=== PATIENT | male | born 1945 | race Caucasian/White ===

== ENCOUNTER 2019-04-27 13:27 | Inpatient (IN) | payer MEDICARE, MEDICAID, SELFPAY ==
[2019-04-27] VITALS (42 sets, daily range): BP systolic 133–163; BP diastolic 68–97; PULSE 65–97; RESP 10–22; TEMP 36.9–37; O2SAT 89–100
[2019-04-27 13:58] LABS: Abs Immature Grans 0.09 k/cumm (0.0-0.09); Absolute Basophil Count 0.04 k/cumm (0.0-0.2); Absolute Eosinophil Count 0.05 k/cumm (0.0-0.7); Absolute Lymphocyte Count 1.57 k/cumm (1.2-3.4); Absolute Monocyte Count 0.55 k/cumm (0.11-0.7); Absolute Neutrophil Count 3.61 k/cumm (1.2-6.7); Basophils % 0.7; Eosinophils % 0.8; HCT 29.6 % (40.0-50.0); HGB 9.3 g/dL (13.5-17.5); Immature Grans % 1.5; Lymphocytes % 26.6; Mean Corp. HGB Concentration 31.4 g/dL (32.0-36.0); Mean Corpuscular Hemoglobin 28.8 pg (27.0-33.0); Mean Corpuscular Volume 91.6 fL (80-95); Mean Platelet Volume 9.6 fL (8.0-11.0); Monocytes % 9.3; Neutrophils % 61.1; Platelet Count 264 x1000/uL (130-400); RBC 3.23 m/cumm (4.50-6.00); RBC Distribution Width 18.5 % (11.8-14.1); White Blood Cell Count 5.91 k/cumm (4.4-10.8)
--- NOTE | 2019-04-27 14:14 | W.ED.GENAD ---
Discharge Plan Disposition Patient Disposition: [facility] INPATIENT Condition: Stable Discharge Details Clinical Impression: Failure to thrive, Increased anion gap metabolic acidosis Primary Care Provider: None,None ED Provider: Marquez Henning Medical Decision Making <Khadar Richards MD - Last Filed: 04/27/19 15:02> 73-year-old male alcoholic presents from home after telling his brother that I cannot do it anymore. He notes that he has generalized weakness, poor self home care, ongoing daily use of alcohol and cigarettes. He states made him feel depressed and at times suicidal but he denies specific plan. He is mildly hypertensive at 163/97 with a pulse of 92. He is somewhat disheveled and poorly kept but his exam is otherwise notable for bilateral rhonchi and wheeze. Differential diagnosis includes electrolyte abnormalities, COPD exacerbation, pneumonia. Must exclude occult IA. Patient placed in a case monitor, fluids initiated, and a DuoNeb updraft and referred for laboratories and chest x-ray. Signed out to Dr. Henning pending patient's final diagnostics and reevaluation. ECG Data Attestation: I personally reviewed and interpreted this ECG (s) as follows: Interpretation: Normal sinus rhythm with a rate of 85, QRS is narrow, no ST segment changes <Marquez Henning MD - Last Filed: 04/27/19 20:58> pt remains stable, he does voice SI to me so I palced an order for cpso. HE remains hd stable. He does have significant general weakness on exam otherwise nothing focal. Labs show log mag and K. HE is having epigastric burning and states he has gastritis/gerd and has no tenderness on exam so likely this is the cause of his symptoms. Will order reflux. He would like something for sleep, will order low dose lorazepam. HE has continued anion gap acidosis. He appears dehydrated so feel it is likely from alcoholic ketosis and dehydration. Will order more fluids. Will see if we have bed availability for medical admissio shawna he can't be medically cleared due to his anion gap acidosis. spoke with Dr. Rosales who agrees with admission to [facility] for failure to thrive and anion gap acidosis HPI <Khadar Richards MD - Last Filed: 04/27/19 15:02> General Mode of arrival: ambulatory. Date/Time Provider Initiated Documentation: 04/27/19 14:01. Limitations to Documentation: no limitations. Information obtained by: patient. History of Present Illness 73 year old M presents to the emergency department with the chief complaint of Generalized weakness and alcohol abuse, described as moderate, Quality is described as dull and constant, and is localized to the abdomen. Patient reports no radiation. Patient started experiencing this hour(s) and it has been constant. No relieving factors improve symptom(s), No exacerbating factors reported . Patient notes loss of appetite and weakness. General Stated Complaint: GenMedical JENNA: 3 Review of Systems <Khadar Richards MD - Last Filed: 04/27/19 15:02> Review of Systems 6 systems reviewed and otherwise negative. Denies recent fall. He states he is depressed. Sometimes becoming suicidal PFSH <Khadar Richards MD - Last Filed: 04/27/19 15:02> Social History Alcohol Intake: current Alcohol Intake frequency: 3 or more drinks per day Substance use type: does not use Do you feel safe at home: Yes Do you feel safe in your relationship?: Yes Exam <Khadar Richards MD - Last Filed: 04/27/19 15:02> Narrative Exam Narrative: GEN: awake, alert, oriented 3. Pleasant, poorly groomed, interactive. HEAD: Normocephalic, atraumatic ENT: Mucous membranes moist, oropharynx unremarkable, External ear exam unremarkable EYES: PERRL, EOMI NECK: Full ROM, no DIANE, no menigismus CHEST/RESP: Nontender, bilateral wheeze and rhonchi CARDIOVASCULAR: RRR, no murmur, rub hadley. 2+ Rad pulse bilateral ABDOMEN: Soft, nontender, no mass. +Bowel sounds EXT: Full ROM, no edema, no rash Neuro: Grossly normal neurologic exam, conversant, interactive. Psych: Speech fluent, thoughts congruent, affect normal Course <Khadar Richards MD - Last Filed: 04/27/19 15:02> Vital Signs Respiratory Rate 04/27/19 13:27 Temperature 37.0 C 04/27/19 13:39 Temperature Source Temporal Artery Scan 04/27/19 13:39 Pulse 84 04/27/19 14:01 Pulse 82 04/27/19 14:01 Respiratory Rate 12 04/27/19 14:01 Respiratory Effort 04/27/19 13:39 Blood Pressure 158/92 H 04/27/19 14:01 Blood Pressure Mean 109 04/27/19 14:01 Pulse Oximetry 100 04/27/19 14:00 Oxygen Delivery Method Room Air 04/27/19 13:39 Oxygen Flow Rate 0 04/27/19 13:39 Sign Out <Khadar Richards MD - Last Filed: 04/27/19 15:02> Sign Out Data: Sign Out Comment: FOllowup diagnostics, repeat evaluation Last updated by Khadar Richards MD at 04/27/19 15:03
--- NOTE | 2019-04-27 14:16 | DI.RAD_ITS ---
SYMPTOM/DIAGNOSIS: COUGH, SOB, ALCOHOLISM CHEST X-RAY: Frontal views. No priors. The heart is normal in size. The lungs are clear. The mediastinal structures and pleura appear intact. CONCLUSION: Normal chest.
[2019-04-27 14:18] LABS: Anisocytosis 1+; Diff Comment RBC Morph Reviewed; Hypochromasia 2+; Polychromasia Present
[2019-04-27] MEDS: Albuterol/Ipratropium 3 ML UPD VIAL UPD (14:29)
[2019-04-27 14:36] LABS: ALT 76 U/L (12-78); AST 141 U/L (15-37); Albumin 3.7 g/dL (3.4-5.0); Alkaline Phosphatase 77 U/L (46-116); Anion Gap 19.4 mmol/L (3-11); BUN 27 mg/dL (7-18); Bilirubin, Total 0.6 mg/dL (0.2-1.0); CO2 21.6 mmol/L (21.0-32.0); CREATININE 1.64 mg/dL (0.70-1.30); Calcium 8.6 mg/dL (8.5-10.1); Chloride 99 mmol/L (98-107); Glucose 81 mg/dL (70-100); Potassium 3.4 mmol/L (3.5-5.1); Sodium 140 mmol/L (136-145)
[2019-04-27 14:41] LABS: Troponin I < 0.05 ng/mL (0.00-0.06)
[2019-04-27] MEDS: MAGNESIUM SULFATE 8.12 MEQ, MULTIVITAMIN 10 ML, THIAMINE 100 MG, FOLIC ACID 1 MG in Nor... 168.867 MG IV (15:22)
--- NOTE | 2019-04-27 16:57 | DI.VRAD_ITS ---
EXAM: XR Chest, 2 Views EXAM DATE/TIME: 04/27/2019 2:18 PM CLINICAL HISTORY: 73 years old, male; Other: Cough and shortness of breath. Alcholism TECHNIQUE: Imaging protocol: XR of the chest, 2 views. COMPARISON: No relevant prior studies available. FINDINGS: Lungs: Unremarkable. No consolidation. Pleural space: Unremarkable. No pleural effusion. No pneumothorax. Heart/Mediastinum: Unremarkable. No cardiomegaly. Vasculature: Atherosclerosis. Bones/joints: Unremarkable. IMPRESSION: No acute finding. Dictated and Authenticated by: Isaias Rivas MD. Ordering:GUSTAVO Rubalcava MD
[2019-04-27 17:01] LABS: ETHANOL BLOOD 153.6 mg/dL (<3); Magnesium 1.2 mg/dL (1.8-2.4); NT-proBNP 425 pg/mL; TSH 0.87 uIU/mL (0.36-3.74)
[2019-04-27 17:55] LABS: ALT 63 U/L (12-78); AST 110 U/L (15-37); Albumin 3.1 g/dL (3.4-5.0); Alkaline Phosphatase 61 U/L (46-116); Anion Gap 19.8 mmol/L (3-11); BUN 24 mg/dL (7-18); Bilirubin, Total 0.3 mg/dL (0.2-1.0); CO2 22.2 mmol/L (21.0-32.0); CREATININE 1.48 mg/dL (0.70-1.30); Calcium 7.6 mg/dL (8.5-10.1); Chloride 101 mmol/L (98-107); Estimated GFR 46.72 (mL/min/1.73m2); Glucose 60 mg/dL (70-100); Potassium 3.1 mmol/L (3.5-5.1); Sodium 143 mmol/L (136-145)
[2019-04-27] MEDS: Ondansetron 4 MG/2 ML VIAL (18:21)
[2019-04-27] MEDS: Normal Saline 1,000 ML 150 ML IV ×2 (18:22→18:30)
--- NOTE | 2019-04-27 19:29 | NUR.NOTE ---
Nursing Note: This scribe arrived on unit at 1820 and assumed care for this patient from previous nurse. Pt was sitting on side of stretcher with brother in trauma room. Pt was pending results for routine labs and pt stated that he would like to receive assistance as he cannot take care of himself at home. Pt is covered in dry fecal matter and his clothes heavily soiled. Pt changed into a pull up as he states sometimes he can't make it to the bathroom in time and into disposable safety clothes. Attempted to scrub patient with cleansing bath wipes. Pt states he hasn't been able to shower himself and that he is afraid to. Pt does admit that he is suicidal but states he doesn't have a plan. He states these thoughts have been ongoing and attributes to the heavy drinking he has been doing. Pt states he lives by himself and that his apartment is very unkempt. Pt denies hallucinations, headache, and no tremors felt. Pt denies having ever tried self harm, no prior attempts. Pt offered food and drink, but pt refused this. Pt moved into a safety room with permission and medical clearance of , with permission to remove from continuous monitoring. Pt is with job coach/job developer at this time. Pending U/A and NEKHS assessment. NOTE: Patient gave a large wad of kee from his rocio pocket to his brother who also took pt's wallet and pt's keys with pt's permission home. This scribe witnessed the exchange and a verbal communication that the brother will go pay the patient's rent with the kee.
[2019-04-27] MEDS: Pantoprazole 40 MG VIAL IVP (20:05)
[2019-04-27] MEDS: LORazepam 2 MG/ML VIAL 0.5 MG IVP (20:06)
[2019-04-27 20:34] LABS: Bilirubin Negative (Negative); Blood Negative (Negative); Clarity Clear (Clear); Glucose Negative (Negative); Ketones 15 mg/dL (Negative); Leukocyte Esterase Negative (Negative); Nitrite Negative (Negative); Specific Gravity 1.015 (1.005-1.025); Urobilinogen 0.2 EU/dL (Up TO 0.2); pH 5.5 (5-8)
[2019-04-27 20:45] LABS: *AMPHETAMINES SCREEN URINE Negative (Negative); *BARBITURATES SCREEN URINE Negative (Negative); *BENZODIAZEPINES SCREEN URINE Negative (Negative); Cannabinoids THC Negative (Negative); Cocaine Screen,Urine Negative (Negative); METHADONE URINE SCREEN Negative (Negative); OPIATES URINE SCREEN Negative (Negative); Tricyclic Antidepressants Negative (Negative)
--- NOTE | 2019-04-27 21:13 | CMSP_ITS ---
- If Service Date Differs Date of service: 04/27/19 Time of Service: 21:13 Care Management Safety Plan Khoi was brought to the ED because he was failing at home. He drinks and smokes daily and struggles to perform ADLs and meet his daily needs. He has indicated that he has had suicidal thoughts at times so CPSO has been ordered. CM will assess patient after patient has been medically cleared and assessed by screener. If screener deems patient meets criteria for psychiatric stabilization CM will facilitate interdepartmental huddle with [facility] screener for safety planning considerations and meet with patient to review [facility] policy and safety plan, establish individual wishes for treatment and maintain patient rights. In the interim; please note safety plan below to guide patient care while awaiting further assessment in the ED. SAFETY PLAN: 1. Will remain on suicide precautions and in paper clothes. 2. Will remain in room under direct supervision of one-on-one staff at all times provided by DALIA, [employer] human resources director; CPSO. 3. May have paper cups, plates, finger foods as well as a metal spoon with which to eat meals. [facility] staff will be responsible for accounting of utensils after meals. 4. Follow [facility] Management of the Admitted Behavioral Health Patient policy. 5. Comfort bath system only. 6. No personal belongings 7. Brother may visit. 8. Phone contact limited to brother. 9. Due to VOLUNTARY status, if patient wishes to leave [facility], the [facility] gospel worker must be contacted to re-evaluate patient prior to patient exiting the building. If deemed appropriate for inpatient psychiatric care, safety plan will be established with patient, and care team, to adhere to patient goals, identify restrictions based on behavioral status, address nutrition, and determine allowed personal belongings, tools for hygiene and personal care. As well plan will determine level of activity including ambulation, level of supervision, visitors, and determine privileges based on level of acuity, behaviors and level of engagement by patient.
[2019-04-27] MEDS: Potassium Chloride 20 MEQ TABCR 40 MEQ PO (21:37)
--- NOTE | 2019-04-27 22:06 | W.PM.HP.N ---
Date of service: 04/27/19 Time of Service: 22:06 Assessment and Plan (1) Alcohol withdrawal: Current visit: Yes Status: Acute Patient had alcohol level of 158 with no clinical intoxication on presentation. With his chronic heavy alcohol use is certainly at risk for sniffing withdrawal, though he denies any history of alcohol withdrawal seizures or delirium tremens. Is been given a banana bag and started on the CIWA protocol. He has responded well to lorazepam up to this point. Given this, we will continue the current protocol without additional scheduled benzodiazepines unless his scores increased. He is currently hypertensive, but suspect this is related to the withdrawal. (2) Alcohol use disorder: Current visit: Yes Status: Acute Patient has had a history of successful rehabilitation and supportive setting. Once he is through with the withdrawal, should be offered both medical and behavioral therapy. (3) Smoking hx: Current visit: Yes Status: Acute He has made quit attempts in the past. Currently he is interested in Nicotrol inhaler. (4) COPD (chronic obstructive pulmonary disease): Current visit: Yes Status: Chronic He previously used a combination ICS and LABA inhaler, but has not been on recent therapy. Written for as needed bronchodilators and will monitor. (5) Renal insufficiency: Current visit: Yes Status: Chronic Patient has not had recent medical care, so is unclear if his renal insufficiency is acute or chronic. His BUN is elevated and he may have been dehydrated on presentation. He has been given fluids and will continue to hydrate him. We will check his postvoid residual. Monitor renal function in the morning. (6) Anemia: Current visit: Yes Status: Chronic Patient has a significant anemia which may get worse with hydration. This may be related to direct toxic effects of alcohol. He is also at risk for iron deficiency and B12 deficiency, and these levels will be checked. Repeat the blood count the morning to assess for acute drop. (7) Increased anion gap metabolic acidosis: Current visit: Yes Status: Acute Patient does have a moderate anion gap of between 19 and 20 despite initial hydration. He is at risk for alcoholic ketoacidosis, though he does not have typical abdominal pain and vomiting. Do not have a history suggest methanol poisoning. We will continue to monitor this with hydration and nutritional therapy. (8) Failure to thrive: Current visit: Yes Status: Acute Patient has generalized weakness that is likely related to chronic alcohol use, poor nutritional intake, deconditioning related to immobility. His profound hypomagnesemia and hypokalemia may also be contributing to muscle weakness. We are repeating these electrolytes. He has a regular diet and will consider nutrition consultation. I have ordered physical therapy to help safely mobilize him. (9) Depression: Current visit: Yes Status: Chronic Patient has significant depression with suicidal ideation the setting of active chronic alcohol use. He does express some hope for the future. I agree with the mental health assessment given his suicidal ideation. (10) DVT prophylaxis: Current visit: Yes Status: Acute Low molecular weight heparin for DVT prophylaxis. We will also give him a PPI given some risk of GI bleed. (11) Discharge planning issues: Current visit: Yes Status: Acute Patient is admitted to the medical floor. Is currently full code. He will need social work consultation to assist with possible rehabilitation and supportive housing options. History of Present Illness Chief Complaint: weakness Narrative: 73 yo M with long history of active alcohol use disorder who was found immobile in his apartment by his brother today. The patient had stopped his usual regular contact with his brother for the past month. The patient states he has been getting gradually weaker and more depressed and isolated over the past several months. He reached out to his brother and his brother brought him in this morning after finding him in an unkept apartment. Patient states he consumes 400 mL of hard liquor per day. His last drink was some sips this morning at 730 to improve the shakes. He has consume this amount for the past months to years. His last. Of sobriety from alcohol use was 6-7 years ago when he was treated at the [facility] and [facility] where he had social supports. He had 967 days without alcohol at that point. Patient denies history of withdrawal seizures or delirium tremens, though he states he did have one seizure in his life that was triggered by taking bupropion for smoking cessation. He does admit significant depression. He states alcohol makes him depressed, but he also did been depressed for most of his life. He describes some recent suicidal ideation. He does also say he feels like he can get better. Review of Systems Review of Systems No fevers or chills. No headache. No vision changes. No mouth sores or trouble swallowing. He has dentures and no teeth. Appetite poor, but not clear weight change. No gland swollen. No bleeding or bruising. Had episode where he might of vomited blood 2 weeks ago, states it might have been roast beef. he does have heartburn, no current nausea or vomiting. No diarrhea or constipation, but states he has had trouble controlling his stool due to general lysed weakness. No blood in the stool or melena. He has a chronic productive cough and wheezing, not currently short of breath. No chest pain or palpitations. No focal joint pain or swelling. He has a generalized muscle weakness but no focal weakness or numbness. No dysuria or hematuria or urinary incontinence. He denies hallucinations. He feels shaky, but no recent seizures. COUNTS INCLUDE 234 BEDS AT THE [facility] Medical History (Updated 04/27/19 @ 22:34 by Prashant Rosales) Alcohol use disorder (Acute) COPD (chronic obstructive pulmonary disease) (Chronic) Smoking hx (Acute) Social History (Updated 04/27/19 @ 22:19 by Prashant Rosales) Smoking/Tobacco Use Status: Current every day Tobacco Type: cigarettes Years smoked: 50 Alcohol Intake: current Alcohol Intake frequency: 3 or more drinks per day Drug use: Never Substance use type: does not use Do you feel safe at home: Yes Do you feel safe in your relationship?: Yes Additional Social history: Lives alone in apartment in [facility] for past ~6 years, closest family brother Owen in [place], [place] 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 No acute distress. Appears recently bathed, but with thick skin buildup on extensor surfaces and dirty nails. HEENT: Normocephalic, atraumatic. Pupils equal round reactive to light with extraocular motions intact and no nystagmus. Mucous members are moist with no oropharyngeal lesions. Neck is supple with no masses or lymphadenopathy thyromegaly. Lungs: Normal effort, but diffusely diminished breath sounds with slight expiratory wheezing throughout. No rales. Cardiovascular: Regular rate and rhythm no murmurs gallops or rubs. Abdomen: Active bowel sounds. Soft, did have twinge of pain during exam, but not consistently tender in abdomen. No organomegaly to palpation or percussion. No other masses. Extremities: No cyanosis clubbing or edema. No joint redness or swelling. Skin: No rashes or open wounds or ulcerations. Thickened skin as noted above. Neurologic: Cranial nerves grossly intact. Slight tremor when holding urinal trying to urinate, none at rest. Able to move all 4 extremities with symmetric strength, but diffuse weakness noted. DTRs 2+ patellar and equal bilaterally. Psychiatric: Mood and affect normal. He does express suicidal ideation. No hallucinations and normal thought process. Results EKG: NSR with PACs, nl axis, intervals. No ST-T abnormalities. Labs : 04/27/19 13:50 04/27/19 17:30 Laboratory Results - last 24 hr 04/27/19 04/27/19 04/27/19 13:50 13:50 14:17 WBC 5.91 RBC 3.23 L Hgb 9.3 L Hct 29.6 L MCV 91.6 MCH 28.8 MCHC 31.4 L RDW 18.5 H Plt Count 264 MPV 9.6 Immature Gran % 1.5 Neutrophils % 61.1 Lymphocytes % 26.6 Monocytes % 9.3 Eosinophils % 0.8 Basophils % 0.7 Absolute Neutrophils 3.61 Absolute Lymphocytes 1.57 Absolute Monocytes 0.55 Absolute Eosinophils 0.05 Absolute Basophils 0.04 Differential Comment Rbc morph reviewed RBC Morphology See below Polychromasia Present Hypochromasia 2+ Anisocytosis 1+ Sodium 140 Cancelled Potassium 3.4 L Cancelled Chloride 99 Cancelled Carbon Dioxide 21.6 Cancelled Anion Gap 19.4 H Cancelled BUN 27 H Cancelled Creatinine 1.64 H Cancelled Estimated GFR/1.73 m2 41.50 Cancelled Glucose 81 Cancelled Calcium 8.6 Cancelled Magnesium Total Bilirubin 0.6 Cancelled AST 141 H Cancelled ALT 76 Cancelled Alkaline Phosphatase 77 Cancelled Troponin I < 0.05 NT-Pro-B Natriuret Pep Total Protein 7.0 Cancelled Albumin 3.7 Cancelled TSH Urine Color Urine Clarity Urine pH Ur Specific [place]den Urine Protein Urine Ketones Urine Blood Urine Nitrite Urine Bilirubin Urine Urobilinogen Ur Leukocyte Esterase Urine Glucose Urine Opiates Screen Urine Methadone Screen Ur Barbiturates Screen Ur Tricyclics Screen Ur Amphetamines Screen U Benzodiazepines Scrn Urine Cocaine Screen Ur THC Screen Ethyl Alcohol 04/27/19 04/27/19 04/27/19 16:25 17:30 20:10 WBC RBC Hgb Hct MCV MCH MCHC RDW Plt Count MPV Immature Gran % Neutrophils % Lymphocytes % Monocytes % Eosinophils % Basophils % Absolute Neutrophils Absolute Lymphocytes Absolute Monocytes Absolute Eosinophils Absolute Basophils Differential Comment RBC Morphology Polychromasia Hypochromasia Anisocytosis Sodium 143 Potassium 3.1 L Chloride 101 Carbon Dioxide 22.2 Anion Gap 19.8 H BUN 24 H Creatinine 1.48 H Estimated GFR/1.73 m2 46.72 Glucose 60 L Calcium 7.6 L Magnesium 1.2 L Total Bilirubin 0.3 AST 110 H ALT 63 Alkaline Phosphatase 61 Troponin I NT-Pro-B Natriuret Pep 425 H Total Protein 6.0 L Albumin 3.1 L TSH 0.87 Urine Color Yellow Urine Clarity Clear Urine pH 5.5 Ur Specific [place]den 1.015 Urine Protein Negative Urine Ketones 15 H Urine Blood Negative Urine Nitrite Negative Urine Bilirubin Negative Urine Urobilinogen 0.2 Ur Leukocyte Esterase Negative Urine Glucose Negative Urine Opiates Screen Urine Methadone Screen Ur Barbiturates Screen Ur Tricyclics Screen Ur Amphetamines Screen U Benzodiazepines Scrn Urine Cocaine Screen Ur THC Screen Ethyl Alcohol 153.6 04/27/19 20:10 WBC RBC Hgb Hct MCV MCH MCHC RDW Plt Count MPV Immature Gran % Neutrophils % Lymphocytes % Monocytes % Eosinophils % Basophils % Absolute Neutrophils Absolute Lymphocytes Absolute Monocytes Absolute Eosinophils Absolute Basophils Differential Comment RBC Morphology Polychromasia Hypochromasia Anisocytosis Sodium Potassium Chloride Carbon Dioxide Anion Gap BUN Creatinine Estimated GFR/1.73 m2 Glucose Calcium Magnesium Total Bilirubin AST ALT Alkaline Phosphatase Troponin I NT-Pro-B Natriuret Pep Total Protein Albumin TSH Urine Color Urine Clarity Urine pH Ur Specific [place]den Urine Protein Urine Ketones Urine Blood Urine Nitrite Urine Bilirubin Urine Urobilinogen Ur Leukocyte Esterase Urine Glucose Urine Opiates Screen Negative Urine Methadone Screen Negative Ur Barbiturates Screen Negative Ur Tricyclics Screen Negative Ur Amphetamines Screen Negative U Benzodiazepines Scrn Negative Urine Cocaine Screen Negative Ur THC Screen Negative Ethyl Alcohol Last Vital Signs Temp 37.0 C 04/27/19 21:35 Pulse 85 04/27/19 21:35 Resp 18 04/27/19 21:35 BP 155/86 H 04/27/19 21:35 Pulse Ox 97 04/27/19 21:35
[2019-04-27] MEDS: Enoxaparin 40 MG/0.4 ML SYR SC (22:52)
[2019-04-27] MEDS: POTASSIUM CHLORIDE/D5-0.45NACL 1,000 ML 150 MEQ IV (22:52)
[2019-04-27] MEDS: LORazepam 2 MG/ML VIAL 1 MG IVP (22:53)
[2019-04-27] MEDS: Normal Saline Flush 10 ML SYR IVP (22:53)
--- NOTE | 2019-04-27 23:16 | NUR.NOTE ---
Patient is admitted to the unit from the ER with history of failure to thrive. On assessment patient is AxOx3. State he is not able to take care of himself at home and he drinks a lot of alcohol at home. State he was vomiting, having dry heaves, passing stool on himself, state he was giving up on his life. He currently states he has thoughts of hurting himself but no actual plan as yet. He has generalize weakness. His lungs sounds are clear, and he's having intermittent moist coughing producing clear secretions. Abdomen round but non-tender presently when palpated, state he was having symptoms of gastritis earlier but he is doing better now. Bilateral pedal pulse felt when palpated.
[2019-04-28] VITALS (11 sets, daily range): BP systolic 105–158; BP diastolic 62–85; PULSE 66–99; RESP 17–20; TEMP 36.3–37.3; O2SAT 94–100
[2019-04-28] MEDS: POTASSIUM CHLORIDE/D5-0.45NACL 1,000 ML 150 MEQ IV ×3 (05:15→19:49)
[2019-04-28 07:32] LABS: HCT 23.1 % (40.0-50.0); HGB 7.3 g/dL (13.5-17.5); Mean Corp. HGB Concentration 31.6 g/dL (32.0-36.0); Mean Corpuscular Hemoglobin 29.2 pg (27.0-33.0); Mean Corpuscular Volume 92.4 fL (80-95); Mean Platelet Volume 9.8 fL (8.0-11.0); Platelet Count 179 x1000/uL (130-400); RBC Distribution Width 17.8 % (11.8-14.1)
[2019-04-28 07:59] LABS: Anion Gap 10.6 mmol/L (3-11); BUN 18 mg/dL (7-18); CO2 24.4 mmol/L (21.0-32.0); CREATININE 1.24 mg/dL (0.70-1.30); Calcium 6.7 mg/dL (8.5-10.1); Chloride 104 mmol/L (98-107); Glucose 129 mg/dL (70-100); Magnesium 1.1 mg/dL (1.8-2.4); Potassium 3.7 mmol/L (3.5-5.1); Sodium 139 mmol/L (136-145)
[2019-04-28 08:02] LABS: Iron 39 ug/dL (50-175); Total Iron Binding Capacity 268 ug/dL (250-450); Transferrin Sat 15 % (20-55)
[2019-04-28] MEDS: Pantoprazole 40 MG TABCR PO (08:18)
[2019-04-28] MEDS: Magnesium Chloride 64 MG TABCR PO (08:19)
[2019-04-28] MEDS: Folic Acid 1 MG TAB PO (08:19)
[2019-04-28] MEDS: Multivitamin TAB 1 TAB PO (08:19)
[2019-04-28] MEDS: Thiamine 100 MG TAB PO (08:19)
[2019-04-28 08:40] LABS: Vitamin B12 279 pg/mL (193-986)
[2019-04-28 08:52] LABS: PHOSPHORUS 2.4 mg/dL (2.6-4.7)
[2019-04-28] MEDS: MAGNESIUM SULFATE 4 GM/100 ML BAG IVPB (12:16)
--- NOTE | 2019-04-28 12:37 | IN_ITS ---
Date of service: 04/28/19 Time of Service: 09:57 PT Notes Inpatient Physical Therapy Evaluation Date: 04/28/2019 Referring Doctor: Prashant Rosales MD PT Orders: PT CONSULT: 73-year-old chronic alcoholic found immobile for past months with with acidosis and electrolyte abnormalities. Please assess for safety, mobility, deconditioning. Precautions: Fall. Standard. Patient Profile/Admitting Diagnosis: Patient is a 73-year-old male with a past medical history significant for alcohol abuse and COPD who presented to the ED on 04/27/2019 with chief complaints of failure to thrive, generalized weakness, poor self home care and ongoing uncontrollable daily use of alcohol and cigarettes. Patient is diagnosed with alcohol withdrawal, COPD, renal insufficiency, anemia, metabolic acidosis, failure to thrive, and depression. PMHX: Medical History (Updated 04/27/19 @ 22:34 by Prashant Rosales) 19 Alcohol use disorder (Acute) COPD (chronic obstructive pulmonary disease) (Chronic) Smoking hx (Acute) Social History/Home Situation: Patient lives alone in an aprtment with 15 steps to get in with a rail on the right going up. He was independent with all aspects of ADLs without the need for an assistive ambulatory device nor adaptive equipment although he stated that recently it has been very difficult to do so due to weakness and uncontrolled alcoholism. Current Functional Limitations: Need for assistance for all transfer front wheeled walker. Equipment Owned/DME: None but will need a FWW. Subjective: Patient needed considerable encouragement to participate in evaluation at the start but somehow began to get interested with walking towards the middle of the session. He denies dizziness, chest pain, palpitations, and shortness of breath after ambulation activity. He still complains of being weak and being tired from not being able to sleep well last night. Objective: General Observation: Patient seen resting in bed, sleepy. IV in L UE. In paper clothing. Mental Status: Alert and oriented x 4 Pain: 0/10 ROM: Right Upper Extremity: Shoulder Flexion WFL. Shoulder abduction WFL. Elbow flexion WFL. Wrist flexion WFL. Functional opening and closing of hand WFL. Left Upper Extremity: Shoulder Flexion WFL. Shoulder abduction WFL. Elbow flexion WFL. Wrist flexion WFL. Functional opening and closing of hand WFL. Right Lower Extremity: Hip flexion WFL. Hip abduction WFL. Knee flexion WFL. Ankle dorsiflexion WFL. Ankle plantarflexion WFL. Left Lower Extremity: Hip flexion WFL. Hip abduction WFL. Knee flexion WFL. Ankle dorsiflexion WFL. Ankle plantarflexion WFL. Strength: Right Upper Extremity: Shoulder flexors 5/5. Shoulder abductors 5/5. Elbow flexors 5/5. Elbow extensors 5/5. Strategic Consultant strong. Left Upper Extremity: Shoulder flexors 5/5. Shoulder abductors 5/5. Elbow flexors 5/5. Elbow extensors 5/5. Strategic Consultant strong. Right Lower Extremity: Hip flexors 5/5. Hip abductors 5/5. Knee flexors 5/5. Knee extensors 5/5. Ankle dorsiflexors 5/5. Ankle plantarflexors 5/5. Left Lower Extremity:Hip flexors 5/5. Hip abductors 5/5. Knee flexors 5/5. Knee extensors 5/5. Ankle dorsiflexors 5/5. Ankle plantarflexors 5/5. Sensation: Intact as to pain and pressure on bilateral lower extremities. Bed Mobility/Transfers: Rolling supervision Supine to sit supervision Sit to supine supervision Sit to stand SBA Stand to sit SBA Bed to chair SBA Chair to bed SBA Gait: Patient was able to tolerate level surface ambulation with front wheeled walker with FWB and CGA office PT of up to 100 feet x 2 with decreased step height and length observed as well as decreased gait velocity. BUTTON SAWYER assisted with IV pole management and wheelchair follow for overall safety. Minimal brian bal cueing needed during turning and for safe walker management. Balance: Static Sitting: Good Dynamic Sitting: Good Static Standing: Good Dynamic Standing: Fair Special Tests: Mobility Limitations Standardized Measure [facility] AM-PAC 6 clicks Basic Mobility Inpatient Short Form: Raw Score: 20 CMS Score: 36% deficit Informed Consent/Education: Patient instructed in purpose of PT consult and plan of care. Assessment: Patient presents with clinical signs and symptoms consistent with current/admitting diagnoses that have resulted to mobility limitations, gait instability, generalized weakness, and impairment of motor control as demonstrated by the following impairment level findings: 1. Decreased strength to B LE major muscle groups 2. Impaired sitting/standing balance 3. Impaired activity tolerance Impairments are contributing to the following functional limitations: 1. Dependent bed mobility skills 2. Increased dependence with transfers 3. Inability to safely ambulate without assistive device and physical assistance 4. Increase completion time for mobility ADL performance 5. Increased fall risk 6. Inability to negotiate steps alone safely Patient is assessed as a 19191 moderate complexity based on the following: History: 73-year-old male with diagnosis of alcohol withdrawal, COPD, renal insufficiency, anemia, anion gap metabolic acidosis, failure to thrive, and depression with premorbid independent level but with low motivation Examination: Demonstrable impairment in strength, balance, and range of motion with underlying impairments and functional limitations as documented above Presentation:Evolving Decision Makin moderate complexity Goals: Goals X1 week 1. Supine-Sit independent 2. Sit-Supine independent 3. Sit-Stand independent 4. Stand-Sit independent 5. Bed-Chair independent 6. Chair-Bed independent 7. Independent gait on level surface with use of least restrictive device for at least 300 feet without report of pain nor dyspnea 8. Independent stair negotiation while holding onto bilateral rails for at least 15 steps without report of pain nor dyspnea 9. Independent with home exercise program 10. Good static and dynamic standing balance/tolerance Plan of Care/Treatment Plan: 1-2x/day, 7 days/week x 1 week. Plan of care has been reviewed with the SNOW GROOMER providing the service under Physical Therapy direction. Initiate Physical Therapy intervention for strengthening, bed mobility, transfers, gait, stairs, balance training, use of assistive device. DISCHARGE RECOMMENDATIONS: Patient will need a front wheeled walker in order to maximize mobility level and reduce fall risk at discharge destination. Patient may benefit from long-term facility placement in order to progress mobility lev el, strength, and balance in preparation for a safe discharge to home. TREATMENT CODE/TIME: 59209 x 34 minutes beginning at 9:57 AM. Thank you very much for this referral. Franchesca Hawley PT, DPT, CLT [facility]
[2019-04-28 12:49] LABS: HCT 25.9 % (40.0-50.0)
--- NOTE | 2019-04-28 12:54 | PHARADMIT ---
Addendum entered by Vidal Diaz III 05/01/19 11:36: Pharmacy Note Subjective Patient condition related to chronic ETOH use poor nutrition, and deconditioning. Surgical consult recommends EGD (later today) Objective BP-142/84 HR-93 Na-136 K+4.5 Assessment No Med changes yet. Plan Possible discharge today following EGD pending results. Original Note: Admission Pharmacy Clinical Review FAILURE to THRIVE, ANION GAP ACIDOSIS Code Status Full Code Current Weight Wgt-70.8 kg Renally Cleared and Narrow Therapeutic Index Meds CrCl~ 46mL/min Meds-OK QTc Value / Action Taken QTc-433 NA BP Control, Fever BP- 130/76 Tmax- 37.3C Electrolytes reviewed Na-139 K+3.7 Mag-1.1 DVT Prophylaxis Lovenox 40mg Opiate Usage / Scheduled Bowel Regimen Ordered No No Plt/SCr for Heparin / Enoxaparin Plts-179 SCr-1.24 INR for Warfarin NA H/H stable, WBC/Bands H&H- 7.3/21.1 WBC- 3.70 Antibiotic appropriateness none Cultures and Sensitivities none Surgical ABX d/c within 24 hr na DM control / Insulin Dosing BG-129 Heart Failure (Check EF%) (SONIYA's, B-Block, Diuretics) none IV to PO Switch No Home Meds Reviewed Yes Home Meds Not Ordered No known Comments ETOH-153 (on admission) On CIWA protocol
--- NOTE | 2019-04-28 12:58 | PDOC.MHCN_ITS ---
Date of service: 04/28/19 Time of Service: 12:58 Mental Health Crisis Note Presenting Issue How did you arrive at the ED and why did you come: Patient is brought to the ED by his brother after he tells him that he can't live like this anymore. [facility] contacts [facility] emergency services to request an assessment. Precipitating Factors Patient reports depression and suicidal ideation without plan. He discusses his history of alcohol use and says it's caught up with me. He shares that he has no one and is tired of living the way he is living. He reports drinking approximately a fifth of LTD every day over the past several months. He feels hopeless and has given up. Disposition BEHAVIOR: Cooperative. EYE CONTACT: Intermittent. MOOD: Depressed. AFFECT: Congruent to mood. APPETITE: Reported as poor. SLEEP(trouble falling/staying asleep: Good. Plan Plan is to seek a voluntary hospitalization to stabilize his mood and address his substance abuse issues. [facility], we will need to wait until he is medically cleared before referrals can be sent to [facility]. Signature Clinician's Name/Title: Nia Holley BA [facility] Senior Computer Specialist
--- NOTE | 2019-04-28 13:46 | W.PM.PROGNOT ---
Date of Service Date of service: 04/28/19 Time of Service: 13:46 Assessment and Plan (1) Alcohol withdrawal: Current visit: Yes Status: Acute CIWA scores have been 0. He denies history of alcohol withdrawal seizures. I am seeing that he starting to get mildly tremulous and think that he is starting to withdraw. Continue CIWA monitoring with prn benzos, as well as banana bag, IV thiamine. (2) Alcohol use disorder: Current visit: Yes Status: Acute Ideally, the patient would participate in alcohol rehab once he is medically/psychiatrically cleared. (3) Smoking hx: Current visit: Yes Status: Acute Continue Nicotrol inhaler. (4) COPD (chronic obstructive pulmonary disease): Current visit: Yes Status: Chronic Continue as needed bronchodilators. Not presently in acute exacerbation. CXR clear. (5) Renal insufficiency: Current visit: Yes Status: Chronic Improved. Etiology is likely mixed - likely due to dehydration in addition to mild urinary retention. Continue to monitor. Undergoing voiding trial with Q6 PVRs. (6) Anemia: Current visit: Yes Status: Chronic H/H did drop from 9.3/29.6 to 7.3/23.1 on this am's labs. Repeat H/H is 8.0/25.9, however. There is no evidence of acute bleeding. He is B12 deficient. I ordered add on ferritin and folate levels, but these do not appear to have been done. Checking hemoccult. PPI empirically increased to BID. Start B12 repletion. (7) Increased anion gap metabolic acidosis: Current visit: Yes Status: Acute Patient does have a moderate anion gap of between 19 and 20 despite initial hydration - likely alcoholic ketoacidosis. His anion gap has closed today, and he is no longer acidotic. (8) Failure to thrive: Current visit: Yes Status: Acute Patient has generalized weakness that is likely related to chronic alcohol use, poor nutritional intake, deconditioning related to immobility. His profound hypomagnesemia and hypokalemia may also be contributing to muscle weakness. PT/OT consulted. Electrolytes continue to be repleted. (9) Depression: Current visit: Yes Status: Chronic Would benefit from inpatient psychiatric stabilization on voluntary basis due to expression of suicidal ideation - once medically cleared. (10) Hypomagnesemia: Current visit: Yes Status: Acute Replete and monitor. (11) Hypokalemia: Current visit: Yes Status: Resolved Continue to monitor; also, repleting magnesium. (12) DVT prophylaxis: Current visit: Yes Status: Acute I think it is ok to continue Low molecular weight heparin for DVT prophylaxis as long as hemoccult is negative. PPI increased to BID. (13) Discharge planning issues: Current visit: Yes Status: Acute Patient is admitted to the medical floor. Is currently full code. Patient is in agreement with transfer to the [place]. Subjective Interval history since last seen: Mr Calero states he is feeling sad. He was evaluated by mental health due to his suicidal ideation. While he denies having a suicidal plan, he continues to endorse suicidal thoughts and is felt to benefit from psychiatric stabilization on voluntary basis, to which he agrees. CIWA scores have been 0 since admission. He denies dizziness, chest pain, endorses his chronic shortness of breath from COPD and nonproductive cough, denies nausea/vomiting. He feels weak and tired. Exam Narrative Exam Narrative: General: very pleasant elderly male, mildly tremulous, A&OX3, appears tired/weak, sitting up at the edge of the bed HEENT: EOMI, MMM Heart: RRR, no m/r/g Lungs: quiet rhonchi B GI: abdomen is soft, nontender, nondistended Extremities: trace edema at B ankles Objective Objective Clinical Data: Abnormal lab results 04/27/19 04/27/19 04/27/19 Range/Units 13:50 13:50 16:25 WBC (4.4-10.8) k/cumm RBC 3.23 L (4.50-6.00) m/cumm Hgb 9.3 L (13.5-17.5) g/dL Hct 29.6 L (40.0-50.0) % MCHC 31.4 L (32.0-36.0) g/dL RDW 18.5 H (11.8-14.1) % Potassium 3.4 L (3.5-5.1) mmol/L Anion Gap 19.4 H (3-11) mmol/L BUN 27 H (7-18) mg/dL Creatinine 1.64 H (0.70-1.30) mg/dL Glucose (70-100) mg/dL Calcium (8.5-10.1) mg/dL Phosphorus (2.6-4.7) mg/dL Magnesium 1.2 L (1.8-2.4) mg/dL Iron (50-175) ug/dL Transferrin % Sat (20-55) % AST 141 H (15-37) U/L NT-Pro-B Natriuret Pep 425 H ( - 299) pg/mL Total Protein (6.4-8.2) g/dL Albumin (3.4-5.0) g/dL Urine Ketones (Negative) mg/dL 04/27/19 04/27/19 04/28/19 Range/Units 17:30 20:10 06:50 WBC (4.4-10.8) k/cumm RBC (4.50-6.00) m/cumm Hgb (13.5-17.5) g/dL Hct (40.0-50.0) % MCHC (32.0-36.0) g/dL RDW (11.8-14.1) % Potassium 3.1 L (3.5-5.1) mmol/L Anion Gap 19.8 H (3-11) mmol/L BUN 24 H (7-18) mg/dL Creatinine 1.48 H (0.70-1.30) mg/dL Glucose 60 L 129 H (70-100) mg/dL Calcium 7.6 L 6.7 L (8.5-10.1) mg/dL Phosphorus 2.4 L (2.6-4.7) mg/dL Magnesium 1.1 L (1.8-2.4) mg/dL Iron (50-175) ug/dL Transferrin % Sat (20-55) % AST 110 H (15-37) U/L NT-Pro-B Natriuret Pep ( - 299) pg/mL Total Protein 6.0 L (6.4-8.2) g/dL Albumin 3.1 L (3.4-5.0) g/dL Urine Ketones 15 H (Negative) mg/dL 04/28/19 04/28/19 04/28/19 Range/Units 06:50 06:50 12:20 WBC 3.70 L D (4.4-10.8) k/cumm RBC 2.50 L (4.50-6.00) m/cumm Hgb 7.3 L 8.0 L (13.5-17.5) g/dL Hct 23.1 L D 25.9 L (40.0-50.0) % MCHC 31.6 L (32.0-36.0) g/dL RDW 17.8 H (11.8-14.1) % Potassium (3.5-5.1) mmol/L Anion Gap (3-11) mmol/L BUN (7-18) mg/dL Creatinine (0.70-1.30) mg/dL Glucose (70-100) mg/dL Calcium (8.5-10.1) mg/dL Phosphorus (2.6-4.7) mg/dL Magnesium (1.8-2.4) mg/dL Iron 39 L (50-175) ug/dL Transferrin % Sat 15 L (20-55) % AST (15-37) U/L NT-Pro-B Natriuret Pep ( - 299) pg/mL Total Protein (6.4-8.2) g/dL Albumin (3.4-5.0) g/dL Urine Ketones (Negative) mg/dL Vital Signs Temperature 37.3 C 04/28/19 12:27 Temperature Source Tympanic 04/28/19 12:27 Pulse 88 04/28/19 12:27 Pulse Rhythm Regular 04/27/19 21:53 Pulse 76 04/27/19 18:10 Respiratory Rate 18 04/28/19 12:27 Respiratory Effort Non-Labored 04/27/19 21:53 Respiratory Depth Normal 04/27/19 21:53 Respiratory Pattern Normal 04/27/19 21:53 Blood Pressure 130/76 04/28/19 12:27 Blood Pressure Mean 103 04/27/19 16:01 Pulse Oximetry 98 04/28/19 12:27 Respiratory End-tidal CO2 35 04/27/19 16:20 Oxygen Delivery Method Room Air 04/28/19 12:27 Oxygen Flow Rate 0 04/28/19 12:27 Pain Level 0 04/28/19 12:27 Intake & Output 04/27/19 04/28/19 04/28/19 23:59 11:59 23:59 Intake Total 4420.7 / 4660.7 240 / 4660.7 Output Total 1150 / 1150 Balance 3270.7 / 3510.7 240 / 3510.7 Weight 70.307 kg 70.8 kg Intake: IV 3970.7 / 3970.7 Oral 450 / 690 240 / 690 Output: Urine 1150 / 1150 Other: Urine Color Yellow Urine Appearance Clear Cloudy Urine Odor Normal Comment straight cath patient to empty bladder Voiding Methods Toilet Laboratory Results WBC 3.70 k/cumm (4.4-10.8) L D 04/28/19 06:50 RBC 2.50 m/cumm (4.50-6.00) L 04/28/19 06:50 Hgb 8.0 g/dL (13.5-17.5) L 04/28/19 12:20 Hct 25.9 % (40.0-50.0) L 04/28/19 12:20 MCV 92.4 fL (80-95) 04/28/19 06:50 MCH 29.2 pg (27.0-33.0) 04/28/19 06:50 MCHC 31.6 g/dL (32.0-36.0) L 04/28/19 06:50 RDW 17.8 % (11.8-14.1) H 04/28/19 06:50 Plt Count 179 x1000/uL (130-400) 04/28/19 06:50 MPV 9.8 fL (8.0-11.0) 04/28/19 06:50 Immature Gran % 1.5 04/27/19 13:50 61.1 04/27/19 13:50 26.6 04/27/19 13:50 9.3 04/27/19 13:50 0.8 04/27/19 13:50 0.7 04/27/19 13:50 Absolute Neutrophils 3.61 k/cumm (1.2-6.7) 04/27/19 13:50 Absolute Lymphocytes 1.57 k/cumm (1.2-3.4) 04/27/19 13:50 Absolute Monocytes 0.55 k/cumm (0.11-0.7) 04/27/19 13:50 Absolute Eosinophils 0.05 k/cumm (0.0-0.7) 04/27/19 13:50 Absolute Basophils 0.04 k/cumm (0.0-0.2) 04/27/19 13:50 Rbc morph reviewed 04/27/19 13:50 RBC Morphology See below 04/27/19 13:50 Present 04/27/19 13:50 2+ 04/27/19 13:50 1+ 04/27/19 13:50 Sodium 139 mmol/L (136-145) 04/28/19 06:50 Potassium 3.7 mmol/L (3.5-5.1) 04/28/19 06:50 Chloride 104 mmol/L (98-107) 04/28/19 06:50 Carbon Dioxide 24.4 mmol/L (21.0-32.0) 04/28/19 06:50 10.6 mmol/L (3-11) 04/28/19 06:50 BUN 18 mg/dL (7-18) D 04/28/19 06:50 1.24 mg/dL (0.70-1.30) 04/28/19 06:50 57.30 (mL/min/1.73m2) 04/28/19 06:50 Glucose 129 mg/dL (70-100) H 04/28/19 06:50 Calcium 6.7 mg/dL (8.5-10.1) L 04/28/19 06:50 Phosphorus 2.4 mg/dL (2.6-4.7) L 04/28/19 06:50 Magnesium 1.1 mg/dL (1.8-2.4) L 04/28/19 06:50 Iron 39 ug/dL (50-175) L 04/28/19 06:50 TIBC 268 ug/dL (250-450) 04/28/19 06:50 Transferrin % Sat 15 % (20-55) L 04/28/19 06:50 0.3 mg/dL (0.2-1.0) 04/27/19 17:30 AST 110 U/L (15-37) H 04/27/19 17:30 ALT 63 U/L (12-78) 04/27/19 17:30 61 U/L (46-116) 04/27/19 17:30 < 0.05 ng/mL (0.00-0.06) 04/27/19 13:50 NT-Pro-B Natriuret Pep 425 pg/mL (-299) H 04/27/19 16:25 6.0 g/dL (6.4-8.2) L 04/27/19 17:30 3.1 g/dL (3.4-5.0) L 04/27/19 17:30 Vitamin B12 279 pg/mL (193-986) 04/28/19 06:50 TSH 0.87 uIU/mL (0.36-3.74) 04/27/19 16:25 Yellow (Yellow) 04/27/19 20:10 Clear (Clear) 04/27/19 20:10 5.5 (5-8) 04/27/19 20:10 Ur Specific [place] 1.015 (1.005-1.025) 04/27/19 20:10 Negative mg/dL (Negative) 04/27/19 20:10 15 mg/dL (Negative) H 04/27/19 20:10 Negative (Negative) 04/27/19 20:10 Negative (Negative) 04/27/19 20:10 Negative (Negative) 04/27/19 20:10 0.2 EU/dL (Up TO 0.2) 04/27/19 20:10 Ur Leukocyte Esterase Negative (Negative) 04/27/19 20:10 Negative mg/dL (Negative) 04/27/19 20:10 Negative (Negative) 04/27/19 20:10 Negative (Negative) 04/27/19 20:10 Ur Barbiturates Screen Negative (Negative) 04/27/19 20:10 Ur Tricyclics Screen Negative (Negative) 04/27/19 20:10 Ur Amphetamines Screen Negative (Negative) 04/27/19 20:10 U Benzodiazepines Scrn Negative (Negative) 04/27/19 20:10 Negative (Negative) 04/27/19 20:10 Ur THC Screen Negative (Negative) 04/27/19 20:10 Ethyl Alcohol 153.6 mg/dL (<3) 04/27/19 16:25
--- NOTE | 2019-04-28 14:29 | PTTR_ITS ---
Date of service: 04/28/19 Time of Service: 14:30 PT Notes Inpatient Physical Therapy Treatment Note [facility] Date: 04/28/19 PRECAUTIONS: Fall SUBJECTIVE: Khoi states I just want to get out of this bed and take a walk. OBJECTIVE: PAIN: No c/o pain BED MOBILITY/TRANSFERS Supine-sit: I Sit-supine: I Sit-stand: SBA Stand-sit: SBA GAIT Assistive Device: No AD Weight bearing: Full Assist: CGA/GREENHOUSE OR NURSERY TRANSPLANTER Distance: 200' Deviation: Stand rest x1 Static standing with B UE support x2 minutes with SBA ASSESSMENT: Patient requested to walk without assistive device, although relied heavily on GREENHOUSE OR NURSERY TRANSPLANTER support. He would benefit from use of FWW with gait for safety and improved steadiness. PLAN: Continue with PT's POC TREATMENT CODE/TIME: 15 minutes; [address]5460
--- NOTE | 2019-04-28 19:15 | INITIAL_ITS ---
- If Service Date Differs Date of service: 04/28/19 Time of Service: 19:15 Care Management Initial Assess REASON FOR HOSPITALIZATION:: Psychiatric stabilization, SI and history of ETOH PAST MEDICAL HISTORY/PAST SURGICAL HISTORY:: Depression, renal insufficiency, ETOH abuse, COPD, tobacco use. PREVIOUS FUNCTIONAL STATUS/SOCIAL/FAMILY SUPPORTS:: Khoi lives alone in an apartment in [facility] he was in both the [employer] and the [employer]. He has a brother that is supportive and lives in [place]. Khoi is indepedent with ADL's and meals. CURRENT FUNCTIONAL STATUS:: Khoi is alert he is engaged with his brother during the visit he is able to answer CM questions. He expresses thoughts of SI and states it has been more difficult for him to be home. He was visited by his brother yesterday Owen who arrived and found him at home in poor living conditions. ADVANCE DIRECTIVES:: None on file unable to complete today Has patient been provided with information about the portal?: Yes Did the patient sign up for the portal?: No CODE STATUS:: Full Code INSURANCE COVERAGE / FINANCIAL ISSUES:: Medicaid and Medicare CURRENT HOME/COMMUNITY SERVICES/EQUIPMENT:: None PRIMARY CARE PHYSICIAN:: POTENTIAL DISCHARGE NEEDS:: Transfer to psychiatric center for stablization PATIENT/FAMILY EDUCATION NEEDS:: Education provided mental health, saftey plan, expectation, and next level of care expecation. CM provided education to patient and his brother. ANTICIPATED BARRIERS TO DISCHARGE:: Accepting facility and medical clearance to be transfered TRANSPORTATION:: [facility] vs carpenter helper maintenance coordinated by pending disposition PLAN:: Khoi will be transfered to the [facility] once bed is available for medical and psychiatric treatment. CM contacted [facility] and [facility] concerning [facility] situation he is concerend that his house is not clean and filled with alcohol bottles he does not want to return to home from rehab to have them there. CM reviewed with [facility], CM and she suggest contating APS for support CM will also send a referral to [facility] connections for assistance.
[2019-04-28] MEDS: Pantoprazole 40 MG VIAL IVP (19:29)
[2019-04-28] MEDS: Normal Saline Flush 10 ML SYR IVP (19:29)
[2019-04-28] MEDS: Magnesium Chloride 64 MG TABCR 128 MG PO (19:29)
--- NOTE | 2019-04-28 19:29 | CMSP_ITS ---
- If Service Date Differs Date of service: 04/28/19 Time of Service: 19:30 Care Management Safety Plan [facility] He continues to express SI, denies a plan and is willing to go to treatment for stabilization. [place] is willing to accept him as a medical patient concerns for alcohol withdrawal and [facility] is awaiting appropriate bed availability. Khoi's brother is supportive he was able to pay his rent today and electric bill. He also brought in his wallet it and assignment manager from home for his phone. Plan will be for Khoi to be transferred to the [place] on Saturday pending bed availability. Safety plan has been put into place and reviewed with patient, mental health and primary nurse. Plan has been communicated to MD BIANCA and RN supervisor maple products VOLUNTARY FOR INPATIENT PSYCHIATRIC STABILIZATION. Patient is appropriate in all interactions since arriving at [facility]; Pt has demonstrated appropriate coping and communication skills, has articulated his needs and concerns and is fully engaged during staff interactions. Safety plan has been established with patient, and care team, to adhere to patient goals, identify restrictions based on behavioral status, address nutrition, and determine allowed personal belongings, tools for hygiene and personal care. Determine level of activity including ambulation, level of supervision, visitors, and determine privileges based on behaviors and level of engagement by pt. SAFETY PLAN: 1. Will remain on suicide precautions. In Paper Clothes 2. Will remain in room under direct supervision of one-on-one staff at all times provided by CPSO; DALIA, CROP PICKER formation testing operator. 3. May have paper cups, plates, finger foods as well as a metal spoon with which to eat meals. [facility] staff will be responsible for accounting of utensils after meals. 4. Follow [facility] Management of the Admitted Behavioral Health Patient policy. 5. Comfort bath system or shower with CPSO supervision and at the discretion of the primary team. 6. Cell phone may be in the room no cords 7. Visitors-brother Owen 8. Activities: TC, Crayons, coloring, wireless headphones, music tablet. Khoi may ambulate with CPSO and PT in the halls. 9. Bathroom privileges 10. Due to VOLUNTARY status, if patient wishes to leave [facility], the [facility] rag production worker must be contacted to re-evaluate patient prior to patient exiting the building. Patient is currently voluntarily at [facility] and seeking inpatient admission at the [place] when a bed becomes available. [facility] Frontline Manager Of Information will continue seeking placement. Please contact the Meter Shop Superintendent Dyed Yarn Operator ([phone]) and [facility] Manager Of Information ([phone]) for any needed changes in the Safety Plan. Safety plan has been provided to interdepartmental care team.
[2019-04-28] MEDS: Enoxaparin 40 MG/0.4 ML SYR SC (21:16)
[2019-04-28] MEDS: LORazepam 1 MG TAB PO (21:16)
[2019-04-29] VITALS (16 sets, daily range): BP systolic 119–161; BP diastolic 65–98; PULSE 72–94; RESP 16–20; TEMP 36.3–37.3; O2SAT 96–100
[2019-04-29] MEDS: POTASSIUM CHLORIDE/D5-0.45NACL 1,000 ML 150 MEQ IV ×3 (01:21→21:14)
[2019-04-29 07:10] LABS: Abs Immature Grans 0.04 k/cumm (0.0-0.09); Absolute Basophil Count 0.01 k/cumm (0.0-0.2); Absolute Eosinophil Count 0.06 k/cumm (0.0-0.7); Absolute Lymphocyte Count 0.95 k/cumm (1.2-3.4); Absolute Monocyte Count 0.51 k/cumm (0.11-0.7); Absolute Neutrophil Count 1.97 k/cumm (1.2-6.7); Basophils % 0.3; Eosinophils % 1.7; HCT 22.3 % (40.0-50.0); Immature Grans % 1.1; Lymphocytes % 26.8; Mean Corp. HGB Concentration 30.9 g/dL (32.0-36.0); Mean Corpuscular Hemoglobin 29.1 pg (27.0-33.0); Mean Corpuscular Volume 94.1 fL (80-95); Mean Platelet Volume 9.1 fL (8.0-11.0); Monocytes % 14.4; Neutrophils % 55.7; Platelet Count 159 x1000/uL (130-400); RBC 2.37 m/cumm (4.50-6.00); White Blood Cell Count 3.54 k/cumm (4.4-10.8)
[2019-04-29 07:22] LABS: Anion Gap 9.8 mmol/L (3-11); BUN 13 mg/dL (7-18); CO2 23.2 mmol/L (21.0-32.0); CREATININE 1.21 mg/dL (0.70-1.30); Calcium 6.9 mg/dL (8.5-10.1); Chloride 104 mmol/L (98-107); Estimated GFR 58.95 (mL/min/1.73m2); Glucose 121 mg/dL (70-100); Magnesium 1.5 mg/dL (1.8-2.4); Potassium 4.3 mmol/L (3.5-5.1); Sodium 137 mmol/L (136-145)
[2019-04-29 07:36] LABS: HGB 6.9 g/dL (13.5-17.5)
[2019-04-29] MEDS: Cyanocobalamin 500 MCG TAB 1000 MCG PO (08:16)
[2019-04-29] MEDS: Multivitamin TAB 1 TAB PO (08:16)
[2019-04-29] MEDS: Thiamine 100 MG TAB PO (08:16)
[2019-04-29] MEDS: Folic Acid 1 MG TAB PO (08:16)
[2019-04-29] MEDS: Magnesium Chloride 64 MG TABCR 128 MG PO ×2 (08:16→19:34)
[2019-04-29] MEDS: Pantoprazole 40 MG VIAL IVP ×2 (08:17→19:36)
[2019-04-29] MEDS: Normal Saline Flush 10 ML SYR IVP ×2 (08:22→13:28)
--- NOTE | 2019-04-29 11:16 | PT.INNT ---
Date of service: 04/29/19 Time of Service: 11:16 PT Notes 04/29/19 Hold morning PT session due to low H/H lab values. Will attempt to resume PT services this afternoon, if appropriate.
[2019-04-29] MEDS: Acetaminophen 325 MG TAB 650 MG PO (13:27)
[2019-04-29] MEDS: diphenhydrAMINE 25 MG CAP PO (13:28)
--- NOTE | 2019-04-29 14:05 | PT.INNT ---
Date of service: 04/29/19 Time of Service: 14:05 PT Notes 04/29/19 Continue to hold PT, as patient has not received blood transfusion at this time. Will attempt to resume PT services tomorrow morning.
--- NOTE | 2019-04-29 16:59 | PGE_ITS ---
Date of Service Date of service: 04/29/19 Time of Service: 17:00 Assessment and Plan (1) Anemia: Current visit: Yes Status: Chronic Acute on chronic; s/p transfusion of 1 unit of pRBC's. As reports hematemesis 2-3 weeks ago, will consult surgery. Hematest ordered, pending. Continue IV PPI BID. No evidence of active bleeding. Abstain from chemical DVT ppx until more information is available. Replete b12. (2) Alcohol withdrawal: Current visit: Yes Status: Acute Denies history of alcohol withdrawal seizures. Continue CIWA monitoring with prn benzos, as well as banana bag, IV thiamine. (3) Alcohol use disorder: Current visit: Yes Status: Acute Ideally, the patient would participate in alcohol rehab once he is medically/psychiatrically cleared. (4) Smoking hx: Current visit: Yes Status: Acute Continue Nicotrol inhaler. (5) COPD (chronic obstructive pulmonary disease): Current visit: Yes Status: Chronic Continue as needed bronchodilators. Not presently in acute exacerbation. CXR clear. (6) Renal insufficiency: Current visit: Yes Status: Chronic Improved. Etiology is likely mixed - likely due to dehydration in addition to mild urinary retention. Continue to monitor. Undergoing voiding trial with Q6 PVRs. (7) Increased anion gap metabolic acidosis: Current visit: Yes Status: Acute Patient does have a moderate anion gap of between 19 and 20 despite initial hydration - likely alcoholic ketoacidosis. His anion gap has closed today, and he is no longer acidotic. (8) Failure to thrive: Current visit: Yes Status: Acute Patient has generalized weakness that is likely related to chronic alcohol use, poor nutritional intake, deconditioning related to immobility. His profound hypomagnesemia and hypokalemia may also be contributing to muscle weakness. PT/OT consulted. Electrolytes continue to be repleted. (9) Depression: Current visit: Yes Status: Chronic Would benefit from inpatient psychiatric stabilization on voluntary basis due to expression of suicidal ideation - once medically cleared. (10) Hypomagnesemia: Current visit: Yes Status: Acute Replete and monitor. (11) Hypokalemia: Current visit: Yes Status: Resolved Continue to monitor; also, repleting magnesium. (12) DVT prophylaxis: Current visit: Yes Status: Acute Chemical DVT ppx d/c'ed. (13) Discharge planning issues: Current visit: Yes Status: Acute Patient is admitted to the medical floor. Is currently full code. [facility] is medically [facility] for [facility] care. Continues to require a CPSO. Subjective Interval history since last seen: Mr Calero states that he is feeling actually a little bit better today. When I asked him what he meant, he stated it had to do with his breathing (which he stated was at baseline yesterday). No BM and no active bleeding. He did require a transfusion of 1 unit of blood for H/H of 6.9/22.3. Denies dizziness, chest pain, nausea, vomiting, abdominal pain. He now states that 2-3 weeks ago he thinks he vomited blood. Exam Narrative Exam Narrative: General: very pleasant elderly male, no tremors noted, A&OX3, somewhat pale HEENT: EOMI, MMM Heart: RRR, no m/r/g Lungs: CTAB GI: abdomen is soft, nontender, nondistended Extremities: no e/c/c BLE's Objective Objective Clinical Data: Abnormal lab results 04/29/19 04/29/19 04/29/19 Range/Units 06:32 06:32 11:37 WBC 3.54 L (4.4-10.8) k/cumm RBC 2.37 L (4.50-6.00) m/cumm Hgb 6.9 L* (13.5-17.5) g/dL Hct 22.3 L (40.0-50.0) % MCHC 30.9 L (32.0-36.0) g/dL RDW 18.0 H (11.8-14.1) % Absolute Lymphocytes 0.95 L (1.2-3.4) k/cumm Glucose 121 H (70-100) mg/dL Calcium 6.9 L (8.5-10.1) mg/dL Magnesium 1.5 L (1.8-2.4) mg/dL Crossmatch See Detail Vital Signs Temperature 36.8 C 04/29/19 15:38 Temperature Source Tympanic 04/29/19 13:34 Pulse 75 04/29/19 15:38 Pulse Rhythm Regular 04/29/19 08:15 Pulse 76 04/27/19 18:10 Respiratory Rate 17 04/29/19 15:38 Respiratory Effort Non-Labored 04/29/19 08:15 Respiratory Depth Normal 04/29/19 08:15 Respiratory Pattern Normal 04/29/19 08:15 Blood Pressure 158/98 H 04/29/19 15:38 Blood Pressure Mean 103 04/27/19 16:01 Pulse Oximetry 99 04/29/19 15:38 Respiratory End-tidal CO2 35 04/27/19 16:20 Oxygen Delivery Method Room Air 04/29/19 15:38 Oxygen Flow Rate 0 04/29/19 15:38 Pain Level 0 04/29/19 13:34 Comment 04/29/19 08:55 Intake & Output 04/28/19 04/29/19 04/29/19 23:59 11:59 23:59 Intake Total 1250 / 5670.7 1829 / 2069 240 / 2070 Output Total 2004 / 2505 500 / 2505 Balance 1250 / 4520.7 -175 / -435 -260 / -435 Intake: IV 1010 / 4980.7 183 / 0 Oral 240 / 690 240 / 240 Output: Urine 1025 / 1525 500 / 1525 Post Void Residual 980 / 980 Other: Urine Color Yellow Yellow Urine Appearance Clear Clear Clear Urine Odor None Comment pt went to pass urine but unable to do so. Pt refused murry catheter stating that he dosen't want something inside him Pt consented to another straight cath. Pt voided 100 mL into the urinal. Post void bladder scan revealed 384 mL remaining. Pt was then straight cathed using sterile technique. The catheter yeilded 380 mL for a total output of 480 mL. see urinary intervention as well for these totals- output 150 ml, PVR bladder scanned for 363 max. pt requests no catheter at this time. Voiding Methods Urinal Urinal Laboratory Results WBC 3.54 k/cumm (4.4-10.8) L 04/29/19 06:32 RBC 2.37 m/cumm (4.50-6.00) L 04/29/19 06:32 Hgb 6.9 g/dL (13.5-17.5) L* 04/29/19 06:32 Hct 22.3 % (40.0-50.0) L 04/29/19 06:32 MCV 94.1 fL (80-95) 04/29/19 06:32 MCH 29.1 pg (27.0-33.0) 04/29/19 06:32 MCHC 30.9 g/dL (32.0-36.0) L 04/29/19 06:32 RDW 18.0 % (11.8-14.1) H 04/29/19 06:32 Plt Count 159 x1000/uL (130-400) 04/29/19 06:32 MPV 9.1 fL (8.0-11.0) 04/29/19 06:32 Immature Gran % 1.1 04/29/19 06:32 55.7 04/29/19 06:32 26.8 04/29/19 06:32 14.4 04/29/19 06:32 1.7 04/29/19 06:32 0.3 04/29/19 06:32 Absolute Neutrophils 1.97 k/cumm (1.2-6.7) 04/29/19 06:32 Absolute Lymphocytes 0.95 k/cumm (1.2-3.4) L 04/29/19 06:32 Absolute Monocytes 0.51 k/cumm (0.11-0.7) 04/29/19 06:32 Absolute Eosinophils 0.06 k/cumm (0.0-0.7) 04/29/19 06:32 Absolute Basophils 0.01 k/cumm (0.0-0.2) 04/29/19 06:32 Rbc morph reviewed 04/27/19 13:50 RBC Morphology See below 04/27/19 13:50 Present 04/27/19 13:50 2+ 04/27/19 13:50 1+ 04/27/19 13:50 Sodium 137 mmol/L (136-145) 04/29/19 06:32 Potassium 4.3 mmol/L (3.5-5.1) 04/29/19 06:32 Chloride 104 mmol/L (98-107) 04/29/19 06:32 Carbon Dioxide 23.2 mmol/L (21.0-32.0) 04/29/19 06:32 9.8 mmol/L (3-11) 04/29/19 06:32 BUN 13 mg/dL (7-18) 04/29/19 06:32 1.21 mg/dL (0.70-1.30) 04/29/19 06:32 58.95 (mL/min/1.73m2) 04/29/19 06:32 Glucose 121 mg/dL (70-100) H 04/29/19 06:32 Calcium 6.9 mg/dL (8.5-10.1) L 04/29/19 06:32 Phosphorus 2.4 mg/dL (2.6-4.7) L 04/28/19 06:50 Magnesium 1.5 mg/dL (1.8-2.4) L 04/29/19 06:32 Iron 39 ug/dL (50-175) L 04/28/19 06:50 TIBC 268 ug/dL (250-450) 04/28/19 06:50 Transferrin % Sat 15 % (20-55) L 04/28/19 06:50 0.3 mg/dL (0.2-1.0) 04/27/19 17:30 AST 110 U/L (15-37) H 04/27/19 17:30 ALT 63 U/L (12-78) 04/27/19 17:30 61 U/L (46-116) 04/27/19 17:30 < 0.05 ng/mL (0.00-0.06) 04/27/19 13:50 NT-Pro-B Natriuret Pep 425 pg/mL (-299) H 04/27/19 16:25 6.0 g/dL (6.4-8.2) L 04/27/19 17:30 3.1 g/dL (3.4-5.0) L 04/27/19 17:30 Vitamin B12 279 pg/mL (193-986) 04/28/19 06:50 TSH 0.87 uIU/mL (0.36-3.74) 04/27/19 16:25 Yellow (Yellow) 04/27/19 20:10 Clear (Clear) 04/27/19 20:10 5.5 (5-8) 04/27/19 20:10 Ur Specific [place] 1.015 (1.005-1.025) 04/27/19 20:10 Negative mg/dL (Negative) 04/27/19 20:10 15 mg/dL (Negative) H 04/27/19 20:10 Negative (Negative) 04/27/19 20:10 Negative (Negative) 04/27/19 20:10 Negative (Negative) 04/27/19 20:10 0.2 EU/dL (Up TO 0.2) 04/27/19 20:10 Ur Leukocyte Esterase Negative (Negative) 04/27/19 20:10 Negative mg/dL (Negative) 04/27/19 20:10 Negative (Negative) 04/27/19 20:10 Negative (Negative) 04/27/19 20:10 Ur Barbiturates Screen Negative (Negative) 04/27/19 20:10 Ur Tricyclics Screen Negative (Negative) 04/27/19 20:10 Ur Amphetamines Screen Negative (Negative) 04/27/19 20:10 U Benzodiazepines Scrn Negative (Negative) 04/27/19 20:10 Negative (Negative) 04/27/19 20:10 Ur THC Screen Negative (Negative) 04/27/19 20:10 Ethyl Alcohol 153.6 mg/dL (<3) 04/27/19 16:25 Patient ABO/Rh O Positive 04/29/19 11:37 Antibody Screen Negative 04/29/19 11:37 Crossmatch See Detail 04/29/19 11:37
[2019-04-29] MEDS: MAGNESIUM SULFATE 4 GM/100 ML BAG IVPB (17:24)
[2019-04-29 19:23] LABS: HCT 28.3 % (40.0-50.0); HGB 8.7 g/dL (13.5-17.5)
[2019-04-29] MEDS: LORazepam 1 MG TAB PO (19:33)
[2019-04-30] VITALS (9 sets, daily range): BP systolic 134–155; BP diastolic 80–91; PULSE 79–94; RESP 17–20; TEMP 36.5–37; O2SAT 97–100
--- NOTE | 2019-04-30 03:35 | NUR.NOTE ---
PT LAWRENCE leaking and was removed. pt refused to have access restarted, despite information given regarding his fluids. stated he will consent to one in the morning. Nursing Note:
[2019-04-30 06:58] LABS: Abs Immature Grans 0.05 k/cumm (0.0-0.09); Absolute Basophil Count 0.02 k/cumm (0.0-0.2); Absolute Eosinophil Count 0.06 k/cumm (0.0-0.7); Absolute Lymphocyte Count 0.95 k/cumm (1.2-3.4); Basophils % 0.5; Eosinophils % 1.4; HCT 28.5 % (40.0-50.0); HGB 8.9 g/dL (13.5-17.5); Immature Grans % 1.2; Mean Corp. HGB Concentration 31.2 g/dL (32.0-36.0); Mean Corpuscular Hemoglobin 28.8 pg (27.0-33.0); Mean Corpuscular Volume 92.2 fL (80-95); Mean Platelet Volume 9.2 fL (8.0-11.0); Monocytes % 11.6; Neutrophils % 63.3; Platelet Count 177 x1000/uL (130-400); RBC 3.09 m/cumm (4.50-6.00); RBC Distribution Width 18.2 % (11.8-14.1); White Blood Cell Count 4.32 k/cumm (4.4-10.8)
[2019-04-30 07:00] LABS: Absolute Neutrophil Count 2.73 k/cumm (1.2-6.7)
[2019-04-30 07:14] LABS: Anion Gap 7.6 mmol/L (3-11); BUN 9 mg/dL (7-18); CO2 26.4 mmol/L (21.0-32.0); CREATININE 1.15 mg/dL (0.70-1.30); Calcium 7.6 mg/dL (8.5-10.1); Chloride 103 mmol/L (98-107); Glucose 102 mg/dL (70-100); Magnesium 2.2 mg/dL (1.8-2.4); Sodium 137 mmol/L (136-145)
[2019-04-30] MEDS: Magnesium Chloride 64 MG TABCR 128 MG PO ×2 (07:43→19:53)
[2019-04-30] MEDS: Cyanocobalamin 500 MCG TAB 1000 MCG PO (07:43)
[2019-04-30] MEDS: Thiamine 100 MG TAB PO (07:44)
[2019-04-30] MEDS: Multivitamin TAB 1 TAB PO (07:45)
[2019-04-30] MEDS: Folic Acid 1 MG TAB PO (07:45)
--- NOTE | 2019-04-30 07:51 | CMPROGNOTE_ITS ---
- If Service Date Differs Date of service: 04/29/19 Time of Service: 07:52 Care Management Progress Note S/O: Khoi remains acute. Plan for him to have a PRC transfusion today, continued monitoring of his labs, and CIWA monitoring. Khoi will continue with the current safety plan in place. CON[facility] contacted Jes[place] at the [place] transfer center he will not be accepted as an acute transfer and is being considered for psychiatric transfer once he is medically cleared. CM will fax updated clinicals and contact [facility] crisis to assist with transfer. CM will need to send updated clinicals including PT assessment and updates. To qualify for the [place] psychiatric facility he will need to be able to attend to his own ADL's. A: Khoi is a 73 year old male admitted with SI, ETOH, failure to thrive and electrolyte imbalance. Found to have a low HH and in need of a transfusion. P: Khoi will be transferred to psychiatric facility once he is medically stable and cleared for transfer. [facility] to be contacted to assist with placement at facility. Khoi will be transferred via application development project manager vs ambulance coordinated by CONOR.
[2019-04-30] MEDS: Acetaminophen 325 MG TAB PO (07:53)
--- NOTE | 2019-04-30 09:57 | PT.INTREAT ---
Date of service: 04/30/19 Time of Service: 09:57 PT Notes Inpatient Physical Therapy Treatment Note [facility] Date: 04/30/19 PRECAUTIONS: Fall, Alcohol Withdrawal SUBJECTIVE: Rufino is agreeable to participating in PT. He reports during session, I would not have been able to do this a few days ago. I feel pretty weak. OBJECTIVE: PAIN: Patient c/o pain in R great toe with stair training BED MOBILITY/TRANSFERS Supine-sit: I Sit-stand: S Stand-sit: S GAIT Assistive Device: FWW Weight bearing: Full Assist: SBA Distance: 75' x2 Deviation: Seated rest x1 STAIRS: Up/down 3x4 and 2x6 using B rails and a step-to pattern with supervision TOILETING: Patient toileted with SBA ASSESSMENT: Patient tolerated session with minimal c/o great toe pain with stair training. He requires seated rest due to fatigue with activity. He would benefit from continued participation in gait and transfer training as well as global strengthening for improved mobility and activity tolerance. PLAN: Continue with PT's POC TREATMENT CODE/TIME: Session 1: 25 minutes; [id number] x2
[2019-04-30] MEDS: Bisacodyl 5 MG TABEC 10 MG PO (10:48)
[2019-04-30] MEDS: Tamsulosin 0.4 MG CAPCR PO (10:49)
--- NOTE | 2019-04-30 13:52 | PGE_ITS ---
Date of Service Date of service: 04/30/19 Time of Service: 13:53 Assessment and Plan (1) Anemia: Current visit: Yes Status: Chronic Acute on chronic; s/p transfusion of 1 unit of pRBC's on 04/30/19. No active bleeding noted on this admission, and there still has not been a BM. Due to history of hematemasis, planned to undergo EGD tomorrow. Await hematest. PPI converted to PO given lack of active bleeding. Continue B12 repletion. Abstain from chemical DVT ppx. (2) Alcohol withdrawal: Current visit: Yes Status: Acute Denies history of alcohol withdrawal seizures. CIWA score 2 at the maximum. Continue CIWA monitoring with prn benzos, as well as banana bag, thiamine. (3) Alcohol use disorder: Current visit: Yes Status: Acute Ideally, the patient would participate in alcohol rehab on discharge. (4) Smoking hx: Current visit: Yes Status: Acute Continue Nicotrol inhaler. (5) COPD (chronic obstructive pulmonary disease): Current visit: Yes Status: Chronic Continue as needed bronchodilators. Not presently in acute exacerbation. CXR clear. (6) Renal insufficiency: Current visit: Yes Status: Chronic SAUL resolved. Likely due to urinary retention. I started flomax. Will d/c murry and do another voiding trial. (7) Increased anion gap metabolic acidosis: Current visit: Yes Status: Resolved Alcoholic ketoacidosis - resolved. (8) Failure to thrive: Current visit: Yes Status: Acute Patient has generalized weakness that is likely related to chronic alcohol use, poor nutritional intake, deconditioning related to immobility, hypomagnesemia. Continue to work with PT/OT. He is expected to return home with home health RN, PT, OT, VICE PRESIDENT INDUSTRIAL RELATIONS. (9) Depression: Current visit: Yes Status: Chronic No longer suicidal - cleared by mental health (10) Hypomagnesemia: Current visit: Yes Status: Resolved Resolved. Recheck in am. Continue PO repletion. (11) Hypokalemia: Current visit: Yes Status: Resolved Continue to monitor; also, repleting magnesium. (12) DVT prophylaxis: Current visit: Yes Status: Acute Chemical DVT ppx d/c'ed due to falling hemoglobin on it. (13) Discharge planning issues: Current visit: Yes Status: Acute No longer requiring psychiatric hospitalization. The patient is expected to be discharged home tomorrow with RN, PT, OT, VICE PRESIDENT INDUSTRIAL RELATIONS. Full code Subjective Interval history since last seen: Mr Calero states he hasn't felt suicidal at all today. I haven't even thought about it! He was cleared by mental health. He was retaining urine and had a murry catheter placed this morning. Denies dizziness, chest pain, shortness of breath, nausea, vomiting. He has not yet had a BM. He is planned for EGD tomorrow. He feels that he is not quite ready to go home and would like to navigate the stairs more comfortably before he leaves. Exam Narrative Exam Narrative: General: very pleasant elderly male, mild tremors, looks better/more upbeat, A&OX3 HEENT: EOMI, MMM Heart: RRR, no m/r/g Lungs: CTAB GI: abdomen is soft, nontender, nondistended Extremities: no e/c/c BLE's Objective Objective Clinical Data: Abnormal lab results 04/29/19 04/29/19 04/30/19 Range/Units 11:37 19:12 06:45 WBC (4.4-10.8) k/cumm RBC (4.50-6.00) m/cumm Hgb 8.7 L (13.5-17.5) g/dL Hct 28.3 L D (40.0-50.0) % MCHC (32.0-36.0) g/dL RDW (11.8-14.1) % Absolute Lymphocytes (1.2-3.4) k/cumm Glucose 102 H (70-100) mg/dL Calcium 7.6 L (8.5-10.1) mg/dL Crossmatch See Detail 04/30/19 Range/Units 06:45 WBC 4.32 L (4.4-10.8) k/cumm RBC 3.09 L (4.50-6.00) m/cumm Hgb 8.9 L (13.5-17.5) g/dL Hct 28.5 L (40.0-50.0) % MCHC 31.2 L (32.0-36.0) g/dL RDW 18.2 H (11.8-14.1) % Absolute Lymphocytes 0.95 L (1.2-3.4) k/cumm Glucose (70-100) mg/dL Calcium (8.5-10.1) mg/dL Crossmatch Vital Signs Temperature 36.8 C 04/30/19 11:25 Temperature Source Temporal Artery Scan 04/30/19 11:25 Pulse 83 04/30/19 11:25 Pulse Rhythm Regular 04/30/19 07:40 Pulse 76 04/27/19 18:10 Respiratory Rate 19 04/30/19 11:25 Respiratory Effort Non-Labored 04/30/19 07:40 Respiratory Depth Normal 04/30/19 07:40 Respiratory Pattern Normal 04/30/19 07:40 Blood Pressure 134/80 04/30/19 11:25 Blood Pressure Mean 103 04/27/19 16:01 Pulse Oximetry 99 04/30/19 11:25 Respiratory End-tidal CO2 35 04/27/19 16:20 Oxygen Delivery Method Room Air 04/30/19 08:05 Oxygen Flow Rate 0 04/30/19 08:05 Pain Level 3 04/30/19 08:53 Comment 04/29/19 08:55 Intake & Output 04/29/19 04/30/19 04/30/19 23:59 11:59 23:59 Intake Total 1490 / 3320 950 / 950 Output Total 1925 / 3930 2600 / 2600 Balance -435 / -610 -1650 / -1650 Intake: IV 1000 / 2830 950 / 950 Oral 240 / 240 Blood Product 250 / 250 Rbc Leuko Reduced Unit 250 / 250 [id number] Output: Urine 1475 / 2500 2350 / 2350 Post Void Residual 450 / 1430 250 / 250 Other: Urine Color Yellow Pale Yellow Urine Appearance Clear Clear Urine Odor None None Comment pt was scanned for 376 after he voided 100 cc in urinal and catheter obtained 450cc yellow urine See Bladder scan intervention Stool Size Copious Stool Characteristics Soft Formed Brown Voiding Methods Urinal Urinal Laboratory Results WBC 4.32 k/cumm (4.4-10.8) L 04/30/19 06:45 RBC 3.09 m/cumm (4.50-6.00) L 04/30/19 06:45 Hgb 8.9 g/dL (13.5-17.5) L 04/30/19 06:45 Hct 28.5 % (40.0-50.0) L 04/30/19 06:45 MCV 92.2 fL (80-95) 04/30/19 06:45 MCH 28.8 pg (27.0-33.0) 04/30/19 06:45 MCHC 31.2 g/dL (32.0-36.0) L 04/30/19 06:45 RDW 18.2 % (11.8-14.1) H 04/30/19 06:45 Plt Count 177 x1000/uL (130-400) 04/30/19 06:45 MPV 9.2 fL (8.0-11.0) 04/30/19 06:45 Immature Gran % 1.2 04/30/19 06:45 63.3 04/30/19 06:45 22.0 04/30/19 06:45 11.6 04/30/19 06:45 1.4 04/30/19 06:45 0.5 04/30/19 06:45 Absolute Neutrophils 2.73 k/cumm (1.2-6.7) 04/30/19 06:45 Absolute Lymphocytes 0.95 k/cumm (1.2-3.4) L 04/30/19 06:45 Absolute Monocytes 0.50 k/cumm (0.11-0.7) 04/30/19 06:45 Absolute Eosinophils 0.06 k/cumm (0.0-0.7) 04/30/19 06:45 Absolute Basophils 0.02 k/cumm (0.0-0.2) 04/30/19 06:45 Rbc morph reviewed 04/27/19 13:50 RBC Morphology See below 04/27/19 13:50 Present 04/27/19 13:50 2+ 04/27/19 13:50 1+ 04/27/19 13:50 Sodium 137 mmol/L (136-145) 04/30/19 06:45 Potassium 5.0 mmol/L (3.5-5.1) 04/30/19 06:45 Chloride 103 mmol/L (98-107) 04/30/19 06:45 Carbon Dioxide 26.4 mmol/L (21.0-32.0) 04/30/19 06:45 7.6 mmol/L (3-11) 04/30/19 06:45 BUN 9 mg/dL (7-18) 04/30/19 06:45 1.15 mg/dL (0.70-1.30) 04/30/19 06:45 >= 60.00 (mL/min/1.73m2) 04/30/19 06:45 Glucose 102 mg/dL (70-100) H 04/30/19 06:45 Calcium 7.6 mg/dL (8.5-10.1) L 04/30/19 06:45 Phosphorus 2.4 mg/dL (2.6-4.7) L 04/28/19 06:50 Magnesium 2.2 mg/dL (1.8-2.4) 04/30/19 06:45 Iron 39 ug/dL (50-175) L 04/28/19 06:50 TIBC 268 ug/dL (250-450) 04/28/19 06:50 Transferrin % Sat 15 % (20-55) L 04/28/19 06:50 0.3 mg/dL (0.2-1.0) 04/27/19 17:30 AST 110 U/L (15-37) H 04/27/19 17:30 ALT 63 U/L (12-78) 04/27/19 17:30 61 U/L (46-116) 04/27/19 17:30 < 0.05 ng/mL (0.00-0.06) 04/27/19 13:50 NT-Pro-B Natriuret Pep 425 pg/mL (-299) H 04/27/19 16:25 6.0 g/dL (6.4-8.2) L 04/27/19 17:30 3.1 g/dL (3.4-5.0) L 04/27/19 17:30 Vitamin B12 279 pg/mL (193-986) 04/28/19 06:50 TSH 0.87 uIU/mL (0.36-3.74) 04/27/19 16:25 Yellow (Yellow) 04/27/19 20:10 Clear (Clear) 04/27/19 20:10 5.5 (5-8) 04/27/19 20:10 Ur Specific [place] 1.015 (1.005-1.025) 04/27/19 20:10 Negative mg/dL (Negative) 04/27/19 20:10 15 mg/dL (Negative) H 04/27/19 20:10 Negative (Negative) 04/27/19 20:10 Negative (Negative) 04/27/19 20:10 Negative (Negative) 04/27/19 20:10 0.2 EU/dL (Up TO 0.2) 04/27/19 20:10 Ur Leukocyte Esterase Negative (Negative) 04/27/19 20:10 Negative mg/dL (Negative) 04/27/19 20:10 Negative (Negative) 04/27/19 20:10 Negative (Negative) 04/27/19 20:10 Ur Barbiturates Screen Negative (Negative) 04/27/19 20:10 Ur Tricyclics Screen Negative (Negative) 04/27/19 20:10 Ur Amphetamines Screen Negative (Negative) 04/27/19 20:10 U Benzodiazepines Scrn Negative (Negative) 04/27/19 20:10 Negative (Negative) 04/27/19 20:10 Ur THC Screen Negative (Negative) 04/27/19 20:10 Ethyl Alcohol 153.6 mg/dL (<3) 04/27/19 16:25 Patient ABO/Rh O Positive 04/29/19 11:37 Antibody Screen Negative 04/29/19 11:37 Crossmatch See Detail 04/29/19 11:37
--- NOTE | 2019-04-30 14:03 | PT.INNT ---
Date of service: 04/30/19 Time of Service: 14:03 PT Notes 04/30/19 Patient refused afternoon PT session, stating he felt nauseous and was in the middle of eating his lunch. He was later unavailable, per nursing. Will attempt to resume PT services tomorrow morning.
[2019-04-30] MEDS: Pantoprazole 40 MG TABCR PO ×2 (14:13→19:54)
--- NOTE | 2019-04-30 14:13 | PDOC.MHPN2 ---
Date of service: 04/30/19 Time of Service: 14:13 Mental Health Progress Note Progress Note: Presenting Issue: Patient remains at [facility] awaiting disposition. He first came to the hospital on April 27, 2019 due to intoxication, failure to thrive at home, and suicidal ideation. Precipitating Factors: Patient reports he is lonely, is unable to care for himself at home and needs help. He states he has been feeling blue but his mood is now improved and he denies current suicidal ideation. He believes that his alcohol use is catching up to him and states that the alcohol is what made him depressed. Disposition * Behavior: Cooperative. *Eye Contact: Good. *Mood: Slightly irritable - I'm tired of being poked and of having to talk to people. *Affect: Congruent to mood. *Appetite: Reported as good since at the hospital. *Sleep(trouble falling/staying asleep): Unknown. Plan(please elaborate and include that physician is consulted with plan and/or placement): Patient will return home once he is able to ambulate on his own and appropriate in-home services are put in place. Clinician's Name , Title, and Signature: Nia Holley BA, [facility] Product Blending Supervisor Make sure that you are photocopying and submitting this to [facility] records Dept. to be scanned into chart.
--- NOTE | 2019-04-30 15:40 | W.SURGCON ---
Date of service: 04/30/19 Time of Service: 12:55 Assessment and Plan (1) Hematemesis: Current visit: Yes Status: Acute I advised EGD. The procedure and risks of perforation with need for surgery discussed. The patient agrees to proceed. Will schedule for tomorrow. History of Present Illness Narrative: Patient admitted with failure to thrive and worsening anemia. Had one episode a week or so ago when he coughed or vomited some flecks of blood. Denies abdominal pain, nausea, vomiting. No bloody or black stools. No prior EGD, colonoscopy 4 years ago at the [facility] showed polyps - due next year. Sips alcohol most of the day at home. No FH colon cancer Review of Systems Review of Systems All systems reviewed & are unremarkable except as noted in HPI and below PFSH Medical History Alcohol use disorder (Acute) COPD (chronic obstructive pulmonary disease) (Chronic) Smoking hx (Acute) Social History Smoking/Tobacco Use Status: Current every day Tobacco Type: cigarettes Years smoked: 50 Alcohol Intake: current Alcohol Intake frequency: 3 or more drinks per day Drug use: Never Substance use type: does not use Do you feel safe at home: Yes Do you feel safe in your relationship?: Yes Additional Social history: Lives alone in apartment in [facility] for past ~6 years, closest family brother Owen in [place], [place] 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[employer], 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[place] Exam Const General: not in acute distress Orientation: oriented x3 HENMT Head: normal to inspection Eyes Sclera: sclerae normal Pupils: PERRL Neck Neck: no lymphadenopathy Carotids: no bruits Resp Effort & Inspection: normal respiratory effort Auscultation: clear to auscultation bilaterally and no wheezes Cardio Rate: regular rate Rhythm: regular rhythm GI Inspection: non-distended Palpation: soft, no hepatosplenomegaly, no hernias and nontender Skin General skin exam: no rashes or lesions noted Neuro General: alert Cognition: normal cognition Extrem General: normal to inspection Psych Affect: normal affect Attitude: cooperative Results Last Vital Signs Temp 98.2 F 04/30/19 11:25 Pulse 83 04/30/19 11:25 Resp 19 04/30/19 11:25 BP 134/80 04/30/19 11:25 Pulse Ox 99 04/30/19 11:25 Labs : 04/30/19 06:45 04/30/19 06:45 Laboratory Results - last 24 hr 04/29/19 04/29/19 04/30/19 11:37 19:12 06:45 WBC RBC Hgb 8.7 L Hct 28.3 L D MCV MCH MCHC RDW Plt Count MPV Immature Gran % Neutrophils % Lymphocytes % Monocytes % Eosinophils % Basophils % Absolute Neutrophils Absolute Lymphocytes Absolute Monocytes Absolute Eosinophils Absolute Basophils Sodium 137 Potassium 5.0 Chloride 103 Carbon Dioxide 26.4 Anion Gap 7.6 BUN 9 Creatinine 1.15 Estimated GFR/1.73 m2 >= 60.00 Glucose 102 H Calcium 7.6 L Magnesium 2.2 Crossmatch See Detail 04/30/19 06:45 WBC 4.32 L RBC 3.09 L Hgb 8.9 L Hct 28.5 L MCV 92.2 MCH 28.8 MCHC 31.2 L RDW 18.2 H Plt Count 177 MPV 9.2 Immature Gran % 1.2 Neutrophils % 63.3 Lymphocytes % 22.0 Monocytes % 11.6 Eosinophils % 1.4 Basophils % 0.5 Absolute Neutrophils 2.73 Absolute Lymphocytes 0.95 L Absolute Monocytes 0.50 Absolute Eosinophils 0.06 Absolute Basophils 0.02 Sodium Potassium Chloride Carbon Dioxide Anion Gap BUN Creatinine Estimated GFR/1.73 m2 Glucose Calcium Magnesium Crossmatch
--- NOTE | 2019-04-30 17:40 | PDOC.CMPRO ---
Care Management Progress Note S/O: CONOR spoke with [place] [facility]: [email or web address]. Luciano reported that [facility] would be contacted within the next thirty minutes regarding bed availability. CONOR inquired to sending updated clinicals and was directed to wait until bed availability was determined. CONOR continues to follow. 1051 reported requests for additional clinical information from [place]. CONOR faxed updated clinicals to [place] F#[phone] [place] called to request medical information and confirm medical clearance; they shared concerns around Khoi's Hgb level, anemia and ability to void. They also questioned his Psychiatric status and requested repeat crisis screening. CONOR called [facility] and requested repeat screening. Nia arrived and cleared Khoi from a MH standpoint. reports Khoi is now a primary medical patient and will require surgical consult. Khoi shares concerns around insurance coverage and cleaning his home prior to return. A: 73 year old male admitted to [facility] 04/28/19 for Failure to Thrive, Anion Gap Acidosis P: Khoi will return home when ready per MD. Anticipate new orders for [facility] VNA: RN, PT, OT, V BELT MOLD ASSEMBLER AND CURER and VA oversight. CONOR will provide house cleaning resources as Khoi reports funds available for self paying for the the service. Khoi will transport via private vehicle with a friend or via RCT.
[2019-04-30] MEDS: LORazepam 1 MG TAB PO (19:53)
[2019-05-01] VITALS (7 sets, daily range): BP systolic 101–142; BP diastolic 60–84; PULSE 76–107; RESP 18–22; TEMP 36.5–37.2; O2SAT 96–99
[2019-05-01] MEDS: Lactated Ringers 1,000 ML 80 ML IV
[2019-05-01] MEDS: Magnesium Chloride 64 MG TABCR 128 MG PO (08:02)
[2019-05-01] MEDS: Pantoprazole 40 MG TABCR PO (08:03)
[2019-05-01] MEDS: Tamsulosin 0.4 MG CAPCR PO (08:04)
[2019-05-01] MEDS: Multivitamin TAB 1 TAB PO (08:04)
[2019-05-01 08:05] LABS: HCT 29.7 % (40.0-50.0); HGB 9.6 g/dL (13.5-17.5); Mean Corp. HGB Concentration 32.3 g/dL (32.0-36.0); Mean Corpuscular Hemoglobin 29.7 pg (27.0-33.0); Mean Platelet Volume 9.6 fL (8.0-11.0); Platelet Count 177 x1000/uL (130-400); RBC 3.23 m/cumm (4.50-6.00); RBC Distribution Width 17.7 % (11.8-14.1); White Blood Cell Count 5.59 k/cumm (4.4-10.8)
[2019-05-01] MEDS: Cyanocobalamin 500 MCG TAB 1000 MCG PO (08:05)
[2019-05-01] MEDS: Folic Acid 1 MG TAB PO (08:05)
[2019-05-01] MEDS: Thiamine 100 MG TAB PO (08:05)
[2019-05-01 08:17] LABS: Anion Gap 9.2 mmol/L (3-11); BUN 9 mg/dL (7-18); CO2 23.8 mmol/L (21.0-32.0); CREATININE 1.11 mg/dL (0.70-1.30); Calcium 7.6 mg/dL (8.5-10.1); Chloride 103 mmol/L (98-107); Glucose 102 mg/dL (70-100); Magnesium 1.7 mg/dL (1.8-2.4); Potassium 4.5 mmol/L (3.5-5.1); Sodium 136 mmol/L (136-145)
[2019-05-01 08:18] LABS: INR 0.9 (0.9-1.1); Prothrombin Time 9.1 sec (9.3-11.0)
--- NOTE | 2019-05-01 09:26 | PT.INNT ---
Date of service: 05/01/19 Time of Service: 09:26 PT Notes 05/01/19 Patient refused morning PT session stating I want to walk, but I have a test coming up this morning that I've been really worried about all night. Come check back in with me later, because I really want to walk. Will attempt to resume PT services this afternoon.
--- NOTE | 2019-05-01 12:52 | ESO_PTH ---
PATIENT: Khoi Calero LOC: U#:[id number] AGE/SX: 73/M ROOM: MS.228 RE04/28/[address]: Ca Arnold : 1945 BED: A DIS: 05/01/2019 SPEC #: [id number] RECD: 05/01/19 17:34 STATUS: [facility] REQ #: [id number] KARL: 05/01/19 12:[address]: Ca Arnold DEPT: Surgical Specimen RECD BY: Carina Dozier ENTERED: 05/01/19 17:34 SP TYPE: Eso OTHR DR: MD Connie Franco John Mitchell J. Sullivan, MD Tissues: 1 - ESOPHAGUS BIOPSY Procedures: GROSS AND MICRO LEVEL 4 Comments: [id number]
[2019-05-01] MEDS: Budesonide/Formoterol 160/4.5 6 GM 60 PUFF INH IH (13:41)
--- NOTE | 2019-05-01 14:29 | CMPROGNOTE_ITS ---
Care Management Progress Note Khoi verbalized not feeling physically ready to go home. I have fifteen stairs, I can't walk, I have to be able to walk to go home. PT and RN chart notes are consistent with Khoi meeting criteria for SWB1 though he is independent in his room he requires sit breaks due to fatigue and requires further stair training prior to returning home. Anticipate Khoi will transition to SWB1 when ready per MD. A: 73 year old male admitted to [facility] 04/28/19 for Failure to Thrive, Anion Gap Acidosis P: Khoi will return home when ready per MD. Anticipate new orders for [facility] VNA: RN, PT, OT, ROLL EDGE STITCHER HAND and VA oversight. Khoi decline MOW referral and RCT transport stating he would coordinate his own taxi ride home. will provide house cleaning resources as Khoi reports funds available for self paying for the the service. Khoi will transport via private vehicle with a friend or via RCT.
--- NOTE | 2019-05-01 14:31 | W.PM.DS.N ---
Date of service: 05/01/19 Time of Service: 14:32 DS: Diagnosis Discharge Diagnosis (1) Hematemesis: Status: Acute Discharge Plan Disposition Patient Disposition: [facility] SWING BED LEVEL 1 Condition: Stable Discharge Details Clinical Impression: Failure to thrive, Increased anion gap metabolic acidosis Reason For Visit: FAILURE TO THRIVE, ANION GAP ACIDOSIS Admit Date/Time: 04/28/19 11:05 Admit Provider: Prashant Rosales Attending Provider: Ca Arnold Primary Care Provider: Antonio Flood ED Provider: Marquez Henning Hospital Course Hospital Course: this is a 73 year old male with a history of alcohol abuse who was admitted to med/surg after presenting to the ED for alcohol intoxication, failure to thrive at home, and suicidal ideation. He did not experience acute alcohol withdrawal or DT's. He reported hematemesis and did drop H&H, thought to be dilutional as there was no active bleeding. He received 1 unit of PRBC's and his H&H has remained stable. He did undergo an upper endoscopy and no gastritis, esophageal varices, or significant findings. There was some mild duodenitis. recommendations for PPI at discharge. Mental health continued to follow him and he was accepted at the [facility] for inpatient psychiatric management but now sober and after re-screening he was deemed safe for discharge to home. He has been working with physical therapy and remains deconditioned and it is felt he can benefit from inpatient PT/OT prior to returning home. case management has been following and will make referrals to for rehabilitation. Home Meds and New Rx's Prescriptions: New multivitamin [Multiple Vitamins] Tablet 1 tab PO DAILY Qty: 30 RF: 0 Nicotrol 10 mg Cartridge 30 cartridge inhalation DIRECTED PRNQty: 10 RF: 0 tamsulosin 0.4 mg Capsule 0.4 mg PO DAILY Qty: 30 RF: 0 pantoprazole 40 mg Tablet,Delayed Release (Dr/Ec) 40 mg PO DAILY Qty: 30 RF: 0 alum-mag hydroxide-simeth [Mag-Al Plus] 200-200-20 mg/5 mL Suspension 30 ml PO Q2H PRN PRNQty: 120 RF: 0 Symbicort 160-4.5 mcg/actuation Hfa Aerosol Inhaler 2 puff inhalation BID Qty: 1 RF: 0 thiamine mononitrate (vit B1) [Vitamin B-1 (mononitrate)] 100 mg Tablet 100 mg PO DAILY Qty: 30 RF: 0 Discharge Instructions Instructions: Abuse of Alcohol (DC) Additional Instructions: swing level rehab Stand Alone Forms: Nursing Discharge Form Referrals: Alvaro Scott [ [facility] STAFF PHYSICIAN] - 05/18/19 1:20 pm Activity:: Activity as Tolerated Equipment/Supplies:: No Equipment Needed Diet:: As Tolerated Exam Const General: no acute distress, anxious and ill appearing (older than stated age) chronically [facility] Head: normal to inspection, normocephalic and atraumatic Resp Effort & Inspection: normal respiratory effort and able to speak in complete sentences Auscultation: clear to auscultation bilaterally Cardio Rate: regular rate Rhythm: regular rhythm GI Inspection: normal to inspection Palpation: soft Auscultation: normal bowel sounds Neuro General: alert, awake and oriented x3 Extrem General: normal to inspection and full ROM Psych Appearance: other (long hair and irwin) Mood: anxious mood Affect: anxious affect Attitude: cooperative DS: Data Vitals/I&O Vitals and I&O: Vital Signs Temperature 36.5 C 05/01/19 13:15 Temperature Source Tympanic 05/01/19 11:46 Pulse 103 H 05/01/19 13:15 Pulse Rhythm Regular 05/01/19 08:33 Pulse 76 04/27/19 18:10 Respiratory Rate 20 05/01/19 13:15 Respiratory Effort Non-Labored 05/01/19 08:33 Respiratory Depth Shallow 05/01/19 08:33 Respiratory Pattern Normal 05/01/19 08:33 Blood Pressure 126/66 05/01/19 13:15 Blood Pressure Mean 103 04/27/19 16:01 Pulse Oximetry 97 05/01/19 13:15 Respiratory End-tidal CO2 35 04/27/19 16:20 Oxygen Delivery Method Room Air 05/01/19 13:15 Oxygen Flow Rate 0 05/01/19 11:46 Pain Level 0 05/01/19 08:33 Comment 05/01/19 03:40 Intake & Output 04/30/19 05/01/19 05/01/19 23:59 11:59 23:59 Intake Total 250 / 1200 25 / 265 240 / 265 Output Total 375 / 2975 975 / 1375 400 / 1375 Balance -125 / -1775 -950 / -1110 -160 / -1110 Weight 70.6 kg Intake: IV Oral 240 / 240 25 / 265 240 / 265 Output: Urine 375 / 2725 975 / 1375 400 / 1375 Other: Urine Color Yellow Pale Pale Yellow Straw Urine Appearance Clear Clear Clear Urine Odor Normal Normal Comment pt voided in the tiolet state he has to get up and do so because when he goes home he has to. he also had a puddle of urine on the floor Stool Size Moderate Stool Characteristics Soft Formed Emesis Description None Voiding Methods Urinal Urinal Labs on day of discharge: Labs from last 24 hours 05/01/19 05/01/19 05/01/19 07:50 07:50 07:50 WBC 5.59 RBC 3.23 L Hgb 9.6 L Hct 29.7 L MCV 92.0 MCH 29.7 MCHC 32.3 RDW 17.7 H Plt Count 177 MPV 9.6 PT 9.1 L INR 0.9 Sodium 136 Potassium 4.5 Chloride 103 Carbon Dioxide 23.8 Anion Gap 9.2 BUN 9 Creatinine 1.11 Estimated GFR/1.73 m2 >= 60.00 Glucose 102 H Calcium 7.6 L Magnesium 1.7 L PFSH Medical History Alcohol use disorder (Acute) COPD (chronic obstructive pulmonary disease) (Chronic) Smoking hx (Acute) Social History Smoking/Tobacco Use Status: Current every day Tobacco Type: cigarettes Alcohol Intake: current Alcohol Intake frequency: 3 or more drinks per day Drug use: Never Substance use type: does not use Do you feel safe at home: Yes Do you feel safe in your relationship?: Yes Additional Social history: Lives alone in apartment in [facility] for past ~6 years, closest family brother Owen in [place], [place] 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
--- NOTE | 2019-05-01 14:49 | PT.INNT ---
Date of service: 05/01/19 Time of Service: 14:49 PT Notes 05/01/2019 Patient refused afternoon PT x2, stating I feel weak following his procedure in the OR. Come back tomorrow, and I will work with you. Will attempt to resume PT services tomorrow morning.
--- NOTE | 2019-05-01 16:19 | PT.INDS ---
Date of service: 05/01/19 Time of Service: 15:33 PT Notes Inpatient Physical Therapy Discharge Summary Dates: 05/01/2019 Dates of Service: 04/28/2019 through 05/01/2019 Referring Doctor: Prashant Rosales MD PT Orders: PT CONSULT: 73-year-old chronic alcoholic found immobile for past months with with acidosis and electrolyte abnormalities. Please assess for safety, mobility, deconditioning. Precautions: Fall. Standard. Suicide precautions. Patient Profile/Admitting Diagnosis: Patient is discharged from acute care level and is re-evaluated under swing bed level as of today for continued skilled physical therapy services for mobility progression. Patient is a 73-year-old male with a past medical history significant for alcohol abuse and COPD who presented to the ED on 04/27/2019 with chief complaints of failure to thrive, generalized weakness, poor self home care and ongoing uncontrollable daily use of alcohol and cigarettes. Patient is diagnosed with alcohol withdrawal, COPD, renal insufficiency, anemia, metabolic acidosis, failure to thrive, and depression. PMHX: Medical History (Updated 04/27/19 @ 22:34 by Prashant Rosales) Alcohol use disorder (Acute) COPD (chronic obstructive pulmonary disease) (Chronic) Smoking hx (Acute) Social History/Home Situation: Patient lives alone in an apartment with 15 steps to get in with a rail on the right going up. He was independent with all aspects of ADLs without the need for an assistive ambulatory device nor adaptive equipment although he stated that recently it has been very difficult to do so due to weakness and uncontrolled alcoholism. Current Functional Limitations: Need for assistance for all transfer front wheeled walker. Equipment Owned/DME: None but will need a FWW. Subjective: Patient needed considerable encouragement to participate in evaluation at the start but somehow began to get interested with walking towards the middle of the session. He denies dizziness, chest pain, palpitations, and shortness of breath after ambulation activity. He still complains of being weak and being tired from not being able to sleep well last night. Objective: General Observation: Patient seen resting in bed, sleepy. IV in L UE. In paper clothing. Mental Status: Alert and oriented x 4 Pain: 0/10 ROM: Right Upper Extremity: Shoulder Flexion WFL. Shoulder abduction WFL. Elbow flexion WFL. Wrist flexion WFL. Functional opening and closing of hand WFL. Left Upper Extremity: Shoulder Flexion WFL. Shoulder abduction WFL. Elbow flexion WFL. Wrist flexion WFL. Functional opening and closing of hand WFL. Right Lower Extremity: Hip flexion WFL. Hip abduction WFL. Knee flexion WFL. Ankle dorsiflexion WFL. Ankle plantarflexion WFL. Left Lower Extremity: Hip flexion WFL. Hip abduction WFL. Knee flexion WFL. Ankle dorsiflexion WFL. Ankle plantarflexion WFL. Strength: Right Upper Extremity: Shoulder flexors 5/5. Shoulder abductors 5/5. Elbow flexors 5/5. Elbow extensors 5/5. Inverter And Clipper strong. Left Upper Extremity: Shoulder flexors 5/5. Shoulder abductors 5/5. Elbow flexors 5/5. Elbow extensors 5/5. Inverter And Clipper strong. Right Lower Extremity: Hip flexors 5/5. Hip abductors 5/5. Knee flexors 5/5. Knee extensors 5/5. Ankle dorsiflexors 5/5. Ankle plantarflexors 5/5. Left Lower Extremity:Hip flexors 5/5. Hip abductors 5/5. Knee flexors 5/5. Knee extensors 5/5. Ankle dorsiflexors 5/5. Ankle plantarflexors 5/5. Sensation: Intact as to pain and pressure on bilateral lower extremities. Bed Mobility/Transfers: Rolling independent Supine to sit independent Sit to supine independent Sit to stand supervision Stand to sit supervision Bed to chair supervision Chair to bed supervision Gait: Patient was able to tolerate level surface ambulation with front wheeled walker with FWB and SBA office PT of up to 80 feet x 2 with decreased step height and length observed as well as decreased gait velocity. Minimal verbal cueing needed during turning and for safe walker management. Balance: Static Sitting: Normal Dynamic Sitting: Normal Static Standing: Good Dynamic Standing: Fair Assessment: Patient presents with clinical signs and symptoms consistent with current/admitting diagnoses that have resulted to mobility limitations, gait instability, generalized weakness, and impairment of motor control as demonstrated by the following impairment level findings: 1. Decreased strength to B LE major muscle groups 2. Impaired sitting/standing balance 3. Impaired activity tolerance Impairments are contributing to the following functional limitations: 1. Dependent bed mobility skills 2. Increased dependence with transfers 3. Inability to safely ambulate without assistive device and physical assistance 4. Increase completion time for mobility ADL performance 5. Increased fall risk 6. Inability to negotiate steps alone safely Goals: Goals X1 week 1. Supine-Sit independent MET 2. Sit-Supine independent MET 3. Sit-Stand independent MET 4. Stand-Sit independent NOT MET 5. Bed-Chair independent NOT MET 6. Chair-Bed independent NOT MET 7. Independent gait on level surface with use of least restrictive device for at least 300 feet without report of pain nor dyspnea NOT MET 8. Independent stair negotiation while holding onto bilateral rails for at least 15 steps without report of pain nor dyspnea NOT MET 9. Independent with home exercise program NOT MET 10. Good static and dynamic standing balance/tolerance NOT MET DISCHARGE RECOMMENDATIONS: Patient will need a front wheeled walker in order to maximize mobility level and reduce fall risk at discharge destination. Patient may benefit from long-term facility placement in order to progress mobility level, strength, and balance in preparation for a safe discharge to home. TREATMENT CODE/TIME: NC. Thank you very much for this referral. Franchesca Hawley PT, DPT, CLT [facility]
--- NOTE | 2019-05-01 16:27 | NUR.NOTE ---
Nursing Note: Pt changed to swingbed I status this afternoon. Med rec completed.
--- NOTE | 2019-05-04 09:50 | ROE_ITS ---
DATE OF PROCEDURE: May 01, 2019 PREOPERATIVE DIAGNOSIS: 1. Anemia. 2. Hematemesis. POSTOPERATIVE DIAGNOSIS: Cooper's esophagus. PROCEDURE: Esophagogastroduodenoscopy with distal esophageal biopsies. SURGEON: Kateryna Snyder M.D. ANESTHESIA: Monitored Anesthesia Care. INDICATIONS: This is a 73-year-old man who presented with anemia and failure to thrive. He reported either coughing or vomiting with flecks of blood present. He does have a history of chronic alcohol use. His admission hemoglobin was 6.9 and he has received a transfusion. He has otherwise had no e vidence of bleeding. PROCEDURE: He was placed in the left lateral decubitus position. Propofol was titrated to sedation. The scope was advanced into his esophagus under direct visualization and passed down into the stoma ch and duodenum. There is minimal duodenitis, which is not likely the source of his anemia. The sto mach itself was normal, including on retroflex view of the stomach and lesser curvature. There is no evidence of ulceration, significant gastritis or varices. The GE junction exhibited an area of addis negrita-type epithelium extending into the esophagus by about 2 cm. This was biopsied to confirm Cooper 's esophagus. There is no evidence of strictures, inflammation or varices. The scope was slowly wit hdrawn with no other esophageal lesions found. He tolerated the procedure well and was stable to rec overy.
== END 2019-05-01 15:55 | disposition swing bed (61) | DRG 812 ==
LOC: ER 21:06 → MS 21:42
PROVIDERS: Emergency Medicine; Surgery; Admitting Provider Family Medicine; Emergency Provider Emergency Medicine; PCP Family Medicine; Visit Provider Internal Medicine
PROC: 0DJ68ZZ Inspection of Stomach, Via Natural or Artificial Opening Endoscopic (ICD-10-PCS; CPT 43235; principal; 2019-05-01 12:45)
DX: D64.89 Other specified anemias (principal); E87.1 Hypo-osmolality and hyponatremia; R45.851 Suicidal ideations; N17.9 Acute kidney failure, unspecified; K92.0 Hematemesis; K22.70 Barrett's esophagus without dysplasia; D50.0 Iron deficiency anemia secondary to blood loss (chronic); Z73.89 Other problems related to life management difficulty; R53.1 Weakness; F32.9 Major depressive disorder, single episode, unspecified; E83.42 Hypomagnesemia; E87.6 Hypokalemia; R33.8 Other retention of urine; F10.129 Alcohol abuse with intoxication, unspecified; K29.80 Duodenitis without bleeding; R62.7 Adult failure to thrive; Y90.6 Blood alcohol level of 120-199 mg/100 ml; J44.9 Chronic obstructive pulmonary disease, unspecified; F17.210 Nicotine dependence, cigarettes, uncomplicated; Z60.2 Problems related to living alone; K20.9 Esophagitis, unspecified
CPT/HCPCS: 36415; 36430; 43239; 80048; 80053; 80307; 85027; 86850; 86900; 86901; 86920; 88305; 93005; 94640; 96361; 96374; 97162; 97530; 99222; 99232; 99239; 99253; 99285; J1650; 71046; 80320; 81003; 82607; 83540; 83550; 83735; 83880; 84100; 84443; 84484; 85014; 85018; 85025; 85610; 93010; G0378; J2060; J2250; J2310; J2405; J3010; J3475; J7620; P9016

== ENCOUNTER 2019-05-01 15:20 | Inpatient (IN) | payer MEDICARE, MEDICAID, SELFPAY ==
--- NOTE | 2019-05-01 15:25 | HPE_ITS ---
Date of service: 05/01/19 Time of Service: 15:25 Assessment and Plan (1) Alcohol use disorder: Current visit: No Status: Acute patient is stable with no issues with withdrawal. CIWA has been discontinued as he has not been scoring. will continue thiamine and MVI. (2) COPD (chronic obstructive pulmonary disease): Current visit: No Status: Chronic stable, will resume symbicort. can have albuterol and duoneb if needed. (3) Smoking hx: Current visit: No Status: Acute continue nicotrol inhaler (4) Anemia: Current visit: No Status: Chronic stable after 1 unit of PRBC. (5) Hematemesis: Current visit: No Status: Acute no further episodes. EGD today shows no significant findings. mild duodenitis. continue PPI (6) Discharge planning issues: Current visit: No Status: Acute case management following and will be making referrals for rehabilitation as he remains too deconditioned to safely return home. continue PT/OT. History of Present Illness Chief Complaint: weakness Narrative: this is a 73 year old male with a history of alcohol abuse who was admitted to med/surg after presenting to the ED for alcohol intoxication, failure to thrive at home, and suicidal ideation. He did not experience acute alcohol withdrawal or DT's. He reported hematemesis and did drop H&H, thought to be dilutional as there was no active bleeding. He received 1 unit of PRBC's and his H&H has remained stable. He did undergo an upper endoscopy and no gastritis, esophageal varices, or significant findings. There was some mild duodenitis. recommendations for PPI at discharge. Mental health continued to follow him and he was accepted at the [facility] for inpatient psychiatric management but now sober and after re-screening he was deemed safe for discharge to home. He has been working with physical therapy and remains deconditioned and it is felt he can benefit from inpatient PT/OT prior to returning home. case management has been following and will make referrals to for rehabilitation. Review of Systems Constitutional Reports as per HPI Cardiovascular Denies chest pain, Denies syncope, Denies edema and Reports dyspnea on exertion Respiratory Reports cough and Reports dyspnea on exertion Gastrointestinal Denies abdominal pain and Reports constipation Musculoskeletal Reports muscle weakness Neurologic Denies syncope [facility] Medical History Alcohol use disorder (Acute) COPD (chronic obstructive pulmonary disease) (Chronic) Smoking hx (Acute) Social History Smoking/Tobacco Use Status: Current every day Tobacco Type: cigarettes Alcohol Intake: current Alcohol Intake frequency: 3 or more drinks per day Drug use: Never Substance use type: does not use Do you feel safe at home: Yes Do you feel safe in your relationship?: Yes Additional Social history: Lives alone in apartment in [facility] for past ~6 years, closest family brother Owen in [place], [place] 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[employer], 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 Medication Instructions Recorded Confirmed Type alum-mag hydroxide-simeth [Mag-Al 30 ml PO Q2H PRN PRN #120 ml 05/01/19 Rx Plus] budesonide-formoterol [Symbicort] 2 puff INHALATION BID #1 g 05/01/19 Rx multivitamin [Multiple Vitamins] 1 tab PO DAILY #30 tab 05/01/19 Rx nicotine [Nicotrol] 30 cartridge INHALATION 05/01/19 Rx DIRECTED PRN #10 ea pantoprazole 40 mg PO DAILY #30 tab 05/01/19 Rx tamsulosin 0.4 mg PO DAILY #30 cap 05/01/19 Rx thiamine mononitrate (vit B1) 100 mg PO DAILY #30 tab 05/01/19 Rx [Vitamin B-1 (mononitrate)] Allergies Allergy/AdvReac Type Severity Reaction Status Date / Time bupropion AdvReac Severe seizures Verified 04/27/19 22:19 Exam Const General: no acute distress and ill appearing (older than stated age) chronically Nutritional Appearance: thin Orientation: alert, awake and oriented x3 [facility] Head: normocephalic and atraumatic Mouth: moist mucous membranes Resp Effort & Inspection: normal respiratory effort and able to speak in complete sentences Auscultation: clear to auscultation bilaterally Cardio Rate: regular rate Rhythm: regular rhythm GI Inspection: normal to inspection Palpation: soft Auscultation: normal bowel sounds Skin General skin exam: no rashes or lesions noted Neuro General: alert, awake and oriented x3 Extrem General: normal to inspection and full ROM
--- NOTE | 2019-05-01 16:19 | CM.SBPSYCH ---
SB Psychosocial/Act.Assessment - Hospital Admission Admission Date: 04/28/19 Admission From:: Home/ER Diagnosis:: Failure to thrive, anion gap acidosis - Swing Bed Admission Swing Bed Admit Date:: 05/01/19 Swing Bed Level of Care: Level 1/SNF - Social Supports PREVIOUS FUNCTIONAL STATUS/SOCIAL/FAMILY SUPPORTS:: Khoi lives alone in an apartment in [facility] he was in both the [employer] and the [employer]. He has a brother that is supportive and lives in [place]. Prior to admission, Khoi was previously independent with ADL's. - Prior to Admission Living Arrangements/Environment Prior to Admission:: Khoi resides alone in an apartment in [facility]. His brother Owen resides in [place] and is his primary support person. Khoi is VA connected and has a CM through [employer]; Mary Renteria. Previously Khoi reports being independent with ADLs, currently though he presents with SOB with activity and weakness. He reports not driving at this time. - : Yes - Benefits Financial: Medicare, Medicaid, VA Health Benefits - Present Functional Status Physical Abilities:: Deconditioned Cognitive:: Alert Communication:: Purposeful Sensory Systems: Intact Behavior:: Pleasant, requires support for motivation - Medical History PAST MEDICAL HISTORY/PAST SURGICAL HISTORY:: Depression, renal insufficiency, ETOH abuse, COPD, tobacco use. General Health:: Poor Past Psychiatric Treatment:: Unknown - Admission Data Reason for Swing Bed Admission:: PT services for period of strengthening prior to returning home. Discharge Plan:: SNF or Home with VNA Assessment: SWB1 for PT until SNF is secured. Dragline Engineer: Haydee Bravo Date Assessment was completed:: 05/01/19
--- NOTE | 2019-05-01 16:26 | CMSCP_ITS ---
Swingbed Plan of Care Plan of care: SWING BED PROGRAM ACTIVITIES/DISCHARGE PLAN OF CARE ACTIVITIES PLAN Date: 05/01/19 Identified Need: Physical Therapy; Strengthening. Intervention/Plan: Initiate Physical Therapy intervention for strengthening, bed mobility, transfers, gait, stairs, balance training, use of assistive device. Initials [facility] DISCHARGE PLAN Date: 05/01/19 Identified Need: Increased psycho/social supports. Plan will continue to develop during admission and will be provided to E COMMERCE MERCHANDISING COORDINATOR at SNF if bed offer is provided and Khoi discharges to SNF. Intervention/Plan: New referrals for [facility], OT, RN, E COMMERCE MERCHANDISING COORDINATOR, as well as [facility] supports. Declined MOW. Attached to Mary GOULD at [facility]. Provide resources for home cleaning supports. FWW will be provided in event Khoi is discharged to home from [facility]. Initials: JONAH
--- NOTE | 2019-05-01 16:26 | CM.SWINGPC ---
Swingbed Plan of Care Plan of care: SWING BED PROGRAM ACTIVITIES/DISCHARGE PLAN OF CARE ACTIVITIES PLAN Date: 05/01/19 Identified Need: Physical Therapy; Strengthening. Intervention/Plan: Initiate Physical Therapy intervention for strengthening, bed mobility, transfers, gait, stairs, balance training, use of assistive device. Initials [facility] DISCHARGE PLAN Date: 05/01/19 Identified Need: Increased psycho/social supports. Plan will continue to develop during admission and will be provided to CHICLE GRINDER FEEDER at SNF if bed offer is provided and Khoi discharges to SNF. Intervention/Plan: New referrals for [facility] PT, OT, RN, CHICLE GRINDER FEEDER, as well as [facility] supports. Declined MOW. Attached to Mary GOULD at [facility]. Provide resources for home cleaning supports. FWW will be provided in event Khoi is discharged to home from [facility]. Initials: JONAH
--- NOTE | 2019-05-01 16:27 | PT.INIE ---
Date of service: 05/01/19 Time of Service: 15:33 PT Notes Inpatient Physical Therapy Evaluation Date: 05/01/2019 Referring Doctor: Rose Wagoner NP PT Orders: PT CONSULT: Generalized weakness following hospitalization for acute alcohol intoxication. Precautions: Fall. Standard. Suicide precautions Patient Profile/Admitting Diagnosis: Patient is discharged from acute care level and is re-evaluated under swing bed level as of today for continued skilled physical therapy services for mobility progression. Patient is a 73-year-old male with a past medical history significant for alcohol abuse and COPD who presented to the ED on 04/27/2019 with chief complaints of failure to thrive, generalized weakness, poor self home care and ongoing uncontrollable daily use of alcohol and cigarettes. Patient is diagnosed with alcohol withdrawal, COPD, renal insufficiency, anemia, metabolic acidosis, failure to thrive, and depression. PMHX: Medical History (Updated 04/27/19 @ 22:34 by Prashant Rosales) Alcohol use disorder (Acute) COPD (chronic obstructive pulmonary disease) (Chronic) Smoking hx (Acute) Social History/Home Situation: Patient lives alone in an aprtment with 15 steps to get in with a rail on the right going up. He was independent with all aspects of ADLs without the need for an assistive ambulatory device nor adaptive equipment although he stated that recently it has been very difficult to do so due to weakness and uncontrolled alcoholism. Current Functional Limitations: Need for assistance for all transfer front wheeled walker. Equipment Owned/DME: None but will need a FWW. Subjective: Patient needed considerable encouragement to participate in evaluation at the start but somehow began to get interested with walking towards the middle of the session. He denies dizziness, chest pain, palpitations, and shortness of breath after ambulation activity. He still complains of being weak and being tired from not being able to sleep well these past nights. Objective: General Observation: Patient seen resting in bed, sleepy. IV in L UE. In paper clothing. Mental Status: Alert and oriented x 4 Pain: 0/10 ROM: Right Upper Extremity: Shoulder Flexion WFL. Shoulder abduction WFL. Elbow flexion WFL. Wrist flexion WFL. Functional opening and closing of hand WFL. Left Upper Extremity: Shoulder Flexion WFL. Shoulder abduction WFL. Elbow flexion WFL. Wrist flexion WFL. Functional opening and closing of hand WFL. Right Lower Extremity: Hip flexion WFL. Hip abduction WFL. Knee flexion WFL. Ankle dorsiflexion WFL. Ankle plantarflexion WFL. Left Lower Extremity: Hip flexion WFL. Hip abduction WFL. Knee flexion WFL. Ankle dorsiflexion WFL. Ankle plantarflexion WFL. Strength: Right Upper Extremity: Shoulder flexors 5/5. Shoulder abductors 5/5. Elbow flexors 5/5. Elbow extensors 5/5. Screw Machine Repairer strong. Left Upper Extremity: Shoulder flexors 5/5. Shoulder abductors 5/5. Elbow flexors 5/5. Elbow extensors 5/5. Screw Machine Repairer strong. Right Lower Extremity: Hip flexors 5/5. Hip abductors 5/5. Knee flexors 5/5. Knee extensors 5/5. Ankle dorsiflexors 5/5. Ankle plantarflexors 5/5. Left Lower Extremity:Hip flexors 5/5. Hip abductors 5/5. Knee flexors 5/5. Knee extensors 5/5. Ankle dorsiflexors 5/5. Ankle plantarflexors 5/5. Sensation: Intact as to pain and pressure on bilateral lower extremities. Bed Mobility/Transfers: Rolling independent Supine to sit independent Sit to supine independent Sit to stand supervision Stand to sit supervision Bed to chair supervision Chair to bed supervision Gait: Patient was able to tolerate level surface ambulation with front wheeled walker with FWB and SBA office PT of up to 80 feet x 2 with decreased step height and length observed as well as decreased gait velocity. Minimal verbal cueing needed during turning and for safe walker management. Balance: Static Sitting: Normal Dynamic Sitting: Normal Static Standing: Good Dynamic Standing: Fair Special Tests: Mobility Limitations Standardized Measure [facility] AM-PAC 6 clicks Basic Mobility Inpatient Short Form: Raw Score: 22 CMS Score: 21% deficit Informed Consent/Education: Patient instructed in purpose of PT consult and plan of care. The benefits of continued and regular participation in physical therapy has been reiterated with patient today in order to facilitate mobility progression in anticipation of going to a [facility] facility and then eventually to home alone. Assessment: Patient presents with clinical signs and symptoms consistent with current/admitting diagnoses that have resulted to mobility limitations, gait instability, generalized weakness, and impairment of motor control as demonstrated by the following impairment level findings: 1. Decreased strength to B LE major muscle groups 2. Impaired sitting/standing balance 3. Impaired activity tolerance Impairments are contributing to the following functional limitations: 1. Dependent bed mobility skills 2. Increased dependence with transfers 3. Inability to safely ambulate without assistive device and physical assistance 4. Increase completion time for mobility ADL performance 5. Increased fall risk 6. Inability to negotiate steps alone safely Patient is assessed as a 78058 moderate complexity based on the following: History: 73-year-old male with diagnosis of alcohol withdrawal, COPD, renal insufficiency, anemia, anion gap metabolic acidosis, failure to thrive, and depression with premorbid independent level but with low motivation Examination: Demonstrable impairment in strength, balance, and range of motion with underlying impairments and functional limitations as documented above Presentation:Evolving Decision Makin moderate complexity Goals: Goals X1 week 1. Supine-Sit independent 2. Sit-Supine independent 3. Sit-Stand independent 4. Stand-Sit independent 5. Bed-Chair independent 6. Chair-Bed independent 7. Independent gait on level surface with use of least restrictive device for at least 300 feet without report of pain nor dyspnea 8. Independent stair negotiation while holding onto bilateral rails for at least 15 steps without report of pain nor dyspnea 9. Independent with home exercise program 10. Good static and dynamic standing balance/tolerance Plan of Care/Treatment Plan: 1-2x/day, 7 days/week x 1 week. Plan of care has been reviewed with the SPACE SYSTEMS OPERATIONS SUPERINTENDENT providing the service under Physical Therapy direction. Initiate Physical Therapy intervention for strengthening, bed mobility, transfers, gait, stairs, balance training, use of assistive device. DISCHARGE RECOMMENDATIONS: Patient will need a front wheeled walker in order to maximize mobility level and reduce fall risk at discharge destination. Patient may benefit from long-term facility placement in order to progress mobility level, strength, and balance in preparation for a safe discharge to home. TREATMENT CODE/TIME: 61524 x 35 minutes beginning at 15:33 PM. Thank you very much for this referral. Franchesca Hawley PT, DPT, CLT [facility]
--- NOTE | 2019-05-01 16:28 | NUR.NOTE ---
Nursing Note: Pt's status changed from MS acute to swingbed status. Med rec completed.
[2019-05-01 16:50] VITALS: BP 108/66; PULSE 96; RESP 18; TEMP 37.2; O2SAT 98
[2019-05-01 19:30] VITALS: O2SAT 98
[2019-05-01] MEDS: Pantoprazole 40 MG TABCR PO (19:36)
[2019-05-01] MEDS: Magnesium Chloride 64 MG TABCR 128 MG PO (19:36)
[2019-05-01] MEDS: LORazepam 1 MG TAB PO (19:36)
[2019-05-01] MEDS: Budesonide/Formoterol 160/4.5 6 GM 60 PUFF INH IH (19:37)
[2019-05-02] MEDS: Pantoprazole 40 MG TABCR PO ×2 (07:29→19:37)
[2019-05-02] MEDS: Magnesium Chloride 64 MG TABCR 128 MG PO ×2 (07:29→19:37)
[2019-05-02] MEDS: Thiamine 100 MG TAB PO (07:33)
[2019-05-02] MEDS: Cyanocobalamin 500 MCG TAB 1000 MCG PO (07:33)
[2019-05-02] MEDS: Tamsulosin 0.4 MG CAPCR PO (07:33)
[2019-05-02] MEDS: Multivitamin TAB 1 TAB PO (07:33)
[2019-05-02] MEDS: Folic Acid 1 MG TAB PO (07:34)
[2019-05-02] MEDS: Budesonide/Formoterol 160/4.5 6 GM 60 PUFF INH IH ×2 (08:36→19:37)
[2019-05-02 09:00] VITALS: BP 128/75; PULSE 110; RESP 20; TEMP 36.7; O2SAT 98
--- NOTE | 2019-05-02 09:20 | PT.INTREAT ---
Date of service: 05/02/19 Time of Service: 09:20 PT Notes Inpatient Physical Therapy Treatment Note [facility] Date: 05/02/2019 PRECAUTIONS: Fall SUBJECTIVE: Rufino states that he is feeling better today, he is agreeable to participation in PT. He reports that he is feeling stronger than he was several days ago, although from continued rehab before returning home. Rufino also states that he does not use a FWW at home, and when he returns home he does not plan to use one at that time. OBJECTIVE: Rufino appears to be in better spirits today, is conversational and appears to be excited about his progress. PAIN: No complaints of pain BED MOBILITY/TRANSFERS Supine-sit: I Sit-supine: I Sit-stand: I Stand-sit: I GAIT Assistive Device: FWW Weight bearing: Full Assist: SBA Distance: 50' +100' Deviation: Increased/appropriate pacing, seated rest x1 STAIRS: Up/down 9?4 and 6?6 using B rails and a step-to/step-over pattern, independently ASSESSMENT: Patient tolerated session well, with minimal complaints of increased fatigue with activity. Patient was able to tolerate gait training with SBA and FWW support, requiring seated rest x1. Patient is demonstrating more appropriate and increased pacing with gait training at this time. Patient demonstrates independence with all bed mobility and transfers at this time as well. Patient would benefit from continued gait training for improved activity tolerance. PLAN: Continue with PTs POC TREATMENT CODE/TIME: 20 minutes; 55562
[2019-05-02 19:40] VITALS: O2SAT 98
[2019-05-02] MEDS: LORazepam 1 MG TAB PO (19:42)
[2019-05-03] MEDS: Folic Acid 1 MG TAB PO (07:22)
[2019-05-03] MEDS: Thiamine 100 MG TAB PO (07:22)
[2019-05-03] MEDS: Cyanocobalamin 500 MCG TAB 1000 MCG PO (07:22)
[2019-05-03] MEDS: Pantoprazole 40 MG TABCR PO ×2 (07:22→19:56)
[2019-05-03] MEDS: Tamsulosin 0.4 MG CAPCR PO (07:23)
[2019-05-03] MEDS: Multivitamin TAB 1 TAB PO (07:23)
[2019-05-03] MEDS: Magnesium Chloride 64 MG TABCR 128 MG PO ×2 (07:23→19:56)
[2019-05-03] MEDS: Budesonide/Formoterol 160/4.5 6 GM 60 PUFF INH IH ×2 (07:23→19:56)
[2019-05-03 07:33] VITALS: BP 148/92; PULSE 93; RESP 19; TEMP 36.3; O2SAT 97
[2019-05-03 09:19] VITALS: O2SAT 97
--- NOTE | 2019-05-03 09:23 | PT.INNT ---
Date of service: 05/03/19 Time of Service: 09:23 PT Notes 05/03/2019 Patient refused morning PT session, stating I had breakfast, and now I feel sick to my stomach. I just need to get some rest. Patient reports that he was up walking in the hallways with nursing yesterday, and plans to do so again this afternoon when he is feeling better. Will attempt to resume PT services tomorrow morning.
--- NOTE | 2019-05-03 12:17 | CMPROGNOTE_ITS ---
- If Service Date Differs Date of service: 05/03/19 Time of Service: 12:17 Care Management Progress Note S/O: CM contacted the local lean coach who came into meet with the patient. Rufino is concerned about returning home r/t the mess and concerns that he will be triggered. Rufino is doing well with PT he is now up independently and will need home health services, for PT, OT, nursing and BIOFUELS PLANT OPERATIONS ENGINEER he will also need VA supports and [place] on aging as well as recovery support. He would benefit from staying in the hospital for at least one more night until services can be contacted Saturday morning and he can be supported at time of discharge. motor coach operator Shahrzad will return tomorrow to see the patient and to bring with her a VA trampoline team coach as well to assist in connecting Rufino to the VA supports as well. P: Discharge home on Saturday with community supports including, lean coach, VA connection, and and [facility] services for ongoing support. motor coach operator can provide transpiration home vs RCT.
--- NOTE | 2019-05-03 12:17 | PDOC.CMPRO ---
- If Service Date Differs Date of service: 05/03/19 Time of Service: 12:17 Care Management Progress Note S/O: CM contacted the local reading recovery teacher who came into meet with the patient. Rufino is concerned about returning home r/t the mess and concerns that he will be triggered. Rufino is doing well with PT he is now up independently and will need home health services, for PT, OT, nursing and LINE SERVICER he will also need VA supports and [place] on aging as well as recovery support. He would benefit from staying in the hospital for at least one more night until services can be contacted Saturday morning and he can be supported at time of discharge. defensive line coach Shahrzad will return tomorrow to see the patient and to bring with her a VA assistant womens volleyball coach as well to assist in connecting Rufino to the VA supports as well. P: Discharge home on Saturday with community supports including, reading recovery teacher, VA connection, and and COA services for ongoing support. defensive line coach can provide transpiration home vs RCT.
[2019-05-03] MEDS: Normal Saline Flush 10 ML SYR IVP (17:41)
[2019-05-03] MEDS: LORazepam 1 MG TAB PO (19:56)
[2019-05-04] MEDS: Magnesium Chloride 64 MG TABCR 128 MG PO ×2 (08:34→20:15)
[2019-05-04] MEDS: Tamsulosin 0.4 MG CAPCR PO (08:34)
[2019-05-04] MEDS: Cyanocobalamin 500 MCG TAB 1000 MCG PO (08:34)
[2019-05-04] MEDS: Multivitamin TAB 1 TAB PO (08:35)
[2019-05-04] MEDS: Folic Acid 1 MG TAB PO (08:35)
[2019-05-04] MEDS: Thiamine 100 MG TAB PO (08:35)
[2019-05-04] MEDS: Pantoprazole 40 MG TABCR PO ×2 (08:36→20:16)
--- NOTE | 2019-05-04 09:36 | OTIE_ITS ---
Occupational Therapy Notes Inpatient Occupational Therapy Evaluation Date: 05/04/19 Referring Doctor:Rose Wagoner NP OT Orders: generalized weakness following hospitalization for acute alcohol intoxication Precautions: Standard PATIENT PROFILE/ADMITTING DIAGNOSIS: Pt is a 73 year old male who is currently admitted to [facility] on Med Surg for generalized weakness following hospitalization for acute alcohol intoxication and alcohol abuse. Past Medical History: Medical History (Updated 04/27/19 @ 22:34 by Prashant Rosales) Alcohol use disorder (Acute) COPD (chronic obstructive pulmonary disease) (Chronic) Smoking hx (Acute) Social History/Home Situation: Pt lives alone. He has a brother who texts him every saturday. He reports that he is (I) with all ADLs/IADLs but when he drinks he struggles with his performance in this. He notes that he has a tub/shower combination which he is unable to transfer in to and why OT recommends a shower bench. 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 He does not socialize on a regular basis. He says his recent routine was eat, drink and sleep. Until he ran out of alcohol and then he would go to the store and buy more. He reports that he was (I) with eating and toileting but notes that he started to be unable to control his bowels and bladder which then limited him in his functional (I). He reports that today was his first shower in almost over a month. Equipment owned/DME: None SUBJECTIVE: Pt was working with LEAD RADIATION THERAPIST in the shower room when OT arrived. He notes that he is anxious about what happens next. He is nervous about performing stairs and how his meals will work. He states that he is also anxious that he may return to his old habits when he walks in his door. 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 He served with the [employer] when he was younger to avoid being drafted. He states that he met his when serving and reports that she always had mental health issues. He remembers working multiple jobs as they had two children and his had him served with divorce papers one day when he was at work. He mentions that this is devastating to him and a major turning point in his . Through the divorce he then states that he lost custody of his daughter to her grandparents when he didn't show up for the custody hearing. He brought his [place] with him to [place]. He mentions that this plays through his mind all the time. He states he has a lot of guilt. He talks about his committing suicide noting that he himself was on suicide precautions but that he feels it was his depression and alcohol getting the best of him and that he never made a plan. He speak a lot about how hard life is and how it is never what it seems. He notes that he would like someone to be there with him through this process because he is scared. He is scared that he has so many unknowns and he is not sure where he is going next. Pt then states that he is agreeable to OT session and is open to any help that he can get. OBJECTIVE: General Observation: Pt is anxious, he has a (B) UE tremor when speaking about where he is going to next. He is able to answer questions appropriately. Mental Status: A&Ox4 Pain: no c/o pain ROM: RUE AROM WNL L UE Shoulder flexion limited to 150* with excessive shoulder substitution, pt reports this is chronic, elbow, hand and digits WNL STRENGTH: RUE Shoulder flexion 4-/5, bicep 4/5, tricep 4/5, inspector multifocal lens is strong and symmetrical. LUE Shoulder flexion 4-/5, bicep 4/5, tricep 4/5, inspector multifocal lens is strong and symmetrical. FUNCTIONAL MOBILITY/ADLS: Transfers without assistive device Sit-Stand (I) Stand-sit (I) Shower-bed (S) BATHING Pt took a shower with LEAD RADIATION THERAPIST-per LEAD RADIATION THERAPIST report Bathing UE Max (A) back, otherwise (I) UE Bathing LE Max (A) lower legs and (B) feet DRESSING Pt performed dressing routine with LEAD RADIATION THERAPIST-per LEAD RADIATION THERAPIST report Dressing UE Sitting on shower bench min (A) with donning shirt Dressing LE Sitting on shower bench min (A) with donning pants with max (A) donning (B) socks GROOMING Sitting pt is able to (I) brush hos own hair and irwin. TOILETING (I) on toilet EATING NT BALANCE: Static sitting Normal Dynamic Sitting Normal Static Standing Normal Dynamic Standing Good SPECIAL TESTS: Daily Activity Limitations [facility]? Daily Activity Inpatient Short Form: Raw score: 22 Standardized score: 47.10 CMS score: 25.80% INFORMED CONSENT/EDUCATION: Pt instructed in purpose of OT Consult and plan of care. ASSESSMENT: Patient is a 73-year-old male referred to occupational therapy services with diagnosis of generalized weakness following hospitalization for acute alcholism intoxication. Patient presents with clinical signs and symptoms consistent with dx. Pt is able to demonstrate increased (I) in his ADL/ IADL routines. He has the AROM needed to perform ADLs (I) and his overall UE strength is within normal limits. Pt is anxious this is due to change in routine from the hospital and he reports that he is going home which makes him nervous. He was receptive to education on establishing a good routine for his ADLs to keep him going throughout his morning. He reports that the next step might be going into a rehab facility. Pt functionally will require a consistent routine and even simple occupations to increase his overall (I) in his home setting. He has decline in ability to cook for himself. OT does feel that pt may benefit from meals on wheels if pt qualifies for this program. Pt is receptive to supports and plan is for pt to return home today. Based on this OT will not pick pt up for skilled OT services. OT will formally discharge pt from skilled OT services at this time. AMPAC score 22, CMS score 25.80% Patient is assessed as a Low 64283 complexity based on the following: History: See Above Examination: See Above Presentation: Evolving Decision Making: AMPAC score 22, CMS score 25.80% GOALS N/A PLAN OF CARE/TREATMENT PLAN: OT consult only. Plan is for pt to be discharged home today when medically cleared per MD. DISCHARGE RECOMMENDATIONS Home with OT assessment of home ADLs/IADLs and DME needs. Alcohol Support continued in the community OT recommends that pt have a shower bench, grab bars, and removeable shower head to increase pt's safety and (I) with his bathing routine. Removeable shower head to increase pts functional (I) and to decrease exacerbation of COPD when performing bathing routine. TREATMENT TIME/MINUTES/CODES 26743, [id number], 45 minutes (08:50) Viji Brown, OTR/L [facility]
--- NOTE | 2019-05-04 11:08 | PT.INNT ---
Date of service: 05/04/19 Time of Service: 11:08 PT Notes 05/04/19 Patient refused morning PT session stating that he is too cold and he just wants to rest for now. He requests that I come back to work with him this afternoon. Will attempt to resume PT services this afternoon.
[2019-05-04 12:34] VITALS: BP 124/81; PULSE 60; RESP 16; TEMP 36.3; O2SAT 99
--- NOTE | 2019-05-04 13:00 | W.PM.PROGNOT ---
Date of Service Date of service: 05/04/19 Time of Service: 13:00 Subjective Interval history since last seen: Discharge pending tomorrow to H/R at 11 in wheelchair van. Objective Objective Clinical Data: Vital Signs Temperature 36.3 C L 05/04/19 12:34 Temperature Source Tympanic 05/04/19 12:34 Pulse 60 05/04/19 12:34 Pulse Rhythm Regular 05/04/19 08:05 Respiratory Rate 16 05/04/19 12:34 Respiratory Effort Non-Labored 05/04/19 08:05 Respiratory Depth Shallow 05/04/19 08:05 Respiratory Pattern Normal 05/04/19 08:05 Blood Pressure 124/81 05/04/19 12:34 Pulse Oximetry 99 05/04/19 12:34 Oxygen Delivery Method Room Air 05/04/19 12:34 Oxygen Flow Rate 0 05/04/19 12:34 Pain Level 0 05/03/19 07:33 Intake & Output 05/03/19 05/04/19 05/04/19 23:59 11:59 23:59 Intake Total 1210 / 2090 240 / 240 Balance 1210 / 2090 240 / 240 Intake: IV Oral 1200 / 2080 240 / 240 Other: Urine Appearance Clear Clear Comment Urine not seen but pt reports voiding independently with no issues. Voiding Methods Toilet
--- NOTE | 2019-05-04 13:15 | PT.INTREAT ---
Date of service: 05/04/19 Time of Service: 13:15 PT Notes Inpatient Physical Therapy Treatment Note [facility] Date: 05/04/19 PRECAUTIONS: Fall SUBJECTIVE: Rufino states that he is not feeling well, he has not slept well and feels anxious about all of the decisions he has had to make recently. Following some encouragement, he is agreeable to participating in PT. OBJECTIVE: PAIN: Patient c/o upset stomach t/o session BED MOBILITY/TRANSFERS Supine-sit: I Sit-supine: I Sit-stand: I Stand-sit: I GAIT Assistive Device: SPC Weight bearing: Full Assist: SBA Distance: 250' Deviation: Minimal path deviation ASSESSMENT: Patient tolerated a progression in gait distance with SPC support and SBA. He demonstrates minimal path deviation with SPC support, with self-recovery. He would benefit from continued gait training and global strengthening. PLAN: Continue with PT's POC TREATMENT CODE/TIME: 10 minutes; [id number]
--- NOTE | 2019-05-04 18:28 | NUR.NOTE ---
Patient was up sitting at the bedside eating dinner, he answers a few questions , but larson s not think he needs a full assessment, denies pain or sob, feels he is eating what he needs to sustain himself. stated he had no needs at this time, stated he was going to eat dinner than go to sleep
[2019-05-04 19:30] VITALS: BP 126/77; PULSE 93; RESP 20; TEMP 36.7; O2SAT 98
[2019-05-04] MEDS: Budesonide/Formoterol 160/4.5 6 GM 60 PUFF INH IH (20:06)
[2019-05-04] MEDS: Melatonin 3 MG TAB PO (23:12)
[2019-05-04 23:51] VITALS: BP 147/77; PULSE 103; RESP 18; TEMP 36.6; O2SAT 99
[2019-05-05] MEDS: Budesonide/Formoterol 160/4.5 6 GM 60 PUFF INH IH (07:29)
--- NOTE | 2019-05-05 07:32 | RESPIRATORY ---
pt awake and alert. BS clear bilat HR 66 RR 20 and sats on room air 97%. tolerated tx well.
[2019-05-05 08:37] VITALS: BP 137/80; PULSE 66; RESP 21; TEMP 36.5; O2SAT 97
[2019-05-05] MEDS: Cyanocobalamin 500 MCG TAB 1000 MCG PO (09:01)
[2019-05-05] MEDS: Magnesium Chloride 64 MG TABCR 128 MG PO (09:02)
[2019-05-05] MEDS: Pantoprazole 40 MG TABCR PO (09:02)
[2019-05-05] MEDS: Tamsulosin 0.4 MG CAPCR PO (09:02)
--- NOTE | 2019-05-05 09:38 | W.PM.DS.N ---
Date of service: 05/05/19 Time of Service: 09:38 DS: Diagnosis Discharge Diagnosis (1) Alcohol use disorder: Status: Acute (2) COPD (chronic obstructive pulmonary disease): Status: Chronic (3) Smoking hx: Status: Acute (4) Anemia: Status: Chronic (5) Hematemesis: Status: Acute Discharge Plan Disposition Patient Disposition: SNF (LEVEL 1) [facility] Condition: Improving Discharge Details Reason For Visit: ALCOHOL ABUSE Admit Date/Time: 05/01/19 15:20 Admit Provider: Ca Arnold Attending Provider: Ca Arnold Primary Care Provider: Antonio Flood Hospital Course Hospital Course: Mr. Calero is a 73 year old man with a past medical history significant for alcohol abuse, COPD, and depression who presented to the ED on 04/27/19 after his brother found him in his apartment. He was weak and unkempt, his apartment was in disarry. He is a chronic consumer of alcohol and had a MUSA of 158 on admission. He was admitted to the med/surg floor and placed on the CIWA protocol. He was monitored on the CIWA protocol and did not experience acute alcohol withdrawal or DTs. He reported hematemesis and experienced a drop in his hemoglobin and hematocrit. He received one unit of PRBCs. On 05/01 he had an EGD with biopsies. He did not have gastritis, esophageal varices, or significant findings. There was some mild duodenitis. General Surgery made recommendations for PPI at discharge. He was seen by Mental Health. There was a plan to transfer him to the [place] for inpatient psychiatric management, however, he was rescreened after he no longer had alcohol in his system and was found to be safe for discharge home. He remained deconditioned and had been working with PT, who recommended ongoing PT/OT prior to returning home. He was transitioned to swing bed status on 05/01. He has been accepted at [facility] and will transfer today. He will remain on PPI therapy at discharge. He will have follow up labs to reassess his hemoglobin and hematocrit. Home Meds and New Rx's Prescriptions: New pantoprazole 40 mg Tablet,Delayed Release (Dr/Ec) 40 mg PO BID@ Qty: 0 RF: 0 cyanocobalamin (vitamin B-12) [Vitamin B-12] 500 mcg Tablet 1,000 mcg PO DAILY Qty: 0 RF: 0 melatonin 3 mg Tablet Extended Release 3 mg PO HS PRN PRN (Reason: Insomnia) Qty: 0 RF: 0 magnesium chloride [Mag 64] 64 mg Tablet,Delayed Release (Dr/Ec) 128 mg PO BID Qty: 0 RF: 0 Continued multivitamin [Multiple Vitamins] Tablet 1 tab PO DAILY Qty: 30 RF: 0 Nicotrol 10 mg Cartridge 30 cartridge inhalation DIRECTED PRNQty: 10 RF: 0 tamsulosin 0.4 mg Capsule 0.4 mg PO DAILY Qty: 30 RF: 0 alum-mag hydroxide-simeth [Mag-Al Plus] 200-200-20 mg/5 mL Suspension 30 ml PO Q2H PRN PRNQty: 120 RF: 0 Symbicort 160-4.5 mcg/actuation Hfa Aerosol Inhaler 2 puff inhalation BID Qty: 1 RF: 0 thiamine mononitrate (vit B1) [Vitamin B-1 (mononitrate)] 100 mg Tablet 100 mg PO DAILY Qty: 30 RF: 0 Discontinued pantoprazole 40 mg Tablet,Delayed Release (Dr/Ec) 40 mg PO DAILY Qty: 30 RF: 0 Discharge Instructions Instructions: Abuse of Alcohol (DC) Stand Alone Forms: Nursing Discharge Form Activity:: Activity as Tolerated Equipment/Supplies:: No Equipment Needed Diet:: As Tolerated Discharge Orders Discharge Orders: Discharge Order (Routine); Ordered 05/05/19 Ordered By: Sheridan Ndiaye Other Ambulatory Orders: Basic Metabolic Panel (Routine) Timeframe: 3 Days Location: None Selected Ordered By: Sheridan Ndiaye Complete Blood Count No Diff (Routine) Timeframe: 3 Days Location: None Selected Ordered By: Sheridan Ndiaye Magnesium (Routine) Timeframe: 3 Days Location: None Selected Ordered By: Sheridan Ndiaye Exam Narrative Exam Narrative: General: laying in bed, appears stated age, resting with eyes closed, awakens easily to voice. Answers questions appropriately. In NAD. HEENT: normocephalic, atraumatic, pupils equal and round, EOMI, mucous membranes moist, dentures. Long irwin. Cardiovascular: distant heart sounds. Nontacycardic, regular rate and rhythm. No murmur appreciated. Respiratory: respirations even and unlabored. Lung sounds with rhonchi bilateral bases, some clearing with coughing. No rales. GI: Normoactive bowel sounds x4 quadrants. Abdomen soft, nondistended, nontender on palpation. Extremities: Well-perfused, no clubbing, cyanosis or edema. Pedal pulses palpable bilaterally. DS: Data Vitals/I&O Vitals and I&O: Vital Signs Temperature 36.5 C 05/05/19 08:37 Temperature Source Tympanic 05/05/19 08:37 Pulse 66 05/05/19 08:37 Pulse Rhythm Regular 05/04/19 23:58 Respiratory Rate 21 05/05/19 08:37 Respiratory Effort 05/04/19 23:58 Respiratory Depth Normal 05/04/19 23:58 Respiratory Pattern Normal 05/04/19 23:58 Blood Pressure 137/80 05/05/19 08:37 Pulse Oximetry 97 05/05/19 08:37 Oxygen Delivery Method Room Air 05/05/19 08:37 Oxygen Flow Rate 0 05/05/19 08:37 Pain Level 0 05/05/19 08:37 Intake & Output 05/04/19 05/04/19 05/05/19 11:59 23:59 11:59 Intake Total 160 / 650 490 / 650 Balance 160 / 650 490 / 650 Intake: IV Oral 160 / 640 480 / 640 Other: Urine Appearance Clear Clear Comment Pt voiding in toilet ad jorge. Asked pt to void in hat for RN to assess. PT OOB DURING NOC AND VOIDED INDEPENDENTLY Voiding Methods Toilet [facility] Medical History Alcohol use disorder (Acute) COPD (chronic obstructive pulmonary disease) (Chronic) Smoking hx (Acute) Social History Smoking/Tobacco Use Status: Current every day Tobacco Type: cigarettes Alcohol Intake: current Alcohol Intake frequency: 3 or more drinks per day Drug use: Never Substance use type: does not use Do you feel safe at home: Yes Do you feel safe in your relationship?: Yes Additional Social history: Lives alone in apartment in [facility] for past ~6 years, closest family brother Owen in [place], [place] 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
--- NOTE | 2019-05-07 12:38 | INDS_ITS ---
Date of service: 05/07/19 Time of Service: 12:38 PT Notes Inpatient Physical Therapy Discharge Summary Dates: 05/07/2019 Dates of Service: 05/01/2019 through 05/05/2019 This is a clinical summary of care provided on the duration of dates listed above. No charge was made in the completion of this documentation. Referring Doctor: Rose Wagoner NP PT Orders: PT CONSULT: Generalized weakness following hospitalization for acute alcohol intoxication. Precautions: Fall. Standard. Suicide precautions Patient Profile/Admitting Diagnosis: Patient is discharged from acute care level and is re-evaluated under swing bed level as of today for continued skilled physical therapy services for mobility progression. Patient is a 73-year-old male with a past medical history significant for alcohol abuse and COPD who presented to the ED on 04/27/2019 with chief complaints of failure to thrive, generalized weakness, poor self home care and ongoing uncontrollable daily use of alcohol and cigarettes. Patient is diagnosed with alcohol withdrawal, COPD, renal insufficiency, anemia, metabolic acidosis, failure to thrive, and depression. PMHX: Medical History (Updated 04/27/19 @ 22:34 by Prashant Rosales) Alcohol use disorder (Acute) COPD (chronic obstructive pulmonary disease) (Chronic) Smoking hx (Acute) Social History/Home Situation: Patient lives alone in an aprtment with 15 steps to get in with a rail on the right going up. He was independent with all aspects of ADLs without the need for an assistive ambulatory device nor adaptive equipment although he stated that recently it has been very difficult to do so due to weakness and uncontrolled alcoholism. Current Functional Limitations: Need for assistance for all transfer front wheeled walker. Equipment Owned/DME: None but will need a FWW. Subjective: Patient needed considerable encouragement to participate in evaluation at the start but somehow began to get interested with walking towards the middle of the session. He denies dizziness, chest pain, palpitations, and shortness of breath after ambulation activity. He still complains of being weak and being tired from not being able to sleep well these past nights. Objective: General Observation: Patient seen resting in bed, sleepy. IV in L UE. In paper clothing. Mental Status: Alert and oriented x 4 Pain: 0/10 ROM: Right Upper Extremity: Shoulder Flexion WFL. Shoulder abduction WFL. Elbow flexion WFL. Wrist flexion WFL. Functional opening and closing of hand WFL. Left Upper Extremity: Shoulder Flexion WFL. Shoulder abduction WFL. Elbow flexion WFL. Wrist flexion WFL. Functional opening and closing of hand WFL. Right Lower Extremity: Hip flexion WFL. Hip abduction WFL. Knee flexion WFL. Ankle dorsiflexion WFL. Ankle plantarflexion WFL. Left Lower Extremity: Hip flexion WFL. Hip abduction WFL. Knee flexion WFL. Ankle dorsiflexion WFL. Ankle plantarflexion WFL. Strength: Right Upper Extremity: Shoulder flexors 5/5. Shoulder abductors 5/5. Elbow flexors 5/5. Elbow extensors 5/5. Cracking Still Operator strong. Left Upper Extremity: Shoulder flexors 5/5. Shoulder abductors 5/5. Elbow flexors 5/5. Elbow extensors 5/5. Cracking Still Operator strong. Right Lower Extremity: Hip flexors 5/5. Hip abductors 5/5. Knee flexors 5/5. Knee extensors 5/5. Ankle dorsiflexors 5/5. Ankle plantarflexors 5/5. Left Lower Extremity:Hip flexors 5/5. Hip abductors 5/5. Knee flexors 5/5. Knee extensors 5/5. Ankle dorsiflexors 5/5. Ankle plantarflexors 5/5. Sensation: Intact as to pain and pressure on bilateral lower extremities. Bed Mobility/Transfers: Rolling independent Supine to sit independent Sit to supine independent Sit to stand independent Stand to sit independent Bed to chair independent Chair to bed independent Gait: Patient was able to tolerate level surface ambulation with front SPC with FWB and SBA office PT of up to 250 feet with decreased step height and length observed as well as decreased gait velocity. Minimal verbal cueing needed during turning and for safe walker management. Balance: Static Sitting: Normal Dynamic Sitting: Normal Static Standing: Good Dynamic Standing: Fair Assessment: Patient continues to present with clinical signs and symptoms consistent with current/admitting diagnoses that have resulted to mobility limitations, gait instability, generalized weakness, and impairment of motor control as demonstrated by the following impairment level findings: 1. Decreased strength to B LE major muscle groups 2. Impaired sitting/standing balance 3. Impaired activity tolerance Impairments are contributing to the following functional limitations: 1. Dependent bed mobility skills 2. Increased dependence with transfers 3. Inability to safely ambulate without assistive device and physical assistance 4. Increase completion time for mobility ADL performance 5. Increased fall risk 6. Inability to negotiate steps alone safely Goals: Goals X1 week 1. Supine-Sit independent MET 2. Sit-Supine independent MET 3. Sit-Stand independent MET 4. Stand-Sit independent MET 5. Bed-Chair independent MET 6. Chair-Bed independent v 7. Independent gait on level surface with use of least restrictive device for at least 300 feet without report of pain nor dyspnea NOT MET 8. Independent stair negotiation while holding onto bilateral rails for at least 15 steps without report of pain nor dyspnea NOT MET 9. Independent with home exercise program NOT MET 10. Good static and dynamic standing balance/tolerance NOT MET DISCHARGE RECOMMENDATIONS: Patient will need a front wheeled walker in order to maximize mobility level and reduce fall risk at discharge destination. Patient may benefit from long-term facility placement in order to progress mobility level, strength, and balance in preparation for a safe discharge to home. TREATMENT CODE/TIME: NC. Thank you very much for this referral. Franchesca Hawley PT, DPT, CLT [facility]
== END 2019-05-05 10:54 | disposition skilled nursing facility (03) | DRG 946 ==
PROVIDERS: Admitting Provider Internal Medicine; PCP Family Medicine; Visit Provider Internal Medicine
DX: R53.1 Weakness (principal); Z73.89 Other problems related to life management difficulty; F10.10 Alcohol abuse, uncomplicated; J44.9 Chronic obstructive pulmonary disease, unspecified; D50.0 Iron deficiency anemia secondary to blood loss (chronic); F32.9 Major depressive disorder, single episode, unspecified; Z87.19 Personal history of other diseases of the digestive system; F17.210 Nicotine dependence, cigarettes, uncomplicated
CPT/HCPCS: 94640; 97162; 97165; 97530; 97535; 99239; 99306; 99316; NC

== ENCOUNTER 2019-08-12 07:55 | Inpatient (IN) | payer MEDICARE, MEDICAID, SELFPAY ==
[2019-08-12] VITALS (10 sets, daily range): BP systolic 126–154; BP diastolic 64–80; PULSE 54–126; RESP 18–20; TEMP 36.4–36.7; O2SAT 95–100
--- NOTE | 2019-08-12 08:14 | DI.RAD_ITS ---
EXAM: XR CHEST 2V PA LATERAL INDICATION: weakness, alcoholism, HIP PAIN COMPARISON: XR CHEST 2V PA LATERAL from 04/27/2019 TECHNIQUE: 2D digital imaging was performed. FINDINGS: Heart size and pulmonary vasculature are within normal limits. The lungs are clear. The lungs are hyperinflated with flattened diaphragms consistent with COPD. No pleural effusion or pneumothorax is identified. The bones are within normal limits. IMPRESSION: No acute pulmonary process.
--- NOTE | 2019-08-12 08:15 | ED.GENADUL_ITS ---
Discharge Plan Discharge Details Chief Complaint: Orthopedic Primary Care Provider: Antonio Flood ED Provider: Khadar Richards Home Meds and New Rx's Prescriptions: No Action multivitamin [Multiple Vitamins] Tablet 1 tab PO DAILY Qty: 30 RF: 0 Nicotrol 10 mg Cartridge 30 cartridge inhalation DIRECTED PRNQty: 10 RF: 0 tamsulosin 0.4 mg Capsule 0.4 mg PO DAILY Qty: 30 RF: 0 alum-mag hydroxide-simeth [Mag-Al Plus] 200-200-20 mg/5 mL Suspension 30 ml PO Q2H PRN PRNQty: 120 RF: 0 Symbicort 160-4.5 mcg/actuation Hfa Aerosol Inhaler 2 puff inhalation BID Qty: 1 RF: 0 thiamine mononitrate (vit B1) [Vitamin B-1 (mononitrate)] 100 mg Tablet 100 mg PO DAILY Qty: 30 RF: 0 pantoprazole 40 mg Tablet,Delayed Release (Dr/Ec) 40 mg PO BID@0730,1999 Qty: 0 RF: 0 cyanocobalamin (vitamin B-12) [Vitamin B-12] 500 mcg Tablet 1,000 mcg PO DAILY Qty: 0 RF: 0 melatonin 3 mg Tablet Extended Release 3 mg PO HS PRN PRN (Reason: Insomnia) Qty: 0 RF: 0 magnesium chloride [Mag 64] 64 mg Tablet,Delayed Release (Dr/Ec) 128 mg PO BID Qty: 0 RF: 0 bisacodyl [Dulcolax (bisacodyl)] 10 mg Suppository 10 mg TX RF: 0 Medical Decision Making 74-year-old male with a history of COPD, tobacco abuse, alcohol use disorder, who was discharged from [facility] and rehab in May. He states he has had a round a month of progressive decline with poor self-care, progressive right hip pain that is worse with anterior flexion and standing. He says he has had loose watery stools for days. He questions incontinence. Is not had bloody or dark stools. States he has been unable to grocery shop and primarily has been eating delivery food, I am afraid to drink water. Denies fall or traumatic injury. States he did not fill recent prescriptions. He arrives with a temp 36.6, pulse 50-60, 137/80, 9% sat on room air, speaking in full sentences, requesting admission for inability to self-care. He does have right hip tenderness that does not seem to be an acute fracture. States he has had some mild shortness of breath at home. Continues to smoke. Denies recent alcohol use. Differential diagnosis is broad. IV placed, screening EKG, laboratories, chest x-ray obtained. Patient referred for lumbar and pelvis CT to rule out mass or fracture. Banana bag initiated. Labs reveal hypomagnesemia, elevated BUN and creatinine over baseline, normal troponin, alcohol and measured at 3.6. Images do not reveal acute fracture. Patient's case reviewed by care management, he will benefit from admission for ongoing hydration, correction of electrolyte abnormalities, likely placement to the community. Lab Data Lab results reviewed: Yes I reviewed the patient's lab results. Labs: Laboratory Results - last 24 hr 08/12/19 08:29 Sodium 138 Potassium 3.2 L Chloride 98 Carbon Dioxide 27.7 Anion Gap 12.3 H BUN 25 H Creatinine 1.64 H Estimated GFR/1.73 m2 41.39 Glucose 116 H Calcium 8.0 L Magnesium 0.7 L* Total Bilirubin 0.6 AST 19 ALT 15 L Alkaline Phosphatase 77 Troponin I < 0.05 Total Protein 7.2 Albumin 3.3 L Ethyl Alcohol 3.6 ECG Data Attestation: I personally reviewed and interpreted this ECG (s) as follows: Prior ECG tracings: available for review Interpretation: EKG dated August 12 at 8:46 AM: Normal sinus rhythm, rate is 85, the QRS is narrow, ectopic beats noted, no ST segment elevation HPI General Mode of arrival: EMS . Date/Time Provider Initiated Documentation: 08/12/19 07:56 . Information obtained by: patient and EMS . History of Present Illness 74 year old M presents to the emergency department with the chief complaint of 2 complaints: Unable to self-care at home, right hip pain, described as moderate, Quality is described as constant, and is localized to the right and lower extremity. Patient reports no radiation. Patient started experiencing this day(s) and it has been constant. Rest improves symptom(s), Movement worsens symptoms . Patient notes cough and other (Poor p.o. intake, frequent diarrhea, denies alcohol use, ongoing smoking, no hematemesis and no dark or bloody stool); denies chest pain. Patient did receive the following treatments prior to arrival, other (Did not fill recent inhaler prescription) Related Data Home Medications Medication Instructions Recorded Confirmed Nicotrol 30 cartridge INHALATION 05/01/19 05/01/19 DIRECTED PRN #10 ea Symbicort 2 puff INHALATION BID #1 g 05/01/19 08/12/19 alum-mag hydroxide-simeth [Mag-Al 30 ml PO Q2H PRN PRN #120 ml 05/01/19 08/12/19 Plus] multivitamin [Multiple Vitamins] 1 tab PO DAILY #30 tab 05/01/19 08/12/19 tamsulosin 0.4 mg PO DAILY #30 cap 05/01/19 08/12/19 thiamine mononitrate (vit B1) 100 mg PO DAILY #30 tab 05/01/19 08/12/19 [Vitamin B-1 (mononitrate)] cyanocobalamin (vitamin B-12) 1,000 mcg PO DAILY #0 tab 05/05/19 08/12/19 [Vitamin B-12] magnesium chloride [Mag 64] 128 mg PO BID #0 tab 05/05/19 08/12/19 melatonin 3 mg PO HS PRN PRN #0 tab 05/05/19 08/12/19 pantoprazole 40 mg PO BID@0730,2000 #0 tab 05/05/19 08/12/19 bisacodyl [Dulcolax (bisacodyl)] 10 mg [place] 08/12/19 Previous Rx's Medication Instructions Recorded Nicotrol 30 cartridge INHALATION 05/01/19 DIRECTED PRN #10 ea Symbicort 2 puff INHALATION BID #1 g 05/01/19 alum-mag hydroxide-simeth [Mag-Al 30 ml PO Q2H PRN PRN #120 ml 05/01/19 Plus] multivitamin [Multiple Vitamins] 1 tab PO DAILY #30 tab 05/01/19 tamsulosin 0.4 mg PO DAILY #30 cap 05/01/19 thiamine mononitrate (vit B1) 100 mg PO DAILY #30 tab 05/01/19 [Vitamin B-1 (mononitrate)] cyanocobalamin (vitamin B-12) 1,000 mcg PO DAILY #0 tab 05/05/19 [Vitamin B-12] magnesium chloride [Mag 64] 128 mg PO BID #0 tab 05/05/19 melatonin 3 mg PO HS PRN PRN #0 tab 05/05/19 pantoprazole 40 mg PO BID@0730,1999 #0 tab 05/05/19 Allergies Allergy/AdvReac Type Severity Reaction Status Date / Time bupropion AdvReac Severe seizures Verified 08/12/19 08:02 General Stated Complaint: Orthopedic JENNA: 4 Review of Systems Narrative: See HPI. Poor self-care at home, chronic diarrhea, poor p.o. intake. 8 systems reviewed and otherwise negative [facility] Medical History Alcohol use disorder (Acute) COPD (chronic obstructive pulmonary disease) (Chronic) Smoking hx (Acute) Social History Smoking/Tobacco Use Status: Current every day Tobacco Type: cigarettes Years smoked: 50 Alcohol Intake: current Alcohol Intake frequency: 3 or more drinks per day Drug use: Never Substance use type: does not use Do you feel safe at home: Yes Do you feel safe in your relationship?: Yes Additional Social history: Lives alone in apartment in [facility] for past ~6 years, closest family brother Owen in [place], [place] 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 Pleasant, poorly groomed with tobacco stained fingers, stool crusted on his legs and abdomen. HEAD: Normocephalic, atraumatic ENT: Mucous membranes moist, oropharynx unremarkable, External ear exam unremarkable EYES: PERRL, EOMI NECK: Full ROM, no DIANE, no menigismus CHEST/RESP: Nontender, diminished but clear bilaterally, did not appreciate wheeze or rhonchi CARDIOVASCULAR: RRR -borderline bradycardia, no murmur, rub hadley. 2+ Rad pulse bilateral ABDOMEN: Soft, nontender, no mass. +Bowel sounds EXT: Full ROM, no edema, no rash, stool crusting on posterior legs from ankle to buttock. He is able to flex at the right hip, extend the right leg at the knee and hold the leg off the bed. He has pain with the initiation of right hip flexion. No sniffing and pain with internal or external rotation. Neuro: Grossly normal neurologic exam, conversant, interactive. Psych: Speech fluent, thoughts congruent, affect normal Course Vital Signs Vital signs: Vital Signs Temperature 36.6 C 08/12/19 07:56 Pulse 54 L 08/12/19 07:56 Respiratory Rate 20 08/12/19 07:56 Pulse Oximetry 99 08/12/19 07:56 Temperature 36.6 C 08/12/19 07:56 Temperature Source Tympanic 08/12/19 07:56 Pulse 54 L 08/12/19 07:56 Respiratory Rate 20 08/12/19 07:56 Respiratory Effort 08/12/19 08:06 Blood Pressure Position Supine 08/12/19 07:56 Pulse Oximetry 99 08/12/19 07:56 Oxygen Delivery Method Room Air 08/12/19 07:56 Oxygen Flow Rate 0 08/12/19 07:56 Pain Level 8 08/12/19 08:06
--- NOTE | 2019-08-12 08:26 | NUR.NOTE ---
Nursing Note:Patient allowed this entry writer to help wash himself, brush teeth. 1 assist.
--- NOTE | 2019-08-12 08:32 | DI.RAD_ITS ---
EXAM: XR HIP RT COMPLETE AP PELVIS INDICATION: hip pain, acute on chronic. COMPARISON: XR LUMBAR SPINE COMPLETE from 08/12/2019 TECHNIQUE: 2D digital imaging was performed. FINDINGS: No acute fracture or dislocation is present. Sacroiliac joints and symphysis pubis appear intact. V ascular calcifications are present. The soft tissues are unremarkable. Mild degenerative changes ar e seen in the hips bilaterally. IMPRESSION: No acute abnormality.
--- NOTE | 2019-08-12 08:32 | DI.RAD_ITS ---
EXAM: XR LUMBAR SPINE COMPLETE INDICATION: R hip pain, frequent stools. COMPARISON: No exams were available for comparison TECHNIQUE: 2D digital imaging was performed. FINDINGS: There are 5 lumbar type vertebral bodies. No spondylolysis or spondylolisthesis is present. There i s a right convex scoliotic curvature of the thoracolumbar spine. No acute fracture or subluxation is present. There is disc space narrowing at L3-4, L4-5 and L5-S1. There are osteophytes at the endplates throughout the lumbar spine. There is a vacuum disc at L5-S1. There is atherosclerosis present. IMPRESSION: No acute fracture or subluxation. Moderate degenerative changes in the lumbar spine.
[2019-08-12 08:49] LABS: Abs Immature Grans 0.05 k/cumm (0.0-0.09); Absolute Basophil Count 0.03 k/cumm (0.0-0.2); Absolute Eosinophil Count 0.09 k/cumm (0.0-0.7); Absolute Lymphocyte Count 1.43 k/cumm (1.2-3.4); Absolute Monocyte Count 0.66 k/cumm (0.11-0.7); Absolute Neutrophil Count 4.23 k/cumm (1.2-6.7); Basophils % 0.5; Eosinophils % 1.4; HCT 33.4 % (40.0-50.0); HGB 9.7 g/dL (13.5-17.5); Immature Grans % 0.8; Mean Corpuscular Hemoglobin 20.1 pg (27.0-33.0); Mean Corpuscular Volume 69.2 fL (80-95); Mean Platelet Volume 9.1 fL (8.0-11.0); Monocytes % 10.2; Neutrophils % 65.1; Platelet Count 328 x1000/uL (130-400); RBC 4.83 m/cumm (4.50-6.00); RBC Distribution Width 18.4 % (11.8-14.1); White Blood Cell Count 6.49 k/cumm (4.4-10.8)
[2019-08-12 09:02] LABS: ALT 15 U/L (16-63); AST 19 U/L (15-37); Albumin 3.3 g/dL (3.4-5.0); Alkaline Phosphatase 77 U/L (46-116); Anion Gap 12.3 mmol/L (3-11); BUN 25 mg/dL (7-18); Bilirubin, Total 0.6 mg/dL (0.2-1.0); CO2 27.7 mmol/L (21.0-32.0); CREATININE 1.64 mg/dL (0.70-1.30); Chloride 98 mmol/L (98-107); ETHANOL BLOOD 3.6 mg/dL (<3); Estimated GFR 41.39 (mL/min/1.73m2); Glucose 116 mg/dL (70-100); Potassium 3.2 mmol/L (3.5-5.1); Sodium 138 mmol/L (136-145); Total Protein 7.2 g/dL (6.4-8.2)
[2019-08-12 09:04] LABS: Magnesium 0.7 mg/dL (1.8-2.4); Troponin I < 0.05 ng/mL (0.00-0.06)
[2019-08-12 09:08] LABS: Diff Comment RBC Morph Reviewed
[2019-08-12 09:11] LABS: Anisocytosis 2+; Hypochromasia 1+; Ovalocytes 2+; Polychromasia Present
[2019-08-12] MEDS: MAGNESIUM SULFATE 8.12 MEQ, MULTIVITAMIN 10 ML, THIAMINE 100 MG, FOLIC ACID 1 MG in Nor... 168.867 MG IV (09:52)
[2019-08-12 11:47] LABS: Bilirubin Small (Negative); Blood Small (Negative); Clarity Clear (Clear); Glucose Negative (Negative); Ketones Negative (Negative); Leukocyte Esterase Large (Negative); Nitrite Negative (Negative); Specific Gravity 1.015 (1.005-1.025)
[2019-08-12 11:57] LABS: C & S Indicated? Yes; WBC >50 HPF (0-5)
[2019-08-12 12:54] LABS: Bilirubin Negative (Negative); Blood Trace-intact (Negative); Clarity Sl Cloudy (Clear); Glucose Negative (Negative); Ketones Negative (Negative); Leukocyte Esterase Moderate (Negative); Nitrite Negative (Negative); Specific Gravity 1.015 (1.005-1.025)
[2019-08-12 13:12] LABS: WBC 20-50 HPF (0-5)
[2019-08-12 13:13] LABS: Bacteria Few HPF (Negative); C & S Indicated? Yes; Casts Negative LPF (Negative); Crystals Negative HPF (Negative); Epithelial Cells Few HPF (Negative); Mucus Negative (Negative)
[2019-08-12 13:14] LABS: *AMPHETAMINES SCREEN URINE Negative (Negative); *BARBITURATES SCREEN URINE Negative (Negative); *BENZODIAZEPINES SCREEN URINE Negative (Negative); Cannabinoids THC Negative (Negative); Cocaine Screen,Urine Negative (Negative); METHADONE URINE SCREEN Negative (Negative); OPIATES URINE SCREEN Negative (Negative)
[2019-08-12 13:16] LABS: Tricyclic Antidepressants Negative (Negative)
[2019-08-12] MEDS: MAGNESIUM SULFATE 4 GM/100 ML BAG IVPB (14:24)
[2019-08-12] MEDS: Heparin 5,000 UNITS/ML VIAL 5000 UNITS SC (14:27)
[2019-08-12] MEDS: Potassium Chloride 20 MEQ TABCR 40 MEQ PO (14:27)
[2019-08-12 15:43] LABS: Troponin I < 0.05 ng/mL (0.00-0.06)
[2019-08-12] MEDS: levoFLOXacin 750 MG/150 ML BAG 100 MG IVPB (15:51)
--- NOTE | 2019-08-12 15:55 | HPE_ITS ---
Date of service: 08/12/19 Time of Service: 15:55 Assessment and Plan Assessment and plan (1) UTI (urinary tract infection): Status: Acute Assessment and plan: Urine culture pending. Continue IV levaquin and IV fluids. Monitor urine culture. Repeat labs tomorrow morning. (2) SAUL (acute kidney injury): Status: Acute Assessment and plan: Continue IV fluids. Repeat BMP tomorrow. (3) Hypomagnesemia: Status: Resolved Assessment and plan: Critically low magnesium. Replete and monitor. (4) Hypokalemia: Status: Resolved Assessment and plan: Replete and monitor. (5) Atrial fibrillation: Status: Chronic Assessment and plan: New atrial fibrillation noted on telemetry and confirmed with EKG with rates into the 150s with activity. Trend troponins. In for echocardiogram tomorrow. Low dose Cardizem initiated with hold parameters. Consider anticoagulation. Has chronic anemia with recent history of duodenitis with hematemesis and required blood transfusion. Continue to monitor on telemetry. (6) Failure to thrive: Status: Acute Assessment and plan: Recently discharged from [facility] and rehab. Appears to be declining in the setting of UTI. Treat UTI with Levaquin, monitor culture. Consult PT. May need to return to rehab. (7) Alcohol use disorder: Status: Acute Assessment and plan: Reports last alcoholic beverage was 25 days ago. Monitor on CIWA protocol with PRN ativan. (8) COPD (chronic obstructive pulmonary disease): Status: Chronic Assessment and plan: Does not appear to be in acute exacerbation. Continues to smoke. Offer nicotine replacement. Encourage smoking cessation. (9) DVT prophylaxis: Status: Acute Assessment and plan: Subcutaneous heparin. (10) Discharge planning issues: Status: Acute Assessment and plan: He is a FULL code. PT consulted, may need to return to rehab. This case was discussed with Dr. Leggett who is in agreement. History of Present Illness History of Present Illness Chief Complaint: RLE pain, Failure to thrive. Narrative: Khoi Calero is a 74 year old man with a past medical history significant for alcohol abuse, COPD, current smoker, and depression who was recently discharged from [facility] and rehab who presented to the ED today with reports of about a one month history of progressive decline, poor self-care, RLE pain and diarrhea. He reports having difficulty getting groceries and meals at home, he has not been taking medications since he was discharged from the rehab. He had a right hip x-ray that was negative for fracture. He also had a lumbar spine x-ray which was negative for an acute process. His labs revealed severe hypomagnesemia as low as 0.7, hypokalemia of 3.2, acute kidney injury with creatinine of 1.64 and stable chronic anemia. His urinalysis was suspicious for infection and he was started on IV levaquin. He was admitted to the med/surg floor for further observation and evaluation. Due to his electrolyte abnormalities, he was placed on telemetry. He was noted to have rates in the 150s while out of bed and appeared to be in atrial fibrillation. An EKG confirmed a-fib. He denies any history of atrial fibrillation. He denies chest pain/pressure or palpitations. He has intermittent shortness of breath, denies coughing or wheezing. His appetite has been poor and he has been nauseated, he relates this to his RLE pain. He describes pain that starts in his foot and goes up his leg and into his right hip. He denies vomiting, but has had occasional loose stools. He reports that his last alcoholic drink was 25 days ago. He is a current smoker, he smokes 15 cigarettes per day. He endorses frequent urination and incontinence, denies dysuria or hematuria. Review of Systems All systems reviewed & are unremarkable except as noted in HPI and below PFSH Medical History Alcohol use disorder (Acute) COPD (chronic obstructive pulmonary disease) (Chronic) Smoking hx (Acute) Social History Smoking/Tobacco Use Status: Current every day Tobacco Type: cigarettes Years smoked: 50 Alcohol Intake: current Alcohol Intake frequency: 3 or more drinks per day Drug use: Never Substance use type: does not use Do you feel safe at home: Yes Do you feel safe in your relationship?: Yes Additional Social history: Lives alone in apartment in [facility] for past ~6 years, closest family brother Owen in [place], [place] 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[employer], 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 Home Medications Medication Instructions Recorded Confirmed Type Nicotrol 30 cartridge INHALATION 08/02/19 08/02/19 Rx DIRECTED PRN #10 ea Symbicort 2 puff INHALATION BID #1 g 05/01/19 08/12/19 Rx alum-mag hydroxide-simeth [Mag-Al 30 ml PO Q2H PRN PRN #120 ml 05/01/19 08/12/19 Rx Plus] multivitamin [Multiple Vitamins] 1 tab PO DAILY #30 tab 05/01/19 08/12/19 Rx tamsulosin 0.4 mg PO DAILY #30 cap 05/01/19 08/12/19 Rx thiamine mononitrate (vit B1) 100 mg PO DAILY #30 tab 05/01/19 08/12/19 Rx [Vitamin B-1 (mononitrate)] cyanocobalamin (vitamin B-12) 1,000 mcg PO DAILY #0 tab 05/05/19 08/12/19 Rx [Vitamin B-12] magnesium chloride [Mag 64] 128 mg PO BID #0 tab 05/05/19 08/12/19 Rx melatonin 3 mg PO HS PRN PRN #0 tab 05/05/19 08/12/19 Rx pantoprazole 40 mg PO BID@0730,2000 #0 tab 05/05/19 08/12/19 Rx bisacodyl [Dulcolax (bisacodyl)] 10 mg ME 08/12/19 History Allergies Allergy/AdvReac Type Severity Reaction Status Date / Time bupropion AdvReac Severe seizures Verified 08/12/19 08:02 Exam Narrative Exam Narrative: General: 74 year old man, laying in bed, in NAD. Alert and oriented, pleasant and cooperative. Answers questions appropriately. HEENT: noromcephalic, atraumatic, pupils equal and round, EOMI, mucous membranes slightly dry. Neck: supple, no JVD. Cardiovascular: irregularly irregular, nontachycardic, no murmur appreciated. Respiratory: respirations even and unlabored, lung sounds clear to auscultation bilaterally. GI: normoactive bowel sounds, abdomen soft, nontender on palpation, nondistended . Extremities: no clubbing, cyanosis or edema. Results Labs Result diagrams: 08/13/19 06:25 08/13/19 06:25 Labs: Laboratory Results - last 24 hr 08/12/19 08/12/19 08/12/19 08:29 08:29 11:35 WBC 6.49 RBC 4.83 Hgb 9.7 L Hct 33.4 L MCV 69.2 L MCH 20.1 L MCHC 29.0 L RDW 18.4 H Plt Count 328 MPV 9.1 Immature Gran % 0.8 Neutrophils % 65.1 Lymphocytes % 22.0 Monocytes % 10.2 Eosinophils % 1.4 Basophils % 0.5 Absolute Neutrophils 4.23 Absolute Lymphocytes 1.43 Absolute Monocytes 0.66 Absolute Eosinophils 0.09 Absolute Basophils 0.03 Differential Comment Rbc morph reviewed RBC Morphology See below Polychromasia Present Hypochromasia 1+ Anisocytosis 2+ Ovalocytes 2+ Sodium 138 Potassium 3.2 L Chloride 98 Carbon Dioxide 27.7 Anion Gap 12.3 H BUN 25 H Creatinine 1.64 H Estimated GFR/1.73 m2 41.39 Glucose 116 H Calcium 8.0 L Magnesium 0.7 L* Total Bilirubin 0.6 AST 19 ALT 15 L Alkaline Phosphatase 77 Troponin I < 0.05 Total Protein 7.2 Albumin 3.3 L Urine Color Yellow Urine Clarity Clear Urine pH 7.0 Ur Specific [place] 1.015 Urine Protein Trace H Urine Ketones Negative Urine Blood Small H Urine Nitrite Negative Urine Bilirubin Small H Urine Urobilinogen 1.0 H Ur Leukocyte Esterase Large H Urine RBC Not Applicable Urine WBC >50 H Ur Epithelial Cells Not Applicable Urine Crystals Not Applicable Urine Bacteria Not Applicable Urine Casts Urine Mucus Not Applicable Ur Culture Indicated? Yes Urine Glucose Negative Urine Opiates Screen Urine Methadone Screen Ur Barbiturates Screen Ur Tricyclics Screen Ur Amphetamines Screen U Benzodiazepines Scrn Urine Cocaine Screen Ur THC Screen Ethyl Alcohol 3.6 08/12/19 08/12/19 08/12/19 12:45 12:45 15:15 WBC RBC Hgb Hct MCV MCH MCHC RDW Plt Count MPV Immature Gran % Neutrophils % Lymphocytes % Monocytes % Eosinophils % Basophils % Absolute Neutrophils Absolute Lymphocytes Absolute Monocytes Absolute Eosinophils Absolute Basophils Differential Comment RBC Morphology Polychromasia Hypochromasia Anisocytosis Ovalocytes Sodium Potassium Chloride Carbon Dioxide Anion Gap BUN Creatinine Estimated GFR/1.73 m2 Glucose Calcium Magnesium Total Bilirubin AST ALT Alkaline Phosphatase Troponin I < 0.05 Total Protein Albumin Urine Color Yellow Urine Clarity Sl cloudy Urine pH 7.0 Ur Specific [place] 1.015 Urine Protein Negative Urine Ketones Negative Urine Blood Trace-intact H Urine Nitrite Negative Urine Bilirubin Negative Urine Urobilinogen 1.0 H Ur Leukocyte Esterase Moderate H Urine RBC 5-10 H Urine WBC 20-50 H Ur Epithelial Cells Few Urine Crystals Negative Urine Bacteria Few Urine Casts Negative Urine Mucus Negative Ur Culture Indicated? Yes Urine Glucose Negative Urine Opiates Screen Negative Urine Methadone Screen Negative Ur Barbiturates Screen Negative Ur Tricyclics Screen Negative Ur Amphetamines Screen Negative U Benzodiazepines Scrn Negative Urine Cocaine Screen Negative Ur THC Screen Negative Ethyl Alcohol Last Vital Signs Temp 36.6 C 08/12/19 13:31 Pulse 126 H 08/12/19 14:44 Resp 20 08/12/19 13:31 BP 144/79 H 08/12/19 13:31 Pulse Ox 95 08/12/19 13:31
--- NOTE | 2019-08-12 16:03 | PT.INNT ---
Date of service: 08/12/19 Time of Service: 16:03 PT Notes Referral for skilled services was received today at 12:02 PM. Patient was seen and was informed about said referral, nurse Godfrey present in room. Patient adamantly refused evaluation stating that he has not had any rest since 7 am this morning and stated that he is in no condition to do anything saying that he is so beat. He further remarked that he will not be up to doing physcial therapy until three days from today at least. Patient did agree to being checked in on tomorrow morning to see how he feels about another PT evaluation attempt. Thank you very much for this referral. Franchesca Hawley PT, DPT, CLT [facility]
[2019-08-12] MEDS: SODIUM CHLORIDE 0.45% 1,000 ML 100 ML IV (17:40)
--- NOTE | 2019-08-12 18:25 | NUR.NOTE ---
Nursing Note: Patient ordered CIWA protocol lorazepam. Patient at time of assessment scored a 7. Order not acknowledged until 1510. Patient up to floor around 1330. CIWA done on patient around 1415. Lorazepam not given as ordered. Patient scored 2 upon reassessment.
[2019-08-12] MEDS: Budesonide/Formoterol 160/4.5 6 GM 60 PUFF INH IH (19:47)
[2019-08-12] MEDS: Magnesium Chloride 64 MG TABCR 128 MG PO (19:47)
[2019-08-12] MEDS: LORazepam 1 MG TAB PO/SL (19:47)
[2019-08-12] MEDS: Pantoprazole 40 MG TABCR PO (19:47)
[2019-08-12] MEDS: dilTIAZem 30 MG TAB PO (19:48)
[2019-08-12 20:21] LABS: Troponin I < 0.05 ng/mL (0.00-0.06)
[2019-08-13] VITALS (7 sets, daily range): BP systolic 116–142; BP diastolic 65–93; PULSE 57–108; RESP 18; TEMP 36.1–37.2; O2SAT 96–99
[2019-08-13] MEDS: SODIUM CHLORIDE 0.45% 1,000 ML 100 ML IV (02:45)
[2019-08-13] MEDS: Heparin 5,000 UNITS/ML VIAL 5000 UNITS SC ×3 (05:50→22:12)
[2019-08-13 06:55] LABS: Abs Immature Grans 0.04 k/cumm (0.0-0.09); Absolute Basophil Count 0.01 k/cumm (0.0-0.2); Absolute Eosinophil Count 0.15 k/cumm (0.0-0.7); Absolute Lymphocyte Count 0.94 k/cumm (1.2-3.4); Absolute Monocyte Count 0.46 k/cumm (0.11-0.7); Absolute Neutrophil Count 2.27 k/cumm (1.2-6.7); Basophils % 0.3; Eosinophils % 3.9; HCT 28.6 % (40.0-50.0); HGB 8.3 g/dL (13.5-17.5); Lymphocytes % 24.3; Mean Corpuscular Hemoglobin 20.1 pg (27.0-33.0); Mean Corpuscular Volume 69.2 fL (80-95); Mean Platelet Volume 9.5 fL (8.0-11.0); Monocytes % 11.9; Neutrophils % 58.6; Platelet Count 228 x1000/uL (130-400); RBC 4.13 m/cumm (4.50-6.00); White Blood Cell Count 3.87 k/cumm (4.4-10.8)
[2019-08-13 07:05] LABS: Anion Gap 10.7 mmol/L (3-11); BUN 18 mg/dL (7-18); CO2 24.3 mmol/L (21.0-32.0); CREATININE 1.35 mg/dL (0.70-1.30); Calcium 7.1 mg/dL (8.5-10.1); Chloride 104 mmol/L (98-107); Estimated GFR 51.81 (mL/min/1.73m2); Glucose 88 mg/dL (70-100); Magnesium 1.8 mg/dL (1.8-2.4); Potassium 3.7 mmol/L (3.5-5.1); Sodium 139 mmol/L (136-145)
[2019-08-13 07:33] LABS: Anisocytosis 2+; Diff Comment RBC Morph Reviewed; Hypochromasia 3+; Microcytosis 3+
[2019-08-13 07:34] LABS: Polychromasia Present
--- NOTE | 2019-08-13 07:57 | PHARADMIT ---
Addendum entered by Dulce Roger 08/18/19 16:22: Pharmacy Note Subjective per MD, Afib is rate controlled with Diltiazem Objective CIWA zero, Pain 3/10, VS ok, lytes ok, SCR 1.35 (improved) Assessment Gabapentin increased for leg/hip pain Plan Placement issue, not compliant at last facility, Hx of being a [facility] patient, but not currently connected Addendum entered by Vidal Diaz III 08/17/19 14:46: Pharmacy Note Subjective Patient has been complaining of right hip pain, Has experienced urinary retention and Flomax was started. CIWA-2 required some Lorazepam. MD thinks he may go off CIWA tomorrow. Objective BP-155/89 Pain:1010 SCr-1.56 Lytes,H&H-Plts-OK, BM-today Heme negative Assessment Levaquin dc'd, Renal function has demisnished, avaoid nephrotoxic drugs. Plan Can not return to [facility] due to his demeanor has and non-cooperative nature. Placement may be an issue. Original Note: Admission Pharmacy Clinical Review FAILURE to THRIVE, POOR SELF CARE, SAUL, UTI Code Status Full Code Current Weight Wgt-70.3 kg Renally Cleared and Narrow Therapeutic Index Meds CrCl~42 mL/min Meds-OK QTc Value / Action Taken QTc-473 (Protonix, Levaquin) BP Control, Fever BP- 144/80 Tmax- 36.6 Electrolytes reviewed Na- 139 K+3.7 Mag-1.8 DVT Prophylaxis Heparin-SC Opiate Usage / Scheduled Bowel Regimen Ordered No Yes Plt/SCr for Heparin / Enoxaparin Plts-228 SCr-1.35 INR for Warfarin NA H/H stable, WBC/Bands H&H-8.38/28.6 WBC- 3.87 Antibiotic appropriateness Levaquin 750mg IV q$*H Cultures and Sensitivities Urine-Pending Surgical ABX d/c within 24 hr NA DM control / Insulin Dosing BG- 88 Heart Failure (Check EF%) (SONIYA's, B-Block, Diuretics) Diltiazem, IV to PO Switch No Home Meds Reviewed Yes Home Meds Not Ordered ,Dulcolax Comments
[2019-08-13] MEDS: Pantoprazole 40 MG TABCR PO ×2 (07:58→19:49)
[2019-08-13] MEDS: Multivitamin TAB 1 TAB PO (07:58)
[2019-08-13] MEDS: Magnesium Chloride 64 MG TABCR 128 MG PO ×2 (07:58→19:48)
[2019-08-13] MEDS: Tamsulosin 0.4 MG CAPCR PO (07:58)
[2019-08-13] MEDS: Thiamine 100 MG TAB PO (07:58)
[2019-08-13] MEDS: Cyanocobalamin 500 MCG TAB 1000 MCG PO (07:58)
[2019-08-13] MEDS: dilTIAZem 30 MG TAB PO ×3 (07:59→19:48)
[2019-08-13] MEDS: Folic Acid 1 MG TAB PO (07:59)
[2019-08-13] MEDS: LORazepam 1 MG TAB PO/SL ×2 (08:05→12:25)
[2019-08-13] MEDS: Budesonide/Formoterol 160/4.5 6 GM 60 PUFF INH IH ×2 (08:21→19:49)
--- NOTE | 2019-08-13 09:46 | DI.US_ITS ---
APPROVED REPORT EXAM: Comprehensive 2D, Doppler, and color-flow Echocardiogram Patient Location: In-Patient Skip Hoist Operator: Rebeka Alonzo [facility] ([place]) Rhythm: Atrial Fibrillation Tachycardia Indications: new a-fib Conclusion Left Ventricle : There is normal left ventricular wall thickness. Left ventricular systolic function is globally mildly reduced. Atrial fibrillation can interfere with regional and segmental wall motion analysis but there do not appear to be any significant abnormalities. LVEF is estimated to be 50%. L V diastolic function is indeterminate. Right Ventricle : The right ventricle is normal size. The right ventricular systolic function appears normal. Atria : The left atrium size is normal. The right atrium size is normal. Aortic Valve : Aortic valve is probably trileaflet. Aortic valve is mildly thickened but appears to h ave adequate excusion. There is no aortic valvular stenosis. No aortic regurgitation is present. Mitral Valve : Mitral valve leaflets are mildly thickened. No evidence of mitral valve stenosis. Triv ial mitral regurgitation. Tricuspid Valve : The tricuspid valve appears normal in structure. Trace tricuspid regurgitation. IVC is normal in size and collapses >50% with inspiration. Estimated RVSP is 16-20 mmHg. Patient was in atrial fibrillation for the entirety of the procedure. There is no prior echocardiogram available for comparison. Wall motion Left Ventricle The left ventricle is top normal size. Left ventricular systolic function is globally mildly reduced. There is normal left ventricular wall thickness. atrial fibrillation can interfere with regional and segmental wall motion analysis but there do not appear to be any significant abnormalities. LV diast olic function is indeterminate. LVEF is estimated to be 50%. Right Ventricle The right ventricle is normal size. The right ventricular systolic function appears normal. Atria The left atrium size is normal. The right atrium size is normal. Aortic Valve Aortic valve is probably trileaflet. Aortic valve is mildly thickened but appears to have adequate ex cusion. There is no aortic valvular stenosis. No aortic regurgitation is present. Mitral Valve Mitral valve leaflets are mildly thickened. No evidence of mitral valve stenosis. Trivial mitral regu rgitation. Tricuspid Valve The tricuspid valve appears normal in structure. Trace tricuspid regurgitation. Pulmonic Valve Pulmonic valve is not well visualized. Great Vessels The aortic root is normal in size. IVC is normal in size and collapses >50% with inspiration. Estimat ed RVSP is 16-20 mmHg. Pericardium Prominent anterior epicardial fat pad is present. 2D Dimensions IVSd 0.75 cm M: 0.6-1.2 LV EDV A4C 63.10 mL PWd 0.80 cm M: 0.6 - 1.2 LA Volume Index A4C 27.22 mL/m2 LVDd 5.15 cm M: 4.2 - 5.8 LA Area A4C 15.30 cm2 LVDs 3.85 cm M: 2.5 - 4.0 EF AP4 49.92 % Aortic Root 2.65 cm M: 3.1 - 3.7 RA Area A4C 11.26 cm2 LVOT 2.05 cm (M/F) 1.5-2.5 LVEF (Teich) 49.08 % LV Volume Index 35.55 mL/m2 M: 34 - 74 FS 24.95 % LV Diastology E/A Ratio 1.0 Aortic Valve LVOT Area 3.30 cm2 Mitral Valve MV E Max Nils. 0.53 (0.4-1.3 m/s) MV A Velocity 0.55 (0.4-1.3 m/s) E/A Ratio 0.96 MV Decel. Time 220.95 (160-240 msec) MV PHT 64.09 msec MVA PHT 3.40 cm2 Tricuspid Valve TR P. Velocity 2.01 m/s TV Regurg Vmax 2.01 m/s RAP Estimate 3.00 mmHg RVSP 19.15 mmHg TR P. Gradient 16.15 mmHg
[2019-08-13] MEDS: Magnesium Oxide 400 MG TAB PO (10:31)
[2019-08-13] MEDS: POTASSIUM CHLORIDE 20 MEQ, POTASSIUM CHLORIDE 10 MEQ 30 MEQ PO (10:31)
--- NOTE | 2019-08-13 11:14 | PDOC.ERCMPRO ---
- If Service Date Differs Date of service: 08/12/19 Time of Service: 02:00 Care Management Progress Note CM consulted due to Khoi reporting he is currently struggling with his care needs at home. Khoi discharged from [facility] on 06/01/19. He resides in an apartment in [facility]. He is followed by Palliative Care and has supportive family and friends, but no one who is consistently available locally. CM faxed referral to [facility], anticipate he will be admitted to M/S due to medical status, CM will continue to coordinate increased services as needed.
--- NOTE | 2019-08-13 11:22 | PDOC.CMIN ---
Care Management Initial Assess REASON FOR HOSPITALIZATION:: Failure to Thrive, Poor Self Care, SAUL, UTI PAST MEDICAL HISTORY/PAST SURGICAL HISTORY:: Alcohol use disorder, COPD, smoking hx PREVIOUS FUNCTIONAL STATUS/SOCIAL/FAMILY SUPPORTS:: Khoi resides alone in his apartment in [facility]. He was in both the [employer] and the [employer]. He has a brother that is supportive and lives in [place], as well as two sons who live in [place] (he does not want this parts data writer to reach out to them at this time). Khoi is previously independent with ADL's and meals though has been struggling since this summer with increased weakness and failure to thrive. CURRENT FUNCTIONAL STATUS:: Khoi reviewed his discharge plan home from rehab on 06/01/19. He reports a lack of community based service coordination-undetermined if this was due to patient choice, and reports he would like to attach to supports with the [facility] through [facility] and discharge to SNF when ready. He was not feeling well and required encouragement and education around the need to fully engage with physical therapy for evaluation for SNF. ADVANCE DIRECTIVES:: COLST on file Has patient been provided with information about the portal?: No Did the patient sign up for the portal?: No CODE STATUS:: Full Code INSURANCE COVERAGE / FINANCIAL ISSUES:: Medicare. Medicaid CURRENT HOME/COMMUNITY SERVICES/EQUIPMENT:: Palliative Care. PRIMARY CARE PHYSICIAN:: Antonio Flood POTENTIAL DISCHARGE NEEDS:: Increased services at home-vs-SNF PATIENT/FAMILY EDUCATION NEEDS:: Review discharge instructions, discuss Ask Me Three. ANTICIPATED BARRIERS TO DISCHARGE:: None identified at this time. TRANSPORTATION:: TBD by disposition and mobility. PLAN:: Khoi will continue to be closely monitored at this time. CM faxed referrals [facility], [facility], [facility], [facility], [facility] (decl[facility]) and is awaiting notification from admissions of facilities. Per provider, Khoi may be ready as soon as 08/17/19 CM continues to follow.
[2019-08-13] MEDS: Acetaminophen 325 MG TAB PO (12:26)
--- NOTE | 2019-08-13 13:11 | W.PM.PROGNOT ---
Date of Service Date of service: 08/13/19 Time of Service: 13:11 Assessment and Plan Assessment and plan (1) UTI (urinary tract infection): Status: Acute Assessment and plan: Urine culture pending. Continue IV levaquin. Monitor urine culture. Repeat labs tomorrow morning. (2) SAUL (acute kidney injury): Status: Acute Assessment and plan: Renal function improving, creatinine down to 1.35 from 1.64 on admission. Discontinue IV fluids. Repeat BMP tomorrow. (3) Hypomagnesemia: Status: Resolved Assessment and plan: Magnesium increased to 1.8 from 0.7 on admission with supplementation. Continue to monitor. (4) Hypokalemia: Status: Resolved Assessment and plan: Improved. Continue to monitor. (5) Atrial fibrillation: Status: Chronic Assessment and plan: New atrial fibrillation. Troponins negative x3. Echo today showed LVEF of 50%. Continue low dose Cardizem initiated with hold parameters. Consider anticoagulation. Has chronic anemia with recent history of duodenitis with hematemesis and required blood transfusion. Continue to monitor on telemetry. (6) Failure to thrive: Status: Acute Assessment and plan: Recently discharged from [facility]. Appears to be declining in the setting of UTI. Treat UTI with Levaquin, monitor culture. Consult PT. May need to return to rehab. (7) Alcohol use disorder: Status: Acute Assessment and plan: Reports last alcoholic beverage was 25 days ago. Monitor on CIWA protocol with PRN ativan. (8) COPD (chronic obstructive pulmonary disease): Status: Chronic Assessment and plan: Does not appear to be in acute exacerbation. Continues to smoke. Offer nicotine replacement. Encourage smoking cessation. (9) Right knee pain: Status: Acute Assessment and plan: Right knee pain with weightbearing, shoots up to right hip. Right hip and lumbar spine x-rays negative for acute process. Declines imaging at this time. Consider right knee imaging if pain persists. Acetaminophen for pain. (10) DVT prophylaxis: Status: Acute Assessment and plan: Subcutaneous heparin. (11) Discharge planning issues: Status: Acute Assessment and plan: He is a FULL code. PT consulted, may need to return to rehab. This case was discussed with Dr. Leggett who is in agreement. Subjective Subjective Interval history since last seen: Mr. Calero continues to have RLE pain with weight bearing. He states the pain starts next to his right knee cap and shoots up to his right hip. He had imaging of his right hip and lumbar spine in the emergency department which revealed no acute pathology. We discussed imaging his right knee, he declined at this time. He reports feeling shaky today, he was having difficulty with frequent urination and a Cornejo catheter was placed. He is relieved to have the Cornejo catheter in place. He denies shortness of breath, coughing or wheezing. He denies chest pain/pressure, palpitations. He occasionally has nausea due to pain when he stands on his right lower extremity. He does not want pain medication as he has no pain at rest. He reports that his last bowel movement was 3 days ago. He does not want any medications for his bowels today. He denies abdominal pain or vomiting. He reports generalized weakness. Exam Narrative Exam Narrative: General: 74 year old man, laying in bed, in NAD. Alert and oriented, pleasant and cooperative. Answers questions appropriately. HEENT: noromcephalic, atraumatic, pupils equal and round, EOMI, mucous membranes moist. Neck: supple, no JVD. Cardiovascular: irregularly irregular, nontachycardic, no murmur appreciated. Respiratory: respirations even and unlabored, lung sounds with fine rales left base. No wheezing. GI: normoactive bowel sounds, abdomen soft, nontender on palpation, nondistended. Extremities: no clubbing, cyanosis or edema. Objective Objective Clinical Data: Abnormal lab results 08/12/19 08/13/19 08/13/19 Range/Units 12:45 06:25 06:25 WBC 3.87 L D (4.4-10.8) k/cumm RBC 4.13 L (4.50-6.00) m/cumm Hgb 8.3 L (13.5-17.5) g/dL Hct 28.6 L (40.0-50.0) % MCV 69.2 L (80-95) fL MCH 20.1 L (27.0-33.0) pg MCHC 29.0 L (32.0-36.0) g/dL RDW 18.0 H (11.8-14.1) % Absolute Lymphocytes 0.94 L (1.2-3.4) k/cumm Creatinine 1.35 H (0.70-1.30) mg/dL Calcium 7.1 L (8.5-10.1) mg/dL Urine RBC 5-10 H (0-2) HPF Urine WBC 20-50 H (0-5) HPF Vital Signs Temperature 37.2 C 08/13/19 07:35 Temperature Source Tympanic 08/13/19 07:35 Pulse 57 L 08/13/19 07:35 Pulse Rhythm Irregular 08/13/19 08:15 Respiratory Rate 18 08/13/19 07:35 Respiratory Effort Non-Labored 08/13/19 08:15 Respiratory Depth Normal 08/13/19 08:15 Respiratory Pattern Normal 08/13/19 08:15 Blood Pressure 142/93 H 08/13/19 07:35 Blood Pressure Position Supine 08/12/19 07:56 Pulse Oximetry 99 08/13/19 07:35 Oxygen Delivery Method Room Air 08/13/19 07:35 Oxygen Flow Rate 0 08/13/19 07:35 Pain Level 6 08/13/19 12:26 Comment 08/13/19 07:35 Intake & Output 08/12/19 08/13/19 08/13/19 23:59 11:59 23:59 Intake Total 150 / 160 1148.333 / 1148.333 Output Total 770 / 770 900 / 900 Balance -620 / -610 248.333 / 248.333 Weight 70.307 kg Intake: IV 150 / 160 908.333 / 908.333 Oral 240 / 240 Output: Urine 770 / 770 900 / 900 Other: Urine Color Yellow Pale Yellow Urine Appearance Clear Clear Urine Odor None None Comment >500 Voiding Methods Urinal Laboratory Results WBC 3.87 k/cumm (4.4-10.8) L D 08/13/19 06:25 RBC 4.13 m/cumm (4.50-6.00) L 08/13/19 06:25 Hgb 8.3 g/dL (13.5-17.5) L 08/13/19 06:25 Hct 28.6 % (40.0-50.0) L 08/13/19 06:25 MCV 69.2 fL (80-95) L 08/13/19 06:25 MCH 20.1 pg (27.0-33.0) L 08/13/19 06:25 MCHC 29.0 g/dL (32.0-36.0) L 08/13/19 06:25 RDW 18.0 % (11.8-14.1) H 08/13/19 06:25 Plt Count 228 x1000/uL (130-400) D 08/13/19 06:25 MPV 9.5 fL (8.0-11.0) 08/13/19 06:25 Immature Gran % 1.0 08/13/19 06:25 Neutrophils % 58.6 08/13/19 06:25 Lymphocytes % 24.3 08/13/19 06:25 Monocytes % 11.9 08/13/19 06:25 Eosinophils % 3.9 08/13/19 06:25 Basophils % 0.3 08/13/19 06:25 Absolute Neutrophils 2.27 k/cumm (1.2-6.7) 08/13/19 06:25 Absolute Lymphocytes 0.94 k/cumm (1.2-3.4) L 08/13/19 06:25 Absolute Monocytes 0.46 k/cumm (0.11-0.7) 08/13/19 06:25 Absolute Eosinophils 0.15 k/cumm (0.0-0.7) 08/13/19 06:25 Absolute Basophils 0.01 k/cumm (0.0-0.2) 08/13/19 06:25 Differential Comment Rbc morph reviewed 08/13/19 06:25 RBC Morphology See below 08/13/19 06:25 Polychromasia Present 08/13/19 06:25 Hypochromasia 3+ 08/13/19 06:25 Anisocytosis 2+ 08/13/19 06:25 Microcytosis 3+ 08/13/19 06:25 Ovalocytes 2+ 08/12/19 08:29 Sodium 139 mmol/L (136-145) 08/13/19 06:25 Potassium 3.7 mmol/L (3.5-5.1) 08/13/19 06:25 Chloride 104 mmol/L (98-107) 08/13/19 06:25 Carbon Dioxide 24.3 mmol/L (21.0-32.0) 08/13/19 06:25 Anion Gap 10.7 mmol/L (3-11) 08/13/19 06:25 BUN 18 mg/dL (7-18) D 08/13/19 06:25 Creatinine 1.35 mg/dL (0.70-1.30) H 08/13/19 06:25 Estimated GFR/1.73 m2 51.81 (mL/min/1.73m2) 08/13/19 06:25 Glucose 88 mg/dL (70-100) 08/13/19 06:25 Calcium 7.1 mg/dL (8.5-10.1) L 08/13/19 06:25 Magnesium 1.8 mg/dL (1.8-2.4) 08/13/19 06:25 Total Bilirubin 0.6 mg/dL (0.2-1.0) 08/12/19 08:29 AST 19 U/L (15-37) 08/12/19 08:29 ALT 15 U/L (16-63) L 08/12/19 08:29 Alkaline Phosphatase 77 U/L (46-116) 08/12/19 08:29 Troponin I < 0.05 ng/mL (0.00-0.06) 08/12/19 19:25 Total Protein 7.2 g/dL (6.4-8.2) 08/12/19 08:29 Albumin 3.3 g/dL (3.4-5.0) L 08/12/19 08:29 Urine Color Yellow (Yellow) 08/12/19 12:45 Urine Clarity Sl cloudy (Clear) 08/12/19 12:45 Urine pH 7.0 (5-8) 08/12/19 12:45 Ur Specific [place] 1.015 (1.005-1.025) 08/12/19 12:45 Urine Protein Negative mg/dL (Negative) 08/12/19 12:45 Urine Ketones Negative mg/dL (Negative) 08/12/19 12:45 Urine Blood Trace-intact (Negative) H 08/12/19 12:45 Urine Nitrite Negative (Negative) 08/12/19 12:45 Urine Bilirubin Negative (Negative) 08/12/19 12:45 Urine Urobilinogen 1.0 EU/dL (Up TO 0.2) H 08/12/19 12:45 Ur Leukocyte Esterase Moderate (Negative) H 08/12/19 12:45 Urine RBC 5-10 HPF (0-2) H 08/12/19 12:45 Urine WBC 20-50 HPF (0-5) H 08/12/19 12:45 Ur Epithelial Cells Few HPF (Negative) 08/12/19 12:45 Urine Crystals Negative HPF (Negative) 08/12/19 12:45 Urine Bacteria Few HPF (Negative) 08/12/19 12:45 Urine Casts Negative LPF (Negative) 08/12/19 12:45 Urine Mucus Negative (Negative) 08/12/19 12:45 Ur Culture Indicated? Yes 08/12/19 12:45 Urine Glucose Negative mg/dL (Negative) 08/12/19 12:45 Urine Opiates Screen Negative (Negative) 08/12/19 12:45 Urine Methadone Screen Negative (Negative) 08/12/19 12:45 Ur Barbiturates Screen Negative (Negative) 08/12/19 12:45 Ur Tricyclics Screen Negative (Negative) 08/12/19 12:45 Ur Amphetamines Screen Negative (Negative) 08/12/19 12:45 U Benzodiazepines Scrn Negative (Negative) 08/12/19 12:45 Urine Cocaine Screen Negative (Negative) 08/12/19 12:45 Ur THC Screen Negative (Negative) 08/12/19 12:45 Ethyl Alcohol 3.6 mg/dL (<3) 08/12/19 08:29
--- NOTE | 2019-08-13 16:21 | NT_ITS ---
Date of service: 08/13/19 Time of Service: 15:52 PT Notes Patient was seen for a second attempt at initiating PT evaluation. He states that he feels worse today with his penile area hurting from the newly placed murry catheter. He also tried to roll onto his back and easily reported pain increase of 8/10 on the right hip. He continues to be determined about not initiating any PT until he is ready to do so. Nurse Vandana came in and heard about patient's refusal for doing any kind of movement and about the pain he is having from the catheter. center human resources manager Haydee was updated about patient's second refusal of PT services and kindly accompanied this PT to facilitate further discussion with patient about how patient's refusals can negatively impact insurance coverage and adversely affect the process of finding fdc facility placement for him down the road. Patient remained unrelenting and stated that he will be ready for a PT evaluation tomorrow morning. Will plan a third and last attempt at conducting PT evaluation as ordered. Thank you very much for this referral. Franchesca Hawley PT, DPT, CLT [facility]
[2019-08-13] MEDS: Normal Saline 1,000 ML 50 ML IV (18:58)
[2019-08-13] MEDS: Normal Saline Flush 10 ML SYR IVP (21:20)
[2019-08-13] MEDS: Acetaminophen 325 MG TAB 650 MG PO (22:16)
[2019-08-14] VITALS (10 sets, daily range): BP systolic 115–152; BP diastolic 72–91; PULSE 63–133; RESP 16–19; TEMP 36.7–37; O2SAT 96–100
[2019-08-14] MEDS: Heparin 5,000 UNITS/ML VIAL 5000 UNITS SC ×3 (06:04→22:14)
[2019-08-14 07:15] LABS: Abs Immature Grans 0.03 k/cumm (0.0-0.09); Absolute Basophil Count 0.02 k/cumm (0.0-0.2); Absolute Eosinophil Count 0.15 k/cumm (0.0-0.7); Absolute Lymphocyte Count 1.24 k/cumm (1.2-3.4); Absolute Monocyte Count 0.55 k/cumm (0.11-0.7); Absolute Neutrophil Count 2.64 k/cumm (1.2-6.7); Basophils % 0.4; Eosinophils % 3.2; HCT 28.1 % (40.0-50.0); HGB 7.9 g/dL (13.5-17.5); Immature Grans % 0.6; Lymphocytes % 26.8; Mean Corp. HGB Concentration 28.1 g/dL (32.0-36.0); Mean Corpuscular Hemoglobin 19.9 pg (27.0-33.0); Mean Corpuscular Volume 70.8 fL (80-95); Mean Platelet Volume 9.5 fL (8.0-11.0); Monocytes % 11.9; Neutrophils % 57.1; Platelet Count 260 x1000/uL (130-400); RBC 3.97 m/cumm (4.50-6.00); RBC Distribution Width 18.2 % (11.8-14.1); White Blood Cell Count 4.63 k/cumm (4.4-10.8)
[2019-08-14 07:35] LABS: Anion Gap 9.1 mmol/L (3-11); BUN 16 mg/dL (7-18); CO2 22.9 mmol/L (21.0-32.0); Calcium 7.8 mg/dL (8.5-10.1); Chloride 107 mmol/L (98-107); Estimated GFR 49.68 (mL/min/1.73m2); Glucose 106 mg/dL (70-100); Magnesium 1.8 mg/dL (1.8-2.4); Potassium 4.7 mmol/L (3.5-5.1); Sodium 139 mmol/L (136-145)
[2019-08-14 07:56] LABS: Anisocytosis 2+; Diff Comment Diff Reviewed; Hypochromasia 3+; Macrocytosis 1+
[2019-08-14 07:57] LABS: Schistocytes 1+; Tear Drop Cells 2+
[2019-08-14] MEDS: Budesonide/Formoterol 160/4.5 6 GM 60 PUFF INH IH ×2 (07:59→19:33)
[2019-08-14] MEDS: Pantoprazole 40 MG TABCR PO ×2 (09:12→19:34)
[2019-08-14] MEDS: Tamsulosin 0.4 MG CAPCR PO (09:12)
[2019-08-14] MEDS: Folic Acid 1 MG TAB PO (09:12)
[2019-08-14] MEDS: Magnesium Chloride 64 MG TABCR 128 MG PO ×2 (09:12→19:33)
[2019-08-14] MEDS: Cyanocobalamin 500 MCG TAB 1000 MCG PO (09:12)
[2019-08-14] MEDS: dilTIAZem 30 MG TAB PO ×3 (09:13→19:34)
[2019-08-14] MEDS: Thiamine 100 MG TAB PO (09:13)
[2019-08-14] MEDS: Multivitamin TAB 1 TAB PO (09:13)
[2019-08-14 09:36] LABS: Iron 11 ug/dL (50-175); Total Iron Binding Capacity 433 ug/dL (250-450); Transferrin Sat 3 % (20-55)
[2019-08-14 10:04] LABS: Ferritin 20 ng/mL (8-388); Folate 7.7 ng/mL (8.6-20.0); TSH 2.49 uIU/mL (0.36-3.74); Vitamin B12 291 pg/mL (193-986)
--- NOTE | 2019-08-14 12:33 | PT.INIE ---
Date of service: 08/14/19 Time of Service: 08:38 PT Notes Inpatient Physical Therapy Evaluation Date: 08/14/2019 Referring Doctor: Ham Leggett MD PT Orders: PT CONSULT: Limited ability Precautions: Fall. Standard. Activity as tolerated. Patient Profile/Admitting Diagnosis: Patient is a 73-year-old male with a past medical history significant for alcohol abuse and COPD who presented to the ED on 08/12/2019 with chief complaints of loose watery stools, incontinence, and able to perform self-care, right hip pain and tenderness, and mild SOB. and ongoing uncontrollable daily use of alcohol and cigarettes. Patient is diagnosed with failure to thrive, generalized weakness, poor self home care, acute kidney injury, and urinary tract infection. PMHX: Medical History Alcohol use disorder (Acute) COPD (chronic obstructive pulmonary disease) (Chronic) Smoking hx (Acute) Social History/Home Situation: Patient lives alone in an apartment with 15 steps to get in with a rail on the right going up. He was independent with all aspects of ADLs without the need for an assistive ambulatory device nor adaptive equipment although he stated that recently it has been very difficult to do so due to weakness and uncontrolled alcoholism. Current Functional Limitations: Need for assistance for all transfer front wheeled walker. Equipment Owned/DME: None but will need a FWW. Subjective: Patient needed considerable encouragement to participate in evaluation at the start but somehow began to get interested with walking towards the middle of the session. He denies dizziness, chest pain, palpitations, and shortness of breath after ambulation activity. He still complains of being weak and being tired from not being able to sleep well these past nights. Objective: General Observation: Patient seen resting in bed. IV in R UE. Mental Status: Alert and oriented x 4 Pain: 0/10 ROM: Right Upper Extremity: Shoulder Flexion WFL. Shoulder abduction WFL. Elbow flexion WFL. Wrist flexion WFL. Functional opening and closing of hand WFL. Left Upper Extremity: Shoulder Flexion WFL. Shoulder abduction WFL. Elbow flexion WFL. Wrist flexion WFL. Functional opening and closing of hand WFL. Right Lower Extremity: Hip flexion 0-5 degrees in supine due to pain. Hip abduction WFL. Knee flexion WFL. Ankle dorsiflexion WFL. Ankle plantarflexion WFL. Left Lower Extremity: Hip flexion WFL. Hip abduction WFL. Knee flexion WFL. Ankle dorsiflexion WFL. Ankle plantarflexion WFL. Strength: Right Upper Extremity: Shoulder flexors 4/5. Shoulder abductors 4/5. Elbow flexors 4/5. Elbow extensors 4/5. [employer] strong. Left Upper Extremity: Shoulder flexors 4/5. Shoulder abductors 4/5. Elbow flexors 4/5. Elbow extensors 4/5. [employer] strong. Right Lower Extremity: Hip flexors 3-/5. Hip abductors 4-/5. Knee flexors 4-/5. Knee extensors 4-/5. Ankle dorsiflexors 4-/5. Ankle plantarflexors 4-/5. Left Lower Extremity:Hip flexors 4/5. Hip abductors 4/5. Knee flexors 4/5. Knee extensors 4/5. Ankle dorsiflexors 4/5. Ankle plantarflexors 4/5. Sensation: Intact as to pain and pressure on bilateral lower extremities. Bed Mobility/Transfers: Rolling SBA Supine to sit SBA Sit to supine SBA Sit to stand CGA Stand to sit CGA Bed to chair CGA Chair to bed CGA Gait: Patient is able to tolerate in room ambulation of 20 feet x 2 using a front wheeled walker with weight bearing on bilateral lower extremities and upper extremities requiring only CGA with antalgic gait on right observed with decreased step length as well as step height. Gait speed significantly decreased as well due to pain level. Balance: Static Sitting: Normal Dynamic Sitting: Normal Static Standing: Fair Dynamic Standing: Fair Special Tests: Mobility Limitations Standardized Measure [facility]-P[facility] 6 clicks Basic Mobility Inpatient Short Form: Raw Score: 18 CMS Score: 47% deficit Informed Consent/Education: Patient instructed in purpose of PT consult and plan of care. Assessment: Patient is a 73-year-old male with a past medical history significant for alcohol abuse and COPD who presented to the ED on 08/12/2019 with chief complaints of loose watery stools, incontinence, and able to perform self-care, right hip pain and tenderness, and mild SOB. and ongoing uncontrollable daily use of alcohol and cigarettes. Patient is diagnosed with failure to thrive, generalized weakness, poor self home care, acute kidney injury, and urinary tract infection. He finally cooperated to having a physical therapy evaluation after 2 previous failed attempts and decided to work with physical therapy in order to work on increasing his level of mobility. He works well with planning his activity with physical therapy in advance as he states he needs to mentally prepare for what he is going to need to do. Patient presents with clinical signs and symptoms consistent with current/admitting diagnoses that have resulted to mobility limitations, gait instability, generalized weakness, and impairment of motor control as demonstrated by the following impairment level findings: 1. Decreased strength to B LE major muscle groups 2. Impaired sitting/standing balance 3. Impaired activity tolerance 4. Limitation of joint range of motion in right hip Impairments are contributing to the following functional limitations: 1. Dependent bed mobility skills 2. Increased dependence with transfers 3. Inability to safely ambulate without assistive device and physical assistance 4. Increase completion time for mobility ADL performance 5. Increased fall risk 6. Inability to negotiate steps alone safely Patient is assessed as a 20290 moderate complexity based on the following: History: Patient is a 73-year-old male with a past medical history significant for alcohol abuse and COPD who presented to the ED on 08/12/2019 with chief complaints of loose watery stools, incontinence, and able to perform self-care, right hip pain and tenderness, and mild SOB. and ongoing uncontrollable daily use of alcohol and cigarettes Examination: Demonstrable impairment in strength, balance, and range of motion with underlying impairments and functional limitations as documented above Presentation:Evolving Decision Makin moderate complexity Goals: Goals X1 week 1. Supine-Sit independent 2. Sit-Supine independent 3. Sit-Stand independent 4. Stand-Sit independent 5. Bed-Chair independent 6. Chair-Bed independent 7. Independent gait on level surface with use of least restrictive device for at least 150 feet without report of pain nor dyspnea 8. Independent stair negotiation while holding onto bilateral rails for at least 10 steps without report of pain nor dyspnea 9. Independent with home exercise program 10. Good static and dynamic standing balance/tolerance Plan of Care/Treatment Plan: 1-2x/day, 7 days/week x 1 week. Plan of care has been reviewed with the VEHICLE LEASING AND RENTAL MANAGER providing the service under Physical Therapy direction. Initiate Physical Therapy intervention for strengthening, bed mobility, transfers, gait, stairs, balance training, use of assistive device. DISCHARGE RECOMMENDATIONS: Patient will benefit from shelter facility placement in order to progress mobility level, strength, and balance in preparation for a safe discharge to home. TREATMENT CODE/TIME: 9716 2 x 25 minutes, 52988 x 13 minutes beginning at 8:38 AM. Thank you very much for this referral. Franchesca Hawley PT, DPT, CLT [facility]
--- NOTE | 2019-08-14 13:49 | W.PM.PROGNOT ---
Date of Service Date of service: 08/14/19 Time of Service: 13:50 Assessment and Plan Assessment and plan (1) UTI (urinary tract infection): Status: Acute Assessment and plan: UA with moderate leukocyte esterase and 20-50 WBC. Urine culture showing mixed gram positive erica and gram negative rods. Possible prostatitis in the setting of urinary retention, continue IV levaquin. Repeat labs tomorrow morning. Voiding trial after 3-5 days on flomax. (2) Anemia: Status: Chronic Assessment and plan: Hgb down to 7.9 today with heme-positive stools and history of mild duodenitis in the setting of alcohol use. Denies dizziness or lightheaded sensation. He reportedly has not been taking his usual medications since he was discharged from the rehab. He has been back on PPI therapy since admission to the hospital. Carafate added today. Continue to follow H&H. (3) SAUL (acute kidney injury): Status: Acute Assessment and plan: Renal function remains above baseline. Continue IV fluids. Repeat BMP tomorrow. (4) Hypomagnesemia: Status: Resolved Assessment and plan: Resolved. Continue to monitor. (5) Hypokalemia: Status: Resolved Assessment and plan: Resolved. Continue to monitor. (6) Atrial fibrillation: Status: Chronic Assessment and plan: New atrial fibrillation. Troponins negative x3. Echo showed LVEF of 50%. He has been monitored on telemetry, heart rates in the 80-90s, remains in a-fib. Continue low dose Cardizem with hold parameters. Hold off on anticoagulation in the setting dropping Hgb and heme-positive stools. Continue to monitor on telemetry. (7) Failure to thrive: Status: Acute Assessment and plan: Recently discharged from [facility] and rehab. Continue PT. May need to return to rehab. (8) Alcohol use disorder: Status: Acute Assessment and plan: Reports last alcoholic beverage was 25 days ago. Monitor on CIWA protocol with PRN ativan. (9) COPD (chronic obstructive pulmonary disease): Status: Chronic Assessment and plan: Does not appear to be in acute exacerbation. Continues to smoke. Declines nicotine replacement. Encourage smoking cessation. (10) DVT prophylaxis: Status: Acute Assessment and plan: Subcutaneous heparin. (11) Discharge planning issues: Status: Acute Assessment and plan: He is a FULL code. PT consulted, may need to return to rehab. This case was discussed with Dr. Leggett who is in agreement. Subjective Subjective Interval history since last seen: Mr. Calero continues to report right hip pain. He reports that the pain begins next to his right knee when he stands and puts weight on his right leg, the pain then goes up the anterior aspect of his right thigh and into his hip. He is working with PT. He declines imaging of his right knee. He denies shortness of breath, coughing or wheezing, no chest pain/pressure, palpitations. He is eating and drinking, no nausea, vomiting or diarrhea. He has a murry catheter in place, he is looking forward to a voiding trial. Exam Narrative Exam Narrative: General: 74 year old man, laying in bed, in NAD. Alert and oriented, pleasant and cooperative. Answers questions appropriately. HEENT: noromcephalic, atraumatic, pupils equal and round, EOMI, mucous membranes moist. Neck: supple, no JVD. Cardiovascular: irregularly irregular, nontachycardic, no murmur appreciated. Respiratory: respirations even and unlabored, lung sounds with fine rales left base. No wheezing. GI: normoactive bowel sounds, abdomen soft, nontender on palpation, nondistended. : murry draining clear yellow urine. Extremities: no clubbing, cyanosis or edema. Objective Objective Clinical Data: Abnormal lab results 08/14/19 08/14/19 08/14/19 Range/Units 06:40 06:40 06:40 RBC 3.97 L (4.50-6.00) m/cumm Hgb 7.9 L (13.5-17.5) g/dL Hct 28.1 L (40.0-50.0) % MCV 70.8 L (80-95) fL MCH 19.9 L (27.0-33.0) pg MCHC 28.1 L (32.0-36.0) g/dL RDW 18.2 H (11.8-14.1) % Creatinine 1.40 H (0.70-1.30) mg/dL Glucose 106 H (70-100) mg/dL Calcium 7.8 L (8.5-10.1) mg/dL Iron 11 L (50-175) ug/dL Transferrin % Sat 3 L (20-55) % Folate 7.7 L (8.6-20.0) ng/mL Vital Signs Temperature 36.7 C 08/14/19 09:13 Temperature Source Tympanic 08/14/19 09:13 Pulse 119 H 08/14/19 09:13 Pulse Rhythm Irregular 08/14/19 11:37 Respiratory Rate 19 08/14/19 09:13 Respiratory Effort Non-Labored 08/14/19 11:37 Respiratory Depth Normal 08/14/19 11:37 Respiratory Pattern Normal 08/14/19 11:37 Blood Pressure 129/87 08/14/19 09:13 Blood Pressure Position Supine 08/12/19 07:56 Pulse Oximetry 100 08/14/19 09:13 Oxygen Delivery Method Room Air 08/14/19 09:13 Oxygen Flow Rate 0 08/14/19 09:13 Pain Level 0 08/14/19 07:55 Comment 08/13/19 07:35 Intake & Output 08/13/19 08/14/19 08/14/19 23:59 11:59 23:59 Intake Total 720 / 1868.333 Output Total 675 / 1575 900 / 900 Balance 45 / 293.333 -900 / -900 Intake: Oral 720 / 960 Output: Urine 675 / 1575 900 / 900 Other: Urine Color Straw Yellow Urine Appearance Clear Clear Laboratory Results WBC 4.63 k/cumm (4.4-10.8) 08/14/19 06:40 RBC 3.97 m/cumm (4.50-6.00) L 08/14/19 06:40 Hgb 7.9 g/dL (13.5-17.5) L 08/14/19 06:40 Hct 28.1 % (40.0-50.0) L 08/14/19 06:40 MCV 70.8 fL (80-95) L 08/14/19 06:40 MCH 19.9 pg (27.0-33.0) L 08/14/19 06:40 MCHC 28.1 g/dL (32.0-36.0) L 08/14/19 06:40 RDW 18.2 % (11.8-14.1) H 08/14/19 06:40 Plt Count 260 x1000/uL (130-400) 08/14/19 06:40 MPV 9.5 fL (8.0-11.0) 08/14/19 06:40 Immature Gran % 0.6 08/14/19 06:40 Neutrophils % 57.1 08/14/19 06:40 Lymphocytes % 26.8 08/14/19 06:40 Monocytes % 11.9 08/14/19 06:40 Eosinophils % 3.2 08/14/19 06:40 Basophils % 0.4 08/14/19 06:40 Absolute Neutrophils 2.64 k/cumm (1.2-6.7) 08/14/19 06:40 Absolute Lymphocytes 1.24 k/cumm (1.2-3.4) 08/14/19 06:40 Absolute Monocytes 0.55 k/cumm (0.11-0.7) 08/14/19 06:40 Absolute Eosinophils 0.15 k/cumm (0.0-0.7) 08/14/19 06:40 Absolute Basophils 0.02 k/cumm (0.0-0.2) 08/14/19 06:40 Differential Comment Diff reviewed 08/14/19 06:40 RBC Morphology See below 08/14/19 06:40 Polychromasia Present 08/13/19 06:25 Hypochromasia 3+ 08/14/19 06:40 Anisocytosis 2+ 08/14/19 06:40 Microcytosis 3+ 08/13/19 06:25 Macrocytosis 1+ 08/14/19 06:40 Tear Drop Cells 2+ 08/14/19 06:40 Ovalocytes 2+ 08/12/19 08:29 Schistocytes 1+ 08/14/19 06:40 Sodium 139 mmol/L (136-145) 08/14/19 06:40 Potassium 4.7 mmol/L (3.5-5.1) D 08/14/19 06:40 Chloride 107 mmol/L (98-107) 08/14/19 06:40 Carbon Dioxide 22.9 mmol/L (21.0-32.0) 08/14/19 06:40 Anion Gap 9.1 mmol/L (3-11) 08/14/19 06:40 BUN 16 mg/dL (7-18) 08/14/19 06:40 Creatinine 1.40 mg/dL (0.70-1.30) H 08/14/19 06:40 Estimated GFR/1.73 m2 49.68 (mL/min/1.73m2) 08/14/19 06:40 Glucose 106 mg/dL (70-100) H 08/14/19 06:40 Calcium 7.8 mg/dL (8.5-10.1) L 08/14/19 06:40 Magnesium 1.8 mg/dL (1.8-2.4) 08/14/19 06:40 Iron 11 ug/dL (50-175) L 08/14/19 06:40 TIBC 433 ug/dL (250-450) 08/14/19 06:40 Transferrin % Sat 3 % (20-55) L 08/14/19 06:40 Ferritin 20 ng/mL (8-388) 08/14/19 06:40 Total Bilirubin 0.6 mg/dL (0.2-1.0) 08/12/19 08:29 AST 19 U/L (15-37) 08/12/19 08:29 ALT 15 U/L (16-63) L 08/12/19 08:29 Alkaline Phosphatase 77 U/L (46-116) 08/12/19 08:29 Troponin I < 0.05 ng/mL (0.00-0.06) 08/12/19 19:25 Total Protein 7.2 g/dL (6.4-8.2) 08/12/19 08:29 Albumin 3.3 g/dL (3.4-5.0) L 08/12/19 08:29 Vitamin B12 291 pg/mL (193-986) 08/14/19 06:40 Folate 7.7 ng/mL (8.6-20.0) L 08/14/19 06:40 TSH 2.49 uIU/mL (0.36-3.74) 08/14/19 06:40 Urine Color Yellow (Yellow) 08/12/19 12:45 Urine Clarity Sl cloudy (Clear) 08/12/19 12:45 Urine pH 7.0 (5-8) 08/12/19 12:45 Ur Specific [place] 1.015 (1.005-1.025) 08/12/19 12:45 Urine Protein Negative mg/dL (Negative) 08/12/19 12:45 Urine Ketones Negative mg/dL (Negative) 08/12/19 12:45 Urine Blood Trace-intact (Negative) H 08/12/19 12:45 Urine Nitrite Negative (Negative) 08/12/19 12:45 Urine Bilirubin Negative (Negative) 08/12/19 12:45 Urine Urobilinogen 1.0 EU/dL (Up TO 0.2) H 08/12/19 12:45 Ur Leukocyte Esterase Moderate (Negative) H 08/12/19 12:45 Urine RBC 5-10 HPF (0-2) H 08/12/19 12:45 Urine WBC 20-50 HPF (0-5) H 08/12/19 12:45 Ur Epithelial Cells Few HPF (Negative) 08/12/19 12:45 Urine Crystals Negative HPF (Negative) 08/12/19 12:45 Urine Bacteria Few HPF (Negative) 08/12/19 12:45 Urine Casts Negative LPF (Negative) 08/12/19 12:45 Urine Mucus Negative (Negative) 08/12/19 12:45 Ur Culture Indicated? Yes 08/12/19 12:45 Urine Glucose Negative mg/dL (Negative) 08/12/19 12:45 Urine Opiates Screen Negative (Negative) 08/12/19 12:45 Urine Methadone Screen Negative (Negative) 08/12/19 12:45 Ur Barbiturates Screen Negative (Negative) 08/12/19 12:45 Ur Tricyclics Screen Negative (Negative) 08/12/19 12:45 Ur Amphetamines Screen Negative (Negative) 08/12/19 12:45 U Benzodiazepines Scrn Negative (Negative) 08/12/19 12:45 Urine Cocaine Screen Negative (Negative) 08/12/19 12:45 Ur THC Screen Negative (Negative) 08/12/19 12:45 Ethyl Alcohol 3.6 mg/dL (<3) 08/12/19 08:29
--- NOTE | 2019-08-14 14:29 | PT.INTREAT ---
Date of service: 08/14/19 Time of Service: 14:29 PT Notes Inpatient Physical Therapy Treatment Note [facility] Date: 08/14/19 PRECAUTIONS: Fall SUBJECTIVE: Khoi reports that he does much better in the mornings versus in the afternoons, but is willing to participate. OBJECTIVE: PAIN: Patient c/o significant R LE pain with weight bearing in standing position BED MOBILITY/TRANSFERS Sit-supine: I Sit-stand: SBA Stand-sit: SBA GAIT Assistive Device: FWW Weight bearing: Full Assist: CGA x2 Distance: 2 steps forward + 2 steps backward Deviation: Increased pain on R LE THEREX: Patient completed a LE strengthening and stabilization program, in both seated and supine positions, as per flow sheet. Patient also performed bridging exercises. ASSESSMENT: Patient tolerated session with c/o increased R LE pain with weight bearing in standing. Patient would benefit from continued gait and transfer training as well as global strengthening for improved mobility and activity tolerance. PLAN: Continue with PT's POC TREATMENT CODE/TIME: 30 minutes; [id number], [id number]
[2019-08-14] MEDS: levoFLOXacin 750 MG/150 ML BAG 100 MG IVPB (14:41)
[2019-08-14] MEDS: Normal Saline 1,000 ML 50 ML IV (14:49)
--- NOTE | 2019-08-14 15:22 | CHAPLAIN ---
Khoi was resting in bed when I visited. He said he was just getting his first sleep in two days. I apologized for interfering. Khoi said he doesn't have anyone in the area who will in to visit him today. I let him know that supervisor patching support is available 22/04. (Urology Nurse notes indicated that Khoi has a brother in [place] and sons in [place] who are in touch with him.)
[2019-08-14] MEDS: Sucralfate 1 GM TAB PO ×2 (16:59→22:15)
[2019-08-14] MEDS: Acetaminophen 325 MG TAB 650 MG PO (17:06)
--- NOTE | 2019-08-14 18:15 | CMPROGNOTE_ITS ---
- If Service Date Differs Date of service: 08/14/19 Time of Service: 18:15 Care Management Progress Note S/O: Khoi was sitting up in bed when CM met with him. He shared that he has chronic pain in his hip which inhibits his ability to get around and fully care for himself. He feels that he would benefit from assistance at home with light housekeeping, shopping and personal care. He has also indicated that he feels he would benefit from rehab. Referrals were sent to several places yesterday. [facility] has indicated that they would not be able to accept him; other facilities have not responded as yet. A: Khoi is a 74 year old m,an admitted on 08/13/19 with failure to thrive. P: Khoi will continue to be closely monitored at this time. CM faxed referrals [facility] (declined), [facility], [facility], [facility] and [facility] (declined referral) and is awaiting notification from admissions of facilities. Per provider, Khoi may be ready as soon as 08/17/19 CM continues to fol low and support patient and discharge planning needs.
[2019-08-15] VITALS (14 sets, daily range): BP systolic 99–166; BP diastolic 58–91; PULSE 67–113; RESP 16–21; TEMP 36–36.7; O2SAT 95–98
[2019-08-15] MEDS: Acetaminophen 325 MG TAB 650 MG PO ×4 (00:55→21:35)
[2019-08-15] MEDS: Melatonin 3 MG TAB PO ×2 (01:02→21:30)
[2019-08-15] MEDS: LORazepam 1 MG TAB PO/SL (01:13)
[2019-08-15] MEDS: Heparin 5,000 UNITS/ML VIAL 5000 UNITS SC (06:37)
[2019-08-15] MEDS: Normal Saline 1,000 ML 50 ML IV (06:47)
[2019-08-15 06:50] LABS: Abs Immature Grans 0.03 k/cumm (0.0-0.09); Absolute Basophil Count 0.03 k/cumm (0.0-0.2); Absolute Eosinophil Count 0.19 k/cumm (0.0-0.7); Absolute Lymphocyte Count 1.05 k/cumm (1.2-3.4); Absolute Monocyte Count 0.52 k/cumm (0.11-0.7); Absolute Neutrophil Count 2.11 k/cumm (1.2-6.7); Basophils % 0.8; Eosinophils % 4.8; HCT 25.4 % (40.0-50.0); HGB 7.2 g/dL (13.5-17.5); Immature Grans % 0.8; Lymphocytes % 26.7; Mean Corp. HGB Concentration 28.3 g/dL (32.0-36.0); Mean Corpuscular Hemoglobin 19.9 pg (27.0-33.0); Mean Corpuscular Volume 70.4 fL (80-95); Mean Platelet Volume 9.3 fL (8.0-11.0); Monocytes % 13.2; Neutrophils % 53.7; Platelet Count 230 x1000/uL (130-400); RBC 3.61 m/cumm (4.50-6.00); White Blood Cell Count 3.93 k/cumm (4.4-10.8)
[2019-08-15 07:11] LABS: Anion Gap 8.7 mmol/L (3-11); BUN 15 mg/dL (7-18); CO2 22.3 mmol/L (21.0-32.0); CREATININE 1.39 mg/dL (0.70-1.30); Chloride 108 mmol/L (98-107); Estimated GFR 50.09 (mL/min/1.73m2); Glucose 102 mg/dL (70-100); Magnesium 1.6 mg/dL (1.8-2.4); Potassium 4.6 mmol/L (3.5-5.1); Sodium 139 mmol/L (136-145)
[2019-08-15] MEDS: Sucralfate 1 GM TAB PO ×4 (07:51→21:30)
[2019-08-15] MEDS: Pantoprazole 40 MG TABCR PO ×2 (07:51→20:15)
[2019-08-15] MEDS: Budesonide/Formoterol 160/4.5 6 GM 60 PUFF INH IH ×2 (07:56→20:15)
[2019-08-15] MEDS: Magnesium Chloride 64 MG TABCR 128 MG PO ×2 (08:42→20:15)
[2019-08-15] MEDS: Folic Acid 1 MG TAB PO (08:43)
[2019-08-15] MEDS: Tamsulosin 0.4 MG CAPCR PO (08:43)
[2019-08-15] MEDS: Cyanocobalamin 500 MCG TAB 1000 MCG PO (08:43)
[2019-08-15] MEDS: Multivitamin TAB 1 TAB PO (08:43)
[2019-08-15] MEDS: Thiamine 100 MG TAB PO (08:43)
[2019-08-15] MEDS: dilTIAZem 30 MG TAB PO ×3 (08:43→20:15)
[2019-08-15] MEDS: Normal Saline Flush 10 ML SYR IVP ×2 (11:36→17:22)
[2019-08-15] MEDS: MAGNESIUM SULFATE 2 GM/50 ML BAG IVPB (11:36)
--- NOTE | 2019-08-15 11:40 | PT.INTREAT ---
Date of service: 08/15/19 PT Notes Inpatient Physical Therapy Treatment Note [facility] Date: 08/05/19 SUBJECTIVE: Khoi states that he is willing to do what he needs to do to get better. OBJECTIVE: [] PAIN: c/o right quad/ hip pain with wt bearing. BED MOBILITY/TRANSFERS Sit-stand: SBA/CGA Stand-sit: SBA GAIT Assistive Device: fww Weight bearing: full Assist: CGAx2 Distance: 30' Deviation: recliner followed close behind. THEREX: performed a general LE strengthening routine. See flowsheet for details. ASSESSMENT: tolerated session fairly well. Required constant cues for encouragement as well as proper use of walker,(ie: sequencing and off loading weight of right LE) States no pain after taking a few steps. PLAN: will continue with strength and functional mobility as per established goals set by PT. TREATMENT CODE/TIME: 30 min. [id number], [id number].
--- NOTE | 2019-08-15 11:50 | W.SURGCON ---
Date of service: 08/15/19 Time of Service: 11:50 Assessment and Plan Assessment and plan (1) Anemia: Status: Chronic Assessment and plan: A\\ Acute on chronic anemia Most likely multifactorial due to alcohol abuse and hydration for his SAUL P\\ Agree with PPI BID and Carafate Would D/C his IV fluids and IV Heparin No plan for EGD at this time unless patient develops melena or hematochezia. He may need a colonoscopy at that time as well. Recommendations discussed with Dr. Arnold. Thank you for letting me assist with this [facility] care Qualifiers: Anemia type: iron deficiency Iron deficiency anemia type: chronic blood loss Qualified Code(s): D50.0 - Iron deficiency anemia secondary to blood loss (chronic) History of Present Illness History of Present Illness Chief Complaint: Anemia Narrative: Khoi Calero is a 74 year old man with a past medical history significant for alcohol abuse, COPD, current smoker, and depression who was recently discharged from [facility] and rehab who presented to the ED on 08/12 with reports of about a one month history of progressive decline, poor self-care, RLE pain and diarrhea. He reports having difficulty getting groceries and meals at home, he has not been taking medications since he was discharged from the rehab. He had a right hip x-ray that was negative for fracture. He also had a lumbar spine x-ray which was negative for an acute process. His labs revealed severe hypomagnesemia as low as 0.7, hypokalemia of 3.2, acute kidney injury with creatinine of 1.64 and stable chronic anemia. His urinalysis was suspicious for infection and he was started on IV levaquin. He was admitted to the med/surg floor for further observation and evaluation. Due to his electrolyte abnormalities, he was placed on telemetry. He was noted to have rates in the 150s while out of bed and appeared to be in atrial fibrillation. An EKG confirmed a-fib. He denies any history of atrial fibrillation. He denies chest pain/pressure or palpitations. He has intermittent shortness of breath, denies coughing or wheezing. His appetite has been poor and he has been nauseated, he relates this to his RLE pain. He describes pain that starts in his foot and goes up his leg and into his right hip. He denies vomiting, but has had occasional loose stools. He reports that his last alcoholic drink was 25 days ago. He is a current smoker, he smokes 15 cigarettes per day. He endorses frequent urination and incontinence, denies dysuria or hematuria. I was consulted today for continue decrease in Hgb. Mr. Calero has a history of alcohol abuse. 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 NO bleeding ulcers at that time. Unfortunately Mr. Calero did not continue on his PPI after discharge from rehab and was again drinking alcohol. He denies abdominal pain. He denies melena or hematochezia. His stools is positive for occult blood. Due to his SAUL on admission he has been getting IV fluids throughout his stay as well as drinking plenty of oral fluids. Weight on admission per patient 155 Lb. No weight since admission Consults Consult date: 08/15/19 Requesting physician: Ca Arnold Review of Systems Constitutional Constitutional: Denies fever(s), Denies night sweats, Reports weakness and Denies weight loss Eyes Eyes: Denies change in vision ENT Ears, Nose, Mouth, and Throat: Denies dysphagia Cardiovascular Cardiovascular: Denies chest pain, Denies rapid heart rate, Denies irregular heart rhythm, Denies palpitations, Denies dyspnea and Denies dyspnea on exertion Respiratory Respiratory: Denies chest congestion, Denies cough, Denies dyspnea and Denies dyspnea on exertion Gastrointestinal Gastrointestinal: Denies dysphagia, Denies early satiety, Denies dyspepsia, Denies heartburn and Reports diarrhea Genitourinary Genitourinary: Denies dysuria Musculoskeletal Musculoskeletal: Reports as per HPI Integumentary/Breasts Skin/Breast: Reports system reviewed and no additional complaints, except as docu Neurologic Neurologic: Reports system reviewed and no additional complaints, except as docu and Reports weakness Psychiatric Psychiatric: Reports system reviewed and no additional complaints, except as docu Endocrine Endocrine: Denies palpitations PFSH Medical History Alcohol use disorder (Acute) COPD (chronic obstructive pulmonary disease) (Chronic) Smoking hx (Acute) Social History Smoking/Tobacco Use Status: Current every day Tobacco Type: cigarettes Years smoked: 50 Alcohol Intake: current Alcohol Intake frequency: 3 or more drinks per day Drug use: Never Substance use type: does not use Do you feel safe at home: Yes Do you feel safe in your relationship?: Yes Additional Social history: Lives alone in apartment in [facility] for past ~6 years, closest family brother Owen in [place], [place] 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[employer], 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 [place] Exam Const General: cooperative, comfortable and no acute distress Orientation: alert and oriented x3 HENMT Head: normocephalic and atraumatic Resp Effort & Inspection: normal respiratory effort Auscultation: clear to auscultation bilaterally Cardio Rate: regular rate Rhythm: abnormal rhythm irregularly irregular Heart Sounds: no gallops, no murmurs and no rubs GI Inspection: normal to inspection Palpation: soft and nontender Auscultation: normal bowel sounds Results Last Vital Signs Temp 97.5 F L 08/15/19 07:38 Pulse 89 08/15/19 08:48 Resp 17 08/15/19 07:38 BP 147/89 H 08/15/19 07:38 Pulse Ox 98 08/15/19 07:38 Labs Result diagrams: 08/15/19 06:30 08/15/19 06:30 Labs: Laboratory Results - last 24 hr 08/15/19 08/15/19 08/15/19 06:30 06:30 11:34 WBC 3.93 L RBC 3.61 L Hgb 7.2 L Hct 25.4 L MCV 70.4 L MCH 19.9 L MCHC 28.3 L RDW 18.0 H Plt Count 230 MPV 9.3 Immature Gran % 0.8 Neutrophils % 53.7 Lymphocytes % 26.7 Monocytes % 13.2 Eosinophils % 4.8 Basophils % 0.8 Absolute Neutrophils 2.11 Absolute Lymphocytes 1.05 L Absolute Monocytes 0.52 Absolute Eosinophils 0.19 Absolute Basophils 0.03 Sodium 139 Potassium 4.6 Chloride 108 H Carbon Dioxide 22.3 Anion Gap 8.7 BUN 15 Creatinine 1.39 H Estimated GFR/1.73 m2 50.09 Glucose 102 H Calcium 8.0 L Magnesium 1.6 L Crossmatch See Detail
[2019-08-15] MEDS: diphenhydrAMINE 25 MG CAP PO (13:04)
--- NOTE | 2019-08-15 17:39 | W.PM.PROGNOT ---
Date of Service Date of service: 08/15/19 Time of Service: 17:39 Assessment and Plan Assessment and plan (1) UTI (urinary tract infection): Status: Acute Assessment and plan: Present on admission, though unfortunately his urine C&S was mixed. On IV levaquin. +urinary retention - Voiding trial after 3-5 days on flomax. (2) Anemia: Status: Chronic Assessment and plan: Due to acute GI blood loss, heme +, in addition to B12 deficiency. S/p transfusion of 1 unit of pRBC's today. D/c heparin SC. Surgery consulted - recent EGD (04/2019) was negative for varices or acute source of bleeding. Continue PPI/carafate. May require colonoscopy. Qualifiers: Anemia type: iron deficiency Iron deficiency anemia type: chronic blood loss Qualified Code(s): D50.0 - Iron deficiency anemia secondary to blood loss (chronic) (3) SAUL (acute kidney injury): Status: Acute Assessment and plan: Likely near baseline. D/c IVF. (4) Hypomagnesemia: Status: Acute Assessment and plan: Replete and recheck in am (5) Hypokalemia: Status: Resolved Assessment and plan: Resolved. Continue to monitor. (6) Atrial fibrillation: Status: Chronic Assessment and plan: New atrial fibrillation. Troponins negative x3. Echo showed LVEF of 50%. Stable on tele. Continue low dose Cardizem with hold parameters. Hold off of anticoagulation due to noncompliance as well as recurrent heme + stools. (7) Failure to thrive: Status: Acute Assessment and plan: Recently discharged from [facility] and rehab. Continue PT. May need to return to rehab. (8) Alcohol use disorder: Status: Suspected Assessment and plan: Reports last alcoholic beverage was 25 days ago. Monitor on CIWA protocol with PRN ativan. (9) COPD (chronic obstructive pulmonary disease): Status: Chronic Assessment and plan: Does not appear to be in acute exacerbation. Continues to smoke. Declines nicotine replacement. Encourage smoking cessation. (10) DVT prophylaxis: Status: Acute Assessment and plan: TEDS + SCD's. Chemical DVT ppx contraindicated in GI bleeding (11) Discharge planning issues: Status: Acute Assessment and plan: Full code May require rehab Subjective Subjective Interval history since last seen: Mr Calero is very interested in dinner. He also feels a little queezy. Denies dizziness, chest pain, shortness of breath, abdominal pain. Receiving 1 unit pRBC's today for Hgb of 7.2 and Hemoccult positivity. Exam Narrative Exam Narrative: General: elderly male whom I woke up out of sleep who does not seem to be interestd in answering my questions, A&Ox3 HEENT: EOMI, MMM Heart: RRR, mildly tachycardic Lungs: CTAB GI: abdomen is soft, nontender, nondistended Extremities: no e/c/c BLE's Objective Objective Clinical Data: Abnormal lab results 08/15/19 08/15/19 08/15/19 Range/Units 06:30 06:30 11:34 WBC 3.93 L (4.4-10.8) k/cumm RBC 3.61 L (4.50-6.00) m/cumm Hgb 7.2 L (13.5-17.5) g/dL Hct 25.4 L (40.0-50.0) % MCV 70.4 L (80-95) fL MCH 19.9 L (27.0-33.0) pg MCHC 28.3 L (32.0-36.0) g/dL RDW 18.0 H (11.8-14.1) % Absolute Lymphocytes 1.05 L (1.2-3.4) k/cumm Chloride 108 H (98-107) mmol/L Creatinine 1.39 H (0.70-1.30) mg/dL Glucose 102 H (70-100) mg/dL Calcium 8.0 L (8.5-10.1) mg/dL Magnesium 1.6 L (1.8-2.4) mg/dL Crossmatch See Detail Vital Signs Temperature 36.7 C 08/15/19 17:10 Temperature Source Tympanic 08/15/19 11:38 Pulse 83 08/15/19 17:10 Pulse Rhythm Irregular 08/15/19 15:50 Respiratory Rate 18 08/15/19 17:10 Respiratory Effort Non-Labored 08/15/19 15:50 Respiratory Depth Normal 08/15/19 15:50 Respiratory Pattern Normal 08/15/19 15:50 Blood Pressure 165/81 H 08/15/19 17:10 Blood Pressure Position Supine 08/12/19 07:56 Pulse Oximetry 98 08/15/19 17:10 Oxygen Delivery Method Room Air 08/15/19 17:10 Oxygen Flow Rate 0 08/15/19 17:10 Pain Level 1 08/15/19 11:38 Comment 08/15/19 00:10 Intake & Output 08/14/19 08/15/19 08/15/19 23:59 11:59 23:59 Intake Total 1392.5 / 1392.5 1278.333 / 1669.333 391 / 1669.333 Output Total 1700 / 2600 1100 / 1750 650 / 1750 Balance -307.5 / -1207.5 178.333 / -80.667 -259 / -80.667 Weight 67.7 kg Intake: IV 1142.5 / 1142.5 798.333 / 798.333 Oral 250 / 250 480 / 480 Blood Product 316 / 316 Rbc Leuko Reduced Unit 316 / 316 [id number] Other 75 / 75 Rbc Leuko Reduced Unit 75 / 75 [id number] Output: Urine 1700 / 2600 1100 / 1750 650 / 1750 Other: Urine Color Yellow Yellow Yellow Urine Appearance Cloudy Sediment Clear Comment Emptied by Kateryna BUTTERFIELD pt refused murry care x 2 Stool Occult Blood Positive Stool Size Moderate Large Stool Characteristics Soft Soft Brown Formed Brown Laboratory Results WBC 3.93 k/cumm (4.4-10.8) L 08/15/19 06:30 RBC 3.61 m/cumm (4.50-6.00) L 08/15/19 06:30 Hgb 7.2 g/dL (13.5-17.5) L 08/15/19 06:30 Hct 25.4 % (40.0-50.0) L 08/15/19 06:30 MCV 70.4 fL (80-95) L 08/15/19 06:30 MCH 19.9 pg (27.0-33.0) L 08/15/19 06:30 MCHC 28.3 g/dL (32.0-36.0) L 08/15/19 06:30 RDW 18.0 % (11.8-14.1) H 08/15/19 06:30 Plt Count 230 x1000/uL (130-400) 08/15/19 06:30 MPV 9.3 fL (8.0-11.0) 08/15/19 06:30 Immature Gran % 0.8 08/15/19 06:30 Neutrophils % 53.7 08/15/19 06:30 Lymphocytes % 26.7 08/15/19 06:30 Monocytes % 13.2 08/15/19 06:30 Eosinophils % 4.8 08/15/19 06:30 Basophils % 0.8 08/15/19 06:30 Absolute Neutrophils 2.11 k/cumm (1.2-6.7) 08/15/19 06:30 Absolute Lymphocytes 1.05 k/cumm (1.2-3.4) L 08/15/19 06:30 Absolute Monocytes 0.52 k/cumm (0.11-0.7) 08/15/19 06:30 Absolute Eosinophils 0.19 k/cumm (0.0-0.7) 08/15/19 06:30 Absolute Basophils 0.03 k/cumm (0.0-0.2) 08/15/19 06:30 Differential Comment Diff reviewed 08/14/19 06:40 RBC Morphology See below 08/14/19 06:40 Polychromasia Present 08/13/19 06:25 Hypochromasia 3+ 08/14/19 06:40 Anisocytosis 2+ 08/14/19 06:40 Microcytosis 3+ 08/13/19 06:25 Macrocytosis 1+ 08/14/19 06:40 Tear Drop Cells 2+ 08/14/19 06:40 Ovalocytes 2+ 08/12/19 08:29 Schistocytes 1+ 08/14/19 06:40 Sodium 139 mmol/L (136-145) 08/15/19 06:30 Potassium 4.6 mmol/L (3.5-5.1) 08/15/19 06:30 Chloride 108 mmol/L (98-107) H 08/15/19 06:30 Carbon Dioxide 22.3 mmol/L (21.0-32.0) 08/15/19 06:30 Anion Gap 8.7 mmol/L (3-11) 08/15/19 06:30 BUN 15 mg/dL (7-18) 08/15/19 06:30 Creatinine 1.39 mg/dL (0.70-1.30) H 08/15/19 06:30 Estimated GFR/1.73 m2 50.09 (mL/min/1.73m2) 08/15/19 06:30 Glucose 102 mg/dL (70-100) H 08/15/19 06:30 Calcium 8.0 mg/dL (8.5-10.1) L 08/15/19 06:30 Magnesium 1.6 mg/dL (1.8-2.4) L 08/15/19 06:30 Iron 11 ug/dL (50-175) L 08/14/19 06:40 TIBC 433 ug/dL (250-450) 08/14/19 06:40 Transferrin % Sat 3 % (20-55) L 08/14/19 06:40 Ferritin 20 ng/mL (8-388) 08/14/19 06:40 Total Bilirubin 0.6 mg/dL (0.2-1.0) 08/12/19 08:29 AST 19 U/L (15-37) 08/12/19 08:29 ALT 15 U/L (16-63) L 08/12/19 08:29 Alkaline Phosphatase 77 U/L (46-116) 08/12/19 08:29 Troponin I < 0.05 ng/mL (0.00-0.06) 08/12/19 19:25 Total Protein 7.2 g/dL (6.4-8.2) 08/12/19 08:29 Albumin 3.3 g/dL (3.4-5.0) L 08/12/19 08:29 Vitamin B12 291 pg/mL (193-986) 08/14/19 06:40 Folate 7.7 ng/mL (8.6-20.0) L 08/14/19 06:40 TSH 2.49 uIU/mL (0.36-3.74) 08/14/19 06:40 Urine Color Yellow (Yellow) 08/12/19 12:45 Urine Clarity Sl cloudy (Clear) 08/12/19 12:45 Urine pH 7.0 (5-8) 08/12/19 12:45 Ur Specific [place] 1.015 (1.005-1.025) 08/12/19 12:45 Urine Protein Negative mg/dL (Negative) 08/12/19 12:45 Urine Ketones Negative mg/dL (Negative) 08/12/19 12:45 Urine Blood Trace-intact (Negative) H 08/12/19 12:45 Urine Nitrite Negative (Negative) 08/12/19 12:45 Urine Bilirubin Negative (Negative) 08/12/19 12:45 Urine Urobilinogen 1.0 EU/dL (Up TO 0.2) H 08/12/19 12:45 Ur Leukocyte Esterase Moderate (Negative) H 08/12/19 12:45 Urine RBC 5-10 HPF (0-2) H 08/12/19 12:45 Urine WBC 20-50 HPF (0-5) H 08/12/19 12:45 Ur Epithelial Cells Few HPF (Negative) 08/12/19 12:45 Urine Crystals Negative HPF (Negative) 08/12/19 12:45 Urine Bacteria Few HPF (Negative) 08/12/19 12:45 Urine Casts Negative LPF (Negative) 08/12/19 12:45 Urine Mucus Negative (Negative) 08/12/19 12:45 Ur Culture Indicated? Yes 08/12/19 12:45 Urine Glucose Negative mg/dL (Negative) 08/12/19 12:45 Urine Opiates Screen Negative (Negative) 08/12/19 12:45 Urine Methadone Screen Negative (Negative) 08/12/19 12:45 Ur Barbiturates Screen Negative (Negative) 08/12/19 12:45 Ur Tricyclics Screen Negative (Negative) 08/12/19 12:45 Ur Amphetamines Screen Negative (Negative) 08/12/19 12:45 U Benzodiazepines Scrn Negative (Negative) 08/12/19 12:45 Urine Cocaine Screen Negative (Negative) 08/12/19 12:45 Ur THC Screen Negative (Negative) 08/12/19 12:45 Ethyl Alcohol 3.6 mg/dL (<3) 08/12/19 08:29 Patient ABO/Rh O Positive 08/15/19 11:34 Antibody Screen Negative 08/15/19 11:34 Crossmatch See Detail 08/15/19 11:34
--- NOTE | 2019-08-15 17:54 | CMPROGNOTE_ITS ---
- If Service Date Differs Date of service: 08/15/19 Time of Service: 17:54 Care Management Progress Note S/O: Khoi was sitting up in bed when CM met with him. His H&H continued to drop so he received a unit of blood today. He stated that he was very tired. He had hoped to be able to nap this afternoon but was unsuccessful. He did acknowledge that he can have Melatonin at bedtime and that it helps him get a few hours of sleep. A: Khoi is a 74 year old m,an admitted on 08/13/19 with failure to thrive. P: Khoi will continue to be closely monitored at this time. CM faxed referrals [facility] (declined), [facility], [facility], [facility] and [facility] (declined referral) and is awaiting notification from admissions of facilities. Per provider, Khoi may be ready as soon as 08/17/19. CM continues to follow and support patient and discharge planning needs.
[2019-08-15 18:05] LABS: HCT 30.8 % (40.0-50.0); HGB 9.2 g/dL (13.5-17.5)
[2019-08-15] MEDS: Ascorbic Acid 500 MG TAB PO (20:15)
[2019-08-15] MEDS: Docusate Sodium 100 MG CAP PO (20:15)
[2019-08-15] MEDS: Ferrous Sulfate 325 MG TAB PO (21:30)
[2019-08-16] VITALS (7 sets, daily range): BP systolic 128–149; BP diastolic 71–82; PULSE 60–93; RESP 16–19; TEMP 36.3–37.1; O2SAT 96–97
[2019-08-16 06:46] LABS: Abs Immature Grans 0.03 k/cumm (0.0-0.09); Absolute Basophil Count 0.03 k/cumm (0.0-0.2); Absolute Eosinophil Count 0.22 k/cumm (0.0-0.7); Absolute Lymphocyte Count 1.13 k/cumm (1.2-3.4); Absolute Monocyte Count 0.63 k/cumm (0.11-0.7); Basophils % 0.6; Eosinophils % 4.6; HGB 9.4 g/dL (13.5-17.5); Immature Grans % 0.6; Lymphocytes % 23.8; Mean Corp. HGB Concentration 29.4 g/dL (32.0-36.0); Mean Corpuscular Hemoglobin 21.4 pg (27.0-33.0); Mean Corpuscular Volume 72.7 fL (80-95); Mean Platelet Volume 9.6 fL (8.0-11.0); Monocytes % 13.3; Neutrophils % 57.1; Platelet Count 279 x1000/uL (130-400); RBC Distribution Width 20.7 % (11.8-14.1); White Blood Cell Count 4.74 k/cumm (4.4-10.8)
[2019-08-16 07:03] LABS: Anion Gap 8.5 mmol/L (3-11); BUN 16 mg/dL (7-18); CO2 22.5 mmol/L (21.0-32.0); CREATININE 1.27 mg/dL (0.70-1.30); Calcium 8.2 mg/dL (8.5-10.1); Chloride 107 mmol/L (98-107); Estimated GFR 55.59 (mL/min/1.73m2); Glucose 106 mg/dL (70-100); Potassium 4.9 mmol/L (3.5-5.1); Sodium 138 mmol/L (136-145)
[2019-08-16] MEDS: Pantoprazole 40 MG TABCR PO ×2 (07:36→20:24)
[2019-08-16] MEDS: Sucralfate 1 GM TAB PO ×4 (07:36→20:25)
[2019-08-16] MEDS: Budesonide/Formoterol 160/4.5 6 GM 60 PUFF INH IH ×2 (07:42→20:27)
--- NOTE | 2019-08-16 08:07 | PDOC.CMPRO ---
- If Service Date Differs Date of service: 08/16/19 Time of Service: 08:07 Care Management Progress Note S/O: CM met with Khoi around noontime but he said he was not feeling well and asked CM to return later. CM returned around 4pm and Khoi acknowledged that he was feeling better. He discussed the fact that his hip was really painful this morning and he was nauseated so did not participate in PT. He stated he understands that it is important that he do so if he is to go to rehab. Khoi also discussed the pain in his right leg. After conversing about it he stated he believes it may be muscle spasms more than an actual hip problem. A: Khoi is a 74 year old m,an admitted on 08/13/19 with failure to thrive. P: Khoi will continue to be closely monitored at this time. CM faxed referrals [facility] (declined), [facility], [facility] and [facility] (declined referral) and is awaiting notification from admissions of facilities. Per provider, Khoi may be ready as soon as 08/17/19. CM continues to follow and support patient and discharge planning needs.
[2019-08-16] MEDS: dilTIAZem 30 MG TAB PO ×3 (08:26→20:25)
[2019-08-16] MEDS: Normal Saline Flush 10 ML SYR IVP ×2 (08:26→14:17)
[2019-08-16] MEDS: Magnesium Chloride 64 MG TABCR 128 MG PO ×2 (08:26→20:24)
[2019-08-16] MEDS: Ascorbic Acid 500 MG TAB PO ×2 (08:26→20:25)
[2019-08-16] MEDS: Docusate Sodium 100 MG CAP PO ×2 (08:27→20:23)
[2019-08-16] MEDS: Acetaminophen 325 MG TAB 650 MG PO ×2 (08:27→22:43)
[2019-08-16] MEDS: Tamsulosin 0.4 MG CAPCR PO (08:27)
[2019-08-16] MEDS: Multivitamin TAB 1 TAB PO (08:27)
[2019-08-16] MEDS: Thiamine 100 MG TAB PO (08:27)
[2019-08-16] MEDS: Cyanocobalamin 500 MCG TAB 1000 MCG PO (08:27)
[2019-08-16] MEDS: Folic Acid 1 MG TAB PO (08:27)
[2019-08-16] MEDS: Ferrous Sulfate 325 MG TAB PO ×2 (10:31→22:44)
--- NOTE | 2019-08-16 12:08 | PT.INNT ---
Date of service: 08/16/19 PT Notes pt refused PT today x 2. I'm having a bad day.
[2019-08-16] MEDS: levoFLOXacin 750 MG/150 ML BAG 100 MG IVPB (14:17)
--- NOTE | 2019-08-16 14:22 | PGE_ITS ---
Date of Service Date of service: 08/16/19 Time of Service: 14:22 Assessment and Plan Assessment and plan (1) UTI (urinary tract infection): Status: Acute Assessment and plan: Present on admission, in setting of urinary retention (now s/p murry). Unfortunately his urine C&S was mixed. On IV levaquin day 5. Per patient request, will do a voiding trial. D/c murry. (2) Anemia: Status: Chronic Assessment and plan: Due to acute GI blood loss, heme +, in addition to B12 deficiency. S/p transfusion of 1 unit of pRBC's on 08/15/19. H/H improved to 9.4/32 on this am's labs. Heme negative today. Continue to hold chemical DVT ppx. Obtain [facility] records re colonoscopy. May benefit from a repeat one on this admission vs as outpatient depending on what we see. No urgent need for either repeat EGD or colonoscopy, as did have an EGD in 04/2019. Qualifiers: Anemia type: iron deficiency Iron deficiency anemia type: chronic blood loss Qualified Code(s): D50.0 - Iron deficiency anemia secondary to blood loss (chronic) (3) SAUL (acute kidney injury): Status: Acute Assessment and plan: Likely near baseline. Did have urinary retention as well, now on flomax. Voiding trial tonight. (4) Hypomagnesemia: Status: Resolved Assessment and plan: Recheck in am (5) Hypokalemia: Status: Resolved Assessment and plan: Resolved. Continue to monitor. (6) Atrial fibrillation: Status: Chronic Assessment and plan: New atrial fibrillation, paroxysmal, has been in NSR. Troponins negative x3. Echo showed LVEF of 50%. I think it is ok to d/c tele. Continue low dose Cardizem with hold parameters. Hold off of anticoagulation due to noncompliance as well as recurrent heme + stools. (7) Failure to thrive: Status: Acute Assessment and plan: Recently discharged from [facility] and rehab. Continue PT. May need to return to rehab. (8) Alcohol use disorder: Status: Suspected Assessment and plan: Reports last alcoholic beverage was 25 days ago. Monitor on CIWA protocol with PRN ativan. CIWA score was 2 overnight. (9) COPD (chronic obstructive pulmonary disease): Status: Chronic Assessment and plan: Does not appear to be in acute exacerbation. Continues to smoke. Declines nicotine replacement. Encourage smoking cessation. (10) DVT prophylaxis: Status: Acute Assessment and plan: TEDS + SCD's. Chemical DVT ppx contraindicated in GI bleeding (11) Discharge planning issues: Status: Acute Assessment and plan: Full code May require rehab Subjective Subjective Interval history since last seen: Mr Calero states he feels depressed and generally weak. Denies dizziness, chest pain, shortness of breath. Complains of a nervous cough. Denies nausea, vomiting. Describes a nonspecific mild abdominal pain. Heme negative this morning. We spoke about his possibly getting a colonoscopy on this admission vs as outpatient. The patient informed me that 3 years ago he had one at the [facility], and that they found 2 polyps. He is not sure about getting a colonoscopy so soon again. We agreed that we will discuss this again after we obtain those medical records so that we can make that decision together. The patient is asking if it is safe to have his telemetry d/c'ed. He also reports discomfort from having a murry catheter. Exam Narrative Exam Narrative: General: elderly male, asleep, easily arousable, A&Ox3, appropriate; does appear depressed/sad. HEENT: EOMI, MMM Heart: RRR, no m/r/g Lungs: CTAB, coughed once during my visit with him. GI: abdomen is soft, nontender, nondistended Extremities: no e/c/c BLE's Objective Objective Clinical Data: Abnormal lab results 08/15/19 08/15/19 08/16/19 Range/Units 11:34 18:01 06:25 RBC (4.50-6.00) m/cumm Hgb 9.2 L (13.5-17.5) g/dL Hct 30.8 L D (40.0-50.0) % MCV (80-95) fL MCH (27.0-33.0) pg MCHC (32.0-36.0) g/dL RDW (11.8-14.1) % Absolute Lymphocytes (1.2-3.4) k/cumm Glucose 106 H (70-100) mg/dL Calcium 8.2 L (8.5-10.1) mg/dL Crossmatch See Detail 08/16/19 Range/Units 06:25 RBC 4.40 L (4.50-6.00) m/cumm Hgb 9.4 L (13.5-17.5) g/dL Hct 32.0 L (40.0-50.0) % MCV 72.7 L (80-95) fL MCH 21.4 L (27.0-33.0) pg MCHC 29.4 L (32.0-36.0) g/dL RDW 20.7 H (11.8-14.1) % Absolute Lymphocytes 1.13 L (1.2-3.4) k/cumm Glucose (70-100) mg/dL Calcium (8.5-10.1) mg/dL Crossmatch Vital Signs Temperature 36.6 C 08/16/19 11:29 Temperature Source Tympanic 08/16/19 11:29 Pulse 60 08/16/19 11:29 Pulse Rhythm Irregular 08/16/19 10:13 Respiratory Rate 19 08/16/19 11:29 Respiratory Effort Non-Labored 08/16/19 10:13 Respiratory Depth Normal 08/16/19 10:13 Respiratory Pattern Normal 08/16/19 10:13 Blood Pressure 149/77 H 08/16/19 11:29 Blood Pressure Position Supine 08/12/19 07:56 Pulse Oximetry 96 08/16/19 11:29 Oxygen Delivery Method Room Air 08/16/19 11:29 Oxygen Flow Rate 0 08/16/19 11:29 Pain Level 4 08/16/19 11:29 Comment 08/15/19 00:10 Intake & Output 08/15/19 08/16/19 08/16/19 23:59 11:59 23:59 Intake Total 791 / 2069.333 890 / 890 Output Total 1050 / 2150 1200 / 1200 Balance -259 / -80.667 -310 / -310 Weight 67.7 kg 67.4 kg Intake: IV 400 / 1198.333 10 / 10 Oral 880 / 880 Blood Product 316 / 316 Rbc Leuko Reduced Unit 316 / 316 [id number] Other 75 / 75 Rbc Leuko Reduced Unit 75 / 75 [id number] Output: Urine 1050 / 2150 1200 / 1200 Other: Urine Color Yellow Pale Urine Appearance Clear Clear Comment pt refused murry care x 2 Stool Occult Blood Negative Stool Size Large Moderate Stool Characteristics Soft Soft Formed Formed Laboratory Results WBC 4.74 k/cumm (4.4-10.8) 08/16/19 06:25 RBC 4.40 m/cumm (4.50-6.00) L 08/16/19 06:25 Hgb 9.4 g/dL (13.5-17.5) L 08/16/19 06:25 Hct 32.0 % (40.0-50.0) L 08/16/19 06:25 MCV 72.7 fL (80-95) L 08/16/19 06:25 MCH 21.4 pg (27.0-33.0) L 08/16/19 06:25 MCHC 29.4 g/dL (32.0-36.0) L 08/16/19 06:25 RDW 20.7 % (11.8-14.1) H 08/16/19 06:25 Plt Count 279 x1000/uL (130-400) 08/16/19 06:25 MPV 9.6 fL (8.0-11.0) 08/16/19 06:25 Immature Gran % 0.6 08/16/19 06:25 Neutrophils % 57.1 08/16/19 06:25 Lymphocytes % 23.8 08/16/19 06:25 Monocytes % 13.3 08/16/19 06:25 Eosinophils % 4.6 08/16/19 06:25 Basophils % 0.6 08/16/19 06:25 Absolute Neutrophils 2.70 k/cumm (1.2-6.7) 08/16/19 06:25 Absolute Lymphocytes 1.13 k/cumm (1.2-3.4) L 08/16/19 06:25 Absolute Monocytes 0.63 k/cumm (0.11-0.7) 08/16/19 06:25 Absolute Eosinophils 0.22 k/cumm (0.0-0.7) 08/16/19 06:25 Absolute Basophils 0.03 k/cumm (0.0-0.2) 08/16/19 06:25 Differential Comment Diff reviewed 08/14/19 06:40 RBC Morphology See below 08/14/19 06:40 Polychromasia Present 08/13/19 06:25 Hypochromasia 3+ 08/14/19 06:40 Anisocytosis 2+ 08/14/19 06:40 Microcytosis 3+ 08/13/19 06:25 Macrocytosis 1+ 08/14/19 06:40 Tear Drop Cells 2+ 08/14/19 06:40 Ovalocytes 2+ 08/12/19 08:29 Schistocytes 1+ 08/14/19 06:40 Sodium 138 mmol/L (136-145) 08/16/19 06:25 Potassium 4.9 mmol/L (3.5-5.1) 08/16/19 06:25 Chloride 107 mmol/L (98-107) 08/16/19 06:25 Carbon Dioxide 22.5 mmol/L (21.0-32.0) 08/16/19 06:25 Anion Gap 8.5 mmol/L (3-11) 08/16/19 06:25 BUN 16 mg/dL (7-18) 08/16/19 06:25 Creatinine 1.27 mg/dL (0.70-1.30) 08/16/19 06:25 Estimated GFR/1.73 m2 55.59 (mL/min/1.73m2) 08/16/19 06:25 Glucose 106 mg/dL (70-100) H 08/16/19 06:25 Calcium 8.2 mg/dL (8.5-10.1) L 08/16/19 06:25 Magnesium 2.0 mg/dL (1.8-2.4) 08/16/19 06:25 Iron 11 ug/dL (50-175) L 08/14/19 06:40 TIBC 433 ug/dL (250-450) 08/14/19 06:40 Transferrin % Sat 3 % (20-55) L 08/14/19 06:40 Ferritin 20 ng/mL (8-388) 08/14/19 06:40 Total Bilirubin 0.6 mg/dL (0.2-1.0) 08/12/19 08:29 AST 19 U/L (15-37) 08/12/19 08:29 ALT 15 U/L (16-63) L 08/12/19 08:29 Alkaline Phosphatase 77 U/L (46-116) 08/12/19 08:29 Troponin I < 0.05 ng/mL (0.00-0.06) 08/12/19 19:25 Total Protein 7.2 g/dL (6.4-8.2) 08/12/19 08:29 Albumin 3.3 g/dL (3.4-5.0) L 08/12/19 08:29 Vitamin B12 291 pg/mL (193-986) 08/14/19 06:40 Folate 7.7 ng/mL (8.6-20.0) L 08/14/19 06:40 TSH 2.49 uIU/mL (0.36-3.74) 08/14/19 06:40 Urine Color Yellow (Yellow) 08/12/19 12:45 Urine Clarity Sl cloudy (Clear) 08/12/19 12:45 Urine pH 7.0 (5-8) 08/12/19 12:45 Ur Specific [place] 1.015 (1.005-1.025) 08/12/19 12:45 Urine Protein Negative mg/dL (Negative) 08/12/19 12:45 Urine Ketones Negative mg/dL (Negative) 08/12/19 12:45 Urine Blood Trace-intact (Negative) H 08/12/19 12:45 Urine Nitrite Negative (Negative) 08/12/19 12:45 Urine Bilirubin Negative (Negative) 08/12/19 12:45 Urine Urobilinogen 1.0 EU/dL (Up TO 0.2) H 08/12/19 12:45 Ur Leukocyte Esterase Moderate (Negative) H 08/12/19 12:45 Urine RBC 5-10 HPF (0-2) H 08/12/19 12:45 Urine WBC 20-50 HPF (0-5) H 08/12/19 12:45 Ur Epithelial Cells Few HPF (Negative) 08/12/19 12:45 Urine Crystals Negative HPF (Negative) 08/12/19 12:45 Urine Bacteria Few HPF (Negative) 08/12/19 12:45 Urine Casts Negative LPF (Negative) 08/12/19 12:45 Urine Mucus Negative (Negative) 08/12/19 12:45 Ur Culture Indicated? Yes 08/12/19 12:45 Urine Glucose Negative mg/dL (Negative) 08/12/19 12:45 Urine Opiates Screen Negative (Negative) 08/12/19 12:45 Urine Methadone Screen Negative (Negative) 08/12/19 12:45 Ur Barbiturates Screen Negative (Negative) 08/12/19 12:45 Ur Tricyclics Screen Negative (Negative) 08/12/19 12:45 Ur Amphetamines Screen Negative (Negative) 08/12/19 12:45 U Benzodiazepines Scrn Negative (Negative) 08/12/19 12:45 Urine Cocaine Screen Negative (Negative) 08/12/19 12:45 Ur THC Screen Negative (Negative) 08/12/19 12:45 Ethyl Alcohol 3.6 mg/dL (<3) 08/12/19 08:29 Path Cons Comment 08/13/19 06:25 Patient ABO/Rh O Positive 08/15/19 11:34 Antibody Screen Negative 08/15/19 11:34 Crossmatch See Detail 08/15/19 11:34
[2019-08-16] MEDS: Melatonin 3 MG TAB PO (20:23)
[2019-08-17] MEDS: Acetaminophen 325 MG TAB 650 MG PO ×3 (04:51→23:24)
[2019-08-17 04:57] VITALS: BP 143/87; PULSE 74; RESP 18; TEMP 36.6; O2SAT 93
[2019-08-17 06:55] LABS: Abs Immature Grans 0.03 k/cumm (0.0-0.09); Absolute Basophil Count 0.03 k/cumm (0.0-0.2); Absolute Eosinophil Count 0.19 k/cumm (0.0-0.7); Absolute Lymphocyte Count 1.12 k/cumm (1.2-3.4); Absolute Monocyte Count 0.69 k/cumm (0.11-0.7); Absolute Neutrophil Count 3.19 k/cumm (1.2-6.7); Basophils % 0.6; Eosinophils % 3.6; HCT 32.9 % (40.0-50.0); HGB 9.8 g/dL (13.5-17.5); Immature Grans % 0.6; Lymphocytes % 21.3; Mean Corp. HGB Concentration 29.8 g/dL (32.0-36.0); Mean Corpuscular Hemoglobin 21.5 pg (27.0-33.0); Mean Corpuscular Volume 72.1 fL (80-95); Mean Platelet Volume 9.4 fL (8.0-11.0); Monocytes % 13.1; Neutrophils % 60.8; Platelet Count 308 x1000/uL (130-400); RBC 4.56 m/cumm (4.50-6.00); RBC Distribution Width 21.5 % (11.8-14.1); White Blood Cell Count 5.25 k/cumm (4.4-10.8)
[2019-08-17 07:02] LABS: Anion Gap 10.2 mmol/L (3-11); BUN 17 mg/dL (7-18); CO2 21.8 mmol/L (21.0-32.0); CREATININE 1.56 mg/dL (0.70-1.30); Calcium 8.6 mg/dL (8.5-10.1); Chloride 106 mmol/L (98-107); Estimated GFR 43.85 (mL/min/1.73m2); Glucose 110 mg/dL (70-100); Magnesium 1.6 mg/dL (1.8-2.4); Potassium 4.7 mmol/L (3.5-5.1); Sodium 138 mmol/L (136-145)
[2019-08-17 07:39] VITALS: BP 155/89; PULSE 94; RESP 19; TEMP 36.7; O2SAT 98
[2019-08-17] MEDS: Budesonide/Formoterol 160/4.5 6 GM 60 PUFF INH IH ×2 (08:10→21:00)
[2019-08-17 08:12] VITALS: O2SAT 99
[2019-08-17] MEDS: Magnesium Chloride 64 MG TABCR 128 MG PO ×2 (08:31→20:59)
[2019-08-17] MEDS: Sucralfate 1 GM TAB PO ×4 (08:31→23:25)
[2019-08-17] MEDS: Docusate Sodium 100 MG CAP PO ×2 (08:32→20:59)
[2019-08-17] MEDS: Thiamine 100 MG TAB PO (08:32)
[2019-08-17] MEDS: Ascorbic Acid 500 MG TAB PO ×2 (08:32→20:59)
[2019-08-17] MEDS: Cyanocobalamin 500 MCG TAB 1000 MCG PO (08:32)
[2019-08-17] MEDS: Tamsulosin 0.4 MG CAPCR PO (08:32)
[2019-08-17] MEDS: dilTIAZem 30 MG TAB PO ×3 (08:32→21:00)
[2019-08-17] MEDS: Folic Acid 1 MG TAB PO (08:33)
[2019-08-17] MEDS: Multivitamin TAB 1 TAB PO (08:33)
[2019-08-17] MEDS: Pantoprazole 40 MG TABCR PO ×2 (08:33→21:00)
--- NOTE | 2019-08-17 08:45 | PT.INNT ---
Date of service: 08/17/19 Time of Service: 08:45 PT Notes 08/17/19 Patient refused morning PT session stating I haven't slept at all because I've been in so much pain. Nsg aware. Will attempt to resume PT services this afternoon.
[2019-08-17] MEDS: Ferrous Sulfate 325 MG TAB PO ×2 (10:04→23:25)
--- NOTE | 2019-08-17 10:20 | W.PM.PROGNOT ---
Date of Service Date of service: 08/17/19 Time of Service: 10:20 Assessment and Plan Assessment and plan (1) UTI (urinary tract infection): Status: Acute Assessment and plan: Present on admission, in setting of urinary retention (now s/p murry with removal). Unfortunately his urine C&S was mixed. no elevated white count, no fevers. completed IV levaquin 5 days, will discontinue and continue to monitor. Per patient request, murry discontinued for void trial. He had voided but post void bladder scan shows 356 retained, he refused another post void bladder scan after. he is denying pain or symptoms. continue to monitor I&O, bladder scan and in and out murry as needed for retention >500 and or symptoms. continue flomax. (2) SAUL (acute kidney injury): Status: Acute Assessment and plan: creatinine up from 1.27 to 1.56, review of creatinine shows range 1.3-1.6. will continue to follow, avoid nephrotoxic drugs, renal dosing on medications. evaluate for signs of retention. (3) Atrial fibrillation: Status: Chronic Assessment and plan: New atrial fibrillation, paroxysmal, has been in NSR. Troponins negative x3. Echo showed LVEF of 50%. stable off tele. Continue low dose Cardizem with hold parameters. Hold off of anticoagulation due to noncompliance, ongoing alcohol abuse, as well as recurrent heme + stools (4) Alcohol withdrawal: Status: Acute Assessment and plan: CIWA 2 again overnight d/t agitation, ativan prn, can likely d/c ciwa tomorrow. no active signs of withdrawal on exam (5) COPD (chronic obstructive pulmonary disease): Status: Chronic Assessment and plan: stable, Declines nicotine replacement. Encourage smoking cessation. (6) Discharge planning issues: Status: Acute Assessment and plan: case management following, referrals placed for acute rehab following extended hospitalization with ambulatory dysfunction (7) GI bleed: Status: Chronic Assessment and plan: stable, Due to acute GI blood loss, heme +, in addition to B12 deficiency. S/p transfusion of 1 unit of pRBC's. follow H&H no pharmacologic DVT prophylaxis. Surgery consulted - recent EGD (04/2019) was negative for varices or acute source of bleeding. Continue PPI/carafate. 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 recommendations for repeat in 3 years. (8) Radicular pain of right lower extremity: Status: Acute Assessment and plan: reporting pain and muscle spasm in right thigh worsened with activity. xray of hip/ls spine unremarkable. will start flexeril, continue PT. can use heat or ice. consider using gabapentin (9) Insomnia: Status: Acute Assessment and plan: states he's not sleeping at night. will increase melatonin to 6 mg nightly, consider trazodone. Subjective Subjective Patient reports: still having pain, tolerating a regular diet and afebrile Interval history since last seen: patient c/o inability to sleep secondary to his ongoing pain. pain starts above knee and radiates proximally up to lateral side of leg towards hip. Exam Const General: cooperative and comfortable Nutritional Appearance: average body habitus Orientation: alert, awake and oriented x3 HENMT Head: normal to inspection, normocephalic and atraumatic Mouth: oral mucosae normal Neck Neck: normal visual inspection and full ROM Resp Effort & Inspection: normal respiratory effort Auscultation: clear to auscultation bilaterally Cardio Rate: regular rate Rhythm: regular rhythm GI Inspection: normal to inspection and distended Palpation: soft Auscultation: normal bowel sounds General: bladder abnormal distended (slightly) Skin General skin exam: no rashes or lesions noted Lesions: no lesions Rashes: no rashes Neuro General: alert and oriented x3 Cranial Nerves: CN's II-XI intact bilaterally Extrem General: no edema Right lower extremity: normal to inspection (pulse intact) and normal capillary refill; ROM limited, no cyanosis and no edema Psych Speech and Movement: agitated Objective Objective Clinical Data: Abnormal lab results 08/17/19 08/17/19 Range/Units 06:44 06:44 Hgb 9.8 L (13.5-17.5) g/dL Hct 32.9 L (40.0-50.0) % MCV 72.1 L (80-95) fL MCH 21.5 L (27.0-33.0) pg MCHC 29.8 L (32.0-36.0) g/dL RDW 21.5 H (11.8-14.1) % Absolute Lymphocytes 1.12 L (1.2-3.4) k/cumm Creatinine 1.56 H (0.70-1.30) mg/dL Glucose 110 H (70-100) mg/dL Magnesium 1.6 L (1.8-2.4) mg/dL Vital Signs Temperature 36.7 C 08/17/19 07:39 Temperature Source Tympanic 08/17/19 07:39 Pulse 94 H 08/17/19 07:39 Pulse Rhythm Irregular 08/17/19 03:23 Respiratory Rate 08/17/19 07:39 Respiratory Effort Non-Labored 08/17/19 03:23 Respiratory Depth Normal 08/17/19 03:23 Respiratory Pattern Normal 08/17/19 03:23 Blood Pressure 155/89 H 08/17/19 07:39 Blood Pressure Position Supine 08/12/19 07:56 Pulse Oximetry 99 08/17/19 08:12 Oxygen Delivery Method Room Air 08/17/19 08:12 Oxygen Flow Rate 0 08/17/19 08:12 Pain Level 10 08/17/19 07:39 Comment 08/17/19 04:57 Intake & Output 08/16/19 08/16/19 08/17/19 11:59 23:59 11:59 Intake Total 890 / 1140 250 / 1140 Output Total 1200 / 1900 700 / 1900 1870 / 1870 Balance -310 / -760 -450 / -760 -1870 / -1870 Weight 67.4 kg Intake: IV Oral 880 / 1120 240 / 1120 Output: Urine 1200 / 1900 700 / 1900 1870 Other: Urine Color Pale Yellow Pale Yellow Urine Appearance Clear Clear Clear Urine Odor Normal None Comment patient attempted to urinate and couldnt at this time. PATIENT DECLINES TO BE CATHED AT THIS TIME Stool Occult Blood Negative Negative Stool Size Moderate Large Stool Characteristics Soft Soft Formed Formed Brown Black Voiding Methods Urinal Urinal Laboratory Results WBC 5.25 k/cumm (4.4-10.8) 08/17/19 06:44 RBC 4.56 m/cumm (4.50-6.00) 08/17/19 06:44 Hgb 9.8 g/dL (13.5-17.5) L 08/17/19 06:44 Hct 32.9 % (40.0-50.0) L 08/17/19 06:44 MCV 72.1 fL (80-95) L 08/17/19 06:44 MCH 21.5 pg (27.0-33.0) L 08/17/19 06:44 MCHC 29.8 g/dL (32.0-36.0) L 08/17/19 06:44 RDW 21.5 % (11.8-14.1) H 08/17/19 06:44 Plt Count 308 x1000/uL (130-400) 08/17/19 06:44 MPV 9.4 fL (8.0-11.0) 08/17/19 06:44 Immature Gran % 0.6 08/17/19 06:44 Neutrophils % 60.8 08/17/19 06:44 Lymphocytes % 21.3 08/17/19 06:44 Monocytes % 13.1 08/17/19 06:44 Eosinophils % 3.6 08/17/19 06:44 Basophils % 0.6 08/17/19 06:44 Absolute Neutrophils 3.19 k/cumm (1.2-6.7) 08/17/19 06:44 Absolute Lymphocytes 1.12 k/cumm (1.2-3.4) L 08/17/19 06:44 Absolute Monocytes 0.69 k/cumm (0.11-0.7) 08/17/19 06:44 Absolute Eosinophils 0.19 k/cumm (0.0-0.7) 08/17/19 06:44 Absolute Basophils 0.03 k/cumm (0.0-0.2) 08/17/19 06:44 Differential Comment Diff reviewed 08/14/19 06:40 RBC Morphology See below 08/14/19 06:40 Polychromasia Present 08/13/19 06:25 Hypochromasia 3+ 08/14/19 06:40 Anisocytosis 2+ 08/14/19 06:40 Microcytosis 3+ 08/13/19 06:25 Macrocytosis 1+ 08/14/19 06:40 Tear Drop Cells 2+ 08/14/19 06:40 Ovalocytes 2+ 08/12/19 08:29 Schistocytes 1+ 08/14/19 06:40 Sodium 138 mmol/L (136-145) 08/17/19 06:44 Potassium 4.7 mmol/L (3.5-5.1) 08/17/19 06:44 Chloride 106 mmol/L (98-107) 08/17/19 06:44 Carbon Dioxide 21.8 mmol/L (21.0-32.0) 08/17/19 06:44 Anion Gap 10.2 mmol/L (3-11) 08/17/19 06:44 BUN 17 mg/dL (7-18) 08/17/19 06:44 Creatinine 1.56 mg/dL (0.70-1.30) H 08/17/19 06:44 Estimated GFR/1.73 m2 43.85 (mL/min/1.73m2) 08/17/19 06:44 Glucose 110 mg/dL (70-100) H 08/17/19 06:44 Calcium 8.6 mg/dL (8.5-10.1) 08/17/19 06:44 Magnesium 1.6 mg/dL (1.8-2.4) L 08/17/19 06:44 Iron 11 ug/dL (50-175) L 08/14/19 06:40 TIBC 433 ug/dL (250-450) 08/14/19 06:40 Transferrin % Sat 3 % (20-55) L 08/14/19 06:40 Ferritin 20 ng/mL (8-388) 08/14/19 06:40 Total Bilirubin 0.6 mg/dL (0.2-1.0) 08/12/19 08:29 AST 19 U/L (15-37) 08/12/19 08:29 ALT 15 U/L (16-63) L 08/12/19 08:29 Alkaline Phosphatase 77 U/L (46-116) 08/12/19 08:29 Troponin I < 0.05 ng/mL (0.00-0.06) 08/12/19 19:25 Total Protein 7.2 g/dL (6.4-8.2) 08/12/19 08:29 Albumin 3.3 g/dL (3.4-5.0) L 08/12/19 08:29 Vitamin B12 291 pg/mL (193-986) 08/14/19 06:40 Folate 7.7 ng/mL (8.6-20.0) L 08/14/19 06:40 TSH 2.49 uIU/mL (0.36-3.74) 08/14/19 06:40 Urine Color Yellow (Yellow) 08/12/19 12:45 Urine Clarity Sl cloudy (Clear) 08/12/19 12:45 Urine pH 7.0 (5-8) 08/12/19 12:45 Ur Specific [place] 1.015 (1.005-1.025) 08/12/19 12:45 Urine Protein Negative mg/dL (Negative) 08/12/19 12:45 Urine Ketones Negative mg/dL (Negative) 08/12/19 12:45 Urine Blood Trace-intact (Negative) H 08/12/19 12:45 Urine Nitrite Negative (Negative) 08/12/19 12:45 Urine Bilirubin Negative (Negative) 08/12/19 12:45 Urine Urobilinogen 1.0 EU/dL (Up TO 0.2) H 08/12/19 12:45 Ur Leukocyte Esterase Moderate (Negative) H 08/12/19 12:45 Urine RBC 5-10 HPF (0-2) H 08/12/19 12:45 Urine WBC 20-50 HPF (0-5) H 08/12/19 12:45 Ur Epithelial Cells Few HPF (Negative) 08/12/19 12:45 Urine Crystals Negative HPF (Negative) 08/12/19 12:45 Urine Bacteria Few HPF (Negative) 08/12/19 12:45 Urine Casts Negative LPF (Negative) 08/12/19 12:45 Urine Mucus Negative (Negative) 08/12/19 12:45 Ur Culture Indicated? Yes 08/12/19 12:45 Urine Glucose Negative mg/dL (Negative) 08/12/19 12:45 Urine Opiates Screen Negative (Negative) 08/12/19 12:45 Urine Methadone Screen Negative (Negative) 08/12/19 12:45 Ur Barbiturates Screen Negative (Negative) 08/12/19 12:45 Ur Tricyclics Screen Negative (Negative) 08/12/19 12:45 Ur Amphetamines Screen Negative (Negative) 08/12/19 12:45 U Benzodiazepines Scrn Negative (Negative) 08/12/19 12:45 Urine Cocaine Screen Negative (Negative) 08/12/19 12:45 Ur THC Screen Negative (Negative) 08/12/19 12:45 Ethyl Alcohol 3.6 mg/dL (<3) 08/12/19 08:29 Path Cons Comment 08/13/19 06:25 Patient ABO/Rh O Positive 08/15/19 11:34 Antibody Screen Negative 08/15/19 11:34 Crossmatch See Detail 08/15/19 11:34
--- NOTE | 2019-08-17 13:41 | PT.INNT ---
Date of service: 08/17/19 Time of Service: 13:42 PT Notes 08/17/19 Patient refused afternoon PT session stating I still haven't slept at all because I've been in so much pain. Nsg aware. Will attempt to resume PT services tomorrow morning.
--- NOTE | 2019-08-17 14:36 | CMPROGNOTE_ITS ---
- If Service Date Differs Date of service: 08/17/19 Time of Service: 14:36 Care Management Progress Note S/O:Khoi was lying in bed with the shades drawn when CM entered the room. He was complaining about his hip hurting and how he had not slept all night. When asked if he had tried sitting on the edge of the bed to relieve the pain he acknowledged that he had but stated he couldn't sit there all night.CM shared that she had contacted the [place] and would work on getting his status updated so that he could again receive benefits. A: Khoi is a 74 year old m,an admitted on 08/13/19 with failure to thrive. P: Khoi will continue to be closely monitored at this time. CM faxed referrals [facility] (declined), [facility], [facility] (declined), [facility] (declined referral) and is awaiting notification from admissions of facilities. Per provider, Khoi may be ready as soon as 08/17/19. CM continues to follow and support patient and discharge planning needs.
[2019-08-17] MEDS: Cyclobenzaprine 10 MG TAB PO ×2 (14:56→21:00)
--- NOTE | 2019-08-17 15:19 | CHAPLAIN ---
Khoi was in bed, watching tv in the dark when I visited. He told me that his right thigh muscle has been very painful, all night and he didn't sleep last night at all. It was the worst night of my life, he said. He was waiting for a muscle relaxant from his nurse. Watching tv has been a good distraction he said. Khoi said his brother who lives outside of [place], [place], will be visiting on Saturday.
[2019-08-17 16:20] VITALS: BP 147/69; PULSE 71; RESP 16; TEMP 37; O2SAT 98
--- NOTE | 2019-08-17 18:45 | NUR.NOTE ---
Nursing Note: While tending to the needs of another patient , I was told that this patient requested to speak to me. I went to his room when I was finished with my task. patient was found to be sleeping, i left him alone, and did not disturb him
[2019-08-17 20:31] VITALS: BP 158/53; PULSE 65; RESP 20; TEMP 36.7; O2SAT 98
[2019-08-17] MEDS: Melatonin 3 MG TAB 6 MG PO (20:59)
[2019-08-17] MEDS: Gabapentin 100 MG CAP PO (20:59)
[2019-08-18 07:14] LABS: Abs Immature Grans 0.05 k/cumm (0.0-0.09); Absolute Basophil Count 0.05 k/cumm (0.0-0.2); Absolute Eosinophil Count 0.22 k/cumm (0.0-0.7); Absolute Lymphocyte Count 1.29 k/cumm (1.2-3.4); Absolute Neutrophil Count 2.91 k/cumm (1.2-6.7); Basophils % 0.9; Eosinophils % 4.1; HCT 34.2 % (40.0-50.0); HGB 10.3 g/dL (13.5-17.5); Immature Grans % 0.9; Lymphocytes % 23.8; Mean Corp. HGB Concentration 30.1 g/dL (32.0-36.0); Mean Corpuscular Hemoglobin 21.5 pg (27.0-33.0); Mean Corpuscular Volume 71.4 fL (80-95); Mean Platelet Volume 9.3 fL (8.0-11.0); Monocytes % 16.6; Neutrophils % 53.7; Platelet Count 344 x1000/uL (130-400); RBC 4.79 m/cumm (4.50-6.00); RBC Distribution Width 22.2 % (11.8-14.1); White Blood Cell Count 5.42 k/cumm (4.4-10.8)
[2019-08-18 07:29] LABS: Anion Gap 10.2 mmol/L (3-11); BUN 21 mg/dL (7-18); CO2 23.8 mmol/L (21.0-32.0); CREATININE 1.35 mg/dL (0.70-1.30); Calcium 9.2 mg/dL (8.5-10.1); Chloride 106 mmol/L (98-107); Estimated GFR 51.81 (mL/min/1.73m2); Glucose 97 mg/dL (70-100); Potassium 4.6 mmol/L (3.5-5.1); Sodium 140 mmol/L (136-145)
[2019-08-18 07:30] VITALS: BP 144/75; PULSE 85; RESP 18; TEMP 36.7; O2SAT 95
[2019-08-18] MEDS: Budesonide/Formoterol 160/4.5 6 GM 60 PUFF INH IH ×2 (07:37→20:47)
[2019-08-18 07:40] LABS: Anisocytosis 3+; Diff Comment RBC Morph Reviewed; Hypochromasia 3+; Microcytosis 3+
[2019-08-18 07:41] LABS: Poikilocytes 2+
[2019-08-18] MEDS: Magnesium Chloride 64 MG TABCR 128 MG PO ×2 (08:52→20:48)
[2019-08-18] MEDS: dilTIAZem 30 MG TAB PO ×3 (08:52→20:48)
[2019-08-18] MEDS: Multivitamin TAB 1 TAB PO (08:52)
[2019-08-18] MEDS: Thiamine 100 MG TAB PO (08:52)
[2019-08-18] MEDS: Cyanocobalamin 500 MCG TAB 1000 MCG PO (08:52)
[2019-08-18] MEDS: Ascorbic Acid 500 MG TAB PO ×2 (08:52→20:47)
[2019-08-18] MEDS: Gabapentin 100 MG CAP PO ×3 (08:52→14:40)
[2019-08-18] MEDS: Tamsulosin 0.4 MG CAPCR PO (08:52)
[2019-08-18] MEDS: Folic Acid 1 MG TAB PO (08:53)
[2019-08-18] MEDS: Pantoprazole 40 MG TABCR PO ×2 (08:53→20:48)
[2019-08-18] MEDS: Docusate Sodium 100 MG CAP PO ×2 (08:53→20:48)
[2019-08-18] MEDS: Sucralfate 1 GM TAB PO ×4 (08:53→20:48)
[2019-08-18] MEDS: Acetaminophen 325 MG TAB 650 MG PO (09:03)
[2019-08-18] MEDS: Cyclobenzaprine 10 MG TAB PO (09:03)
--- NOTE | 2019-08-18 09:25 | PDOC.CMPRO ---
Care Management Progress Note S/O: Khoi was lying in bed with the shades drawn when CM entered the room. CM opened shades; Khoi was receptive and approachable. [facility] contacted [facility] and [facility] requested to ensure Khoi is able to reinstate [facility] service connection. CM continues to follow. A: Khoi is a 74 year old male admitted to [facility] 08/13/19 with SAUL, UTI, failure to thrive. P: Khoi will continue to be closely monitored at this time. CM faxed referrals (see below)and is awaiting notification from admissions of facilities. CM continues to follow and support patient and discharge planning needs. [facility] (declined) [facility] (declined) [facility] (declined)
[2019-08-18] MEDS: Ferrous Sulfate 325 MG TAB PO ×2 (10:28→20:48)
--- NOTE | 2019-08-18 14:40 | PGE_ITS ---
Date of Service Date of service: 08/18/19 Time of Service: 14:40 Assessment and Plan Assessment and plan (1) UTI (urinary tract infection): Status: Acute Assessment and plan: Resolved. Urine culture was mixed. This was in the setting of urinary retention. He did have a Cornejo catheter initially, the catheter has been removed. He is voiding well. He received Levaquin x5 days. No longer on antibiotics. He has been refusing bladder scans. Continue straight catheterizations as needed for urinary retention. Continue Flomax. (2) SAUL (acute kidney injury): Status: Acute Assessment and plan: Creatinine at baseline today at 1.35. Continue to avoid nephrotoxic medications, renal dosing on medications. Continue to monitor for urinary retention. (3) Insomnia: Status: Acute Assessment and plan: He reports that he slept well last night with the increase melatonin dose. Continue melatonin 6 mg at at bedtime. (4) Atrial fibrillation: Status: Chronic Assessment and plan: New atrial fibrillation, paroxysmal, has been in normal sinus rhythm. His troponins were negative x3. His echo showed LVEF of 50%. He is no longer on telemetry. Continue low-dose Cardizem with hold parameters. Hold off on anticoagulation in the setting of recurrent heme positive stools and ongoing alcohol abuse. (5) Alcohol withdrawal: Status: Acute Assessment and plan: Does not appear to be experiencing withdrawal from alcohol. Today is hospital day #6, discontinue CIWA. (6) COPD (chronic obstructive pulmonary disease): Status: Chronic Assessment and plan: Does not appear to be in acute exacerbation. Continues to decline nicotine replacement. Reports he quit smoking when he was admitted to the hospital. Continue to encourage smoking cessation. (7) GI bleed: Status: Chronic Assessment and plan: Stable. No longer having heme positive stools. He did receive 1 unit of packed red blood cells during this hospitalization, hem oglobin stable at 10.3. He had a recent EGD (04/2019) was negative for varices or acute source of bleeding. Continue PPI and Carafate. Continue to monitor hemoglobin and hematocrit. (8) Radicular pain of right lower extremity: Status: Acute Assessment and plan: Improving. He has been initiated on gabapentin and Flexeril. He continues to report pain and muscle spasm in the right lower extremity, increases with activity. Avoid NSAIDs in the setting of recurrent GI bleeding and chronic kidney disease. Increase gabapentin to 200 mg 3 times daily. Continue Flexeril. Heat or ice for comfort. Continue physical therapy. (9) DVT prophylaxis: Status: Acute Assessment and plan: Hold chemical DVT prophylaxis due to heme positive stools. Teds and SCDs for mechanical DVT prophylaxis. (10) Discharge planning issues: Status: Acute Assessment and plan: He is a full code. He would benefit from rehab at a intermediate facility prior to returning home. Continue PT. Care management is working on getting him [facility] with the [facility]. This case was discussed with Dr. Arnold who is in agreement. Subjective Subjective Interval history since last seen: Mr. Calero reports improvement in his pain since starting gabapentin and muscle relaxer, however, the pain is still significant. He has been able to ambulate in the hallway. He has increased right lower extremity pain after ambulating. He denies pain at rest. He reports sleeping well last night. He is eating and drinking and tolerating his diet. He is not having nicotine cravings. He believes he is emptying his bladder well. He denies any dysuria or hematuria. No chest pain/pressure, palpitations, shortness of breath, coughing, wheezing, nausea, vomiting or diarrhea. Exam Narrative Exam Narrative: General: Elderly man, resting with eyes closed on the left side, awakens easily, alert and oriented x3. Answers questions appropriately. In no acute distress. HEENT: Atraumatic, pupils equal and round, extraocular movements intact, mucous membranes moist. Cardiovascular: Heart has regular rate and rhythm, non-tachycardic, no murmur appreciated. Respiratory: Respirations appear even and unlabored, lungs are clear bilaterally. GI: Normoactive bowel sounds x4 quadrants, abdomen soft, nontender on palpation, nondistended. Extremities: No clubbing, cyanosis or edema. Objective Objective Clinical Data: Abnormal lab results 08/18/19 08/18/19 Range/Units 06:30 06:30 Hgb 10.3 L (13.5-17.5) g/dL Hct 34.2 L (40.0-50.0) % MCV 71.4 L (80-95) fL MCH 21.5 L (27.0-33.0) pg MCHC 30.1 L (32.0-36.0) g/dL RDW 22.2 H (11.8-14.1) % Absolute Monocytes 0.90 H (0.11-0.7) k/cumm BUN 21 H (7-18) mg/dL Creatinine 1.35 H (0.70-1.30) mg/dL Vital Signs Temperature 36.7 C 08/18/19 07:30 Temperature Source Tympanic 08/18/19 07:30 Pulse 85 08/18/19 07:30 Pulse Rhythm Irregular 08/18/19 03:39 Respiratory Rate 18 08/18/19 07:30 Respiratory Effort Non-Labored 08/18/19 03:39 Respiratory Depth Normal 08/18/19 03:39 Respiratory Pattern Normal 08/18/19 03:39 Blood Pressure 144/75 H 08/18/19 07:30 Blood Pressure Position Supine 08/12/19 07:56 Pulse Oximetry 95 08/18/19 07:30 Oxygen Delivery Method Room Air 08/18/19 07:30 Oxygen Flow Rate 0 08/18/19 07:30 Pain Level 3 08/18/19 10:03 Comment 08/17/19 09:58 Intake & Output 08/17/19 08/18/19 08/18/19 23:59 11:59 23:59 Intake Total 1260 / 1260 240 / 480 240 / 480 Output Total 945 / 2816 550 / 550 Balance 315 / -1556 -310 / -70 240 / -70 Intake: Oral 1260 / 1260 240 / 480 240 / 480 Output: Urine 945 / 2816 550 / 550 Other: Urine Color Yellow Yellow Urine Appearance Clear Clear Urine Odor Normal Normal Comment Refusing pt had voided prior to RN entering room; not clear as to when pt voided, bladder scan for residual was not done Voiding Methods Urinal Urinal Laboratory Results WBC 5.42 k/cumm (4.4-10.8) 08/18/19 06:30 RBC 4.79 m/cumm (4.50-6.00) 08/18/19 06:30 Hgb 10.3 g/dL (13.5-17.5) L 08/18/19 06:30 Hct 34.2 % (40.0-50.0) L 08/18/19 06:30 MCV 71.4 fL (80-95) L 08/18/19 06:30 MCH 21.5 pg (27.0-33.0) L 08/18/19 06:30 MCHC 30.1 g/dL (32.0-36.0) L 08/18/19 06:30 RDW 22.2 % (11.8-14.1) H 08/18/19 06:30 Plt Count 344 x1000/uL (130-400) 08/18/19 06:30 MPV 9.3 fL (8.0-11.0) 08/18/19 06:30 Immature Gran % 0.9 08/18/19 06:30 Neutrophils % 53.7 08/18/19 06:30 Lymphocytes % 23.8 08/18/19 06:30 Monocytes % 16.6 08/18/19 06:30 Eosinophils % 4.1 08/18/19 06:30 Basophils % 0.9 08/18/19 06:30 Absolute Neutrophils 2.91 k/cumm (1.2-6.7) 08/18/19 06:30 Absolute Lymphocytes 1.29 k/cumm (1.2-3.4) 08/18/19 06:30 Absolute Monocytes 0.90 k/cumm (0.11-0.7) H 08/18/19 06:30 Absolute Eosinophils 0.22 k/cumm (0.0-0.7) 08/18/19 06:30 Absolute Basophils 0.05 k/cumm (0.0-0.2) 08/18/19 06:30 Differential Comment Rbc morph reviewed 08/18/19 06:30 RBC Morphology See below 08/18/19 06:30 Polychromasia Present 08/13/19 06:25 Hypochromasia 3+ 08/18/19 06:30 Poikilocytosis 2+ 08/18/19 06:30 Anisocytosis 3+ 08/18/19 06:30 Microcytosis 3+ 08/18/19 06:30 Macrocytosis 1+ 08/14/19 06:40 Tear Drop Cells 2+ 08/14/19 06:40 Ovalocytes 2+ 08/12/19 08:29 Schistocytes 1+ 08/14/19 06:40 Sodium 140 mmol/L (136-145) 08/18/19 06:30 Potassium 4.6 mmol/L (3.5-5.1) 08/18/19 06:30 Chloride 106 mmol/L (98-107) 08/18/19 06:30 Carbon Dioxide 23.8 mmol/L (21.0-32.0) 08/18/19 06:30 Anion Gap 10.2 mmol/L (3-11) 08/18/19 06:30 BUN 21 mg/dL (7-18) H 08/18/19 06:30 Creatinine 1.35 mg/dL (0.70-1.30) H 08/18/19 06:30 Estimated GFR/1.73 m2 51.81 (mL/min/1.73m2) 08/18/19 06:30 Glucose 97 mg/dL (70-100) 08/18/19 06:30 Calcium 9.2 mg/dL (8.5-10.1) 08/18/19 06:30 Magnesium 1.6 mg/dL (1.8-2.4) L 08/17/19 06:44 Iron 11 ug/dL (50-175) L 08/14/19 06:40 TIBC 433 ug/dL (250-450) 08/14/19 06:40 Transferrin % Sat 3 % (20-55) L 08/14/19 06:40 Ferritin 20 ng/mL (8-388) 08/14/19 06:40 Total Bilirubin 0.6 mg/dL (0.2-1.0) 08/12/19 08:29 AST 19 U/L (15-37) 08/12/19 08:29 ALT 15 U/L (16-63) L 08/12/19 08:29 Alkaline Phosphatase 77 U/L (46-116) 08/12/19 08:29 Troponin I < 0.05 ng/mL (0.00-0.06) 08/12/19 19:25 Total Protein 7.2 g/dL (6.4-8.2) 08/12/19 08:29 Albumin 3.3 g/dL (3.4-5.0) L 08/12/19 08:29 Vitamin B12 291 pg/mL (193-986) 08/14/19 06:40 Folate 7.7 ng/mL (8.6-20.0) L 08/14/19 06:40 TSH 2.49 uIU/mL (0.36-3.74) 08/14/19 06:40 Urine Color Yellow (Yellow) 08/12/19 12:45 Urine Clarity Sl cloudy (Clear) 08/12/19 12:45 Urine pH 7.0 (5-8) 08/12/19 12:45 Ur Specific [place] 1.015 (1.005-1.025) 08/12/19 12:45 Urine Protein Negative mg/dL (Negative) 08/12/19 12:45 Urine Ketones Negative mg/dL (Negative) 08/12/19 12:45 Urine Blood Trace-intact (Negative) H 08/12/19 12:45 Urine Nitrite Negative (Negative) 08/12/19 12:45 Urine Bilirubin Negative (Negative) 08/12/19 12:45 Urine Urobilinogen 1.0 EU/dL (Up TO 0.2) H 08/12/19 12:45 Ur Leukocyte Esterase Moderate (Negative) H 08/12/19 12:45 Urine RBC 5-10 HPF (0-2) H 08/12/19 12:45 Urine WBC 20-50 HPF (0-5) H 08/12/19 12:45 Ur Epithelial Cells Few HPF (Negative) 08/12/19 12:45 Urine Crystals Negative HPF (Negative) 08/12/19 12:45 Urine Bacteria Few HPF (Negative) 08/12/19 12:45 Urine Casts Negative LPF (Negative) 08/12/19 12:45 Urine Mucus Negative (Negative) 08/12/19 12:45 Ur Culture Indicated? Yes 08/12/19 12:45 Urine Glucose Negative mg/dL (Negative) 08/12/19 12:45 Urine Opiates Screen Negative (Negative) 08/12/19 12:45 Urine Methadone Screen Negative (Negative) 08/12/19 12:45 Ur Barbiturates Screen Negative (Negative) 08/12/19 12:45 Ur Tricyclics Screen Negative (Negative) 08/12/19 12:45 Ur Amphetamines Screen Negative (Negative) 08/12/19 12:45 U Benzodiazepines Scrn Negative (Negative) 08/12/19 12:45 Urine Cocaine Screen Negative (Negative) 08/12/19 12:45 Ur THC Screen Negative (Negative) 08/12/19 12:45 Ethyl Alcohol 3.6 mg/dL (<3) 08/12/19 08:29 Path Cons Comment 08/13/19 06:25 Patient ABO/Rh O Positive 08/15/19 11:34 Antibody Screen Negative 08/15/19 11:34 Crossmatch See Detail 08/15/19 11:34
--- NOTE | 2019-08-18 15:10 | PT.INTREAT ---
Date of service: 08/18/19 Time of Service: 10:10 PT Notes Inpatient Physical Therapy Treatment Note [facility] Date: 08/18/2019 PRECAUTIONS: Fall. [place]. Activity as tolerated. SUBJECTIVE: Patient continues to complain about his R hip pain but reports that he now is getting a new pill to relax his muscles which he is very much looking forward to work. He mentioned something about his possble transfer to a ID-contracted facility for rehabilitation. He is agreeable to a PT session both in the morning and in the afternoon. OBJECTIVE: Patient seen resting in his chair in the morning and lying in bed in the afternoon. PAIN: 3/10 in the morning, 7-8/10 in the afternoon on the right hip BED MOBILITY/TRANSFERS Rolling L/R: Independent Supine-sit: Independen Sit-supine: Independent Sit-stand: SBA Stand-sit: SBA Bed-Chair: SBA Chair-bed: SBA GAIT Assistive Device: FWW Weight bearing: FWB Assist: SBA Distance: 120 feet +15 feet 15 feet in the a.m.;3 feet times 6 in the afternoon Deviation: Complained of right hip pain and cramping during ambulation activity resulting in gait velocity and mild antalgia but no LP noted in the afternoon patient was not able to. Perform any long distance ambulation due to pain level in the right hip. ASSESSMENT: Patient continues to be limited with varying pain levels in the right hip but with you prescription of muscle relaxant patient have better control of his pain and more consistent participation with mobility ADL performance. He will continue to benefit from intermediate facility placement in order to regain premorbid independent level using a straight cane. PLAN: Continue with PT POC as initially established. TREATMENT CODE/TIME: Session 1-9 7530 times 25 minutes beginning at 10 a.m. Session 2- 55214 x 25 minutes beginning at 15:10 PM.
[2019-08-18 16:08] VITALS: BP 135/77; PULSE 104; RESP 18; TEMP 37; O2SAT 97
--- NOTE | 2019-08-18 16:32 | CHAPLAIN ---
Khoi wasn't complaining of right thigh pain today, as he was yesterday. He said he'd been up walking some. He hasn't had a cigarette in four days, and although he said he'd love to smoke one now, he said he is not having any physical cravings, but misses smoking for relaxing. 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 He asked me to find his checkbook in his bag of clothes. His brother is coming to visit tomorrow, and Khoi said his brother will help him pay some bills and bring him some clothes from his apartment. Khoi said he hasn't yet told his children he is here.
[2019-08-18 20:48] VITALS: BP 114/54; PULSE 74; RESP 16; TEMP 36.5; O2SAT 94
[2019-08-18] MEDS: Gabapentin 100 MG CAP 200 MG PO (20:48)
[2019-08-18] MEDS: Melatonin 3 MG TAB 6 MG PO (21:03)
[2019-08-19 03:19] VITALS: BP 112/61; PULSE 72; RESP 17; TEMP 36.8; O2SAT 95
[2019-08-19 07:25] VITALS: BP 121/68; PULSE 77; RESP 18; TEMP 36.2; O2SAT 96
[2019-08-19] MEDS: Acetaminophen 325 MG TAB 650 MG PO (07:33)
[2019-08-19] MEDS: Cyclobenzaprine 10 MG TAB PO ×3 (07:33→19:32)
[2019-08-19] MEDS: Sucralfate 1 GM TAB PO ×4 (07:33→22:02)
[2019-08-19] MEDS: Pantoprazole 40 MG TABCR PO ×2 (07:33→19:31)
[2019-08-19 07:49] LABS: HCT 31.9 % (40.0-50.0); HGB 9.5 g/dL (13.5-17.5); Mean Corp. HGB Concentration 29.8 g/dL (32.0-36.0); Mean Corpuscular Hemoglobin 21.5 pg (27.0-33.0); Mean Corpuscular Volume 72.3 fL (80-95); Mean Platelet Volume 9.6 fL (8.0-11.0); Platelet Count 375 x1000/uL (130-400); RBC 4.41 m/cumm (4.50-6.00); RBC Distribution Width 22.9 % (11.8-14.1); White Blood Cell Count 4.56 k/cumm (4.4-10.8)
[2019-08-19 07:53] LABS: Anion Gap 10.5 mmol/L (3-11); BUN 34 mg/dL (7-18); CO2 22.5 mmol/L (21.0-32.0); CREATININE 1.49 mg/dL (0.70-1.30); Chloride 106 mmol/L (98-107); Estimated GFR 46.23 (mL/min/1.73m2); Glucose 111 mg/dL (74-106); Potassium 4.6 mmol/L (3.5-5.1); Sodium 139 mmol/L (136-145)
[2019-08-19] MEDS: Budesonide/Formoterol 160/4.5 6 GM 60 PUFF INH IH ×2 (08:13→19:32)
[2019-08-19] MEDS: Ferrous Sulfate 325 MG TAB PO ×2 (09:06→22:02)
[2019-08-19] MEDS: Magnesium Chloride 64 MG TABCR 128 MG PO ×2 (09:06→19:31)
[2019-08-19] MEDS: Docusate Sodium 100 MG CAP PO ×2 (09:06→19:31)
[2019-08-19] MEDS: Tamsulosin 0.4 MG CAPCR PO (09:06)
[2019-08-19] MEDS: Folic Acid 1 MG TAB PO (09:06)
[2019-08-19] MEDS: Thiamine 100 MG TAB PO (09:07)
[2019-08-19] MEDS: Gabapentin 100 MG CAP 200 MG PO ×3 (09:07→19:32)
[2019-08-19] MEDS: Cyanocobalamin 500 MCG TAB 1000 MCG PO (09:07)
[2019-08-19] MEDS: dilTIAZem 30 MG TAB PO ×3 (09:07→19:32)
[2019-08-19] MEDS: Multivitamin TAB 1 TAB PO (09:07)
[2019-08-19] MEDS: Ascorbic Acid 500 MG TAB PO ×2 (09:07→19:31)
[2019-08-19 11:33] VITALS: BP 126/69; PULSE 73; RESP 17; TEMP 36.1; O2SAT 94
[2019-08-19] MEDS: DULoxetine 30 MG CAP PO (12:17)
--- NOTE | 2019-08-19 12:17 | PTTR_ITS ---
Date of service: 08/18/19 Time of Service: 10:10
--- NOTE | 2019-08-19 12:17 | PT.INTREAT ---
Date of service: 08/18/19 Time of Service: 10:10
--- NOTE | 2019-08-19 13:18 | W.PM.PROGNOT ---
Date of Service Date of service: 08/19/19 Time of Service: 13:18 Assessment and Plan Assessment and plan (1) UTI (urinary tract infection): Status: Acute Assessment and plan: Resolved. Urine culture was mixed. This was in the setting of urinary retention. He had a Cornejo catheter initially, the catheter has been removed. He is voiding well. He received Levaquin x5 days. No longer on antibiotics. He has been refusing bladder scans. Continue straight catheterizations as needed for urinary retention. Continue Flomax. (2) SAUL (acute kidney injury): Status: Acute Assessment and plan: Creatinine at baseline today at 1.49 (baseline 1.3-1.6). Continue to avoid nephrotoxic medications, renal dosing on medications. Continue to monitor for urinary retention. (3) Insomnia: Status: Acute Assessment and plan: Sleeping well with the increase melatonin dose. Continue melatonin 6 mg at at bedtime. (4) Atrial fibrillation: Status: Chronic Assessment and plan: New atrial fibrillation, paroxysmal, rate controlled. His troponins were negative x3. His echo showed LVEF of 50%. He is no longer on telemetry. Continue low-dose Cardizem with hold parameters. Hold off on anticoagulation in the setting of recurrent heme positive stools and ongoing alcohol abuse. (5) Alcohol withdrawal: Status: Acute Assessment and plan: Does not appear to be experiencing withdrawal from alcohol. No longer on CIWA. Continue to encourage abstinence from alcohol. (6) COPD (chronic obstructive pulmonary disease): Status: Chronic Assessment and plan: Does not appear to be in acute exacerbation. Continues to decline nicotine replacement. Reports he quit smoking when he was admitted to the hospital. Continue to encourage smoking cessation. (7) GI bleed: Status: Chronic Assessment and plan: Stable. No longer having heme positive stools. He did receive 1 unit of packed red blood cells during this hospitalization, hemoglobin decreased slightly today to 9.5, remains stable. He had a recent EGD (04/2019) was negative for varices or acute source of bleeding. Continue PPI and Carafate. Continue to monitor hemoglobin and hematocrit. (8) Radicular pain of right lower extremity: Status: Acute Assessment and plan: Improving. He has been initiated on gabapentin and Flexeril. He continues to report pain and muscle spasm in the right lower extremity, increases with activity. Avoid NSAIDs in the setting of recurrent GI bleeding and chronic kidney disease. Continue gabapentin at increased dose, 200 mg 3 times daily. Schedule Flexeril and acetaminophen. Heat or ice for comfort. Continue physical therapy. (9) Depression: Status: Chronic Assessment and plan: Endorses and a depressed mood, with a history of depression. Trial Cymbalta as this may also help with his neuropathic pain. (10) DVT prophylaxis: Status: Acute Assessment and plan: Hold chemical DVT prophylaxis due to heme positive stools. Teds and SCDs for mechanical DVT prophylaxis. (11) Discharge planning issues: Status: Acute Assessment and plan: He is a full code. He would benefit from rehab at a intermediate facility prior to returning home. Continue PT. Care management is working on getting him connected with the ID. This case was discussed with Dr. Arnold who is in agreement. Subjective Subjective Interval history since last seen: Mr. Calero reports improved pain control with the increase gabapentin dose as well as with the Flexeril and Tylenol. Nursing has requested that the Flexeril and Tylenol are scheduled. He was able to ambulate with physical therapy. He reports sleeping well with the increase melatonin dose. He is eating and drinking and tolerating his diet. He denies abdominal pain, nausea, vomiting, diarrhea. He feels that he is emptying his bladder adequately, he denies dysuria or hematuria. No shortness of breath, coughing, wheezing, chest pain/pressure, palpitations. He is not having any nicotine cravings, he is declining nicotine replacement. He continues to verbalize a depressed mood. He is looking forward to his brother visiting him at the hospital today. Exam Narrative Exam Narrative: General: Elderly man, resting with eyes closed on the left side, awakens easily, alert and oriented x3. Answers questions appropriately. In no acute distress. HEENT: Atraumatic, pupils equal and round, extraocular movements intact, mucous membranes moist. Cardiovascular: Heart has irregularly irregular rhythm, non-tachycardic, no murmur appreciated. Respiratory: Respirations appear even and unlabored, lungs are clear bilaterally. GI: Normoactive bowel sounds x4 quadrants, abdomen soft, nontender on palpation, nondistended. Extremities: No clubbing, cyanosis or edema. Objective Objective Clinical Data: Abnormal lab results 08/19/19 08/19/19 Range/Units 06:42 06:42 RBC 4.41 L (4.50-6.00) m/cumm Hgb 9.5 L (13.5-17.5) g/dL Hct 31.9 L (40.0-50.0) % MCV 72.3 L (80-95) fL MCH 21.5 L (27.0-33.0) pg MCHC 29.8 L (32.0-36.0) g/dL RDW 22.9 H (11.8-14.1) % BUN 34 H D (7-18) mg/dL Creatinine 1.49 H (0.70-1.30) mg/dL Glucose 111 H (74-106) mg/dL Vital Signs Temperature 36.2 C L 08/19/19 07:25 Temperature Source Tympanic 08/19/19 07:25 Pulse 77 08/19/19 07:25 Pulse Rhythm Regular 08/19/19 02:50 Respiratory Rate 18 08/19/19 07:25 Respiratory Effort 08/19/19 02:50 Respiratory Depth Normal 08/19/19 02:50 Respiratory Pattern Normal 08/19/19 02:50 Blood Pressure 121/68 08/19/19 07:25 Blood Pressure Position Supine 08/12/19 07:56 Pulse Oximetry 96 08/19/19 07:25 Oxygen Delivery Method Room Air 08/19/19 07:25 Oxygen Flow Rate 0 08/19/19 07:25 Pain Level 0 08/19/19 07:25 Comment 08/17/19 09:58 Intake & Output 08/18/19 08/19/19 08/19/19 23:59 11:59 23:59 Intake Total 480 / 720 Output Total 100 / 650 275 / 275 Balance 380 / 70 -275 / -275 Intake: Oral 480 / 720 Output: Urine 100 / 650 275 / 275 Other: Urine Color Yellow Yellow Urine Appearance Clear Clear Comment Patient refuses to be bladder scanned at this time. Patient states he goes every now and then and that he does not feel pressure in his bladder like he had before. Stool Size Large Stool Characteristics Soft Brown Green Voiding Methods Urinal Urinal Laboratory Results WBC 4.56 k/cumm (4.4-10.8) 08/19/19 06:42 RBC 4.41 m/cumm (4.50-6.00) L 08/19/19 06:42 Hgb 9.5 g/dL (13.5-17.5) L 08/19/19 06:42 Hct 31.9 % (40.0-50.0) L 08/19/19 06:42 MCV 72.3 fL (80-95) L 08/19/19 06:42 MCH 21.5 pg (27.0-33.0) L 08/19/19 06:42 MCHC 29.8 g/dL (32.0-36.0) L 08/19/19 06:42 RDW 22.9 % (11.8-14.1) H 08/19/19 06:42 Plt Count 375 x1000/uL (130-400) 08/19/19 06:42 MPV 9.6 fL (8.0-11.0) 08/19/19 06:42 Immature Gran % 0.9 08/18/19 06:30 Neutrophils % 53.7 08/18/19 06:30 Lymphocytes % 23.8 08/18/19 06:30 Monocytes % 16.6 08/18/19 06:30 Eosinophils % 4.1 08/18/19 06:30 Basophils % 0.9 08/18/19 06:30 Absolute Neutrophils 2.91 k/cumm (1.2-6.7) 08/18/19 06:30 Absolute Lymphocytes 1.29 k/cumm (1.2-3.4) 08/18/19 06:30 Absolute Monocytes 0.90 k/cumm (0.11-0.7) H 08/18/19 06:30 Absolute Eosinophils 0.22 k/cumm (0.0-0.7) 08/18/19 06:30 Absolute Basophils 0.05 k/cumm (0.0-0.2) 08/18/19 06:30 Differential Comment Rbc morph reviewed 08/18/19 06:30 RBC Morphology See below 08/18/19 06:30 Polychromasia Present 08/13/19 06:25 Hypochromasia 3+ 08/18/19 06:30 Poikilocytosis 2+ 08/18/19 06:30 Anisocytosis 3+ 08/18/19 06:30 Microcytosis 3+ 08/18/19 06:30 Macrocytosis 1+ 08/14/19 06:40 Tear Drop Cells 2+ 08/14/19 06:40 Ovalocytes 2+ 08/12/19 08:29 Schistocytes 1+ 08/14/19 06:40 Sodium 139 mmol/L (136-145) 08/19/19 06:42 Potassium 4.6 mmol/L (3.5-5.1) 08/19/19 06:42 Chloride 106 mmol/L (98-107) 08/19/19 06:42 Carbon Dioxide 22.5 mmol/L (21.0-32.0) 08/19/19 06:42 Anion Gap 10.5 mmol/L (3-11) 08/19/19 06:42 BUN 34 mg/dL (7-18) H D 08/19/19 06:42 Creatinine 1.49 mg/dL (0.70-1.30) H 08/19/19 06:42 Estimated GFR/1.73 m2 46.23 (mL/min/1.73m2) 08/19/19 06:42 Glucose 111 mg/dL (74-106) H 08/19/19 06:42 Calcium 9.0 mg/dL (8.5-10.1) 08/19/19 06:42 Magnesium 1.6 mg/dL (1.8-2.4) L 08/17/19 06:44 Iron 11 ug/dL (50-175) L 08/14/19 06:40 TIBC 433 ug/dL (250-450) 08/14/19 06:40 Transferrin % Sat 3 % (20-55) L 08/14/19 06:40 Ferritin 20 ng/mL (8-388) 08/14/19 06:40 Total Bilirubin 0.6 mg/dL (0.2-1.0) 08/12/19 08:29 AST 19 U/L (15-37) 08/12/19 08:29 ALT 15 U/L (16-63) L 08/12/19 08:29 Alkaline Phosphatase 77 U/L (46-116) 08/12/19 08:29 Troponin I < 0.05 ng/mL (0.00-0.06) 08/12/19 19:25 Total Protein 7.2 g/dL (6.4-8.2) 08/12/19 08:29 Albumin 3.3 g/dL (3.4-5.0) L 08/12/19 08:29 Vitamin B12 291 pg/mL (193-986) 08/14/19 06:40 Folate 7.7 ng/mL (8.6-20.0) L 08/14/19 06:40 TSH 2.49 uIU/mL (0.36-3.74) 08/14/19 06:40 Urine Color Yellow (Yellow) 08/12/19 12:45 Urine Clarity Sl cloudy (Clear) 08/12/19 12:45 Urine pH 7.0 (5-8) 08/12/19 12:45 Ur Specific [place] 1.015 (1.005-1.025) 08/12/19 12:45 Urine Protein Negative mg/dL (Negative) 08/12/19 12:45 Urine Ketones Negative mg/dL (Negative) 08/12/19 12:45 Urine Blood Trace-intact (Negative) H 08/12/19 12:45 Urine Nitrite Negative (Negative) 08/12/19 12:45 Urine Bilirubin Negative (Negative) 08/12/19 12:45 Urine Urobilinogen 1.0 EU/dL (Up TO 0.2) H 08/12/19 12:45 Ur Leukocyte Esterase Moderate (Negative) H 08/12/19 12:45 Urine RBC 5-10 HPF (0-2) H 08/12/19 12:45 Urine WBC 20-50 HPF (0-5) H 08/12/19 12:45 Ur Epithelial Cells Few HPF (Negative) 08/12/19 12:45 Urine Crystals Negative HPF (Negative) 08/12/19 12:45 Urine Bacteria Few HPF (Negative) 08/12/19 12:45 Urine Casts Negative LPF (Negative) 08/12/19 12:45 Urine Mucus Negative (Negative) 08/12/19 12:45 Ur Culture Indicated? Yes 08/12/19 12:45 Urine Glucose Negative mg/dL (Negative) 08/12/19 12:45 Urine Opiates Screen Negative (Negative) 08/12/19 12:45 Urine Methadone Screen Negative (Negative) 08/12/19 12:45 Ur Barbiturates Screen Negative (Negative) 08/12/19 12:45 Ur Tricyclics Screen Negative (Negative) 08/12/19 12:45 Ur Amphetamines Screen Negative (Negative) 08/12/19 12:45 U Benzodiazepines Scrn Negative (Negative) 08/12/19 12:45 Urine Cocaine Screen Negative (Negative) 08/12/19 12:45 Ur THC Screen Negative (Negative) 08/12/19 12:45 Ethyl Alcohol 3.6 mg/dL (<3) 08/12/19 08:29 Path Cons Comment 08/13/19 06:25 Patient ABO/Rh O Positive 08/15/19 11:34 Antibody Screen Negative 08/15/19 11:34 Crossmatch See Detail 08/15/19 11:34
[2019-08-19] MEDS: Acetaminophen 500 MG TAB 1000 MG PO ×2 (13:28→22:02)
--- NOTE | 2019-08-19 15:21 | PT.INTREAT ---
Date of service: 08/19/19 Time of Service: 09:33 PT Notes Physical Therapy Inpatient Initial Evaluation Date: 08/19/2019 PRECAUTIONS: Fall. Standard. Activity as tolerated. SUBJECTIVE: Patient continues to report improving response of R hip to new muscle relaxant. Brother Owen was present throughout session. OBJECTIVE: Patient seen resting in bed in the in the morning and the afternoon. PAIN: 3/10 on the right hip in the morning and the afternoon BED MOBILITY/TRANSFERS Rolling L/R: independent Supine-sit: independen Sit-supine: independent Sit-stand: supervision Stand-sit: supervision Bed-Chair: supervision Chair-bed: supervision GAIT Assistive Device: FWW Weight bearing: FWB Assist: SBA Distance: 120 feet +15 feet 15 feet in the morning and afternoon Deviation: Increasing gait velocity with decreased pain THERA EX: Patient tolerated seated level balance exercises consisting of LAQs done slowly, heel-toe raises, and seated marches x 10 reps in the morning. he refused exercises in the afternoon stating he was tired. ASSESSMENT: Patient is beginning to demonstrate improving mobility independence and better pain control with new muscle relaxant. He responds well to planning physical therapy activities in advance and appreciates continuos feedback about how he is doing. He likes to take the lead during therapy sessions and reacts well when options are provided. He will continue to benefit from skilled physical therapy services to achieve independent mobility level with the least restrictive device. PLAN: Continue with PT POC as initially established. TREATMENT CODE/TIME: Session [id number] x 20 minutes, [id number] x 13 minutes beginning at 9:33 a.m. Session 2- [id number] x 25 minutes beginning at 15:20 PM.
[2019-08-19 15:54] VITALS: BP 120/78; PULSE 92; RESP 17; TEMP 36.6; O2SAT 97
--- NOTE | 2019-08-19 17:30 | CMPROGNOTE_ITS ---
Care Management Progress Note S/O: Khoi enjoyed visiting with his brother today. Anticipate he will enter [facility] to ensure rehab and wrap around discharge plan is in place upon discharge. [facility] increased services in [facility] setting. CM continues to follow. A: Khoi is a 74 year old male admitted to [facility] 08/13/19 with SAUL, UTI, failure to thrive. P: Khoi will continue to be closely monitored at this time. CM continues to follow and support patient and discharge planning needs. Anticipate Khoi will enter [facility] for continued rehabilitation.
[2019-08-19] MEDS: Melatonin 3 MG TAB 6 MG PO (22:02)
[2019-08-20] MEDS: Acetaminophen 500 MG TAB 1000 MG PO ×2 (06:04→14:21)
[2019-08-20 07:00] LABS: HCT 30.4 % (40.0-50.0); HGB 9.1 g/dL (13.5-17.5); Mean Corp. HGB Concentration 29.9 g/dL (32.0-36.0); Mean Corpuscular Hemoglobin 21.7 pg (27.0-33.0); Mean Corpuscular Volume 72.6 fL (80-95); Mean Platelet Volume 9.3 fL (8.0-11.0); Platelet Count 374 x1000/uL (130-400); RBC Distribution Width 23.2 % (11.8-14.1); White Blood Cell Count 4.48 k/cumm (4.4-10.8)
[2019-08-20 07:20] LABS: Anion Gap 10.3 mmol/L (3-11); BUN 40 mg/dL (7-18); CO2 21.7 mmol/L (21.0-32.0); CREATININE 1.37 mg/dL (0.70-1.30); Calcium 8.8 mg/dL (8.5-10.1); Chloride 105 mmol/L (98-107); Estimated GFR 50.93 (mL/min/1.73m2); Glucose 102 mg/dL (74-106); Magnesium 1.6 mg/dL (1.8-2.4); Potassium 4.4 mmol/L (3.5-5.1); Sodium 137 mmol/L (136-145)
[2019-08-20] MEDS: Budesonide/Formoterol 160/4.5 6 GM 60 PUFF INH IH (07:34)
[2019-08-20 07:40] VITALS: BP 147/75; PULSE 72; RESP 20; TEMP 36.7; O2SAT 96
[2019-08-20 08:19] LABS: RBC 4.19 m/cumm (4.50-6.00)
[2019-08-20] MEDS: Magnesium Chloride 64 MG TABCR 128 MG PO (08:22)
[2019-08-20] MEDS: Sucralfate 1 GM TAB PO ×2 (08:22→11:54)
[2019-08-20] MEDS: Multivitamin TAB 1 TAB PO (08:23)
[2019-08-20] MEDS: DULoxetine 30 MG CAP PO (08:23)
[2019-08-20] MEDS: dilTIAZem 30 MG TAB PO ×2 (08:23→14:21)
[2019-08-20] MEDS: Gabapentin 100 MG CAP 200 MG PO ×2 (08:23→14:20)
[2019-08-20] MEDS: Cyclobenzaprine 10 MG TAB PO ×2 (08:23→14:21)
[2019-08-20] MEDS: Cyanocobalamin 500 MCG TAB 1000 MCG PO (08:24)
[2019-08-20] MEDS: Docusate Sodium 100 MG CAP PO (08:24)
[2019-08-20] MEDS: Ascorbic Acid 500 MG TAB PO (08:24)
[2019-08-20] MEDS: Pantoprazole 40 MG TABCR PO (08:24)
[2019-08-20] MEDS: Thiamine 100 MG TAB PO (08:24)
[2019-08-20] MEDS: Tamsulosin 0.4 MG CAPCR PO (08:24)
[2019-08-20] MEDS: Ferrous Sulfate 325 MG TAB PO (09:36)
--- NOTE | 2019-08-20 11:33 | PT.INTREAT ---
Date of service: 08/20/19 Time of Service: 11:32 PT Notes Physical Therapy Inpatient Initial Evaluation Date: 08/20/2019 PRECAUTIONS: Fall. Standard. Activity as tolerated. SUBJECTIVE: Patient is happy about how he is walking much faster now with his walker compared to previous days without significant discomfort on his R hip. He is looking forward to continuing skilled PT services to achieve his mobility goal of becoming independent with a single point cane. Patient further reports that he is amenable to walking to and from gym and to trying the practice steps this afternoon. OBJECTIVE: Patient seen sitting at edge of bed for the morning session. No new signs observed. PAIN: /10 on the right hip in the morning and the afternoon BED MOBILITY/TRANSFERS Rolling L/R: independent Supine-sit: independent Sit-supine: independent Sit-stand: supervision Stand-sit: supervision Bed-Chair: supervision Chair-bed: supervision GAIT Assistive Device: FWW Weight bearing: FWB Assist: SBA Distance: 120 feet +15 feet 15 feet Deviation: Increasing gait velocity with decreased pain THERA EX: Patient refused exercises stating that he may have stood long while at therapy gym contemplating on whether he can do the practice steps. ASSESSMENT: Patient is continuing to demonstrate improving mobility independence and better pain control with new muscle relaxant. He is agreeable to converting to swing bed level 1 for continued physical therapy skilling. He responds well to planning physical therapy activities in advance and appreciates continuos feedback about how he is doing. He likes to take the lead during therapy sessions and reacts well when options are provided. He will continue to benefit from skilled physical therapy services to achieve independent mobility level with the least restrictive device. PLAN: Continue with PT POC as initially established. TREATMENT CODE/TIME: 53429 x 15 minutes beginning at 11:32 a.m.
--- NOTE | 2019-08-20 14:05 | DSE_ITS ---
Date of service: 08/20/19 Time of Service: 14:05 DS: Diagnosis Discharge Diagnosis (1) UTI (urinary tract infection): Status: Acute (2) SAUL (acute kidney injury): Status: Acute (3) Insomnia: Status: Acute (4) Atrial fibrillation: Status: Chronic (5) Alcohol withdrawal: Status: Acute (6) COPD (chronic obstructive pulmonary disease): Status: Chronic (7) GI bleed: Status: Chronic (8) Radicular pain of right lower extremity: Status: Acute (9) Depression: Status: Chronic (10) DVT prophylaxis: Status: Acute (11) Discharge planning issues: Status: Acute Discharge Plan Disposition Patient Disposition: [facility] SWING BED LEVEL 1 Condition: Stable Discharge Details Chief Complaint: Orthopedic Clinical Impression: COPD (chronic obstructive pulmonary disease), Hypomagnesemia, Acute dehydration Reason For Visit: FAILURE TO THRIVE, POOR SELF-CARE, SAUL, UTI Admit Date/Time: 08/12/19 11:59 Admit Provider: Ham Leggett Attending Provider: Ham Leggett Primary Care Provider: Antonio Flood ED Provider: Khadar Richards Hospital Course Hospital Course: Khoi Calero is a 74 year old man with a past medical history significant for alcohol abuse, COPD, current smoker, and depression who was recently discharged from [facility] and rehab who presented to the ED on 08/12/19 with reports of about a one month history of progressive decline, poor self-care, RLE pain and diarrhea. He reported having difficulty getting groceries and meals at home and had not been taking his medication since he had been [facility] (approximately 2 months prior to his presentation). At the time of his admission, he also reported right lower extremity pain from his knee to his hip, He had a right hip x-ray that was negative for fracture. He also had a lumbar spine x-ray which was negative for an acute process. His labs revealed severe hypomagnesemia as low as 0.7, hypokalemia of 3.2, acute kidney injury with creatinine of 1.64 and stable chronic anemia. His urinalysis was suspicious for infection and he was started on IV levaquin. He was admitted to the med/surg floor for further observation and evaluation. After his admission, he was noted to be tachycardic, he was on telemetry, he appeared to be in atrial fibrillation. An EKG confirmed A. fib. He denied any history of atrial fibrillation. He was initiated on low-dose Cardizem for heart rate control. His troponins were trended and found to be negative x3. His echo showed LVEF of 50%. He was not started on anticoagulation as he had a recent hospitalization for GI bleeding. His heart rate was well controlled with the Cardizem. In regard to the urinary tract infection, he remained on Levaquin for a total of 5 days. Unfortunately his urine culture was mixed gram-positive and gram- negative organisms. He was found to have urinary retention, and a Cornejo cath eter was placed. His Flomax was resumed. He eventually the Cornejo was discontinued and he was able to void on his own. He was not having any symptoms of urinary retention, although he refused bladder scans. His acute kidney injury resolved, his creatinine returned to his baseline. He was noted to have a dropping hemoglobin during this hospitalization. His hemoglobin dropped down to 7.2 with heme positive stools. He received a blood transfusion, 1 unit of packed red blood cells. He was placed back on PPI and Carafate. His subcutaneous heparin (for DVT prophylaxis) was discontinued. He was no longer having heme positive stools and his hemoglobin and hematocrit remained stable. He will remain on PPI and Carafate. For his right lower extremity pain, he was initiated on gabapentin and Flexeril as he was having ongoing muscle spasms in the right thigh. Gabapentin dose was increased to 200 mg 3 times daily, the Flexeril and acetaminophen were scheduled. He reported improvement in his pain. He was able to work with physical therapy. He was also noted to be experiencing depression. He was initiated on Cymbalta to help with both the depression and the right lower extremity pain. He was not sleeping well, he was started on melatonin 6 mg at at bedtime, scheduled and was able to get better sleep. In regard to his alcohol abuse, he was monitored on the [facility] protocol. He did not appear to have significant withdrawal. He reported that his last alcoholic beverage was approximately 25 days prior to his admission. He was not felt to be safe to return home alone, care management worked with getting him connected with the [place]. His acute issues seem to be resolved, at this time he will transition to swing bed status and continue to work with physical therapy prior to returning home. Home Meds and New Rx's Prescriptions: No Action multivitamin [Multiple Vitamins] Tablet 1 tab PO DAILY Qty: 30 RF: 0 Nicotrol 10 mg Cartridge 30 cartridge inhalation DIRECTED PRNQty: 10 RF: 0 tamsulosin 0.4 mg Capsule 0.4 mg PO DAILY Qty: 30 RF: 0 alum-mag hydroxide-simeth [Mag-Al Plus] 200-200-20 mg/5 mL Suspension 30 ml PO Q2H PRN PRNQty: 120 RF: 0 Symbicort 160-4.5 mcg/actuation Hfa Aerosol Inhaler 2 puff inhalation BID Qty: 1 RF: 0 thiamine mononitrate (vit B1) [Vitamin B-1 (mononitrate)] 100 mg Tablet 100 mg PO DAILY Qty: 30 RF: 0 pantoprazole 40 mg Tablet,Delayed Release (Dr/Ec) 40 mg PO BID@0730,2000 Qty: 0 RF: 0 cyanocobalamin (vitamin B-12) [Vitamin B-12] 500 mcg Tablet 1,000 mcg PO DAILY Qty: 0 RF: 0 melatonin 3 mg Tablet Extended Release 3 mg PO HS PRN PRN (Reason: Insomnia) Qty: 0 RF: 0 magnesium chloride [Mag 64] 64 mg Tablet,Delayed Release (Dr/Ec) 128 mg PO BID Qty: 0 RF: 0 bisacodyl [Dulcolax (bisacodyl)] 10 mg Suppository 10 mg AR RF: 0 Discharge Instructions Stand Alone Forms: Nursing Discharge Form Referrals: Antonio Flood [Primary Care Provider] - Activity:: Activity as Tolerated Equipment/Supplies:: No Equipment Needed Diet:: As Tolerated Discharge Orders Discharge Orders: Discharge Order (Routine); Ordered 08/20/19 Ordered By: Sheridan Ndiaye DS: Summary Status at Discharge Functional status at discharge: uses cane/walker Overall status at discharge: patient is not back to baseline Mental Status: mental status grossly normal Speech and Movement: speech and movement normal Mood: congruent mood Affect: other (depressed) Exam Narrative Exam Narrative: General: Elderly man, sitting up in the chair, alert and oriented x3. Answers questions appropriately. In no acute distress. HEENT: Atraumatic, pupils equal and round, extraocular movements intact, mucous membranes moist. Cardiovascular: Heart sounds regular at this time, non-tachycardic, no murmur appreciated. Respiratory: Respirations appear even and unlabored, lungs are clear bilaterally. GI: Normoactive bowel sounds x4 quadrants, abdomen soft, nontender on palpation, nondistended. Extremities: No clubbing, cyanosis or edema. Psych Mental Status: mental status grossly normal Speech and Movement: speech and movement normal Mood: congruent mood Affect: other (depressed) DS: Data Vitals/I&O Vitals and I&O: Vital Signs Temperature 36.7 C 08/20/19 07:40 Temperature Source Tympanic 08/20/19 07:40 Pulse 72 08/20/19 07:40 Pulse Rhythm Irregular 08/20/19 08:30 Respiratory Rate 20 08/20/19 07:40 Respiratory Effort Non-Labored 08/20/19 08:30 Respiratory Depth Normal 08/20/19 08:30 Respiratory Pattern Normal 08/20/19 08:30 Blood Pressure 147/75 H 08/20/19 07:40 Blood Pressure Position Supine 08/12/19 07:56 Pulse Oximetry 96 08/20/19 07:40 Oxygen Delivery Method Room Air 08/20/19 07:40 Oxygen Flow Rate 0 08/20/19 07:40 Pain Level 0 08/20/19 07:40 Comment 08/17/19 09:58 Intake & Output 08/19/19 08/20/19 08/20/19 23:59 11:59 23:59 Intake Total 780 / 1020 Output Total 700 / 975 445 / 445 Balance 80 / 45 -445 / -445 Intake: Oral 780 / 1020 Output: Urine 700 / 975 445 / 445 Other: Urine Color Pale Yellow Yellow Urine Appearance Clear Clear Urine Odor None None Comment patient refused bladder scanning, he state he is just too tired to get it done Stool Size Large Stool Characteristics Formed Brown Green Voiding Methods Urinal Urinal Data Completed and Pending Completed studies during hospitalization [Text1]: 08/12/19: EXAM: XR CHEST 2V PA LATERAL INDICATION: weakness, alcoholism, HIP PAIN COMPARISON: XR CHEST 2V PA LATERAL from 04/27/2019 TECHNIQUE: 2D digital imaging was performed. FINDINGS: Heart size and pulmonary vasculature are within normal limits. The lungs are clear. The lungs are hyperinflated with flattened diaphragms consistent with COPD. No pleural effusion or pneumothorax is identified. The bones are within normal limits. IMPRESSION: No acute pulmonary process. EXAM: XR HIP RT COMPLETE AP PELVIS INDICATION: hip pain, acute on chronic. COMPARISON: XR LUMBAR SPINE COMPLETE from 08/12/2019 TECHNIQUE: 2D digital imaging was performed. FINDINGS: No acute fracture or dislocation is present. Sacroiliac joints and symphysis pubis appear intact. Vascular calcifications are present. The soft tissues are unremarkable. Mild degenerative changes are seen in the hips bilaterally. IMPRESSION: No acute abnormality. EXAM: XR LUMBAR SPINE COMPLETE INDICATION: R hip pain, frequent stools. COMPARISON: No exams were available for comparison TECHNIQUE: 2D digital imaging was performed. FINDINGS: There are 5 lumbar type vertebral bodies. No spondylolysis or spondylolisthesis is present. There is a right convex scoliotic curvature of the thoracolumbar spine. No acute fracture or subluxation is present. There is disc space narrowing at L3-4, L4-5 and L5-S1. There are osteophytes at the endplates throughout the lumbar spine. There is a vacuum disc at L5-S1. There is atherosclerosis present. IMPRESSION: No acute fracture or subluxation. Moderate degenerative changes in the lumbar spine. 08/13/19: EXAM: Comprehensive 2D, Doppler, and color-flow Echocardiogram Patient Location: In-Patient Measurement Psychologist: RACHANA Horne (AE) Rhythm: Atrial Fibrillation Tachycardia Indications: new a-fib Conclusion Left Ventricle : There is normal left ventricular wall thickness. Left ventricular systolic function is globally mildly reduced. Atrial fibrillation can interfere with regional and segmental wall motion analysis but there do not appear to be any significant abnormalities. LVEF is estimated to be 50%. LV diastolic function is indeterminate. Right Ventricle : The right ventricle is normal size. The right ventricular systolic function appears normal. Atria : The left atrium size is normal. The right atrium size is normal. Aortic Valve : Aortic valve is probably trileaflet. Aortic valve is mildly thickened but appears to have adequate excusion. There is no aortic valvular stenosis. No aortic regurgitation is present. Mitral Valve : Mitral valve leaflets are mildly thickened. No evidence of mitral valve stenosis. Trivial mitral regurgitation. Tricuspid Valve : The tricuspid valve appears normal in structure. Trace tricuspid regurgitation. IVC is normal in size and collapses >50% with inspiration. Estimated RVSP is 16-20 mmHg. Patient was in atrial fibrillation for the entirety of the procedure. There is no prior echocardiogram available for comparison. Labs on day of discharge: Labs from last 24 hours 08/20/19 08/20/19 06:35 06:35 WBC 4.48 RBC 4.19 L Hgb 9.1 L Hct 30.4 L MCV 72.6 L MCH 21.7 L MCHC 29.9 L RDW 23.2 H Plt Count 374 MPV 9.3 Sodium 137 Potassium 4.4 Chloride 105 Carbon Dioxide 21.7 Anion Gap 10.3 BUN 40 H Creatinine 1.37 H Estimated GFR/1.73 m2 50.93 Glucose 102 Calcium 8.8 Magnesium 1.6 L PFSH Medical History Alcohol use disorder (Suspected) Cooper's esophagus (Acute) COPD (chronic obstructive pulmonary disease) (Chronic) Smoking hx (Acute) Surgical History H/O esophagogastroduodenoscopy (Chronic ~04/2019) Social History Smoking/Tobacco Use Status: Current every day Tobacco Type: cigarettes Years smoked: 50 Alcohol Intake: current Alcohol Intake frequency: 3 or more drinks per day Drug use: Never Substance use type: does not use Do you feel safe at home: Yes Do you feel safe in your relationship?: Yes Additional Social history: Lives alone in apartment in [facility] for past ~6 years, closest family brother Owen in [place], [place] 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
--- NOTE | 2019-08-20 17:35 | PT.INDS ---
Date of service: 08/20/19 Time of Service: 17:35 PT Notes Inpatient Physical Therapy Discharge Summary Dates: 08/20/2019 Dates of Service: 08/14/2019 through 08/20/2019 This is a clinical summary of care provided on the duration of dates listed above. No charge was made in the completion of this documentation. Referring Doctor: Ham Leggett MD PT Orders: PT CONSULT: Limited ability Precautions: Fall. Standard. Activity as tolerated. Patient Profile/Admitting Diagnosis: Patient is converting to a swing bed level 1 as of today, 08/20/2019. He will be reevaluated at for continued physical therapy services on 08/21/2019. Patient is a 73-year-old male with a past medical history significant for alcohol abuse and COPD who presented to the ED on 08/12/2019 with chief complaints of loose watery stools, incontinence, and able to perform self-care, right hip pain and tenderness, and mild SOB. and ongoing uncontrollable daily use of alcohol and cigarettes. Patient is diagnosed with failure to thrive, generalized weakness, poor self home care, acute kidney injury, and urinary tract infection. PMHX: Medical History Alcohol use disorder (Acute) COPD (chronic obstructive pulmonary disease) (Chronic) Smoking hx (Acute) Social History/Home Situation: Patient lives alone in an apartment with 15 steps to get in with a rail on the right going up. He was independent with all aspects of ADLs without the need for an assistive ambulatory device nor adaptive equipment although he stated that recently it has been very difficult to do so due to weakness and uncontrolled alcoholism. Current Functional Limitations: Need for assistance for all transfer front wheeled walker. Equipment Owned/DME: None but will need a FWW. Subjective: NT Objective: General Observation: NT Mental Status: NT Pain: NT ROM: Right Upper Extremity: Shoulder Flexion WFL. Shoulder abduction WFL. Elbow flexion WFL. Wrist flexion WFL. Functional opening and closing of hand WFL. Left Upper Extremity: Shoulder Flexion WFL. Shoulder abduction WFL. Elbow flexion WFL. Wrist flexion WFL. Functional opening and closing of hand WFL. Right Lower Extremity: Hip flexion 0-5 degrees in supine due to pain. Hip abduction WFL. Knee flexion WFL. Ankle dorsiflexion WFL. Ankle plantarflexion WFL. Left Lower Extremity: Hip flexion WFL. Hip abduction WFL. Knee flexion WFL. Ankle dorsiflexion WFL. Ankle plantarflexion WFL. Strength: Right Upper Extremity: Shoulder flexors 4/5. Shoulder abductors 4/5. Elbow flexors 4/5. Elbow extensors 4/5. Ring Making Machine Operator strong. Left Upper Extremity: Shoulder flexors 4/5. Shoulder abductors 4/5. Elbow flexors 4/5. Elbow extensors 4/5. Ring Making Machine Operator strong. Right Lower Extremity: Hip flexors 3-/5. Hip abductors 4-/5. Knee flexors 4-/5. Knee extensors 4-/5. Ankle dorsiflexors 4-/5. Ankle plantarflexors 4-/5. Left Lower Extremity:Hip flexors 4/5. Hip abductors 4/5. Knee flexors 4/5. Knee extensors 4/5. Ankle dorsiflexors 4/5. Ankle plantarflexors 4/5. Sensation: Intact as to pain and pressure on bilateral lower extremities. Bed Mobility/Transfers: Rolling independent Supine to sit independent Sit to supine independent Sit to stand SBA Stand to sit SBA Bed to chair SBA Chair to bed SBA Gait: Patient is able to tolerate in room ambulation of 120 feet +15 feet +15 feet using a front wheeled walker with weight bearing on bilateral lower extremities and upper extremities requiring only CGA now with minimal antalgic gait on right observed. Gait speed significantly improved as well due to decreasing pain level. Balance: Static Sitting: Normal Dynamic Sitting: Normal Static Standing: Fair Dynamic Standing: Fair Assessment: Patient is a 73-year-old male with a past medical history significant for alcohol abuse and COPD who presented to the ED on 08/12/2019 with chief complaints of loose watery stools, incontinence, and able to perform self-care, right hip pain and tenderness, and mild SOB. and ongoing uncontrollable daily use of alcohol and cigarettes. Patient is diagnosed with failure to thrive, generalized weakness, poor self home care, acute kidney injury, and urinary tract infection. He finally cooperated to having a physical therapy evaluation after 2 previous failed attempts and decided to work with physical therapy in order to work on increasing his level of mobility. He works well with planning his activity with physical therapy in advance as he states he needs to mentally prepare for what he is going to need to do. Patient continues to present with clinical signs and symptoms consistent with current/admitting diagnoses that have resulted to mobility limitations, gait instability, generalized weakness, and impairment of motor control as demonstrated by the following impairment level findings: 1. Decreased strength to B LE major muscle groups 2. Impaired sitting/standing balance 3. Impaired activity tolerance 4. Limitation of joint range of motion in right hip Impairments continue to contribute to the following functional limitations: 1. Dependent bed mobility skills 2. Increased dependence with transfers 3. Inability to safely ambulate without assistive device and physical assistance 4. Increase completion time for mobility ADL performance 5. Increased fall risk 6. Inability to negotiate steps alone safely Goals: Goals X1 week 1. Supine-Sit independent MET 2. Sit-Supine independent MET 3. Sit-Stand independent NOT MET 4. Stand-Sit independent NOT MET 5. Bed-Chair independent NOT MET 6. Chair-Bed independent NOT MET 7. Independent gait on level surface with use of least restrictive device for at least 150 feet without report of pain nor dyspnea NOT MET 8. Independent stair negotiation while holding onto bilateral rails for at least 10 steps without report of pain nor dyspnea NOT MET 9. Independent with home exercise program NOT MET 10. Good static and dynamic standing balance/tolerance NOT MET DISCHARGE RECOMMENDATIONS: Patient will benefit from intermediate facility placement in order to progress mobility level, strength, and balance in preparation for a safe discharge to home. TREATMENT CODE/TIME: CHAVA Thank you very much for this referral. Franchesca Hawley PT, DPT, CLT [facility]
== END 2019-08-20 14:43 | disposition swing bed (61) | DRG 641 ==
LOC: ER 13:00 → MS 13:26
PROVIDERS: Nurse Practitioner; Nurse Practitioner Acute Care; Admitting Provider Internal Medicine; Emergency Provider Emergency Medicine; PCP Family Medicine; Visit Provider Internal Medicine
DX: R62.7 Adult failure to thrive (principal); N39.0 Urinary tract infection, site not specified; N17.9 Acute kidney failure, unspecified; K92.1 Melena; D62 Acute posthemorrhagic anemia; Z74.2 Need for assistance at home and no other household member able to render care; E83.42 Hypomagnesemia; I48.0 Paroxysmal atrial fibrillation; E87.6 Hypokalemia; M79.651 Pain in right thigh; M62.838 Other muscle spasm; M54.10 Radiculopathy, site unspecified; G47.00 Insomnia, unspecified; D51.9 Vitamin B12 deficiency anemia, unspecified; F10.10 Alcohol abuse, uncomplicated; F17.210 Nicotine dependence, cigarettes, uncomplicated; J44.9 Chronic obstructive pulmonary disease, unspecified; F32.9 Major depressive disorder, single episode, unspecified; R33.9 Retention of urine, unspecified; Z96.0 Presence of urogenital implants; Z91.14 Patient's other noncompliance with medication regimen
CPT/HCPCS: 36415; 80048; 80053; 80307; 85027; 86850; 86900; 86901; 86920; 93005; 94640; 97110; 97162; 97530; 99222; 99232; 99233; 99239; 99253; 99285; 71046; 72110; 73502; 80320; 81003; 81015; 82607; 82728; 82746; 83540; 83550; 83735; 84443; 84484; 85014; 85018; 85025; 87086; 93010; 93306; 99284; G0378; J1644; J1956; J3475; P9016

== ENCOUNTER 2019-08-20 14:41 | Inpatient (IN) | payer MEDICARE, MEDICAID, SELFPAY ==
--- NOTE | 2019-08-20 15:13 | W.PM.HP.N ---
Date of service: 08/20/19 Time of Service: 15:14 Assessment and Plan Assessment and plan (1) Atrial fibrillation: Status: Chronic Assessment and plan: Rate controlled on cardizem. LVEF 59%. No anticoagulation in the setting of recurrent GI bleeding and alcohol abuse. Continue low-dose Cardizem with hold parameters. (2) Alcohol use disorder: Status: Suspected Assessment and plan: Continue to encourage abstinence from alcohol. (3) COPD (chronic obstructive pulmonary disease): Status: Chronic Assessment and plan: Does not appear to be in acute exacerbation. Continues to decline nicotine replacement. Reports he quit smoking when he was admitted to the hospital. Continue to encourage smoking cessation. (4) Depression: Status: Chronic Assessment and plan: Endorses and a depressed mood, with a history of depression. Trial Cymbalta as this may also help with his neuropathic pain. (5) Failure to thrive: Status: Acute Assessment and plan: Continue PT/OT. (6) GI bleed: Status: Chronic Assessment and plan: Received one unit of blood during acute hospitalization. Hgb stable. No longer hemepositive stools. Monitor H&H intermittently. (7) Radicular pain of right lower extremity: Status: Acute Assessment and plan: Doing well with gabapentin, flexaril and acetaminophen. Continue PT. (8) Insomnia: Status: Acute Assessment and plan: Sleeping better with scheduled melatonin. Continue melatonin at current dose. (9) Renal insufficiency: Status: Chronic Assessment and plan: Renal function at baseline at the time of transition to swing bed status. Monitor intermittently. (10) DVT prophylaxis: Status: Acute Assessment and plan: Continue TEDs and SCDs. No chemical DVT prophylaxis in the setting of recurrent GI bleeding. (11) Discharge planning issues: Status: Acute Assessment and plan: He is a FULL code. He is transitioned to swing bed status, he will continue PT. Disposition to be determined. This case was discussed with Dr. Arnold who is in agreement. History of Present Illness History of Present Illness Chief Complaint: Failure to thrive Narrative: Mr. Calero is a 74 year old man with a past medical history significant for alcohol abuse, COPD, current smoker, depression and RLE radicular pain who was admitted to acute status on 08/12/19 with failure to thrive, poor self care and RLE pain who went on to be newly diagnosed with atrial fibrillation. He was treated for UTI with a 5 day course of levaquin and also experienced a GI bleed and was given one unit of packed red blood cells. He was started on gabapentin and flexaril with acetaminophen for RLE pain with improvement. He was also found to be depressed and started on cymbalta. He worked with PT. He was deemed unsafe for discharge home to his usual living arrangement and was not accepted to a rehab facility at the time of the resolution of his acute problems. He is now discharged from acute care and transitioned to swing bed status for ongoing physical therapy. Review of Systems Narrative: He continues to have pain in his RLE, however, the pain has improved with the medication adjustments. He is sleeping better with scheduled melatonin. He denies dizziness, shortness of breath, coughing, wheezing, chest pain/pressure, palpitations. He is eating and drinking and tolerating his diet without abdominal pain, nausea or vomiting. He continues to feel depressed. 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 Allergies Home Medications Medication Instructions Recorded Confirmed Type Nicotrol 30 cartridge INHALATION 05/01/19 05/01/19 Rx DIRECTED PRN #10 ea Symbicort 2 puff INHALATION BID #1 g 05/01/19 08/20/19 Rx alum-mag hydroxide-simeth [Mag-Al 30 ml PO Q2H PRN PRN #120 ml 05/01/19 08/20/19 Rx Plus] multivitamin [Multiple Vitamins] 1 tab PO DAILY #30 tab 05/01/19 08/20/19 Rx tamsulosin 0.4 mg PO DAILY #30 cap 05/01/19 08/20/19 Rx thiamine mononitrate (vit B1) 100 mg PO DAILY #30 tab 05/01/19 08/20/19 Rx [Vitamin B-1 (mononitrate)] cyanocobalamin (vitamin B-12) 1,000 mcg PO DAILY #0 tab 05/05/19 08/20/19 Rx [Vitamin B-12] magnesium chloride [Mag 64] 128 mg PO BID #0 tab 05/05/19 08/20/19 Rx melatonin 3 mg PO HS PRN PRN #0 tab 05/05/19 08/20/19 Rx pantoprazole 40 mg PO BID@0730,2000 #0 tab 05/05/19 08/20/19 Rx bisacodyl [Dulcolax (bisacodyl)] 10 mg KS 08/12/19 History Allergies Allergy/AdvReac Type Severity Reaction Status Date / Time bupropion AdvReac Severe seizures Verified 08/12/19 08:02 Exam Narrative Exam Narrative: General: Elderly man, sitting up in the chair, alert and oriented x3. Answers questions appropriately. In no acute distress. HEENT: Atraumatic, pupils equal and round, extraocular movements intact, mucous membranes moist. Cardiovascular: Heart sounds regular at this time, non-tachycardic, no murmur appreciated. Respiratory: Respirations appear even and unlabored, lungs are clear bilaterally. GI: Normoactive bowel sounds x4 quadrants, abdomen soft, nontender on palpation, nondistended. Extremities: No clubbing, cyanosis or edema.
[2019-08-20 15:24] VITALS: BP 143/61; PULSE 78; RESP 18; TEMP 36.6; O2SAT 98
--- NOTE | 2019-08-20 15:46 | PHARADMIT ---
Addendum entered by Babs Camarillo 08/31/19 11:09: VS okay, no labs [facility] then home no med changes Addendum entered by Dulce Roger 08/29/19 13:46: VS good, labs good D/C Saturday09/01/19 to [facility] appointment then home Addendum entered by Babs Camarillo 08/28/19 15:50: VS okay, no labs working with PT no med changes Addendum entered by Babs Camarillo 08/27/19 09:44: VS okay, no labs working with PT no med changes plan is for discharge on Saturday Addendum entered by Babs Camarillo 08/24/19 11:44: BP-138/55 other VS okay SCr-1.34 H/H-9.3/30.3 nothing new per morning report no med changes Addendum entered by Vidal Diaz III 08/21/19 16:51: Pharmacy Note VS-OK No Labs MD mentioned to watch H&H and heme test stools (positive today) CM note that patient will be a difficult placement as he has bad relationship with [facility] Original Note: overall improved per morning report BP-147/75 other VS okay mag-1.6 SCr-1.37 pt changed to swingbed status to work with PT while waiting for [facility] to [facility]? Swingbed pt. for physical therapy the following information is from the pt's account prior to swinging: Pharmacy Note Subjective per MD, Afib is rate controlled with Diltiazem Objective CIWA zero, Pain 3/10, VS ok, lytes ok, SCR 1.35 (improved) Assessment Gabapentin increased for leg/hip pain Plan Placement issue, not compliant at last facility, Hx of being a [facility] patient, but not currently connected Addendum entered by Vidal Johnson Lumeta 08/17/19 14:46: Pharmacy Note Subjective Patient has been complaining of right hip pain, Has experienced urinary retention and Flomax was started. CIWA-2 required some Lorazepam. thinks he may go off CIWA tomorrow. Objective BP-155/89 Pain:10/10 SCr-1.56 Lytes,H&H-Plts-OK, BM-today Heme negative Assessment Levaquin dc'd, Renal function has demisnished, avaoid nephrotoxic drugs. Plan Can not return to [facility] due to his demeanor has and non-cooperative nature. Placement may be an issue. Original Note: Admission Pharmacy Clinical Review FAILURE to THRIVE, POOR SELF CARE, SAUL, UTI Code Status Full Code Current Weight Wgt-70.3 kg Renally Cleared and Narrow Therapeutic Index Meds CrCl~42 mL/min Meds-OK QTc Value / Action Taken QTc-473 (Protonix, Levaquin) BP Control, Fever BP- 144/80 Tmax- 36.6 Electrolytes reviewed Na- 139 K+3.7 Mag-1.8 DVT Prophylaxis Heparin-SC Opiate Usage / Scheduled Bowel Regimen Ordered No Yes Plt/SCr for Heparin / Enoxaparin Plts-228 SCr-1.35 INR for Warfarin NA H/H stable, WBC/Bands H&H-8.38/28.6 WBC- 3.87 Antibiotic appropriateness Levaquin 750mg IV q$*H Cultures and Sensitivities Urine-Pending Surgical ABX d/c within 24 hr NA DM control / Insulin Dosing BG- 88 Heart Failure (Check EF%) (SONIYA's, B-Block, Diuretics) Diltiazem, IV to PO Switch No Home Meds Reviewed Yes Home Meds Not Ordered ,Dulcolax Comments
[2019-08-20] MEDS: Sucralfate 1 GM TAB PO ×2 (16:42→21:31)
--- NOTE | 2019-08-20 17:37 | CMSCP_ITS ---
Swingbed Plan of Care Plan of care: SWING BED PROGRAM ACTIVITIES/DISCHARGE PLAN OF CARE ACTIVITIES PLAN Date: 08/20/19 Identified Need: Service connection, enrichment activities Intervention/Plan: Social outings with brother, PCP attachment at [place] for continued supports, CART items. Initials: [facility] DISCHARGE PLAN Date: 08/20/91 Identified Need: Service connection, continued rehabilitation Intervention/Plan: Increased home services; RN/PT/OT/MAGAZINE JOURNALIST, homemaker supports through [place], new [place] MD following orders, alcohol sobriety supports through [place], [facility] Case Management with Felisa Terrell; [place] and local COA or VNA. MOW coordination. Initials: [facility]
--- NOTE | 2019-08-20 17:37 | CM.SWINGPC ---
Swingbed Plan of Care Plan of care: SWING BED PROGRAM ACTIVITIES/DISCHARGE PLAN OF CARE ACTIVITIES PLAN Date: 08/20/19 Identified Need: Service connection, enrichment activities Intervention/Plan: Social outings with brother, PCP attachment at [place] for continued supports, CART items. Initials: [facility] DISCHARGE PLAN Date: 08/20/91 Identified Need: Service connection, continued rehabilitation Intervention/Plan: Increased home services; RN/PT/OT/NEWS SPECIALIST, homemaker supports through [place], new [place] MD following orders, alcohol sobriety supports through [place], [facility], [facility] Case Management with Felisa Terrell; [place] and local COA or [facility]NA. MOW coordination. Initials: [facility]ON[facility]
--- NOTE | 2019-08-20 17:40 | CMSA_ITS ---
SB Psychosocial/Act.Assessment - Hospital Admission Admission Date: 08/12/19 Admission From:: Home Diagnosis:: Failure to Thrive, Poor self care, SAUL, UTI - Swing Bed Admission Swing Bed Admit Date:: 08/20/19 Swing Bed Level of Care: Level 1/SNF - Social Supports PREVIOUS FUNCTIONAL STATUS/SOCIAL/FAMILY SUPPORTS:: Khoi resides alone in his apartment in [facility]. He was in both the [employer] and the [employer]. 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 Khoi is previously independent with ADL's and meals though has been struggling since this summer with increased weakness and failure to thrive. - Prior to Admission Living Arrangements/Environment Prior to Admission:: Khoi resides alone in an apartment in [facility]. His brother Owen resides in [place] and is his primary support person. Khoi is a [employer]. Previously Khoi reports being independent with ADLs, currently though he presents with failure to thrive after returning home from [facility]. - : Yes - Benefits Financial: Medicare, Medicaid - Present Functional Status Physical Abilities:: Deconditioned Cognitive:: Alert and Oriented Communication:: Appropriate Behavior:: Pleasant, with intermittent need for encouragement. - Medical History PAST MEDICAL HISTORY/PAST SURGICAL HISTORY:: Alcohol use disorder, COPD, smoking hx - Admission Data Reason for Swing Bed Admission:: Continued rehab and service coordination. Discharge Plan:: Khoi will return home with increased services. [facility]. Sewing Department Supervisor: Haydee Bravo Date Assessment was completed:: 08/20/19
[2019-08-20] MEDS: Budesonide/Formoterol 160/4.5 6 GM 60 PUFF INH IH (19:48)
[2019-08-20] MEDS: Cyclobenzaprine 10 MG TAB PO (19:49)
[2019-08-20] MEDS: Gabapentin 100 MG CAP 200 MG PO (19:49)
[2019-08-20] MEDS: Ferrous Sulfate 325 MG TAB PO (19:50)
[2019-08-20] MEDS: Ascorbic Acid 500 MG TAB PO (19:50)
[2019-08-20] MEDS: dilTIAZem 30 MG TAB PO (19:50)
[2019-08-20] MEDS: Pantoprazole 40 MG TABCR PO (19:50)
[2019-08-20] MEDS: Docusate Sodium 100 MG CAP PO (19:51)
[2019-08-20] MEDS: Acetaminophen 500 MG TAB 1000 MG PO (21:30)
[2019-08-20] MEDS: Melatonin 3 MG TAB 6 MG PO (21:31)
[2019-08-20] MEDS: Magnesium Oxide 400 MG TAB PO (21:31)
[2019-08-21 01:24] VITALS: BP 155/74; PULSE 66; RESP 18; TEMP 35.6; O2SAT 95
[2019-08-21 07:40] VITALS: BP 133/74; PULSE 69; RESP 18; TEMP 36.8; O2SAT 95
[2019-08-21] MEDS: Budesonide/Formoterol 160/4.5 6 GM 60 PUFF INH IH (07:40)
[2019-08-21] MEDS: DULoxetine 30 MG CAP PO (07:56)
[2019-08-21] MEDS: Thiamine 100 MG TAB PO (07:56)
[2019-08-21] MEDS: Gabapentin 100 MG CAP 200 MG PO ×3 (07:56→20:24)
[2019-08-21] MEDS: Sucralfate 1 GM TAB PO ×4 (07:57→22:07)
[2019-08-21] MEDS: Acetaminophen 500 MG TAB 1000 MG PO ×3 (07:57→22:07)
[2019-08-21] MEDS: Multivitamin TAB 1 TAB PO (07:57)
[2019-08-21] MEDS: Cyclobenzaprine 10 MG TAB PO ×3 (07:57→20:24)
[2019-08-21] MEDS: Pantoprazole 40 MG TABCR PO (07:58)
[2019-08-21] MEDS: Ascorbic Acid 500 MG TAB PO ×2 (07:58→20:23)
[2019-08-21] MEDS: Cyanocobalamin 500 MCG TAB 1000 MCG PO (07:58)
[2019-08-21] MEDS: Tamsulosin 0.4 MG CAPCR PO (07:58)
[2019-08-21] MEDS: Ferrous Sulfate 325 MG TAB PO ×2 (07:58→20:24)
[2019-08-21] MEDS: Docusate Sodium 100 MG CAP PO (07:58)
[2019-08-21] MEDS: dilTIAZem 30 MG TAB PO ×3 (07:59→20:23)
[2019-08-21] MEDS: Normal Saline Flush 10 ML SYR IVP (08:00)
[2019-08-21] MEDS: Magnesium Oxide 400 MG TAB PO ×2 (09:50→22:07)
--- NOTE | 2019-08-21 10:27 | PT.INIE ---
Date of service: 08/21/19 Time of Service: 09:57 PT Notes Physical Therapy Inpatient Initial Evaluation Date: 08/21/2019 Referring Doctor: Sheridan Ndiaye NP PT Orders: PT CONSULT: Continue PT on swing bed status Precautions: Fall. Standard. Activity as tolerated. Patient Profile/Admitting Diagnosis: Patient converted to swing bed level 1 as of 08/20/2019 and is being evaluated today for continued skilled physical therapy services. Patient is a 73-year-old male with a past medical history significant for alcohol abuse and COPD who presented to the ED on 08/12/2019 with chief complaints of loose watery stools, incontinence, and able to perform self-care, right hip pain and tenderness, and mild SOB. and ongoing uncontrollable daily use of alcohol and cigarettes. Patient is diagnosed with failure to thrive, generalized weakness, poor self home care, acute kidney injury, and urinary tract infection. PMHX: Medical History Alcohol use disorder (Acute) COPD (chronic obstructive pulmonary disease) (Chronic) Smoking hx (Acute) Social History/Home Situation: Patient lives alone in an apartment with 15 steps to get in with a rail on the right going up. He was independent with all aspects of ADLs without the need for an assistive ambulatory device nor adaptive equipment although he stated that recently it has been very difficult to do so due to weakness and uncontrolled alcoholism. Current Functional Limitations: Need for assistance for all transfer front wheeled walker. Equipment Owned/DME: None but will need a FWW. Subjective: Patient reports that he has been sleeping well with the new medication that has been given him, he states that he will not be able to do what he is able to do now if he is not getting good sleep. He states that SNF placement is being worked on while he is on swing bed level at this hospital. He still hopes he can go home at cane level. Objective: General Observation: Patient seen resting in bed. Bilateral TEDS on Mental Status: Alert and oriented x 4 Pain: 0/10 ROM: Right Upper Extremity: Shoulder Flexion WFL. Shoulder abduction WFL. Elbow flexion WFL. Wrist flexion WFL. Functional opening and closing of hand WFL. Left Upper Extremity: Shoulder Flexion WFL. Shoulder abduction WFL. Elbow flexion WFL. Wrist flexion WFL. Functional opening and closing of hand WFL. Right Lower Extremity: Hip flexion WFL. Hip abduction WFL. Knee flexion WFL. Ankle dorsiflexion WFL. Ankle plantarflexion WFL. Left Lower Extremity: Hip flexion WFL. Hip abduction WFL. Knee flexion WFL. Ankle dorsiflexion WFL. Ankle plantarflexion WFL. Strength: Right Upper Extremity: Shoulder flexors 4/5. Shoulder abductors 4/5. Elbow flexors 4/5. Elbow extensors 4/5. Director Of Accreditation strong. Left Upper Extremity: Shoulder flexors 4/5. Shoulder abductors 4/5. Elbow flexors 4/5. Elbow extensors 4/5. Director Of Accreditation strong. Right Lower Extremity: Hip flexors 3+/5. Hip abductors 4-/5. Knee flexors 4-/5. Knee extensors 4-/5. Ankle dorsiflexors 4-/5. Ankle plantarflexors 4-/5. Left Lower Extremity:Hip flexors 4/5. Hip abductors 4/5. Knee flexors 4/5. Knee extensors 4/5. Ankle dorsiflexors 4/5. Ankle plantarflexors 4/5. Sensation: Intact as to pain and pressure on bilateral lower extremities. Bed Mobility/Transfers: Rolling independent Supine to sit independent Sit to supine independent Sit to stand supervision Stand to sit supervision Bed to chair supervision Chair to bed supervision Gait: Patient is able to tolerate in room ambulation of 120 feet +30 feet +30 feet using a front wheeled walker with full weight bearing on bilateral lower extremities and upper extremities requiring only SBA with antalgic gait on right observed with increasing step length as well as step height. Gait speed now considerably increased as well due to improved pain tolerance. Patient is also able to tolerate three 4 inch steps and two 6 inch steps while holding onto bilateral rails with a step to gait pattern requiring SBA. Patient reported discomfort on the right thigh during his descent. Pain subsided with rest. Balance: Static Sitting: Normal Dynamic Sitting: Normal Static Standing: Fair Dynamic Standing: Fair Special Tests: Mobility Limitations Standardized Measure [facility] 6 clicks Basic Mobility Inpatient Short Form: Raw Score: 18 CMS Score: 47% deficit Informed Consent/Education: Patient instructed in purpose of PT consult and plan of care. Assessment: Patient converted to swing bed level 1 as of 08/20/2019 and is being evaluated today for continued skilled physical therapy services. Patient is a 73-year-old male with a past medical history significant for alcohol abuse and COPD who presented to the ED on 08/12/2019 with chief complaints of loose watery stools, incontinence, and able to perform self-care, right hip pain and tenderness, and mild SOB, and ongoing uncontrollable daily use of alcohol and cigarettes. Patient is diagnosed with failure to thrive, generalized weakness, poor self home care, acute kidney injury, and urinary tract infection. Patient is agreeable to continuing skilled physical therapy services to achieve goals of becoming independent with all transfer and ambulation task performance using the single-point cane in anticipation of discharge to home after a possible placement in a SNF. Patient continues to report discomfort on the right hip with weight bearing albeit rather of lesser intensity. Patient continues to present with clinical signs and symptoms consistent with current/admitting diagnoses that have resulted to mobility limitations, gait instability, generalized weakness, and impairment of motor control as demonstrated by the following impairment level findings: 1. Decreased strength to B LE major muscle groups 2. Impaired sitting/standing balance 3. Impaired activity tolerance Impairments are contributing to the following functional limitations: 1. Inability to safely ambulate without assistive device and physical assistance 2. Increase completion time for mobility ADL performance 3. Increased fall risk 4. Inability to negotiate steps alone safely Patient is assessed [place] a 47947 moderate complexity based on the following: History: Patient is a 73-year-old male with a past medical history significant for alcohol abuse and COPD who presented to the ED on 08/12/2019 with chief complaints of loose watery stools, incontinence, and able to perform self-care, right hip pain and tenderness, and mild SOB. and ongoing uncontrollable daily use of alcohol and cigarettes Examination: Demonstrable impairment in strength, balance, and range of motion with underlying impairments and functional limitations as documented above Presentation:Evolving Decision Makin moderate complexity Goals: Goals X1 week 1. Independent gait on level surface with use of single-point cane for at least 150 feet without report of pain nor dyspnea 2. Independent stair negotiation while holding onto bilateral rails for at least 15 steps without report of pain nor dyspnea 3. Independent with home exercise program 4. Good static and dynamic standing balance/tolerance Plan of Care/Treatment Plan: 1-2x/day, 7 days/week x 1 week. Plan of care has been reviewed with the CHEMICAL LAB TECHNICIAN providing the service under Physical Therapy direction. Initiate Physical Therapy intervention for strengthening, bed mobility, transfers, gait, stairs, balance training, use of assistive device. DISCHARGE RECOMMENDATIONS: Patient will benefit from assisted facility placement in order to progress mobility level, strength, and balance in preparation for a safe discharge to home. TREATMENT CODE/TIME: 02532 x 23 minutes beginning at 9:57 AM. Thank you very much for this referral. Franchesca Hawley PT, DPT, CLT [facility]
[2019-08-21 16:07] VITALS: BP 130/73; PULSE 75; RESP 18; TEMP 36.6; O2SAT 94
--- NOTE | 2019-08-21 16:44 | PT.INTREAT ---
Date of service: 08/21/19 Time of Service: 14:59 PT Notes Physical Therapy Inpatient Treatment Note Date: 08/21/2019 PRECAUTIONS: Fall. Standard. Activity as tolerated. SUBJECTIVE: Patient is happy about how he did not have pain upon standing up from edge of bed. He did report about how slow he is walking this afternoon compared to this morning. He is looking forward to continuing skilled PT services to achieve his mobility goal of becoming independent with a single point cane. He did say that he may not be able to manage alone at home and that he may need additional services like meals on wheels and assistance with doing house chores. OBJECTIVE: Patient seen sitting at edge of bed for the morning session. No new signs observed. PAIN: No compliant of pain upon standing up from bed but reported 1/10 pain on the R hip BED MOBILITY/TRANSFERS Rolling L/R: independent Supine-sit: independent Sit-supine: independent Sit-stand: supervision Stand-sit: supervision Bed-Chair: supervision Chair-bed: supervision GAIT Assistive Device: FWW Weight bearing: FWB Assist: SBA Distance: 120 feet Deviation: Increasing gait velocity with decreased pain ASSESSMENT: Patient is continuing to demonstrate improving mobility independence and better pain control with new muscle relaxant. He responds well to planning physical therapy activities in advance and appreciates continuos feedback about how he is doing. He likes to take the lead during therapy sessions and reacts well when options are provided. He will continue to benefit from skilled physical therapy services to achieve independent mobility level with the least restrictive device. Concerns about additional services for home will be brought up with care management. PLAN: Continue with PT POC as initially established. TREATMENT CODE/TIME: 77502 x 36 minutes beginning at 14:59 p.m..
[2019-08-21 20:20] VITALS: BP 123/61; PULSE 90; RESP 18; TEMP 36.7; O2SAT 94
[2019-08-21] MEDS: Melatonin 3 MG TAB 6 MG PO (22:07)
[2019-08-22] MEDS: Acetaminophen 500 MG TAB 1000 MG PO ×3 (06:37→21:31)
[2019-08-22 06:41] LABS: HCT 30.8 % (40.0-50.0); HGB 9.2 g/dL (13.5-17.5)
--- NOTE | 2019-08-22 08:44 | PT.INTREAT ---
Date of service: 08/22/19 Time of Service: 08:45 PT Notes 08/22/19 SUBJECTIVE: Khoi stating he does not really want to participate in PT. With encouragement he finally does agree. He notes some cramping the right lateral hip upon standing. He notes tomorrow he will do the stairs but does not feel up to it today. OBJECTIVE: TRANSFERS Sit to stand: S Stand to sit: S GAIT Device: FWW Weight bearing : Full Assist: SBA Distance: 120' ASSESSMENT: Pt not very motivated to participate in PT today although does agree to walk short distance. Will progress his program tomorrow as he is willing. Encouraged pt to walk with nursing later this afternoon. PLAN: Continue current POC. Treatment time: 10 minutes [id number] Yee Cordon PTA Clinic location: [facility] [place], [place]
[2019-08-22] MEDS: Docusate Sodium 100 MG CAP PO (08:59)
[2019-08-22] MEDS: DULoxetine 30 MG CAP PO (08:59)
[2019-08-22] MEDS: dilTIAZem 30 MG TAB PO ×3 (08:59→20:12)
[2019-08-22] MEDS: Tamsulosin 0.4 MG CAPCR PO (08:59)
[2019-08-22] MEDS: Cyanocobalamin 500 MCG TAB 1000 MCG PO (09:00)
[2019-08-22] MEDS: Gabapentin 100 MG CAP 200 MG PO ×3 (09:00→20:12)
[2019-08-22] MEDS: Pantoprazole 40 MG TABCR PO (09:00)
[2019-08-22] MEDS: Ferrous Sulfate 325 MG TAB PO ×2 (09:00→20:12)
[2019-08-22] MEDS: Ascorbic Acid 500 MG TAB PO ×2 (09:01→20:12)
[2019-08-22] MEDS: Multivitamin TAB 1 TAB PO (09:01)
[2019-08-22] MEDS: Sucralfate 1 GM TAB PO ×3 (09:01→21:32)
[2019-08-22] MEDS: Thiamine 100 MG TAB PO (09:01)
[2019-08-22] MEDS: Cyclobenzaprine 10 MG TAB PO ×3 (09:01→20:12)
[2019-08-22] MEDS: Budesonide/Formoterol 160/4.5 6 GM 60 PUFF INH IH ×2 (09:05→20:13)
[2019-08-22 10:22] VITALS: BP 113/73; PULSE 81; RESP 17; TEMP 36.6; O2SAT 95
[2019-08-22] MEDS: Magnesium Oxide 400 MG TAB PO ×2 (10:38→21:31)
[2019-08-22 17:10] VITALS: BP 129/75; PULSE 78; RESP 16; TEMP 36.6; O2SAT 100
[2019-08-22 20:00] VITALS: BP 135/79; PULSE 84; RESP 17; TEMP 36.5; O2SAT 97
[2019-08-22] MEDS: Melatonin 3 MG TAB 6 MG PO (21:31)
[2019-08-23 07:20] VITALS: BP 119/66; PULSE 82; RESP 18; TEMP 36.6; O2SAT 96
[2019-08-23] MEDS: Thiamine 100 MG TAB PO (07:36)
[2019-08-23] MEDS: Pantoprazole 40 MG TABCR PO ×2 (07:38→19:42)
[2019-08-23] MEDS: Ferrous Sulfate 325 MG TAB PO ×2 (07:38→19:42)
[2019-08-23] MEDS: Tamsulosin 0.4 MG CAPCR PO (07:38)
[2019-08-23] MEDS: Gabapentin 100 MG CAP 200 MG PO ×3 (07:38→19:42)
[2019-08-23] MEDS: DULoxetine 30 MG CAP PO (07:38)
[2019-08-23] MEDS: dilTIAZem 30 MG TAB PO ×3 (07:39→19:42)
[2019-08-23] MEDS: Cyanocobalamin 500 MCG TAB 1000 MCG PO (07:39)
[2019-08-23] MEDS: Sucralfate 1 GM TAB PO ×4 (07:39→21:06)
[2019-08-23] MEDS: Docusate Sodium 100 MG CAP PO ×2 (07:39→19:42)
[2019-08-23] MEDS: Ascorbic Acid 500 MG TAB PO ×2 (07:39→19:41)
[2019-08-23] MEDS: Multivitamin TAB 1 TAB PO (07:40)
[2019-08-23] MEDS: Cyclobenzaprine 10 MG TAB PO ×3 (07:40→19:42)
[2019-08-23] MEDS: Budesonide/Formoterol 160/4.5 6 GM 60 PUFF INH IH ×2 (07:40→19:42)
[2019-08-23] MEDS: Acetaminophen 500 MG TAB 1000 MG PO ×3 (07:41→21:06)
--- NOTE | 2019-08-23 09:11 | PT.INTREAT ---
Date of service: 08/23/19 Time of Service: 09:11 PT Notes 08/23/19 SUBJECTIVE: Pt stating the muscle relaxer he is taking seems to be helping the cramp in this right leg. OBJECTIVE: Agreeable to PT. TRANSFERS Supine to sit: I Sit to supine: I Sit to stand: S Stand to sit: S GAIT Device: FWW Weight bearing: Full Assist: SBA Distance: 200' ASSESSMENT: Pt tolerating increase in gait distance today with complains of slight SOB at end of gait distance. He was fatigued and was not willing to do the stairs for me today. PLAN: Continue current POC. Treatment time: 12 minutes [id number] Yee Cordon PTA Clinic location: [facility] [place], [place]
[2019-08-23] MEDS: Magnesium Oxide 400 MG TAB PO ×2 (10:02→21:07)
[2019-08-23 16:42] VITALS: BP 150/73; PULSE 84; RESP 18; TEMP 36.5; O2SAT 98
[2019-08-23 19:30] VITALS: BP 133/83; PULSE 85; RESP 19; TEMP 36.4; O2SAT 97
[2019-08-23] MEDS: Normal Saline Flush 10 ML SYR IVP (19:42)
[2019-08-23] MEDS: Melatonin 3 MG TAB 6 MG PO (21:06)
[2019-08-24 01:04] VITALS: BP 127/79; PULSE 85; RESP 16; TEMP 36.6; O2SAT 98
[2019-08-24] MEDS: Acetaminophen 500 MG TAB 1000 MG PO ×3 (06:28→22:12)
[2019-08-24 06:50] LABS: HCT 30.3 % (40.0-50.0); HGB 9.3 g/dL (13.5-17.5); Mean Corp. HGB Concentration 30.7 g/dL (32.0-36.0); Mean Corpuscular Hemoglobin 22.7 pg (27.0-33.0); Mean Corpuscular Volume 73.9 fL (80-95); Mean Platelet Volume 8.9 fL (8.0-11.0); Platelet Count 397 x1000/uL (130-400); RBC Distribution Width 24.6 % (11.8-14.1); White Blood Cell Count 5.37 k/cumm (4.4-10.8)
[2019-08-24 07:01] LABS: Anion Gap 9.8 mmol/L (3-11); BUN 42 mg/dL (7-18); CO2 26.2 mmol/L (21.0-32.0); CREATININE 1.34 mg/dL (0.70-1.30); Calcium 8.9 mg/dL (8.5-10.1); Chloride 105 mmol/L (98-107); Estimated GFR 52.25 (mL/min/1.73m2); Glucose 91 mg/dL (74-106); Magnesium 1.9 mg/dL (1.8-2.4); Potassium 4.3 mmol/L (3.5-5.1); Sodium 141 mmol/L (136-145)
[2019-08-24 07:30] VITALS: BP 138/55; PULSE 92; RESP 17; TEMP 36.2; O2SAT 97
[2019-08-24] MEDS: dilTIAZem 30 MG TAB PO ×3 (08:55→22:12)
[2019-08-24] MEDS: Docusate Sodium 100 MG CAP PO ×2 (08:55→22:11)
[2019-08-24] MEDS: DULoxetine 30 MG CAP PO (08:55)
[2019-08-24] MEDS: Cyanocobalamin 500 MCG TAB 1000 MCG PO (08:55)
[2019-08-24] MEDS: Ferrous Sulfate 325 MG TAB PO ×2 (08:56→22:11)
[2019-08-24] MEDS: Sucralfate 1 GM TAB PO ×4 (08:56→22:11)
[2019-08-24] MEDS: Tamsulosin 0.4 MG CAPCR PO (08:56)
[2019-08-24] MEDS: Pantoprazole 40 MG TABCR PO ×2 (08:56→22:11)
[2019-08-24] MEDS: Thiamine 100 MG TAB PO (08:56)
[2019-08-24] MEDS: Gabapentin 100 MG CAP 200 MG PO ×3 (08:56→22:11)
[2019-08-24] MEDS: Cyclobenzaprine 10 MG TAB PO ×3 (08:56→22:12)
[2019-08-24] MEDS: Ascorbic Acid 500 MG TAB PO ×2 (08:56→22:12)
[2019-08-24] MEDS: Multivitamin TAB 1 TAB PO (08:56)
[2019-08-24] MEDS: Budesonide/Formoterol 160/4.5 6 GM 60 PUFF INH IH ×2 (09:02→22:12)
[2019-08-24 09:05] VITALS: PULSE 88; RESP 18; O2SAT 98
[2019-08-24] MEDS: Magnesium Oxide 400 MG TAB PO ×2 (10:02→22:11)
--- NOTE | 2019-08-24 10:54 | PT.INTREAT ---
Date of service: 08/24/19 Time of Service: 10:53 PT Notes Physical Therapy Inpatient Treatment Note Date: 08/24/2019 PRECAUTIONS: Fall. Standard. Activity as tolerated. SUBJECTIVE: Patient is agreeable to the plan of upgrading his mobility level to being independent inside his room and with level surface ambulation of 120 feet using his front wheeled walker. He is agreeable to a PT session. OBJECTIVE: No new signs observed. Patient seen resting in bed. PAIN: No complaint of pain upon standing up from bed but reported 1/10 pain on the R hip at the end of 270 feet walk. BED MOBILITY/TRANSFERS Rolling L/R: independent Supine-sit: independent Sit-supine: independent Sit-stand: Independent Stand-sit: Independent Bed-Chair: Independent Chair-bed: Independent GAIT Assistive Device: FWW Weight bearing: FWB Assist: Supervision Distance: 270 feet Deviation: Increasing gait velocity with decreased pain THERA EX: Patient tolerated seated exercises of unilateral hip flexion, bilateral knee extension, bilateral heel toe raises x10 reps without undue difficulty. ASSESSMENT: Patient is made independent inside room and with level surface ambulation of 120 feet with front wheeled walker. Patient is continuing to demonstrate improving mobility independence and better pain control with new muscle relaxant.He will continue to benefit from skilled physical therapy services to achieve independent mobility level with the least restrictive device. Concerns about additional services for home will be brought up with care management. PLAN: We will talk with patient about negotiating real flight of steps preparation for discharged home when safe. TREATMENT CODE/TIME: 40386 x 18 minutes beginning at 10:53 PM.
--- NOTE | 2019-08-24 13:33 | CMPROGNOTE_ITS ---
Care Management Progress Note CM rescheduled appointment with the [facility] through Felisa Terrell CM. P#[phone] for 08/28/19@1030. CONOR arranged transport through [facility] with the W/C van to the [facility], and faxed updated clinicals to Felisa, Swathi#[phone]. Aimee at [facility] reported transport was scheduled and picker / packer time would be automatica lly configured when transport was processed through dispatch. CM will call [facility] later this week to confirm picker / packer time.
--- NOTE | 2019-08-24 13:33 | PDOC.CMPRO ---
Care Management Progress Note CM rescheduled appointment with the [facility] through Felisa Terrell CM. P#[phone] for 08/28/19@1030. CM arranged transport through [facility] with the W/C van to the [facility], and faxed updated clinicals to Swathi Roberto#[phone]. Aimee at [facility] reported transport was scheduled and strip picker time would be automatically configured when transport was processed through dispatch. CM will call [facility] later this week to confirm strip picker time.
--- NOTE | 2019-08-24 14:27 | PT.INTREAT ---
Date of service: 08/24/19 PT Notes Inpatient Physical Therapy Treatment Note [facility] Date: 08/24/2019 PRECAUTIONS: Fall. Standard. Activity as tolerated. Right you LE weakness. SUBJECTIVE: In the morning patient want this PT about getting ready to support the right knee as it has been so unstable. He states that his right arm it is right leg seems to be . Happy to do OBJECTIVE: [] PAIN: [] BED MOBILITY/TRANSFERS Rolling L/R: [] Supine-sit: [] Sit-supine: [] Sit-stand: [] Stand-sit: [] Bed-Chair: [] Chair-bed: [] GAIT Assistive Device: [] Weight bearing: [] Assist: [] Distance: [] Deviation: [] VITALS: [] THEREX: [] STAIRS:[] ASSESSMENT: [] PLAN: [] TREATMENT CODE/TIME: []
[2019-08-24 15:35] VITALS: BP 122/79; PULSE 83; RESP 16; TEMP 36.6; O2SAT 96
--- NOTE | 2019-08-24 17:48 | PDOC.CMPRO ---
- If Service Date Differs Date of service: 08/24/19 Time of Service: 17:49 Care Management Progress Note Khoi was supposed to have an appointment with a physician at the [facility] in [place], [place]. Unfortunately transportation was not available. The appointment has beeen rescheduled for Saturday09/01/19 at 10:30 am. will coordinate transportation.
[2019-08-24] MEDS: Melatonin 3 MG TAB 6 MG PO (22:11)
[2019-08-24 22:25] VITALS: BP 127/74; PULSE 83; RESP 16; TEMP 36.7; O2SAT 96
[2019-08-25] MEDS: Acetaminophen 500 MG TAB 1000 MG PO ×3 (04:58→20:15)
[2019-08-25 07:40] VITALS: BP 131/86; PULSE 80; RESP 17; TEMP 37; O2SAT 98
[2019-08-25] MEDS: Budesonide/Formoterol 160/4.5 6 GM 60 PUFF INH IH ×2 (08:31→20:16)
[2019-08-25] MEDS: Magnesium Oxide 400 MG TAB PO ×2 (09:30→20:15)
[2019-08-25] MEDS: Cyanocobalamin 500 MCG TAB 1000 MCG PO (09:30)
[2019-08-25] MEDS: Cyclobenzaprine 10 MG TAB PO ×3 (09:30→20:16)
[2019-08-25] MEDS: Sucralfate 1 GM TAB PO ×4 (09:30→20:16)
[2019-08-25] MEDS: DULoxetine 30 MG CAP PO (09:30)
[2019-08-25] MEDS: dilTIAZem 30 MG TAB PO ×3 (09:31→20:15)
[2019-08-25] MEDS: Docusate Sodium 100 MG CAP PO ×2 (09:31→20:16)
[2019-08-25] MEDS: Ferrous Sulfate 325 MG TAB PO ×2 (09:31→20:16)
[2019-08-25] MEDS: Ascorbic Acid 500 MG TAB PO ×2 (09:31→20:16)
[2019-08-25] MEDS: Tamsulosin 0.4 MG CAPCR PO (09:31)
[2019-08-25] MEDS: Multivitamin TAB 1 TAB PO (09:31)
[2019-08-25] MEDS: Thiamine 100 MG TAB PO (09:31)
[2019-08-25] MEDS: Pantoprazole 40 MG TABCR PO ×2 (09:31→20:16)
[2019-08-25] MEDS: Gabapentin 100 MG CAP 200 MG PO ×3 (09:31→20:16)
[2019-08-25 11:11] VITALS: BP 134/53; PULSE 68; RESP 17; TEMP 37; O2SAT 96
--- NOTE | 2019-08-25 14:06 | PT.INTREAT ---
Date of service: 08/25/19 Time of Service: 10:52 PT Notes Physical Therapy Inpatient Treatment Note Date: 08/25/2019 PRECAUTIONS: Fall. Standard. Activity as tolerated. SUBJECTIVE: Patient states that he has been doing good with the upgrade to independent level with all transfers and ambulation task performance inside his room and throat with a small nursing loop for about 120 feet using his front wheeled walker. Patient reported mild discomofrt on R hip with descent on stairs. OBJECTIVE: No new signs observed. Patient seen resting in bed. PAIN: No complaint of pain upon standing up from bed but reported 1/10 pain on the R hip after performing stair negotiation activity. BED MOBILITY/TRANSFERS Rolling L/R: independent Supine-sit: independent Sit-supine: independent Sit-stand: Independent Stand-sit: Independent Bed-Chair: Independent Chair-bed: Independent GAIT Assistive Device: FWW Weight bearing: FWB Assist: Supervision Distance: 80' x 2 Deviation: Increasing gait velocity with decreased pain STAIRS: Patient is able to negotiate 14 steps while holding onto right rail using step-to gait pattern requiring only SBA and moderate verbal cues for safe gait pattern. ASSESSMENT: Patient is made independent inside room and with level surface ambulation of 120 feet with front wheeled walker. Patient is continuing to demonstrate improving mobility independence and better pain control with new muscle relaxant. He will continue to benefit from skilled physical therapy services to achieve independent mobility level with the least restrictive device. Care management was made aware this morning about needs for meal preparation/cooking, laundry, and grocery shopping. referral to PT/OT/SW is suggested to facilitate success with return to home. PLAN: Will do another trial of stair negotiation in order to increase independence. TREATMENT CODE/TIME: 54685 x 43 minutes beginning at 10:52 AM.
[2019-08-25] MEDS: Melatonin 3 MG TAB 6 MG PO (20:16)
[2019-08-25 20:54] VITALS: BP 105/69; PULSE 94; RESP 17; TEMP 36.6; O2SAT 98
[2019-08-26] MEDS: Acetaminophen 500 MG TAB 1000 MG PO ×3 (06:25→21:04)
[2019-08-26 07:10] VITALS: BP 127/72; PULSE 83; RESP 18; TEMP 36.6; O2SAT 97
[2019-08-26] MEDS: Pantoprazole 40 MG TABCR PO ×2 (07:40→21:05)
[2019-08-26] MEDS: Sucralfate 1 GM TAB PO ×4 (07:40→21:05)
[2019-08-26] MEDS: Cyanocobalamin 500 MCG TAB 1000 MCG PO (08:49)
[2019-08-26] MEDS: Ascorbic Acid 500 MG TAB PO ×2 (08:49→21:05)
[2019-08-26] MEDS: Thiamine 100 MG TAB PO (08:50)
[2019-08-26] MEDS: Multivitamin TAB 1 TAB PO (08:50)
[2019-08-26] MEDS: Tamsulosin 0.4 MG CAPCR PO (08:50)
[2019-08-26] MEDS: Ferrous Sulfate 325 MG TAB PO ×2 (08:51→21:05)
[2019-08-26] MEDS: Docusate Sodium 100 MG CAP PO ×2 (08:51→21:04)
[2019-08-26] MEDS: Gabapentin 100 MG CAP 200 MG PO ×3 (08:51→21:04)
[2019-08-26] MEDS: DULoxetine 30 MG CAP PO (08:51)
[2019-08-26] MEDS: Cyclobenzaprine 10 MG TAB PO ×3 (08:51→21:04)
[2019-08-26] MEDS: dilTIAZem 30 MG TAB PO ×3 (08:51→21:05)
[2019-08-26] MEDS: Budesonide/Formoterol 160/4.5 6 GM 60 PUFF INH IH ×2 (09:22→21:03)
[2019-08-26] MEDS: Magnesium Oxide 400 MG TAB PO ×2 (10:03→21:04)
--- NOTE | 2019-08-26 12:27 | PT.INTREAT ---
Date of service: 08/26/19 Time of Service: 11:23 PT Notes Visit Reasons: Failure to thrive Physical Therapy Inpatient Treatment Note Date: 08/26/2019 PRECAUTIONS: Fall. Standard. Activity as tolerated. SUBJECTIVE: Patient does not feel good today and requested to be seen later in the afternoon as he does not know how much he will be able to do this morning. After rationalizing with client about how moving session in the afternoon may not be a good idea as he has not done well later in the day these past days, patient agreed to being checked back in again on around 11 AM. OBJECTIVE: No new signs observed. Patient seen resting in bed. PAIN: No complaint of pain upon standing up from bed nor on initial R LE advancement. He did not report any pain at end of session. BED MOBILITY/TRANSFERS Rolling L/R: independent Supine-sit: independent Sit-supine: independent Sit-stand: Independent Stand-sit: Independent Bed-Chair: Independent Chair-bed: Independent GAIT Assistive Device: FWW Weight bearing: FWB Assist: Supervision Distance: 120' Deviation: Increasing gait velocity with decreased pain STAIRS: Patient is able to negotiate 12 steps (steps outside med surg area) while holding onto right rail and using SPC on L with step-to gait pattern requiring only SBA and minimal verbal cues for safe gait pattern. ASSESSMENT: Patient is continuing to demonstrate improving mobility independence and better pain control. He will continue to benefit from skilled physical therapy services to achieve independent stair negotiation skills. referral to PT/OT/SW is suggested to facilitate success with return to home. NEW GOAL: Patient to demonstrate modified independence with negotiation technique of 12 steps in order to reduce fall risk at home with report of R hip pain of 0/10. PLAN: D/C on 08/31/2019 from skilled PT services. TREATMENT CODE/TIME: 22339 x 22 minutes beginning at 11:23 AM.
[2019-08-26 13:23] VITALS: PULSE 81
--- NOTE | 2019-08-26 17:35 | PDOC.CMACT ---
- If Service Date Differs Date of service: 08/26/19 Time of Service: 17:35 Care Management Activity Note Khoi continues to work with PT, gaining increasing independence. He has become more talkative and cheerful and stated today that he feels like he can be successful at home. Khoi continues to enjoy watching tv and visiting with friends, family and staff. He also enjoys music and pet therapy when available. P: Khoi's new discharge plan is for him to return home to his apartment on Saturday09/01/19. He will transport to the [facility] in [place] via [facility], coordinated by [facility]. He will meet with his new PCP, return to [facility] and discharge later in the date.He will follow his discahrge plan and transport via [facility].
[2019-08-26] MEDS: Melatonin 3 MG TAB 6 MG PO (21:04)
[2019-08-27 00:03] VITALS: BP 132/63; PULSE 87; RESP 18; TEMP 36.6; O2SAT 95
[2019-08-27] MEDS: Acetaminophen 500 MG TAB 1000 MG PO ×3 (07:06→20:48)
[2019-08-27 07:40] VITALS: BP 132/73; PULSE 86; RESP 17; TEMP 36.8; O2SAT 94
[2019-08-27] MEDS: Docusate Sodium 100 MG CAP PO ×2 (08:09→20:48)
[2019-08-27] MEDS: Cyanocobalamin 500 MCG TAB 1000 MCG PO (08:09)
[2019-08-27] MEDS: Pantoprazole 40 MG TABCR PO ×2 (08:10→20:48)
[2019-08-27] MEDS: dilTIAZem 30 MG TAB PO ×3 (08:10→20:47)
[2019-08-27] MEDS: Gabapentin 100 MG CAP 200 MG PO ×3 (08:10→20:47)
[2019-08-27] MEDS: Cyclobenzaprine 10 MG TAB PO ×3 (08:10→20:48)
[2019-08-27] MEDS: Sucralfate 1 GM TAB PO ×4 (08:10→20:48)
[2019-08-27] MEDS: Ascorbic Acid 500 MG TAB PO ×2 (08:10→20:49)
[2019-08-27] MEDS: DULoxetine 30 MG CAP PO (08:10)
[2019-08-27] MEDS: Multivitamin TAB 1 TAB PO (08:10)
[2019-08-27] MEDS: Ferrous Sulfate 325 MG TAB PO ×2 (08:10→20:47)
[2019-08-27] MEDS: Thiamine 100 MG TAB PO (08:10)
[2019-08-27] MEDS: Tamsulosin 0.4 MG CAPCR PO (08:10)
[2019-08-27] MEDS: Budesonide/Formoterol 160/4.5 6 GM 60 PUFF INH IH ×2 (09:04→20:47)
[2019-08-27] MEDS: Magnesium Oxide 400 MG TAB PO ×2 (11:08→20:47)
[2019-08-27 15:45] VITALS: BP 140/78; PULSE 90; RESP 16; TEMP 36.8; O2SAT 100
[2019-08-27] MEDS: Melatonin 3 MG TAB 6 MG PO (20:48)
[2019-08-27 23:32] VITALS: BP 135/72; PULSE 85; RESP 17; TEMP 36.9; O2SAT 98
[2019-08-28] MEDS: Acetaminophen 500 MG TAB 1000 MG PO ×3 (06:54→20:14)
[2019-08-28 07:17] VITALS: BP 126/62; PULSE 80; RESP 16; TEMP 36.7; O2SAT 95
[2019-08-28] MEDS: dilTIAZem 30 MG TAB PO ×3 (07:56→20:13)
[2019-08-28] MEDS: Gabapentin 100 MG CAP 200 MG PO ×3 (07:56→20:14)
[2019-08-28] MEDS: Cyclobenzaprine 10 MG TAB PO ×3 (07:56→20:14)
[2019-08-28] MEDS: Cyanocobalamin 500 MCG TAB 1000 MCG PO (07:56)
[2019-08-28] MEDS: Thiamine 100 MG TAB PO (07:56)
[2019-08-28] MEDS: Tamsulosin 0.4 MG CAPCR PO (07:57)
[2019-08-28] MEDS: Ascorbic Acid 500 MG TAB PO ×2 (07:57→20:14)
[2019-08-28] MEDS: Multivitamin TAB 1 TAB PO (07:57)
[2019-08-28] MEDS: Docusate Sodium 100 MG CAP PO ×2 (07:57→20:14)
[2019-08-28] MEDS: Pantoprazole 40 MG TABCR PO ×2 (07:57→20:14)
[2019-08-28] MEDS: Sucralfate 1 GM TAB PO ×4 (07:57→20:14)
[2019-08-28] MEDS: Ferrous Sulfate 325 MG TAB PO ×2 (07:57→20:13)
[2019-08-28] MEDS: DULoxetine 30 MG CAP PO (07:57)
[2019-08-28] MEDS: Budesonide/Formoterol 160/4.5 6 GM 60 PUFF INH IH ×2 (08:53→20:14)
[2019-08-28] MEDS: Milk of Magnesia 30 ML CUP PO (11:05)
[2019-08-28] MEDS: Magnesium Oxide 400 MG TAB PO ×2 (11:05→20:14)
--- NOTE | 2019-08-28 11:06 | PT.INNT ---
Date of service: 08/28/19 Time of Service: 11:08 PT Notes Visit Reasons: Failure to thrive 08/28/19 Patient refused PT session x2 this morning, stating first it's not a good day for me, I didn't sleep the last few hours, I can't, and second I have to poop, it's just not a good day for me, I can't. Will attempt to resume PT services this afternoon.
--- NOTE | 2019-08-28 12:07 | PT.INTREAT ---
Date of service: 08/28/19 Time of Service: 12:07 PT Notes Visit Reasons: Failure to thrive Inpatient Physical Therapy Treatment Note [facility] Date: 08/28/2019 PRECAUTIONS: Fall SUBJECTIVE: Rufino states it is not a good day, but I am going to try, I have to try. OBJECTIVE: PAIN: Patient complained of R thigh pain with sit to stand transfer and stair training BED MOBILITY/TRANSFERS Sit-stand: I Stand-sit: I GAIT Assistive Device: No AD Weight bearing: Full Assist: I Distance: 120' STAIRS: Up/down 12?6 using R rail/SPC L and a step to pattern with modified independence ASSESSMENT: Patient tolerated session with complaints of R thigh pain with sit to stand transfer and gait training. Patient was able to demonstrate independence with gait training without use of assistive device, at this time. Patient continues to demonstrate independence with transfers and short distance ambulation within his room. PLAN: As per primary PT TREATMENT CODE/TIME: 20 minutes; 86616
[2019-08-28 15:59] VITALS: BP 136/74; PULSE 81; RESP 18; TEMP 36.7; O2SAT 97
--- NOTE | 2019-08-28 17:00 | W.PM.PROGNOT ---
Date of Service Date of service: 08/28/19 Time of Service: 17:01 Assessment and Plan Assessment and plan (1) Atrial fibrillation: Status: Chronic Assessment and plan: Rate controlled on cardizem. No anticoagulation in the setting of recurrent GI bleeding and alcohol abuse. Continue low-dose Cardizem with hold parameters. (2) Alcohol use disorder: Status: Suspected Assessment and plan: Continue to encourage abstinence from alcohol. (3) COPD (chronic obstructive pulmonary disease): Status: Chronic Assessment and plan: Respiratory status is stable. Oxygen saturation 95% on room air. Reports he quit smoking when he was admitted to the hospital. Continue to encourage smoking cessation. (4) Depression: Status: Chronic Assessment and plan: Stable on Cymbalta. (5) Failure to thrive: Status: Acute Assessment and plan: Continue PT/OT. (6) GI bleed: Status: Chronic Assessment and plan: Received one unit of blood during acute hospitalization. Hgb stable. No longer hemepositive stools. Monitor H&H intermittently. (7) Radicular pain of right lower extremity: Status: Acute Assessment and plan: Doing well with gabapentin, flexaril and acetaminophen. Continue PT. Ambulation appears to be improving. (8) Insomnia: Status: Acute Assessment and plan: Sleeping better with scheduled melatonin. Continue melatonin at current dose. (9) Renal insufficiency: Status: Chronic Assessment and plan: Renal function at baseline at the time of transition to swing bed status. Monitor intermittently. (10) DVT prophylaxis: Status: Acute Assessment and plan: Continue TEDs and SCDs. No chemical DVT prophylaxis in the setting of recurrent GI bleeding. (11) Discharge planning issues: Status: Acute Assessment and plan: He is a FULL code. Continue PT. Disposition to be determined. Subjective Subjective Interval history since last seen: Patient states she is feeling better. Today he was able to walk without use of the cane. He feels like his right leg is improving. The meds you gave me seem to be working. Exam Narrative Exam Narrative: On exam he is talkative and animated. He demonstrated for me that he can stand up on the side of the bed. He described a cramping sensation that was fleeting and then no pain. He seemed to be able to balance reasonably well and take a couple of steps on that right leg. No significant tremor. No respiratory difficulty. Objective Objective Clinical Data: Vital Signs Temperature 36.7 C 08/28/19 15:59 Temperature Source Tympanic 08/28/19 15:59 Pulse 81 08/28/19 15:59 Pulse Rhythm Irregular 08/28/19 08:07 Respiratory Rate 18 08/28/19 15:59 Respiratory Effort 08/28/19 08:07 Respiratory Depth Normal 08/28/19 08:07 Respiratory Pattern Normal 08/28/19 08:07 Blood Pressure 136/74 08/28/19 15:59 Pulse Oximetry 97 08/28/19 15:59 Oxygen Delivery Method Room Air 08/28/19 15:59 Oxygen Flow Rate 0 08/28/19 15:59 Pain Level 0 08/28/19 15:59 Comment 08/25/19 11:11 Intake & Output 08/27/19 08/28/19 08/28/19 23:59 11:59 23:59 Intake Total 720 / 720 360 / 600 240 / 600 Output Total 500 / 700 200 / 700 Balance 720 / -105 -140 / -100 40 / -100 Intake: Oral 720 / 720 360 / 600 240 / 600 Output: Urine 500 / 700 200 / 700 Other: Urine Color Yellow Yellow Urine Appearance Clear Clear Clear Urine Odor Normal Stool Size Moderate Stool Characteristics Formed Brown Voiding Methods Urinal Urinal Laboratory Results WBC 5.37 k/cumm (4.4-10.8) 08/24/19 06:30 RBC 4.10 m/cumm (4.50-6.00) L 08/24/19 06:30 Hgb 9.3 g/dL (13.5-17.5) L 08/24/19 06:30 Hct 30.3 % (40.0-50.0) L 08/24/19 06:30 MCV 73.9 fL (80-95) L 08/24/19 06:30 MCH 22.7 pg (27.0-33.0) L 08/24/19 06:30 MCHC 30.7 g/dL (32.0-36.0) L 08/24/19 06:30 RDW 24.6 % (11.8-14.1) H 08/24/19 06:30 Plt Count 397 x1000/uL (130-400) 08/24/19 06:30 MPV 8.9 fL (8.0-11.0) 08/24/19 06:30 Sodium 141 mmol/L (136-145) 08/24/19 06:30 Potassium 4.3 mmol/L (3.5-5.1) 08/24/19 06:30 Chloride 105 mmol/L (98-107) 08/24/19 06:30 Carbon Dioxide 26.2 mmol/L (21.0-32.0) 08/24/19 06:30 Anion Gap 9.8 mmol/L (3-11) 08/24/19 06:30 BUN 42 mg/dL (7-18) H 08/24/19 06:30 Creatinine 1.34 mg/dL (0.70-1.30) H 08/24/19 06:30 Estimated GFR/1.73 m2 52.25 (mL/min/1.73m2) 08/24/19 06:30 Glucose 91 mg/dL (74-106) 08/24/19 06:30 Calcium 8.9 mg/dL (8.5-10.1) 08/24/19 06:30 Magnesium 1.9 mg/dL (1.8-2.4) 08/24/19 06:30
[2019-08-28] MEDS: Melatonin 3 MG TAB 6 MG PO (20:13)
[2019-08-28 20:35] VITALS: BP 136/78; PULSE 86; RESP 18; TEMP 35.9; O2SAT 98
[2019-08-29] MEDS: Acetaminophen 500 MG TAB 1000 MG PO ×3 (06:17→20:13)
[2019-08-29 07:01] LABS: Anion Gap 9.9 mmol/L (3-11); BUN 39 mg/dL (7-18); CO2 25.1 mmol/L (21.0-32.0); CREATININE 1.34 mg/dL (0.70-1.30); Calcium 9.1 mg/dL (8.5-10.1); Chloride 108 mmol/L (98-107); Estimated GFR 52.25 (mL/min/1.73m2); Glucose 102 mg/dL (74-106); HCT 33.2 % (40.0-50.0); Mean Corp. HGB Concentration 30.1 g/dL (32.0-36.0); Mean Corpuscular Volume 76.3 fL (80-95); Mean Platelet Volume 9.4 fL (8.0-11.0); Platelet Count 411 x1000/uL (130-400); Potassium 4.3 mmol/L (3.5-5.1); RBC 4.35 m/cumm (4.50-6.00); RBC Distribution Width 26.2 % (11.8-14.1); Sodium 143 mmol/L (136-145); White Blood Cell Count 5.78 k/cumm (4.4-10.8)
[2019-08-29 07:50] VITALS: BP 139/89; PULSE 80; RESP 17; TEMP 36.8; O2SAT 96
[2019-08-29] MEDS: Thiamine 100 MG TAB PO (08:42)
[2019-08-29] MEDS: Sucralfate 1 GM TAB PO ×4 (08:42→20:13)
[2019-08-29] MEDS: dilTIAZem 30 MG TAB PO ×3 (08:42→20:13)
[2019-08-29] MEDS: Docusate Sodium 100 MG CAP PO ×2 (08:43→20:13)
[2019-08-29] MEDS: Ferrous Sulfate 325 MG TAB PO ×2 (08:43→20:13)
[2019-08-29] MEDS: Cyanocobalamin 500 MCG TAB 1000 MCG PO (08:43)
[2019-08-29] MEDS: Tamsulosin 0.4 MG CAPCR PO (08:43)
[2019-08-29] MEDS: Pantoprazole 40 MG TABCR PO ×2 (08:43→20:12)
[2019-08-29] MEDS: DULoxetine 30 MG CAP PO (08:43)
[2019-08-29] MEDS: Gabapentin 100 MG CAP 200 MG PO ×3 (08:43→20:13)
[2019-08-29] MEDS: Multivitamin TAB 1 TAB PO (08:43)
[2019-08-29] MEDS: Ascorbic Acid 500 MG TAB PO ×2 (08:44→20:13)
[2019-08-29] MEDS: Cyclobenzaprine 10 MG TAB PO ×3 (08:44→20:13)
[2019-08-29] MEDS: Budesonide/Formoterol 160/4.5 6 GM 60 PUFF INH IH ×2 (09:03→20:13)
[2019-08-29] MEDS: Magnesium Oxide 400 MG TAB PO ×2 (10:24→20:13)
--- NOTE | 2019-08-29 11:10 | PT.INPN ---
Date of service: 08/29/19 Time of Service: 10:29 PT Notes Visit Reasons: Failure to thrive Inpatient Physical Therapy Progress Note Date: 08/29/2019 Dates of Service: 08/21/2019 through 08/29/2019 Referring Doctor: Sheridan Ndiaye NP PT Orders: PT CONSULT: Continue PT on swing bed status Precautions: Fall. Standard. Activity as tolerated. Patient Profile/Admitting Diagnosis: Patient converted to swing bed level 1 as of 08/20/2019 and is receiving continued skilled physical therapy services. Patient is a 73-year-old male with a past medical history significant for alcohol abuse and COPD who presented to the ED on 08/12/2019 with chief complaints of loose watery stools, incontinence, and able to perform self-care, right hip pain and tenderness, and mild SOB. and ongoing uncontrollable daily use of alcohol and cigarettes. Patient is diagnosed with failure to thrive, generalized weakness, poor self home care, acute kidney injury, and urinary tract infection. PMHX: Medical History Alcohol use disorder (Acute) COPD (chronic obstructive pulmonary disease) (Chronic) Smoking hx (Acute) Social History/Home Situation: Patient lives alone in an apartment with 15 steps to get in with a rail on the right going up. He was independent with all aspects of ADLs without the need for an assistive ambulatory device nor adaptive equipment although he stated that recently it has been very difficult to do so due to weakness and uncontrolled alcoholism. Current Functional Limitations: Need for assistance for all transfer front wheeled walker. Equipment Owned/DME: None but will need a FWW. Subjective: Patient is agreeable to doing one more session at the stairs tomorrow and a discharge on Saturday as agreed upon on Saturday. He reports muscle ache on R quadriceps that limited his ability to perform sit<>stand testing today. He remains worried about support services he may can have at home and understands the [facility] of the [facility] he is scheduled to have on Sunday, September 01, 2019. Objective: General Observation: Patient seen resting in bed. Bilateral TEDS on Mental Status: Alert and oriented x 4 Pain: 2-3/10 ROM: Right Upper Extremity: Shoulder Flexion WFL. Shoulder abduction WFL. Elbow flexion WFL. Wrist flexion WFL. Functional opening and closing of hand WFL. Left Upper Extremity: Shoulder Flexion WFL. Shoulder abduction WFL. Elbow flexion WFL. Wrist flexion WFL. Functional opening and closing of hand WFL. Right Lower Extremity: Hip flexion WFL. Hip abduction WFL. Knee flexion WFL. Ankle dorsiflexion WFL. Ankle plantarflexion WFL. Left Lower Extremity: Hip flexion WFL. Hip abduction WFL. Knee flexion WFL. Ankle dorsiflexion WFL. Ankle plantarflexion WFL. Strength: Right Upper Extremity: Shoulder flexors 4/5. Shoulder abductors 4/5. Elbow flexors 5/5. Elbow extensors 5/5. Commission Clerk strong. Left Upper Extremity: Shoulder flexors 4/5. Shoulder abductors 4/5. Elbow flexors 5/5. Elbow extensors 5/5. Commission Clerk strong. Right Lower Extremity: Hip flexors 4/5. Hip abductors 4/5. Knee flexors 4/5. Knee extensors 4/5. Ankle dorsiflexors 4/5. Ankle plantarflexors 4/5. Left Lower Extremity:Hip flexors 5/5. Hip abductors 5/5. Knee flexors 455. Knee extensors 5/5. Ankle dorsiflexors 5/5. Ankle plantarflexors 5/5. Sensation: Intact as to pain and pressure on bilateral lower extremities. Bed Mobility/Transfers: Rolling independent Supine to sit independent Sit to supine independent Sit to stand independent Stand to sit independent Bed to chair independent Chair to bed independent Gait: Patient is able to tolerate in room ambulation of 120 feet without an assistive device with full weight bearing on bilateral lower extremities and upper extremities independently with minimal antalgic gait on right observed towards the end of his walk. On 08/28/2019 per ROTARY DUMP OPERATOR report, patient was able to negotiate twelve 6 inch steps with right hand holding onto right rail using no assistive device. Balance: Static Sitting: Normal Dynamic Sitting: Normal Static Standing: Good Dynamic Standing: Good Special Tests: Mobility Limitations Standardized Measure [facility] AM-PAC 6 clicks Basic Mobility Inpatient Short Form: Raw Score: 23 CMS Score: 11 % deficit Informed Consent/Education: Patient instructed in purpose of PT consult and plan of care. 30-second chair rise score: 4 due to complaint of R anterior thigh muscle ache. Assessment: Patient now demonstrates baseline functional mobility level being independent with all bed mobility, transfers, and all level surface ambulation of at most 120 feet without an assistive ambulatory device. Patient however continues to report muscle ache on the right quadriceps after mobility performance which he reports responds well to resting and muscle relaxant. Patient will be going home alone and would like to perform safe and independent stair negotiation skills more consistently as he states that the stairs he has at home are more steep than the flight of steps that he has been practicing on. He is agreeable to continued skilled services tomorrow with a plan to discharge on 08/31/2019. 30-second chair rise score of 4 resulted from continued pain report on R quadriceps during testing. Patient is a 73-year-old male with a past medical history significant for alcohol abuse and COPD who presented to the ED on 08/12/2019 with chief complaints of loose watery stools, incontinence, and able to perform self-care, right hip pain and tenderness, and mild SOB, and ongoing uncontrollable daily use of alcohol and cigarettes. Patient is diagnosed with failure to thrive, generalized weakness, poor self home care, acute kidney injury, and urinary tract infection. Patient continues to present with clinical signs and symptoms consistent with current/admitting diagnoses that have resulted to mobility limitations, gait instability, generalized weakness, and impairment of motor control as demonstrated by the following impairment level findings: 1. Decreased strength to B LE major muscle groups 2. Impaired standing tolerance due to persistent muscle ache 3. 30-second chair rise score of 4 Impairments are contributing to the following functional limitations: 1. Increased fall risk Patient is assessed as a 59674 moderate complexity based on the following: History: Patient is a 73-year-old male with a past medical history significant for alcohol abuse and COPD who presented to the ED on 08/12/2019 with chief complaints of loose watery stools, incontinence, and able to perform self-care, right hip pain and tenderness, and mild SOB. Examination: Demonstrable impairment in strength, balance, and range of motion with underlying impairments and functional limitations as documented above Presentation:Evolving Decision Makin moderate complexity Goals: Goals X1 week 1. Independent gait on level surface with use of single-point cane for at least 150 feet without report of pain nor dyspnea MET. GOAL UPGRADE: Independent gait on level surface with use of single-point cane for at least 500feet without report of pain nor dyspnea to allow for independent grocery shopping and short distance community ambulation 2. Independent stair negotiation while holding onto R rail rails for at least 12 steps without report of pain nor dyspnea MET. GOAL UPGRADE: Independent stair negotiation without holding onto rail rails for at least 12 steps without report of pain nor dyspnea 3. Independent with home exercise program NOT MET 4. Good static and dynamic standing balance/tolerance MET Plan of Care/Treatment Plan: 1-2x/day, 7 days/week x 1 week. Plan of care has been reviewed with the ROTARY DUMP OPERATOR providing the service under Physical Therapy direction. Initiate Physical Therapy intervention for strengthening, bed mobility, transfers, gait, stairs, balance training, use of assistive device. DISCHARGE RECOMMENDATIONS: Patient will benefit from home health PT services in order to progress mobility level using least restrictive assistive ambulatory device, assess home safety, identify additional equipment needs, and establish a functional maintenance program that will increase ability of patient to remain at home. TREATMENT CODE/TIME: 17352 x 39 minutes beginning at 10:29 AM. Thank you very much for this referral. Franchesca Hawley PT, DPT, CLT [facility]
[2019-08-29 18:40] VITALS: BP 138/79; PULSE 70; RESP 19; TEMP 37; O2SAT 99
[2019-08-29] MEDS: Melatonin 3 MG TAB 6 MG PO (20:13)
[2019-08-29 21:42] VITALS: BP 141/97; PULSE 86; RESP 18; TEMP 36.7; O2SAT 97
[2019-08-30] MEDS: Acetaminophen 500 MG TAB 1000 MG PO ×3 (06:37→19:42)
[2019-08-30 07:40] VITALS: BP 148/87; PULSE 82; RESP 18; TEMP 36.6; O2SAT 95
[2019-08-30] MEDS: DULoxetine 30 MG CAP PO (08:19)
[2019-08-30] MEDS: Thiamine 100 MG TAB PO (08:20)
[2019-08-30] MEDS: Pantoprazole 40 MG TABCR PO ×2 (08:20→19:41)
[2019-08-30] MEDS: Cyanocobalamin 500 MCG TAB 1000 MCG PO (08:20)
[2019-08-30] MEDS: Docusate Sodium 100 MG CAP PO ×2 (08:20→19:43)
[2019-08-30] MEDS: Ferrous Sulfate 325 MG TAB PO ×2 (08:20→19:44)
[2019-08-30] MEDS: Ascorbic Acid 500 MG TAB PO ×2 (08:20→19:43)
[2019-08-30] MEDS: Multivitamin TAB 1 TAB PO (08:20)
[2019-08-30] MEDS: Tamsulosin 0.4 MG CAPCR PO (08:21)
[2019-08-30] MEDS: dilTIAZem 30 MG TAB PO ×3 (08:21→19:44)
[2019-08-30] MEDS: Cyclobenzaprine 10 MG TAB PO ×3 (08:21→19:43)
[2019-08-30] MEDS: Gabapentin 100 MG CAP 200 MG PO ×3 (08:21→19:41)
[2019-08-30] MEDS: Sucralfate 1 GM TAB PO ×4 (08:21→19:44)
[2019-08-30] MEDS: Budesonide/Formoterol 160/4.5 6 GM 60 PUFF INH IH ×2 (08:29→19:45)
--- NOTE | 2019-08-30 09:55 | CMPROGNOTE_ITS ---
- If Service Date Differs Date of service: 08/30/19 Time of Service: 09:55 Care Management Progress Note S/O: CM met with Khoi at the bedside he is engaged with CM during assessment. He has questions related to discharge plan and [facility] CM provided appointment date and time and put it on his white board. He will go down by [facility] CM will need to confirm ride through [facility]. Khoi's appointment is 09/01/19 at 1030 at the [facility]. CM updated pharmacy information in patients chart and contacted [facility] in [facility] to request blister packed medications. CM educated the patient on what to expect from Blister packed medications and Khoi agrees with the plan. Provider will send all the prescriptions today and CM faxed insurance and demographics to pharmacy. Khoi states he feels positive about returning home, he states he is feeling better and that he was able to do stairs with PT. Khoi will benefit from ongoing engagement with reading coach, meals on wheels and [facility] supports. He will have new home health nursing, PT, OT and TRUCK DRIVER SUPERVISOR to follow up and will need a face to face. A: Khoi is a 74 year old male admitted with Failure to Thrive with an extensive history of alcohol dependency. P: Khoi will be discharged on Saturday, [facility] his scheduled appointment 09/01/19 at 1030. Medications will be blistered packed and he will have new services through home health including nursing, PT, OT and TRUCK DRIVER SUPERVISOR. [facility] and then home.
[2019-08-30] MEDS: Magnesium Oxide 400 MG TAB PO (10:04)
--- NOTE | 2019-08-30 10:04 | PT.INTREAT ---
Date of service: 08/30/19 PT Notes Visit Reasons: Failure to thrive Inpatient Physical Therapy Treatment Note [facility] Date: 08/30/19 SUBJECTIVE: Rufino states that he is doing ok. He was agreeable to going for a walk and stair negotiation. OBJECTIVE: [] BED MOBILITY/TRANSFERS Supine-sit: I Sit-supine: I Sit-stand: I Stand-sit: I GAIT Assistive Device: no AD Weight bearing: full Assist: S Distance: approx. 120' x2 Deviation: LOB x1 but was able to use wall to correct himself. STAIRS: negotiated a full flight of steps (12, 6 steps) using handrail in right hand and std cane in left hand. verbal cues occasionally given for proper gait sequencing. ASSESSMENT: tolerated session well despite c/o right LE pain. He was safe and independent with his functional mvmt today. PLAN: continue towards established goals TREATMENT CODE/TIME: 20 min. [id number]
[2019-08-30 15:30] VITALS: BP 146/87; PULSE 85; RESP 17; TEMP 36.4; O2SAT 95
[2019-08-30 18:34] VITALS: BP 123/82; PULSE 84; RESP 18; TEMP 36.5; O2SAT 96
[2019-08-30] MEDS: Melatonin 3 MG TAB 6 MG PO (19:43)
[2019-08-31] MEDS: Acetaminophen 500 MG TAB 1000 MG PO ×3 (06:44→19:46)
[2019-08-31] MEDS: Sucralfate 1 GM TAB PO ×4 (06:45→19:48)
[2019-08-31] MEDS: Pantoprazole 40 MG TABCR PO ×2 (06:45→19:47)
[2019-08-31 07:23] VITALS: BP 130/71; PULSE 85; RESP 17; TEMP 37.1; O2SAT 95
[2019-08-31] MEDS: Budesonide/Formoterol 160/4.5 6 GM 60 PUFF INH IH ×2 (08:10→19:48)
[2019-08-31] MEDS: dilTIAZem 30 MG TAB PO ×3 (08:25→19:46)
[2019-08-31] MEDS: Tamsulosin 0.4 MG CAPCR PO (08:26)
[2019-08-31] MEDS: Gabapentin 100 MG CAP 200 MG PO ×3 (08:26→19:47)
[2019-08-31] MEDS: Ferrous Sulfate 325 MG TAB PO ×2 (08:26→19:47)
[2019-08-31] MEDS: Multivitamin TAB 1 TAB PO (08:26)
[2019-08-31] MEDS: Cyanocobalamin 500 MCG TAB 1000 MCG PO (08:26)
[2019-08-31] MEDS: Cyclobenzaprine 10 MG TAB PO ×3 (08:26→19:48)
[2019-08-31] MEDS: DULoxetine 30 MG CAP PO (08:26)
[2019-08-31] MEDS: Ascorbic Acid 500 MG TAB PO ×2 (08:26→19:48)
[2019-08-31] MEDS: Docusate Sodium 100 MG CAP PO ×2 (08:26→19:47)
[2019-08-31] MEDS: Thiamine 100 MG TAB PO (08:26)
[2019-08-31] MEDS: Magnesium Oxide 400 MG TAB PO (10:06)
--- NOTE | 2019-08-31 12:47 | INDS_ITS ---
Date of service: 08/31/19 Time of Service: 09:43 PT Notes Visit Reasons: Failure to thrive Physical Therapy Inpatient Initial Evaluation Date: 08/31/2019 Referring Doctor: Sheridan Ndiaye NP PT Orders: PT CONSULT: Continue PT on swing bed status Precautions: Fall. Standard. Activity as tolerated. Patient Profile/Admitting Diagnosis: Patient is a 73-year-old male with a past medical history significant for alcohol abuse and COPD who presented to the ED on 08/12/2019 with chief complaints of loose watery stools, incontinence, and able to perform self-care, right hip pain and tenderness, and mild SOB. and ongoing uncontrollable daily use of alcohol and cigarettes. Patient is diagnosed with failure to thrive, generalized weakness, poor self home care, acute kidney injury, and urinary tract infection. PMHX: Medical History Alcohol use disorder (Acute) COPD (chronic obstructive pulmonary disease) (Chronic) Smoking hx (Acute) Social History/Home Situation: Patient lives alone in an apartment with 15 steps to get in with a rail on the right going up. He was independent with all aspects of ADLs without the need for an assistive ambulatory device nor adaptive equipment although he stated that recently it has been very difficult to do so due to weakness and uncontrolled alcoholism. Current Functional Limitations: Need for assistance for all transfer front wheeled walker. Equipment Owned/DME: None but will need a FWW. Subjective: No new complaints. He hopes to go home tomorrow after his appointment at the [facility]. He continues to be agreeable to having HH PT/OT/SW come in once he is discharged.l Objective: General Observation: Patient seen resting in bed. Bilateral TEDS on. Mental Status: Alert and oriented x 4 Pain: 1/10 ROM: Right Upper Extremity: Shoulder Flexion WFL. Shoulder abduction WFL. Elbow flexion WFL. Wrist flexion WFL. Functional opening and closing of hand WFL. Left Upper Extremity: Shoulder Flexion WFL. Shoulder abduction WFL. Elbow flexion WFL. Wrist flexion WFL. Functional opening and closing of hand WFL. Right Lower Extremity: Hip flexion WFL. Hip abduction WFL. Knee flexion WFL. Ankle dorsiflexion WFL. Ankle plantarflexion WFL. Left Lower Extremity: Hip flexion WFL. Hip abduction WFL. Knee flexion WFL. Ankle dorsiflexion WFL. Ankle plantarflexion WFL. Strength: Right Upper Extremity: Shoulder flexors 4/5. Shoulder abductors 4/5. Elbow flexors 4/5. Elbow extensors 4/5. Tin Worker strong. Left Upper Extremity: Shoulder flexors 4/5. Shoulder abductors 4/5. Elbow flexors 4/5. Elbow extensors 4/5. Tin Worker strong. Right Lower Extremity: Hip flexors 4/5. Hip abductors 4/5. Knee flexors 4/5. Kne e extensors 4/5. Ankle dorsiflexors 4/5. Ankle plantarflexors 4/5. Left Lower Extremity:Hip flexors 5/5. Hip abductors 5/5. Knee flexors 5/5. Knee extensors 5/5. Ankle dorsiflexors 5/5. Ankle plantarflexors 5/5. Sensation: Intact as to pain and pressure on bilateral lower extremities. Bed Mobility/Transfers: Rolling independent Supine to sit independent Sit to supine independent Sit to stand independent Stand to sit independent Bed to chair independent Chair to bed independent Gait: Patient is able to tolerate in room ambulation of 120 feet +30 feet +30 feet using a front wheeled walker with full weight bearing on bilateral lower extremities and upper extremities independently. Gait speed now at baseline. Patient is also able to tolerate twelve 6-inch steps while holding onto one rail (rail on R going up) and whi;le using a cane on the other hand with a step to gait pattern independently. Balance: Static Sitting: Normal Dynamic Sitting: Normal Static Standing: Good Dynamic Standing: Good Special Tests: Mobility Limitations Standardized Measure [facility] AM-PAC 6 clicks Basic Mobility Inpatient Short Form: Raw Score: 24 CMS Score: 0% deficit Assessment: Patient is a 73-year-old male with a past medical history significant for alcohol abuse and COPD who presented to the ED on 08/12/2019 with chief complaints of loose watery stools, incontinence, and able to perform self-care, right hip pain and tenderness, and mild SOB, and ongoing uncontrollable daily use of alcohol and cigarettes. Patient is diagnosed with failure to thrive, generalized weakness, poor self home care, acute kidney injury, and urinary tract infection. Patient achieved significant improvements in terms of strength, pain tolerance, and mobility level during this episode of care. He is advised to continue with PT services in order to maximize safety and independence with 15 steep steps at home. HEP provided for patient as well. Goals: Goals X1 week 1. Independent gait on level surface with use of single-point cane for at least 150 feet without report of pain nor dyspnea MET 2. Independent stair negotiation while holding onto bilateral rails for at least 15 steps without report of pain nor dyspnea MET 3. Independent with home exercise program MET 4. Good static and dynamic standing balance/tolerance MET DISCHARGE RECOMMENDATIONS: Patient will benefit from chcf facility placement in order to progress mobility level, strength, and balance in preparation for a safe discharge to home. TREATMENT CODE/TIME: 89694 x 18 minutes beginning at 9:43 AM. Thank you very much for this referral. Franchesca Hawley PT, DPT, CLT [facility]
--- NOTE | 2019-08-31 14:36 | W.PM.DS.N ---
Date of service: 08/31/19 Time of Service: 14:36 DS: Diagnosis Discharge Diagnosis (1) Atrial fibrillation: Start date: 08/31/19 Start time: 14:37 Status: Chronic Asessment and Plan: Controlled with Cardizem. Not anticoagulated due to recurrent GI bleed and alcohol abuse. (2) Alcohol use disorder: Start date: 08/31/19 Start time: 14:38 Status: Suspected Asessment and Plan: Continue encouraged abstenince (3) COPD (chronic obstructive pulmonary disease): Start date: 08/31/19 Start time: 14:38 Status: Chronic Asessment and Plan: Stable (4) Depression: Start date: 08/31/19 Start time: 14:38 Status: Chronic Asessment and Plan: Cymbalta (5) Failure to thrive: Start date: 08/31/19 Start time: 14:39 Status: Acute Asessment and Plan: PT/OT (6) GI bleed: Start date: 08/31/19 Start time: 14:39 Status: Chronic Asessment and Plan: When in acute status received one unit blood. No hemepositive stools/ (7) Radicular pain of right lower extremity: Status: Acute (8) Insomnia: Status: Acute (9) Renal insufficiency: Status: Chronic (10) DVT prophylaxis: Status: Acute (11) Discharge planning issues: Status: Acute Discharge Plan Disposition Patient Disposition: HOME Condition: Good Discharge Details Reason For Visit: FTT Admit Date/Time: 08/20/19 14:41 Admit Provider: Ca Arnold Attending Provider: Ca Arnold Primary Care Provider: Antonio Flood Hospital Course Hospital Course: 74 year old man with a past medical history significant for alcohol abuse, COPD, current smoker, depression and RLE radicular pain who was admitted to acute status on 08/12/19 with failure to thrive, poor self care and RLE pain who went on to be newly diagnosed with atrial fibrillation. During hospitalization he was treated for a UTI and concurrent GI bleed receiving one unit PRBC. When medical stable he was placed in swing bed status after being deemed unsafe for home discharge, as he was not accepted to rehab. He continued PT while in swing bed status, regaining strength and independence. He is being discharged to return home to his apartment. He denies CP, SOB, N/V/D. Home Meds and New Rx's Prescriptions: New ipratropium-albuterol 0.5 mg-3 mg(2.5 mg base)/3 mL Solution For Nebulization 3 ml UPD Q6H PRN PRN (Reason: shortness of breath or wheezing) Qty: 180 RF: 0 acetaminophen [Mapap Extra Strength] 500 mg Tablet 1,000 mg PO Q8H Qty: 90 RF: 0 ascorbic acid (vitamin C) [Vitamin C] 500 mg Tablet 500 mg PO BID Qty: 60 RF: 0 cyclobenzaprine 10 mg Tablet 10 mg PO TID Qty: 90 RF: 0 sucralfate 1 gram Tablet 1 g PO AC & HS Qty: 120 RF: 0 magnesium oxide 400 mg (241.3 mg magnesium) Tablet 400 mg PO BID@1000,2200 Qty: 60 RF: 0 ferrous sulfate 325 mg (65 mg iron) Tablet 325 mg PO BID Qty: 60 RF: 0 docusate sodium [Colace] 100 mg Capsule 100 mg PO BID Qty: 60 RF: 0 gabapentin 100 mg Capsule 200 mg PO TID Qty: 180 RF: 0 diltiazem HCl [Cardizem] 30 mg Tablet 30 mg PO TID Qty: 90 RF: 0 duloxetine [Cymbalta] 30 mg Capsule,Delayed Release(Dr/Ec) 30 mg PO DAILY Qty: 30 RF: 0 Continued multivitamin [Multiple Vitamins] Tablet 1 tab PO DAILY Qty: 30 RF: 0 Nicotrol 10 mg Cartridge 30 cartridge inhalation DIRECTED PRNQty: 10 RF: 0 cyanocobalamin (vitamin B-12) [Vitamin B-12] 500 mcg Tablet 1,000 mcg PO DAILY Qty: 60 RF: 0 tamsulosin 0.4 mg Capsule 0.4 mg PO DAILY Qty: 30 RF: 0 pantoprazole 40 mg Tablet,Delayed Release (Dr/Ec) 40 mg PO BID@729,1999 Qty: 60 RF: 0 Symbicort 160-4.5 mcg/actuation Hfa Aerosol Inhaler 2 puff inhalation BID Qty: 10.2 RF: 0 thiamine mononitrate (vit B1) [Vitamin B-1 (mononitrate)] 100 mg Tablet 100 mg PO DAILY Qty: 30 RF: 0 Changed melatonin 3 mg Tablet Extended Release 3 - 6 mg PO HS PRN PRN (Reason: Insomnia) Qty: 60 RF: 0 Discontinued alum-mag hydroxide-simeth [Mag-Al Plus] 200-200-20 mg/5 mL Suspension 30 ml PO Q2H PRN PRNQty: 120 RF: 0 magnesium chloride [Mag 64] 64 mg Tablet,Delayed Release (Dr/Ec) 128 mg PO BID Qty: 0 RF: 0 bisacodyl [Dulcolax (bisacodyl)] 10 mg Suppository 10 mg [place] RF: 0 Discharge Instructions Instructions: Atrial Fibrillation (GEN), Urinary Tract Infection in Women (GEN), COPD (Chronic Obstructive Pulmonary Disease) (GEN), How Your Lungs Work (GEN) Stand Alone Forms: Nursing Discharge Form Referrals: Desirae Kulkarni NP [NURSE PRACTITIONER] - Raeann Parham MD [ [facility] STAFF PHYSICIAN] - (Please call Dr. Parham's office on Friday 08/31 to arrange outpatient colonoscopy. [phone].) Antonio Flood [Primary Care Provider] - ([facility] will call you with a follow up appointment. ) Activity:: Activity as Tolerated Equipment/Supplies:: No Equipment Needed Diet:: Normal Diet Discharge Orders Discharge Orders: Discharge Order (Routine); Ordered 09/01/19 Ordered By: Desirae Kulkarni DS: Summary Status at Discharge Functional status at discharge: independent ambulation Overall status at discharge: patient is back to baseline Mental Status: mental status grossly normal Speech and Movement: speech and movement normal Mood: congruent mood Affect: normal affect Exam Narrative Exam Narrative: Const: Pleasant elderly male, tentative and talking, sitting up on side of bed, excited about having no pain and being able to ambulate. HENMT: no lymphedema, normal cephalic Eyes: PERRLA, EOMI NECK: No JVD, or goiter Chest: Equal symmetric Resp: Even, unlabored, CTAB Cardio: RRR, no murmur Skin: intact Neuro: AA0x3 Psych Mental Status: mental status grossly normal Speech and Movement: speech and movement normal Mood: congruent mood Affect: normal affect DS: Data Vitals/I&O Vitals and I&O: Vital Signs Temperature 37.1 C 08/31/19 07:23 Temperature Source Tympanic 08/31/19 07:23 Pulse 85 08/31/19 07:23 Pulse Rhythm Irregular 08/31/19 08:30 Respiratory Rate 17 08/31/19 07:23 Respiratory Effort Non-Labored 08/31/19 08:30 Respiratory Depth Normal 08/31/19 08:30 Respiratory Pattern Normal 08/31/19 08:30 Blood Pressure 130/71 08/31/19 07:23 Pulse Oximetry 95 08/31/19 07:23 Oxygen Delivery Method Room Air 08/31/19 07:23 Oxygen Flow Rate 0 08/31/19 07:23 Pain Level 0 08/31/19 07:23 Comment 08/25/19 11:11 Intake & Output 08/30/19 08/31/19 08/31/19 23:59 11:59 23:59 Intake Total 480 / 720 240 / 480 240 / 480 Balance 480 / 290 240 / 480 240 / 480 Intake: Oral 480 / 720 240 / 480 240 / 480 Other: Urine Color Yellow Urine Appearance Clear Clear Comment voids in toilet independently. reports voiding earlier this am. Reports no concers at this time. Voiding Methods Toilet Toilet PFSH Medical History Alcohol use disorder (Suspected) Cooper's esophagus (Acute) COPD (chronic obstructive pulmonary disease) (Chronic) Smoking hx (Acute) Surgical History H/O esophagogastroduodenoscopy (Chronic ~04/2019) Social History Smoking/Tobacco Use Status: Current every day Tobacco Type: cigarettes Years smoked: 50 Alcohol Intake: current Alcohol Intake frequency: 3 or more drinks per day Drug use: Never Substance use type: does not use Do you feel safe at home: Yes Do you feel safe in your relationship?: Yes Additional Social history: Lives alone in apartment in [place] for past ~6 years, closest family brother Owen in [place], [place] 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
[2019-08-31 14:56] VITALS: BP 107/56; PULSE 74; RESP 18; TEMP 36.9; O2SAT 96
--- NOTE | 2019-08-31 17:31 | CMPROGNOTE_ITS ---
Care Management Progress Note New orders for [facility] RN/PT/OT/DIRECTOR MEDICAL will need to be faxed upon discharge to [facility]. Discharge forms for Swing Bed will need to be signed prior to Khoi leaving in the morning. Confirm time of transport with RCT. Confirm with [facility] that medicines have been blister packed. Khoi Calero Discharge Plan: 09/01/19 [facility] Cosmetology Instructor: Felisa Terrell [phone]: helps to coordinate in home services Including homemaker supports and sobriety. [address] [place] [address] Discharge summary faxed to [facility]: F# [phone] [place] [facility]: Options Counselor: Mary Dodge Meals On Wheels CM spoke with Mary, and faxed referral to [facility] for OC and MOW. RCT Transportation [phone], call with monthly medical appointments. CM confirmed transport via W/C Van to [facility] for an hour long appointment and then transport home. CM will confirm RCT arrival time for 1030 appt at [place] 09/01/19. [facility] In home skilled services and home specialist supports [phone] [facility] Dining Chair Seat Cushion Trimmer: connecting to sobriety supports [phone] [facility] www.[email or web address] [address] [place] [address] Medications will be blister packed: CM spoke with [facility] Pharmacist to confirm and faxed discharge summary to determine timing of medications. Khoi will discuss further medications being filled through the [facility] with Felisa Terrell at his appointment tomorrow. Khoi will be discharged in the morning to attend his PCP appointment at the [facility] in [place]. RCT will transport him to the appointment as well as home afterward, CM will request RCT stop at [facility]'s in [facility] on the way home. [facility] will blister pack medications. CM provided discharge folder to Khoi with additional resources, and all contact information listed above with services and contacts for completed referrals listed. CM reviewed discharge plan and encouraged Khoi to call CM department with any further issues, or to provide updates on how he is doing. Khoi will return home with multiple referrals as listed above, including new VNA orders through [facility] for RN/PT/OT/DIRECTOR MEDICAL. He will transport via [facility] and [facility] at [facility].
--- NOTE | 2019-08-31 17:31 | PDOC.CMPRO ---
Care Management Progress Note New orders for [facility] RN/PT/OT/RETAIL SALESPERSON will need to be faxed upon discharge to [facility]. Discharge forms for Swing Bed will need to be signed prior to Khoi leaving in the morning. Confirm time of transport with RCT. Confirm with [facility] that medicines have been blister packed. Khoi Calero Discharge Plan: 09/01/19 [facility] Human Resources Vice President: Felisa Terrell [phone]: helps to coordinate in home services Including homemaker supports and sobriety. [address] [place] [address] Discharge summary faxed to [place]: F# [phone] [place] On [facility]: Options Counselor: Mary Dodge Meals On Wheels CM spoke with Mary, and faxed referral to [facility] for OC and MOW. [facility] Transportation [phone], call with monthly medical appointments. CM confirmed transport via W/C Van to [facility] for an hour long appointment and then transport home. CM will confirm RCT arrival time for 1030 appt at [place] 09/01/19. [facility] In home skilled services and home care rn supports [phone] [facility] Mold Stamper: connecting to sobriety supports [phone] [facility] www[email or web address] [address] [place] [address] Medications will be blister packed: CM spoke with [facility] Pharmacist to confirm and faxed discharge summary to determine timing of medications. Khoi will discuss further medications being filled through the [facility] with Felisa Terrell at his appointment tomorrow. Khoi will be discharged in the morning to attend his PCP appointment at the [facility] in [place]. RCT will transport him to the appointment as well as home afterward, CM will request RCT stop at [facility] in [facility] on the way home. [facility] will blister pack medications. CM provided discharge folder to Khoi with additional resources, and all contact information listed above with services and contacts for completed referrals listed. CM reviewed discharge plan and encouraged Khoi to call CM department with any further issues, or to provide updates on how he is doing. Khoi will return home with multiple referrals as listed above, including new VNA orders through [facility] for RN/PT/OT/RETAIL SALESPERSON. He will transport via [facility], [facility] and collect his prescriptions at [facility].
--- NOTE | 2019-08-31 17:57 | PDOC.HHF2F ---
Home Health Certification Home Health Certification: 1. Encounter Date and Reason I certify that NILSA BAUGH was seen by Desirae Kulkarni on 08/31/19 and that I had a [id number] encounter with this patient that meets the physician face to face encounter requirements. 2. Clinical Findings Supporting Skilled Need and Homebound Status I certify that home health services are medically necessary, include either intermittent shelter and/or physical/speech therapy, and that this patient is homebound in that absences from the home require considerable and taxing effort and are infrequent or of short duration, or are attributable to the need to receive medical care. [X] (a) Attached documentation from encounter provides clinical findings supporting skilled need and homebound status (including what assistance patient requires to leave the home). The encounter with the patient was in whole, or in part, for the following medical condition, which is the primary reason for home health care: FTT Residential: Patient would benefit from Nursing services, MANAGER HOSPITALITY for continued care with meds and services. Physical Therapy: Patient would benefit from PT and OT for increased strength and balance Speech Therapy: Homebound: 3. Certification and Authentication I certify that I composed the above information based on my clinical judgement relating to this patient's medical condition and, if applicable, clinical findings communicated to me by the NPP or inpatient physician who performed the Home Health Referral. All further orders will be obtained through (Community Based Physician - PCP)
[2019-08-31] MEDS: Melatonin 3 MG TAB 6 MG PO (19:45)
[2019-08-31 20:13] VITALS: BP 112/73; PULSE 76; RESP 17; TEMP 36.8; O2SAT 95
[2019-09-01] MEDS: Pantoprazole 40 MG TABCR PO (07:47)
[2019-09-01] MEDS: Sucralfate 1 GM TAB PO (07:47)
[2019-09-01 07:50] VITALS: BP 116/83; PULSE 48; RESP 18; TEMP 36.3; O2SAT 96
[2019-09-01] MEDS: Budesonide/Formoterol 160/4.5 6 GM 60 PUFF INH IH (07:56)
[2019-09-01] MEDS: Ascorbic Acid 500 MG TAB PO (08:20)
[2019-09-01] MEDS: Docusate Sodium 100 MG CAP PO (08:20)
[2019-09-01] MEDS: DULoxetine 30 MG CAP PO (08:20)
[2019-09-01] MEDS: Gabapentin 100 MG CAP 200 MG PO (08:20)
[2019-09-01] MEDS: Cyanocobalamin 500 MCG TAB 1000 MCG PO (08:20)
[2019-09-01] MEDS: Thiamine 100 MG TAB PO (08:20)
[2019-09-01] MEDS: Cyclobenzaprine 10 MG TAB PO (08:20)
[2019-09-01] MEDS: Multivitamin TAB 1 TAB PO (08:20)
[2019-09-01] MEDS: dilTIAZem 30 MG TAB PO (08:20)
[2019-09-01] MEDS: Ferrous Sulfate 325 MG TAB PO (08:20)
[2019-09-01] MEDS: Tamsulosin 0.4 MG CAPCR PO (08:20)
--- NOTE | 2019-09-01 15:31 | CMDISCH_ITS ---
- If Service Date Differs Date of service: 09/01/19 Time of Service: 15:31 LACE Index Scoring Tool - Questions: Length of Stay (in days): 14 or more Acuity (Admit via E.D.?): Yes Comorbidities: Chronic Pulmonary Disease, Liver or Renal Disease E.D. Visits: 2 - Answers: Total Score: 17 Risk of Readmission: High Risk Care Management Discharge Reason for Hospitalization: Atrial fibrillation Discharge Plan: Khoi Abdias. Discharge Plan: 09/01/19. [facility]. . Custom Marine Canvas Fabricator: Felisa Terrell [phone]: helps to coordinate in home services. Including homemaker supports and sobriety. [address] [place] [address]. Discharge summary faxed to MD: Swathi# [phone]. . [place] On Aging: Options Counselor: Mary Dodge. . Meals On Wheels. CM spoke with Mary, and faxed referral to [facility] for OC and MOW. [facility] Transportation. [phone], call with monthly medical appointments. CM confirmed transport via W/C Van to [facility] for an hour long appointment and then transport home. CM confirmed RCT arrival time at 9:45 for 1030 appt at [place] 09/01/19.RCT to bring Khoi to [facility] to cotton picking machine operator meds on way back to his apartment. [facility]. In home skilled services and tourist home keeper supports. [phone]. CM confirmed start date of 09/02/19. [facility] [place]. Copy Worker: connecting to sobriety supports. [phone]. [employer]. [email or web address]. [address] [place] [address]. . Medications will be blister packed: CM spoke with [employer] Pharmacist to confirm and faxed discharge summary to determine timing of medications. Khoi will discuss further medications being filled through the [facility] with Felisa Terrell. Khoi will be discharged today to attend his PCP appointment at the [facility] in [place]. RCT will transport him to the appointment as well as home afterward. CM requested RCT stop at [facility] in [facility] on the way home. [facility]'s will blister pack medications. [facility] provided discharge folder to Khoi with additional resources, and all contact information listed above with services and contacts for completed referrals listed. CM reviewed discharge plan and encouraged Khoi to call CM department with any further issues, or to provide updates on how he is doing. Khoi will return home with multiple referrals as listed above, including new VNA orders through [facility] for RN/PT/OT/DIRECTOR IMMUNOLOGY. He will transport via [facility], [facility] and [facility] at [facility]. Patient/Family Education Needs: Discharge plan, limitations, follow up plan and Ask Me Three.
--- NOTE | 2019-09-01 15:31 | PDOC.CMDIS ---
- If Service Date Differs Date of service: 09/01/19 Time of Service: 15:31 LACE Index Scoring Tool - Questions: Length of Stay (in days): 14 or more Acuity (Admit via E.D.?): Yes Comorbidities: Chronic Pulmonary Disease, Liver or Renal Disease E.D. Visits: 2 - Answers: Total Score: 17 Risk of Readmission: High Risk Care Management Discharge Reason for Hospitalization: Atrial fibrillation Discharge Plan: Khoi Abdias. Discharge Plan: 09/01/19. [facility]. . Synchronizer: Felisa Terrell [phone]: helps to coordinate in home services. Including homemaker supports and sobriety. [address] [place] [address]. Discharge summary faxed to [place]: Swathi# [phone]. . [facility]: Options Counselor: Mary Dodge. . [facility] Wheels. CM spoke with Mary, and faxed referral to [facility] for OC and MOW. [facility]. [phone], call with monthly medical appointments. CM confirmed transport via W/C Van to [facility] for an hour long appointment and then transport home. CM confirmed RCT arrival time at 9:45 for 1030 appt at [place] 09/01/19.RCT to bring Khoi to [facility] to picker packer meds on way back to his apartment. [facility]. In home skilled services and home insurance agent supports. [phone]. CM confirmed start date of 09/02/19. [facility] [place]. Manager Of Purchasing: connecting to sobriety supports. [phone]. [employer]. [email or web address]. [address] [place] [id number]. . Medications will be blister packed: CM spoke with [employer] Pharmacist to confirm and faxed discharge summary to determine timing of medications. Khoi will discuss further medications being filled through the [place] with Felisa Terrell. Khoi will be discharged today to attend his PCP appointment at the [place] in [place]. [facility] will transport him to the appointment as well as home afterward. CM requested RCT stop at [facility] in [facility] on the way home. [facility] will blister pack medications. [facility] provided discharge folder to Khoi with additional resources, and all contact information listed above with services and contacts for completed referrals listed. CM reviewed discharge plan and encouraged Khoi to call CM department with any further issues, or to provide updates on how he is doing. Khoi will return home with multiple referrals as listed above, including new VNA orders through [facility] for RN/PT/OT/MEDICAL OFFICE COORDINATOR. [facility] will transport via [facility]. Patient/Family Education Needs: Discharge plan, limitations, follow up plan and Ask Me Three.
== END 2019-09-01 09:26 | disposition home or self-care (01) | DRG 641 ==
PROVIDERS: Family Medicine; Nurse Practitioner; Admitting Provider Internal Medicine; PCP Family Medicine; Visit Provider Internal Medicine
DX: R62.7 Adult failure to thrive (principal); K92.2 Gastrointestinal hemorrhage, unspecified; I48.91 Unspecified atrial fibrillation; J44.9 Chronic obstructive pulmonary disease, unspecified; F17.210 Nicotine dependence, cigarettes, uncomplicated; F10.10 Alcohol abuse, uncomplicated; F32.9 Major depressive disorder, single episode, unspecified; M54.10 Radiculopathy, site unspecified; G47.00 Insomnia, unspecified; N18.9 Chronic kidney disease, unspecified
CPT/HCPCS: 36415; 80048; 85027; 94640; 97110; 97162; 97530; 99239; 99305; 99308; 99316; 83735; 85014; 85018

== ENCOUNTER 2020-07-30 10:34 | Inpatient (IN) | payer OTHER, SELFPAY ==
[2020-07-30] VITALS (44 sets, daily range): BP systolic 94–133; BP diastolic 56–78; PULSE 60–112; RESP 1–23; TEMP 35.5–36.9; O2SAT 92–100
--- NOTE | 2020-07-30 11:00 | DI.RAD_ITS ---
EXAM: XR PORTABLE CHEST AP CLINICAL HISTORY: COPD, shortness of breath TECHNIQUE: 2D digital imaging was performed. COMPARISON: CR XR CHEST 2V PA LATERAL from 08/12/2019 FINDINGS: MEDIASTINUM: Normal. HEART: Normal. PULMONARY VASCULATURE: Normal. LUNGS: Clear. PLEURAL SPACE: No pleural effusion or pneumothorax. BONE:Within normal limits for the patient's age. OTHER FINDINGS:Normal. IMPRESSION: No acute pulmonary findings. DATA REPOSITORY: RADIATION DOSE DELIVERED:
--- NOTE | 2020-07-30 11:13 | ED.GENADUL_ITS ---
Discharge Plan Discharge Details Chief Complaint: SOB Primary Care Provider: Antonio Flood ED Provider: Khadar Richards Home Meds and New Rx's Prescriptions: No Action ipratropium-albuterol 0.5 mg-3 mg(2.5 mg base)/3 mL Solution For Nebulization 3 ml UPD Q6H PRN PRN (Reason: shortness of breath or wheezing) Qty: 180 RF: 0 acetaminophen [Mapap Extra Strength] 500 mg Tablet 1,000 mg PO Q8H Qty: 90 RF: 0 ascorbic acid (vitamin C) [Vitamin C] 500 mg Tablet 500 mg PO BID Qty: 60 RF: 0 cyclobenzaprine 10 mg Tablet 10 mg PO TID Qty: 90 RF: 0 sucralfate 1 gram Tablet 1 g PO AC & HS Qty: 120 RF: 0 magnesium oxide 400 mg (241.3 mg magnesium) Tablet 400 mg PO BID@1000,2200 Qty: 60 RF: 0 ferrous sulfate 325 mg (65 mg iron) Tablet 325 mg PO BID Qty: 60 RF: 0 docusate sodium [Colace] 100 mg Capsule 100 mg PO BID Qty: 60 RF: 0 gabapentin 100 mg Capsule 200 mg PO TID Qty: 180 RF: 0 diltiazem HCl [Cardizem] 30 mg Tablet 30 mg PO TID Qty: 90 RF: 0 duloxetine [Cymbalta] 30 mg Capsule,Delayed Release(Dr/Ec) 30 mg PO DAILY Qty: 30 RF: 0 multivitamin [Multiple Vitamins] Tablet 1 tab PO DAILY Qty: 30 RF: 0 Nicotrol 10 mg Cartridge 30 cartridge inhalation DIRECTED PRNQty: 10 RF: 0 cyanocobalamin (vitamin B-12) [Vitamin B-12] 500 mcg Tablet 1,000 mcg PO DAILY Qty: 60 RF: 0 tamsulosin 0.4 mg Capsule 0.4 mg PO DAILY Qty: 30 RF: 0 pantoprazole 40 mg Tablet,Delayed Release (Dr/Ec) 40 mg PO BID@0730,1999 Qty: 60 RF: 0 melatonin 3 mg Tablet Extended Release 3 - 6 mg PO HS PRN PRN (Reason: Insomnia) Qty: 60 RF: 0 Symbicort 160-4.5 mcg/actuation Hfa Aerosol Inhaler 2 puff inhalation BID Qty: 10.2 RF: 0 thiamine mononitrate (vit B1) [Vitamin B-1 (mononitrate)] 100 mg Tablet 100 mg PO DAILY Qty: 30 RF: 0 Medical Decision Making 75-year-old male with a history of tobacco and alcohol use, atrial fibrillation, who presents from home complaining of going to the bank and feeling abruptly anxious and short of breath, for which EMS was called. His symptoms did seem to improve. He states has been weak, deconditioned, not taking his medications properly, not able to care for himself. On exam, he has some mild irregular tachycardia and diminished breath sounds. He is oxygenating well on room air. His rectal exam reveals guaiac positive brown stool. IV access established, patient given a beta agonist inhaled treatment, referred for chest x-ray, laboratory testing. Laboratory: CBC with white count 6, hematocrit 25, MCV 79, platelets 199. Patient's troponin is negative. He shows worsening renal function with a BUN of 45, creatinine 2.0. Sodium 133, magnesium 1.2, potassium 4.3, anion gap of 16.9. LFTs increased AST 194, ALT 75, total bili 1.3. BNP is 1129. Chest x- ray without focal consolidation or effusion. With the patient's mildly elevated heart rate, history of atrial fibrillation as well as medical noncompliance, he may have been uncontrolled atrial fibrillation for some time with resultant right sided congestion. His poor medical compliance and ongoing use of alcohol which is at risk for GI bleed. Will order PPI and discuss administration of 1 unit packed red blood cells with hospitalist team, for which I have consented the patient. HPI General Mode of arrival: EMS . Date/Time Provider Initiated Documentation: 07/30/20 10:35 . Limitations to Documentation: no limitations . Information obtained by: patient and EMS . History of Present Illness 75 year old M presents to the emergency department with the chief complaint of I cannot care for myself, shortness of breath, described as moderate, and is localized to the chest. Patient reports no radiation. Patient started experiencing this minute(s) and it has been now resolved. No relieving factors improve symptom(s), No exacerbating factors reported . Patient notes loss of appetite; denies chest pain and fever/chills. Patient did receive the following treatments prior to arrival, none Related Data Home Medications Medication Instructions Recorded Confirmed Nicotrol 30 cartridge INHALATION 08/30/19 DIRECTED PRN #10 ea Symbicort 2 puff INHALATION BID #10.2 gm 08/30/19 acetaminophen [Mapap Extra 1,000 mg PO Q8H #90 tab 08/30/19 Strength] ascorbic acid (vitamin C) [Vitamin 500 mg PO BID #60 tab 08/30/19 C] cyanocobalamin (vitamin B-12) 1,000 mcg PO DAILY #60 tab 08/30/19 [Vitamin B-12] cyclobenzaprine 10 mg PO TID #90 tab 08/30/19 diltiazem HCl [Cardizem] 30 mg PO TID #90 tab 08/30/19 docusate sodium [Colace] 100 mg PO BID #60 cap 08/30/19 duloxetine [Cymbalta] 30 mg PO DAILY #30 cap 08/30/19 ferrous sulfate 325 mg PO BID #60 tab 08/30/19 gabapentin 200 mg PO TID #180 cap 08/30/19 ipratropium-albuterol 3 ml UPD Q6H PRN PRN #180 ml 08/30/19 magnesium oxide 400 mg PO BID@1000,2200 #60 tab 08/30/19 melatonin 3 - 6 mg PO HS PRN PRN #60 tab 08/30/19 multivitamin [Multiple Vitamins] 1 tab PO DAILY #30 tab 08/30/19 pantoprazole 40 mg PO BID@0730,2000 #60 tab 08/30/19 sucralfate 1 g PO AC & HS #120 tab 08/30/19 tamsulosin 0.4 mg PO DAILY #30 cap 08/30/19 thiamine mononitrate (vit B1) 100 mg PO DAILY #30 tab 08/30/19 [Vitamin B-1 (mononitrate)] Previous Rx's Medication Instructions Recorded Nicotrol 30 cartridge INHALATION 08/30/19 DIRECTED PRN #10 ea Symbicort 2 puff INHALATION BID #10.2 gm 08/30/19 acetaminophen [Mapap Extra 1,000 mg PO Q8H #90 tab 08/30/19 Strength] ascorbic acid (vitamin C) [Vitamin 500 mg PO BID #60 tab 08/30/19 C] cyanocobalamin (vitamin B-12) 1,000 mcg PO DAILY #60 tab 08/30/19 [Vitamin B-12] cyclobenzaprine 10 mg PO TID #90 tab 08/30/19 diltiazem HCl [Cardizem] 30 mg PO TID #90 tab 08/30/19 docusate sodium [Colace] 100 mg PO BID #60 cap 08/30/19 duloxetine [Cymbalta] 30 mg PO DAILY #30 cap 08/30/19 ferrous sulfate 325 mg PO BID #60 tab 08/30/19 gabapentin 200 mg PO TID #180 cap 08/30/19 ipratropium-albuterol 3 ml UPD Q6H PRN PRN #180 ml 08/30/19 magnesium oxide 400 mg PO BID@1000,2200 #60 tab 08/30/19 melatonin 3 - 6 mg PO HS PRN PRN #60 tab 08/30/19 multivitamin [Multiple Vitamins] 1 tab PO DAILY #30 tab 08/30/19 pantoprazole 40 mg PO BID@0730,2000 #60 tab 08/30/19 sucralfate 1 g PO AC & HS #120 tab 08/30/19 tamsulosin 0.4 mg PO DAILY #30 cap 08/30/19 thiamine mononitrate (vit B1) 100 mg PO DAILY #30 tab 08/30/19 [Vitamin B-1 (mononitrate)] Allergies Allergy/AdvReac Type Severity Reaction Status Date / Time bupropion AdvReac Severe seizures Verified 08/12/19 08:02 General Stated Complaint: SOB JENNA: 3 Review of Systems Narrative: No fever or cough. Intermittent shortness of breath, ran out of medications including Symbicort. States he is no longer taking diltiazem. 6 systems reviewed and otherwise negative [facility] Medical History Alcohol use disorder Atrial fibrillation Cooper's esophagus COPD (chronic obstructive pulmonary disease) Depression Failure to thrive Hematemesis Insomnia Radicular pain of right lower extremity Renal insufficiency Right knee pain Smoking hx UTI (urinary tract infection) Surgical History H/O esophagogastroduodenoscopy (~04/2019) Social History Smoking/Tobacco Use Status: Current every day Tobacco Type: cigarettes Years smoked: 50 Smoking risk assessment performed?: Yes Alcohol Intake: current Alcohol Intake frequency: 3 or more drinks per day Drug use: Never Substance use type: does not use Do you feel safe at home: Yes Do you feel safe in your relationship?: Yes Additional Social history: Lives alone in apartment in [facility] for past ~6 years, closest family brother Owen in [place], [place] 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 Pleasant, poorly groomed, interactive. HEAD: Normocephalic, atraumatic ENT: Mucous membranes moist, oropharynx unremarkable, External ear exam unremarkable EYES: PERRL, EOMI NECK: Full ROM, no DIANE, no menigismus CHEST/RESP: Nontender, diminished bilateral, do not appreciate significant wheeze/rhonchi/rales CARDIOVASCULAR: Distant, tachycardic, no murmur, rub hadley. 2+ Rad pulse bilateral ABDOMEN: Soft, nontender, no mass. +Bowel sounds. Normal rectal tone, no mass, guaiac positive brown stool EXT: Full ROM, no edema, no rash, crusted stool present Neuro: Grossly normal neurologic exam, conversant, interactive. Psych: Speech fluent, thoughts congruent, affect normal Course Vital Signs Vital signs: Vital Signs Temperature 36.4 C L 07/30/20 10:35 Pulse 90 07/30/20 10:35 Respiratory Rate 17 07/30/20 10:35 Blood Pressure 131/72 07/30/20 10:35 Pulse Oximetry 100 07/30/20 10:35 Temperature 36.4 C L 07/30/20 10:35 Temperature Source Temporal Artery Scan 07/30/20 10:35 Pulse 90 07/30/20 10:35 Respiratory Rate 17 07/30/20 10:45 Respiratory Effort 07/30/20 10:45 Respiratory Depth Normal 07/30/20 10:45 Respiratory Pattern Normal 07/30/20 10:45 Blood Pressure 131/72 07/30/20 10:35 Pulse Oximetry 100 07/30/20 10:35 Oxygen Delivery Method Room Air 07/30/20 10:35 Oxygen Flow Rate 0 07/30/20 10:35 Pain Level 0 07/30/20 10:35
--- NOTE | 2020-07-30 11:15 | RT.EKG_ITS ---
APPROVED REPORT Exam: Resting ECG Patient Location: E HR:83 bpm ECG Measurements Heart Rate 83 AXIS TN 130 P -60 QRSd 85 QRS 50 QT 391 T 64 QTc 451 Conclusion Sinus rhythm. Low voltage, extremity leads...all extremity leads <0.5mV
[2020-07-30 11:51] LABS: Abs Immature Grans 0.15 10^3/uL (0.0-0.06); Absolute Basophil Count 0.03 10^3/uL (0.0-0.2); Absolute Eosinophil Count 0.02 10^3/uL (0.0-0.7); Absolute Neutrophil Count 4.59 10^3/uL (1.2-6.7); Basophils % 0.5; Eosinophils % 0.3; HCT 25.5 % (40.0-50.0); HGB 7.8 g/dL (13.5-17.5); Immature Grans % 2.5; Lymphocytes % 13.1; MCH 24.2 pg (27.0-33.0); MCHC 30.6 % (32.0-36.0); MCV 79.2 fL (80-95); MPV 9.8 fL (8.0-11.0); Monocytes % 8.2; Neutrophils % 75.4; Nucleated RBC 0 %; Platelet Count 199 10^3/uL (130-400); RBC 3.22 10^6/uL (4.36-5.78); RDW 21.5 % (11.8-14.1); RDW-SD 60.5 fL; WBC 6.09 10^3/uL (4.4-10.8)
[2020-07-30 12:11] LABS: Anisocytosis 2+; Diff Comment RBC Morph Reviewed; Hypochromasia 2+; Macrocytosis 1+; Microcytosis 1+
[2020-07-30 12:12] LABS: Poikilocytes 1+; Polychromasia Present
[2020-07-30 12:13] LABS: ALT 75 U/L (16-63); AST 194 U/L (15-37); Albumin 4.1 g/dL (3.4-5.0); Alkaline Phosphatase 65 U/L (46-116); Anion Gap 16.9 mmol/L (3-11); BUN 45 mg/dL (7-18); Bilirubin, Total 1.3 mg/dL (0.2-1.0); CO2 24.1 mmol/L (21.0-32.0); CREATININE 2.06 mg/dL (0.70-1.30); Calcium 8.9 mg/dL (8.5-10.1); Chloride 92 mmol/L (98-107); Estimated GFR 31.72 (mL/min/1.73m2); Glucose 104 mg/dL (74-106); Magnesium 1.2 mg/dL (1.8-2.4); NT-proBNP 1129 pg/mL (<300); Potassium 4.3 mmol/L (3.5-5.1); Sodium 133 mmol/L (136-145); Total Protein 7.4 g/dL (6.4-8.2); Troponin I < 0.05 ng/mL (<0.06)
--- NOTE | 2020-07-30 12:23 | DI.VRAD_ITS ---
PROCEDURE INFORMATION: Exam: XR Chest, 1 View Exam date and time: 07/30/2020 11:09 AM Age: 75 years old Clinical indication: Other: Copd, SOB TECHNIQUE: Imaging protocol: XR of the chest Views: 1 view. COMPARISON: CR XR CHEST 2V PA LATERAL 08/12/2019 9:30 AM FINDINGS: Lungs: Lungs are hyperinflated with flattening of hemidiaphragms, unchanged. There is no focal consolidation or pleural effusion. Pleural space: Unremarkable. No pleural effusion. No pneumothorax. Heart/Mediastinum: Unremarkable. No cardiomegaly. Bones/joints: Unremarkable. IMPRESSION: No acute pulmonary process. Dictated and Authenticated by: Perico Vital MD. Ordering:GUSTAVO Rubalcava MD
[2020-07-30 13:18] LABS: ETHANOL BLOOD < 3.0 mg/dL (<3)
[2020-07-30] MEDS: Normal Saline 1,000 ML 100 ML IV ×2 (13:30→23:13)
[2020-07-30] MEDS: MAGNESIUM SULFATE 2 GM/50 ML BAG IVPB ×2 (13:30→21:03)
--- NOTE | 2020-07-30 13:31 | W.PM.HP.N ---
Date of service: 07/30/20 Time of Service: 13:32 Assessment and Plan Assessment and plan (1) GI bleed: Status: Chronic Assessment and plan: likely chronic d/t etoh, gastritis, consented to blood transfusion, to receive 1unit PRBC, trend H&H pantoprazole BID, continue carafate surgical consult (2) SAUL (acute kidney injury): Status: Acute Assessment and plan: will give gentle hydration, follow kidney funtion, avoid nephrotoxic drugs. renal dosing as needed (3) COPD (chronic obstructive pulmonary disease): Status: Acute Assessment and plan: out of his symbicort, will resume home meds and continue to assess. no IV steroids for now (4) Alcohol use disorder: Status: Acute Assessment and plan: ciwa protocol, watch liver function has had no history of DT or withdrawal in the past continue thiamine (5) Hypomagnesemia: Status: Acute Assessment and plan: replete and follow (6) Failure to thrive: Status: Acute Assessment and plan: case management referral (7) Tobacco abuse disorder: Status: Acute Assessment and plan: nicotrol inhaler as needed while hospitalized (8) DVT prophylaxis: Status: Acute Assessment and plan: no pharmacological in setting of GI bleed teds scds (9) Discharge planning issues: Status: Acute Assessment and plan: may need placement History of Present Illness History of Present Illness Chief Complaint: shortness of breath Narrative: This is a 75-year-old male with a history of tobacco and alcohol use, atrial fibrillation, who presents from home complaining of going to the bank and feeling abruptly anxious and short of breath, for which EMS was called. His symptoms did seem to improve. He states has been weak, deconditioned, not taking his medications properly, not able to care for himself. On exam, he has some mild irregular tachycardia and diminished breath sounds. He is oxygenating well on room air. His rectal exam reveals guaiac positive brown stool. labs show anemia with normal white count, elevated creatinine. He was given PPI and 1 unit of PRBC. He will be admitted to med/surg under hospitalist services. Review of Systems Constitutional Constitutional: Denies fever(s) Cardiovascular Cardiovascular: Reports dyspnea Respiratory Respiratory: Denies cough, Denies pain on inspiration and Reports dyspnea Gastrointestinal Gastrointestinal: Reports fecal incontinence Musculoskeletal Musculoskeletal: Reports other (generalized weakness) [facility] Medical History (Updated 07/30/20 @ 14:15 by Rose Wagoner NP) Alcohol use disorder Atrial fibrillation Cooper's esophagus COPD (chronic obstructive pulmonary disease) Depression Failure to thrive Hematemesis Insomnia Radicular pain of right lower extremity Renal insufficiency Right knee pain Smoking hx UTI (urinary tract infection) Surgical History H/O esophagogastroduodenoscopy (~04/2019) Social History Smoking/Tobacco Use Status: Current every day Tobacco Type: cigarettes Years smoked: 50 Smoking risk assessment performed?: Yes Alcohol Intake: current Alcohol Intake frequency: 3 or more drinks per day Drug use: Never Substance use type: does not use Do you feel safe at home: Yes Do you feel safe in your relationship?: Yes Additional Social history: Lives alone in apartment in [facility] for past ~6 years, closest family brother Owen in [place], [place] 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[employer], 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 and Allergies 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 Medications Medication Instructions Recorded Confirmed Type Nicotrol 30 cartridge INHALATION 08/30/19 07/30/20 Rx DIRECTED PRN #10 ea acetaminophen [Mapap Extra 1,000 mg PO Q8H #90 tab 08/30/19 07/30/20 Rx Strength] ascorbic acid (vitamin C) [Vitamin 500 mg PO BID #60 tab 08/30/19 07/30/20 Rx C] budesonide-formoterol [Symbicort] 2 puff INHALATION BID #10.2 gm 08/30/19 07/30/20 Rx cyanocobalamin (vitamin B-12) 1,000 mcg PO DAILY #60 tab 08/30/19 07/30/20 Rx [Vitamin B-12] cyclobenzaprine 10 mg PO TID #90 tab 08/30/19 07/30/20 Rx diltiazem HCl [Cardizem] 30 mg PO TID #90 tab 08/30/19 07/30/20 Rx docusate sodium [Colace] 100 mg PO BID #60 cap 08/30/19 07/30/20 Rx duloxetine [Cymbalta] 30 mg PO DAILY #30 cap 08/30/19 07/30/20 Rx ferrous sulfate 325 mg PO BID #60 tab 08/30/19 07/30/20 Rx gabapentin 200 mg PO TID #180 cap 08/30/19 07/30/20 Rx ipratropium-albuterol 3 ml UPD Q6H PRN PRN #180 ml 08/30/19 07/30/20 Rx magnesium oxide 400 mg PO BID@1000,2200 #60 tab 08/30/19 07/30/20 Rx melatonin 3 - 6 mg PO HS PRN PRN #60 tab 08/30/19 07/30/20 Rx multivitamin [Multiple Vitamins] 1 tab PO DAILY #30 tab 08/30/19 07/30/20 Rx pantoprazole 40 mg PO BID@0730,2000 #60 tab 08/30/19 07/30/20 Rx sucralfate 1 g PO AC & HS #120 tab 08/30/19 07/30/20 Rx tamsulosin 0.4 mg PO DAILY #30 cap 08/30/19 07/30/20 Rx thiamine mononitrate (vit B1) 100 mg PO DAILY #30 tab 08/30/19 07/30/20 Rx [Vitamin B-1 (mononitrate)] Allergies Allergy/AdvReac Type Severity Reaction Status Date / Time bupropion AdvReac Severe seizures Verified 07/30/20 14:35 Exam Const General: no acute distress, disheveled, frail appearing and ill appearing chronically Nutritional Appearance: average body habitus Orientation: alert, awake and oriented x3 HENMT Head: normal to inspection, normocephalic and atraumatic Mouth: moist mucous membranes abnormal (dry with exudate) Resp Effort & Inspection: normal respiratory effort, no audible wheezes and no respiratory distress Auscultation: diminished lung sounds and wheezes Cardio Rate: regular rate Rhythm: abnormal rhythm GI Inspection: normal to inspection Palpation: soft Auscultation: normal bowel sounds Skin General skin exam: other (filthy, nails long with dirt. scattered small scabs on lower extremities) Neuro General: patient alert, patient awake, patient oriented x3 and moves all extremities Extrem General: normal to inspection Results Labs Result diagrams: 07/31/20 07:20 07/31/20 07:20 Labs: Laboratory Results - last 24 hr 07/30/20 07/30/20 07/30/20 11:45 11:45 11:45 WBC 6.09 RBC 3.22 L Hgb 7.8 L Hct 25.5 L MCV 79.2 L MCH 24.2 L MCHC 30.6 L RDW 21.5 H Plt Count 199 MPV 9.8 Immature Gran % 2.5 Neutrophils % 75.4 Lymphocytes % 13.1 Monocytes % 8.2 Eosinophils % 0.3 Basophils % 0.5 Nucleated RBC % 0 Absolute Neutrophils 4.59 Absolute Lymphocytes 0.80 L Absolute Monocytes 0.50 Absolute Eosinophils 0.02 Absolute Basophils 0.03 RBC Morphology See below Polychromasia Present Hypochromasia 2+ Poikilocytosis 1+ Anisocytosis 2+ Microcytosis 1+ Macrocytosis 1+ Sodium 133 L Potassium 4.3 Chloride 92 L Carbon Dioxide 24.1 Anion Gap 16.9 H BUN 45 H Creatinine 2.06 H Estimated GFR/1.73 m2 31.72 Glucose 104 Calcium 8.9 Magnesium 1.2 L Total Bilirubin 1.3 H AST 194 H ALT 75 H Alkaline Phosphatase 65 Troponin I < 0.05 NT-Pro-B Natriuret Pep 1129 H Total Protein 7.4 Albumin 4.1 Ethyl Alcohol < 3.0 Crossmatch 07/30/20 13:18 WBC RBC Hgb Hct MCV MCH MCHC RDW Plt Count MPV Immature Gran % Neutrophils % Lymphocytes % Monocytes % Eosinophils % Basophils % Nucleated RBC % Absolute Neutrophils Absolute Lymphocytes Absolute Monocytes Absolute Eosinophils Absolute Basophils RBC Morphology Polychromasia Hypochromasia Poikilocytosis Anisocytosis Microcytosis Macrocytosis Sodium Potassium Chloride Carbon Dioxide Anion Gap BUN Creatinine Estimated GFR/1.73 m2 Glucose Calcium Magnesium Total Bilirubin AST ALT Alkaline Phosphatase Troponin I NT-Pro-B Natriuret Pep Total Protein Albumin Ethyl Alcohol Crossmatch See Detail Last Vital Signs Temp 36.4 C L 07/30/20 10:35 Pulse 90 07/30/20 10:35 Resp 17 07/30/20 10:45 BP 131/72 07/30/20 10:35 Pulse Ox 100 07/30/20 10:35 COVID-19 Screening Have you,or household,traveled outside [place] in last 14 days?: No Had IN PERSON contact w/suspected or confirmed C-19 person: No
[2020-07-30] MEDS: Pantoprazole 40 MG VIAL IVP ×2 (14:01→19:50)
[2020-07-30 15:15] LABS: Troponin I < 0.05 ng/mL (<0.06)
[2020-07-30] MEDS: Acetaminophen 500 MG TAB 1000 MG PO ×2 (17:13→21:02)
[2020-07-30] MEDS: Sucralfate 1 GM TAB PO ×2 (17:14→21:02)
[2020-07-30] MEDS: Gabapentin 100 MG CAP 200 MG PO ×2 (17:14→19:51)
[2020-07-30] MEDS: dilTIAZem 30 MG TAB PO ×2 (17:14→19:51)
[2020-07-30] MEDS: Albuterol/Ipratropium 3 ML UPD VIAL UPD (17:23)
[2020-07-30] MEDS: LORazepam 1 MG TAB PO/SL (19:08)
[2020-07-30] MEDS: Normal Saline Flush 10 ML SYR IVP ×2 (19:09→19:50)
[2020-07-30] MEDS: Ascorbic Acid 500 MG TAB PO (19:51)
[2020-07-30] MEDS: Ferrous Sulfate 325 MG TAB PO (19:51)
[2020-07-30] MEDS: Docusate Sodium 100 MG CAP PO (19:51)
[2020-07-30 22:22] LABS: HGB 7.5 g/dL (13.5-17.5)
[2020-07-30] MEDS: Furosemide 20 MG/2 ML VIAL IVP (23:11)
[2020-07-30] MEDS: Magnesium Oxide 400 MG TAB PO (23:12)
[2020-07-31] MEDS: Sucralfate 1 GM TAB PO ×4 (06:09→21:55)
[2020-07-31] MEDS: Acetaminophen 500 MG TAB 1000 MG PO ×3 (06:09→21:55)
[2020-07-31 07:58] VITALS: PULSE 78; RESP 16; RESP 4; O2SAT 96
[2020-07-31] MEDS: Albuterol/Ipratropium 3 ML UPD VIAL UPD (07:58)
[2020-07-31 08:12] LABS: Abs Immature Grans 0.07 10^3/uL (0.0-0.06); Absolute Basophil Count 0.02 10^3/uL (0.0-0.2); Absolute Eosinophil Count 0.03 10^3/uL (0.0-0.7); Absolute Monocyte Count 0.44 10^3/uL (0.1-0.8); Absolute Neutrophil Count 2.39 10^3/uL (1.2-6.7); Basophils % 0.5; Eosinophils % 0.8; HCT 25.1 % (40.0-50.0); HGB 7.9 g/dL (13.5-17.5); Immature Grans % 1.9; Lymphocytes % 21.3; MCH 24.9 pg (27.0-33.0); MCHC 31.5 % (32.0-36.0); MCV 79.2 fL (80-95); MPV 10.4 fL (8.0-11.0); Monocytes % 11.7; Neutrophils % 63.8; Nucleated RBC 0 %; Platelet Count 159 10^3/uL (130-400); RBC 3.17 10^6/uL (4.36-5.78); RDW 19.9 % (11.8-14.1); RDW-SD 58.3 fL; WBC 3.75 10^3/uL (4.4-10.8)
[2020-07-31 08:25] LABS: ALT 49 U/L (16-63); AST 77 U/L (15-37); Albumin 3.2 g/dL (3.4-5.0); Alkaline Phosphatase 51 U/L (46-116); Anion Gap 10.8 mmol/L (3-11); BUN 44 mg/dL (7-18); CO2 25.2 mmol/L (21.0-32.0); CREATININE 1.76 mg/dL (0.70-1.30); Calcium 7.7 mg/dL (8.5-10.1); Chloride 97 mmol/L (98-107); Estimated GFR 38.04 (mL/min/1.73m2); Glucose 110 mg/dL (74-106); Magnesium 2.3 mg/dL (1.8-2.4); Potassium 3.5 mmol/L (3.5-5.1); Sodium 133 mmol/L (136-145)
[2020-07-31] MEDS: Normal Saline 1,000 ML 100 ML IV (08:52)
[2020-07-31] MEDS: Pantoprazole 40 MG VIAL IVP ×2 (08:54→20:17)
[2020-07-31] MEDS: Normal Saline 50 ML 200 ML (08:54)
[2020-07-31] MEDS: Thiamine 100 MG TAB PO (08:55)
[2020-07-31] MEDS: Gabapentin 100 MG CAP 200 MG PO ×3 (08:55→20:22)
[2020-07-31] MEDS: Tamsulosin 0.4 MG CAPCR PO (08:55)
[2020-07-31] MEDS: Ascorbic Acid 500 MG TAB PO ×2 (08:55→20:23)
[2020-07-31] MEDS: DULoxetine 30 MG CAP PO (08:55)
[2020-07-31] MEDS: Ferrous Sulfate 325 MG TAB PO ×2 (08:55→20:23)
[2020-07-31] MEDS: Docusate Sodium 100 MG CAP PO ×2 (08:55→20:18)
[2020-07-31] MEDS: Multivitamin TAB 1 TAB PO (08:55)
[2020-07-31] MEDS: dilTIAZem 30 MG TAB PO ×3 (08:55→20:20)
[2020-07-31] MEDS: Normal Saline Flush 10 ML SYR IVP (08:56)
[2020-07-31 09:09] VITALS: BP 100/61; PULSE 93; RESP 18; TEMP 36.3; O2SAT 93
--- NOTE | 2020-07-31 09:56 | PT.INTREAT ---
Date of service: 07/31/20 Time of Service: 09:56 PT Notes Visit Reasons: GI BLEED, DYDRATION, COPD EXAC Physical therapy non- treatment note Referral for skilled services was received today at 7:30 AM. Patient is awaiting results for [place] 19 screen. He is displaying symptoms. Elected to hold on PT Consult until Covid results are received. Will re-check status tomorrow 08/01/2020. Thank you very much for this referral. Marquez Duran PT, DPT [facility]
--- NOTE | 2020-07-31 10:59 | W.PM.PROGNOT ---
Date of Service Date of service: 07/31/20 Time of Service: 11:00 Assessment and Plan Assessment and plan (1) GI bleed: Status: Chronic Assessment and plan: likely chronic d/t etoh, gastritis, consented to blood transfusion, to receive 1unit PRBC, H&H stable pantoprazole BID, continue carafate consider surgical consult (2) SAUL (acute kidney injury): Status: Acute Assessment and plan: will give gentle hydration, follow kidney funtion, avoid nephrotoxic drugs. renal dosing as needed (3) COPD (chronic obstructive pulmonary disease): Status: Acute Assessment and plan: out of his symbicort, will resume home meds and continue to assess. no IV steroids for now (4) Alcohol use disorder: Status: Acute Assessment and plan: ciwa protocol, watch liver function has had no history of DT or withdrawal in the past continue thiamine (5) Hypomagnesemia: Status: Acute Assessment and plan: replete and follow (6) Failure to thrive: Status: Acute Assessment and plan: case management referral (7) Tobacco abuse disorder: Status: Acute Assessment and plan: nicotrol inhaler as needed while hospitalized (8) DVT prophylaxis: Status: Acute Assessment and plan: no pharmacological in setting of GI bleed teds scds (9) Discharge planning issues: Status: Acute Assessment and plan: may need placement Subjective Subjective Patient reports: no new complaints, tolerating liquids well, tolerating a regular diet and afebrile Interval history since last seen: difficulty behaviors overnight, demanding, impatient, refusing updrafts. Exam Const General: no acute distress, disheveled, frail appearing and ill appearing chronically Nutritional Appearance: average body habitus Orientation: alert, awake and oriented x3 HENMS Head: normal to inspection, normocephalic and atraumatic Mouth: moist mucous membranes abnormal (dry with exudate) Resp Effort & Inspection: normal respiratory effort, no audible wheezes and no respiratory distress Auscultation: diminished lung sounds and wheezes Cardio Rate: regular rate Rhythm: abnormal rhythm GI Inspection: normal to inspection Palpation: soft Auscultation: normal bowel sounds Skin General skin exam: other (filthy, nails long with dirt. scattered small scabs on lower extremities) Neuro General: patient alert, patient awake, patient oriented x3 and moves all extremities Extrem General: normal to inspection Objective Last Vital Signs Temp 36.3 C L 07/31/20 09:09 Pulse 93 H 07/31/20 09:09 Resp 18 07/31/20 09:09 BP 100/61 07/31/20 09:09 Pulse Ox 93 07/31/20 09:09 Laboratory Results - last 24 hr 07/30/20 07/30/20 07/30/20 11:45 11:45 11:45 WBC 6.09 RBC 3.22 L Hgb 7.8 L Hct 25.5 L MCV 79.2 L MCH 24.2 L MCHC 30.6 L RDW 21.5 H Plt Count 199 MPV 9.8 Immature Gran % 2.5 Neutrophils % 75.4 Lymphocytes % 13.1 Monocytes % 8.2 Eosinophils % 0.3 Basophils % 0.5 Nucleated RBC % 0 Absolute Neutrophils 4.59 Absolute Lymphocytes 0.80 L Absolute Monocytes 0.50 Absolute Eosinophils 0.02 Absolute Basophils 0.03 RBC Morphology See below Polychromasia Present Hypochromasia 2+ Poikilocytosis 1+ Anisocytosis 2+ Microcytosis 1+ Macrocytosis 1+ Sodium 133 L Potassium 4.3 Chloride 92 L Carbon Dioxide 24.1 Anion Gap 16.9 H BUN 45 H Creatinine 2.06 H Estimated GFR/1.73 m2 31.72 Glucose 104 Calcium 8.9 Magnesium 1.2 L Total Bilirubin 1.3 H AST 194 H ALT 75 H Alkaline Phosphatase 65 Troponin I < 0.05 NT-Pro-B Natriuret Pep 1129 H Total Protein 7.4 Albumin 4.1 Ethyl Alcohol < 3.0 COVID-19 PCR Nasopharyn COVID-19 PCR Ref Test Perform Site Patient ABO/Rh Antibody Screen Crossmatch 07/30/20 07/30/20 07/30/20 12:09 13:18 14:45 WBC RBC Hgb Hct MCV MCH MCHC RDW Plt Count MPV Immature Gran % Neutrophils % Lymphocytes % Monocytes % Eosinophils % Basophils % Nucleated RBC % Absolute Neutrophils Absolute Lymphocytes Absolute Monocytes Absolute Eosinophils Absolute Basophils RBC Morphology Polychromasia Hypochromasia Poikilocytosis Anisocytosis Microcytosis Macrocytosis Sodium Potassium Chloride Carbon Dioxide Anion Gap BUN Creatinine Estimated GFR/1.73 m2 Glucose Calcium Magnesium Total Bilirubin AST ALT Alkaline Phosphatase Troponin I < 0.05 NT-Pro-B Natriuret Pep Total Protein Albumin Ethyl Alcohol COVID-19 PCR Cancelled Nasopharyn COVID-19 PCR Cancelled Ref Test Perform Site Cancelled Patient ABO/Rh O Positive Antibody Screen Negative Crossmatch See Detail 07/30/20 07/31/20 07/31/20 22:05 07:20 07:20 WBC 3.75 L D RBC 3.17 L Hgb 7.5 L 7.9 L Hct 24.0 L 25.1 L MCV 79.2 L MCH 24.9 L MCHC 31.5 L RDW 19.9 H Plt Count 159 MPV 10.4 Immature Gran % 1.9 Neutrophils % 63.8 Lymphocytes % 21.3 Monocytes % 11.7 Eosinophils % 0.8 Basophils % 0.5 Nucleated RBC % 0 Absolute Neutrophils 2.39 Absolute Lymphocytes 0.80 L Absolute Monocytes 0.44 Absolute Eosinophils 0.03 Absolute Basophils 0.02 RBC Morphology Polychromasia Hypochromasia Poikilocytosis Anisocytosis Microcytosis Macrocytosis Sodium 133 L Potassium 3.5 Chloride 97 L Carbon Dioxide 25.2 Anion Gap 10.8 BUN 44 H Creatinine 1.76 H Estimated GFR/1.73 m2 38.04 Glucose 110 H Calcium 7.7 L Magnesium 2.3 Total Bilirubin 1.0 AST 77 H ALT 49 Alkaline Phosphatase 51 Troponin I NT-Pro-B Natriuret Pep Total Protein 6.0 L Albumin 3.2 L Ethyl Alcohol COVID-19 PCR Nasopharyn COVID-19 PCR Ref Test Perform Site Patient ABO/Rh Antibody Screen Crossmatch
[2020-07-31] MEDS: Magnesium Oxide 400 MG TAB PO ×2 (12:00→21:54)
[2020-07-31] MEDS: Potassium Chloride 20 MEQ TABCR PO ×3 (12:00→20:21)
[2020-07-31] MEDS: Ipratropium/Albuterol 4 GM 120 PUFF INH IH ×3 (13:05→20:27)
--- NOTE | 2020-07-31 17:33 | PDOC.CMIN ---
- If Service Date Differs Date of service: 07/31/20 Time of Service: 17:33 Care Management Initial Assess REASON FOR HOSPITALIZATION:: GI bleed, dehydration, COPD exacerbation. PAST MEDICAL HISTORY/PAST SURGICAL HISTORY:: Medical History: Alcohol use disorder, Atrial fibrillation, Cooper's esophagus, COPD (chronic obstructive pulmonary disease), Depression,. Failure to thrive, Hematemesis, Insomnia, Radicular pain of right lower extremity, Renal insufficiency, Right knee pain, Smoking hx, and UTI (urinary tract infection). Surgical History: H/O esophagogastroduodenoscopy (~04/2019) PREVIOUS FUNCTIONAL STATUS/SOCIAL/FAMILY SUPPORTS:: CM is unable to meet with Khoi as he is currently under Covid-19 precautions. Per chart review, Khoi lives alone in an apartment in [facility]. He is a of both [employer]. He has a brother in [place] who is supportive of him. He also has two sons who reside in [place], but has not wanted CM to contact them during past hospitalizations. Khoi has been struggling at home for the past year with increased weakness and failure to thrive. CURRENT FUNCTIONAL STATUS:: CM is unable to meet with Khoi due to Covid-19 restrictions. CM will continue to follow. ADVANCE DIRECTIVES:: [facility] on file. Has patient been provided with info about the portal/API?: No Did the patient sign up for the portal?: No CODE STATUS:: Full Code INSURANCE COVERAGE / FINANCIAL ISSUES:: Medicaid and [facility] (also [employer]). CURRENT HOME/COMMUNITY SERVICES/EQUIPMENT:: Unknown at this time, as CM is unable to meet with Khoi. PRIMARY CARE PHYSICIAN:: Antonio Flood MD POTENTIAL DISCHARGE NEEDS:: Follow up appointment with PCP, discharge plan of care, and potential placement, if Khoi is agreeable. PATIENT/FAMILY EDUCATION NEEDS:: Discharge instructions, limitations, follow up plan of care, including Ask Me Three and self management. ANTICIPATED BARRIERS TO DISCHARGE:: Potential placement issue. TRANSPORTATION:: To be determined based on disposition. PLAN:: Undetermined at this time. Khoi will likely need a SNF placement. CM will continue to follow.
[2020-07-31] MEDS: Normal Saline 1,000 ML 80 ML IV (20:16)
[2020-07-31] MEDS: Budesonide/Formoterol 160/4.5 6 GM 60 PUFF INH IH (20:37)
[2020-07-31] MEDS: Melatonin 3 MG TAB 9 MG PO (21:55)
[2020-07-31 22:48] VITALS: BP 107/63; PULSE 83; RESP 18; TEMP 36.5; O2SAT 94
[2020-08-01] VITALS (7 sets, daily range): BP systolic 112–171; BP diastolic 63–80; PULSE 71–83; RESP 16–20; TEMP 36.7–37.2; O2SAT 92–97
--- NOTE | 2020-08-01 | DI.US_ITS ---
EXAM: US RENAL CLINICAL HISTORY: renal failure. TECHNIQUE: Jeffery scale, color and spectral Doppler were used. COMPARISON: No exams were available for comparison FINDINGS: Renal size in cm: Right: 9.6. Left: 10.4. Echogenicity: Normal. Hydronephrosis: No. Cyst or mass: No. Nephrolithiasis: No. Other findings: None. Bladder:Normal. Debris is noted within the urinary bladder. Ureteral jets: Right: Visualized and unremarkable. Left: Visualized and unremarkable. Prevoid vol:484 cc Postvoid vol:445 cc Prostate: 15.4 cc Renal color flow: Symmetric and within normal limits. IMPRESSION: Debris noted within the urinary bladder. Infection or hemorrhage cannot be excluded. Please correla te clinically. DATA REPOSITORY:
[2020-08-01] MEDS: Acetaminophen 500 MG TAB 1000 MG PO ×2 (05:38→14:40)
--- NOTE | 2020-08-01 07:17 | POCOE_ITS ---
Date of service: 08/01/20 Time of Service: 07:18 History of Present Illness History of Present Illness Chief Complaint: Painful overgrown toenails that he is unable to manage Narrative: Khoi is a 75-year-old male who is seen at bedside who acknowledges that he is having trouble taking care of himself and performing daily activities. He states he has been unable to reach his feet and manage his toenails and that they have been very uncomfortable. He states that he gets holes in all of his socks and has difficulty wearing shoes because of the length of the toenails. [facility] Medical History Alcohol use disorder Atrial fibrillation Cooper's esophagus COPD (chronic obstructive pulmonary disease) Depression Failure to thrive Hematemesis Insomnia Radicular pain of right lower extremity Renal insufficiency Right knee pain Smoking hx UTI (urinary tract infection) Surgical History H/O esophagogastroduodenoscopy (~04/2019) Social History Smoking/Tobacco Use Status: Current every day Tobacco Type: cigarettes Years smoked: 50 Smoking risk assessment performed?: Yes Alcohol Intake: current Alcohol Intake frequency: 3 or more drinks per day Drug use: Never Substance use type: does not use Do you feel safe at home: Yes Do you feel safe in your relationship?: Yes Additional Social history: Lives alone in apartment in [facility] for past ~6 years, closest family brother Owen in [place], [place] 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 He states he is still very unsteady on his feet. He is wearing compression stockings but his pulses are palpable at the ankles and his feet are warm to the touch, no peripheral edema or is noted. His skin is grossly intact although scale is appreciated consistent with poor hygiene. Her toenails are rather elongated being thickened, yellowed, dystrophic, hypertrophic, with a high degree of cryptosis. There is periungual tenderness but no drainage is appreciated. All toenails are affected. There is subungual debris with periungual tenderness. No active signs of tinea pedis observed at this time. Webspaces are clear. Muscle groups of 5 out of 5 bilaterally although deconditioned Skeletal exam was grossly benign. No joint deformities heat or swelling noted. Impressions: Onychogryphosis with onychocryptosis Plan: Mechanically and electrically debrided all toenails atraumatically to patient tolerance. Significant relief of symptomatology noted upon debridement. I did discuss the need for proper of foot care and hygiene and will be happy to see him on a PRN basis as needed upon discharge. Results Last Vital Signs Temp 36.5 C 07/31/20 22:48 Pulse 83 07/31/20 22:48 Resp 18 07/31/20 22:48 BP 107/63 07/31/20 22:48 Pulse Ox 94 07/31/20 22:48 Labs Result diagrams: 07/31/20 07:20 07/31/20 07:20 Labs: Laboratory Results - last 24 hr 07/31/20 07/31/20 07:20 07:20 WBC 3.75 L D RBC 3.17 L Hgb 7.9 L Hct 25.1 L MCV 79.2 L MCH 24.9 L MCHC 31.5 L RDW 19.9 H Plt Count 159 MPV 10.4 Immature Gran % 1.9 Neutrophils % 63.8 Lymphocytes % 21.3 Monocytes % 11.7 Eosinophils % 0.8 Basophils % 0.5 Nucleated RBC % 0 Absolute Neutrophils 2.39 Absolute Lymphocytes 0.80 L Absolute Monocytes 0.44 Absolute Eosinophils 0.03 Absolute Basophils 0.02 Sodium 133 L Potassium 3.5 Chloride 97 L Carbon Dioxide 25.2 Anion Gap 10.8 BUN 44 H Creatinine 1.76 H Estimated GFR/1.73 m2 38.04 Glucose 110 H Calcium 7.7 L Magnesium 2.3 Total Bilirubin 1.0 AST 77 H ALT 49 Alkaline Phosphatase 51 Total Protein 6.0 L Albumin 3.2 L
[2020-08-01 07:24] LABS: Abs Immature Grans 0.07 10^3/uL (0.0-0.06); Absolute Basophil Count 0.03 10^3/uL (0.0-0.2); Absolute Eosinophil Count 0.07 10^3/uL (0.0-0.7); Absolute Lymphocyte Count 0.97 10^3/uL (1.2-3.4); Absolute Monocyte Count 0.61 10^3/uL (0.1-0.8); Basophils % 0.7; Eosinophils % 1.7; HCT 22.1 % (40.0-50.0); Immature Grans % 1.7; Lymphocytes % 24.2; MCH 25.2 pg (27.0-33.0); MCHC 30.8 % (32.0-36.0); MCV 81.9 fL (80-95); MPV 10.6 fL (8.0-11.0); Monocytes % 15.2; Neutrophils % 56.5; Nucleated RBC 1 %; Platelet Count 151 10^3/uL (130-400); RDW 20.9 % (11.8-14.1); RDW-SD 60.7 fL; WBC 4.01 10^3/uL (4.4-10.8)
[2020-08-01 07:37] LABS: Absolute Neutrophil Count 2.27 10^3/uL (1.2-6.7); BUN 44 mg/dL (7-18); CREATININE 1.77 mg/dL (0.70-1.30); Calcium 7.5 mg/dL (8.5-10.1); Chloride 104 mmol/L (98-107); Estimated GFR 37.79 (mL/min/1.73m2); Glucose 107 mg/dL (74-106); Magnesium 1.9 mg/dL (1.8-2.4); Potassium 4.7 mmol/L (3.5-5.1); Sodium 136 mmol/L (136-145)
[2020-08-01 07:45] LABS: Anisocytosis 3+; Diff Comment RBC Morph Reviewed; HGB 6.8 g/dL (13.5-17.5); Hypochromasia 3+; Macrocytosis 2+; Microcytosis 2+; Poikilocytes 1+; Polychromasia Present
[2020-08-01] MEDS: Ipratropium/Albuterol 4 GM 120 PUFF INH IH ×4 (07:58→20:47)
[2020-08-01] MEDS: Budesonide/Formoterol 160/4.5 6 GM 60 PUFF INH IH ×2 (07:58→20:46)
[2020-08-01] MEDS: Docusate Sodium 100 MG CAP PO ×2 (08:12→20:45)
[2020-08-01] MEDS: Sucralfate 1 GM TAB PO ×4 (08:13→21:04)
[2020-08-01] MEDS: Ferrous Sulfate 325 MG TAB PO ×2 (08:13→20:45)
[2020-08-01] MEDS: Multivitamin TAB 1 TAB PO (08:13)
[2020-08-01] MEDS: dilTIAZem 30 MG TAB PO ×3 (08:13→20:44)
[2020-08-01] MEDS: DULoxetine 30 MG CAP PO (08:13)
[2020-08-01] MEDS: Ascorbic Acid 500 MG TAB PO ×2 (08:13→20:45)
[2020-08-01] MEDS: Thiamine 100 MG TAB PO (08:13)
[2020-08-01] MEDS: Pantoprazole 40 MG VIAL IVP ×2 (08:14→20:45)
[2020-08-01] MEDS: Gabapentin 100 MG CAP 200 MG PO ×3 (08:14→20:45)
[2020-08-01] MEDS: Tamsulosin 0.4 MG CAPCR PO (08:14)
[2020-08-01] MEDS: Normal Saline Flush 10 ML SYR IVP ×4 (08:15→20:48)
--- NOTE | 2020-08-01 08:51 | OT.INIE ---
Occupational Therapy Notes Inpatient Occupational Therapy Evaluation Date:08/01/20 Referring Doctor: Rose Wagoner NP OT Orders: Non-Urgent Precautions: Standard, Full PATIENT PROFILE/ADMITTING DIAGNOSIS: Pt is a 75 year old male who is currently admitted to [facility] on Med Surg tobacco disorder, failure to thrive, hypomagnesemia, COPD, SAUL, alcohol use diorser, GI bless, Anemia. Past Medical History: Medical History (Updated 07/30/20 @ 14:15 by Rose Wagoner NP) Alcohol use disorder Atrial fibrillation Cooper's esophagus COPD (chronic obstructive pulmonary disease) Depression Failure to thrive Hematemesis Insomnia Radicular pain of right lower extremity Renal insufficiency Right knee pain Smoking hx UTI (urinary tract infection) Surgical History H/O esophagogastroduodenoscopy (~04/2019) Social History/Home Situation: Pt lives alone.He reports that he is (I) with all ADLs/IADLs but when he drinks he struggles with his performance in this. He notes that he has a tub/shower combination which he is unable to transfer in to and states that he has not performed his bathing in weeks- months. 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 He does not socialize on a regular basis and reports depressions. He states that eats [employer] every night and this is becoming an increased expense to him. Equipment owned/DME: shower seat, grab bars SUBJECTIVE: Pt was lying in bed when OT arrived. He was agreeable to OT session but notes that he is not motivated to do anything today and is not happy with where he is at. OBJECTIVE: General Observation: Pt is anxious, able to answer questions but is short with answer. Mental Status: A&Ox3 Pain: no c/o pain ROM: RUE AROM WNL L UE Shoulder flexion limited to 150* with excessive shoulder substitution, pt reports this is chronic, elbow, hand and digits WNL STRENGTH: RUE Shoulder flexion 4-/5, bicep 4/5, tricep 4/5, director business is strong and symmetrical. LUE Shoulder flexion 4-/5, bicep 4/5, tricep 4/5, director business is strong and symmetrical. FUNCTIONAL MOBILITY/ADLS: Transfers without assistive device Sit-Stand SBA Stand-sit SBA BATHING- NT as pt denies. He reports that he is depressed and does not need to perform this as he hasn't is weeks. DRESSING Dressing UE Sitting on side of the bed min (A) with [facility] gown Dressing LE Sitting on side of bed pt is able to reach his (B) socks but refuses. GROOMING Sitting pt is able to (I) brush hos own hair and irwin. TOILETING pt denies and reports that he is not sure that he can do this. EATING NT BALANCE: Static sitting Normal Dynamic Sitting Normal Static Standing Normal Dynamic Standing Good SPECIAL TESTS: Daily Activity Limitations Standardized Measure [facility] AM PAC ?6 clicks? Daily Activity Inpatient Short Form: Raw score: 16 Standardized score: 35.96 CMS score: 53.32% INFORMED CONSENT/EDUCATION: Pt instructed in purpose of OT Consult and plan of care. ASSESSMENT: Patient is a 75-year-old male referred to occupational therapy services with diagnosis of tobacco disorder, failure to thrive, hypomagnesemia, COPD, SAUL, alcohol use diorser, GI bless, Anemia. Patient presents with clinical signs and symptoms consistent with dx. He has c/o depression, he has not performed his bathing routine for weeks + at this time, he is presenting with decreased functional activity tolerance, decreased performance of standing ADLs, decreased performance of healthy nutrition as pt eats [employer] every night. Pt would benefit from skilled OT services to improve his quality of life and return to his premorbid level of functions. AMPAC score 16. CMS score 53.32% Patient is assessed as a Moderate 79173 complexity based on the following: History: See Above Examination: See Above Presentation: Evolving Decision Making: AMPAC score 16, CMS score 53.32% GOALS Goals x1 week 1. Eating- sitting in chair (I) 2. Dressing- sitting on side of the bed (I) with don and doffing (B) socks and pants 3. Bathing- standing at sink, pt will be able to wash his (B) LE/LE 4. Toileting- (I) on toilet 5. Grooming- Standing at sink pt will be (I) with brushing his teeth PLAN OF CARE/TREATMENT PLAN: 1x/day, 5 days/ week x 1week Initiate Occupational Therapy Services for bathing, dressing, grooming, toileting, eating, transfer training. DISCHARGE RECOMMENDATIONS- Based on initial evaluation and assessment of pts functional abilities, OT feels that pt may benefit from SNF vs. home with services. TREATMENT TIME/MINUTES/CODES 70544, 20 minutes (07:45) Viji Brown OTR/[facility]
[2020-08-01 09:01] LABS: SARS-CoV-2 RNA Not Detected (NotDetected); SARS-CoV-2 RNA Source Nasopharynx
--- NOTE | 2020-08-01 09:01 | IN_ITS ---
Date of service: 08/01/20 Time of Service: 09:01 PT Notes Visit Reasons: GI BLEED, DYDRATION, COPD EXAC Physical Therapy Inpatient Initial Evaluation Date: 08/01/2020 Referring Doctor: Rose Wagoner NP PT Orders: PT CONSULT: Eval/treat Precautions: Fall. Standard. Activity as tolerated. Patient Profile/Admitting Diagnosis: Khoi is a 75-year-old male with a past medical history significant for alcohol abuse and COPD who presented to the ED on 07/30/2019 with chief complaints of shortness of breath and generalized weakness. He is diagnosed with GI bleed, acute kidney injury, chronic obstructive pulmonary disease, EtOH use disorder, hypomagnesemia, failure to thrive, and tobacco abuse. PMHX: Medical History (Updated 07/30/20 @ 14:15 by Rose Wagoner NP) Alcohol use disorder Atrial fibrillation Cooper's esophagus COPD (chronic obstructive pulmonary disease) Depression Failure to thrive Hematemesis Insomnia Radicular pain of right lower extremity Renal insufficiency Right knee pain Smoking hx UTI (urinary tract infection) Surgical History H/O esophagogastroduodenoscopy (~04/2019) Social History/Home Situation: Patient lives alone in an apartment with 15 steps to get in with a rail on the right going up. He was independent with all aspects of ADLs without the need for an assistive ambulatory device nor adaptive equipment although he stated that recently it has been very difficult to do so due to weakness and uncontrolled alcoholism. Equipment Owned/DME: None but will need a FWW. Subjective: Rufino states that he has not had a good night's sleep and has been awake since 3 AM today. Complains that he still feels weak and refused to do walking this early. He did agree to strength testing in bed and to transfer assessment. Objective: General Observation: Patient seen resting in bed. Bilateral TEDS on. Telemetry monitoring in place. Mental Status: Alert and oriented x 4 Pain: None reported ROM: Right Upper Extremity: Shoulder Flexion WFL. Shoulder abduction WFL. Elbow flexion WFL. Wrist flexion WFL. Functional opening and closing of hand WFL. Left Upper Extremity: Shoulder Flexion WFL. Shoulder abduction WFL. Elbow flexion WFL. Wrist flexion WFL. Functional opening and closing of hand WFL. Right Lower Extremity: Hip flexion WFL. Hip abduction WFL. Knee flexion WFL. Ankle dorsiflexion WFL. Ankle plantarflexion WFL. Left Lower Extremity: Hip flexion WFL. Hip abduction WFL. Knee flexion WFL. Ankle dorsiflexion WFL. Ankle plantarflexion WFL. Strength: Right Upper Extremity: Shoulder flexors 3+/5. Shoulder abductors 3+/5. Elbow flexors 3+/5. Elbow extensors 3+/5. Machine Guide Base Winder strong. Left Upper Extremity: Shoulder flexors 3+/5. Shoulder abductors 3+/5. Elbow flexors 3+/5. Elbow extensors 3+/5. Machine Guide Base Winder strong. Right Lower Extremity: Hip flexors 3-/5. Hip abductors 3-/5. Knee flexors 3-/5. Knee extensors 3-/5. Ankle dorsiflexors 3-/5. Ankle plantarflexors 3-/5. Left Lower Extremity: Hip flexors 3-/5. Hip abductors 3-/5. Knee flexors 3-/5. Knee extensors 3-/5. Ankle dorsiflexors 3-/5. Ankle plantarflexors 3-/5. Sensation: Intact as to pain and pressure on bilateral lower extremities. Bed Mobility/Transfers: Supine to sit minimal assist of 2 Sit to supine minimal assist of 2 Sit to stand minimal assist of 2 Stand to sit minimal assist of 2 Bed to chair minimal assist of 2 Chair to bed minimal assist of 2 Gait: Only agreeable to doing transfer task performance for this evaluation as he states that he is still very tired. Balance: Static Sitting: Normal Dynamic Sitting: Good Static Standing: Fair Dynamic Standing: Fair Special Tests: Mobility Limitations Standardized Measure [facility] 6 clicks Basic Mobility Inpatient Short Form: Raw Score: 12 CMS Score: 69% deficit Informed Consent/Education: Patient instructed in purpose of PT consult and plan of care. Assessment: Khoi demonstrates a mobility decline requiring the use of a front wheeled walker and extensive assist for all mobility ADL performance using front wheeled walker, decreased activity tolerance, and increased risk for falls due to admitting diagnosis. He is a 75-year-old male with a past medical history significant for alcohol abuse and COPD who presented to the ED on 07/30/2019 with chief complaints of shortness of breath and generalized weakness. He is diagnosed with GI bleed, acute kidney injury, chronic obstructive pulmonary disease, EtOH use disorder, hypomagnesemia, failure to thrive, and tobacco abuse. Patient presents with clinical signs and symptoms consistent with current/admitting diagnoses that have resulted to mobility limitations, gait instability, generalized weakness, and impairment of motor control as demonstrated by the following impairment level findings: 1. Decreased strength to B UE/LE major muscle groups 2. Impaired sitting/standing balance 3. Impaired activity tolerance Impairments are contributing to the following functional limitations: 1. Inability to safely ambulate without assistive device and physical assistance 2. Increase completion time for mobility ADL performance 3. Increased fall risk 4. Inability to negotiate steps alone safely Patient is assessed as a 61505 moderate complexity based on the following: History: Patient is a 75-year-old male with a past medical history, impairment level findings, and functional limitations as listed above Examination: Demonstrable impairment in strength, balance, and range of motion as tested above Presentation: Evolving Decision Makin moderate complexity Goals: Goals X1 week 1. Supine-Sit independent 2. Sit-Supine independent 3. Sit-Stand independent 4. Stand-Sit independent 5. Bed-Chair independent 6. Chair-Bed independent 7. Independent gait on level surface with use of least restrictive device for at least 300 feet without report of pain nor dyspnea 8. Independent stair negotiation while holding onto bilateral rails for at least 10 steps without report of pain nor dyspnea 9. Independent with home exercise program 10. Good static and dynamic standing balance/tolerance Plan of Care/Treatment Plan: 1-2x/day, 7 days/week x 1 week. Plan of care has been reviewed with the CLINICAL NURSE REVIEWER providing the service under Physical Therapy direction. Initiate Physical Therapy intervention for strengthening, bed mobility, transfers, gait, stairs, balance training, use of assistive device. DISCHARGE RECOMMENDATIONS: Patient will benefit from residential facility placement in order to progress mobility level, strength, and balance in preparation for a safe discharge to home. TREATMENT CODE/TIME: 27321 x 24 minutes beginning at 9:01 AM. Thank you for the opportunity to participate in the care of this patient. Franchesca Hawley PT, DPT, CLT [facility] [place], [place]
[2020-08-01] MEDS: Magnesium Oxide 400 MG TAB PO ×2 (10:02→21:00)
[2020-08-01] MEDS: Normal Saline 1,000 ML 80 ML IV (10:02)
--- NOTE | 2020-08-01 10:21 | PGE_ITS ---
Date of Service Date of service: 08/01/20 Time of Service: 10:21 Assessment and Plan Assessment and plan (1) Urinary retention: Status: Acute Assessment and plan: bladder scan with cath for residual greater than 300 cc. increase tamsulosin, consult urology (2) GI bleed: Status: Chronic Assessment and plan: likely chronic d/t etoh, gastritis, but also acute on CKD, and iron deficiency consented to blood transfusion, will receive another 1unit PRBC today for H&H dr op to 6.8/22.1, likely some dilution d/t IV fluids continue pantoprazole BID, continue carafate surgical consult placed and plan for upper and lower endoscopy (3) SAUL (acute kidney injury): Status: Acute Assessment and plan: not returned to baseline, will get renal ultrasound, repeat post void residual bladder scan, straight cath as needed, UA ordered. continue gentle hydration, follow kidney funtion, avoid nephrotoxic drugs. renal dosing as needed (4) COPD (chronic obstructive pulmonary disease): Status: Acute Assessment and plan: stable, resume home meds and continue to assess. no IV steroids for now (5) Alcohol use disorder: Status: Acute Assessment and plan: ciwa protocol, watch liver function has had no history of DT or withdrawal in the past continue thiamine (6) Hypomagnesemia: Status: Acute Assessment and plan: replete and follow (7) Failure to thrive: Status: Acute Assessment and plan: case management referral (8) Tobacco abuse disorder: Status: Acute Assessment and plan: nicotrol inhaler as needed while hospitalized (9) DVT prophylaxis: Status: Acute Assessment and plan: no pharmacological in setting of GI bleed teds scds (10) Discharge planning issues: Status: Acute Assessment and plan: may need placement discussed with DR Arnold who is in agreement Subjective Subjective Patient reports: no new complaints Interval history since last seen: states he feels lousy, when queried states that is because he is hospitalized, not sleeping, no other specific c/o. denies chest pain shortness of breath abdominal pain or nausea. no fevers overnight, is oxygenating well on room air. Exam Const General: no acute distress, disheveled, frail appearing and ill appearing chronically Nutritional Appearance: average body habitus Orientation: alert, awake and oriented x3 HENMT Head: normal to inspection, normocephalic and atraumatic Mouth: moist mucous membranes abnormal (dry with exudate) Resp Effort & Inspection: normal respiratory effort, no audible wheezes and no respiratory distress Auscultation: diminished lung sounds and wheezes Cardio Rate: regular rate Rhythm: abnormal rhythm GI Inspection: normal to inspection Palpation: soft Auscultation: normal bowel sounds Skin General skin exam: other (filthy, nails long with dirt. scattered small scabs on lower extremities) Neuro General: patient alert, patient awake, patient oriented x3 and moves all extremities Extrem General: normal to inspection Objective Last Vital Signs Temp 36.7 C 08/01/20 07:56 Pulse 77 08/01/20 07:56 Resp 18 08/01/20 07:56 BP 137/71 08/01/20 07:56 Pulse Ox 95 08/01/20 07:56 Laboratory Results - last 24 hr 07/30/20 07/30/20 08/01/20 13:18 21:45 07:00 WBC RBC Hgb Hct MCV MCH MCHC RDW Plt Count MPV Immature Gran % Neutrophils % Lymphocytes % Monocytes % Eosinophils % Basophils % Nucleated RBC % Absolute Neutrophils Absolute Lymphocytes Absolute Monocytes Absolute Eosinophils Absolute Basophils RBC Morphology Polychromasia Hypochromasia Poikilocytosis Anisocytosis Microcytosis Macrocytosis Sodium 136 Potassium 4.7 D Chloride 104 Carbon Dioxide 27.0 Anion Gap 5.0 BUN 44 H Creatinine 1.77 H Estimated GFR/1.73 m2 37.79 Glucose 107 H Calcium 7.5 L Magnesium 1.9 SARS-CoV-2 Source Nasopharynx SARS-CoV-2 (PCR) Not detected Crossmatch See Detail 08/01/20 07:00 WBC 4.01 L RBC 2.70 L Hgb 6.8 L* Hct 22.1 L MCV 81.9 MCH 25.2 L MCHC 30.8 L RDW 20.9 H Plt Count 151 MPV 10.6 Immature Gran % 1.7 Neutrophils % 56.5 Lymphocytes % 24.2 Monocytes % 15.2 Eosinophils % 1.7 Basophils % 0.7 Nucleated RBC % 1 Absolute Neutrophils 2.27 Absolute Lymphocytes 0.97 L Absolute Monocytes 0.61 Absolute Eosinophils 0.07 Absolute Basophils 0.03 RBC Morphology See below Polychromasia Present Hypochromasia 3+ Poikilocytosis 1+ Anisocytosis 3+ Microcytosis 2+ Macrocytosis 2+ Sodium Potassium Chloride Carbon Dioxide Anion Gap BUN Creatinine Estimated GFR/1.73 m2 Glucose Calcium Magnesium SARS-CoV-2 Source SARS-CoV-2 (PCR) Crossmatch
--- NOTE | 2020-08-01 10:21 | CMPROGNOTE_ITS ---
Care Management Progress Note S/O: Khoi was lying in bed. He recognized this va underwriter from prior admissions. He shared feelings around exhaustion; CM agreed to come back in the morning. CM continues to follow. A: 75 year old male admitted to [facility] 07/30/20 for GI bleed, dehydration, COPD exacerbation. P: Anticipate Khoi will transfer to SNF once ready per MD, he remains acutely ill at this time. Referral faxed to [facility] for review. Transport to be determined by mobility. CM continues to follow.
--- NOTE | 2020-08-01 10:58 | W.SURGCON ---
Date of service: 08/01/20 Time of Service: 12:15 Assessment and Plan Assessment and plan (1) Anemia: Status: Chronic Assessment and plan: I advised EGD and colonoscopy. He does not feel well enough to do the prep at this point, will plan for the EGD only tomorrow. If normal, will revisit proceeding with the colonoscopy later in the week. COVID negative. Qualifiers: Anemia type: iron deficiency Iron deficiency anemia type: chronic blood loss Qualified Code(s): D50.0 - Iron deficiency anemia secondary to blood loss (chronic) History of Present Illness Narrative: This patient presented to the ER with shortness of breath and failure to thrive. He was noted to be anemic (which is chronic but worse than prior) with heme positive stools. His HgB has drifted down and he has required transfusion. He denies abdominal pain or bloody/black stools. He had a similar issue last year. EGD at the time showed duodenitis and Barretts esophagus. His last colonoscopy in 2014 showed polyps. [facility] Medical History Alcohol use disorder Atrial fibrillation Cooper's esophagus COPD (chronic obstructive pulmonary disease) Depression Failure to thrive Hematemesis Insomnia Radicular pain of right lower extremity Renal insufficiency Right knee pain Smoking hx UTI (urinary tract infection) Surgical History H/O esophagogastroduodenoscopy (~04/2019) Social History Smoking/Tobacco Use Status: Current every day Tobacco Type: cigarettes Years smoked: 50 Smoking risk assessment performed?: Yes Alcohol Intake: current Alcohol Intake frequency: 3 or more drinks per day Drug use: Never Substance use type: does not use Do you feel safe at home: Yes Do you feel safe in your relationship?: Yes Additional Social history: Lives alone in apartment in [facility] for past ~6 years, closest family brother Owen in [place], [place] 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 Results Last Vital Signs Temp 98.1 F 08/01/20 07:56 Pulse 77 08/01/20 07:56 Resp 18 08/01/20 07:56 BP 137/71 08/01/20 07:56 Pulse Ox 95 08/01/20 07:56 Labs Result diagrams: 08/01/20 07:00 08/01/20 07:00 Labs: Laboratory Results - last 24 hr 07/30/20 07/30/20 08/01/20 13:18 21:45 07:00 WBC RBC Hgb Hct MCV MCH MCHC RDW Plt Count MPV Immature Gran % Neutrophils % Lymphocytes % Monocytes % Eosinophils % Basophils % Nucleated RBC % Absolute Neutrophils Absolute Lymphocytes Absolute Monocytes Absolute Eosinophils Absolute Basophils RBC Morphology Polychromasia Hypochromasia Poikilocytosis Anisocytosis Microcytosis Macrocytosis Sodium 136 Potassium 4.7 D Chloride 104 Carbon Dioxide 27.0 Anion Gap 5.0 BUN 44 H Creatinine 1.77 H Estimated GFR/1.73 m2 37.79 Glucose 107 H Calcium 7.5 L Magnesium 1.9 SARS-CoV-2 Source Nasopharynx SARS-CoV-2 (PCR) Not detected Patient ABO/Rh O Positive Antibody Screen Negative Crossmatch See Detail 08/01/20 07:00 WBC 4.01 L RBC 2.70 L Hgb 6.8 L* Hct 22.1 L MCV 81.9 MCH 25.2 L MCHC 30.8 L RDW 20.9 H Plt Count 151 MPV 10.6 Immature Gran % 1.7 Neutrophils % 56.5 Lymphocytes % 24.2 Monocytes % 15.2 Eosinophils % 1.7 Basophils % 0.7 Nucleated RBC % 1 Absolute Neutrophils 2.27 Absolute Lymphocytes 0.97 L Absolute Monocytes 0.61 Absolute Eosinophils 0.07 Absolute Basophils 0.03 RBC Morphology See below Polychromasia Present Hypochromasia 3+ Poikilocytosis 1+ Anisocytosis 3+ Microcytosis 2+ Macrocytosis 2+ Sodium Potassium Chloride Carbon Dioxide Anion Gap BUN Creatinine Estimated GFR/1.73 m2 Glucose Calcium Magnesium SARS-CoV-2 Source SARS-CoV-2 (PCR) Patient ABO/Rh Antibody Screen Crossmatch
--- NOTE | 2020-08-01 16:10 | PT.INNT ---
Date of service: 08/01/20 Time of Service: 16:10 PT Notes Visit Reasons: GI BLEED, DYDRATION, COPD EXAC Rufino refused a second session in the afternoon stating that he is all worn out and would like to rest. States that he will try and work with this provider tommorrow morning after he takes a good rest today. Will plan on contiuing to work with patient tomorrow morning.
[2020-08-01] MEDS: Furosemide 20 MG/2 ML VIAL IVP (17:08)
[2020-08-01 17:21] LABS: Bilirubin Negative (Negative); Blood Negative (Negative); Clarity Clear (Clear); Glucose Negative (Negative); Ketones Negative (Negative); Leukocyte Esterase Small (Negative); Nitrite Negative (Negative); Specific Gravity 1.015 (1.005-1.025); Urobilinogen 0.2 EU/dL (Up TO 0.2); pH 5.5 (5-8)
[2020-08-01 17:29] LABS: Bacteria Moderate HPF (Negative); C & S Indicated? Yes; Casts Negative LPF (Negative); Crystals Negative HPF (Negative); Epithelial Cells Rare HPF (Negative); Mucus Negative (Negative); RBC 0-2 HPF (0-2); WBC 20-50 HPF (0-5)
--- NOTE | 2020-08-01 20:21 | PCNE_ITS ---
Date of service: 08/01/20 Time of Service: 17:21 History of Present Illness Narrative: Patient is a 75-year-old male whom I have met in the past. He has a history of alcohol abuse, COPD, atrial fibrillation and most recently GI bleed. I am meeting with him to discuss goals of care and CODE STATUS. We have discussed this in the past. He thought he would like CPR, but admits he is uncertain. He could tell me the circumstances surrounding his recent admission. He admits he returned to drinking after he was back in his apartment. Consults Consult date: 08/01/20 Requesting physician: Ca Arnold Assessment and Plan Assessment and plan (1) Failure to thrive: Status: Acute (2) COPD (chronic obstructive pulmonary disease): Status: Acute (3) Alcohol use disorder: Status: Acute (4) GI bleed: Status: Chronic (5) Palliative care patient: Status: Acute Assessment and plan: Khoi is a 75 year old male with long history of alcoholism and recent GI Bleed. He realizes he may not be able to live by himself, but really likes his apartment. He feels strongly that his apartment needs to be cleaned before he could return to it. He continues to want CPR and is a FULL CODE. Khoi stated that he was very tired from the day's activities. He invited me to come and visit him again, but didn't want to continue the discussion tonight. Thank you very much for this consult. I will give Khoi some time to rest, but will return at a later time to discuss his goals of care. I have spent more than 50% of time in counseling with this patient. Review of Systems Constitutional Constitutional: Reports weakness Eyes Eyes: Reports as per HPI and Reports change in vision ENT Ears, Nose, Mouth, and Throat: Reports dry mouth and Denies odynophagia Cardiovascular Cardiovascular: Denies chest pain Respiratory Respiratory: Reports cough Gastrointestinal Gastrointestinal: Reports change in bowel habits and Denies odynophagia Musculoskeletal Musculoskeletal: Reports abnormal gait and Reports muscle weakness Neurologic Neurologic: Reports abnormal gait and Reports weakness [facility] Medical History Alcohol use disorder Atrial fibrillation Cooper's esophagus COPD (chronic obstructive pulmonary disease) Depression Failure to thrive Hematemesis Insomnia Radicular pain of right lower extremity Renal insufficiency Right knee pain Smoking hx UTI (urinary tract infection) Surgical History H/O esophagogastroduodenoscopy (~04/2019) Social History Smoking/Tobacco Use Status: Current every day Tobacco Type: cigarettes Years smoked: 50 Smoking risk assessment performed?: Yes Alcohol Intake: current Alcohol Intake frequency: 3 or more drinks per day Drug use: Never Substance use type: does not use Do you feel safe at home: Yes Do you feel safe in your relationship?: Yes Additional Social history: Lives alone in apartment in [facility] for past ~6 years, closest family brother Owen in [place], [place] 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[employer], 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[place] Results Last Vital Signs Temp 98.8 F 08/01/20 15:40 Pulse 73 08/01/20 15:40 Resp 19 08/01/20 15:40 BP 128/72 08/01/20 15:40 Pulse Ox 97 08/01/20 15:40 Labs Result diagrams: 08/01/20 07:00 08/01/20 07:00 Labs: Laboratory Results - last 24 hr 07/30/20 07/30/20 08/01/20 13:18 21:45 07:00 WBC RBC Hgb Hct MCV MCH MCHC RDW Plt Count MPV Immature Gran % Neutrophils % Lymphocytes % Monocytes % Eosinophils % Basophils % Nucleated RBC % Absolute Neutrophils Absolute Lymphocytes Absolute Monocytes Absolute Eosinophils Absolute Basophils RBC Morphology Polychromasia Hypochromasia Poikilocytosis Anisocytosis Microcytosis Macrocytosis Sodium 136 Potassium 4.7 D Chloride 104 Carbon Dioxide 27.0 Anion Gap 5.0 BUN 44 H Creatinine 1.77 H Estimated GFR/1.73 m2 37.79 Glucose 107 H Calcium 7.5 L Magnesium 1.9 Urine Color Urine Clarity Urine pH Ur Specific [place] Urine Protein Urine Ketones Urine Blood Urine Nitrite Urine Bilirubin Urine Urobilinogen Ur Leukocyte Esterase Urine RBC Urine WBC Ur Epithelial Cells Urine Crystals Urine Bacteria Urine Casts Urine Mucus Ur Culture Indicated? Urine Glucose SARS-CoV-2 Source Nasopharynx SARS-CoV-2 (PCR) Not detected Patient ABO/Rh O Positive Antibody Screen Negative Crossmatch See Detail 08/01/20 08/01/20 07:00 16:50 WBC 4.01 L RBC 2.70 L Hgb 6.8 L* Hct 22.1 L MCV 81.9 MCH 25.2 L MCHC 30.8 L RDW 20.9 H Plt Count 151 MPV 10.6 Immature Gran % 1.7 Neutrophils % 56.5 Lymphocytes % 24.2 Monocytes % 15.2 Eosinophils % 1.7 Basophils % 0.7 Nucleated RBC % 1 Absolute Neutrophils 2.27 Absolute Lymphocytes 0.97 L Absolute Monocytes 0.61 Absolute Eosinophils 0.07 Absolute Basophils 0.03 RBC Morphology See below Polychromasia Present Hypochromasia 3+ Poikilocytosis 1+ Anisocytosis 3+ Microcytosis 2+ Macrocytosis 2+ Sodium Potassium Chloride Carbon Dioxide Anion Gap BUN Creatinine Estimated GFR/1.73 m2 Glucose Calcium Magnesium Urine Color Yellow Urine Clarity Clear Urine pH 5.5 Ur Specific [place] 1.015 Urine Protein Negative Urine Ketones Negative Urine Blood Negative Urine Nitrite Negative Urine Bilirubin Negative Urine Urobilinogen 0.2 Ur Leukocyte Esterase Small H Urine RBC 0-2 Urine WBC 20-50 H Ur Epithelial Cells Rare Urine Crystals Negative Urine Bacteria Moderate Urine Casts Negative Urine Mucus Negative Ur Culture Indicated? Yes Urine Glucose Negative SARS-CoV-2 Source SARS-CoV-2 (PCR) Patient ABO/Rh Antibody Screen Crossmatch
[2020-08-01] MEDS: Melatonin 3 MG TAB 9 MG PO (21:00)
[2020-08-02] MEDS: Normal Saline 1,000 ML 80 ML IV ×3 (00:12→19:56)
[2020-08-02 03:23] VITALS: BP 149/82; PULSE 81; RESP 18; TEMP 37.8; O2SAT 96
[2020-08-02 07:16] VITALS: BP 157/81; PULSE 100; RESP 18; TEMP 37.2; O2SAT 96
--- NOTE | 2020-08-02 07:27 | OT.INNT ---
Date of service: 08/02/20 Time of Service: 07:25 Occupational Therapy Notes 08/02/20 OT attempted to see pt, he was lying in bed when OT arrived. He refused OT services today, reporting that his depression is getting the best of him and he can't eat as he has testing today so he is going to rest till he can eat. He refused bathing, dressing, oral hygiene and any type of ADLs at this time. OT does educate pt that he may feel better performing his ADLs but he refuses and denies turning on his lights as he states there is no reason to have them on. OT and pt discuss the importance of performing his ADLs and he agrees to perform at tomorrows session. OT will re-assess pt at this time. [facility]
[2020-08-02] MEDS: Ipratropium/Albuterol 4 GM 120 PUFF INH IH ×2 (07:59→19:52)
[2020-08-02] MEDS: Budesonide/Formoterol 160/4.5 6 GM 60 PUFF INH IH ×2 (08:00→19:52)
[2020-08-02] MEDS: dilTIAZem 30 MG TAB PO ×3 (08:53→19:53)
[2020-08-02] MEDS: Pantoprazole 40 MG VIAL IVP ×2 (08:54→19:53)
[2020-08-02] MEDS: Normal Saline Flush 10 ML SYR IVP (08:55)
[2020-08-02 09:11] LABS: Abs Immature Grans 0.08 10^3/uL (0.0-0.06); Absolute Basophil Count 0.01 10^3/uL (0.0-0.2); Absolute Eosinophil Count 0.07 10^3/uL (0.0-0.7); Absolute Lymphocyte Count 0.75 10^3/uL (1.2-3.4); Absolute Monocyte Count 0.75 10^3/uL (0.1-0.8); Absolute Neutrophil Count 3.92 10^3/uL (1.2-6.7); Basophils % 0.2; Eosinophils % 1.3; HCT 28.4 % (40.0-50.0); HGB 9.2 g/dL (13.5-17.5); Immature Grans % 1.4; Lymphocytes % 13.4; MCHC 32.4 % (32.0-36.0); MCV 83.3 fL (80-95); MPV 9.8 fL (8.0-11.0); Monocytes % 13.4; Neutrophils % 70.3; Nucleated RBC 0 %; Platelet Count 165 10^3/uL (130-400); RBC 3.41 10^6/uL (4.36-5.78); RDW 20.3 % (11.8-14.1); RDW-SD 59.4 fL; WBC 5.58 10^3/uL (4.4-10.8)
--- NOTE | 2020-08-02 09:15 | PGE_ITS ---
Documented by User: MARISELA Cm 08/02/20 09:17 Date of Service Date of service: 08/02/20 Time of Service: 09:15 Assessment and Plan Assessment and plan (1) Anemia: Status: Chronic Assessment and plan: Continue NPO status Activity as tolerated. EGD later today with Dr. Snyder Qualifiers: Anemia type: iron deficiency Iron deficiency anemia type: chronic blood loss Qualified Code(s): D50.0 - Iron deficiency anemia secondary to blood loss (chronic) Subjective Subjective Interval history since last seen: Today is going to be a long day. Patient denies having any pain at this time. He reports that he is very tired today. Exam Const General: cooperative and no acute distress Orientation: alert and awake Resp Effort & Inspection: normal respiratory effort, no audible wheezes and no cough Objective Last Vital Signs Temp 37.2 C 08/02/20 07:16 Pulse 100 H 08/02/20 07:16 Resp 18 08/02/20 07:16 BP 157/81 H 08/02/20 07:16 Pulse Ox 96 08/02/20 07:16 Laboratory Results - last 24 hr 07/30/20 08/01/20 08/02/20 13:18 16:50 09:05 WBC 5.58 D RBC 3.41 L Hgb 9.2 L D Hct 28.4 L D MCV 83.3 MCH 27.0 MCHC 32.4 RDW 20.3 H Plt Count 165 MPV 9.8 Immature Gran % 1.4 Neutrophils % 70.3 Lymphocytes % 13.4 Monocytes % 13.4 Eosinophils % 1.3 Basophils % 0.2 Nucleated RBC % 0 Absolute Neutrophils 3.92 Absolute Lymphocytes 0.75 L Absolute Monocytes 0.75 Absolute Eosinophils 0.07 Absolute Basophils 0.01 Urine Color Yellow Urine Clarity Clear Urine pH 5.5 Ur Specific [place] 1.015 Urine Protein Negative Urine Ketones Negative Urine Blood Negative Urine Nitrite Negative Urine Bilirubin Negative Urine Urobilinogen 0.2 Ur Leukocyte Esterase Small H Urine RBC 0-2 Urine WBC 20-50 H Ur Epithelial Cells Rare Urine Crystals Negative Urine Bacteria Moderate Urine Casts Negative Urine Mucus Negative Ur Culture Indicated? Yes Urine Glucose Negative Patient ABO/Rh O Positive Antibody Screen Negative Crossmatch See Detail Documented by User: Kateryna Snyder MD 08/02/20 12:38
[2020-08-02 09:21] LABS: Anion Gap 8.2 mmol/L (3-11); BUN 28 mg/dL (7-18); CO2 24.8 mmol/L (21.0-32.0); CREATININE 1.42 mg/dL (0.70-1.30); Calcium 7.8 mg/dL (8.5-10.1); Chloride 102 mmol/L (98-107); Estimated GFR 48.73 (mL/min/1.73m2); Glucose 105 mg/dL (74-106); Potassium 3.9 mmol/L (3.5-5.1); Sodium 135 mmol/L (136-145)
[2020-08-02] MEDS: LORazepam 1 MG TAB PO/SL (10:52)
[2020-08-02] MEDS: cefTRIAXone 1 GM/50 ML BAG IVPB (10:53)
--- NOTE | 2020-08-02 11:19 | PHA.REVIEW ---
Pharmacy Admission Review - Admission Clinical Review (Last Reviewed 08/01/20 @ 14:08 by Kateryna Snyder MD) Palliative care patient (Acute) Urinary retention (Acute) Tobacco abuse disorder (Acute) DVT prophylaxis (Acute) Discharge planning issues (Acute) Failure to thrive (Acute) Hypomagnesemia (Acute) COPD (chronic obstructive pulmonary disease) (Acute) SAUL (acute kidney injury) (Acute) Alcohol use disorder (Acute) bupropion Adverse Reaction (Severe, Verified 07/30/20 14:35) seizures Height 5 ft 5 in Weight 69 kg - Renal Dosing Renal Dosing: BUN 28 mg/dL (7-18) H D 08/02/20 09:05 Creatinine 1.42 mg/dL (0.70-1.30) H 08/02/20 09:05 Medications needing adjustments: Reviewed (CRCL ~39ML/MIN) - Anticoagulation Anticoagulation: Hgb 9.2 g/dL (13.5-17.5) L D 08/02/20 09:05 Hct 28.4 % (40.0-50.0) L D 08/02/20 09:05 Plt Count 165 10^3/uL (130-400) 08/02/20 09:05 Creatinine 1.42 mg/dL (0.70-1.30) H 08/02/20 09:05 DVT Prohphylaxis: N/A (anemia) Therapeutic Anticoagulation: N/A - Relevant Labs Sodium 135 mmol/L (136-145) L 08/02/20 09:05 Potassium 3.9 mmol/L (3.5-5.1) 08/02/20 09:05 Chloride 102 mmol/L (98-107) 08/02/20 09:05 Magnesium 1.9 mg/dL (1.8-2.4) 08/01/20 07:00 - DM Control DM Control: Glucose 105 mg/dL (74-106) 08/02/20 09:05 - Heart Failure/DE Heart Failure/DE: Troponin I < 0.05 ng/mL (<0.06) 07/30/20 14:45 NT-Pro-B Natriuret Pep 1129 pg/mL (<300) H 07/30/20 11:45 - BP Control BP Control: Blood Pressure 157/81 Blood Pressure 149/82 If elevated: Reviewed - Qtc Review If Elevated: N/A (451) - IV to PO Switch IV Medications: Reviewed (IV ABX, IV PPI) - Home Meds Home Med List reviewed: Reviewed (nothing listed as filled at outpt pharmacy since 09/17) - Comments Comments/Follow Ups: upper endoscopy scheduled for today. may need to be placed in SNF on discharge. palliative consult done
[2020-08-02 11:23] VITALS: BP 98/66; PULSE 92; RESP 16; TEMP 36.6; O2SAT 97
--- NOTE | 2020-08-02 11:44 | PDOC.CMPRO ---
Care Management Progress Note S/O: Khoi was lying in bed. He recognized this television writer from prior admissions. He shared feelings around exhaustion; CM agreed to come back in the morning. CM continues to follow. A: 75 year old male admitted to [facility] 07/30/20 for GI bleed, dehydration, COPD exacerbation. P: Anticipate Khoi will transfer to SNF once ready per MD, he remains acutely ill at this time. Referral faxed to [facility] for review. Transport to be determined by mobility. CM continues to follow.
--- NOTE | 2020-08-02 11:58 | CMPROGNOTE_ITS ---
Care Management Progress Note S/O: Khoi was lying in bed, preparing to work with PT. He reported feeling weak and tired, but agreeable to standing a pivoting to the chair. Khoi was made NPO after midnight for EGD procedure with duodenal, gastric, esophageal biopsies, scheduled for this afternoon. He met with Dr. Molina for a brief Palliative consult last night, and requested she return as he was tired and wanted to rest. She did note that he verbalized concerns that he may not be able to live on his own, but likes his apartment and would like it cleaned before he returns. He continues to struggle with alcohol dependence, and reports he returned to drinking when he returned home from previous hospitalizations and rehab stays. 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 His brother, Owen is his closest relative and resides in [place], [place]. It appears Khoi is not currently in contact with either of his sons. CM spoke with Felisa Terrell [facility] who reported that Khoi was opened for services and saw a PCP in August 2019, but declined ongoing services three months later. Felisa reported it would be helpful if CM faxed DC summary, and to notify if Khoi is interested in re-connecting to service supports at the [facility]. A: 75 year old male admitted to [facility] 07/30/20 for GI bleed, dehydration, COPD exacerbation. P: Anticipate Khoi will transfer to SNF once ready per MD, he remains acutely ill at this time. Khoi is verbalizing that he would like to return home when able. Referral faxed to [facility] for review, undetermined if Kohi will be agreeable to SNF transfer when medically ready. CM to discuss re-connection to [facility] services prior to discharge, and fax DC summary to MASON Chavis at the [facility] when available. CM continues to follow. PT is currently recommending SNF for continued strengthening. Khoi resides alone in an apartment with 15 steps to get in with a rail on the right going up. PT reports he was independent with all aspects of ADLs without the need for an assistive ambulatory device nor adaptive equipment although he stated that recently it has been very difficult to do so due to weakness and uncontrolled alcoholism. PT is also recommending a FWW for Khoi.
--- NOTE | 2020-08-02 12:20 | STOM_PTH ---
PATIENT: Khoi Calero LOC: U#:[id number] AGE/SX: 75/M ROOM: [id number] RE07/30/[address]: Ca Arnold : 1945 BED: A DIS: 08/06/2020 SPEC #: [id number] RECD: 08/02/20 13:11 STATUS: SOUBlanco REQ #: [id number] KARL: 08/02/20 12:[address]: Ca Arnold DEPT: Surgical Specimen RECD BY: Carina Dozier ENTERED: 08/02/20 13:13 SP TYPE: STOMACH OTHR DR: Viji Brown MD Mitchell J. Sullivan, MD [facility] Tissues: 1 - BIOPSY BOWEL 2 - STOMACH BIOPSY 3 - ESOPHAGUS BIOPSY Procedures: GROSS AND MICRO LEVEL 4 Comments: [id number] ([id number] [facility]#)
--- NOTE | 2020-08-02 12:30 | W.NUTRFU ---
Date of service: 08/02/20 Time of Service: 12:30 Nutritional Follow up NOTE: 75 year old male admitted with SAUL, GI bleed with long standing hx of ETOH abuse, failure to thrive. BMI wnl for age and stable > 12 months. Meds include MVI, folate, thiamine for repletion. Currently NPO for EGD today. Pallative care following. Will continue to follow and support. Time Spent in Nutritional Counseling and Treatment: 0
--- NOTE | 2020-08-02 12:36 | PGE_ITS ---
Date of Service Date of service: 08/02/20 Time of Service: 12:37 Assessment and Plan Assessment and plan (1) Urinary retention: Status: Acute Assessment and plan: bladder scan with cath for residual greater than 300 cc. increase tamsulosin, consult urology ceftriaxone while awaiting culture report (2) GI bleed: Status: Chronic Assessment and plan: received 2 unit PRBC with H&H9.11/27.4 continue pantoprazole BID, continue carafate upper endoscopy shows 2 ulcers, no active bleeding recommendations for colonoscopy which patient declined, will re-visit for possible on (3) SAUL (acute kidney injury): Status: Acute Assessment and plan: improved to baseline follow kidney funtion, avoid nephrotoxic drugs. renal dosing as needed. (4) COPD (chronic obstructive pulmonary disease): Status: Acute Assessment and plan: stable, resume home meds and continue to assess. no IV steroids for now (5) Alcohol use disorder: Status: Acute Assessment and plan: ciwa protocol, no withdrawal. watch liver function has had no history of DT or withdrawal in the past continue thiamine (6) Hypomagnesemia: Status: Acute Assessment and plan: replete and follow (7) Failure to thrive: Status: Acute Assessment and plan: case management referral (8) Tobacco abuse disorder: Status: Acute Assessment and plan: nicotrol inhaler as needed while hospitalized (9) DVT prophylaxis: Status: Acute Assessment and plan: no pharmacological in setting of GI bleed teds scds (10) Discharge planning issues: Status: Acute Assessment and plan: may need placement discussed with DR Arnold who is in agreement Subjective Subjective Patient reports: no new complaints, tolerating liquids well, tolerating a regular diet, voiding w/o difficulty and afebrile Exam Const General: no acute distress, disheveled, frail appearing and ill appearing chronically Nutritional Appearance: average body habitus Orientation: alert, awake and oriented x3 HENMT Head: normal to inspection, normocephalic and atraumatic Mouth: moist mucous membranes abnormal (dry with exudate) Resp Effort & Inspection: normal respiratory effort, no audible wheezes and no respiratory distress Auscultation: diminished lung sounds and wheezes Cardio Rate: regular rate Rhythm: abnormal rhythm GI Inspection: normal to inspection Palpation: soft Auscultation: normal bowel sounds Skin General skin exam: other (filthy, nails long with dirt. scattered small scabs on lower extremities) Neuro General: patient alert, patient awake, patient oriented x3 and moves all extremities Extrem General: normal to inspection Objective Last Vital Signs Temp 36.6 C 08/02/20 11:23 Pulse 92 H 08/02/20 11:23 Resp 16 08/02/20 11:23 BP 98/66 L 08/02/20 11:23 Pulse Ox 97 08/02/20 11:23 Laboratory Results - last 24 hr 07/30/20 08/01/20 08/02/20 13:18 16:50 09:05 WBC RBC Hgb Hct MCV MCH MCHC RDW Plt Count MPV Immature Gran % Neutrophils % Lymphocytes % Monocytes % Eosinophils % Basophils % Nucleated RBC % Absolute Neutrophils Absolute Lymphocytes Absolute Monocytes Absolute Eosinophils Absolute Basophils Sodium 135 L Potassium 3.9 Chloride 102 Carbon Dioxide 24.8 Anion Gap 8.2 BUN 28 H D Creatinine 1.42 H Estimated GFR/1.73 m2 48.73 Glucose 105 Calcium 7.8 L Urine Color Yellow Urine Clarity Clear Urine pH 5.5 Ur Specific [place] 1.015 Urine Protein Negative Urine Ketones Negative Urine Blood Negative Urine Nitrite Negative Urine Bilirubin Negative Urine Urobilinogen 0.2 Ur Leukocyte Esterase Small H Urine RBC 0-2 Urine WBC 20-50 H Ur Epithelial Cells Rare Urine Crystals Negative Urine Bacteria Moderate Urine Casts Negative Urine Mucus Negative Ur Culture Indicated? Yes Urine Glucose Negative Crossmatch See Detail 08/02/20 09:05 WBC 5.58 D RBC 3.41 L Hgb 9.2 L D Hct 28.4 L D MCV 83.3 MCH 27.0 MCHC 32.4 RDW 20.3 H Plt Count 165 MPV 9.8 Immature Gran % 1.4 Neutrophils % 70.3 Lymphocytes % 13.4 Monocytes % 13.4 Eosinophils % 1.3 Basophils % 0.2 Nucleated RBC % 0 Absolute Neutrophils 3.92 Absolute Lymphocytes 0.75 L Absolute Monocytes 0.75 Absolute Eosinophils 0.07 Absolute Basophils 0.01 Sodium Potassium Chloride Carbon Dioxide Anion Gap BUN Creatinine Estimated GFR/1.73 m2 Glucose Calcium Urine Color Urine Clarity Urine pH Ur Specific [place] Urine Protein Urine Ketones Urine Blood Urine Nitrite Urine Bilirubin Urine Urobilinogen Ur Leukocyte Esterase Urine RBC Urine WBC Ur Epithelial Cells Urine Crystals Urine Bacteria Urine Casts Urine Mucus Ur Culture Indicated? Urine Glucose Crossmatch
--- NOTE | 2020-08-02 12:38 | W.PM.ENDDOP ---
Date of service: 08/02/20 Time of Service: 12:38 Endoscopy Report DATE OF PROCEDURE: 08/02/20 PRE-OP DIAGNOSIS: Anemia, heme positive stool POST-OP DIAGNOSIS: other (Shallow gastric ulcers, Barretts esophagus) PROCEDURE: EGD with duodenal, gastric, esophageal biopsies SURGEON: Kateryna Snyder ANESTHESIA: MAC INDICATIONS: This 75 year old man presented with failure to thrive and was noted to have microcytic anemia with a HgB of 6.8 and heme positive stools. He had no evidence of bleeding or other symptoms. EGD last year showed Barretts and duodenitis. PROCEDURE DESCRIPTION: The patient was placed in the left lateral position and propofol titrated to sedation. The endoscope was advanced into the esophagus under direct visualization. The scope was passed through the stomach and into the duodenum. There was mild duodenitis but no ulceration noted. Biopsies were taken from the second portion of the duodenum to evaluate for celiac disease. The stomach itself showed a few shallow and chronic appearing ulcers near the pylorus. There was no stigmata of recent bleeding. Biopsies were taken from the periphery of the ulcers. Retroflexed view of the fundus and lesser curvature was normal. The GE junction was inspected and showed no significant stricture, inflammation, masses. There was a short segment of Barretts that was biopsies. The scope was slowly withdrawn with no other esophageal lesions found. The patient tolerated the procedure well and was stable to recovery.
[2020-08-02 13:05] VITALS: BP 126/80; PULSE 84; RESP 18; TEMP 36.2; O2SAT 95
[2020-08-02 13:29] VITALS: BP 133/75; PULSE 80; RESP 18; TEMP 36.3; O2SAT 93
--- NOTE | 2020-08-02 14:15 | PT.INTREAT ---
Date of service: 08/02/20 Time of Service: 10:18 PT Notes Visit Reasons: GI BLEED, DYDRATION, COPD EXAC Inpatient Physical Therapy Treatment Note [facility] Date: 08/02/2020 PRECAUTIONS: Fall. Standard. Activity as tolerated. SUBJECTIVE: Agreeable to a short PT session today after much encouragement from this PT about achieving his goals. States that he has a procedure that needs to be done later this afternoon. Refused two attempts at 2nd PT session in the afternoon. OBJECTIVE: Supine in bed. PAIN: None reported BED MOBILITY/TRANSFERS Supine-sit: Standby assist with HOB at 45 degrees Sit-stand: Contact-guard assist Stand-sit: Contact-guard assist Bed-Chair: Contact-guard assist GAIT Assistive Device: Front wheeled walker Weight bearing: Full weight bearing Assist: Contact-guard assist Distance: 8 steps Deviation: Continues to be shaky and hesitant with each limb advancement. Step height decreased. THEREX: Refused. ASSESSMENT: Rufino continues to require extensive encouragement to participate in therapy. Requires frequent reminder of his goals each session to increase motivation level. Will assess for the benefit of doing OD sessions as opposed to BID session as he tends to be fatigued later in the day. PLAN: Continue with PT POC as initially established. May need to go to a SNF for short-term rehab prior to discharge to home. TREATMENT CODE/TIME: 32405 x 32 minutes beginning at 10:18 AM. Refused afternoon session attempts x2.
[2020-08-02] MEDS: Acetaminophen 500 MG TAB 1000 MG PO ×2 (14:27→22:04)
[2020-08-02] MEDS: DULoxetine 30 MG CAP PO (14:29)
[2020-08-02] MEDS: Gabapentin 100 MG CAP 200 MG PO ×2 (14:30→19:53)
[2020-08-02] MEDS: Multivitamin TAB 1 TAB PO (14:31)
[2020-08-02] MEDS: Thiamine 100 MG TAB PO (14:33)
[2020-08-02] MEDS: Tamsulosin 0.4 MG CAPCR 0.8 MG PO (14:33)
[2020-08-02] MEDS: Magnesium Oxide 400 MG TAB PO ×2 (14:34→22:04)
[2020-08-02] MEDS: Docusate Sodium 100 MG CAP PO ×2 (14:36→19:54)
[2020-08-02] MEDS: Ascorbic Acid 500 MG TAB PO ×2 (14:36→19:53)
[2020-08-02] MEDS: Sucralfate 1 GM TAB PO ×2 (14:38→22:05)
[2020-08-02] MEDS: Ferrous Sulfate 325 MG TAB PO ×2 (14:39→19:53)
[2020-08-02 15:46] VITALS: BP 130/72; PULSE 80; RESP 18; TEMP 36.6; O2SAT 93
[2020-08-02] MEDS: Melatonin 3 MG TAB 9 MG PO (22:04)
[2020-08-03 03:25] VITALS: BP 149/81; PULSE 85; RESP 18; TEMP 37.4; O2SAT 94
[2020-08-03 07:14] LABS: Abs Immature Grans 0.06 10^3/uL (0.0-0.06); Absolute Basophil Count 0.01 10^3/uL (0.0-0.2); Absolute Eosinophil Count 0.06 10^3/uL (0.0-0.7); Absolute Lymphocyte Count 0.45 10^3/uL (1.2-3.4); Absolute Monocyte Count 0.56 10^3/uL (0.1-0.8); Absolute Neutrophil Count 3.21 10^3/uL (1.2-6.7); Basophils % 0.2; Eosinophils % 1.4; HCT 27.6 % (40.0-50.0); HGB 8.7 g/dL (13.5-17.5); Immature Grans % 1.4; Lymphocytes % 10.3; MCH 26.8 pg (27.0-33.0); MCHC 31.5 % (32.0-36.0); MCV 84.9 fL (80-95); MPV 9.9 fL (8.0-11.0); Monocytes % 12.9; Neutrophils % 73.8; Nucleated RBC 0 %; Platelet Count 170 10^3/uL (130-400); RBC 3.25 10^6/uL (4.36-5.78); RDW 21.1 % (11.8-14.1); RDW-SD 62.8 fL; WBC 4.35 10^3/uL (4.4-10.8)
[2020-08-03 07:37] LABS: BUN 23 mg/dL (7-18); CO2 23.2 mmol/L (21.0-32.0); Calcium 7.5 mg/dL (8.5-10.1); Estimated GFR 45.75 (mL/min/1.73m2); Glucose 140 mg/dL (74-106)
[2020-08-03 07:53] VITALS: BP 130/84; PULSE 82; RESP 20; TEMP 37.2; O2SAT 97
[2020-08-03] MEDS: Budesonide/Formoterol 160/4.5 6 GM 60 PUFF INH IH ×2 (08:16→21:35)
[2020-08-03] MEDS: Ipratropium/Albuterol 4 GM 120 PUFF INH IH ×4 (08:16→21:35)
--- NOTE | 2020-08-03 08:54 | OTTR_ITS ---
Date of service: 08/03/20 Time of Service: 08:40 Occupational Therapy Notes Occupational Therapy Inpatient Treatment Note Date: 08/03/20 PRECAUTIONS: Fall, standard, Full SUBJECTIVE: Pt was lying in bed when OT arrived. He was agreeable to OT session only after he ate his breakfast. OBJECTIVE: PAIN:no c/o pain FUNCTIONAL MOBILITY Rolling L/R: (I) Supine-sit: (I) Sit-supine: (I) with increased performance time. BATHING: sitting on side of the bed with max (A) set up/clean up Upper Body: (I) with vc throughout, denies hair Lower Body: (I) (B) LE with vc for hand placement for stability DRESSING: Upper Extremity: Min (A) [facility] gown Lower Extremity: NT ASSESSMENT/PLAN: Pt was agreeable to perform sitting ADLs although required encouragement during ADLs for performance. He has ideal ROM, decreased sitting tolerance and improvements in his functional activity tolerance which he was able to tolerate 15 minutes today compared to 5 minutes at initial evaluation. TREATMENT CODES/TIME: 26608, 15 minutes (08;40) Viij Brown OTR/L [facility]
[2020-08-03] MEDS: Pantoprazole 40 MG VIAL IVP ×2 (09:01→21:36)
[2020-08-03] MEDS: Sucralfate 1 GM TAB PO ×4 (09:01→21:27)
[2020-08-03] MEDS: Normal Saline Flush 10 ML SYR IVP ×2 (09:01→21:36)
[2020-08-03] MEDS: dilTIAZem 30 MG TAB PO ×3 (09:02→21:27)
[2020-08-03] MEDS: Ascorbic Acid 500 MG TAB PO ×2 (09:02→21:27)
[2020-08-03] MEDS: Ferrous Sulfate 325 MG TAB PO ×2 (09:02→21:28)
[2020-08-03] MEDS: Thiamine 100 MG TAB PO (09:02)
[2020-08-03] MEDS: Docusate Sodium 100 MG CAP PO ×2 (09:02→21:27)
[2020-08-03] MEDS: Multivitamin TAB 1 TAB PO (09:02)
[2020-08-03] MEDS: Tamsulosin 0.4 MG CAPCR 0.8 MG PO (09:03)
[2020-08-03] MEDS: DULoxetine 30 MG CAP PO (09:03)
[2020-08-03] MEDS: Gabapentin 100 MG CAP 200 MG PO ×3 (09:03→21:29)
[2020-08-03 09:13] LABS: Potassium 3.8 mmol/L (3.5-5.1); Sodium 136 mmol/L (136-145)
[2020-08-03 09:15] LABS: Chloride 103 mmol/L (98-107)
[2020-08-03 09:16] LABS: Anion Gap 9.8 mmol/L (3-11)
[2020-08-03] MEDS: Normal Saline 1,000 ML 80 ML IV ×2 (09:20→22:42)
--- NOTE | 2020-08-03 09:29 | PT.INTREAT ---
Date of service: 08/03/20 Time of Service: 09:00 PT Notes Visit Reasons: GI BLEED, DYDRATION, COPD EXAC Inpatient Physical Therapy Treatment Note [facility] Date: 08/03/2020 PRECAUTIONS: Fall, Activity as Tolerated SUBJECTIVE: Khoi states that he is not feeling well this morning. He states I just wish I could have a different attitude and I want to walk, I want to go back home. OBJECTIVE: Patient laying in bed, incontinent of urine and stool, nursing also in room and aware. PAIN: No c/o pain BED MOBILITY/TRANSFERS Supine-sit: SBA with HOB at 40 degrees Sit-stand: CGA Stand-sit: CGA Bed-Chair: CGA Chair-bed: CGA GAIT Assistive Device: FWW Weight bearing: Full Assist: CGA Distance: 20' x2 Deviation: Standing rest x1, c/o increased fatigue THEREX: Patient was instructed in LE strengthening exercises, completing low reps due to fatigue. See flow sheet for specifics. ASSESSMENT: Patient tolerated session with complaints of increased fatigue with gait training, although was able to tolerate a significant progression in gait distance with FWW support. He would benefit from continued gait and transfer training, as well as global strengthening for improved mobility and progression toward baseline level of function. PLAN: Continue with global strengthening and gait and transfer training for progression toward baseline level of function. TREATMENT CODE/TIME: 20 minutes; 11620
--- NOTE | 2020-08-03 09:58 | PDOC.CMPRO ---
- If Service Date Differs Date of service: 08/03/20 Time of Service: 09:58 Care Management Progress Note S/O: Khoi was sitting up in bed when CM met with him. He stated that he is not doing very well today but was very vague about any specific issues or concerns. Khoi stated that he is not sure that he wants to have a colonoscopy tomorrow. He feels he is tired and would like to work with PT for a few days first. CM explained that if he was not agreeable to the procedure at this time, that it could be done as an outpatient. CM also discussed the possibility of going to a SNF for short term rehab but Khoi was not sure he found that a good option either. He did agree to have CM send a referral but would not commit to accepting a bed if offered. The one request that Khoi had was that CM assist with getting his apartment cleaned. As Khoi does not have CFC, it is unlikely that there are any community resources to support his request. A: 75 year old male admitted to [facility] 07/30/20 for GI bleed, dehydration, COPD exacerbation. P: Anticipate Khoi will transfer to a SNF once ready per MD, as recommended by PT. Khoi is verbalizing that he would like to return home when able. Referral faxed to [facility] for review, undetermined if Khoi will be agreeable to SNF transfer when medically ready. CM to discuss re-connection to [facility] services prior to discharge, and fax DC summary to [facility] Ch[facility] at the [facility] when available. CM continues to follow.
[2020-08-03] MEDS: cefTRIAXone 1 GM/50 ML BAG IVPB (10:20)
[2020-08-03] MEDS: Magnesium Oxide 400 MG TAB PO ×2 (10:21→21:27)
[2020-08-03] MEDS: Finasteride 5 MG TAB PO (10:21)
[2020-08-03 11:11] VITALS: BP 145/82; PULSE 85; RESP 18; TEMP 36.7; O2SAT 97
--- NOTE | 2020-08-03 14:05 | W.PM.PROGNOT ---
Date of Service Date of service: 08/03/20 Time of Service: 14:05 Assessment and Plan Assessment and plan (1) Urinary retention: Status: Acute Assessment and plan: bladder scan with cath for residual greater than 300 cc. continue tamsulosin 0.8 mg daily (increased from home dose of 0.4 mg) add finasteride, consult urologys ceftriaxone while awaiting culture report (2) GI bleed: Status: Chronic Assessment and plan: received 2 unit PRBC with stable H&H continue pantoprazole BID, continue carafate upper endoscopy shows 2 ulcers, no active bleeding recommendations for colonoscopy which patient declines at this time (3) SAUL (acute kidney injury): Status: Acute Assessment and plan: improved to baseline follow kidney funtion, avoid nephrotoxic drugs. renal dosing as needed. (4) COPD (chronic obstructive pulmonary disease): Status: Acute Assessment and plan: stable, resume home meds and continue to assess. no IV steroids for now (5) Alcohol use disorder: Status: Acute Assessment and plan: ciwa protocol, no withdrawal. watch liver function has had no history of DT or withdrawal in the past continue thiamine (6) Hypomagnesemia: Status: Acute Assessment and plan: replete and follow (7) Failure to thrive: Status: Acute Assessment and plan: case management referral (8) Tobacco abuse disorder: Status: Acute Assessment and plan: nicotrol inhaler as needed while hospitalized (9) DVT prophylaxis: Status: Acute Assessment and plan: no pharmacological in setting of GI bleed teds scds (10) Discharge planning issues: Status: Acute Assessment and plan: case management following. SNF referrals placed covid 19 reordered per discharge policy to [facility] level facility discussed with DR Arnold who is in agreement Subjective Subjective Patient reports: no new complaints Interval history since last seen: still requiring straight cath for urinary retention, states he feels lousy but no specific c/o. hemodynamically stable. Exam Const General: no acute distress, disheveled, frail appearing and ill appearing chronically Nutritional Appearance: average body habitus Orientation: alert, awake and oriented x3 HENMT Head: normal to inspection, normocephalic and atraumatic Mouth: moist mucous membranes abnormal (dry with exudate) Resp Effort & Inspection: normal respiratory effort, no audible wheezes and no respiratory distress Auscultation: diminished lung sounds and wheezes Cardio Rate: regular rate Rhythm: abnormal rhythm GI Inspection: normal to inspection Palpation: soft Auscultation: normal bowel sounds Skin General skin exam: other (filthy, nails long with dirt. scattered small scabs on lower extremities) Neuro General: patient alert, patient awake, patient oriented x3 and moves all extremities Extrem General: normal to inspection Objective Last Vital Signs Temp 36.7 C 08/03/20 11:11 Pulse 85 08/03/20 11:11 Resp 18 08/03/20 11:11 BP 145/82 H 08/03/20 11:11 Pulse Ox 97 08/03/20 11:11 Laboratory Results - last 24 hr 08/03/20 08/03/20 06:44 06:44 WBC 4.35 L RBC 3.25 L Hgb 8.7 L Hct 27.6 L MCV 84.9 MCH 26.8 L MCHC 31.5 L RDW 21.1 H Plt Count 170 MPV 9.9 Immature Gran % 1.4 Neutrophils % 73.8 Lymphocytes % 10.3 Monocytes % 12.9 Eosinophils % 1.4 Basophils % 0.2 Nucleated RBC % 0 Absolute Neutrophils 3.21 Absolute Lymphocytes 0.45 L Absolute Monocytes 0.56 Absolute Eosinophils 0.06 Absolute Basophils 0.01 Sodium 136 Potassium 3.8 Chloride 103 Carbon Dioxide 23.2 Anion Gap 9.8 BUN 23 H Creatinine 1.50 H Estimated GFR/1.73 m2 45.75 Glucose 140 H Calcium 7.5 L
[2020-08-03] MEDS: Acetaminophen 500 MG TAB 1000 MG PO ×2 (14:30→21:28)
--- NOTE | 2020-08-03 15:35 | PT.INNT ---
Date of service: 08/03/20 Time of Service: 13:00 PT Notes Visit Reasons: GI BLEED, DYDRATION, COPD EXAC 08/03/2020 Patient refused afternoon PT session, stating it's the end of the day and I'm tired, I just really need to get some rest. Can you please just come back tomorrow morning. Will attempt to resume PT services tomorrow morning.
[2020-08-03 16:15] VITALS: BP 159/78; PULSE 85; RESP 17; TEMP 36.5; O2SAT 96
[2020-08-03] MEDS: Ampicillin 500 MG CAP PO ×2 (18:13→21:27)
[2020-08-03 19:47] VITALS: BP 144/82; PULSE 83; RESP 16; TEMP 36.6; O2SAT 97
[2020-08-03] MEDS: Melatonin 3 MG TAB 9 MG PO (21:28)
[2020-08-03 23:40] VITALS: BP 129/55; PULSE 60; RESP 17; TEMP 36.3; O2SAT 95
[2020-08-04 04:00] VITALS: BP 160/90; PULSE 96; RESP 18; TEMP 37; O2SAT 98
[2020-08-04] MEDS: Acetaminophen 500 MG TAB 1000 MG PO ×3 (05:25→22:08)
[2020-08-04 06:46] LABS: Abs Immature Grans 0.05 10^3/uL (0.0-0.06); Absolute Basophil Count 0.01 10^3/uL (0.0-0.2); Absolute Eosinophil Count 0.06 10^3/uL (0.0-0.7); Absolute Lymphocyte Count 0.52 10^3/uL (1.2-3.4); Absolute Monocyte Count 0.75 10^3/uL (0.1-0.8); Absolute Neutrophil Count 3.42 10^3/uL (1.2-6.7); Basophils % 0.2; Eosinophils % 1.2; HCT 28.3 % (40.0-50.0); HGB 8.8 g/dL (13.5-17.5); Lymphocytes % 10.8; MCH 26.4 pg (27.0-33.0); MCHC 31.1 % (32.0-36.0); MPV 9.7 fL (8.0-11.0); Monocytes % 15.6; Neutrophils % 71.2; Nucleated RBC 0 %; Platelet Count 207 10^3/uL (130-400); RBC 3.33 10^6/uL (4.36-5.78); RDW 21.6 % (11.8-14.1); RDW-SD 66.8 fL; WBC 4.81 10^3/uL (4.4-10.8)
[2020-08-04 07:10] LABS: Anion Gap 8.9 mmol/L (3-11); BUN 16 mg/dL (7-18); CO2 24.1 mmol/L (21.0-32.0); CREATININE 1.09 mg/dL (0.70-1.30); Calcium 7.5 mg/dL (8.5-10.1); Chloride 104 mmol/L (98-107); Glucose 105 mg/dL (74-106); Sodium 137 mmol/L (136-145)
[2020-08-04 07:30] VITALS: BP 173/80; PULSE 75; RESP 17; TEMP 36.6; O2SAT 98
[2020-08-04] MEDS: Ipratropium/Albuterol 4 GM 120 PUFF INH IH ×4 (08:24→20:21)
[2020-08-04] MEDS: Budesonide/Formoterol 160/4.5 6 GM 60 PUFF INH IH ×2 (08:24→20:22)
[2020-08-04] MEDS: Finasteride 5 MG TAB PO (09:11)
[2020-08-04] MEDS: Gabapentin 100 MG CAP 200 MG PO ×3 (09:12→20:20)
[2020-08-04] MEDS: DULoxetine 30 MG CAP PO (09:12)
[2020-08-04] MEDS: Thiamine 100 MG TAB PO (09:12)
[2020-08-04] MEDS: Tamsulosin 0.4 MG CAPCR 0.8 MG PO (09:12)
[2020-08-04] MEDS: dilTIAZem 30 MG TAB PO ×3 (09:12→20:20)
[2020-08-04] MEDS: Sucralfate 1 GM TAB PO ×4 (09:12→22:08)
[2020-08-04] MEDS: Multivitamin TAB 1 TAB PO (09:13)
[2020-08-04] MEDS: Ascorbic Acid 500 MG TAB PO ×2 (09:13→20:21)
[2020-08-04] MEDS: Ampicillin 500 MG CAP PO ×4 (09:13→20:20)
[2020-08-04] MEDS: Docusate Sodium 100 MG CAP PO ×2 (09:13→20:21)
[2020-08-04] MEDS: Ferrous Sulfate 325 MG TAB PO ×2 (09:13→20:21)
[2020-08-04] MEDS: Normal Saline Flush 10 ML SYR IVP ×2 (09:14→20:21)
[2020-08-04] MEDS: Pantoprazole 40 MG VIAL IVP ×2 (09:14→20:20)
--- NOTE | 2020-08-04 09:26 | PT.INTREAT ---
Date of service: 08/04/20 Time of Service: 08:35 PT Notes Visit Reasons: GI BLEED, DYDRATION, COPD EXAC Inpatient Physical Therapy Treatment Note [facility] Date: 08/04/2020 PRECAUTIONS: Fall SUBJECTIVE: Rufino is agreeable to participating in PT. He reports that he is feeling a little better, that he is eating and moving better. He reports that he has not been sleeping well, and is still very fatigued. OBJECTIVE: PAIN: Patient c/o back pain with gait training BED MOBILITY/TRANSFERS Supine-sit: S with HOB at 20 degrees Sit-stand: SBA Stand-sit: SBA Bed-Chair: SBA Chair-bed: SBA GAIT Assistive Device: FWW Weight bearing: Full Assist: SBA Distance: 70' Deviation: Increased SOB, increased fatigue. THEREX: Patient was instructed in several LE strengthening exercises, in a seated position, as per flow sheet. Patient was instructed to perform exercises to fatigue, reps are noted on flow sheet. ASSESSMENT: Patient tolerated session with complaint of increased fatigue and SOB with activity. He also c/o back pain with gait training. He is demonstrating good progress with transfers and gait distance with FWW support, as well as improved activity tolerance. PLAN: Continue with global strengthening as well as gait and transfer training for continued progression toward baseline level of function. TREATMENT CODE/TIME: 35 minutes; 72360, 32229
--- NOTE | 2020-08-04 10:56 | W.NUTRFU ---
Date of service: 08/04/20 Time of Service: 10:56 Nutritional Follow up NOTE: Khoi has been advanced to low sodium diet with intake > 50% of meals. Will continue to provide support for optimal intake and weight maintenance. Time Spent in Nutritional Counseling and Treatment: 0
[2020-08-04] MEDS: Magnesium Oxide 400 MG TAB PO ×2 (10:58→22:08)
[2020-08-04] MEDS: Normal Saline 1,000 ML 80 ML IV ×2 (10:58→20:20)
[2020-08-04 11:36] VITALS: BP 139/87; PULSE 84; RESP 19; TEMP 36.8; O2SAT 93
--- NOTE | 2020-08-04 13:38 | NUR.NOTE ---
Nursing Note: Note from 08/03, I have reviewed the charting of Blanca Enrique RN and find it complete and accurate
--- NOTE | 2020-08-04 13:44 | W.PM.PROGNOT ---
Date of Service Date of service: 08/04/20 Time of Service: 13:44 Assessment and Plan Assessment and plan (1) UTI (urinary tract infection): Status: Acute Assessment and plan: urine growing Enterococcus faecalis sensitive to ampicillin which he was down-stepped to last night. (2) Urinary retention: Status: Acute Assessment and plan: bladder scan with cath for residual greater than 300 cc. continue tamsulosin 0.8 mg daily (increased from home dose of 0.4 mg) add finasteride, consult urology treat UTI (3) GI bleed: Status: Chronic Assessment and plan: received 2 unit PRBC with stable H&H continue pantoprazole BID, continue carafate upper endoscopy shows 2 ulcers, no active bleeding recommendations for colonoscopy which patient declines at this time (4) SAUL (acute kidney injury): Status: Resolved Assessment and plan: improved to baseline follow kidney function, avoid nephrotoxic drugs. renal dosing as needed. (5) COPD (chronic obstructive pulmonary disease): Status: Chronic Assessment and plan: stable, resume home meds and continue to assess. no IV steroids for now (6) Alcohol use disorder: Status: Chronic Assessment and plan: ciwa protocol, no withdrawal. watch liver function has had no history of DT or withdrawal in the past continue thiamine. has no desire to stop drinking and states he will resume at discharge. (7) Hypomagnesemia: Status: Resolved Assessment and plan: replete and follow (8) Failure to thrive: Status: Acute Assessment and plan: case management referral (9) Tobacco abuse disorder: Status: Chronic Assessment and plan: nicotrol inhaler as needed while hospitalized smoking cessation discussed, patient has no desire to stop and states he will continue on discharge (10) DVT prophylaxis: Status: Acute Assessment and plan: no pharmacological in setting of GI bleed teds scds (11) Discharge planning issues: Status: Acute Assessment and plan: case management following. SNF referrals placed covid 19 reordered per [facility] policy [facility] discussed with DR Arnold who is in agreement Subjective Subjective Patient reports: no new complaints and afebrile Interval history since last seen: patient unmotivated, feeling weak and deconditioned, states he doesn't want to be discharge home because he feels too weak but yesterday refusing discharge to [facility], today states he is interested. Exam Const General: no acute distress, disheveled, frail appearing and ill appearing chronically Nutritional Appearance: average body habitus Orientation: alert, awake and oriented x3 HENMT Head: normal to inspection, normocephalic and atraumatic Mouth: moist mucous membranes abnormal (dry with exudate) Resp Effort & Inspection: normal respiratory effort, no audible wheezes and no respiratory distress Auscultation: diminished lung sounds and wheezes Cardio Rate: regular rate Rhythm: abnormal rhythm GI Inspection: normal to inspection Palpation: soft Auscultation: normal bowel sounds Skin General skin exam: other (filthy, nails long with dirt. scattered small scabs on lower extremities) Neuro General: patient alert, patient awake, patient oriented x3 and moves all extremities Extrem General: normal to inspection Objective Last Vital Signs Temp 36.8 C 08/04/20 11:36 Pulse 84 08/04/20 11:36 Resp 19 08/04/20 11:36 BP 139/87 08/04/20 11:36 Pulse Ox 93 08/04/20 11:36 Laboratory Results - last 24 hr 08/04/20 08/04/20 06:15 06:15 WBC 4.81 RBC 3.33 L Hgb 8.8 L Hct 28.3 L MCV 85.0 MCH 26.4 L MCHC 31.1 L RDW 21.6 H Plt Count 207 MPV 9.7 Immature Gran % 1.0 Neutrophils % 71.2 Lymphocytes % 10.8 Monocytes % 15.6 Eosinophils % 1.2 Basophils % 0.2 Nucleated RBC % 0 Absolute Neutrophils 3.42 Absolute Lymphocytes 0.52 L Absolute Monocytes 0.75 Absolute Eosinophils 0.06 Absolute Basophils 0.01 Sodium 137 Potassium 4.0 Chloride 104 Carbon Dioxide 24.1 Anion Gap 8.9 BUN 16 D Creatinine 1.09 Estimated GFR/1.73 m2 >= 60.00 Glucose 105 Calcium 7.5 L
--- NOTE | 2020-08-04 15:03 | NUR.NOTE ---
Nursing Note: I have reviewed the charting of Blanca Enrique RN and find it accurate and complete
[2020-08-04 16:22] VITALS: BP 156/76; PULSE 84; RESP 18; TEMP 36.9; O2SAT 97
--- NOTE | 2020-08-04 17:35 | CMPROGNOTE_ITS ---
- If Service Date Differs Date of service: 08/04/20 Time of Service: 17:35 Care Management Progress Note S/O: Khoi was sitting up in bed when CM met with him. He continues to share that he is not feeling well and that he does not feel he can take care of himself anymore. When his provider met with him, he agreed to go to a SNF for rehab prior to returning home. CM determined that he has a bed offer at [facility] and if his repeat Covid test is negative, he will be able to transfer tomorrow. Zack verbalized agreement with that plan. A: 75 year old male admitted to [facility] 07/30/20 for GI bleed, dehydration, COPD exacerbation. P: Anticipate Khoi will transfer to [facility] as soon as his repeat Covid test results come back negative. He will transport via facility wheelchair van and follow up with the facility providers. CM will continue to support patient and discharge needs.CM to discuss re-connection to [facility] services prior to discharge, and fax DC summary to [facility] at the [facility] when available. CM continues to follow.
[2020-08-04 18:55] VITALS: BP 123/71; PULSE 89; RESP 18; TEMP 36.8; O2SAT 97
[2020-08-04] MEDS: Melatonin 3 MG TAB 9 MG PO (22:08)
[2020-08-04 23:44] VITALS: BP 140/62; PULSE 88; RESP 20; TEMP 37; O2SAT 97
[2020-08-05] MEDS: Sucralfate 1 GM TAB PO ×4 (06:39→21:34)
[2020-08-05] MEDS: Acetaminophen 500 MG TAB 1000 MG PO ×3 (06:39→21:34)
--- NOTE | 2020-08-05 07:32 | W.UROLOGYCON ---
Date of service: 08/05/20 Time of Service: 06:49 Assessment and Plan Assessment and plan (1) Urinary retention: Status: Acute Assessment and plan: In a review his old inpatient records here at [facility], this appears to be a fairly chronic issue for him. He has required intermittent catheterization during his hospitalizations dating back to 2018. I do not think that we should expect that he will ever be able to empty his bladder completely. The patient does admit that when he runs out of tamsulosin, his voiding symptoms are a bit worse. It seems reasonable to me to increase his dose of Flomax to 0.8 mg daily as has already been done by the hospitalist team. We tend to see improvement in voiding symptoms after 3 to 5 days, so I think removing his catheter early next week is also reasonable. I do not imagine that this patient could be expected to perform intermittent catheterization once he is discharged (even though this might be his recommended treatment). I do not see many outpatient clinic visits in this gentleman's chart, so I certainly would not plan on discharging him back into the community with an indwelling catheter. History of Present Illness History of Present Illness Chief Complaint: Urinary retention Narrative: This is a 75-year-old gentleman who has a history of alcohol abuse, COPD, atrial fibrillation and GI bleed. He has had multiple hospitalizations here at [facility]. He is currently hospitalized with a GI bleed. At the time of admission, his renal function was compromised. He was found to not empty his bladder completely, so intermittent catheterization was begun. Ultimately, a Cornejo catheter was placed. The patient tells me that frequent urination has been a problem for him chronically. He tells me he does not need to get up at night to void, however. He has been on tamsulosin 0.4 mg daily for at least a year now. He tells me he was started on the medication by the providers at the [place] [facility]. I do not have access to those records. I do have access to his previous hospitalizations here at [facility]. Dating back to 2018, he was not emptying his bladder and required intermittent catheterization with each admission for PVRs up to 500 cc. Based on the records found under the flowsheet section of his chart, it looks like he has not been very compliant (or happy) with the intermittent catheterization schedule in the hospital. He is not aware of any prior urinary tract infections. He denies any blood in his urine. He does not recall any type of urologic surgery. Review of Systems Narrative: No fevers or chills. c/o weakness and tells me he does not want to be discharged but wants to rehab here in the hospital No vision change or dysphasia No diabetes or thyroid Chronic SOB No chest pain No seizures, strokes No bleeding disorders No gout PFSH Medical History Alcohol use disorder Atrial fibrillation Cooper's esophagus COPD (chronic obstructive pulmonary disease) Depression Failure to thrive Hematemesis Insomnia Radicular pain of right lower extremity Renal insufficiency Right knee pain Smoking hx UTI (urinary tract infection) Surgical History H/O esophagogastroduodenoscopy (~04/2019) Social History Smoking/Tobacco Use Status: Current every day Tobacco Type: cigarettes Years smoked: 50 Smoking risk assessment performed?: Yes Alcohol Intake: current Alcohol Intake frequency: 3 or more drinks per day Drug use: Never Substance use type: does not use Do you feel safe at home: Yes Do you feel safe in your relationship?: Yes Additional Social history: Lives alone in apartment in [facility] for past ~6 years, closest family brother Owen in [place], [place] 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 He does not appear septic or toxic His vital signs are documented elsewhere His abdomen is soft with no mass Cornejo catheter is in place and is draining clear urine He is awake and alert His serum creatinine is down to 1.09 (from 2.06 on admission I reviewed his renal ultrasound on the PACS system. Even though his bladder does not empty well, there is no sign of hydronephrosis. Results Last Vital Signs Temp 37 C 08/04/20 23:44 Pulse 88 08/04/20 23:44 Resp 20 08/04/20 23:44 BP 140/62 08/04/20 23:44 Pulse Ox 97 08/04/20 23:44 Labs Result diagrams: 08/04/20 06:15 08/04/20 06:15
[2020-08-05 07:33] VITALS: BP 160/85; PULSE 55; RESP 17; TEMP 36.3; O2SAT 97
[2020-08-05] MEDS: Ipratropium/Albuterol 4 GM 120 PUFF INH IH ×4 (07:36→22:25)
[2020-08-05] MEDS: Budesonide/Formoterol 160/4.5 6 GM 60 PUFF INH IH ×2 (07:36→22:28)
--- NOTE | 2020-08-05 08:40 | OT.INTREAT ---
Date of service: 08/05/20 Time of Service: 07:35 Occupational Therapy Notes Occupational Therapy Inpatient Treatment Note Date: 08/05/20 PRECAUTIONS: Fall, standard, Full SUBJECTIVE: Pt was lying in bed when OT arrived. He was agreeable to OT session and states that he felt a little better after performing his ADLs this morning. OBJECTIVE: PAIN:no c/o pain FUNCTIONAL MOBILITY Rolling L/R: (I) Supine-sit: (I) Sit-supine: (I) BATHING: sitting on side of the bed with max (A) set up/clean up Upper Body: (I) with vc throughout, (I) hair Lower Body: (I) (B) LE with vc for hand placement for stability pt was able to tolerate this well. DRESSING: Upper Extremity: Min (A) [facility] gown with min vc Lower Extremity: NT ASSESSMENT/PLAN: Pt was agreeable to perform sitting ADLs although required encouragement during ADLs for performance. He has ideal ROM, decreased sitting tolerance and improvements in his functional activity tolerance however he states that he does not want to do too much. TREATMENT CODES/TIME: 01302, 10 minutes (07:35) Viji Brown OTR/[facility]
[2020-08-05] MEDS: Tamsulosin 0.4 MG CAPCR 0.8 MG PO (08:48)
[2020-08-05] MEDS: Pantoprazole 40 MG VIAL IVP ×2 (08:48→21:36)
[2020-08-05] MEDS: Normal Saline Flush 10 ML SYR IVP ×2 (08:48→21:35)
[2020-08-05] MEDS: DULoxetine 30 MG CAP PO (08:48)
[2020-08-05] MEDS: Multivitamin TAB 1 TAB PO (08:49)
[2020-08-05] MEDS: Docusate Sodium 100 MG CAP PO ×2 (08:49→21:35)
[2020-08-05] MEDS: Ampicillin 500 MG CAP PO ×4 (08:49→22:24)
[2020-08-05] MEDS: dilTIAZem 30 MG TAB PO ×3 (08:49→21:33)
[2020-08-05] MEDS: Ascorbic Acid 500 MG TAB PO ×2 (08:49→21:34)
[2020-08-05 08:50] VITALS: O2SAT 97
[2020-08-05] MEDS: Thiamine 100 MG TAB PO (08:50)
[2020-08-05] MEDS: Gabapentin 100 MG CAP 200 MG PO ×3 (08:50→21:33)
[2020-08-05] MEDS: Normal Saline 1,000 ML 80 ML IV (08:50)
[2020-08-05] MEDS: Ferrous Sulfate 325 MG TAB PO ×2 (08:50→21:35)
[2020-08-05] MEDS: Finasteride 5 MG TAB PO (08:50)
[2020-08-05 11:46] VITALS: BP 158/84; PULSE 75; RESP 16; TEMP 36.6; O2SAT 95
[2020-08-05] MEDS: Magnesium Oxide 400 MG TAB PO ×2 (12:05→21:34)
--- NOTE | 2020-08-05 13:00 | PT.INTREAT ---
Date of service: 08/05/20 Time of Service: 09:30 PT Notes Visit Reasons: GI BLEED, DYDRATION, COPD EXAC Inpatient Physical Therapy Treatment Note [facility] Date: 08/05/2020 PRECAUTIONS: Fall SUBJECTIVE: Rufino is agreeable to participating in PT. He reports that he really doesn't want to go to rehab, that he'd rather stay at the hospital until he is ready to return to home. OBJECTIVE: PAIN: No c/o pain BED MOBILITY/TRANSFERS Supine-sit: I with HOB at 10 degrees Sit-stand: S Stand-sit: S Bed-Chair: SBA Chair-bed: SBA GAIT Assistive Device: FWW Weight bearing: Full Assist: SBA Distance: 80' x2 STAIRS: Up/down 6x4 and 4x6 using B rails and a step-to/step-over pattern with supervision. ASSESSMENT: Patient tolerated session with minimal complaint of increased fatigue with activity. He tolerated the addition of stair training/negotiation, well. He is demonstrating good progress with transfers and gait distance with FWW support, as well as improved activity tolerance. PLAN: Continue with global strengthening as well as gait and transfer training for continued progression toward baseline level of function. TREATMENT CODE/TIME: 25 minutes; [id number] x2
--- NOTE | 2020-08-05 13:21 | CMPROGNOTE_ITS ---
Care Management Progress Note S/O: Khoi was sitting up in his chair, eating lunch when CM met with him. He remains agreeable to SNF though reports he would prefer to remain at the hospital. CM reviewed eligibility for SWB1 as well as current bed shortage; Khoi acknowledged barriers to swing bed. Awaiting CV-19 results, CM continues to follow. A: 75 year old male admitted to [facility] 07/30/20 for GI bleed, dehydration, COPD exacerbation. P: Anticipate Khoi will transfer to [facility] as soon as his repeat Covid test results come back negative. He will transport via [facility]; coordinated by this assembly instructions writer. CM will continue to support patient and discharge needs. CM to discuss re-connection to [place] services prior to discharge, and fax DC summary to [facility] Chavis at the [place] when available. CM continues to follow.
--- NOTE | 2020-08-05 13:21 | PDOC.CMPRO ---
Care Management Progress Note S/O: Khoi was sitting up in his chair, eating lunch when CM met with him. He remains agreeable to SNF though reports he would prefer to remain at the hospital. CM reviewed eligibility for SWB1 as well as current bed shortage; Khoi acknowledged barriers to swing bed. Awaiting CV-19 results, CM continues to follow. A: 75 year old male admitted to [facility] 07/30/20 for GI bleed, dehydration, COPD exacerbation. P: Anticipate Khoi will transfer to [facility] as soon as his repeat Covid test results come back negative. He will transport via [facility]; coordinated by this credit underwriter. CM will continue to support patient and discharge needs. CM to discuss re-connection to [place] services prior to discharge, and fax DC summary to [facility] at the [place] when available. CM continues to follow.
--- NOTE | 2020-08-05 13:33 | W.PM.PROGNOT ---
Date of Service Date of service: 08/05/20 Time of Service: 13:33 Assessment and Plan Assessment and plan (1) UTI (urinary tract infection): Start date: 08/05/20 Start time: 13:36 Status: Acute Assessment and plan: urine growing Enterococcus faecalis sensitive to ampicillin which he was down-stepped to last night. Tolerating No fevers Seen by Dr. Ramos, will keep murry in place for 3 days then try voiding. Can be followed up as an outpatient (2) Urinary retention: Start date: 08/05/20 Start time: 13:37 Status: Acute Assessment and plan: Catheter in place seen by Dr. Ramos who will follow up as an outpatient (3) GI bleed: Start date: 08/05/20 Start time: 13:38 Status: Chronic Assessment and plan: received 2 unit PRBC with stable H&H continue pantoprazole BID, continue carafate upper endoscopy shows 2 ulcers, no active bleeding recommendations for colonoscopy which patient declines at this time Qualifiers: GI bleed type/associated pathology: gastritis Gastritis type: alcoholic Qualified Code(s): K29.21 - Alcoholic gastritis with bleeding (4) SAUL (acute kidney injury): Start date: 08/05/20 Start time: 13:38 Status: Resolved Assessment and plan: improved to baseline follow kidney function, avoid nephrotoxic drugs. renal dosing as needed. (5) COPD (chronic obstructive pulmonary disease): Start date: 08/05/20 Start time: 13:39 Status: Chronic Assessment and plan: stable, resume home meds and continue to assess. no IV steroids for now Qualifiers: COPD type: unspecified COPD Qualified Code(s): J44.9 - Chronic obstructive pulmonary disease, unspecified (6) Alcohol use disorder: Start date: 08/05/20 Start time: 13:40 Status: Chronic Assessment and plan: ciwa protocol, no withdrawal. watch liver function has had no history of DT or withdrawal in the past continue thiamine. has no desire to stop drinking and states he will resume at discharge. (7) Hypomagnesemia: Start date: 08/05/20 Start time: 13:40 Status: Resolved Assessment and plan: replete and follow (8) Failure to thrive: Start date: 08/05/20 Start time: 13:40 Status: Acute Assessment and plan: case management referral Referral to H/R Qualifiers: Failure to thrive age range: in adult Qualified Code(s): R62.7 - Adult failure to thrive (9) Tobacco abuse disorder: Start date: 08/05/20 Start time: 13:40 Status: Chronic Assessment and plan: nicotrol inhaler as needed while hospitalized smoking cessation discussed, patient has no desire to stop and states he will continue on discharge (10) DVT prophylaxis: Start date: 08/05/20 Start time: 13:40 Status: Acute Assessment and plan: no pharmacological in setting of GI bleed teds scds (11) Discharge planning issues: Start date: 08/05/20 Start time: 13:40 Status: Acute Assessment and plan: case management following. covid 19 reordered per discharge policy to [facility] facility discussed with DR Arnold who is in agreement Subjective Subjective Patient reports: no new complaints Interval history since last seen: Patient is sitting up in chair. Awaiting negative COVID for discharge to H/R. He denies CP, SOB, N/V/D Exam Const General: no acute distress, disheveled, frail appearing and ill appearing chronically Nutritional Appearance: average body habitus Orientation: alert, awake and oriented x3 HENMT Head: normal to inspection, normocephalic and atraumatic Mouth: moist mucous membranes abnormal (dry with exudate) Resp Effort & Inspection: normal respiratory effort, no audible wheezes and no respiratory distress Auscultation: diminished lung sounds and wheezes Cardio Rate: regular rate Rhythm: abnormal rhythm GI Inspection: normal to inspection Palpation: soft Auscultation: normal bowel sounds Skin General skin exam: other (filthy, nails long with dirt. scattered small scabs on lower extremities) Neuro General: patient alert, patient awake, patient oriented x3 and moves all extremities Extrem General: normal to inspection Objective Last Vital Signs Temp 36.6 C 08/05/20 11:46 Pulse 75 08/05/20 11:46 Resp 16 08/05/20 11:46 BP 158/84 H 08/05/20 11:46 Pulse Ox 95 08/05/20 11:46
--- NOTE | 2020-08-05 14:17 | CHAPLAIN ---
Khoi was sitting up in bed when I visited. He said he's not feeling well, but wasn't specific. He also said that he is not in touch with an family or friends. He thanked me for stopping in but did not seem to want further conversation.
[2020-08-05 16:09] VITALS: BP 172/93; PULSE 79; RESP 18; TEMP 36.5; O2SAT 96
[2020-08-05 19:45] VITALS: BP 150/70; PULSE 78; RESP 18; TEMP 36.7; O2SAT 96
[2020-08-05] MEDS: Melatonin 3 MG TAB 9 MG PO (21:33)
[2020-08-06 00:18] VITALS: BP 178/87; PULSE 89; RESP 18; TEMP 37.2; O2SAT 96
[2020-08-06 03:45] VITALS: BP 135/81; PULSE 81; RESP 17; TEMP 36.5; O2SAT 96
[2020-08-06] MEDS: Acetaminophen 500 MG TAB 1000 MG PO (06:29)
[2020-08-06] MEDS: Budesonide/Formoterol 160/4.5 6 GM 60 PUFF INH IH (08:21)
[2020-08-06] MEDS: Ipratropium/Albuterol 4 GM 120 PUFF INH IH (08:39)
[2020-08-06] MEDS: DULoxetine 30 MG CAP PO (09:12)
[2020-08-06] MEDS: Sucralfate 1 GM TAB PO ×2 (09:13→12:30)
[2020-08-06] MEDS: Docusate Sodium 100 MG CAP PO (09:13)
[2020-08-06] MEDS: Tamsulosin 0.4 MG CAPCR 0.8 MG PO (09:13)
[2020-08-06] MEDS: Ascorbic Acid 500 MG TAB PO (09:13)
[2020-08-06] MEDS: Gabapentin 100 MG CAP 200 MG PO (09:13)
[2020-08-06] MEDS: dilTIAZem 30 MG TAB PO (09:13)
[2020-08-06] MEDS: Thiamine 100 MG TAB PO (09:14)
[2020-08-06] MEDS: Ampicillin 500 MG CAP PO ×2 (09:14→12:30)
[2020-08-06] MEDS: Multivitamin TAB 1 TAB PO (09:14)
[2020-08-06] MEDS: Finasteride 5 MG TAB PO (09:14)
[2020-08-06] MEDS: Ferrous Sulfate 325 MG TAB PO (09:14)
[2020-08-06] MEDS: Magnesium Oxide 400 MG TAB PO (09:14)
[2020-08-06 09:20] VITALS: O2SAT 96
[2020-08-06] MEDS: Pantoprazole 40 MG TABCR PO (09:50)
--- NOTE | 2020-08-06 10:33 | W.PM.DS.N ---
Date of service: 08/06/20 Time of Service: 10:34 DS: Diagnosis Discharge Diagnosis (1) UTI (urinary tract infection): Start date: 08/06/20 Start time: 10:34 Status: Resolved Asessment and Plan: Urine growing Enter faecalis sensitive to ampicillin he was transitioned to PO, tolerating, no fevers. Seen by Dr. Ramos, will keep murry in place and do a voiding trial on Saturday. Will be followed as an outpatient. Follow up with Dr. Ramos in 2 weeks (2) Urinary retention: Start date: 08/06/20 Start time: 10:35 Status: Chronic Asessment and Plan: as above (3) GI bleed: Start date: 08/06/20 Start time: 10:36 Status: Chronic Asessment and Plan: Received 2 units PRBC, H/H stable continue PPI BID, continue carafate Upper endoscopy revealed 2 ulcers no active bleeding recommended colonoscopy patient declined at this time. can be done as outpatient when ready (4) SAUL (acute kidney injury): Start date: 08/06/20 Start time: 10:37 Status: Resolved Asessment and Plan: improved to baseline renal function (5) COPD (chronic obstructive pulmonary disease): Start date: 08/06/20 Start time: 10:37 Status: Chronic Asessment and Plan: Not exacerbated at this time. (6) Alcohol use disorder: Start date: 08/06/20 Start time: 10:40 Status: Chronic Asessment and Plan: No withdrawal while in the hospital no desire to stop drinking states he will resume at discharge continue thiamine (7) Hypomagnesemia: Start date: 08/06/20 Start time: 10:40 Status: Resolved Asessment and Plan: Repleted and monitored (8) Failure to thrive: Start date: 08/06/20 Start time: 10:40 Status: Acute Asessment and Plan: Due to chronic alcoholism Continue PT/OT Discharge to [facility] (9) Tobacco abuse disorder: Start date: 08/06/20 Start time: 10:41 Status: Chronic Asessment and Plan: no desire to quit, states he will continue on discharge above case discussed with Dr. Hayden who is in agreement. Discharge Plan Disposition Patient Disposition: [facility] (LEVEL 2) [facility] Condition: Improving Discharge Details Reason For Visit: GI BLEED, DYDRATION, COPD EXAC Admit Date/Time: 07/30/20 13:28 Admit Provider: Ca Arnold Attending Provider: Ca Arnold Primary Care Provider: Antonio Flood Hospital Course Hospital Course: 75 y.o male with PMH tobacco and ETOH use, afib, presented to [facility] with anxiety and SOB. Labs revealed anemia with normal WBC, elevated creatinine. He was given PPI and 1 unit PRBC. He did have positive stool guaiac and was admitted to [facility] for further management. Over course of hospitalization he received 2 units PRBC. He had upper endoscopy and was placed on PPI BID with Carafate. H/H stabilized. He was found to have urinary retention with UTI. Dr. Ramos consulted. Catheter placed, he recommends leaving catheter in place until Saturday then doing a voiding trial. He can be followed as an outpatient. He will finish course of ampicillin. He is being discharged to health and rehab. COVID negative. Home Meds and New Rx's Prescriptions: New ampicillin 500 mg Capsule 500 mg PO QID Qty: 8 RF: 0 tamsulosin 0.4 mg Capsule 0.8 mg PO DAILY Qty: 15 RF: 0 pantoprazole 40 mg Tablet,Delayed Release (Dr/Ec) 40 mg PO BID@729,1999 Qty: 20 RF: 0 finasteride 5 mg Tablet 5 mg PO DAILY Qty: 15 RF: 0 Continued ipratropium-albuterol 0.5 mg-3 mg(2.5 mg base)/3 mL Solution For Nebulization 3 ml UPD Q6H PRN PRN (Reason: shortness of breath or wheezing) Qty: 180 RF: 0 acetaminophen [Mapap Extra Strength] 500 mg Tablet 1,000 mg PO Q8H Qty: 90 RF: 0 ascorbic acid (vitamin C) [Vitamin C] 500 mg Tablet 500 mg PO BID Qty: 60 RF: 0 cyclobenzaprine 10 mg Tablet 10 mg PO TID Qty: 90 RF: 0 sucralfate 1 gram Tablet 1 g PO AC & HS Qty: 120 RF: 0 magnesium oxide 400 mg (241.3 mg magnesium) Tablet 400 mg PO BID@1000,2200 Qty: 60 RF: 0 ferrous sulfate 325 mg (65 mg iron) Tablet 325 mg PO BID Qty: 60 RF: 0 docusate sodium [Colace] 100 mg Capsule 100 mg PO BID Qty: 60 RF: 0 gabapentin 100 mg Capsule 200 mg PO TID Qty: 180 RF: 0 diltiazem HCl [Cardizem] 30 mg Tablet 30 mg PO TID Qty: 90 RF: 0 duloxetine [Cymbalta] 30 mg Capsule,Delayed Release(Dr/Ec) 30 mg PO DAILY Qty: 30 RF: 0 multivitamin [Multiple Vitamins] Tablet 1 tab PO DAILY Qty: 30 RF: 0 Nicotrol 10 mg Cartridge 30 cartridge inhalation DIRECTED PRNQty: 10 RF: 0 cyanocobalamin (vitamin B-12) [Vitamin B-12] 500 mcg Tablet 1,000 mcg PO DAILY Qty: 60 RF: 0 melatonin 3 mg Tablet Extended Release 3 - 6 mg PO HS PRN PRN (Reason: Insomnia) Qty: 60 RF: 0 budesonide-formoterol [Symbicort] 160-4.5 mcg/actuation Hfa Aerosol Inhaler 2 puff inhalation BID Qty: 10.2 RF: 0 thiamine mononitrate (vit B1) [Vitamin B-1 (mononitrate)] 100 mg Tablet 100 mg PO DAILY Qty: 30 RF: 0 Discontinued tamsulosin 0.4 mg Capsule 0.4 mg PO DAILY Qty: 30 RF: 0 pantoprazole 40 mg Tablet,Delayed Release (Dr/Ec) 40 mg PO BID@0730,1999 Qty: 60 RF: 0 Discharge Instructions Instructions: Gastrointestinal Bleeding (IP), Urinary Retention in Men (GEN), Abuse of Alcohol (DC), Anxiety (DC), Alcohol Dependence (DC) Additional Instructions: Discharge to health and rehab Follow up with PCP in 1-2 weeks D/c lovely on Saturday, voiding trial, follow up with Dr. Ramos in 1 week Continue to abstain from drinking and smoking Take protonix twice a day Activity:: Activity as Tolerated Equipment/Supplies:: No Equipment Needed Diet:: Low Sodium DS: Summary Status at Discharge Functional status at discharge: uses cane/walker Overall status at discharge: patient is back to baseline Mental Status: mental status grossly normal Speech and Movement: speech and movement normal Mood: congruent mood Affect: normal affect Exam Const General: no acute distress, disheveled, frail appearing and ill appearing chronically Nutritional Appearance: average body habitus Orientation: alert, awake and oriented x3 HENMT Head: normal to inspection, normocephalic and atraumatic Mouth: moist mucous membranes abnormal (dry with exudate) Resp Effort & Inspection: normal respiratory effort, no audible wheezes and no respiratory distress Auscultation: diminished lung sounds and wheezes Cardio Rate: regular rate Rhythm: abnormal rhythm GI Inspection: normal to inspection Palpation: soft Auscultation: normal bowel sounds Skin Other: nails cleaned, small scabs improving in appearance. Neuro General: patient alert, patient awake, patient oriented x3 and moves all extremities Extrem General: normal to inspection Psych Mental Status: mental status grossly normal Speech and Movement: speech and movement normal Mood: congruent mood Affect: normal affect DS: Data Vitals/I&O Vitals and I&O: Vital Signs Temperature 36.5 C 08/06/20 03:45 Temperature Source Skin 08/06/20 03:45 Pulse 81 08/06/20 03:45 Pulse Rhythm Regular 08/04/20 16:00 Pulse 85 07/30/20 14:31 Respiratory Rate 17 08/06/20 03:45 Respiratory Effort 08/06/20 00:18 Respiratory Depth Normal 08/06/20 00:18 Respiratory Pattern Normal 08/06/20 00:18 Blood Pressure 135/81 08/06/20 03:45 Blood Pressure Mean 73 07/30/20 14:30 Pulse Oximetry 96 08/06/20 03:45 Oxygen Delivery Method Room Air 08/06/20 03:45 Oxygen Flow Rate 0 08/06/20 03:45 Pain Level 0 08/06/20 03:45 Comment 08/05/20 16:09 Intake & Output 08/05/20 08/05/20 08/06/20 11:59 23:59 11:59 Intake Total 1660 / 2564.667 904.667 / 2564.667 Output Total 1200 / 1999 800 / 2000 1450 / 1450 Balance 460 / 564.667 104.667 / 564.667 -1450 / -1450 Weight 70 kg 71 kg Intake: IV 1000 / 1664.667 664.667 / 1664.667 Oral 660 / 900 240 / 900 Output: Urine 1200 / 1999 800 / 2000 1450 / 1450 Other: Urine Color Pale Yellow Yellow Yellow Straw Urine Appearance Clear Clear Clear Stool Size Moderate Moderate Stool Characteristics Soft Soft Brown Formed Black Brown Data Completed and Pending Completed studies during hospitalization [Text1]: Exam(s) a RAD:XR portable chest AP EXAM: XR PORTABLE CHEST AP CLINICAL HISTORY: COPD, shortness of breath TECHNIQUE: 2D digital imaging was performed. COMPARISON: CR XR CHEST 2V PA LATERAL from 08/12/2019 FINDINGS: MEDIASTINUM: Normal. HEART: Normal. PULMONARY VASCULATURE: Normal. LUNGS: Clear. PLEURAL SPACE: No pleural effusion or pneumothorax. BONE:Within normal limits for the patient's age. OTHER FINDINGS:Normal. IMPRESSION: No acute pulmonary findings. Exam(s) PROCEDURE INFORMATION: Exam: XR Chest, 1 View Exam date and time: 07/30/2020 11:09 AM Age: 75 years old Clinical indication: Other: Copd, SOB TECHNIQUE: Imaging protocol: XR of the chest Views: 1 view. COMPARISON: CR XR CHEST 2V PA LATERAL 08/12/2019 9:30 AM FINDINGS: Lungs: Lungs are hyperinflated with flattening of hemidiaphragms, unchanged. There is no focal consolidation or pleural effusion. Pleural space: Unremarkable. No pleural effusion. No pneumothorax. Heart/Mediastinum: Unremarkable. No cardiomegaly. Bones/joints: Unremarkable. IMPRESSION: No acute pulmonary process. Exam(s) a US:US renal EXAM: US RENAL CLINICAL HISTORY: renal failure. TECHNIQUE: Jeffery scale, color and spectral Doppler were used. COMPARISON: No exams were available for comparison FINDINGS: Renal size in cm: Right: 9.6. Left: 10.4. Echogenicity: Normal. Hydronephrosis: No. Cyst or mass: No. Nephrolithiasis: No. Other findings: None. Bladder:Normal. Debris is noted within the urinary bladder. Ureteral jets: Right: Visualized and unremarkable. Left: Visualized and unremarkable. Prevoid vol:484 cc Postvoid vol:445 cc Prostate: 15.4 cc Renal color flow: Symmetric and within normal limits. IMPRESSION: Debris noted within the urinary bladder. Infection or hemorrhage cannot be excluded. Please correlate clinically. [facility] Medical History Alcohol use disorder Atrial fibrillation Cooper's esophagus COPD (chronic obstructive pulmonary disease) Depression Failure to thrive Hematemesis Insomnia Radicular pain of right lower extremity Renal insufficiency Right knee pain Smoking hx UTI (urinary tract infection) Surgical History H/O esophagogastroduodenoscopy (~04/2019) Social History Smoking/Tobacco Use Status: Current every day Tobacco Type: cigarettes Years smoked: 50 Smoking risk assessment performed?: Yes Alcohol Intake: current Alcohol Intake frequency: 3 or more drinks per day Drug use: Never Substance use type: does not use Do you feel safe at home: Yes Do you feel safe in your relationship?: Yes Additional Social history: Lives alone in apartment in [facility] for past ~6 years, closest family brother Owen in [place], [place] 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
--- NOTE | 2020-08-06 11:05 | PTTR_ITS ---
Date of service: 08/06/20 Time of Service: 11:05 PT Notes Visit Reasons: GI BLEED, DYDRATION, COPD EXAC Inpatient Physical Therapy Treatment Note [facility] Date: 08/06/2020 PRECAUTIONS: Fall SUBJECTIVE: Rufino is agreeable to participating in PT. He continues to report that he really doesn't want to go to rehab, that he'd rather stay at the hospital until he is ready to return to home. He also feels he is making good progress and feels motivated to participate in PT. He would like to try walking without an assistive device today. OBJECTIVE: PAIN: No c/o pain BED MOBILITY/TRANSFERS Supine-sit: I Sit-supine: I Sit-stand: S Stand-sit: S Bed-Chair: CGA without assistive device Chair-bed: CGA without assistive device GAIT Assistive Device: No AD Weight bearing: Full Assist: CGA Distance: 200' + 100' Deviation: Slight path deviation, mild unsteadiness without LOB, standing rest x3 minutes due to B LE feels weak ASSESSMENT: Patient tolerated session with complaint of increased fatigue with activity. He tolerated gait training without assistive device, although did requires 3 minute standing rest due to feeling weak in B LEs. He is demonstrating good progress with transfers and gait distance, as well as improve d activity tolerance. Held further activities following gait training per patient request. PLAN: Continue with global strengthening as well as gait and transfer training for continued progression toward baseline level of function. TREATMENT CODE/TIME: 10 minutes; 54541
[2020-08-06 13:13] LABS: SARS-CoV-2 RNA Not Detected (NotDetected); SARS-CoV-2 RNA Source Nasal/Nares
--- NOTE | 2020-08-06 15:18 | PDOC.CMPRO ---
Care Management Progress Note CV-19 negative, upon coordination of discharge, [facility] reported they would be unable to offer admission. Khoi will enter SWB1 for lack of disposition due to facility waiting to deny admission and retracting bed offer until day of discharge; on the weekend. CM will re-start discharge planning process from SWB1 status.
--- NOTE | 2020-08-08 07:03 | OT.INDS ---
Date of service: 08/08/20 Time of Service: 07:03 Occupational Therapy Notes Occupational Therapy Inpatient Discharge Summary Date: 08/08/20 Dates of Service: 08/01/20-08/08/20 Referring Doctor: Rose Wagoner NP OT Orders: Non-Urgent Precautions: Standard, Full PATIENT PROFILE/ADMITTING DIAGNOSIS: Pt is a 75 year old male who is currently admitted to [facility] on Med Surg tobacco disorder, failure to thrive, hypomagnesemia, COPD, SAUL, alcohol use diorser, GI bless, Anemia. Past Medical History: Medical History (Updated 07/30/20 @ 14:15 by Rose Wagoner NP) Alcohol use disorder Atrial fibrillation Cooper's esophagus COPD (chronic obstructive pulmonary disease) Depression Failure to thrive Hematemesis Insomnia Radicular pain of right lower extremity Renal insufficiency Right knee pain Smoking hx UTI (urinary tract infection) Surgical History H/O esophagogastroduodenoscopy (~04/2019) Social History/Home Situation: Pt lives alone.He reports that he is (I) with all ADLs/IADLs but when he drinks he struggles with his performance in this. He notes that he has a tub/shower combination which he is unable to transfer in to and states that he has not performed his bathing in weeks- months. 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 He does not socialize on a regular basis and reports depressions. He states that eats [employer] every night and this is becoming an increased expense to him. Equipment owned/DME: shower seat, grab bars SUBJECTIVE: NT OBJECTIVE: ROM: RUE AROM WNL L UE Shoulder flexion limited to 150* with excessive shoulder substitution, pt reports this is chronic, elbow, hand and digits WNL STRENGTH: RUE Shoulder flexion 4-/5, bicep 4/5, tricep 4/5, timber surveyor is strong and symmetrical. LUE Shoulder flexion 4-/5, bicep 4/5, tricep 4/5, timber surveyor is strong and symmetrical. FUNCTIONAL MOBILITY/ADLS: Transfers without assistive device Sit-Stand SBA Stand-sit SBA Rolling L/R: (I) Supine-sit: (I) Sit-supine: (I) BATHING: sitting on side of the bed with max (A) set up/clean up Upper Body: (I) with vc throughout, (I) hair Lower Body: (I) (B) LE with vc for hand placement for stability pt was able to tolerate this well. DRESSING: Upper Extremity: Min (A) don and doffing hospital gown with min vc Lower Extremity: NT BALANCE: Static sitting Normal Dynamic Sitting Normal Static Standing Normal Dynamic Standing Good ASSESSMENT: Patient is a 75-year-old male referred to occupational therapy services with diagnosis of tobacco disorder, failure to thrive, hypomagnesemia, COPD, SAUL, alcohol use diorser, GI bless, Anemia. Pt was seen for 4 skilled OT sessions on acute level status, he has recently been transitioned to [facility] 1 level for care. OT will discharge pt from acute level care at this time and reassess under [facility] level of care. GOALS 1. Eating- sitting in chair (I)- met 2. Dressing- sitting on side of the bed (I) with don and doffing (B) socks and pants- progressing towards 3. Bathing- standing at sink, pt will be able to wash his (B) LE/LE- not met 4. Toileting- (I) on toilet- not met 5. Grooming- Standing at sink pt will be (I) with brushing his teeth- not met PLAN OF CARE/TREATMENT PLAN: Discharge from acute level of care and reassess under [facility] 1. DISCHARGE RECOMMENDATIONS- Based on initial evaluation and assessment of pts functional abilities, OT feels that pt may benefit from SNF vs. home with services. TREATMENT TIME/MINUTES/CODES N/A Viji Brown, OTR/L [facility]
== END 2020-08-06 12:43 | disposition swing bed (61) | DRG 378 ==
LOC: ER 13:49 → MS 14:58
PROVIDERS: Nurse Practitioner Acute Care; Surgery; Admitting Provider Internal Medicine; Emergency Provider Emergency Medicine; PCP Family Medicine; Visit Provider Internal Medicine
PROC: 0DJ68ZZ Inspection of Stomach, Via Natural or Artificial Opening Endoscopic (ICD-10-PCS; CPT 43235; principal; 2020-08-02 12:00)
DX: K29.21 Alcoholic gastritis with bleeding (principal); N17.9 Acute kidney failure, unspecified; N39.0 Urinary tract infection, site not specified; K25.4 Chronic or unspecified gastric ulcer with hemorrhage; E83.42 Hypomagnesemia; R62.7 Adult failure to thrive; F10.10 Alcohol abuse, uncomplicated; F17.210 Nicotine dependence, cigarettes, uncomplicated; I48.91 Unspecified atrial fibrillation; R53.1 Weakness; Z91.14 Patient's other noncompliance with medication regimen; K22.70 Barrett's esophagus without dysplasia; F32.9 Major depressive disorder, single episode, unspecified; G47.00 Insomnia, unspecified; R33.9 Retention of urine, unspecified; N18.9 Chronic kidney disease, unspecified; D50.0 Iron deficiency anemia secondary to blood loss (chronic); B95.2 Enterococcus as the cause of diseases classified elsewhere; J44.9 Chronic obstructive pulmonary disease, unspecified
CPT/HCPCS: 43239; 36415; 76770; 80048; 80053; 86850; 86900; 86901; 86920; 87077; 88305; 93005; 94640; 96365; 96375; 97110; 97162; 97166; 97530; 97535; 99221; 99222; 99223; 99232; 99233; 99239; 99252; 99253; 99254; 99285; U0003; 71045; 80320; 81003; 81015; 83735; 83880; 84484; 85014; 85018; 85025; 87086; 87186; 93010; J0696; J1941; J2001; J2704; J3490; J7620; P9016

== ENCOUNTER 2020-08-06 11:57 | Inpatient (IN) | payer OTHER, SELFPAY ==
[2020-08-06 08:10] VITALS: BP 161/89; PULSE 91; RESP 22; TEMP 36.4; O2SAT 96
[2020-08-06 11:50] VITALS: BP 164/73; PULSE 82; RESP 20; TEMP 37; O2SAT 96
--- NOTE | 2020-08-06 13:26 | HPE_ITS ---
Date of service: 08/06/20 Time of Service: 13:26 Assessment and Plan Assessment and plan (1) Weakness: Start date: 08/06/20 Start time: 13:34 Status: Acute Assessment and plan: He is being placed on SB status to improve strength and gait (2) GI bleed: Start date: 08/06/20 Start time: 16:25 Status: Chronic Assessment and plan: Likely secondary to alcohol. Increase PPI to BID, H/H stable, no bleeding Carafate Encourage abstaining from alcohol Qualifiers: GI bleed type/associated pathology: gastritis Gastritis type: alcoholic Qualified Code(s): K29.21 - Alcoholic gastritis with bleeding (3) UTI (urinary tract infection): Start date: 08/06/20 Start time: 16:21 Status: Resolved Assessment and plan: Continue ampicillin for total [address] Ramos is following patient will d/c catheter on Saturday and trial voiding Qualifiers: Urinary tract infection type: site unspecified Hematuria presence: with hematuria Qualified Code(s): N39.0 - Urinary tract infection, site not specified; R31.9 - Hematuria, unspecified (4) Urinary retention: Start date: 08/06/20 Start time: 16:22 Status: Chronic Assessment and plan: Increased flomax, d/c catheter on Saturday and PVR with bowel regimen (5) Tobacco abuse disorder: Start date: 08/06/20 Start time: 16:23 Status: Chronic Assessment and plan: No interest in quitting (6) COPD (chronic obstructive pulmonary disease): Start date: 08/06/20 Start time: 16:23 Status: Chronic Assessment and plan: Not exacerbated at this time Qualifiers: COPD type: unspecified COPD Qualified Code(s): J44.9 - Chronic o bstructive pulmonary disease, unspecified (7) Atrial fibrillation: Start date: 08/06/20 Start time: 16:23 Status: Acute Assessment and plan: Stopped anticoagulants in setting of GI bleed. Will monitor (8) Alcohol use disorder: Start date: 08/06/20 Start time: 16:24 Status: Chronic Assessment and plan: Has no interest in quitting drinking. States he will drink as soon as he is discharged. (9) Anemia: Start date: 08/06/20 Start time: 16:24 Status: Chronic Assessment and plan: He received 2 UPRBC while inpatient. Secondary to chronic drinking. Will give thiamine Qualifiers: Anemia type: iron deficiency Iron deficiency anemia type: chronic blood loss Qualified Code(s): D50.0 - Iron deficiency anemia secondary to blood loss (chronic) History of Present Illness History of Present Illness Chief Complaint: Weakness, GI bleed, alcoholism Narrative: 75 y.o male with PMH tobacco and ETOH use, afib, presented to [facility] with anxiety and SOB. Labs revealed anemia with normal WBC, elevated creatinine. He was given PPI and 1 unit PRBC. He did have positive stool guaiac and was admitted to [facility] for further management. Over course of hospitalization he received 2 units PRBC. He had upper endoscopy and was placed on PPI BID with Carafate. H/H stabilized. He was found to have urinary retention with UTI. Dr. Ramos consulted. Catheter placed, he recommends leaving catheter in place until Saturday then doing a voiding trial. He can be followed as an outpatient. He will finish course of ampicillin. He is being transitioned to SB status to finish his strengthening and conditioning with PT/OT. COVID negative. Review of Systems All systems reviewed & are unremarkable except as noted in HPI and below [facility] Medical History Alcohol use disorder Atrial fibrillation Cooper's esophagus COPD (chronic obstructive pulmonary disease) Depression Failure to thrive Hematemesis Insomnia Radicular pain of right lower extremity Renal insufficiency Right knee pain Smoking hx UTI (urinary tract infection) Surgical History H/O esophagogastroduodenoscopy (~04/2019) Social History Smoking/Tobacco Use Status: Current every day Tobacco Type: cigarettes Years smoked: 50 Smoking risk assessment performed?: Yes Alcohol Intake: current Alcohol Intake frequency: 3 or more drinks per day Drug use: Never Substance use type: does not use Do you feel safe at home: Yes Do you feel safe in your relationship?: Yes Additional Social history: Lives alone in apartment in [facility] for past ~6 years, closest family brother Owen in [place], [place] 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 Medications and Allergies Home Medications Medication Instructions Recorded Confirmed Type Nicotrol 30 cartridge INHALATION 08/30/19 08/06/20 Rx DIRECTED PRN #10 ea acetaminophen [Mapap Extra 1,000 mg PO Q8H #90 tab 08/30/19 08/06/20 Rx Strength] ascorbic acid (vitamin C) [Vitamin 500 mg PO BID #60 tab 08/30/19 08/06/20 Rx C] budesonide-formoterol [Symbicort] 2 puff INHALATION BID #10.2 gm 08/30/19 08/06/20 Rx cyanocobalamin (vitamin B-12) 1,000 mcg PO DAILY #60 tab 08/30/19 08/06/20 Rx [Vitamin B-12] cyclobenzaprine 10 mg PO TID #90 tab 08/30/19 08/06/20 Rx diltiazem HCl [Cardizem] 30 mg PO TID #90 tab 08/30/19 08/06/20 Rx docusate sodium [Colace] 100 mg PO BID #60 cap 08/30/19 08/06/20 Rx duloxetine [Cymbalta] 30 mg PO DAILY #30 cap 08/30/19 08/06/20 Rx ferrous sulfate 325 mg PO BID #60 tab 08/30/19 08/06/20 Rx gabapentin 200 mg PO TID #180 cap 08/30/19 08/06/20 Rx ipratropium-albuterol 3 ml UPD Q6H PRN PRN #180 ml 08/30/19 08/06/20 Rx magnesium oxide 400 mg PO BID@1000,2200 #60 tab 08/30/19 08/06/20 Rx melatonin 3 - 6 mg PO HS PRN PRN #60 tab 08/30/19 08/06/20 Rx multivitamin [Multiple Vitamins] 1 tab PO DAILY #30 tab 08/30/19 08/06/20 Rx sucralfate 1 g PO AC & HS #120 tab 08/30/19 08/06/20 Rx thiamine mononitrate (vit B1) 100 mg PO DAILY #30 tab 08/30/19 08/06/20 Rx [Vitamin B-1 (mononitrate)] ampicillin 500 mg PO QID #8 cap 08/06/20 08/06/20 Rx finasteride 5 mg PO DAILY #15 tab 08/06/20 08/06/20 Rx pantoprazole 40 mg PO BID@0730,1999 #20 tab 08/06/20 08/06/20 Rx tamsulosin 0.8 mg PO DAILY #15 cap 08/06/20 08/06/20 Rx Allergies Allergy/AdvReac Type Severity Reaction Status Date / Time bupropion AdvReac Severe seizures Verified 07/30/20 14:35 Exam Const General: cooperative, no acute distress, frail appearing and ill appearing chronically Nutritional Appearance: obese Orientation: alert, awake and oriented x3 Eyes Conjunctivae: conjunctivae normal Pupils: PERRL EOM: EOM intact bilaterally Neck Neck: normal visual inspection and full ROM Thyroid: thyroid normal Lymphatic: no lymphadenopathy noted and no lymphedema noted Resp Effort & Inspection: normal respiratory effort Auscultation: clear to auscultation bilaterally Cardio Jugular venous pressure: no JVD Rate: regular rate Rhythm: regular rhythm Heart Sounds: S1 normal and S2 normal GI Inspection: normal to inspection Auscultation: normal bowel sounds Back/Spine/Pelvis Back: no CVA tenderness Thoracic/Lumbar Spine: thoracic and lumbar spine normal to inspection Skin General skin exam: other (abrasions to lower extremity improving in appearance) Neuro General: patient alert, patient awake and patient oriented x3 Cognition: normal cognition Speech: speech normal Extrem General: normal to inspection and no clubbing, cyanosis or edema COVID-19 Screening Have you,or household,traveled outside [place] in last 14 days?: No
[2020-08-06] MEDS: Gabapentin 100 MG CAP 200 MG PO ×2 (14:40→19:30)
[2020-08-06] MEDS: dilTIAZem 30 MG TAB PO ×2 (14:40→19:31)
[2020-08-06] MEDS: Acetaminophen 500 MG TAB 1000 MG PO ×2 (14:40→22:02)
--- NOTE | 2020-08-06 15:21 | CMSA_ITS ---
- If Service Date Differs Date of service: 08/06/20 Time of Service: 19:23 SB Psychosocial/Act.Assessment - Hospital Admission Admission Date: 07/30/20 Admission From:: Home Diagnosis:: GI Bleed, dehydration, COPD Exacerbation - Swing Bed Admission Swing Bed Level of Care: Level 1/SNF - Social Supports PREVIOUS FUNCTIONAL STATUS/SOCIAL/FAMILY SUPPORTS:: Khoi resides alone in an apartment in [facility]. He is a of both the [employer] and [employer]. He has a brother in [place] who is supportive of him. He also has two sons who reside in [place], but has little contact with them at this time. Khoi has been struggling at home for the past year with increased weakness and failure to thrive. He has a history of denying coordinated services once home, and has struggled with alcohol use disorder for most of his life. He entered [facility] from 08/20/19-09/01/19 last year. This CM coordinated wrap around service supports i ncluding the [place]-(, coordination of at home services including homemaker supports and sobriety resources), blister packed meds through [employer] transportation, [facility], [facility] [place], [facility], [facility]: [facility]. WILLOW Roberto RNCM reports Khoi cancelled services shortly after discharge) - Prior to Admission Living Arrangements/Environment Prior to Admission:: Alone, apartment. As above. - [place]: Yes - Benefits Financial: Medicare, Medicaid, VA Health Benefits (Not active due to lack of follow through) - [facility] Active Druze Member:: No Will Druze Members or Bottling Equipment Sales Representative Visit:: No - Advance Directives for Healthcare Advance Directives for Healthcare: Advance Directives (COLST) - Present Functional Status Physical Abilities:: Deconditioned Cognitive:: Alert and oriented Behavior:: Pleasant, with intermittent need for encouragement. - Medical History PAST MEDICAL HISTORY/PAST SURGICAL HISTORY:: Medical History: Alcohol use disorder, Atrial fibrillation, Cooper's esophagus, COPD (chronic obstructive pulmonary disease), Depression,. Failure to thrive, Hematemesis, Insomnia, Radicular pain of right lower extremity, Renal insufficiency, Right knee pain, Smoking hx, and UTI (urinary tract infection). Surgical History: H/O esophagogastroduodenoscopy (~04/2019) - Admission Data Reason for Swing Bed Admission:: Patient will benefit from care home facil ity placement in order to progress mobility level, strength, and balance in preparation for a safe discharge to home. Due to decline from identified SNF day of discharge, Khoi entered SWB1. Discharge Plan:: SWB1 to home with increased [id number]. Assessment: Inability to safely ambulate without physical assistance, Increase completion time for mobility ADL performance, Increased fall risk, Inability to negotiate steps alone safely-15 steps into home. Administrative Officer: Haydee Bravo Date Assessment was completed:: 08/06/20
[2020-08-06 15:29] VITALS: BP 133/80; PULSE 86; RESP 19; TEMP 36.6; O2SAT 96
--- NOTE | 2020-08-06 16:27 | CM.SWINGPC ---
- If Service Date Differs Date of service: 08/06/20 Time of Service: 19:27 Swingbed Plan of Care Plan of care: SWING BED PROGRAM ACTIVITIES/DISCHARGE PLAN OF CARE ACTIVITIES PLAN Date: 08/06/20 Identified Need: Life enrichment during extended hospitalization. Intervention/Plan: CART items, CM visits and activities will continue to be offered as well as remote family contact. Initials: [facility] DISCHARGE PLAN Date: 08/06/20 Identified Need: Progession of mobility level, stair training, increased strength and balance. Increased service supports in home setting. Intervention/Plan: PT/OT, SNF coordination, support with identifying and connecting to community based services. Initials: JONAH
[2020-08-06] MEDS: Sucralfate 1 GM TAB PO ×2 (18:13→22:03)
[2020-08-06] MEDS: Ampicillin 500 MG CAP PO ×2 (18:13→19:32)
[2020-08-06] MEDS: Docusate Sodium 100 MG CAP PO (19:31)
[2020-08-06] MEDS: Pantoprazole 40 MG TABCR PO (19:31)
[2020-08-06] MEDS: Ascorbic Acid 500 MG TAB PO (19:31)
[2020-08-06] MEDS: Ferrous Sulfate 325 MG TAB PO (19:32)
[2020-08-06] MEDS: Budesonide/Formoterol 160/4.5 6 GM 60 PUFF INH IH (19:33)
[2020-08-06] MEDS: Ipratropium/Albuterol 4 GM 120 PUFF INH IH (19:34)
[2020-08-06] MEDS: Melatonin 3 MG TAB 9 MG PO (22:03)
[2020-08-06] MEDS: Magnesium Oxide 400 MG TAB PO (22:04)
[2020-08-07] VITALS: BP 138/75; PULSE 82; RESP 16; TEMP 36.8; O2SAT 97
[2020-08-07 07:35] VITALS: BP 170/89; PULSE 73; RESP 19; TEMP 37.4; O2SAT 98
[2020-08-07] MEDS: Ipratropium/Albuterol 4 GM 120 PUFF INH IH ×2 (07:52→19:35)
[2020-08-07] MEDS: Budesonide/Formoterol 160/4.5 6 GM 60 PUFF INH IH ×2 (07:53→22:46)
--- NOTE | 2020-08-07 08:46 | PT.INIE ---
Date of service: 08/07/20 Time of Service: 09:00 PT Notes Visit Reasons: Weakness Inpatient Physical Therapy Swingbed Evaluation Date: 08/07/20 Referring Doctor: Desirae Kulkarni PT Orders: Eval/treat Precautions: Fall. Standard. WBAT. Patient Profile/Admitting Diagnosis: Khoi is a 75-year-old male with a past medical history significant for alcohol abuse and COPD who presented to the ED on 07/30/2019 with chief complaints of shortness of breath and generalized weakness. He is diagnosed with GI bleed, acute kidney injury, chronic obstructive pulmonary disease, EtOH use disorder, hypomagnesemia, failure to thrive, and tobacco abuse. He transitioned to swing bed on 08/06/20. PMHX: Medical History Alcohol use disorder Atrial fibrillation Cooper's esophagus COPD (chronic obstructive pulmonary disease) Depression Failure to thrive Hematemesis Insomnia Radicular pain of right lower extremity Renal insufficiency Right knee pain Smoking hx UTI (urinary tract infection) Surgical History H/O esophagogastroduodenoscopy (~04/2019) Social History/Home Situation: Patient lives alone in an apartment with 15 steps to get in with a rail on the right going up. He was independent with all aspects of ADLs without the need for an assistive ambulatory device nor adaptive equipment although he stated that recently it has been very difficult to do so due to weakness and uncontrolled alcoholism. Equipment Owned/DME: None but will need a FWW. SUBJECTIVE: Patient reports legs are feeling weak. Agreeable to PT. Declines stairs. Reports needing to work on leg strength and walking activity. OBJECTIVE: General Observation: Resting in bed, murry catheter Mental Status: A&O x4 Pain: Reports none ROM: Right Upper Extremity: Shoulder Flexion WFL. Shoulder abduction WFL. Elbow flexion WFL. Wrist flexion WFL. Functional opening and closing of hand WFL. Left Upper Extremity: Shoulder Flexion WFL. Shoulder abduction WFL. Elbow flexion WFL. Wrist flexion WFL. Functional opening and closing of hand WFL. Right Lower Extremity: Hip flexion WFL. Hip abduction WFL. Knee flexion WFL. Ankle dorsiflexion WFL. Ankle plantarflexion WFL. Left Lower Extremity: Hip flexion WFL. Hip abduction WFL. Knee flexion WFL. Ankle dorsiflexion WFL. Ankle plantarflexion WFL. Strength: Right Upper Extremity: Shoulder flexors 4/5. Shoulder abductors 4/5. Elbow flexors 4/5. Elbow extensors 4/5. Cyber Crime Investigator strong. Left Upper Extremity: Shoulder flexors 4/5. Shoulder abductors 4/5. Elbow flexors 4/5. Elbow extensors 4/5. Cyber Crime Investigator strong. Right Lower Extremity: Hip flexors 4/5. Hip abductors 3-/5. Knee flexors 4+/5. Knee extensors 4/5. Ankle dorsiflexors 4+/5. Ankle plantarflexors 3-/5. Left Lower Extremity: Hip flexors 3+/5. Hip abductors 3-/5. Knee flexors 4+/5. Knee extensors 4/5. Ankle dorsiflexors 4+/5. Ankle plantarflexors 3-/5. SENSATION: Intact as to pain and pressure on bilateral lower extremities BED MOBILITY/TRANSFERS: Supine to sit Independent Sit to supine Independent Sit to stand Supervision Stand to sit Supervision GAIT: 220' without AD, SBA - reports of weakness in legs and onset of leg pain 12/07 BALANCE: Static sitting Normal Dynamic Sitting Good Static Standing Fair Dynamic Standing Fair Mobility Limitations Standardized Measure [facility] AM -PAC ?6 clicks? Basic Mobility Inpatient Short Form: Raw score: 22 CMS score: 21% INFORMED CONSENT/EDUCATION: Patient instructed in purpose of PT Consult and plan of care. ASSESSMENT: Patient is a 75 year old male referred to physical therapy services with a past medical history significant for alcohol abuse and COPD who presented to the ED on 07/30/2019 with chief complaints of shortness of breath and generalized weakness. He is diagnosed with GI bleed, acute kidney injury, chronic obstructive pulmonary disease, EtOH use disorder, hypomagnesemia, failure to thrive, and tobacco abuse. He transitioned to swing bed on 08/06/20. He is demonstrating improvements in functional mobility and strength, but has ongoing limitations from being independent at home. Motivation level is limited. He has been able to walk without an assistive device with SBA, but reports fatigue and pain in legs. Patient presents with clinical signs and symptoms consistent with current/admitting diagnoses that have resulted to mobility limitations, gait instability, generalized weakness, and impairment of motor control as demonstrated by the following impairment level findings: 1. Decreased strength to B UE/LE major muscle groups 2. Impaired sitting/standing balance 3. Impaired activity tolerance Impairments are contributing to the following functional limitations: 1. Inability to safely ambulate without physical assistance 2. Increase completion time for mobility ADL performance 3. Increased fall risk 4. Inability to negotiate steps alone safely Patient is assessed as a 83900 moderate complexity based on the following: History: Patient is a 75-year-old male with a past medical history, impairment level findings, and functional limitations as listed above Examination: Demonstrable impairment in strength, balance, and range of motion as tested above Presentation: Evolving Decision Makin moderate complexity Goals: Goals X1 week 1. Supine-Sit independent 2. Sit-Supine independent 3. Sit-Stand independent 4. Stand-Sit independent 5. Bed-Chair independent 6. Chair-Bed independent 7. Independent gait on level surface with use of least restrictive device for at least 300 feet without report of pain nor dyspnea 8. Independent stair negotiation while holding onto bilateral rails for at least 10 steps without report of pain nor dyspnea 9. Independent with home exercise program 10. Good static and dynamic standing balance/tolerance PLAN OF CARE/TREATMENT PLAN: 1-2x/day, 7 days/ week x 1 week Plan of care has been reviewed with the STONECUTTER APPRENTICE HAND providing the service under Physical therapy direction. Initiate physical therapy intervention for strengthening, bed mobility, transfers, gait, stairs, balance training, use of assistive device. DISCHARGE RECOMMENDATIONS: Patient will benefit from fpc facility placement in order to progress mobility level, strength, and balance in preparation for a safe discharge to home. TREATMENT CODE/TIME: 16587 x 24 minutes beginning at 9:00.
[2020-08-07] MEDS: Gabapentin 100 MG CAP 200 MG PO ×3 (09:02→19:34)
[2020-08-07] MEDS: Tamsulosin 0.4 MG CAPCR 0.8 MG PO (09:02)
[2020-08-07] MEDS: Docusate Sodium 100 MG CAP PO ×2 (09:02→20:00)
[2020-08-07] MEDS: Ascorbic Acid 500 MG TAB PO ×2 (09:02→19:34)
[2020-08-07] MEDS: Sucralfate 1 GM TAB PO ×4 (09:03→22:47)
[2020-08-07] MEDS: DULoxetine 30 MG CAP PO (09:03)
[2020-08-07] MEDS: dilTIAZem 30 MG TAB PO ×3 (09:03→19:34)
[2020-08-07] MEDS: Finasteride 5 MG TAB PO (09:03)
[2020-08-07] MEDS: Thiamine 100 MG TAB PO (09:03)
[2020-08-07] MEDS: Multivitamin TAB 1 TAB PO (09:03)
[2020-08-07] MEDS: Pantoprazole 40 MG TABCR PO ×2 (09:04→19:35)
[2020-08-07] MEDS: Ferrous Sulfate 325 MG TAB PO ×2 (09:04→19:35)
[2020-08-07] MEDS: Ampicillin 500 MG CAP PO ×4 (09:04→19:33)
[2020-08-07] MEDS: Magnesium Oxide 400 MG TAB PO ×2 (09:45→22:47)
[2020-08-07] MEDS: Acetaminophen 500 MG TAB 1000 MG PO ×2 (14:50→22:47)
[2020-08-07 15:41] VITALS: BP 166/83; PULSE 84; RESP 19; TEMP 37; O2SAT 94
[2020-08-07] MEDS: Melatonin 3 MG TAB 9 MG PO (22:47)
[2020-08-07 23:45] VITALS: BP 171/79; PULSE 67; RESP 18; TEMP 36.4; O2SAT 96
[2020-08-08] MEDS: Acetaminophen 500 MG TAB 1000 MG PO ×3 (06:58→21:25)
[2020-08-08] MEDS: Sucralfate 1 GM TAB PO ×4 (06:58→21:26)
[2020-08-08] MEDS: Pantoprazole 40 MG TABCR PO ×2 (06:58→19:18)
[2020-08-08 07:37] VITALS: BP 178/81; PULSE 75; RESP 18; TEMP 36.9; O2SAT 94
[2020-08-08] MEDS: Budesonide/Formoterol 160/4.5 6 GM 60 PUFF INH IH ×2 (07:49→19:19)
[2020-08-08] MEDS: Ipratropium/Albuterol 4 GM 120 PUFF INH IH ×3 (07:50→16:17)
[2020-08-08] MEDS: Finasteride 5 MG TAB PO (07:55)
[2020-08-08] MEDS: Multivitamin TAB 1 TAB PO (07:55)
[2020-08-08] MEDS: Docusate Sodium 100 MG CAP PO ×2 (07:55→19:16)
[2020-08-08] MEDS: Gabapentin 100 MG CAP 200 MG PO ×3 (07:55→19:18)
[2020-08-08] MEDS: Ascorbic Acid 500 MG TAB PO ×2 (07:55→19:17)
[2020-08-08] MEDS: Tamsulosin 0.4 MG CAPCR 0.8 MG PO (07:55)
[2020-08-08] MEDS: Thiamine 100 MG TAB PO (07:56)
[2020-08-08] MEDS: Ferrous Sulfate 325 MG TAB PO ×2 (07:56→19:18)
[2020-08-08] MEDS: Ampicillin 500 MG CAP PO ×4 (07:56→19:17)
[2020-08-08] MEDS: DULoxetine 30 MG CAP PO (07:56)
[2020-08-08] MEDS: dilTIAZem 30 MG TAB PO ×3 (07:57→19:18)
--- NOTE | 2020-08-08 09:02 | OTIE_ITS ---
Occupational Therapy Notes Inpatient Occupational Therapy [facility] Evaluation Date:08/08/20 Referring Doctor: Desirae Kulkarni NP OT Orders: Non-Urgent Precautions: Standard, Full PATIENT PROFILE/ADMITTING DIAGNOSIS: Pt is a 75 year old male who is currently admitted to [facility] on Med Surg tobacco disorder, failure to thrive, hypomagnesemia, COPD, SAUL, alcohol use diorser, GI bless, Anemia. He was recently transitioned to [facility] rehabilitation status and is seen for evaluation today. Past Medical History: Medical History (Updated 07/30/20 @ 14:15 by Rose Wagoner NP) Alcohol use disorder Atrial fibrillation Cooper's esophagus COPD (chronic obstructive pulmonary disease) Depression Failure to thrive Hematemesis Insomnia Radicular pain of right lower extremity Renal insufficiency Right knee pain Smoking hx UTI (urinary tract infection) Surgical History H/O esophagogastroduodenoscopy (~04/2019) Social History/Home Situation: Pt lives alone.He reports that he is (I) with all ADLs/IADLs but when he drinks he struggles with his performance in this. He notes that he has a tub/shower combination which he is unable to transfer in to and states that he has not performed his bathing in weeks- months. 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 He does not socialize on a regular basis and reports depressions. He states that eats [employer] every night and this is becoming an increased expense to him. Equipment owned/DME: shower seat, grab bars SUBJECTIVE: Pt was lying in bed when OT arrived. He was agreeable to OT session and notes that he is struggling with depression but hopes that this will get better. OBJECTIVE: General Observation: pleasant and agreeable, IV (R) UE not connected. 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 LUE Shoulder flexion 4-/5, bicep 4/5, tricep 4/5, take out waiter is strong and symmetrical. FUNCTIONAL MOBILITY/ADLS: Transfers without assistive device Sit-Stand (S) Stand-sit (S) BATHING- sitting on side of the bed with max (A) set up/clean up (I) face, (B) UE and abdomen, he denies jaquan area and is able to wash his (B) LE DRESSING Dressing UE Sitting on side of the bed (I) min vc with [facility] gown Dressing LE Sitting on side of bed pt is able to (I) don and doff his (B) socks GROOMING Sitting pt is able to (I) brush his own hair TOILETING pt denies need to perform this EATING NT at todays session BALANCE: Static sitting Normal Dynamic Sitting Normal Static Standing Normal Dynamic Standing Good SPECIAL TESTS: Daily Activity Limitations Standardized Measure [facility] AM -PAC ?6 clicks? Daily Activity Inpatient Short Form: Raw score: 19 Standardized score: 40.22 CMS score: 42.80% INFORMED CONSENT/EDUCATION: Pt instructed in purpose of OT Consult and plan of care. ASSESSMENT: Patient is a 75-year-old male referred to occupational therapy services with diagnosis of tobacco disorder, failure to thrive, hypomagnesemia, COPD, SAUL, alcohol use diorser, GI bless, Anemia. Patient presents with clinical signs and symptoms consistent with dx. He has c/o depression, he has not performed his bathing routine for weeks + at this time, he is presenting with decreased functional activity tolerance, decreased performance of standing ADLs, decreased performance of healthy nutrition as pt eats [employer] every night. Pt would benefit from skilled OT services to improve his quality of life and return to his premorbid level of functions. He will be seen at this time under [facility] rehabilitation care. AMPAC score 19. CMS score 42.80% Patient is assessed as a Low 97212 complexity based on the following: History: See Above Examination: See Above Presentation: Evolving Decision Making: AMPAC score 19, CMS score 42.80% GOALS Goals x1 week 1. Dressing- sitting on side of the bed (I) with don and doffing (B) socks and pants 2. Bathing- standing at sink, pt will be able to wash his (B) LE/LE 3. Toileting- (I) on toilet 4. Grooming- Standing at sink pt will be (I) with brushing his teeth PLAN OF CARE/TREATMENT PLAN: 1x/day, 5 days/ week x 1week Initiate Occupational Therapy Services for bathing, dressing, grooming, toileting, eating, transfer training. DISCHARGE RECOMMENDATIONS- Based on initial evaluation and assessment of pts functional abilities, OT feels that pt may benefit from SNF vs. home with HH services. TREATMENT TIME/MINUTES/CODES 59247, 1 5minutes (07:55) Viji Brown OTR/[facility]
[2020-08-08] MEDS: Magnesium Oxide 400 MG TAB PO ×2 (10:29→21:25)
--- NOTE | 2020-08-08 15:55 | PHA.REVIEW ---
Pharmacy Admission Review - Admission Clinical Review (Last Reviewed 08/06/20 @ 13:27 by Desirae Kulkarni NP) Weakness (Acute) Atrial fibrillation (Acute) bupropion Adverse Reaction (Severe, Verified 07/30/20 14:35) seizures Height 5 ft 5 in Weight 71 kg - Renal Dosing Medications needing adjustments: Reviewed (Crcl ~51 mL/min current meds okay) - Anticoagulation DVT Prohphylaxis: N/A Therapeutic Anticoagulation: N/A - Opiate Usage Evaluate Pain Scale/Pains Meds: N/A - Relevant Labs Electrolytes, C-Reactive P, ESR: N/A - DM Control Insulin Dosing: N/A - Heart Failure/FL EF%, SONIYA's, B-Blockers, Diuretics: N/A - BP Control BP Control: Blood Pressure 178/81 If elevated: Reviewed (BP elevated before AM meds given) - Qtc Review If Elevated: N/A - IV to PO Switch IV Medications: Reviewed - Home Meds Home Med List reviewed: Reviewed (Multiple anticholinergic meds- recommended to avoid concocurrent use; monitor for toxicity if using in combination. Multivitamins may increase the absorption of aluminum from sucralfate; avoid chronic excessive use of this combination. Separate admin of mag oxide and gabaptenin.) Relevent Home Meds Not ordered & why?: cyanocobalamin - Current meds Current Medication Order Review: Intervened (asked provider if pt still needed scheduled ipratropium/albuterol in addition to budesnoide/formoterol (ipratropium/albuterol listed as PRN on home med list).) - Comments Comments/Follow Ups: Watch BP, labs and for med changes. Antibiotic Activity - Pharmacy Antibiotic Review Pharmacy Antibiotic Activity: Reviewed, no change (stop date entered on the ampicillin)
[2020-08-08 16:24] VITALS: BP 162/96; PULSE 98; RESP 19; TEMP 36.6; O2SAT 94
[2020-08-08] MEDS: Melatonin 3 MG TAB 9 MG PO (21:23)
[2020-08-09 00:20] VITALS: BP 162/74; PULSE 90; RESP 16; TEMP 36.9; O2SAT 96
[2020-08-09 07:54] VITALS: BP 189/106; PULSE 79; RESP 17; TEMP 37.1; O2SAT 96
[2020-08-09 07:55] VITALS: BP 145/78
[2020-08-09] MEDS: Budesonide/Formoterol 160/4.5 6 GM 60 PUFF INH IH ×2 (07:57→21:50)
--- NOTE | 2020-08-09 08:46 | OT.INNT ---
Date of service: 08/09/20 Time of Service: 08:35 Occupational Therapy Notes 08/09/20 Pt reports that he would like to hold on OT services. He is not interested in getting washed or performing any of his ADLs at this time and notes that he is willing to participate tomorrow. Viji Brown, OTR/L [facility]
[2020-08-09] MEDS: Ampicillin 500 MG CAP PO ×4 (09:13→21:38)
[2020-08-09] MEDS: Thiamine 100 MG TAB PO (09:13)
[2020-08-09] MEDS: DULoxetine 30 MG CAP PO (09:13)
[2020-08-09] MEDS: Tamsulosin 0.4 MG CAPCR 0.8 MG PO (09:13)
[2020-08-09] MEDS: Magnesium Oxide 400 MG TAB PO ×2 (09:13→21:38)
[2020-08-09] MEDS: Sucralfate 1 GM TAB PO ×4 (09:13→21:37)
[2020-08-09] MEDS: Finasteride 5 MG TAB PO (09:13)
[2020-08-09] MEDS: Pantoprazole 40 MG TABCR PO ×2 (09:13→21:38)
[2020-08-09] MEDS: Multivitamin TAB 1 TAB PO (09:13)
[2020-08-09] MEDS: Gabapentin 100 MG CAP 200 MG PO ×3 (09:13→21:37)
[2020-08-09] MEDS: dilTIAZem 30 MG TAB PO ×3 (09:13→21:37)
[2020-08-09] MEDS: Ferrous Sulfate 325 MG TAB PO ×2 (09:14→21:38)
[2020-08-09] MEDS: Ascorbic Acid 500 MG TAB PO ×2 (09:14→21:37)
[2020-08-09] MEDS: Docusate Sodium 100 MG CAP PO ×2 (09:14→21:38)
[2020-08-09 12:29] VITALS: BP 159/94; PULSE 71; RESP 16; TEMP 36.4; O2SAT 96
[2020-08-09 15:46] VITALS: BP 134/68; PULSE 81; RESP 18; TEMP 36.6; O2SAT 96
--- NOTE | 2020-08-09 16:13 | PT.INTREAT ---
Date of service: 08/09/20 Time of Service: 14:00 PT Notes Visit Reasons: Weakness Inpatient Physical Therapy Treatment Note [facility] Date: 08/08/2020 PRECAUTIONS: Fall SUBJECTIVE: Rufino is in good spirits today, he reports that he is feeling good. He is found to be sitting up in the chair, stating I just do not want to lay around in bed anymore today. OBJECTIVE: PAIN:No c/o pain BED MOBILITY/TRANSFERS Sit-stand: S Stand-sit: S GAIT Assistive Device: FWW Weight bearing: Full Assist: S Distance: 120' x2 Deviation: Seated rest, mild SOB STAIRS: Up/down 12x6 using unilateral rail and a step to pattern with CGA. Patient required seated rest following stair negotiation. ASSESSMENT: Patient tolerated session with minimal complaint of increased fatigue and SOB with activity, requiring seated rest following gait training and stair negotiation. He demonstrates improved safety awareness with ambulation and stair negotiation. He is demonstrating good progress with transfers and gait training with FWW support, requiring only supervision, and he demonstrates improved activity tolerance. PLAN: Continue with global strengthening as well as gait and stair training for continued progression toward baseline level of function. TREATMENT CODE/TIME: 25 minutes; [id number] x2
--- NOTE | 2020-08-09 16:17 | PT.INTREAT ---
Date of service: 08/09/20 Time of Service: 14:00 PT Notes Visit Reasons: Weakness Inpatient Physical Therapy Treatment Note [facility] Date: 08/09/2020 PRECAUTIONS: Fall SUBJECTIVE: Rufino reports I just don't feel good today. He states that he has not been out of bed much today, and he felt lightheaded when walking to the toilet earlier today. OBJECTIVE: PAIN: Patient complaining of bilateral lower extremity pain with gait training BED MOBILITY/TRANSFERS Supine?sit: I Sit?supine: I Sit-stand: S Stand-sit: S GAIT Assistive Device: FWW Weight bearing: Full Assist: S Distance: 120' Deviation: Complaint of increased fatigue, complaint of B LE pain ASSESSMENT: Patient tolerated session with complaint of increased fatigue and B LE pain with gait training. He appears limited due to not feeling well today, tolerating only minimal activity. PLAN: Continue with global strengthening as well as gait and stair training for continued progression toward baseline level of function. TREATMENT CODE/TIME: 10 minutes; [id number]
[2020-08-09] MEDS: Melatonin 3 MG TAB 9 MG PO (21:37)
[2020-08-09] MEDS: Acetaminophen 500 MG TAB 1000 MG PO (21:38)
[2020-08-09 23:15] VITALS: BP 130/80; PULSE 65; RESP 17; TEMP 36.4; O2SAT 95
[2020-08-10 08:04] VITALS: BP 143/85; PULSE 85; RESP 17; TEMP 37.1; O2SAT 97
[2020-08-10] MEDS: Budesonide/Formoterol 160/4.5 6 GM 60 PUFF INH IH ×2 (08:13→20:03)
[2020-08-10] MEDS: Ampicillin 500 MG CAP PO ×2 (08:18→11:27)
[2020-08-10] MEDS: Thiamine 100 MG TAB PO (08:19)
[2020-08-10] MEDS: Ferrous Sulfate 325 MG TAB PO ×2 (08:19→20:04)
[2020-08-10] MEDS: Docusate Sodium 100 MG CAP PO ×2 (08:19→20:04)
[2020-08-10] MEDS: Multivitamin TAB 1 TAB PO (08:19)
[2020-08-10] MEDS: Finasteride 5 MG TAB PO (08:19)
[2020-08-10] MEDS: DULoxetine 30 MG CAP PO (08:19)
[2020-08-10] MEDS: Ascorbic Acid 500 MG TAB PO ×2 (08:19→20:04)
[2020-08-10] MEDS: Pantoprazole 40 MG TABCR PO ×2 (08:19→20:04)
[2020-08-10] MEDS: Sucralfate 1 GM TAB PO ×4 (08:19→21:44)
[2020-08-10] MEDS: Tamsulosin 0.4 MG CAPCR 0.8 MG PO (08:19)
[2020-08-10] MEDS: dilTIAZem 30 MG TAB PO ×3 (08:19→20:04)
[2020-08-10] MEDS: Gabapentin 100 MG CAP 200 MG PO ×3 (08:19→20:04)
[2020-08-10] MEDS: Normal Saline Flush 10 ML SYR IVP (08:20)
--- NOTE | 2020-08-10 09:28 | NT_ITS ---
Date of service: 08/10/20 Time of Service: 09:15 Occupational Therapy Notes 08/10/20 OT attempted to see pt who resumed OT services again today. OT did discuss with pt that if he continues to refuse care that we can discharge OT services. He notes that he would like to continue and OT will attempt one more time tomorrow. Viji Brown, OTR/L [facility]
[2020-08-10] MEDS: Magnesium Oxide 400 MG TAB PO ×2 (10:21→21:44)
[2020-08-10] MEDS: Acetaminophen 500 MG TAB 1000 MG PO ×2 (13:31→21:44)
--- NOTE | 2020-08-10 14:43 | PT.INTREAT ---
Date of service: 08/10/20 Time of Service: 14:43 PT Notes Visit Reasons: Weakness 08/10/2020 SUBJECTIVE: Khoi agreeable to walk with me today. He notes that his breathing is improved. OBJECTIVE: [id number] TRANSFERS Supine to sit: I Sit to supine: I Sit to stand: I Stand to sit: I GAIT Device: FWW Weight bearing: Full Assist: S Distance: 100'x2 with sit rest break THEREX: Pt declined. ASSESSMENT: Tolerates PT well. His LE's fatigue quickly with ambulation today although he notes his breathing is easier. PLAN: Continue current POC progressing toward's established goals. Treatment time: 10 minutes Yee Cordon PTA Clinic location: [facility] [place], [place]
[2020-08-10 15:19] VITALS: BP 158/81; PULSE 75; RESP 18; TEMP 37.2; O2SAT 96
[2020-08-10] MEDS: Melatonin 3 MG TAB 9 MG PO (21:44)
[2020-08-10 23:15] VITALS: BP 152/68; PULSE 70; RESP 17; TEMP 36.6; O2SAT 96
[2020-08-11 07:42] VITALS: BP 142/83; PULSE 66; RESP 20; TEMP 36.9; O2SAT 96
[2020-08-11] MEDS: Budesonide/Formoterol 160/4.5 6 GM 60 PUFF INH IH ×2 (07:46→19:45)
[2020-08-11] MEDS: DULoxetine 30 MG CAP PO (08:06)
[2020-08-11] MEDS: Gabapentin 100 MG CAP 200 MG PO ×3 (08:06→19:44)
[2020-08-11] MEDS: Pantoprazole 40 MG TABCR PO ×2 (08:06→19:45)
[2020-08-11] MEDS: Ascorbic Acid 500 MG TAB PO ×2 (08:07→19:45)
[2020-08-11] MEDS: dilTIAZem 30 MG TAB PO ×3 (08:07→19:45)
[2020-08-11] MEDS: Multivitamin TAB 1 TAB PO (08:08)
[2020-08-11] MEDS: Finasteride 5 MG TAB PO (08:08)
[2020-08-11] MEDS: Ferrous Sulfate 325 MG TAB PO ×2 (08:08→19:45)
[2020-08-11] MEDS: Sucralfate 1 GM TAB PO ×4 (08:08→21:28)
[2020-08-11] MEDS: Tamsulosin 0.4 MG CAPCR 0.8 MG PO (08:08)
[2020-08-11] MEDS: Docusate Sodium 100 MG CAP PO ×2 (08:08→19:45)
[2020-08-11] MEDS: Thiamine 100 MG TAB PO (08:10)
[2020-08-11] MEDS: Magnesium Oxide 400 MG TAB PO ×2 (10:58→21:28)
--- NOTE | 2020-08-11 11:09 | PT.INTREAT ---
Date of service: 08/11/20 Time of Service: 11:09 PT Notes Visit Reasons: Weakness 08/11/2020 SUBJECTIVE: Khoi stating he is hoping to go home tomorrow. He will need a mask to go home because he can't find his. He wants to walk without his walker because he does not want to bring one home with him. OBJECTIVE: [id number] TRANSFERS Sit to stand: I Stand to sit: I GAIT Device: No device Weight bearing: Full Assist: SBA Distance: 120'x2 Deviation: 1 sit rest break ASSESSMENT: Tolerates gait well without assistive device. No LOB noted although he is very cautious. He legs fatigue before his breath becomes short. Does not complain about his breathing today. PLAN: Continue to progress gait without use of walker. Direct time: 12 minutes Yee Cordon PTA Clinic location: [facility] [place], [place]
--- NOTE | 2020-08-11 11:29 | W.NUTRFU ---
Date of service: 08/11/20 Time of Service: 11:29 Nutritional Follow up NOTE: Khoi continues on heart healthy diet with excellent intake (typically 100% of meals), weight has been stable since admit. Not at nutritional risk at this time. Time Spent in Nutritional Counseling and Treatment: 0
[2020-08-11] MEDS: Acetaminophen 500 MG TAB 1000 MG PO ×2 (13:41→21:28)
--- NOTE | 2020-08-11 14:25 | OTTR_ITS ---
Date of service: 08/11/20 Time of Service: 07:50 Occupational Therapy Notes Occupational Therapy Inpatient Treatment Note Date: 08/11/20 PRECAUTIONS: Fall, Standard, Full SUBJECTIVE: Pt was lying in bed when OT arrived. He is agreeable to OT session and notes that he is tired. OBJECTIVE: PAIN:no c.o pain FUNCTIONAL MOBILITY Rolling L/R: (I) Supine-sit: (I) Sit-supine: (I) Sit-stand: (S) Stand-sit: (S) Bed-sink: (S) Sink-bed: (S) BATHING: standing at sink Upper Body: min vc (I) face, (B) UE and abdoment Lower Body: min vc (I) jaquan area in the front, (B) LE to knees DRESSING: Upper Extremity: standing at sink min (A) with don and doffing hospital gown Lower Extremity: sitting (I) don and doffing (B) socks. ASSESSMENT/PLAN: Pt was an active participant, he was able to demonstrate increased functional activity tolerance with standing for 10 minutes and was able to perform good dynamic stanidng positions. TREATMENT CODES/TIME: 91054, 10 minutes (07:50) Viji Brown OTR/L [facility]
[2020-08-11 15:15] VITALS: BP 123/78; PULSE 70; RESP 17; TEMP 36.9; O2SAT 96
--- NOTE | 2020-08-11 16:39 | PDOC.CMPRO ---
- If Service Date Differs Date of service: 08/11/20 Time of Service: 16:39 Care Management Progress Note S/O Khoi continues to work with PT for strengthening. Today he was able to ambulate to the end of the peter without his walker. The plan is for Rufino to go home tomorrow. He admits to being nervous about it and has asked on more than one occasion for an extension. One of his biggest concerns is that his apartment is a mess. It is dirty and covered with trash, cigarette butts and empty bottles of alcohol according to his landlord and even Rufino himself. He has been asking for someone to clean it. Today CM was able to speak to Mikierebeca RamiresMeka from [facility] who is his landlord. With Rufino's permission, Mikie hired a haz-mat cleaning crew to come in and clean and disinfect Rufino's apartment. He will be billed for it, which Rufino agreed to. Mikie is also working on getting Rufino rent forgiveness for June through August to help offset the cost. Rufino expressed gratitude for the considerations that Mikie is affording him. Rufino has been battling substance abuse with alcohol for many years. He has been noncompliant with plans and recommendations and rarely follows up with scheduled appointments. He will have home health nursing, PT,OT and SWIMMING INSTRUCTOR ordered at discharge. A referral for case management and support services has been sent to [place] [facility] and a follow up visit with Desirae Panda NP at [facility] has been scheduled. Rufino has promised that Zthis time it will be different and has verbalized a desire to sustain his current improved health. P: Rufino will be discharged home with new HH services for RN,OT,PT and SWIMMING INSTRUCTOR. He will follow up with his new provider and discharge plan of care. Rufino will transport via private taxi.
[2020-08-11] MEDS: Melatonin 3 MG TAB 9 MG PO (21:28)
[2020-08-11 22:56] VITALS: BP 110/60; PULSE 73; RESP 17; TEMP 36.7; O2SAT 96
[2020-08-12] MEDS: Gabapentin 100 MG CAP 200 MG PO ×2 (07:39→13:41)
[2020-08-12] MEDS: Pantoprazole 40 MG TABCR PO (07:39)
[2020-08-12] MEDS: Thiamine 100 MG TAB PO (07:40)
[2020-08-12] MEDS: dilTIAZem 30 MG TAB PO ×2 (07:40→13:41)
[2020-08-12] MEDS: Ascorbic Acid 500 MG TAB PO (07:40)
[2020-08-12] MEDS: Finasteride 5 MG TAB PO (07:40)
[2020-08-12] MEDS: Multivitamin TAB 1 TAB PO (07:40)
[2020-08-12] MEDS: Docusate Sodium 100 MG CAP PO (07:40)
[2020-08-12] MEDS: DULoxetine 30 MG CAP PO (07:40)
[2020-08-12] MEDS: Ferrous Sulfate 325 MG TAB PO (07:41)
[2020-08-12] MEDS: Tamsulosin 0.4 MG CAPCR 0.8 MG PO (07:41)
[2020-08-12] MEDS: Sucralfate 1 GM TAB PO ×2 (07:41→10:52)
[2020-08-12 07:45] VITALS: BP 148/83; PULSE 75; RESP 16; TEMP 36.6; O2SAT 96
[2020-08-12] MEDS: Budesonide/Formoterol 160/4.5 6 GM 60 PUFF INH IH (07:59)
--- NOTE | 2020-08-12 09:41 | OT.INTREAT ---
Date of service: 08/12/20 Time of Service: 09:25 Occupational Therapy Notes Occupational Therapy Inpatient Treatment Note Date: 08/12/20 PRECAUTIONS: Fall, Standard, Full SUBJECTIVE: Pt was lying in bed when OT arrived. He notes that he is leaving today and that makes him sad. OBJECTIVE: PAIN:no c/o pain Self Care training [id number]: OT educated and trained pt in energy conservation techniques, performance of ADLs with a routine and performance of community related activities. OT and pt discussed his functional activity tolerance and his ability to perform them in the home setting. ASSESSMENT/PLAN: Pt is an active participant and receptive to education provided to him. He states that he is leaving. TREATMENT CODES/TIME: 96907, 10 minutes (09:25) CESIA Becker/[facility]
[2020-08-12] MEDS: Magnesium Oxide 400 MG TAB PO (10:52)
[2020-08-12 11:10] VITALS: BP 140/90; PULSE 73; RESP 16; TEMP 36.8; O2SAT 96
--- NOTE | 2020-08-12 12:39 | CMDISCH_ITS ---
- If Service Date Differs Date of service: 08/12/20 Time of Service: 12:39 LACE Index Scoring Tool - Questions: Length of Stay (in days): 7 - 13 Acuity (Admit via E.D.?): Yes Comorbidities: Chronic Pulmonary Disease E.D. Visits: 2 - Answers: Total Score: 12 Risk of Readmission: High Risk Care Management Discharge Reason for Hospitalization: GI Bleed Discharge Plan: Rufino will be discharged home with new services for RN,OT,PT and TUBE MOUNTER. He will follow up with his new provider and discharge plan of care. Rufino will transport via private taxi. Patient/Family Education Needs: Discharge plan, limitations, follow up plan, As k Me Three Services Needed at Discharge: Home Health Care Services
[2020-08-12] MEDS: Acetaminophen 500 MG TAB 1000 MG PO (13:41)
--- NOTE | 2020-08-12 14:05 | DSE_ITS ---
Date of service: 08/12/20 Time of Service: 14:05 DS: Diagnosis Discharge Diagnosis (1) Weakness: Start date: 08/12/20 Start time: 14:06 Status: Acute Asessment and Plan: Discharge home with PT/OT RN [employer] to continue at home. He is stronger and able to move around without difficulty (2) GI bleed: Start date: 08/12/20 Start time: 14:06 Status: Chronic Asessment and Plan: Chronic from alcohol use. Discussed abstaining from drinking Continue PPI BID, continue carafate (3) UTI (urinary tract infection): Start date: 08/12/20 Start time: 14:07 Status: Resolved Asessment and Plan: Received treatment (4) Urinary retention: Start date: 08/12/20 Start time: 14:07 Status: Chronic Asessment and Plan: Improved with flomax, continue to follow up with Dr. Ramos as needed (5) Tobacco abuse disorder: Start date: 08/12/20 Start time: 14:08 Status: Chronic Asessment and Plan: States I am going home to smoke, he is not ready to consider quitting at this time. (6) COPD (chronic obstructive pulmonary disease): Start date: 08/12/20 Start time: 14:08 Status: Chronic Asessment and Plan: Not exacerbated (7) Atrial fibrillation: Start date: 08/12/20 Start time: 14:08 Status: Acute Asessment and Plan: SR at this time, stopped anticoagulation due to GI bleed, continue to monitor. (8) Alcohol use disorder: Start date: 08/12/20 Start time: 14:09 Status: Chronic Asessment and Plan: States he will not drink when he gets home (9) Anemia: Start date: 08/12/20 Start time: 14:09 Status: Chronic Asessment and Plan: In setting of chronic alcohol use. Continue medications above case discussed with Dr. Hinton who is in agreement. Discharge Plan Disposition Patient Disposition: HOME W/HOME HEALTH SERVICE Condition: Good Discharge Details Reason For Visit: WEAKNESS Admit Date/Time: 08/06/20 11:57 Admit Provider: Oswald Hayden Attending Provider: Oswald Hayden Primary Care Provider: Antonio Flood Hospital Course Hospital Course: 75 y.o male with PMH tobacco and ETOH use, afib, presented to [facility] with anxiety and SOB. Labs revealed anemia with normal WBC, elevated creatinine. He was given PPI and 1 unit PRBC. He did have positive stool guaiac and was admitted to [facility] for further management. Over course of hospitalization he received 2 units PRBC. He had upper endoscopy and was placed on PPI BID with Carafate. H/H stabilized. He was found to have urinary retention with UTI. Dr. Ramos consulted. He was able to void on his own after removal of catheter. He can be followed as an outpatient. He is being discharged home with PT/OT, [employer]CHOR and nursing services. He denies CP, SOB. N/V/D. Home Meds and New Rx's Prescriptions: New tamsulosin 0.4 mg Capsule 0.8 mg PO DAILY Qty: 30 RF: 0 pantoprazole 40 mg Tablet,Delayed Release (Dr/Ec) 40 mg PO BID@0730,2000 Qty: 60 RF: 0 finasteride 5 mg Tablet 5 mg PO DAILY Qty: 30 RF: 0 Continued ipratropium-albuterol 0.5 mg-3 mg(2.5 mg base)/3 mL Solution For Nebulization 3 ml UPD Q6H PRN PRN (Reason: shortness of breath or wheezing) Qty: 180 RF: 0 acetaminophen [Mapap Extra Strength] 500 mg Tablet 1,000 mg PO Q8H Qty: 90 RF: 0 ascorbic acid (vitamin C) [Vitamin C] 500 mg Tablet 500 mg PO BID Qty: 60 RF: 0 cyclobenzaprine 10 mg Tablet 10 mg PO TID Qty: 90 RF: 0 sucralfate 1 gram Tablet 1 g PO AC & HS Qty: 120 RF: 0 magnesium oxide 400 mg (241.3 mg magnesium) Tablet 400 mg PO BID@1000,2200 Qty: 60 RF: 0 ferrous sulfate 325 mg (65 mg iron) Tablet 325 mg PO BID Qty: 60 RF: 0 docusate sodium [Colace] 100 mg Capsule 100 mg PO BID Qty: 60 RF: 0 gabapentin 100 mg Capsule 200 mg PO TID Qty: 180 RF: 0 diltiazem HCl [Cardizem] 30 mg Tablet 30 mg PO TID Qty: 90 RF: 0 duloxetine [Cymbalta] 30 mg Capsule,Delayed Release(Dr/Ec) 30 mg PO DAILY Qty: 30 RF: 0 multivitamin [Multiple Vitamins] Tablet 1 tab PO DAILY Qty: 30 RF: 0 Nicotrol 10 mg Cartridge 30 cartridge inhalation DIRECTED PRNQty: 10 RF: 0 cyanocobalamin (vitamin B-12) [Vitamin B-12] 500 mcg Tablet 1,000 mcg PO DAILY Qty: 60 RF: 0 melatonin 3 mg Tablet Extended Release 3 - 6 mg PO HS PRN PRN (Reason: Insomnia) Qty: 60 RF: 0 budesonide-formoterol [Symbicort] 160-4.5 mcg/actuation Hfa Aerosol Inhaler 2 puff inhalation BID Qty: 10.2 RF: 0 thiamine mononitrate (vit B1) [Vitamin B-1 (mononitrate)] 100 mg Tablet 100 mg PO DAILY Qty: 30 RF: 0 tamsulosin 0.4 mg Capsule 0.8 mg PO DAILY Qty: 15 RF: 0 pantoprazole 40 mg Tablet,Delayed Release (Dr/Ec) 40 mg PO BID@729,1999 Qty: 20 RF: 0 finasteride 5 mg Tablet 5 mg PO DAILY Qty: 15 RF: 0 Discontinued ampicillin 500 mg Capsule 500 mg PO QID Qty: 8 RF: 0 Discharge Instructions Instructions: Urinary Retention in Men (GEN), Abuse of Alcohol (DC), Weakness (DC) Additional Instructions: Follow up with Dr. Ramos as an outpatient. Follow up with PCP on 08/17/2020 at 1030 am Referrals: Desirae Panda EQUIPMENT OPERATOR/LABORER [NURSE PRACTITIONER] - 08/17/20 10:30 am Activity:: Activity as Tolerated Equipment/Supplies:: No Equipment Needed Diet:: Low Sodium Discharge Orders Discharge Orders: Discharge Order (Routine); Ordered 08/12/20 Ordered By: Desirae Kulkarni DS: Summary Status at Discharge Functional status at discharge: uses cane/walker Overall status at discharge: patient is progressing back to baseline Mental Status: mental status grossly normal Speech and Movement: speech and movement normal Mood: congruent mood Affect: normal affect Exam Const General: cooperative, no acute distress, frail appearing and ill appearing chronically Nutritional Appearance: obese Orientation: alert, awake and oriented x3 Eyes Conjunctivae: conjunctivae normal Pupils: PERRL EOM: EOM intact bilaterally Neck Neck: normal visual inspection and full ROM Thyroid: thyroid normal Lymphatic: no lymphadenopathy noted and no lymphedema noted Resp Effort & Inspection: normal respiratory effort Auscultation: clear to auscultation bilaterally Cardio Jugular venous pressure: no JVD Rate: regular rate Rhythm: regular rhythm Heart Sounds: S1 normal and S2 normal GI Inspection: normal to inspection Auscultation: normal bowel sounds Back/Spine/Pelvis Back: no CVA tenderness Thoracic/Lumbar Spine: thoracic and lumbar spine normal to inspection Skin General skin exam: other (abrasions to lower extremity improving in appearance) Neuro General: patient alert, patient awake and patient oriented x3 Cognition: normal cognition Speech: speech normal Extrem General: normal to inspection and no clubbing, cyanosis or edema Psych Mental Status: mental status grossly normal Speech and Movement: speech and movement normal Mood: congruent mood Affect: normal affect DS: Data Vitals/I&O Vitals and I&O: Vital Signs Temperature 36.8 C 08/12/20 11:10 Temperature Source Tympanic 08/12/20 11:10 Pulse 73 08/12/20 11:10 Pulse Rhythm Regular 08/12/20 04:02 Respiratory Rate 16 08/12/20 11:10 Respiratory Effort Non-Labored 08/12/20 04:02 Respiratory Depth Normal 08/12/20 04:02 Respiratory Pattern Normal 08/12/20 04:02 Blood Pressure 140/90 08/12/20 11:10 Pulse Oximetry 96 08/12/20 11:10 Oxygen Delivery Method Room Air 08/12/20 07:45 Oxygen Flow Rate 0 08/12/20 07:45 Pain Level 0 08/12/20 11:10 Comment 08/12/20 11:07 Intake & Output 08/11/20 08/12/20 08/12/20 23:59 11:59 23:59 Intake Total 480 / 660 240 / 480 240 / 480 Balance 480 / 660 240 / 480 240 / 480 Intake: Oral 480 / 660 240 / 480 240 / 480 Other: Urine Color Yellow Urine Appearance Clear Clear Urine Odor None Comment Patient reports normal voiding in toilet independently in room. Voiding Methods Toilet [facility] Medical History Alcohol use disorder Atrial fibrillation Cooper's esophagus COPD (chronic obstructive pulmonary disease) Depression Failure to thrive Hematemesis Insomnia Radicular pain of right lower extremity Renal insufficiency Right knee pain Smoking hx UTI (urinary tract infection) Surgical History H/O esophagogastroduodenoscopy (~04/2019) Social History Smoking/Tobacco Use Status: Current every day Tobacco Type: cigarettes Years smoked: 50 Smoking risk assessment performed?: Yes Alcohol Intake: current Alcohol Intake frequency: 3 or more drinks per day Drug use: Never Substance use type: does not use Do you feel safe at home: Yes Do you feel safe in your relationship?: Yes Additional Social history: Lives alone in apartment in [facility] for past ~6 years, closest family brother Owen in [place], [place] 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
--- NOTE | 2020-08-12 14:17 | PDOC.HHF2F_ITS ---
Home Health Certification Home Health Certification: 1. Encounter Date and Reason I certify that NILSA BAUGH was seen by Desirae Kulkarni on 08/12/20 and that I had a [id number] encounter with this patient that meets the physician face to face encounter requirements. 2. Clinical Findings Supporting Skilled Need and Homebound Status I certify that home health services are medically necessary, include either intermittent correction and/or physical/speech therapy, and that this pa tient is homebound in that absences from the home require considerable and taxing effort and are infrequent or of short duration, or are attributable to the need to receive medical care. [X] (a) Attached documentation from encounter provides clinical findings supporting skilled need and homebound status (including what assistance patient requires to leave the home). The encounter with the patient was in whole, or in part, for the following medical condition, which is the primary reason for home health care: WEAKNESS [facility]: Patient would benefit from nursing services to help with medication administration, abrasions, etc. Physical Therapy: Patient would benefit from PT/OT for further stability and gait imbalances Patient would benefit from APARTMENT MAINTENANCE for resources in the community Homebound: Unable to leave home without assistance 3. Certification and Authentication I certify that I composed the above information based on my clinical judgement relating to this patient's medical condition and, if applicable, clinical findings communicated to me by the NPP or inpatient physician who performed the Home Health Referral. All further orders will be obtained through Desirae Everett___(Community Based Physician - PCP)
--- NOTE | 2020-08-15 07:00 | OTDS_ITS ---
Date of service: 08/15/20 Time of Service: 07:00 Occupational Therapy Notes Occupational Therapy Inpatient Discharge Summary Date: 08/15/20 Dates of Service: 08/08/20-08/12/20 Referring Doctor: Desirae Kulkarni NP OT Orders: Non-Urgent Precautions: Standard, Full *This document serves as a summary of care, no skilled OT services provided for this documentation* PATIENT PROFILE/ADMITTING DIAGNOSIS: Pt is a 75 year old male who is currently admitted to [facility] on Med Surg tobacco disorder, failure to thrive, hypomagnesemia, COPD, SAUL, alcohol use diorser, GI bless, Anemia. He was recently transitioned to [facility] rehabilitation status and is seen for evaluation today. Past Medical History: Medical History (Updated 07/30/20 @ 14:15 by Rose Wagoner NP) Alcohol use disorder Atrial fibrillation Cooper's esophagus COPD (chronic obstructive pulmonary disease) Depression Failure to thrive Hematemesis Insomnia Radicular pain of right lower extremity Renal insufficiency Right knee pain Smoking hx UTI (urinary tract infection) Surgical History H/O esophagogastroduodenoscopy (~04/2019) Social History/Home Situation: Pt lives alone.He reports that he is (I) with all ADLs/IADLs but when he drinks he struggles with his performance in this. He notes that he has a tub/shower combination which he is unable to transfer in to and states that he has not performed his bathing in weeks- months. 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 He does not socialize on a regular basis and reports depressions. He states that eats [employer] every night and this is becoming an increased expense to him. 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 FUNCTIONAL MOBILITY/ADLS: Transfers without assistive device Sit-Stand (S) Stand-sit (S) BATHING- standing at sink with min vc pt was (I) with UE/LE DRESSING Dressing UE Sitting on side of the bed (I) min vc with donning hospital gown Dressing LE Sitting on side of bed pt is able to (I) don and doff his (B) socks GROOMING Sitting pt is able to (I) brush his own hair, standing at sink pt was (I) with brushing his teeth TOILETING on toilet (I) EATING sitting on side of the bed(I) BALANCE: Static sitting Normal Dynamic Sitting Normal Static Standing Normal Dynamic Standing Good ASSESSMENT: Patient is a 75-year-old male referred to occupational therapy services with diagnosis of tobacco disorder, failure to thrive, hypomagnesemia, COPD, SAUL, alcohol use diorser, GI bless, Anemia. Pt was seen for skilled OT sessions under [facility] rehabilitation status. He refused services multiple times throughout these sessions, however when agreeable he was able to demonstrate with increased (I). Pt was discharged home on 08/12/20 and will be discharged from skilled OT services at this time. GOALS- Met 1. Dressing- sitting on side of the bed (I) with don and doffing (B) socks and pants 2. Bathing- standing at sink, pt will be able to wash his (B) LE/LE 3. Toileting- (I) on toilet 4. Grooming- Standing at sink pt will be (I) with brushing his teeth PLAN OF CARE/TREATMENT PLAN: Discharge from skilled OT services. Pt was discharged home on 08/12/20. DISCHARGE RECOMMENDATIONS- Based on initial evaluation and assessment of pts functional abilities, OT feels that pt may benefit from SNF vs. home with services. TREATMENT TIME/MINUTES/CODES N/A Viji Brown OTR/L [facility]
--- NOTE | 2020-08-16 08:58 | INDS_ITS ---
Date of service: 08/16/20 Time of Service: 08:58 PT Notes Visit Reasons: Weakness Physical Therapy Inpatient Discharge Summary Date: 08/16/20 Date of service: 08/07/2020 through 08/12/2020 This is a clinical summary of care provided on the duration of dates listed above. No charge was made in the completion of this documentation. Referring Doctor: Desirae Kulkarni PT Orders: Eval/treat Precautions: Fall. Standard. WBAT. Patient Profile/Admitting Diagnosis: Khoi is a 75-year-old male with a past medical history significant for alcohol abuse and COPD who presented to the ED on 07/30/2019 with chief complaints of shortness of breath and generalized weakness. He is diagnosed with GI bleed, acute kidney injury, chronic obstructive pulmonary disease, EtOH use disorder, hypomagnesemia, failure to thrive, and tobacco abuse. He transitioned to swing bed on 08/06/20. PMHX: Medical History Alcohol use disorder Atrial fibrillation Cooper's esophagus COPD (chronic obstructive pulmonary disease) Depression Failure to thrive Hematemesis Insomnia Radicular pain of right lower extremity Renal insufficiency Right knee pain Smoking hx UTI (urinary tract infection) Surgical History H/O esophagogastroduodenoscopy (~04/2019) Social History/Home Situation: Patient lives alone in an apartment with 15 steps to get in with a rail on the right going up. He was independent with all aspects of ADLs without the need for an assistive ambulatory device nor adaptive equipment although he stated that recently it has been very difficult to do so due to weakness and uncontrolled alcoholism. Equipment Owned/DME: None but will need a FWW. SUBJECTIVE: NT. See most recent [facility] notes. OBJECTIVE: General Observation: NT. See most recent [facility] notes. Mental Status: NT. See most recent [facility] notes. Pain: NT. See most recent [facility] notes. ROM: Right Upper Extremity: Shoulder Flexion WFL. Shoulder abduction WFL. Elbow flexion WFL. Wrist flexion WFL. Functional opening and closing of hand WFL. Left Upper Extremity: Shoulder Flexion WFL. Shoulder abduction WFL. Elbow flexion WFL. Wrist flexion WFL. Functional opening and closing of hand WFL. Right Lower Extremity: Hip flexion WFL. Hip abduction WFL. Knee flexion WFL. Ankle dorsiflexion WFL. Ankle plantarflexion WFL. Left Lower Extremity: Hip flexion WFL. Hip abduction WFL. Knee flexion WFL. Ankle dorsiflexion WFL. Ankle plantarflexion WFL. Strength: Right Upper Extremity: Shoulder flexors 4/5. Shoulder abductors 4/5. Elbow flexors 4/5. Elbow extensors 4/5. Data Conversion Analyst strong. Left Upper Extremity: Shoulder flexors 4/5. Shoulder abductors 4/5. Elbow flexors 4/5. Elbow extensors 4/5. Data Conversion Analyst strong. Right Lower Extremity: Hip flexors 4+/5. Hip abductors 4+/5. Knee flexors 4+/5. Knee extensors 4+/5. Ankle dorsiflexors 4+/5. Ankle plantarflexors 4/5. Left Lower Extremity: Hip flexors 4+/5. Hip abductors 4+/5. Knee flexors 4+/5. Knee extensors 4+/5. Ankle dorsiflexors 4+/5. Ankle plantarflexors 4/5. SENSATION: Intact as to pain and pressure on bilateral lower extremities BED MOBILITY/TRANSFERS: Supine to sit Independent Sit to supine Independent Sit to stand independent Stand to sit independent GAIT: 120 to 220' without AD. BALANCE: Static sitting Normal Dynamic Sitting Normal Static Standing Fair Dynamic Standing Fair ASSESSMENT: Khoi demonstrates significant functional mobility improvement and is has reached his baseline mobility level during this episode of care as evidenced by goal status below. All all I need to get patient is a 75 year old male referred to physical therapy services with a past medical history significant for alcohol abuse and COPD who presented to the ED on 07/30/2019 with chief complaints of shortness of breath and generalized weakness. He is diagnosed with GI bleed, acute kidney injury, chronic obstructive pulmonary disease, EtOH use disorder, hypomagnesemia, failure to thrive, and tobacco abuse. He transitioned to swing bed on 08/06/20. Goals: Goals X1 week 1. Supine-Sit independent MET 2. Sit-Supine independent MET 3. Sit-Stand independent MET 4. Stand-Sit independent MET 5. Bed-Chair independent MET 6. Chair-Bed independent MET 7. Independent gait on level surface with use of least restrictive device for at least 300 feet without report of pain nor dyspnea MET 8. Independent stair negotiation while holding onto bilateral rails for at least 10 steps without report of pain nor dyspnea MET 9. Independent with home exercise program MET 10. Good static and dynamic standing balance/tolerance MET DISCHARGE RECOMMENDATIONS: Patient will benefit from jail facility placement in order to progress mobility level, strength, and balance in preparation for a safe discharge to home. TREATMENT CODE/TIME: NC. Thank you for the opportunity to participate in the care of this patient. Franchesca Hawley PT, DPT, CLT [facility] [place], [place]
== END 2020-08-12 15:56 | disposition home health service (06) | DRG 378 ==
PROVIDERS: Admitting Provider Internal Medicine; PCP Family Medicine; Visit Provider Internal Medicine
DX: K29.21 Alcoholic gastritis with bleeding (principal); N39.0 Urinary tract infection, site not specified; R53.1 Weakness; K92.2 Gastrointestinal hemorrhage, unspecified; R33.9 Retention of urine, unspecified; F17.210 Nicotine dependence, cigarettes, uncomplicated; J44.9 Chronic obstructive pulmonary disease, unspecified; I48.91 Unspecified atrial fibrillation; F10.10 Alcohol abuse, uncomplicated; R31.9 Hematuria, unspecified; D50.0 Iron deficiency anemia secondary to blood loss (chronic); K22.70 Barrett's esophagus without dysplasia; F32.9 Major depressive disorder, single episode, unspecified; G47.00 Insomnia, unspecified; M54.10 Radiculopathy, site unspecified
CPT/HCPCS: 94640; 97110; 97162; 97165; 97530; 97535; 99220; 99306; 99316

== ENCOUNTER 2020-10-25 09:40 | Emergency (ER) | payer MEDICARE, MEDICAID, SELFPAY ==
[2020-10-25] VITALS (58 sets, daily range): BP systolic 123–161; BP diastolic 59–113; PULSE 57–140; RESP 9–25; TEMP 36.4; O2SAT 96–100
--- NOTE | 2020-10-25 09:30 | RT.EKG_ITS ---
APPROVED REPORT Exam: Resting ECG Patient Location: E HR:125 bpm ECG Measurements Heart Rate 125 AXIS LA 150 P -58 QRSd 81 QRS 55 QT 340 T 74 QTc 491 Conclusion Sinus tachycardia with irregular rate...V-rate 81-161, variation>10% Sinus tachy with PACs No acute ST changes
--- NOTE | 2020-10-25 09:57 | ED.GENADUL_ITS ---
Discharge Plan Disposition Patient Disposition: [facility] Condition: Serious Discharge Details Clinical Impression: Non-ST elevation (NSTEMI) myocardial infarction, GI bleed Primary Care Provider: Desirae Panda ED Provider: Barbara Gastelum Home Meds and New Rx's Prescriptions: No Action budesonide-formoterol [Symbicort] 160-4.5 mcg/actuation HFA aerosol inhaler 2 puff inhalation BID Qty: 10.2 RF: 11 pantoprazole 40 mg tablet,delayed release (DR/EC) 40 mg PO BID Qty: 60 RF: 0 melatonin 3 mg tablet extended release 3 mg PO HS PRN (Reason: Insomnia) Qty: 90 RF: 3 tamsulosin 0.4 mg capsule 0.8 mg PO DAILY Qty: 60 RF: 12 finasteride 5 mg tablet 5 mg PO DAILY Qty: 30 RF: 12 diltiazem HCl [Cardizem] 30 mg Tablet 30 mg PO TID Qty: 90 RF: 0 cyanocobalamin (vitamin B-12) [Vitamin B-12] 500 mcg Tablet 1,000 mcg PO DAILY Qty: 60 RF: 0 thiamine mononitrate (vit B1) [Vitamin B-1 (mononitrate)] 100 mg Tablet 100 mg PO DAILY Qty: 30 RF: 0 Medical Decision Making 75 year old male presents via EMS after vomiting bright red blood since , last episode on Saturday. Has kept fluids down for last 2 days. However he feels weak, dizzy, decreased appetitie, and has not had any alcohol x 7 days. Was drinking 1/3 of whiskey daily for last month. Patient denies any abdominal pain or chest pain. He does state that when he swallows water he does have some epigastric tenderness which is slowly getting better. He denies having any diarrhea last bowel movement was yesterday which s dark or tarry. He reports was small, he did not look at it so unknown if it is black or tarry. Upon initial exam he is very disheveled, still has EKG leads from visit in July. He does live alone. He is alert and oriented x4. He does have a past medical history of atrial fibrillation, Cooper's esophagus, alcohol use disorder, COPD, anemia, and depression. Work-up ordered including CBC, CMP, troponin x2, magnesium, EKG, alcohol level, type and screen, PT and INR. EKG was reviewed by Dr. Jose Eduardo Lundberg MD ER attending, please see his official reading and review. CBC shows mild hypochromic normocytic anemia hemoglobin 10.0, hematocrit 33.2, platelets are 270, sodium is 133, chloride 94 anion gap is 15.2, BUN 46, creatinine 1.68 GFR is 40.14. Patient does have a history of renal insufficiency. Glucose is 123 alcohol is less than 3.0. Previous BUN and creatinine was 24 and 1.38 with a GFR of 62 results from September 14. 1048: Critical troponin level received at 1.11, Call made to our in-house Sales Merchand[employer] Specialist Dr. Josue. 1053: Patient is not currently having any chest pain, Heart score 6. 1104:JANEE performed, Guaic positive stool. Protonix 80 mg IVP ordered, CXR ordered. EXAM: XR CHEST 2V PA LATERAL CLINICAL HISTORY: Weakness TECHNIQUE: 2D digital imaging was performed. COMPARISON: No exams were available for comparison FINDINGS: The heart size is normal. Leads overlie the chest. PA view is rotated. The lungs appear clear. IMPRESSION: No acute pulmonary findings. 1203: Spoke with Dr. Josue with cardiology who recommends discussion for transfer with [facility], he does not recommend any further coagulation at this time, will page [facility] cardiology. 1205: [facility] transfer center contacted regarding pt. 1225: Spoke with Isamar Rothman with [facility] cardiology, she will call back after speaking with her team. 1321: Repeat Trop 1.03, decreased slightly from previous result, repeat EKG done, no significant change. 1332: Patient sleeping breathing eupneic. 1344: Spoke again with Isamar Rothman [employer] with [facility] who recommends ECHO and nuclear stress test after continued serial troponins, she does not recommend heparin at this time. I will speak with hospitalist. 1356: Spoke with Dr. Arnold, who will consult with Dr. Josue and call me back. 1409: Spoke again with [facility] who recommends patient be a tertiary facility, patient not a candidtate for EGD or colonoscopy at this time at this facility due to cardiac situation. Will re-discuss with [facility] . 1430: Spoke again with Isamar Rothman [employer], she agrees to accept patient for transfer, Accepting physician Swetha, patient accepted at [facility]. Patient informed on plan of care and verbalizes consent for transfer. 1500: Patient given food tray. 1525: EMS here for transport. HPI General Mode of arrival: EMS . Date/Time Provider Initiated Documentation: 10/25/20 09:53 . Limitations to Documentation: no limitations . Information obtained by: patient, RN/MD and EMS . HPI Narrative: 75 year old male presents via EMS after vomiting bright red blood since , last episode on Saturday. Has kept fluids down for last 2 days. However he feels weak, dizzy, decreased appetitie, and has not had any alcohol x 7 days. Was drinking 1/3 of whiskey daily for last month. Patient denies any abdominal pain or chest pain. He does state that when he swallows water he does have some epigastric tenderness which is slowly getting better. He denies having any diarrhea last bowel movement was yesterday which s dark or tarry. He reports was small, he did not look at it so unknown if it is black or tarry. Upon initial exam he is very disheveled, still has EKG leads from visit in July. He does live alone. He is alert and oriented x4. He does have a past medical history of atrial fibrillation, Cooper's esophagus, alcohol use disorder, COPD, anemia, and depression. Related Data Home Medications Medication Instructions Recorded Confirmed cyanocobalamin (vitamin B-12) 1,000 mcg PO DAILY #60 tab 08/30/19 10/25/20 [Vitamin B-12] diltiazem HCl [Cardizem] 30 mg PO TID #90 tab 08/30/19 10/25/20 thiamine mononitrate (vit B1) 100 mg PO DAILY #30 tab 08/30/19 10/25/20 [Vitamin B-1 (mononitrate)] finasteride 5 mg tablet 5 mg PO DAILY #30 tab 08/23/20 10/25/20 tamsulosin 0.4 mg capsule 0.8 mg PO DAILY #60 cap 08/23/20 10/25/20 budesonide-formoterol HFA 160 2 puff INHALATION BID #10.2 gm 09/02/20 10/25/20 mcg-4.5 mcg/actuation aerosol inhaler melatonin 3 mg tablet,extended 3 mg PO HS PRN #90 tab 09/02/20 10/25/20 release pantoprazole 40 mg tablet,delayed 40 mg PO BID #60 tab 09/02/20 10/25/20 release Previous Rx's Medication Instructions Recorded cyanocobalamin (vitamin B-12) 1,000 mcg PO DAILY #60 tab 08/30/19 [Vitamin B-12] diltiazem HCl [Cardizem] 30 mg PO TID #90 tab 08/30/19 thiamine mononitrate (vit B1) 100 mg PO DAILY #30 tab 08/30/19 [Vitamin B-1 (mononitrate)] finasteride 5 mg tablet 5 mg PO DAILY #30 tab 08/23/20 tamsulosin 0.4 mg capsule 0.8 mg PO DAILY #60 cap 08/23/20 budesonide-formoterol HFA 160 2 puff INHALATION BID #10.2 gm 09/02/20 mcg-4.5 mcg/actuation aerosol inhaler melatonin 3 mg tablet,extended 3 mg PO HS PRN #90 tab 09/02/20 release pantoprazole 40 mg tablet,delayed 40 mg PO BID #60 tab 09/02/20 release Allergies Allergy/AdvReac Type Severity Reaction Status Date / Time bupropion AdvReac Severe seizures Verified 10/25/20 09:53 General Stated Complaint: GenMedical JENNA: 3 Review of Systems Narrative: Constitutional: alert and oriented, disheveled, dirty, deconditioned body habitus. HEENT: Denies trauma, headaches, blurry vision, nasal discharge, sore throat, has epigastric pain with swallowing Chest: Denies chest pain, palpitations, irregular rhythm, hypertension. Respiratory: Denies Shortness of breath, cough, hemoptysis. GI: Denies abdominal pain, diarrhea, positive nausea vomiting and epigastric pain. : Denies dysuria, hematuria, flank pain, rectal bleeding. Neuro: Denies blurry vision, syncope, headache or facial numbness. Positive weakness generalized. No focal neuro deficits. Hematologic: Denies , intolerance to heat or cold, hair loss. [facility] Medical History Alcohol use disorder Atrial fibrillation Paroxysmal per hospital records; not anticoagulated secondary to recurrent GI bleeds from chronic EtOH use Cooper's esophagus COPD (chronic obstructive pulmonary disease) Depression Hematemesis Insomnia Radicular pain of right lower extremity Renal insufficiency Right knee pain Smoking hx UTI (urinary tract infection) Surgical History H/O esophagogastroduodenoscopy (~04/2019) Social History Smoking/Tobacco Use Status: Current every day Tobacco Type: cigarettes Years smoked: 50 Smoking risk assessment performed?: Yes Alcohol Intake: current Alcohol Intake frequency: 3 or more drinks per day Drug use: Never Substance use type: does not use Do you need help understanding health information?: Rarely 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 Appears stated age. Deconditioned body habitus. Disheveled, dirty. Head: Normocephalic, no trauma. Eyes: Pupils PERRLA, Red reflex noted, EOM's intact. Eyelids symmetrical without lesions, discharge, or swelling. ENT: Bilateral TM's WNL, External ear normal to inspection, no mastoid TTP, swelling, or erythema, Nasal turbinates WNL, no nasal discharge. Normal dentition, Posterior pharynx WNL, no exudate. Dry mucous membranes. Chest: Irregular, tachycardic at 129, Normal S1, S2, distal pulses intact. Resp: Lungs clear to auscultation bilaterally, no wheezes, rales, or rhonchi. Abdomen: Soft, nontender to palpation all 4 quadrants. Musculoskeletal: Appears deconditioned Skin: Appears mildly jaundice to the upper chest and face, capillary refill less than 2 sec. Neurologic: Cranial nerves II-XII intact. Alert and oriented x 3. DTR's intact. No focal neuro deficits noted. Hematologic/Lymphatic: No ecchymosis, no lymphadenopathy. Course Vital Signs Vital signs: Vital Signs Temperature 36.4 C L 10/25/20 09:43 Pulse 140 H 10/25/20 09:43 Respiratory Rate 22 10/25/20 09:43 Blood Pressure 131/97 H 10/25/20 09:43 Pulse Oximetry 100 10/25/20 09:43 Temperature 36.4 C L 10/25/20 09:43 Temperature Source Skin 10/25/20 09:43 Pulse 140 H 10/25/20 09:43 Respiratory Rate 22 10/25/20 09:43 Respiratory Effort Non-Labored 10/25/20 09:53 Blood Pressure 131/97 H 10/25/20 09:43 Blood Pressure Position Sitting 10/25/20 09:43 Pulse Oximetry 100 10/25/20 09:43 Oxygen Delivery Method Room Air 10/25/20 09:43 Oxygen Flow Rate 0 10/25/20 09:43 Pain Level 0 10/25/20 09:43 Procedures Stool Hemoccult Procedural Steps Taken: stool placed in appropriate test area, developer placed on stool and control areas and controls appropriately positive and negative Hemoccult result: positive
[2020-10-25] MEDS: Normal Saline 1,000 ML 1000 ML IV (10:04)
[2020-10-25 10:23] LABS: Abs Immature Grans 0.16 10^3/uL (0.0-0.06); Absolute Basophil Count 0.09 10^3/uL (0.0-0.2); Absolute Eosinophil Count 0.07 10^3/uL (0.0-0.7); Absolute Lymphocyte Count 1.79 10^3/uL (1.2-3.4); Absolute Monocyte Count 1.04 10^3/uL (0.1-0.8); Eosinophils % 0.8; HCT 33.2 % (40.0-50.0); Immature Grans % 1.8; Lymphocytes % 19.8; MCH 24.2 pg (27.0-33.0); MCHC 30.1 % (32.0-36.0); MCV 80.2 fL (80-95); MPV 9.6 fL (8.0-11.0); Monocytes % 11.5; Neutrophils % 65.1; Nucleated RBC 0 %; Platelet Count 270 10^3/uL (130-400); RBC 4.14 10^6/uL (4.36-5.78); RDW 18.6 % (11.8-14.1); RDW-SD 53.3 fL; WBC 9.05 10^3/uL (4.4-10.8)
[2020-10-25 10:34] LABS: Prothrombin Time 9.6 sec (9.3-11.0)
[2020-10-25 10:41] LABS: ALT 31 U/L (16-63); AST 44 U/L (15-37); Alkaline Phosphatase 67 U/L (46-116); Anion Gap 15.2 mmol/L (3-11); BUN 46 mg/dL (7-18); Bilirubin, Total 0.9 mg/dL (0.2-1.0); CO2 23.8 mmol/L (21.0-32.0); CREATININE 1.68 mg/dL (0.70-1.30); Calcium 9.2 mg/dL (8.5-10.1); Chloride 94 mmol/L (98-107); Estimated GFR 40.14 (mL/min/1.73m2); Glucose 123 mg/dL (74-106); Magnesium 1.9 mg/dL (1.8-2.4); Potassium 3.7 mmol/L (3.5-5.1); Sodium 133 mmol/L (136-145); Total Protein 7.5 g/dL (6.4-8.2)
[2020-10-25 10:45] LABS: ETHANOL BLOOD < 3.0 mg/dL (<3); Troponin I 1.11 ng/mL (<0.06)
[2020-10-25] MEDS: Pantoprazole 40 MG VIAL 80 MG IVP (11:09)
--- NOTE | 2020-10-25 11:17 | NUR.NOTE ---
Nursing Note: Pt is a patient of [facility]-per pt his med list has not changed since his last PCP visit, but he has not taken any of his medications for over a month. Needs refills on inhalers, currently out.
--- NOTE | 2020-10-25 11:24 | DI.RAD_ITS ---
EXAM: XR CHEST 2V PA LATERAL CLINICAL HISTORY: Weakness TECHNIQUE: 2D digital imaging was performed. COMPARISON: No exams were available for comparison FINDINGS: The heart size is normal. Leads overlie the chest. PA view is rotated. The lungs appear clear. IMPRESSION: No acute pulmonary findings. DATA REPOSITORY: RADIATION DOSE DELIVERED:
[2020-10-25] MEDS: Aspirin 81 MG CHEW 324 MG CH (11:45)
[2020-10-25 12:10] LABS: Bilirubin Small (Negative); Blood Negative (Negative); Clarity Clear (Clear); Glucose Negative (Negative); Ketones 15 mg/dL (Negative); Leukocyte Esterase Negative (Negative); Nitrite Negative (Negative); Specific Gravity 1.025 (1.005-1.025)
--- NOTE | 2020-10-25 12:45 | RT.EKG_ITS ---
APPROVED REPORT Exam: Resting ECG Patient Location: E HR:85 bpm ECG Measurements Heart Rate 85 AXIS WA 178 P 46 QRSd 85 QRS 57 QT 383 T 71 QTc 449 Conclusion Sinus rhythm...normal P axis, V-rate 60- 99 Atrial premature complex...SV complex w/ short R-R interval There are no significant changes compared to prior EKG performed on 10/25/2020 at 09:48.
[2020-10-25 13:20] LABS: Troponin I 1.03 ng/mL (<0.06)
[2020-10-25 14:42] LABS: Source Nasopharynx
[2020-10-25 15:26] LABS: COVID-19 PCR Negative (Negative); Influenza A PCR Negative (Negative); Influenza B PCR Negative (Negative); RSV PCR Negative (Negative)
== END 2020-10-25 15:41 | disposition short-term general hospital (02) ==
PROVIDERS: Emergency Provider Registered Nurse Emergency; PCP Nurse Practitioner Adult Health
DX: I21.4 Non-ST elevation (NSTEMI) myocardial infarction (principal); K92.2 Gastrointestinal hemorrhage, unspecified; F10.10 Alcohol abuse, uncomplicated; D50.9 Iron deficiency anemia, unspecified; Z03.818 Encounter for observation for suspected exposure to other biological agents ruled out; J44.9 Chronic obstructive pulmonary disease, unspecified; F17.210 Nicotine dependence, cigarettes, uncomplicated
CPT/HCPCS: 36415; 80053; 86850; 86900; 86901; 93005; 96361; 96374; 99285; 71046; 80320; 81003; 83735; 84484; 85025; 85610; 93010

== ENCOUNTER 2021-01-23 19:21 | Observation (INO) | payer OTHER, MEDICAID, SELFPAY ==
[2021-01-23] VITALS (50 sets, daily range): BP systolic 125–195; BP diastolic 58–100; PULSE 61–129; RESP 4–24; TEMP 36.4; O2SAT 92–100
--- NOTE | 2021-01-23 19:15 | DI.RAD_ITS ---
EXAM: XR PORTABLE CHEST AP CLINICAL HISTORY: SOB TECHNIQUE: 2D digital imaging was performed. COMPARISON: CR,XR XR PORTABLE CHEST AP from 07/30/2020 FINDINGS: MEDIASTINUM: Normal. HEART: Normal. PULMONARY VASCULATURE: Normal. LUNGS: Clear. PLEURAL SPACE: No pleural effusion or pneumothorax. BONE:Within normal limits for the patient's age. OTHER FINDINGS:Normal. IMPRESSION: No acute pulmonary findings. DATA REPOSITORY: RADIATION DOSE DELIVERED:
--- NOTE | 2021-01-23 19:15 | RT.EKG_ITS ---
APPROVED REPORT Exam: Resting ECG Patient Location: E HR:85 bpm ECG Measurements Heart Rate 85 AXIS IA 178 P -25 QRSd 80 QRS 48 QT 403 T 69 QTc 480 Conclusion Unknown rhythm, irregular rate...V-rate 65-122, variation>10% Physician: afib vs atypical block. no stemi
--- NOTE | 2021-01-23 19:20 | ED.GENADUL_ITS ---
Discharge Plan Discharge Details Chief Complaint: SOB Admit Date/Time: 01/23/21 23:54 Admit Provider: Crescencio Maradiaga Attending Provider: Crescencio Maradiaga Primary Care Provider: Desirae Panda ED Provider: Ekaterina Amato Discharge Data Discharge Date/Time-TO BE ENTERED AT DEPARTURE: 01/24/21 00:42 Medical Decision Making Patient is a pleasant 75-year-old male presenting today, brought in via EMS, with chief complaint shortness of breath. He reports that shortness of breath began this morning and has persisted throughout the course of the day. Per EMS, patient was diffusely urinary for 6 months. He received 1.5 DuoNeb as well as 125 mg of Solu-Medrol prior to arrival. Patient EMS reported that the appearing much improved. EMS reports with the significant wheezing they were initially hearing has diminished. Has no complaints. Reporting for alcohol use disorder, atrial fibrillation, both esophagus and COPD, depression, renal insufficiency. Patient has never smoked reports, he reports that he smokes approximately half a pack a day. Patient reports he has had COPD exacerbations hysterectomy but this feels worse with physical. He denies any chest pain. Denies any fevers or chills. He was admitted at [facility] in September for NSTEMI which is thought to be secondary to demand associated GI bleed. Patient underwent EGD which revealed erosive gastritis and was treated with high-dose PPI. Patient is otherwise medically managed. On exam, patient appears anxious. He exhibited full sentences but is breathing hard. Wheezes are appreciated in the right lower lobe. otherwise, no diminished. No lower extremity edema. Calves are soft and nontender. EKG was obtained and reviewed by Dr. Dangelo. Patient in atrial fibrillation with a rate of 85. Otherwise, no acute ischemic changes Primary concern at this time is for COPD. Also concern for possible underlying infectious etiology. Patient has not left his house and denies any known sick contacts. Low suspicion for COVID-19 although it is on the differential. Also considered bacterial pneumonia or other viral source. History is not consistent with dissection. Patient's recent history does have concern for ACS although, without any chest pain and wheezes noted on exam, I find this less likely. Will obtain chest x-ray, baseline labs. Will give another DuoNeb. Patient is already received 125 mg of Solu-Medrol. Patient is known by our respiratory therapist who will evaluate him. FINDINGS: Lungs: Lungs are clear without consolidation. Pulmonary abbie: Unremarkable contours. Pleural spaces: No pleural effusion. No pneumothorax. Heart/Mediastinum: Unremarkable contours. No cardiomegaly. Bones/joints: Unremarkable. Intraperitoneal space: Visualized upper abdomen is unremarkable. IMPRESSION: Stable chest. No acute findings. Contacted by the lab. Patient troponin is elevated at 0.12. He was here last his troponin was 1.11. At that time, was associated bleeding. Initially, plan to begin treatment for NSTEMI. However, patient reports that he is currently asymptomatic after his breathing treatments, feeling much improved. He is now reporting also that he did have loose stool today that may have been black. Concern for recurrent GI bleed and will hold off on any anticoagulation at this time. Concern for worsening bleeding. CBC and CMP still pending. CMP reviewed. Creatinine elevated at 1.4 which appears to be baseline for the patient. Magnesium 1.3, will replenish this here. CBC significant for hemoglobin of 8.8. Patient had inpatient echo while at [facility] on 10/26/2020. This showed mild concentric left ventricular hypertrophy. Normal global left ventricular systolic function, EF of 56%. No left ventricular segmental wall motion abnormalities. Right ventricular chamber size, wall thickness and systolic function within normal limits. No valvular abnormalities. While inpatient, they did try to begin Plavix on him but patient dropped his hematocrit subsequently and this was discontinued. Patient did require transfusion and was discharged with hemoglobin of 9.7. Repeat troponin remains stable at 0.14. His ECG is unchanged. Reevaluated the patient, he continues to be asymptomatic after initial respiratory interventions. Discussed findings withthe patient. I advised admission for elevated troponin and continued monitoring. He agrees to this plan. Consulted with Dr. Maradiaga who agrees to admission for continued monitoring. RT, Aminata Salamanca, advised that patient may benefit from nebulizer at home. Alternatively, she thought he may benefit from Combivent if neb is not able to be set up. HPI General Mode of arrival: EMS . Date/Time Provider Initiated Documentation: 01/23/21 20:02 . Limitations to Documentation: no limitations . Information obtained by: patient and RN notes reviewed . History of Present Illness 75 year old M presents to the emergency department with the chief complaint of shortness of breath, described as moderate, with intensity rated at 5. Quality is described as other (reports his breathing feels tight), and is localized to the chest. Patient reports no radiation. Patient started experiencing this hour(s) (noted upon awakening) and it has been constant. No relieving factors improve symptom(s), No exacerbating factors reported . Patient notes cough (reports chronic, associates with smoking), shortness of breath and weakness (generally fatigued); denies chest pain, diaphoresis, fever/chills, loss of appetite, nausea/vomiting and rash. Patient did receive the following treatments prior to arrival, other (given duoneb and 125mg solu-medrol by EMS) Related Data Home Medications Medication Instructions Recorded Confirmed thiamine mononitrate (vit B1) 100 mg PO DAILY #30 tab 08/30/19 01/23/21 [Vitamin B-1 (mononitrate)] finasteride 5 mg tablet 5 mg PO DAILY #30 tab 08/23/20 01/23/21 tamsulosin 0.4 mg capsule 0.8 mg PO DAILY #60 cap 08/23/20 01/23/21 budesonide-formoterol HFA 160 2 puff INHALATION BID #10.2 gm 09/02/20 01/23/21 mcg-4.5 mcg/actuation aerosol inhaler melatonin 3 mg tablet,extended 3 mg PO HS PRN #90 tab 09/02/20 01/23/21 release pantoprazole 40 mg tablet,delayed 40 mg PO BID #60 tab 09/02/20 01/23/21 release artificial 1 drp OPHTHALMIC (EYE) 4-8XD PRN 11/24/20 01/23/21 tears(skqzkkr-gfsavauk-obippqw) 0.1 %-0.3 %-0.2 % eye drops nitroglycerin 0.4 mg sublingual 0.4 mg SUBLINGUAL Q5M PRN 11/24/20 01/23/21 tablet colchicine 0.6 mg capsule 0.6 mg PO DAILY #90 cap 12/15/20 01/23/21 atorvastatin 40 mg tablet 40 mg PO QHS #90 tab 01/20/21 01/23/21 metoprolol succinate 100 mg 100 mg PO DAILY #90 tab 01/20/21 01/23/21 tablet,extended release 24 hr Previous Rx's Medication Instructions Recorded thiamine mononitrate (vit B1) 100 mg PO DAILY #30 tab 08/30/19 [Vitamin B-1 (mononitrate)] finasteride 5 mg tablet 5 mg PO DAILY #30 tab 08/23/20 tamsulosin 0.4 mg capsule 0.8 mg PO DAILY #60 cap 08/23/20 budesonide-formoterol HFA 160 2 puff INHALATION BID #10.2 gm 09/02/20 mcg-4.5 mcg/actuation aerosol inhaler melatonin 3 mg tablet,extended 3 mg PO HS PRN #90 tab 09/02/20 release pantoprazole 40 mg tablet,delayed 40 mg PO BID #60 tab 09/02/20 release colchicine 0.6 mg capsule 0.6 mg PO DAILY #90 cap 12/15/20 atorvastatin 40 mg tablet 40 mg PO QHS #90 tab 01/20/21 metoprolol succinate 100 mg 100 mg PO DAILY #90 tab 01/20/21 tablet,extended release 24 hr Allergies Allergy/AdvReac Type Severity Reaction Status Date / Time bupropion AdvReac Severe seizures Verified 01/23/21 19:42 General JENNA: 3 Review of Systems Constitutional Constitutional: Reports as per HPI, Denies chills, Reports fatigue, Denies fever(s), Denies headache(s) and Reports lethargy Eyes Eyes: Denies change in vision ENT Ears, Nose, Mouth, and Throat: Denies dizziness and Denies headache(s) Cardiovascular Cardiovascular: Reports as per HPI, Denies chest pain, Denies chest pain at rest, Denies chest pain with activity, Denies leg edema, Denies lightheadedness, Denies radiating jaw, neck or arm pain, Reports dyspnea and Reports dyspnea on exertion Respiratory Respiratory: Reports as per HPI, Denies chest congestion, Reports cough (reports chronic, associates with smoking), Denies pain on inspiration, Denies pain with cough, Reports dyspnea, Reports dyspnea on exertion and Denies wheezing Gastrointestinal Gastrointestinal: Reports as per HPI, Denies abdominal pain, Denies diarrhea, Denies nausea and Denies vomiting Genitourinary Genitourinary: Denies system reviewed and no additional complaints, except as documented (denies change in urinary habits) Musculoskeletal Musculoskeletal: Reports as per HPI and Denies back pain Integumentary/Breasts Skin/Breast: Reports as per HPI and Denies rash Neurologic Neurologic: Reports as per HPI, Denies dizziness and Denies headache(s) Endocrine Endocrine: Reports fatigue Allergic/Immunologic Allergic/Immunologic: Denies wheezing [facility] Medical History Alcohol use disorder Atrial fibrillation Paroxysmal per hospital records; not anticoagulated secondary to recurrent GI bleeds from chronic EtOH use Cooper's esophagus COPD (chronic obstructive pulmonary disease) Depression Gout Colchicine prevention Hematemesis Insomnia Radicular pain of right lower extremity Renal insufficiency Right knee pain Smoking hx UTI (urinary tract infection) Surgical History H/O esophagogastroduodenoscopy (~04/2019) Repeat on 10/26/20 [facility] severe reflux esophagitis w/ non-bleeding esophageal ulcer. 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[employer]) What type of physical activity do you participate in: none Do you feel safe at home: Yes Do you feel safe in your relationship?: Yes Additional Social history: Lives alone in apartment in [facility] for past ~6 years, closest family brother Owen in [place], [place] 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[employer], 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 [place] Exam Const General: cooperative, comfortable, no acute distress, well developed, anxious and ill appearing chronically Nutritional Appearance: average body habitus and well nourished Orientation: alert, awake and oriented x3 HENMT Head: normal to inspection Ears: hearing grossly normal bilaterally Mouth: mucous membranes dry Chest Chest: normal inspection of the chest, normal palpation of entire chest wall and no crepitus Resp Effort & Inspection: normal respiratory effort, able to speak in complete sentences, no audible wheezes, no cough, pursed lip breathing and no respiratory distress Auscultation: no crackles, no rales, no rhonchi and wheezes expiratory wheezes and right lower Cardio Rate: regular rate Rhythm: regular rhythm Heart Sounds: S1 normal and S2 normal GI Inspection: normal to inspection, no edema and non-distended Palpation: soft, no hepatosplenomegaly, not firm, no guarding, not rigid and nontender Auscultation: normal bowel sounds Skin General skin exam: no rashes or lesions noted Trauma: no lacerations or abrasions Neuro General: patient alert, patient awake and patient oriented x3 Cognition: normal cognition Speech: speech normal Gait: normal gait Extrem General: normal to inspection, capillary refill normal, no pedal edema, no calf tenderness and normal gait Psych Appearance: grossly normal and well kempt Mental Status: mental status grossly normal Speech and Movement: speech and movement normal
[2021-01-23] MEDS: Albuterol/Ipratropium 3 ML UPD VIAL UPD ×2 (19:47→20:01)
--- NOTE | 2021-01-23 20:00 | DI.VRAD_ITS ---
PROCEDURE INFORMATION: Exam: XR Chest Exam date and time: 01/23/2021 7:42 PM Age: 75 years old Clinical indication: Shortness of breath; Patient HX: SOB TECHNIQUE: Imaging protocol: XR of the chest. Views: 1 view. Total images: 1 COMPARISON: CR XR CHEST 2V PA LATERAL 10/25/2020 11:18 AM FINDINGS: Lungs: Lungs are clear without consolidation. Pulmonary abbie: Unremarkable contours. Pleural spaces: No pleural effusion. No pneumothorax. Heart/Mediastinum: Unremarkable contours. No cardiomegaly. Bones/joints: Unremarkable. Intraperitoneal space: Visualized upper abdomen is unremarkable. IMPRESSION: Stable chest. No acute findings. Dictated and Authenticated by: Khadar Garg MD. Ordering:CARMEN Tobar MD
[2021-01-23 20:26] LABS: ALT 18 U/L (16-63); AST 16 U/L (15-37); Alkaline Phosphatase 63 U/L (46-116); Anion Gap 9.3 mmol/L (3-11); BUN 17 mg/dL (7-18); Bilirubin, Total 1.1 mg/dL (0.2-1.0); CO2 27.7 mmol/L (21.0-32.0); CREATININE 1.4 mg/dL (0.70-1.30); Calcium 9.4 mg/dL (8.5-10.1); Chloride 104 mmol/L (98-107); Estimated GFR 49.54 (mL/min/1.73m2); Glucose 114 mg/dL (74-106); Magnesium 1.3 mg/dL (1.8-2.4); Potassium 4.2 mmol/L (3.5-5.1); Sodium 141 mmol/L (136-145); Total Protein 7.3 g/dL (6.4-8.2)
[2021-01-23 20:27] LABS: PTT Activated 23.9 sec (21.0-27.5); Prothrombin Time 10.1 sec (9.3-11.0)
[2021-01-23 20:29] LABS: Troponin I 0.12 ng/mL (<0.06)
[2021-01-23 20:32] LABS: Abs Immature Grans 0.04 10^3/uL (0.0-0.06); Absolute Basophil Count 0.08 10^3/uL (0.0-0.2); Absolute Eosinophil Count 0.04 10^3/uL (0.0-0.7); Absolute Lymphocyte Count 1.67 10^3/uL (1.2-3.4); Absolute Neutrophil Count 5.16 10^3/uL (1.2-6.7); Eosinophils % 0.5; HCT 30.5 % (40.0-50.0); HGB 8.8 g/dL (13.5-17.5); Immature Grans % 0.5; Lymphocytes % 21.7; MCH 21.4 pg (27.0-33.0); MCHC 28.9 % (32.0-36.0); MPV 10.3 fL (8.0-11.0); Monocytes % 9.1; Neutrophils % 67.2; Nucleated RBC 0 %; Platelet Count 362 10^3/uL (130-400); RBC 4.12 10^6/uL (4.36-5.78); RDW 21.2 % (11.8-14.1); RDW-SD 54.1 fL; WBC 7.69 10^3/uL (4.4-10.8)
[2021-01-23 20:40] LABS: Anisocytosis 2+; Diff Comment Agrees w/ Instrument; Microcytosis 2+
[2021-01-23] MEDS: Aspirin 81 MG CHEW 324 MG CH (21:27)
[2021-01-23] MEDS: Clopidogrel 300 MG TAB PO (21:28)
[2021-01-23] MEDS: MAGNESIUM SULFATE 1 GM/100 ML BAG IVPB (21:28)
[2021-01-23 21:58] LABS: Source Nasal/Nares
[2021-01-23 22:47] LABS: COVID-19 PCR Negative (Negative)
--- NOTE | 2021-01-23 23:00 | RT.EKG_ITS ---
APPROVED REPORT Exam: Resting ECG Patient Location: E HR:89 bpm ECG Measurements Heart Rate 89 AXIS WY [id number] P [id number] QRSd 82 QRS 38 QT 411 T 73 QTc 501 Conclusion Atrial fibrillation...V-rate 61-132, irreg A-activity Prolonged QT interval...QTc >500mS
[2021-01-23 23:05] LABS: Troponin I 0.14 ng/mL (<0.06)
--- NOTE | 2021-01-23 23:36 | HPE_ITS ---
Date of service: 01/23/21 Time of Service: 23:36 Assessment and Plan Assessment and plan (1) COPD (chronic obstructive pulmonary disease): Status: Chronic Assessment and plan: COPD exacerbation, perhaps precipitated by what sounds like URI. Will continue updrafts and steroids; don't see need for antib iotics at present. As to troponins, probably an element of demand ischemia from stress of SOB, (possible hypoxia) and hypertension. Suffice to say story does not suggest ACS and I do not see indication for treatment of same. Will simply trend out the troponins. Reviewed ADs, requests Full Code. History of Present Illness History of Present Illness Chief Complaint: SOB Narrative: 75 male with COPD, continues to smoke. Reports one week of runny nose and occaional cough with clear sputum, and then one day of SOB. EMS summoned, noted diffuse wheeze and hypertension. Given Duoneb and solumedrol enroute. Here in ER SOB has resolved, and findings of note for no leukocytosis, and negative CXR. However, troponin of 0.12, then 0.14 noted. EKG shows baseline AF w/o ischemic changes, and patient has had no CP throughout. Review of Systems All systems reviewed & are unremarkable except as noted in HPI and below PFSH Medical History Alcohol use disorder Atrial fibrillation Paroxysmal per hospital records; not anticoagulated secondary to recurrent GI bleeds from chronic EtOH use Cooper's esophagus COPD (chronic obstructive pulmonary disease) Depression Gout Colchicine prevention Hematemesis Insomnia Radicular pain of right lower extremity Renal insufficiency Right knee pain Smoking hx UTI (urinary tract infection) Surgical History H/O esophagogastroduodenoscopy (~04/2019) Repeat on 10/26/20 [facility] severe reflux esophagitis w/ non-bleeding esophageal ulcer. 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[place] Meds Allergies and Home Medications Allergies Allergy/AdvReac Type Severity Reaction Status Date / Time bupropion AdvReac Severe seizures Verified 01/23/21 19:42 Home Medications Medication Instructions Recorded Confirmed Type thiamine mononitrate (vit B1) 100 mg PO DAILY #30 tab 08/30/19 01/23/21 Rx [Vitamin B-1 (mononitrate)] finasteride 5 mg tablet 5 mg PO DAILY #30 tab 08/23/20 01/23/21 Rx tamsulosin 0.4 mg capsule 0.8 mg PO DAILY #60 cap 08/23/20 01/23/21 Rx budesonide-formoterol HFA 160 2 puff INHALATION BID #10.2 gm 09/02/20 01/23/21 Rx mcg-4.5 mcg/actuation aerosol inhaler melatonin 3 mg tablet,extended 3 mg PO HS PRN #90 tab 09/02/20 01/23/21 Rx release pantoprazole 40 mg tablet,delayed 40 mg PO BID #60 tab 09/02/20 01/23/21 Rx release artificial 1 drp OPHTHALMIC (EYE) 4-8XD PRN 11/24/20 01/23/21 History tears(qegrfhh-rctmghij-rmslvfm) 0.1 %-0.3 %-0.2 % eye drops nitroglycerin 0.4 mg sublingual 0.4 mg SUBLINGUAL Q5M PRN 11/24/20 01/23/21 History tablet colchicine 0.6 mg capsule 0.6 mg PO DAILY #90 cap 12/15/20 01/23/21 Rx atorvastatin 40 mg tablet 40 mg PO QHS #90 tab 01/20/21 01/23/21 Rx metoprolol succinate 100 mg 100 mg PO DAILY #90 tab 01/20/21 01/23/21 Rx tablet,extended release 24 hr Exam Narrative Exam Narrative: 150/79, 83, 36.4, 17, 96% RA. HEENT atraumatic; neck supple; lungs few wheezes on left; heart distant, irr/irr; abdomen soft and NT; extremit ies w/o edema; neuro OLx3, nonfocal Results Labs Result diagrams: 01/23/21 19:55 01/23/21 19:55 Labs: Laboratory Results - last 24 hr 01/23/21 01/23/21 01/23/21 19:55 19:55 19:55 WBC 7.69 RBC 4.12 L Hgb 8.8 L Hct 30.5 L MCV 74.0 L MCH 21.4 L MCHC 28.9 L RDW 21.2 H Plt Count 362 MPV 10.3 Immature Gran % 0.5 Neutrophils % 67.2 Lymphocytes % 21.7 Monocytes % 9.1 Eosinophils % 0.5 Basophils % 1.0 Nucleated RBC % 0 Absolute Neutrophils 5.16 Absolute Lymphocytes 1.67 Absolute Monocytes 0.70 Absolute Eosinophils 0.04 Absolute Basophils 0.08 RBC Morphology See below Anisocytosis 2+ Microcytosis 2+ PT 10.1 INR 1.0 APTT 23.9 D-Dimer Sodium 141 Potassium 4.2 Chloride 104 Carbon Dioxide 27.7 Anion Gap 9.3 BUN 17 Creatinine 1.4 H Estimated GFR/1.73 m2 49.54 Glucose 114 H Calcium 9.4 Magnesium 1.3 L Total Bilirubin 1.1 H AST 16 ALT 18 Alkaline Phosphatase 63 Troponin I 0.12 H* Total Protein 7.3 Albumin 4.0 COVID-19 Source SARS-CoV-2 (PCR) 01/23/21 01/23/21 01/23/21 20:25 21:53 22:35 WBC RBC Hgb Hct MCV MCH MCHC RDW Plt Count MPV Immature Gran % Neutrophils % Lymphocytes % Monocytes % Eosinophils % Basophils % Nucleated RBC % Absolute Neutrophils Absolute Lymphocytes Absolute Monocytes Absolute Eosinophils Absolute Basophils RBC Morphology Anisocytosis Microcytosis PT INR APTT D-Dimer Cancelled Sodium Potassium Chloride Carbon Dioxide Anion Gap BUN Creatinine Estimated GFR/1.73 m2 Glucose Calcium Magnesium Total Bilirubin AST ALT Alkaline Phosphatase Troponin I 0.14 H* Total Protein Albumin COVID-19 Source Nasal/nares SARS-CoV-2 (PCR) Negative Last Vital Signs Temp 36.4 C L 01/23/21 19:25 Pulse 75 01/23/21 22:46 Resp 17 01/23/21 22:50 BP 150/79 H 01/23/21 22:46 Pulse Ox 96 01/23/21 22:50 COVID-19 Screening Have you, or household traveled for leisure in last 14 days?: No Had IN PERSON contact w/suspected or confirmed C-19 person: No
[2021-01-24] VITALS (16 sets, daily range): BP systolic 128–162; BP diastolic 65–84; PULSE 67–121; RESP 1–20; TEMP 35.6–37; O2SAT 95–98
[2021-01-24] MEDS: methylPREDNISolone SUCC 40 MG VIAL IVP ×2 (01:31→09:23)
[2021-01-24] MEDS: Albuterol/Ipratropium 3 ML UPD VIAL UPD ×4 (01:32→18:16)
[2021-01-24] MEDS: Normal Saline Flush 10 ML SYR IVP ×2 (01:32→09:23)
[2021-01-24 07:15] LABS: Troponin I 0.13 ng/mL (<0.06)
[2021-01-24] MEDS: Colchicine 0.6 MG TAB PO (08:26)
[2021-01-24] MEDS: Thiamine 100 MG TAB PO (08:26)
[2021-01-24] MEDS: Tamsulosin 0.4 MG CAPCR 0.8 MG PO (08:26)
[2021-01-24] MEDS: Pantoprazole 40 MG TABCR PO ×2 (08:26→19:36)
[2021-01-24] MEDS: Metoprolol CR 100 MG TABCR PO (08:26)
[2021-01-24] MEDS: Finasteride 5 MG TAB PO (08:29)
[2021-01-24] MEDS: Budesonide/Formoterol 160/4.5 6 GM 60 PUFF INH IH ×2 (09:06→18:15)
--- NOTE | 2021-01-24 11:51 | PDOC.CMIN ---
- If Service Date Differs Date of service: 01/24/21 Time of Service: 11:51 Care Management Initial Assess REASON FOR HOSPITALIZATION:: COPD PAST MEDICAL HISTORY/PAST SURGICAL HISTORY:: Medical History (Updated 07/30/20 @ 14:15 by Rose Wagoner NP). Alcohol use disorder. Atrial fibrillation. Cooper's esophagus. COPD (chronic obstructive pulmonary disease). Depression. Failure to thrive. Hematemesis. Insomnia. Radicular pain of right lower extremity. Renal insufficiency. Right knee pain. Smoking hx. UTI (urinary tract infection). Surgical History . H/O esophagogastroduodenoscopy (~04/2019) PREVIOUS FUNCTIONAL STATUS/SOCIAL/FAMILY SUPPORTS:: Khoi lives alone in an apartment in [facility]. He is a of both the [employer] and [employer]. He has a brother in [place], [facility], who is supportive of him. He also has two sons who reside in [place], but Angelika has limited contact with them. CURRENT FUNCTIONAL STATUS:: Angelika was sitting up in bed when CM met with him. He was pleasant although he indicated that he is not feeling well. Angelika stated that things have been going really well since he was laast discharged from the hospital. He has been able to maintain periods of sobriety and has been managing to care for himself. angelika shared that he has even learned how to cook with a bit of help from his home health nurse. ADVANCE DIRECTIVES:: COLST on file Has patient been provided with info about the portal/API?: Yes Did the patient sign up for the portal?: No CODE STATUS:: Full Code INSURANCE COVERAGE / FINANCIAL ISSUES:: JVA. Medicaid. Medicare CURRENT HOME/COMMUNITY SERVICES/EQUIPMENT:: home health nursing once a week PRIMARY CARE PHYSICIAN:: Desirae Panda POTENTIAL DISCHARGE NEEDS:: Follow up with PCP and plan of care PATIENT/FAMILY EDUCATION NEEDS:: Review of discharge instructions, medications, limitations, follow up plan, Ask Me Three TRANSPORTATION:: via private vehicle with a friend. PLAN:: Angelika will alexa be discharged home with a resumption of services. He will follow up with his PCP and plan of care and transport with a friend. CM will continue to support Angelika and his discharge planning needs.
--- NOTE | 2021-01-24 15:13 | CHAPLAIN ---
Khoi was just finishing up a breathing treatment when I visited. He told me about growing up Mandaeism, very strict [employer]aeism. 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 Khoi said he became disillusioned with the [employer]ism Anabaptism when a tank setter refused to baptize Khoi's seven year old son. He believes that the methodist gave him a solid foundation, but he no longer attends methodist. Khoi also talked about his brother who studied to become a tank setter, but didn't, and they are still in touch, although his brother lives in [place].
--- NOTE | 2021-01-24 15:20 | PGE_ITS ---
Date of Service Date of service: 01/24/21 Time of Service: 15:20 Assessment and Plan Assessment and plan (1) COPD (chronic obstructive pulmonary disease): Status: Chronic Assessment and plan: COPD exacerbation, perhaps precipitated by what sounds like URI. Will continue updrafts and steroids; antibiotics not indicated as he is improving markedly. oxygen weaned off. change to albuterol MDI, we can dispense rest for home use on discharge (2) Atrial fibrillation: Status: Acute Assessment and plan: rate controlled, continue metoprolol not anticoagulated d/t bleeding history (3) Sleeping difficulty: Status: Acute Assessment and plan: chronic, schedule melatonin (4) Troponin level elevated: Status: Acute Assessment and plan: has remained flat. unknown significance. possibly demand ischemia from hypoxia no chest pain (5) Discharge planning issues: Status: Acute Assessment and plan: anticipate discharge tomorrow if remains medically stable. discussed with Dr Hayden Subjective Subjective Patient reports: tolerating liquids well, tolerating a regular diet and afebrile; denies shortness of breath Interval history since last seen: patient has been weaned off oxygen, he states he does not feel well enough to go home today. did not sleep with general malaise. 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 there are no wheezes and no respiratory distress Exam Const General: cooperative, comfortable, no acute distress, well developed, anxious and ill appearing chronically Nutritional Appearance: average body habitus and well nourished Orientation: alert, awake and oriented x3 HENMT Head: normal to inspection Ears: hearing grossly normal bilaterally Mouth: mucous membranes dry Chest Chest: normal inspection of the chest, normal palpation of entire chest wall and no crepitus Resp Effort & Inspection: normal respiratory effort, able to speak in complete sentences, no audible wheezes, no cough, pursed lip breathing and no respiratory distress Auscultation: no crackles, no rales and no rhonchi Cardio Rate: regular rate Rhythm: regular rhythm Heart Sounds: S1 normal and S2 normal GI Inspection: normal to inspection, no edema and non-distended Palpation: soft, no hepatosplenomegaly, not firm, no guarding, not rigid and nontender Auscultation: normal bowel sounds Back/Spine/Pelvis Back: no CVA tenderness Thoracic/Lumbar Spine: thoracic and lumbar spine normal to inspection Skin General skin exam: no rashes or lesions noted Trauma: no lacerations or abrasions Neuro General: patient alert, patient awake and patient oriented x3 Cognition: normal cognition Speech: speech normal Gait: normal gait Extrem General: normal to inspection, capillary refill normal, no pedal edema, no calf tenderness and normal gait Psych Appearance: grossly normal Mental Status: mental status grossly normal Speech and Movement: speech and movement normal Objective Last Vital Signs Temp 36.7 C 01/24/21 14:55 Pulse 82 01/24/21 14:55 Resp 18 01/24/21 14:55 BP 150/73 H 01/24/21 14:55 Pulse Ox 97 01/24/21 14:55 Laboratory Results - last 24 hr 01/23/21 01/23/21 01/23/21 19:55 19:55 19:55 WBC 7.69 RBC 4.12 L Hgb 8.8 L Hct 30.5 L MCV 74.0 L MCH 21.4 L MCHC 28.9 L RDW 21.2 H Plt Count 362 MPV 10.3 Immature Gran % 0.5 Neutrophils % 67.2 Lymphocytes % 21.7 Monocytes % 9.1 Eosinophils % 0.5 Basophils % 1.0 Nucleated RBC % 0 Absolute Neutrophils 5.16 Absolute Lymphocytes 1.67 Absolute Monocytes 0.70 Absolute Eosinophils 0.04 Absolute Basophils 0.08 RBC Morphology See below Anisocytosis 2+ Microcytosis 2+ PT 10.1 INR 1.0 APTT 23.9 D-Dimer Sodium 141 Potassium 4.2 Chloride 104 Carbon Dioxide 27.7 Anion Gap 9.3 BUN 17 Creatinine 1.4 H Estimated GFR/1.73 m2 49.54 Glucose 114 H Calcium 9.4 Magnesium 1.3 L Total Bilirubin 1.1 H AST 16 ALT 18 Alkaline Phosphatase 63 Troponin I 0.12 H* Total Protein 7.3 Albumin 4.0 COVID-19 Source SARS-CoV-2 (PCR) 01/23/21 01/23/21 01/23/21 20:25 21:53 22:35 WBC RBC Hgb Hct MCV MCH MCHC RDW Plt Count MPV Immature Gran % Neutrophils % Lymphocytes % Monocytes % Eosinophils % Basophils % Nucleated RBC % Absolute Neutrophils Absolute Lymphocytes Absolute Monocytes Absolute Eosinophils Absolute Basophils RBC Morphology Anisocytosis Microcytosis PT INR APTT D-Dimer Cancelled Sodium Potassium Chloride Carbon Dioxide Anion Gap BUN Creatinine Estimated GFR/1.73 m2 Glucose Calcium Magnesium Total Bilirubin AST ALT Alkaline Phosphatase Troponin I 0.14 H* Total Protein Albumin COVID-19 Source Nasal/nares SARS-CoV-2 (PCR) Negative 01/24/21 01/24/21 06:10 12:05 WBC RBC Hgb Hct MCV MCH MCHC RDW Plt Count MPV Immature Gran % Neutrophils % Lymphocytes % Monocytes % Eosinophils % Basophils % Nucleated RBC % Absolute Neutrophils Absolute Lymphocytes Absolute Monocytes Absolute Eosinophils Absolute Basophils RBC Morphology Anisocytosis Microcytosis PT INR APTT D-Dimer Sodium Potassium Chloride Carbon Dioxide Anion Gap BUN Creatinine Estimated GFR/1.73 m2 Glucose Calcium Magnesium Total Bilirubin AST ALT Alkaline Phosphatase Troponin I 0.13 H* 0.10 H* Total Protein Albumin COVID-19 Source SARS-CoV-2 (PCR)
[2021-01-24] MEDS: Atorvastatin 40 MG TAB PO (21:11)
[2021-01-25 00:09] VITALS: BP 139/69; PULSE 84; RESP 18; TEMP 36.5; O2SAT 97
[2021-01-25] MEDS: Albuterol/Ipratropium 3 ML UPD VIAL UPD ×2 (05:53→11:59)
[2021-01-25 06:52] VITALS: PULSE 75
[2021-01-25 07:33] VITALS: BP 142/84; PULSE 82; RESP 19; TEMP 36.7; O2SAT 97
[2021-01-25] MEDS: Colchicine 0.6 MG TAB PO (07:35)
[2021-01-25] MEDS: Finasteride 5 MG TAB PO (07:35)
[2021-01-25] MEDS: Metoprolol CR 100 MG TABCR PO (07:35)
[2021-01-25] MEDS: predniSONE 20 MG TAB 40 MG PO (07:35)
[2021-01-25] MEDS: Thiamine 100 MG TAB PO (07:35)
[2021-01-25] MEDS: Pantoprazole 40 MG TABCR PO (07:35)
[2021-01-25] MEDS: Tamsulosin 0.4 MG CAPCR 0.8 MG PO (07:35)
[2021-01-25] MEDS: Budesonide/Formoterol 160/4.5 6 GM 60 PUFF INH IH (08:25)
--- NOTE | 2021-01-25 10:21 | DSE_ITS ---
Date of service: 01/25/21 Time of Service: 10: DS: Diagnosis Discharge Diagnosis (1) COPD (chronic obstructive pulmonary disease): Start date: 01/25/21 Start time: 10:27 Status: Chronic Asessment and Plan: LS improved. Not requiring oxygen. 97% on RA. He states coughing up a large amount of sputum that is not yellow or green or discolored. No signs of infection He feels tired and wants to stay here to sleep. I explained that he was not able to stay at the hospital to just sleep. He would get better sleep in his home. He will be discharged with steroid burst Nebulizer will be ordered for home. Will also order PFT and fill out paper work for pulmonary rehab. Resume HH with addition of PT as he stated that he is only able to walk 25 feet, however per nursing he was able to ambulate around room without any difficulty this admission. (2) Atrial fibrillation: Start date: 01/25/21 Start time: 10:32 Status: Chronic Asessment and Plan: Rate controlled continue home metropolol (3) Sleeping difficulty: Start date: 01/25/21 Start time: 10:32 Status: Chronic Asessment and Plan: He could try melatonin at home, or other destressing techniques (4) Troponin level elevated: Start date: 01/25/21 Start time: 10:33 Status: Acute Asessment and Plan: has remained flat. unknown significance. possibly demand ischemia from hypoxia no chest pain above case discussed with Dr. Hayden Discharge Plan Disposition Patient Disposition: HOME W/HOME HEALTH SERVICE Condition: Improving Discharge Details Reason For Visit: COPD Admit Date/Time: 01/23/21 23:54 Admit Provider: Crescencio Maradiaga Attending Provider: Crescencio Maradiaga Primary Care Provider: Desirae Panda Hospital Course Hospital Course: 75 y.o male with PMH of COPD, Afib (not on chronic coagulation due to hx of bleeding), ETOH abuse, GI bleed, Anemia, Gout, depression, admitted to [facility] obs after presenting to the ED for SOB. He received duonebs and steroids in the ED. Labs in the ED revealing anemia, which is baseline for patient. Elevated troponin though this does not appear to be new since and it is the lowest it has been at 0.10. He was on telemetry revealing Afib, controlled rate. Since admission he has not required oxygen. His lungs have been clear with scattered wheezes that clear with inhaled albuterol. He would benefit from nebulizer treatments at home. He has not had PFTs in the last 2 years; will set up for outpatient PFT's and Pulmonary rehabilitation. Discharging home on steroid burst. Follow up with PCP in 2 weeks. He denies SOB, CP, N/V/D. Home Meds and New Rx's Prescriptions: New prednisone 20 mg Tablet 40 mg PO DAILY Qty: 8 RF: 0 Continued budesonide-formoterol [Symbicort] 160-4.5 mcg/actuation HFA aerosol inhaler 2 puff inhalation BID Qty: 10.2 RF: 11 pantoprazole 40 mg tablet,delayed release (DR/EC) 40 mg PO BID Qty: 60 RF: 0 melatonin 3 mg tablet extended release 3 mg PO HS PRN (Reason: Insomnia) Qty: 90 RF: 3 tamsulosin 0.4 mg capsule 0.8 mg PO DAILY Qty: 60 RF: 12 finasteride 5 mg tablet 5 mg PO DAILY Qty: 30 RF: 12 artificial tear(tjhvb-opn-pga) 0.1-0.3-0.2 % drops 1 drp ophthalmic (eye) 4-8XD PRNRF: 0 nitroglycerin 0.4 mg tablet, sublingual 0.4 mg sublingual Q5M PRNRF: 0 colchicine [Mitigare] 0.6 mg capsule 0.6 mg PO DAILY Qty: 90 RF: 3 atorvastatin 40 mg tablet 40 mg PO QHS Qty: 90 RF: 0 metoprolol succinate 100 mg tablet extended release 24 hr 100 mg PO DAILY Qty: 90 RF: 0 thiamine mononitrate (vit B1) [Vitamin B-1 (mononitrate)] 100 mg Tablet 100 mg PO DAILY Qty: 30 RF: 0 Discharge Instructions Instructions: A-fib (Atrial Fibrillation) (DC), COPD (Chronic Obstructive Pulmonary Disease) (DC) Stand Alone Forms: Nursing Discharge Form Referrals: Desirae Panda NP [Primary Care Provider] - 02/06/21 9:15 am Activity:: Activity as Tolerated Equipment/Supplies:: nebulizer Diet:: Low Sodium Discharge Orders Discharge Orders: Discharge Order (Routine); Ordered 01/25/21 Ordered By: Desirae Kulkarni Other Ambulatory Orders: PFT ([place]/[facility]) (Outpt) (ONCE) Location: None Selected Ordered By: Desirae Kulkarni DS: Summary Time Spent with Patient providing and/or coordinating discharge services: Greater than 30 minutes (total time discharging 60 mins) Status at Discharge Functional status at discharge: independent ambulation Overall status at discharge: patient is progressing back to baseline Mental Status: mental status grossly normal Speech and Movement: speech and movement normal Mood: congruent mood Affect: normal affect Exam Narrative Exam Narrative: Const: Elderly male older than stated age, sleeping in bed, Awakes easily. AAOx3 HENMT: Atraumatic, Normocephalic, Eyes: PERRLA, EOMI Neck: no lymphedema, or JVD Resp: able to speak complete sentences, nonlabored breathing, Few rhonchi in bases, cough nonproductive. not requiring oxgyen Cardio: rate controlled. irregularrly irregular GI: BS x4, soft nontender, nondistended Skin:intact Extrem: No clubbing cyanosis, or edema. Psych Mental Status: mental status grossly normal Speech and Movement: speech and movement normal Mood: congruent mood Affect: normal affect DS: Data Vitals/I&O Vitals and I&O: Vital Signs Temperature 36.7 C 01/25/21 07:33 Temperature Source Tympanic 01/25/21 07:33 Pulse 82 01/25/21 07:33 Pulse Rhythm Irregular 01/25/21 08:24 Pulse Strength Normal 01/23/21 22:00 Pulse 82 01/24/21 00:01 Respiratory Rate 19 01/25/21 07:33 Respiratory Effort 01/25/21 08:24 Respiratory Depth Normal 01/25/21 08:24 Respiratory Pattern Normal 01/25/21 08:24 Blood Pressure 142/84 H 01/25/21 07:33 Blood Pressure Mean 104 01/24/21 00:01 Pulse Oximetry 97 01/25/21 07:33 Oxygen Delivery Method Room Air 01/25/21 07:33 Oxygen Flow Rate 0 01/25/21 07:33 Pain Level 0 01/25/21 00:09 Intake & Output 01/24/21 01/24/21 01/25/21 11:59 23:59 11:59 Intake Total 264 / 744 480 / 744 Balance 264 / 744 480 / 744 Weight 74.191 kg Intake: IV Oral 250 / 730 480 / 730 Other: Urine Color Yellow Yellow Comment Other RN assisted patient to bathroom around this time. Urine uncollected at this time. Voiding Methods Toilet Toilet Data Completed and Pending Completed studies during hospitalization [Text1]: Exam(s) a RAD:XR portable chest AP EXAM: XR PORTABLE CHEST AP CLINICAL HISTORY: SOB TECHNIQUE: 2D digital imaging was performed. COMPARISON: CR,XR XR PORTABLE CHEST AP from 07/30/2020 FINDINGS: MEDIASTINUM: Normal. HEART: Normal. PULMONARY VASCULATURE: Normal. LUNGS: Clear. PLEURAL SPACE: No pleural effusion or pneumothorax. BONE:Within normal limits for the patient's age. OTHER FINDINGS:Normal. IMPRESSION: No acute pulmonary findings. Exam(s) PROCEDURE INFORMATION: Exam: XR Chest Exam date and time: 01/23/2021 7:42 PM Age: 75 years old Clinical indication: Shortness of breath; Patient HX: SOB TECHNIQUE: Imaging protocol: XR of the chest. Views: 1 view. Total images: 1 COMPARISON: CR XR CHEST 2V PA LATERAL 10/25/2020 11:18 AM FINDINGS: Lungs: Lungs are clear without consolidation. Pulmonary abbie: Unremarkable contours. Pleural spaces: No pleural effusion. No pneumothorax. Heart/Mediastinum: Unremarkable contours. No cardiomegaly. Bones/joints: Unremarkable. Intraperitoneal space: Visualized upper abdomen is unremarkable. IMPRESSION: Stable chest. No acute findings. Labs on day of discharge: Labs from last 24 hours 01/24/21 12:05 Troponin I 0.10 H* PFSH Medical History Alcohol use disorder Atrial fibrillation Paroxysmal per hospital records; not anticoagulated secondary to recurrent GI bleeds from chronic EtOH use Cooper's esophagus COPD (chronic obstructive pulmonary disease) Depression Gout Colchicine prevention Hematemesis Insomnia Radicular pain of right lower extremity Renal insufficiency Right knee pain Smoking hx UTI (urinary tract infection) Surgical History H/O esophagogastroduodenoscopy (~04/2019) Repeat on 10/26/20 [facility] severe reflux esophagitis w/ non-bleeding esophageal ulcer. 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
--- NOTE | 2021-01-25 11:15 | RESPIRATORY ---
Pt has an order for a nebulizer being faxed to [facility] and a take home inhaler (albuterol).
[2021-01-25 11:45] VITALS: PULSE 78; PULSE 82; PULSE 83; RESP 16; O2SAT 96; O2SAT 97
--- NOTE | 2021-01-25 11:52 | PDOC.CMDIS ---
- If Service Date Differs Date of service: 01/25/21 Time of Service: 11:53 LACE Index Scoring Tool - Questions: Length of Stay (in days): 2 Acuity (Admit via E.D.?): Yes Comorbidities: Chronic Pulmonary Disease E.D. Visits: 3 - Answers: Total Score: 10 Risk of Readmission: High Risk Care Management Discharge Reason for Hospitalization: COPD Discharge Plan: Rufino will be discharged home with a resumption of services for nursing with the addition of PT. He will follow up with his PCP and plan of care and transport with RCT coordinated by CM. Patient/Family Education Needs: Review of discharge instructions, medications, limitations, follow up plan, Ask Me Three
[2021-01-25 11:59] VITALS: RESP 1; RESP 8
[2021-01-25 12:27] VITALS: BP 138/81; PULSE 81; RESP 18; TEMP 36.9; O2SAT 97
== END 2021-01-25 12:57 | disposition home health service (06) ==
LOC: ER 01-24 00:14 → MS 01-24 00:41
PROVIDERS: Nurse Practitioner Acute Care; Admitting Provider General Practice; Emergency Provider Physician Assistant; PCP Nurse Practitioner Adult Health; Visit Provider General Practice
DX: J44.1 Chronic obstructive pulmonary disease with (acute) exacerbation (principal); I10 Essential (primary) hypertension; F17.210 Nicotine dependence, cigarettes, uncomplicated; I48.0 Paroxysmal atrial fibrillation; K22.70 Barrett's esophagus without dysplasia; F32.9 Major depressive disorder, single episode, unspecified; M10.9 Gout, unspecified; G47.00 Insomnia, unspecified; R09.02 Hypoxemia; F10.10 Alcohol abuse, uncomplicated; D64.9 Anemia, unspecified
CPT/HCPCS: 36415; 80053; 87635; 93005; 94618; 94640; 96365; 96376; 99285; 71045; 83735; 84484; 85025; 85379; 85610; 85730; 93010; 99217; 99219; 99226; G0378; J3475; J7512; J7620

== ENCOUNTER 2022-03-26 10:18 | Inpatient (IN) | payer OTHER, SELFPAY ==
[2022-03-26] VITALS (190 sets, daily range): BP systolic 110–149; BP diastolic 42–93; PULSE 82–147; RESP 11–31; TEMP 36.2–36.8; O2SAT 95–100
--- NOTE | 2022-03-26 10:30 | RT.EKG_ITS ---
APPROVED REPORT Exam: Resting ECG Reason for Exam: weakness Patient Location: E HR:95 bpm ECG Measurements Heart Rate 95 AXIS NC [id number] P [id number] QRSd 88 QRS 74 QT 367 T 45 QTc 467 Conclusion Atrial fibrillation...? atrial activity Low voltage, extremity leads...all extremity leads <0.5mV trial fibrillation at 95, normal axis, nonspecific ST changes, no STEMI, nondiagnostic EKG
--- NOTE | 2022-03-26 11:15 | DI.US_ITS ---
Exam(s) US EXTREMITY VENOUS BI EXAM: US EXTREMITY VENOUS BI CLINICAL HISTORY: swelling, pain TECHNIQUE: Grayscale, color, and doppler imaging of the deep venous system of both lower extremities was performed. COMPARISON: US US RENAL from 08/01/2020 FINDINGS: There is no evidence of intraluminal thrombus and there is normal compression and augmentation demons trated within the common femoral veins, femoral veins, and popliteal veins of both lower extremities. In the calves the interrogated veins also exhibit normal compression/ augmentation properties. The greater saphenous veins also appear patent as do the saphenofemoral junctions bilaterally.. IMPRESSION: 1. No ultrasound evidence of DVT in either lower extremity. DATA REPOSITORY:
[2022-03-26] MEDS: Albuterol/Ipratropium 3 ML UPD VIAL UPD ×3 (11:22→15:11)
--- NOTE | 2022-03-26 11:29 | DI.RAD_ITS ---
Exam(s) XR CHEST 1V IN DI DEPT EXAM: XR CHEST 1V IN DI DEPT CLINICAL HISTORY: SOB. TECHNIQUE: 2D digital imaging was performed. COMPARISON: CR,XR XR PORTABLE CHEST AP from 01/23/2021 FINDINGS: Single AP portable view. Heart size is upper normal. The mediastinum is not widened. Lungs are clear. No infiltrates nor obvious pleural effusions. IMPRESSION: No acute pulmonary findings on this single AP portable view of the chest.No significant change compar ed to 01/23/2021 DATA REPOSITORY: RADIATION DOSE DELIVERED: All CT scans at this facility use at least one of these dose optimization techniques: automated exposure control; mA and/or kV adjustment per patient size (includes targeted e xams where dose is matched to clinical indication); or iterative reconstruction.
--- NOTE | 2022-03-26 11:42 | ED.GENADUL_ITS ---
Discharge Plan Disposition Patient Disposition: [facility] INPATIENT Discharge Details Chief Complaint: GenMedical Clinical Impression: Anemia, COPD (chronic obstructive pulmonary disease), CHF (congestive heart failure), Acute upper gastrointestinal bleeding Admit Date/Time: 03/26/22 15:33 Admit Provider: Ca Arnold Attending Provider: Ca Arnold Primary Care Provider: Desirae Panda ED Provider: Marni Cassidy Discharge Data Discharge Date/Time-TO BE ENTERED AT DEPARTURE: 03/26/22 19:42 Medical Decision Making Khoi Calero is a 36-year-old man with a history of COPD, Tineo's esophagus, A. fib, alcohol use disorder presenting to the emergency department complaining of swelling. Patient reports that over the past month he has had swelling in both of his lower legs, from his feet to his knees. Patient reports swelling is no worse than 1 leg or the other. He states that the swelling has been gradually worsening and causing him increasing pain. He reports pain in his feet and ankles worse than his lower legs. He denies any swelling above the knee, denies any pain other than in his bilateral lower legs. He also reports that he has had chronic shortness of breath that seems worse in the past few weeks. He states that shortness of breath in addition to pain in his feet/legs has prevented him from being up and about much in his home over the past 2 weeks. Patient reports that he is a current heavy drinker, but he does not experience withdrawal symptoms, and that he is a current smoker. He denies any other pain, any other swelling, cough, fever, vomiting, diarrhea, numbness, focal weakness, rash. Patient states he has been taking none of his medication. He is not prescribed any blood thinners. On exam Pt is chronically ill appearing, acutely non-toxic. No respiratory distress. Wheeze b/l on auscultation. HR 96, irregularly irregular. Pitting edema and tenderness b/l LEs. Concern for CHF, COPD, metabolic/lyte derangement, other. Doubt ACS, b/l DVT, PE. Exam/hx at this time not c/w sepsis, acute aortic pathology. Plan for EKG, IV placement, telemetry, screening labs, US b/l LEs, CXR duoneb. Will monitor and reassess. EKG okay. Labs reviewed, Hgb results at 5.1, trop elevated. Plan for 2 un PRBCs, Pt consented. Pt refuses rectal exam, denies melena, hematochezia, any known bleeding. Pt with chronic anemia, though now worse. Pt reports SOB resolved completely with duoneb. Concern for high outpt CHF, doubt troponin elevation 2/2 coronary artery disease given severe anemia. I discussed Pt presentation and results with Dr. Hodge of cardiology, who agrees with no asa/plavix/heparin at this time. Pt anxious talking on the phone with friend, noted to be in afib with RVR 120- 130s on monitor. EKG obtained, rate improved by the time EKG performed to 103, now with new TWI. Pt denies chest pain or other new symptoms. I discussed Pt presentation and results with [facility] cardiology at 1401, who viewed EKGs which were faxed. Cardiology agrees with no further cardiac intervention at this time, no heparin, recommends trend troponin. Third EKG obtained, TWI resolved. Pt admitted for severe anemia. After admission discussion Pt vomited small amount of brown emesis. Gastroccult positive. Pt states that he has had no vomiting until now for the past month. Plan for protonix, carafate, octreotide. Pt discussed with Dr. 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 Pt admitted to ICU. Medical Records Medical records reviewed: Yes I reviewed the patient's medical records. Imaging Data Radiologic Study: Attestation: I personally reviewed and interpreted this imaging study as follows: Radiologist's impression: EXAM:? XR CHEST 1V IN DI DEPT CLINICAL HISTORY: ? SOB. ? TECHNIQUE:? 2D digital imaging was performed. COMPARISON:? CR,XR XR PORTABLE CHEST AP from 01/23/2021 FINDINGS: Single AP portable view. Heart size is upper normal.? The mediastinum is not widened. Lungs are clear.? No infiltrates nor obvious pleural effusions. IMPRESSION: No acute pulmonary findings on this single AP portable view of the chest.No significant change compared to 01/23/2021 EXAM:? US EXTREMITY VENOUS BI CLINICAL HISTORY:? swelling, pain TECHNIQUE:? Grayscale, color, and doppler imaging of the deep venous system of both lower extremities was performed. COMPARISON:? US US RENAL from 08/01/2020 FINDINGS: There is no evidence of intraluminal thrombus and there is normal compression and augmentation demonstrated within the common femoral veins, femoral veins, and popliteal veins of both lower extremities. In the calves the interrogated veins also exhibit normal compression/ augmentation properties. The greater saphenous veins also appear patent as do the saphenofemoral junctions bilaterally.. IMPRESSION: 1.? No ultrasound evidence of DVT in either lower extremity. Lab Data Lab results reviewed: Yes I reviewed the patient's lab results. Labs: Laboratory Tests Range/Units 03/26/22 03/26/22 03/26/22 11:35 11:35 11:35 WBC (4.4-10.8) 10^3/uL 4.39 L RBC (4.36-5.78) 10^6/uL 2.69 L Hgb (13.5-17.5) g/dL 5.1 L* Hct (40.0-50.0) % 19.8 L* MCV (80-95) fL 74 L MCH (27.0-33.0) pg 19.0 L MCHC (32.0-36.0) % 25.8 L RDW (11.8-14.1) % 22.6 H Plt Count (130-400) 10^3/uL 154 MPV (8.0-11.0) fL 8.7 Immature Gran % 1.6 Neutrophils % 65.5 Lymphocytes % 17.1 Monocytes % 13.7 Eosinophils % 1.4 Basophils % 0.7 Nucleated RBC % (0.0-0.3) % 0.0 Absolute Neutrophils (1.2-6.7) 10^3/uL 2.88 Absolute Lymphocytes (1.2-3.4) 10^3/uL 0.75 L Absolute Monocytes (0.1-0.8) 10^3/uL 0.60 Absolute Eosinophils (0.0-0.7) 10^3/uL 0.06 Absolute Basophils (0.0-0.2) 10^3/uL 0.03 RBC Morphology See Below Hypochromasia 2+ Anisocytosis 2+ Microcytosis 2+ Sodium (136-145) mmol/L 140 Potassium (3.5-5.1) mmol/L 4.6 Chloride (98-107) mmol/L 98 Carbon Dioxide (21.0-32.0) mmol/L 14.6 L Anion Gap (3-11) mmol/L 27.4 H BUN (7-18) mg/dL 38 H Creatinine (0.70-1.30) mg/dL 1.8 H Estimated GFR/1.73 m2 (mL/min/1.73m2) 36.97 Glucose (74-106) mg/dL 84 Calcium (8.5-10.1) mg/dL 7.8 L Total Bilirubin (0.2-1.0) mg/dL 0.8 AST (15-37) U/L 88 H ALT (16-63) U/L 49 Alkaline Phosphatase (46-116) U/L 94 Troponin I (<or=60) ng/L 657 H* NT-Pro-B Natriuret Pep (<300) pg/mL 3146 H Total Protein (6.4-8.2) g/dL 6.4 Albumin (3.4-5.0) g/dL 3.5 TSH (0.36-3.74) uIU/mL 2.10 COVID-19 Source SARS-CoV-2 (PCR) (Negative) Influenza Type A (PCR) (Negative) Influenza Type B (PCR) (Negative) RSV (PCR) (Negative) Patient ABO/Rh Antibody Screen Crossmatch Range/Units 03/26/22 03/26/22 03/26/22 11:40 13:00 14:15 WBC (4.4-10.8) 10^3/uL RBC (4.36-5.78) 10^6/uL Hgb (13.5-17.5) g/dL Hct (40.0-50.0) % MCV (80-95) fL MCH (27.0-33.0) pg MCHC (32.0-36.0) % RDW (11.8-14.1) % Plt Count (130-400) 10^3/uL MPV (8.0-11.0) fL Immature Gran % Neutrophils % Lymphocytes % Monocytes % Eosinophils % Basophils % Nucleated RBC % (0.0-0.3) % Absolute Neutrophils (1.2-6.7) 10^3/uL Absolute Lymphocytes (1.2-3.4) 10^3/uL Absolute Monocytes (0.1-0.8) 10^3/uL Absolute Eosinophils (0.0-0.7) 10^3/uL Absolute Basophils (0.0-0.2) 10^3/uL RBC Morphology Hypochromasia Anisocytosis Microcytosis Sodium (136-145) mmol/L Potassium (3.5-5.1) mmol/L Chloride (98-107) mmol/L Carbon Dioxide (21.0-32.0) mmol/L Anion Gap (3-11) mmol/L BUN (7-18) mg/dL Creatinine (0.70-1.30) mg/dL Estimated GFR/1.73 m2 (mL/min/1.73m2) Glucose (74-106) mg/dL Calcium (8.5-10.1) mg/dL Total Bilirubin (0.2-1.0) mg/dL AST (15-37) U/L ALT (16-63) U/L Alkaline Phosphatase (46-116) U/L Troponin I (<or=60) ng/L 536 H* NT-Pro-B Natriuret Pep (<300) pg/mL Total Protein (6.4-8.2) g/dL Albumin (3.4-5.0) g/dL TSH (0.36-3.74) uIU/mL COVID-19 Source Nasopharynx SARS-CoV-2 (PCR) (Negative) Negative Influenza Type A (PCR) (Negative) Negative Influenza Type B (PCR) (Negative) Negative RSV (PCR) (Negative) Negative Patient ABO/Rh O Positive Antibody Screen NEGATIVE Crossmatch See Detail ECG Data Attestation: I personally reviewed and interpreted this ECG (s) as follows: Interpretation: EKG 10:40 atrial fibrillation at 95, normal axis, nonspecific ST changes, no STEMI, nondiagnostic EKG EKG 13: 27 atrial fibrillation at 103, diffuse T wave inversions, significant change from prior, no STEMI, nondiagnostic EKG EKG 14: 00 shows sinus rhythm at 100 with PACs, normal axis, ischemic changes resolved, no STEMI HPI General Mode of arrival: EMS . Date/Time Provider Initiated Documentation: 03/26/22 10:30 . Limitations to Documentation: no limitations . Information obtained by: patient, RN notes reviewed and old records reviewed . HPI Narrative: Khoi Calero is a 36-year-old man with a history of COPD, Tineo's esophagus, A. fib, alcohol use disorder presenting to the emergency department complaining of swelling. Patient reports that over the past month he has had swelling in both of his lower legs, from his feet to his knees. Patient reports swelling is no worse than 1 leg or the other. He states that the swelling has been gradually worsening and causing him increasing pain. He reports pain in his feet and ankles worse than his lower legs. He denies any swelling above the knee, denies any pain other than in his bilateral lower legs. He also reports that he has had chronic shortness of breath that seems worse in the past few weeks. He states that shortness of breath in addition to pain in his feet/legs has prevented him from being up and about much in his home over the past 2 weeks. Patient reports that he is a current heavy drinker, but he does not experience withdrawal symptoms, and that he is a current smoker. He denies any other pain, any other swelling, cough, fever, vomiting, diarrhea, numbness, focal weakness, rash. Patient states he has been taking none of his medication. He is not prescribed any blood thinners. Related Data Home Medications Medication Instructions Recorded Confirmed thiamine mononitrate (vit B1) 100 100 mg PO DAILY #30 tabs 08/30/19 03/26/22 mg tablet (Vitamin B-1 (mononitrate)) finasteride 5 mg tablet 5 mg PO DAILY #30 tabs 08/23/20 03/26/22 tamsulosin 0.4 mg capsule 0.8 mg PO DAILY #60 caps 08/23/20 03/26/22 budesonide-formoterol HFA 160 2 puff inhalation BID #10.2 grams 09/02/20 03/26/22 mcg-4.5 mcg/actuation aerosol inhaler (Symbicort) melatonin 3 mg tablet,extended 3 mg PO HS PRN Insomnia #90 tabs 09/02/20 03/26/22 release pantoprazole 40 mg tablet,delayed 40 mg PO BID #60 tabs 09/02/20 03/26/22 release artificial 1 drp ophthalmic (eye) 4-8XD PRN 11/24/20 03/26/22 tears(icqjgdx-[id number]) 0.1 %-0.3 %-0.2 % eye drops nitroglycerin 0.4 mg sublingual 0.4 mg sublingual Q5M PRN 11/24/20 03/26/22 tablet colchicine 0.6 mg capsule 0.6 mg PO DAILY gout prevention 12/15/20 03/26/22 (Mitigare) #90 caps atorvastatin 40 mg tablet 40 mg PO QHS #30 tabs 04/26/21 03/26/22 metoprolol succinate 100 mg 100 mg PO DAILY #30 tabs 04/26/21 03/26/22 tablet,extended release 24 hr Previous Rx's Medication Instructions Recorded thiamine mononitrate (vit B1) 100 100 mg PO DAILY #30 tabs 08/30/19 mg tablet (Vitamin B-1 (mononitrate)) finasteride 5 mg tablet 5 mg PO DAILY #30 tabs 08/23/20 tamsulosin 0.4 mg capsule 0.8 mg PO DAILY #60 caps 08/23/20 budesonide-formoterol HFA 160 2 puff inhalation BID #10.2 grams 09/02/20 mcg-4.5 mcg/actuation aerosol inhaler (Symbicort) melatonin 3 mg tablet,extended 3 mg PO HS PRN Insomnia #90 tabs 09/02/20 release pantoprazole 40 mg tablet,delayed 40 mg PO BID #60 tabs 09/02/20 release colchicine 0.6 mg capsule 0.6 mg PO DAILY gout prevention 12/15/20 (Mitigare) #90 caps atorvastatin 40 mg tablet 40 mg PO QHS #30 tabs 04/26/21 metoprolol succinate 100 mg 100 mg PO DAILY #30 tabs 04/26/21 tablet,extended release 24 hr Allergies Allergy/AdvReac Type Severity Reaction Status Date / Time bupropion AdvReac Severe seizures Verified 03/26/22 10:21 General Stated Complaint: GenMedical JENNA: 3 Review of Systems Narrative: Constitutional: denies fevers Eyes: denies eye pain ENT: denies ear pain, dental pain, sore throat Cardiovascular: denies chest pain, reports edema Respiratory: denies cough, reports chronic shortness of breath GI: denies abdominal pain, vomiting, diarrhea : denies flank pain MSK: denies back pain, neck pain, reports diffuse lower leg pain b/l Skin: denies rash Neuro: denies headaches, numbness, weakness PFSH All Active Problems (Updated 03/28/22 @ 23:31 by Marni Cassidy MD) Anemia (Chronic) CHF (congestive heart failure) (Chronic) Acute upper gastrointestinal bleeding (Acute) Alcohol abuse (Chronic) DVT prophylaxis (Acute) Acute kidney injury superimposed on chronic kidney disease (Acute) Hematemesis (Acute) Symptomatic anemia (Acute) NSTEMI (non-ST elevated myocardial infarction) (Acute) Acute on chronic diastolic heart failure (Acute) Discharge planning issues (Acute) Troponin level elevated (Acute) COPD (chronic obstructive pulmonary disease) (Chronic) Gout (Chronic) Colchicine prevention Sleeping difficulty (Chronic) Melatonin RX Depression (Chronic) Plans on getting connected to social work Tineo's esophagus (Chronic ~04/2019) ETOH; Upper endoscopy 03/2019 (see path report--no tineo's?, but 08/15/2019 surg note says +tineo's) Weakness (Acute) LE weakness; Home PT Urinary retention (Chronic) Dr. Ramos Tobacco abuse disorder (Chronic) Cut down 1/2PPD COPD (chronic obstructive pulmonary disease) (Chronic) Atrial fibrillation (Chronic) Paroxysmal per hospital records; not anticoagulated secondary to recurrent GI bleeds from chronic EtOH use Alcohol use disorder (Chronic) GI bleed (Chronic) Anemia (Chronic) Medical History Tineo's esophagus Depression Gastric ulcer Hematemesis Insomnia Palliative care patient [place] Radicular pain of right lower extremity Renal insufficiency Right knee pain Smoking hx UTI (urinary tract infection) Surgical History H/O esophagogastroduodenoscopy (~04/2019) Repeat on 10/26/20 [facility] [place] severe reflux esophagitis w/ non-bleeding esophageal ulcer. 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) What type of physical activity do you participate in: none Do you feel safe at home: Yes Do you feel safe in your relationship?: Yes Additional Social history: Lives alone in apartment in [facility] for past ~6 years, closest family brother Owen in [place], [place] 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[employer], 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 [place] Exam Narrative Exam Narrative: Constitutional: chronically ill bit acutely [id number]-[id number], disheveled, pleasant, conversing normally HENT: head atraumatic/normocephalic/normal inspection, mucous membranes moist Eyes: conjunctiva normal, sclera normal, pupils 3mm b/l Neck: no stridor, normal ROM, trachea midline Chest: normal inspection Resp: normal work of breathing, mild diffuse wheeze b/l on auscultation, no rales, no rhonchi Cardio: normal rate, irregularly irregular rhythm, no murmur appreciated GI: abdomen soft, non-tender, non-distended Back: normal inspection, no rash Skin: warm, dry, normal color, no rash Neuro: alert, not altered, grossly non-focal, normal tone Ext: 2+ pitting edema b/l LEs, lower legs diffusely TTP, no erythema, no crepitus Psych: normal mood, normal affect, normal behavior Course Vital Signs Vital signs: Vital Signs Temperature 36.7 C 03/26/22 10:18 Pulse 103 H 03/26/22 10:18 Respiratory Rate 18 03/26/22 10:18 Blood Pressure 110/75 03/26/22 10:18 Pulse Oximetry 96 03/26/22 10:18 Temperature 36.7 C 03/26/22 10:18 Temperature Source Temporal Artery Scan 03/26/22 10:18 Pulse 103 H 03/26/22 10:18 Respiratory Rate 18 03/26/22 10:18 Respiratory Effort 03/26/22 10:58 Respiratory Depth Normal 03/26/22 10:58 Blood Pressure 110/75 03/26/22 10:18 Blood Pressure Position Sitting 03/26/22 10:18 Pulse Oximetry 96 03/26/22 10:18 Oxygen Delivery Method Room Air 03/26/22 10:18 Oxygen Flow Rate 0 03/26/22 10:18 Pain Level 5 03/26/22 10:18 Critical Care Time Critical Care Time Critical Care Time: Yes Total Critical Care Time: 35 Attestation: I have spent greater than 35 minutes of critical care time with this critically ill patient PAWSS Have you Been Recently Intoxicated or Drunk Within the Last 30 days?: Yes Have you Ever Experienced Previous Episodes of Alcohol Withdrawal?: Unable to Obtain Have you ever Experienced Withdrawal Seizures?: No Have you ever Experienced Delirium Tremens(DT)s?: No Have you ever undergone Alcohol Rehabilitation Treatment (i.e, inpt ot outpatient treatment programs)?: Yes Have you ever Experienced Blackouts?: No Have you ever Combined Alcohol with other Downers within the last 90 days?: No Have you ever Combined Alcohol with any other Substance of Abuse during the last 90 days?: No Positive Blood Alcohol level on Presentation? [PCS.BAL]: Unable to Obtain Evidence of Increased Autonomic Activity (i.e. HR>120, tremor, sweating, agitation, nausea)?: No Result: 2
[2022-03-26 12:01] LABS: Abs Immature Grans 0.07 10^3/uL (0.0-0.06); Absolute Basophil Count 0.03 10^3/uL (0.0-0.2); Absolute Eosinophil Count 0.06 10^3/uL (0.0-0.7); Absolute Lymphocyte Count 0.75 10^3/uL (1.2-3.4); Absolute Neutrophil Count 2.88 10^3/uL (1.2-6.7); Basophils % 0.7; Eosinophils % 1.4; Immature Grans % 1.6; Lymphocytes % 17.1; MCHC 25.8 % (32.0-36.0); MCV 74 fL (80-95); MPV 8.7 fL (8.0-11.0); Monocytes % 13.7; Neutrophils % 65.5; Platelet Count 154 10^3/uL (130-400); RBC 2.69 10^6/uL (4.36-5.78); RDW 22.6 % (11.8-14.1); RDW-SD 59.2 fL; WBC 4.39 10^3/uL (4.4-10.8)
[2022-03-26 12:10] LABS: HCT 19.8 % (40.0-50.0); HGB 5.1 g/dL (13.5-17.5)
[2022-03-26 12:13] LABS: Anisocytosis 2+; Diff Comment RBC Morph Reviewed; Hypochromasia 2+; Microcytosis 2+
[2022-03-26 12:26] LABS: NT-proBNP 3146 pg/mL (<300)
[2022-03-26 12:28] LABS: Troponin I 657 ng/L (<or=60)
[2022-03-26 12:41] LABS: COVID-19 PCR Negative (Negative); Influenza A PCR Negative (Negative); Influenza B PCR Negative (Negative); RSV PCR Negative (Negative)
[2022-03-26 13:02] LABS: Source Nasopharynx
--- NOTE | 2022-03-26 13:15 | RT.EKG_ITS ---
APPROVED REPORT Exam: Resting ECG Reason for Exam: tachycardia Patient Location: E HR:100 bpm ECG Measurements Heart Rate 100 AXIS IA 110 P 0 QRSd 93 QRS 64 QT 386 T 75 QTc 483 Conclusion Sinus rhythm...normal P axis, V-rate 60- 99 Atrial premature complexes in couplets...pair SV complexes w/ short R-R Low voltage, extremity leads...all extremity leads <0.5mV Consider anteroseptal infarct...Q >30mS, dimin R, V1-V2 sinus rhythm at 100 with PACs, normal axis, ischemic changes resolved, no STEMI
--- NOTE | 2022-03-26 13:15 | RT.EKG_ITS ---
APPROVED REPORT Exam: Resting ECG Reason for Exam: Tachycardia Patient Location: E HR:103 bpm ECG Measurements Heart Rate 103 AXIS VT 172 P 145 QRSd 82 QRS 61 QT 304 T 259 QTc 399 Conclusion Sinus tachycardia with irregular rate...V-rate 84-123, variation>10% Low voltage, extremity leads...all extremity leads <0.5mV Repol abnrm suggests ischemia, diffuse leads...ST-T neg, ant/lat/inf atrial fibrillation at 103, diffuse T wave inversions, significant change from prior, no STEMI, nondi agnostic EKG
--- NOTE | 2022-03-26 13:44 | NUR.NOTE ---
Nursing Note: Patient states he does not take any home meds, offered to call caregiver to confirm, patient refused to give us number.
[2022-03-26 13:46] LABS: ALT 49 U/L (16-63); AST 88 U/L (15-37); Albumin 3.5 g/dL (3.4-5.0); Alkaline Phosphatase 94 U/L (46-116); Anion Gap 27.4 mmol/L (3-11); BUN 38 mg/dL (7-18); Bilirubin, Total 0.8 mg/dL (0.2-1.0); CO2 14.6 mmol/L (21.0-32.0); CREATININE 1.8 mg/dL (0.70-1.30); Calcium 7.8 mg/dL (8.5-10.1); Chloride 98 mmol/L (98-107); Estimated GFR 36.97 (mL/min/1.73m2); Glucose 84 mg/dL (74-106); Potassium 4.6 mmol/L (3.5-5.1); Sodium 140 mmol/L (136-145); Total Protein 6.4 g/dL (6.4-8.2)
[2022-03-26] MEDS: Ondansetron 4 MG/2 ML VIAL IVP (14:59)
[2022-03-26] MEDS: Octreotide 100 MCG/ML VIAL 50 MCG IVP (15:09)
[2022-03-26] MEDS: Pantoprazole 40 MG VIAL 80 MG IVP (15:10)
[2022-03-26] MEDS: Sucralfate 1 GM TAB PO ×2 (15:26→22:31)
[2022-03-26 15:35] LABS: Troponin I 536 ng/L (<or=60)
--- NOTE | 2022-03-26 15:37 | HPE_ITS ---
Date of service: 03/26/22 Time of Service: 15:20 Assessment and Plan Assessment and plan (1) Acute on chronic diastolic heart failure: Status: Acute Assessment and plan: In setting of medication noncompliance, episodes of rapid Afib, anemia. Will diurese, monitoring I/Os and daily weights. check echo. (2) Hematemesis: Status: Acute Assessment and plan: No h/o varices per two EGDs in the last 2 years. Will treat with IV protonix and carafate. I did not continue octreotide since I have no evidence the patient has varices. Will trend serial H/Hs. NPO. Surgical consult. (3) Symptomatic anemia: Status: Acute Assessment and plan: s/p transfusion of 2 units of pRBCS. Monitor H/H. Check Hematest (expect to be positive). (4) NSTEMI (non-ST elevated myocardial infarction): Status: Acute Assessment and plan: In setting of acute anemia, EKG changes are essentially meaningless. Will need to be reassessed once H/H has stabilized. (5) COPD (chronic obstructive pulmonary disease): Status: Chronic Assessment and plan: Not in acute exacerbation on my exam. Will ensure prn nebs are available. Patient is not taking any medications. (6) Acute kidney injury superimposed on chronic kidney disease: Status: Acute Assessment and plan: h/o urinary retention. I have ordered a murry catheter - but if the patient refuses, would need to have bladder scans. Benefits of diuresis outweigh risks. (7) Alcohol abuse: Status: Chronic Assessment and plan: Not currently withdrawing. Will monitor for signs/symptoms of withdrawal. Will provide thiamine, MVI. Check B12/folate. (8) Discharge planning issues: Status: Acute Assessment and plan: Full code per my conversation with the patient This is confirmed with a COLST form on file. Palliative care patient - will consult. Consult PT. (9) DVT prophylaxis: Status: Acute Assessment and plan: TEDs. Chemical DVT ppx is contraindicated in acute GI bleeding, and the patient's legs would probably not tolerate SCDs due to pain. History of Present Illness History of Present Illness Chief Complaint: I couldn't walk down the stairs Narrative: Mr Calero is a 76 year old male with PMHx of Afib (not on anticoagulation due to h/o GI bleeding in the past), as well as h/o non-oxygen dependent COPD, chronic anemia, CKD III, as well as alcohol abuse, who does not take any medications, who for the last 1-2 months had been getting progressively weaker, had noted worsening swelling in his BLEs and has felt short of breath. He also notes nausea every morning. He last drank today. He denies hx of EtOH w/d. In the ED, he had a small amount of hematemesis (brown). He was found to have a Hgb of 5.1 with an elevated troponin (657 down to 536). He also was found to be in rapid Afib briefly, during which time he had new T wave inversions noted on EKG. This was reviewed with cardiology here and at [facility] - no action was recommended other than transfusing blood. Mr Calero was written for 2 units of pRBCS. He refused a rectal exam in the ED. He was started on protonix, carafate, and received a bolus of octreotide. He had an EGD in 07/2020 which showed shallow gastric ulcers and Tineo's esophagus. EGD in [facility] in 2020 showed esophagitis with a nonbleeding esophageal ulcer. There was no evidence of varices on that EGD. The patient states his stools have been brown. The patient came to the hospital today primarily because he was too weak to go down the stairs to his PCP appointment. Review of Systems All systems reviewed & are unremarkable except as noted in HPI and below PFSH All Active Problems (Updated 03/26/22 @ 20:33 by Ca Arnold MD) Alcohol abuse (Chronic) DVT prophylaxis (Acute) Acute kidney injury superimposed on chronic kidney disease (Acute) Hematemesis (Acute) Symptomatic anemia (Acute) NSTEMI (non-ST elevated myocardial infarction) (Acute) Acute on chronic diastolic heart failure (Acute) Discharge planning issues (Acute) Troponin level elevated (Acute) COPD (chronic obstructive pulmonary disease) (Chronic) Gout (Chronic) Colchicine prevention Sleeping difficulty (Chronic) Melatonin RX Depression (Chronic) Plans on getting connected to social work Tineo's esophagus (Chronic ~04/2019) ETOH; Upper endoscopy 03/2019 (see path report--no tineo's?, but 08/15/2019 surg note says +tineo's) Weakness (Acute) LE weakness; Home PT Urinary retention (Chronic) Dr. Ramos Tobacco abuse disorder (Chronic) Cut down 1/2PPD COPD (chronic obstructive pulmonary disease) (Chronic) Atrial fibrillation (Chronic) Paroxysmal per hospital records; not anticoagulated secondary to recurrent GI bleeds from chronic EtOH use Alcohol use disorder (Chronic) GI bleed (Chronic) Anemia (Chronic) Medical History (Updated 03/26/22 @ 20:33 by Ca Arnold MD) Tineo's esophagus Depression Gastric ulcer Hematemesis Insomnia Palliative care patient Dobbertin Radicular pain of right lower extremity Renal insufficiency Right knee pain Smoking hx UTI (urinary tract infection) Surgical History H/O esophagogastroduodenoscopy (~04/2019) Repeat on 10/26/20 [facility] severe reflux esophagitis w/ non-bleeding esophageal ulcer. 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) What type of physical activity do you participate in: none Do you feel safe at home: Yes Do you feel safe in your relationship?: Yes Additional Social history: Lives alone in apartment in [facility] for past ~6 years, closest family brother Owen in [place], [place] 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[place], 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 [place] Meds Allergies and Home Medications Allergies Allergy/AdvReac Type Severity Reaction Status Date / Time bupropion AdvReac Severe seizures Verified 03/26/22 10:21 Home Medications Medication Instructions Recorded Confirmed Type thiamine mononitrate (vit B1) 100 100 mg PO DAILY #30 tabs 08/30/19 03/26/22 Rx mg tablet (Vitamin B-1 (mononitrate)) finasteride 5 mg tablet 5 mg PO DAILY #30 tabs 08/23/20 03/26/22 Rx tamsulosin 0.4 mg capsule 0.8 mg PO DAILY #60 caps 08/23/20 03/26/22 Rx budesonide-formoterol HFA 160 2 puff inhalation BID #10.2 grams 09/02/20 03/26/22 Rx mcg-4.5 mcg/actuation aerosol inhaler (Symbicort) melatonin 3 mg tablet,extended 3 mg PO HS PRN Insomnia #90 tabs 09/02/20 03/26/22 Rx release pantoprazole 40 mg tablet,delayed 40 mg PO BID #60 tabs 09/02/20 03/26/22 Rx release artificial 1 drp ophthalmic (eye) 4-8XD PRN 11/24/20 03/26/22 History tears(vhmrzit-qlfmbpyz-ydyhekp) 0.1 %-0.3 %-0.2 % eye drops nitroglycerin 0.4 mg sublingual 0.4 mg sublingual Q5M PRN 11/24/20 03/26/22 History tablet colchicine 0.6 mg capsule 0.6 mg PO DAILY gout prevention 12/15/20 03/26/22 Rx (Mitigare) #90 caps atorvastatin 40 mg tablet 40 mg PO QHS #30 tabs 04/26/21 03/26/22 Rx metoprolol succinate 100 mg 100 mg PO DAILY #30 tabs 04/26/21 03/26/22 Rx tablet,extended release 24 hr Allergy/Medication Comments:: The patient states he is not actually taking any home medications at this time. Exam Narrative Exam Narrative: General: Pleasant somewhat disheleved appearing elderly male who looks pale, A&Ox3, laying comfortably in bed Neurological: A&Ox3, no focal deficits Psychiatric: Appropriate speech pattern/content Skin: Pale skin HEENT: Atraumatic, normocephalic, EOMI, MMM, clear oropharynx, no submandibular or cervical lymphadenopathy, no goiter or JVD Cardiovascular: RRR, no m/r/g Lungs: Coarse breath sounds B Gastrointestinal: soft, nontender, nondistended Genitourinary: deferred (and the patient refused rectal exam) Extremities: 2+ BLE edema with TTP, no c/c; no lesions on B feet Results Imaging Additional studies: EKG#3: ST, HR 100, no acute ischemia EKG #2: Afib vs sinus arrhythmia, HR 103, inferolateral ST depressions EKG #1; Aflutter, Hr 95, no acute ischemia, nonspecific ST-T changes. CXR: No acute pulmonary findings on this single AP portable view of the chest.No significant change compared to 01/23/2021 US venous BLE's: 1.? No ultrasound evidence of DVT in either lower extremity. Labs Result diagrams: 03/26/22 11:35 03/26/22 11:35 Labs: Laboratory Results - last 24 hr 03/26/22 03/26/22 03/26/22 11:35 11:35 11:35 WBC 4.39 L RBC 2.69 L Hgb 5.1 L* Hct 19.8 L* MCV 74 L MCH 19.0 L MCHC 25.8 L RDW 22.6 H Plt Count 154 MPV 8.7 Immature Gran % 1.6 Neutrophils % 65.5 Lymphocytes % 17.1 Monocytes % 13.7 Eosinophils % 1.4 Basophils % 0.7 Nucleated RBC % 0.0 Absolute Neutrophils 2.88 Absolute Lymphocytes 0.75 L Absolute Monocytes 0.60 Absolute Eosinophils 0.06 Absolute Basophils 0.03 RBC Morphology See Below Hypochromasia 2+ Anisocytosis 2+ Microcytosis 2+ Sodium 140 Potassium 4.6 Chloride 98 Carbon Dioxide 14.6 L Anion Gap 27.4 H BUN 38 H Creatinine 1.8 H Estimated GFR/1.73 m2 36.97 Glucose 84 Calcium 7.8 L Total Bilirubin 0.8 AST 88 H ALT 49 Alkaline Phosphatase 94 Troponin I 657 H* NT-Pro-B Natriuret Pep 3146 H Total Protein 6.4 Albumin 3.5 TSH 2.10 COVID-19 Source SARS-CoV-2 (PCR) Influenza Type A (PCR) Influenza Type B (PCR) RSV (PCR) Patient ABO/Rh Antibody Screen Crossmatch 03/26/22 03/26/22 03/26/22 11:40 13:00 14:15 WBC RBC Hgb Hct MCV MCH MCHC RDW Plt Count MPV Immature Gran % Neutrophils % Lymphocytes % Monocytes % Eosinophils % Basophils % Nucleated RBC % Absolute Neutrophils Absolute Lymphocytes Absolute Monocytes Absolute Eosinophils Absolute Basophils RBC Morphology Hypochromasia Anisocytosis Microcytosis Sodium Potassium Chloride Carbon Dioxide Anion Gap BUN Creatinine Estimated GFR/1.73 m2 Glucose Calcium Total Bilirubin AST ALT Alkaline Phosphatase Troponin I 536 H* NT-Pro-B Natriuret Pep Total Protein Albumin TSH COVID-19 Source Nasopharynx SARS-CoV-2 (PCR) Negative Influenza Type A (PCR) Negative Influenza Type B (PCR) Negative RSV (PCR) Negative Patient ABO/Rh O Positive Antibody Screen NEGATIVE Crossmatch See Detail Last Vital Signs Temp 36.3 C L 03/26/22 14:19 Pulse 82 03/26/22 15:23 Resp 19 03/26/22 15:23 BP 147/75 H 03/26/22 15:23 Pulse Ox 100 03/26/22 15:23 PAWSS Have you Been Recently Intoxicated or Drunk Within the Last 30 days?: Yes Have you Ever Experienced Previous Episodes of Alcohol Withdrawal?: Unable to Obtain Have you ever Experienced Withdrawal Seizures?: No Have you ever Experienced Delirium Tremens(DT)s?: No Have you ever undergone Alcohol Rehabilitation Treatment (i.e, inpt ot outpatient treatment programs)?: Yes Have you ever Experienced Blackouts?: No Have you ever Combined Alcohol with other Downers within the last 90 days?: No Have you ever Combined Alcohol with any other Substance of Abuse during the last 90 days?: No Positive Blood Alcohol level on Presentation? [PCS.BAL]: Unable to Obtain Evidence of Increased Autonomic Activity (i.e. HR>120, tremor, sweating, agitation, nausea)?: No Result: 2
[2022-03-26 16:42] LABS: Prothrombin Time 10.2 sec (9.3-11.0)
[2022-03-26] MEDS: Furosemide 20 MG/2 ML VIAL IVP (18:46)
[2022-03-26 19:49] LABS: Bilirubin Negative (Negative); Blood Trace-lysed (Negative); Clarity Clear (Clear); Glucose Negative (Negative); Ketones 40 mg/dL (Negative); Leukocyte Esterase Small (Negative); Nitrite Negative (Negative); Urobilinogen 0.2 EU/dL (Up TO 0.2); pH 5.5 (5-8)
[2022-03-26 20:00] LABS: Epithelial Cells Rare HPF (Negative); RBC 0-2 HPF (0-2); WBC 0-2 HPF (0-5)
[2022-03-26 20:01] LABS: Bacteria Rare HPF (Negative); C & S Indicated? Yes; Casts 5-10 Hyaline LPF (Negative); Crystals Negative HPF (Negative); Mucus Trace (Negative)
[2022-03-26 21:28] LABS: HCT 29.6 % (40.0-50.0); HGB 8.7 g/dL (13.5-17.5); Lactate 1.5 mmol/L (0.6-1.4)
[2022-03-26 22:02] LABS: Troponin I 443 ng/L (<or=60)
[2022-03-27] VITALS (88 sets, daily range): BP systolic 103–151; BP diastolic 56–97; PULSE 60–126; RESP 12–24; TEMP 36.4–36.9; O2SAT 81–100
--- NOTE | 2022-03-27 | DI.US_ITS ---
APPROVED REPORT EXAM: Comprehensive 2D, Doppler, and color-flow Echocardiogram Patient Location: In-Patient Room/Bed: GYB996 Financial Aid Director: Joyce Polanco RDCS (AE) Indications: NSTEMI, COPD Other Information Study Quality: Fair. Technically limited study due to body habitus, inability to position patient exa m done supine bedside icu. Conclusion Technically limited study Patient was in atrial fibrillation throughout, rate controlled Left ventricle is grossly normal in size and mildly reduced and systolic function. Estimated ejectio n fraction is 45-50%. There is global hypokinesis. No segmental wall motion abnormalities were appr eciated The atria were not well visualized Aortic valve is sclerotic without stenosis or regurgitation Within the limits of the study there was no additional structural or hemodynamically significant valv ular disease Estimated right ventricular systolic pressure was 29 mmHg Wall motion Left Ventricle The left ventricle is normal size. Left ventricular systolic function is mildly decreased. There is n ormal left ventricular wall thickness. There is global hypokinesis of the left ventricle. There is no ventricular septal defect visualized. LVEF is 45-50%. Right Ventricle Right ventricle is grossly normal in size. Right ventricular systolic function is grossly normal. The RVSP is 29.2 mmHg. Atria Left atrium is not well visualized. Right atrium is not well visualized. The interatrial septum is in tact with no evidence for an atrial septal defect. Aortic Valve The Aortic valve is sclerotic. There is no aortic valvular stenosis. No aortic regurgitation is prese nt. Mitral Valve The mitral valve is normal in structure. No evidence of mitral valve stenosis. Trace to mild mitral r egurgitation. Tricuspid Valve The tricuspid valve is normal in structure. There is no tricuspid valve stenosis. Trace tricuspid reg urgitation. Pulmonic Valve Pulmonic valve is not well visualized. There is no pulmonic valvular stenosis. There is no pulmonic v alvular regurgitation. Great Vessels The aortic root is normal in size. Ascending aorta is not well visualized. Ascending aorta is not wel l visualized. IVC is normal in size and collapses >50% with inspiration. Pericardium There is no pericardial effusion. 2D Dimensions IVSD d PLAX 0.94 cm M: 0.6-1.2 LVPW d PLAX 0.93 cm M: 0.6 - 1.2 LVID d PLAX 4.87 cm M: 4.2 - 5.8 LVDs 3.75 cm M: 2.5 - 4.0 Ao Root d 2.56 cm M: 3.1 - 3.7 LV EF Carlosichkarla 45.5 % FS 22.65 % LV Diastology MV E' medial 0.103 (>0.07 m/s) E/A Ratio 1.0 LV E/e MED 4.55 (<14) MV E Vmax 0.47 (0.4-1.3 m/s) MV E' lateral 0.091 (>0.1 m/s) MV A Vmax 0.45 (0.4-1.3 m/s) LV E/e LAT 5.10 (<14) MV E/A Ratio 0.98 MV E/E' medial 4.57 MV E/E' lateral 5.14 Aortic Valve LVOT Area 3.08 cm2 AoV Area Vmax 1.87 cm2 LVOT Vmax 0.87 m/s AoV Area/ BSA (Vmax) 1.03 cm2/m2 LVOT Mean Nils. 0.62 m/s MILDRED Mean Nils. 1.92 cm2 LVOT Peak Grad 3.0 mmHg MILDRED Mean Nils. Index 1.06 cm2/m2 LVOT Mean Grad 1.7 mmHg LVOT VTI 0.168 m LVOT Diam s 1.95 cm AoV Vmax 1.43 m/s Velocity Ratio 0.60 AoV Mean Nils. 1.00 m/s AoV Peak Grad 8.2 mmHg LVOT SV 51.75 mL AoV Mean Grad 4.5 mmHg AoV VTI 0.303 m AoV Area VTI 1.71 cm2 AoV Area/ BSA (VTI) 0.94 cm/m2 Mitral Valve MV DT 284 (160-240 msec) MV PHT 82 msec MV Area PHT 2.67 cm2 MV VTI 0.197 m MV Area VTI 2.63 (4.0-6.0 cm2) Pulmonary Valve PV Vmax 0.93 (0.5-1.5 m/s) RVOT Peak Gr. 0.16 mmHg PV Peak Grad 3.5 mmHg RVOT Mean Gr. 0.10 mmHg PV Mean Grad 2.0 mmHg RVOT VTI 0.031 m PV VTI 0.194 m RVOT Vmax 0.20 m/s Tricuspid Valve TR Peak Grad 26.1 mmHg TR Vmax 2.56 m/s RA Pressure 3.00 mmHg RVSP (TR) 29.2 mmHg
[2022-03-27] MEDS: Sucralfate 1 GM TAB PO ×4 (04:47→21:03)
[2022-03-27] MEDS: Pantoprazole 40 MG VIAL 80 MG IVP ×2 (04:47→16:03)
[2022-03-27 06:34] LABS: Abs Immature Grans 0.06 10^3/uL (0.0-0.06); Absolute Basophil Count 0.03 10^3/uL (0.0-0.2); Absolute Eosinophil Count 0.07 10^3/uL (0.0-0.7); Absolute Lymphocyte Count 0.64 10^3/uL (1.2-3.4); Absolute Monocyte Count 0.56 10^3/uL (0.1-0.8); Absolute Neutrophil Count 2.85 10^3/uL (1.2-6.7); Basophils % 0.7; Eosinophils % 1.7; HCT 27.6 % (40.0-50.0); HGB 8.2 g/dL (13.5-17.5); Immature Grans % 1.4; Lymphocytes % 15.2; MCH 23.1 pg (27.0-33.0); MCHC 29.7 % (32.0-36.0); MCV 78 fL (80-95); MPV 8.9 fL (8.0-11.0); Monocytes % 13.3; Neutrophils % 67.7; Platelet Count 140 10^3/uL (130-400); RBC 3.55 10^6/uL (4.36-5.78); RDW 22.7 % (11.8-14.1); RDW-SD 64.6 fL; WBC 4.21 10^3/uL (4.4-10.8)
[2022-03-27 06:49] LABS: Anisocytosis 2+; Diff Comment RBC Morph Reviewed
[2022-03-27 06:53] LABS: BUN 32 mg/dL (7-18); CREATININE 1.5 mg/dL (0.70-1.30); Calcium 7.5 mg/dL (8.5-10.1); Chloride 99 mmol/L (98-107); Estimated GFR 45.62 (mL/min/1.73m2); Glucose 121 mg/dL (74-106); Magnesium 1.2 mg/dL (1.8-2.4); PHOSPHORUS 2.2 mg/dL (2.6-4.7); Potassium 4.4 mmol/L (3.5-5.1); Sodium 138 mmol/L (136-145)
[2022-03-27 08:17] LABS: Lab Add On Test DONE
[2022-03-27] MEDS: Furosemide 20 MG/2 ML VIAL IVP ×2 (08:18→16:08)
[2022-03-27] MEDS: Thiamine 100 MG TAB PO (08:19)
[2022-03-27] MEDS: Multivitamin TAB 1 TAB PO (08:19)
[2022-03-27] MEDS: Normal Saline Flush 10 ML SYR IVP (08:19)
[2022-03-27 08:59] LABS: Folate 3.5 ng/mL (8.6-20.0); Vitamin B12 284 pg/mL (193-986)
[2022-03-27] MEDS: MAGNESIUM SULFATE 4 GM/100 ML BAG IVPB (09:19)
[2022-03-27] MEDS: Cyanocobalamin 1000 MCG/ML VIAL IM/SC (09:19)
--- NOTE | 2022-03-27 10:21 | IN_ITS ---
PT Notes Visit Reasons: Upper GI Bleeding,Symptomatic Anemia,CHF, Inpatient Physical Therapy Evaluation Date: 03/27/2022 Referring Doctor: Ca Arnold MD PT Orders: PT CONSULT: Limited ability Precautions: Fall precaution Patient Profile/Admitting Diagnosis: 76-year-old male admitted yesterday with acute on chronic diastolic heart failure, hematemesis, and anemia PMHX: All Active Problems?(Updated 03/26/22 @ 20:33 by Ca Arnold MD) Alcohol abuse (Chronic) DVT prophylaxis (Acute) Acute kidney injury superimposed on chronic kidney disease (Acute) Hematemesis (Acute) Symptomatic anemia (Acute) NSTEMI (non-ST elevated myocardial infarction) (Acute) Acute on chronic diastolic heart failure (Acute) Discharge planning issues (Acute) Troponin level elevated (Acute) COPD (chronic obstructive pulmonary disease) (Chronic) Gout (Chronic) Colchicine preventionSleeping difficulty (Chronic) Melatonin RXDepression (Chronic) Plans on getting connected to social workBarrett's esophagus (Chronic ~04/2019) ETOH; Upper endoscopy 03/2019 (see path report--no tineo's?, but 08/15/2019 surg note says +tineo's)Weakness (Acute) LE weakness; Home PTUrinary retention (Chronic) Dr. Zapata abuse disorder (Chronic) Cut down 1/2PPDCOPD (chronic obstructive pulmonary disease) (Chronic) Atrial fibrillation (Chronic) Paroxysmal per hospital records; not anticoagulated secondary to recurrent GI bleeds from chronic EtOH useAlcohol use disorder (Chronic) GI bleed (Chronic) Anemia (Chronic) Medical History?(Updated 03/26/22 @ 20:33 by Ca Arnold MD) Tineo's esophagus Depression Gastric ulcer Hematemesis Insomnia Palliative care patient DobbertinRadicular pain of right lower extremity Renal insufficiency Right knee pain Smoking hx UTI (urinary tract infection) Surgical History? H/O esophagogastroduodenoscopy (~04/2019) [place] [facility] w/ non-bleeding esophageal ulcer. 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 He has railings on the stairway. He states he has not been out of his apartment for over a month due to his inability to climb the stairs. He has a factory focus technician twice per week who purchases groceries etc. He has not bathed or changes close in the past month. He states he is able to walk short distances from his bed to the chair and kitchen stabilize himself on furniture. He makes meals for himself Current Functional Limitations: Difficult to access due to his refusal Equipment Owned/DME: No adaptive equipment Subjective: Complains of generalized weakness and continuous discomfort throughout his lower legs Objective: General Observation: Lying in bed comfortably, initially conversive and then refusing request for mobilization Mental Status: Alert and oriented x3 Pain: Continue discomfort throughout the lower legs in a stocking glove distribution which increases with movement. He rates his discomfort as a 5/10 on a VAS Vital Signs: His resting pulse is 85 bpm and blood pressure is 123/62 ROM: He has pain-free functional range of motion of his articular structures other than his left shoulder which is limited to approximately 100 degrees of flexion and 45 degrees of external rotation. Strength: Has full volitional movement throughout and strength is generally rated +3/5 in the lower extremities, and 4/5 in the upper extremities. I did not isolate the rotator cuff of his left shoulder though Neuro: Reflexes were not tested, has full motor control, and sensations intact to light touch and proprioception Bed Mobility/Transfers: Refused to roll in bed or sit up Gait: Refused Balance: Unable to assess due to patient's refusal to sit or stand Special Tests: Mobility Limitations Standardized Measure [facility]-PAC 6 clicks Basic Mobility Inpatient Short Form: Raw Score: 6 standardized Score: 4.57 CMS Score: 100% Informed Consent/Education: Patient instructed in purpose of PT consult and plan of care. Assessment: Patient is a 76year old male referred to physical therapy services with the diagnosis of with diastolic heart failure, hematemesis and anemia. Patient presents with clinical signs and symptoms consistent with this diagnosis, and was difficult to assess his physical capabilities due to his refusal. We will attempt to get a better idea on his functional status later today. Patient is assessed as a High 46759 complexity based on the following: History: See comorbidities and social history Examination: See above for functional imitations impairments Presentation: Unstable Decision Making: High complexity based on his clinical findings and refusal to comply Goals: Goals X1 week 1. Supine-Sit independent 2. Sit-Supine independent 3. Sit-Stand independent 4. Stand-Sit independent 5. Bed-Chair independent 6. Chair-Bed independent 7. Gait ambulate 20 feet with FWW and contact guarding 8. Stairs independent with stair climbing with a railing Plan of Care/Treatment Plan: 1-2x/day, 7 days/week x 1 week. Plan of care has been reviewed with the VOIP NETWORK ENGINEER providing the service under Physical Therapy direction. Initiate Physical Therapy intervention for strengthening, bed mobility, transfers, gait, stairs, balance training, use of assistive device. DISCHARGE RECOMMENDATIONS: Difficult to determine at the current time to the patient's uncooperative request for functional assessment. Based on his description of his activity level of the past month, he may need SNF for continued rehabilitation. Hopefully, we will have a better idea over the next couple days TREATMENT CODE/TIME: 9716 3/45 minutes Disclaimer: This note was created using [facility] voice recognition software. It was reviewed for major content. However, there may be multiple small discrepancies and errors due to the voice recognition aspects of the software.
--- NOTE | 2022-03-27 13:00 | RT.EKG_ITS ---
APPROVED REPORT Exam: Resting ECG Reason for Exam: rhythm change Patient Location: I HR:90 bpm ECG Measurements Heart Rate 90 AXIS OH [id number] P [id number] QRSd 62 QRS -14 QT 329 T -89 QTc 403 Conclusion Atrial fibrillation...V-rate 71-101, irreg A-activity Low voltage, extremity leads...all extremity leads <0.5mV Nondiagnostic ST-T abnormalities
--- NOTE | 2022-03-27 13:04 | W.SURGCON ---
Documented by User: MARISELA Cm 03/27/22 13:16 Date of service: 03/27/22 Time of Service: 13:04 Assessment and Plan Assessment and plan (1) Alcohol abuse: Status: Chronic (2) Hematemesis: Status: Acute Assessment and plan: Single episode in the ER. Has not recurred. Recommended serial H/H to monitor. H/H Stable since receiving units of pRBCs. Denies any abdominal pain, nausea or vomiting since admission. Patient has had 2 EGDs in the past 2 years (here at [facility] and [facility] Treat with IV protonix and caratate. Start clear liquid diet, advance as tolerated per hospitalist. Do not recommend repeat EGD at this time. If patient has a drop in H/H or hematemesis returns please re-consult to discuss proceeding with EGD. (3) Tineo's esophagus: (4) Gastric ulcer: (5) Smoking hx: History of Present Illness Narrative: 76-year-old male with past medical history of A. fib COPD, chronic anemia, CKD III and EtOH abuse presented to the ER with complaints of progressive weakness, shortness of breath and nausea. Patient did have a single episode of hematemesis in the ER. Patient denies any abdominal pain, nausea or vomiting afternoon. Patient states that he simply needs to drink water. Patient has not vomited since the ER yesterday evening. Patient reports drinking half to a full fifth per day of alcohol. PFSH All Active Problems (Updated 03/26/22 @ 20:33 by Ca Arnold MD) Alcohol abuse (Chronic) DVT prophylaxis (Acute) Acute kidney injury superimposed on chronic kidney disease (Acute) Hematemesis (Acute) Symptomatic anemia (Acute) NSTEMI (non-ST elevated myocardial infarction) (Acute) Acute on chronic diastolic heart failure (Acute) Discharge planning issues (Acute) Troponin level elevated (Acute) COPD (chronic obstructive pulmonary disease) (Chronic) Gout (Chronic) Colchicine prevention Sleeping difficulty (Chronic) Melatonin RX Depression (Chronic) Plans on getting connected to social work Tineo's esophagus (Chronic ~04/2019) ETOH; Upper endoscopy 03/2019 (see path report--no tineo's?, but 08/15/2019 surg note says +tineo's) Weakness (Acute) LE weakness; Home PT Urinary retention (Chronic) Dr. Ramos Tobacco abuse disorder (Chronic) Cut down 1/2PPD COPD (chronic obstructive pulmonary disease) (Chronic) Atrial fibrillation (Chronic) Paroxysmal per hospital records; not anticoagulated secondary to recurrent GI bleeds from chronic EtOH use Alcohol use disorder (Chronic) GI bleed (Chronic) Anemia (Chronic) Medical History (Updated 03/26/22 @ 20:33 by Ca Arnold MD) Tineo's esophagus Depression Gastric ulcer Hematemesis Insomnia Palliative care patient Dobbertin Radicular pain of right lower extremity Renal insufficiency Right knee pain Smoking hx UTI (urinary tract infection) Surgical History H/O esophagogastroduodenoscopy (~04/2019) Repeat on 10/26/20 [facility] [place] severe reflux esophagitis w/ non-bleeding esophageal ulcer. 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) What type of physical activity do you participate in: none Do you feel safe at home: Yes Do you feel safe in your relationship?: Yes Additional Social history: Lives alone in apartment in [facility] for past ~6 years, closest family brother Owen in [place], [place] 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[employer], 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[place] Exam Const General: cooperative and comfortable Orientation: alert and oriented x3 Resp Effort & Inspection: normal respiratory effort, no audible wheezes and no cough GI Inspection: normal to inspection Palpation: soft, no guarding and tender in the epigastrum Results Last Vital Signs Temp 36.8 C 03/27/22 07:51 Pulse 80 03/27/22 12:01 Resp 20 03/27/22 12:01 BP 119/65 03/27/22 12:01 Pulse Ox 97 03/27/22 12:01 Labs Result diagrams: 03/27/22 05:41 03/27/22 05:41 Labs: Laboratory Results - last 24 hr 03/26/22 03/26/22 03/26/22 11:35 13:00 14:15 WBC RBC Hgb Hct MCV MCH MCHC RDW Plt Count MPV Immature Gran % Neutrophils % Lymphocytes % Monocytes % Eosinophils % Basophils % Nucleated RBC % Absolute Neutrophils Absolute Lymphocytes Absolute Monocytes Absolute Eosinophils Absolute Basophils RBC Morphology Anisocytosis PT INR VBG Lactate Sodium 140 Potassium 4.6 Chloride 98 Carbon Dioxide 14.6 L Anion Gap 27.4 H BUN 38 H Creatinine 1.8 H Estimated GFR/1.73 m2 36.97 Glucose 84 Calcium 7.8 L Phosphorus Magnesium Total Bilirubin 0.8 AST 88 H ALT 49 Alkaline Phosphatase 94 Troponin I 536 H* Total Protein 6.4 Albumin 3.5 Vitamin B12 Folate Urine Color Urine Clarity Urine pH Ur Specific [place] Urine Protein Urine Ketones Urine Blood Urine Nitrite Urine Bilirubin Urine Urobilinogen Ur Leukocyte Esterase Urine RBC Urine WBC Ur Epithelial Cells Urine Crystals Urine Bacteria Urine Casts Urine Mucus Ur Culture Indicated? Urine Glucose Add-On Test Request Patient ABO/Rh O Positive Antibody Screen NEGATIVE Crossmatch See Detail 03/26/22 03/26/22 03/26/22 15:35 19:36 21:14 WBC RBC Hgb Hct MCV MCH MCHC RDW Plt Count MPV Immature Gran % Neutrophils % Lymphocytes % Monocytes % Eosinophils % Basophils % Nucleated RBC % Absolute Neutrophils Absolute Lymphocytes Absolute Monocytes Absolute Eosinophils Absolute Basophils RBC Morphology Anisocytosis PT 10.2 INR 1.0 VBG Lactate 1.5 H Sodium Potassium Chloride Carbon Dioxide Anion Gap BUN Creatinine Estimated GFR/1.73 m2 Glucose Calcium Phosphorus Magnesium Total Bilirubin AST ALT Alkaline Phosphatase Troponin I Total Protein Albumin Vitamin B12 Folate Urine Color Yellow Urine Clarity Clear Urine pH 5.5 Ur Specific [place] 1.020 Urine Protein Negative Urine Ketones 40 H Urine Blood Trace-lysed H Urine Nitrite Negative Urine Bilirubin Negative Urine Urobilinogen 0.2 Ur Leukocyte Esterase Small H Urine RBC 0-2 Urine WBC 0-2 Ur Epithelial Cells Rare Urine Crystals Negative Urine Bacteria Rare Urine Casts 5-10 Hyaline Urine Mucus Trace Ur Culture Indicated? Yes Urine Glucose Negative Add-On Test Request Patient ABO/Rh Antibody Screen Crossmatch 03/26/22 03/26/22 03/27/22 21:14 21:14 05:41 WBC RBC Hgb 8.7 L D Hct 29.6 L MCV MCH MCHC RDW Plt Count MPV Immature Gran % Neutrophils % Lymphocytes % Monocytes % Eosinophils % Basophils % Nucleated RBC % Absolute Neutrophils Absolute Lymphocytes Absolute Monocytes Absolute Eosinophils Absolute Basophils RBC Morphology Anisocytosis PT INR VBG Lactate Sodium 138 Potassium 4.4 Chloride 99 Carbon Dioxide 19.0 L Anion Gap 20.0 H BUN 32 H Creatinine 1.5 H Estimated GFR/1.73 m2 45.62 Glucose 121 H Calcium 7.5 L Phosphorus 2.2 L Magnesium 1.2 L Total Bilirubin AST ALT Alkaline Phosphatase Troponin I 443 H* Total Protein Albumin Vitamin B12 Folate Urine Color Urine Clarity Urine pH Ur Specific [place] Urine Protein Urine Ketones Urine Blood Urine Nitrite Urine Bilirubin Urine Urobilinogen Ur Leukocyte Esterase Urine RBC Urine WBC Ur Epithelial Cells Urine Crystals Urine Bacteria Urine Casts Urine Mucus Ur Culture Indicated? Urine Glucose Add-On Test Request Patient ABO/Rh Antibody Screen Crossmatch 03/27/22 03/27/22 03/27/22 05:41 05:41 08:16 WBC 4.21 L RBC 3.55 L Hgb 8.2 L Hct 27.6 L MCV 78 L D MCH 23.1 L MCHC 29.7 L D RDW 22.7 H Plt Count 140 MPV 8.9 Immature Gran % 1.4 Neutrophils % 67.7 Lymphocytes % 15.2 Monocytes % 13.3 Eosinophils % 1.7 Basophils % 0.7 Nucleated RBC % 0.0 Absolute Neutrophils 2.85 Absolute Lymphocytes 0.64 L Absolute Monocytes 0.56 Absolute Eosinophils 0.07 Absolute Basophils 0.03 RBC Morphology See Below Anisocytosis 2+ PT INR VBG Lactate Sodium Potassium Chloride Carbon Dioxide Anion Gap BUN Creatinine Estimated GFR/1.73 m2 Glucose Calcium Phosphorus Magnesium Total Bilirubin AST ALT Alkaline Phosphatase Troponin I Total Protein Albumin Vitamin B12 284 Folate 3.5 L Urine Color Urine Clarity Urine pH Ur Specific [place] Urine Protein Urine Ketones Urine Blood Urine Nitrite Urine Bilirubin Urine Urobilinogen Ur Leukocyte Esterase Urine RBC Urine WBC Ur Epithelial Cells Urine Crystals Urine Bacteria Urine Casts Urine Mucus Ur Culture Indicated? Urine Glucose Add-On Test Request DONE Patient ABO/Rh Antibody Screen Crossmatch Documented by User: Madeline Mejia, 03/27/22 20:45 Assessment and Plan Assessment and plan (1) Alcohol abuse: Status: Chronic (2) Hematemesis: Status: Acute Assessment and plan: Single episode in the ER. Has not recurred. Recommended serial H/H to monitor. H/H Stable since receiving units of pRBCs. Denies any abdominal pain, nausea or vomiting since admission. Patient has had 2 EGDs in the past 2 years (here at [facility] and [facility]) Treat with IV protonix and caratate. Start clear liquid diet, advance as tolerated per hospitalist. -Hx of Barett's Repeat on 10/26/20 [facility] [place] severe reflux esophagitis w/ non-bleeding esophageal ulcer. Multiplle inflammatory appearing nodules at GE Do not recommend repeat EGD at this time. If patient has a drop in H/H or hematemesis returns please re-consult to discuss proceeding with EGD. pt tolerating po's no abdominal pain no n/v no stools BP's stable cont supportive care (3) Tineo's esophagus: (4) Gastric ulcer: (5) Smoking hx: PFSH All Active Problems (Updated 03/26/22 @ 20:33 by Ca Arnold MD) Alcohol abuse (Chronic) DVT prophylaxis (Acute) Acute kidney injury superimposed on chronic kidney disease (Acute) Hematemesis (Acute) Symptomatic anemia (Acute) NSTEMI (non-ST elevated myocardial infarction) (Acute) Acute on chronic diastolic heart failure (Acute) Discharge planning issues (Acute) Troponin level elevated (Acute) COPD (chronic obstructive pulmonary disease) (Chronic) Gout (Chronic) Colchicine prevention Sleeping difficulty (Chronic) Melatonin RX Depression (Chronic) Plans on getting connected to social work Tineo's esophagus (Chronic ~04/2019) ETOH; Upper endoscopy 03/2019 (see path report--no tineo's?, but 08/15/2019 surg note says +tineo's) Weakness (Acute) LE weakness; Home PT Urinary retention (Chronic) Dr. Ramos Tobacco abuse disorder (Chronic) Cut down 1/2PPD COPD (chronic obstructive pulmonary disease) (Chronic) Atrial fibrillation (Chronic) Paroxysmal per hospital records; not anticoagulated secondary to recurrent GI bleeds from chronic EtOH use Alcohol use disorder (Chronic) GI bleed (Chronic) Anemia (Chronic) Medical History (Updated 06/27/22 @ 20:33 by Ca Arnold MD) Itneo's esophagus Depression Gastric ulcer Hematemesis Insomnia Palliative care patient Dobbertin Radicular pain of right lower extremity Renal insufficiency Right knee pain Smoking hx UTI (urinary tract infection) Surgical History H/O esophagogastroduodenoscopy (~04/2019) Repeat on 10/26/20 [facility] [place] severe reflux esophagitis w/ non-bleeding esophageal ulcer. 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
--- NOTE | 2022-03-27 13:53 | PT.INNT ---
Date of service: 03/27/22 Time of Service: 13:53 PT Notes Visit Reasons: Upper GI Bleeding,Symptomatic Anemia,CHF, 03/27/2022 Rufino adamantly, although pleasantly, refuses to participate in PT this afternoon. He reports extreme fatigue because he has not slept since 7 a.m. the previous day. He states that he has a lot going on and that he is far too weak to participate in PT today. He requests that I come back and check on him tomorrow.
--- NOTE | 2022-03-27 15:55 | PGE_ITS ---
Date of Service Date of service: 03/27/22 Time of Service: 15:55 Assessment and Plan Assessment and plan (1) Acute on chronic diastolic heart failure: Status: Acute Assessment and plan: In setting of medication noncompliance, episodes of rapid Afib, anemia. HR now controlled. Diuresing well with lasix 20mg IV BID. Wt has decreased. Echocardiogram with mildly reduced EF of 45-50% (in Afib during the study). Est RVSP of 29mmHg (2) Hematemesis: Status: Acute Assessment and plan: No h/o varices per two EGDs in the last 2 years. No active bleeding since admission. No hematemesis. Tolerating clear liquids. Will treat with IV protonix and carafate. Will trend serial H/Hs. NPO. Surgical consult appreciated. (3) Symptomatic anemia: Status: Acute Assessment and plan: s/p transfusion of 2 units of pRBCS. Monitor H/H: 5.1 > 8.7 > 8.2. Check Hematest (expect to be positive). (4) NSTEMI (non-ST elevated myocardial infarction): Status: Acute Assessment and plan: In setting of acute anemia, EKG changes are essentially meaningless. Will need to be reassessed once H/H has stabilized. (5) COPD (chronic obstructive pulmonary disease): Status: Chronic Assessment and plan: Not in acute exacerbation. Will ensure prn nebs are available. Patient is not taking any medications. (6) Acute kidney injury superimposed on chronic kidney disease: Status: Acute Assessment and plan: h/o urinary retention. Ordered a murry catheter - but if the patient refuses, would need to have bladder scans. Benefits of diuresis outweigh risks. Creatinine improved; 1.8 > 1.5. (7) Alcohol abuse: Status: Chronic Assessment and plan: Not currently withdrawing. Will monitor for signs/symptoms of withdrawal. PRN ativan Will provide thiamine, MVI. B12 low at 284: Will give IM dose. Folate low: 3.4. Oral supplementation. (8) Discharge planning issues: Status: Acute Assessment and plan: Full code This is confirmed with a COLST form on file. Palliative care patient - consulted Consult PT. (9) DVT prophylaxis: Status: Acute Assessment and plan: TEDs. Chemical DVT ppx is contraindicated in acute GI bleeding, and the patient's legs would probably not tolerate SCDs due to pain. Subjective Subjective Patient reports: tolerating liquids well (has no appetite for advancing diet) and afebrile; denies nausea, vomiting or shortness of breath Exam Narrative Exam Narrative: General: Lying in bed with eyes closed. Opens to verbal stimuli. Neurological: A&Ox3, no focal deficits Psychiatric: Appropriate speech pattern/content. Affect appropriate. Skin: Pale skin HEENT: sclera clear. MMM. Cardiovascular: RRR, no murmur Lungs: Coarse breath sounds B Gastrointestinal: soft, nontender, nondistended Extremities:trace - 1+ BLE edema. No calf tenderness. Objective Last Vital Signs Temp 36.9 C 03/27/22 12:20 Pulse 74 03/27/22 14:01 Resp 16 03/27/22 14:01 BP 109/67 03/27/22 14:01 Pulse Ox 97 03/27/22 14:01 Laboratory Results - last 24 hr 03/26/22 03/26/22 03/26/22 13:00 15:35 19:36 WBC RBC Hgb Hct MCV MCH MCHC RDW Plt Count MPV Immature Gran % Neutrophils % Lymphocytes % Monocytes % Eosinophils % Basophils % Nucleated RBC % Absolute Neutrophils Absolute Lymphocytes Absolute Monocytes Absolute Eosinophils Absolute Basophils RBC Morphology Anisocytosis PT 10.2 INR 1.0 VBG Lactate Sodium Potassium Chloride Carbon Dioxide Anion Gap BUN Creatinine Estimated GFR/1.73 m2 Glucose Calcium Phosphorus Magnesium Troponin I Vitamin B12 Folate Urine Color Yellow Urine Clarity Clear Urine pH 5.5 Ur Specific [place] 1.020 Urine Protein Negative Urine Ketones 40 H Urine Blood Trace-lysed H Urine Nitrite Negative Urine Bilirubin Negative Urine Urobilinogen 0.2 Ur Leukocyte Esterase Small H Urine RBC 0-2 Urine WBC 0-2 Ur Epithelial Cells Rare Urine Crystals Negative Urine Bacteria Rare Urine Casts 5-10 Hyaline Urine Mucus Trace Ur Culture Indicated? Yes Urine Glucose Negative Add-On Test Request Patient ABO/Rh O Positive Antibody Screen NEGATIVE Crossmatch See Detail 03/26/22 03/26/22 03/26/22 21:14 21:14 21:14 WBC RBC Hgb 8.7 L D Hct 29.6 L MCV MCH MCHC RDW Plt Count MPV Immature Gran % Neutrophils % Lymphocytes % Monocytes % Eosinophils % Basophils % Nucleated RBC % Absolute Neutrophils Absolute Lymphocytes Absolute Monocytes Absolute Eosinophils Absolute Basophils RBC Morphology Anisocytosis PT INR VBG Lactate 1.5 H Sodium Potassium Chloride Carbon Dioxide Anion Gap BUN Creatinine Estimated GFR/1.73 m2 Glucose Calcium Phosphorus Magnesium Troponin I 443 H* Vitamin B12 Folate Urine Color Urine Clarity Urine pH Ur Specific [place] Urine Protein Urine Ketones Urine Blood Urine Nitrite Urine Bilirubin Urine Urobilinogen Ur Leukocyte Esterase Urine RBC Urine WBC Ur Epithelial Cells Urine Crystals Urine Bacteria Urine Casts Urine Mucus Ur Culture Indicated? Urine Glucose Add-On Test Request Patient ABO/Rh Antibody Screen Crossmatch 03/27/22 03/27/22 03/27/22 05:41 05:41 05:41 WBC 4.21 L RBC 3.55 L Hgb 8.2 L Hct 27.6 L MCV 78 L D MCH 23.1 L MCHC 29.7 L D RDW 22.7 H Plt Count 140 MPV 8.9 Immature Gran % 1.4 Neutrophils % 67.7 Lymphocytes % 15.2 Monocytes % 13.3 Eosinophils % 1.7 Basophils % 0.7 Nucleated RBC % 0.0 Absolute Neutrophils 2.85 Absolute Lymphocytes 0.64 L Absolute Monocytes 0.56 Absolute Eosinophils 0.07 Absolute Basophils 0.03 RBC Morphology See Below Anisocytosis 2+ PT INR VBG Lactate Sodium 138 Potassium 4.4 Chloride 99 Carbon Dioxide 19.0 L Anion Gap 20.0 H BUN 32 H Creatinine 1.5 H Estimated GFR/1.73 m2 45.62 Glucose 121 H Calcium 7.5 L Phosphorus 2.2 L Magnesium 1.2 L Troponin I Vitamin B12 284 Folate 3.5 L Urine Color Urine Clarity Urine pH Ur Specific [place] Urine Protein Urine Ketones Urine Blood Urine Nitrite Urine Bilirubin Urine Urobilinogen Ur Leukocyte Esterase Urine RBC Urine WBC Ur Epithelial Cells Urine Crystals Urine Bacteria Urine Casts Urine Mucus Ur Culture Indicated? Urine Glucose Add-On Test Request Patient ABO/Rh Antibody Screen Crossmatch 03/27/22 08:16 WBC RBC Hgb Hct MCV MCH MCHC RDW Plt Count MPV Immature Gran % Neutrophils % Lymphocytes % Monocytes % Eosinophils % Basophils % Nucleated RBC % Absolute Neutrophils Absolute Lymphocytes Absolute Monocytes Absolute Eosinophils Absolute Basophils RBC Morphology Anisocytosis PT INR VBG Lactate Sodium Potassium Chloride Carbon Dioxide Anion Gap BUN Creatinine Estimated GFR/1.73 m2 Glucose Calcium Phosphorus Magnesium Troponin I Vitamin B12 Folate Urine Color Urine Clarity Urine pH Ur Specific [place] Urine Protein Urine Ketones Urine Blood Urine Nitrite Urine Bilirubin Urine Urobilinogen Ur Leukocyte Esterase Urine RBC Urine WBC Ur Epithelial Cells Urine Crystals Urine Bacteria Urine Casts Urine Mucus Ur Culture Indicated? Urine Glucose Add-On Test Request DONE Patient ABO/Rh Antibody Screen Crossmatch PAWSS Have you Been Recently Intoxicated or Drunk Within the Last 30 days?: Yes Have you Ever Experienced Previous Episodes of Alcohol Withdrawal?: Unable to Obtain Have you ever Experienced Withdrawal Seizures?: No Have you ever Experienced Delirium Tremens(DT)s?: No Have you ever undergone Alcohol Rehabilitation Treatment (i.e, inpt ot outpatient treatment programs)?: Yes Have you ever Experienced Blackouts?: No Have you ever Combined Alcohol with other Downers within the last 90 days?: No Have you ever Combined Alcohol with any other Substance of Abuse during the last 90 days?: No Positive Blood Alcohol level on Presentation? [PCS.BAL]: Unable to Obtain Evidence of Increased Autonomic Activity (i.e. HR>120, tremor, sweating, agitation, nausea)?: No Result: 2
--- NOTE | 2022-03-27 16:24 | PDOC.CMIN ---
- If Service Date Differs Date of service: 03/27/22 Time of Service: 16:25 Care Management Initial Assess REASON FOR HOSPITALIZATION:: Upper GI bleeding, Symptomatic anemia, CHF PAST MEDICAL HISTORY/PAST SURGICAL HISTORY:: Medical History (Updated 03/26/22 @ 20:33 by Ca Arnold MD). Cooper's esophagus. Depression. Gastric ulcer. Hematemesis. Insomnia. Palliative care patient. Dobbertin. Radicular pain of right lower extremity. Renal insufficiency. Right knee pain. Smoking hx. UTI (urinary tract infection). Surgical History . H/O esophagogastroduodenoscopy (~04/2019). [place] [facility] [place] esophagitis w/ non-bleeding esophageal ulcer. Multiplle inflammatory appearing nodules at [facility] PREVIOUS FUNCTIONAL STATUS/SOCIAL/FAMILY SUPPORTS:: Khoi lives alone in an apartment in [facility]. He is a of both the [employer] and [employer]. He has a brother in [facility], who is supportive of him. He also has two sons who reside in [place], but Rufino has limited contact with them. ADVANCE DIRECTIVES:: COLST on file Has patient been provided with info about the portal/API?: Yes Did the patient sign up for the portal?: No CODE STATUS:: Full Code INSURANCE COVERAGE / FINANCIAL ISSUES:: [facility]. Medicaid. Medicare PRIMARY CARE PHYSICIAN:: Desirae Panda POTENTIAL DISCHARGE NEEDS:: Follow up with PCP and plan of care, coordination of increased services if appropriate. PATIENT/FAMILY EDUCATION NEEDS:: Review of discharge instructions, medications, limitations, follow up plan, Ask Me Three ANTICIPATED BARRIERS TO DISCHARGE:: None identified at this time. TRANSPORTATION:: Via private vehicle with a friend or RCT. PLAN:: Rufino continues to be closely monitored. He will be evaluated for need of increased services prior to discharge. He will transport via private vehicle with a friend or RCT. CM continues to follow.
[2022-03-27] MEDS: Folic Acid 1 MG TAB PO (17:10)
[2022-03-27] MEDS: Lidocaine 2% Jelly 11 ML SYR UR (17:10)
--- NOTE | 2022-03-27 18:47 | NUR.NOTE ---
Nursing Note: At 1831, the patient was brought out of ICU and is now med surg status. patient is in room 212. Patient oriented to the room and has call button in reach.
[2022-03-27] MEDS: Refresh PLUS Eye Drops 0.4ml 1 EACH OU (18:49)
[2022-03-27] MEDS: Melatonin 3 MG TAB PO (21:03)
[2022-03-28] VITALS (9 sets, daily range): BP systolic 96–145; BP diastolic 53–82; PULSE 62–91; RESP 16–21; TEMP 36.4–36.9; O2SAT 92–97
[2022-03-28] MEDS: Sucralfate 1 GM TAB PO ×4 (03:52→21:42)
[2022-03-28] MEDS: Pantoprazole 40 MG VIAL 80 MG IVP ×2 (03:53→15:08)
[2022-03-28] MEDS: Normal Saline Flush 10 ML SYR IVP ×3 (03:53→15:16)
[2022-03-28 07:37] LABS: HGB 8.3 g/dL (13.5-17.5); MCH 23.3 pg (27.0-33.0); MCHC 30.7 % (32.0-36.0); MCV 76 fL (80-95); MPV 9.4 fL (8.0-11.0); Platelet Count 151 10^3/uL (130-400); RBC 3.56 10^6/uL (4.36-5.78); WBC 3.98 10^3/uL (4.4-10.8)
[2022-03-28 07:55] LABS: ALT 32 U/L (16-63); AST 47 U/L (15-37); Alkaline Phosphatase 75 U/L (46-116); Anion Gap 7.8 mmol/L (3-11); BUN 25 mg/dL (7-18); Bilirubin, Total 1.2 mg/dL (0.2-1.0); CO2 30.2 mmol/L (21.0-32.0); CREATININE 1.4 mg/dL (0.70-1.30); Calcium 7.5 mg/dL (8.5-10.1); Chloride 95 mmol/L (98-107); Estimated GFR 49.41 (mL/min/1.73m2); Glucose 109 mg/dL (74-106); Magnesium 1.8 mg/dL (1.8-2.4); Potassium 3.4 mmol/L (3.5-5.1); Sodium 133 mmol/L (136-145); Total Protein 5.7 g/dL (6.4-8.2)
[2022-03-28 08:01] LABS: RDW 23.5 % (11.8-14.1); RDW-SD 64.1 fL
[2022-03-28] MEDS: Magnesium Oxide 400 MG TAB PO (08:14)
[2022-03-28] MEDS: Multivitamin TAB 1 TAB PO (08:14)
[2022-03-28] MEDS: Finasteride 5 MG TAB PO (08:14)
[2022-03-28] MEDS: Metoprolol CR 100 MG TABCR PO (08:14)
[2022-03-28] MEDS: Tamsulosin 0.4 MG CAPCR PO (08:14)
[2022-03-28] MEDS: Furosemide 20 MG/2 ML VIAL IVP (08:14)
[2022-03-28] MEDS: Thiamine 100 MG TAB PO (08:14)
[2022-03-28] MEDS: Folic Acid 1 MG TAB PO (08:14)
[2022-03-28] MEDS: Refresh PLUS Eye Drops 0.4ml 1 EACH OU (08:24)
--- NOTE | 2022-03-28 09:13 | CMPROGNOTE_ITS ---
- If Service Date Differs Date of service: 03/28/22 Time of Service: 09:13 Care Management Progress Note S/O:Rufino was lying in bed when CM met with him. He stated that he is very weak and cannnot possibly go home and care for himself. Rufino does not currently receive any home health services as he indicated that he feels they are not helpful. He did share with CM that he has hired a woman to help him twice a week and that has made a big difference in his ability to manage at home. Rufino st ated that he has begun to cook for himself again and does dishes and is keeping his home clean.That has been a challenge for him in the past. Clinically, Rufino is improving. His H&H have improved and he is working well with PT. A: Rufino is a 76 year old man admitted on 03/26/22 with UGI Bleed P:Rufino continues to be closely monitored. He will be evaluated for need of increased services prior to discharge. He will transport via private vehicle with a friend or RCT. CM continues to follow.
--- NOTE | 2022-03-28 11:56 | PT.INTREAT ---
Date of service: 03/28/22 Time of Service: 08:36 PT Notes Visit Reasons: Upper GI Bleeding,Symptomatic Anemia,CHF, Inpatient Physical Therapy Treatment Note [facility] Date: 03/28/2022 PRECAUTIONS: Activity as tolerated, Fall SUBJECTIVE: Khoi is hesitant, but eventually agreeable to participating in PT. He reports that he has very little energy, although feels better now that he has had some breakfast. OBJECTIVE: PAIN: No c/o pain TRANSFERS/BED MOBILITY: Supine-sit: I Sit-supine: S Sit-stand: SBA Stand-sit: SBA Bed-chair: SBA Chair-bed: SBA GAIT: Assistive device: FWW Weight bearing: Full Assist: SBA Distance: 15' + 5' in a.m.; 30' in p.m. Deviation: Slow pace, short step height and length, extended seated rest due to fatigue THEREX: Refused ASSESSMENT: Patient tolerated session with complaint of increased fatigue. He demonstrates steady gait and pacing, although short step height and length. PLAN: Continue with global strengthening and gait training for improved mobility and activity tolerance. TREATMENT CODE/TIME: Session 1: 28 minutes; 76996 x2 (08:36) Session 2: 18 minutes; [id number] (14:15)
--- NOTE | 2022-03-28 14:53 | PGE_ITS ---
Date of Service Date of service: 03/28/22 Time of Service: 14:53 Assessment and Plan Assessment and plan (1) Acute on chronic diastolic heart failure: Status: Acute Assessment and plan: In setting of medication noncompliance, episodes of rapid Afib, anemia. HR now controlled. Diuresed well with lasix 20mg IV BID. Wt has decreased. Echocardiogram with mildly reduced EF of 45-50% (in Afib during the study). Est RVSP of 29mmHg Stop IV lasix and begin daily 20mg po. (2) Hematemesis: Status: Acute Assessment and plan: No h/o varices per two EGDs in the last 2 years. No active bleeding since admission. No hematemesis. Tolerating clear liquids. Will treat with IV protonix and carafate. Will trend serial H/H: now stabilized. NPO. Surgical consult appreciated. (3) Symptomatic anemia: Status: Acute Assessment and plan: s/p transfusion of 2 units of pRBCS. Monitor H/H: 5.1 > 8.7 > 8.2 > 8.3 Check Hematest (expect to be positive). (4) NSTEMI (non-ST elevated myocardial infarction): Status: Acute Assessment and plan: In setting of acute anemia, EKG changes are essentially meaningless. Will need to be reassessed once H/H has stabilized. (5) COPD (chronic obstructive pulmonary disease): Status: Chronic Assessment and plan: Not in acute exacerbation. Will ensure prn nebs are available. Patient is not taking any medications at home for COPD. (6) Acute kidney injury superimposed on chronic kidney disease: Status: Acute Assessment and plan: h/o urinary retention. Voiding OK. Cont tamsulosin. Creatinine improved; 1.8 > 1.5>1.4. (7) Alcohol abuse: Status: Chronic Assessment and plan: Not currently withdrawing. Will monitor for signs/symptoms of withdrawal. PRN ativan Will provide thiamine, MVI. B12 low at 284: Will give IM dose. Folate low: 3.4. Oral supplementation. (8) Discharge planning issues: Status: Acute Assessment and plan: Full code This is confirmed with a COLST form on file. Palliative care patient - consulted Consult PT and OT. May need SNF placement. (9) DVT prophylaxis: Status: Acute Assessment and plan: TEDs. Chemical DVT ppx is contraindicated in acute GI bleeding, and the patient's legs would probably not tolerate SCDs due to pain. Subjective Subjective Patient reports: no new complaints, feels better, tolerating liquids well (States he would like to try regular diet) and afebrile; denies nausea, vomiting or shortness of breath Exam Narrative Exam Narrative: General: Awake, lying in bed. NAD Neurological: A&Ox3, no focal deficits Psychiatric: Appropriate speech pattern/content. Affect appropriate. Skin: No rashes. HEENT: sclera clear. MMM. Cardiovascular: RRR, no murmur Lungs: Coarse breath sounds B Gastrointestinal: soft, nontender, nondistended Extremities: No pedal edema noted today. No calf tenderness. Objective Last Vital Signs Temp 36.8 C 03/28/22 11:09 Pulse 62 03/28/22 11:09 Resp 17 03/28/22 11:09 BP 96/53 L 03/28/22 11:09 Pulse Ox 92 03/28/22 11:09 Laboratory Results - last 24 hr 03/28/22 03/28/22 06:45 06:45 WBC 3.98 L RBC 3.56 L Hgb 8.3 L Hct 27.0 L MCV 76 L MCH 23.3 L MCHC 30.7 L D RDW 23.5 H Plt Count 151 MPV 9.4 Sodium 133 L Potassium 3.4 L D Chloride 95 L Carbon Dioxide 30.2 Anion Gap 7.8 BUN 25 H Creatinine 1.4 H Estimated GFR/1.73 m2 49.41 Glucose 109 H Calcium 7.5 L Magnesium 1.8 Total Bilirubin 1.2 H AST 47 H ALT 32 Alkaline Phosphatase 75 Total Protein 5.7 L Albumin 3.0 L PAWSS Have you Been Recently Intoxicated or Drunk Within the Last 30 days?: Yes Have you Ever Experienced Previous Episodes of Alcohol Withdrawal?: Unable to Obtain Have you ever Experienced Withdrawal Seizures?: No Have you ever Experienced Delirium Tremens(DT)s?: No Have you ever undergone Alcohol Rehabilitation Treatment (i.e, inpt ot outpa tient treatment programs)?: Yes Have you ever Experienced Blackouts?: No Have you ever Combined Alcohol with other Downers within the last 90 days?: No Have you ever Combined Alcohol with any other Substance of Abuse during the last 90 days?: No Positive Blood Alcohol level on Presentation? [PCS.BAL]: Unable to Obtain Evidence of Increased Autonomic Activity (i.e. HR>120, tremor, sweating, agitation, nausea)?: No Result: 2
[2022-03-28] MEDS: Budesonide/Formoterol 160/4.5 6 GM 60 PUFF INH IH (20:03)
[2022-03-28] MEDS: Atorvastatin 40 MG TAB PO (21:42)
[2022-03-28] MEDS: Melatonin 3 MG TAB PO (21:42)
[2022-03-29] VITALS (10 sets, daily range): BP systolic 102–120; BP diastolic 61–78; PULSE 63–79; RESP 16–18; TEMP 36.6–38.2; O2SAT 94–97
[2022-03-29] MEDS: Sucralfate 1 GM TAB PO ×5 (04:25→21:40)
[2022-03-29] MEDS: Pantoprazole 40 MG VIAL 80 MG IVP (04:26)
[2022-03-29] MEDS: Budesonide/Formoterol 160/4.5 6 GM 60 PUFF INH IH ×2 (07:27→19:58)
[2022-03-29] MEDS: Colchicine 0.6 MG TAB PO (07:45)
[2022-03-29] MEDS: Normal Saline Flush 10 ML SYR IVP (07:45)
[2022-03-29] MEDS: Multivitamin TAB 1 TAB PO (07:45)
[2022-03-29] MEDS: Folic Acid 1 MG TAB PO (07:45)
[2022-03-29] MEDS: Finasteride 5 MG TAB PO (07:45)
[2022-03-29] MEDS: Furosemide 20 MG TAB PO (07:45)
[2022-03-29] MEDS: Metoprolol CR 100 MG TABCR PO (07:45)
[2022-03-29] MEDS: Tamsulosin 0.4 MG CAPCR PO (07:45)
[2022-03-29] MEDS: Magnesium Oxide 400 MG TAB PO (07:45)
[2022-03-29] MEDS: Thiamine 100 MG TAB PO (07:45)
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
--- NOTE | 2022-03-29 09:35 | OT.INIE ---
Occupational Therapy Notes Inpatient Occupational Therapy Evaluation Date: 03/29/22 Referring Doctor:Dr. Hinton OT Orders: Fall, standard, full Precautions: Non Urgent PATIENT PROFILE/ADMITTING DIAGNOSIS: Pt is a 76 year old male who was admitted to Med Surg with the following dx of anemia, CHF, acute upper gastrointestinal bleeding, alcohol abuse, SAUL, hematemesis, NSTEMI, CHF, COPD, gout, Depression, urinary retrention, hypomagnesemia, A-Fob, GI bleed. Past Medical History: All Active Problems?(Updated 03/26/22 @ 20:33 by Ca Arnold MD) Alcohol abuse (Chronic) DVT prophylaxis (Acute) Acute kidney injury superimposed on chronic kidney disease (Acute) Hematemesis (Acute) Symptomatic anemia (Acute) NSTEMI (non-ST elevated myocardial infarction) (Acute) Acute on chronic diastolic heart failure (Acute) Discharge planning issues (Acute) Troponin level elevated (Acute) COPD (chronic obstructive pulmonary disease) (Chronic) Gout (Chronic) Colchicine preventionSleeping difficulty (Chronic) Melatonin RXDepression (Chronic) Plans on getting connected to social workBarrett's esophagus (Chronic ~04/2019) ETOH; Upper endoscopy 03/2019 (see path report--no tineo's?, but 08/15/2019 surg note says +tineo's)Weakness (Acute) LE weakness; Home PTUrinary retention (Chronic) Dr. Zapata abuse disorder (Chronic) Cut down 1/2PPDCOPD (chronic obstructive pulmonary disease) (Chronic) Atrial fibrillation (Chronic) Paroxysmal per hospital records; not anticoagulated secondary to recurrent GI bleeds from chronic EtOH useAlcohol use disorder (Chronic) GI bleed (Chronic) Anemia (Chronic) Medical History?(Updated 03/26/22 @ 20:33 by Ca Arnold MD) Tineo's esophagus Depression Gastric ulcer Hematemesis Insomnia Palliative care patient DobbertinRadicular pain of right lower extremity Renal insufficiency Right knee pain Smoking hx UTI (urinary tract infection) Surgical History? H/O esophagogastroduodenoscopy (~04/2019) Repeat on 10/26/20 [facility] [place] severe reflux esophagitis w/ non-bleeding esophageal ulcer. Multiplle inflammatory appearing nodules at [facility] Social History/Home Situation: Khoi lives alone in an apartment in [facility] where he reports that he (I) at baseline with his ADL routines. He is a of both [employer]. He has a brother in [place]. He also reports that he has two sons who reside in [place], but Rufino has limited contact with them. He states that he has difficulty with some parts of his ADLs but notes that otherwise he is trying to be (I). SUBJECTIVE: Pt states that he doesn't want to do anything but he will if he has too because he just wants to be in bed. OBJECTIVE: General Observation: Telemetry, IV in (R) UE, pt requires a lot of vc for task initiation Mental Status: A&Ox3 Pain: c/o pain in back and throughout his legs ROM: RUE AROM WFL L UE AROM WFL STRENGTH: RUE 3-/5 LUE 4/5 FUNCTIONAL MOBILITY/ADLS: Transfers with FWW Supine-sit (S) Sit-supine (S) Sit-Stand (S) Stand-sit (S) BATHING sitting on shower seat Bathing UE (I) face, Mod (A) (B) UE Bathing LE max (A) (B) LE and max (A) jaquan area DRESSING sitting in shower with mod vc throughout Dressing UE Mod (A) Dressing LE Max (A) BALANCE: Static sitting Normal Dynamic Sitting Normal Static Standing Good Dynamic Standing Good SPECIAL TESTS: Daily Activity Limitations Standardized Measure [facility] AM -PAC ?6 clicks? Daily Activity Inpatient Short Form: Raw score: 12 Standardized score: 30.60 CMS score: 66.57% INFORMED CONSENT/EDUCATION: Pt instructed in purpose of OT Consult and plan of care. ASSESSMENT: Patient is a 76-year-old male referred to occupational therapy services with diagnosis of anemia, CHF, acute upper gastrointestinal bleeding, alcohol abuse, SAUL, hematemesis, NSTEMI, CHF, COPD, gout, Depression, urinary retrention, hypomagnesemia, A-Fob, GI bleed. . Patient presents with clinical signs and symptoms consistent with dx, as demonstrated by the following impairment level findings/ functional limitations: Decreased functional activity tolerance, decreased strength, impairments in ADL/IADL routines, decreased performance of ADLs in the standing position, pt states that he cannot perform anyting LE. [facility] score 12 Patient is assessed as a Moderate 48064 complexity based on the following: History: se above Examination: see functional limitations as noted above Presentation: evolving Decision Making: AMPAC score 12 GOALS Goals x1 week 1. [place]- standing at sink (I) with brushing teeth 2. Dressing (I) 3. Bathing (I) 4. Toileting (I) on toilet 5. Eating (I) PLAN OF CARE/TREATMENT PLAN: 1x/day, 5 days/ week x 1week Initiate Occupational Therapy Services for bathing, dressing, grooming, toileting, eating, transfer training. DISCHARGE RECOMMENDATIONS OT recommends SNF when medically cleared per MD. TREATMENT TIME/MINUTES/CODES 07412, [id number], 45 minutes Viji Brown OTR/L [facility] [place]
[2022-03-29 11:12] LABS: Abs Immature Grans 0.04 10^3/uL (0.0-0.06); Absolute Basophil Count 0.03 10^3/uL (0.0-0.2); Absolute Eosinophil Count 0.07 10^3/uL (0.0-0.7); Absolute Monocyte Count 0.61 10^3/uL (0.1-0.8); Basophils % 0.7; Eosinophils % 1.6; HCT 27.5 % (40.0-50.0); HGB 8.2 g/dL (13.5-17.5); Immature Grans % 0.9; Lymphocytes % 15.7; MCH 23.2 pg (27.0-33.0); MCHC 29.8 % (32.0-36.0); MCV 78 fL (80-95); MPV 9.2 fL (8.0-11.0); Monocytes % 13.7; Neutrophils % 67.4; Platelet Count 136 10^3/uL (130-400); RBC 3.53 10^6/uL (4.36-5.78); RDW 24.3 % (11.8-14.1); WBC 4.45 10^3/uL (4.4-10.8)
[2022-03-29 11:23] LABS: Diff Comment RBC Morph Reviewed; Hypochromasia 1+
[2022-03-29 12:54] LABS: Anisocytosis 2+
--- NOTE | 2022-03-29 14:49 | PDOC.CMPRO ---
- If Service Date Differs Date of service: 03/29/22 Time of Service: 14:49 Care Management Progress Note S/O: Rufino was more agreeable and engaged with therapy today, advised he would like to discharge to SNF; referrals faxed. CM requested updated insurance information from [facility] as referrals list [facility] coverage only. A: Rufino is a 76 year old man admitted on 03/26/22 with UGI Bleed P: Rufino continues to be closely monitored. He will discharge home-vs-SNF. Transport dependent on disposition. CM continues to follow.
--- NOTE | 2022-03-29 14:59 | PT.INTREAT ---
Date of service: 03/29/22 Time of Service: 08:40 PT Notes Visit Reasons: Upper GI Bleeding,Symptomatic Anemia,CHF, Inpatient Physical Therapy Treatment Note [facility] Date: 03/29/2022 PRECAUTIONS: Activity as tolerated, Fall SUBJECTIVE: Khoi is agreeable to participating in PT. He states that he doesn't have much energy, but would like to try and to do the best he can because he wants to get better and to feel better. OBJECTIVE: PAIN: Patient c/o back pain after sitting up in recliner chair for breakfast TRANSFERS/BED MOBILITY: Supine-sit: I Sit-stand: SBA Stand-sit: SBA Bed-chair: SBA Chair-bed: SBA GAIT: Assistive device: FWW Weight bearing: Full Assist: SBA Distance: 60' Deviation: Slow pace, short step height and length, extended seated rest due to fatigue ASSESSMENT: Patient ambulated to shower room to bathe, c/o mildly increased fatigue. He continues to demonstrate steady gait and pacing, although short step height and length. He also demonstrates improved activity tolerance and a willingness to participate in order to return to baseline level of function with a goal of returning to home where he lives independently. PLAN: Continue with global strengthening and gait training for improved mobility and activity tolerance. TREATMENT CODE/TIME: 15 minutes; [id number] (08:40)
[2022-03-29] MEDS: Pantoprazole 40 MG TABCR PO (19:58)
[2022-03-29] MEDS: Atorvastatin 40 MG TAB PO (21:40)
[2022-03-29] MEDS: Zolpidem 6.25 MG TABCR PO (21:40)
[2022-03-29] MEDS: Melatonin 3 MG TAB PO (21:40)
[2022-03-30] VITALS (7 sets, daily range): BP systolic 109–146; BP diastolic 59–77; PULSE 59–78; RESP 14–16; TEMP 36.3–37.2; O2SAT 95–98
--- NOTE | 2022-03-30 06:35 | W.PM.PROGNOT ---
Date of Service Date of service: 03/30/22 Time of Service: 06:35 Assessment and Plan Assessment and plan (1) Acute on chronic diastolic heart failure: Status: Acute Assessment and plan: In setting of medication noncompliance, episodes of rapid Afib, anemia. HR now controlled. Diuresed well with lasix 20mg IV BID. Wt has decreased. Echocardiogram with mildly reduced EF of 45-50% (in Afib during the study). Est RVSP of 29mmHg Cont lasix 20mg po daily. . (2) Hematemesis: Status: Acute Assessment and plan: No h/o varices per two EGDs in the last 2 years. No active bleeding since admission. No hematemesis. Tolerating clear liquids. Will treat with IV protonix and carafate. Will trend serial H/H: now stabilized. Advanced diet to heart healthy / regular consistency. (3) Symptomatic anemia: Status: Acute Assessment and plan: s/p transfusion of 2 units of pRBCS. Monitor H/H: 5.1 > 8.7 > 8.2 > 8.3 >8.2 (4) NSTEMI (non-ST elevated myocardial infarction): Status: Acute Assessment and plan: In setting of acute anemia, EKG changes are essentially meaningless. H/H now stable and will check troponin in AM. (5) COPD (chronic obstructive pulmonary disease): Status: Chronic Assessment and plan: Not in acute exacerbation. Will ensure prn nebs are available. Patient is not taking any medications at home for COPD. (6) Acute kidney injury superimposed on chronic kidney disease: Status: Acute Assessment and plan: h/o urinary retention. Voiding but incompletely emptying. Cont tamsulosin. Creatinine improved; 1.8 > 1.5>1.4. (7) Alcohol abuse: Status: Chronic Assessment and plan: Not currently withdrawing. Will monitor for signs/symptoms of withdrawal. PRN ativan Will provide thiamine, MVI. B12 low at 284: Will give IM dose. Folate low: 3.4. Oral supplementation. (8) Discharge planning issues: Status: Acute Assessment and plan: Full code This is confirmed with a COLST form on file. Palliative care patient - consulted Consult PT and OT. He stated he is agreeable to SNF for rehab. (9) DVT prophylaxis: Status: Acute Assessment and plan: TEDs. Chemical DVT ppx is contraindicated in acute GI bleeding, and the patient's legs would probably not tolerate SCDs due to pain. Subjective Subjective Patient reports: feels better, tolerating a regular diet and afebrile; denies nausea, vomiting or shortness of breath Interval history since last seen: Working with PT: ambulated with walker in room and then a short distance into the hallway. Exam Narrative Exam Narrative: General: Sitting in chair. Cooperative. Neurological: A&Ox3, no focal deficits Psychiatric: Appropriate speech pattern/content. Affect appropriate. Skin: No rashes. HEENT: sclera clear. MMM. Cardiovascular: RRR, no murmur Lungs: Coarse breath sounds B but improved. Gastrointestinal: soft, nontender, nondistended Extremities: No pedal edema noted today. No calf tenderness. Objective Last Vital Signs Temp 36.6 C 03/29/22 22:46 Pulse 74 03/29/22 23:00 Resp 18 03/29/22 22:46 BP 115/66 03/29/22 22:46 Pulse Ox 95 03/29/22 22:46 Laboratory Results - last 24 hr 03/29/22 10:35 WBC 4.45 RBC 3.53 L Hgb 8.2 L Hct 27.5 L MCV 78 L MCH 23.2 L MCHC 29.8 L D RDW 24.3 H Plt Count 136 MPV 9.2 Immature Gran % 0.9 Neutrophils % 67.4 Lymphocytes % 15.7 Monocytes % 13.7 Eosinophils % 1.6 Basophils % 0.7 Nucleated RBC % 0.0 Absolute Neutrophils 3.00 Absolute Lymphocytes 0.70 L Absolute Monocytes 0.61 Absolute Eosinophils 0.07 Absolute Basophils 0.03 RBC Morphology See Below Hypochromasia 1+ Anisocytosis 2+ Acanthocytes (Spur) GOVERNMENT 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 PAWSS Have you Been Recently Intoxicated or Drunk Within the Last 30 days?: Yes Have you Ever Experienced Previous Episodes of Alcohol Withdrawal?: Unable to Obtain Have you ever Experienced Withdrawal Seizures?: No Have you ever Experienced Delirium Tremens(DT)s?: No Have you ever undergone Alcohol Rehabilitation Treatment (i.e, inpt ot outpatient treatment programs)?: Yes Have you ever Experienced Blackouts?: No Have you ever Combined Alcohol with other Downers within the last 90 days?: No Have you ever Combined Alcohol with any other Substance of Abuse during the last 90 days?: No Positive Blood Alcohol level on Presentation? [PCS.BAL]: Unable to Obtain Evidence of Increased Autonomic Activity (i.e. HR>120, tremor, sweating, agitation, nausea)?: No Result: 2
[2022-03-30 07:39] LABS: HCT 26.7 % (40.0-50.0); HGB 8.3 g/dL (13.5-17.5)
[2022-03-30 07:55] LABS: Anion Gap 4.5 mmol/L (3-11); BUN 38 mg/dL (7-18); CO2 32.5 mmol/L (21.0-32.0); CREATININE 1.6 mg/dL (0.70-1.30); Calcium 7.3 mg/dL (8.5-10.1); Chloride 98 mmol/L (98-107); Estimated GFR 42.35 (mL/min/1.73m2); Glucose 121 mg/dL (74-106); Potassium 3.9 mmol/L (3.5-5.1); Sodium 135 mmol/L (136-145)
[2022-03-30 07:58] LABS: Troponin I 73 ng/L (<or=60)
[2022-03-30] MEDS: Pantoprazole 40 MG TABCR PO ×2 (07:58→19:53)
[2022-03-30] MEDS: Magnesium Oxide 400 MG TAB PO (07:58)
[2022-03-30] MEDS: Normal Saline Flush 10 ML SYR IVP (07:58)
[2022-03-30] MEDS: Tamsulosin 0.4 MG CAPCR PO (07:59)
[2022-03-30] MEDS: Multivitamin TAB 1 TAB PO (07:59)
[2022-03-30] MEDS: Folic Acid 1 MG TAB PO (07:59)
[2022-03-30] MEDS: Finasteride 5 MG TAB PO (07:59)
[2022-03-30] MEDS: Thiamine 100 MG TAB PO (07:59)
[2022-03-30] MEDS: Metoprolol CR 100 MG TABCR PO (07:59)
[2022-03-30] MEDS: Colchicine 0.6 MG TAB PO (07:59)
[2022-03-30] MEDS: Furosemide 20 MG TAB PO (07:59)
[2022-03-30] MEDS: Sucralfate 1 GM TAB PO ×4 (07:59→22:13)
[2022-03-30] MEDS: Budesonide/Formoterol 160/4.5 6 GM 60 PUFF INH IH ×2 (08:03→19:56)
--- NOTE | 2022-03-30 09:30 | OTTR_ITS ---
Occupational Therapy Notes Occupational Therapy Inpatient Treatment Note Date: 03/30/22 PRECAUTIONS: Fall, standard, Full SUBJECTIVE: Pt states that he is in pain and not doing well. But is agreeable to performance of ADLs. OBJECTIVE: PAIN:c/o pain throughout whole body FUNCTIONAL MOBILITY Rolling L/R: (I) Supine-sit: (I) Sit-supine: (I) Sit-stand: (I) Stand-sit: (I) Bed-Chair: (S) Chair-bed: (S) BATHING: standing at sink with min vc Upper Body: (I) face and (B) UE including underarms Lower Body: Pt refuses PLAN: OT and pt discuss that his goal is to perform his bathing standing at the sink. Pt is in agreement with this and OT explains to pt that this is necessary to continue to improve his functional (I). He has no LOB or issues while he was there today. TREATMENT CODES/TIME: 00285, 20 minutes Viji Brown, OTR/L [facility]
--- NOTE | 2022-03-30 09:39 | NUR.NOTE ---
Nursing Note: Patient had complained about the term refusing He stated he insists that he is not refusing treatment , but that he wants to do things his way. Attempt was made to educate the patient that he came to the facility seeking assistance in the care of his condition. It was explained to the patient that the providers here prescribe treatment based on best practices. I also tried to explain to the patient that nursing works on evidence based practice. I did explain to him that he can accept or deny any treatment offered to him however if he chooses not to accept a provider ordered treatment or alter the treatment to a manner that he prefers, such as using a spacer with an inhaler as an example, medically we need to state he refused the treatment, as he is not doing the treatment in the manner the provider ordered
--- NOTE | 2022-03-30 12:02 | PT.INNT ---
Date of service: 03/30/22 Time of Service: 12:02 PT Notes Visit Reasons: Upper GI Bleeding,Symptomatic Anemia,CHF, 03/30/2022 Patient declined to participate in PT x2 this morning stating that he has been very busy and hopes to participate after he has some lunch and is able to rest for a little bit. Will attempt to resume PT services later today.
--- NOTE | 2022-03-30 12:34 | PDOC.CMPRO ---
- If Service Date Differs Date of service: 03/30/22 Time of Service: 12:35 Care Management Progress Note S/O: Rufino was lying in bed with the lights off and the door closed each time CM came to see him. He did respond when spoken to in the afternoon however. When asked how he is doing today, Rufino reeplied not good. He explained that he had been catheterized and that it really hurt. He offered that he thinks he may have a UTI. Rufino refused to work with PT today, which is often the case. Referrals have been sent for short term rehab at area SNFs but no bed offers have been received. A: Rufino is a 76 year old man admitted on 03/26/22 with UGI Bleed P: Rufino has requested that referrals be sent to area SNFs for short term rehab. He indicated that he does not feel he can care for himself at home. If no bed offers are received he will likely return home as he has exhibited that he can ambulate safely with PT. Transport dependent on disposition. CM will continue to follow and assess for ongoing discharge concerns.
[2022-03-30 12:40] LABS: Lab Add On Test DONE
[2022-03-30 13:10] LABS: Iron 16 ug/dL (65-175)
--- NOTE | 2022-03-30 13:51 | PT.INNT ---
Date of service: 03/30/22 Time of Service: 13:52 PT Notes Visit Reasons: Upper GI Bleeding,Symptomatic Anemia,CHF, 03/30/2022 Patient declined to participate in PT this afternoon stating that he has been very busy today and he is worn out and doesn't feel well today. Will attempt to resume PT services tomorrow morning.
--- NOTE | 2022-03-30 18:25 | W.PM.PROGNOT ---
Date of Service Date of service: 03/30/22 Time of Service: 18:25 Assessment and Plan Assessment and plan (1) Acute on chronic diastolic heart failure: Status: Acute Assessment and plan: In setting of medication noncompliance, episodes of rapid Afib, anemia. HR now controlled. Diuresed well with lasix 20mg IV BID. Wt has decreased. Echocardiogram with mildly reduced EF of 45-50% (in Afib during the study). Est RVSP of 29mmHg Cont lasix 20mg po daily. . (2) Hematemesis: Status: Acute Assessment and plan: No h/o varices per two EGDs in the last 2 years. No active bleeding since admission. No hematemesis. Tolerating clear liquids. Will treat with IV protonix and carafate. Will trend serial H/H: now stabilized in low 8 range. Advanced diet to heart healthy / regular consistency. (3) Symptomatic anemia: Status: Acute Assessment and plan: s/p transfusion of 2 units of pRBCS. Monitor H/H: 5.1 > 8.7 > 8.2 > 8.3 >8.2>8.0 (4) NSTEMI (non-ST elevated myocardial infarction): Status: Acute Assessment and plan: In setting of acute anemia, EKG changes are essentially meaningless. H/H now stable Trop was 657 > 536 > 443 > and now 73. (5) COPD (chronic obstructive pulmonary disease): Status: Chronic Assessment and plan: Not in acute exacerbation. Will ensure prn nebs are available. Patient is not taking any medications at home for COPD. (6) Acute kidney injury superimposed on chronic kidney disease: Status: Acute Assessment and plan: h/o urinary retention. Voiding but incompletely emptying. Cont tamsulosin. Creatinine improved; 1.8 > 1.5>1.4.>1,6 (7) Alcohol abuse: Status: Chronic Assessment and plan: Not currently withdrawing and doubt he will. Will monitor for signs/symptoms of withdrawal. PRN ativan Will provide thiamine, MVI. B12 low at 284: Will give IM dose. Folate low: 3.4. Oral supplementation. (8) Discharge planning issues: Status: Acute Assessment and plan: Full code This is confirmed with a COLST form on file. Palliative care patient - consulted Consult PT and OT. He stated he is agreeable to SNF for rehab. Encouraged to work with therapies. (9) DVT prophylaxis: Status: Acute Assessment and plan: TEDs. Chemical DVT ppx is contraindicated in acute GI bleeding, and the patient's legs would probably not tolerate SCDs due to pain. Subjective Subjective Patient reports: tolerating a regular diet and afebrile; denies diarrhea, nausea, vomiting or shortness of breath Interval history since last seen: Feels fatigued. No CP. No Abd pain. Exam Narrative Exam Narrative: General: Lying supine in bed. NAD Neurological: A&Ox3, no focal deficits Psychiatric: Appropriate speech pattern/content. Affect appropriate. Skin: No rashes. HEENT: sclera clear. MMM. Cardiovascular: RRR, no murmur Lungs: Coarse breath sounds B but improved. Gastrointestinal: soft, nontender, nondistended Extremities: No pedal edema noted today. No calf tenderness. Objective Last Vital Signs Temp 36.9 C 03/30/22 16:12 Pulse 66 03/30/22 16:12 Resp 16 03/30/22 16:12 BP 119/67 03/30/22 16:12 Pulse Ox 95 03/30/22 16:12 Laboratory Results - last 24 hr 03/30/22 03/30/22 03/30/22 07:33 07:33 07:33 Hgb 8.3 L Hct 26.7 L Sodium 135 L Potassium 3.9 Chloride 98 Carbon Dioxide 32.5 H Anion Gap 4.5 BUN 38 H Creatinine 1.6 H Estimated GFR/1.73 m2 42.35 Glucose 121 H Calcium 7.3 L Iron Troponin I 73 H* Add-On Test Request 03/30/22 03/30/22 03/30/22 07:35 10:54 Unknown Hgb 8.0 L Hct 27.0 L Sodium Potassium Chloride Carbon Dioxide Anion Gap BUN Creatinine Estimated GFR/1.73 m2 Glucose Calcium Iron 16 L Troponin I Add-On Test Request DONE PAWSS Have you Been Recently Intoxicated or Drunk Within the Last 30 days?: Yes Have you Ever Experienced Previous Episodes of Alcohol Withdrawal?: Unable to Obtain Have you ever Experienced Withdrawal Seizures?: No Have you ever Experienced Delirium Tremens(DT)s?: No Have you ever undergone Alcohol Rehabilitation Treatment (i.e, inpt ot outpatient treatment programs)?: Yes Have you ever Experienced Blackouts?: No Have you ever Combined Alcohol with other Downers within the last 90 days?: No Have you ever Combined Alcohol with any other Substance of Abuse during the last 90 days?: No Positive Blood Alcohol level on Presentation? [PCS.BAL]: Unable to Obtain Evidence of Increased Autonomic Activity (i.e. HR>120, tremor, sweating, agitation, nausea)?: No Result: 2
[2022-03-30] MEDS: Atorvastatin 40 MG TAB PO (22:13)
[2022-03-30] MEDS: Melatonin 3 MG TAB PO (22:13)
[2022-03-30] MEDS: Zolpidem 6.25 MG TABCR PO (22:13)
[2022-03-31 03:15] VITALS: BP 111/67; PULSE 62; RESP 16; TEMP 36.7; O2SAT 96
[2022-03-31 06:25] LABS: HCT 28.6 % (40.0-50.0); HGB 8.7 g/dL (13.5-17.5)
[2022-03-31 08:05] VITALS: BP 129/77; PULSE 70; RESP 18; TEMP 36.9; O2SAT 98
[2022-03-31] MEDS: Multivitamin TAB 1 TAB PO (08:27)
[2022-03-31] MEDS: Pantoprazole 40 MG TABCR PO (08:27)
[2022-03-31] MEDS: Metoprolol CR 100 MG TABCR PO (08:27)
[2022-03-31] MEDS: Sucralfate 1 GM TAB PO ×2 (08:27→11:46)
[2022-03-31] MEDS: Magnesium Oxide 400 MG TAB PO (08:27)
[2022-03-31] MEDS: Furosemide 20 MG TAB PO (08:27)
[2022-03-31] MEDS: Folic Acid 1 MG TAB PO (08:27)
[2022-03-31] MEDS: Thiamine 100 MG TAB PO (08:27)
[2022-03-31] MEDS: Finasteride 5 MG TAB PO (08:27)
[2022-03-31] MEDS: Tamsulosin 0.4 MG CAPCR PO (08:28)
[2022-03-31] MEDS: Budesonide/Formoterol 160/4.5 6 GM 60 PUFF INH IH (09:45)
--- NOTE | 2022-03-31 09:53 | PT.INNT ---
Date of service: 03/31/22 Time of Service: 09:53 PT Notes Visit Reasons: Upper GI Bleeding,Symptomatic Anemia,CHF, 03/31/2022 Patient declined to participate in PT x2 this morning stating that he doesn't feel well today and is too tired to participate. Patient was informed that if he refuses to participate in PT tomorrow as well, he will be discharged from PT services due to refusal x3 consecutive days. Will attempt to resume PT services tomorrow morning.
[2022-03-31 12:00] VITALS: BP 149/81; PULSE 69; RESP 19; TEMP 37.3; O2SAT 98
[2022-03-31] MEDS: Acetaminophen 325 MG TAB PO (14:28)
--- NOTE | 2022-03-31 15:12 | DSE_ITS ---
Date of service: 03/31/22 Time of Service: 15:12 DS: Diagnosis Discharge Diagnosis (1) Acute on chronic diastolic heart failure: Status: Acute (2) Hematemesis: Status: Acute (3) Symptomatic anemia: Status: Acute (4) NSTEMI (non-ST elevated myocardial infarction): Status: Acute (5) COPD (chronic obstructive pulmonary disease): Status: Chronic (6) Acute kidney injury superimposed on chronic kidney disease: Status: Acute (7) Alcohol abuse: Status: Chronic (8) Discharge planning issues: Status: Acute (9) DVT prophylaxis: Status: Acute Discharge Plan Disposition Patient Disposition: HOME Condition: Improving Discharge Details Reason For Visit: Upper GI Bleeding,Symptomatic Anemia,CHF, Admit Date/Time: 03/26/22 15:33 Admit Provider: Ca Arnold Attending Provider: Ca Arnold Primary Care Provider: Desirae Panda Hospital Course Hospital Course: Mr Calero is a 76 year old male with PMHx of Afib (not on anticoagulation due to h/o GI bleeding in the past), as well as h/o non-oxygen dependent COPD, chronic anemia, CKD III, as well as alcohol abuse, who does not take any medications, who for the last 1-2 months had been getting progressively weaker, had noted worsening swelling in his BLEs and has felt short of breath. He also notes nausea every morning. He last drank today. He denies hx of EtOH w/d. In the ED, he had a small amount of hematemesis (brown). He was found to have a Hgb of 5.1 with an elevated troponin (657 down to 536). He also was found to be in rapid Afib briefly, during which time he had new T wave inversions noted on EKG. This was reviewed with cardiology here and at [facility] - no action was recommended other than transfusing blood. Mr Calero was written for 2 units of pRBCS. He refused a rectal exam in the ED. He was started on protonix, carafate, and received a bolus of octreotide. He had an EGD in 07/2020 which showed shallow gastric ulcers and Tineo's esophagus. EGD in [facility] in 2020 showed esophagitis with a nonbleeding esophageal ulcer. There was no evidence of varices on that EGD. The patient states his stools have been brown. The patient came to the hospital today primarily because he was too weak to go down the stairs to his PCP appointment. His hemoglobin stabilized in the upper 8 range. He diuresed well with IV lasix; wt down 4 kg. He was subsequently changed to po lasix. PT prescribed but for the day discharge and the two days prior to that he refused working with PT. He was able to ambulate with the assistance of a roller walker to and from his bed and bathroom and into the hallway. He will d/c to home on his usual PPI and 1 more week of sucralfate. PCP f/u in 1-2 weeks. With repeat hemoglobin at that time. Encouraged to continue with current alcohol avoidance. Home Meds and New Rx's Prescriptions: New sucralfate 1 gram Tablet 1 g PO AC & HS Qty: 28 0RF tamsulosin 0.4 mg Capsule 0.4 mg PO DAILY Qty: 30 0RF Continued budesonide-formoterol [Symbicort] 160-4.5 mcg/actuation HFA aerosol inhaler 2 puff inhalation BID Qty: 10.2 11RF pantoprazole 40 mg tablet,delayed release (DR/EC) 40 mg PO BID Qty: 60 0RF Rx Instructions: GI bleed melatonin 3 mg tablet extended release 3 mg PO HS PRN (Reason: Insomnia) Qty: 90 3RF Rx Instructions: Sleep difficulty tamsulosin 0.4 mg capsule 0.8 mg PO DAILY Qty: 60 12RF finasteride 5 mg tablet 5 mg PO DAILY Qty: 30 12RF artificial tear(hkchg-btt-utz) 0.1-0.3-0.2 % drops 1 drp ophthalmic (eye) 4-8XD PRN nitroglycerin 0.4 mg tablet, sublingual 0.4 mg sublingual Q5M PRN Rx Instructions: do not exceed 3 doses per episode colchicine [Mitigare] 0.6 mg capsule 0.6 mg PO DAILY Qty: 90 3RF Rx Instructions: Gout prevention metoprolol succinate 100 mg tablet extended release 24 hr 100 mg PO DAILY Qty: 30 0RF atorvastatin 40 mg tablet 40 mg PO QHS Qty: 30 0RF No Action thiamine mononitrate (vit B1) [Vitamin B-1 (mononitrate)] 100 mg Tablet 100 mg PO DAILY Qty: 30 0RF Discharge Instructions Instructions: Abuse of Alcohol (DC) Activity:: Roller walker Equipment/Supplies:: Walker Diet:: resume usual home diet. Low sodium. Discharge Orders Discharge Orders: Discharge Order (Routine); Ordered 03/31/22 Ordered By: Moise Hinton DS: Summary Time Spent with Patient providing and/or coordinating discharge services: Greater than 30 minutes Status at Discharge Functional status at discharge: uses cane/walker Overall status at discharge: patient is progressing back to baseline Mental Status: mental status grossly normal Speech and Movement: speech clear Mood: anxious mood Affect: anxious affect Exam Narrative Exam Narrative: General: Lying supine in bed. NAD Neurological: A&Ox3, no focal deficits Psychiatric: Appropriate speech pattern/content. Affect appropriate. Skin: No rashes. HEENT: sclera clear. MMM. Cardiovascular: RRR, no murmur Lungs: Coarse breath sounds B but improved. Gastrointestinal: soft, nontender, nondistended Extremities: No pedal edema noted today. No calf tenderness. Psych Mental Status: mental status grossly normal Speech and Movement: speech clear Mood: anxious mood Affect: anxious affect DS: Data Vitals/I&O Vitals and I&O: Vital Signs Temperature 37.3 C 03/31/22 12:00 Temperature Source Tympanic 03/31/22 12:00 Pulse 69 03/31/22 12:00 Pulse Rhythm Regular 03/31/22 09:28 Pulse 72 03/27/22 17:01 Respiratory Rate 19 03/31/22 12:00 Respiratory Effort Non-Labored 03/31/22 09:28 Respiratory Depth Normal 03/31/22 09:28 Respiratory Pattern Normal 03/31/22 09:28 Blood Pressure 149/81 H 03/31/22 12:00 Blood Pressure Mean 70 03/27/22 17:01 Blood Pressure Position Supine 03/27/22 12:20 Pulse Oximetry 98 03/31/22 12:00 Oxygen Delivery Method Room Air 03/31/22 12:00 Oxygen Flow Rate 0 03/31/22 12:00 Pain Level 6 03/31/22 14:28 Comment 03/30/22 03:18 Intake & Output 03/30/22 03/31/22 03/31/22 23:59 11:59 23:59 Intake Total 250 / 250 500 / 500 Output Total 1386 / 2111 625 / 775 150 / 775 Balance -1136 / -1861 -625 / -275 350 / -275 Weight 70.449 kg Intake: IV 10 / 10 Oral 240 / 240 500 / 500 Output: Urine 1341 / 2066 625 / 775 150 / 775 Post Void Residual 45 / 45 Other: Urine Color Yellow Yellow Yellow Urine Appearance Clear Clear Clear Urine Odor None Foul Comment pt refusing to straight cath. pt refused to be straight cath. Stool Size Moderate Stool Characteristics Formed Voiding Methods Urinal Urinal Data Completed and Pending Labs on day of discharge: Labs from last 24 hours 03/31/22 06:05 Hgb 8.7 L Hct 28.6 L PFSH All Active Problems Anemia (Chronic) CHF (congestive heart failure) (Chronic) Acute upper gastrointestinal bleeding (Acute) Alcohol abuse (Chronic) DVT prophylaxis (Acute) Acute kidney injury superimposed on chronic kidney disease (Acute) Hematemesis (Acute) Symptomatic anemia (Acute) NSTEMI (non-ST elevated myocardial infarction) (Acute) Acute on chronic diastolic heart failure (Acute) Discharge planning issues (Acute) Troponin level elevated (Acute) COPD (chronic obstructive pulmonary disease) (Chronic) Gout (Chronic) Colchicine prevention Sleeping difficulty (Chronic) Melatonin RX Depression (Chronic) Plans on getting connected to social work Tineo's esophagus (Chronic ~04/2019) ETOH; Upper endoscopy 03/2019 (see path report--no tineo's?, but 08/15/2019 surg note says +tineo's) Weakness (Acute) LE weakness; Home PT Urinary retention (Chronic) Dr. Ramos Tobacco abuse disorder (Chronic) Cut down 1/2PPD COPD (chronic obstructive pulmonary disease) (Chronic) Atrial fibrillation (Chronic) Paroxysmal per hospital records; not anticoagulated secondary to recurrent GI bleeds from chronic EtOH use Alcohol use disorder (Chronic) GI bleed (Chronic) Anemia (Chronic) Medical History Tineo's esophagus Depression Gastric ulcer Hematemesis Insomnia Palliative care patient Dobbertin Radicular pain of right lower extremity Renal insufficiency Right knee pain Smoking hx UTI (urinary tract infection) Surgical History H/O esophagogastroduodenoscopy (~04/2019) Repeat on 10/26/20 [facility] [place] severe reflux esophagitis w/ non-bleeding esophageal ulcer. 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
--- NOTE | 2022-03-31 16:10 | PDOC.CMDIS ---
- If Service Date Differs Date of service: 03/31/22 Time of Service: 16:10 LACE Index Scoring Tool - Questions: Length of Stay (in days): 4 - 6 Acuity (Admit via E.D.?): Yes Comorbidities: Previous M.I., Congestive Heart Failure, Chronic Pulmonary Disease, Liver or Renal Disease E.D. Visits: 1 - Answers: Total Score: 13 Risk of Readmission: High Risk Care Management Discharge Reason for Hospitalization: Upper GI bleeding, Symptomatic anemia, CHF Discharge Plan: Rufino will be discharged home with a resumption of his private caregivers. He will follow up with his PCP and plan of care and transport via [facility] . Gamal will meet him at home for a lift assist coordinated by CM. Patient/Family Education Needs: Review of discharge instructions, medications, limitations, follow up plan, Ask Me Three Services Needed at Discharge: Transportation
--- NOTE | 2022-04-03 10:03 | PT.INDS ---
PT Notes Visit Reasons: Upper GI Bleeding,Symptomatic Anemia,CHF, Inpatient Physical Therapy Discharge Summary Dates: 04/03/2022 Dates of Service: 03/27 to 03/29/2022 SUBJECTIVE: Patient refused physical therapy treatment after 3 separate visits therefore was discharged from our service OBJECTIVE: ROM: Had functional range of motion throughout STRENGTH: Strength generally rated 4/5 BED MOBILITY/TRANSFERS: Supine-sit independent Sit-supine independent Sit-stand standby supervision Stand-sit standby supervision Bed-Chair standby supervision Chair-bed standby supervision GAIT: Ambulated approximately 60 feet with FWW and minimal contact guarding BALANCE: Static sitting Dynamic sitting Static standing Dynamic standing stand by assistance ASSESSMENT: Patient was independent with bed mobility and ambulating approximately 60 feet with a FWW and supervision. 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 voice recognition software. It was reviewed for major content. However, there may be multiple small discrepancies and errors due to the voice recognition aspects of the software.
--- NOTE | 2022-04-04 15:57 | W.PM.PROGNOT ---
Date of Service Date of service: 03/29/22 Time of Service: 15:58 Assessment and Plan Assessment and plan (1) Acute on chronic diastolic heart failure: Status: Resolved (2) Hematemesis: Status: Resolved Assessment and plan: No h/o varices per two EGDs in the last 2 years. No active bleeding since admission. No hematemesis. Tolerating clear liquids. Will treat with IV protonix and carafate. Will trend serial H/H: now stabilized. NPO. Surgical consult appreciated. (3) Symptomatic anemia: Status: Resolved Assessment and plan: s/p transfusion of 2 units of pRBCS. Monitor H/H: 5.1 > 8.7 > 8.2 > Check Hematest (expect to be positive). (4) NSTEMI (non-ST elevated myocardial infarction): Status: Resolved Assessment and plan: In setting of acute anemia, EKG changes are essentially meaningless. Will need to be reassessed once H/H has stabilized. (5) COPD (chronic obstructive pulmonary disease): Status: Chronic Assessment and plan: Not in acute exacerbation. Will ensure prn nebs are available. Patient is not taking any medications at home for COPD. (6) Acute kidney injury superimposed on chronic kidney disease: Status: Resolved Assessment and plan: h/o urinary retention. Voiding OK. Cont tamsulosin. Creatinine improved; 1.8 > 1.5>1.4. (7) Alcohol abuse: Status: Chronic Assessment and plan: Not currently withdrawing. Will monitor for signs/symptoms of withdrawal. PRN ativan Will provide thiamine, MVI. B12 low at 284: Will give IM dose. Folate low: 3.4. Oral supplementation. (8) Discharge planning issues: Status: Deleted Assessment and plan: Full code This is confirmed with a COLST form on file. Palliative care patient - consulted Consult PT and OT. Will benefit from further rehab and he states he would like rehab at d/c but he needs to work more with PT rather than stating he is too tired. (9) DVT prophylaxis: Status: Deleted Assessment and plan: TEDs. Chemical DVT ppx is contraindicated in acute GI bleeding, and the patient's legs would probably not tolerate SCDs due to pain. Exam Narrative Exam Narrative: General: Awake, lying in bed supine. NAD Neurological: A&Ox3, no focal deficits Psychiatric: Appropriate speech pattern/content. Affect appropriate. Skin: No rashes. HEENT: sclera clear. MMM. Cardiovascular: RRR, no murmur Lungs: Coarse breath sounds B Gastrointestinal: soft, nontender, nondistended Extremities: No pedal edema noted today. No calf tenderness. Objective Last Vital Signs Temp 37.3 C 03/31/22 12:00 Pulse 69 03/31/22 12:00 Resp 19 03/31/22 12:00 BP 149/81 H 03/31/22 12:00 Pulse Ox 98 03/31/22 12:00 PAWSS Have you Been Recently Intoxicated or Drunk Within the Last 30 days?: Yes Have you Ever Experienced Previous Episodes of Alcohol Withdrawal?: Unable to Obtain Have you ever Experienced Withdrawal Seizures?: No Have you ever Experienced Delirium Tremens(DT)s?: No Have you ever undergone Alcohol Rehabilitation Treatment (i.e, inpt ot outpatient treatment programs)?: Yes Have you ever Experienced Blackouts?: No Have you ever Combined Alcohol with other Downers within the last 90 days?: No Have you ever Combined Alcohol with any other Substance of Abuse during the last 90 days?: No Positive Blood Alcohol level on Presentation? [PCS.BAL]: Unable to Obtain Evidence of Increased Autonomic Activity (i.e. HR>120, tremor, sweating, agitation, nausea)?: No Result: 2
== END 2022-03-31 15:43 | disposition home or self-care (01) | DRG 281 ==
LOC: ER 10:51 → ICU 03-27 10:00 → MS 03-27 18:29
PROVIDERS: Family Medicine; Admitting Provider Internal Medicine; Emergency Provider Student in an Organized Health Care Education/Training Program; PCP Nurse Practitioner Adult Health; Visit Provider Internal Medicine
DX: I50.33 Acute on chronic diastolic (congestive) heart failure (principal); I21.4 Non-ST elevation (NSTEMI) myocardial infarction; N17.9 Acute kidney failure, unspecified; K92.0 Hematemesis; J44.9 Chronic obstructive pulmonary disease, unspecified; D64.9 Anemia, unspecified; N18.30 Chronic kidney disease, stage 3 unspecified; F10.10 Alcohol abuse, uncomplicated; R74.8 Abnormal levels of other serum enzymes; M10.9 Gout, unspecified; F32.A Depression, unspecified; K22.70 Barrett's esophagus without dysplasia; R53.1 Weakness; R33.9 Retention of urine, unspecified; F17.210 Nicotine dependence, cigarettes, uncomplicated; I48.0 Paroxysmal atrial fibrillation; Z87.11 Personal history of peptic ulcer disease; Z91.14 Patient's other noncompliance with medication regimen
CPT/HCPCS: 36415; 80048; 80053; 85027; 86850; 86900; 86901; 86920; 87637; 93005; 93306; 94640; 96374; 96375; 97163; 97166; 97530; 97535; 99291; 71045; 81003; 81015; 82607; 82746; 83540; 83605; 83735; 83880; 84100; 84443; 84484; 85014; 85018; 85025; 85610; 87086; 93010; 93970; 94664; 99223; 99232; 99233; 99239; J1941; J2354; J2405; J3420; J3475; J7620; P9016

== ENCOUNTER 2022-07-19 15:15 | Inpatient (IN) | payer OTHER, SELFPAY ==
[2022-07-19] VITALS (40 sets, daily range): BP systolic 104–146; BP diastolic 58–84; PULSE 90–145; RESP 18–37; TEMP 36.4–37.1; O2SAT 93–100
--- NOTE | 2022-07-19 15:15 | DI.RAD_ITS ---
Exam(s) XR PORTABLE CHEST AP EXAM: XR PORTABLE CHEST AP CLINICAL HISTORY: SOB. TECHNIQUE: 2D digital imaging was performed. COMPARISON: CR XR CHEST 1V IN DI DEPT from 03/26/2022 FINDINGS: Single AP portable view. Heart size is upper normal. The mediastinum is not widened. Lungs are clear. No infiltrates nor obvious pleural effusions. IMPRESSION: No acute pulmonary findings on this single AP portable view of the chest. DATA REPOSITORY: RADIATION DOSE DELIVERED:
--- NOTE | 2022-07-19 15:15 | RT.EKG_ITS ---
APPROVED REPORT Exam: Resting ECG Reason for Exam: SOB Patient Location: E HR:118 bpm ECG Measurements Heart Rate 118 [place]IS [place] [id number] P [id number] QRSd 85 QRS 55 QT 320 T 40 QTc 449 Conclusion Atrial fibrillation. Ventricular premature complex. Low voltage, extremity and precordial leads
--- NOTE | 2022-07-19 15:29 | ED.GENADUL_ITS ---
Discharge Plan Disposition Patient Disposition: [facility] INPATIENT Condition: Stable Discharge Details Chief Complaint: RespSymp Clinical Impression: GI bleed, Atrial fibrillation, Weakness, Tobacco abuse disorder, Alcohol abuse Primary Care Provider: Desirae Panda ED Provider: Khadar Richards Home Meds and New Rx's Prescriptions: No Action budesonide-formoterol [Symbicort] 160-4.5 mcg/actuation HFA aerosol inhaler 2 puff inhalation BID Qty: 10.2 11RF pantoprazole 40 mg tablet,delayed release (DR/EC) 40 mg PO BID Qty: 60 0RF Rx Instructions: GI bleed melatonin 3 mg tablet extended release 3 mg PO HS PRN (Reason: Insomnia) Qty: 90 3RF Rx Instructions: Sleep difficulty tamsulosin 0.4 mg capsule 0.8 mg PO DAILY Qty: 60 12RF finasteride 5 mg tablet 5 mg PO DAILY Qty: 30 12RF artificial tear(bfsar-tqm-hxl) 0.1-0.3-0.2 % drops 1 drp ophthalmic (eye) 4-8XD PRN nitroglycerin 0.4 mg tablet, sublingual 0.4 mg sublingual Q5M PRN Rx Instructions: do not exceed 3 doses per episode colchicine [Mitigare] 0.6 mg capsule 0.6 mg PO DAILY Qty: 90 3RF Rx Instructions: Gout prevention metoprolol succinate 100 mg tablet extended release 24 hr 100 mg PO DAILY Qty: 30 0RF atorvastatin 40 mg tablet 40 mg PO QHS Qty: 30 0RF thiamine mononitrate (vit B1) [Vitamin B-1 (mononitrate)] 100 mg Tablet 100 mg PO DAILY Qty: 30 0RF sucralfate 1 gram Tablet 1 g PO AC & HS Qty: 28 0RF tamsulosin 0.4 mg Capsule 0.4 mg PO DAILY Qty: 30 0RF Medical Decision Making This is a 77-year-old male with a history of alcohol abuse, medical noncompliance, CHF, COPD. He presents via EMS with complaint of not being able to breathe over 2 days time. States his last drink of alcohol was 2 days ago. He also states that he is run out of some of his medications and has not been taking them regularly. He states that he has been weak and unable to stand at home and feels weakness and edematous changes in his legs which has occurred before. He also notes some brown-colored emesis with coughing and had dark emesis once in the ER Patient arrives to the ER alert and interactive. He is poorly kempt. He is afebrile. He has diffuse wheezing present but is oxygenating within normal limits. Differential diagnosis is broad including electrolyte abnormalities, fluid balance changes, COPD exacerbation, generalized decline. Patient had IV access established, screening labs obtained. He is given DuoNeb updraft and small aliquot of anxiolytic. Laboratories noted a sodium of 145, potassium 5.2, chloride 100, bicarb 10, anion gap 34, BUN is 30 with a creatinine of 1.8. Calcium 8.3, total bili 1.5, AST 189, ALT 68. BNP is 1054, troponin negative. Patient has recurrent anemia with a hemoglobin of 6.8 today and history of GI bleed in the past. Likely this is upper GI in origin. Patient is noted to have elevated heart rate and atrial fibrillation ranging approxione 100-1 30. He states he has not been taking his medications consistently and therefore the in part due to the lack of beta-blockade. Additionally, labs will note creatinine slightly elevated over baseline at 1.8. Patient given IV metoprolol. Judicious administration of fluids initiated at 100 cc/h. Patient given Protonix, consented for transfusion of 1 unit of blood. He will require admission. HPI General Mode of arrival: EMS . Date/Time Provider Initiated Documentation: 07/19/22 15:45 . Limitations to Documentation: no limitations . Information obtained by: patient and EMS . History of Present Illness 77 year old M presents to the emergency department with the chief complaint of Shortness of breath, not taking medications, weakness at home, described as moderate, and is localized to the chest. Patient reports no radiation. Patient started experiencing this day(s) and it has been constant. No relieving factors improve symptom(s), No exacerbating factors reported . Patient notes cough, shortness of breath and weakness; denies syncope. Patient did receive the following treatments prior to arrival, none Related Data Home Medications Medication Instructions Recorded Confirmed thiamine mononitrate (vit B1) 100 100 mg PO DAILY #30 tabs 08/30/19 07/19/22 mg tablet (Vitamin B-1 (mononitrate)) finasteride 5 mg tablet 5 mg PO DAILY #30 tabs 08/23/20 07/19/22 tamsulosin 0.4 mg capsule 0.8 mg PO DAILY #60 caps 08/23/20 07/19/22 budesonide-formoterol HFA 160 2 puff inhalation BID #10.2 grams 09/02/20 07/19/22 mcg-4.5 mcg/actuation aerosol inhaler (Symbicort) melatonin 3 mg tablet,extended 3 mg PO HS PRN Insomnia #90 tabs 09/02/20 07/19/22 release pantoprazole 40 mg tablet,delayed 40 mg PO BID #60 tabs 09/02/20 07/19/22 release artificial 1 drp ophthalmic (eye) 4-8XD PRN 11/24/20 07/19/22 tears(vcmmfht-asbvzyzg-tmzmsmj) 0.1 %-0.3 %-0.2 % eye drops nitroglycerin 0.4 mg sublingual 0.4 mg sublingual Q5M PRN 11/24/20 07/19/22 tablet colchicine 0.6 mg capsule 0.6 mg PO DAILY gout prevention 12/15/20 07/19/22 (Mitigare) #90 caps atorvastatin 40 mg tablet 40 mg PO QHS #30 tabs 04/26/21 07/19/22 metoprolol succinate 100 mg 100 mg PO DAILY #30 tabs 04/26/21 07/19/22 tablet,extended release 24 hr sucralfate 1 gram tablet 1 g PO AC & HS #28 tabs 03/31/22 07/19/22 tamsulosin 0.4 mg capsule 0.4 mg PO DAILY #30 caps 03/31/22 07/19/22 Previous Rx's Medication Instructions Recorded thiamine mononitrate (vit B1) 100 100 mg PO DAILY #30 tabs 08/30/19 mg tablet (Vitamin B-1 (mononitrate)) finasteride 5 mg tablet 5 mg PO DAILY #30 tabs 08/23/20 tamsulosin 0.4 mg capsule 0.8 mg PO DAILY #60 caps 08/23/20 budesonide-formoterol HFA 160 2 puff inhalation BID #10.2 grams 09/02/20 mcg-4.5 mcg/actuation aerosol inhaler (Symbicort) melatonin 3 mg tablet,extended 3 mg PO HS PRN Insomnia #90 tabs 09/02/20 release pantoprazole 40 mg tablet,delayed 40 mg PO BID #60 tabs 09/02/20 release colchicine 0.6 mg capsule 0.6 mg PO DAILY gout prevention 12/15/20 (Mitigare) #90 caps atorvastatin 40 mg tablet 40 mg PO QHS #30 tabs 04/26/21 metoprolol succinate 100 mg 100 mg PO DAILY #30 tabs 04/26/21 tablet,extended release 24 hr sucralfate 1 gram tablet 1 g PO AC & HS #28 tabs 03/31/22 tamsulosin 0.4 mg capsule 0.4 mg PO DAILY #30 caps 03/31/22 Allergies Allergy/AdvReac Type Severity Reaction Status Date / Time bupropion AdvReac Severe seizures Verified 03/26/22 10:21 General Stated Complaint: RespSymp JENNA: 3 Review of Systems Narrative: Chronic cough, last drink of alcohol 2 days ago, not taking his medications as he states they ran out. Lower extremity swelling and some incontinence at home. 8 systems were reviewed and otherwise negative PFSH All Active Problems (Updated 07/19/22 @ 18:08 by Khadar Richards MD) Anemia (Chronic) CHF (congestive heart failure) (Chronic) Acute upper gastrointestinal bleeding (Acute) Alcohol abuse (Chronic) Troponin level elevated (Acute) COPD (chronic obstructive pulmonary disease) (Chronic) Gout (Chronic) Colchicine prevention Sleeping difficulty (Chronic) Melatonin RX Depression (Chronic) Plans on getting connected to social work Tineo's esophagus (Chronic ~04/2019) ETOH; Upper endoscopy 03/2019 (see path report--no tineo's?, but 08/15/2019 surg note says +tineo's) Weakness (Acute) LE weakness; Home PT Urinary retention (Chronic) Dr. Ramos Tobacco abuse disorder (Chronic) Cut down 1/2PPD COPD (chronic obstructive pulmonary disease) (Chronic) Atrial fibrillation (Chronic) Paroxysmal per hospital records; not anticoagulated secondary to recurrent GI bleeds from chronic EtOH use Alcohol use disorder (Chronic) GI bleed (Chronic) Anemia (Chronic) Medical History Tineo's esophagus Depression Gastric ulcer Hematemesis Insomnia Palliative care patient Dobbertin Radicular pain of right lower extremity Renal insufficiency Right knee pain Smoking hx UTI (urinary tract infection) Surgical History H/O esophagogastroduodenoscopy (~04/2019) [place] 10/26/[place] [facility] [place]ophagitis w/ non-bleeding esophageal ulcer. 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 poorly groomed, interactive. HEAD: Normocephalic, atraumatic ENT: Mucous membranes moist, oropharynx unremarkable, External ear exam unremarkable EYES: PERRL, EOMI NECK: Full ROM, no DIANE, no menigismus CHEST/RESP: Nontender, bilateral end expiratory wheezing CARDIOVASCULAR: Irregularly irregular,distant. 2+ Rad pulse bilateral ABDOMEN: Soft, nontender, no mass. +Bowel sounds EXT: Full ROM, 2+ pretibial edema bilateral Neuro: Grossly normal neurologic exam, conversant, interactive. Psych: Speech fluent, thoughts congruent, affect normal Course Vital Signs Vital signs: Vital Signs Temperature 36.9 C 07/19/22 15:15 Pulse 90 07/19/22 15:15 Respiratory Rate 18 07/19/22 15:15 Blood Pressure 125/58 L 07/19/22 15:15 Pulse Oximetry 100 07/19/22 15:15 Temperature 36.9 C 07/19/22 15:15 Temperature Source Oral 07/19/22 15:15 Pulse 90 07/19/22 15:15 Respiratory Rate 18 07/19/22 15:15 Respiratory Effort 07/19/22 15:25 Blood Pressure 125/58 L 07/19/22 15:15 Blood Pressure Position Sitting 07/19/22 15:15 Pulse Oximetry 100 07/19/22 15:15 Oxygen Delivery Method Room Air 07/19/22 15:15 Oxygen Flow Rate 0 07/19/22 15:15 Pain Level 8 07/19/22 15:15 PAWSS Have you Been Recently Intoxicated or Drunk Within the Last 30 days?: Yes Have you Ever Experienced Previous Episodes of Alcohol Withdrawal?: No Have you ever Experienced Withdrawal Seizures?: No Have you ever Experienced Delirium Tremens(DT)s?: No Have you ever undergone Alcohol Rehabilitation Treatment (i.e, inpt ot outpatient treatment programs)?: No Have you ever Experienced Blackouts?: No Have you ever Combined Alcohol with other Downers within the last 90 days?: No Have you ever Combined Alcohol with any other Substance of Abuse during the last 90 days?: No Positive Blood Alcohol level on Presentation? [PCS.BAL]: No Evidence of Increased Autonomic Activity (i.e. HR>120, tremor, sweating, agitation, nausea)?: No Result: 1
[2022-07-19 16:15] LABS: ALT 68 U/L (16-63); AST 189 U/L (15-37); Albumin 3.4 g/dL (3.4-5.0); Alkaline Phosphatase 155 U/L (46-116); Anion Gap 34.6 mmol/L (3-11); BUN 30 mg/dL (7-18); Bilirubin, Total 1.5 mg/dL (0.2-1.0); CO2 10.4 mmol/L (21.0-32.0); CREATININE 1.8 mg/dL (0.70-1.30); Calcium 8.3 mg/dL (8.5-10.1); Chloride 100 mmol/L (98-107); ETHANOL BLOOD 14.2 mg/dL (<10); Estimated GFR 38.53 (mL/min/1.73m2); Glucose 61 mg/dL (74-106); NT-proBNP 1054 pg/mL (<300); Potassium 5.2 mmol/L (3.5-5.1); Sodium 145 mmol/L (136-145); Total Protein 7.3 g/dL (6.4-8.2); Troponin I < 50 ng/L (<or=60)
[2022-07-19] MEDS: Normal Saline Flush 10 ML SYR IVP (16:40)
[2022-07-19] MEDS: Ondansetron 4 MG/2 ML VIAL IVP (16:40)
[2022-07-19] MEDS: Albuterol/Ipratropium 3 ML UPD VIAL UPD (16:45)
[2022-07-19] MEDS: Normal Saline 1,000 ML 100 ML IV (16:45)
[2022-07-19] MEDS: LORazepam 2 MG/ML VIAL 1 MG IVP (16:55)
[2022-07-19 17:41] LABS: Abs Immature Grans 0.27 10^3/uL (0.0-0.06); Absolute Basophil Count 0.05 10^3/uL (0.0-0.2); Absolute Monocyte Count 1.04 10^3/uL (0.1-0.8); Absolute Neutrophil Count 11.07 10^3/uL (1.2-6.7); Basophils % 0.4; HCT 24.4 % (40.0-50.0); Immature Grans % 2.1; Lymphocytes % 3.1; MCH 25.3 pg (27.0-33.0); MCHC 27.9 % (32.0-36.0); MCV 91 fL (80-95); MPV 9.8 fL (8.0-11.0); Monocytes % 8.1; Neutrophils % 86.3; Nucleated RBC 0.3 % (0.0-0.3); Platelet Count 144 10^3/uL (130-400); RBC 2.69 10^6/uL (4.36-5.78); RDW 18.6 % (11.8-14.1); RDW-SD 58.3 fL; WBC 12.83 10^3/uL (4.4-10.8)
[2022-07-19] MEDS: Metoprolol 5 MG/5 ML VIAL IVP (17:49)
[2022-07-19 17:51] LABS: HGB 6.8 g/dL (13.5-17.5)
[2022-07-19 17:56] LABS: Hypochromasia 2+; Polychromasia Present
--- NOTE | 2022-07-19 18:09 | DI.VRAD_ITS ---
PROCEDURE INFORMATION: Exam: XR Chest Exam date and time: 07/19/2022 5:27 PM Age: 77 years old Clinical indication: Other: SOB TECHNIQUE: Imaging protocol: Radiologic exam of the chest. Views: 1 view. COMPARISON: CR XR CHEST 1V IN DI DEPT 03/26/2022 12:33 PM FINDINGS: Lungs: No consolidation. Pleural spaces: No pleural effusion. No pneumothorax. Heart/Mediastinum: No cardiomegaly. Bones/joints: Unremarkable. IMPRESSION: No acute findings. Dictated and Authenticated by: Shruthi Wren MD. Ordering:GUSTAVO Rubalcava MD
[2022-07-19] MEDS: Pantoprazole 40 MG VIAL IVP (18:21)
[2022-07-19 18:49] LABS: Source Nasal/Nares
[2022-07-19 18:52] LABS: Troponin I < 50 ng/L (<or=60)
[2022-07-19 19:40] LABS: COVID-19 PCR Negative (Negative)
--- NOTE | 2022-07-19 23:33 | W.PM.HP.N ---
Date of service: 07/19/22 Time of Service: 22:33 Assessment and Plan Assessment and plan (1) Anemia: Status: Chronic Assessment and plan: He is getting on unit of PRBC, will follow h/h and use HBG 7 as threshold unless he starts to actively bleed again. Looks like he lives low. Labs c/w chronic iron deficit in the past, likely not microcytic becase of alcohol effects. Repeat levels of iron/b12. he may benefit from IV iron. (2) Acute upper gastrointestinal bleeding: Status: Acute Assessment and plan: C/w UGI bleeding. Not a large volume per report. On previous admission had endoscopies with no sitngs (3) Alcohol abuse: Status: Chronic Assessment and plan: Khoi states he is motivated to try to quit drinking. He is interested in medication like natrexone or acamprosate once he is prepping to go home. (4) CHF (congestive heart failure): Status: Chronic Assessment and plan: He has a history of CHF with mildly reduced LVEF. He has a lot of LE edema now but this may be liver related. His current SOB is realte to sever anemia. Continue to monitor clinically (5) COPD (chronic obstructive pulmonary disease): Status: Chronic Assessment and plan: Not active clinically, continue controller inhaler. (6) Urinary retention: Status: Chronic Assessment and plan: Bladder scan around 400ml per RN, getting some overflow incontinence. He prefers to avoid murry for now, will retart tamsulosin. (7) Tobacco abuse disorder: Status: Chronic Assessment and plan: NRT while inpatient. (8) Atrial fibrillation: Status: Chronic Assessment and plan: He is on metoprolol but hasn't been taking this for rate control, resume this. He is not anticoagulated because of alcoholism and lack of oo (9) DVT prophylaxis: Status: Acute Assessment and plan: active bleed. Just TEDS/SCDs (10) Smoker: Status: Acute Assessment and plan: Discussed otions. He wants nicotrol (11) Alcoholic liver disease: Status: Acute Assessment and plan: I am concerned with developing cirrhosis given low platelets recently and low normal ablumin along with the other LFTs. Will get liver imaging starting with ultrasound. (12) Discharge planning issues: Status: Acute Assessment and plan: Khoi is not strong enough to take care of himself at home. He will need PT once anema is stable, may need more support to keep him [facility]. History of Present Illness History of Present Illness Chief Complaint: spitting up dark blood Narrative: 77 yo with active alcohol use disorder and history of admssions for upper GI bleeding presented today to the emergency room with about a week of increased epigastric pain and heart burn. Today, he coughed and then vomited up a small amount of dark material that looked like it was digested blood. He had one more episode of vomiting since arriving here. Currently not anxious, still some epigastric discomfort. He has been extremely weak for days, and had stooled and urinated on himself because he was afraid he wouldn't be able to get up from toilet. He does confirm that he doesn't take his mediation when he is drinking. He does admit to daily drinking alcohol. He has multiple quit attempts, including 3 years sober after rehab stint in [place], [place] through the [place]. He has never tried medication to help combat cravings. He states he has never had significant withdrawal or DTs. Review of Systems Constitutional Constitutional: Denies anorexia, Denies chills, Denies fever(s), Denies headache(s), Reports lethargy and Reports weakness Eyes Eyes: Denies change in vision and Denies irritation ENT Ears, Nose, Mouth, and Throat: Denies dizziness, Denies headache(s), Denies nasal congestion, Denies nasal discharge and Denies sore throat Cardiovascular Cardiovascular: Denies chest pain, Reports pedal edema (bilateral over the past 2 days. This has happened before when he was sick), Denies palpitations and Denies orthopnea Respiratory Respiratory: Denies cough, Denies excessive phlegm production and Denies wheezing Gastrointestinal Gastrointestinal: Reports as per HPI, Denies melena, Denies hematochezia, Reports heartburn and Reports nausea Genitourinary Genitourinary: Denies hematuria, Denies dysuria, Reports urinary incontinence and Reports urinary urgency Integumentary/Breasts Skin/Breast: Denies rash and Denies skin ulcer Neurologic Neurologic: Denies dizziness, Denies headache(s), Denies sensory deficit and Reports weakness Psychiatric Psychiatric: Denies mood swings and Denies panic attacks Endocrine Endocrine: Denies palpitations Hematologic/Lymphatic Hematologic/Lymphatic: Denies easy bleeding Allergic/Immunologic Allergic/Immunologic: Denies wheezing PFSH All Active Problems (Updated 07/19/22 @ 23:57 by Prashant Rosales) Alcoholic liver disease (Acute) Discharge planning issues (Acute) Smoker (Acute) DVT prophylaxis (Acute) Anemia (Chronic) CHF (congestive heart failure) (Chronic) Acute upper gastrointestinal bleeding (Acute) Alcohol abuse (Chronic) Troponin level elevated (Acute) COPD (chronic obstructive pulmonary disease) (Chronic) Gout (Chronic) Colchicine prevention Sleeping difficulty (Chronic) Melatonin RX Depression (Chronic) Plans on getting connected to social work Tineo's esophagus (Chronic ~04/2019) ETOH; Upper endoscopy 03/2019 (see path report--no tineo's?, but 08/15/2019 surg note says +tineo's) Weakness (Acute) LE weakness; Home PT Urinary retention (Chronic) Dr. Ramos Tobacco abuse disorder (Chronic) Cut down 1/2PPD COPD (chronic obstructive pulmonary disease) (Chronic) Atrial fibrillation (Chronic) Paroxysmal per hospital records; not anticoagulated secondary to recurrent GI bleeds from chronic EtOH use Alcohol use disorder (Chronic) GI bleed (Chronic) Anemia (Chronic) Medical History Tineo's esophagus Depression Gastric ulcer Hematemesis Insomnia Palliative care patient Dobbertin Radicular pain of right lower extremity Renal insufficiency Right knee pain Smoking hx UTI (urinary tract infection) Surgical History H/O esophagogastroduodenoscopy (~04/2019) Repeat on 10/26/20 [facility] [place] severe reflux esophagitis w/ non-bleeding esophageal ulcer. 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) What type of physical activity do you participate in: none Do you feel safe at home: Yes Do you feel safe in your relationship?: Yes Additional Social history: Lives alone in apartment in [facility] for past ~6 years, closest family brother Owen in [place], [place] 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[place], 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 Med Allergies and Home Medications Allergies Allergy/AdvReac Type Severity Reaction Status Date / Time bupropion AdvReac Severe seizures Verified 07/19/22 18:43 Home Medications Medication Instructions Recorded Confirmed Type thiamine mononitrate (vit B1) 100 100 mg PO DAILY #30 tabs 08/30/19 07/19/22 Rx mg tablet (Vitamin B-1 (mononitrate)) finasteride 5 mg tablet 5 mg PO DAILY #30 tabs 08/23/20 07/19/22 Rx tamsulosin 0.4 mg capsule 0.8 mg PO DAILY #60 caps 08/23/20 07/19/22 Rx budesonide-formoterol HFA 160 2 puff inhalation BID #10.2 grams 09/02/20 07/19/22 Rx mcg-4.5 mcg/actuation aerosol inhaler (Symbicort) melatonin 3 mg tablet,extended 3 mg PO HS PRN Insomnia #90 tabs 09/02/20 07/19/22 Rx release pantoprazole 40 mg tablet,delayed 40 mg PO BID #60 tabs 09/02/20 07/19/22 Rx release artificial 1 drp ophthalmic (eye) 4-8XD PRN 11/24/20 07/19/22 History tears(cgirwyp-ildoihxz-kdvbyst) 0.1 %-0.3 %-0.2 % eye drops nitroglycerin 0.4 mg sublingual 0.4 mg sublingual Q5M PRN 11/24/20 07/19/22 History tablet colchicine 0.6 mg capsule 0.6 mg PO DAILY gout prevention 12/15/20 07/19/22 Rx (Mitigare) #90 caps atorvastatin 40 mg tablet 40 mg PO QHS #30 tabs 04/26/21 07/19/22 Rx metoprolol succinate 100 mg 100 mg PO DAILY #30 tabs 04/26/21 07/19/22 Rx tablet,extended release 24 hr sucralfate 1 gram tablet 1 g PO AC & HS #28 tabs 03/31/22 07/19/22 Rx tamsulosin 0.4 mg capsule 0.4 mg PO DAILY #30 caps 03/31/22 07/19/22 Rx Exam Narrative Exam Narrative: GEN: Alert and oriented, initially gruff but becomes pleasant and cooperative, gives linear history. He speaks in partial sentances, visuallly dyspneic while sitting up in bed. HEENT: Head atraumatic. Conjunctiva clear, no icterus. PEERL, EOMI. no rhinorrhea. MMM, OP benign. Neck is supple with no masses or lymphadenopathy, trachea midline LUNGS: CTAB x slight diffuse expiratory wheeze. normal effort CV: irregularly irregualar with no murmurs, gallops, or rubs. ABD: +BS, soft, ND, no fluid wave. No masses/HSM. Mild epigastric tendeness, no guarding EXT: no cyanosis, clubbing. 2+ homero edema MSK: No joint redness or swelling NEURO: CN 2-12 grossly intact. Normal movement of 4 extremities. Normal speech and coordination SKIN: No rashs or open wounds. PSYCH: normal mood and affect Results Imaging Chest x-ray: report reviewed (No acute findings) EKG: report reviewed and image reviewed Labs Result diagrams: 07/19/22 17:30 07/19/22 15:40 Labs: Laboratory Results - last 24 hr 07/19/22 07/19/22 07/19/22 15:40 17:30 18:05 WBC 12.83 H RBC 2.69 L Hgb 6.8 L* Hct 24.4 L MCV 91 MCH 25.3 L MCHC 27.9 L RDW 18.6 H Plt Count 144 MPV 9.8 Immature Gran % 2.1 Neutrophils % 86.3 Lymphocytes % 3.1 Monocytes % 8.1 Eosinophils % 0.0 Basophils % 0.4 Nucleated RBC % 0.3 Absolute Neutrophils 11.07 H Absolute Lymphocytes 0.40 L Absolute Monocytes 1.04 H Absolute Eosinophils 0.00 Absolute Basophils 0.05 Polychromasia Present Hypochromasia 2+ Sodium 145 Potassium 5.2 H Chloride 100 Carbon Dioxide 10.4 L Anion Gap 34.6 H BUN 30 H Creatinine 1.8 H Est GFR (CKD-EPI 2020) 38.53 Glucose 61 L Calcium 8.3 L Total Bilirubin 1.5 H AST 189 H ALT 68 H Alkaline Phosphatase 155 H Troponin I < 50 NT-Pro-B Natriuret Pep 1054 H Total Protein 7.3 Albumin 3.4 Ethyl Alcohol 14.2 H COVID-19 Source SARS-CoV-2 (PCR) Patient ABO/Rh O Positive Antibody Screen NEGATIVE Crossmatch See Detail 07/19/22 07/19/22 18:30 18:45 WBC RBC Hgb Hct MCV MCH MCHC RDW Plt Count MPV Immature Gran % Neutrophils % Lymphocytes % Monocytes % Eosinophils % Basophils % Nucleated RBC % Absolute Neutrophils Absolute Lymphocytes Absolute Monocytes Absolute Eosinophils Absolute Basophils Polychromasia Hypochromasia Sodium Potassium Chloride Carbon Dioxide Anion Gap BUN Creatinine Est GFR (CKD-EPI 2020) Glucose Calcium Total Bilirubin AST ALT Alkaline Phosphatase Troponin I < 50 NT-Pro-B Natriuret Pep Total Protein Albumin Ethyl Alcohol COVID-19 Source Nasal/Nares SARS-CoV-2 (PCR) Negative Patient ABO/Rh Antibody Screen Crossmatch Last Vital Signs Temp 37.1 C 07/19/22 23:24 Pulse 114 H 07/19/22 23:24 Resp 18 07/19/22 23:24 BP 122/78 07/19/22 23:24 Pulse Ox 98 07/19/22 23:24 PAWSS Have you Been Recently Intoxicated or Drunk Within the Last 30 days?: No Have you Ever Experienced Previous Episodes of Alcohol Withdrawal?: No Have you ever Experienced Withdrawal Seizures?: No Have you ever Experienced Delirium Tremens(DT)s?: No Have you ever undergone Alcohol Rehabilitation Treatment (i.e, inpt ot outpatient treatment programs)?: Yes Have you ever Experienced Blackouts?: No Have you ever Combined Alcohol with other Downers within the last 90 days?: No Have you ever Combined Alcohol with any other Substance of Abuse during the last 90 days?: No Positive Blood Alcohol level on Presentation? [PCS.BAL]: No Evidence of Increased Autonomic Activity (i.e. HR>120, tremor, sweating, agitation, nausea)?: Yes Result: 2
[2022-07-20] VITALS (11 sets, daily range): BP systolic 93–126; BP diastolic 54–78; PULSE 81–121; RESP 16–22; TEMP 36.6–37.7; O2SAT 89–98
[2022-07-20] MEDS: Normal Saline 1,000 ML 100 ML IV (01:47)
--- NOTE | 2022-07-20 07:00 | DI.US_ITS ---
Exam(s) US ABDOMEN EXAM: US ABDOMEN CLINICAL HISTORY: UGI bleeds, alcohol, signs cirrhosis/portal HTN? TECHNIQUE: Ultrasound of complete upper abdomen performed using standard protocol. COMPARISON: US US ECHOCARDIOGRAM from 03/27/2022 FINDINGS: There is no ascites evident. LIVER: Liver is hyperechoic indicating steatosis. There are no discrete focal hepatic lesions identi fied. GALLBLADDER/BILIARY: There are no gallstones. No gallbladder wall edema nor pericholecystic fluid. The common hepatic duct isupper normal, measuring 6mm at the level of venancio hepatis. PANCREAS: There is no evidence of pancreatic mass nor dilatation of the pancreatic duct. SPLEEN: The spleen is not enlarged and there are no intrasplenic lesions evident. KIDNEYS:Kidneys exhibit normal size with no evidence of solid mass, calculus, nor hydronephrosis. No cortical cysts evident. ABDOMINAL AORTA: There is no evidence of abdominal aortic aneurysm. IVC: Normal diameter where visualized. OTHER: Urinary bladder is incidentally noted to be distended, containing approximately 1035 mL. IMPRESSION: 1. No evidence of cholelithiasis nor dilatation of the biliary tree. 2. Hepatic steatosis. No focal hepatic lesion identified. 3. No other significant findings in the upper abdomen and no ascites. 4. Distended urinary bladder incidentally noted, with approximately 1035 mL. Nurse informed. DATA REPOSITORY:
[2022-07-20 07:20] LABS: Abs Immature Grans 0.06 10^3/uL (0.0-0.06); Absolute Basophil Count 0.03 10^3/uL (0.0-0.2); Absolute Lymphocyte Count 0.63 10^3/uL (1.2-3.4); Absolute Monocyte Count 0.71 10^3/uL (0.1-0.8); Absolute Neutrophil Count 6.95 10^3/uL (1.2-6.7); Basophils % 0.4; HCT 22.3 % (40.0-50.0); Immature Grans % 0.7; Lymphocytes % 7.5; MCHC 30.9 % (32.0-36.0); MCV 84 fL (80-95); MPV 9.7 fL (8.0-11.0); Monocytes % 8.5; Neutrophils % 82.9; Nucleated RBC 0.5 % (0.0-0.3); Platelet Count 111 10^3/uL (130-400); RBC 2.65 10^6/uL (4.36-5.78); RDW 17.9 % (11.8-14.1); RDW-SD 51.8 fL; WBC 8.38 10^3/uL (4.4-10.8)
[2022-07-20 07:25] LABS: HGB 6.9 g/dL (13.5-17.5)
[2022-07-20 07:40] LABS: INR 1.2 (0.9-1.1); Prothrombin Time 11.9 sec (9.3-11.0)
[2022-07-20 07:43] LABS: ALT 50 U/L (16-63); AST 120 U/L (15-37); Albumin 2.6 g/dL (3.4-5.0); Alkaline Phosphatase 98 U/L (46-116); Anion Gap 15.1 mmol/L (3-11); BUN 37 mg/dL (7-18); CO2 22.9 mmol/L (21.0-32.0); CREATININE 1.8 mg/dL (0.70-1.30); Calcium 7.2 mg/dL (8.5-10.1); Chloride 103 mmol/L (98-107); Estimated GFR 38.53 (mL/min/1.73m2); Glucose 123 mg/dL (74-106); Potassium 4.3 mmol/L (3.5-5.1); Sodium 141 mmol/L (136-145); Total Protein 5.3 g/dL (6.4-8.2)
[2022-07-20 07:44] LABS: PHOSPHORUS 3.3 mg/dL (2.6-4.7)
[2022-07-20] MEDS: Budesonide/Formoterol 160/4.5 6 GM 60 PUFF INH IH ×2 (07:49→19:47)
[2022-07-20 08:02] LABS: Iron 242 ug/dL (65-175); Total Iron Binding Capacity 354 ug/dL (250-450); Transferrin Sat 68 % (20-55)
[2022-07-20 08:06] LABS: Vitamin B12 503 pg/mL (193-986)
[2022-07-20] MEDS: Tamsulosin 0.4 MG CAPCR PO (08:06)
[2022-07-20] MEDS: Metoprolol CR 100 MG TABCR PO (08:06)
[2022-07-20] MEDS: Pantoprazole 40 MG VIAL IVP ×2 (08:07→19:36)
[2022-07-20] MEDS: Normal Saline Flush 10 ML SYR IVP ×2 (08:08→19:37)
--- NOTE | 2022-07-20 08:23 | W.SURGCON ---
Date of service: 07/20/22 Time of Service: 08:23 Assessment and Plan Assessment and plan (1) Acute upper gastrointestinal bleeding: Status: Acute Assessment and plan: - Patient came to the ER complaining of weakness and shortness of breath. He has a history of anemia and GI bleeds. His last EGD was in 2019 and did show ulcers and gastritis and changes consistent with Tineo's. He has been in the hospital multiple times with GI bleeds/alcohol induced medical problems. He currently is on Protonix 40 mg twice daily and Carafate. He received 1 unit of packed RBCs in the ER. His hemoglobin in the ER was 6.8. His hemoglobin today is 6.9. He is getting another unit of packed RBCs transfused. He is currently refusing upper scope. I did discuss with him the importance and her rationale for wanting to do this procedure, but he is currently refusing. Continue with medical therapy. Surgery will follow. (2) Radicular pain of right lower extremity: (3) Alcoholic liver disease: Status: Acute Assessment and plan: - (4) Smoker: Status: Acute (5) Anemia: Status: Chronic (6) Alcohol abuse: Status: Chronic (7) COPD (chronic obstructive pulmonary disease): Status: Chronic (8) Gout: Status: Chronic (9) Tineo's esophagus: Status: Chronic (10) Weakness: Status: Acute (11) Tobacco abuse disorder: Status: Chronic (12) COPD (chronic obstructive pulmonary disease): Status: Chronic Qualifiers: COPD type: unspecified COPD Qualified Code(s): J44.9 - Chronic obstructive pulmonary disease, unspecified (13) Personal history of noncompliance with medical treatment and regimen: Status: Acute History of Present Illness Narrative: Endoscopy Report DATE OF PROCEDURE: 08/02/20 PRE-OP DIAGNOSIS: Anemia, heme positive stool POST-OP DIAGNOSIS: other (Shallow gastric ulcers, Barretts esophagus) PROCEDURE: EGD with duodenal, gastric, esophageal biopsies SURGEON: Kateryna Snyder ANESTHESIA: MAC INDICATIONS: This 75 year old man presented with failure to thrive and was noted to have microcytic anemia with a HgB of 6.8 and heme positive stools.? He had no evidence of bleeding or other symptoms.? EGD last year showed Barretts and duodenitis. PROCEDURE DESCRIPTION: The patient was placed in the left lateral position and propofol titrated to sedation.? The endoscope was advanced into the esophagus under direct visualization.? The scope was passed through the stomach and into the duodenum.? There was mild duodenitis but no ulceration noted.? Biopsies were taken from the second portion of the duodenum to evaluate for celiac disease. The stomach itself showed a few shallow and chronic appearing ulcers near the pylorus.? There was no stigmata of recent bleeding.? Biopsies were taken from the periphery of the ulcers.? Retroflexed view of the fundus and lesser curvature was normal.? The GE junction was inspected and showed no significant stricture, inflammation, masses.? There was a short segment of? Barretts that was biopsies.? The scope was slowly withdrawn with no other esophageal lesions found. from ED 07/19: He presents via EMS with complaint of not being able to breathe over 2 days time.? States his last drink of alcohol was 2 days ago.? He also states that he is run out of some of his medications and has not been taking them regularly.? He states that he has been weak and unable to stand at home and feels weakness and edematous changes in his legs which has occurred before.? He also notes some brown-colored emesis with coughing and had dark emesis once in the ER. Today he says his stomach concerning. But he cannot exactly say where. Nursing states he had a small smear of stool but it was brown. Patient stated he has been throwing up black diarrheal in the room. He said he did not get any sleep last night and is very tired. He states he is hungry and he wants something to . He has to make shave primary like he was taking. The patient said no. He also is complaining of pain in his feet. I will talk to the patient about doing an EGD today and the results of We want to do this to identify a source of bleeding and possibly any interventions. He did receive a unit of blood last night and is hemoglobin did not go up. Patient states he is too tired to have a scope today and he just wants something for pain and wants to sleep. Review of Systems Unobtainable due to (Patient refusing to answer questions) PFSH All Active Problems (Updated 07/20/22 @ 13:06 by Madeline Mejia DO) Personal history of noncompliance with medical treatment and regimen (Acute) Alcoholic liver disease (Acute) Discharge planning issues (Acute) Smoker (Acute) DVT prophylaxis (Acute) Anemia (Chronic) CHF (congestive heart failure) (Chronic) Acute upper gastrointestinal bleeding (Acute) Alcohol abuse (Chronic) Troponin level elevated (Acute) COPD (chronic obstructive pulmonary disease) (Chronic) Gout (Chronic) Colchicine prevention Sleeping difficulty (Chronic) Melatonin RX Depression (Chronic) Plans on getting connected to social work Tineo's esophagus (Chronic ~04/2019) ETOH; Upper endoscopy 03/2019 (see path report--no tineo's?, but 08/15/2019 surg note says +tineo's) Weakness (Acute) LE weakness; Home PT Urinary retention (Chronic) Dr. Ramos Tobacco abuse disorder (Chronic) Cut down 1/2PPD COPD (chronic obstructive pulmonary disease) (Chronic) Atrial fibrillation (Chronic) Paroxysmal per hospital records; not anticoagulated secondary to recurrent GI bleeds from chronic EtOH use Alcohol use disorder (Chronic) GI bleed (Chronic) Anemia (Chronic) Medical History Tineo's esophagus Depression Gastric ulcer Hematemesis Insomnia Palliative care patient Dobbertin Radicular pain of right lower extremity Renal insufficiency Right knee pain Smoking hx UTI (urinary tract infection) Surgical History H/O esophagogastroduodenoscopy (~04/2019) Repeat on 10/26/20 [facility] [place] esophagitis w/ non-bleeding esophageal ulcer. 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 Poor dentition GI Other: Obese patient was not really willing to cooperate with physical exam. So I was unable to tell if he has an enlarged liver or any ascites. Minimal tenderness. Extrem Other: Patient complains of pain in his lower extremities. They are pink. There is some mild nonpitting edema. He he is in need of nail care. Results Last Vital Signs Temp 37.6 C H 07/20/22 07:41 Pulse 108 H 07/20/22 07:41 Resp 20 07/20/22 07:41 BP 103/65 07/20/22 07:41 Pulse Ox 93 07/20/22 07:41 Labs Result diagrams: 07/20/22 06:15 07/20/22 06:15 Labs: Laboratory Results - last 24 hr 07/19/22 07/19/22 07/19/22 15:40 17:30 18:05 WBC 12.83 H RBC 2.69 L Hgb 6.8 L* Hct 24.4 L MCV 91 MCH 25.3 L MCHC 27.9 L RDW 18.6 H Plt Count 144 MPV 9.8 Immature Gran % 2.1 Neutrophils % 86.3 Lymphocytes % 3.1 Monocytes % 8.1 Eosinophils % 0.0 Basophils % 0.4 Nucleated RBC % 0.3 Absolute Neutrophils 11.07 H Absolute Lymphocytes 0.40 L Absolute Monocytes 1.04 H Absolute Eosinophils 0.00 Absolute Basophils 0.05 Polychromasia Present Hypochromasia 2+ PT INR Sodium 145 Potassium 5.2 H Chloride 100 Carbon Dioxide 10.4 L Anion Gap 34.6 H BUN 30 H Creatinine 1.8 H Est GFR (CKD-EPI 2020) 38.53 Glucose 61 L Calcium 8.3 L Phosphorus Magnesium Iron TIBC Transferrin % Sat Total Bilirubin 1.5 H AST 189 H ALT 68 H Alkaline Phosphatase 155 H Troponin I < 50 NT-Pro-B Natriuret Pep 1054 H Total Protein 7.3 Albumin 3.4 Vitamin B12 Ethyl Alcohol 14.2 H COVID-19 Source SARS-CoV-2 (PCR) Patient ABO/Rh O Positive Antibody Screen NEGATIVE Crossmatch See Detail 07/19/22 07/19/22 07/19/22 18:30 18:45 Unknown WBC RBC Hgb Cancelled Hct Cancelled MCV MCH MCHC RDW Plt Count MPV Immature Gran % Neutrophils % Lymphocytes % Monocytes % Eosinophils % Basophils % Nucleated RBC % Absolute Neutrophils Absolute Lymphocytes Absolute Monocytes Absolute Eosinophils Absolute Basophils Polychromasia Hypochromasia PT INR Sodium Potassium Chloride Carbon Dioxide Anion Gap BUN Creatinine Est GFR (CKD-EPI 2020) Glucose Calcium Phosphorus Magnesium Iron TIBC Transferrin % Sat Total Bilirubin AST ALT Alkaline Phosphatase Troponin I < 50 NT-Pro-B Natriuret Pep Total Protein Albumin Vitamin B12 Ethyl Alcohol COVID-19 Source Nasal/Nares SARS-CoV-2 (PCR) Negative Patient ABO/Rh Antibody Screen Crossmatch 07/20/22 07/20/22 07/20/22 06:15 06:15 06:15 WBC RBC Hgb Hct MCV MCH MCHC RDW Plt Count MPV Immature Gran % Neutrophils % Lymphocytes % Monocytes % Eosinophils % Basophils % Nucleated RBC % Absolute Neutrophils Absolute Lymphocytes Absolute Monocytes Absolute Eosinophils Absolute Basophils Polychromasia Hypochromasia PT 11.9 H INR 1.2 H Sodium Potassium Chloride Carbon Dioxide Anion Gap BUN Creatinine Est GFR (CKD-EPI 2020) Glucose Calcium Phosphorus 3.3 Magnesium 1.0 L Iron TIBC Transferrin % Sat Total Bilirubin AST ALT Alkaline Phosphatase Troponin I NT-Pro-B Natriuret Pep Total Protein Albumin Vitamin B12 Ethyl Alcohol COVID-19 Source SARS-CoV-2 (PCR) Patient ABO/Rh Antibody Screen Crossmatch 07/20/22 07/20/22 07/20/22 06:15 06:15 06:15 WBC 8.38 RBC 2.65 L Hgb 6.9 L* Hct 22.3 L MCV 84 D MCH 26.0 L MCHC 30.9 L D RDW 17.9 H Plt Count 111 L MPV 9.7 Immature Gran % 0.7 Neutrophils % 82.9 Lymphocytes % 7.5 Monocytes % 8.5 Eosinophils % 0.0 Basophils % 0.4 Nucleated RBC % 0.5 H Absolute Neutrophils 6.95 H Absolute Lymphocytes 0.63 L Absolute Monocytes 0.71 Absolute Eosinophils 0.00 Absolute Basophils 0.03 Polychromasia Hypochromasia PT INR Sodium 141 Potassium 4.3 Chloride 103 Carbon Dioxide 22.9 Anion Gap 15.1 H BUN 37 H Creatinine 1.8 H Est GFR (CKD-EPI 2020) 38.53 Glucose 123 H Calcium 7.2 L Phosphorus Magnesium Iron 242 H TIBC 354 Transferrin % Sat 68 H Total Bilirubin 2.0 H AST 120 H ALT 50 Alkaline Phosphatase 98 Troponin I NT-Pro-B Natriuret Pep Total Protein 5.3 L Albumin 2.6 L Vitamin B12 Ethyl Alcohol COVID-19 Source SARS-CoV-2 (PCR) Patient ABO/Rh Antibody Screen Crossmatch 07/20/22 06:15 WBC RBC Hgb Hct MCV MCH MCHC RDW Plt Count MPV Immature Gran % Neutrophils % Lymphocytes % Monocytes % Eosinophils % Basophils % Nucleated RBC % Absolute Neutrophils Absolute Lymphocytes Absolute Monocytes Absolute Eosinophils Absolute Basophils Polychromasia Hypochromasia PT INR Sodium Potassium Chloride Carbon Dioxide Anion Gap BUN Creatinine Est GFR (CKD-EPI 2020) Glucose Calcium Phosphorus Magnesium Iron TIBC Transferrin % Sat Total Bilirubin AST ALT Alkaline Phosphatase Troponin I NT-Pro-B Natriuret Pep Total Protein Albumin Vitamin B12 503 Ethyl Alcohol COVID-19 Source SARS-CoV-2 (PCR) Patient ABO/Rh Antibody Screen Crossmatch
[2022-07-20] MEDS: LORazepam 1 MG TAB PO/SL (08:32)
[2022-07-20] MEDS: Sucralfate 1 GM TAB PO ×3 (08:40→19:36)
[2022-07-20] MEDS: diphenhydrAMINE 25 MG CAP PO (08:40)
[2022-07-20] MEDS: Acetaminophen 325 MG TAB 650 MG PO (08:41)
--- NOTE | 2022-07-20 11:26 | PDOC.CMIN ---
- If Service Date Differs Date of service: 07/20/22 Time of Service: 11:26 Care Management Initial Assess REASON FOR HOSPITALIZATION:: GI Bleed PAST MEDICAL HISTORY/PAST SURGICAL HISTORY:: Medical History . Cooper's esophagus. Depression. Gastric ulcer. Hematemesis. Insomnia. Palliative care patient. Dobbertin. Radicular pain of right lower extremity. Renal insufficiency. Right knee pain. Smoking hx. UTI (urinary tract infection). Surgical History . H/O esophagogastroduodenoscopy (~04/2019). Repeat on 10/26/20 [facility] [place]. severe reflux esophagitis w/ non-bleeding esophageal ulcer. Multiplle inflammatory appearing nodules at GEJ PREVIOUS FUNCTIONAL STATUS/SOCIAL/FAMILY SUPPORTS:: Khoi lives alone in an apartment in [facility]. He is a of both the [employer] and the [employer]. He has a brother in [facility], who is supportive of him. He also has two sons who reside in [place], but Rufino has limited contact with them. CURRENT FUNCTIONAL STATUS:: Khoi was sleeping soundly, with the television on when CM attempted to meet with him. He is well known to this designer/writer from previous admissions. CM will continue to follow. ADVANCE DIRECTIVES:: COLST on file Has patient been provided with info about the portal/API?: Yes Did the patient sign up for the portal?: No CODE STATUS:: Full Code INSURANCE COVERAGE / FINANCIAL ISSUES:: [facility]. Medicaid. Medicare CURRENT HOME/COMMUNITY SERVICES/EQUIPMENT:: Tub seat, Walker, private nursing program manager 2x/week PRIMARY CARE PHYSICIAN:: Desirae Panda POTENTIAL DISCHARGE NEEDS:: Follow up with PCP and plan of care, coordination of increased services if appropriate. PATIENT/FAMILY EDUCATION NEEDS:: Review of discharge instructions, medications, limitations, follow up plan, Ask Me Three ANTICIPATED BARRIERS TO DISCHARGE:: None identified at this time. TRANSPORTATION:: Via private vehicle with a friend or RCT. PLAN:: Rufino continues to be closely monitored. He will be evaluated for need of increased services prior to discharge. He will transport via private vehicle with a friend or RCT. CM continues to follow.
[2022-07-20] MEDS: MULTIVITAMIN 10 ML, THIAMINE 100 MG, FOLIC ACID 1 MG in DEXTROSE 5%-0.45% SALINE 1,000 ML 42 ML IV (12:27)
--- NOTE | 2022-07-20 16:14 | PGE_ITS ---
Date of Service Date of service: 07/20/22 Time of Service: 16:14 Assessment and Plan Assessment and plan (1) Anemia: Status: Chronic Assessment and plan: Hgb 7.9 Hct 24.7 -check H&H tomorrow; Labs c/w chronic iron deficit in the past, Repeat levels of iron - 242 /B12 503 (2) Acute upper gastrointestinal bleeding: Status: Acute Assessment and plan: UGI bleeding - no emesis; protonix and carafate - declines scope; see surgery note (3) Alcohol abuse: Status: Chronic Assessment and plan: Khoi states he is motivated to try to quit drinking. He is interested in medication like natrexone or acamprosate once he is prepping to go home. (4) CHF (congestive heart failure): Status: Chronic Assessment and plan: He has a history of CHF with mildly reduced LVEF. BLE edema, lungs are clear. SPO2 94% - Continue to monitor clinically (5) COPD (chronic obstructive pulmonary disease): Status: Chronic Assessment and plan: Not active clinically, continue controller inhaler. (6) Urinary retention: Status: Chronic Assessment and plan: Tamulosin was started; had > 1000 ml in bladder @ US - indwelling urinary catheter placed. (7) Tobacco abuse disorder: Status: Chronic Assessment and plan: NRT while inpatient. (8) Atrial fibrillation: Status: Chronic Assessment and plan: He is on metoprolol but hasn't been taking this for rate control - resumed He is not anticoagulated because of alcoholism (9) DVT prophylaxis: Status: Acute Assessment and plan: active bleed. Just TEDS/SCDs (10) Smoker: Status: Acute Assessment and plan: Nicotrol (11) Alcoholic liver disease: Status: Acute Assessment and plan: I am concerned with developing cirrhosis given low platelets recently and low normal ablumin along with the other LFTs. ABD US: 1.? No evidence of cholelithiasis nor dilatation of the biliary tree.? 2.? Hepatic steatosis.? No focal hepatic lesion identified. 3.? No other significant findings in the upper abdomen and no ascites. 4.? Distended urinary bladder incidentally noted, with approximately 1035 mL.? (12) Discharge planning issues: Status: Acute Assessment and plan: Khoi is not strong enough to take care of himself at home. He will need PT once anema is stable, may need more support to keep him out of longterm. Exam Narrative Exam Narrative: GEN: Alert and oriented, somewhat cooperative. HEENT: Head atraumatic. Conjunctiva clear, no icterus. PEERL, EOMI. no rhinorrhea. MMM, OP benign. Neck is supple with no masses or lymphadenopathy, trachea midline LUNGS: CTAB normal effort CV: irregularly irregualar with no murmurs, gallops, or rubs. ABD: +BS, soft, ND, no fluid wave. No masses. No guarding EXT: no cyanosis, clubbing. 2+ homero edema MSK: No joint redness or swelling NEURO: CN 2-12 grossly intact. Normal movement of 4 extremities. Normal speech and coordination SKIN: No rashs or open wounds. PSYCH: normal mood and affect Objective Last Vital Signs Temp 37.0 C 07/20/22 15:29 Pulse 81 07/20/22 15:29 Resp 20 07/20/22 15:29 BP 102/62 07/20/22 15:29 Pulse Ox 92 07/20/22 15:29 Laboratory Results - last 24 hr 07/19/22 07/19/22 07/19/22 15:40 17:30 18:05 WBC 12.83 H RBC 2.69 L Hgb 6.8 L* Hct 24.4 L MCV 91 MCH 25.3 L MCHC 27.9 L RDW 18.6 H Plt Count 144 MPV 9.8 Immature Gran % 2.1 Neutrophils % 86.3 Lymphocytes % 3.1 Monocytes % 8.1 Eosinophils % 0.0 Basophils % 0.4 Nucleated RBC % 0.3 Absolute Neutrophils 11.07 H Absolute Lymphocytes 0.40 L Absolute Monocytes 1.04 H Absolute Eosinophils 0.00 Absolute Basophils 0.05 Polychromasia Present Hypochromasia 2+ PT INR Sodium 145 Potassium 5.2 H Chloride 100 Carbon Dioxide 10.4 L Anion Gap 34.6 H BUN 30 H Creatinine 1.8 H Est GFR (CKD-EPI 2020) 38.53 Glucose 61 L Calcium 8.3 L Phosphorus Magnesium Iron TIBC Transferrin % Sat Total Bilirubin 1.5 H AST 189 H ALT 68 H Alkaline Phosphatase 155 H Troponin I < 50 NT-Pro-B Natriuret Pep 1054 H Total Protein 7.3 Albumin 3.4 Vitamin B12 Ethyl Alcohol 14.2 H COVID-19 Source SARS-CoV-2 (PCR) Patient ABO/Rh O Positive Antibody Screen NEGATIVE Crossmatch See Detail 07/19/22 07/19/22 07/19/22 18:30 18:45 Unknown WBC RBC Hgb Cancelled Hct Cancelled MCV MCH MCHC RDW Plt Count MPV Immature Gran % Neutrophils % Lymphocytes % Monocytes % Eosinophils % Basophils % Nucleated RBC % Absolute Neutrophils Absolute Lymphocytes Absolute Monocytes Absolute Eosinophils Absolute Basophils Polychromasia Hypochromasia PT INR Sodium Potassium Chloride Carbon Dioxide Anion Gap BUN Creatinine Est GFR (CKD-EPI 2020) Glucose Calcium Phosphorus Magnesium Iron TIBC Transferrin % Sat Total Bilirubin AST ALT Alkaline Phosphatase Troponin I < 50 NT-Pro-B Natriuret Pep Total Protein Albumin Vitamin B12 Ethyl Alcohol COVID-19 Source Nasal/Nares SARS-CoV-2 (PCR) Negative Patient ABO/Rh Antibody Screen Crossmatch 07/20/22 07/20/22 07/20/22 06:15 06:15 06:15 WBC RBC Hgb Hct MCV MCH MCHC RDW Plt Count MPV Immature Gran % Neutrophils % Lymphocytes % Monocytes % Eosinophils % Basophils % Nucleated RBC % Absolute Neutrophils Absolute Lymphocytes Absolute Monocytes Absolute Eosinophils Absolute Basophils Polychromasia Hypochromasia PT 11.9 H INR 1.2 H Sodium Potassium Chloride Carbon Dioxide Anion Gap BUN Creatinine Est GFR (CKD-EPI 2020) Glucose Calcium Phosphorus 3.3 Magnesium 1.0 L Iron TIBC Transferrin % Sat Total Bilirubin AST ALT Alkaline Phosphatase Troponin I NT-Pro-B Natriuret Pep Total Protein Albumin Vitamin B12 Ethyl Alcohol COVID-19 Source SARS-CoV-2 (PCR) Patient ABO/Rh Antibody Screen Crossmatch 07/20/22 07/20/22 07/20/22 06:15 06:15 06:15 WBC 8.38 RBC 2.65 L Hgb 6.9 L* Hct 22.3 L MCV 84 D MCH 26.0 L MCHC 30.9 L D RDW 17.9 H Plt Count 111 L MPV 9.7 Immature Gran % 0.7 Neutrophils % 82.9 Lymphocytes % 7.5 Monocytes % 8.5 Eosinophils % 0.0 Basophils % 0.4 Nucleated RBC % 0.5 H Absolute Neutrophils 6.95 H Absolute Lymphocytes 0.63 L Absolute Monocytes 0.71 Absolute Eosinophils 0.00 Absolute Basophils 0.03 Polychromasia Hypochromasia PT INR Sodium 141 Potassium 4.3 Chloride 103 Carbon Dioxide 22.9 Anion Gap 15.1 H BUN 37 H Creatinine 1.8 H Est GFR (CKD-EPI 2020) 38.53 Glucose 123 H Calcium 7.2 L Phosphorus Magnesium Iron 242 H TIBC 354 Transferrin % Sat 68 H Total Bilirubin 2.0 H AST 120 H ALT 50 Alkaline Phosphatase 98 Troponin I NT-Pro-B Natriuret Pep Total Protein 5.3 L Albumin 2.6 L Vitamin B12 Ethyl Alcohol COVID-19 Source SARS-CoV-2 (PCR) Patient ABO/Rh Antibody Screen Crossmatch 07/20/22 06:15 WBC RBC Hgb Hct MCV MCH MCHC RDW Plt Count MPV Immature Gran % Neutrophils % Lymphocytes % Monocytes % Eosinophils % Basophils % Nucleated RBC % Absolute Neutrophils Absolute Lymphocytes Absolute Monocytes Absolute Eosinophils Absolute Basophils Polychromasia Hypochromasia PT INR Sodium Potassium Chloride Carbon Dioxide Anion Gap BUN Creatinine Est GFR (CKD-EPI 2020) Glucose Calcium Phosphorus Magnesium Iron TIBC Transferrin % Sat Total Bilirubin AST ALT Alkaline Phosphatase Troponin I NT-Pro-B Natriuret Pep Total Protein Albumin Vitamin B12 503 Ethyl Alcohol COVID-19 Source SARS-CoV-2 (PCR) Patient ABO/Rh Antibody Screen Crossmatch Reviewed Pertinent PMH: Yes PAWSS Have you Been Recently Intoxicated or Drunk Within the Last 30 days?: No Have you Ever Experienced Previous Episodes of Alcohol Withdrawal?: No Have you ever Experienced Withdrawal Seizures?: No Have you ever Experienced Delirium Tremens(DT)s?: No Have you ever undergone Alcohol Rehabilitation Treatment (i.e, inpt ot outpatient treatment programs)?: Yes Have you ever Experienced Blackouts?: No Have you ever Combined Alcohol with other Downers within the last 90 days?: No Have you ever Combined Alcohol with any other Substance of Abuse during the last 90 days?: No Positive Blood Alcohol level on Presentation? [PCS.BAL]: No Evidence of Increased Autonomic Activity (i.e. HR>120, tremor, sweating, agitation, nausea)?: Yes Result: 2
[2022-07-20 16:32] LABS: HCT 24.7 % (40.0-50.0); HGB 7.9 g/dL (13.5-17.5)
[2022-07-20] MEDS: MAGNESIUM SULFATE 4 GM/100 ML BAG IVPB (18:02)
[2022-07-21] VITALS (9 sets, daily range): BP systolic 115–127; BP diastolic 68–81; PULSE 66–78; RESP 2–20; TEMP 36.2–37.4; O2SAT 94–98
--- NOTE | 2022-07-21 00:04 | NUR.NOTE ---
Nursing Note: PT c/o right gluteal fold hurting. I went to check on the status and reposition pt and found him incontinent of stool with shards of toilet paper stuffed into his anal region. PT stated he does that to decrease leakage.
[2022-07-21] MEDS: HYDROcodone 5/Acetaminophen 325 TAB PO (03:25)
[2022-07-21] MEDS: Melatonin 3 MG TAB PO ×2 (03:25→20:52)
[2022-07-21] MEDS: Levalbuterol 0.63 MG/3 ML UPD VIAL UPD ×2 (03:26→19:44)
[2022-07-21] MEDS: Sucralfate 1 GM TAB PO ×4 (03:26→19:30)
[2022-07-21 07:52] LABS: HGB 7.7 g/dL (13.5-17.5)
[2022-07-21] MEDS: Pantoprazole 40 MG VIAL IVP ×2 (07:59→19:30)
[2022-07-21] MEDS: Normal Saline Flush 10 ML SYR IVP ×2 (08:00→19:30)
[2022-07-21] MEDS: Tamsulosin 0.4 MG CAPCR PO (08:25)
[2022-07-21] MEDS: Metoprolol CR 100 MG TABCR PO (08:26)
[2022-07-21] MEDS: Budesonide/Formoterol 160/4.5 6 GM 60 PUFF INH IH ×2 (08:51→19:31)
--- NOTE | 2022-07-21 09:33 | W.PM.PROGNOT ---
Date of Service Date of service: 07/21/22 Time of Service: 09:33 Assessment and Plan Assessment and plan (1) Personal history of noncompliance with medical treatment and regimen: Status: Acute (2) Alcoholic liver disease: Status: Acute (3) Smoker: Status: Acute (4) Anemia: Status: Chronic (5) Acute upper gastrointestinal bleeding: Status: Acute (6) Troponin level elevated: Status: Acute (7) COPD (chronic obstructive pulmonary disease): Status: Chronic (8) Cooper's esophagus: Status: Chronic (9) Atrial fibrillation: Status: Chronic (10) Alcohol use disorder: Status: Chronic Subjective Subjective Interval history since last seen: Patient is tolerating clear p.o.'s. He had a small bowel movement. His hemoglobin is slightly improved today. His LFTs are improved today?see labs. He is tolerating p.o. Protonix and Carafate. He is currently refusing EGD. Patient needs to stop drinking. He refuses to go to rehab. Continue medical management. We will reevaluate as necessary. Objective Last Vital Signs Temp 36.2 C L 07/21/22 07:25 Pulse 78 07/21/22 07:25 Resp 18 07/21/22 07:25 BP 116/76 07/21/22 07:25 Pulse Ox 94 07/21/22 07:25 Laboratory Results - last 24 hr 07/19/22 07/20/22 07/21/22 18:05 16:27 07:45 Hgb 7.9 L 7.7 L Hct 24.7 L 25.0 L Patient ABO/Rh O Positive Antibody Screen NEGATIVE Crossmatch See Detail PAWSS Have you Been Recently Intoxicated or Drunk Within the Last 30 days?: No Have you Ever Experienced Previous Episodes of Alcohol Withdrawal?: No Have you ever Experienced Withdrawal Seizures?: No Have you ever Experienced Delirium Tremens(DT)s?: No Have you ever undergone Alcohol Rehabilitation Treatment (i.e, inpt ot outpatient treatment programs)?: Yes Have you ever Experienced Blackouts?: No Have you ever Combined Alcohol with other Downers within the last 90 days?: No Have you ever Combined Alcohol with any other Substance of Abuse during the last 90 days?: No Positive Blood Alcohol level on Presentation? [PCS.BAL]: No Evidence of Increased Autonomic Activity (i.e. HR>120, tremor, sweating, agitation, nausea)?: Yes Result: 2
--- NOTE | 2022-07-21 10:36 | W.PM.PROGNOT ---
Date of Service Date of service: 07/21/22 Time of Service: 10:36 Assessment and Plan Assessment and plan (1) Anemia: Status: Chronic Assessment and plan: Hgb 7.7 Hct 25 - check H&H tomorrow (2) Acute upper gastrointestinal bleeding: Status: Acute Assessment and plan: UGI bleeding - no emesis; protonix and carafate - continues to decline scope; see surgery note - advanced diet as tolerated. Unable to tolerate lunch and is keeping to clears - added antiemetic ondansetron (3) Alcohol abuse: Status: Chronic Assessment and plan: Khoi states he is motivated to try to quit drinking. He is interested in medication like natrexone or acamprosate once he is prepping to go home. (4) CHF (congestive heart failure): Status: Chronic Assessment and plan: He has a history of CHF with mildly reduced LVEF. BLE edema, lungs are clear. SPO2 94% - Continue to monitor clinically (5) COPD (chronic obstructive pulmonary disease): Status: Chronic Assessment and plan: Not active clinically, continue controller inhaler. (6) Urinary retention: Status: Chronic Assessment and plan: Tamulosin was started; indwelling urinary catheter, will remove tomorrow 07/22/22 and do a voiding trial. (7) Tobacco abuse disorder: Status: Chronic Assessment and plan: NRT while inpatient. (8) Atrial fibrillation: Status: Chronic Assessment and plan: He is on metoprolol but hasn't been taking this for rate control - resumed He is not anticoagulated because of alcoholism (9) DVT prophylaxis: Status: Acute Assessment and plan: active bleed. Just TEDS/SCDs (10) Smoker: Status: Acute Assessment and plan: Nicotrol (11) Alcoholic liver disease: Status: Acute Assessment and plan: no lesions on US (12) Discharge planning issues: Status: Acute Assessment and plan: Khoi is not strong enough to take care of himself at home. He will need PT once anema is stable, may need more support to keep him out of detention. Objective Last Vital Signs Temp 36.2 C L 07/21/22 07:25 Pulse 78 07/21/22 07:25 Resp 18 07/21/22 07:25 BP 116/76 07/21/22 07:25 Pulse Ox 94 10/22/22 07:25 Laboratory Results - last 24 hr 07/19/22 07/20/22 07/21/22 18:05 16:27 07:45 Hgb 7.9 L 7.7 L Hct 24.7 L 25.0 L Crossmatch See Detail PAWSS Have you Been Recently Intoxicated or Drunk Within the Last 30 days?: No Have you Ever Experienced Previous Episodes of Alcohol Withdrawal?: No Have you ever Experienced Withdrawal Seizures?: No Have you ever Experienced Delirium Tremens(DT)s?: No Have you ever undergone Alcohol Rehabilitation Treatment (i.e, inpt ot outpatient treatment programs)?: Yes Have you ever Experienced Blackouts?: No Have you ever Combined Alcohol with other Downers within the last 90 days?: No Have you ever Combined Alcohol with any other Substance of Abuse during the last 90 days?: No Positive Blood Alcohol level on Presentation? [PCS.BAL]: No Evidence of Increased Autonomic Activity (i.e. HR>120, tremor, sweating, agitation, nausea)?: Yes Result: 2
[2022-07-21 12:25] LABS: Anion Gap 9.9 mmol/L (3-11); BUN 35 mg/dL (7-18); CO2 25.1 mmol/L (21.0-32.0); CREATININE 1.5 mg/dL (0.70-1.30); Calcium 7.3 mg/dL (8.5-10.1); Chloride 104 mmol/L (98-107); Estimated GFR 47.95 (mL/min/1.73m2); Glucose 120 mg/dL (74-106); Potassium 3.8 mmol/L (3.5-5.1); Sodium 139 mmol/L (136-145)
[2022-07-21 12:52] LABS: Lab Add On Test DONE
[2022-07-21 12:59] LABS: Magnesium 1.8 mg/dL (1.8-2.4)
[2022-07-21] MEDS: MULTIVITAMIN 10 ML, THIAMINE 100 MG, FOLIC ACID 1 MG in DEXTROSE 5%-0.45% SALINE 1,000 ML 42 ML IV (14:26)
[2022-07-22] MEDS: Sucralfate 1 GM TAB PO ×4 (01:49→20:14)
[2022-07-22 03:27] VITALS: O2SAT 99
[2022-07-22 06:52] LABS: Abs Immature Grans 0.06 10^3/uL (0.0-0.06); Absolute Basophil Count 0.02 10^3/uL (0.0-0.2); Absolute Eosinophil Count 0.09 10^3/uL (0.0-0.7); Absolute Lymphocyte Count 0.75 10^3/uL (1.2-3.4); Absolute Monocyte Count 0.55 10^3/uL (0.1-0.8); Absolute Neutrophil Count 3.48 10^3/uL (1.2-6.7); Basophils % 0.4; Eosinophils % 1.8; HCT 25.1 % (40.0-50.0); HGB 7.9 g/dL (13.5-17.5); Immature Grans % 1.2; Lymphocytes % 15.2; MCHC 31.5 % (32.0-36.0); MCV 86 fL (80-95); MPV 10.2 fL (8.0-11.0); Monocytes % 11.1; Neutrophils % 70.3; Nucleated RBC 0.4 % (0.0-0.3); Platelet Count 102 10^3/uL (130-400); RBC 2.93 10^6/uL (4.36-5.78); RDW 17.9 % (11.8-14.1); RDW-SD 54.4 fL; WBC 4.95 10^3/uL (4.4-10.8)
[2022-07-22 06:57] LABS: Anion Gap 9.7 mmol/L (3-11); BUN 28 mg/dL (7-18); CO2 26.3 mmol/L (21.0-32.0); CREATININE 1.2 mg/dL (0.70-1.30); Calcium 7.4 mg/dL (8.5-10.1); Chloride 103 mmol/L (98-107); Estimated GFR 62.67 (mL/min/1.73m2); Glucose 127 mg/dL (74-106); Magnesium 1.6 mg/dL (1.8-2.4); Potassium 3.6 mmol/L (3.5-5.1); Sodium 139 mmol/L (136-145)
[2022-07-22 07:13] VITALS: BP 128/75; PULSE 74; RESP 18; TEMP 36.4; O2SAT 99
[2022-07-22] MEDS: Budesonide/Formoterol 160/4.5 6 GM 60 PUFF INH IH ×2 (07:58→20:14)
[2022-07-22] MEDS: Normal Saline Flush 10 ML SYR IVP ×2 (08:15→20:14)
[2022-07-22] MEDS: Tamsulosin 0.4 MG CAPCR PO (08:15)
[2022-07-22] MEDS: Metoprolol CR 100 MG TABCR PO (08:15)
[2022-07-22] MEDS: Pantoprazole 40 MG VIAL IVP ×2 (08:15→20:14)
--- NOTE | 2022-07-22 09:59 | W.PM.PROGNOT ---
Date of Service Date of service: 07/22/22 Time of Service: 09:59 Assessment and Plan Assessment and plan (1) Anemia: Status: Chronic Assessment and plan: Hgb 7.9 Hct 25.1; back to his baseline; no current bleeding, will hematest stool - check H&H tomorrow (2) Acute upper gastrointestinal bleeding: Status: Acute Assessment and plan: UGI bleeding - no emesis; continue protonix and carafate - continues to decline scope; see surgery note - advanced diet as tolerated. He is refusing to eat solid food, continues to have Popsicles and clears. He has not complained to nursing or I about nausea. He has not requested any PRN antiemetics. Check H&H tomorrow (3) Alcohol abuse: Status: Chronic Assessment and plan: Khoi states he is motivated to try to quit drinking. He is interested in medication like natrexone or acamprosate once he is prepping to go home. He continues to say he wants to stop drinking but does not have a plan. (4) CHF (congestive heart failure): Status: Chronic Assessment and plan: He has a history of CHF with mildly reduced LVEF. BLE edema is unchanged, 2+, palp pulses, lungs are clear. SPO2 94% - Continue to monitor clinically (5) COPD (chronic obstructive pulmonary disease): Status: Chronic Assessment and plan: Not active clinically, continue controller inhaler. (6) Urinary retention: Status: Chronic Assessment and plan: Tamulosin was started; indwelling urinary catheter, removed - at this writing has not voided. (7) Tobacco abuse disorder: Status: Chronic Assessment and plan: NRT while inpatient. (8) Atrial fibrillation: Status: Chronic Assessment and plan: He is on metoprolol but hasn't been taking this for rate control - resumed He is not anticoagulated because of alcoholism (9) DVT prophylaxis: Status: Acute Assessment and plan: active bleed. Just TEDS/SCDs (10) Smoker: Status: Acute Assessment and plan: Nicotrol (11) Alcoholic liver disease: Status: Acute Assessment and plan: no lesions on US, monitor LFTs (12) Discharge planning issues: Status: Acute Assessment and plan: Khoi does not want to go home. He states he is too weak to go home; he lives by himself. Discussed rehab; he is in agreement that is a good option to help him with strengthening and indurance. Subjective Subjective Patient reports: no new complaints, tolerating liquids well and afebrile; denies diarrhea, nausea or vomiting Interval history since last seen: Cornejo catheter removed, DTV but has not been 6 hours. He does not want to get out of bed and states he is too weak to do anything. We discussed he going to rehab to gain strength. He agrees to going to rehab. He states he lives by himself and won't be able to manage. He is physically able to get out of bed, he is however refusing. Exam Narrative Exam Narrative: GEN: Alert and oriented, somewhat cooperative. HEENT: Head atraumatic. Conjunctiva clear, no icterus. PEERL, EOMI. no rhinorrhea. MMM, OP benign. Neck is supple with no masses or lymphadenopathy, trachea midline LUNGS: CTAB normal effort CV: irregularly irregualar with no murmurs, gallops, or rubs. ABD: +BS, soft, ND, no fluid wave. No masses. No guarding EXT: no cyanosis, clubbing. 2+ homero edema MSK: No joint redness or swelling NEURO: CN 2-12 grossly intact. Normal movement of 4 extremities. Normal speech and coordination SKIN: No rashs or open wounds. PSYCH: blunted mood and affect Const General: cooperative, comfortable and no acute distress Nutritional Appearance: obese Orientation: alert, awake and oriented x3 Objective Last Vital Signs Temp 36.4 C L 07/22/22 07:13 Pulse 74 07/22/22 07:13 Resp 18 07/22/22 07:13 BP 128/75 07/22/22 07:13 Pulse Ox 99 07/22/22 07:13 Laboratory Results - last 24 hr 07/21/22 07/21/22 07/21/22 11:45 11:45 11:45 WBC RBC Hgb Hct MCV MCH MCHC RDW Plt Count MPV Immature Gran % Neutrophils % Lymphocytes % Monocytes % Eosinophils % Basophils % Nucleated RBC % Absolute Neutrophils Absolute Lymphocytes Absolute Monocytes Absolute Eosinophils Absolute Basophils Sodium 139 Potassium 3.8 Chloride 104 Carbon Dioxide 25.1 Anion Gap 9.9 BUN 35 H Creatinine 1.5 H Est GFR (CKD-EPI 2020) 47.95 Glucose 120 H Calcium 7.3 L Magnesium 1.8 Add-On Test Request DONE 07/22/22 07/22/22 06:33 06:33 WBC 4.95 RBC 2.93 L Hgb 7.9 L Hct 25.1 L MCV 86 MCH 27.0 MCHC 31.5 L RDW 17.9 H Plt Count 102 L MPV 10.2 Immature Gran % 1.2 Neutrophils % 70.3 Lymphocytes % 15.2 Monocytes % 11.1 Eosinophils % 1.8 Basophils % 0.4 Nucleated RBC % 0.4 H Absolute Neutrophils 3.48 Absolute Lymphocytes 0.75 L Absolute Monocytes 0.55 Absolute Eosinophils 0.09 Absolute Basophils 0.02 Sodium 139 Potassium 3.6 Chloride 103 Carbon Dioxide 26.3 Anion Gap 9.7 BUN 28 H Creatinine 1.2 Est GFR (CKD-EPI 2020) 62.67 Glucose 127 H Calcium 7.4 L Magnesium 1.6 L Add-On Test Request Reviewed Pertinent PMH: Yes PAWSS Have you Been Recently Intoxicated or Drunk Within the Last 30 days?: No Have you Ever Experienced Previous Episodes of Alcohol Withdrawal?: No Have you ever Experienced Withdrawal Seizures?: No Have you ever Experienced Delirium Tremens(DT)s?: No Have you ever undergone Alcohol Rehabilitation Treatment (i.e, inpt ot outpatient treatment programs)?: Yes Have you ever Experienced Blackouts?: No Have you ever Combined Alcohol with other Downers within the last 90 days?: No Have you ever Combined Alcohol with any other Substance of Abuse during the last 90 days?: No Positive Blood Alcohol level on Presentation? [PCS.BAL]: No Evidence of Increased Autonomic Activity (i.e. HR>120, tremor, sweating, agitation, nausea)?: Yes Result: 2
[2022-07-22] MEDS: MULTIVITAMIN 10 ML, THIAMINE 100 MG, FOLIC ACID 1 MG in DEXTROSE 5%-0.45% SALINE 1,000 ML 42 ML IV (13:44)
[2022-07-22 15:14] VITALS: BP 104/64; PULSE 68; RESP 16; TEMP 36.3; O2SAT 94
--- NOTE | 2022-07-22 16:17 | IN_ITS ---
Date of service: 07/22/22 Time of Service: 17:45 PT Notes Visit Reasons: GI Bleed Inpatient Physical Therapy Initial Evaluation Date: 07/22/2022 Referring Doctor: Sol Hancock NP PT Orders: Safety consult for D/C. Home v rehab Precautions: Fall. Standard. Activity as tolerated. Patient Profile/Admitting Diagnosis: Khoi is a 77-year-old male smoker with a past medical history significant for alcohol abuse, COPD who presented to the ED on 07/19/2022 with chief complaints of shortness of breath and generalized weakness. He is diagnosed with anemia, GI bleed, ETOH abuse, CHF, urinary retention, AF, acute kidney injury, chronic obstructive pulmonary disease, liver disease. PMHX: All Active Problems?(Updated 07/19/22 @ 23:57 by Prashant Rosales MD) Alcoholic liver disease (Acute) Discharge planning issues (Acute) Smoker (Acute) DVT prophylaxis (Acute) Anemia (Chronic) CHF (congestive heart failure) (Chronic) Acute upper gastrointestinal bleeding (Acute) Alcohol abuse (Chronic) Troponin level elevated (Acute) COPD (chronic obstructive pulmonary disease) (Chronic) Gout (Chronic) Colchicine prevention Sleeping difficulty (Chronic) Melatonin RX Depression (Chronic) Plans on getting connected to social workBarrett's esophagus (Chronic ~04/2019) ETOH; Upper endoscopy 03/2019 (see path report--no tineo's?, but 08/15/2019 surg note says +tineo's) Weakness (Acute) LE weakness; Home PT Urinary retention (Chronic) Dr. Ramos Tobacco abuse disorder (Chronic) Cut down 1/2PPD COPD (chronic obstructive pulmonary disease) (Chronic) Atrial fibrillation (Chronic) Paroxysmal per hospital records; not anticoagulated secondary to recurrent GI bleeds from chronic EtOH use Alcohol use disorder (Chronic) GI bleed (Chronic) Anemia (Chronic) Medical History?(Updated 07/19/22 @ 23:57 by Prashant Rosales MD) Tineo's esophagus Depression Gastric ulcer Hematemesis Insomnia Palliative care patient DobbertinRadicular pain of right lower extremity Renal insufficiency Right knee pain Smoking hx UTI (urinary tract infection) Surgical History?(Updated 07/19/22 @ 23:57 by Prashant Rosales MD) H/O esophagogastroduodenoscopy (~04/2019) Repeat on 10/26/20 [facility] severe reflux esophagitis w/ non-bleeding esophageal ulcer. Multiplle inflammatory appearing nodules at GEJ Social History/Home Situation: Patient lives alone in an apartment with 15 steps to get in with a rail on the right going up.?Indepdent with FWW for all mobility ADL performance. Has a caregiver who comes in for 1-3 hours twice a week to do chores and laundry. He is otherwise able to prepare his own meals on other days. No oxygen supplementation prior to most recent hopsital admission. Equipment Owned/DME: FWW, SPC SUBJECTIVE: Does not feels safe going home alone. Feels that having a short-term rehab will help him get the strength level and the mobility level he needs prior to going home. Unsure of how much he can do today but is willing to get out of bed for today's evaluation. OBJECTIVE: General Observation: Resting in bed. IV access in R UE. On oxgen supplementation on 2L/minute via NC. Mental Status: A&O x4 Pain: Denies ROM: Right Upper Extremity: ? Shoulder Flexion WFL. Shoulder abduction WFL. Elbow flexion WFL. Wrist flexion WFL. Functional opening and closing of hand WFL. Left Upper Extremity:? Shoulder Flexion WFL. Shoulder abduction WFL. Elbow flexion WFL. Wrist flexion WFL. Functional opening and closing of hand WFL. Right Lower Extremity: Hip flexion WFL. Hip abduction WFL. Knee flexion WFL. Ankle dorsiflexion to neutral only. Ankle plantarflexion WFL. Left Lower Extremity: Hip flexion WFL. Hip abduction WFL. Knee flexion WFL. Ankle dorsiflexion to neutral only. Ankle plantarflexion WFL. Strength: Right Upper Extremity: Shoulder flexors 4-/5. Shoulder abductors 4-/5. Elbow flexors 4-/5. Elbow extensors 4-/5. Retail Management Keyholder strong. Left Upper Extremity: Shoulder flexors 4-/5. Shoulder abductors 4-/5. Elbow flexors 4-/5. Elbow extensors 4-/5. Retail Management Keyholder strong. Right Lower Extremity: Hip flexors 4-/5. Hip abductors 4-/5. Knee flexors 4-/5. Knee extensors 4-/5. Ankle dorsiflexors 3-/5. Ankle plantarflexors 4-/5. Left Lower Extremity: Hip flexors 4-/5. Hip abductors 4-/5. Knee flexors 4-/5. K nee extensors 4-/5. Ankle dorsiflexors 3-/5. Ankle plantarflexors 4-/5. SENSATION: Intact as to pain and pressure on bilateral lower extremities BED MOBILITY/TRANSFERS: Supine to sit minimal assist with HOB at 45 degrees Sit to stand minimal assist with FWW. Patient with significant black-colored stool smear on white stefano when he stood up. Nurse Flavio was right away updated. Stand to sit minimal assist with FWW Bed to bedside commode minimal assist with FWW Bedside commode to bed minimal assist with FWW GAIT: 5 steps + 5 steps + 3 sidesteps using FWW with minimal assist with patient r eporting fatigue and shortness of breath that slowly subsided with rest. BALANCE: Static sitting Normal Dynamic Sitting Good Static Standing Fair Dynamic Standing Fair Mobility Limitations Standardized Measure [facility] ? AM -PAC ? ?6 clicks? Basic Mobility Inpatient Short Form: Raw score: 18 ? CMS score: 47%? ? Informed Consent/Education: Patient was instructed in purpose of PT consult and plan of care. Agreeable to proceed with established PT POC to achieve personal goals. ASSESSMENT: ? Khoi is a 77-year-old male smoker with a past medical history significant for alcohol abuse, COPD who presented to the ED on 07/19/2022 with chief complaints of shortness of breath and generalized weakness. He is diagnosed with anemia, GI bleed, ETOH abuse, CHF, urinary retention, AF, acute kidney injury, chronic obstructive pulmonary disease, liver disease. Patient presents with clinical signs and symptoms consistent with current/admitting diagnoses that have resulted to mobility limitations, gait instability, generalized weakness, and impairment of motor control as demonstrated by the following impairment level findings: 1.? Decreased strength to B UE/LE major muscle groups 2.? Impaired sitting/standing balance 3.? Impaired activity tolerance Impairments are contributing to the following functional limitations: 1.? Inability to safely ambulate without physical assistance 2.? Increase completion time for mobility ADL performance 3.? Increased fall risk 4.? Inability to negotiate steps alone safely Patient is assessed as a 34914 moderate complexity based on the following: History: Patient is a 75-year-old male with a past medical history, impairment level findings, and functional limitations as listed above Examination: Demonstrable impairment in strength, balance, and range of motion as tested above Presentation: Evolving Decision Makin moderate complexity Goals: Goals X1 week 1. Supine-Sit independent 2. Sit-Supine independent 3. Sit-Stand independent with FWW 4. Stand-Sit independent with FWW 5. Bed-Chair independent with FWW 6. Chair-Bed independent with FWW 7. Independent gait on level surface with use of FWW for at least 300 feet without report of pain nor dyspnea 8. Independent stair negotiation while holding onto bilateral rails for at least 10 steps without report of pain nor dyspnea 9. Independent with home exercise program 10. Good static and dynamic standing balance/tolerance Plan of Care/Treatment Plan: 1-2x/day, 7 days/week x 1 week. Plan of care has been reviewed with the CORN HUSKER providing the service under Physical Therapy direction. Initiate Physical Therapy intervention for pain management as needed, strengthening, bed mobility, transfers, gait, stairs, balance training, and use of assistive device. DISCHARGE RECOMMENDATIONS: Patient will benefit from [facility] placement in order to progress mobility level, strength, and balance in preparation for a safe discharge to home. TREATMENT CODE/TIME: 39779 x 20 minutes, [id number] x 18 minutes beginning at 16:17 PM. Thank you for the opportunity to participate in the care of this patient. Franchesca Hawley PT, DPT, CLT [facility] [place], [place] ?
[2022-07-22] MEDS: Lactated Ringers 1,000 ML 80 ML IV (19:07)
[2022-07-22] MEDS: Melatonin 3 MG TAB PO (21:25)
[2022-07-23] VITALS (8 sets, daily range): BP systolic 126–138; BP diastolic 72–80; PULSE 64–74; RESP 2–18; TEMP 36.3–36.7; O2SAT 95–97
[2022-07-23] MEDS: Sucralfate 1 GM TAB PO ×5 (02:13→22:50)
[2022-07-23 06:42] LABS: Abs Immature Grans 0.08 10^3/uL (0.0-0.06); Absolute Basophil Count 0.03 10^3/uL (0.0-0.2); Absolute Eosinophil Count 0.09 10^3/uL (0.0-0.7); Absolute Lymphocyte Count 0.92 10^3/uL (1.2-3.4); Absolute Monocyte Count 0.82 10^3/uL (0.1-0.8); Absolute Neutrophil Count 3.87 10^3/uL (1.2-6.7); Basophils % 0.5; Eosinophils % 1.5; HCT 26.4 % (40.0-50.0); HGB 8.1 g/dL (13.5-17.5); Immature Grans % 1.4; Lymphocytes % 15.8; MCH 26.7 pg (27.0-33.0); MCHC 30.7 % (32.0-36.0); MCV 87 fL (80-95); MPV 10.7 fL (8.0-11.0); Monocytes % 14.1; Neutrophils % 66.7; Nucleated RBC 0.3 % (0.0-0.3); Platelet Count 118 10^3/uL (130-400); RBC 3.03 10^6/uL (4.36-5.78); RDW 18.2 % (11.8-14.1); RDW-SD 56.2 fL; WBC 5.81 10^3/uL (4.4-10.8)
[2022-07-23 07:02] LABS: ALT 48 U/L (16-63); AST 56 U/L (15-37); Albumin 2.6 g/dL (3.4-5.0); Alkaline Phosphatase 107 U/L (46-116); Anion Gap 9.1 mmol/L (3-11); BUN 22 mg/dL (7-18); Bilirubin, Total 1.2 mg/dL (0.2-1.0); CO2 25.9 mmol/L (21.0-32.0); CREATININE 1.2 mg/dL (0.70-1.30); Calcium 7.5 mg/dL (8.5-10.1); Chloride 103 mmol/L (98-107); Estimated GFR 62.67 (mL/min/1.73m2); Glucose 115 mg/dL (74-106); Magnesium 1.3 mg/dL (1.8-2.4); Potassium 3.5 mmol/L (3.5-5.1); Sodium 138 mmol/L (136-145); Total Protein 5.6 g/dL (6.4-8.2)
[2022-07-23] MEDS: Tamsulosin 0.4 MG CAPCR PO (08:29)
[2022-07-23] MEDS: Metoprolol CR 100 MG TABCR PO (08:29)
[2022-07-23] MEDS: Normal Saline Flush 10 ML SYR IVP ×2 (08:29→16:42)
[2022-07-23] MEDS: Pantoprazole 40 MG VIAL IVP (08:30)
[2022-07-23] MEDS: Lactated Ringers 1,000 ML 80 ML IV (08:30)
[2022-07-23] MEDS: Budesonide/Formoterol 160/4.5 6 GM 60 PUFF INH IH ×2 (08:50→19:21)
[2022-07-23] MEDS: Potassium Chloride 20 MEQ TABCR 40 MEQ PO (10:10)
[2022-07-23] MEDS: MAGNESIUM SULFATE 4 GM/100 ML BAG IVPB (10:10)
--- NOTE | 2022-07-23 13:57 | PGE_ITS ---
Date of Service Date of service: 07/23/22 Time of Service: 13:57 Assessment and Plan Assessment and plan (1) Acute upper gastrointestinal bleeding: Status: Acute Assessment and plan: UGI bleeding - no emesis; continue protonix and carafate - continues to decline scope; see surgery note - continue to encourage advancing diet, continues to refusing to eat solid food, continues to have Popsicles and clears. H&H has been stable Check H&H tomorrow (2) Alcohol abuse: Status: Chronic Assessment and plan: consult refinery operator vapor recovery unit. He is interested in medication like natrexone or acamprosate once he is prepping to go home. (3) CHF (congestive heart failure): Status: Chronic Assessment and plan: He has a history of CHF with mildly reduced LVEF. BLE edema is unchanged, 2+, palp pulses, lungs are clear. SPO2 94% - Continue to monitor clinically February 2022 Conclusion Technically limited study Patient was in atrial fibrillation throughout, rate controlled Left ventricle is grossly normal in size and mildly reduced and systolic function.? Estimated ejection fraction is 45-50%.? There is global hypokinesis.? No segmental wall motion abnormalities were appreciated The atria were not well visualized Aortic valve is sclerotic without stenosis or regurgitation Within the limits of the study there was no additional structural or hemodyna mically significant valvular disease Estimated right ventricular systolic pressure was 29 mmHg (4) COPD (chronic obstructive pulmonary disease): Status: Chronic Assessment and plan: Not active clinically, continue controller inhaler. (5) Urinary retention: Status: Chronic Assessment and plan: Tamulosin was started; will increase dose as he still is having some retention today continue to monitor, bladder scan and straight cath as needed if retaining greater than 500 cc and unable to void and or having pain. (6) Tobacco abuse disorder: Status: Chronic Assessment and plan: continue replacement while inpatient. (7) Atrial fibrillation: Status: Chronic Assessment and plan: He is on metoprolol but hasn't been taking this for rate control - resumed He is not anticoagulated because of alcoholism (8) DVT prophylaxis: Status: Acute Assessment and plan: active bleed. Just TEDS/SCDs (9) Alcoholic liver disease: Status: Acute Assessment and plan: no lesions on US, monitor LFTs avoid hepatotoxic drugs (10) Discharge planning issues: Status: Acute Assessment and plan: PT recommends inpatient rehabilitation. discussed with DR Hayden. Subjective Subjective Patient reports: no new complaints, tolerating liquids well, tolerating a regular diet and afebrile; denies shortness of breath Interval history since last seen: states he didn't sleep well last night, no specific c/o. noted to have 300 cc retained urine but no pain or urge to void. declined straight cath has had no signs of alcohol withdrawal. Exam Const General: cooperative Nutritional Appearance: overweight Orientation: alert, awake and oriented x3 HENMT Head: normal to inspection, normocephalic and atraumatic Resp Effort & Inspection: normal respiratory effort Cardio Rate: regular rate GI Inspection: normal to inspection Palpation: soft Auscultation: normal bowel sounds Skin General skin exam: no rashes or lesions noted Extrem General: normal to inspection, full ROM and edema Objective Last Vital Signs Temp 36.7 C 07/23/22 07:23 Pulse 64 07/23/22 07:23 Resp 16 07/23/22 07:23 BP 126/77 07/23/22 07:23 Pulse Ox 95 07/23/22 07:23 Laboratory Results - last 24 hr 07/19/22 07/23/22 07/23/22 18:05 06:20 06:20 WBC 5.81 RBC 3.03 L Hgb 8.1 L Hct 26.4 L MCV 87 MCH 26.7 L MCHC 30.7 L RDW 18.2 H Plt Count 118 L MPV 10.7 Immature Gran % 1.4 Neutrophils % 66.7 Lymphocytes % 15.8 Monocytes % 14.1 Eosinophils % 1.5 Basophils % 0.5 Nucleated RBC % 0.3 Absolute Neutrophils 3.87 Absolute Lymphocytes 0.92 L Absolute Monocytes 0.82 H Absolute Eosinophils 0.09 Absolute Basophils 0.03 Sodium 138 Potassium 3.5 Chloride 103 Carbon Dioxide 25.9 Anion Gap 9.1 BUN 22 H Creatinine 1.2 Est GFR (CKD-EPI 2020) 62.67 Glucose 115 H Calcium 7.5 L Magnesium 1.3 L Total Bilirubin 1.2 H AST 56 H ALT 48 Alkaline Phosphatase 107 Total Protein 5.6 L Albumin 2.6 L Crossmatch See Detail PAWSS Have you Been Recently Intoxicated or Drunk Within the Last 30 days?: No Have you Ever Experienced Previous Episodes of Alcohol Withdrawal?: No Have you ever Experienced Withdrawal Seizures?: No Have you ever Experienced Delirium Tremens(DT)s?: No Have you ever undergone Alcohol Rehabilitation Treatment (i.e, inpt ot outpatient treatment programs)?: Yes Have you ever Experienced Blackouts?: No Have you ever Combined Alcohol with other Downers within the last 90 days?: No Have you ever Combined Alcohol with any other Substance of Abuse during the last 90 days?: No Positive Blood Alcohol level on Presentation? [PCS.BAL]: No Evidence of Increased Autonomic Activity (i.e. HR>120, tremor, sweating, agitation, nausea)?: Yes Result: 2
--- NOTE | 2022-07-23 16:17 | PT.INTREAT ---
Date of service: 07/23/22 Time of Service: 10:15 PT Notes Visit Reasons: GI Bleed Inpatient Physical Therapy Treatment Note Date: 07/23/2022 Precautions: Fall. Standard. Activity as tolerated. Equipment Owned/DME: FWW, SPC SUBJECTIVE: Continues to verbalize anxiety over not being able to manage home alone. OBJECTIVE: General Observation: Seated on chair.? IV access in R UE.? On oxgen supplementation on 2L/minute via NC. Mental Status: A&O x4 Pain: Denies SENSATION: Intact as to pain and pressure on bilateral lower extremities BED MOBILITY/TRANSFERS: Sit to stand minimal assist Stand to sit minimal assist Bedside recliner to bed minimal assist with FWW GAIT: 20 feet using FWW with contact guard assist with patient reporting fatigue and shortness of breath that slowly subsided with rest. BALANCE: Static sitting Normal Dynamic Sitting Good Static Standing Fair Dynamic Standing Fair ASSESSMENT: ? Continues to require extended rest time due to delayed recovery time with the smallest of activity due to shortness of breath however a little more improved than yesterday. Now only requires contact guard assist compared to minimal assist yesterday while ambulating. Still demonstrates decreased sit<>stand requiring minimal assist and verbal cueing for safe technique. Remains unsafe about going home alone, continues to feel the need for short-term rehab prior to D/C home. DISCHARGE RECOMMENDATIONS: Patient will benefit from half-way facility placement in order to progress mobility level, strength, and balance in preparation for a safe discharge to home. TREATMENT CODE/TIME: 89231 x 20 minutes,? 84156 x 18 minutes beginning at 16:17 PM.
--- NOTE | 2022-07-23 16:47 | PDOC.CMPRO ---
- If Service Date Differs Date of service: 07/23/22 Time of Service: 16:47 Care Management Progress Note S/O: Khoi remains inpatient, baseline behavior noted. Awaiting admission review for SNF determination; CM continues to follow. A: 77 year old male admitted to [facility] 07/19/22 for GI Bleed P: Rufino continues to be closely monitored. SNF recommended, referrals pending; transport dependent on disposition. CM continues to follow.
[2022-07-23] MEDS: Levalbuterol 0.63 MG/3 ML UPD VIAL UPD ×2 (16:56→19:21)
[2022-07-23] MEDS: Pantoprazole 40 MG TABCR PO (19:21)
[2022-07-23] MEDS: Melatonin 3 MG TAB PO (22:50)
[2022-07-24] MEDS: HYDROcodone 5/Acetaminophen 325 TAB PO (01:19)
[2022-07-24 06:38] LABS: Abs Immature Grans 0.08 10^3/uL (0.0-0.06); Absolute Basophil Count 0.04 10^3/uL (0.0-0.2); Absolute Eosinophil Count 0.07 10^3/uL (0.0-0.7); Absolute Lymphocyte Count 0.71 10^3/uL (1.2-3.4); Absolute Monocyte Count 0.95 10^3/uL (0.1-0.8); Absolute Neutrophil Count 4.28 10^3/uL (1.2-6.7); Basophils % 0.7; Eosinophils % 1.1; HCT 26.3 % (40.0-50.0); Immature Grans % 1.3; Lymphocytes % 11.6; MCH 26.8 pg (27.0-33.0); MCHC 30.4 % (32.0-36.0); MCV 88 fL (80-95); MPV 10.9 fL (8.0-11.0); Monocytes % 15.5; Neutrophils % 69.8; Nucleated RBC 0.3 % (0.0-0.3); Platelet Count 124 10^3/uL (130-400); RBC 2.99 10^6/uL (4.36-5.78); RDW 18.2 % (11.8-14.1); RDW-SD 56.9 fL; WBC 6.13 10^3/uL (4.4-10.8)
[2022-07-24 06:49] LABS: Anion Gap 9.6 mmol/L (3-11); BUN 18 mg/dL (7-18); CO2 25.4 mmol/L (21.0-32.0); Calcium 7.7 mg/dL (8.5-10.1); Chloride 103 mmol/L (98-107); Glucose 97 mg/dL (74-106); Magnesium 2.1 mg/dL (1.8-2.4); Potassium 3.4 mmol/L (3.5-5.1); Sodium 138 mmol/L (136-145)
[2022-07-24 07:19] VITALS: BP 137/68; PULSE 67; RESP 18; TEMP 37.6; O2SAT 91
[2022-07-24] MEDS: Sucralfate 1 GM TAB PO (07:35)
[2022-07-24] MEDS: Tamsulosin 0.4 MG CAPCR 0.8 MG PO (07:35)
[2022-07-24] MEDS: Metoprolol CR 100 MG TABCR PO (07:36)
[2022-07-24] MEDS: Pantoprazole 40 MG TABCR PO (07:36)
[2022-07-24] MEDS: Budesonide/Formoterol 160/4.5 6 GM 60 PUFF INH IH (07:39)
[2022-07-24] MEDS: Potassium Chloride 20 MEQ TABCR 40 MEQ PO (09:28)
--- NOTE | 2022-07-24 10:40 | DSE_ITS ---
Date of service: 07/24/22 Time of Service: 10:40 DS: Diagnosis Discharge Diagnosis (1) Acute upper gastrointestinal bleeding: Status: Acute (2) Alcohol abuse: Status: Chronic (3) CHF (congestive heart failure): Status: Chronic (4) COPD (chronic obstructive pulmonary disease): Status: Chronic (5) Urinary retention: Status: Chronic (6) Tobacco abuse disorder: Status: Chronic (7) Atrial fibrillation: Status: Chronic (8) Alcoholic liver disease: Status: Acute Discharge Plan Disposition Patient Disposition: SNF (LEVEL 1) [facility] Condition: Stable Discharge Details Reason For Visit: GI Bleed Admit Date/Time: 07/19/22 18:27 Admit Provider: Prashant Rosales Attending Provider: Prashant Rosales Primary Care Provider: Desirae Panda Hospital Course Hospital Course: This is a 77 year old male with active alcohol use disorder and history of admissions for upper GI bleeding who presented today to the emergency room with about a week of increased epigastric pain and heart burn.? He reported that he coughed and then vomited up a small amount of dark material that looked like it was digested blood.? He had one more episode of vomiting since arriving here.? He had a surgical consult for possible upper endoscopy but declined any work up for his symptoms. he was transfused with 2 units of packed red blood cells and has maintained a stable hemoglobin of 8 which is his baseline. He continues to receive carafate ac/hs and protonix 40 mg po bid. He does admit to daily drinking alcohol.? He has multiple quit attempts, including 3 years sober after rehabilitation in [place], [place] through the [place].? He has never tried medication to help combat cravings but would be open to it. will defer to pcp for follow up on that. He did not experience any withdrawal symptoms while hospitalized. He was reambulated with PT but remains too deconditioned to safely be discharged to home. He is agreeable to rehabilitation stay at the [facility] and is accepted to admission. He will be transported by wheelchair van. discussed with Dr Hayden Home Meds and New Rx's Prescriptions: Continued budesonide-formoterol [Symbicort] 160-4.5 mcg/actuation HFA aerosol inhaler 2 puff inhalation BID Qty: 10.2 11RF pantoprazole 40 mg tablet,delayed release (DR/EC) 40 mg PO BID Qty: 60 0RF Rx Instructions: GI bleed melatonin 3 mg tablet extended release 3 mg PO HS PRN (Reason: Insomnia) Qty: 90 3RF Rx Instructions: Sleep difficulty tamsulosin 0.4 mg capsule 0.8 mg PO DAILY Qty: 60 12RF finasteride 5 mg tablet 5 mg PO DAILY Qty: 30 12RF artificial tear(jefka-spq-cdd) 0.1-0.3-0.2 % drops 1 drp ophthalmic (eye) 4-8XD PRN nitroglycerin 0.4 mg tablet, sublingual 0.4 mg sublingual Q5M PRN Rx Instructions: do not exceed 3 doses per episode colchicine [Mitigare] 0.6 mg capsule 0.6 mg PO DAILY Qty: 90 3RF Rx Instructions: Gout prevention metoprolol succinate 100 mg tablet extended release 24 hr 100 mg PO DAILY Qty: 30 0RF atorvastatin 40 mg tablet 40 mg PO QHS Qty: 30 0RF thiamine mononitrate (vit B1) [Vitamin B-1 (mononitrate)] 100 mg Tablet 100 mg PO DAILY Qty: 30 0RF sucralfate 1 gram Tablet 1 g PO AC & HS Qty: 28 0RF No Action tamsulosin 0.4 mg Capsule 0.4 mg PO DAILY Qty: 30 0RF Discharge Instructions Instructions: Gastrointestinal Bleeding (DC) Additional Instructions: advance diet as tolerated. Stand Alone Forms: Nursing Discharge Form Referrals: Desirae Panda [employer] [Primary Care Provider] - (upon discharge from rehabilitation) Activity:: Activity as Tolerated Equipment/Supplies:: No Equipment Needed Diet:: As Tolerated Discharge Orders Discharge Orders: Discharge Order (Routine); Ordered 07/24/22 Ordered By: Rose Wagoner Discharge Data Discharge Date/Time-TO BE ENTERED AT DEPARTURE: 07/24/22 13:57 DS: Summary Time Spent with Patient providing and/or coordinating discharge services: Greater than 30 minutes Status at Discharge Functional status at discharge: uses cane/walker Overall status at discharge: patient is progressing back to baseline Mental Status: mental status grossly normal Speech and Movement: speech and movement normal Mood: congruent mood Affect: normal affect Exam Const General: cooperative Nutritional Appearance: overweight Orientation: alert, awake and oriented x3 HENMT Head: normal to inspection, normocephalic and atraumatic Resp Effort & Inspection: normal respiratory effort Cardio Rate: regular rate GI Inspection: normal to inspection Palpation: soft Auscultation: normal bowel sounds Skin General skin exam: no rashes or lesions noted Extrem General: normal to inspection, full ROM and edema Psych Mental Status: mental status grossly normal Speech and Movement: speech and movement normal Mood: congruent mood Affect: normal affect DS: Data Vitals/I&O Vitals and I&O: Vital Signs Temperature 37.6 C H 07/24/22 07:19 Temperature Source Tympanic 07/24/22 07:19 Pulse 67 07/24/22 07:19 Pulse Rhythm Irregular 07/24/22 07:30 Pulse 105 H 07/19/22 19:16 Respiratory Rate 18 07/24/22 07:19 Respiratory Effort Non-Labored 07/24/22 07:30 Respiratory Depth Normal 07/24/22 07:30 Respiratory Pattern Normal 07/24/22 07:30 Blood Pressure 137/68 07/24/22 07:19 Blood Pressure Mean 72 07/19/22 19:16 Blood Pressure Position Sitting 07/19/22 15:15 Pulse Oximetry 91 L 07/24/22 07:19 Oxygen Delivery Method Room Air 07/24/22 07:19 Oxygen Flow Rate 0 07/24/22 07:19 Pain Level 0 07/24/22 07:19 Comment 07/23/22 00:25 Intake & Output 07/23/22 07/23/22 07/24/22 11:59 23:59 11:59 Intake Total 1378 / 1488 110 / 1488 Output Total 284 / 734 450 / 734 450 / 450 Balance 1094 / 754 -340 / 754 -450 / -450 Weight 79.1 kg 78.5 kg Intake: IV 1228 / 1338 110 / 1338 Oral 150 / 150 Output: Urine 150 / 600 450 / 600 450 / 450 Post Void Residual 134 / 134 Other: Urine Color Yellow Dark Hannah Straw Light Hannah Urine Appearance Clear Clear Cloudy Urine Odor Normal Normal None Comment pt states feeling comfortable and does not want to be straight cathed at this time. voided 150 patient was incont and voided 175ml in urinal. patient is refusing to wear breif to contain incont. Stool Occult Blood Negative Stool Size Smear Smear Stool Characteristics Black Voiding Methods Urinal Urinal Urinal Data Completed and Pending Labs on day of discharge: Labs from last 24 hours 07/24/22 07/24/22 06:18 06:18 WBC 6.13 RBC 2.99 L Hgb 8.0 L Hct 26.3 L MCV 88 MCH 26.8 L MCHC 30.4 L RDW 18.2 H Plt Count 124 L MPV 10.9 Immature Gran % 1.3 Neutrophils % 69.8 Lymphocytes % 11.6 Monocytes % 15.5 Eosinophils % 1.1 Basophils % 0.7 Nucleated RBC % 0.3 Absolute Neutrophils 4.28 Absolute Lymphocytes 0.71 L Absolute Monocytes 0.95 H Absolute Eosinophils 0.07 Absolute Basophils 0.04 Sodium 138 Potassium 3.4 L Chloride 103 Carbon Dioxide 25.4 Anion Gap 9.6 BUN 18 Creatinine 1.0 Est GFR (CKD-EPI 2020) 78.00 Glucose 97 Calcium 7.7 L Magnesium 2.1 PFSH All Active Problems (Updated 07/21/22 @ 13:49 by Madeline Mejia DO) Personal history of noncompliance with medical treatment and regimen (Acute) Alcoholic liver disease (Acute) Discharge planning issues (Acute) Smoker (Acute) DVT prophylaxis (Acute) Anemia (Chronic) CHF (congestive heart failure) (Chronic) Acute upper gastrointestinal bleeding (Acute) Alcohol abuse (Chronic) Troponin level elevated (Acute) COPD (chronic obstructive pulmonary disease) (Chronic) Gout (Chronic) Colchicine prevention Sleeping difficulty (Chronic) Melatonin RX Depression (Chronic) Plans on getting connected to social work Tineo's esophagus (Chronic ~04/2019) ETOH; Upper endoscopy 03/2019 (see path report--no tineo's?, but 08/15/2019 surg note says +tineo's) Weakness (Acute) LE weakness; Home PT Urinary retention (Chronic) Dr. Ramos Tobacco abuse disorder (Chronic) Cut down 1/2PPD COPD (chronic obstructive pulmonary disease) (Chronic) Atrial fibrillation (Chronic) Paroxysmal per hospital records; not anticoagulated secondary to recurrent GI bleeds from chronic EtOH use Alcohol use disorder (Chronic) Medical History (Updated 07/21/22 @ 13:49 by Madeline Mejia DO) Tineo's esophagus Depression Gastric ulcer GI bleed Hematemesis Insomnia Palliative care patient Dobbertin Radicular pain of right lower extremity Renal insufficiency Right knee pain Smoking hx UTI (urinary tract infection) Surgical History H/O esophagogastroduodenoscopy (~04/2019) Repeat on 10/26/20 [facility] [place] severe reflux esophagitis w/ non-bleeding esophageal ulcer. 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
[2022-07-24 11:11] LABS: Source Nasal/Nares
[2022-07-24 11:48] VITALS: RESP 2; RESP 4; RESP 7
[2022-07-24] MEDS: Levalbuterol 0.63 MG/3 ML UPD VIAL UPD (11:48)
[2022-07-24 12:01] LABS: COVID-19 PCR Negative (Negative)
--- NOTE | 2022-07-24 14:05 | NUR.NOTE ---
Nursing Note: At this time this RN called [facility] to give report. Report given to Marni. All questions answered.
--- NOTE | 2022-07-24 16:44 | PDOC.CMDIS ---
- If Service Date Differs Date of service: 07/24/22 Time of Service: 16:44 LACE Index Scoring Tool - Questions: Length of Stay (in days): 4 - 6 Acuity (Admit via E.D.?): Yes Comorbidities: Chronic Pulmonary Disease E.D. Visits: 2 - Answers: Total Score: 11 Risk of Readmission: High Risk Care Management Discharge Reason for Hospitalization: GI Bleed Discharge Plan: Khoi fernandez discharge to [facility] for short/term rehab via [facility] W/C Van coordinated by [facility]. Patient/Family Education Needs: Review discharge instructions, discuss Ask Me Three. Services Needed at Discharge: [facility] ([facility] ), Transportation (W/C Van: [facility])
--- NOTE | 2022-07-25 09:50 | INDS_ITS ---
Date of service: 07/25/22 Time of Service: 09:51 PT Notes Visit Reasons: GI Bleed Physical Therapy Inpatient Discharge Summary Date: 07/25/2022 Dates of service: 07/22/2022 through 07/24/2022 This is a clinical summary of care provided for the duration of dates listed above. No charge was made in the completion of this documentation. Referring Doctor: Sol Hancock NP PT Orders: Safety consult for D/C.? Home v rehab Precautions: Fall. Standard. Activity as tolerated. Patient Profile/Admitting Diagnosis: Khoi is a 77-year-old male smoker with a past medical history significant for alcohol abuse, COPD who presented to the ED on 07/19/2022 with chief complaints of shortness of breath and generalized weakness. He is diagnosed with anemia, GI bleed, ETOH abuse,? CHF, urinary retention, AF, acute kidney injury, chronic obstructive pulmonary disease, liver disease. PMHX: All Active Problems?(Updated 07/19/22 @ 23:57 by Prashant Rosales MD) Alcoholic liver disease (Acute) Discharge planning issues (Acute) Smoker (Acute) DVT prophylaxis (Acute) Anemia (Chronic) CHF (congestive heart failure) (Chronic) Acute upper gastrointestinal bleeding (Acute) Alcohol abuse (Chronic) Troponin level elevated (Acute) COPD (chronic obstructive pulmonary disease) (Chronic) Gout (Chronic) Colchicine prevention Sleeping difficulty (Chronic) Melatonin RX Depression (Chronic) Plans on getting connected to social workBarrett's esophagus (Chronic ~04/2019) ETOH; Upper endoscopy 03/2019 (see path report--no tineo's?, but 08/15/2019 surg note says +tineo's) Weakness (Acute) LE weakness; Home PT Urinary retention (Chronic) Dr. Ramos Tobacco abuse disorder (Chronic) Cut down 1/2PPD COPD (chronic obstructive pulmonary disease) (Chronic) Atrial fibrillation (Chronic) Paroxysmal per hospital records; not anticoagulated secondary to recurrent GI bleeds from chronic EtOH use Alcohol use disorder (Chronic) GI bleed (Chronic) Anemia (Chronic) Medical History?(Updated 07/19/22 @ 23:57 by Prashant Rosales MD) Tineo's esophagus Depression Gastric ulcer Hematemesis Insomnia Palliative care patient DobbertinRadicular pain of right lower extremity Renal insufficiency Right knee pain Smoking hx UTI (urinary tract infection) Surgical History?(Updated 07/19/22 @ 23:57 by Prashant Rosales MD) H/O esophagogastroduodenoscopy (~04/2019) [place] [facility] [place] esophagitis w/ non-bleeding esophageal ulcer. Multiplle inflammatory appearing nodules at GE[facility] Social History/Home Situation: Patient lives alone in an apartment with 15 steps to get in with a rail on the right going up.?Indepdent with FWW for all mobility ADL performance.? Has a caregiver who comes in for 1-3 hours twice a week to do chores and laundry. He is otherwise able to prepare his own meals on other days.? No oxygen supplementation prior to most recent hopsital admission. Equipment Owned/DME: FWW, SPC SUBJECTIVE: NT. See most recent KEYBOARD INSTRUMENT REPAIRER notes. OBJECTIVE: General Observation: NT. See most recent KEYBOARD INSTRUMENT REPAIRER notes. Mental Status: NT. See most recent KEYBOARD INSTRUMENT REPAIRER notes. Pain: NT. See most recent KEYBOARD INSTRUMENT REPAIRER notes. ROM: Right Upper Extremity: ? Shoulder Flexion WFL. Shoulder abduction WFL. Elbow flexion WFL. Wrist flexion WFL. Functional opening and closing of hand WFL. Left Upper Extremity:? Shoulder Flexion WFL. Shoulder abduction WFL. Elbow flexion WFL. Wrist flexion WFL. Functional opening and closing of hand WFL. Right Lower Extremity: Hip flexion WFL. Hip abduction WFL. Knee flexion WFL. Ankle dorsiflexion to neutral only. Ankle plantarflexion WFL. Left Lower Extremity: Hip flexion WFL. Hip abduction WFL. Knee flexion WFL. Ankle dorsiflexion to neutral only. Ankle plantarflexion WFL. Strength: Right Upper Extremity: Shoulder flexors 4-/5. Shoulder abductors 4-/5. Elbow flexors 4-/5. Elbow extensors 4-/5. 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 Left Upper Extremity: Shoulder flexors 4-/5. Shoulder abductors 4-/5. Elbow flexors 4-/5. Elbow extensors 4-/5. 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 Right Lower Extremity: Hip flexors 4-/5. Hip abductors 4-/5. Knee flexors 4-/5. Knee extensors 4-/5. Ankle dorsiflexors 3-/5. Ankle plantarflexors 4-/5. Left Lower Extremity: Hip flexors 4-/5. Hip abductors 4-/5. Knee flexors 4-/5. Knee extensors 4-/5. Ankle dorsiflexors 3-/5. Ankle plantarflexors 4-/5. SENSATION: Intact as to pain and pressure on bilateral lower extremities BED MOBILITY/TRANSFERS: Sit to stand minimal assist Stand to sit minimal assist Bedside recliner to bed minimal assist with FWW GAIT: 20 feet using FWW with contact guard assist with patient reporting fatigue and shortness of breath that slowly subsided with rest. BALANCE: Static sitting Normal Dynamic Sitting Good Static Standing Fair Dynamic Standing Fair ASSESSMENT: ? Khoi is a 77-year-old male smoker with a past medical history significant for alcohol abuse, COPD who presented to the ED on 07/19/2022 with chief complaints of shortness of breath and generalized weakness. He is diagnosed with anemia, GI bleed, ETOH abuse,? CHF, urinary retention, AF, acute kidney injury, chronic obstructive pulmonary disease, liver disease. Patient presents with clinical signs and symptoms consistent with current/admitting diagnoses that have resulted to mobility limitations, gait instability, generalized weakness, and impairment of motor control as demons trated by the following impairment level findings: 1.? Decreased strength to B UE/LE major muscle groups 2.? Impaired sitting/standing balance 3.? Impaired activity tolerance Impairments are contributing to the following functional limitations: 1.? Inability to safely ambulate without physical assistance 2.? Increase completion time for mobility ADL performance 3.? Increased fall risk 4.? Inability to negotiate steps alone safely Goals: Goals X1 week 1. Supine-Sit independent NOT MET 2. Sit-Supine independent NOT MET NOT MET 3. Sit-Stand independent with FWW NOT MET 4. Stand-Sit independent with FWW NOT MET 5. Bed-Chair independent with FWW NOT MET 6. Chair-Bed independent with FWW NOT MET 7. Independent gait on level surface with use of FWW for at least 300 feet without report of pain nor dyspnea NOT MET 8. Independent stair negotiation while holding onto bilateral rails for at least 10 steps without report of pain nor dyspnea NOT MET 9. Independent with home exercise program NOT MET 10. Good static and dynamic standing balance/tolerance NOT MET DISCHARGE RECOMMENDATIONS: Patient will benefit from fdc facility placement in order to progress mobility level, strength, and balance in preparation for a safe discharge to home. TREATMENT CODE/TIME: CA Thank you for the opportunity to participate in the care of this patient. Franchesca Hawley PT, DPT, CLT [facility] [place], [place]
== END 2022-07-24 13:57 | disposition skilled nursing facility (03) | DRG 378 ==
LOC: ER 19:11 → MS 19:41
PROVIDERS: Family Medicine; Nurse Practitioner Acute Care; Nurse Practitioner Family; Admitting Provider Family Medicine; Emergency Provider Emergency Medicine; PCP Nurse Practitioner Adult Health; Visit Provider Family Medicine
DX: K92.0 Hematemesis (principal); I50.20 Unspecified systolic (congestive) heart failure; F10.10 Alcohol abuse, uncomplicated; J44.9 Chronic obstructive pulmonary disease, unspecified; R33.9 Retention of urine, unspecified; R53.1 Weakness; F17.210 Nicotine dependence, cigarettes, uncomplicated; Z91.14 Patient's other noncompliance with medication regimen; R74.8 Abnormal levels of other serum enzymes; M10.9 Gout, unspecified; F32.A Depression, unspecified; K22.70 Barrett's esophagus without dysplasia; I48.0 Paroxysmal atrial fibrillation; K70.9 Alcoholic liver disease, unspecified; D50.9 Iron deficiency anemia, unspecified; M54.10 Radiculopathy, site unspecified
CPT/HCPCS: 36415; 80048; 80053; 86850; 86900; 86901; 86920; 87635; 93005; 94640; 97162; 97530; 99284; 99285; 71045; 76700; 80320; 82607; 83540; 83550; 83735; 83880; 84100; 84484; 85014; 85018; 85025; 85610; 93010; 99232; 99233; 99239; J2060; J2405; J3475; J7614; J7620; P9016

== ENCOUNTER 2022-07-26 17:19 | Outpatient (REF) | payer MEDICARE, MEDICAID, SELFPAY ==
[2022-07-26 18:11] LABS: Abs Immature Grans 0.08 10^3/uL (0.0-0.06); Absolute Basophil Count 0.03 10^3/uL (0.0-0.2); Absolute Eosinophil Count 0.08 10^3/uL (0.0-0.7); Absolute Lymphocyte Count 0.73 10^3/uL (1.2-3.4); Absolute Monocyte Count 0.98 10^3/uL (0.1-0.8); Absolute Neutrophil Count 3.63 10^3/uL (1.2-6.7); Basophils % 0.5; Eosinophils % 1.4; HCT 26.7 % (40.0-50.0); HGB 8.1 g/dL (13.5-17.5); Immature Grans % 1.4; Lymphocytes % 13.2; MCH 26.4 pg (27.0-33.0); MCHC 30.3 % (32.0-36.0); MCV 87 fL (80-95); MPV 10.9 fL (8.0-11.0); Monocytes % 17.7; Neutrophils % 65.8; Platelet Count 207 10^3/uL (130-400); RBC 3.07 10^6/uL (4.36-5.78); RDW 18.2 % (11.8-14.1); RDW-SD 56.5 fL; WBC 5.53 10^3/uL (4.4-10.8)
[2022-07-26 18:22] LABS: Iron 14 ug/dL (65-175); Total Iron Binding Capacity 338 ug/dL (250-450); Transferrin Sat 4 % (20-55)
[2022-07-26 18:39] LABS: ALT 31 U/L (16-63); AST 33 U/L (15-37); Albumin 2.5 g/dL (3.4-5.0); Alkaline Phosphatase 103 U/L (46-116); Anion Gap 7.4 mmol/L (3-11); BUN 15 mg/dL (7-18); CO2 28.6 mmol/L (21.0-32.0); CREATININE 1.3 mg/dL (0.70-1.30); Calcium 7.8 mg/dL (8.5-10.1); Chloride 106 mmol/L (98-107); Estimated GFR 56.93 (mL/min/1.73m2); GGT 194 U/L (15-85); Glucose 133 mg/dL (74-106); Magnesium 1.5 mg/dL (1.8-2.4); NT-proBNP 10980 pg/mL (<300); Potassium 3.3 mmol/L (3.5-5.1); Sodium 142 mmol/L (136-145); TSH (W/Ref FT4) 2.01 uIU/mL (0.36-3.74); Uric Acid 8.7 mg/dL (3.5-7.2)
[2022-07-26 18:46] LABS: Vitamin D 25 Total 7.1 ng/mL (30-100)
[2022-07-26 18:52] LABS: Hemoglobin A1C 5.7 % (<5.7)
[2022-07-26 19:17] LABS: Ferritin 39 ng/mL (26-388); Folate 13.7 ng/mL (8.6-20.0); Vitamin B12 749 pg/mL (193-986)
== END 2022-07-26 17:20 | disposition home or self-care (01) ==
LOC: LBN 17:19
PROVIDERS: PCP Nurse Practitioner Adult Health; Visit Provider Nurse Practitioner Gerontology
DX: D51.0 Vitamin B12 deficiency anemia due to intrinsic factor deficiency (principal); E78.49 Other hyperlipidemia; I50.9 Heart failure, unspecified; J44.9 Chronic obstructive pulmonary disease, unspecified; R68.89 Other general symptoms and signs; M10.9 Gout, unspecified
CPT/HCPCS: 80053; 82306; 82607; 82728; 82746; 82977; 83036; 83540; 83550; 83735; 83880; 84443; 84550; 85025

== ENCOUNTER 2022-07-26 19:42 | Emergency (ER) | payer MEDICARE, MEDICAID, SELFPAY ==
[2022-07-26] VITALS (8 sets, daily range): BP systolic 140–155; BP diastolic 83–116; PULSE 83–89; RESP 18–24; TEMP 36.6; O2SAT 92–96
--- NOTE | 2022-07-26 20:30 | RT.EKG_ITS ---
APPROVED REPORT Exam: Resting ECG Reason for Exam: chf Patient Location: E HR:92 bpm ECG Measurements Heart Rate 92 AXIS OH [id number] P [id number] QRSd 81 QRS 60 QT 379 T 33 QTc 470 Conclusion Atrial fibrillation...? atrial activity Low voltage, extremity and precordial leads...extremity<0.5mV, precordial<1.0mV
--- NOTE | 2022-07-26 20:30 | DI.RAD_ITS ---
Exam(s) XR PORTABLE CHEST AP EXAM: XR PORTABLE CHEST AP CLINICAL HISTORY: ?chf TECHNIQUE: 2D digital imaging was performed of the chest. Two images were obtained. AP views were obtained. COMPARISON: CR,XR XR PORTABLE CHEST AP from 07/19/2022 FINDINGS: MEDIASTINUM: Normal. HEART: Normal. PULMONARY VASCULATURE: Normal. LUNGS: There is now subsegmental atelectasis in the left upper lobe. This was not present on the exa mination from 7 days prior. PLEURAL SPACE: No pleural effusion or pneumothorax. BONE:Within normal limits for the patient's age. OTHER FINDINGS:Normal. IMPRESSION: Interval development of left upper lobe atelectasis. DATA REPOSITORY: RADIATION DOSE DELIVERED:
--- NOTE | 2022-07-26 20:41 | ED.GENADUL_ITS ---
Discharge Plan Disposition Patient Disposition: HOME Condition: Stable Discharge Details Clinical Impression: CHF (congestive heart failure) Primary Care Provider: Desirae Panda ED Provider: Marquez Henning Home Meds and New Rx's Prescriptions: New furosemide [Lasix] 20 mg tablet 20 mg PO DAILY Qty: 10 0RF furosemide [Lasix] 40 mg tablet 40 mg PO QAM Qty: 10 0RF Continued budesonide-formoterol [Symbicort] 160-4.5 mcg/actuation HFA aerosol inhaler 2 puff inhalation BID Qty: 10.2 11RF pantoprazole 40 mg tablet,delayed release (DR/EC) 40 mg PO BID Qty: 60 0RF Rx Instructions: GI bleed melatonin 3 mg tablet extended release 3 mg PO HS PRN (Reason: Insomnia) Qty: 90 3RF Rx Instructions: Sleep difficulty tamsulosin 0.4 mg capsule 0.8 mg PO DAILY Qty: 60 12RF finasteride 5 mg tablet 5 mg PO DAILY Qty: 30 12RF artificial tear(whkdj-fza-nhp) 0.1-0.3-0.2 % drops 1 drp ophthalmic (eye) 4-8XD PRN nitroglycerin 0.4 mg tablet, sublingual 0.4 mg sublingual Q5M PRN Rx Instructions: do not exceed 3 doses per episode colchicine [Mitigare] 0.6 mg capsule 0.6 mg PO DAILY Qty: 90 3RF Rx Instructions: Gout prevention metoprolol succinate 100 mg tablet extended release 24 hr 100 mg PO DAILY Qty: 30 0RF atorvastatin 40 mg tablet 40 mg PO QHS Qty: 30 0RF thiamine mononitrate (vit B1) [Vitamin B-1 (mononitrate)] 100 mg Tablet 100 mg PO DAILY Qty: 30 0RF sucralfate 1 gram Tablet 1 g PO AC & HS Qty: 28 0RF tamsulosin 0.4 mg Capsule 0.4 mg PO DAILY Qty: 30 0RF Discharge Instructions Additional Instructions: you should increase your furosemide 40mg once daily in the morning, follow up with your medical provider within 10 days to assess if this should be continued if you feel more ill, have severe pain or difficulty breathing return to the emergency department Medical Decision Making 77 yo male chronic alcohol abuse, copd, gi bleeds and was recently admitted for gi bleed and d/c'd to the [facility] on 07/24 comes in with ems from the [facility] with elevated probnp. He has chronic baseline dyspnea at rest that he states is unchanged, denies any chest pain or fevers. He arrives speaking clearly in no distress. He has wheezing at the bases bialterally, no jvd or calf tenderness, mild pitting edema of the lower extremities to the [place]. [place] [id number], hemoglobin is 8.1 which is stable from 8.0. Given the elevated probnp will obtain troponin to evaluate for acs though he has no chest pain so doubt this. No hypoxia or tachycardia or calf tenderness so doubt PE, will also obtain cxr. His mag was 1.5 so will order repletion of this. pt stable, did urinate over 500cc per nursing. troponin negative and still no chest pain and he continues to feel well, do not feel he requires hospitalization. Will have him increase his lasix to 40mg advised to f/u with provider at the [facility], return precautions given Differential Diagnosis Differential Diagnosis: chf, copd, anemia Imaging Data Radiologic Study: Attestation: I personally reviewed and interpreted this imaging study as follows: Imaging: X-Ray Radiologist's impression: PROCEDURE INFORMATION: Exam: XR Chest Exam date and time: 07/26/2022 9:05 PM Age: 77 years old Clinical indication: Other: ? Chf TECHNIQUE: Imaging protocol: Radiologic exam of the chest. Views: 1 view. COMPARISON: XR PORTABLE CHEST AP 07/19/2022 5:27 PM FINDINGS: Lungs: Left upper lobe subsegmental atelectasis new since the prior study. Question mild left lower lobe volume loss Pleural spaces: No pleural effusion. No pneumothorax. Heart/Mediastinum: Grossly stable. Bones/joints: Unremarkable. IMPRESSION: Interval development of left-sided upper and lower lobe subsegmental atelectasis as described. ECG Data Attestation: I personally reviewed and interpreted this ECG (s) as follows: Prior ECG tracings: available for review Interpretation: afib, rate of 92, no acute st t wave ischemic findings HPI General Mode of arrival: EMS . Date/Time Provider Initiated Documentation: 07/26/22 19:52 . Limitations to Documentation: no limitations . Information obtained by: patient . History of Present Illness 77 year old M presents to the emergency department with the chief complaint of elevated bnp, described as moderate, Patient reports no radiation. Patient started experiencing this day(s) (1) and it has been constant. No relieving factors improve symptom(s), No exacerbating factors reported . Patient notes no other symptoms.. Patient did receive the following treatments prior to arrival, none Related Data Home Medications Medication Instructions Recorded Confirmed thiamine mononitrate (vit B1) 100 100 mg PO DAILY #30 tabs 08/30/19 07/26/22 mg tablet (Vitamin B-1 (mononitrate)) finasteride 5 mg tablet 5 mg PO DAILY #30 tabs 08/23/20 07/26/22 tamsulosin 0.4 mg capsule 0.8 mg PO DAILY #60 caps 08/23/20 07/26/22 budesonide-formoterol HFA 160 2 puff inhalation BID #10.2 grams 09/02/20 07/26/22 mcg-4.5 mcg/actuation aerosol inhaler (Symbicort) melatonin 3 mg tablet,extended 3 mg PO HS PRN Insomnia #90 tabs 09/02/20 07/26/22 release pantoprazole 40 mg tablet,delayed 40 mg PO BID #60 tabs 09/02/20 07/26/22 release artificial 1 drp ophthalmic (eye) 4-8XD PRN 11/24/20 07/26/22 tears(cslnpor-dnaiemez-nxzrgtv) 0.1 %-0.3 %-0.2 % eye drops nitroglycerin 0.4 mg sublingual 0.4 mg sublingual Q5M PRN 11/24/20 07/26/22 tablet colchicine 0.6 mg capsule 0.6 mg PO DAILY gout prevention 12/15/20 07/26/22 (Mitigare) #90 caps atorvastatin 40 mg tablet 40 mg PO QHS #30 tabs 04/26/21 07/26/22 metoprolol succinate 100 mg 100 mg PO DAILY #30 tabs 04/26/21 07/26/22 tablet,extended release 24 hr sucralfate 1 gram tablet 1 g PO AC & HS #28 tabs 03/31/22 07/26/22 tamsulosin 0.4 mg capsule 0.4 mg PO DAILY #30 caps 03/31/22 07/26/22 furosemide 20 mg tablet (Lasix) 20 mg PO DAILY #10 tabs 07/26/22 furosemide 40 mg tablet (Lasix) 40 mg PO QAM #10 tabs 07/26/22 Previous Rx's Medication Instructions Recorded thiamine mononitrate (vit B1) 100 100 mg PO DAILY #30 tabs 08/30/19 mg tablet (Vitamin B-1 (mononitrate)) finasteride 5 mg tablet 5 mg PO DAILY #30 tabs 08/23/20 tamsulosin 0.4 mg capsule 0.8 mg PO DAILY #60 caps 08/23/20 budesonide-formoterol HFA 160 2 puff inhalation BID #10.2 grams 09/02/20 mcg-4.5 mcg/actuation aerosol inhaler (Symbicort) melatonin 3 mg tablet,extended 3 mg PO HS PRN Insomnia #90 tabs 09/02/20 release pantoprazole 40 mg tablet,delayed 40 mg PO BID #60 tabs 09/02/20 release colchicine 0.6 mg capsule 0.6 mg PO DAILY gout prevention 12/15/20 (Mitigare) #90 caps atorvastatin 40 mg tablet 40 mg PO QHS #30 tabs 04/26/21 metoprolol succinate 100 mg 100 mg PO DAILY #30 tabs 04/26/21 tablet,extended release 24 hr sucralfate 1 gram tablet 1 g PO AC & HS #28 tabs 03/31/22 tamsulosin 0.4 mg capsule 0.4 mg PO DAILY #30 caps 03/31/22 furosemide 20 mg tablet (Lasix) 20 mg PO DAILY #10 tabs 07/26/22 furosemide 40 mg tablet (Lasix) 40 mg PO QAM #10 tabs 07/26/22 Allergies Allergy/AdvReac Type Severity Reaction Status Date / Time bupropion AdvReac Severe seizures Verified 07/19/22 18:43 General Stated Complaint: GenMedical JENNA: 3 Review of Systems All systems reviewed & are unremarkable except as noted in HPI and below Constitutional Constitutional: Denies chills, Denies fever(s) and Denies weakness Cardiovascular Cardiovascular: Denies chest pain and Denies dyspnea Respiratory Respiratory: Denies cough and Denies dyspnea Gastrointestinal Gastrointestinal: Denies abdominal pain, Denies nausea and Denies vomiting Musculoskeletal Musculoskeletal: Denies joint swelling Neurologic Neurologic: Denies weakness PFSH All Active Problems (Updated 07/26/22 @ 22:18 by Marquez Henning MD) Personal history of noncompliance with medical treatment and regimen (Acute) Alcoholic liver disease (Acute) Smoker (Acute) Anemia (Chronic) CHF (congestive heart failure) (Chronic) Acute upper gastrointestinal bleeding (Acute) Alcohol abuse (Chronic) Troponin level elevated (Acute) COPD (chronic obstructive pulmonary disease) (Chronic) Gout (Chronic) Colchicine prevention Sleeping difficulty (Chronic) Melatonin RX Depression (Chronic) Plans on getting connected to social work Tineo's esophagus (Chronic ~04/2019) ETOH; Upper endoscopy 03/2019 (see path report--no tineo's?, but 08/15/2019 surg note says +tineo's) Weakness (Acute) LE weakness; Home PT Urinary retention (Chronic) Dr. Ramos Tobacco abuse disorder (Chronic) Cut down 1/2PPD COPD (chronic obstructive pulmonary disease) (Chronic) Atrial fibrillation (Chronic) Paroxysmal per hospital records; not anticoagulated secondary to recurrent GI bleeds from chronic EtOH use Alcohol use disorder (Chronic) Medical History (Updated 07/26/22 @ 22:18 by Marquez Henning MD) Tineo's esophagus Depression Gastric ulcer GI bleed Hematemesis Insomnia Palliative care patient Dobbertin Radicular pain of right lower extremity Renal insufficiency Right knee pain Smoking hx UTI (urinary tract infection) Surgical History H/O esophagogastroduodenoscopy (~04/2019) [place] [facility] [place] w/ non-bleeding esophageal ulcer. 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) What type of physical activity do you participate in: none Do you feel safe at home: Yes Do you feel safe in your relationship?: Yes Additional Social history: Lives alone in apartment in [facility] for past ~6 years, closest family brother Owen in [place], [place] 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[employer], 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[place] Exam Const General: no acute distress Orientation: alert HENMT Head: normal to inspection Ears: external ears normal General nose exam: external nose normal Mouth: moist mucous membranes Eyes General: appearance normal, both eyes and all related structures Neck Neck: normal visual inspection Resp Effort & Inspection: normal respiratory effort and able to speak in complete sentences Cardio Rate: regular rate Skin General skin exam: no rashes or lesions noted Neuro General: patient alert and patient oriented x3 Extrem General: normal to inspection Psych Mental Status: mental status grossly normal Course Vital Signs Vital signs: Vital Signs Temperature 36.6 C 07/26/22 20:26 Pulse 83 07/26/22 20:26 Respiratory Rate 18 07/26/22 20:26 Blood Pressure 155/85 H 07/26/22 20:26 Pulse Oximetry 96 07/26/22 20:26 Temperature 36.6 C 07/26/22 20:26 Temperature Source Tympanic 07/26/22 20:26 Pulse 83 07/26/22 20:26 Respiratory Rate 18 07/26/22 20:26 Blood Pressure 155/85 H 07/26/22 20:26 Blood Pressure Position Sitting 07/26/22 20:26 Pulse Oximetry 96 07/26/22 20:26 Oxygen Delivery Method Nasal Cannula 07/26/22 20:26 Pain Level 4 07/26/22 20:26
[2022-07-26] MEDS: MAGNESIUM SULFATE 1 GM/100 ML BAG IVPB (21:31)
[2022-07-26] MEDS: Furosemide 20 MG/2 ML VIAL IVP (21:31)
--- NOTE | 2022-07-26 21:36 | DI.VRAD_ITS ---
PROCEDURE INFORMATION: Exam: XR Chest Exam date and time: 07/26/2022 9:05 PM Age: 77 years old Clinical indication: Other: ? Chf TECHNIQUE: Imaging protocol: Radiologic exam of the chest. Views: 1 view. COMPARISON: XR PORTABLE CHEST AP 07/19/2022 5:27 PM FINDINGS: Lungs: Left upper lobe subsegmental atelectasis new since the prior study. Question mild left lower lobe volume loss Pleural spaces: No pleural effusion. No pneumothorax. Heart/Mediastinum: Grossly stable. Bones/joints: Unremarkable. IMPRESSION: Interval development of left-sided upper and lower lobe subsegmental atelectasis as described. Dictated and Authenticated by: Stephen Pretty MD. Ordering:VALDO Zayas MD
[2022-07-26 21:58] LABS: Anion Gap 6.4 mmol/L (3-11); BUN 15 mg/dL (7-18); CO2 29.6 mmol/L (21.0-32.0); CREATININE 1.2 mg/dL (0.70-1.30); Calcium 8.1 mg/dL (8.5-10.1); Chloride 105 mmol/L (98-107); Estimated GFR 62.67 (mL/min/1.73m2); Glucose 114 mg/dL (74-106); Potassium 3.2 mmol/L (3.5-5.1); Sodium 141 mmol/L (136-145); Troponin I < 50 ng/L (<or=60)
--- NOTE | 2022-07-26 22:18 | NUR.NOTE ---
UO 500 ml Nursing Note:
== END 2022-07-26 22:57 | disposition home or self-care (01) ==
PROVIDERS: Emergency Provider Emergency Medicine; PCP Nurse Practitioner Adult Health
DX: I50.9 Heart failure, unspecified (principal); R79.89 Other specified abnormal findings of blood chemistry
CPT/HCPCS: 80048; 93005; 96365; 96375; 99284; 71045; 84484; 93010; J1941; J3475

== ENCOUNTER 2022-08-07 14:59 | Emergency (ER) | payer MEDICARE, MEDICAID, SELFPAY ==
[2022-08-07 14:59] VITALS: BP 104/82; PULSE 79; RESP 15; TEMP 36.7; O2SAT 95
[2022-08-07 15:09] VITALS: BP 104/82; PULSE 75; PULSE 81; RESP 20
[2022-08-07 15:10] VITALS: PULSE 82; RESP 19; RESP 22
--- NOTE | 2022-08-07 17:21 | ED.GENADUL_ITS ---
Discharge Plan Disposition Patient Disposition: HOME Condition: Stable Discharge Details Clinical Impression: Acute constipation Primary Care Provider: Desirae Panda ED Provider: Tim Cassidy Home Meds and New Rx's Prescriptions: New bisacodyl [Dulcolax (bisacodyl)] 10 mg suppository 10 mg [place] DAILY PRNQty: 12 0RF Continued budesonide-formoterol [Symbicort] 160-4.5 mcg/actuation HFA aerosol inhaler 2 puff inhalation BID Qty: 10.2 11RF pantoprazole 40 mg tablet,delayed release (DR/EC) 40 mg PO BID Qty: 60 0RF Rx Instructions: GI bleed melatonin 3 mg tablet extended release 3 mg PO HS PRN (Reason: Insomnia) Qty: 90 3RF Rx Instructions: Sleep difficulty finasteride 5 mg tablet 5 mg PO DAILY Qty: 30 12RF artificial tear(agbtz-rby-udo) 0.1-0.3-0.2 % drops 1 drp ophthalmic (eye) 4-8XD PRN nitroglycerin 0.4 mg tablet, sublingual 0.4 mg sublingual Q5M PRN Rx Instructions: do not exceed 3 doses per episode colchicine [Mitigare] 0.6 mg capsule 0.6 mg PO DAILY Qty: 90 3RF Rx Instructions: Gout prevention metoprolol succinate 100 mg tablet extended release 24 hr 100 mg PO DAILY Qty: 30 0RF atorvastatin 40 mg tablet 40 mg PO QHS Qty: 30 0RF thiamine mononitrate (vit B1) [Vitamin B-1 (mononitrate)] 100 mg Tablet 100 mg PO DAILY Qty: 30 0RF sucralfate 1 gram Tablet 1 g PO AC & HS Qty: 28 0RF tamsulosin 0.4 mg Capsule 0.4 mg PO DAILY Qty: 30 0RF torsemide 20 mg Tablet 20 mg PO DAILY gabapentin 300 mg Capsule 300 mg PO DAILY budesonide-formoterol [Symbicort] 160-4.5 mcg/actuation Hfa Aerosol Inhaler 1 puff INHALATION BID magnesium oxide 400 mg magnesium Tablet 400 mg PO DAILY Discharge Instructions Instructions: Constipation (ED) Additional Instructions: Please use stool softener and continue to use enemas for the next few days. Please contact your primary care physician to arrange follow-up. If symptoms persist, please follow-up with general surgery. Return to the ER immediately for any worsening or new concerning symptoms. Referrals: Desirae Panda DIRECTOR OF SALES SUPPORT [Primary Care Provider] - Medical Decision Making 77-year-old male here with constipation for the past 2 days refractory to enema and stool softeners. Discussed treatment options with the patient and he elected for repeat enema here. Soapsuds enema was performed and he did have small bowel movement. Patient notes he is feeling much better. I offered additional intervention including digital disimpaction and patient provided informed refusal. Patient declines additional diagnostic work-up and request discharge. Plan for discharge back to nursing rehabilitation facility. Plan for continued stool softener and enema over the next couple days. HPI General Mode of arrival: ambulatory . Date/Time Provider Initiated Documentation: 08/07/22 15:39 . Limitations to Documentation: no limitations . Information obtained by: patient . HPI Narrative: 77-year-old male with multiple medical problems presents with chief complaint constipation. Patient has had no bowel movement for the past 2 days he is having rectal discomfort. He did try laxatives and enemas today which were not therapeutic. He notes he did have a small amount of blood in his bowel movement after straining. Patient denies abdominal pain. Constipation is severe and constant. Related Data Home Medications Medication Instructions Recorded Confirmed thiamine mononitrate (vit B1) 100 100 mg PO DAILY #30 tabs 08/30/19 08/07/22 mg tablet (Vitamin B-1 (mononitrate)) finasteride 5 mg tablet 5 mg PO DAILY #30 tabs 08/23/20 08/07/22 budesonide-formoterol HFA 160 2 puff inhalation BID #10.2 grams 09/02/20 08/07/22 mcg-4.5 mcg/actuation aerosol inhaler (Symbicort) melatonin 3 mg tablet,extended 3 mg PO HS PRN Insomnia #90 tabs 09/02/20 08/07/22 release pantoprazole 40 mg tablet,delayed 40 mg PO BID #60 tabs 09/02/20 08/07/22 release artificial 1 drp ophthalmic (eye) 4-8XD PRN 11/24/20 07/26/22 tears(zdmkhyd-qkhgskoz-ykonlqu) 0.1 %-0.3 %-0.2 % eye drops nitroglycerin 0.4 mg sublingual 0.4 mg sublingual Q5M PRN 11/24/20 08/07/22 tablet colchicine 0.6 mg capsule 0.6 mg PO DAILY gout prevention 12/15/20 08/07/22 (Mitigare) #90 caps atorvastatin 40 mg tablet 40 mg PO QHS #30 tabs 04/26/21 08/07/22 metoprolol succinate 100 mg 100 mg PO DAILY #30 tabs 04/26/21 08/07/22 tablet,extended release 24 hr sucralfate 1 gram tablet 1 g PO AC & HS #28 tabs 03/31/22 08/07/22 tamsulosin 0.4 mg capsule 0.4 mg PO DAILY #30 caps 03/31/22 08/07/22 bisacodyl 10 mg rectal suppository 10 mg IL DAILY PRN #12 ea 08/07/22 (Dulcolax (bisacodyl)) budesonide-formoterol HFA 160 1 puff inhalation BID 08/07/22 08/07/22 mcg-4.5 mcg/actuation aerosol inhaler (Symbicort) gabapentin 300 mg capsule 300 mg PO DAILY 08/07/22 08/07/22 magnesium oxide 400 mg PO DAILY 08/07/22 08/07/22 torsemide 20 mg tablet 20 mg PO DAILY 08/07/22 08/07/22 Previous Rx's Medication Instructions Recorded thiamine mononitrate (vit B1) 100 100 mg PO DAILY #30 tabs 08/30/19 mg tablet (Vitamin B-1 (mononitrate)) finasteride 5 mg tablet 5 mg PO DAILY #30 tabs 08/23/20 budesonide-formoterol HFA 160 2 puff inhalation BID #10.2 grams 09/02/20 mcg-4.5 mcg/actuation aerosol inhaler (Symbicort) melatonin 3 mg tablet,extended 3 mg PO HS PRN Insomnia #90 tabs 09/02/20 release pantoprazole 40 mg tablet,delayed 40 mg PO BID #60 tabs 09/02/20 release colchicine 0.6 mg capsule 0.6 mg PO DAILY gout prevention 12/15/20 (Mitigare) #90 caps atorvastatin 40 mg tablet 40 mg PO QHS #30 tabs 04/26/21 metoprolol succinate 100 mg 100 mg PO DAILY #30 tabs 04/26/21 tablet,extended release 24 hr sucralfate 1 gram tablet 1 g PO AC & HS #28 tabs 03/31/22 tamsulosin 0.4 mg capsule 0.4 mg PO DAILY #30 caps 03/31/22 bisacodyl 10 mg rectal suppository 10 mg IL DAILY PRN #12 ea 08/07/22 (Dulcolax (bisacodyl)) Allergies Allergy/AdvReac Type Severity Reaction Status Date / Time bupropion AdvReac Severe seizures Verified 08/07/22 15:06 General Stated Complaint: GenMedical JENNA: 3 Review of Systems All systems reviewed & are unremarkable except as noted in HPI and below Constitutional Constitutional: Denies fever(s) Gastrointestinal Gastrointestinal: Reports abdominal pain PFSH All Active Problems Acute constipation (Acute) Personal history of noncompliance with medical treatment and regimen (Acute) Alcoholic liver disease (Acute) Smoker (Acute) Anemia (Chronic) CHF (congestive heart failure) (Chronic) Acute upper gastrointestinal bleeding (Acute) Alcohol abuse (Chronic) Troponin level elevated (Acute) COPD (chronic obstructive pulmonary disease) (Chronic) Gout (Chronic) Colchicine prevention Sleeping difficulty (Chronic) Melatonin RX Depression (Chronic) Plans on getting connected to social work Tineo's esophagus (Chronic ~04/2019) ETOH; Upper endoscopy 03/2019 (see path report--no tineo's?, but 08/15/2019 surg note says +tineo's) Weakness (Acute) LE weakness; Home PT Urinary retention (Chronic) Dr. Ramos Tobacco abuse disorder (Chronic) Cut down 1/2PPD COPD (chronic obstructive pulmonary disease) (Chronic) Atrial fibrillation (Chronic) Paroxysmal per hospital records; not anticoagulated secondary to recurrent GI bleeds from chronic EtOH use Alcohol use disorder (Chronic) Medical History Tineo's esophagus Depression Gastric ulcer GI bleed Hematemesis Insomnia Palliative care patient Dobbertin Radicular pain of right lower extremity Renal insufficiency Right knee pain Smoking hx UTI (urinary tract infection) Surgical History H/O esophagogast[place]oscopy (~04/2019) [place] [facility] [place] w/ non-bleeding esophageal ulcer. Multiplle inflammatory appearing nodules at [facility] Social History Smoking/Tobacco Use Status: Current every day Tobacco Type: cigarettes Years smoked: 50 Smoking risk assessment performed?: Yes Alcohol Intake: current Alcohol Intake frequency: other Alcohol type: hard liquor Drug use: Never Substance use type: does not use Details: Pt has not had alcohol since being at the [facility]. 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 Right now living at the [facility]. Exam Const General: cooperative and no acute distress HENMT Mouth: moist mucous membranes Eyes Conjunctivae: normal conjunctivae Sclera: normal sclerae Neck Neck: trachea midline and supple Resp Auscultation: clear to auscultation bilaterally, no rales, no rhonchi and no wheezes Cardio Rate: regular rate and not tachycardic Rhythm: regular rhythm GI Palpation: soft, not firm, no guarding, no masses, not rigid and nontender Auscultation: normal bowel sounds Rectal Exam: visual inspection normal and No hemorrhoids Other: No bleeding Neuro General: patient alert, patient awake and tone normal Extrem General: no edema Psych Appearance: grossly normal Mental Status: mental status grossly normal Course Vital Signs Vital signs: Vital Signs Temperature 36.7 C 08/07/22 14:59 Pulse 79 08/07/22 14:59 Respiratory Rate 15 08/07/22 14:59 Blood Pressure 104/82 08/07/22 14:59 Pulse Oximetry 95 08/07/22 14:59 Temperature 36.7 C 08/07/22 14:59 Temperature Source Skin 08/07/22 14:59 Pulse 75 08/07/22 15:09 Pulse 82 08/07/22 15:10 Respiratory Rate 22 08/07/22 15:10 Respiratory Effort Non-Labored 08/07/22 15:10 Respiratory Depth Normal 08/07/22 15:10 Respiratory Pattern Normal 08/07/22 15:10 Blood Pressure 104/82 08/07/22 15:09 Blood Pressure Mean 86 08/07/22 15:09 Blood Pressure Position Supine 08/07/22 14:59 Pulse Oximetry 95 08/07/22 14:59 Oxygen Delivery Method Room Air 08/07/22 14:59 Oxygen Flow Rate 0 08/07/22 14:59 Pain Level 3 08/07/22 14:59 Comment 08/07/22 14:59 PAWSS Have you Been Recently Intoxicated or Drunk Within the Last 30 days?: No Have you Ever Experienced Previous Episodes of Alcohol Withdrawal?: No Have you ever Experienced Withdrawal Seizures?: No Have you ever Experienced Delirium Tremens(DT)s?: No Have you ever undergone Alcohol Rehabilitation Treatment (i.e, inpt ot outpatient treatment programs)?: Yes Have you ever Experienced Blackouts?: No Have you ever Combined Alcohol with other Downers within the last 90 days?: No Have you ever Combined Alcohol with any other Substance of Abuse during the last 90 days?: No Positive Blood Alcohol level on Presentation? [PCS.BAL]: No Evidence of Increased Autonomic Activity (i.e. HR>120, tremor, sweating, agitation, nausea)?: No Result: 1
== END 2022-08-07 18:25 | disposition home or self-care (01) ==
LOC: ER 17:30
PROVIDERS: Emergency Provider Student in an Organized Health Care Education/Training Program; PCP Nurse Practitioner Adult Health
DX: K59.00 Constipation, unspecified (principal)
CPT/HCPCS: 99283

== ENCOUNTER 2022-08-07 17:54 | Outpatient (REF) | payer SELFPAY ==
[2022-08-07 17:57] LABS: Abs Immature Grans 0.05 10^3/uL (0.0-0.06); Absolute Basophil Count 0.04 10^3/uL (0.0-0.2); Absolute Eosinophil Count 0.04 10^3/uL (0.0-0.7); Absolute Lymphocyte Count 0.81 10^3/uL (1.2-3.4); Absolute Monocyte Count 0.51 10^3/uL (0.1-0.8); Absolute Neutrophil Count 6.31 10^3/uL (1.2-6.7); Basophils % 0.5; Eosinophils % 0.5; HCT 30.1 % (40.0-50.0); Immature Grans % 0.6; Lymphocytes % 10.4; MCH 25.1 pg (27.0-33.0); MCHC 29.9 % (32.0-36.0); MCV 84 fL (80-95); MPV 11.7 fL (8.0-11.0); Monocytes % 6.6; Neutrophils % 81.4; Platelet Count 302 10^3/uL (130-400); RBC 3.59 10^6/uL (4.36-5.78); RDW 17.4 % (11.8-14.1); RDW-SD 53.3 fL; WBC 7.76 10^3/uL (4.4-10.8)
[2022-08-07 18:21] LABS: Anion Gap 9.4 mmol/L (3-11); BUN 39 mg/dL (7-18); CO2 31.6 mmol/L (21.0-32.0); CREATININE 2.2 mg/dL (0.70-1.30); Calcium 7.6 mg/dL (8.5-10.1); Chloride 104 mmol/L (98-107); Estimated GFR 30.28 (mL/min/1.73m2); Glucose 113 mg/dL (74-106); NT-proBNP 4263 pg/mL (<300); Potassium 4.4 mmol/L (3.5-5.1); Sodium 145 mmol/L (136-145)
== END 2022-08-07 17:55 | disposition home or self-care (01) ==
LOC: LBN 17:54
PROVIDERS: PCP Nurse Practitioner Adult Health; Visit Provider Nurse Practitioner Gerontology
DX: I50.9 Heart failure, unspecified (principal); E61.2 Magnesium deficiency; D51.0 Vitamin B12 deficiency anemia due to intrinsic factor deficiency; J44.9 Chronic obstructive pulmonary disease, unspecified
CPT/HCPCS: 80048; 83880; 85025

== ENCOUNTER 2022-08-10 08:44 | Emergency (ER) | payer MEDICARE, MEDICAID, SELFPAY ==
--- NOTE | 2022-08-10 08:30 | RT.EKG_ITS ---
APPROVED REPORT Exam: Resting ECG Reason for Exam: Syncope Patient Location: E HR:72 bpm ECG Measurements Heart Rate 72 AXIS HI 167 P -42 QRSd 84 QRS 46 QT 460 T 52 QTc 503 Conclusion Sinus rhythm...normal P axis, V-rate 60- 99 Supraventricular bigeminy...bigeminy string>4 w/ SV complexes Low voltage, extremity leads...all extremity leads <0.5mV Consider anteroseptal infarct...Q >30mS, dimin R, V1-V2 Prolonged QT interval...QTc >500mS. Sinus. Normal axis. No STEMI. I have reviewed and interpreted ECG and agree with software generated interpretation.
[2022-08-10 08:52] VITALS: BP 92/52; PULSE 63; TEMP 36.3; O2SAT 91
[2022-08-10 08:57] VITALS: BP 92/52; PULSE 63; RESP 18; TEMP 36.3; O2SAT 91
[2022-08-10 09:02] VITALS: RESP 16
--- NOTE | 2022-08-10 09:04 | ED.GENADUL_ITS ---
Discharge Plan Disposition Patient Disposition: HOME Condition: Stable Discharge Details Clinical Impression: UTI (urinary tract infection), Dizziness Primary Care Provider: Desirae Panda ED Provider: Nataliia Rolon Home Meds and New Rx's Prescriptions: New levofloxacin 750 mg tablet 750 mg PO DAILY 4 Days Qty: 4 0RF Continued pantoprazole 40 mg tablet,delayed release (DR/EC) 40 mg PO BID Qty: 60 0RF Rx Instructions: GI bleed melatonin 3 mg tablet extended release 3 mg PO HS PRN (Reason: Insomnia) Qty: 90 3RF Rx Instructions: Sleep difficulty finasteride 5 mg tablet 5 mg PO DAILY Qty: 30 12RF artificial tear(xymya-vml-sep) 0.1-0.3-0.2 % drops 1 drp ophthalmic (eye) 4-8XD PRN nitroglycerin 0.4 mg tablet, sublingual 0.4 mg sublingual Q5M PRN Rx Instructions: do not exceed 3 doses per episode colchicine [Mitigare] 0.6 mg capsule 0.6 mg PO DAILY Qty: 90 3RF Rx Instructions: Gout prevention metoprolol succinate 100 mg tablet extended release 24 hr 100 mg PO DAILY Qty: 30 0RF atorvastatin 40 mg tablet 40 mg PO QHS Qty: 30 0RF thiamine mononitrate (vit B1) [Vitamin B-1 (mononitrate)] 100 mg Tablet 100 mg PO DAILY Qty: 30 0RF sucralfate 1 gram Tablet 1 g PO AC & HS Qty: 28 0RF torsemide 20 mg Tablet 20 mg PO DAILY gabapentin 300 mg Capsule 300 mg PO DAILY budesonide-formoterol [Symbicort] 160-4.5 mcg/actuation Hfa Aerosol Inhaler 1 puff INHALATION BID magnesium oxide 400 mg magnesium Tablet 400 mg PO DAILY bisacodyl [Dulcolax (bisacodyl)] 10 mg suppository 10 mg GA DAILY PRNQty: 12 0RF potassium chloride 10 mEq Capsule, Extended Release 10 meq PO DAILY acetaminophen 325 mg Tablet 650 mg PO Q4-5H docusate sodium [Colace] 100 mg Capsule 100 mg PO HS polyethylene glycol 3350 [Miralax] 17 gram/dose Powder 17 g PO DAILY levalbuterol tartrate 45 mcg/actuation Hfa Aerosol Inhaler 1 puff INHALATION Q4H Trelegy Ellipta 100-62.5-25 mcg Blister With Device 1 inh INHALATION Q24H vitamin D3-folic acid 250 mcg (10,000 unit)-1 mg Tablet 5 tab PO QWEEK tamsulosin 0.4 mg capsule 0.8 mg PO DAILY Discharge Instructions Instructions: Urinary Tract Infection in Men (ED), Dizziness (ED) Additional Instructions: Your lab tests today revealed that you have a urinary tract infection. Take the Levaquin as directed until finished. Your hemoglobin is also slightly lower than your last result. Your magnesium was low today and you were given magnesium supplementation in the emergency department. Your EKG and the remainder of your blood tests today are reassuring and show no evidence of acute concerning findings. Follow-up with your primary care doctor in 1 week. Return to the emergency department with any worsening or new concerning symptoms. Discharge Data Discharge Physician: Nataliia Rolon Medical Decision Making 77-year-old male with a history of alcohol abuse, GI bleed with previous history of admissions for upper GI bleeding who was admitted here last month in the setting of active alcohol use and GI bleeding who declined endoscopy or further work-up and transfused with 2 units of PRBCs and discharged to the [facility] for rehabilitation presents from the [facility] for fall this morning with intermittent dizziness and continued constipation. Patient denies any injury from the fall. His blood pressure was initially soft on arrival at 92/52. He is afebrile and appears nontoxic. He is moving all extremities without focal deficits. Lungs clear bilaterally. Abdomen soft nontender. He has had pain with constipation but rectum appears normal to inspection. There is no evidence of cellulitis, hemorrhoid or mass. No meninge al signs. History and presentation does not appear consistent with CVA or meningitis. Will place an IV, bolus of fluids, screening labs, urinalysis,, ekg, IV tylenol for rectal pain and reassess. EKG notes a rate of 72, sinus, normal axis, no STEMI nondiagnostic. Labs and imaging reviewed. Hemoglobin 8.4 which is close to his baseline. Creatinine 1.9 which is improved compared to his recent baseline. Troponin negative. Urinalysis appears consistent with UTI. Patient states he feels much better and would like to go back to the [facility]. A dose of Levaquin ordered. We will send with a prescription for Levaquin back to the [facility]. Advised to follow up with the primary care doctor for re-evaluation. Usual and customary return precautions given prior to discharge. Medical Records Medical records reviewed: Yes I reviewed the patient's medical records. Lab Data Lab results reviewed: Yes I reviewed the patient's lab results. Labs: 08/10/22 09:26 Urine - Reflex from Ua Urine Culture - Pending Laboratory Tests Range/Units 08/10/22 08/10/22 08/10/22 09:26 09:48 09:48 WBC (4.4-10.8) 10^3/uL 5.77 RBC (4.36-5.78) 10^6/uL 3.35 L Hgb (13.5-17.5) g/dL 8.4 L Hct (40.0-50.0) % 28.0 L MCV (80-95) fL 84 MCH (27.0-33.0) pg 25.1 L MCHC (32.0-36.0) % 30.0 L RDW (11.8-14.1) % 17.2 H Plt Count (130-400) 10^3/uL 287 MPV (8.0-11.0) fL 10.7 Immature Gran % 1.0 Neutrophils % 72.0 Lymphocytes % 15.4 Monocytes % 8.8 Eosinophils % 1.9 Basophils % 0.9 Nucleated RBC % (0.0-0.3) % 0.0 Absolute Neutrophils (1.2-6.7) 10^3/uL 4.15 Absolute Lymphocytes (1.2-3.4) 10^3/uL 0.89 L Absolute Monocytes (0.1-0.8) 10^3/uL 0.51 Absolute Eosinophils (0.0-0.7) 10^3/uL 0.11 Absolute Basophils (0.0-0.2) 10^3/uL 0.05 Sodium (136-145) mmol/L 142 Potassium (3.5-5.1) mmol/L 4.0 Chloride (98-107) mmol/L 105 Carbon Dioxide (21.0-32.0) mmol/L 28.5 Anion Gap (3-11) mmol/L 8.5 BUN (7-18) mg/dL 32 H Creatinine (0.70-1.30) mg/dL 1.9 H Est GFR (CKD-EPI 2020) (mL/min/1.73m2) 36.11 Glucose (74-106) mg/dL 109 H Calcium (8.5-10.1) mg/dL 7.6 L Magnesium (1.8-2.4) mg/dL 1.4 L Total Bilirubin (0.2-1.0) mg/dL 0.5 AST (15-37) U/L 26 ALT (16-63) U/L 23 Alkaline Phosphatase (46-116) U/L 64 Troponin I (<or=60) ng/L < 50 Total Protein (6.4-8.2) g/dL 6.2 L Albumin (3.4-5.0) g/dL 2.7 L Urine Color (Yellow) Yellow Urine Clarity (Clear) Sl Cloudy Urine pH (5-8) 7.0 Ur Specific [place] (1.005-1.025) 1.020 Urine Protein (Negative) mg/dL Negative Urine Ketones (Negative) mg/dL Negative Urine Blood (Negative) Trace-intact H Urine Nitrite (Negative) Positive H Urine Bilirubin (Negative) Negative Urine Urobilinogen (Up TO 0.2) EU/dL 0.2 Ur Leukocyte Esterase (Negative) Large H Urine RBC (0-2) HPF 0-2 Urine WBC (0-5) HPF >50 H Ur Epithelial Cells (Negative) HPF Rare Urine Crystals (Negative) HPF Negative Urine Bacteria (Negative) HPF Moderate Urine Casts (Negative) LPF Negative Urine Mucus (Negative) Negative Ur Culture Indicated? Yes Urine Glucose (Negative) mg/dL Negative ECG Data Attestation: I personally reviewed and interpreted this ECG (s) as follows: Interpretation: Rate of 72, sinus, normal axis, no STEMI. HPI General Mode of arrival: EMS . Date/Time Provider Initiated Documentation: 08/10/22 09:02 . Limitations to Documentation: no limitations . Information obtained by: patient . HPI Narrative: Patient is a 77-year-old male with a history of former alcohol abuse, atrial fibrillation, COPD, CHF who has been seen here 3 times in the past few weeks and admitted late last month for GI bleed in the setting of alcohol use who was discharged to the [facility] for rehabilitation presents from the [facility] for dizziness and constipation. Patient states he got up to use the bathroom today and uses a walker as needed for ambulation. Patient states he was walking back from the bathroom and felt lightheaded and fell. He denies any injury from the fall. He states he has been eating and drinking. He denies any fever, sore throat, cough, shortness of breath, abdominal pain, urinary symptoms, vomiting or diarrhea. Patient states he normally has a bowel movement every other day. He states that since he was admitted here he has been having difficulty with bowel movements. He states he did have a small bowel movement this morning. Related Data Home Medications Medication Instructions Recorded Confirmed thiamine mononitrate (vit B1) 100 100 mg PO DAILY #30 tabs 08/30/19 08/10/22 mg tablet (Vitamin B-1 (mononitrate)) finasteride 5 mg tablet 5 mg PO DAILY #30 tabs 08/23/20 08/10/22 melatonin 3 mg tablet,extended 3 mg PO HS PRN Insomnia #90 tabs 09/02/20 08/10/22 release pantoprazole 40 mg tablet,delayed 40 mg PO BID #60 tabs 09/02/20 08/10/22 release artificial 1 drp ophthalmic (eye) 4-8XD PRN 11/24/20 08/10/22 tears(ivgeotz-wcizrttg-gggpnrw) 0.1 %-0.3 %-0.2 % eye drops nitroglycerin 0.4 mg sublingual 0.4 mg sublingual Q5M PRN 11/24/20 08/10/22 tablet colchicine 0.6 mg capsule 0.6 mg PO DAILY gout prevention 12/15/20 08/10/22 (Mitigare) #90 caps atorvastatin 40 mg tablet 40 mg PO QHS #30 tabs 04/26/21 08/10/22 metoprolol succinate 100 mg 100 mg PO DAILY #30 tabs 04/26/21 08/10/22 tablet,extended release 24 hr sucralfate 1 gram tablet 1 g PO AC & HS #28 tabs 03/31/22 08/10/22 bisacodyl 10 mg rectal suppository 10 mg GA DAILY PRN #12 ea 08/07/22 08/10/22 (Dulcolax (bisacodyl)) budesonide-formoterol HFA 160 1 puff inhalation BID 08/07/22 08/10/22 mcg-4.5 mcg/actuation aerosol inhaler (Symbicort) gabapentin 300 mg capsule 300 mg PO DAILY 08/07/22 08/10/22 magnesium oxide 400 mg PO DAILY 08/07/22 08/10/22 torsemide 20 mg tablet 20 mg PO DAILY 08/07/22 08/10/22 acetaminophen 325 mg tablet 650 mg PO Q4-5H 08/10/22 08/10/22 docusate sodium 100 mg capsule 100 mg PO HS 08/10/22 08/10/22 (Colace) fluticasone fur. 100 mcg-umeclid 1 inh inhalation Q24H 08/10/22 08/10/22 62.5 mcg-vilant 25 mcg inhalat.powder (Trelegy Ellipta) levalbuterol tartrate 45 1 puff inhalation Q4H 08/10/22 08/10/22 mcg/actuation aerosol inhaler levofloxacin 750 mg tablet 750 mg PO DAILY 4 days #4 tabs 08/10/22 polyethylene glycol 3350 17 17 g PO DAILY 08/10/22 08/10/22 gram/dose oral powder (Miralax) potassium chloride 10 mEq 10 meq PO DAILY 08/10/22 08/10/22 capsule,extended release tamsulosin 0.4 mg capsule 0.8 mg PO DAILY 08/10/22 08/10/22 vitamin D3 250 mcg (10,000 5 tab PO QWEEK 08/10/22 08/10/22 unit)-folic acid 1 mg tablet Previous Rx's Medication Instructions Recorded thiamine mononitrate (vit B1) 100 100 mg PO DAILY #30 tabs 08/30/19 mg tablet (Vitamin B-1 (mononitrate)) finasteride 5 mg tablet 5 mg PO DAILY #30 tabs 08/23/20 melatonin 3 mg tablet,extended 3 mg PO HS PRN Insomnia #90 tabs 09/02/20 release pantoprazole 40 mg tablet,delayed 40 mg PO BID #60 tabs 09/02/20 release colchicine 0.6 mg capsule 0.6 mg PO DAILY gout prevention 12/15/20 (Mitigare) #90 caps atorvastatin 40 mg tablet 40 mg PO QHS #30 tabs 04/26/21 metoprolol succinate 100 mg 100 mg PO DAILY #30 tabs 04/26/21 tablet,extended release 24 hr sucralfate 1 gram tablet 1 g PO AC & HS #28 tabs 03/31/22 bisacodyl 10 mg rectal suppository 10 mg GA DAILY PRN #12 ea 08/07/22 (Dulcolax (bisacodyl)) levofloxacin 750 mg tablet 750 mg PO DAILY 4 days #4 tabs 08/10/22 Allergies Allergy/AdvReac Type Severity Reaction Status Date / Time bupropion AdvReac Severe seizures Verified 08/10/22 09:00 General Stated Complaint: Dizzy/Sync JENNA: 3 Review of Systems All systems reviewed & are unremarkable except as noted in HPI and below Constitutional Constitutional: Reports as per HPI, Denies chills and Denies fever(s) Eyes Eyes: Denies blurry vision ENT Ears, Nose, Mouth, and Throat: Reports dizziness, Denies sore throat and Denies throat swelling Cardiovascular Cardiovascular: Denies chest pain and Denies dyspnea Respiratory Respiratory: Denies cough and Denies dyspnea Gastrointestinal Gastrointestinal: Denies abdominal pain, Denies diarrhea and Denies vomiting Genitourinary Genitourinary: Denies hematuria and Denies dysuria Musculoskeletal Musculoskeletal: Denies back pain and Denies numbness Integumentary/Breasts Skin/Breast: Denies lesions and Denies rash Neurologic Neurologic: Reports dizziness, Denies localized weakness and Denies numbness Allergic/Immunologic Allergic/Immunologic: Denies throat swelling PFSH All Active Problems (Updated 08/10/22 @ 13:04 by Nataliia Rolon DO) Acute constipation (Acute) UTI (urinary tract infection) (Acute) Dizziness (Acute) Personal history of noncompliance with medical treatment and regimen (Acute) Alcoholic liver disease (Acute) Smoker (Acute) Anemia (Chronic) CHF (congestive heart failure) (Chronic) Acute upper gastrointestinal bleeding (Acute) Alcohol abuse (Chronic) Troponin level elevated (Acute) COPD (chronic obstructive pulmonary disease) (Chronic) Gout (Chronic) Colchicine prevention Sleeping difficulty (Chronic) Melatonin RX Depression (Chronic) Plans on getting connected to social work Tineo's esophagus (Chronic ~04/2019) ETOH; Upper endoscopy 03/2019 (see path report--no tineo's?, but 08/15/2019 surg note says +tineo's) Weakness (Acute) LE weakness; Home PT Urinary retention (Chronic) Dr. Ramos Tobacco abuse disorder (Chronic) Cut down 1/2PPD COPD (chronic obstructive pulmonary disease) (Chronic) Atrial fibrillation (Chronic) Paroxysmal per hospital records; not anticoagulated secondary to recurrent GI bleeds from chronic EtOH use Alcohol use disorder (Chronic) Medical History Tineo's esophagus Depression Gastric ulcer GI bleed Hematemesis Insomnia Palliative care patient [place] Radicular pain of right lower extremity Renal insufficiency Right knee pain Smoking hx UTI (urinary tract infection) Surgical History H/O esophagogastroduodenoscopy (~04/2019) Repeat on 10/26/20 [facility] severe reflux esophagitis w/ non-bleeding esophageal ulcer. Multiplle inflammatory appearing nodules at [facility] Social History Smoking/Tobacco Use Status: Current every day Tobacco Type: cigarettes Years smoked: 50 Smoking risk assessment performed?: Yes Alcohol Intake: current Alcohol Intake frequency: other Alcohol type: hard liquor Drug use: Never Substance use type: does not use Details: Pt has not had alcohol since being at the [facility]. 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 Right now living at [facility]. Exam Const General: cooperative and no acute distress Orientation: alert, awake and oriented x3 HENMT Head: normal to inspection Face and sinus: normal facial exam Eyes General: appearance normal, both eyes and all related structures Pupils: PERRL EOM: EOM intact bilaterally Neck Neck: normal visual inspection and No submandibular swelling Lymphatic: no lymphadenopathy noted Chest Chest: normal inspection of the chest and no tenderness Resp Effort & Inspection: normal respiratory effort and able to speak in complete sentences Auscultation: clear to auscultation bilaterally Cardio Rate: regular rate Rhythm: regular rhythm GI Inspection: normal to inspection Palpation: soft, not firm, not rigid and nontender Auscultation: hypoactive bowel sounds Rectal Exam: visual inspection normal Male General Exam: Yes normal external exam Back/Spine/Pelvis Thoracic/Lumbar Spine: thoracic and lumbar spine normal to inspection Skin General skin exam: no rashes or lesions noted Neuro General: patient alert, patient awake, patient oriented x3, moves all extremities and no meningeal signs Cognition: normal cognition Speech: speech normal Motor: muscle tone normal throughout Sensory Exam: no sensory deficits noted Extrem General: normal to inspection, full ROM, capillary refill normal, no calf tenderness bilaterally and no edema Psych Appearance: grossly normal Mental Status: mental status grossly normal Speech and Movement: speech and movement normal Affect: normal affect Course Vital Signs Vital signs: Vital Signs Temperature 97.4 F L 08/10/22 08:52 Pulse 63 08/10/22 08:52 Blood Pressure 92/52 L 08/10/22 08:52 Pulse Oximetry 91 L 08/10/22 08:52 Temperature 97.4 F L 08/10/22 08:57 Temperature Source Oral 08/10/22 08:57 Pulse 63 08/10/22 08:57 Respiratory Rate 18 08/10/22 08:57 Respiratory Effort Non-Labored 08/10/22 09:01 Blood Pressure 92/52 L 08/10/22 08:57 Blood Pressure Position Supine 08/10/22 08:57 Pulse Oximetry 91 L 08/10/22 08:57 Oxygen Delivery Method Room Air 08/10/22 08:57 Oxygen Flow Rate 0 08/10/22 08:57 Pain Level 2 08/10/22 08:57
[2022-08-10 09:43] LABS: Bilirubin Negative (Negative); Blood Trace-intact (Negative); Clarity Sl Cloudy (Clear); Glucose Negative (Negative); Ketones Negative (Negative); Leukocyte Esterase Large (Negative); Nitrite Positive (Negative); Urobilinogen 0.2 EU/dL (Up TO 0.2)
[2022-08-10 09:49] LABS: Bacteria Moderate HPF (Negative); C & S Indicated? Yes; Casts Negative LPF (Negative); Crystals Negative HPF (Negative); Epithelial Cells Rare HPF (Negative); Mucus Negative (Negative); RBC 0-2 HPF (0-2); WBC >50 HPF (0-5)
[2022-08-10 09:55] LABS: Abs Immature Grans 0.06 10^3/uL (0.0-0.06); Absolute Basophil Count 0.05 10^3/uL (0.0-0.2); Absolute Eosinophil Count 0.11 10^3/uL (0.0-0.7); Absolute Lymphocyte Count 0.89 10^3/uL (1.2-3.4); Absolute Monocyte Count 0.51 10^3/uL (0.1-0.8); Absolute Neutrophil Count 4.15 10^3/uL (1.2-6.7); Basophils % 0.9; Eosinophils % 1.9; HGB 8.4 g/dL (13.5-17.5); Lymphocytes % 15.4; MCH 25.1 pg (27.0-33.0); MCV 84 fL (80-95); MPV 10.7 fL (8.0-11.0); Monocytes % 8.8; Platelet Count 287 10^3/uL (130-400); RBC 3.35 10^6/uL (4.36-5.78); RDW 17.2 % (11.8-14.1); RDW-SD 52.9 fL; WBC 5.77 10^3/uL (4.4-10.8)
[2022-08-10 10:13] LABS: ALT 23 U/L (16-63); AST 26 U/L (15-37); Albumin 2.7 g/dL (3.4-5.0); Alkaline Phosphatase 64 U/L (46-116); Anion Gap 8.5 mmol/L (3-11); BUN 32 mg/dL (7-18); Bilirubin, Total 0.5 mg/dL (0.2-1.0); CO2 28.5 mmol/L (21.0-32.0); CREATININE 1.9 mg/dL (0.70-1.30); Calcium 7.6 mg/dL (8.5-10.1); Chloride 105 mmol/L (98-107); Estimated GFR 36.11 (mL/min/1.73m2); Glucose 109 mg/dL (74-106); Magnesium 1.4 mg/dL (1.8-2.4); Sodium 142 mmol/L (136-145); Total Protein 6.2 g/dL (6.4-8.2); Troponin I < 50 ng/L (<or=60)
[2022-08-10] MEDS: ACETAMINOPHEN 1,000 MG/100 ML BTL 400 MG IVPB (11:00)
[2022-08-10] MEDS: Normal Saline 250 ML 500 ML IV (11:01)
[2022-08-10] MEDS: levoFLOXacin 500 MG, levoFLOXacin 250 MG 750 MG PO (11:01)
[2022-08-10] MEDS: MAGNESIUM SULFATE 2 GM/50 ML BAG IVPB (11:13)
[2022-08-10 12:56] VITALS: BP 104/61; PULSE 94; TEMP 36.6; O2SAT 94
[2022-08-10 13:23] VITALS: BP 104/61; PULSE 94; RESP 18; TEMP 36.6; O2SAT 94
--- NOTE | 2022-08-12 09:52 | NUR.NOTE ---
Nursing Note: Accessed chart to look up whether or not on antibiotic.
== END 2022-08-10 15:07 | disposition home or self-care (01) ==
PROVIDERS: Emergency Provider Physician Assistant; PCP Nurse Practitioner Adult Health
DX: N39.0 Urinary tract infection, site not specified (principal); R42 Dizziness and giddiness; J44.9 Chronic obstructive pulmonary disease, unspecified; I48.91 Unspecified atrial fibrillation; I50.9 Heart failure, unspecified; Z79.51 Long term (current) use of inhaled steroids
CPT/HCPCS: 36415; 80053; 87077; 93005; 96365; 96366; 96375; 99284; 81003; 81015; 83735; 84484; 85025; 87086; 87186; 93010; J0131

== ENCOUNTER 2022-08-14 17:49 | Outpatient (REF) | payer MEDICARE, MEDICAID, SELFPAY ==
[2022-08-14 18:06] LABS: Abs Immature Grans 0.07 10^3/uL (0.0-0.06); Absolute Basophil Count 0.07 10^3/uL (0.0-0.2); Absolute Eosinophil Count 0.13 10^3/uL (0.0-0.7); Absolute Lymphocyte Count 1.52 10^3/uL (1.2-3.4); Absolute Monocyte Count 0.68 10^3/uL (0.1-0.8); Absolute Neutrophil Count 4.38 10^3/uL (1.2-6.7); Eosinophils % 1.9; HCT 29.1 % (40.0-50.0); HGB 8.6 g/dL (13.5-17.5); Lymphocytes % 22.2; MCH 24.6 pg (27.0-33.0); MCHC 29.6 % (32.0-36.0); MCV 83 fL (80-95); MPV 11.3 fL (8.0-11.0); Monocytes % 9.9; Platelet Count 355 10^3/uL (130-400); RBC 3.49 10^6/uL (4.36-5.78); RDW 17.2 % (11.8-14.1); RDW-SD 52.4 fL; WBC 6.85 10^3/uL (4.4-10.8)
[2022-08-14 18:24] LABS: NT-proBNP 2698 pg/mL (<300)
== END 2022-08-14 17:50 | disposition home or self-care (01) ==
LOC: LBN 17:49
PROVIDERS: PCP Nurse Practitioner Adult Health; Visit Provider Nurse Practitioner Gerontology
DX: I50.9 Heart failure, unspecified (principal); J44.9 Chronic obstructive pulmonary disease, unspecified; R53.1 Weakness
CPT/HCPCS: 83880; 85025

== ENCOUNTER 2022-08-22 15:44 | Outpatient (REF) | payer MEDICARE, MEDICAID, SELFPAY ==
[2022-08-22 16:36] LABS: Abs Immature Grans 0.03 10^3/uL (0.0-0.06); Absolute Basophil Count 0.04 10^3/uL (0.0-0.2); Absolute Eosinophil Count 0.08 10^3/uL (0.0-0.7); Absolute Lymphocyte Count 0.82 10^3/uL (1.2-3.4); Absolute Monocyte Count 0.71 10^3/uL (0.1-0.8); Absolute Neutrophil Count 3.23 10^3/uL (1.2-6.7); Basophils % 0.8; Eosinophils % 1.6; HGB 8.1 g/dL (13.5-17.5); Immature Grans % 0.6; Lymphocytes % 16.7; MCV 80 fL (80-95); MPV 10.8 fL (8.0-11.0); Monocytes % 14.5; Neutrophils % 65.8; Platelet Count 237 10^3/uL (130-400); RBC 3.38 10^6/uL (4.36-5.78); RDW 17.7 % (11.8-14.1); RDW-SD 51.5 fL; WBC 4.91 10^3/uL (4.4-10.8)
[2022-08-22 16:53] LABS: ALT 55 U/L (16-63); AST 58 U/L (15-37); Albumin 3.2 g/dL (3.4-5.0); Alkaline Phosphatase 72 U/L (46-116); Anion Gap 7.9 mmol/L (3-11); BUN 65 mg/dL (7-18); Bilirubin, Total 0.3 mg/dL (0.2-1.0); CO2 26.1 mmol/L (21.0-32.0); CREATININE 2.3 mg/dL (0.70-1.30); Calcium 8.9 mg/dL (8.5-10.1); Chloride 102 mmol/L (98-107); Estimated GFR 28.71 (mL/min/1.73m2); Glucose 100 mg/dL (74-106); NT-proBNP 972 pg/mL (<300); Potassium 4.8 mmol/L (3.5-5.1); Sodium 136 mmol/L (136-145); Total Protein 6.1 g/dL (6.4-8.2)
== END 2022-08-22 15:45 | disposition home or self-care (01) ==
LOC: LBN 15:44
PROVIDERS: PCP Nurse Practitioner Adult Health; Visit Provider Nurse Practitioner Gerontology
DX: I50.9 Heart failure, unspecified (principal); K92.2 Gastrointestinal hemorrhage, unspecified; F10.10 Alcohol abuse, uncomplicated; D51.0 Vitamin B12 deficiency anemia due to intrinsic factor deficiency
CPT/HCPCS: 80053; 83880; 85025

== ENCOUNTER 2022-08-27 18:21 | Outpatient (REF) | payer MEDICARE, MEDICAID, SELFPAY ==
[2022-08-27 19:56] LABS: ALT 29 U/L (16-63); AST 25 U/L (15-37); Albumin 3.7 g/dL (3.4-5.0); Alkaline Phosphatase 76 U/L (46-116); Anion Gap 11.7 mmol/L (3-11); Bilirubin, Total 0.5 mg/dL (0.2-1.0); CO2 26.3 mmol/L (21.0-32.0); CREATININE 3.2 mg/dL (0.70-1.30); Calcium 8.8 mg/dL (8.5-10.1); Chloride 101 mmol/L (98-107); Estimated GFR 19.32 (mL/min/1.73m2); Glucose 106 mg/dL (74-106); NT-proBNP 983 pg/mL (<300); Potassium 4.2 mmol/L (3.5-5.1); Sodium 139 mmol/L (136-145); Total Protein 6.9 g/dL (6.4-8.2)
[2022-08-27 20:12] LABS: BUN 93 mg/dL (7-18)
== END 2022-08-27 18:22 | disposition home or self-care (01) ==
LOC: LBN 18:21
PROVIDERS: PCP Nurse Practitioner Adult Health; Visit Provider Nurse Practitioner Gerontology
DX: I50.9 Heart failure, unspecified (principal); J44.9 Chronic obstructive pulmonary disease, unspecified; R68.89 Other general symptoms and signs
CPT/HCPCS: 80053; 83880

== ENCOUNTER 2022-09-03 21:49 | Outpatient (REF) | payer SELFPAY ==
[2022-09-03 20:28] LABS: ALT 72 U/L (16-63); AST 80 U/L (15-37); Alkaline Phosphatase 72 U/L (46-116); Anion Gap 11.3 mmol/L (3-11); BUN 64 mg/dL (7-18); Bilirubin, Total 0.3 mg/dL (0.2-1.0); CO2 26.7 mmol/L (21.0-32.0); CREATININE 2.5 mg/dL (0.70-1.30); Calcium 9.8 mg/dL (8.5-10.1); Chloride 104 mmol/L (98-107); Estimated GFR 25.98 (mL/min/1.73m2); Glucose 103 mg/dL (74-106); Potassium 4.8 mmol/L (3.5-5.1); Sodium 142 mmol/L (136-145)
[2022-09-04 13:57] LABS: NT-proBNP 1074 pg/mL (<300)
== END 2022-09-03 21:50 | disposition home or self-care (01) ==
LOC: LBN 21:49
PROVIDERS: PCP Nurse Practitioner Adult Health; Visit Provider Nurse Practitioner Gerontology
DX: R68.89 Other general symptoms and signs (principal); F10.10 Alcohol abuse, uncomplicated; M10.9 Gout, unspecified; K70.9 Alcoholic liver disease, unspecified
CPT/HCPCS: 80053; 83880

== ENCOUNTER 2022-09-19 18:20 | Outpatient (REF) | payer MEDICARE, MEDICAID, SELFPAY ==
[2022-09-19 19:05] LABS: Abs Immature Grans 0.04 10^3/uL (0.0-0.06); Absolute Basophil Count 0.03 10^3/uL (0.0-0.2); Absolute Eosinophil Count 0.11 10^3/uL (0.0-0.7); Absolute Lymphocyte Count 1.23 10^3/uL (1.2-3.4); Absolute Monocyte Count 0.46 10^3/uL (0.1-0.8); Absolute Neutrophil Count 2.96 10^3/uL (1.2-6.7); Basophils % 0.6; Eosinophils % 2.3; HCT 31.5 % (40.0-50.0); HGB 9.4 g/dL (13.5-17.5); Immature Grans % 0.8; Lymphocytes % 25.5; MCH 25.7 pg (27.0-33.0); MCHC 29.8 % (32.0-36.0); MCV 86 fL (80-95); MPV 11.7 fL (8.0-11.0); Monocytes % 9.5; Neutrophils % 61.3; Platelet Count 228 10^3/uL (130-400); RBC 3.66 10^6/uL (4.36-5.78); RDW 22.3 % (11.8-14.1); RDW-SD 69.3 fL; WBC 4.83 10^3/uL (4.4-10.8)
[2022-09-19 19:31] LABS: ALT 43 U/L (16-63); AST 42 U/L (15-37); Albumin 3.7 g/dL (3.4-5.0); Alkaline Phosphatase 71 U/L (46-116); Anion Gap 9.8 mmol/L (3-11); BUN 74 mg/dL (7-18); Bilirubin, Total 0.3 mg/dL (0.2-1.0); CO2 27.2 mmol/L (21.0-32.0); CREATININE 2.2 mg/dL (0.70-1.30); Chloride 104 mmol/L (98-107); Estimated GFR 30.28 (mL/min/1.73m2); Glucose 111 mg/dL (74-106); NT-proBNP 759 pg/mL (<300); Potassium 4.6 mmol/L (3.5-5.1); Sodium 141 mmol/L (136-145); Total Protein 6.5 g/dL (6.4-8.2); Uric Acid 10.1 mg/dL (3.5-7.2)
[2022-09-19 19:37] LABS: Anisocytosis 2+; Diff Comment RBC Morph Reviewed; Polychromasia Present
[2022-09-19 19:43] LABS: Vitamin D 25 Total 30.2 ng/mL (30-100)
== END 2022-09-19 18:21 | disposition home or self-care (01) ==
LOC: LBN 18:20
PROVIDERS: PCP Nurse Practitioner Adult Health; Visit Provider Nurse Practitioner Gerontology
DX: I50.9 Heart failure, unspecified (principal); R68.89 Other general symptoms and signs; M10.9 Gout, unspecified; N18.30 Chronic kidney disease, stage 3 unspecified; D51.0 Vitamin B12 deficiency anemia due to intrinsic factor deficiency
CPT/HCPCS: 80053; 82306; 83880; 84550; 85025

== ENCOUNTER 2023-03-05 10:39 | Inpatient (IN) | payer MEDICARE, MEDICAID, SELFPAY ==
[2023-03-05] VITALS (21 sets, daily range): BP systolic 127–160; BP diastolic 81–109; PULSE 66–112; RESP 8–23; TEMP 36.1–36.8; O2SAT 94–99
--- NOTE | 2023-03-05 10:45 | DI.RAD_ITS ---
Exam(s) XR PORTABLE CHEST AP EXAM: XR PORTABLE CHEST AP CLINICAL HISTORY: shortness of breath TECHNIQUE: 2D digital imaging was performed of the chest. One image was obtained. An AP view was ob tained. COMPARISON: CR,XR XR PORTABLE CHEST AP from 07/26/2022 FINDINGS: MEDIASTINUM: Normal. HEART: Normal. PULMONARY VASCULATURE: Normal. LUNGS: Clear. PLEURAL SPACE: No pleural effusion or pneumothorax. BONE:Within normal limits for the patient's age. OTHER FINDINGS:Normal. IMPRESSION: No acute pulmonary findings. DATA REPOSITORY: RADIATION DOSE DELIVERED:
--- NOTE | 2023-03-05 10:45 | RT.EKG_ITS ---
APPROVED REPORT Exam: Resting ECG Reason for Exam: shortness of breath Patient Location: E HR:100 bpm ECG Measurements Heart Rate 100 AXIS NC [id number] P [id number] QRSd 80 QRS 62 QT 366 T 58 QTc 473 Conclusion Atrial fibrillation...V-rate 81-115, irreg A-activity
--- NOTE | 2023-03-05 10:55 | W.ED.GENAD ---
Discharge Plan Disposition Patient Disposition: Admit to [facility] Discharge Details Chief Complaint: GenMedical Clinical Impression: Nausea and vomiting, Acute dehydration, COPD exacerbation Primary Care Provider: Desirae Panda ED Provider: Geoff Henning Home Meds and New Rx's Prescriptions: No Action torsemide 10 mg tablet 10 mg PO DAILY Qty: 90 3RF magnesium chloride 64 mg magnesium tablet 64 mg PO BID Qty: 90 3RF Rx Instructions: Delayed release cholecalciferol (vitamin D3) 1,250 mcg (50,000 unit) capsule 1,250 mcg PO QWEEK Qty: 56 0RF docusate sodium [Colace] 100 mg capsule 100 mg PO BID PRN (Reason: constipation) Qty: 180 3RF Rx Instructions: Liquid filled capsules potassium chloride 10 mEq capsule, extended release 10 meq PO DAILY Qty: 90 3RF pantoprazole 40 mg tablet,delayed release (DR/EC) 40 mg PO BID Qty: 180 3RF Rx Instructions: GI bleed metoprolol succinate 100 mg tablet extended release 24 hr 100 mg PO DAILY Qty: 90 3RF melatonin 3 mg tablet extended release 3 mg PO HS PRN (Reason: Insomnia) Qty: 90 3RF Rx Instructions: Sleep difficulty tamsulosin 0.4 mg capsule 0.8 mg PO DAILY Qty: 180 3RF finasteride 5 mg tablet 5 mg PO DAILY Qty: 30 12RF atorvastatin 40 mg tablet 40 mg PO QHS Qty: 90 3RF levalbuterol tartrate 45 mcg/actuation HFA aerosol inhaler 1 puff INHALATION Q4H Qty: 15 3RF nitroglycerin 0.4 mg tablet, sublingual 0.4 mg sublingual Q5M PRN Rx Instructions: do not exceed 3 doses per episode colchicine [Mitigare] 0.6 mg capsule 0.6 mg PO DAILY Qty: 90 3RF Rx Instructions: Gout prevention acetaminophen 325 mg Tablet 650 mg PO Q4-5H Trelegy Ellipta 100-62.5-25 mcg Blister With Device 1 inh INHALATION Q24H Medical Decision Making 77-year-old male with above history is now presenting with shortness of breath and weakness. Mild and expiratory wheezing and could represent COPD and will give steroids and nebulizer treatments to see if this helps with his symptoms. Doubt CHF but will check proBNP and chest x-ray. Chest x-ray will also evaluate for pneumonia or pneumothorax. Doubt ACS given no chest pain but will check EKG and cardiac enzymes. He has generalized weakness with history of GI bleeds but no black or bloody stools presently. We will check CBC to look for anemia. We will get broad labs look for electrolyte or metabolic cause of the patient's symptoms. Sounds like he has had some poor p.o. intake so we will give some IV fluids. No focal signs of infection on examination or in history. Will await initial testing and response to therapy and reevaluate. 1400 Labs unremarkable other than mild anion gap metabolic acidosis. Unclear etiology. No lactic acidosis. Chest x-ray is unremarkable. Still says he could not take p.o. Given additional nausea medication and IV fluids without improvement. Reach out to the hospitalist for poor p.o. intake and dehydration. They are agreeable to admission. Patient is agreeable to stay. Likely anion gap metabolic acidosis from dehydration and starvation ketosis. Admitted to the hospitalist service for further treatment and monitoring. Medical Records Medical records reviewed: Yes I reviewed the patient's medical records. Imaging Data Radiologic Study: Attestation: I personally reviewed and interpreted this imaging study as follows: Imaging: CT Scan (head) My impression: unremarkable Radiologic Study #2: Attestation: I personally reviewed and interpreted this imaging study as follows: Imaging: CT Scan (abd and pelvis) My impression: unremarkable Radiologic Study #3: Attestation: I personally reviewed and interpreted this imaging study as follows: Imaging: X-Ray Radiologist's impression: chest xray unremarkable Lab Data Lab results reviewed: Yes I reviewed the patient's lab results. Labs: Anion gap metabolic acidosis. Other labs grossly unremarkable ECG Data Attestation: I personally reviewed and interpreted this ECG (s) as follows: Prior ECG tracings: available for review Interpretation: Atrial fibrillation with normal rate. Normal intervals. No ST or T wave changes. Otherwise unremarkable EKG. HPI General Mode of arrival: EMS. Date/Time Provider Initiated Documentation: 03/05/23 10:41. Limitations to Documentation: no limitations. Information obtained by: patient and EMS. HPI Narrative: 77-year-old gentleman with history of GI bleeds, previous alcohol use disorder now in remission, COPD, CHF, A-fib not on anticoagulation, BPH, who is now presenting with shortness of breath and weakness. Worse over the last 4 to 5 days. Apparently has not been taking his medications for about the last month since his caregiver left his home. He lives on the second floor of an apartment and says he had not left it in over a year until 5 days ago when he had to go grocery shopping for the first time. He says after that he has been having dyspnea on exertion and weakness. No chest pain. Says he does have a little bit of sore throat. No nausea vomiting or abdominal pain. No fevers or chills. No leg pain, swelling, redness. No recent weight gain. Denies any other complaints. Related Data Home Medications Medication Instructions Recorded Confirmed nitroglycerin 0.4 mg sublingual 0.4 mg sublingual Q5M PRN 11/24/20 03/05/23 tablet colchicine 0.6 mg capsule 0.6 mg PO DAILY gout prevention 12/15/20 03/05/23 (Mitigare) #90 caps acetaminophen 325 mg tablet 650 mg PO Q4-5H 08/10/22 03/05/23 fluticasone fur. 100 mcg-umeclid 1 inh inhalation Q24H 08/10/22 03/05/23 62.5 mcg-vilant 25 mcg inhalat.powder (Trelegy Ellipta) atorvastatin 40 mg tablet 40 mg PO QHS #90 tabs 09/27/22 03/05/23 cholecalciferol (vitamin D3) 1,250 1,250 mcg PO QWEEK #56 caps 09/27/22 03/05/23 mcg (50,000 unit) capsule docusate sodium 100 mg capsule 100 mg PO BID PRN constipation 09/27/22 03/05/23 (Colace) #180 caps finasteride 5 mg tablet 5 mg PO DAILY #30 tabs 09/27/22 03/05/23 levalbuterol tartrate 45 1 puff inhalation Q4H #15 grams 09/27/22 03/05/23 mcg/actuation aerosol inhaler magnesium chloride 64 mg 64 mg PO BID #90 tabs 09/27/22 03/05/23 (magnesium chloride) tablet melatonin 3 mg tablet,extended 3 mg PO HS PRN Insomnia #90 tabs 09/27/22 03/05/23 release metoprolol succinate 100 mg 100 mg PO DAILY #90 tabs 09/27/22 03/05/23 tablet,extended release 24 hr pantoprazole 40 mg tablet,delayed 40 mg PO BID #180 tabs 09/27/22 03/05/23 release potassium chloride 10 mEq 10 meq PO DAILY #90 caps 09/27/22 03/05/23 capsule,extended release tamsulosin 0.4 mg capsule 0.8 mg PO DAILY #180 caps 09/27/22 03/05/23 torsemide 10 mg tablet 10 mg PO DAILY #90 tabs 09/27/22 03/05/23 Previous Rx's Medication Instructions Recorded colchicine 0.6 mg capsule 0.6 mg PO DAILY gout prevention 12/15/20 (Mitigare) #90 caps atorvastatin 40 mg tablet 40 mg PO QHS #90 tabs 09/27/22 cholecalciferol (vitamin D3) 1,250 1,250 mcg PO QWEEK #56 caps 09/27/22 mcg (50,000 unit) capsule docusate sodium 100 mg capsule 100 mg PO BID PRN constipation 09/27/22 (Colace) #180 caps finasteride 5 mg tablet 5 mg PO DAILY #30 tabs 09/27/22 levalbuterol tartrate 45 1 puff inhalation Q4H #15 grams 09/27/22 mcg/actuation aerosol inhaler magnesium chloride 64 mg 64 mg PO BID #90 tabs 09/27/22 (magnesium chloride) tablet melatonin 3 mg tablet,extended 3 mg PO HS PRN Insomnia #90 tabs 09/27/22 release metoprolol succinate 100 mg 100 mg PO DAILY #90 tabs 09/27/22 tablet,extended release 24 hr pantoprazole 40 mg tablet,delayed 40 mg PO BID #180 tabs 09/27/22 release potassium chloride 10 mEq 10 meq PO DAILY #90 caps 09/27/22 capsule,extended release tamsulosin 0.4 mg capsule 0.8 mg PO DAILY #180 caps 09/27/22 torsemide 10 mg tablet 10 mg PO DAILY #90 tabs 09/27/22 Allergies Allergy/AdvReac Type Severity Reaction Status Date / Time bupropion AdvReac Severe seizures Verified 09/27/22 09:56 General Stated Complaint: GenMedical JENNA: 3 Review of Systems Constitutional Constitutional: Denies chills, Denies fever(s), Denies headache(s) and Reports weakness Eyes Eyes: Denies change in vision ENT Ears, Nose, Mouth, and Throat: Denies headache(s), Denies odynophagia and Reports other (sore throat) Cardiovascular Cardiovascular: Denies chest pain and Reports dyspnea Respiratory Respiratory: Reports dyspnea Gastrointestinal Gastrointestinal: Denies abdominal pain, Denies diarrhea, Denies nausea, Denies odynophagia and Denies vomiting Genitourinary Genitourinary: Denies dysuria Musculoskeletal Musculoskeletal: Denies myalgias Integumentary/Breasts Skin/Breast: Denies changing lesions Neurologic Neurologic: Denies behavioral changes, Denies headache(s) and Reports weakness Psychiatric Psychiatric: Denies behavioral changes Endocrine Endocrine: Denies heat intolerance Hematologic/Lymphatic Hematologic/Lymphatic: Denies lymphadenopathy PFSH All Active Problems (Updated 03/05/23 @ 14:26 by Rose Wagoner NP) Discharge planning issues (Acute) Dehydration (Acute) DVT prophylaxis (Acute) Personal history of noncompliance with medical treatment and regimen (Acute) Alcoholic liver disease (Acute) Smoker (Acute) Anemia (Chronic) CHF (congestive heart failure) (Chronic) Acute upper gastrointestinal bleeding (Acute) Alcohol abuse (Chronic) Troponin level elevated (Acute) Gout (Chronic) Colchicine prevention Sleeping difficulty (Chronic) Melatonin RX Depression (Chronic) Plans on getting connected to social work Tineo's esophagus (Chronic ~04/2019) ETOH; Upper endoscopy 03/2019 (see path report--no tineo's?, but 08/15/2019 surg note says +tineo's) Weakness (Acute) LE weakness; Home PT Urinary retention (Chronic) Dr. Ramos Tobacco abuse disorder (Chronic) Cut down 1/2PPD COPD (chronic obstructive pulmonary disease) (Chronic) Atrial fibrillation (Chronic) Paroxysmal per hospital records; not anticoagulated secondary to recurrent GI bleeds from chronic EtOH use Alcohol use disorder (Chronic) Medical History Tineo's esophagus Depression Gastric ulcer GI bleed Hematemesis Insomnia Palliative care patient [place] Radicular pain of right lower extremity Renal insufficiency Right knee pain Smoking hx UTI (urinary tract infection) Surgical History H/O esophagogastroduodenoscopy (~04/2019) Repeat on 10/26/20 [facility] severe reflux esophagitis w/ non-bleeding esophageal ulcer. Multiplle inflammatory appearing nodules at [facility] Social History Smoking/Tobacco Use Status: Current every day Tobacco Type: cigarettes Years smoked: 50 Smoking risk assessment performed?: Yes Alcohol Intake: current Alcohol Intake frequency: other Alcohol type: hard liquor Drug use: Never Substance use type: does not use Details: Pt has not had alcohol since being at the [facility]. 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 Otherwise unremarkable pulmonary exam. No increased work of breathing. Cardio Rate: regular rate Rhythm: regular rhythm GI Inspection: normal to inspection Palpation: soft, no guarding, not rigid and nontender Back/Spine/Pelvis Back: No no CVA tenderness Thoracic/Lumbar Spine: thoracic and lumbar spine normal to inspection Skin General skin exam: no rashes or lesions noted Neuro General: patient alert, patient awake and patient oriented x3 Cranial Nerves: CN's II-XI intact bilaterally, PERRL and no nystagmus Cognition: normal cognition Motor: muscle tone normal throughout and strength 5/5 throughout Sensory Exam: no sensory deficits noted Extrem General: normal to inspection Course Vital Signs Vital signs: Vital Signs Temperature 36.7 C 03/05/23 10:40 Pulse 105 H 03/05/23 10:40 Respiratory Rate 22 03/05/23 10:40 Blood Pressure 160/109 H 03/05/23 10:40 Pulse Oximetry 98 03/05/23 10:40 Temperature 36.7 C 03/05/23 10:40 Temperature Source Oral 03/05/23 10:40 Pulse 105 H 03/05/23 10:40 Respiratory Rate 22 03/05/23 10:50 Respiratory Effort Normal, Non-Labored 03/05/23 10:50 Respiratory Depth Normal 03/05/23 10:50 Respiratory Pattern Normal 03/05/23 10:50 Blood Pressure 160/109 H 03/05/23 10:40 Blood Pressure Position Supine 03/05/23 10:40 Pulse Oximetry 98 03/05/23 10:40 Oxygen Delivery Method Room Air 03/05/23 10:40 Oxygen Flow Rate 0 03/05/23 10:40
[2023-03-05] MEDS: Normal Saline 1,000 ML 1000 ML IV (11:25)
[2023-03-05] MEDS: methylPREDNISolone SUCC 125 MG VIAL IVP (11:25)
[2023-03-05] MEDS: Albuterol/Ipratropium 3 ML UPD VIAL UPD (11:25)
[2023-03-05 11:28] LABS: Abs Immature Grans 0.07 10^3/uL (0.0-0.06); Absolute Basophil Count 0.05 10^3/uL (0.0-0.2); Absolute Eosinophil Count 0.12 10^3/uL (0.0-0.7); Absolute Lymphocyte Count 1.03 10^3/uL (1.2-3.4); Absolute Monocyte Count 0.56 10^3/uL (0.1-0.8); Absolute Neutrophil Count 5.46 10^3/uL (1.2-6.7); Basophils % 0.7; Eosinophils % 1.6; HCT 35.9 % (40.0-50.0); HGB 10.6 g/dL (13.5-17.5); Lymphocytes % 14.1; MCH 24.5 pg (27.0-33.0); MCHC 29.5 % (32.0-36.0); MCV 83 fL (80-95); MPV 9.5 fL (8.0-11.0); Monocytes % 7.7; Neutrophils % 74.9; Platelet Count 247 10^3/uL (130-400); RBC 4.32 10^6/uL (4.36-5.78); RDW 17.7 % (11.8-14.1); WBC 7.29 10^3/uL (4.4-10.8)
--- NOTE | 2023-03-05 11:38 | NUR.NOTE ---
Nursing Note: Pt states he has not taken his regular meds for several days d/t inability to obtain prescriptions from pharmacy.
[2023-03-05 11:51] LABS: ALT 22 U/L (16-63); AST 23 U/L (15-37); Albumin 3.8 g/dL (3.4-5.0); Alkaline Phosphatase 59 U/L (46-116); Anion Gap 21.5 mmol/L (3-11); BUN 43 mg/dL (7-18); Bilirubin, Total 1.2 mg/dL (0.2-1.0); CO2 18.5 mmol/L (21.0-32.0); CREATININE 2.3 mg/dL (0.70-1.30); Chloride 95 mmol/L (98-107); Estimated GFR 28.71 (mL/min/1.73m2); Glucose 81 mg/dL (74-106); Lipase 28 U/L (16-77); Magnesium 1.1 mg/dL (1.8-2.4); NT-proBNP 3444 pg/mL (<300); Sodium 135 mmol/L (136-145); Total Protein 7.6 g/dL (6.4-8.2); Troponin I < 50 ng/L (<or=60)
[2023-03-05 11:52] LABS: ETHANOL BLOOD < 3.0 mg/dL (<10)
[2023-03-05 12:50] LABS: BE (Venous) -12 mmol/L (-2-3); HCO3 (Venous) 14 mmol/L (23-28); O2 Sat (Venous) 83 %; TCO2 (Venous) 13 mmol/L (24-29); pCO2 (Venous) 26 mmHg (41-51); pH (Venous) 7.34 (7.31-7.41); pO2 (Venous) 51 mmHg
[2023-03-05 12:53] LABS: Lactate 1.5 mmol/L (0.6-1.4)
[2023-03-05] MEDS: Ondansetron 4 MG/2 ML VIAL IVP (12:55)
--- NOTE | 2023-03-05 13:08 | DI.CT_ITS ---
Exam(s) CT HEAD WO EXAM: CT HEAD WO CLINICAL HISTORY: altered mental status. TECHNIQUE: Imaging Protocol: Axial computed tomography images with coronal and sagittal reformatted images were created and reviewed COMPARISON: No exams were available for comparison FINDINGS: Ventricles and Extra axial spaces: Normal in size and morphology for the patient's age. Hemorrhage: None. Cerebral parenchyma: No acute territorial infarct. There are old lacunar infarcts present. There ar e areas of decreased attenuation in the white matter most consistent with small vessel ischemic disea se. Midline shift: None. Brainstem/Cerebellum: Normal. Calvarium: Normal. Visualized Paranasal sinuses/Mastoids: There is a mucous retention cyst or polyp in the right maxilla ry sinus. The remaining visualized paranasal sinuses and mastoid air cells are clear. Soft Tissues: Unremarkable. IMPRESSION: 1. No acute intracranial process. 2. Findings were discussed with the emergency department on 03/05/2023. RADIATION DOSE DELIVERED: 900.26mGy.cm Total DLP DATA REPOSITORY: All CT scans at this facility are submitted to the National Radiology Data Registry (NRDR) Dose Index Registry (DIR) with the [employer] (A[employer]). RADIATION OPTIMIZATION: All CT scans at this facility use at least one of these dose optimization te chniques: automated exposure control; mA and/or kV adjustment per patient size (includes targeted exa ms where dose is matched to clinical indication); or iterative reconstruction.
--- NOTE | 2023-03-05 13:08 | DI.CT_ITS ---
Exam(s) CT ABDOMEN PELVIS WO EXAM: CT ABDOMEN PELVIS WO CLINICAL HISTORY: Abdominal pain. ? small bowel obstruciton. TECHNIQUE: Imaging Protocol: Axial computed tomography images with coronal and sagittal reformatted images were created and reviewed. COMPARISON: No exams were available for comparison FINDINGS: ABDOMEN: Lung Bases: Coronary artery calcification is present. There is scarring in the lingula. Liver: Normal density. There is a 5 mm hypodense lesion in the liver. It is too small for further c haracterization on this noncontrast examination. Gallbladder and biliary tract: No radiodense calculus or biliary ductal dilation. Pancreas: Normal density, no abnormal calcifications or inflammatory process. Spleen: Normal. Kidneys: Normal size, contour and axis.No radiodense stones or obstructive uropathy. No masses seen. Adrenal glands: No mass is seen. Lymph nodes: Within normal limits. Abdominal Aorta: Abdominal portion non-dilated. Atherosclerosis. PELVIS: Bladder:Symmetric distention, no gross wall thickening. Bowel: There is diverticulosis of the colon, but no evidence of acute diverticulitis. No evidence of bowel obstruction or bowel wall thickening. There is no evidence of appendicitis. Peritoneal cavity: No ascites, collection or mesenteric inflammatory response. No free air. Reproductive organs: Unremarkable as visualized. Bones: Within normal limits. Soft Tissues: There is a small fat containing right inguinal hernia. IMPRESSION: 1. No evidence of bowel obstruction. 2. 5 mm hypodense lesion in the liver. This is nonspecific. It is indeterminate on this noncontrast examination but likely reflects a small cyst. Nonemergent CT or MRI of the liver should be consider ed for further evaluation. 3. Findings were discussed with Dr. Maite Henning at 1:32 p.m. on 03/05/2023. RADIATION DOSE DELIVERED: 748.21mGy.cm Total DLP DATA REPOSITORY: All CT scans at this facility are submitted to the National Radiology Data Registry (NRDR) Dose Index Registry (DIR) with the [employer] (ACR). RADIATION OPTIMIZATION: All CT scans at this facility use at least one of these dose optimization te chniques: automated exposure control; mA and/or kV adjustment per patient size (includes targeted exa ms where dose is matched to clinical indication); or iterative reconstruction.
[2023-03-05] MEDS: MAGNESIUM SULFATE 2 GM/50 ML BAG IVPB (13:20)
--- NOTE | 2023-03-05 14:11 | HPE_ITS ---
Date of service: 03/05/23 Time of Service: 14:12 Assessment and Plan Assessment and plan (1) Dehydration: Status: Resolved Assessment and plan: gentle IV hydration monitor I/O and monitor hydration status closely in setting of history of heart failure will place torsemide and potassium on hold for now, resume when appropriate antiemetics for symptoms (2) COPD (chronic obstructive pulmonary disease): Status: Suspected Assessment and plan: given updraft and steroids in ED, will continue updrafts and steroid burst continue trelegy. (3) Alcohol abuse: Status: Chronic Assessment and plan: history of alcohol use disorder, with previous consult with gymnastics coach. currently denies use to ED provider, blood alcohol level < 3.0 thiamine and monitor (4) GI bleed: Assessment and plan: history of is stable continue pantoprazole no chemical dvt prophylaxis Qualifiers: GI bleed type/associated pathology: gastritis Gastritis type: alcoholic Qualified Code(s): K29.21 - Alcoholic gastritis with bleeding (5) CHF (congestive heart failure): Status: Chronic Assessment and plan: He has a history of CHF with mildly reduced LVEF. BLE edema is unchanged, 2+, palp pulses, lungs are clear. SPO2 94% - Continue to monitor clinically February 2022 Conclusion Technically limited study Patient was in atrial fibrillation throughout, rate controlled Left ventricle is grossly normal in size and mildly reduced and systolic function.? Estimated ejection fraction is 45-50%.? There is global hypokinesis.? No segmental wall motion abnormalities were appreciated The atria were not well visualized Aortic valve is sclerotic without stenosis or regurgitation Within the limits of the study there was no additional structural or hemodynamically significant valvular disease Estimated right ventricular systolic pressure was 29 mmHg (6) Urinary retention: Status: Chronic Assessment and plan: continue Tamulosin and monitor for retention (7) Tobacco abuse disorder: Assessment and plan: replacement while inpatient. (8) Atrial fibrillation: Status: Chronic Assessment and plan: continue metoprolol but monitor blood pressure closely in setting of dehydration He is not anticoagulated because of alcoholism (9) DVT prophylaxis: Status: Deleted Assessment and plan: history of GI bleed, Just TEDS/SCDs (10) Alcoholic liver disease: Status: Acute Assessment and plan: no lesions on previous US, monitor LFTs avoid hepatotoxic drugs (11) Discharge planning issues: Status: Deleted Assessment and plan: PT consultation discussed with DR Arnold History of Present Illness History of Present Illness Chief Complaint: weakness Narrative: this is a 77 year old, well known to [facility], who presented to the ED for evaluation of shortness of breath and generalized weakness, work up in the ED most concerning for dehydration. he was given steroids and nebulizer also for concern of copd exacerbation. Hospitalist admission is requested Review of Systems All systems reviewed & are unremarkable except as noted in HPI and below PFSH All Active Problems (Updated 03/09/23 @ 00:02 by LAURA AYALA) Personal history of noncompliance with medical treatment and regimen (Acute) Alcoholic liver disease (Acute) Smoker (Acute) Anemia (Chronic) CHF (congestive heart failure) (Chronic) Acute upper gastrointestinal bleeding (Acute) Alcohol abuse (Chronic) Troponin level elevated (Acute) Gout (Chronic) Colchicine prevention Sleeping difficulty (Chronic) Melatonin RX Depression (Chronic) Plans on getting connected to social work Tineo's esophagus (Chronic ~04/2019) ETOH; Upper endoscopy 03/2019 (see path report--no tineo's?, but 08/15/2019 surg note says +tineo's) Weakness (Acute) LE weakness; Home PT Urinary retention (Chronic) Dr. Ramos COPD (chronic obstructive pulmonary disease) (Chronic) Atrial fibrillation (Chronic) Paroxysmal per hospital records; not anticoagulated secondary to recurrent GI bleeds from chronic EtOH use Alcohol use disorder (Chronic) Medical History Tineo's esophagus Depression Gastric ulcer GI bleed Hematemesis Insomnia Palliative care patient [place] Radicular pain of right lower extremity Renal insufficiency Right knee pain Smoking hx UTI (urinary tract infection) Surgical History H/O esophagogastroduodenoscopy (~04/2019) Repeat on 10/26/20 [facility] [place] severe reflux esophagitis w/ non-bleeding esophageal ulcer. Multiplle inflammatory appearing nodules at [facility] Social History Smoking/Tobacco Use Status: Current every day Tobacco Type: cigarettes Years smoked: 50 Smoking risk assessment performed?: Yes Alcohol Intake: current Alcohol Intake frequency: other Alcohol type: hard liquor Drug use: Never Substance use type: does not use Details: Pt has not had alcohol since being at the [facility]. Do you need help understanding health information?: Rarely current occupation: [employer] '64-68 (served as [employer]) What type of physical activity do you participate in: none Do you feel safe at home: Yes Do you feel safe in your relationship?: Yes Meds Allergies and Home Medications Allergies Allergy/AdvReac Type Severity Reaction Status Date / Time bupropion AdvReac Severe seizures Verified 09/27/22 09:56 Home Medications Medication Instructions Recorded Confirmed Type nitroglycerin 0.4 mg sublingual 0.4 mg sublingual Q5M PRN 11/24/20 03/05/23 History tablet colchicine 0.6 mg capsule 0.6 mg PO DAILY gout prevention 12/15/20 03/05/23 Rx (Mitigare) #90 caps acetaminophen 325 mg tablet 650 mg PO Q4-5H 08/10/22 03/05/23 History fluticasone fur. 100 mcg-umeclid 1 inh inhalation Q24H 08/10/22 03/05/23 History 62.5 mcg-vilant 25 mcg inhalat.powder (Trelegy Ellipta) atorvastatin 40 mg tablet 40 mg PO QHS #90 tabs 09/27/22 03/05/23 Rx cholecalciferol (vitamin D3) 1,250 1,250 mcg PO QWEEK #56 caps 09/27/22 03/05/23 Rx mcg (50,000 unit) capsule docusate sodium 100 mg capsule 100 mg PO BID PRN constipation 09/27/22 03/05/23 Rx (Colace) #180 caps finasteride 5 mg tablet 5 mg PO DAILY #30 tabs 09/27/22 03/05/23 Rx levalbuterol tartrate 45 1 puff inhalation Q4H #15 grams 09/27/22 03/05/23 Rx mcg/actuation aerosol inhaler magnesium chloride 64 mg 64 mg PO BID #90 tabs 09/27/22 03/05/23 Rx (magnesium chloride) tablet melatonin 3 mg tablet,extended 3 mg PO HS PRN Insomnia #90 tabs 09/27/22 03/05/23 Rx release metoprolol succinate 100 mg 100 mg PO DAILY #90 tabs 09/27/22 03/05/23 Rx tablet,extended release 24 hr pantoprazole 40 mg tablet,delayed 40 mg PO BID #180 tabs 09/27/22 03/05/23 Rx release potassium chloride 10 mEq 10 meq PO DAILY #90 caps 09/27/22 03/05/23 Rx capsule,extended release tamsulosin 0.4 mg capsule 0.8 mg PO DAILY #180 caps 09/27/22 03/05/23 Rx torsemide 10 mg tablet 10 mg PO DAILY #90 tabs 09/27/22 03/05/23 Rx gabapentin 300 mg capsule 300 mg PO BID 03/07/23 03/07/23 History prednisone 20 mg tablet 40 mg PO DAILY #3 tabs 03/08/23 Rx Exam Const General: cooperative Nutritional Appearance: average body habitus Orientation: alert, awake and oriented x3 HENMT Head: normal to inspection Ears: external ears normal Mouth: moist mucous membranes Eyes Pupils: PERRL EOM: EOM intact bilaterally and No nystagmus Neck Neck: full ROM and no tracheal deviation Chest Chest: normal inspection of the chest Resp Effort & Inspection: normal respiratory effort and able to speak in complete sentences Auscultation: clear to auscultation bilaterally Cardio Rate: regular rate Rhythm: regular rhythm GI Inspection: normal to inspection Palpation: soft, no guarding, not rigid and nontender Back/Spine/Pelvis Back: No no CVA tenderness Thoracic/Lumbar Spine: thoracic and lumbar spine normal to inspection Skin General skin exam: no rashes or lesions noted Neuro General: patient alert, patient awake and patient oriented x3 Cranial Nerves: CN's II-XI intact bilaterally, PERRL and no nystagmus Cognition: normal cognition Motor: muscle tone normal throughout and strength 5/5 throughout Sensory Exam: no sensory deficits noted Extrem General: normal to inspection Psych Mental Status: mental status grossly normal Speech and Movement: speech and movement normal Mood: congruent mood Affect: normal affect Results Labs 03/08/23 06:20 03/08/23 06:20 Labs: Laboratory Results - last 24 hr 03/05/23 03/05/23 03/05/23 11:17 11:17 11:17 WBC 7.29 RBC 4.32 L Hgb 10.6 L Hct 35.9 L MCV 83 MCH 24.5 L MCHC 29.5 L RDW 17.7 H Plt Count 247 MPV 9.5 Immature Gran % 1.0 Neutrophils % 74.9 Lymphocytes % 14.1 Monocytes % 7.7 Eosinophils % 1.6 Basophils % 0.7 Nucleated RBC % 0.0 Absolute Neutrophils 5.46 Absolute Lymphocytes 1.03 L Absolute Monocytes 0.56 Absolute Eosinophils 0.12 Absolute Basophils 0.05 VBG pH VBG pCO2 VBG pO2 VBG HCO3 VBG Total CO2 VBG O2 Saturation VBG Base Excess VBG Lactate Sodium 135 L Potassium 4.0 Chloride 95 L Carbon Dioxide 18.5 L Anion Gap 21.5 H BUN 43 H Creatinine 2.3 H Est GFR (CKD-EPI 2020) 28.71 Glucose 81 Calcium 9.0 Magnesium 1.1 L Total Bilirubin 1.2 H AST 23 ALT 22 Alkaline Phosphatase 59 Troponin I Cancelled < 50 NT-Pro-B Natriuret Pep Cancelled 3444 H Total Protein 7.6 Albumin 3.8 Lipase Cancelled 28 Ethyl Alcohol < 3.0 03/05/23 03/05/23 03/05/23 11:17 12:46 12:46 WBC RBC Hgb Hct MCV MCH MCHC RDW Plt Count MPV Immature Gran % Neutrophils % Lymphocytes % Monocytes % Eosinophils % Basophils % Nucleated RBC % Absolute Neutrophils Absolute Lymphocytes Absolute Monocytes Absolute Eosinophils Absolute Basophils VBG pH 7.34 VBG pCO2 26 L VBG pO2 51 VBG HCO3 14 L VBG Total CO2 13 L VBG O2 Saturation 83 VBG Base Excess -12 L VBG Lactate 1.5 H Sodium Potassium Chloride Carbon Dioxide Anion Gap BUN Creatinine Est GFR (CKD-EPI 2020) Glucose Calcium Magnesium Total Bilirubin AST ALT Alkaline Phosphatase Troponin I NT-Pro-B Natriuret Pep Total Protein Albumin Lipase Ethyl Alcohol Cancelled Last Vital Signs Temp 36.7 C 03/05/23 10:40 Pulse 105 H 03/05/23 10:40 Resp 22 03/05/23 10:50 BP 160/109 H 03/05/23 10:40 Pulse Ox 98 03/05/23 10:40 Time Spent Time spent with Patient: 40-54 minutes Time was spent: preparing to see the patient(eg.review tests), obtaining and/or reviewing separately otained hiistory, ordering medications,tests, procedures, referring, communicating with other health wound care physician, indepentently interpreting results and counseling the patient
[2023-03-05 14:49] LABS: Troponin I < 50 ng/L (<or=60)
[2023-03-05 15:09] LABS: Bilirubin Moderate (Negative); Blood Negative (Negative); Clarity Clear (Clear); Glucose Negative (Negative); Ketones 80 mg/dL (Negative); Leukocyte Esterase Trace (Negative); Nitrite Negative (Negative); Specific Gravity 1.025 (1.005-1.025); Urobilinogen 0.2 mg/dL (Up to 0.2)
[2023-03-05 15:37] LABS: Bacteria Rare HPF (Negative); Crystals Negative HPF (Negative); Epithelial Cells Negative HPF (Negative); Mucus Negative (Negative); Other Cells Few Renal (Negative); RBC Negative HPF (0-2)
[2023-03-05 15:38] LABS: C & S Indicated? C&S Done As Ordered
[2023-03-05] MEDS: Normal Saline 1,000 ML 75 ML IV (16:36)
--- NOTE | 2023-03-05 16:59 | PT.INNT ---
Date of service: 03/05/23 Time of Service: 16:59 PT Notes Visit Reasons: Dehydration Patient is adamant at needing sleep and does not want to eat nor do anything else. States that he has not slept for the past 35 hours. Not sure how he will do tomorrow but is agreeable for PT to check in with him.
[2023-03-05] MEDS: Acetaminophen 325 MG TAB 650 MG PO (19:30)
[2023-03-05] MEDS: Metoprolol 25 MG TAB PO (19:32)
[2023-03-05] MEDS: Magnesium Chloride 64 MG TABCR PO (19:32)
[2023-03-05] MEDS: Budesonide/Formoterol 80/4.5 6.9 GM 60 PUFF INH IH (19:32)
[2023-03-05] MEDS: Pantoprazole 40 MG TABCR PO (19:32)
[2023-03-05] MEDS: Ipratropium 0.5 MG/2.5 ML UPD VIAL 3 MG UPD (19:33)
[2023-03-05] MEDS: Levalbuterol 0.63 MG/3 ML UPD VIAL UPD (19:33)
[2023-03-06] VITALS (10 sets, daily range): BP systolic 101–122; BP diastolic 53–81; PULSE 66–96; RESP 16–20; TEMP 36–36.8; O2SAT 96–100
[2023-03-06] MEDS: Acetaminophen 325 MG TAB 650 MG PO ×3 (01:16→20:17)
[2023-03-06 07:04] LABS: Abs Immature Grans 0.02 10^3/uL (0.0-0.06); Absolute Lymphocyte Count 0.28 10^3/uL (1.2-3.4); Absolute Monocyte Count 0.09 10^3/uL (0.1-0.8); Absolute Neutrophil Count 2.94 10^3/uL (1.2-6.7); HCT 27.6 % (40.0-50.0); HGB 8.5 g/dL (13.5-17.5); Immature Grans % 0.6; Lymphocytes % 8.4; MCH 24.9 pg (27.0-33.0); MCHC 30.8 % (32.0-36.0); MCV 81 fL (80-95); MPV 9.9 fL (8.0-11.0); Monocytes % 2.7; Neutrophils % 88.3; Platelet Count 181 10^3/uL (130-400); RBC 3.42 10^6/uL (4.36-5.78); RDW 17.3 % (11.8-14.1); RDW-SD 50.5 fL; WBC 3.33 10^3/uL (4.4-10.8)
[2023-03-06 07:22] LABS: ALT 17 U/L (16-63); AST 15 U/L (15-37); Albumin 3.2 g/dL (3.4-5.0); Alkaline Phosphatase 47 U/L (46-116); Anion Gap 11.5 mmol/L (3-11); BUN 41 mg/dL (7-18); Bilirubin, Total 0.6 mg/dL (0.2-1.0); CO2 21.5 mmol/L (21.0-32.0); CREATININE 1.8 mg/dL (0.70-1.30); Calcium 7.8 mg/dL (8.5-10.1); Chloride 100 mmol/L (98-107); Estimated GFR 38.53 (mL/min/1.73m2); Glucose 218 mg/dL (74-106); Magnesium 1.1 mg/dL (1.8-2.4); Potassium 4.3 mmol/L (3.5-5.1); Sodium 133 mmol/L (136-145); Total Protein 6.3 g/dL (6.4-8.2)
[2023-03-06] MEDS: Finasteride 5 MG TAB PO (07:29)
[2023-03-06] MEDS: Pantoprazole 40 MG TABCR PO ×2 (07:29→20:09)
[2023-03-06] MEDS: Magnesium Chloride 64 MG TABCR PO (07:30)
[2023-03-06] MEDS: Metoprolol 25 MG TAB PO ×3 (07:30→20:09)
[2023-03-06] MEDS: Levalbuterol 0.63 MG/3 ML UPD VIAL UPD (07:31)
[2023-03-06] MEDS: predniSONE 20 MG TAB 40 MG PO (07:35)
[2023-03-06] MEDS: Tamsulosin 0.4 MG CAPCR PO (07:36)
[2023-03-06] MEDS: Thiamine 100 MG TAB PO (07:36)
[2023-03-06] MEDS: Magnesium Chloride 64 MG TABCR 128 MG PO ×2 (07:43→20:09)
[2023-03-06 07:45] LABS: Lab Add On Test DONE
[2023-03-06] MEDS: MAGNESIUM SULFATE 4 GM/100 ML BAG IVPB (07:54)
[2023-03-06 07:58] LABS: Iron 17 ug/dL (65-175); Total Iron Binding Capacity 391 ug/dL (250-450); Transferrin Sat 4 % (20-55)
[2023-03-06] MEDS: Tiotropium Bromide-Respimat 10 PUFF INH IH (08:04)
[2023-03-06] MEDS: Budesonide/Formoterol 80/4.5 6.9 GM 60 PUFF INH IH ×2 (08:08→19:07)
[2023-03-06 08:12] LABS: Hemoglobin A1C 4.8 % (<5.7)
[2023-03-06 08:32] LABS: Folate 5.2 ng/mL (8.6-20.0); Vitamin B12 465 pg/mL (193-986)
--- NOTE | 2023-03-06 09:49 | PT.INNT ---
PT Notes Visit Reasons: Dehydration Patient remains adamant about wanting to get sleep. States that he did notget the sleep he very much wanted last night and is still not up to doing anything. PT offered some strength testing in bed but patient wanted to hold off on that as well. He verbalized that he wants to see the hospitalist first before he does anything else. Will attempt a third PT evaluation this afternoon and let Cm know if there are any persistent compliance issues.
[2023-03-06 10:13] LABS: Source Nasal/Nares
[2023-03-06 10:55] LABS: COVID-19 PCR Negative (Negative)
--- NOTE | 2023-03-06 11:09 | W.PM.PROGNOT ---
Date of Service Date of service: 03/06/23 Time of Service: 10:00 Assessment and Plan Assessment and plan (1) Dehydration: Status: Acute Assessment and plan: gentle IV hydration monitor I/O and monitor hydration status closely in setting of history of heart failure Torsemide restarted Potassium on hold resume when appropriate antiemetics for symptoms (2) COPD (chronic obstructive pulmonary disease): Status: Suspected Assessment and plan: given updraft and steroids in ED, will continue updrafts - patient has refused scheduled nebs, changed to PRN continue steroid burst continue trelegy. 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 BLE edema is unchanged, 2+, palp pulses, lungs are clear. SPO2 94% - Continue to monitor clinically February 2022 Echo Conclusion Technically limited study Patient was in atrial fibrillation throughout, rate controlled Left ventricle is grossly normal in size and mildly reduced and systolic function.? Estimated ejection fraction is 45-50%.? There is global hypokinesis.? No segmental wall motion abnormalities were appreciated The atria were not well visualized Aortic valve is sclerotic without stenosis or regurgitation Within the limits of the study there was no additional structural or hemodynamically significant valvular disease Estimated right ventricular systolic pressure was 29 mmHg (6) Urinary retention: Status: Chronic Assessment and plan: continue Tamulosin and monitor for retention (7) Tobacco abuse disorder: Status: Chronic Assessment and plan: replacement while inpatient. (8) Atrial fibrillation: Status: Chronic Assessment and plan: continue metoprolol but monitor blood pressure closely in setting of dehydration He is not anticoagulated because of alcoholism (9) DVT prophylaxis: Status: Acute Assessment and plan: history of GI bleed, Just TEDS/SCDs (10) Alcoholic liver disease: Status: Acute Assessment and plan: no lesions on previous US, monitor LFTs avoid hepatotoxic drugs (11) Discharge planning issues: Status: Acute Assessment and plan: PT consultation - has declined PT secondary to feeling too tired. Will encourage PT, formerly [facility] sleep med discussed with Dr Arnold Subjective Subjective Patient reports: no new complaints, pain is less, bowel movement and afebrile; denies diarrhea, nausea or vomiting Interval history since last seen: Sitting in bed, semifowlers, conversant, pleasant Exam Const General: cooperative Nutritional Appearance: average body habitus Orientation: alert, awake and oriented x3 HENMT Head: normal to inspection Ears: external ears normal Mouth: moist mucous membranes Eyes Pupils: PERRL EOM: EOM intact bilaterally and No nystagmus Neck Neck: full ROM and no tracheal deviation Chest Chest: normal inspection of the chest Resp Effort & Inspection: normal respiratory effort and able to speak in complete sentences Auscultation: clear to auscultation bilaterally Cardio Rate: regular rate Rhythm: regular rhythm GI Inspection: normal to inspection Palpation: soft, no guarding, not rigid and nontender Back/Spine/Pelvis Back: No no CVA tenderness Thoracic/Lumbar Spine: thoracic and lumbar spine normal to inspection Skin General skin exam: no rashes or lesions noted Neuro General: patient alert, patient awake and patient oriented x3 Cranial Nerves: CN's II-XI intact bilaterally, PERRL and no nystagmus Cognition: normal cognition Motor: muscle tone normal throughout and strength 5/5 throughout Sensory Exam: no sensory deficits noted Extrem General: normal to inspection Objective Last Vital Signs Temp 36.5 C 03/06/23 08:08 Pulse 96 H 03/06/23 08:08 Resp 20 03/06/23 08:08 BP 119/81 03/06/23 08:08 Pulse Ox 100 03/06/23 08:08 Laboratory Results - last 24 hr 03/05/23 03/05/23 03/05/23 11:17 11:17 11:17 WBC 7.29 RBC 4.32 L Hgb 10.6 L Hct 35.9 L MCV 83 MCH 24.5 L MCHC 29.5 L RDW 17.7 H Plt Count 247 MPV 9.5 Immature Gran % 1.0 Neutrophils % 74.9 Band Neutrophils % Lymphocytes % 14.1 Atypical Lymphs % Monocytes % 7.7 Eosinophils % 1.6 Basophils % 0.7 Metamyelocytes % Myelocytes % Promyelocytes % Other Cells % Nucleated RBC % 0.0 Absolute Neutrophils 5.46 Absolute Lymphocytes 1.03 L Absolute Monocytes 0.56 Absolute Eosinophils 0.12 Absolute Basophils 0.05 RBC Morphology Polychromasia Hypochromasia Poikilocytosis Basophilic Stippling Anisocytosis Microcytosis Macrocytosis Spherocytes Tear Drop Cells Ovalocytes Stomatocytes [place] Bodies [place] Cells/Echinocytes Acanthocytes (Spur) Schistocytes VBG pH VBG pCO2 VBG pO2 VBG HCO3 VBG Total CO2 VBG O2 Saturation VBG Base Excess VBG Lactate Sodium 135 L Potassium 4.0 Chloride 95 L Carbon Dioxide 18.5 L Anion Gap 21.5 H BUN 43 H Creatinine 2.3 H Est GFR (CKD-EPI 2020) 28.71 Glucose 81 Hemoglobin A1c Calcium 9.0 Magnesium 1.1 L Iron TIBC Transferrin % Sat Total Bilirubin 1.2 H AST 23 ALT 22 Alkaline Phosphatase 59 Troponin I Cancelled < 50 NT-Pro-B Natriuret Pep Cancelled 3444 H Total Protein 7.6 Albumin 3.8 Lipase Cancelled 28 Vitamin B12 Folate Urine Color Urine Clarity Urine pH Ur Specific [place] Urine Protein Urine Ketones Urine Blood Urine Nitrite Urine Bilirubin Urine Urobilinogen Ur Leukocyte Esterase Urine RBC Urine WBC Ur Epithelial Cells Urine Crystals Urine Bacteria Urine Casts Urine Mucus Urine Other Ur Culture Indicated? Urine Glucose Ethyl Alcohol < 3.0 COVID-19 Source SARS-CoV-2 (PCR) Add-On Test Request 03/05/23 03/05/23 03/05/23 11:17 12:46 12:46 WBC RBC Hgb Hct MCV MCH MCHC RDW Plt Count MPV Immature Gran % Neutrophils % Band Neutrophils % Lymphocytes % Atypical Lymphs % Monocytes % Eosinophils % Basophils % Metamyelocytes % Myelocytes % Promyelocytes % Other Cells % Nucleated RBC % Absolute Neutrophils Absolute Lymphocytes Absolute Monocytes Absolute Eosinophils Absolute Basophils RBC Morphology Polychromasia Hypochromasia Poikilocytosis Basophilic Stippling Anisocytosis Microcytosis Macrocytosis Spherocytes Tear Drop Cells Ovalocytes Stomatocytes [place] Bodies Omid Cells/Echinocytes Acanthocytes (Spur) Schistocytes VBG pH 7.34 VBG pCO2 26 L VBG pO2 51 VBG HCO3 14 L VBG Total CO2 13 L VBG O2 Saturation 83 VBG Base Excess -12 L VBG Lactate 1.5 H Sodium Potassium Chloride Carbon Dioxide Anion Gap BUN Creatinine Est GFR (CKD-EPI 2020) Glucose Hemoglobin A1c Calcium Magnesium Iron TIBC Transferrin % Sat Total Bilirubin AST ALT Alkaline Phosphatase Troponin I NT-Pro-B Natriuret Pep Total Protein Albumin Lipase Vitamin B12 Folate Urine Color Urine Clarity Urine pH Ur Specific [place] Urine Protein Urine Ketones Urine Blood Urine Nitrite Urine Bilirubin Urine Urobilinogen Ur Leukocyte Esterase Urine RBC Urine WBC Ur Epithelial Cells Urine Crystals Urine Bacteria Urine Casts Urine Mucus Urine Other Ur Culture Indicated? Urine Glucose Ethyl Alcohol Cancelled COVID-19 Source SARS-CoV-2 (PCR) Add-On Test Request 03/05/23 03/05/23 03/06/23 14:18 14:56 06:35 WBC RBC Hgb Hct MCV MCH MCHC RDW Plt Count MPV Immature Gran % Neutrophils % Band Neutrophils % Lymphocytes % Atypical Lymphs % Monocytes % Eosinophils % Basophils % Metamyelocytes % Myelocytes % Promyelocytes % Other Cells % Nucleated RBC % Absolute Neutrophils Absolute Lymphocytes Absolute Monocytes Absolute Eosinophils Absolute Basophils RBC Morphology Polychromasia Hypochromasia Poikilocytosis Basophilic Stippling Anisocytosis Microcytosis Macrocytosis Spherocytes Tear Drop Cells Ovalocytes Stomatocytes [place] Bodies [place] Cells/Echinocytes Acanthocytes (Spur) Schistocytes VBG pH VBG pCO2 VBG pO2 VBG HCO3 VBG Total CO2 VBG O2 Saturation VBG Base Excess VBG Lactate Sodium 133 L Potassium 4.3 Chloride 100 Carbon Dioxide 21.5 Anion Gap 11.5 H BUN 41 H Creatinine 1.8 H Est GFR (CKD-EPI 2020) 38.53 Glucose 218 H Hemoglobin A1c Calcium 7.8 L Magnesium 1.1 L Iron TIBC Transferrin % Sat Total Bilirubin 0.6 AST 15 ALT 17 Alkaline Phosphatase 47 Troponin I < 50 NT-Pro-B Natriuret Pep Total Protein 6.3 L Albumin 3.2 L Lipase Vitamin B12 Folate Urine Color Yellow Urine Clarity Clear Urine pH 5.0 Ur Specific [place] 1.025 Urine Protein Negative Urine Ketones 80 H Urine Blood Negative Urine Nitrite Negative Urine Bilirubin Moderate H Urine Urobilinogen 0.2 Ur Leukocyte Esterase Trace H Urine RBC Negative Urine WBC 5-10 Ur Epithelial Cells Negative Urine Crystals Negative Urine Bacteria Rare Urine Casts Comment Urine Mucus Negative Urine Other Few Renal Ur Culture Indicated? C&S Done As Ordered Urine Glucose Negative Ethyl Alcohol COVID-19 Source SARS-CoV-2 (PCR) Add-On Test Request 0603/06/23 03/06/23 06:35 06:35 06:35 WBC 3.33 L RBC 3.42 L Hgb 8.5 L D Hct 27.6 L MCV 81 MCH 24.9 L MCHC 30.8 L RDW 17.3 H Plt Count 181 MPV 9.9 Immature Gran % 0.6 Neutrophils % 88.3 Band Neutrophils % Lymphocytes % 8.4 Atypical Lymphs % Monocytes % 2.7 Eosinophils % 0.0 Basophils % 0.0 Metamyelocytes % Myelocytes % Promyelocytes % Other Cells % Nucleated RBC % 0.0 Absolute Neutrophils 2.94 Absolute Lymphocytes 0.28 L Absolute Monocytes 0.09 L Absolute Eosinophils 0.00 Absolute Basophils 0.00 RBC Morphology Polychromasia Hypochromasia Poikilocytosis Basophilic Stippling Anisocytosis Microcytosis Macrocytosis Spherocytes Tear Drop Cells Ovalocytes Stomatocytes [place] Bodies [place] Cells/Echinocytes Acanthocytes (Spur) Schistocytes VBG pH VBG pCO2 VBG pO2 VBG HCO3 VBG Total CO2 VBG O2 Saturation VBG Base Excess VBG Lactate Sodium Potassium Chloride Carbon Dioxide Anion Gap BUN Creatinine Est GFR (CKD-EPI 2020) Glucose Hemoglobin A1c 4.8 Calcium Magnesium Iron TIBC Transferrin % Sat Total Bilirubin AST ALT Alkaline Phosphatase Troponin I NT-Pro-B Natriuret Pep Total Protein Albumin Lipase Vitamin B12 Folate Urine Color Urine Clarity Urine pH Ur Specific [place] Urine Protein Urine Ketones Urine Blood Urine Nitrite Urine Bilirubin Urine Urobilinogen Ur Leukocyte Esterase Urine RBC Urine WBC Ur Epithelial Cells Urine Crystals Urine Bacteria Urine Casts Urine Mucus Urine Other Ur Culture Indicated? Urine Glucose Ethyl Alcohol COVID-19 Source SARS-CoV-2 (PCR) Add-On Test Request DONE 03/06/23 03/06/23 03/06/23 06:35 06:35 07:35 WBC Cancelled RBC Cancelled Hgb Cancelled Hct Cancelled MCV Cancelled MCH Cancelled MCHC Cancelled RDW Cancelled Plt Count Cancelled MPV Cancelled Immature Gran % Cancelled Neutrophils % Cancelled Band Neutrophils % Cancelled Lymphocytes % Cancelled Atypical Lymphs % Cancelled Monocytes % Cancelled Eosinophils % Cancelled Basophils % Cancelled Metamyelocytes % Cancelled Myelocytes % Cancelled Promyelocytes % Cancelled Other Cells % Cancelled Nucleated RBC % Cancelled Absolute Neutrophils Cancelled Absolute Lymphocytes Cancelled Absolute Monocytes Cancelled Absolute Eosinophils Cancelled Absolute Basophils Cancelled RBC Morphology Cancelled Polychromasia Cancelled Hypochromasia Cancelled Poikilocytosis Cancelled Basophilic Stippling Cancelled Anisocytosis Cancelled Microcytosis Cancelled Macrocytosis Cancelled Spherocytes Cancelled Tear Drop Cells Cancelled Ovalocytes Cancelled Stomatocytes Cancelled [place] Bodies Cancelled Omid Cells/Echinocytes Cancelled Acanthocytes (Spur) Cancelled Schistocytes Cancelled VBG pH VBG pCO2 VBG pO2 VBG HCO3 VBG Total CO2 VBG O2 Saturation VBG Base Excess VBG Lactate Sodium Potassium Chloride Carbon Dioxide Anion Gap BUN Creatinine Est GFR (CKD-EPI 2020) Glucose Hemoglobin A1c Calcium Magnesium Iron 17 L TIBC 391 Transferrin % Sat 4 L Total Bilirubin AST ALT Alkaline Phosphatase Troponin I NT-Pro-B Natriuret Pep Total Protein Albumin Lipase Vitamin B12 465 Folate 5.2 L Urine Color Urine Clarity Urine pH Ur Specific [place] Urine Protein Urine Ketones Urine Blood Urine Nitrite Urine Bilirubin Urine Urobilinogen Ur Leukocyte Esterase Urine RBC Urine WBC Ur Epithelial Cells Urine Crystals Urine Bacteria Urine Casts Urine Mucus Urine Other Ur Culture Indicated? Urine Glucose Ethyl Alcohol COVID-19 Source SARS-CoV-2 (PCR) Add-On Test Request 03/06/23 10:10 WBC RBC Hgb Hct MCV MCH MCHC RDW Plt Count MPV Immature Gran % Neutrophils % Band Neutrophils % Lymphocytes % Atypical Lymphs % Monocytes % Eosinophils % Basophils % Metamyelocytes % Myelocytes % Promyelocytes % Other Cells % Nucleated RBC % Absolute Neutrophils Absolute Lymphocytes Absolute Monocytes Absolute Eosinophils Absolute Basophils RBC Morphology Polychromasia Hypochromasia Poikilocytosis Basophilic Stippling Anisocytosis Microcytosis Macrocytosis Spherocytes Tear Drop Cells Ovalocytes Stomatocytes [place] Bodies [place]mid Cells/Echinocytes Acanthocytes (Spur) Schistocytes VBG pH VBG pCO2 VBG pO2 VBG HCO3 VBG Total CO2 VBG O2 Saturation VBG Base Excess VBG Lactate Sodium Potassium Chloride Carbon Dioxide Anion Gap BUN Creatinine Est GFR (CKD-EPI 2020) Glucose Hemoglobin A1c Calcium Magnesium Iron TIBC Transferrin % Sat Total Bilirubin AST ALT Alkaline Phosphatase Troponin I NT-Pro-B Natriuret Pep Total Protein Albumin Lipase Vitamin B12 Folate Urine Color Urine Clarity Urine pH Ur Specific [place] Urine Protein Urine Ketones Urine Blood Urine Nitrite Urine Bilirubin Urine Urobilinogen Ur Leukocyte Esterase Urine RBC Urine WBC Ur Epithelial Cells Urine Crystals Urine Bacteria Urine Casts Urine Mucus Urine Other Ur Culture Indicated? Urine Glucose Ethyl Alcohol COVID-19 Source Nasal/Nares SARS-CoV-2 (PCR) Negative Add-On Test Request Time Spent with Patient Time Spent with Patient: 35-49 minutes Time was spent: preparing to see the patient(eg.review tests), ordering medications,tests, procedures, referring, communicating with other health doggy daycare activities director, indepentently interpreting results, counseling the patient and care coordination
[2023-03-06] MEDS: LORazepam 1 MG TAB PO (11:17)
--- NOTE | 2023-03-06 13:49 | PT.INNT ---
Date of service: 03/06/23 Time of Service: 13:49 PT Notes Visit Reasons: Dehydration Patient continues to decline PT evaluation as he states that he is not ready. Continues to report fatigue and terrible need for sleep. CONOR Hubbard and MAX Horton apprised.
--- NOTE | 2023-03-06 14:10 | INITIAL_ITS ---
Date of service: 03/06/23 Time of Service: 14:11 Care Management Initial Assmt Initial Assessment REASON FOR HOSPITALIZATION:: Dehydration PREVIOUS FUNCTIONAL STATUS/SOCIAL/FAMILY SUPPORTS:: Khoi resides in [facility], he shares that he has not been in contact with his sons and they can know he is here but he does not want visitors while at [facility]. CURRENT FUNCTIONAL STATUS:: Rufino is tired, and doesn't not feel like engaging with this greeting card writer, or PT. ADVANCE DIRECTIVES:: [facility] on file. Has patient been provided with info about the portal/API?: Yes Did the patient sign up for the portal?: No CODE STATUS:: Full Code INSURANCE COVERAGE / FINANCIAL ISSUES:: Medicare Medicaid CURRENT HOME/COMMUNITY SERVICES/EQUIPMENT:: [facility] PRIMARY CARE PHYSICIAN:: Desirae Panda POTENTIAL DISCHARGE NEEDS:: Evaluations by PT to inform discharge recommendations. PATIENT/FAMILY EDUCATION NEEDS:: Review discharge instructions, discuss Ask Me Three. ANTICIPATED BARRIERS TO DISCHARGE:: None identified. TRANSPORTATION:: Dependent on disposition. PLAN:: Rufino continues to be closely monitored and treated, anticipate PT consult when he is feeling better. CM continues to follow. PFSH All Active Problems (Updated 03/05/23 @ 14:26 by Rose Wagoner NP) Discharge planning issues (Acute) Dehydration (Acute) DVT prophylaxis (Acute) Personal history of noncompliance with medical treatment and regimen (Acute) Alcoholic liver disease (Acute) Smoker (Acute) Anemia (Chronic) CHF (congestive heart failure) (Chronic) Acute upper gastrointestinal bleeding (Acute) Alcohol abuse (Chronic) Troponin level elevated (Acute) Gout (Chronic) Colchicine prevention Sleeping difficulty (Chronic) Melatonin RX Depression (Chronic) Plans on getting connected to social work Tineo's esophagus (Chronic ~04/2019) ETOH; Upper endoscopy 03/2019 (see path report--no tineo's?, but 08/15/2019 surg note says +tineo's) Weakness (Acute) LE weakness; Home PT Urinary retention (Chronic) Dr. Ramos Tobacco abuse disorder (Chronic) Cut down 1/2PPD COPD (chronic obstructive pulmonary disease) (Chronic) Atrial fibrillation (Chronic) Paroxysmal per hospital records; not anticoagulated secondary to recurrent GI bleeds from chronic EtOH use Alcohol use disorder (Chronic) Medical History Tineo's esophagus Depression Gastric ulcer GI bleed Hematemesis Insomnia Palliative care patient Dobbertin Radicular pain of right lower extremity Renal insufficiency Right knee pain Smoking hx UTI (urinary tract infection) Surgical History H/O esophagogastroduodenoscopy (~04/2019) Repeat on 10/26/20 [facility] severe reflux esophagitis w/ non-bleeding esophageal ulcer. Multiplle inflammatory appearing nodules at [facility] Social History Smoking/Tobacco Use Status: Current every day Tobacco Type: cigarettes Years smoked: 50 Smoking risk assessment performed?: Yes Alcohol Intake: current Alcohol Intake frequency: other Alcohol type: hard liquor Drug use: Never Substance use type: does not use Details: Pt has not had alcohol since being at the [facility]. 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
--- NOTE | 2023-03-06 15:58 | SP_ITS ---
Date of service: 03/06/23 Time of Service: 15:59 Subjective Clinical (Bedside) Swallow Evaluation Speech Language Pathology Patient referred for Clinical Swallow Evaluation from Dr Arnold given edentulousness and Tineo's esophagus. Precautions: Fall, Standard, Full Code SUBJECTIVE: Patient received appearing somnolant, reluctant to participate in evaluation but willing to speak with clinician and take liquid trials. Able to communicate wants/needs effectively; able to demonstrate comprehension of recommendations for safe p.o. intake upon discharge once deemed medically stable.? Rufino denies any difficulties chewing or swallowing solid foods or difficulties with his dentures but later when offered a soft/bite sized diet he endorses that he would prefer this and it would be easier for him to eat those foods. He denies coughing with liquids, pharyngeal stasis, but endorses frequent regurgitation of food and drink during/after meals. He also endorses gas pain which can become quite debilitating after meals, but improves if he is able to belch. Today he had his first meal in the hospital which he states he had no problems swallowing. Currently on Regular solids and thin liquids. ? HPI: Pt is a 76 year old M who presented with weakness and SOB, admitted with GI bleed. Predisposing dysphagia risk factors: Tineo's esophagus Clinical signs of possible chronic dysphagia: n/a Precipitating dysphagia risk factors / triggering event: n/a ? IMPRESSIONS & PLAN: Examination was very limited this date due to patient's fatigue and reluctance. Suspect patient with esophageal dysphagia in setting of esophagitis and Tineo's esophagus given his reported symptoms and observed belching after thin liquids. While he denies difficulties with chewing, he does endorse a preference for soft/bite size diet thus I will recommend this. Unable to observe solid PO trials or perform oral-motor assessment this date due to patient refusal. MATCHING MACHINE OPERATOR provided reflux education and precautions as well as general safe swallow recommendations. Further MATCHING MACHINE OPERATOR services: MATCHING MACHINE OPERATOR to continue to follow for further assessment as needed/tolerated. Diet Texture Modification(s): IDDSI Level(s) SOLIDS 6-Soft & Bite-Sized Solids LIQUIDS 0-Thin Liquids Medication Intake: As tolerated. RISK MANAGEMENT: HOB upright as tolerated; fully upright for all PO intake. Sleep with HOB inclined Encourage physical mobility as tolerated. Oral hygiene BID/2x per day using friction with toothbrush on all oral structures as tolerated Level of Assistance/Supervision: Independent PO intake only when awake/alert? Strategies/Adaptations/Assistive Equipment: Reduce auditory and/or visual distractions when eating Small sips and bites when eating Slow rate of intake Small+frequent meals throughout day, Other Posture/Positioning Needs: Maintain upright position at least 60 minutes after meals Avoid meals/snacks 2-3 hours prior to reclining/sleeping Sleep with head of bed elevated to reduce likelihood of nocturnal reflux PFSH All Active Problems?(Updated 03/05/23 @ 14:26 by Rose Wagoner NP) Discharge planning issues (Acute) Dehydration (Acute) DVT prophylaxis (Acute) Personal history of noncompliance with medical treatment and regimen (Acute) Alcoholic liver disease (Acute) Smoker (Acute) Anemia (Chronic) CHF (congestive heart failure) (Chronic) Acute upper gastrointestinal bleeding (Acute) Alcohol abuse (Chronic) Troponin level elevated (Acute) Gout (Chronic) Colchicine preventionSleeping difficulty (Chronic) Melatonin RXDepression (Chronic) Plans on getting connected to social workBarrett's esophagus (Chronic ~04/2019) ETOH; Upper endoscopy 03/2019 (see path report--no tineo's?, but 08/15/2019 surg note says +tineo's)Weakness (Acute) LE weakness; Home PTUrinary retention (Chronic) Dr. Zapata abuse disorder (Chronic) Cut down 1/2PPDCOPD (chronic obstructive pulmonary disease) (Chronic) Atrial fibrillation (Chronic) Paroxysmal per hospital records; not anticoagulated secondary to recurrent GI bleeds from chronic EtOH useAlcohol use disorder (Chronic) Medical History? Tineo's esophagus Depression Gastric ulcer GI bleed Hematemesis Insomnia Palliative care patient DobbertinRadicular pain of right lower extremity Renal insufficiency Right knee pain Smoking hx UTI (urinary tract infection) Surgical History? H/O esophagogastroduodenoscopy (~04/2019) Repeat on 10/26/20 [facility] [place] severe reflux esophagitis w/ non-bleeding esophageal ulcer. Multiplle inflammatory appearing nodules at [facility] ? OBJECTIVE: Respiratory: room air, tolerates well Language: Grossly WFL Hearing: WFL for purposes of close conversation Mental Status: Alert and Oriented person, place, time, event Recall of current events intact Speech: WFL Oral Motor Exam: Patient refused to participate. No gross deficits evident in conversation. ? [place] Swallow Protocol Results ? PASS: Complete/uninterrupted without s/sx aspiration ? Food items tested: ?? IDDSI 0: Oral phase: WFL Pharyngeal phase: WFL Other: Belching, patient indicates lower chest discomfort Provided education to: Patient, Nursing Topics Addressed: anatomy/physiology of swallowing mechanism, overt s/sx to monitor for re: potential aspiration of food / liquids, recommendations for improved oral care, relationship between respiratory function changes and deglutition, Rationale for recommendations as outlined below Outcome: Verbalized/demonstrated understanding Goals: Patient will participate in additional swallow evaluation PRN. MATCHING MACHINE OPERATOR CPT Code: 18544 Clinical Swallowing Evaluation 20 minutes Coding Diagnoses CPT Codes EVALUATE SWALLOWING FUNCTION - [id number] ([id number])
[2023-03-06] MEDS: Zolpidem 5 MG TAB PO (21:06)
[2023-03-07] VITALS (7 sets, daily range): BP systolic 103–124; BP diastolic 59–82; PULSE 62–90; RESP 16–18; TEMP 36.3–36.6; O2SAT 97–98
[2023-03-07 06:43] LABS: Abs Immature Grans 0.08 10^3/uL (0.0-0.06); Absolute Lymphocyte Count 0.52 10^3/uL (1.2-3.4); Absolute Monocyte Count 0.49 10^3/uL (0.1-0.8); Absolute Neutrophil Count 5.63 10^3/uL (1.2-6.7); HCT 28.1 % (40.0-50.0); HGB 8.6 g/dL (13.5-17.5); Immature Grans % 1.2; Lymphocytes % 7.7; MCH 24.7 pg (27.0-33.0); MCHC 30.6 % (32.0-36.0); MCV 81 fL (80-95); MPV 9.9 fL (8.0-11.0); Monocytes % 7.3; Neutrophils % 83.8; Platelet Count 217 10^3/uL (130-400); RBC 3.48 10^6/uL (4.36-5.78); RDW 17.4 % (11.8-14.1); RDW-SD 51.4 fL; WBC 6.72 10^3/uL (4.4-10.8)
[2023-03-07 07:09] LABS: Anion Gap 10.1 mmol/L (3-11); BUN 43 mg/dL (7-18); CO2 23.9 mmol/L (21.0-32.0); CREATININE 1.7 mg/dL (0.70-1.30); Chloride 100 mmol/L (98-107); Estimated GFR 41.26 (mL/min/1.73m2); Glucose 157 mg/dL (74-106); Magnesium 2.2 mg/dL (1.8-2.4); Potassium 3.8 mmol/L (3.5-5.1); Sodium 134 mmol/L (136-145)
[2023-03-07] MEDS: predniSONE 20 MG TAB 40 MG PO (07:29)
[2023-03-07] MEDS: Tamsulosin 0.4 MG CAPCR PO (07:29)
[2023-03-07] MEDS: Thiamine 100 MG TAB PO (07:29)
[2023-03-07] MEDS: Metoprolol 25 MG TAB PO ×3 (07:29→21:01)
[2023-03-07] MEDS: Magnesium Chloride 64 MG TABCR 128 MG PO ×2 (07:29→21:01)
[2023-03-07] MEDS: Finasteride 5 MG TAB PO (07:29)
[2023-03-07] MEDS: Pantoprazole 40 MG TABCR PO ×2 (07:29→21:01)
[2023-03-07] MEDS: Torsemide 20 MG TAB 10 MG PO (07:35)
[2023-03-07] MEDS: Acetaminophen 325 MG TAB 650 MG PO ×2 (07:35→14:07)
[2023-03-07] MEDS: Budesonide/Formoterol 80/4.5 6.9 GM 60 PUFF INH IH ×2 (07:42→19:13)
[2023-03-07] MEDS: Tiotropium Bromide-Respimat 10 PUFF INH IH (07:42)
--- NOTE | 2023-03-07 13:24 | PHA.REVIEW2 ---
Pharmacy Admission Review - Admission Clinical Review (Last Reviewed 03/05/23 @ 11:10 by Geoff Henning MD) Discharge planning issues (Acute) Dehydration (Acute) DVT prophylaxis (Acute) Alcoholic liver disease (Acute) bupropion Adverse Reaction (Severe, Verified 09/27/22 09:56) seizures Resuscitation Status Full Code Height 5 ft 5 in Weight 78.653 kg - Renal Dosing Renal Dosing: BUN 43 mg/dL (7-18) H 03/07/23 06:05 Creatinine 1.7 mg/dL (0.70-1.30) H 03/07/23 06:05 Medications needing adjustments: Reviewed List of meds needing interventions: eCrCl 36 ml/min, current orderd ok - Anticoagulation Anticoagulation: Hgb 8.6 g/dL (13.5-17.5) L 03/07/23 06:05 Hct 28.1 % (40.0-50.0) L 03/07/23 06:05 Plt Count 217 10^3/uL (130-400) 03/07/23 06:05 Creatinine 1.7 mg/dL (0.70-1.30) H 03/07/23 06:05 DVT Prophylaxis: N/A (hx of GI bleeding d/t alcoholic gastritis, SCDs only) - Opiate Usage Evaluate Pain Scale/Pains Meds: N/A - Relevant Labs Sodium 134 mmol/L (136-145) L 03/07/23 06:05 Potassium 3.8 mmol/L (3.5-5.1) 03/07/23 06:05 Chloride 100 mmol/L (98-107) 03/07/23 06:05 Magnesium 2.2 mg/dL (1.8-2.4) 03/07/23 06:05 Electrolytes, C-Reactive P, ESR: Reviewed (PO magnesium ordered, repleted via IV previous 2 days) - DM Control DM Control: Glucose 157 mg/dL (74-106) H 03/07/23 06:05 Hemoglobin A1c 4.8 % (<5.7) 03/06/23 06:35 DM Control: N/A - Cardiac Review Cardiac Review: Troponin I < 50 ng/L (<or=60) 03/05/23 14:18 NT-Pro-B Natriuret Pep 3444 pg/mL (<300) H 03/05/23 11:17 NT-Pro-B Natriuret Pep Cancelled 03/05/23 11:17 BP, HR, EF%: Reviewed List meds needing interventions: eEF 45-50%, metoprolol tartrate TID (home dose = 100mg XL daily), torsemide 10mg daily (home dose) - Qtc Review QTc: Reviewed If Elevated, List meds needing intervention: QTc 472 on admission - IV to PO Switch IV Medications: Reviewed - Home Meds Home Med List reviewed: Reviewed Relevent Home Meds Not ordered & why?: not ordered: colchicine, gabapentin (may not be taking this, no recent fill hx) Medication adherence barriers identified?: no longer has a caregiver to provide medications, could benefit from mail order or delivery - Current meds Current Medication Order Review: Reviewed (metoprolol started at a lower dose as patient states he has not been able to take his medications for several days)
--- NOTE | 2023-03-07 15:53 | W.PM.PROGNOT ---
Date of Service Date of service: 03/07/23 Time of Service: 15:53 Objective Last Vital Signs Temp 36.3 C L 03/07/23 14:13 Pulse 82 03/07/23 15:38 Resp 18 03/07/23 14:13 BP 103/59 L 03/07/23 14:13 Pulse Ox 98 03/07/23 14:13 Laboratory Results - last 24 hr 03/07/23 03/07/23 06:05 06:05 WBC 6.72 RBC 3.48 L Hgb 8.6 L Hct 28.1 L MCV 81 MCH 24.7 L MCHC 30.6 L RDW 17.4 H Plt Count 217 MPV 9.9 Immature Gran % 1.2 Neutrophils % 83.8 Lymphocytes % 7.7 Monocytes % 7.3 Eosinophils % 0.0 Basophils % 0.0 Nucleated RBC % 0.0 Absolute Neutrophils 5.63 Absolute Lymphocytes 0.52 L Absolute Monocytes 0.49 Absolute Eosinophils 0.00 Absolute Basophils 0.00 Sodium 134 L Potassium 3.8 Chloride 100 Carbon Dioxide 23.9 Anion Gap 10.1 BUN 43 H Creatinine 1.7 H Est GFR (CKD-EPI 2020) 41.26 Glucose 157 H Calcium 8.0 L Magnesium 2.2
--- NOTE | 2023-03-07 16:20 | PTTR_ITS ---
PT Notes Visit Reasons: Dehydration PRECAUTIONS: Activity as tolerated, Fall SUBJECTIVE: Pt initially reluctant to participate with therapy, pt eventually agreed after a few minutes conversing with this PROCESS CONTROLLER. OBJECTIVE: ? PAIN: Patient c/o back pain after sitting up in recliner chair for breakfast TRANSFERS/BED MOBILITY: Supine-sit: I Sit-stand: SBA Stand-sit: SBA Bed-chair: SBA Chair-bed: SBA GAIT: Assistive device: FWW Weight bearing: Full Assist: SBA Distance: 120' Deviation: low step height and step length. ASSESSMENT: Pt initially concerned to show capability to ambulate due to concern of getting sent home. pt verbalized that he doesnt want to go home yet since he wouldn't have anybody in his home to help him with ADL's. PLAN: Continue with global strengthening and gait training for improved mobility and activity tolerance. TREATMENT CODE/TIME: 45 minutes; 58064 (02:55-3:27pm)
--- NOTE | 2023-03-07 16:30 | IN_ITS ---
Date of service: 03/07/23 Time of Service: 08:54 PT Notes Visit Reasons: Dehydration Inpatient Physical Therapy Initial Evaluation Date: 03/07/2023 Referring Doctor: Rose Wagoner NP PT Orders: Eval/Treat Precautions: Fall. Standard. Activity as tolerated. Patient Profile/Admitting Diagnosis: Khoi is a 77-year-old male smoker with past medical history significant for alcohol abuse, COPD who presented to the ED on 03/05/2023 with chief complaints of shortness of breath and generalized weakness. He is admitted for management of dehydration, COPD exacerbation, EtOH abuse, GI bleed, CHF, urinary retention, tobacco abuse, atrial fibrillation, and EtOH liver disease. PMHX: All Active Problems?(Updated 03/05/23 @ 14:26 by Rose Wagoner NP) Discharge planning issues (Acute) Dehydration (Acute) DVT prophylaxis (Acute) Personal history of noncompliance with medical treatment and regimen (Acute) Alcoholic liver disease (Acute) Smoker (Acute) Anemia (Chronic) CHF (congestive heart failure) (Chronic) Acute upper gastrointestinal bleeding (Acute) Alcohol abuse (Chronic) Troponin level elevated (Acute) Gout (Chronic) Colchicine preventionSleeping difficulty (Chronic) Melatonin RX Depression (Chronic) Plans on getting connected to social work Tineo's esophagus (Chronic ~04/2019) ETOH; Upper endoscopy 03/2019 (see path report--no tineo's?, but 08/15/2019 surg note says +tineo's)Weakness (Acute) LE weakness; Home PTUrinary retention (Chronic) Dr. Zapata abuse disorder (Chronic) Cut down 1/2PPD COPD (chronic obstructive pulmonary disease) (Chronic) Atrial fibrillation (Chronic) Paroxysmal per hospital records; not anticoagulated secondary to recurrent GI bleeds from chronic EtOH use Alcohol use disorder (Chronic) Medical History? Tineo's esophagus Depression Gastric ulcer GI bleed Hematemesis Insomnia Palliative care patient [place] Radicular pain of right lower extremity Renal insufficiency Right knee pain Smoking hx UTI (urinary tract infection) Surgical History? H/O esophagogastroduodenoscopy (~04/2019) [place] [facility] [place] w/ non-bleeding esophageal ulcer. Multiplle inflammatory appearing nodules at [facility] Social History/Home Situation: Patient lives alone in an apartment with 15 steps to get in with a rail on the right going up.?Independent with FWW for all mobility ADL performance.? Has a caregiver who comes in for 1-3 hours twice a week to do chores and laundry, however has stopped coming for some time now. He is otherwise able to prepare his own meals on other days.? Equipment Owned/DME: FWW, SPC SUBJECTIVE: Finally agreed to get out of bed today. Patient has been reluctant at moving and getting mobilized as he states that he has not had any sleep 35 hours prior to this most recent admission. Reports pain in his R leg and his back which have both been chronic symptoms. Wnats to know whether he can go out of the hospital to smoke. OBJECTIVE: General Observation: Resting in bed.? IV access in R UE.? Mental Status: A&O x4 Pain: Reports minimal pain in the R leg and back that somewhat limited ability to move today, Nurse Santos aware and managing ROM: Right Upper Extremity: ? Shoulder Flexion WFL. Shoulder abduction WFL. Elbow flexion WFL. Wrist flexion WFL. Functional opening and closing of hand WFL. Left Upper Extremity:? Shoulder Flexion WFL. Shoulder abduction WFL. Elbow flexion WFL. Wrist flexion WFL. Functional opening and closing of hand WFL. Right Lower Extremity: Hip flexion WFL. Hip abduction WFL. Knee flexion WFL. Ankle dorsiflexion to neutral only. Ankle plantarflexion WFL. Left Lower Extremity: Hip flexion WFL. Hip abduction WFL. Knee flexion WFL. Ankle dorsiflexion to neutral only. Ankle plantarflexion WFL. Strength: Right Upper Extremity: Shoulder flexors 4-/5. Shoulder abductors 4-/5. Elbow flexors 4-/5. Elbow extensors 4-/5. High School Foreign Language Tutor strong. Left Upper Extremity: Shoulder flexors 4-/5. Shoulder abductors 4-/5. Elbow flexors 4-/5. Elbow extensors 4-/5. [employer] Foreign Language Tutor strong. Right Lower Extremity: Hip flexors 4-/5. Hip abductors 4-/5. Knee flexors 4-/5. Knee extensors 4-/5. Ankle dorsiflexors 3-/5. Ankle plantarflexors 4-/5. Left Lower Extremity: Hip flexors 4-/5. Hip abductors 4-/5. Knee flexors 4-/5. Knee extensors 4-/5. Ankle dorsiflexors 3-/5. Ankle plantarflexors 4-/5. SENSATION: Intact as to pain and pressure in bilateral lower extremities BED MOBILITY/TRANSFERS: Supine to sit stand by assist with HOB at 30 degrees Sit to stand stand by assist with HOB at 30 degrees Stand to sit stand by assist with HOB at 30 degrees GAIT: 20 steps using FWW with contact guard assist with patient reporting fatigue and shortness of breath that slowly subsided with rest. BALANCE: Static sitting Normal Dynamic Sitting Good Static Standing Fair Dynamic Standing Fair Mobility Limitations Standardized Measure [facility] ? AM -PAC ? ?6 clicks? Basic Mobility Inpatient Short Form: Raw score: 20 ? CMS score: 36%? ? Informed Consent/Education:? Patient was instructed in purpose of PT consult and plan of care. Agreeable to proceed with established PT POC to achieve personal goals. ASSESSMENT: ? Khoi is a 77-year-old male smoker with past medical history significant for alcohol abuse, COPD who presented to the ED on 03/05/2023 with chief complaints of shortness of breath and generalized weakness. He is admitted for management of dehydration, COPD exacerbation, EtOH abuse, GI bleed, CHF, urinary retention, tobacco abuse, atrial fibrillation, and EtOH liver disease. Patient was advised that the hospitalist will be notified about his concern about being able to smoke as the hospital is a no smoking campus. Patient presents with clinical signs and symptoms consistent with current/admitting diagnoses that have resulted to mobility limitations, gait instability, generalized weakness, and impairment of motor control as demonstrated by the following impairment level findings: 1.? Decreased strength to B UE/LE major muscle groups 2.? Impaired sitting/standing balance 3.? Impaired activity tolerance 4. Pain in R LE and low back Impairments are contributing to the following functional limitations: 1.? Inability to safely ambulate without physical assistance 2.? Increase completion time for mobility ADL performance 3.? Increased fall risk 4.? Inability to negotiate steps alone safely Patient is assessed as a 11011 moderate complexity based on the following: History: Patient is a 75-year-old male with a past medical history, impairment level findings, and functional limitations as listed above Examination: Demonstrable impairment in strength, balance, and range of motion as tested above Presentation: Evolving Decision Makin moderate complexity Goals: Goals X1 week 1. Supine-Sit independent 2. Sit-Supine independent 3. Sit-Stand independent with FWW 4. Stand-Sit independent with FWW 5. Bed-Chair independent with FWW 6. Chair-Bed independent with FWW 7. Independent gait on level surface with use of FWW for at least 300 feet without report of pain nor dyspnea 8. Independent stair negotiation while holding onto bilateral rails for at least 10 steps without report of pain nor dyspnea 9. Independent with home exercise program 10. Good static and dynamic standing balance/tolerance Plan of Care/Treatment Plan: 1-2x/day, 7 days/week x 1 week. Plan of care has been reviewed with the [employer] SAW TENDER providing the service under Physical Therapy direction. Premdicate for pain due to chronic R leg and back pain. Initiate Physical Therapy intervention for pain management as needed, strengthening, bed mobility, transfers, gait, stairs, balance training, and use of assistive device. DISCHARGE RECOMMENDATIONS: PT vs SNF based on progress towards goals. TREATMENT CODE/TIME: 59747 x 20 minutes,? 29612 x 11 minutes beginning at 8:54 AM. Thank you for the opportunity to participate in the care of this patient. Franchesca Hawley PT, DPT, CLT [facility] [place], [place]
--- NOTE | 2023-03-07 17:22 | CMPROGNOTE_ITS ---
Date of service: 03/07/23 Time of Service: 17:22 Care Management Progress Note Progress Note Text Progress Note Text: S/O: Rufino was lying in bed and working with PT when CM met with him. He talked about his caregiver leaving and feeling sad that she was gone and confusion and regret at lack of closure with her departure. Rufino advocated for staying at [facility] through the weekend so he can strengthen before returning home and be able to walk into his apartment up the stairs. CM provided contact information for his heel caser, Zoya ([phone]). A: 77 year old male admitted to [facility] 03/05/23 for Dehydration P: Anticipate Rufino will return home when able to ascend fifteen stairs; as that is required to enter his apartment. He will follow up with his PCP and plan of care as prescribed. He will transport via private vehicle with [facility].
[2023-03-07] MEDS: Zolpidem 5 MG TAB PO (21:02)
[2023-03-08 03:40] VITALS: BP 104/68; PULSE 85; RESP 18; TEMP 36; O2SAT 97
[2023-03-08 06:42] LABS: Abs Immature Grans 0.12 10^3/uL (0.0-0.06); Absolute Basophil Count 0.01 10^3/uL (0.0-0.2); Absolute Eosinophil Count 0.01 10^3/uL (0.0-0.7); Absolute Lymphocyte Count 1.26 10^3/uL (1.2-3.4); Absolute Monocyte Count 0.64 10^3/uL (0.1-0.8); Absolute Neutrophil Count 4.36 10^3/uL (1.2-6.7); Basophils % 0.2; Eosinophils % 0.2; HCT 30.5 % (40.0-50.0); HGB 9.2 g/dL (13.5-17.5); Immature Grans % 1.9; Lymphocytes % 19.7; MCH 24.5 pg (27.0-33.0); MCHC 30.2 % (32.0-36.0); MCV 81 fL (80-95); MPV 10.7 fL (8.0-11.0); Nucleated RBC 0.3 % (0.0-0.3); Platelet Count 244 10^3/uL (130-400); RBC 3.76 10^6/uL (4.36-5.78); RDW 17.5 % (11.8-14.1); RDW-SD 51.8 fL
[2023-03-08 06:53] LABS: Anion Gap 12.2 mmol/L (3-11); BUN 64 mg/dL (7-18); CO2 23.8 mmol/L (21.0-32.0); CREATININE 2.1 mg/dL (0.70-1.30); Calcium 7.9 mg/dL (8.5-10.1); Chloride 100 mmol/L (98-107); Estimated GFR 32.02 (mL/min/1.73m2); Glucose 118 mg/dL (74-106); Magnesium 1.8 mg/dL (1.8-2.4); Potassium 3.8 mmol/L (3.5-5.1); Sodium 136 mmol/L (136-145)
[2023-03-08 07:05] VITALS: PULSE 82
[2023-03-08] MEDS: predniSONE 20 MG TAB 40 MG PO (07:50)
[2023-03-08] MEDS: Metoprolol 25 MG TAB PO ×2 (07:51→13:29)
[2023-03-08] MEDS: Finasteride 5 MG TAB PO (07:51)
[2023-03-08] MEDS: Torsemide 20 MG TAB 10 MG PO (07:51)
[2023-03-08] MEDS: Pantoprazole 40 MG TABCR PO (07:51)
[2023-03-08] MEDS: Thiamine 100 MG TAB PO (07:51)
[2023-03-08] MEDS: Tamsulosin 0.4 MG CAPCR PO (07:51)
[2023-03-08] MEDS: Magnesium Chloride 64 MG TABCR 128 MG PO (07:51)
[2023-03-08 08:00] VITALS: BP 104/68; BP 138/74; PULSE 82; RESP 18; TEMP 36.9; O2SAT 96; O2SAT 97
[2023-03-08] MEDS: Tiotropium Bromide-Respimat 10 PUFF INH IH (08:29)
[2023-03-08] MEDS: Budesonide/Formoterol 80/4.5 6.9 GM 60 PUFF INH IH (08:29)
--- NOTE | 2023-03-08 13:00 | PDOC.CMPRO ---
Date of service: 03/08/23 Time of Service: 13:00 Care Management Progress Note Progress Note Text Progress Note Text: S/O: Rufino was lying in bed when CM met with him. A: 77 year old male admitted to [facility] 03/05/23 for Dehydration P: Anticipate Rufino will return home when able to ascend fifteen stairs; as that is required to enter his apartment. He will follow up with his PCP and plan of care as prescribed. He will transport via private vehicle with [facility].
--- NOTE | 2023-03-08 14:58 | W.PM.DS.N ---
Date of service: 03/08/23 Time of Service: 14:58 DS: Diagnosis Discharge Diagnosis (1) Dehydration: Status: Acute (2) COPD (chronic obstructive pulmonary disease): Status: Suspected (3) Alcohol abuse: Status: Chronic (4) GI bleed: (5) CHF (congestive heart failure): Status: Chronic (6) Urinary retention: Status: Chronic (7) Tobacco abuse disorder: Status: Chronic (8) Atrial fibrillation: Status: Chronic (9) DVT prophylaxis: Status: Acute (10) Alcoholic liver disease: Status: Acute (11) Discharge planning issues: Status: Acute Discharge Plan Disposition Patient Disposition: Home W/Home Health Services Condition: Fair Discharge Details Reason For Visit: Dehydration Admit Date/Time: 03/05/23 14:09 Admit Provider: Ca Arnold Attending Provider: Ca Arnold Primary Care Provider: Desirae Panda Hospital Course Hospital Course: This is a 77 year old male patient, well known to [facility], with past medical history significant for smoking, alcohol abuse and COPD who presented to the ED for evaluation of shortness of breath and generalized weakness, work up in the ED most concerning for dehydration.? He was given steroids and nebulizer also for concern of COPD exacerbation, He was admitted to the medical floor for hydration and treatment of COPD.? He refused PT. He refused scheduled nebs.? He finally did participate with PT and progressed with ambulation.? Their recommendation is for him to go home with HH or SNF.? He refused SNF.? He is stable.? He will continue his home medications and continue the rest of Prednisone burst.? .? He is discharged stable to home with home health orders for Nursing, PT, OT, and OFFICE MANAGER. ?He should have a CMP, Mag and CBC done on Saturday03/12/2023 by nursing with results to PCP. ?He no longer has a roommate and had increased need of community resources. Discussed with Dr Hinton Home Meds and New Rx's Prescriptions: New prednisone 20 mg Tablet 40 mg PO DAILY Qty: 3 0RF Continued torsemide 10 mg tablet 10 mg PO DAILY Qty: 90 3RF magnesium chloride 64 mg magnesium tablet 64 mg PO BID Qty: 90 3RF Rx Instructions: Delayed release cholecalciferol (vitamin D3) 1,250 mcg (50,000 unit) capsule 1,250 mcg PO QWEEK Qty: 56 0RF docusate sodium [Colace] 100 mg capsule 100 mg PO BID PRN (Reason: constipation) Qty: 180 3RF Rx Instructions: Liquid filled capsules potassium chloride 10 mEq capsule, extended release 10 meq PO DAILY Qty: 90 3RF pantoprazole 40 mg tablet,delayed release (DR/EC) 40 mg PO BID Qty: 180 3RF Rx Instructions: GI bleed metoprolol succinate 100 mg tablet extended release 24 hr 100 mg PO DAILY Qty: 90 3RF melatonin 3 mg tablet extended release 3 mg PO HS PRN (Reason: Insomnia) Qty: 90 3RF Rx Instructions: Sleep difficulty tamsulosin 0.4 mg capsule 0.8 mg PO DAILY Qty: 180 3RF finasteride 5 mg tablet 5 mg PO DAILY Qty: 30 12RF atorvastatin 40 mg tablet 40 mg PO QHS Qty: 90 3RF levalbuterol tartrate 45 mcg/actuation HFA aerosol inhaler 1 puff INHALATION Q4H Qty: 15 3RF nitroglycerin 0.4 mg tablet, sublingual 0.4 mg sublingual Q5M PRN Rx Instructions: do not exceed 3 doses per episode colchicine [Mitigare] 0.6 mg capsule 0.6 mg PO DAILY Qty: 90 3RF Rx Instructions: Gout prevention gabapentin 300 mg capsule 300 mg PO BID Patient Comments: TAKE 1 CAPSULE BY MOUTH TWICE DAILY acetaminophen 325 mg Tablet 650 mg PO Q4-5H Trelegy Ellipta 100-62.5-25 mcg Blister With Device 1 inh INHALATION Q24H Discharge Instructions Instructions: Heart Failure (DC), Dehydration (DC), Nutrition Guidelines for People with COPD (DC) Additional Instructions: Home Health will call you to arrange a time to come to your home. Stand Alone Forms: Nursing Discharge Form Referrals: Desirae Panda NP [Primary Care Provider] - 03/15/23 2:30 pm (You appointment will be with Aleja Robins. ) Activity:: Activity as Tolerated Equipment/Supplies:: Walker Diet:: As Tolerated Discharge Orders Discharge Orders: Discharge Order (Routine); Ordered 03/08/23 Ordered By: Sol Hancock Other Ambulatory Orders: Complete Blood Count w/Diff (Routine) Timeframe: 20230312 Location: None Selected Ordered By: Sol Hnacock Comprehensive Metabolic Panel (Routine) Timeframe: 20230312 Location: None Selected Ordered By: Sol Hancock Magnesium (Routine) Timeframe: 20230312 Location: None Selected Ordered By: Sol Hancock Discharge Data Discharge Date/Time-TO BE ENTERED AT DEPARTURE: 03/08/23 15:57 DS: Summary Time Spent with Patient providing and/or coordinating discharge services: Greater than 30 minutes Status at Discharge Functional status at discharge: uses cane/walker Overall status at discharge: patient is progressing back to baseline Mental Status: mental status grossly normal Speech and Movement: speech and movement normal Mood: congruent mood Affect: normal affect Exam Const General: cooperative Nutritional Appearance: average body habitus Orientation: alert, awake and oriented x3 HENMT Head: normal to inspection Ears: external ears normal Mouth: moist mucous membranes Eyes Pupils: PERRL EOM: EOM intact bilaterally and No nystagmus Neck Neck: full ROM and no tracheal deviation Chest Chest: normal inspection of the chest Resp Effort & Inspection: normal respiratory effort and able to speak in complete sentences Auscultation: clear to auscultation bilaterally Cardio Rate: regular rate Rhythm: regular rhythm GI Inspection: normal to inspection Palpation: soft, no guarding, not rigid and nontender Back/Spine/Pelvis Back: No no CVA tenderness Thoracic/Lumbar Spine: thoracic and lumbar spine normal to inspection Skin General skin exam: no rashes or lesions noted Neuro General: patient alert, patient awake and patient oriented x3 Cranial Nerves: CN's II-XI intact bilaterally, PERRL and no nystagmus Cognition: normal cognition Motor: muscle tone normal throughout and strength 5/5 throughout Sensory Exam: no sensory deficits noted Extrem General: normal to inspection Psych Mental Status: mental status grossly normal Speech and Movement: speech and movement normal Mood: congruent mood Affect: normal affect DS: Data Vitals/I&O Vitals and I&O: Vital Signs Temperature 36.9 C 03/08/23 08:00 Temperature Source Tympanic 03/08/23 08:00 Pulse 82 03/08/23 08:00 Pulse Rhythm Regular 03/08/23 08:00 Pulse 102 H 03/05/23 12:40 Respiratory Rate 18 03/08/23 08:00 Respiratory Effort Normal, Non-Labored 03/08/23 08:00 Respiratory Depth Normal 03/08/23 08:00 Respiratory Pattern Normal 03/08/23 08:00 Blood Pressure 138/74 03/08/23 08:00 Blood Pressure Mean 94 03/05/23 11:00 Blood Pressure Position Supine 03/05/23 10:40 Pulse Oximetry 96 03/08/23 08:00 Oxygen Delivery Method Room Air 03/08/23 08:00 Oxygen Flow Rate 0 03/08/23 08:00 Pain Level 8 03/08/23 08:00 Comment pt refused vitals at this time 03/07/23 02:53 Intake & Output 03/07/23 03/08/23 03/08/23 23:59 11:59 23:59 Intake Total Output Total 325 / 325 1350 / 1800 450 / 1800 Balance -325 / 35 -1340 / -1790 -450 / -1790 Weight 77 kg Intake: IV Output: Urine 325 / 325 1350 / 1800 450 / 1800 Other: Urine Color Straw Pale Yellow Urine Appearance Clear Clear Clear Sediment Sediment Urine Odor Normal Normal Voiding Methods Urinal Urinal Urinal Data Completed and Pending Labs on day of discharge: Labs from last 24 hours 03/08/23 03/08/23 06:20 06:20 WBC 6.40 RBC 3.76 L Hgb 9.2 L Hct 30.5 L MCV 81 MCH 24.5 L MCHC 30.2 L RDW 17.5 H Plt Count 244 MPV 10.7 Immature Gran % 1.9 Neutrophils % 68.0 Lymphocytes % 19.7 Monocytes % 10.0 Eosinophils % 0.2 Basophils % 0.2 Nucleated RBC % 0.3 Absolute Neutrophils 4.36 Absolute Lymphocytes 1.26 Absolute Monocytes 0.64 Absolute Eosinophils 0.01 Absolute Basophils 0.01 Sodium 136 Potassium 3.8 Chloride 100 Carbon Dioxide 23.8 Anion Gap 12.2 H BUN 64 H Creatinine 2.1 H Est GFR (CKD-EPI 2020) 32.02 Glucose 118 H Calcium 7.9 L Magnesium 1.8 PFSH All Active Problems (Updated 03/05/23 @ 14:26 by Rose Wagoner NP) Discharge planning issues (Acute) Dehydration (Acute) DVT prophylaxis (Acute) Personal history of noncompliance with medical treatment and regimen (Acute) Alcoholic liver disease (Acute) Smoker (Acute) Anemia (Chronic) CHF (congestive heart failure) (Chronic) Acute upper gastrointestinal bleeding (Acute) Alcohol abuse (Chronic) Troponin level elevated (Acute) Gout (Chronic) Colchicine prevention Sleeping difficulty (Chronic) Melatonin RX Depression (Chronic) Plans on getting connected to social work Tineo's esophagus (Chronic ~04/2019) ETOH; Upper endoscopy 03/2019 (see path report--no tineo's?, but 08/15/2019 surg note says +tineo's) Weakness (Acute) LE weakness; Home PT Urinary retention (Chronic) Dr. Ramos Tobacco abuse disorder (Chronic) Cut down 1/2PPD COPD (chronic obstructive pulmonary disease) (Chronic) Atrial fibrillation (Chronic) Paroxysmal per hospital records; not anticoagulated secondary to recurrent GI bleeds from chronic EtOH use Alcohol use disorder (Chronic) Medical History Tineo's esophagus Depression Gastric ulcer GI bleed Hematemesis Insomnia Palliative care patient [place] Radicular pain of right lower extremity Renal insufficiency Right knee pain Smoking hx UTI (urinary tract infection) Surgical History H/O esophagogastroduodenoscopy (~04/2019) Repeat on 10/26/20 [facility] [place] severe reflux esophagitis w/ non-bleeding esophageal ulcer. Multiplle inflammatory appearing nodules at [facility] Social History Smoking/Tobacco Use Status: Current every day Tobacco Type: cigarettes Years smoked: 50 Smoking risk assessment performed?: Yes Alcohol Intake: current Alcohol Intake frequency: other Alcohol type: hard liquor Drug use: Never Substance use type: does not use Details: Pt has not had alcohol since being at the [facility]. 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
[2023-03-08 15:00] VITALS: PULSE 109
--- NOTE | 2023-03-08 15:50 | CMDISCH_ITS ---
Date of service: 03/08/23 Time of Service: 15:50 LACE Index Scoring Tool Questions: Length of Stay (in days): 3 Was the patient admitted via the E.D.?: Yes Comorbidities: Congestive Heart Failure and Chronic Pulmonary Disease E.D. Visits: 1 Answers: Total Score: 12 Risk of Readmission: High Risk Care Management Discharge Plan Reason for Hospitalization: Dehydration Discharge Plan: Khoi will be discharged home with new home health services for RN,PT,OT and TRUCK DRIVER RUBBISH COLLECTOR. He will follow up with his PCP and plan of care. Transport will be with [facility] with a lift assist coordinated by CM. Patient/Family Education Needs: Review discharge instructions, activity, limitations, follow up plan, discuss Ask Me Three.
--- NOTE | 2023-03-08 16:07 | PDOC.CMDIS ---
Date of service: 03/08/23 Time of Service: 16:08 Care Management Discharge Plan Reason for Hospitalization: Dehydration Discharge Plan: angelika will be discharged home with new home
--- NOTE | 2023-03-08 16:27 | PT.INTREAT ---
Date of service: 03/08/23 Time of Service: 10:10 PT Notes Visit Reasons: Dehydration Inpatient Physical Therapy Treatment Note [facility] Date: 03/08/23 PRECAUTIONS: Fall, standard, activity as tolerated SUBJECTIVE: Morning: patient supine in bed, agreeable to therapy. Afternoon: patient supine in bed, perseverating about discharge, not agreeable to walking but agreeable to seated exercises. OBJECTIVE: PAIN: none reported BED MOBILITY/TRANSFERS Rolling L/R: independent Supine-sit: independent Sit-supine: independent Sit-stand: independent Stand-sit: independent Bed-Chair: independent Chair-bed: independent GAIT Assistive Device: front wheeled walker Weight bearing: full Assist: standby Distance: 75 feet times 2 Deviation: reduced step height, reduced step length, stooped posture THEREX: seated LAQ's, marching, heel raises, toe raises, sit to stands. ASSESSMENT: Patient tolerates therapy well PLAN: Patient to discharge home with home health services. TREATMENT CODE/TIME: morning 67074 gait 27 minutes beginning at 10:10. afternoon 10010 Ther Ex 14 minutes beginning at 14:58
--- NOTE | 2023-03-08 18:07 | PDOC.HHF2F_ITS ---
Home Health Referral Home Health Orders Clinical synopsis of why skilled professionals are needed: COPD exacerbation, weakness Medical diagnosis necessitation home health referral: This is a 77 year old male patient, well known to [facility], with past medical history significant for smoking, alcohol abuse and COPD who presented to the ED for evaluation of shortness of breath and generalized weakness, work up in the ED most concerning for dehydration.? He was given steroids and nebulizer also for concern of COPD exacerbation, He was admitted to the medical floor for hydration and treatment of COPD.? He refused PT. He refused scheduled nebs.? He finally did participate with PT and progressed with ambulation.? Their recommendation is for him to go home with HH or SNF.? He refused SNF.? He is stable.? He will continue his home medications and continue the rest of Prednisone burst.? He is discharged stable to home with home health orders for Nursing, PT, OT, and FIELD AIDE.? He should have a CMP and CBC done on Saturday03/12/2023 by nursing with results to PCP. He no? longer has a roommate and had increased need of community resources. He is a full code. Registered Nurse: Check all that apply Instruct on new or changed medication(s)/assess compliance: Ordered Assess for exacerbation of medical condition, instruct patient/caregivers on signs and symptoms to report for early detection: Ordered Other: CBC w diff, CMP and Mag Saturday03/12/2023 - results to PCP Dehydration E86.0 Anemia D64.9 COPD J44.9 Weakness R53.1 Physical Therapist: Check all that apply Increase strength & endurance for safe mobility at home: Ordered To design/establish home maintenance program: Ordered Fall reduction therapy program for patient with history of frequent falls: Ordered Home safety evaluation and teaching/gait training including stair management (if applicable): Ordered Occupational Therapist: Evaluate and treat for patient unable to perform ADL/IADL/self-care: Ordered Upper extremity strengthening, range and motion: Ordered Caster Helper: Assist with community resources: Ordered Assist with long term care administrator care planning: Ordered Home Bound Status Requires the aid of supportive device (check all that apply): Walker Assistance of another person (Describe assistance and medical necessity): Requires assistance of another person outside of the home on uneven terrain Describe why leaving home would require a considerable and taxing effort: Requires frequent rest periods Encounter Date and Reason: I certify that a FTF encounter for this patient was performed on March 08, 2023 and that such encounter was related to the primary reason the patient requires home health services. The encounter was conducted in the following manner: * By me as the certifying physician, DATA INTEGRITY SPECIALIST, PA or * By an inpatient physician, DATA INTEGRITY SPECIALIST or PA during an inpatient stay who communicated findings to me, Certification And Authentication I certify that I composed the above information based on my clinical judgment relating to this patient's medical condition and, if applicable, clinical findings communicated to me by the NPP or inpatient physician who performed the FTF encounter. Name of Provider that will be monitoring home health services: Desirae Panda
--- NOTE | 2023-03-10 10:51 | W.PM.PROGNOT ---
Date of Service Date of service: 03/07/23 Time of Service: 12:00 Assessment and Plan Assessment and plan (1) Dehydration: Status: Resolved Assessment and plan: monitor I/O and monitor hydration status closely in setting of history of heart failure Torsemide restarted Potassium on hold resume when appropriate antiemetics for symptoms (2) COPD (chronic obstructive pulmonary disease): Status: Suspected Assessment and plan: continue updrafts - patient has refused scheduled nebs, changed to PRN continue steroid burst continue trelegy. (3) Alcohol abuse: Status: Chronic Assessment and plan: history of alcohol use disorder, with previous consult with recovery advocate. 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 BLE edema is unchanged, 2+, palp pulses, lungs are clear. SPO2 94% - Continue to monitor clinically February 2022 Echo Conclusion Technically limited study Patient was in atrial fibrillation throughout, rate controlled Left ventricle is grossly normal in size and mildly reduced and systolic function.? Estimated ejection fraction is 45-50%.? There is global hypokinesis.? No segmental wall motion abnormalities were appreciated The atria were not well visualized Aortic valve is sclerotic without stenosis or regurgitation Within the limits of the study there was no additional structural or hemodynamically significant valvular disease Estimated right ventricular systolic pressure was 29 mmHg (6) Urinary retention: Status: Chronic Assessment and plan: continue Tamulosin and monitor for retention (7) Tobacco abuse disorder: Assessment and plan: replacement while inpatient. Encouaged to quit tobacco - provide resources at discharge (8) Atrial fibrillation: Status: Chronic Assessment and plan: continue metoprolol but monitor blood pressure closely in setting of dehydration He is not anticoagulated because of alcoholism (9) DVT prophylaxis: Status: Deleted Assessment and plan: history of GI bleed, Just TEDS/SCDs (10) Alcoholic liver disease: Status: Acute Assessment and plan: no lesions on previous US, monitor LFTs avoid hepatotoxic drugs (11) Discharge planning issues: Status: Deleted Assessment and plan: PT consultation - has declined PT secondary to feeling too tired. Will encourage PT, formerly [facility], later [facility] sleep med discussed with Dr Hinton Subjective Subjective Patient reports: no new complaints, pain is less, tolerating liquids well, tolerating a regular diet, voiding w/o difficulty, bowel movement and afebrile; denies diarrhea, nausea, vomiting or shortness of breath Interval history since last seen: Improving, eating well, continues to refuse SNF, care mgrs discussing home resources; he wants to go home. Exam Const General: cooperative Nutritional Appearance: average body habitus Orientation: alert, awake and oriented x3 HENMT Head: normal to inspection Ears: external ears normal Mouth: moist mucous membranes Eyes Pupils: PERRL EOM: EOM intact bilaterally and No nystagmus Neck Neck: full ROM and no tracheal deviation Chest Chest: normal inspection of the chest Resp Effort & Inspection: normal respiratory effort and able to speak in complete sentences Auscultation: clear to auscultation bilaterally Cardio Rate: regular rate Rhythm: regular rhythm GI Inspection: normal to inspection Palpation: soft, no guarding, not rigid and nontender Back/Spine/Pelvis Back: No no CVA tenderness Thoracic/Lumbar Spine: thoracic and lumbar spine normal to inspection Skin General skin exam: no rashes or lesions noted Neuro General: patient alert, patient awake and patient oriented x3 Cranial Nerves: CN's II-XI intact bilaterally, PERRL and no nystagmus Cognition: normal cognition Motor: muscle tone normal throughout and strength 5/5 throughout Sensory Exam: no sensory deficits noted Extrem General: normal to inspection Psych Mental Status: mental status grossly normal Speech and Movement: speech and movement normal Mood: congruent mood Affect: normal affect Objective Last Vital Signs Temp 36.9 C 03/08/23 08:00 Pulse 109 H 03/08/23 15:00 Resp 18 03/08/23 08:00 BP 138/74 03/08/23 08:00 Pulse Ox 96 03/08/23 08:00 Time Spent with Patient Time Spent with Patient: 35-49 minutes Time was spent: preparing to see the patient(eg.review tests), ordering medications,tests, procedures, referring, communicating with other health transitional care manager, indepentently interpreting results and counseling the patient
--- NOTE | 2023-03-14 16:57 | PT.INDS ---
Date of service: 03/08/23 PT Notes Visit Reasons: Dehydration Physical Therapy Inpatient Discharge Summary Date: 03/08/2023 Dates of Service: 03/07/2023 through 03/08/2023 This is a clinical summary of care provided for the duration of dates listed above. No charge was made in the completion of this documentation. Referring Doctor: Rose Wagoner NP PT Orders: Eval/Treat Precautions: Fall.? Standard.? Activity as tolerated. Patient Profile/Admitting Diagnosis: Khoi is a 77-year-old male smoker with? past medical history significant for alcohol abuse, COPD who presented to the ED on 03/05/2023 with chief complaints of shortness of breath and generalized weakness.? He is admitted for management of dehydration, COPD exacerbation, EtOH abuse, GI bleed, CHF, urinary retention, tobacco abuse, atrial fibrillation, and EtOH liver disease. PMHX: All Active Problems?(Updated 03/05/23 @ 14:26 by Rose Wagoner NP) Discharge planning issues (Acute) Dehydration (Acute) DVT prophylaxis (Acute) Personal history of noncompliance with medical treatment and regimen (Acute) Alcoholic liver disease (Acute) Smoker (Acute) Anemia (Chronic) CHF (congestive heart failure) (Chronic) Acute upper gastrointestinal bleeding (Acute) Alcohol abuse (Chronic) Troponin level elevated (Acute) Gout (Chronic) Colchicine preventionSleeping difficulty (Chronic) Melatonin RX Depression (Chronic) Plans on getting connected to social work Tineo's esophagus (Chronic ~04/2019) ETOH; Upper endoscopy 03/2019 (see path report--no tineo's?, but 08/15/2019 surg note says +tineo's)Weakness (Acute) LE weakness; Home PTUrinary retention (Chronic) Dr. Zapaat abuse disorder (Chronic) Cut down 1/2PPD COPD (chronic obstructive pulmonary disease) (Chronic) Atrial fibrillation (Chronic) Paroxysmal per hospital records; not anticoagulated secondary to recurrent GI bleeds from chronic EtOH use Alcohol use disorder (Chronic) Medical History? Tineo's esophagus Depression Gastric ulcer GI bleed Hematemesis Insomnia Palliative care patient [place] Radicular pain of right lower extremity Renal insufficiency Right knee pain Smoking hx UTI (urinary tract infection) Surgical History? H/O esophagogastroduodenoscopy (~04/2019) Repeat on 10/26/20 [facility] severe reflux esophagitis w/ non-bleeding esophageal ulcer. Multiplle inflammatory appearing nodules at GEJ Social History/Home Situation: Patient lives alone in an apartment with 15 steps to get in with a rail on the right going up.?Independent with FWW for all mobility ADL performance.? Has a caregiver who comes in for 1-3 hours twice a week to do chores and laundry, however has stopped coming for some time now.? He is otherwise able to prepare his own meals on other days.? Equipment Owned/DME: FWW,? SPC SUBJECTIVE: NT. See most recent ALTERNATIVE ENERGY ENGINEER notes. OBJECTIVE: General Observation: NT. See most recent ALTERNATIVE ENERGY ENGINEER notes. Mental Status: NT. See most recent ALTERNATIVE ENERGY ENGINEER notes. Pain: NT. See most recent ALTERNATIVE ENERGY ENGINEER notes. ROM: Right Upper Extremity: ? Shoulder Flexion WFL. Shoulder abduction WFL. Elbow flexion WFL. Wrist flexion WFL. Functional opening and closing of hand WFL. Left Upper Extremity:? Shoulder Flexion WFL. Shoulder abduction WFL. Elbow flexion WFL. Wrist flexion WFL. Functional opening and closing of hand WFL. Right Lower Extremity: Hip flexion WFL. Hip abduction WFL. Knee flexion WFL. Ankle dorsiflexion to neutral only. Ankle plantarflexion WFL. Left Lower Extremity: Hip flexion WFL. Hip abduction WFL. Knee flexion WFL. Ankle dorsiflexion to neutral only. Ankle plantarflexion WFL. Strength: Right Upper Extremity: Shoulder flexors 4-/5. Shoulder abductors 4-/5. Elbow flexors 4-/5. Elbow extensors 4-/5. Decoration Checker strong. Left Upper Extremity: Shoulder flexors 4-/5. Shoulder abductors 4-/5. Elbow flexors 4-/5. Elbow extensors 4-/5. Decoration Checker strong. Right Lower Extremity: Hip flexors 4-/5. Hip abductors 4-/5. Knee flexors 4-/5. Knee extensors 4-/5. Ankle dorsiflexors 3-/5. Ankle plantarflexors 4-/5. Left Lower Extremity: Hip flexors 4-/5. Hip abductors 4-/5. Knee flexors 4-/5. Knee extensors 4-/5. Ankle dorsiflexors 3-/5. Ankle plantarflexors 4-/5. SENSATION: Intact as to pain and pressure in bilateral lower extremities OBJECTIVE: ? PAIN: none reported? BED MOBILITY/TRANSFERS? Rolling L/R: independent Supine-sit: independent ? Sit-supine: independent? Sit-stand: independent ? Stand-sit: independent? Bed-Chair: independent ? Chair-bed: independent ? GAIT? Assistive Device: front wheeled walker ? Weight bearing: full Assist: standby? Distance:? 75 feet times 2 ? Deviation: reduced step height, reduced step length, stooped posture ? BALANCE: Static sitting Normal Dynamic Sitting Good Static Standing Fair Dynamic Standing Fair ASSESSMENT: ? Khoi is a 77-year-old male smoker with? past medical history significant for alcohol abuse, COPD who presented to the ED on 03/05/2023 with chief complaints of shortness of breath and generalized weakness.? He is admitted for management of dehydration, COPD exacerbation, EtOH abuse, GI bleed, CHF, urinary retention, tobacco abuse, atrial fibrillation, and EtOH liver disease.? Patient was advised that the hospitalist will be notified about his concern about being able to smoke as the hospital is a no smoking campus. Patient presents with clinical signs and symptoms consistent with current/admitting diagnoses that have resulted to mobility limitations, gait instability, generalized weakness, and impairment of motor control as demonstrated by the following impairment level findings: 1.? Decreased strength to B UE/LE major muscle groups 2.? Impaired sitting/standing balance 3.? Impaired activity tolerance 4.? Pain in R LE and low back Impairments are contributing to the following functional limitations: 1.? Inability to safely ambulate without physical assistance 2.? Increase completion time for mobility ADL performance 3.? Increased fall risk 4.? Inability to negotiate steps alone safely Goals: Goals X1 week 1. Supine-Sit independent MET 2. Sit-Supine independent MET 3. Sit-Stand independent with FWW MET 4. Stand-Sit independent with FWW MET 5. Bed-Chair independent with FWW MET 6. Chair-Bed independent with FWW MET 7. Independent gait on level surface with use of FWW for at least 300 feet without report of pain nor dyspnea NOT MET 8. Independent stair negotiation while holding onto bilateral rails for at least 10 steps without report of pain nor dyspnea NOT MET 9. Independent with home exercise program NOT MET 10. Good static and dynamic standing balance/tolerance NOT MET DISCHARGE RECOMMENDATIONS: HH PT vs SNF based on progress towards goals. TREATMENT CODE/TIME: NC Thank you for the opportunity to participate in the care of this patient. Franchesca Hawley PT, DPT, CLT [facility] [place], [place]
== END 2023-03-08 15:57 | disposition home health service (06) | DRG 641 ==
LOC: ER 14:28 → MS 16:00
PROVIDERS: Nurse Practitioner Acute Care; Nurse Practitioner Family; Admitting Provider Internal Medicine; Emergency Provider Student in an Organized Health Care Education/Training Program; PCP Nurse Practitioner Adult Health; Visit Provider Internal Medicine
DX: E86.0 Dehydration (principal); J44.1 Chronic obstructive pulmonary disease with (acute) exacerbation; F10.10 Alcohol abuse, uncomplicated; F32.A Depression, unspecified; I50.9 Heart failure, unspecified; I48.0 Paroxysmal atrial fibrillation; R33.9 Retention of urine, unspecified; F17.210 Nicotine dependence, cigarettes, uncomplicated; R53.1 Weakness; Z91.148 Patient's other noncompliance with medication regimen for other reason; K70.9 Alcoholic liver disease, unspecified; R74.8 Abnormal levels of other serum enzymes; M10.9 Gout, unspecified; K22.70 Barrett's esophagus without dysplasia; Z87.11 Personal history of peptic ulcer disease; I35.8 Other nonrheumatic aortic valve disorders
CPT/HCPCS: 36415; 80048; 80053; 82805; 83690; 87635; 92610; 93005; 94640; 97110; 97116; 97162; 97530; 70450; 71045; 74176; 80320; 81003; 81015; 82607; 82746; 83036; 83540; 83550; 83605; 83735; 83880; 84484; 85025; 87086; 93010; 94664; 94667; 94668; 99232; 99239; J2405; J2930; J3475; J7512; J7614; J7620; J7644

== ENCOUNTER 2023-03-12 12:40 | Outpatient (REF) | payer MEDICARE, MEDICAID, SELFPAY ==
[2023-03-12 12:36] LABS: Abs Immature Grans 0.16 10^3/uL (0.0-0.06); Absolute Basophil Count 0.05 10^3/uL (0.0-0.2); Absolute Eosinophil Count 0.19 10^3/uL (0.0-0.7); Absolute Lymphocyte Count 1.49 10^3/uL (1.2-3.4); Absolute Monocyte Count 1.04 10^3/uL (0.1-0.8); Basophils % 0.7; Eosinophils % 2.8; HCT 30.4 % (40.0-50.0); HGB 9.4 g/dL (13.5-17.5); Immature Grans % 2.3; Lymphocytes % 21.8; MCH 24.7 pg (27.0-33.0); MCHC 30.9 % (32.0-36.0); MCV 80 fL (80-95); MPV 10.3 fL (8.0-11.0); Monocytes % 15.2; Neutrophils % 57.2; Platelet Count 351 10^3/uL (130-400); RBC 3.81 10^6/uL (4.36-5.78); RDW 18.4 % (11.8-14.1); RDW-SD 53.3 fL; WBC 6.83 10^3/uL (4.4-10.8)
[2023-03-12 12:55] LABS: ALT 101 U/L (16-63); AST 55 U/L (15-37); Albumin 3.8 g/dL (3.4-5.0); Alkaline Phosphatase 62 U/L (46-116); Anion Gap 12.1 mmol/L (3-11); BUN 37 mg/dL (7-18); Bilirubin, Total 0.9 mg/dL (0.2-1.0); CO2 24.9 mmol/L (21.0-32.0); CREATININE 1.6 mg/dL (0.70-1.30); Calcium 7.8 mg/dL (8.5-10.1); Chloride 101 mmol/L (98-107); Estimated GFR 44.38 (mL/min/1.73m2); Glucose 112 mg/dL (74-106); Magnesium 1.4 mg/dL (1.8-2.4); Potassium 4.1 mmol/L (3.5-5.1); Sodium 138 mmol/L (136-145); Total Protein 6.8 g/dL (6.4-8.2)
== END 2023-03-12 12:41 | disposition home or self-care (01) ==
LOC: LBN 12:40
PROVIDERS: PCP Nurse Practitioner Adult Health; Visit Provider Nurse Practitioner Adult Health
DX: I50.32 Chronic diastolic (congestive) heart failure (principal); K92.2 Gastrointestinal hemorrhage, unspecified; F10.10 Alcohol abuse, uncomplicated; E86.0 Dehydration; J44.0 Chronic obstructive pulmonary disease with (acute) lower respiratory infection
CPT/HCPCS: 80053; 83735; 85025

== ENCOUNTER 2023-04-23 01:45 | Emergency (ER) | payer MEDICARE, MEDICAID, SELFPAY ==
[2023-04-23 01:44] VITALS: BP 215/115; PULSE 120; RESP 16; O2SAT 100
[2023-04-23] MEDS: diphenhydrAMINE 25 MG CAP PO (02:36)
[2023-04-23] MEDS: Dexamethasone 4 MG TAB 12 MG PO (02:36)
[2023-04-23] MEDS: Fluorescein STRIPS 100/BOX 1 MG OP (02:36)
[2023-04-23] MEDS: Tetracaine 0.5% 4 ML BTL OP (02:37)
[2023-04-23] MEDS: Loratidine 10 MG TAB PO (02:37)
[2023-04-23 03:23] VITALS: BP 175/105; PULSE 110; RESP 16; O2SAT 99
--- NOTE | 2023-04-23 04:35 | ED.GENADUL_ITS ---
Discharge Plan Disposition Patient Disposition: Home Condition: Good Discharge Details Clinical Impression: Contact dermatitis of face, Acute allergic conjunctivitis Primary Care Provider: Desirae Panda ED Provider: Santi Dangelo Home Meds and New Rx's Prescriptions: Continued atorvastatin 40 mg tablet 40 mg PO QHS Qty: 90 3RF Trelegy Ellipta 100-62.5-25 mcg blister with device 1 inh INHALATION Q24H Qty: 60 6RF Rx Instructions: 04/18/23: PLEASE MAIL DELIVER (PT UNABLE TO ASSET AVAILABILITY LEADER) levalbuterol tartrate 45 mcg/actuation HFA aerosol inhaler 1 - 2 puff INHALATION Q4H Qty: 15 3RF Rx Instructions: RESCUE INHALER 03/2023: PLEASE DELIVER (PT CANNOT ASSET AVAILABILITY LEADER) magnesium chloride 64 mg magnesium tablet 64 mg PO DAILY AM Qty: 90 3RF Rx Instructions: LOW MAGNESIUM pantoprazole 40 mg tablet,delayed release (DR/EC) 40 mg PO DAILY AM Qty: 90 3RF Rx Instructions: GI bleed tamsulosin 0.4 mg capsule 0.8 mg PO DAILY Qty: 180 3RF Rx Instructions: BPH/help urinate prednisone 20 mg tablet 40 mg PO DAILY AM Qty: 12 0RF Rx Instructions: Take 2 tabs daily in morning to help you breathe (COPD exacerbation) (03/2023: PLEASE DELIVER MEDICATION) nitroglycerin 0.4 mg tablet, sublingual 0.4 mg sublingual Q5M PRN Rx Instructions: do not exceed 3 doses per episode loratadine 10 mg tablet 10 mg PO DAILY Qty: 90 3RF Rx Instructions: COPD, allergies, itchy nose & eyes, nasal drip Discharge Instructions Instructions: Dermatitis (ED), Conjunctivitis (ED) Additional Instructions: At this time you have an irritation on the skin of your face. This is secondary to continued application rubbing with the cool compresses. Please avoid touching your face for the next 2 to 3 days to allow the skin to heal. You are given a steroid which should help settle this down. Please continue to take Benadryl 25 mg every 6 hours and loratadine 10 mg every 24 hours. Please continue to use the antiallergy eyedrops that you have. Apply 2 to 3 drops per eye every 6-8 hours. If you notice any worsening of your symptoms, or any new symptoms such as vomiting, diarrhea, fever, chills, shortness of breath, chest pain, numbness, weakness, or fainting , please return immediately to the emergency department for reevaluation. Please follow up with your primary care provider as soon as possible for reassessment and reevaluation. As always, it was a pleasure participating in your medical care today. Referrals: Desirae Panda [employer]FFIC LIEUTENANT [Primary Care Provider] - Medical Decision Making 77-year-old male with a past medical history of alcoholic liver disease, congestive heart failure, Tineo's esophagus, COPD, atrial fibrillation, presents today for facial and eye pain. Patient states that for the last 4 days his eyes have been itchy. He has been using antiallergy drops on his eyes. This has been slightly helping his eyes, however in addition to this he has been applying cold compresses to his face. He has been doing this multiple times throughout the day with an abrasive washcloth. This is caused irritation of the skin and now has burning sensation on his facial skin around his eyes. Pain is made worse with touching it. Eyes feel mildly itchy. He denies any significant eyeball pain though. He admits to slight blurry vision, but this improves with his glasses. He presents via EMS. No other complaints at this time. Physical exam demonstrates normal intraocular pressures bilaterally. Reactive pupils. Minimal corneal cobblestoning likely secondary to allergic conjunctivitis. No corneal abrasions. Mild redness over the skin of the eyelids, forehead, and inferior orbital area, but no edema whatsoever. Symptoms appear inconsistent with cellulitis, pre or postseptal cellulitis, no current clinical evidence of staph scalded skin syndrome, erythema multiforme, erythema migrans, toxic epidermal necrolysis, Jara-Martin syndrome, Kawasaki-like rash, meningococcemia, pemphigus vulgaris, or necrotizing fasciitis. Rather, symptoms appear consistent with a contact dermatitis secondary to repeat abrasive forces to the face secondary to multiple cold compresses with rubbing with an abrasive washcloth. Recommend avoidance of this. We will give Decadron to help with the inflammatory component, we will give loratadine and Benadryl for continued home use. Recommend avoidance of abrasive substances. Recommend continued use of antiallergy eyedrops. Discussed red flags for which to return. I have extensively reviewed the treatment plan and discharge instructions with the patient. I have addressed all patient concerns at this time. The patient was made aware of what symptoms to monitor for that would warrant a return to the emergency department. Discussed the plan with the patient, they demonstrate verbal understanding and agreement with our assessment and plan at this time. The documentation in this chart was dictated using [employer] dictation software. Please excuse any dictation errors. HPI General Date/Time Provider Initiated Documentation: 04/23/23 01:59 . HPI Narrative: 77-year-old male with a past medical history of alcoholic liver disease, congestive heart failure, Tineo's esophagus, COPD, atrial fibrillation, presents today for facial and eye pain. Patient states that for the last 4 days his eyes have been itchy. He has been using antiallergy drops on his eyes. This has been slightly helping his eyes, however in addition to this he has been applying cold compresses to his face. He has been doing this multiple times throughout the day with an abrasive washcloth. This is caused irritation of the skin and now has burning sensation on his facial skin around his eyes. Pain is made worse with touching it. Eyes feel mildly itchy. He denies any significant eyeball pain though. He admits to slight blurry vision, but this improves with his glasses. He presents via EMS. No other complaints at this time. Related Data Home Medications Medication Instructions Recorded Confirmed nitroglycerin 0.4 mg sublingual 0.4 mg sublingual Q5M PRN 11/24/20 04/18/23 tablet atorvastatin 40 mg tablet 40 mg PO QHS #90 tabs 09/27/22 04/18/23 fluticasone fur. 100 mcg-umeclid 1 inh inhalation Q24H #60 ea 04/18/23 04/18/23 62.5 mcg-vilant 25 mcg inhalat.powder (Trelegy Ellipta) levalbuterol tartrate 45 1 - 2 puff inhalation Q4H #15 grams 04/18/23 04/18/23 mcg/actuation aerosol inhaler magnesium chloride 64 mg 64 mg PO DAILY AM #90 tabs 04/18/23 04/18/23 (magnesium chloride) tablet pantoprazole 40 mg tablet,delayed 40 mg PO DAILY AM #90 tabs 04/18/23 04/18/23 release prednisone 20 mg tablet 40 mg PO DAILY AM #12 tabs 04/18/23 04/18/23 tamsulosin 0.4 mg capsule 0.8 mg PO DAILY #180 caps 04/18/23 04/18/23 loratadine 10 mg tablet 10 mg PO DAILY #90 tabs 04/22/23 Previous Rx's Medication Instructions Recorded atorvastatin 40 mg tablet 40 mg PO QHS #90 tabs 09/27/22 fluticasone fur. 100 mcg-umeclid 1 inh inhalation Q24H #60 ea 04/18/23 62.5 mcg-vilant 25 mcg inhalat.powder (Trelegy Ellipta) levalbuterol tartrate 45 1 - 2 puff inhalation Q4H #15 grams 04/18/23 mcg/actuation aerosol inhaler magnesium chloride 64 mg 64 mg PO DAILY AM #90 tabs 04/18/23 (magnesium chloride) tablet pantoprazole 40 mg tablet,delayed 40 mg PO DAILY AM #90 tabs 04/18/23 release prednisone 20 mg tablet 40 mg PO DAILY AM #12 tabs 04/18/23 tamsulosin 0.4 mg capsule 0.8 mg PO DAILY #180 caps 04/18/23 loratadine 10 mg tablet 10 mg PO DAILY #90 tabs 04/22/23 Allergies Allergy/AdvReac Type Severity Reaction Status Date / Time bupropion AdvReac Severe seizures Verified 09/27/22 09:56 General Stated Complaint: EyeProblem JENNA: 3 Review of Systems All systems reviewed & are unremarkable except as noted in HPI and below PFSH All Active Problems Contact dermatitis of face (Acute) Acute allergic conjunctivitis (Acute) Impaired gait and mobility (Acute ~03/2023) Hyperlipidemia (Chronic) Tobacco abuse disorder (Acute) Cut down 1/2PPD Personal history of noncompliance with medical treatment and regimen (Chronic) Alcoholic liver disease (Chronic) Anemia (Chronic ~02/2022) S/P GI bleed CHF (congestive heart failure) (Chronic ~02/2023) ECHO 02/2022 LVEF 45-50% Depression (Chronic) Plans on getting connected to social work Tineo's esophagus (Chronic ~04/2019) ETOH; Upper endoscopy 03/2019 (see path report--no tineo's?, but 08/15/2019 surg note says +tineo's) Weakness (Acute) LE weakness; Home PT Urinary retention (Chronic) Dr. Ramos COPD (chronic obstructive pulmonary disease) (Chronic) Atrial fibrillation (Chronic) Paroxysmal per hospital records; not anticoagulated secondary to recurrent GI bleeds from chronic EtOH use Alcohol use disorder (Chronic) Medical History Acute upper gastrointestinal bleeding (~02/2022) Tineo's esophagus Depression Gastric ulcer GI bleed Gout Colchicine prevention Hematemesis Insomnia Palliative care patient Dobbertin Radicular pain of right lower extremity Renal insufficiency Right knee pain Sleeping difficulty Melatonin RX Smoking hx Troponin level elevated UTI (urinary tract infection) Surgical History H/O esophagogastroduodenoscopy (~04/2019) [place] [facility] [place] w/ non-bleeding esophageal ulcer. Multiplle inflammatory appearing nodules at [facility] Social History Smoking/Tobacco Use Status: Current every day Tobacco Type: cigarettes Years smoked: 50 Smoking risk assessment performed?: Yes Alcohol Intake: current Alcohol Intake frequency: other Alcohol type: hard liquor Drug use: Never Substance use type: does not use Details: Pt has not had alcohol since being at the [facility]. 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 Intraocular pressures are measured at 14 and 15 bilaterally in the eyes. Mild conjunctival cobblestoning noted on slit-lamp exam. Corneal staining shows no evidence of corneal abrasion or laceration. Negative Amrik sign. Pupils are reactive bilaterally. 3.ENT: Atraumatic external nose and ears. Moist MM. Neck: Symmetric, trachea midline, No thyromegaly. 4.CVS: +S1/S2, No murmurs or gallops. Peripheral pulses 2+ and equal in all extremities. Brisk capillary refill in all extremities. 5.RESP: Unlabored respiratory effort. Clear to auscultation bilaterally. No wheezes rales or rhonchi 6.GI: Soft, Nontender/Nondistended, No hepatosplenomegaly. No guarding or rebound. 7.MSK: Normocephalic/Atraumatic, Extremities w/o deformity or ttp No cyanosis or clubbing, Normal movement of all extremities 8.Skin: Warm, Dry. Skin around the patient's eyes, forehead, and inferior orbital area is red, but nonedematous. Tender almost with hyperesthesias. Notable contact dermatitis-like appearance. Negative Nikolsky sign. No large vesicles or bulla. No palpable purpura. No oral lesions. No mucosal lesions. No evidence of severe cellulitis. No evidence of vaccine preventable rash. 9.Neuro: wood hacker II-XII grossly intact. Sensation grossly intact, no focal neurologic deficits. 10.Psych: (AAO) x3. Appropriate mood and affect Course Vital Signs Vital signs: Vital Signs Pulse 120 H 04/23/23 01:44 Respiratory Rate 16 04/23/23 01:44 Blood Pressure 215/115 H 04/23/23 01:44 Pulse Oximetry 100 04/23/23 01:44 Pulse 110 H 04/23/23 03:23 Respiratory Rate 16 04/23/23 03:23 Respiratory Effort Normal, Non-Labored 04/23/23 01:51 Blood Pressure 175/105 H 04/23/23 03:23 Blood Pressure Position Sitting 04/23/23 01:44 Pulse Oximetry 99 04/23/23 03:23 Oxygen Delivery Method Room Air 04/23/23 03:23 Oxygen Flow Rate 0 04/23/23 03:23 Pain Level 10 04/23/23 01:44
[2023-04-23] MEDS: Ketorolac 15 MG/ML VIAL IVP (05:00)
[2023-04-23 05:47] VITALS: BP 168/90; PULSE 90; RESP 14; O2SAT 98
== END 2023-04-23 06:27 | disposition home or self-care (01) ==
PROVIDERS: Emergency Provider Student in an Organized Health Care Education/Training Program; PCP Nurse Practitioner Adult Health
DX: L23.9 Allergic contact dermatitis, unspecified cause (principal); H10.13 Acute atopic conjunctivitis, bilateral; K70.9 Alcoholic liver disease, unspecified; I11.0 Hypertensive heart disease with heart failure; I50.32 Chronic diastolic (congestive) heart failure; I48.0 Paroxysmal atrial fibrillation; J44.9 Chronic obstructive pulmonary disease, unspecified; F17.210 Nicotine dependence, cigarettes, uncomplicated
CPT/HCPCS: 99283; J1885; J8540

== ENCOUNTER 2023-04-23 15:28 | Outpatient (REF) | payer MEDICARE, MEDICAID, SELFPAY ==
[2023-04-23 13:01] LABS: HCT 29.3 % (40.0-50.0); HGB 8.9 g/dL (13.5-17.5); Lymphocytes % 8.8; MCH 22.7 pg (27.0-33.0); MCHC 30.4 % (32.0-36.0); MCV 75 fL (80-95); MPV 10.7 fL (8.0-11.0); Neutrophils % 89.6; Platelet Count 270 10^3/uL (130-400); RBC 3.92 10^6/uL (4.36-5.78); RDW 18.1 % (11.8-14.1); WBC 4.42 10^3/uL (4.4-10.8)
[2023-04-23 13:02] LABS: Abs Immature Grans 0.03 10^3/uL (0.0-0.06); Absolute Lymphocyte Count 0.39 10^3/uL (1.2-3.4); Absolute Monocyte Count 0.04 10^3/uL (0.1-0.8); Absolute Neutrophil Count 3.96 10^3/uL (1.2-6.7); Immature Grans % 0.7; Monocytes % 0.9
[2023-04-23 13:21] LABS: Diff Comment RBC Morph Reviewed; Hypochromasia 1+; Microcytosis 2+
[2023-04-23 13:22] LABS: ALT 9 U/L (16-63); AST < 5 U/L (15-37); Albumin 3.8 g/dL (3.4-5.0); Alkaline Phosphatase 58 U/L (46-116); Anion Gap 14.9 mmol/L (3-11); BUN 34 mg/dL (7-18); Bilirubin, Total 0.5 mg/dL (0.2-1.0); CO2 20.1 mmol/L (21.0-32.0); CREATININE 2.1 mg/dL (0.70-1.30); Calcium 8.8 mg/dL (8.5-10.1); Calculated LDL 87 mg/dL (<100); Chloride 103 mmol/L (98-107); Cholesterol 162 mg/dL (<200); Estimated GFR 32.02 (mL/min/1.73m2); Glucose 156 mg/dL (74-106); HDL Cholesterol 46 mg/dL (40-60); Magnesium 1.5 mg/dL (1.8-2.4); Potassium 4.8 mmol/L (3.5-5.1); Sodium 138 mmol/L (136-145); Total Protein 6.7 g/dL (6.4-8.2); Triglyceride 146 mg/dL (<150)
== END 2023-04-23 15:29 | disposition home or self-care (01) ==
LOC: LBN 15:28
PROVIDERS: PCP Nurse Practitioner Adult Health; Visit Provider Nurse Practitioner Adult Health
DX: E78.5 Hyperlipidemia, unspecified (principal); E83.42 Hypomagnesemia; K70.9 Alcoholic liver disease, unspecified; J44.9 Chronic obstructive pulmonary disease, unspecified
CPT/HCPCS: 80053; 80061; 83735; 85025

== ENCOUNTER 2023-08-02 06:38 | Emergency (ER) | payer OTHER, SELFPAY ==
[2023-08-02] VITALS (21 sets, daily range): BP systolic 131–156; BP diastolic 66–91; PULSE 80–97; RESP 18–20; TEMP 36.6–36.8; O2SAT 95–97
--- NOTE | 2023-08-02 06:30 | DI.RAD_ITS ---
Exam(s) XR CHEST 2V PA LATERAL EXAM: XR CHEST 2V PA LATERAL CLINICAL HISTORY: found, down, intox TECHNIQUE: 2D digital imaging was performed. COMPARISON: CR XR PORTABLE CHEST AP from 03/05/2023 FINDINGS: Exam is limited by under penetration at the bases. HEART: Normal size. Aorta: Not dilated. PULMONARY VASCULATURE: Normal. LUNGS: Clear. PLEURAL SPACE: No pleural effusion or pneumothorax. BONE:Scoliosis at the thoracolumbar junction. IMPRESSION: No acute abnormality. DATA REPOSITORY: RADIATION DOSE DELIVERED:
--- NOTE | 2023-08-02 06:30 | DI.RAD_ITS ---
Exam(s) XR PELVIS AP EXAM: XR PELVIS AP CLINICAL HISTORY: found down, intox. TECHNIQUE: 2D digital imaging was performed. COMPARISON: CR XR HIP RT COMPLETE AP PELVIS from 08/12/2019 FINDINGS: BONES: No acute fracture is present. No bony destructive lesion is seen. JOINTS: No dislocation present. Moderate narrowing of the right hip joint space. Severe degenerative changes at L5-S1 scoliosis. Degenerative changes at the SI joints. SOFT TISSUE: Normal. IMPRESSION: No fracture is visible. Degenerative changes. DATA REPOSITORY: RADIATION DOSE DELIVERED:
--- NOTE | 2023-08-02 06:35 | ED.GENADUL_ITS ---
Discharge Plan Discharge Details Chief Complaint: PsychEval Primary Care Provider: Desirae Panda ED Provider: Moise Borges Home Meds and New Rx's Prescriptions: No Action atorvastatin 40 mg tablet 40 mg PO QHS Qty: 90 3RF Trelegy Ellipta 100-62.5-25 mcg blister with device 1 inh INHALATION Q24H Qty: 60 6RF Rx Instructions: 04/18/23: PLEASE MAIL DELIVER (PT UNABLE TO ELECTRICAL DISCHARGE MACHINE OPERATOR) levalbuterol tartrate 45 mcg/actuation HFA aerosol inhaler 1 - 2 puff INHALATION Q4H Qty: 15 3RF Rx Instructions: RESCUE INHALER 03/2023: PLEASE DELIVER (PT CANNOT ELECTRICAL DISCHARGE MACHINE OPERATOR) magnesium chloride 64 mg magnesium tablet 64 mg PO DAILY AM Qty: 90 3RF Rx Instructions: LOW MAGNESIUM pantoprazole 40 mg tablet,delayed release (DR/EC) 40 mg PO DAILY AM Qty: 90 3RF Rx Instructions: GI bleed tamsulosin 0.4 mg capsule 0.8 mg PO DAILY Qty: 180 3RF Rx Instructions: BPH/help urinate nitroglycerin 0.4 mg tablet, sublingual 0.4 mg sublingual Q5M PRN Rx Instructions: do not exceed 3 doses per episode loratadine 10 mg tablet 10 mg PO DAILY Qty: 90 3RF Rx Instructions: COPD, allergies, itchy nose & eyes, nasal drip ibuprofen 600 mg tablet 600 mg PO BID PRN (Reason: pain) Qty: 12 0RF Rx Instructions: Foot/toe pain. Take with food. 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 Endorsing SI without a plan. Given age and past medical history will evaluate medically and from a trauma standpoint given patient was found down in the setting of intoxication, no chest pain or shortness of breath hemodynamically stable; low suspicion for intracranial hemorrhage stroke or infectious process, likely intoxication in the setting of worsening depression. Will obtain CT head screening chest x-ray screening x-ray pelvis, basic labs EtOH level will reassess psychiatric symptoms when patient is sober. 8: 06 patient resting comfortably, neurologically intact CT head unremarkable. Awaiting chest x-ray and pelvis x-ray to clear from a trauma standpoint. Will reassess after sober to assess psychiatric needs HPI General Date/Time Provider Initiated Documentation: 08/02/23 06:56 . HPI Narrative: 78-year-old male brought in by EMS for evaluation of suicidal ideation, patient endorses psychosocial stressors related to issues with his family. Patient endorses suicidal ideation without a plan. 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 Related Data Home Medications Medication Instructions Recorded Confirmed nitroglycerin 0.4 mg sublingual 0.4 mg sublingual Q5M PRN 11/24/20 04/18/23 tablet atorvastatin 40 mg tablet 40 mg PO QHS #90 tabs 09/27/22 04/18/23 fluticasone fur. 100 mcg-umeclid 1 inh inhalation Q24H #60 ea 04/18/23 04/18/23 62.5 mcg-vilant 25 mcg inhalat.powder (Trelegy Ellipta) levalbuterol tartrate 45 1 - 2 puff inhalation Q4H #15 grams 04/18/23 04/18/23 mcg/actuation aerosol inhaler magnesium chloride 64 mg 64 mg PO DAILY AM #90 tabs 04/18/23 04/18/23 (magnesium chloride) tablet pantoprazole 40 mg tablet,delayed 40 mg PO DAILY AM #90 tabs 04/18/23 04/18/23 release tamsulosin 0.4 mg capsule 0.8 mg (2 x 0.4 mg) PO DAILY #180 04/18/23 04/18/23 caps loratadine 10 mg tablet 10 mg PO DAILY #90 tabs 04/22/23 ibuprofen 600 mg tablet 600 mg PO BID PRN pain #12 tabs 06/19/23 Previous Rx's Medication Instructions Recorded atorvastatin 40 mg tablet 40 mg PO QHS #90 tabs 09/27/22 fluticasone fur. 100 mcg-umeclid 1 inh inhalation Q24H #60 ea 04/18/23 62.5 mcg-vilant 25 mcg inhalat.powder (Trelegy Ellipta) levalbuterol tartrate 45 1 - 2 puff inhalation Q4H #15 grams 04/18/23 mcg/actuation aerosol inhaler magnesium chloride 64 mg 64 mg PO DAILY AM #90 tabs 04/18/23 (magnesium chloride) tablet pantoprazole 40 mg tablet,delayed 40 mg PO DAILY AM #90 tabs 04/18/23 release tamsulosin 0.4 mg capsule 0.8 mg (2 x 0.4 mg) PO DAILY #180 04/18/23 caps loratadine 10 mg tablet 10 mg PO DAILY #90 tabs 04/22/23 ibuprofen 600 mg tablet 600 mg PO BID PRN pain #12 tabs 06/19/23 Allergies Allergy/AdvReac Type Severity Reaction Status Date / Time bupropion AdvReac Severe seizures Verified 09/27/22 09:56 General Stated Complaint: PsychEval JENNA: 2 Review of Systems Narrative: Review of Systems Constitutional: Intoxication Eyes: negative ENT: negative Cardiovascular: negative Respiratory: negative Gastrointestinal: negative : negative Musculoskeletal: negative Skin: negative Neurologic: negative Psych: Depression, SI PFSH All Active Problems (Updated 05/24/23 @ 00:04 by LAURA AYALA) Impaired gait and mobility (Acute ~03/2023) Hyperlipidemia (Chronic) Tobacco abuse disorder (Acute) Cut down 1/2PPD Personal history of noncompliance with medical treatment and regimen (Chronic) Alcoholic liver disease (Chronic) Anemia (Chronic ~02/2022) S/P GI bleed CHF (congestive heart failure) (Chronic ~02/2023) ECHO 02/2022 LVEF 45-50% Depression (Chronic) Plans on getting connected to social work Tineo's esophagus (Chronic ~04/2019) ETOH; Upper endoscopy 03/2019 (see path report--no tineo's?, but 08/15/2019 surg note says +tineo's) Weakness (Acute) LE weakness; Home PT Urinary retention (Chronic) Dr. Ramos COPD (chronic obstructive pulmonary disease) (Chronic) Atrial fibrillation (Chronic) Paroxysmal per hospital records; not anticoagulated secondary to recurrent GI bleeds from chronic EtOH use Alcohol use disorder (Chronic) Medical History Acute upper gastrointestinal bleeding (~02/2022) Tineo's esophagus Depression Gastric ulcer GI bleed Gout Colchicine prevention Hematemesis Insomnia Palliative care patient Dobbertin Radicular pain of right lower extremity Renal insufficiency Right knee pain Sleeping difficulty Melatonin RX Smoking hx Troponin level elevated UTI (urinary tract infection) Surgical History H/O esophagogastroduodenoscopy (~04/2019) Repeat on 10/26/20 [facility] [place] severe reflux esophagitis w/ non-bleeding esophageal ulcer. Multiplle inflammatory appearing nodules at [facility] Social History Smoking/Tobacco Use Status: Current every day Tobacco Type: cigarettes Years smoked: 50 Smoking risk assessment performed?: Yes Alcohol Intake: current Alcohol Intake frequency: other Alcohol type: hard liquor Drug use: Never Substance use type: does not use Details: Pt has not had alcohol since being at the [facility]. 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) What type of physical activity do you participate in: none Do you feel safe at home: Yes Do you feel safe in your relationship?: Yes Exam Narrative Exam Narrative: Physical Examination General: alert, awake, cooperative, appears intoxicated HEENT: normocephalic, atraumatic; PERRL, EOM intact, conjunctiva normal; no nasal discharge; moist mucous membranes, oral and pharyngeal mucosa normal, tolerating secretions Neck: supple, trachea midline; full ROM Chest: normal to inspection Respiratory: normal respiratory effort, speaking in full sentences, clear to auscultation, no wheezing, rales or rhonchi Cardiac: regular rate, regular rhythm, S1S2 intact, no murmurs rubs or gallops GI: abdomen soft, non-tender, non-distended; no palpable mass or hepatosplenomegaly Skin: no lesions, rashes or trauma appreciated Neuro: AAOx3, normal speech, moving all extremities Extremities: No signs of trauma Psych: Depression, SI Course Vital Signs Vital signs: Vital Signs Temperature 36.6 C 08/02/23 06:29 Pulse 82 08/02/23 06:29 Respiratory Rate 18 08/02/23 06:29 Blood Pressure 146/66 H 08/02/23 06:29 Pulse Oximetry 97 08/02/23 06:29 Temperature 36.6 C 08/02/23 06:29 Pulse 82 08/02/23 06:29 Respiratory Rate 18 08/02/23 06:29 Blood Pressure 146/66 H 08/02/23 06:29 Blood Pressure Position Supine 08/02/23 06:29 Pulse Oximetry 97 08/02/23 06:29 Oxygen Delivery Method Room Air 08/02/23 06:29 Oxygen Flow Rate 0 08/02/23 06:29 Pain Level 8 08/02/23 06:29
[2023-08-02 06:49] LABS: Abs Immature Grans 0.03 10^3/uL (0.0-0.06); Absolute Basophil Count 0.09 10^3/uL (0.0-0.2); Absolute Eosinophil Count 0.12 10^3/uL (0.0-0.7); Absolute Lymphocyte Count 1.91 10^3/uL (1.2-3.4); Absolute Monocyte Count 0.41 10^3/uL (0.1-0.8); Absolute Neutrophil Count 2.23 10^3/uL (1.2-6.7); Basophils % 1.9; Eosinophils % 2.5; HCT 27.2 % (40.0-50.0); HGB 7.6 g/dL (13.5-17.5); Immature Grans % 0.6; Lymphocytes % 39.9; MCH 18.5 pg (27.0-33.0); MCHC 27.9 % (32.0-36.0); MCV 66 fL (80-95); MPV 7.9 fL (8.0-11.0); Monocytes % 8.6; Neutrophils % 46.5; Nucleated RBC 0.6 % (0.0-0.3); Platelet Count 299 10^3/uL (130-400); RBC 4.11 10^6/uL (4.36-5.78); RDW 19.2 % (11.8-14.1); RDW-SD 45.1 fL; WBC 4.79 10^3/uL (4.4-10.8)
[2023-08-02 07:09] LABS: ALT 12 U/L (16-63); AST 16 U/L (15-37); Albumin 3.2 g/dL (3.4-5.0); Alkaline Phosphatase 71 U/L (46-116); Anion Gap 10.8 mmol/L (3-11); BUN 19 mg/dL (7-18); Bilirubin, Total 0.2 mg/dL (0.2-1.0); CO2 26.2 mmol/L (21.0-32.0); CREATININE 1.2 mg/dL (0.70-1.30); Calcium 8.8 mg/dL (8.5-10.1); Chloride 107 mmol/L (98-107); ETHANOL BLOOD 321.6 mg/dL (<10); Estimated GFR 62.29 (mL/min/1.73m2); Glucose 101 mg/dL (74-106); Potassium 3.7 mmol/L (3.5-5.1); Sodium 144 mmol/L (136-145); Total Protein 6.7 g/dL (6.4-8.2)
[2023-08-02 07:12] LABS: Diff Comment RBC Morph Reviewed; Hypochromasia 2+; Microcytosis 2+; Poikilocytes 1+
--- NOTE | 2023-08-02 07:44 | DI.VRAD_ITS ---
PROCEDURE INFORMATION: Exam: CT Head Without Contrast Exam date and time: 08/02/2023 7:33 AM Age: 78 years old Clinical indication: Injury or trauma; Injury date: 08/02/23; Injury details: Fall, found intoxicated. TECHNIQUE: Imaging protocol: Computed tomography of the head without contrast. Radiation optimization: All CT scans at this facility use at least one of these dose optimization techniques: automated exposure control; mA and/or kV adjustment per patient size (includes targeted exams where dose is matched to clinical indication); or iterative reconstruction. COMPARISON: CT HEAD WO 03/05/2023 1:00 PM FINDINGS: Brain: There is no evidence of acute brain infarct, mass, shift of midline or parenchymal hemorrhage. Patchy periventricular white matter low attenuation present, a nonspecific finding but likely related to chronic small vessel ischemic change. No acute extra-axial fluid collection Cerebral ventricles: Moderate dilatation of the ventricular system and sulci diffusely, compatible with volume loss. Paranasal sinuses: Mild paranasal sinus disease Mastoid air cells: Visualized mastoid air cells are well aerated. Bones/joints: Unremarkable. No acute fracture. Soft tissues: Left parietal scalp hematoma IMPRESSION: No acute intracranial hemorrhage Dictated and Authenticated by: Karina Johnson MD. Ordering:EDUARDO Phipps MD
--- NOTE | 2023-08-02 07:45 | DI.CT_ITS ---
Exam(s) CT HEAD WO EXAM: CT HEAD WO CLINICAL HISTORY: found down, intox. TECHNIQUE: Imaging Protocol: Axial computed tomography images with coronal and sagittal reformatted images were created and reviewed COMPARISON: CT CT HEAD WO from 03/05/2023 FINDINGS: Ventricles and Extra axial spaces: Normal in size and morphology for the patient's age. Hemorrhage: None. Cerebral parenchyma: No evidence of acute infarct or mass. Atrophy. Mildly decreased attenuation in the white matter consistent with small vessel disease. Basal ganglia lacunar infarcts. Midline shift: None. Brainstem/Cerebellum: Normal. Calvarium: Normal. Visualized Paranasal sinuses/Mastoids: Mucous retention at the floors of the maxillary sinuses. Soft Tissues: Unremarkable. IMPRESSION: No acute intracranial process. RADIATION DOSE DELIVERED: Total DLP DATA REPOSITORY: All CT scans at this facility are submitted to the National Radiology Data Registry (NRDR) Dose Index Registry (DIR) with the [employer] (A[employer]). RADIATION OPTIMIZATION: All CT scans at this facility use at least one of these dose optimization te chniques: automated exposure control; mA and/or kV adjustment per patient size (includes targeted exa ms where dose is matched to clinical indication); or iterative reconstruction.
--- NOTE | 2023-08-02 09:16 | W.EDPROG ---
Date of service: 08/02/23 Time of Service: 09:23 Medical Decision Making sign out received. Patient with chronic alcohol abuse and suicidal ideation. patient has had increasing falls and debility. fell last night and was found down, unable to get himself up. Plan for reassessment after sobriety. Patient was evaluated by mental health. He is now sober and is not endorsing any suicidal ideations. She is recommending referral to [facility]. She is also placed a referral to case management manager. I reviewed the patient's chart and noted his acute on chronic anemia. Likely secondary to alcohol abuse. Given this anemia and the patient's generalized weakness and difficulty with ambulation and mobility and I discussed with the hospitalist for admission. The hospitalist declines admission at this time. Is requesting that we do blood transfusion in ED, have physical therapy and case management evaluate the patient in the emergency department and reassess hospitalization needs at that time. personalized living manager evaluated patient, currently there is no HH, PT or OT services in place for the patient. He lives on an upper level of an apartment building. Patient evaluated by PT but she reports to me that patient was too weak to participate. She does not feel that he would be safe to go home. Given this severe weakness and debility, I still feel the patient requires admission. Discussed with hospitalist who states patient cannot be admitted because he refused PT. I have discussed with patient and he states that he did not refuse PT and that he tried to do get up but he's just too weak. Blood transfusion complete. Will send CBC to evaluate response to blood transfusion. Offered food, He says that he feels too bad too eat. Patient does not have a safe discharge plan at this time, and after my clinical evaluation and observation of this patient during the last 10 hours I do not feel he is safe to discharge. At the time of sign out, final disposition remains pending. May have to hold patient in the ED overnight to have a re-evaluation by PT in the morning. Medical Records Medical records reviewed: Yes I reviewed the patient's medical records. Lab Data Lab results reviewed: Yes I reviewed the patient's lab results. Sign Out Sign Out Data: Sign Out Comment: etoh intox, SI, pending imaging for med clearance, reassess psych symptoms when sober Last updated by Moise Borges MD at 08/02/23 08:07 Discharge Plan Discharge Details Chief Complaint: PsychEval Primary Care Provider: Desirae Panda ED Provider: Jerry Kwon Home Meds and New Rx's Prescriptions: No Action atorvastatin 40 mg tablet 40 mg PO QHS Qty: 90 3RF Trelegy Ellipta 100-62.5-25 mcg blister with device 1 inh INHALATION Q24H Qty: 60 6RF Rx Instructions: 04/18/23: PLEASE MAIL DELIVER (PT UNABLE TO INSTRUCTIONAL SPECIALIST) levalbuterol tartrate 45 mcg/actuation HFA aerosol inhaler 1 - 2 puff INHALATION Q4H Qty: 15 3RF Rx Instructions: RESCUE INHALER 03/2023: PLEASE DELIVER (PT CANNOT INSTRUCTIONAL SPECIALIST) magnesium chloride 64 mg magnesium tablet 64 mg PO DAILY AM Qty: 90 3RF Rx Instructions: LOW MAGNESIUM pantoprazole 40 mg tablet,delayed release (DR/EC) 40 mg PO DAILY AM Qty: 90 3RF Rx Instructions: GI bleed tamsulosin 0.4 mg capsule 0.8 mg PO DAILY Qty: 180 3RF Rx Instructions: BPH/help urinate nitroglycerin 0.4 mg tablet, sublingual 0.4 mg sublingual Q5M PRN Rx Instructions: do not exceed 3 doses per episode loratadine 10 mg tablet 10 mg PO DAILY Qty: 90 3RF Rx Instructions: COPD, allergies, itchy nose & eyes, nasal drip ibuprofen 600 mg tablet 600 mg PO BID PRN (Reason: pain) Qty: 12 0RF Rx Instructions: Foot/toe pain. Take with food.
[2023-08-02 11:13] LABS: *AMPHETAMINES SCREEN URINE Negative (Negative); *BARBITURATES SCREEN URINE Negative (Negative); *BENZODIAZEPINES SCREEN URINE Negative (Negative); Cannabinoids THC Negative (Negative); Cocaine Screen,Urine Negative (Negative); METHADONE URINE SCREEN Negative (Negative); OPIATES URINE SCREEN Negative (Negative)
[2023-08-02 11:14] LABS: Tricyclic Antidepressants Negative (Negative)
[2023-08-02 12:25] LABS: Source Nasal/Nares
[2023-08-02 13:08] LABS: COVID-19 PCR Negative (Negative)
--- NOTE | 2023-08-02 15:09 | IN_ITS ---
PT Notes Visit Reasons: [facility] Emergency Department Physical Therapy Initial Evaluation Date: 08/02/2023 Referring Doctor: Jerry Kwon MD PT Orders:Safety Consult for D/C Precautions: Fall. Standard. Activity as tolerated. Patient Profile/Admitting Diagnosis: Khoi is a 77-year-old male smoker with past medical history significant for alcohol abuse, COPD who presented to the ED today after being found on the ground at his home by fire department personnel intoxicated. PT was consulted to determine safety level for discharge to home. PMHX: All Active Problems (Updated 05/24/23 @ 00:04 by LAURA AYALA) Impaired gait and mobility (Acute ~03/2023) Hyperlipidemia (Chronic) Tobacco abuse disorder (Acute) Cut down 1/2 PPD Personal history of noncompliance with medical treatment and regimen (Chronic) Alcoholic liver disease (Chronic) Anemia (Chronic ~02/2022) S/P GI bleed CHF (congestive heart failure) (Chronic ~02/2023) ECHO 02/2022 LVEF 45-50%Depression (Chronic) Plans on getting connected to social work Tineo's esophagus (Chronic ~04/2019) ETOH; Upper endoscopy 03/2019 (see path report--no tineo's?, but 08/15/2019 surg note says +tineo's) Weakness (Acute) LE weakness; Home PT Urinary retention (Chronic) Dr. Ramos COPD (chronic obstructive pulmonary disease) (Chronic) Atrial fibrillation (Chronic) Paroxysmal per hospital records; not anticoagulated secondary to recurrent GI bleeds from chronic EtOH use Alcohol use disorder (Chronic) Medical History Acute upper gastrointestinal bleeding (~02/2022) Tineo's esophagus Depression Gastric ulcer GI bleed Gout Colchicine prevention Hematemesis Insomnia Palliative care patient DobbertinRadicular pain of right lower extremity Renal insufficiency Right knee pain Sleeping difficulty Melatonin RXSmoking hx Troponin level elevated UTI (urinary tract infection) Surgical History H/O esophagogastroduodenoscopy (~04/2019) [place] [facility] [place] esophagitis w/ non-bleeding esophageal ulcer. Multiplle inflammatory appearing nodules at GEJ Social History/Home Situation: Patient lives alone in an apartment with 15 steps to enter with a rail on the right going up.? Independent with FWW for all mobility ADL performance.? Had a caregiver who comes in for 1-3 hours twice a week to do chores and laundry but has stopped coming for some time now. had been doing everything on his own with difficulty. Equipment Owned/DME: FWW, SPC SUBJECTIVE: Patient complained of being weak, hurting all over, and did not initially want to get up stating that he was told that he will be admitted. With encouragement, he did agree to try sit up but pain report worsened and verbalized not being able to complete further testing due to severe weakness and lack of sleep. He refused further mobility assessment after attempting edge of bed sitting twice. Patient advised PT to come back tomorrow so he could be ready to complete assessment. OBJECTIVE: General Observation: Resting in bed.? IV access in L UE.? Blood transfusion ongoing. Drowsy but is rousable. Mental Status: Drowsy but rousable, required extensive encouragement to initiate today's assessment Pain: Hypersensitve to touch; moaned in pain all over specially when touched ROM: Right Upper Extremity: ? Grossly WFL but hurting all over throughout range Left Upper Extremity:? Grossly WFL but hurting all over throughout range Right Lower Extremity: Grossly WFL but hurting all over throughout range Left Lower Extremity: Grossly WFL but hurting all over throughout range Strength: Right Upper Extremity: Unable to assess due to patient refusal Left Upper Extremity: Unable to assess due to patient refusal Right Lower Extremity: Unable to assess due to patient refusal Left Lower Extremity: Unable to assess due to patient refusal SENSATION: Intact as to pain and pressure in bilateral lower extremities BED MOBILITY/TRANSFERS: Supine to sit patient refusing assessment Sit to stand patient refusing assessment Stand to sit patient refusing assessment GAIT: Patient refusing gait assessment BALANCE: Static sitting Poor Dynamic Sitting Unable Static Standing Unable Dynamic Standing Unable Mobility Limitations Standardized Measure [facility] ? AM -PAC ? ?6 clicks? Basic Mobility Inpatient Short Form: Raw score: Unable to test? CMS score: Unable to score Informed Consent/Education:? Patient was instructed in purpose of PT consult but was only willing to sit up at edge of bed, refused all other aspects of evaluation ASSESSMENT: ? Adverse late effect of inebriation, chronic lack of motivation, and ongoing pain complaint limited completion of this assessment. Unable to definitively assess current mobility status due to patient's refusal to perform assessment for transfers and ambulation. With extensive encouragement, patient only agreed to sitting up twice but refused further testing due to complaint of generalized pain and debility despite offer of help by a second person. Referring MD was apprised of patient's refusal and unwillingness to participate in therapy. Patient is assessed as a 54435 moderate complexity based on the following: History: Patient is a 78-year-old male with a past medical history, impairment level findings, and functional limitations as listed above Examination: Unable to fully assess Presentation: Unstable Decision Makin moderate complexity Goals: N/A. PT evaluation only. Plan of Care/Treatment Plan: N/A. PT evaluation only. DISCHARGE RECOMMENDATIONS: Unable to provide recommendations at this time due to incomplete mobility evaluation. Can attempt another evaluation once patient is cognitively clearer and is pre-medicated for pain. TREATMENT CODE/TIME: 76220 x 33 minutes beginning at 14:02 PM. Thank you for the opportunity to participate in the care of this patient. Franchesca Hawley PT, DPT, CLT [facility] [place], [place]
--- NOTE | 2023-08-02 16:15 | CMPROGNOTE_ITS ---
Date of service: 08/02/23 Time of Service: 16:16 Care Management Progress Note Progress Note Text Progress Note Text: CM asked to see patient by ED provider. Rufino presented last night intoxicated and verbalizing SI. When Rufino was no longer intoxicated he was evaluated by [facility] crisis. They recommended a germ drier and cleared him for discharge. Rufino apparently fell at home and was down for about 2 hours prior to calling EMS. Rufino is well known to [facility] as he has had many admissions. Today he is complaining of weakness and a PT evaluation was ordered. Rufino refused to complete the evaluation, stating that it hurt to move. He was found to be anemi c (H&H 7.6./27.2) and was transfused a unit of blood. Medically, there were no additional issues identified. He is hemodynamically stable and imaging of his chest, pelvis and a Head Ct were all negative for any acute process. Rufino did not meet admission criteria for anemia (inpatient or OBS) and no additional diagnoses have been made to evaluate for admission criteria.
[2023-08-02 17:12] LABS: Abs Immature Grans 0.05 10^3/uL (0.0-0.06); Absolute Basophil Count 0.12 10^3/uL (0.0-0.2); Absolute Eosinophil Count 0.14 10^3/uL (0.0-0.7); Absolute Monocyte Count 0.38 10^3/uL (0.1-0.8); Absolute Neutrophil Count 3.14 10^3/uL (1.2-6.7); Basophils % 2.3; Eosinophils % 2.7; HCT 28.1 % (40.0-50.0); HGB 8.1 g/dL (13.5-17.5); Lymphocytes % 26.8; MCH 19.3 pg (27.0-33.0); MCHC 28.8 % (32.0-36.0); MCV 67 fL (80-95); MPV 8.5 fL (8.0-11.0); Monocytes % 7.3; Neutrophils % 59.9; Platelet Count 303 10^3/uL (130-400); RBC 4.19 10^6/uL (4.36-5.78); RDW 20.7 % (11.8-14.1); RDW-SD 49.3 fL; WBC 5.23 10^3/uL (4.4-10.8)
[2023-08-02 17:22] LABS: Anisocytosis 2+; Diff Comment RBC Morph Reviewed; Hypochromasia 1+; Macrocytosis 1+; Microcytosis 2+
[2023-08-02 17:23] LABS: Poikilocytes 1+
[2023-08-02 22:53] LABS: Magnesium 1.3 mg/dL (1.8-2.4)
--- NOTE | 2023-08-03 00:22 | W.EDPROG ---
Date of service: 08/02/23 Time of Service: 23:00 Medical Decision Making I have received signout and seen and examined the patient. Currently he is complaining of bilateral toe pain which she tells me he has had in the past. I have examined his toes and both toes are slightly tender on the lateral aspect of the great toe at the MTP joints but there is no erythema no swelling no warmth no evidence of gout or cellulitis. He is not a diabetic. He says in the past he has toe pain every 6 months and he usually takes 600 mg of ibuprofen with relief. He has onychomycosis of the nailbeds but no evidence of ingrown toenails. I will write for 600 mg of ibuprofen and 1000 mg of acetaminophen. He was also requesting water and melatonin. Narrative According to the nursing note the patient was not suicidal at 7 PM last night. I will write the order to discontinue the hourly psych assessments. Sign Out Sign Out Data: Sign Out Comment: etoh intox, SI, pending imaging for med clearance, reassess psych symptoms when sober Last updated by Moise Borges MD at 08/02/23 08:07 Sign Out Comment: patient with chronic etoh abuse, found down after fall imaging negative initial SI while intoxicated, now resolved. Eval'd by . Labs concerning for anemia s/p 1 U RBC. pending repeat CBC. Unable to walk, unable to participate with PT. hospitalist declining admission, patient not safe for DC home. Will keep in ED overnight for PT re-eval in the morning. CIWA q 2, home meds ordered Last updated by Jerry Kwon MD at 08/02/23 17:06 Sign Out Comment: Patient transition to room 7. No additional changes during signout. Patient remained stable, pending PT assessment in the morning. Last updated by Santi Dangelo DO at 08/02/23 20:39 Sign Out Comment: This is a 78-year-old male who was brought in intoxicated and was initially suicidal but has not been suicidal since 7 PM last night. He had generalized weakness and the hospitalist was consulted for admission but declined, awaiting physical therapy this morning to evaluate his weakness. If he is able to ambulate and continues to deny suicidal or homicidality he will be discharged home, but if he cannot ambulate he will need to be admitted. Last updated by Hailey Treviño MD at 08/03/23 08:04 Discharge Plan Discharge Details Chief Complaint: GenMedical Primary Care Provider: Desirae Panda ED Provider: Luci Ignacio Home Meds and New Rx's Prescriptions: No Action atorvastatin 40 mg tablet 40 mg PO QHS Qty: 90 3RF Trelegy Ellipta 100-62.5-25 mcg blister with device 1 inh INHALATION Q24H Qty: 60 6RF Rx Instructions: 04/18/23: PLEASE MAIL DELIVER (PT UNABLE TO SIDE SEAM TENDER) levalbuterol tartrate 45 mcg/actuation HFA aerosol inhaler 1 - 2 puff INHALATION Q4H Qty: 15 3RF Rx Instructions: RESCUE INHALER 03/2023: PLEASE DELIVER (PT CANNOT SIDE SEAM TENDER) magnesium chloride 64 mg magnesium tablet 64 mg PO DAILY AM Qty: 90 3RF Rx Instructions: LOW MAGNESIUM pantoprazole 40 mg tablet,delayed release (DR/EC) 40 mg PO DAILY AM Qty: 90 3RF Rx Instructions: GI bleed tamsulosin 0.4 mg capsule 0.8 mg PO DAILY Qty: 180 3RF Rx Instructions: BPH/help urinate nitroglycerin 0.4 mg tablet, sublingual 0.4 mg sublingual Q5M PRN Rx Instructions: do not exceed 3 doses per episode loratadine 10 mg tablet 10 mg PO DAILY Qty: 90 3RF Rx Instructions: COPD, allergies, itchy nose & eyes, nasal drip ibuprofen 600 mg tablet 600 mg PO BID PRN (Reason: pain) Qty: 12 0RF Rx Instructions: Foot/toe pain. Take with food.
[2023-08-03] MEDS: Acetaminophen 500 MG TAB 1000 MG PO (00:39)
[2023-08-03] MEDS: Atorvastatin 40 MG TAB PO (00:39)
[2023-08-03] MEDS: Melatonin 3 MG TAB PO (00:40)
[2023-08-03] MEDS: Ibuprofen 600 MG TAB PO (00:40)
[2023-08-03] MEDS: Magnesium Gluconate 500 MG TAB 1000 MG PO (08:12)
[2023-08-03] MEDS: Budesonide/Formoterol 80/4.5 6.9 GM 60 PUFF INH IH (08:13)
[2023-08-03] MEDS: Pantoprazole 40 MG TABCR PO (08:13)
[2023-08-03] MEDS: Multivitamin TAB 1 TAB PO (08:13)
[2023-08-03] MEDS: Tamsulosin 0.4 MG CAPCR 0.8 MG PO (08:13)
--- NOTE | 2023-08-03 08:13 | ED.PROG_ITS ---
Date of service: 08/03/23 Time of Service: 09:10 Medical Decision Making This patient was signed out to me. Please see previous notes for H&P and initial eval. In brief, 78yo M presenting with alcohol intoxication, passive SI, has since become clinically sober and no longer suicidal. Trauma workup (was found down) was reassuring. However, diffusely weak and reportedly unable to ambulate. S/p transfusion for acute on chronic anemia likely 2/t ETOH abuse, repeat HG >8. Signed out pending PT reval, if able to ambulate safely would discharge home. PT evaluated patient (see their note for details); patient able ambulate independently with walker. He does have a walker at home. Denies SI currently, feels safe to go home. Advised to followup with PCP for anemia; instructed to call on Saturday. Discharged home; discharge instructions including return precautions were reviewed with patient who verbalized understanding. All questions were answered and they are in full agreement with the plan. Sign Out Sign Out Data: Sign Out Comment: etoh intox, SI, pending imaging for med clearance, reassess psych symptoms when sober Last updated by Moise Borges MD at 08/02/23 08:07 Sign Out Comment: patient with chronic etoh abuse, found down after fall imaging negative initial SI while intoxicated, now resolved. Eval'd by . Labs concerning for anemia s/p 1 U RBC. pending repeat CBC. Unable to walk, unable to participate with PT. hospitalist declining admission, patient not safe for DC home. Will keep in ED overnight for PT re-eval in the morning. CIWA q 2, home meds ordered Last updated by Jerry Kwon MD at 08/02/23 17:06 Sign Out Comment: Patient transition to room 7. No additional changes during signout. Patient remained stable, pending PT assessment in the morning. Last updated by Santi Dangelo DO at 08/02/23 20:39 Sign Out Comment: This is a 78-year-old male who was brought in intoxicated and was initially suicidal but has not been suicidal since 7 PM last night. He had generalized weakness and the hospitalist was consulted for admission but declined, awaiting physical therapy this morning to evaluate his weakness. If he is able to ambulate and continues to deny suicidal or homicidality he will be discharged home, but if he cannot ambulate he will need to be admitted. Last updated by Hailey Treviño MD at 08/03/23 08:04 Discharge Plan Disposition Patient Disposition: Home Condition: Good Discharge Details Clinical Impression: Acute alcohol intoxication Primary Care Provider: Desirae Panda ED Provider: Luci Ignacio Home Meds and New Rx's Prescriptions: No Action atorvastatin 40 mg tablet 40 mg PO QHS Qty: 90 3RF Trelegy Ellipta 100-62.5-25 mcg blister with device 1 inh INHALATION Q24H Qty: 60 6RF Rx Instructions: 04/18/23: PLEASE MAIL DELIVER (PT UNABLE TO MINE EXPERT) levalbuterol tartrate 45 mcg/actuation HFA aerosol inhaler 1 - 2 puff INHALATION Q4H Qty: 15 3RF Rx Instructions: RESCUE INHALER 03/2023: PLEASE DELIVER (PT CANNOT MINE EXPERT) magnesium chloride 64 mg magnesium tablet 64 mg PO DAILY AM Qty: 90 3RF Rx Instructions: LOW MAGNESIUM pantoprazole 40 mg tablet,delayed release (DR/EC) 40 mg PO DAILY AM Qty: 90 3RF Rx Instructions: GI bleed tamsulosin 0.4 mg capsule 0.8 mg PO DAILY Qty: 180 3RF Rx Instructions: BPH/help urinate nitroglycerin 0.4 mg tablet, sublingual 0.4 mg sublingual Q5M PRN Rx Instructions: do not exceed 3 doses per episode loratadine 10 mg tablet 10 mg PO DAILY Qty: 90 3RF Rx Instructions: COPD, allergies, itchy nose & eyes, nasal drip ibuprofen 600 mg tablet 600 mg PO BID PRN (Reason: pain) Qty: 12 0RF Rx Instructions: Foot/toe pain. Take with food. Discharge Instructions Instructions: Alcohol Intoxication (ED), Suicide Prevention (ED) Additional Instructions: Call your primary care doctor on Saturday to schedule an appointment within one week to follow up on your visit here. Use your walker at home. Return to the emergency department for new or worsening symptoms, including if you have thoughts of self harm or feel unsafe. Referrals: Desirae Panda, PC ANALYST [Primary Care Provider] -
[2023-08-03] MEDS: Tiotropium Bromide-Respimat 10 PUFF INH 2 PUFF IH (08:14)
[2023-08-03 09:32] VITALS: BP 146/66; PULSE 82; RESP 18; TEMP 36.6; O2SAT 97
--- NOTE | 2023-08-04 11:14 | PDOC.MHCN_ITS ---
Date of service: 08/02/23 Time of Service: 11:14 PHQ-9 Over the last 2 weeks, how often have you been bothered by any of the following problems? 1. Little interest or pleasure in doing things: more than half the days 2. Feeling down, depressed, or hopeless: more than half the days 3. Trouble falling or staying asleep, or sleeping too much: several days 4. Feeling tired or having little energy: more than half the days 5. Poor appetite or overeating: not at all 6. Feeling bad about yourself - or that you are a failure or have let yourself and your family down: several days 7. Trouble concentrating on things, such as reading the newspaper or watching television: not at all 8. Moving or speaking so slowly that other people could have noticed? - Or the opposite - being so fidgety or restless that you have been moving around a lot more than usual: not at all 9. Thoughts that you would be better off or of hurting yourself in some way: not at all Total score: 8 If you checked off any problems, how difficult have these problems made it for you to do your work, take care of things at home, or get along with other people?: very difficult PHQ-9 Results: Positive Source: Developed by Drs. Sam Li, Britney Lim, Alexander Hale and colleagues, with an educational bambi from [employer]. Suicide Severity Rate CSSRS2 Have you been thinking about how you might do this?: No Have you had these thoughts and had some intention of acting on them?: No CSSRS4 Was this within the past three months?: No Screening Score Total Score: 0 Screening: Negative Mental Health Emergency Note Release [facility] release signed:: Yes Reason for Visit The client arrived via ambulance after being found lying on his face in his apartment. He was intoxicated at the time and had made some suicidal statements. Once he was sober [facility] requested an assessment of the client. In the last 2 weeks has the pt presented for ES prior to today?: Unknown Client Information Client is: New Well Housed: Yes Non Suicidal Self Injury Current: No History: No Safety Risk/Harm to Self or Others Current Ideation to Harm Self or Others: No Risk: Does risk to harm exist?: No Risk: Low Risk Duty to warn indicated: No Asssessment/Mental Status Appearance: Poor hygiene Attitude: Cooperative Behavior: Agitated Speech: Loud Affect: Cogruent with mood Mood: Stressed, Depressed and Anxious Thought process: Unremarkable Hallucinations: No Delusions: No Attention: Unremarkable Perception: Not impaired Orientation: Fully orientated Memory: Intact Insight: Good Judgement: Fair Neurovegetative Symptoms Sleep: Increase (If I drink I sleep okay. ) Appetitie: Disordered (Some days good some day's not so good. ) Interests: Decrease Energy: Decrease Libido: Not applicable Substance Use: ETOH dependence Do you use nicotine?: Yes Have you used substances in the last 7 days?: yes, daily 3 glasses of liqueur. Additional Issues: Assaultive/Threatening Behavior: No Medical Concerns: No Client engaged in active self harm w/weapon: No Threatening to run away: No Child reported abuse/neglect: No Voluntarily presenting for services: Yes Domestic violence is a concern: No Extreme Psychosis or extreme behavior is present: No Impression The client is a 78 year old, , , who lives independently in an apartment in [facility]. He reported that he cannot go home right now. I need a couple of days to get back on my feet. He reported that he has a hard time walking and struggles to go up and down the flight of stairs to his second floor apartment. He said I'm sick of being sick. He reported he recently fell and landed on his hip. I feel so weak. The client has a assoc iates degree in Applied Science and has 14 years of service to the [employer] and [employer]. The client's presentation is most congruent with a MDD moderate. He is not on any medications at this time. He is followed by [facility]. He is agreeable to a referral for case management to try and assist with housing needs. He has had 827 days of sobriety when he was living in a [facility]. Resources Reosurces reviewed and given:: 988 and [facility] Plan/Disposition Recommended Disposition: [facility] Services [facility] Services: Other (case management ). Plan: The client is cleared by [facility] as not being a risk to self or others at this t michaela. He will followed by the ED team for disposition. A recommendation for a consult with [facility] was suggested to the ED staff. Person reported agreement to plan: Yes Reports/communication Outcome discussed with: ED/Personnel
== END 2023-08-03 09:45 | disposition home or self-care (01) ==
PROVIDERS: Emergency Medicine; Student in an Organized Health Care Education/Training Program; Emergency Provider Student in an Organized Health Care Education/Training Program; PCP Nurse Practitioner Adult Health
DX: F10.220 Alcohol dependence with intoxication, uncomplicated (principal); I11.0 Hypertensive heart disease with heart failure; I50.32 Chronic diastolic (congestive) heart failure; J44.9 Chronic obstructive pulmonary disease, unspecified; I48.0 Paroxysmal atrial fibrillation; F17.210 Nicotine dependence, cigarettes, uncomplicated; F32.A Depression, unspecified; R45.851 Suicidal ideations
CPT/HCPCS: 123; 36415; 80053; 80307; 86850; 86900; 86901; 86920; 87635; 96127; 97162; 97530; 99284; 00123; 70450; 71046; 72170; 80320; 83735; 85025; P9016

== ENCOUNTER 2023-08-29 09:46 | Emergency (ER) | payer OTHER, SELFPAY ==
[2023-08-29] VITALS (53 sets, daily range): BP systolic 123–172; BP diastolic 71–103; PULSE 0–123; RESP 11–26; TEMP 36.7; O2SAT 89–100
--- NOTE | 2023-08-29 09:45 | RT.EKG_ITS ---
APPROVED REPORT Exam: Resting ECG Reason for Exam: weakness Patient Location: E HR:89 bpm ECG Measurements Heart Rate 89 AXIS [place] [id number] P [id number] QRSd 82 QRS 80 QT 374 T 48 QTc 457 Conclusion Atrial fibrillation
--- NOTE | 2023-08-29 10:12 | W.ED.GENAD ---
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) magnesium chloride 64 mg magnesium tablet 64 mg PO DAILY AM Qty: 90 3RF Rx Instructions: LOW MAGNESIUM pantoprazole 40 mg tablet,delayed release (DR/EC) 40 mg PO DAILY AM Qty: 90 3RF Rx Instructions: GI bleed tamsulosin 0.4 mg capsule 0.8 mg PO DAILY Qty: 180 3RF Rx Instructions: BPH/help urinate nitroglycerin 0.4 mg tablet, sublingual 0.4 mg sublingual Q5M PRN Rx Instructions: do not exceed 3 doses per episode loratadine 10 mg tablet 10 mg PO DAILY Qty: 90 3RF Rx Instructions: COPD, allergies, itchy nose & eyes, nasal drip ibuprofen 600 mg tablet 600 mg PO BID PRN (Reason: pain) Qty: 12 0RF Rx Instructions: Foot/toe pain. Take with food. Medical Decision Making This dictation utilizes [id number] dictation software and may contain unedited grammatical errors. 78 y/o M presents to ED today with a chief complaint of generalized malaise, feeling very sick, question GI vs respiratory source with significant abdominal pain/nausea/vomiting, and coughing with labored respirations without hypoxia. Onset and characteristics include 3 days of acute worsening each day with profound lethargy reported at home unable to climb up just a couple stairs, notes that he cannot stop retching and having severe nausea with abdominal pain but also has had coughing that is difficult to distinguish from his chronic cough, endorses chills and sweats but has not taken his temperature. Patients' medical history: History of upper GI bleeding, gastric ulcer, elevated troponin levels, history of UTIs, renal insufficiency, patient is a palliative care patient. Family and social history: former smoker. Pertinent exam findings / vital signs include exquisite abdominal tenderness with rebound tenderness but no Arenas sign, labored respirations without hypoxia, appears frail and very weak toxic appearing, lungs CTA. Differential / pathologies of concern include sepsis, PNA, biliary colic, SBO, diverticulitis, infected renal stone, ACS, Viral Syndrome, Covid-19, COPD/CHF mixed etiology exacebration. Diagnostic studies of: -EKG, COVID-19 PCR, CRP, troponin I, CMP, lactate, lipase, magnesium, BNP, procalcitonin, CBC, ESR, x-ray chest, CT abdomen pelvis with contrast, US abdomen limited right upper quadrant, Blood Cx's. 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 -repeat lactate will be delayed due to delay in IV fluid administration -trop I negative -CRP negative -ESR WNL -Lipase neg -Procalcitonin <0.1 -Magnesium 1.2, repleting IV -SCr 1.4 -CBC shows leukopenia of 3.86, ANC WNL -Covid-19 negative -CXR shows no major infiltrate or pneumonia, question of fluid in the major fissure -CT ABD/Pelvis w Contrast shows extensive diverticulosis to the entire left side of the colon with some mild streaking and left paracolic gutter which cannot rule out diverticulitis, there is no abscess or free air, no evidence of appendicitis or SBO, there was a question of possible gallstone in the gallbladder neck and ultrasound of the right upper quadrant was recommended for possible choledocholithiasis -US ABD RUQ pending at time of sign-out Interventions of: -20mg IV Lasix, IV Ceftriaxone & Metronidazole to cover empiric respiratory source & GI source of likely sepsis. -Famotidine & zofran IV, Tylenol and Toradol. ED Course/Assessment/Plan: Patient presents with likely sepsis with an initial lactate of 4.1 with a question of GI source versus respiratory source, there is possibility of a diverticulitis on his CT abdomen as well as a possible embedded gallbladder stone in the gallbladder neck being evaluated by ultrasound. The patient has not shown signs of overt hypoxemic respiratory failure but not has not been ambulated at this time. He had significant delay in administration of IV fluids despite ordered IV fluids. This will delay his repeat lactate for definitive sepsis ruling while he obtains necessary imaging studies. Signed out to oncoming provider pending admission for likely sepsis of GI origin. Disposition of Sepsis. Patient verbalized understanding of the plan and return to ED criteria and engaged in shared decision making. Medical Records Medical records reviewed: Yes I reviewed the patient's medical records. Imaging Data Radiologic Study: Imaging: X-Ray Radiologist's impression: EXAM: XR CHEST 2V PA LATERAL CLINICAL HISTORY: SOB. TECHNIQUE: 2D digital imaging was performed. COMPARISON: CT CT ABDOMEN PELVIS WO from 03/05/2023 CR XR CHEST 2V PA LATERAL from 08/02/2023 FINDINGS: 2 views: Heart size is normal. The mediastinum is not widened. No infiltrates nor pleural effusions. No pulmonary edema. On the lateral view there appears to be slight thickening of the major fissure. This may indicate some fluid therein. IMPRESSION: No acute pulmonary findings.Possible fluid in the major fissure seen on the lateral view. No associated obvious pleural effusions. Radiologic Study #2: Imaging: CT Scan Radiologist's impression: EXAM: CT ABDOMEN PELVIS W CLINICAL HISTORY: ABD pain, vomiting, RLQ tenderness. TECHNIQUE: Imaging Protocol: Axial computed tomography images with coronal and sagittal reformatted images were created and reviewed CONTRAST MATERIAL: Intravenous: Omnipaque-350 100cc Oral: None COMPARISON: CT CT ABDOMEN PELVIS WO from 03/05/2023 FINDINGS: VISUALIZED LUNG BASES: No nodules nor pleural effusions evident. ABDOMEN: There is no ascites. LIVER: 2 small sub cm benign-appearing hypodensities left hepatic lobe are noted and another slightly larger probable cyst is noted in the medial aspect of the right hepatic lobe, this measuring 1 cm, unchanged. No new focal hepatic lesions. No dilated intrahepatic ducts. GALLBLADDER/BILIARY: There is a subtle suggestion of a possible 9 millimeter gallstone in the gallbladder neck, noncalcified. Gallbladder is mildly distended but not grossly edematous. There is no pericholecystic fluid. CBD is not dilated. PANCREAS: No evidence of pancreatic mass nor dilatation of the pancreatic duct. SPLEEN: Spleen is not enlarged. No obvious intrasplenic lesions. Splenic and portal veins are patent. ADRENALS: There are no significant adrenal masses. KIDNEYS:No new focal 5 the kidneys. No calculi. No hydronephrosis nor hydroureter. No solid renal masses. No calculi nor hydronephrosis.. ABDOMINAL AORTA: Calcified but not enlarged. Common iliac arteries also calcified but not enlarged. LYMPH NODES:There is no retroperitoneal nor paraaortic adenopathy. ABDOMINAL WALL: No evidence of significant anterior abdominal wall nor inguinal hernia. GI: There is no evidence of bowel obstruction, free air, nor abscess. There is extensive diverticulosis in left side of the colon. Mild streaking adjacent a few diverticuli in the upper left iliac fossa may indicate subtle diverticulitis. There is no abscess. PELVIS: GI: No evidence of appendicitis. LYMPH NODES: There is no intrapelvic nor inguinal adenopathy. REPRODUCTIVE: Prostate gland mildly enlarged. Partially calcified. Seminal vesicles unremarkable. URINARY BLADDER: Urinary bladder is distended, measuring 15 cm cephalocaudal by 9 cm wide by 6 cm AP. No obvious mass nor radiopaque calculi seen in the bladder. No diverticuli. OSSEOUS: No fractures and no significant osseous lesions. Multilevel degenerative disc disease. IMPRESSION: 1. There is extensive diverticulosis of the entire left side of the colon very mild mesenteric streaking is noted in the left paracolic gutter which may indicate very subtle diverticulitis. No free air nor abscess. There is no evidence of appendicitis. 2. Urinary bladder is significantly distended. No obvious bladder mass nor diverticuli. The prostate is slightly enlarged. 3. On 1 axial image there is a subtle suggestion for possible noncalcified gallstone. Gallbladder slightly distended. If clinically indicated ultrasound the gallbladder can be performed. 4. Distended urinary bladder. Report called by myself to ER physician. Lab Data Lab results reviewed: Yes I reviewed the patient's lab results. HPI General Date/Time Provider Initiated Documentation: 08/29/23 09:51. HPI Narrative: 78 year-old male presents to ED today by EMS with a chief complaint of feeling really sick for the past 3 days, nausea with retching, coughing, shortness of breath, inability to climb just a few stairs, body aches all over. Quality described as generalized malaise, denies productive cough, endorses shortness of breath with even mild exertion, denies active chest pain, endorses severe nausea without intractable projectile vomiting, poor p.o. intake endorsed, denies significant bowel or urinary changes, no radiation to syncope, hemoptysis, high fever, black stools. Severity is described as 9/10. Palliating factors include nothing specific attempted- tried waiting it out at home, but felt he was getting more sick so he called 911. Provoking factors include nothing specific, no sick contacts. Patient not anticoagulated. Related Data Home Medications Medication Instructions Recorded Confirmed nitroglycerin 0.4 mg sublingual 0.4 mg sublingual Q5M PRN 11/24/20 08/29/23 tablet atorvastatin 40 mg tablet 40 mg PO QHS #90 tabs 09/27/22 08/29/23 fluticasone fur. 100 mcg-umeclid 1 inh inhalation Q24H #60 ea 04/18/23 08/29/23 62.5 mcg-vilant 25 mcg inhalat.powder (Trelegy Ellipta) levalbuterol tartrate 45 1 - 2 puff inhalation Q4H #15 grams 04/18/23 08/29/23 mcg/actuation aerosol inhaler magnesium chloride 64 mg 64 mg PO DAILY AM #90 tabs 04/18/23 08/29/23 (magnesium chloride) tablet pantoprazole 40 mg tablet,delayed 40 mg PO DAILY AM #90 tabs 04/18/23 08/29/23 release tamsulosin 0.4 mg capsule 0.8 mg (2 x 0.4 mg) PO DAILY #180 04/18/23 08/29/23 caps loratadine 10 mg tablet 10 mg PO DAILY #90 tabs 04/22/23 08/29/23 ibuprofen 600 mg tablet 600 mg PO BID PRN pain #12 tabs 06/19/23 08/29/23 Previous Rx's Medication Instructions Recorded atorvastatin 40 mg tablet 40 mg PO QHS #90 tabs 09/27/22 fluticasone fur. 100 mcg-umeclid 1 inh inhalation Q24H #60 ea 04/18/23 62.5 mcg-vilant 25 mcg inhalat.powder (Trelegy Ellipta) levalbuterol tartrate 45 1 - 2 puff inhalation Q4H #15 grams 04/18/23 mcg/actuation aerosol inhaler magnesium chloride 64 mg 64 mg PO DAILY AM #90 tabs 04/18/23 (magnesium chloride) tablet pantoprazole 40 mg tablet,delayed 40 mg PO DAILY AM #90 tabs 04/18/23 release tamsulosin 0.4 mg capsule 0.8 mg (2 x 0.4 mg) PO DAILY #180 04/18/23 caps loratadine 10 mg tablet 10 mg PO DAILY #90 tabs 04/22/23 ibuprofen 600 mg tablet 600 mg PO BID PRN pain #12 tabs 06/19/23 Allergies Allergy/AdvReac Type Severity Reaction Status Date / Time bupropion AdvReac Severe seizures Verified 08/29/23 09:54 General Stated Complaint: GenMedical JENNA: 3 Review of Systems All systems reviewed & are unremarkable except as noted in HPI and below PFSH All Active Problems (Updated 08/03/23 @ 09:06 by Luci Ignacio MD) Acute alcohol intoxication (Acute) Impaired gait and mobility (Acute ~03/2023) Hyperlipidemia (Chronic) Tobacco abuse disorder (Acute) Cut down 1/2PPD Personal history of noncompliance with medical treatment and regimen (Chronic) Alcoholic liver disease (Chronic) Anemia (Chronic ~02/2022) S/P GI bleed CHF (congestive heart failure) (Chronic ~02/2023) ECHO 02/2022 LVEF 45-50% Depression (Chronic) Plans on getting connected to social work Tineo's esophagus (Chronic ~04/2019) ETOH; Upper endoscopy 03/2019 (see path report--no tineo's?, but 08/15/2019 surg note says +tieno's) Weakness (Acute) LE weakness; Home PT Urinary retention (Chronic) Dr. Ramos COPD (chronic obstructive pulmonary disease) (Chronic) Atrial fibrillation (Chronic) Paroxysmal per hospital records; not anticoagulated secondary to recurrent GI bleeds from chronic EtOH use Alcohol use disorder (Chronic) Medical History Acute upper gastrointestinal bleeding (~02/2022) Tineo's esophagus Depression Gastric ulcer GI bleed Gout Colchicine prevention Hematemesis Insomnia Palliative care patient [place] Radicular pain of right lower extremity Renal insufficiency Right knee pain Sleeping difficulty Melatonin RX Smoking hx Troponin level elevated UTI (urinary tract infection) Surgical History H/O esophagogastroduodenoscopy (~04/2019) [place] [facility] [place] w/ non-bleeding esophageal ulcer. Multiplle inflammatory appearing nodules at [facility] Social History Smoking/Tobacco Use Status: Current every day Tobacco Type: cigarettes Years smoked: 50 Smoking risk assessment performed?: Yes Alcohol Intake: current Alcohol Intake frequency: other Alcohol type: hard liquor Drug use: Never Substance use type: does not use Details: Pt has not had alcohol since being at the [facility]. 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 SKIN: Warm, pink, dry, intact, without rashes/lesions/ulcerations. HEAD: Normocephalic, atraumatic, normal hair distribution for gender/age. EYES: Pupils PERRLA, EOMs intact without nystagmus, normal conjunctiva, no exudates on lids/lashes. ENT: Nares patent, no circumoral cyanosis, no facial swelling NECK: Supple, trachea midline, painless cervical ROM. LUNGS/CHEST: Lungs -no overt rhonchi/rales/wheezes diffusely, labored respirations, normal A/P diameter, symmetrical expansion, no chest wall deformity HEART (CV/PV): Regular rate and rhythm without murmur, no peripheral edema, no JVD. ABDOMEN: Soft, non-distended, no guarding, exquisite abdominal tenderness, question focality in the lower abdomen, does endorse right upper quadrant tenderness, states he has exquisite tenderness to any palpation. MSK: Normal ROM, no swelling/deformity to bilateral UEs or LEs, moving all extremities without weakness, no cyanosis, spine midline without tenderness, normal curvature. NEURO: Mental Status AAOx4 - alert to person, place, time, events No facial droop, no forehead involvement. Motor: No focal weakness - strength 5/5 in bilateral UEs and LEs, proximal and distal, symmetric. Sensory: sensation intact to light touch globally. Gait normal: patient ambulated without ataxia into ED room. PSYCH: euthymic, cooperative, pleasant, appropriate speech Course 08/29/23 09:50 ED EKG Stat EKG Nursing/RT Intervention .STAT 08/29/23 09:58 Acetaminophen [Tylenol] 1,000 mg PO NOW ONE Ibuprofen [Motrin] 400 mg PO NOW ONE 08/29/23 10:00 Albuterol/Ipratropium [Duoneb Updraft] 3 ml UPD NOW ONE 08/29/23 10:09 Famotidine [Pepcid Injection] 20 mg IVP NOW ONE Ondansetron [Zofran Injection] 4 mg IVP NOW ONE 08/29/23 10:15 Normal Saline [Saline 1000ml Bag] 1,000 ml IV INFUSION 08/29/23 10:47 COVID-19 PCR ([facility]) [SERO] Stat 08/29/23 10:50 C-Reactive Protein Stat Cardiac Troponin I Stat Comprehensive Metabolic Panel Stat Lactate Stat Lipase Stat Magnesium Stat NT-proBNP Stat Procalcitonin Stat Complete Blood Count w/Diff [HEMO] Stat ESR [HEMO] Stat 08/29/23 11:09 Vital Signs .Q4H 08/29/23 11:10 Sepsis Order Stat 08/29/23 11:15 cefTRIAXone [Rocephin] 2 gm in 50 ml IVPB Q24H metroNIDAZOLE [Flagyl] 500 mg in 100 ml IVPB Q8H 08/29/23 11:42 XR chest 2V PA & lateral [RAD] Stat 08/29/23 11:54 Furosemide [Lasix] 20 mg IVP NOW ONE Magnesium Sulfate 2 gm in 50 ml IVPB NOW 08/29/23 12:30 Normal Saline [Saline 1000ml Bag] 1,000 ml IV INFUSION 08/29/23 13:06 Blood Culture ( Age => 10 Yrs) Stat 08/29/23 13:30 Iohexol [Omnipaque 350-Imaging package] 100 ml IJ DIRECTED Normal Saline - Diluent [Saline 50 ml diluent vial] 50 ml IJ .FOR DI USE 08/29/23 13:35 CT ABD & Pelvis With Contrast [CT abdomen & pelvis w] [CT] Stat 08/29/23 13:54 US abdomen limited [US] Stat Vital Signs Vital signs: Vital Signs Pulse 87 08/29/23 09:51 Blood Pressure 151/87 H 08/29/23 09:51 Pulse Oximetry 97 08/29/23 09:51 Pulse 87 08/29/23 09:51 Blood Pressure 151/87 H 08/29/23 09:51 Blood Pressure Position Sitting 08/29/23 09:51 Pulse Oximetry 97 08/29/23 09:51 Oxygen Delivery Method Room Air 08/29/23 09:51 Oxygen Flow Rate 0 08/29/23 09:51 Lab/Test Results Lab/Test Results: 08/29/23 10:10 Blood Blood Culture - Pending 08/29/23 10:10 Blood Blood Culture - Pending Sign Out Sign Out Data: Sign Out Comment: Initial lactate 4.1, delay in IV fluids, repeat lactate delayed. Likely sepsis. Question divertic without abscess/perf on CT, question fluid in lung fissue in setting of CHF. Question gallstone in gallbladder neck. US pending. Likely admit for sepsis Last updated by Santi Santizo PA at 08/29/23 15:49
[2023-08-29 11:01] LABS: Source Nasal/Nares
[2023-08-29] MEDS: Ondansetron 4 MG/2 ML VIAL IVP (11:06)
[2023-08-29] MEDS: Famotidine 20 MG/2 ML VIAL IVP (11:07)
[2023-08-29 11:08] LABS: Abs Immature Grans 0.03 10^3/uL (0.0-0.06); Absolute Basophil Count 0.08 10^3/uL (0.0-0.2); Absolute Monocyte Count 0.26 10^3/uL (0.1-0.8); Absolute Neutrophil Count 2.19 10^3/uL (1.2-6.7); Basophils % 2.1; Eosinophils % 2.6; HCT 36.2 % (40.0-50.0); HGB 10.5 g/dL (13.5-17.5); Immature Grans % 0.8; Lactate 4.1 mmol/L (0.6-1.4); Lymphocytes % 31.1; MCH 19.8 pg (27.0-33.0); MCV 68 fL (80-95); Monocytes % 6.7; Neutrophils % 56.7; Platelet Count 239 10^3/uL (130-400); RDW 24.2 % (11.8-14.1); WBC 3.86 10^3/uL (4.4-10.8)
[2023-08-29 11:09] LABS: ESR 13 mm/hr (0-20)
[2023-08-29] MEDS: Acetaminophen 500 MG TAB 1000 MG PO (11:12)
[2023-08-29] MEDS: Ibuprofen 400 MG TAB PO (11:12)
[2023-08-29 11:34] LABS: ALT 22 U/L (16-63); AST 40 U/L (15-37); Albumin 4.4 g/dL (3.4-5.0); Alkaline Phosphatase 76 U/L (46-116); Anion Gap 15.1 mmol/L (3-11); BUN 20 mg/dL (7-18); Bilirubin, Total 0.8 mg/dL (0.2-1.0); C-Reactive Protein 0.22 mg/dL (0.0-0.3); CO2 25.9 mmol/L (21.0-32.0); CREATININE 1.4 mg/dL (0.70-1.30); Calcium 9.1 mg/dL (8.5-10.1); Chloride 101 mmol/L (98-107); Estimated GFR 51.77 (mL/min/1.73m2); Glucose 76 mg/dL (74-106); Lipase 27 U/L (16-77); Magnesium 1.2 mg/dL (1.8-2.4); NT-proBNP 2445 pg/mL (<300); Potassium 4.8 mmol/L (3.5-5.1); Sodium 142 mmol/L (136-145); Total Protein 8.6 g/dL (6.4-8.2); Troponin I < 50 ng/L (<or=60)
--- NOTE | 2023-08-29 11:42 | DI.RAD_ITS ---
Exam(s) XR CHEST 2V PA LATERAL EXAM: XR CHEST 2V PA LATERAL CLINICAL HISTORY: SOB. TECHNIQUE: 2D digital imaging was performed. COMPARISON: CT CT ABDOMEN PELVIS WO from 03/05/2023 CR XR CHEST 2V PA LATERAL from 08/02/2023 FINDINGS: 2 views: Heart size is normal. The mediastinum is not widened. No infiltrates nor pleural effusions. No pulmonary edema. On the lateral view there appears to be s light thickening of the major fissure. This may indicate some fluid therein. IMPRESSION: No acute pulmonary findings.Possible fluid in the major fissure seen on the lateral view. No associa luis obvious pleural effusions. DATA REPOSITORY: RADIATION DOSE DELIVERED:
[2023-08-29 11:45] LABS: COVID-19 PCR Negative (Negative)
[2023-08-29] MEDS: cefTRIAXone 2 GM/50 ML BAG IVPB (11:46)
[2023-08-29] MEDS: Normal Saline 1,000 ML 150 ML IV (12:00)
[2023-08-29 12:22] LABS: Procalcitonin < 0.1 ng/mL
[2023-08-29] MEDS: Normal Saline - Diluent 50 ML VIAL IJ (13:27)
[2023-08-29] MEDS: Omnipaque 350 MG/ML 500 ML BTL-Imaging package 100 ML IJ (13:28)
--- NOTE | 2023-08-29 13:35 | DI.CT_ITS ---
Exam(s) CT ABDOMEN PELVIS W EXAM: CT ABDOMEN PELVIS W CLINICAL HISTORY: ABD pain, vomiting, RLQ tenderness. TECHNIQUE: Imaging Protocol: Axial computed tomography images with coronal and sagittal reformatted images were created and reviewed CONTRAST MATERIAL: Intravenous: Omnipaque-350 100cc Oral: None COMPARISON: CT CT ABDOMEN PELVIS WO from 03/05/2023 FINDINGS: VISUALIZED LUNG BASES: No nodules nor pleural effusions evident. ABDOMEN: There is no ascites. LIVER: 2 small sub cm benign-appearing hypodensities left hepatic lobe are noted and another slightly larger probable cyst is noted in the medial aspect of the right hepatic lobe, this measuring 1 cm, u nchanged. No new focal hepatic lesions. No dilated intrahepatic ducts. GALLBLADDER/BILIARY: There is a subtle suggestion of a possible 9 millimeter gallstone in the gallbla dder neck, noncalcified. Gallbladder is mildly distended but not grossly edematous. There is no per icholecystic fluid. CBD is not dilated. PANCREAS: No evidence of pancreatic mass nor dilatation of the pancreatic duct. SPLEEN: Spleen is not enlarged. No obvious intrasplenic lesions. Splenic and portal veins are paten t. ADRENALS: There are no significant adrenal masses. KIDNEYS:No new focal 5 the kidneys. No calculi. No hydronephrosis nor hydroureter. No solid renal masses. No calculi nor hydronephrosis.. ABDOMINAL AORTA: Calcified but not enlarged. Common iliac arteries also calcified but not enlarged. LYMPH NODES:There is no retroperitoneal nor paraaortic adenopathy. ABDOMINAL WALL: No evidence of significant anterior abdominal wall nor inguinal hernia. GI: There is no evidence of bowel obstruction, free air, nor abscess. There is extensive diverticulosis in left side of the colon. Mild streaking adjacent a few diverticu li in the upper left iliac fossa may indicate subtle diverticulitis. There is no abscess. PELVIS: GI: No evidence of appendicitis. LYMPH NODES: There is no intrapelvic nor inguinal adenopathy. REPRODUCTIVE: Prostate gland mildly enlarged. Partially calcified. Seminal vesicles unremarkable. URINARY BLADDER: Urinary bladder is distended, measuring 15 cm cephalocaudal by 9 cm wide by 6 cm AP. No obvious mass nor radiopaque calculi seen in the bladder. No diverticuli. OSSEOUS: No fractures and no significant osseous lesions. Multilevel degenerative disc disease. IMPRESSION: 1. There is extensive diverticulosis of the entire left side of the colon very mild mesenteric streak ing is noted in the left paracolic gutter which may indicate very subtle diverticulitis. No free air nor abscess. There is no evidence of appendicitis. 2. Urinary bladder is significantly distended. No obvious bladder mass nor diverticuli. The prostate is slightly enlarged. 3. On 1 axial image there is a subtle suggestion for possible noncalcified gallstone. Gallbladder sl ightly distended. If clinically indicated ultrasound the gallbladder can be performed. 4. Distended urinary bladder. Report called by myself to ER physician. RADIATION DOSE DELIVERED: Total DLP DATA REPOSITORY: All CT scans at this facility are submitted to the National Radiology Data Registry (NRDR) Dose Index Registry (DIR) with the [employer] (ACR). RADIATION OPTIMIZATION: All CT scans at this facility use at least one of these dose optimization te chniques: automated exposure control; mA and/or kV adjustment per patient size (includes targeted exa ms where dose is matched to clinical indication); or iterative reconstruction.
--- NOTE | 2023-08-29 13:45 | DI.US_ITS ---
Exam(s) US ABDOMEN LIMITED EXAM: US ABDOMEN LIMITED CLINICAL HISTORY: RUQ study- possible stone in gall bladder neck TECHNIQUE: Ultrasound abdomen performed using standard protocol. COMPARISON: US US ABDOMEN from 07/20/2022 FINDINGS: There is no ascites evident. LIVER: Small benign cysts are noted, as evident on the recent CT scan. GALLBLADDER/BILIARY: There are no gallstones. No gallbladder wall edema nor pericholecystic fluid. The common hepatic duct isnot dilated, measuring 4-5mm at the level of venancio hepatis. PANCREAS: There is no evidence of pancreatic mass nor dilatation of the pancreatic duct. RIGHT KIDNEY:No evidence of solid mass, calculus, nor hydronephrosis. No cortical cysts evident. IMPRESSION: 1. No evidence of cholelithiasis nor dilatation of the biliary tree. 2. No other significant ultrasound findings in the right upper quadrant. 3. There is no ascites. DATA REPOSITORY:
[2023-08-29] MEDS: Furosemide 20 MG/2 ML VIAL IVP (13:48)
[2023-08-29] MEDS: metroNIDAZOLE 500 MG/100 ML BAG 100 MG IVPB (14:01)
[2023-08-29] MEDS: MAGNESIUM SULFATE 2 GM/50 ML BAG IVPB (15:51)
[2023-08-29] MEDS: Magnesium Oxide 400 MG TAB 800 MG PO (16:11)
[2023-08-29 16:38] LABS: Bilirubin Negative (Negative); Blood Negative (Negative); Clarity Clear (Clear); Glucose Negative (Negative); Ketones Negative (Negative); Leukocyte Esterase Negative (Negative); Nitrite Negative (Negative); Urobilinogen 0.2 mg/dL (Up to 0.2); pH 5.5 (5-8)
[2023-08-29 18:15] LABS: Lactate 4.4 mmol/L (0.6-1.4)
[2023-08-29 18:29] LABS: Lactate 4.2 mmol/L (0.6-1.4)
[2023-08-29] MEDS: Doxycycline Hyclate 100 MG CAP PO (19:10)
== END 2023-08-29 19:23 | disposition home or self-care (01) ==
PROVIDERS: Physician Assistant; Emergency Provider Physician Assistant; PCP Nurse Practitioner Adult Health
DX: R53.1 Weakness (principal); R69 Illness, unspecified; E86.0 Dehydration; E87.20 Acidosis, unspecified; F10.20 Alcohol dependence, uncomplicated; R10.9 Unspecified abdominal pain; R11.2 Nausea with vomiting, unspecified; R93.3 Abnormal findings on diagnostic imaging of other parts of digestive tract; Z79.899 Other long term (current) drug therapy; E78.5 Hyperlipidemia, unspecified; J44.9 Chronic obstructive pulmonary disease, unspecified; I50.9 Heart failure, unspecified
CPT/HCPCS: 80053; 83690; 84145; 85652; 87040; 87635; 93005; 94640; 96365; 96366; 96367; 96375; 99285; 71046; 74177; 76705; 81003; 83605; 83735; 83880; 84484; 85025; 86140; 93010; 99284; J1941; J2405

== ENCOUNTER 2024-01-27 11:41 | Emergency (ER) | payer OTHER, SELFPAY ==
[2024-01-27] VITALS (56 sets, daily range): BP systolic 108–195; BP diastolic 41–99; PULSE 67–104; RESP 10–24; TEMP 36.7; O2SAT 98–99
--- NOTE | 2024-01-27 11:30 | RT.EKG_ITS ---
APPROVED REPORT Exam: Resting ECG Reason for Exam: Chest Pain Patient Location: E HR:83 bpm ECG Measurements Heart Rate 83 AXIS OK [id number] P [id number] QRSd 89 QRS 73 QT 392 T 68 QTc 462 Conclusion Atrial fibrillation...V-rate 61- 95, irreg A-activity Ventricular premature complex...V complex w/ short R-R interval Low voltage, extremity leads...all extremity leads <0.5mV
[2024-01-27 12:17] LABS: Abs Immature Grans 0.02 10^3/uL (0.0-0.06); Absolute Basophil Count 0.07 10^3/uL (0.0-0.2); Absolute Eosinophil Count 0.14 10^3/uL (0.0-0.7); Absolute Monocyte Count 0.34 10^3/uL (0.1-0.8); Absolute Neutrophil Count 1.81 10^3/uL (1.2-6.7); Basophils % 1.8; Eosinophils % 3.6; HCT 34.1 % (40.0-50.0); HGB 9.6 g/dL (13.5-17.5); Immature Grans % 0.5; Lymphocytes % 38.7; MCH 20.1 pg (27.0-33.0); MCHC 28.2 % (32.0-36.0); MPV 9.3 fL (8.0-11.0); Monocytes % 8.8; Neutrophils % 46.6; Platelet Count 270 10^3/uL (130-400); RBC 4.78 10^6/uL (4.36-5.78); RDW 19.4 % (11.8-14.1); RDW-SD 49.2 fL; WBC 3.88 10^3/uL (4.4-10.8)
[2024-01-27 12:29] LABS: MCV 71 fL (80-95)
[2024-01-27 13:02] LABS: ALT 16 U/L (16-63); AST 19 U/L (15-37); Albumin 3.8 g/dL (3.4-5.0); Alkaline Phosphatase 55 U/L (46-116); Anion Gap 14.5 mmol/L (3-11); BUN 30 mg/dL (7-18); Bilirubin, Total 0.4 mg/dL (0.2-1.0); CO2 24.5 mmol/L (21.0-32.0); CREATININE 1.4 mg/dL (0.70-1.30); Calcium 8.7 mg/dL (8.5-10.1); Chloride 107 mmol/L (98-107); Estimated GFR 51.77 (mL/min/1.73m2); Glucose 74 mg/dL (74-106); Magnesium 1.3 mg/dL (1.8-2.4); NT-proBNP 1953 pg/mL (<300); Potassium 4.1 mmol/L (3.5-5.1); Sodium 146 mmol/L (136-145); Total Protein 7.4 g/dL (6.4-8.2); Troponin I < 50 ng/L (< or =60)
--- NOTE | 2024-01-27 14:00 | DI.RAD_ITS ---
Exam(s) XR PORTABLE CHEST AP EXAM: XR PORTABLE CHEST AP CLINICAL HISTORY: shortness of breath. TECHNIQUE: 2D digital imaging was performed. COMPARISON: CR XR CHEST 2V PA LATERAL from 08/29/2023 FINDINGS: Single AP portable view. Heart size is upper normal. The mediastinum is not widened. Lungs clear. There is very subtle increased density behind the left side of the heart but without ob vious air bronchograms. No other pulmonary findings. No pleural effusions. No pneumothorax. No fr actures. IMPRESSION: Mild increased density in left lower lobe retrocardiac region probably normal. Recommend nonportable PA and lateral views when clinically possible. DATA REPOSITORY: RADIATION DOSE DELIVERED:
[2024-01-27] MEDS: THIAMINE 100 MG in Normal Saline 100 ML 200 MG IVPB (14:41)
[2024-01-27] MEDS: MAGNESIUM SULFATE 2 GM/50 ML BAG IVINF (15:25)
--- NOTE | 2024-01-27 15:43 | ED.GENADUL_ITS ---
Discharge Plan Disposition Patient Disposition: Home Condition: Stable Discharge Details Clinical Impression: Hypomagnesemia, Dyspnea on exertion, Generalized weakness, Incidental pulmonary nodule Primary Care Provider: Desirae Panda ED Provider: Tim Cassidy Home Meds and New Rx's Prescriptions: Continued atorvastatin 40 mg tablet 40 mg PO QHS Qty: 90 3RF levalbuterol tartrate 45 mcg/actuation HFA aerosol inhaler 1 - 2 puff INHALATION Q4H Qty: 15 3RF Rx Instructions: RESCUE INHALER 03/2023: PLEASE DELIVER (PT CANNOT [employer]) magnesium chloride 64 mg magnesium tablet 64 mg PO DAILY AM Qty: 90 3RF Rx Instructions: LOW MAGNESIUM pantoprazole 40 mg tablet,delayed release (DR/EC) 40 mg PO DAILY AM Qty: 90 3RF Rx Instructions: GI bleed tamsulosin 0.4 mg capsule 0.8 mg PO DAILY Qty: 180 3RF Rx Instructions: BPH/help urinate nitroglycerin 0.4 mg tablet, sublingual 0.4 mg sublingual Q5M PRN Rx Instructions: do not exceed 3 doses per episode loratadine 10 mg tablet 10 mg PO DAILY Qty: 90 3RF Rx Instructions: COPD, allergies, itchy nose & eyes, nasal drip ibuprofen 600 mg tablet 600 mg PO BID PRN (Reason: pain) Qty: 12 0RF Rx Instructions: Foot/toe pain. Take with food. doxycycline hyclate 100 mg capsule 100 mg PO BID Qty: 14 0RF metoclopramide HCl [Reglan] 10 mg tablet 10 mg PO Q6H PRNQty: 20 0RF Discharge Instructions Instructions: Weakness (ED), Dyspnea (ED), Hypomagnesemia (ED) Additional Instructions: Please take medication as prescribed. Please contact your primary care physician to arrange follow-up. Patient will discuss pulmonary nodule seen on x-ray. Return to the ER immediately for any worsening or new concerning symptoms. Referrals: Desirae Panda, FUNDRAISING DIRECTOR [Primary Care Provider] - [facility] General Mode of arrival: EMS . Date/Time Provider Initiated Documentation: 01/27/24 11:52 . Limitations to Documentation: no limitations . Information obtained by: patient . HPI Narrative: 78-year-old male with history of impaired gait and mobility, hyperlipidemia, tobacco use disorder, alcoholic liver disease, CHF, hypomagnesemia, COPD, atrial fibrillation, alcohol use disorder, history of noncompliance with medication, he re today with generalized weakness. Patient notes increased generalized weakness over the past 1 month. He has associated chest discomfort and shortness of breath over the past 1 month. Patient does note he has not been taking his medication as prescribed. Related Data Home Medications Medication Instructions Recorded Confirmed nitroglycerin 0.4 mg sublingual 0.4 mg sublingual Q5M PRN 11/24/20 01/27/24 tablet atorvastatin 40 mg tablet 40 mg PO QHS #90 tabs 09/27/22 01/27/24 levalbuterol tartrate 45 1 - 2 puff inhalation Q4H #15 grams 04/18/23 01/27/24 mcg/actuation aerosol inhaler magnesium chloride 64 mg 64 mg PO DAILY AM #90 tabs 04/18/23 01/27/24 (magnesium chloride) tablet pantoprazole 40 mg tablet,delayed 40 mg PO DAILY AM #90 tabs 04/18/23 01/27/24 release tamsulosin 0.4 mg capsule 0.8 mg (2 x 0.4 mg) PO DAILY #180 04/18/23 01/27/24 caps loratadine 10 mg tablet 10 mg PO DAILY #90 tabs 04/22/23 01/27/24 ibuprofen 600 mg tablet 600 mg PO BID PRN pain #12 tabs 06/19/23 01/27/24 doxycycline hyclate 100 mg capsule 100 mg PO BID #14 caps 08/29/23 01/27/24 metoclopramide HCl 10 mg tablet 10 mg PO Q6H PRN #20 tabs 08/29/23 01/27/24 (Reglan) Previous Rx's Medication Instructions Recorded atorvastatin 40 mg tablet 40 mg PO QHS #90 tabs 09/27/22 levalbuterol tartrate 45 1 - 2 puff inhalation Q4H #15 grams 04/18/23 mcg/actuation aerosol inhaler magnesium chloride 64 mg 64 mg PO DAILY AM #90 tabs 04/18/23 (magnesium chloride) tablet pantoprazole 40 mg tablet,delayed 40 mg PO DAILY AM #90 tabs 04/18/23 release tamsulosin 0.4 mg capsule 0.8 mg (2 x 0.4 mg) PO DAILY #180 04/18/23 caps loratadine 10 mg tablet 10 mg PO DAILY #90 tabs 04/22/23 ibuprofen 600 mg tablet 600 mg PO BID PRN pain #12 tabs 06/19/23 doxycycline hyclate 100 mg capsule 100 mg PO BID #14 caps 08/29/23 metoclopramide HCl 10 mg tablet 10 mg PO Q6H PRN #20 tabs 08/29/23 (Reglan) Allergies Allergy/AdvReac Type Severity Reaction Status Date / Time bupropion AdvReac Severe seizures Verified 01/27/24 13:02 General Stated Complaint: Chest Pain JENNA: 2 Exam Const General: cooperative and no acute distress HENMT Mouth: moist mucous membranes Eyes Conjunctivae: normal conjunctivae Sclera: normal sclerae Resp Auscultation: clear to auscultation bilaterally, no rales, no rhonchi and no wheezes Cardio Rate: regular rate and not tachycardic Rhythm: regular rhythm GI Palpation: soft, not firm, no guarding, no masses, not rigid and nontender Skin General skin exam: no rashes or lesions noted Neuro General: patient alert, patient awake, patient oriented x3 and tone normal Cognition: normal cognition Speech: speech normal Extrem General: no edema Psych Appearance: grossly normal Affect: anxious affect Course Vital Signs Vital signs: Vital Signs Temperature 36.7 C 01/27/24 11:33 Pulse 84 01/27/24 11:33 Respiratory Rate 22 01/27/24 11:33 Blood Pressure 156/91 H 01/27/24 11:33 Pulse Oximetry 98 01/27/24 11:33 Temperature 36.7 C 01/27/24 11:33 Temperature Source Skin 01/27/24 11:33 Pulse 84 01/27/24 13:01 Pulse 75 01/27/24 13:01 Respiratory Rate 22 01/27/24 13:01 Respiratory Effort Normal 01/27/24 11:40 Respiratory Depth Normal 01/27/24 11:40 Respiratory Pattern Normal 01/27/24 11:40 Blood Pressure 134/82 01/27/24 13:01 Blood Pressure Mean 100 01/27/24 13:01 Blood Pressure Position Sitting 01/27/24 11:33 Pulse Oximetry 98 01/27/24 11:33 Oxygen Delivery Method Room Air 01/27/24 11:33 Oxygen Flow Rate 0 01/27/24 11:33 Pain Level 0 01/27/24 11:33 Lab/Test Results Lab/Test Results: Laboratory Tests Range/Units 01/27/24 12:00 WBC (4.4-10.8) 10^3/uL 3.88 L RBC (4.36-5.78) 10^6/uL 4.78 Hgb (13.5-17.5) g/dL 9.6 L Hct (40.0-50.0) % 34.1 L MCV (80-95) fL 71 L MCH (27.0-33.0) pg 20.1 L MCHC (32.0-36.0) % 28.2 L RDW (11.8-14.1) % 19.4 H Plt Count (130-400) 10^3/uL 270 MPV (8.0-11.0) fL 9.3 Immature Gran % 0.5 Neutrophils % 46.6 Lymphocytes % 38.7 Monocytes % 8.8 Eosinophils % 3.6 Basophils % 1.8 Nucleated RBC % (0.0-0.3) % 0.0 Absolute Neutrophils (1.2-6.7) 10^3/uL 1.81 Absolute Lymphocytes (1.2-3.4) 10^3/uL 1.50 Absolute Monocytes (0.1-0.8) 10^3/uL 0.34 Absolute Eosinophils (0.0-0.7) 10^3/uL 0.14 Absolute Basophils (0.0-0.2) 10^3/uL 0.07 Sodium (136-145) mmol/L 146 H Potassium (3.5-5.1) mmol/L 4.1 Chloride (98-107) mmol/L 107 Carbon Dioxide (21.0-32.0) mmol/L 24.5 Anion Gap (3-11) mmol/L 14.5 H BUN (7-18) mg/dL 30 H Creatinine (0.70-1.30) mg/dL 1.4 H Est GFR (CKD-EPI 2020) (mL/min/1.73m2) 51.77 Glucose (74-106) mg/dL 74 Calcium (8.5-10.1) mg/dL 8.7 Magnesium (1.8-2.4) mg/dL 1.3 L Total Bilirubin (0.2-1.0) mg/dL 0.4 AST (15-37) U/L 19 ALT (16-63) U/L 16 Alkaline Phosphatase (46-116) U/L 55 Troponin I (< or =60) ng/L < 50 NT-Pro-B Natriuret Pep (<300) pg/mL 1953 H Total Protein (6.4-8.2) g/dL 7.4 Albumin (3.4-5.0) g/dL 3.8 Medical Decision Making 1554 --78-year-old male with multiple medical problems, here with generalized weakness, dyspnea on exertion and chest discomfort with exertion over the past 1 month. Patient is hemodynamically stable. He is neurologically intact. Patient is anxious. EKG was reviewed and interpreted by me: Please report, sinus rhythm 82 bpm, left axis deviation, nondiagnostic. Screening labs reviewed and hypomagnesemia noted. I reviewed this with the patient he notes he has not been taking his supplemental magnesium as prescribed. I suspect this is the etiology for his symptoms today. I will give magnesium 2 g IV. He does have mild elevation of BNP which has been elevated in the past. Anemia noted -this is chronic. I considered CHF, he has no signs of volume overload on exam, chest x-ray was reviewed and interpreted by radiology: Mild increased density in left lower lobe retrocardiac region probably normal. Recommend nonportable PA and lateral views when clinically possible. Will obtain additional x-ray imaging recommended by radiology. Plan to reassess after magnesium IV. Will also provide thiamine supplementation IV. 1740 --PA and lateral chest x-ray interpreted by radiology: No retrocardiac opacity seen on lateral. Incidental pulmonary nodule versus soft tissue finding noted. Delta troponin negative. Patient was given magnesium 2 g IV. Plan for discharge with close outpatient follow-up. Disposition decision was made weighing the risks and benefits of hospitalization versus outpatient treatment, the risk for further decompensation, and the patient's wishes. The patient was stable and requested discharge. Prior to discharge, my usual and customary return precautions were reviewed with the patient - this included follow-up instructions and reason to return to the emergency department if condition worsens, does not improve as expected, or other new concerns arise. Lab Data Lab results reviewed: Yes I reviewed the patient's lab results. Labs: Laboratory Tests Range/Units 01/27/24 01/27/24 12:00 15:17 WBC (4.4-10.8) 10^3/uL 3.88 L RBC (4.36-5.78) 10^6/uL 4.78 Hgb (13.5-17.5) g/dL 9.6 L Hct (40.0-50.0) % 34.1 L MCV (80-95) fL 71 L MCH (27.0-33.0) pg 20.1 L MCHC (32.0-36.0) % 28.2 L RDW (11.8-14.1) % 19.4 H Plt Count (130-400) 10^3/uL 270 MPV (8.0-11.0) fL 9.3 Immature Gran % 0.5 Neutrophils % 46.6 Lymphocytes % 38.7 Monocytes % 8.8 Eosinophils % 3.6 Basophils % 1.8 Nucleated RBC % (0.0-0.3) % 0.0 Absolute Neutrophils (1.2-6.7) 10^3/uL 1.81 Absolute Lymphocytes (1.2-3.4) 10^3/uL 1.50 Absolute Monocytes (0.1-0.8) 10^3/uL 0.34 Absolute Eosinophils (0.0-0.7) 10^3/uL 0.14 Absolute Basophils (0.0-0.2) 10^3/uL 0.07 Sodium (136-145) mmol/L 146 H Potassium (3.5-5.1) mmol/L 4.1 Chloride (98-107) mmol/L 107 Carbon Dioxide (21.0-32.0) mmol/L 24.5 Anion Gap (3-11) mmol/L 14.5 H BUN (7-18) mg/dL 30 H Creatinine (0.70-1.30) mg/dL 1.4 H Est GFR (CKD-EPI 2020) (mL/min/1.73m2) 51.77 Glucose (74-106) mg/dL 74 Calcium (8.5-10.1) mg/dL 8.7 Magnesium (1.8-2.4) mg/dL 1.3 L Total Bilirubin (0.2-1.0) mg/dL 0.4 AST (15-37) U/L 19 ALT (16-63) U/L 16 Alkaline Phosphatase (46-116) U/L 55 Troponin I (< or =60) ng/L < 50 < 50 NT-Pro-B Natriuret Pep (<300) pg/mL 3 H Total Protein (6.4-8.2) g/dL 7.4 Albumin (3.4-5.0) g/dL 3.8 Anemia noted Quality:[facility] Health Related Social Needs: No Data to Display PFSH All Active Problems (Updated 01/27/24 @ 17:45 by Tim Cassidy MD) Hypomagnesemia (Acute) Incidental pulmonary nodule (Acute) Generalized weakness (Acute) Dyspnea on exertion (Acute) Impaired gait and mobility (Acute ~03/2023) Hyperlipidemia (Chronic) Tobacco abuse disorder (Acute) Cut down 12PPD Personal history of noncompliance with medical treatment and regimen (Chronic) Alcoholic liver disease (Chronic) Anemia (Chronic ~02/2022) S/P GI bleed CHF (congestive heart failure) (Chronic ~02/2023) ECHO 02/2022 LVEF 45-50% Depression (Chronic) Plans on getting connected to social work Tineo's esophagus (Chronic ~04/2019) ETOH; Upper endoscopy 03/2019 (see path report--no tineo's?, but 08/15/2019 surg note says +tineo's) Weakness (Acute) LE weakness; Home PT Urinary retention (Chronic) Dr. Ramos COPD (chronic obstructive pulmonary disease) (Chronic) Atrial fibrillation (Chronic) Paroxysmal per hospital records; not anticoagulated secondary to recurrent GI bleeds from chronic EtOH use Alcohol use disorder (Chronic) Medical History Acute upper gastrointestinal bleeding (~02/2022) Gastric ulcer Troponin level elevated Gout Colchicine prevention Sleeping difficulty Melatonin RX Palliative care patient [place] Insomnia Radicular pain of right lower extremity GI bleed Tineo's esophagus Right knee pain UTI (urinary tract infection) Hematemesis Depression Renal insufficiency Smoking hx Surgical History H/O esophagogastroduodenoscopy (~04/2019) Repeat on 10/26/20 [facility] severe reflux esophagitis w/ non-bleeding esophageal ulcer. Multiplle inflammatory appearing nodules at [facility] Social History Smoking/Tobacco Use Status: Current every day Tobacco Type: cigarettes Years smoked: 50 Smoking risk assessment performed?: Yes Alcohol Intake: current Alcohol Intake frequency: other Alcohol type: hard liquor Drug use: Never Substance use type: does not use Details: Pt has not had alcohol since being at the [facility]. Housing: apartment Do you need help understanding health information?: Rarely current occupation: [employer] - (served as [employer]) What type of physical activity do you participate in: none Do you feel safe at home: Yes Do you feel safe in your relationship?: Yes PAWSS Have you Been Recently Intoxicated or Drunk Within the Last 30 days?: Yes Have you Ever Experienced Previous Episodes of Alcohol Withdrawal?: Yes Have you ever Experienced Withdrawal Seizures?: No Have you ever Experienced Delirium Tremens(DT)s?: No Have you ever undergone Alcohol Rehabilitation Treatment (i.e, inpt ot outpatient treatment programs)?: Yes Have you ever Experienced Blackouts?: No Have you ever Combined Alcohol with other Downers within the last 90 days?: No Have you ever Combined Alcohol with any other Substance of Abuse during the last 90 days?: No Positive Blood Alcohol level on Presentation? [PCS.BAL]: Yes Evidence of Increased Autonomic Activity (i.e. HR>120, tremor, sweating, agitation, nausea)?: No Result: 4
[2024-01-27 15:45] LABS: Troponin I < 50 ng/L (< or =60)
--- NOTE | 2024-01-27 17:38 | DI.RAD_ITS ---
Exam(s) XR CHEST 2V PA LATERAL EXAM: XR CHEST 2V PA LATERAL CLINICAL HISTORY: see portable xray, sob TECHNIQUE: 2D digital imaging was performed of the chest. Two images were obtained. PA and lateral views were obtained. COMPARISON: CR XR CHEST 2V PA LATERAL from 08/29/2023 CR XR PORTABLE CHEST AP from 01/27/2024 FINDINGS: MEDIASTINUM: Normal. HEART: Normal. PULMONARY VASCULATURE: Normal. LUNGS: No evidence of a retrocardiac infiltrate is seen. The lungs are clear. Nipple shadows are se en. PLEURAL SPACE: No pleural effusion or pneumothorax. BONE:Within normal limits for the patient's age. OTHER FINDINGS:Normal. IMPRESSION: No acute pulmonary findings. DATA REPOSITORY: RADIATION DOSE DELIVERED:
== END 2024-01-27 17:55 | disposition home or self-care (01) ==
PROVIDERS: Emergency Provider Student in an Organized Health Care Education/Training Program; PCP Nurse Practitioner Adult Health
DX: E83.42 Hypomagnesemia (principal); R06.09 Other forms of dyspnea; R53.1 Weakness; R91.1 Solitary pulmonary nodule; E78.5 Hyperlipidemia, unspecified; I50.9 Heart failure, unspecified; J44.9 Chronic obstructive pulmonary disease, unspecified; I48.0 Paroxysmal atrial fibrillation; K70.9 Alcoholic liver disease, unspecified; F17.210 Nicotine dependence, cigarettes, uncomplicated; Z91.128 Patient's intentional underdosing of medication regimen for other reason
CPT/HCPCS: 36415; 80053; 93005; 96365; 96366; 96367; 99284; 71045; 71046; 83735; 83880; 84484; 85025; 93010; J3411; J3475

== ENCOUNTER 2024-03-17 10:52 | Emergency (ER) | payer OTHER, SELFPAY ==
[2024-03-17] VITALS (15 sets, daily range): BP systolic 94–144; BP diastolic 54–78; PULSE 77–103; RESP 14–21; TEMP 37.2; O2SAT 95–99
--- NOTE | 2024-03-17 10:45 | RT.EKG_ITS ---
APPROVED REPORT Exam: Resting ECG Reason for Exam: weakness Patient Location: E HR:106 bpm ECG Measurements Heart Rate 106 AXIS MS [id number] P [id number] QRSd 77 QRS 90 QT 424 T 75 QTc 565 Conclusion Atrial fibrillation...V-rate 97-113, irreg A-activity Anteroseptal infarct, age indeterminate...Q >35mS, T neg, V1-V2 Prolonged QT interval...QTc >500mS
--- NOTE | 2024-03-17 11:00 | DI.CT_ITS ---
Exam(s) CT HEAD CERVICAL SPINE WO EXAM: CT HEAD CERVICAL SPINE WO CLINICAL HISTORY: fall, pain, weakness. TECHNIQUE: Imaging Protocol: Axial computed tomography images with coronal and sagittal reformatted images were created and reviewed COMPARISON: CT CT HEAD WO from 08/02/2023 FINDINGS: BRAIN: There are no skull fractures nor fluid in the visualized paranasal sinuses. Post inflammatory retent ion cysts again noted in the right maxillary sinus. There is no evidence of intracranial hemorrhage, mass effect, or shift of midline structures. There are no extra-axial fluid collections. The ventricles are not enlarged or shifted and there is no blo od within the ventricular system nor within the basal cisterns. Again noted is relatively symmetrical atrophy and some chronic small-vessel white matter ischemic per iventricular changes. CERVICAL SPINE: There is no evidence of fracture nor listhesis. No significant prevertebral soft tissue swelling. There is a E scoliosis convex left in the cervical spine. 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 There are multilevel degenerative changes in the facet joints but there does not appear to be facet malalignment. No significant osseous lesions evident. IMPRESSION: No acute intracranial findings on this noninfused CT scan of the brain.Chronic atrophy and chronic wh ite matter ischemic changes. No evidence of cervical spine fracture, malalignment, nor acute compromise of the cervical spinal can al. 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 Called by myself to ER physician RADIATION DOSE DELIVERED: 1,134.75mGy.cm Total DLP DATA REPOSITORY: All CT scans at this facility are submitted to the National Radiology Data Registry (NRDR) Dose Index Registry (DIR) with the [employer] (ACR). RADIATION OPTIMIZATION: All CT scans at this facility use at least one of these dose optimization te chniques: automated exposure control; mA and/or kV adjustment per patient size (includes targeted exa ms where dose is matched to clinical indication); or iterative reconstruction.
--- NOTE | 2024-03-17 11:17 | W.ED.GENAD ---
Discharge Plan Disposition Patient Disposition: Home Condition: Stable Discharge Details Clinical Impression: Anemia, Alcohol use disorder, Fall, Blunt trauma of multiple sites of trunk, Blunt head trauma Primary Care Provider: Desirae Panda ED Provider: Marquez Henning Home Meds and New Rx's Prescriptions: Continued atorvastatin 40 mg tablet 40 mg PO QHS Qty: 90 3RF levalbuterol tartrate 45 mcg/actuation HFA aerosol inhaler 1 - 2 puff INHALATION Q4H Qty: 15 3RF Rx Instructions: RESCUE INHALER 03/2023: PLEASE DELIVER (PT CANNOT APPLIED PSYCHOLOGY PROFESSOR) magnesium chloride 64 mg magnesium tablet 64 mg PO DAILY AM Qty: 90 3RF Rx Instructions: LOW MAGNESIUM pantoprazole 40 mg tablet,delayed release (DR/EC) 40 mg PO DAILY AM Qty: 90 3RF Rx Instructions: GI bleed tamsulosin 0.4 mg capsule 0.8 mg PO DAILY Qty: 180 3RF Patient Comments: takes sometimes Rx Instructions: BPH/help urinate loratadine 10 mg tablet 10 mg PO DAILY Qty: 90 3RF Rx Instructions: COPD, allergies, itchy nose & eyes, nasal drip ibuprofen 600 mg tablet 600 mg PO BID PRN (Reason: pain) Qty: 12 0RF Rx Instructions: Foot/toe pain. Take with food. metoclopramide HCl [Reglan] 10 mg tablet 10 mg PO Q6H PRNQty: 20 0RF Discharge Instructions Additional Instructions: Try to refrain from using alcohol Follow-up with your primary care provider within 1 to 2 weeks If you have new symptoms such as high fevers or persistent vomiting return to the emergency department or if you feel you are suffering from an emergent medical process HPI General Mode of arrival: EMS. Date/Time Provider Initiated Documentation: 03/17/24 11:05. Limitations to Documentation: no limitations. Information obtained by: patient. History of Present Illness 78 year old M presents to the emergency department with the chief complaint of fall, described as moderate, Quality is described as aching, Patient started experiencing this hour(s) (8) and it has been constant. No relieving factors improve symptom(s), No exacerbating factors reported . Patient notes weakness. Patient did receive the following treatments prior to arrival, none Related Data Home Medications Medication Instructions Recorded Confirmed atorvastatin 40 mg tablet 40 mg PO QHS #90 tabs 09/27/22 03/17/24 levalbuterol tartrate 45 1 - 2 puff inhalation Q4H #15 grams 04/18/23 03/17/24 mcg/actuation aerosol inhaler magnesium chloride 64 mg 64 mg PO DAILY AM #90 tabs 04/18/23 03/17/24 (magnesium chloride) tablet pantoprazole 40 mg tablet,delayed 40 mg PO DAILY AM #90 tabs 04/18/23 03/17/24 release tamsulosin 0.4 mg capsule 0.8 mg (2 x 0.4 mg) PO DAILY #180 04/18/23 03/17/24 caps loratadine 10 mg tablet 10 mg PO DAILY #90 tabs 04/22/23 03/17/24 ibuprofen 600 mg tablet 600 mg PO BID PRN pain #12 tabs 06/19/23 03/17/24 metoclopramide HCl 10 mg tablet 10 mg PO Q6H PRN #20 tabs 08/29/23 03/17/24 (Reglan) Previous Rx's Medication Instructions Recorded atorvastatin 40 mg tablet 40 mg PO QHS #90 tabs 09/27/22 levalbuterol tartrate 45 1 - 2 puff inhalation Q4H #15 grams 04/18/23 mcg/actuation aerosol inhaler magnesium chloride 64 mg 64 mg PO DAILY AM #90 tabs 04/18/23 (magnesium chloride) tablet pantoprazole 40 mg tablet,delayed 40 mg PO DAILY AM #90 tabs 04/18/23 release tamsulosin 0.4 mg capsule 0.8 mg (2 x 0.4 mg) PO DAILY #180 04/18/23 caps loratadine 10 mg tablet 10 mg PO DAILY #90 tabs 04/22/23 ibuprofen 600 mg tablet 600 mg PO BID PRN pain #12 tabs 06/19/23 metoclopramide HCl 10 mg tablet 10 mg PO Q6H PRN #20 tabs 08/29/23 (Reglan) Allergies Allergy/AdvReac Type Severity Reaction Status Date / Time bupropion AdvReac Severe seizures Verified 01/27/24 13:02 General Stated Complaint: GenMedical JENNA: 2 Review of Systems All systems reviewed & are unremarkable except as noted in HPI and below Constitutional Constitutional: Denies chills, Denies fever(s) and Reports weakness Cardiovascular Cardiovascular: Denies dyspnea Respiratory Respiratory: Reports cough and Denies dyspnea Gastrointestinal Gastrointestinal: Denies vomiting Genitourinary Genitourinary: Denies dysuria Integumentary/Breasts Skin/Breast: Denies rash Neurologic Neurologic: Reports weakness Exam Const Orientation: alert [facility] Head: normal to inspection Ears: external ears normal General nose exam: external nose normal Mouth: moist mucous membranes Eyes General: appearance normal, both eyes and all related structures Neck Neck: normal visual inspection Chest Chest: no crepitus Cardio Rate: regular rate GI Palpation: soft and tender Skin General skin exam: no rashes or lesions noted Neuro General: patient alert and patient oriented x3 Course Vital Signs Vital signs: Vital Signs Temperature 37.2 C 03/17/24 11:03 Pulse 103 H 03/17/24 11:03 Respiratory Rate 21 03/17/24 11:03 Blood Pressure 94/54 L 03/17/24 11:03 Pulse Oximetry 95 03/17/24 11:03 Temperature 37.2 C 03/17/24 11:03 Temperature Source Oral 03/17/24 11:03 Pulse 103 H 03/17/24 11:03 Respiratory Rate 21 03/17/24 11:03 Respiratory Effort Non-Labored 03/17/24 11:04 Blood Pressure 94/54 L 03/17/24 11:03 Pulse Oximetry 95 03/17/24 11:03 Oxygen Delivery Method Room Air 03/17/24 11:03 Oxygen Flow Rate 0 03/17/24 11:03 Medical Decision Making 78-year-old male with a history of COPD and continued smoker, A-fib not on anticoagulation, alcohol abuse, who comes in with EMS after he fell. He says that he been feeling weak for a few days and then today was smoking a cigarette after having some alcohol got lightheaded and fell over landing on his right side. He does not believe he lost consciousness. He is alert and oriented x 4 on arrival. He is complaining of a right-sided headache status post the fall, also has some right oblique and right chest pain since the fall. He has no focal neurological deficits. No midline C-spine tenderness. Abdomen is soft with some tenderness in the oblique area, has tenderness in the right mid axillary line over the fourth through sixth ribs. I suspect that his fall was from chronic deconditioning and alcohol abuse. Given his fall and pain in his head chest and abdomen after the fall we will proceed with CT head and C-spine, CT chest abdomen pelvis to evaluate for traumatic injuries and also obtain a CBC, CMP, EtOH level, troponin. Patient's labs show mild SAUL, anemia which is chronic, surprisingly clinically sober with a EtOH of 150. mag 1.1 and is chronically low, iv repletion given Imaging shows no acute findings. He is stable, is eating and drinking without issues, was able to use his walker at baseline. He does state that he has trouble getting out of his house and will likely need a lift assist. I said I do not have a acute reason to admit him to the hospital. I did offer to have him speak with care management about chcf options which he declined. I did stress that he try to refrain from drinking alcohol as this is likely contributing to most of his symptoms. He will follow-up with his PCP and return precautions given Differential Diagnosis Differential Diagnosis: Anemia, electrolyte abnormality, alcohol abuse, fracture Medical Records Medical records reviewed: Yes I reviewed the patient's medical records. Imaging Data Radiologic Study: Attestation: I personally reviewed and interpreted this imaging study as follows: Imaging: CT Scan Radiologist's impression: IMPRESSION: 1. No obvious acute significant trauma sequelae in the chest, abdomen, and pelvis. 2. Other findings as above. IMPRESSION: No acute intracranial findings on this noninfused CT scan of the brain.Chronic atrophy and chronic white matter ischemic changes. No evidence of cervical spine fracture, malalignment, nor acute compromise of the cervical spinal canal. 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 Lab Data Lab results reviewed: Yes I reviewed the patient's lab results. ECG Data Attestation: I personally reviewed and interpreted this ECG (s) as follows: Prior ECG tracings: available for review Interpretation: A-fib, rate of 106, no STEMI Quality:SDOH Health Related Social Needs: No Data to Display PFSH All Active Problems (Updated 03/17/24 @ 14:07 by Marquez Henning MD) Blunt head trauma (Acute) Blunt trauma of multiple sites of trunk (Acute) Fall (Acute) Impaired gait and mobility (Acute ~03/2023) Hyperlipidemia (Chronic) Tobacco abuse disorder (Acute) Cut down 1/2PPD Personal history of noncompliance with medical treatment and regimen (Chronic) Alcoholic liver disease (Chronic) Anemia (Chronic ~02/2022) S/P GI bleed CHF (congestive heart failure) (Chronic ~02/2023) ECHO 02/2022 LVEF 45-50% Depression (Chronic) Plans on getting connected to social work Tineo's esophagus (Chronic ~04/2019) ETOH; Upper endoscopy 03/2019 (see path report--no tineo's?, but 08/15/2019 surg note says +tineo's) Weakness (Acute) LE weakness; Home PT Urinary retention (Chronic) Dr. Ramos COPD (chronic obstructive pulmonary disease) (Chronic) Atrial fibrillation (Chronic) Paroxysmal per hospital records; not anticoagulated secondary to recurrent GI bleeds from chronic EtOH use Alcohol use disorder (Chronic) Medical History Acute upper gastrointestinal bleeding (~02/2022) Gastric ulcer Troponin level elevated Gout Colchicine prevention Sleeping difficulty Melatonin RX Palliative care patient [place] Insomnia Radicular pain of right lower extremity GI bleed Tineo's esophagus Right knee pain UTI (urinary tract infection) Hematemesis Depression Renal insufficiency Smoking hx Surgical History H/O esophagogastroduodenoscopy (~04/2019) Repeat on 10/26/20 [facility] [place] reflux esophagitis w/ non-bleeding esophageal ulcer. Multiplle inflammatory appearing nodules at [facility] Social History Smoking/Tobacco Use Status: Current every day Tobacco Type: cigarettes Years smoked: 50 Smoking risk assessment performed?: Yes Alcohol Intake: current Alcohol Intake frequency: other Alcohol type: hard liquor Drug use: Never Substance use type: does not use Details: Pt has not had alcohol since being at the [facility]. 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) What type of physical activity do you participate in: none Do you feel safe at home: Yes Do you feel safe in your relationship?: Yes PAWSS Have you Been Recently Intoxicated or Drunk Within the Last 30 days?: Yes Have you Ever Experienced Previous Episodes of Alcohol Withdrawal?: No Have you ever Experienced Withdrawal Seizures?: No Have you ever Experienced Delirium Tremens(DT)s?: No Have you ever undergone Alcohol Rehabilitation Treatment (i.e, inpt ot outpatient treatment programs)?: Yes Have you ever Experienced Blackouts?: No Have you ever Combined Alcohol with other Downers within the last 90 days?: No Have you ever Combined Alcohol with any other Substance of Abuse during the last 90 days?: No Positive Blood Alcohol level on Presentation? [PCS.BAL]: No Evidence of Increased Autonomic Activity (i.e. HR>120, tremor, sweating, agitation, nausea)?: No Result: 2
[2024-03-17] MEDS: Normal Saline 1,000 ML 1000 ML IV (11:29)
[2024-03-17 11:35] LABS: BE (Venous) -2 mmol/L (-2-3); HCO3 (Venous) 23 mmol/L (23-28); O2 Sat (Venous) 84 %; TCO2 (Venous) 22 mmol/L (24-29); pCO2 (Venous) 38 mmHg (41-51); pH (Venous) 7.38 (7.31-7.41); pO2 (Venous) 55 mmHg
[2024-03-17 11:38] LABS: Abs Immature Grans 0.05 10^3/uL (0.0-0.06); Absolute Basophil Count 0.08 10^3/uL (0.0-0.2); Absolute Eosinophil Count 0.13 10^3/uL (0.0-0.7); Absolute Lymphocyte Count 0.94 10^3/uL (1.2-3.4); Absolute Monocyte Count 0.46 10^3/uL (0.1-0.8); Absolute Neutrophil Count 2.44 10^3/uL (1.2-6.7); Eosinophils % 3.2 %; HCT 24.7 % (40.0-50.0); HGB 7.1 g/dL (13.5-17.5); Immature Grans % 1.2 %; Lymphocytes % 22.9 %; MCH 20.8 pg (27.0-33.0); MCHC 28.7 % (32.0-36.0); MCV 72 fL (80-95); MPV 9.3 fL (8.0-11.0); Monocytes % 11.2 %; Neutrophils % 59.5 %; Platelet Count 264 10^3/uL (130-400); RBC 3.41 10^6/uL (4.36-5.78); RDW 20.1 % (11.8-14.1); RDW-SD 52.2 fL
[2024-03-17 11:49] LABS: PTT Activated 26.3 sec (23.6-32.8); Prothrombin Time 10.3 sec (9.1-11.1)
[2024-03-17 11:56] LABS: ALT 16 U/L (16-63); AST 19 U/L (15-37); Alkaline Phosphatase 61 U/L (46-116); Anion Gap 16.3 mmol/L (3-11); BUN 35 mg/dL (7-18); Bilirubin, Total 0.4 mg/dL (0.2-1.0); CO2 23.7 mmol/L (21.0-32.0); CREATININE 2.9 mg/dL (0.70-1.30); Calcium 7.8 mg/dL (8.5-10.1); Chloride 103 mmol/L (98-107); Creatine Kinase 167 U/L (39-308); ETHANOL BLOOD 158.1 mg/dL (<10); Glucose 85 mg/dL (74-106); Lipase 43 U/L (16-77); Magnesium 1.1 mg/dL (1.8-2.4); Sodium 143 mmol/L (136-145); Total Protein 6.2 g/dL (6.4-8.2); Troponin I < 50 ng/L (< or =60)
--- NOTE | 2024-03-17 12:00 | DI.CT_ITS ---
Exam(s) CT CHEST/ABD/PEL WO EXAM: CT CHEST/ABD/PEL WO CLINICAL HISTORY: right sided pain s/p fall. TECHNIQUE: Imaging Protocol: Axial computed tomography images with coronal and sagittal reformatted images were created and reviewed CONTRAST MATERIAL: Intravenous: none Oral: None COMPARISON: CT CT ABDOMEN PELVIS W from 08/29/2023 FINDINGS: CHEST: LUNGS: There are multiple tiny nodules in the right lung.. No confluent infiltrates nor pleural effu sions on either side. No pneumothorax.. MEDIASTINUM: No evidence of sternal fracture or mediastinal hematoma. Visualized thyroid unremarkabl e. CARDIAC: Heart size is normal. There is no pericardial effusion.Caliber of the thoracic aorta is wit hin normal limits. OSSEOUS: No fractures. No significant osseous lesions.. ABDOMEN: There is no ascites. LIVER: There are no obvious focal hepatic findings evident of this noninfused study. No obvious lace ration of the liver. GALLBLADDER/BILIARY: Gallbladder is contracted. CBD is not dilated. PANCREAS: No evidence of obvious pancreatic mass nor dilatation of the pancreatic duct. SPLEEN: Spleen is not enlarged. No obvious intrasplenic laceration or lesions. ADRENALS: There are no significant adrenal masses. KIDNEYS: No calculi nor hydronephrosis. No obvious solid renal masses. No lacerations. No subcapsula r hematomas. ABDOMINAL AORTA: Abdominal aorta is not enlarged. LYMPH NODES: There is no retroperitoneal nor para-aortic adenopathy. ABDOMINAL WALL/GI: No evidence of significant anterior abdominal wall nor inguinal hernia. No evidence of bowel obstruction. No evidence of mesenteric nor bowel wall hematoma. Sigmoid diverticuli without diverticulitis. PELVIS: LYMPH NODES: There is no intrapelvic nor inguinal adenopathy. GI: No evidence of appendicitis.Sigmoid diverticuli. No evidence of sigmoid diverticulitis. URINARY BLADDER: No calculi nor obvious masses evident small right-sided bladder diverticulum. REPRODUCTIVE: Prostate not enlarged. Seminal vesicles unremarkable. OSSEOUS: No significant osseous lesions. No fractures IMPRESSION: 1. No obvious acute significant trauma sequelae in the chest, abdomen, and pelvis. 2. Other findings as above. RADIATION DOSE DELIVERED: 1,218.25mGy.cm Total DLP DATA REPOSITORY: All CT scans at this facility are submitted to the National Radiology Data Registry (NRDR) Dose Index Registry (DIR) with the [employer] (ACR). RADIATION OPTIMIZATION: All CT scans at this facility use at least one of these dose optimization te chniques: automated exposure control; mA and/or kV adjustment per patient size (includes targeted exa ms where dose is matched to clinical indication); or iterative reconstruction.
[2024-03-17 12:08] LABS: Anisocytosis 2+; Diff Comment RBC Morph Reviewed
[2024-03-17 12:09] LABS: Hypochromasia 1+; Microcytosis 1+
[2024-03-17 12:17] LABS: Procalcitonin < 0.1 ng/mL
[2024-03-17] MEDS: MAGNESIUM SULFATE 2 GM/50 ML BAG IVINF (12:39)
== END 2024-03-17 14:28 | disposition home or self-care (01) ==
PROVIDERS: Emergency Provider Emergency Medicine; PCP Nurse Practitioner Adult Health
DX: D64.9 Anemia, unspecified (principal); F10.10 Alcohol abuse, uncomplicated; R51.9 Headache, unspecified; R07.89 Other chest pain; J44.9 Chronic obstructive pulmonary disease, unspecified; I48.0 Paroxysmal atrial fibrillation; F17.210 Nicotine dependence, cigarettes, uncomplicated; Y90.6 Blood alcohol level of 120-199 mg/100 ml; Z91.148 Patient's other noncompliance with medication regimen for other reason
CPT/HCPCS: 71250; 80053; 82550; 82805; 83690; 84145; 87637; 93005; 96361; 96374; 96375; 99285; 70450; 72125; 74176; 80320; 83735; 84484; 85025; 85610; 85730; 93010; 99284; J0131; J3475

== ENCOUNTER 2024-04-10 21:16 | Inpatient (IN) | payer OTHER, SELFPAY ==
[2024-04-10] VITALS (27 sets, daily range): BP systolic 109–141; BP diastolic 39–72; PULSE 77–120; RESP 4–29; TEMP 36; O2SAT 90–99
--- NOTE | 2024-04-10 21:15 | RT.EKG_ITS ---
APPROVED REPORT Exam: Resting ECG Reason for Exam: weakness/dizzy Patient Location: E HR:88 bpm ECG Measurements Heart Rate 88 AXIS GA [id number] P [id number] QRSd 78 QRS 71 QT 375 T 59 QTc 455 Conclusion Atrial fibrillation...V-rate 65-109, irreg A-activity Low voltage, extremity leads...all extremity leads <0.5mV Consider anteroseptal infarct...Q >30mS, dimin R, V1-V2
--- NOTE | 2024-04-10 21:15 | DI.CT_ITS ---
Exam(s) CT HEAD CERVICAL SPINE WO EXAM: CT HEAD CERVICAL SPINE WO CLINICAL HISTORY: AMS, vomiting, ETOH use. TECHNIQUE: Imaging Protocol: Axial computed tomography images with coronal and sagittal reformatted images were created and reviewed COMPARISON: CT CT HEAD CERVICAL SPINE WO from 03/17/2024 FINDINGS: The examination is limited due to patient motion artifact. CT Head: Ventricles and Extra axial spaces: Normal in size and morphology for the patient's age. Hemorrhage: None. Cerebral parenchyma: There are areas of decreased attenuation in the white matter consistent with chr onic microvascular ischemic disease. There are lacunar infarcts seen bilaterally in the thalami and the basal ganglia. No acute mass effect is present. Midline shift: None. Brainstem/Cerebellum: Normal. Calvarium: Normal. Visualized Paranasal sinuses/Mastoids: There is a mucous retention cyst or polyp in the right maxilla ry sinus. No fluid levels are seen. The mastoid air cells are clear. Soft Tissues: Unremarkable. CT Cervical Spine: Bones: No acute fracture or subluxation. Age-appropriate degenerative changes are present. There is congenital nonunion of the posterior arch of C1. There is again seen a C3 hemivertebra present. 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 Soft Tissues: Atherosclerotic calcification is present. Lung Apices: Clear. IMPRESSION: 1. No acute intracranial process. 2. No acute fracture or subluxation in the cervical spine. RADIATION DOSE DELIVERED: 1,245.22mGy.cm Total DLP DATA REPOSITORY: All CT scans at this facility are submitted to the National Radiology Data Registry (NRDR) Dose Index Registry (DIR) with the [employer] (ACR). RADIATION OPTIMIZATION: All CT scans at this facility use at least one of these dose optimization te chniques: automated exposure control; mA and/or kV adjustment per patient size (includes targeted exa ms where dose is matched to clinical indication); or iterative reconstruction.
--- NOTE | 2024-04-10 21:30 | DI.CT_ITS ---
Exam(s) CT CHEST/ABD/PEL W EXAM: CT CHEST/ABD/PEL W CLINICAL HISTORY: cough, vomiting/diarrhea. TECHNIQUE: Imaging Protocol: Axial computed tomography images with coronal and sagittal reformatted images were created and reviewed CONTRAST MATERIAL: Intravenous: Omnipaque 350 Contrast volume:100 ml Oral: no COMPARISON: CR XR CHEST 2V PA LATERAL from 01/27/[address] CHEST/ABD/PEL WO from 03/17/2024 FINDINGS: CHEST: Evaluation of the lungs limited due to motion. Tracheobronchial tree: Mild bronchial wall thickening. Could indicate chronic bronchitis. Pulmonary parenchyma: No consolidation or dominant measurable mass. Mild emphysematous and fibrotic changes in upper lobes. Scarring versus atelectasis in the lingula. Pleura: No effusion or pneumothorax. Mediastinum: Within normal limits. Aorta: Thoracic portion non-dilated. moderate atherosclerotic changes. Pulmonary arteries: No visible emboli. Heart: Mildly enlarged.. Coronary artery calcifications. Trace pericardial effusion. Bones: Unremarkable for age. No lytic or blastic lesions.No compression fractures. Soft tissues: Bilateral gynecomastia. ABDOMEN and PELVIS: Mildly limited by motion. Liver: Normal density. No measurable mass. Gallbladder and biliary tract: No evidence of stones or wall thickening. No biliary dilatation. Pancreas: Normal density, no abnormal calcifications or inflammatory process. Spleen: Normal. Kidneys: Normal size, contour and axis. No radiodense stones. No obstructive uropathy. No suspicious masses seen. Adrenal glands: No masses seen. Aorta: Abdominal portion non-dilated. severe atherosclerotic changes. Moderate multifocal stenosis in both common iliac arteries and left external iliac artery as well as bilateral femoral arteries.. Severe narrowing proximal right superficial femoral artery. Lymph nodes: Within normal limits. Soft tissues: Unremarkable. Bladder: Decompressed by Cornejo catheter. Bowel: Sigmoid diverticulosis. No evidence of diverticulitis. Appendix normal. Peritoneal cavity: No ascites. No focal collection. No mesenteric inflammatory response. No free ai r. Bones: Degenerative changes and mild scoliosis. Reproductive organs: Within normal limits. IMPRESSION: No acute abnormality in the chest, abdomen or pelvis. Severe atherosclerotic changes of abdominal aorta and branch vessels. RADIATION DOSE DELIVERED: Total DLP DATA REPOSITORY: All CT scans at this facility are submitted to the National Radiology Data Registry (NRDR) Dose Index Registry (DIR) with the [employer] (ACR). RADIATION OPTIMIZATION: All CT scans at this facility use at least one of these dose optimization te chniques: automated exposure control; mA and/or kV adjustment per patient size (includes targeted exa ms where dose is matched to clinical indication); or iterative reconstruction.
--- NOTE | 2024-04-10 21:35 | W.ED.GENAD ---
Discharge Plan Discharge Details Chief Complaint: GenMedical Primary Care Provider: Desirae Panda ED Provider: Luci Ignacio Home Meds and New Rx's Prescriptions: No Action atorvastatin 40 mg tablet 40 mg PO QHS Qty: 90 3RF levalbuterol tartrate 45 mcg/actuation HFA aerosol inhaler 1 - 2 puff INHALATION Q4H Qty: 15 3RF Rx Instructions: RESCUE INHALER 03/2023: PLEASE DELIVER (PT CANNOT VARNISH REMOVER) magnesium chloride 64 mg magnesium tablet 64 mg PO DAILY AM Qty: 90 3RF Rx Instructions: LOW MAGNESIUM pantoprazole 40 mg tablet,delayed release (DR/EC) 40 mg PO DAILY AM Qty: 90 3RF Rx Instructions: GI bleed tamsulosin 0.4 mg capsule 0.8 mg PO DAILY Qty: 180 3RF Patient Comments: takes sometimes Rx Instructions: BPH/help urinate loratadine 10 mg tablet 10 mg PO DAILY Qty: 90 3RF Rx Instructions: COPD, allergies, itchy nose & eyes, nasal drip ibuprofen 600 mg tablet 600 mg PO BID PRN (Reason: pain) Qty: 12 0RF Rx Instructions: Foot/toe pain. Take with food. metoclopramide HCl [Reglan] 10 mg tablet 10 mg PO Q6H PRNQty: 20 0RF HPI General Date/Time Provider Initiated Documentation: 04/10/24 21:17. HPI Narrative: Khoi is a 78 year old male with history of ETOH use disorder and alcoholic liver disease, anemia, CHF, COPD with continued tobacco use, urinary retention, afib not on anticoagulation who presents to the emergency department today for altered mental status. According to EMS he lives in a home that was 95 degrees, pt and surroundings covered in vomit and feces. Patient has not been able to ambulate due to weakness. Patient called EMS, however is unclear what prompted to call. He does report chest pain and cough with wheezing, otherwise it is difficult to obtain a history and review of systems from patient due to altered mental status. He denies fever. He was given 1 DuoNeb en route. Physical exam remarkable for dishelved and cachectic patient who appears confused and slow to answer questions. Slightly tacky mucous membranes. Audible wheezes with coarse rhonchi in all lung collins. Occasional congested cough. Irregularly irregular heart rate. Abdomen is soft, diffusely tender to palpation. D/dx includes but is not limited to: COPD, CHF, ACS, pneumonia, viral illness, severe anemia, dehydration, pancreatitis, electrolyte imbalance, ETOH intoxication, encephalitis I independently interpreted the following tests: CBC notable for microcytic anemia anemia, H&H 8.0 and 27.5. Lactate elevated at 2.8. BUN and creatinine 30 and 2, relatively unchanged from previous. Anion gap elevated at 13.4. VBG, UA, UDS, and COVID/flu/RSV all negative. EtOH greater than 300. Initial troponin negative. While in the emergency department Khoi received DuoNeb with full resolution of wheezing/rhonchi. Liter normal saline given for rehydration. Handoff report given to Dr Ignacio, overnight attending. Related Data Home Medications ?Medication ?Instructions ?Recorded ?Confirmed atorvastatin 40 mg tablet 40 mg PO QHS #90 tabs 09/27/22 04/10/24 levalbuterol tartrate 45 1 - 2 puff inhalation Q4H #15 grams 04/18/23 04/10/24 mcg/actuation aerosol inhaler magnesium chloride 64 mg 64 mg PO DAILY AM #90 tabs 04/18/23 04/10/24 (magnesium chloride) tablet pantoprazole 40 mg tablet,delayed 40 mg PO DAILY AM #90 tabs 04/18/23 04/10/24 release tamsulosin 0.4 mg capsule 0.8 mg (2 x 0.4 mg) PO DAILY #180 04/18/23 04/10/24 caps loratadine 10 mg tablet 10 mg PO DAILY #90 tabs 04/22/23 04/10/24 ibuprofen 600 mg tablet 600 mg PO BID PRN pain #12 tabs 06/19/23 04/10/24 metoclopramide HCl 10 mg tablet 10 mg PO Q6H PRN #20 tabs 08/29/23 04/10/24 (Reglan) Previous Rx's ?Medication ?Instructions ?Recorded atorvastatin 40 mg tablet 40 mg PO QHS #90 tabs 09/27/22 levalbuterol tartrate 45 1 - 2 puff inhalation Q4H #15 grams 04/18/23 mcg/actuation aerosol inhaler magnesium chloride 64 mg 64 mg PO DAILY AM #90 tabs 04/18/23 (magnesium chloride) tablet pantoprazole 40 mg tablet,delayed 40 mg PO DAILY AM #90 tabs 04/18/23 release tamsulosin 0.4 mg capsule 0.8 mg (2 x 0.4 mg) PO DAILY #180 04/18/23 caps loratadine 10 mg tablet 10 mg PO DAILY #90 tabs 04/22/23 ibuprofen 600 mg tablet 600 mg PO BID PRN pain #12 tabs 06/19/23 metoclopramide HCl 10 mg tablet 10 mg PO Q6H PRN #20 tabs 08/29/23 (Reglan) Allergies Allergy/AdvReac Type Severity Reaction Status Date / Time bupropion AdvReac Severe seizures Verified 04/10/24 21:23 General Stated Complaint: GenMedical JENNA: 3 Review of Systems Narrative: see HPI Exam Const General: cooperative, disheveled, frail appearing, intoxicated appearing and lethargic Nutritional Appearance: cachectic Limitations: altered mental status HENMT Ears: hearing grossly normal bilaterally General nose exam: external nose normal Face and sinus: dry mucous membranes Resp Effort & Inspection: audible wheezes and cough Auscultation: rhonchi and wheezes Cardio Rhythm: abnormal rhythm irregularly irregular GI Inspection: non-distended Palpation: no guarding, not rigid and tender (diffuse, mild) Neuro General: patient oriented x3 and other (unable to fully assess due to intoxication) Extrem General: no pedal edema Course Vital Signs Vital signs: Vital Signs Pulse 120 H 04/10/24 21:15 Respiratory Rate 18 04/10/24 21:15 Blood Pressure 115/58 L 04/10/24 21:15 Pulse Oximetry 96 04/10/24 21:15 Temperature 36 C L 04/10/24 21:24 Temperature Source Temporal Artery Scan 04/10/24 21:24 Pulse 95 H 04/10/24 21:24 Respiratory Rate 16 04/10/24 21:24 Respiratory Effort Non-Labored 04/10/24 21:22 Blood Pressure 115/58 L 04/10/24 21:24 Blood Pressure Position Supine 04/10/24 21:24 Pulse Oximetry 95 04/10/24 21:24 Oxygen Delivery Method Room Air 04/10/24 21:24 Oxygen Flow Rate 0 04/10/24 21:15 Pain Level 0 04/10/24 21:15 Medical Decision Making Quality:SDOH Health Related Social Needs: No Data to Display PFSH All Active Problems (Updated 03/17/24 @ 14:07 by Marquez Henning MD) Blunt head trauma (Acute) Blunt trauma of multiple sites of trunk (Acute) Fall (Acute) Impaired gait and mobility (Acute ~03/2023) Hyperlipidemia (Chronic) Tobacco abuse disorder (Acute) Cut down 1/2PPD Personal history of noncompliance with medical treatment and regimen (Chronic) Alcoholic liver disease (Chronic) Anemia (Chronic ~02/2022) S/P GI bleed CHF (congestive heart failure) (Chronic ~02/2023) ECHO 02/2022 LVEF 45-50% Depression (Chronic) Plans on getting connected to social work Tineo's esophagus (Chronic ~04/2019) ETOH; Upper endoscopy 03/2019 (see path report--no tineo's?, but 08/15/2019 surg note says +tineo's) Weakness (Acute) LE weakness; Home PT Urinary retention (Chronic) Dr. Ramos COPD (chronic obstructive pulmonary disease) (Chronic) Atrial fibrillation (Chronic) Paroxysmal per hospital records; not anticoagulated secondary to recurrent GI bleeds from chronic EtOH use Alcohol use disorder (Chronic) Medical History Acute upper gastrointestinal bleeding (~02/2022) Gastric ulcer Troponin level elevated Gout Colchicine prevention Sleeping difficulty Melatonin RX Palliative care patient [place] Insomnia Radicular pain of right lower extremity GI bleed Tineo's esophagus Right knee pain UTI (urinary tract infection) Hematemesis Depression Renal insufficiency Smoking hx Surgical History H/O esophagogastroduodenoscopy (~04/2019) [place] [facility] [place] w/ non-bleeding esophageal ulcer. Multiplle inflammatory appearing nodules at [facility] Social History Smoking/Tobacco Use Status: Current every day Tobacco Type: cigarettes Years smoked: 50 Smoking risk assessment performed?: Yes Alcohol Intake: current Alcohol Intake frequency: other Alcohol type: hard liquor Drug use: Never Substance use type: does not use Details: Pt has not had alcohol since being at the [facility]. 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 Awaiting CT scans. Receiving IV fluids. Last updated by Kassi Parr at 04/10/24 23:34
[2024-04-10 21:38] LABS: BE (Venous) -4 mmol/L (-2-3); HCO3 (Venous) 22 mmol/L (23-28); O2 Sat (Venous) 75 %; TCO2 (Venous) 21 mmol/L (24-29); pCO2 (Venous) 42 mmHg (41-51); pH (Venous) 7.33 (7.31-7.41); pO2 (Venous) 49 mmHg
[2024-04-10 21:39] LABS: Abs Immature Grans 0.01 10^3/uL (0.0-0.06); Absolute Basophil Count 0.08 10^3/uL (0.0-0.2); Absolute Eosinophil Count 0.06 10^3/uL (0.0-0.7); Absolute Lymphocyte Count 1.51 10^3/uL (1.2-3.4); Absolute Neutrophil Count 1.49 10^3/uL (1.2-6.7); Basophils % 2.3 %; Eosinophils % 1.7 %; HCT 27.5 % (40.0-50.0); Immature Grans % 0.3 %; Lymphocytes % 42.5 %; MCH 20.8 pg (27.0-33.0); MCHC 29.1 % (32.0-36.0); MCV 71 fL (80-95); MPV 8.7 fL (8.0-11.0); Monocytes % 11.3 %; Neutrophils % 41.9 %; Platelet Count 284 10^3/uL (130-400); RBC 3.85 10^6/uL (4.36-5.78); RDW-SD 48.1 fL; WBC 3.55 10^3/uL (4.4-10.8)
[2024-04-10 21:42] LABS: Lactate 3.8 mmol/L (0.6-1.4)
[2024-04-10] MEDS: Lactated Ringers 1,000 ML 1000 ML IV (21:44)
[2024-04-10] MEDS: THIAMINE 100 MG in Normal Saline 100 ML 200 MG IVPB (21:44)
[2024-04-10] MEDS: Albuterol/Ipratropium 3 ML UPD VIAL UPD (21:45)
[2024-04-10 21:55] LABS: Bilirubin Negative (Negative); Blood Negative (Negative); Clarity Clear (Clear); Glucose Negative (Negative); Ketones Negative (Negative); Leukocyte Esterase Negative (Negative); Nitrite Negative (Negative); Urobilinogen 0.2 mg/dL (Up to 0.2)
[2024-04-10 22:09] LABS: ALT 20 U/L (16-63); AST 24 U/L (15-37); Albumin 3.4 g/dL (3.4-5.0); Alkaline Phosphatase 48 U/L (46-116); Anion Gap 13.4 mmol/L (3-11); BUN 30 mg/dL (7-18); Bilirubin, Total 0.39 mg/dL (0.2-1.0); CO2 24.6 mmol/L (21.0-32.0); Calcium 8.4 mg/dL (8.5-10.1); Chloride 106 mmol/L (98-107); Estimated GFR 33.74 (mL/min/1.73m2); Glucose 78 mg/dL (74-106); Lipase 24 U/L (16-77); Potassium 4.3 mmol/L (3.5-5.1); Sodium 144 mmol/L (136-145); Total Protein 6.5 g/dL (6.4-8.2); Troponin I < 50 ng/L (< or =60)
[2024-04-10 22:12] LABS: *AMPHETAMINES SCREEN URINE Negative (Negative); *BARBITURATES SCREEN URINE Negative (Negative); *BENZODIAZEPINES SCREEN URINE Negative (Negative); Cannabinoids THC Negative (Negative); Cocaine Screen,Urine Negative (Negative); METHADONE URINE SCREEN Negative (Negative); OPIATES URINE SCREEN Negative (Negative)
[2024-04-10 22:14] LABS: Tricyclic Antidepressants Negative (Negative)
[2024-04-10 22:17] LABS: Anisocytosis 1+; Diff Comment RBC Morph Reviewed; Hypochromasia 2+; Microcytosis 2+
[2024-04-10 22:18] LABS: Poikilocytes 1+
[2024-04-10 22:27] LABS: COVID-19 PCR Negative (Negative); Influenza A PCR Negative (Negative); Influenza B PCR Negative (Negative); RSV PCR Negative (Negative); Source Nasopharynx
[2024-04-10 22:34] LABS: ETHANOL BLOOD 303.1 mg/dL (<10)
[2024-04-10] MEDS: Omnipaque 350 MG/ML 100 ML BTL IJ (23:06)
[2024-04-10] MEDS: Normal Saline - Diluent 50 ML VIAL IJ (23:06)
--- NOTE | 2024-04-10 23:19 | W.EDPROG ---
Date of service: 04/10/24 Time of Service: 23:19 Medical Decision Making This patient was signed out to me. Please see previous notes for H&P and initial eval. In brief, 78yo M presenting with generalized weakness. He called EMS from home, has been unable to walk, per EMS feces 'all over house', pt found with feces and vomit on him. Dehydrated on exam with tacky MM. Blood work significant for Hg of 8.0 (baseline),Cr 2.0 (baseline), and elevated lactate at 2.8 as well as EOTH ~300. Initially some wheezing which improved after duoneb. Signed out pending 1L IVFB, CT imaging. CTs independently reviewed; no focal pneumonia, bowel obstruction, or free fluid fluid on my view; agree with radiology reads below. On reassessment patient remains unable to ambulate. States he is willing stay, have PT, consider rehab placement. I can't go home like this, I need help. Repeat lactate sent and rising to >5. Will broaden workup to include tox. He denies any infectious symptoms, no fevers, no indication of infection on CT, UA not infected, possible S1 pressure sore to coccyx but no overt cellulitis. Blood cultures were sent on arrival. Discussed with hospitalist Dr. Rivas; accepted to medicine service. Awaiting admission orders and transfer to the floor. Imaging Data Radiologic Study: Radiologist's impression: Chest: IMPRESSION: 1. Mild cardiomegaly, similar to prior. 2. Probable mild chronic bronchitis. 3. Incidental findings as described. Abd/pelvis: IMPRESSION: 1. No acute findings. 2. Cornejo catheter in a decompressed urinary bladder. 3. Incidental findings as described. Lab Data Lab results reviewed: Yes I reviewed the patient's lab results. Labs: 04/10/24 21:28 Blood Blood Culture - Pending 04/10/24 21:25 Blood Blood Culture - Pending Laboratory Tests Range/Units 04/10/24 04/10/24 04/10/24 21:25 21:32 21:35 WBC (4.4-10.8) 10^3/uL 3.55 L RBC (4.36-5.78) 10^6/uL 3.85 L Hgb (13.5-17.5) g/dL 8.0 L Hct (40.0-50.0) % 27.5 L MCV (80-95) fL 71 L MCH (27.0-33.0) pg 20.8 L MCHC (32.0-36.0) % 29.1 L RDW (11.8-14.1) % 19.0 H Plt Count (130-400) 10^3/uL 284 MPV (8.0-11.0) fL 8.7 Immature Gran % % 0.3 Neutrophils % % 41.9 Lymphocytes % % 42.5 Monocytes % % 11.3 Eosinophils % % 1.7 Basophils % % 2.3 Nucleated RBC % (0.0-0.3) % 0.0 Absolute Neutrophils (1.2-6.7) 10^3/uL 1.49 Absolute Lymphocytes (1.2-3.4) 10^3/uL 1.51 Absolute Monocytes (0.1-0.8) 10^3/uL 0.40 Absolute Eosinophils (0.0-0.7) 10^3/uL 0.06 Absolute Basophils (0.0-0.2) 10^3/uL 0.08 RBC Morphology See Below Hypochromasia 2+ Poikilocytosis 1+ Anisocytosis 1+ Microcytosis 2+ VBG pH (7.31-7.41) 7.33 VBG pCO2 (41-51) mmHg 42 VBG pO2 mmHg 49 VBG HCO3 (23-28) mmol/L 22 L VBG Total CO2 (24-29) mmol/L 21 L VBG O2 Saturation % 75 VBG Base Excess (-2-3) mmol/L -4 L VBG Lactate (0.6-1.4) mmol/L 3.8 H* Sodium (136-145) mmol/L 144 Cancelled Potassium (3.5-5.1) mmol/L 4.3 Cancelled Chloride (98-107) mmol/L 106 Cancelled Carbon Dioxide (21.0-32.0) mmol/L 24.6 Cancelled Anion Gap (3-11) mmol/L 13.4 H Cancelled BUN (7-18) mg/dL 30 H Cancelled Creatinine (0.70-1.30) mg/dL 2.0 H Cancelled Est GFR (CKD-EPI 2020) (mL/min/1.73m2) 33.74 Cancelled Glucose (74-106) mg/dL 78 Cancelled Calcium (8.5-10.1) mg/dL 8.4 L Cancelled Total Bilirubin (0.2-1.0) mg/dL 0.39 Cancelled AST (15-37) U/L 24 Cancelled ALT (16-63) U/L 20 Cancelled Alkaline Phosphatase (46-116) U/L 48 Cancelled Troponin I (< or =60) ng/L < 50 Total Protein (6.4-8.2) g/dL 6.5 Cancelled Albumin (3.4-5.0) g/dL 3.4 Cancelled Lipase (16-77) U/L 24 Urine Color (Yellow) Yellow Urine Clarity (Clear) Clear Urine pH (5-8) 5.0 Ur Specific [place] (1.005-1.025) 1.020 Urine Protein (Neg-Trace) mg/dL Negative Urine Ketones (Negative) mg/dL Negative Urine Blood (Negative) Negative Urine Nitrite (Negative) Negative Urine Bilirubin (Negative) Negative Urine Urobilinogen (Up to 0.2) mg/dL 0.2 Ur Leukocyte Esterase (Negative) Negative Urine Glucose (Negative) mg/dL Negative Urine Opiates Screen (Negative) Negative Urine Methadone Screen (Negative) Negative Ur Barbiturates Screen (Negative) Negative Ur Tricyclics Screen (Negative) Negative Ur Amphetamines Screen (Negative) Negative U Benzodiazepines Scrn (Negative) Negative Urine Cocaine Screen (Negative) Negative Ur THC Screen (Negative) Negative Ethyl Alcohol (<10) mg/dL 303.1 H COVID-19 Source SARS-CoV-2 (PCR) (Negative) Influenza Type A (PCR) (Negative) Influenza Type B (PCR) (Negative) RSV (PCR) (Negative) Range/Units 04/10/24 21:43 WBC (4.4-10.8) 10^3/uL RBC (4.36-5.78) 10^6/uL Hgb (13.5-17.5) g/dL Hct (40.0-50.0) % MCV (80-95) fL MCH (27.0-33.0) pg MCHC (32.0-36.0) % RDW (11.8-14.1) % Plt Count (130-400) 10^3/uL MPV (8.0-11.0) fL Immature Gran % % Neutrophils % % Lymphocytes % % Monocytes % % Eosinophils % % Basophils % % Nucleated RBC % (0.0-0.3) % Absolute Neutrophils (1.2-6.7) 10^3/uL Absolute Lymphocytes (1.2-3.4) 10^3/uL Absolute Monocytes (0.1-0.8) 10^3/uL Absolute Eosinophils (0.0-0.7) 10^3/uL Absolute Basophils (0.0-0.2) 10^3/uL RBC Morphology Hypochromasia Poikilocytosis Anisocytosis Microcytosis VBG pH (7.31-7.41) VBG pCO2 (41-51) mmHg VBG pO2 mmHg VBG HCO3 (23-28) mmol/L VBG Total CO2 (24-29) mmol/L VBG O2 Saturation % VBG Base Excess (-2-3) mmol/L VBG Lactate (0.6-1.4) mmol/L Sodium (136-145) mmol/L Potassium (3.5-5.1) mmol/L Chloride (98-107) mmol/L Carbon Dioxide (21.0-32.0) mmol/L Anion Gap (3-11) mmol/L BUN (7-18) mg/dL Creatinine (0.70-1.30) mg/dL Est GFR (CKD-EPI 2020) (mL/min/1.73m2) Glucose (74-106) mg/dL Calcium (8.5-10.1) mg/dL Total Bilirubin (0.2-1.0) mg/dL AST (15-37) U/L ALT (16-63) U/L Alkaline Phosphatase (46-116) U/L Troponin I (< or =60) ng/L Total Protein (6.4-8.2) g/dL Albumin (3.4-5.0) g/dL Lipase (16-77) U/L Urine Color (Yellow) Urine Clarity (Clear) Urine pH (5-8) Ur Specific [place] (1.005-1.025) Urine Protein (Neg-Trace) mg/dL Urine Ketones (Negative) mg/dL Urine Blood (Negative) Urine Nitrite (Negative) Urine Bilirubin (Negative) Urine Urobilinogen (Up to 0.2) mg/dL Ur Leukocyte Esterase (Negative) Urine Glucose (Negative) mg/dL Urine Opiates Screen (Negative) Urine Methadone Screen (Negative) Ur Barbiturates Screen (Negative) Ur Tricyclics Screen (Negative) Ur Amphetamines Screen (Negative) U Benzodiazepines Scrn (Negative) Urine Cocaine Screen (Negative) Ur THC Screen (Negative) Ethyl Alcohol (<10) mg/dL COVID-19 Source Nasopharynx SARS-CoV-2 (PCR) (Negative) Negative Influenza Type A (PCR) (Negative) Negative Influenza Type B (PCR) (Negative) Negative RSV (PCR) (Negative) Negative Quality:SDOH Health Related Social Needs: No Data to Display Sign Out Sign Out Data: Sign Out Comment: 78 y/o male presented for AMS/weakness/wheezing, covered in vomit/feces. Awaiting CT scans. Receiving IV fluids. Last updated by Kassi Parr at 04/10/24 23:34 Discharge Plan Disposition Patient Disposition: Admit to [facility] Condition: Serious Discharge Details Chief Complaint: GenMedical Clinical Impression: Acidosis, lactic, Dehydration Primary Care Provider: Desirae Panda ED Provider: Luci Ignacio Home Meds and New Rx's Prescriptions: No Action atorvastatin 40 mg tablet 40 mg PO QHS Qty: 90 3RF levalbuterol tartrate 45 mcg/actuation HFA aerosol inhaler 1 - 2 puff INHALATION Q4H Qty: 15 3RF Rx Instructions: RESCUE INHALER 03/2023: PLEASE DELIVER (PT CANNOT TRANSPORT ASSISTANT) magnesium chloride 64 mg magnesium tablet 64 mg PO DAILY AM Qty: 90 3RF Rx Instructions: LOW MAGNESIUM pantoprazole 40 mg tablet,delayed release (DR/EC) 40 mg PO DAILY AM Qty: 90 3RF Rx Instructions: GI bleed tamsulosin 0.4 mg capsule 0.8 mg PO DAILY Qty: 180 3RF Patient Comments: takes sometimes Rx Instructions: BPH/help urinate loratadine 10 mg tablet 10 mg PO DAILY Qty: 90 3RF Rx Instructions: COPD, allergies, itchy nose & eyes, nasal drip ibuprofen 600 mg tablet 600 mg PO BID PRN (Reason: pain) Qty: 12 0RF Rx Instructions: Foot/toe pain. Take with food. metoclopramide HCl [Reglan] 10 mg tablet 10 mg PO Q6H PRNQty: 20 0RF
[2024-04-10] MEDS: Lactated Ringers 500 ML 1000 ML IV (23:44)
--- NOTE | 2024-04-10 23:53 | DI.VRAD_ITS ---
PROCEDURE INFORMATION: Exam: CT Chest With Contrast; Diagnostic Exam date and time: 04/10/2024 22:50 Age: 78 years old Clinical indication: Vomiting; Cough; Additional info: Cough, vomiting/diarrhea TECHNIQUE: Imaging protocol: Diagnostic computed tomography of the chest with contrast. 3D rendering (Not supervised by radiologist): MIP and/or 3D reconstructed images were created by the technologist. Contrast material: OMNI 350; Contrast volume: 100 ml; Contrast route: INTRAVENOUS (IV); COMPARISON: CT CHEST/ABD/PEL WO 03/17/2024 12:25 FINDINGS: Lungs: Motion artifact in the lungs. The lungs appear hyperinflated. Minor subsegmental atelectasis left upper lobe, similar to prior. No airspace consolidation. Suspected mild bronchial wall thickening would be similar. Pleural spaces: No pneumothorax. No pleural effusion. Heart: Mild cardiomegaly, similar to prior. Trace pericardial fluid appears likely physiologic. Lymph nodes: No enlarged lymph nodes. Vasculature: No aortic aneurysm. Bones/joints: No acute fracture or subluxation. Soft tissues: Gynecomastia. IMPRESSION: 1. Mild cardiomegaly, similar to prior. 2. Probable mild chronic bronchitis. 3. Incidental findings as described. PROCEDURE INFORMATION: Exam: CT Abdomen And Pelvis With Contrast Exam date and time: 04/10/2024 22:50 Age: 78 years old Clinical indication: Vomiting; Cough; Additional info: Cough, vomiting/diarrhea TECHNIQUE: Imaging protocol: Computed tomography of the abdomen and pelvis with contrast. 3D rendering (Not supervised by radiologist): MIP and/or 3D reconstructed images were created by the technologist. Contrast material: OMNI 350; Contrast volume: 100 ml; Contrast route: INTRAVENOUS (IV); COMPARISON: CT CHEST/ABD/PEL WO 03/17/2024 12:25 FINDINGS: Liver: Tiny benign hepatic cysts and probable cysts, similar to prior. No hepatic masses. Gallbladder and biliary ducts: No calcified stones. No gross ductal dilation. Pancreas: No ductal dilation. No mass . Spleen: No splenomegaly or suspicious lesions. Adrenal glands: No suspicious mass. Kidneys and ureters: No hydronephrosis. No masses. Stomach and bowel: No definite gastric wall thickening, motion artifact and decompression. Colonic diverticulosis without diverticulitis. No colitis or enteritis. No obstruction. Appendix: No evidence of appendicitis. Intraperitoneal space: No free air. No significant fluid collection. Vasculature: Minor chronic likely penetrating ulcer of the aorta at the aortic hiatus. Multifocal atherosclerosis and chronic stenosis of the right common iliac artery. Lymph nodes: No significantly enlarged lymph nodes. Urinary bladder: Cornejo catheter in a decompressed urinary bladder. Mild probable chronic outlet obstructive changes of the urinary bladder. Reproductive: Unremarkable as visualized. Bones/joints: Chronic bony changes with no acute fracture. No acute fracture or subluxation. Soft tissues: No suspicious lesions. Other findings: Motion artifact in the abdomen. IMPRESSION: 1. No acute findings. 2. Cornejo catheter in a decompressed urinary bladder. 3. Incidental findings as described. Dictated and Authenticated by: Ayse Graham MD. Ordering:NANCY Solitario MD
[2024-04-11] VITALS (44 sets, daily range): BP systolic 103–183; BP diastolic 62–84; PULSE 78–119; RESP 2–33; TEMP 36–37.4; O2SAT 91–98
--- NOTE | 2024-04-11 | DI.RAD_ITS ---
Exam(s) XR PORTABLE CHEST AP EXAM: XR PORTABLE CHEST AP CLINICAL HISTORY: ? asp pneumonia TECHNIQUE: 2D digital imaging was performed. COMPARISON: CR XR PORTABLE CHEST AP from 01/27/[address] CHEST/ABD/PEL W from 04/10/2024 FINDINGS: Exam is limited by rotation and poor pulmonary inflation. Leads overlie the chest. LUNGS: Grossly clear. No pleural abnormality seen. HEART: Normal size for projection and degree of pulmonary inflation. AORTA: Normal diameter. BONES: Unremarkable for age. Soft tissues: Unremarkable. IMPRESSION: No acute findings. DATA REPOSITORY: RADIATION DOSE DELIVERED:
[2024-04-11] MEDS: Lactated Ringers 500 ML IV (00:17)
[2024-04-11 01:04] LABS: Lactate 5.5 mmol/L (0.6-1.4)
[2024-04-11] MEDS: ACETAMINOPHEN 1,000 MG/100 ML BTL 400 MG IVPB (01:05)
[2024-04-11 01:22] LABS: Troponin I < 50 ng/L (< or =60)
[2024-04-11] MEDS: THIAMINE 500 MG in Normal Saline 100 ML 200 MG IVPB (01:27)
[2024-04-11 01:52] LABS: Acetaminophen < 2 ug/mL (10-30); Salicylate 4.8 mg/dL (<2.8)
[2024-04-11 01:54] LABS: NT-proBNP 2372 pg/mL (<300)
--- NOTE | 2024-04-11 01:55 | W.PM.HP.N ---
Date of service: 04/11/24 Time of Service: 01:55 Assessment and Plan Assessment and plan (1) Falls frequently: Start date: 04/11/24 Status: Acute Assessment and plan: This is a 78-year-old gentleman who lives alone and takes a taxi to get his groceries and alcohol/tobacco. He intermittently stops drinking and does not have withdrawals but does not eat well having Meals on Wheels. He has had previous GI bleed with iron deficiency anemia but also has CKD with chronic anemia. He is not diabetic. He was having some chest discomfort with cough and wheeze receiving a nebulizer by EMS but was not wheezing at the time of my exam and appears comfortable after IV hydration. He has lactic acidosis which is worsening after 3 L of LR and he will be gently hydrated with normal saline. Magnesium is pending but if this is low it will be repleted with IV magnesium, he is chronically on oral magnesium. This is most likely is secondary to chronic alcohol use and poor nutrition. He will be admitted for rehabilitation, IV hydration watching for exacerbation of CHF with his BNP elevated and updated echocardiogram with possible placement for rehabilitation and better plan of care for home. We will heme test stools for blood loss and consider iron supplement. Patient is noncompliant with medical therapy at home. He does state that he takes a diuretic at home but has not been on this recently. With his multiple medical problems and decompensation with depression, he needs increased supports and long-term he may do better a assisted living facility. He is a full code. (2) Dehydration, mild: Start date: 04/11/24 Status: Acute Assessment and plan: Gently IV hydrate watching for CHF. Patient's urine was not severely concentrated and his creatinine is at baseline for CKD. He did receive 3 L of lactated Ringer's in the ED and is not manifesting evidence of CHF with no hypoxemia or lung findings. Imaging did not reveal exacerbation of CHF but his BNP was elevated. (3) Lactic acidosis: Start date: 04/11/24 Status: Acute Assessment and plan: Continue IV hydration with normal saline after 3 L of lactated Ringer's. There is no source of infection other than possible bronchitis and he is not septic. His most likely is secondary to recent volume loss with vomiting and poor intake with continued alcohol use. (4) COPD (chronic obstructive pulmonary disease): Status: Chronic Assessment and plan: Nebulizer treatments with doxycycline for possible bronchitis with his presentation of increased cough and wheezing. He will not receive steroids at this time. Qualifiers: COPD type: COPD with acute exacerbation Qualified Code(s): J44.1 - Chronic obstructive pulmonary disease with (acute) exacerbation (5) CHF (congestive heart failure): Status: Chronic Assessment and plan: BNP is elevated but not as high as it has been in the past. He has been off his diuretics though he states he does have a prescription at home. He has not followed up with medical care. Update echocardiogram and watch closely for fluid overload as we gently rehydrate and treat lactic acidosis. Qualifiers: Heart failure type: systolic Heart failure chronicity: acute Qualified Code(s): I50.21 - Acute systolic (congestive) heart failure (6) Iron deficiency anemia due to chronic blood loss: Status: Chronic Assessment and plan: Heme test stools, follow-up CBC and consider iron supplement if patient's nausea and vomiting and GI system allows. (7) Atrial fibrillation: Status: Chronic Assessment and plan: Patient has history of atrial fibrillation which is paroxysmal. He also has a loud systolic murmur. He is not on anticoagulation and is at risk for bleeding with his GI blood loss and frequent falls being an alcoholic. Continue no anticoagulation long-term but Lovenox for DVT prophylaxis while hospitalized. His platelet count is normal. Qualifiers: Atrial fibrillation type: paroxysmal Qualified Code(s): I48.0 - Paroxysmal atrial fibrillation (8) Alcohol use disorder: Status: Chronic Assessment and plan: Patient is drinking presently but does go 10 days without drinking without withdrawal. CIWA protocol while inpatient with Ativan p.o. as needed. He does have a history of alcoholic cirrhosis but liver function tests are normal and PT/INR will be checked. Trend labs daily. (9) Hypomagnesemia: Status: Chronic Assessment and plan: Presently low at 1.2 and will receive 4 g of magnesium sulfate IV with continued oral magnesium supplement. Patient does have a recurrent problem with this having chronic alcohol use and poor nutrition. (10) Tobacco abuse disorder: Status: Chronic Assessment and plan: Patient smokes less but continues to smoke. NicoDerm patch while hospitalized. (11) Hyperlipidemia: Status: Chronic Assessment and plan: Continue atorvastatin while hospitalized. Qualifiers: Hyperlipidemia type: mixed hyperlipidemia Qualified Code(s): E78.2 - Mixed hyperlipidemia (12) CKD (chronic kidney disease) stage 3, GFR 30-59 ml/min: Status: Chronic Assessment and plan: At baseline though mildly dehydrated. Trend labs daily. Qualifiers: Chronic kidney disease stage 3 subtype: stage 3b (GFR 30-44) Qualified Code(s): N18.32 - Chronic kidney disease, stage 3b History of Present Illness History of Present Illness Chief Complaint: Weakness with inability to walk Narrative: This is a 78-year-old male patient called EMS because he was unable to walk at home and was extremely weak. EMS did find patient at his home with feces and vomit all over the house and patient. He was brought to the ED and was found to be dehydrated with tachycardia and elevated lactate as well as elevated ethanol level being with known daily alcohol use Eliquis for 10 days at a time each month without withdrawal. He has had previous hospitalizations with similar presentation and has refused placement for rehabilitation. He lives alone and takes a taxi to get groceries and his alcohol and tobacco. He does not eat well and has been extremely depressed recently stated that he wants help at this time. He denies any blood in his urine or stool or problems urinating. He has been falling but has not had any specific injuries denying any bruising. Denies any loss of consciousness but has had some chest discomfort with cough recently though imaging was unrevealing for pneumonia. He does have known COPD and takes Xopenex. He is noncompliant with his medical follow-up and medical regimen. He does have a history of paroxysmal atrial fibrillation with CHF but has had no weight gain or peripheral edema. He also has chronic kidney disease which appears stable with chronic iron deficiency anemia not on iron supplementation and not eating well. He does get Meals on Wheels. He has no family who lives close and feels alone. He has a full code. Review of Systems Narrative: 13 point review of system as per HPI, otherwise unrevealing or stable PFSH All Active Problems Dehydration (Acute) Acidosis, lactic (Acute) Dehydration, mild (Acute) CKD (chronic kidney disease) stage 3, GFR 30-59 ml/min (Chronic) Lactic acidosis (Acute) Iron deficiency anemia due to chronic blood loss (Chronic) Falls frequently (Acute) Blunt head trauma (Acute) Blunt trauma of multiple sites of trunk (Acute) Fall (Acute) Impaired gait and mobility (Acute ~03/2023) Hyperlipidemia (Chronic) Tobacco abuse disorder (Chronic) Cut down 1/2PPD Personal history of noncompliance with medical treatment and regimen (Chronic) Alcoholic liver disease (Chronic) Anemia (Chronic ~02/2022) S/P GI bleed CHF (congestive heart failure) (Chronic ~02/2023) ECHO 02/2022 LVEF 45-50% Depression (Chronic) Plans on getting connected to social work Tineo's esophagus (Chronic ~04/2019) ETOH; Upper endoscopy 03/2019 (see path report--no tineo's?, but 08/15/2019 surg note says +tineo's) Weakness (Acute) LE weakness; Home PT Urinary retention (Chronic) Dr. Ramos Hypomagnesemia (Chronic) COPD (chronic obstructive pulmonary disease) (Chronic) Atrial fibrillation (Chronic) Paroxysmal per hospital records; not anticoagulated secondary to recurrent GI bleeds from chronic EtOH use Alcohol use disorder (Chronic) Medical History Acute upper gastrointestinal bleeding (~02/2022) Gastric ulcer Troponin level elevated Gout Colchicine prevention Sleeping difficulty Melatonin RX Palliative care patient [place] Insomnia Radicular pain of right lower extremity GI bleed Tineo's esophagus Right knee pain UTI (urinary tract infection) Hematemesis Depression Renal insufficiency Smoking hx Surgical History H/O esophagogastroduodenoscopy (~04/2019) [place] 10[place]26[place] [facility] [place]itis w/ non-bleeding esophageal ulcer. Multiplle inflammatory appearing nodules at [facility] Social History Smoking/Tobacco Use Status: Current every day Tobacco Type: cigarettes Years smoked: 50 Smoking risk assessment performed?: Yes Alcohol Intake: current Alcohol Intake frequency: other Alcohol type: hard liquor Drug use: Never Substance use type: does not use Details: Pt has not had alcohol since being at the [facility]. 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) What type of physical activity do you participate in: none Do you feel safe at home: Yes Do you feel safe in your relationship?: Yes Meds Allergies and Home Medications Allergies Allergy/AdvReac Type Severity Reaction Status Date / Time bupropion AdvReac Severe seizures Verified 04/10/24 21:23 Home Medications ?Medication ?Instructions ?Recorded ?Confirmed ?Type atorvastatin 40 mg tablet 40 mg PO QHS #90 tabs 09/27/22 04/10/24 Rx levalbuterol tartrate 45 1 - 2 puff inhalation Q4H #15 grams 04/18/23 04/10/24 Rx mcg/actuation aerosol inhaler magnesium chloride 64 mg 64 mg PO DAILY AM #90 tabs 04/18/23 04/10/24 Rx (magnesium chloride) tablet pantoprazole 40 mg tablet,delayed 40 mg PO DAILY AM #90 tabs 04/18/23 04/10/24 Rx release tamsulosin 0.4 mg capsule 0.8 mg (2 x 0.4 mg) PO DAILY #180 04/18/23 04/10/24 Rx caps loratadine 10 mg tablet 10 mg PO DAILY #90 tabs 04/22/23 04/10/24 Rx ibuprofen 600 mg tablet 600 mg PO BID PRN pain #12 tabs 06/19/23 04/10/24 Rx metoclopramide HCl 10 mg tablet 10 mg PO Q6H PRN #20 tabs 08/29/23 04/10/24 Rx (Reglan) Exam Narrative Exam Narrative: General: Patient appears older than stated age, thin but not cachectic with muscle wasting diffusely. He is in moderate distress with his discomfort of nausea and weakness. He is alert and oriented to person, place and time. Patient present does have the smell of alcohol. HEENT: Normocephalic, unkempt along hair and irwin with coarsened facial features. Eyes with pupils equal and reactive to light symmetrically, extraocular movement intact and sclera anicteric. Oropharynx with dry mucosa and poor dentition. Neck: Supple without JVD. Lungs: Fair to poor aeration with no increased expiratory phase or expiratory wheeze at the time of my exam. Bronchovesicular sounds diffusely with no focalizing rales or rhonchi. Heart: Irregular rhythm with normal rate, 3/6 to 4/6 systolic murmur left sternal border. No gallop or rubs. Abdomen: Scaphoid contour, soft and nontender to palpation with no focalizing guarding or rebound. No palpable hepatosplenomegaly. Bowel sounds positive all quadrants. Genitalia/rectal: Exam deferred. Patient has Cornejo catheter in place draining clear urine. Extremities: Nonpitting edema lower extremities with slight clubbing, no cyanosis. Fair capillary refill. Diffuse muscle atrophy. Skin: Pale, warm and dry. Bruising over right buttock which appears new. No skin breakdown noted. Neuro: Cranial nerves II through XII gross intact, no focalizing motor deficits. No tremor. Psych: Flattened affect with depressed mood. No abnormal thought processes. Remote and recent memory appear to be grossly intact. Patient has minimal conversation with slow monotonous tone to voice and ruminates over his depression and being alone. Results Imaging Imaging Studies: EXAM: CT HEAD CERVICAL SPINE WO CLINICAL HISTORY: AMS, vomiting, ETOH use. COMPARISON: CT CT HEAD CERVICAL SPINE WO from 03/17/2024 FINDINGS: The examination is limited due to patient motion artifact. CT Head: Ventricles and Extra axial spaces: Normal in size and morphology for the patient's age. Hemorrhage: None. Cerebral parenchyma: There are areas of decreased attenuation in the white matter consistent with chronic microvascular ischemic disease. There are lacunar infarcts seen bilaterally in the thalami and the basal ganglia. No acute mass effect is present. Midline shift: None. Brainstem/Cerebellum: Normal. Calvarium: Normal. Visualized Paranasal sinuses/Mastoids: There is a mucous retention cyst or polyp in the right maxillary sinus. No fluid levels are seen. The mastoid air cells are clear. Soft Tissues: Unremarkable. CT Cervical Spine: Bones: No acute fracture or subluxation. Age-appropriate degenerative changes are present. There is congenital nonunion of the posterior arch of C1. There is again seen a C3 hemivertebra present. 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 Soft Tissues: Atherosclerotic calcification is present. Lung Apices: Clear. IMPRESSION: 1. No acute intracranial process. 2. No acute fracture or subluxation in the cervical spine. Exam: CT Chest With Contrast; Diagnostic Exam date and time: 04/10/2024 22:50 Age: 78 years old Clinical indication: Vomiting; Cough; Additional info: Cough, vomiting/diarrhea TECHNIQUE: Imaging protocol: Diagnostic computed tomography of the chest with contrast. 3D rendering (Not supervised by radiologist): MIP and/or 3D reconstructed images were created by the technologist. Contrast material: OMNI 350; Contrast volume: 100 ml; Contrast route: INTRAVENOUS (IV); COMPARISON: CT CHEST/ABD/PEL WO 03/17/2024 12:25 FINDINGS: Lungs: Motion artifact in the lungs. The lungs appear hyperinflated. Minor subsegmental atelectasis left upper lobe, similar to prior. No airspace consolidation. Suspected mild bronchial wall thickening would be similar. Pleural spaces: No pneumothorax. No pleural effusion. Heart: Mild cardiomegaly, similar to prior. Trace pericardial fluid appears likely physiologic. Lymph nodes: No enlarged lymph nodes. Vasculature: No aortic aneurysm. Bones/joints: No acute fracture or subluxation. Soft tissues: Gynecomastia. IMPRESSION: 1. Mild cardiomegaly, similar to prior. 2. Probable mild chronic bronchitis. 3. Incidental findings as described. PROCEDURE INFORMATION: Exam: CT Abdomen And Pelvis With Contrast Exam date and time: 04/10/2024 22:50 Age: 78 years old Clinical indication: Vomiting; Cough; Additional info: Cough, vomiting/diarrhea COMPARISON: CT CHEST/ABD/PEL WO 03/17/2024 12:25 FINDINGS: Liver: Tiny benign hepatic cysts and probable cysts, similar to prior. No hepatic masses. Gallbladder and biliary ducts: No calcified stones. No gross ductal dilation. Pancreas: No ductal dilation. No mass . Spleen: No splenomegaly or suspicious lesions. Adrenal glands: No suspicious mass. Kidneys and ureters: No hydronephrosis. No masses. Stomach and bowel: No definite gastric wall thickening, motion artifact and decompression. Colonic diverticulosis without diverticulitis. No colitis or enteritis. No obstruction. Appendix: No evidence of appendicitis. Intraperitoneal space: No free air. No significant fluid collection. Vasculature: Minor chronic likely penetrating ulcer of the aorta at the aortic hiatus. Multifocal atherosclerosis and chronic stenosis of the right common iliac artery. Lymph nodes: No significantly enlarged lymph nodes. Urinary bladder: Cornejo catheter in a decompressed urinary bladder. Mild probable chronic outlet obstructive changes of the urinary bladder. Reproductive: Unremarkable as visualized. Bones/joints: Chronic bony changes with no acute fracture. No acute fracture or subluxation. Soft tissues: No suspicious lesions. Other findings: Motion artifact in the abdomen. IMPRESSION: 1. No acute findings. 2. Cornejo catheter in a decompressed urinary bladder. 3. Incidental findings as described. EXAM: Comprehensive 2D, Doppler, and color-flow Echocardiogram Date of Exam: 03/27/22 Indications: NSTEMI, COPD Other Information Study Quality: Fair. Technically limited study due to body habitus, inability to position patient exam done supine bedside icu. Conclusion Technically limited study Patient was in atrial fibrillation throughout, rate controlled Left ventricle is grossly normal in size and mildly reduced and systolic function. Estimated ejection fraction is 45-50%. There is global hypokinesis. No segmental wall motion abnormalities were appreciated The atria were not well visualized Aortic valve is sclerotic without stenosis or regurgitation Within the limits of the study there was no additional structural or hemodynamically significant valvular disease Estimated right ventricular systolic pressure was 29 mmHg Labs 04/10/24 21:25 04/10/24 21:25 Labs: Laboratory Results - last 24 hr 04/10/24 04/10/24 04/10/24 21:25 21:32 21:35 WBC 3.55 L RBC 3.85 L Hgb 8.0 L Hct 27.5 L MCV 71 L MCH 20.8 L MCHC 29.1 L RDW 19.0 H Plt Count 284 MPV 8.7 Immature Gran % 0.3 Neutrophils % 41.9 Lymphocytes % 42.5 Monocytes % 11.3 Eosinophils % 1.7 Basophils % 2.3 Nucleated RBC % 0.0 Absolute Neutrophils 1.49 Absolute Lymphocytes 1.51 Absolute Monocytes 0.40 Absolute Eosinophils 0.06 Absolute Basophils 0.08 RBC Morphology See Below Hypochromasia 2+ Poikilocytosis 1+ Anisocytosis 1+ Microcytosis 2+ VBG pH 7.33 VBG pCO2 42 VBG pO2 49 VBG HCO3 22 L VBG Total CO2 21 L VBG O2 Saturation 75 VBG Base Excess -4 L VBG Lactate 3.8 H* Sodium 144 Cancelled Potassium 4.3 Cancelled Chloride 106 Cancelled Carbon Dioxide 24.6 Cancelled Anion Gap 13.4 H Cancelled BUN 30 H Cancelled Creatinine 2.0 H Cancelled Est GFR (CKD-EPI 2020) 33.74 Cancelled Glucose 78 Cancelled Calcium 8.4 L Cancelled Total Bilirubin 0.39 Cancelled AST 24 Cancelled ALT 20 Cancelled Alkaline Phosphatase 48 Cancelled Troponin I < 50 Total Protein 6.5 Cancelled Albumin 3.4 Cancelled Lipase 24 Urine Color Yellow Urine Clarity Clear Urine pH 5.0 Ur Specific [place] 1.020 Urine Protein Negative Urine Ketones Negative Urine Blood Negative Urine Nitrite Negative Urine Bilirubin Negative Urine Urobilinogen 0.2 Ur Leukocyte Esterase Negative Urine Glucose Negative Salicylates 4.8 Urine Opiates Screen Negative Urine Methadone Screen Negative Acetaminophen < 2 Ur Barbiturates Screen Negative Ur Tricyclics Screen Negative Ur Amphetamines Screen Negative U Benzodiazepines Scrn Negative Urine Cocaine Screen Negative Ur THC Screen Negative Ethyl Alcohol 303.1 H COVID-19 Source SARS-CoV-2 (PCR) Influenza Type A (PCR) Influenza Type B (PCR) RSV (PCR) 04/10/24 04/11/24 21:43 00:57 WBC RBC Hgb Hct MCV MCH MCHC RDW Plt Count MPV Immature Gran % Neutrophils % Lymphocytes % Monocytes % Eosinophils % Basophils % Nucleated RBC % Absolute Neutrophils Absolute Lymphocytes Absolute Monocytes Absolute Eosinophils Absolute Basophils RBC Morphology Hypochromasia Poikilocytosis Anisocytosis Microcytosis VBG pH VBG pCO2 VBG pO2 VBG HCO3 VBG Total CO2 VBG O2 Saturation VBG Base Excess VBG Lactate 5.5 H* Sodium Potassium Chloride Carbon Dioxide Anion Gap BUN Creatinine Est GFR (CKD-EPI 2020) Glucose Calcium Total Bilirubin AST ALT Alkaline Phosphatase Troponin I < 50 Total Protein Albumin Lipase Urine Color Urine Clarity Urine pH Ur Specific [place] Urine Protein Urine Ketones Urine Blood Urine Nitrite Urine Bilirubin Urine Urobilinogen Ur Leukocyte Esterase Urine Glucose Salicylates Urine Opiates Screen Urine Methadone Screen Acetaminophen Ur Barbiturates Screen Ur Tricyclics Screen Ur Amphetamines Screen U Benzodiazepines Scrn Urine Cocaine Screen Ur THC Screen Ethyl Alcohol COVID-19 Source Nasopharynx SARS-CoV-2 (PCR) Negative Influenza Type A (PCR) Negative Influenza Type B (PCR) Negative RSV (PCR) Negative Last Vital Signs Temp 36 C L 04/10/24 21:24 Pulse 96 H 04/11/24 01:35 Resp 17 04/11/24 01:40 BP 134/82 04/11/24 01:35 Pulse Ox 96 04/11/24 01:40 Time Spent Time spent with Patient: >75 minutes Time was spent: preparing to see the patient(eg.review tests), obtaining and/or reviewing separately otained hiistory, ordering medications,tests, procedures, indepentently interpreting results, counseling the patient and care coordination
[2024-04-11 02:46] LABS: Creatine Kinase 57 U/L (39-308)
[2024-04-11 02:55] LABS: Magnesium 1.2 mg/dL (1.8-2.4)
--- NOTE | 2024-04-11 02:55 | W.PCEDHO ---
Registration Status: Primary Language: Preferred Language: ED Information & Data Chief Complaint GenMedical 04/10/24 21:37 Triage Note BIBA for general unwell. Pt 04/10/24 21:15 did not want to be brought in. Per EMS rhales and wheezing, n/v/d, increased weakness, states i feel like I'm dying. 1 duoneb enroute. Pt states can't walk. A&O to self, wont answer questions. EMS reports feces all over house as well as 95 degrees inside. Medical / Surgical History Acute upper gastrointestinal bleeding (~02/2022) Gastric ulcer Troponin level elevated Gout Sleeping difficulty Palliative care patient Insomnia Radicular pain of right lower extremity GI bleed Cooper's esophagus Right knee pain UTI (urinary tract infection) Hematemesis Depression Renal insufficiency Smoking hx (Last Reviewed 04/11/24 @ 01:57 by Crescencio Rivas) H/O esophagogastroduodenoscopy (~04/2019) Most Recent Vital Signs Temperature 36 C L 04/10/24 21:24 Temperature Source Temporal Artery Scan 04/10/24 21:24 Pulse 90 04/11/24 02:16 Pulse 92 H 04/11/24 02:20 Respiratory Rate 17 04/11/24 02:20 Respiratory Effort Non-Labored 04/10/24 21:49 Respiratory Depth Normal 04/10/24 22:20 Respiratory Pattern Normal 04/10/24 22:20 Blood Pressure 144/71 H 04/11/24 02:16 Blood Pressure Mean 99 04/11/24 02:16 Blood Pressure Position Supine 04/10/24 21:24 Pulse Oximetry 96 04/11/24 02:20 Oxygen Delivery Method Room Air 04/10/24 22:20 Oxygen Flow Rate 0 04/10/24 22:20 Pain Level 0 04/10/24 21:15 Allergies bupropion Adverse Reaction (Severe, Verified 04/10/24 21:23) seizures 09/02/20- pt reports he fell, Nobody ever told me I had seizures Precautions Isolation Standard precaution 04/10/24 21:22 Active Medications Generic Name Dose Route Start Last Admin Trade Name Freq PRN Reason Stop Dose Admin Iohexol 100 ml 04/10/24 23:15 04/10/24 23:06 Omnipaque 350 Mg/Ml 100 Ml Btl IJ 08/11/24 23:59 100 ml DIRECTED SHANICE Administration Sodium Chloride 50 ml 04/10/24 23:15 04/10/24 23:06 Normal Saline - Diluent 50 Ml Vial IJ 50 ml .FOR DI USE SHANICE Administration IV IV Catheter Type [Left Wrist] Peripheral IV IV Catheter Type [Right Peripheral IV Antecubital] IV Catheter Gauge [Left Wrist] 18 IV Catheter Gauge [Right 18 Antecubital] Diet Orders Category Date Time Status Heart Healthy Eating [DIET] Nutrition 04/11/24 Breakfast Active Diagnostics 04/11/24 04/11/24 04/11/24 Range/Units 05:35 02:16 00:57 WBC Pending (4.4-10.8) 10^3/uL RBC Pending (4.36-5.78) 10^6/uL Hgb Pending (13.5-17.5) g/dL Hct Pending (40.0-50.0) % MCV Pending (80-95) fL MCH Pending (27.0-33.0) pg MCHC Pending (32.0-36.0) % RDW Pending (11.8-14.1) % Plt Count Pending (130-400) 10^3/uL MPV Pending (8.0-11.0) fL Immature Gran % % Neutrophils % % Lymphocytes % % Monocytes % % Eosinophils % % Basophils % % Nucleated RBC % (0.0-0.3) % Absolute Neutrophils (1.2-6.7) 10^3/uL Absolute Lymphocytes (1.2-3.4) 10^3/uL Absolute Monocytes (0.1-0.8) 10^3/uL Absolute Eosinophils (0.0-0.7) 10^3/uL Absolute Basophils (0.0-0.2) 10^3/uL RBC Morphology Hypochromasia Poikilocytosis Anisocytosis Microcytosis PT Pending INR Pending VBG pH (7.31-7.41) VBG pCO2 (41-51) mmHg VBG pO2 mmHg VBG HCO3 (23-28) mmol/L VBG Total CO2 (24-29) mmol/L VBG O2 Saturation % VBG Base Excess (-2-3) mmol/L VBG Lactate Pending 5.5 H* (0.6-1.4) mmol/L Sodium Pending (136-145) mmol/L Potassium Pending (3.5-5.1) mmol/L Chloride Pending (98-107) mmol/L Carbon Dioxide Pending (21.0-32.0) mmol/L Anion Gap Pending (3-11) mmol/L BUN Pending (7-18) mg/dL Creatinine Pending (0.70-1.30) mg/dL Est GFR (CKD-EPI 2020) Pending (mL/min/1.73m2) Glucose Pending (74-106) mg/dL Calcium Pending (8.5-10.1) mg/dL Phosphorus Pending Magnesium Pending Total Bilirubin Pending (0.2-1.0) mg/dL Conjugated Bilirubin Pending AST Pending (15-37) U/L ALT Pending (16-63) U/L Alkaline Phosphatase Pending (46-116) U/L Creatine Kinase Troponin I < 50 (< or =60) ng/L NT-Pro-B Natriuret Pep (<300) pg/mL Total Protein Pending (6.4-8.2) g/dL Albumin Pending (3.4-5.0) g/dL Lipase (16-77) U/L TSH Urine Color (Yellow) Urine Clarity (Clear) Urine pH (5-8) Ur Specific [place] (1.005-1.025) Urine Protein (Neg-Trace) mg/dL Urine Ketones (Negative) mg/dL Urine Blood (Negative) Urine Nitrite (Negative) Urine Bilirubin (Negative) Urine Urobilinogen (Up to 0.2) mg/dL Ur Leukocyte Esterase (Negative) Urine Glucose (Negative) mg/dL Salicylates (<2.8) mg/dL Urine Opiates Screen (Negative) Urine Methadone Screen (Negative) Acetaminophen (10-30) ug/mL Ur Barbiturates Screen (Negative) Ur Tricyclics Screen (Negative) Ur Amphetamines Screen (Negative) U Benzodiazepines Scrn (Negative) Urine Cocaine Screen (Negative) Ur THC Screen (Negative) Ethyl Alcohol (<10) mg/dL COVID-19 Source SARS-CoV-2 (PCR) (Negative) Influenza Type A (PCR) (Negative) Influenza Type B (PCR) (Negative) RSV (PCR) (Negative) 07/13/24 07/12/24 07/12/24 Range/Units 00:51 21:43 21:35 WBC (4.4-10.8) 10^3/uL RBC (4.36-5.78) 10^6/uL Hgb (13.5-17.5) g/dL Hct (40.0-50.0) % MCV (80-95) fL MCH (27.0-33.0) pg MCHC (32.0-36.0) % RDW (11.8-14.1) % Plt Count (130-400) 10^3/uL MPV (8.0-11.0) fL Immature Gran % % Neutrophils % % Lymphocytes % % Monocytes % % Eosinophils % % Basophils % % Nucleated RBC % (0.0-0.3) % Absolute Neutrophils (1.2-6.7) 10^3/uL Absolute Lymphocytes (1.2-3.4) 10^3/uL Absolute Monocytes (0.1-0.8) 10^3/uL Absolute Eosinophils (0.0-0.7) 10^3/uL Absolute Basophils (0.0-0.2) 10^3/uL RBC Morphology Hypochromasia Poikilocytosis Anisocytosis Microcytosis PT INR VBG pH (7.31-7.41) VBG pCO2 (41-51) mmHg VBG pO2 mmHg VBG HCO3 (23-28) mmol/L VBG Total CO2 (24-29) mmol/L VBG O2 Saturation % VBG Base Excess (-2-3) mmol/L VBG Lactate (0.6-1.4) mmol/L Sodium (136-145) mmol/L Potassium (3.5-5.1) mmol/L Chloride (98-107) mmol/L Carbon Dioxide (21.0-32.0) mmol/L Anion Gap (3-11) mmol/L BUN (7-18) mg/dL Creatinine (0.70-1.30) mg/dL Est GFR (CKD-EPI 2020) (mL/min/1.73m2) Glucose (74-106) mg/dL Calcium (8.5-10.1) mg/dL Phosphorus Magnesium Pending Total Bilirubin (0.2-1.0) mg/dL Conjugated Bilirubin AST (15-37) U/L ALT (16-63) U/L Alkaline Phosphatase (46-116) U/L Creatine Kinase Pending Troponin I (< or =60) ng/L NT-Pro-B Natriuret Pep (<300) pg/mL Total Protein (6.4-8.2) g/dL Albumin (3.4-5.0) g/dL Lipase (16-77) U/L TSH Pending Urine Color Yellow (Yellow) Urine Clarity Clear (Clear) Urine pH 5.0 (5-8) Ur Specific [place] 1.020 (1.005-1.025) Urine Protein Negative (Neg-Trace) mg/dL Urine Ketones Negative (Negative) mg/dL Urine Blood Negative (Negative) Urine Nitrite Negative (Negative) Urine Bilirubin Negative (Negative) Urine Urobilinogen 0.2 (Up to 0.2) mg/dL Ur Leukocyte Esterase Negative (Negative) Urine Glucose Negative (Negative) mg/dL Salicylates (<2.8) mg/dL Urine Opiates Screen Negative (Negative) Urine Methadone Screen Negative (Negative) Acetaminophen (10-30) ug/mL Ur Barbiturates Screen Negative (Negative) Ur Tricyclics Screen Negative (Negative) Ur Amphetamines Screen Negative (Negative) U Benzodiazepines Scrn Negative (Negative) Urine Cocaine Screen Negative (Negative) Ur THC Screen Negative (Negative) Ethyl Alcohol (<10) mg/dL COVID-19 Source Nasopharynx SARS-CoV-2 (PCR) Negative (Negative) Influenza Type A (PCR) Negative (Negative) Influenza Type B (PCR) Negative (Negative) RSV (PCR) Negative (Negative) 04/10/24 04/10/24 Range/Units 21:32 21:25 WBC 3.55 L (4.4-10.8) 10^3/uL RBC 3.85 L (4.36-5.78) 10^6/uL Hgb 8.0 L (13.5-17.5) g/dL Hct 27.5 L (40.0-50.0) % MCV 71 L (80-95) fL MCH 20.8 L (27.0-33.0) pg MCHC 29.1 L (32.0-36.0) % RDW 19.0 H (11.8-14.1) % Plt Count 284 (130-400) 10^3/uL MPV 8.7 (8.0-11.0) fL Immature Gran % 0.3 % Neutrophils % 41.9 % Lymphocytes % 42.5 % Monocytes % 11.3 % Eosinophils % 1.7 % Basophils % 2.3 % Nucleated RBC % 0.0 (0.0-0.3) % Absolute Neutrophils 1.49 (1.2-6.7) 10^3/uL Absolute Lymphocytes 1.51 (1.2-3.4) 10^3/uL Absolute Monocytes 0.40 (0.1-0.8) 10^3/uL Absolute Eosinophils 0.06 (0.0-0.7) 10^3/uL Absolute Basophils 0.08 (0.0-0.2) 10^3/uL RBC Morphology See Below Hypochromasia 2+ Poikilocytosis 1+ Anisocytosis 1+ Microcytosis 2+ PT INR VBG pH 7.33 (7.31-7.41) VBG pCO2 42 (41-51) mmHg VBG pO2 49 mmHg VBG HCO3 22 L (23-28) mmol/L VBG Total CO2 21 L (24-29) mmol/L VBG O2 Saturation 75 % VBG Base Excess -4 L (-2-3) mmol/L VBG Lactate 3.8 H* (0.6-1.4) mmol/L Sodium Cancelled 144 (136-145) mmol/L Potassium Cancelled 4.3 (3.5-5.1) mmol/L Chloride Cancelled 106 (98-107) mmol/L Carbon Dioxide Cancelled 24.6 (21.0-32.0) mmol/L Anion Gap Cancelled 13.4 H (3-11) mmol/L BUN Cancelled 30 H (7-18) mg/dL Creatinine Cancelled 2.0 H (0.70-1.30) mg/dL Est GFR (CKD-EPI 2020) Cancelled 33.74 (mL/min/1.73m2) Glucose Cancelled 78 (74-106) mg/dL Calcium Cancelled 8.4 L (8.5-10.1) mg/dL Phosphorus Magnesium Total Bilirubin Cancelled 0.39 (0.2-1.0) mg/dL Conjugated Bilirubin AST Cancelled 24 (15-37) U/L ALT Cancelled 20 (16-63) U/L Alkaline Phosphatase Cancelled 48 (46-116) U/L Creatine Kinase Troponin I < 50 (< or =60) ng/L NT-Pro-B Natriuret Pep 2372 H (<300) pg/mL Total Protein Cancelled 6.5 (6.4-8.2) g/dL Albumin Cancelled 3.4 (3.4-5.0) g/dL Lipase 24 (16-77) U/L TSH Urine Color (Yellow) Urine Clarity (Clear) Urine pH (5-8) Ur Specific [place] (1.005-1.025) Urine Protein (Neg-Trace) mg/dL Urine Ketones (Negative) mg/dL Urine Blood (Negative) Urine Nitrite (Negative) Urine Bilirubin (Negative) Urine Urobilinogen (Up to 0.2) mg/dL Ur Leukocyte Esterase (Negative) Urine Glucose (Negative) mg/dL Salicylates 4.8 (<2.8) mg/dL Urine Opiates Screen (Negative) Urine Methadone Screen (Negative) Acetaminophen < 2 (10-30) ug/mL Ur Barbiturates Screen (Negative) Ur Tricyclics Screen (Negative) Ur Amphetamines Screen (Negative) U Benzodiazepines Scrn (Negative) Urine Cocaine Screen (Negative) Ur THC Screen (Negative) Ethyl Alcohol 303.1 H (<10) mg/dL COVID-19 Source SARS-CoV-2 (PCR) (Negative) Influenza Type A (PCR) (Negative) Influenza Type B (PCR) (Negative) RSV (PCR) (Negative) 04/10/24 21:28 Blood Culture - Pending Blood 04/10/24 21:25 Blood Culture - Pending Blood [id number] Documentation Fingerstick Glucose Start: 04/10/24 21:36 Freq: .Stat Status: Active Protocol: Activity Type Activity Date Activity User E-sign Co-sign Detail Recorded Client Recorded Date Recorded By Document 04/10/24 21:48 BKG DAEMON(7) [id number] 04/10/24 21:49 BKG DAEMON(8) Intake and Output - 24 Hour Total 04/10/24 21:13 thru 04/11/24 01:58 Intake Total 2316 Output Total 700 Balance 1616 Weight 63.775 kg Intake: IV 2316 Output: Urine 700 Other: Urine Color Yellow Urine Appearance Clear Urinary Catheter Urinary Catheter Date of 04/10/24 Insertion [Uretheral (Cornejo)] Time of insertion [Uretheral ( 21:35 Cornejo)] Falls Risk Assessment History of Falls Previous History 04/10/24 21:49 Contributing Factors Confusion,Impairments, 04/10/24 21:49 Incontinence Ambulatory Aids Independent 04/10/24 21:49 Tubes/Lines With any additional score 04/10/24 21:49 Gait Evaluation W/any additional score 04/10/24 21:49 Cognition Cognitive impairment 04/10/24 21:49 Fall Total Score 79 04/10/24 21:49 Level of Risk Maximum Risk 04/10/24 21:49 Problems (Last Reviewed 04/11/24 @ 01:57 by Crescencio Rivas) Dehydration, mild (Acute) CKD (chronic kidney disease) stage 3, GFR 30-59 ml/min (Chronic) Lactic acidosis (Acute) Iron deficiency anemia due to chronic blood loss (Chronic) Falls frequently (Acute) Hyperlipidemia (Chronic) Tobacco abuse disorder (Chronic) CHF (congestive heart failure) (Chronic ~02/2023) Hypomagnesemia (Chronic) COPD (chronic obstructive pulmonary disease) (Chronic) Atrial fibrillation (Chronic) Alcohol use disorder (Chronic) v v v v v v v v v Sending and/or Receiving Nurses: Please use comment section below to note any information pertinent to the patient hand-off not included above. Information / Comments: [facility] brought patient in. Pt had dropped glasses and couldn't walk. Audible rales and wheezing upon EMS arrival, 1 duoneb given enroute. Failure to thrive, pt caked in feces and vomit. Pt has 2 18 guage IV access, 1 Left wrist, 1 right AC. Lactate climbing with 2 liters of fluid. Pt claims everything hurts without specific location. Pt LOC improving from arrival with only knowing name Patient bedbound on arrival and is improving, able to sit up in bed. Daily drinker (currently 0 CIWA) Smoker Oxygen has improved from 91% to 96-97% currently. Pressure sore on coccyx blanchable, red on observation. Cornejo inserted in ED. Thiamine, 1/2 mg Haladol, 1 gram Tylenol given. Report received from:Edgar Elizalde RN
[2024-04-11] MEDS: Albuterol/Ipratropium 3 ML UPD VIAL UPD ×4 (03:59→21:38)
[2024-04-11] MEDS: Doxycycline Hyclate 100 MG CAP PO ×3 (04:06→20:29)
[2024-04-11] MEDS: MAGNESIUM SULFATE 4 GM/100 ML BAG IVINF (04:06)
[2024-04-11] MEDS: Normal Saline Flush 10 ML SYR IVP ×4 (04:07→20:31)
[2024-04-11] MEDS: Normal Saline 1,000 ML 100 ML IV (04:53)
[2024-04-11] MEDS: Acetaminophen 325 MG TAB PO (05:12)
--- NOTE | 2024-04-11 08:19 | INITIAL_ITS ---
Date of service: 04/11/24 Time of Service: 08:20 Care Management Initial Assmt Initial Assessment Reason for Hospitalization: Frequent Falls, Dehydration Functional Status/Living Situation Patient Presentation: Khoi was sitting up in bed when CM met with him. He is appropriate in interaction, pleasant and easily engages in conversation. Khoi has services through the [facility] and receives [facility]. He says he only leaves his apartment to get groceries. Khoi does not have any local family or friends and other than [facility] staff. Town of Residence: [facility] Resides with: Alone Natural Supports: none Employment Status: Retired and Disabled Instrumental Activities of Daily Living (ADLs): Requires support Medications Medication Management: Issues/Barriers with Other (Khoi says he got depressed and ran out of all of his meds.) Physical Functioning/Mobility Assistive Device: [facility], [facility], [facility] Housing Uses a Walker, RCT and requires a lift assist to get in an out of his apartment. Advance Directives Advance Directives: Do you have an Advance Directive: N 03/19/22 14:58 AD On File at [facility]: N 03/19/22 14:58 Date Asked 04/11/24 04/11/24 07:12 AD Date Reviewed COLST On File at [facility] Yes 03/19/22 14:57 COLST Date Scanned 03/14/23 03/14/23 00:20 Code Status Resuscitation Status Full Code Portal Pt does not currently have a portal and education provided: Yes Insurance Coverage/Financial Issues Financial Issues: Pt has an apartment in [facility] through [facility] and needs help mailing them a money order for his rent (MO was obtained prior to hospitalization.) CM mailed check to [address] at pts request. Copy of check was placed in patients paper chart. Care Team Visit Care Team Role Provider Type Desirae Panda NP Primary Care Provider NURSE PRACTITIONER Viji Brown Other Providers REG OCCUPATIONAL THERAPIST InPatient Gordon King Other Providers OTHER Luci Ignacio MD Emergency Provider [facility] STAFF PHYSICIAN Crescencio Rivas Admit Provider NON-[facility] STAFF PHYSICIAN Attending Provider Discharge Potential Discharge Needs: PT Evaluation and PCP F/U Appt Anticipated Barriers to Discharge: None Identified Patient/Family Education Needs: Review discharge instructions, discuss Ask Me Three Transportation: Other (Dependent on disposition and mobility level at the time of discharge. ) Plan: PT recommends SNF for STR vs. Home with services once medically ready to discharge. Khoi is agreeable to SNF for STR, CM sent referral to the [facility] [address] , at pts request. Transportation will be dependent on his disposition and mobility needs at the time of discharge. CM will follow. PFSH All Active Problems Dehydration (Acute) Acidosis, lactic (Acute) Dehydration, mild (Acute) CKD (chronic kidney disease) stage 3, GFR 30-59 ml/min (Chronic) Lactic acidosis (Acute) Iron deficiency anemia due to chronic blood loss (Chronic) Falls frequently (Acute) Blunt head trauma (Acute) Blunt trauma of multiple sites of trunk (Acute) Fall (Acute) Impaired gait and mobility (Acute ~03/2023) Hyperlipidemia (Chronic) Tobacco abuse disorder (Chronic) Cut down 1/2PPD Personal history of noncompliance with medical treatment and regimen (Chronic) Alcoholic liver disease (Chronic) Anemia (Chronic ~02/2022) S/P GI bleed CHF (congestive heart failure) (Chronic ~02/2023) ECHO 02/2022 LVEF 45-50% Depression (Chronic) Plans on getting connected to social work Tineo's esophagus (Chronic ~04/2019) ETOH; Upper endoscopy 03/2019 (see path report--no tineo's?, but 08/15/2019 surg note says +tineo's) Weakness (Acute) LE weakness; Home PT Urinary retention (Chronic) Dr. Ramos Hypomagnesemia (Chronic) COPD (chronic obstructive pulmonary disease) (Chronic) Atrial fibrillation (Chronic) Paroxysmal per hospital records; not anticoagulated secondary to recurrent GI bleeds from chronic EtOH use Alcohol use disorder (Chronic) Medical History Acute upper gastrointestinal bleeding (~02/2022) Gastric ulcer Troponin level elevated Gout Colchicine prevention Sleeping difficulty Melatonin RX Palliative care patient [place] Insomnia Radicular pain of right lower extremity GI bleed Tineo's esophagus Right knee pain UTI (urinary tract infection) Hematemesis Depression Renal insufficiency Smoking hx Surgical History H/O esophagogastrodu[place]oscopy (~04/2019) [place] [facility] [place] w/ non-bleeding esophageal ulcer. Multiplle inflammatory appearing nodules at [facility] Social History Smoking/Tobacco Use Status: Current every day Tobacco Type: cigarettes Years smoked: 50 Smoking risk assessment performed?: Yes Alcohol Intake: current Alcohol Intake frequency: other Alcohol type: hard liquor Drug use: Never Substance use type: does not use Details: Pt has not had alcohol since being at the [facility]. 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
[2024-04-11] MEDS: Tamsulosin 0.4 MG CAPCR 0.8 MG PO (08:49)
[2024-04-11] MEDS: Folic Acid 1 MG TAB PO (08:49)
[2024-04-11] MEDS: Thiamine 100 MG TAB PO (08:49)
[2024-04-11] MEDS: Multivitamin TAB 1 TAB PO (08:49)
--- NOTE | 2024-04-11 09:27 | PT.INIE ---
Date of service: 04/11/24 Time of Service: 09:10 PT Notes Visit Reasons: Frequent Falls with Mild Dehydration,Lacticacidosi Inpatient Physical Therapy Evaluation Date: April 11, 2024 Referring Doctor: Crescencio Rivas PT Orders: PT CONSULT: Limited Ability Precautions: Standard, Falls Patient Profile/Admitting Diagnosis: Khoi is a 78yo M presenting with generalized weakness due to dehydration and lacticacidosis. He called EMS from home, has been unable to walk due to severe weakness and not feeling well. PMHX: Dehydration (Acute) Acidosis, lactic (Acute) Dehydration, mild (Acute) CKD (chronic kidney disease) stage 3, GFR 30-59 ml/min (Chronic) Lactic acidosis (Acute) Iron deficiency anemia due to chronic blood loss (Chronic) Falls frequently (Acute) Blunt head trauma (Acute) Blunt trauma of multiple sites of trunk (Acute) Fall (Acute) Impaired gait and mobility (Acute ~03/2023) Hyperlipidemia (Chronic) Tobacco abuse disorder (Chronic) Cut down 1/2PPDPersonal history of noncompliance with medical treatment and regimen (Chronic) Alcoholic liver disease (Chronic) Anemia (Chronic ~02/2022) S/P GI bleedCHF (congestive heart failure) (Chronic ~02/2023) ECHO 02/2022 LVEF 45-50%Depression (Chronic) Plans on getting connected to social workBarrett's esophagus (Chronic ~04/2019) ETOH; Upper endoscopy 03/2019 (see path report--no tineo's?, but 08/15/2019 surg note says +tineo's)Weakness (Acute) LE weakness; Home PTUrinary retention (Chronic) Dr. Shannonpomagnesemia (Chronic) COPD (chronic obstructive pulmonary disease) (Chronic) Atrial fibrillation (Chronic) Paroxysmal per hospital records; not anticoagulated secondary to recurrent GI bleeds from chronic EtOH useAlcohol use disorder (Chronic) Medical History Acute upper gastrointestinal bleeding (~02/2022) Gastric ulcer Troponin level elevated Gout Colchicine preventionSleeping difficulty Melatonin RXPalliative care patient DobbertinInsomnia Radicular pain of right lower extremity GI bleed Tineo's esophagus Right knee pain UTI (urinary tract infection) Hematemesis Depression Renal insufficiency Smoking hx Surgical History H/O esophagogastroduodenoscopy (~04/2019) Repeat on 10/26/20 [facility] [place] severe reflux esophagitis w/ non-bleeding esophageal ulcer. Multiple inflammatory appearing nodules at GEJ Social History/Home Situation: Khoi lives alone in a private apartment. Has 15 steps to enter. This is very difficult for him to perform. Utilizes a taxi for transportation to get his groceries. Also has meals on wheels. Notes that he does not bath due to fear of falling getting into and out of the shower. Does have a shower chair however no grab bars to assist him in. Notes that he does have a walker and cane at home. Does utilize them on occasion due to weakness. Notes that he has fallen 3 times over the last year. Primarily his falls occur if he turns to quickly. Has 3 children 2 sons and 1 daughter. Notes his 2 sons live in [facility] however does not see them much. Current Functional Limitations: decreased activity tolerance, global weakness, limited ability to walk, limited ability with all transfers, fear of falling Equipment Owned/DME: walker, cane, shower chair Subjective: Khoi notes that he is really tired however will do what he can agreeable to PT evaluation this morning. Does not feel he is ready to get out of bed due to fatigue and weakness. Objective: General Observation: IV L UE, telemetry, catheter Mental Status: Alert to person, place however not time Pain: Reports his whole body hurts, hypersensitive to touch. Vital Signs: Monitored via Nursing ROM: Right Upper Extremity: ? Grossly WFL but hurting all over throughout range Left Upper Extremity:? Grossly WFL but hurting all over throughout range Right Lower Extremity: Grossly WFL but hurting all over throughout range Left Lower Extremity: Grossly WFL but hurting all over throughout range Strength: Right Upper Extremity: Unable to assess due to patient refusal Left Upper Extremity: Unable to assess due to patient refusal Right Lower Extremity: hip flexion 3+/5, knee extension 4-/5, knee flexion 3/5 with pain, DF 4-/5 Left Lower Extremity: hip flexion 3+/5, knee extension 4-/5, knee flexion 4-/5, DF 4-/5 SENSATION: Intact as to pain and pressure in bilateral lower extremities BED MOBILITY/TRANSFERS: Supine to sit independent Sit to supine independent Sit to stand patient refusing assessment Stand to sit patient refusing assessment GAIT: Patient refusing gait assessment BALANCE: Static sitting Good Dynamic Sitting Good Static Standing Unable Dynamic Standing Unable Mobility Limitations Standardized Measure [facility] ? AM -PAC ? ?6 clicks? Basic Mobility Inpatient Short Form: Raw score: Unable to test? CMS score: Unable to score Informed Consent/Education:? Patient was instructed in purpose of PT consult but was only willing to sit up at edge of bed, refused all other aspects of evaluation ASSESSMENT: chronic lack of motivation, and ongoing pain complaint limited completion of this assessment. Unable to definitively assess current mobility status due to patient's refusal to perform assessment for transfers and ambulation. With extensive encouragement, patient only agreed to sitting up but refused further testing due to complaint of generalized pain and debility despite offer of help by a second person. Patient is assessed as a 11569 moderate complexity based on the following: History: Patient is a 78-year-old male with a past medical history, impairment level findings, and functional limitations as listed above Examination: Unable to fully assess Presentation: Unstable Decision Makin moderate complexity Goals: Goals X1 week 1. Supine-Sit independent 2. Sit-Supine independent 3. Sit-Stand supervision with FWW 4. Stand-Sit supervision 5. Bed-Chair CGA with FWW 6. Chair-Bed CGA with FWW 7. Gait CGA with FWW 200ft or greater 8. Stairs able to ascend/descend flight of stairs with railing CGA 9. Good static balance with FWW Plan of Care/Treatment Plan: 1-2x/day, 7 days/week x 1 week. Plan of care has been reviewed with the MANAGER OF LOSS PREVENTION OPERATIONS providing the service under Physical Therapy direction. Initiate Physical Therapy intervention for strengthening, bed mobility, transfers, gait, stairs, balance training, use of assistive device. DISCHARGE RECOMMENDATIONS: Home with services vs SNF versus LTC based on ability to participate and progress TREATMENT CODE/TIME: 06113, 20 minutes, IE, 9:10 am [facility] Please sign an return this page within 30 days if you agree with the above POC. Thank you! Physician Signature Date [facility] Disclaimer: This note was created using Osm[employer]ure voice recognition software. It was reviewed for major content. However, there may be multiple small discrepancies and errors due to the voice recognition aspects of the software.
[2024-04-11 10:22] LABS: HCT 23.7 % (40.0-50.0); MCH 20.6 pg (27.0-33.0); MCHC 28.7 % (32.0-36.0); MPV 8.8 fL (8.0-11.0); Platelet Count 225 10^3/uL (130-400); RDW-SD 48.7 fL; WBC 3.61 10^3/uL (4.4-10.8)
[2024-04-11 10:26] LABS: Lactate 5.2 mmol/L (0.6-1.4)
[2024-04-11 10:27] LABS: HGB 6.8 g/dL (13.5-17.5)
[2024-04-11 10:34] LABS: Prothrombin Time 9.9 sec (9.1-11.1)
[2024-04-11 10:40] LABS: Anion Gap 17.8 mmol/L (3-11); BUN 25 mg/dL (7-18); CO2 19.2 mmol/L (21.0-32.0); CREATININE 1.6 mg/dL (0.70-1.30); Calcium 8.1 mg/dL (8.5-10.1); Chloride 104 mmol/L (98-107); Glucose 61 mg/dL (74-106); Magnesium 2.8 mg/dL (1.8-2.4); Potassium 4.1 mmol/L (3.5-5.1); Sodium 141 mmol/L (136-145)
[2024-04-11 10:41] LABS: MCV 72 fL (80-95)
[2024-04-11 10:46] LABS: ALT 15 U/L (16-63); AST 20 U/L (15-37); Alkaline Phosphatase 41 U/L (46-116); Bilirubin, Direct 0.2 mg/dL (0.0-0.2); Bilirubin, Total 0.44 mg/dL (0.2-1.0); PHOSPHORUS 3.7 mg/dL (2.6-4.7); Total Protein 5.7 g/dL (6.4-8.2)
--- NOTE | 2024-04-11 10:49 | NUR.NOTE ---
Nursing Note: Patient states he is not a diabetic, education provided on results of lab draw glucose level. patient drank OJ from breakfast tray but declined to eat any breakfast I don't feel well. Nurse provided education and emotional support. Charge nurse updated
[2024-04-11] MEDS: LORazepam 1 MG TAB PO/SL ×3 (12:35→22:14)
[2024-04-11 17:30] LABS: HCT 24.5 % (40.0-50.0)
[2024-04-11] MEDS: Metoprolol 5 MG/5 ML VIAL IVP (17:36)
[2024-04-11 17:52] LABS: Troponin I < 50 ng/L (< or =60)
--- NOTE | 2024-04-11 18:27 | W.POCUS ---
Pocus Exam Limited Thoracic Lung Exam DATE OF EXAM: 04/11/24 TIME OF EXAM: 17:25 IS THIS A REPEAT EXAM DURING THIS ENCOUNTER: No REASON FOR EXAM: Shortness ofBreath VISUALIZED STRUCTURES: right anterior, left anterior, right lateral, left lateral, right posterior, left posterior, right subcostal and left subcostal PERTINENT FINDINGS/IMPRESSION: B-lines/left side thoracis location: lateral (posterolateral superior) and posterior (superior ), B-lines/right side thoracis location: lateral and posterior and Pneumonia (right posterior inferior and posterolateral inferior; no air bronchograms); no pleural effusion on the left and no pleural effusion on the right Exam complete
--- NOTE | 2024-04-11 18:57 | DI.VRAD_ITS ---
PROCEDURE INFORMATION: Exam: XR Chest Exam date and time: 04/11/2024 18:19 Age: 78 years old Clinical indication: Other: ? Asp pneumonia TECHNIQUE: Imaging protocol: Radiologic exam of the chest. Views: 1 view. COMPARISON: CT CHEST/ABD/PEL W 04/10/2024 22:50 FINDINGS: Lungs: The lungs appear hyperinflated. No maikol airspace consolidation on portable imaging. Pleural spaces: No pleural effusion. No pneumothorax. Heart/Mediastinum: Mild cardiomegaly without definite vascular congestion for technique. Prominent main pulmonary artery segment suggesting pulmonary artery hypertension. Bones/joints: No acute fracture. IMPRESSION: Mild cardiomegaly without definite vascular congestion for technique. Dictated and Authenticated by: Ayse Graham MD. Ordering:DEVAUGHN Rose MD
--- NOTE | 2024-04-11 19:00 | W.POCUS ---
Pocus Exam Limited Cardiac Exam DATE OF EXAM: 04/11/24 TIME OF EXAM: 17:37 PROVIDER THAT PERFORMED THE STUDY: Oswald Hayden IS THIS A REPEAT EXAM DURING THIS ENCOUNTER: no REASON FOR EXAM: Dyspnea VISUALIZED STRUCTURES: four chambers, mitral valve, Interventricular septum and IVC VIEW OBTAINED: Apical 4-Chamber, Parasternal long-axis, Parasternal short-axis (not well visualized d/t inability to position patient, done w/ patient sitting up; also lung interference) and Subxiphoid PERTINENT FINDINGS/IMPRESSION: IVC inspiratory collapsability and Plethoric IVC; No LV dysfunction, No pericardial effusion, No RV dilation and No RV dysfunction INCIDENTAL FINDINGS: Plethoric IVC w/ >50% inspiratory collapsability (65%) estimated RAP 8 mm, trace to small TR w/ tricuspid gradient of 23 mm and estimate RVSP of 31 mm, RV wall borderline thickened but no RV systolic dysfunction and no RV dilatation. Overall normal LV systolic function, mitral inflow velocities and mitral annular velocities were not captured. VEXUS grade I (plethoric IVC w/ normal hepatic venous, portal venous and renal venous doppler pattern). Exam complete
[2024-04-11] MEDS: Atorvastatin 40 MG TAB PO (20:29)
[2024-04-12] VITALS (24 sets, daily range): BP systolic 114–152; BP diastolic 61–91; PULSE 72–120; RESP 2–20; TEMP 36.2–37.2; O2SAT 94–100
[2024-04-12] MEDS: Acetaminophen 325 MG TAB PO (02:25)
[2024-04-12] MEDS: Albuterol/Ipratropium 3 ML UPD VIAL UPD ×4 (04:00→22:10)
[2024-04-12 04:01] LABS: Abs Immature Grans 0.01 10^3/uL (0.0-0.06); Absolute Basophil Count 0.05 10^3/uL (0.0-0.2); Absolute Eosinophil Count 0.13 10^3/uL (0.0-0.7); Absolute Lymphocyte Count 0.95 10^3/uL (1.2-3.4); Absolute Monocyte Count 0.58 10^3/uL (0.1-0.8); Absolute Neutrophil Count 2.55 10^3/uL (1.2-6.7); Basophils % 1.2 %; HCT 23.1 % (40.0-50.0); Immature Grans % 0.2 %; Lymphocytes % 22.2 %; MCH 20.4 pg (27.0-33.0); MCHC 28.6 % (32.0-36.0); MCV 72 fL (80-95); MPV 9.2 fL (8.0-11.0); Monocytes % 13.6 %; Neutrophils % 59.8 %; Nucleated RBC 0.5 % (0.0-0.3); Platelet Count 234 10^3/uL (130-400); RBC 3.23 10^6/uL (4.36-5.78); RDW 19.1 % (11.8-14.1); RDW-SD 48.9 fL; WBC 4.27 10^3/uL (4.4-10.8)
[2024-04-12 04:08] LABS: HGB 6.6 g/dL (13.5-17.5)
[2024-04-12 04:23] LABS: ALT 14 U/L (16-63); AST 19 U/L (15-37); Alkaline Phosphatase 44 U/L (46-116); Anion Gap 8.7 mmol/L (3-11); Anisocytosis 1+; BUN 24 mg/dL (7-18); Bilirubin, Total 0.85 mg/dL (0.2-1.0); CO2 27.3 mmol/L (21.0-32.0); CREATININE 1.7 mg/dL (0.70-1.30); Calcium 8.3 mg/dL (8.5-10.1); Chloride 104 mmol/L (98-107); Diff Comment RBC Morph Reviewed; Estimated GFR 41.01 (mL/min/1.73m2); Glucose 141 mg/dL (74-106); Hypochromasia 2+; Microcytosis 2+; Polychromasia Present; Sodium 140 mmol/L (136-145); Total Protein 5.6 g/dL (6.4-8.2)
[2024-04-12] MEDS: VANCOMYCIN/WATER (PEG) 1.5 GM/300 ML BAG IVPB (04:45)
[2024-04-12 05:15] LABS: C-Reactive Protein 0.73 mg/dL (<or=0.5)
[2024-04-12 05:36] LABS: Procalcitonin < 0.1 ng/mL
[2024-04-12] MEDS: Albuterol 2.5 MG/3 ML INH SOLN VIAL UPD (06:29)
[2024-04-12] MEDS: Thiamine 100 MG TAB PO (08:44)
[2024-04-12] MEDS: Folic Acid 1 MG TAB PO (08:44)
[2024-04-12] MEDS: Multivitamin TAB 1 TAB PO (08:45)
[2024-04-12] MEDS: Tamsulosin 0.4 MG CAPCR 0.8 MG PO (08:45)
[2024-04-12] MEDS: Doxycycline Hyclate 100 MG CAP PO ×2 (08:45→19:37)
[2024-04-12] MEDS: Normal Saline Flush 10 ML SYR IVP ×2 (08:46→19:39)
[2024-04-12] MEDS: Enoxaparin 30 MG/0.3 ML SYR SC (08:48)
--- NOTE | 2024-04-12 09:52 | PHACLINREV_ITS ---
Pharmacy Admission Review Admission Clinical Review Admission Pharmacy Review: (Updated 04/11/24 @ 02:56 by LAURA AYALA) Dehydration, mild (Acute) Lactic acidosis (Acute) Falls frequently (Acute) bupropion Adverse Reaction (Severe, Verified 04/10/24 21:23) seizures Resuscitation Status Full Code Height 5 ft 5 in Weight 63.775 kg Comments Comments/Follow Ups: N/V/D on admission Hx alcohol use, elevated alcohol level on admission, [facility] protocol, currently 5, has Lorazepam ordered, heme testing stool for low H/H-negative Chest Xray negative, Head CT negative, COVID/Flu negative Lung ultrasound shows Pneumonia (Doxy/Vanc) Pharmacy Admission Review Renal Dosing Renal Dosing: CrCl~32.8ml/min BUN 24 mg/dL (7-18) H 04/12/24 03:50 Creatinine 1.7 mg/dL (0.70-1.30) H 04/12/24 03:50 Medications needing adjustments: N/A Anticoagulation Anticoagulation: Hgb 6.6 g/dL (13.5-17.5) L* 04/12/24 03:50 Hct 23.1 % (40.0-50.0) L 04/12/24 03:50 Plt Count 234 10^3/uL (130-400) 04/12/24 03:50 INR 1.0 (0.9-1.1) 04/11/24 10:10 Creatinine 1.7 mg/dL (0.70-1.30) H 04/12/24 03:50 DVT Prophylaxis: Intervened (Will increase Lovenox to 40mg, PLT 234) Medications: Enoxaparin (Low H/H....will ask MD if wants to continue) Opiate Usage Evaluate Pain Scale/Pains Meds: N/A Relevant Labs Relevant Labs: Sodium 140 mmol/L (136-145) 04/12/24 03:50 Potassium 4.0 mmol/L (3.5-5.1) 04/12/24 03:50 Chloride 104 mmol/L (98-107) 04/12/24 03:50 Phosphorus 3.7 mg/dL (2.6-4.7) 04/11/24 10:10 Magnesium 2.8 mg/dL (1.8-2.4) H 04/11/24 10:10 C-Reactive Protein 0.73 mg/dL (<or=0.5) H 04/12/24 03:50 H/H 6.6 (previously 7.0, 6.8, 8.0) getting 1 unit blood today Elevated Lactate, C-reactive DM Control DM Control: N/A Cardiac Review Cardiac Review: Troponin I Cancelled 04/11/24 18:01 NT-Pro-B Natriuret Pep 2372 pg/mL (<300) H 04/10/24 21:25 Patient has A-fib withouth anticoagulation, Hx of GI bleed, does drink alcohol, Chronic anemia CHF with elevated BNP-no scheduled diuretics BP, HR, EF%: Reviewed (BP 127/78, HR >100) QTc Review QTc: Reviewed (QTC 455) Home Meds Home Med List reviewed: Reviewed (It appears patient does not take his medications, notes state not taking-on hold, never started, has COPD) Medication adherence barriers identified?: Patient does not drive, so may have access problems although uses taxi to get to grocery store per H&P Does not see PCP regularly, last home visit recorded was 04/18/23 and then 3 years prior Frequent visits to the ED Lives alone, no family to help, does not ambulate well, uses walker, 2nd floor apartment Pharmacy Antibiotic Review Relevant Labs: Relevant Labs 04/12/24 03:50 C-Reactive Protein 0.73 H Procalcitonin < 0.1 Blood cultures from 04/10: gram positive cocci (only one tube) repeat Blood cultures from 04/12: pending Pharmacy Antibiotic Activity: C/S review (Doxy/Vancomycin for Pneumonia) Comments Comments/Follow Ups: N/V/D on admission Hx alcohol use, elevated alcohol level on admission, [facility] protocol, currently 5, has Lorazepam ordered, heme testing stool for low H/H-negative Chest Xray negative, Head CT negative, COVID/Flu negative Lung ultrasound shows Pneumonia (Doxy/Vanc)
--- NOTE | 2024-04-12 09:52 | PT.INNT ---
PT Notes Visit Reasons: Frequent Falls with Mild Dehydration,Lacticacidosi On hold per Nurse Luci/ pt having low HGB.
[2024-04-12] MEDS: LORazepam 1 MG TAB PO/SL (10:52)
--- NOTE | 2024-04-12 11:04 | NUR.NOTE ---
Nursing Note: patient noted to have increased restlessness, scoring 13 on alcohol assessment, given prn ativan, shortly after reported shortness of breath and moved to sitting tripod position. Patient confused at this time trying to smoke his pulse oximeter. Charge nurse and provider updated, blood stopped, nurse to give IV lasix now
[2024-04-12] MEDS: Furosemide 40 MG/4 ML VIAL IVP (11:07)
[2024-04-12] MEDS: Metoprolol 12.5 MG TAB PO (11:16)
[2024-04-12] MEDS: Metoprolol 5 MG/5 ML VIAL IVP (12:08)
[2024-04-12] MEDS: Pantoprazole 40 MG TABCR PO ×2 (12:09→19:38)
--- NOTE | 2024-04-12 12:54 | PGE_ITS ---
Date of Service Date of service: 04/12/24 Time of Service: 12:54 Assessment and Plan Assessment and plan (1) Delirium due to multiple etiologies: Status: Acute Assessment and plan: history of alcohol use disorder, insomnia, polypharmacy, acute illness/hospitalization fall precautions, re-orientation as needed. head CT with no acute intracranial process. no evidence of untreated acute infection. dc benzos, no evidence of alcohol withdrawal seroquel at bedtime, melatonin. avoid nighttime sleep interruptions. high dose thiamine (2) Dehydration: Status: Acute Assessment and plan: rehydrated with IV fluids tolerating PO monitor I&O (3) Alcohol use disorder: Status: Chronic Assessment and plan: no history of alcohol withdrawal. high dose thiamine cessation discussed (4) Atrial fibrillation: Status: Chronic Assessment and plan: not on rate control medication but having RVR up to the 120's despite rehydration with IV fluids, rate responded to IV lopressor, started on oral metoprolol 25 mg po bid continue to monitor on telemetry and adjust as needed. not anticoagulated d/t history of falls, alcohol use disorder and history of GI bleeding Qualifiers: Atrial fibrillation type: paroxysmal Qualified Code(s): I48.0 - Paroxysmal atrial fibrillation (5) Acidosis, lactic: Status: Acute Assessment and plan: no source of infection, rehydrated no further surveillance at this time (6) CKD (chronic kidney disease) stage 3, GFR 30-59 ml/min: Status: Chronic Assessment and plan: at baseline avoid nephrotoxic drugs, renal dose as needed. Qualifiers: Chronic kidney disease stage 3 subtype: stage 3b (GFR 30-44) Qualified Code(s): N18.32 - Chronic kidney disease, stage 3b (7) Anemia, chronic disease: Status: Acute Assessment and plan: hemoglobin dropped to 6.6 after IV hydration with 4 liters of fluid. consented to receive blood, given 2 units PRBC stool negative for OB history of iron deficiency, chronic kidney disease and alcoholic gastritis (8) Bacteremia: Status: Suspected Assessment and plan: one bottle positive for gram positive cocci received one dose of vancomycin today no fever, elevated white count or elevated procal. repeat blood cultures pending suspect a contaminant, continue to monitor for infection. (9) COPD (chronic obstructive pulmonary disease): Status: Chronic Assessment and plan: on scheduled duonebs and doxycycline day 2/ started on admission for ? suspected exacerbation. consider discontinuing if cultures negative no oxygen requirements, no tachypnea or resp distress, chest Xray with no acute cardiopulmonary findings with negative procal intermittent c/o chronic SOB, he states unchanged from baseline continue to monitor respiratory status. discussed with Dr Jhaveri Qualifiers: COPD type: COPD with acute exacerbation Qualified Code(s): J44.1 - Chronic obstructive pulmonary disease with (acute) exacerbation Subjective Subjective Patient reports: tolerating liquids well, bowel movement (negative for occult blood), shortness of breath (intermittent, with no oxygen requirements or increased WOB) and afebrile Interval history since last seen: intermittent confusion, re-directable. no evidence of alcohol withdrawal Exam Const General: cooperative Nutritional Appearance: average body habitus Orientation: alert and awake HENMT Head: normal to inspection Ears: external ears normal Mouth: moist mucous membranes Eyes Pupils: PERRL EOM: EOM intact bilaterally Neck Neck: full ROM and no tracheal deviation Chest Chest: normal inspection of the chest Resp Effort & Inspection: normal respiratory effort and able to speak in complete sentences Cardio Rate: regular rate Rhythm: regular rhythm GI Inspection: normal to inspection Palpation: soft, no guarding, not rigid and nontender Back/Spine/Pelvis Back: No no CVA tenderness Thoracic/Lumbar Spine: thoracic and lumbar spine normal to inspection Skin General skin exam: no rashes or lesions noted Neuro General: patient alert and patient awake Motor: muscle tone normal throughout Extrem General: normal to inspection Psych Mental Status: mental status grossly normal Speech and Movement: speech and movement normal Mood: congruent mood Affect: normal affect Objective Last Vital Signs Temp 36.5 C 04/12/24 11:56 Pulse 120 H 04/12/24 12:08 Resp 16 04/12/24 11:56 BP 123/74 04/12/24 11:56 Pulse Ox 98 04/12/24 11:56 Laboratory Results - last 24 hr 04/11/24 04/11/24 04/12/24 17:20 18:01 03:50 WBC 4.27 L RBC 3.23 L Hgb 7.0 L* 6.6 L* Hct 24.5 L 23.1 L MCV 72 L MCH 20.4 L MCHC 28.6 L RDW 19.1 H Plt Count 234 MPV 9.2 Immature Gran % 0.2 Neutrophils % 59.8 Lymphocytes % 22.2 Monocytes % 13.6 Eosinophils % 3.0 Basophils % 1.2 Nucleated RBC % 0.5 H Absolute Neutrophils 2.55 Absolute Lymphocytes 0.95 L Absolute Monocytes 0.58 Absolute Eosinophils 0.13 Absolute Basophils 0.05 RBC Morphology See Below Polychromasia Present Hypochromasia 2+ Anisocytosis 1+ Microcytosis 2+ Sodium 140 Potassium 4.0 Chloride 104 Carbon Dioxide 27.3 Anion Gap 8.7 BUN 24 H Creatinine 1.7 H Est GFR (CKD-EPI 2020) 41.01 Glucose 141 H Calcium 8.3 L Total Bilirubin 0.85 AST 19 ALT 14 L Alkaline Phosphatase 44 L Troponin I < 50 Cancelled C-Reactive Protein 0.73 H Total Protein 5.6 L Albumin 3.0 L Procalcitonin < 0.1 ABO/Rh Antibody Screen Crossmatch 04/12/24 07:25 WBC RBC Hgb Hct MCV MCH MCHC RDW Plt Count MPV Immature Gran % Neutrophils % Lymphocytes % Monocytes % Eosinophils % Basophils % Nucleated RBC % Absolute Neutrophils Absolute Lymphocytes Absolute Monocytes Absolute Eosinophils Absolute Basophils RBC Morphology Polychromasia Hypochromasia Anisocytosis Microcytosis Sodium Potassium Chloride Carbon Dioxide Anion Gap BUN Creatinine Est GFR (CKD-EPI 2020) Glucose Calcium Total Bilirubin AST ALT Alkaline Phosphatase Troponin I C-Reactive Protein Total Protein Albumin Procalcitonin ABO/Rh O Positive Antibody Screen NEGATIVE Crossmatch See Detail PAWSS Have you Been Recently Intoxicated or Drunk Within the Last 30 days?: No Have you Ever Experienced Previous Episodes of Alcohol Withdrawal?: No Have you ever Experienced Withdrawal Seizures?: No Have you ever Experienced Delirium Tremens(DT)s?: No Have you ever undergone Alcohol Rehabilitation Treatment (i.e, inpt ot outp atient treatment programs)?: Yes Have you ever Experienced Blackouts?: Unable to Obtain Have you ever Combined Alcohol with other Downers within the last 90 days?: No Have you ever Combined Alcohol with any other Substance of Abuse during the last 90 days?: No Positive Blood Alcohol level on Presentation? [PCS.BAL]: Yes Evidence of Increased Autonomic Activity (i.e. HR>120, tremor, sweating, agitation, nausea)?: Yes Result: 3 Time Spent with Patient Time Spent with Patient: 35-49 minutes Time was spent: preparing to see the patient(eg.review tests), obtaining and/or [facility], ordering medications,tests, procedures, indepentently interpreting results and counseling the patient
[2024-04-12 16:37] LABS: Lab Add On Test DONE
[2024-04-12 16:49] LABS: Iron 17 ug/dL (65-175); Total Iron Binding Capacity 381 ug/dL (250-450); Transferrin Sat 4 % (20-55)
[2024-04-12 17:03] LABS: Ferritin 16 ng/mL (26-388)
[2024-04-12] MEDS: Ferrous Sulfate 325 MG TAB PO (18:16)
[2024-04-12] MEDS: Lidocaine 5% Patch 2 PATCH TP ×2 (19:36→22:17)
[2024-04-12] MEDS: QUEtiapine 25 MG TAB 12.5 MG PO (19:37)
[2024-04-12] MEDS: Melatonin 3 MG TAB PO (19:37)
[2024-04-12] MEDS: Atorvastatin 40 MG TAB PO (19:37)
[2024-04-12] MEDS: Metoprolol 25 MG TAB PO (19:38)
--- NOTE | 2024-04-12 21:33 | NUR.NOTE ---
Nursing Note: 04/12/242129 Patient awoke and was agitated trying to sit up on the side of the bed and insisting that he needed to stand to urinate. 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 He sat up on the side of the bed and insisted that his wallet be returned to him and that he was ready to go home. I assured him that his wallet was in the safe and was safe there. He asked again and I told him I would bring it to him as soon as I went to see my other patient. I then returned his wallet to him, he presently has it in bed with him. His wallet is known to contain $774.00 in kee and he is understandably possessive of it.
--- NOTE | 2024-04-12 22:09 | NUR.NOTE ---
Nursing Note: 04/12/24 2200 patient asked to count his money in his wallet that was strewn about his bed. I counted the contents of the wallet and found there to be $794.00 in the wallet. The amount is corrected on the envelope and the patient agreed to return the wallet to the safe on the med/surg floor.
[2024-04-13] VITALS (9 sets, daily range): BP systolic 116–141; BP diastolic 74–96; PULSE 73–96; RESP 6–18; TEMP 36.1–36.6; O2SAT 94–100
[2024-04-13] MEDS: Ferrous Sulfate 325 MG TAB PO ×2 (05:52→17:23)
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
[2024-04-13 07:11] LABS: Abs Immature Grans 0.04 10^3/uL (0.0-0.06); Absolute Basophil Count 0.05 10^3/uL (0.0-0.2); Absolute Eosinophil Count 0.17 10^3/uL (0.0-0.7); Absolute Lymphocyte Count 0.99 10^3/uL (1.2-3.4); Absolute Monocyte Count 0.51 10^3/uL (0.1-0.8); Absolute Neutrophil Count 2.83 10^3/uL (1.2-6.7); Basophils % 1.1 %; Eosinophils % 3.7 %; HCT 31.3 % (40.0-50.0); HGB 9.7 g/dL (13.5-17.5); Immature Grans % 0.9 %; Lymphocytes % 21.6 %; MCH 23.2 pg (27.0-33.0); MCV 75 fL (80-95); MPV 9.7 fL (8.0-11.0); Monocytes % 11.1 %; Neutrophils % 61.6 %; Platelet Count 217 10^3/uL (130-400); RBC 4.18 10^6/uL (4.36-5.78); RDW 20.1 % (11.8-14.1); RDW-SD 53.9 fL; WBC 4.59 10^3/uL (4.4-10.8)
[2024-04-13 07:23] LABS: Anion Gap 9.7 mmol/L (3-11); BUN 21 mg/dL (7-18); CO2 27.3 mmol/L (21.0-32.0); CREATININE 1.7 mg/dL (0.70-1.30); Calcium 8.6 mg/dL (8.5-10.1); Chloride 104 mmol/L (98-107); Estimated GFR 41.01 (mL/min/1.73m2); Glucose 105 mg/dL (74-106); Potassium 3.5 mmol/L (3.5-5.1); Sodium 141 mmol/L (136-145)
[2024-04-13 07:24] LABS: Magnesium 1.1 mg/dL (1.8-2.4)
[2024-04-13 07:30] LABS: Anisocytosis 1+; Diff Comment RBC Morph Reviewed; Polychromasia Present
[2024-04-13 07:31] LABS: Poikilocytes 1+
[2024-04-13] MEDS: Pantoprazole 40 MG TABCR PO ×2 (07:33→19:52)
[2024-04-13] MEDS: Multivitamin TAB 1 TAB PO (07:34)
[2024-04-13] MEDS: Doxycycline Hyclate 100 MG CAP PO (07:34)
[2024-04-13] MEDS: Tamsulosin 0.4 MG CAPCR 0.8 MG PO (07:34)
[2024-04-13] MEDS: Metoprolol 25 MG TAB PO ×2 (07:34→19:52)
[2024-04-13] MEDS: Folic Acid 1 MG TAB PO (07:34)
[2024-04-13] MEDS: Normal Saline Flush 10 ML SYR IVP ×3 (07:34→19:59)
[2024-04-13] MEDS: Patch Removal 2 EACH TP (07:37)
[2024-04-13] MEDS: THIAMINE 500 MG in Normal Saline 100 ML 200 MG IVPB ×2 (08:09→15:55)
--- NOTE | 2024-04-13 08:30 | DI.US_ITS ---
APPROVED REPORT EXAM: Comprehensive 2D, Doppler, and color-flow Echocardiogram Patient Location: In-Patient Comfort Filler: Frank Brand RDCS (AE) Indications: CHF Other Information Study Quality: Technically Limited. Technically limited study due to uncooperative patient, inability to position patient, body habitus. Conclusion Technically difficult study Left ventricular wall thickness, chamber size, and systolic function appear grossly normal Right ventricular size is normal Both atria appear normal in size Study is not adequate to assess for significant valvular disease Wall motion Left Ventricle The left ventricle is grossly normal size. Technically limited scan due to patient being uncooperativ e and due to patient's body habitus. There is no ventricular septal defect visualized. Atria The interatrial septum is intact with no evidence for an atrial septal defect. Aortic Valve The aortic valve is not well visualized. Mitral Valve Mitral valve is not well visualized. Tricuspid Valve Tricuspid valve is not well visualized. Trace tricuspid regurgitation. Unable to assess PA pressure. Pulmonic Valve Pulmonic valve is not well visualized. Great Vessels The aortic root is normal in size. The ascending aorta is normal in size. Aortic arch is not well vis ualized. IVC is normal in size and collapses >50% with inspiration. 2D Dimensions Ao Root d 2.57 cm M: 3.1 - 3.7 Ao Asc Diam d 2.43 cm M: 2.6 - 3.4 Aortic Valve LVOT Diam s 2.00 cm
--- NOTE | 2024-04-13 09:33 | W.PM.PROGNOT ---
Date of Service Date of service: 04/13/24 Time of Service: 12:30 Assessment and Plan Assessment and plan (1) Delirium due to multiple etiologies: Status: Acute Assessment and plan: history of alcohol use disorder, insomnia, polypharmacy, acute illness/hospitalization fall precautions, re-orientation as needed. head CT with no acute intracranial process. no evidence of untreated acute infection. dc benzos, no evidence of alcohol withdrawal seroquel at bedtime, melatonin. avoid nighttime sleep interruptions. high dose thiamine (2) Dehydration: Status: Acute Assessment and plan: rehydrated with IV fluids tolerating PO monitor I&O Labs in AM (3) Alcohol use disorder: Status: Chronic Assessment and plan: CIWA score Q4 and inform provider if Rx is needed score was 13 on admission and had received lorazepam initially but now stopped Reported no history of alcohol withdrawal. Continue high dose thiamine Cessation discussed and want to stop drinking (4) Atrial fibrillation: Status: Chronic Assessment and plan: Now on metoprolol for rate control d/t episode of RVR up to the 120's despite rehydration with IV fluids, Initially responded to IV lopressor,will continue oral metoprolol 25 mg po bid will transition to 25 mg of succinate in AM continue telemetry;HR 99 Will not initiate anticoagulation d/t history of falls, alcohol use disorder and history of GI bleeding Qualifiers: Atrial fibrillation type: paroxysmal Qualified Code(s): I48.0 - Paroxysmal atrial fibrillation (5) Acidosis, lactic: Status: Acute Assessment and plan: No source of infection depsite one blood culture w [facility] on 04/10 ( contaminant?), repeated ones are negative Rehydration completed No hypotension , no fever no further surveillance at this time (6) CKD (chronic kidney disease) stage 3, GFR 30-59 ml/min: Status: Chronic Assessment and plan: at baseline avoid nephrotoxic drugs, renal dose as needed. Qualifiers: Chronic kidney disease stage 3 subtype: stage 3b (GFR 30-44) Qualified Code(s): N18.32 - Chronic kidney disease, stage 3b (7) Anemia, chronic disease: Status: Acute Assessment and plan: 2 units PRBC given for hemoglobin dropped to 6.6 after IV hydration with 4 liters of fluid. Stool negative for OB history of iron deficiency, chronic kidney disease and alcoholic gastritis on PPI inpatient Oral iron supplementation folate and B12 study (8) Bacteremia: Status: Suspected Assessment and plan: One bottle positive for gram positive cocci received one dose of vancomycin only Afebrile, no leukocytosis Repeat blood cultures negative at 24 hours Contaminant-probable / negative procal Continue to monitor for infection. (9) COPD (chronic obstructive pulmonary disease): Status: Chronic Assessment and plan: Continue scheduled duonebs and doxycycline day 3/5 started on admission for suspected exacerbation. Discontinuing as cultures are negative at 24 hours No oxygen supplementation requirements, no tachypnea or resp distress, Chest Xray with no acute cardiopulmonary findings with negative procal Reports ongoing history of intermittent c/o chronic SOB Continue to monitor respiratory status. Qualifiers: COPD type: COPD with acute exacerbation Qualified Code(s): J44.1 - Chronic obstructive pulmonary disease with (acute) exacerbation (10) Hypomagnesemia: Status: Chronic Assessment and plan: Mg 1.1; replete Mg level in AM (11) Discharge planning issues: Status: Acute Assessment and plan: Would like STR CM aware - Referral confirmation pending Discussed with Dr Jhaveri Subjective Subjective Patient reports: no new complaints, feels better, tolerating liquids well, tolerating a regular diet, voiding w/o difficulty, shortness of breath, afebrile and other (Reports light sensitivity, tingling to both feet but no further pruritus); denies diarrhea, nausea or vomiting Exam Narrative Exam Narrative: Constitutional The patient is sitting at the edge of the bed then back to lying in bed, appears restless but without acute distress HENMT: Head is atraumatic, normocephalic, no lymphadenopathy. Facial structures with normal appearance Eyes: Well aligned, intact ROM Neck: Normal ROM, no meningeal signs Neuro:alert and oriented to self, person. Non-focal Resp: Clear lung bilaterally, but non-compliant when ask to take deep breaths Cardio: regular rhythm, S1, S2, no murmur, positive radial and pedal pulses GI: Abdomen is not distended, soft and non tender, bowel sounds are present : Negative Costovertebral angle tenderness, no bladder distension-murry in place Integumentary: scratch gaby to LE's d/t previous pruritus-healing now Extremities: generalized weakness-shaky Psych: RASS 0, congruent mood and normal affect. Objective Last Vital Signs Temp 36.1 C L 04/13/24 08:07 Pulse 96 H 04/13/24 08:07 Resp 18 07/15/24 08:07 BP 141/96 H 04/13/24 08:07 Pulse Ox 96 04/13/24 08:07 Laboratory Results - last 24 hr 04/12/24 04/12/24 04/12/24 03:50 07:25 11:10 WBC RBC Hgb Hct MCV MCH MCHC RDW Plt Count MPV Immature Gran % Neutrophils % Lymphocytes % Monocytes % Eosinophils % Basophils % Nucleated RBC % Absolute Neutrophils Absolute Lymphocytes Absolute Monocytes Absolute Eosinophils Absolute Basophils RBC Morphology Polychromasia Poikilocytosis Anisocytosis Sodium Potassium Chloride Carbon Dioxide Anion Gap BUN Creatinine Est GFR (CKD-EPI 2020) Glucose Calcium Magnesium Iron 17 L TIBC 381 Transferrin % Sat 4 L Ferritin 16 L Add-On Test Request DONE ABO/Rh O Positive Antibody Screen NEGATIVE JULIEN, Polyspecific Cancelled Crossmatch See Detail Reaction Clerical Check Cancelled Clerical Work Check Cancelled Pre-Trans Blood Type Cancelled Pre-Trans Bld Appearanc Cancelled Pre-Trans JULIEN Cancelled Post-Trans Blood Type Cancelled Post-Trans Spec Appear Cancelled Post-Trans JULIEN Cancelled Reaction Pathol Review Cancelled 04/13/24 06:45 WBC 4.59 RBC 4.18 L Hgb 9.7 L D Hct 31.3 L MCV 75 L MCH 23.2 L MCHC 31.0 L D RDW 20.1 H Plt Count 217 MPV 9.7 Immature Gran % 0.9 Neutrophils % 61.6 Lymphocytes % 21.6 Monocytes % 11.1 Eosinophils % 3.7 Basophils % 1.1 Nucleated RBC % 0.0 Absolute Neutrophils 2.83 Absolute Lymphocytes 0.99 L Absolute Monocytes 0.51 Absolute Eosinophils 0.17 Absolute Basophils 0.05 RBC Morphology See Below Polychromasia Present Poikilocytosis 1+ Anisocytosis 1+ Sodium 141 Potassium 3.5 Chloride 104 Carbon Dioxide 27.3 Anion Gap 9.7 BUN 21 H Creatinine 1.7 H Est GFR (CKD-EPI 2020) 41.01 Glucose 105 Calcium 8.6 Magnesium 1.1 L Iron TIBC Transferrin % Sat Ferritin Add-On Test Request ABO/Rh Antibody Screen JULIEN, Polyspecific Crossmatch Reaction Clerical Check Clerical Work Check Pre-Trans Blood Type Pre-Trans Bld Appearanc Pre-Trans JULIEN Post-Trans Blood Type Post-Trans Spec Appear Post-Trans JULIEN Reaction Pathol Review PAWSS Have you Been Recently Intoxicated or Drunk Within the Last 30 days?: No Have you Ever Experienced Previous Episodes of Alcohol Withdrawal?: No Have you ever Experienced Withdrawal Seizures?: No Have you ever Experienced Delirium Tremens(DT)s?: No Have you ever undergone Alcohol Rehabilitation Treatment (i.e, inpt ot outpatient treatment programs)?: Yes Have you ever Experienced Blackouts?: Unable to Obtain Have you ever Combined Alcohol with other Downers within the last 90 days?: No Have you ever Combined Alcohol with any other Substance of Abuse during the last 90 days?: No Positive Blood Alcohol level on Presentation? [PCS.BAL]: Yes Evidence of Increased Autonomic Activity (i.e. HR>120, tremor, sweating, agitation, nausea)?: Yes Result: 3 Time Spent with Patient Time Spent with Patient: >50 minutes Time was spent: preparing to see the patient(eg.review tests), obtaining and/or reviewing separately otained hiistory, ordering medications,tests, procedures, referring, communicating with other health healthcare consulting manager, indepentently interpreting results, counseling the patient and care coordination
--- NOTE | 2024-04-13 09:52 | CMPROGNOTE_ITS ---
Date of service: 04/13/24 Time of Service: 09:52 Care Management Progress Note Progress Note Text Progress Note Text: Niraj was lying in bed when CM met with him. CM discussed his discharge plan; PT recommends that he go to SNF for short term rehab. Referrals were [facility] to [facility] [place] and the [facility], and he received a bed offer at both. After discussion, Niraj decided that he would prefer going to the [facility], as he had a good experience there last time he went to rehab. Niraj asked CM to talk to his son, Aime, who had visited earlier in the day. CM called Aime and updated him about Niraj's plan, stating that he will likely transition to the [facility] tomorrow. Aime stated that he and his siblings are trying to work together to support their dad, after years of being estranged. He asked about DPOA/AD paperwork; CM stated that if he is up to it, [place] AD paperwork can be worked on with him while he is here, but that this can also happen while he is at the [facility]. CM will discuss this with Nirja. [facility], providing [facility]. [facility] stated that [facility] is not service connected, and at this time, he does not have a PCP or major case detective/clinical social worker [facility]. CM will continue to follow. Discharge Potential Discharge Needs: PT Evaluation Anticipated Barriers to Discharge: None Identified Patient/Family Education Needs: Review discharge instructions, discuss Ask Me Three Transportation: RCT RCT Transportation: Wheel chair van Plan: PT recommends SNF for STR vs. Home with services once medically ready to discharge. Khoi is agreeable to SNF for STR, CM sent referral to the [facility] and [facility], at pts request. Transportation will be dependent on his disposition and mobility needs at the time of discharge. CM will follow. SDOH(Care Management) Screening Will the Patient Participate in the Screening?: Unable to obtain
--- NOTE | 2024-04-13 09:56 | PT.INTREAT ---
Date of service: 04/13/24 Time of Service: 09:45 PT Notes Visit Reasons: Frequent Falls with Mild Dehydration,Lacticacidosi SUBJECTIVE: I'm going home...I want to see my money...I have the right to see my money. OBJECTIVE:? Sitting on EOB with [facility] staff upon arrival. Spoke with JUICE Moncada prior to seeing patient and okay for oob, amb and ther ex as patient is agreeable. Treatment: sit to stand cg/min assist with cuing for hand placement. Amb 6 feet to chair with cg/min assist and assist to maneuver walker with cuing to turn closer to chair. Elbow flexion x 2, shoulder flexion x 2, hip flexion x 2. refused additional ROM/ther ex Assessment: Patient unsteady with mobility Plan: Continue PT per plan of care as able per patient participation Billing Charges: Treatment Units Time Duration Manual Therapy (73886) Hands-on techniques to modulate pain increase joint range of motion reduce or eliminate soft tissue swelling, inflammation, or restriction facilitate relaxation and improve contractile and non-contractile tissue extensibility Therapeutic Procedures (95789) Instruction in therapeutic exercises to develop strength and endurance, range of motion and flexibility. HEP instruction and review: Provided skilled instruction in proper exercise performance: Provided skilled manual cues to facilitate proper muscle recruitment and/or movement?pattern: 0 3 Neurological Re-Education (62904) to improve balance, coordination, kinesthetic and proprioceptive sensations. Ultrasound (42670) to promote healing Gait Training (33403) Therapeutic Activity (92481) instruction in dynamic activities with one on one patient contact by the provider to improve functional performance as follows: 1 6 Self Care Training (67013) Time Coded Treatment Minutes: 9 Total Treatment Time: 9
[2024-04-13] MEDS: Albuterol/Ipratropium 3 ML UPD VIAL UPD ×2 (11:10→21:50)
[2024-04-13] MEDS: MAGNESIUM SULFATE 4 GM/100 ML BAG IVINF (11:51)
[2024-04-13 12:57] LABS: Folate 14.2 ng/mL (8.6-20.0); Vitamin B12 237 pg/mL (193-986)
--- NOTE | 2024-04-13 13:56 | OT.INIE ---
Occupational Therapy Notes Inpatient Occupational Therapy Evaluation Date: 04/13/24 Referring Doctor:Dr. Rivas OT Orders: Fall, standard, full Precautions: Non Urgent PATIENT PROFILE/ADMITTING DIAGNOSIS: Pt is a 78 year old male who was admitted to Med Surg with the following dx of generalized weakness due to dehydration and lacticacidosis. Past Medical History: All Active Problems (Updated 07/19/22 @ 23:57 by Prashant Rosales) Alcoholic liver disease (Acute) Discharge planning issues (Acute) Smoker (Acute) DVT prophylaxis (Acute) Anemia (Chronic) CHF (congestive heart failure) (Chronic) Acute upper gastrointestinal bleeding (Acute) Alcohol abuse (Chronic) Troponin level elevated (Acute) COPD (chronic obstructive pulmonary disease) (Chronic) Gout (Chronic) Colchicine preventionSleeping difficulty (Chronic) Melatonin RXDepression (Chronic) Plans on getting connected to social workBarrett's esophagus (Chronic ~04/2019) ETOH; Upper endoscopy 03/2019 (see path report--no tineo's?, but 08/15/2019 surg note says +tineo's)Weakness (Acute) LE weakness; Home PTUrinary retention (Chronic) Dr. Zapata abuse disorder (Chronic) Cut down 1/2PPDCOPD (chronic obstructive pulmonary disease) (Chronic) Atrial fibrillation (Chronic) Paroxysmal per hospital records; not anticoagulated secondary to recurrent GI bleeds from chronic EtOH useAlcohol use disorder (Chronic) GI bleed (Chronic) Anemia (Chronic) Medical History Tineo's esophagus Depression Gastric ulcer Hematemesis Insomnia Palliative care patient DobbertinRadicular pain of right lower extremity Renal insufficiency Right knee pain Smoking hx UTI (urinary tract infection) Surgical History H/O esophagogastroduodenoscopy (~04/2019) Repeat on 10/26/20 [facility] [place] severe reflux esophagitis w/ non-bleeding esophageal ulcer. Multiplle inflammatory appearing nodules at [facility] Social History/Home Situation: Khoi lives alone in an apartment in [place] where he reports that he (I) at baseline with his ADL routines. He is a of both the [employer] and [employer]. He has a brother in [place]. He also reports that he has two sons who reside in [place], but Rufino has limited contact with them. He states that he has difficulty with some parts of his ADLs but notes that otherwise he is trying to be (I). SUBJECTIVE: Pt reports that he is not happy with people waking him up and making him do things. He notes that he would like to sleep and for people to leave him alone. He is receptive to OT consult. OBJECTIVE: General Observation: Telemetry, IV in (R) UE, pt requires a lot of vc for task initiation Mental Status: A&Ox3 Pain: c/o pain in back and throughout his legs ROM: RUE AROM WFL L UE AROM WFL STRENGTH: RUE 3-/5 LUE 4/5 FUNCTIONAL MOBILITY/ADLS: BATHING NT today as pt refuses, based on last OT pt confirms that he is the following Bathing UE (I) face, Mod (A) (B) UE Bathing LE max (A) (B) LE and max (A) jaquan area DRESSING sitting with mod vc throughout Dressing UE Mod (A) Dressing LE Max (A) BALANCE: Static sitting Normal Dynamic sitting Normal SPECIAL TESTS: Daily Activity Limitations Standardized Measure [facility] AM -PAC ?6 clicks? Daily Activity Inpatient Short Form: Raw score: 12 Standardized score: 30.60 CMS score: 66.57% INFORMED CONSENT/EDUCATION: Pt instructed in purpose of OT Consult and plan of care. ASSESSMENT: Patient is a 78-year-old male referred to occupational therapy services with dx of generalized weakness due to dehydration and lacticacidosis. He called EMS from home, has been unable to walk due to severe weakness and not feeling well. Patient presents with clinical signs and symptoms consistent with dx, as demonstrated by the following impairment level findings/ functional limitations: Impairments in ADL/IADL and leisure activities, decreased functional activity tolerance, weakness, no motivation for performance of ADLs, increased fatigue, decreased functional mobility requires for ADL performance. Patient is assessed as a Moderate 99135 complexity based on the following: History: see above Examination: see functional limitations as noted above Presentation: evolving Decision Making: moderate complexity GOALS Goals x1 week 1. Transfers (S) 2. Dressing seated mod (I) 3. Bathing max (A) set up/clean up then (I) with bathing routines 4. Toileting (I) 5. Eating (I) PLAN OF CARE/TREATMENT PLAN: 1x/day, 3-5 days/ week x 1week Initiate Occupational Therapy Services for bathing, dressing, grooming, toileting, eating, transfer training. DISCHARGE RECOMMENDATIONS SNF when medically cleared per MD. TREATMENT TIME/MINUTES/CODES 86405 Viji Brown OTR/[facility] [place], [place]
--- NOTE | 2024-04-13 16:06 | PT.INTREAT ---
PT Notes Visit Reasons: Frequent Falls with Mild Dehydration,Lacticacidosi Inpatient Physical Therapy Treatment Note [facility] Date: 04/13/2024 PRECAUTIONS: Activity as tolerated. Fall risk. SUBJECTIVE: Patient expressed that he has not slept well last night and badly needs his rest. Did not want to participate in any out-of bed activities. Did agree to be repositioned in bed. Nurse Moncada suggested letting patient rest and helped position the patient comfortably. Nurse Coral said that patient was just positioned in bed and when she came back to take vital signs, patient assumed this position. OBJECTIVE: Patient lying perpendicular to the head of bed, head resting on right knee rail of bed. Nurse Coral taking vital signs. Patient's eyes closed. IV through R UE. ? PAIN: None verbalized throughout session VITALS: Within normal limits when checked by Nurse Moncada Therapeutic Activities (22815f[]): Direct one-on-one instruction in dynamic activities to improve functional performance. ? BED MOBILITY/TRANSFERS? Rolling L/R: Minimal assist using bed rails Supine-sit: Minimal assist using bed rails, HOB at 30 degrees? Sit-supine: Minimal assist using bed rails? Sit-stand: Refused ? Stand-sit: Refused ? Bed-Chair: Refused ? Chair-bed: Refused GAIT? Refused by patient. STAIRS: Unable to complete? ASSESSMENT:? Patient very drowsy and opted to sleep but was abena agreeable for bed positioning for comfort. PLAN: Re-approach tomorrow morning to participate in physical therapy for functional mobility training, sterngthneing, and balance retraining per PT POC. TREATMENT CODE/TIME: 91455 x 15 minutes for 1 unit (15:39-15:55). DISCHARGE RECOMMENDATION: Short-term rehab vs. HH PT based on progress towards goals.
[2024-04-13] MEDS: QUEtiapine 25 MG TAB 12.5 MG PO (19:52)
[2024-04-13] MEDS: Melatonin 3 MG TAB PO (19:52)
[2024-04-13] MEDS: Atorvastatin 40 MG TAB PO (19:52)
[2024-04-13] MEDS: Lidocaine 5% Patch 2 PATCH TP (19:58)
[2024-04-14] MEDS: Ferrous Sulfate 325 MG TAB PO (06:06)
[2024-04-14] MEDS: Patch Removal 2 EACH TP (06:07)
[2024-04-14 06:53] LABS: Abs Immature Grans 0.07 10^3/uL (0.0-0.06); Absolute Basophil Count 0.06 10^3/uL (0.0-0.2); Absolute Eosinophil Count 0.22 10^3/uL (0.0-0.7); Absolute Lymphocyte Count 1.01 10^3/uL (1.2-3.4); Absolute Monocyte Count 0.45 10^3/uL (0.1-0.8); Absolute Neutrophil Count 2.86 10^3/uL (1.2-6.7); Basophils % 1.3 %; Eosinophils % 4.7 %; HCT 30.8 % (40.0-50.0); HGB 9.4 g/dL (13.5-17.5); Immature Grans % 1.5 %; Lymphocytes % 21.6 %; MCH 22.8 pg (27.0-33.0); MCHC 30.5 % (32.0-36.0); MCV 75 fL (80-95); Monocytes % 9.6 %; Neutrophils % 61.3 %; Platelet Count 213 10^3/uL (130-400); RBC 4.12 10^6/uL (4.36-5.78); RDW 20.8 % (11.8-14.1); RDW-SD 55.6 fL; WBC 4.67 10^3/uL (4.4-10.8)
[2024-04-14 07:03] LABS: BUN 22 mg/dL (7-18); CREATININE 1.9 mg/dL (0.70-1.30); Calcium 8.6 mg/dL (8.5-10.1); Chloride 105 mmol/L (98-107); Estimated GFR 35.88 (mL/min/1.73m2); Glucose 125 mg/dL (74-106); Magnesium 1.8 mg/dL (1.8-2.4); Potassium 3.6 mmol/L (3.5-5.1); Sodium 139 mmol/L (136-145)
[2024-04-14] MEDS: Pantoprazole 40 MG TABCR PO (07:21)
[2024-04-14 07:23] LABS: Anisocytosis 1+; Microcytosis 1+
[2024-04-14] MEDS: THIAMINE 500 MG in Normal Saline 100 ML 200 MG IVPB ×2 (07:48)
[2024-04-14] MEDS: Tamsulosin 0.4 MG CAPCR 0.8 MG PO (07:49)
[2024-04-14] MEDS: Metoprolol CR 50 MG TABCR PO (07:49)
[2024-04-14] MEDS: Normal Saline Flush 10 ML SYR IVP (07:49)
[2024-04-14] MEDS: Multivitamin TAB 1 TAB PO (07:49)
[2024-04-14] MEDS: Folic Acid 1 MG TAB PO (07:49)
[2024-04-14 08:01] VITALS: BP 125/82; PULSE 83; RESP 17; TEMP 36.9; O2SAT 94
--- NOTE | 2024-04-14 09:34 | CMDISCH_ITS ---
Date of service: 04/14/24 Time of Service: 09:34 LACE Index Scoring Tool Questions: Length of Stay (in days): 3 Was the patient admitted via the E.D.?: Yes Comorbidities: Congestive Heart Failure, Chronic Pulmonary Disease and Liver or Renal Disease E.D. Visits: 2 Answers: Total Score: 13 Risk of Readmission: High Risk Care Management Discharge Plan Reason for Hospitalization: Frequent falls with mild dehydration Discharge Plan: Khoi will go to the [facility] today for short term rehab prior to returning home. He will be transported via [employer] w/c van. He will follow up with his PCP and discharge plan of care. Khoi was reluctant to make this plan today, but after discussing his concerns with his family, who are very supportive, he made the decision to go to the [facility]. Patient/Family Education Needs: Review discharge instructions and limitations, discussion of self care needs including ask me three. Services Needed at Discharge: [facility] ([facility]) and Transportation ([facility] w/c van) SDOH Health Related Social Needs: No Data to Display
--- NOTE | 2024-04-14 10:28 | PTTR_ITS ---
PT Notes Visit Reasons: Frequent Falls with Mild Dehydration,Lacticacidosi Inpatient Physical Therapy Treatment Note [facility] Date: 04/14/2024 PRECAUTIONS: Activity as tolerated. Fall risk. SUBJECTIVE: [facility] [place] [facility] he gets his bills paid. Concern was presented to Nurse Moncada who said that his sons took care of paying the bills when they came here yesterday. Agreeable to getting out of bed and to walking to the door and back. Slept better yesterday. OBJECTIVE: Resting in bed. IV through R UE. ? PAIN: None verbalized throughout session VITALS: Within normal limits when checked by Nurse Moncada Therapeutic Activities (60535): Direct one-on-one instruction in dynamic activities to improve functional performance. ?? BED MOBILITY/TRANSFERS? Rolling L/R: stand by assist Supine-sit: stand by assist HOB flat? Sit-stand: contact guard assist with FWW? Stand-sit: contact guard assist with FWW? Bed-Chair: contact guard assist with FWW? Chair-bed: contact guard assist with FWW? GAIT? 50 feet using FWW with step-to gait pattern,, step height nad length decreased but no report of pain throughout. Denied headache and lightheadedness. Mnimal shortness of breath was relieved by rest. Complained of pain in toes on B sides while weight bearing. STAIRS: Not performed during this session.? ASSESSMENT:? Patient more awake and better able to follow instrcutions than yesterday. Needed motivation to participate in session. Nurse Moncada said that patient is scheduled to have podiatry consult for his hurting toes today. refused any further activiies due to fatigue and need to figure out how to reach his sons to talk with them. Nurse Moncada aware and assisting. Will benefit from short-term rehab stay to regain PLOF. PLAN: Progress functional mobility training, sterngthneing, and balance retraining per PT POC. TREATMENT CODE/TIME: 19846 x 19 minutes for 1 unit (10:28-10:47). DISCHARGE RECOMMENDATION: Short-term rehab vs. PT based on progress towards goals.
[2024-04-14 10:43] VITALS: PULSE 78; RESP 18; RESP 5; O2SAT 97
[2024-04-14] MEDS: Albuterol/Ipratropium 3 ML UPD VIAL UPD (10:43)
[2024-04-14 11:23] VITALS: BP 108/73; PULSE 80; RESP 18; TEMP 36.7; O2SAT 93
--- NOTE | 2024-04-14 12:13 | W.PM.DS.N ---
Date of service: 04/14/24 Time of Service: 12:14 DS: Diagnosis Discharge Diagnosis (1) Delirium due to multiple etiologies: Status: Acute (2) Dehydration: Status: Acute (3) Alcohol use disorder: Status: Chronic (4) Atrial fibrillation: Status: Chronic (5) Acidosis, lactic: Status: Acute (6) CKD (chronic kidney disease) stage 3, GFR 30-59 ml/min: Status: Chronic (7) Anemia, chronic disease: Status: Acute (8) Bacteremia: Status: Suspected (9) COPD (chronic obstructive pulmonary disease): Status: Chronic (10) Hypomagnesemia: Status: Chronic Discharge Plan Disposition Patient Disposition: Custodial Facility(SNF) Condition: Improving Discharge Details Reason For Visit: Frequent Falls with Mild Dehydration,Lacticacidosi Admit Date/Time: 04/11/24 02:19 Admit Provider: Crescencio Rivas Attending Provider: Crescencio Rivas Primary Care Provider: Desirae Panda Hospital Course Hospital Course: This 78 years old male patient living alone with a past medical history of alcohol use disorder, alcoholic liver disease, anemia, congestive heart failure, chronic obstructive pulmonary disease with ongoing tobacco use, urinary retention, atrial fibrillation not anticoagulated due to frequent fall presented to the ED at [facility] on 04/10/2024 for evaluation of altered mental status. As per EMS report the patient's home temperature was around 95 degrees, patient was found covered in emesis and feces, unable to ambulate due to weakness. Call to EMS and to have been initiated by patient. The patient reported chest pain, cough with wheezing further history was difficult to obtain. The patient denied fever and received a DuoNeb en route to the hospital. Workup in the ED showed an H&H of 8.0 and 27.5, lactate at 2.8, BUN and creatinine at 38 and 2 similar to previous, anion gap at 13.4. VBG, UA, UDS, COVID flu RSV were all negative. ETOH level was over 300. CT of the chest abdomen pelvis did not show any acute abnormality except for severe atherosclerotic changes of the abdominal aorta and branch vessels. In the ED the patient received additional DuoNeb with resolution of wheezing and rhonchi as well as 1 L of normal saline for rehydration. The patient had mentioned in the ED as per ED provider's note that he could not go home like that that he would need to go to a place where he could get help. The hospitalist was consulted and the patient was admitted to the medical surgical floor for evaluation and management of altered mental status, anemia, dehydration, CHF exacerbation observation with an up-to-date echocardiogram. During the stay, was scoring on the CIWA scale with a maximum of 1 the 3 and received a total of 8 mg of lorazepam during of the stay with resolution of alcohol withdrawal. The patient received high-dose thiamine. The patient received 2 units of PRBC for hemoglobin down to 6.6; hemoglobin stayed stable at 9.4-9.7. The patient will need follow-up CBC within a week of discharge with report forwarded to the [facility] were patient will be discharged to. Blood culture was positive for staph epidermis but only 1 bottle which was attributed to contamination. Repeated blood cultures were negative. The patient will have a follow-up with outpatient podiatry for follow-up for overgrown versus ingrown toenails. An echocardiogram was completed with the following impressions: Conclusion Technically difficult study Left ventricular wall thickness, chamber size, and systolic function appear grossly normal Right ventricular size is normal Both atria appear normal in size Study is not adequate to assess for significant valvular disease Discussed with Dr. Jhaveri [place] Meds and New Rx's Prescriptions: New acetaminophen 325 mg capsule 650 mg PO Q6H PRN PRNQty: 90 0RF atorvastatin 40 mg Tablet 40 mg PO HS Qty: 30 0RF docusate sodium [Colace] 100 mg Capsule 100 mg PO TID PRN PRNQty: 30 0RF ferrous sulfate 325 mg (65 mg iron) Tablet 325 mg PO 0600,1800 Qty: 60 0RF lidocaine 5 % Adhesive Patch,Medicated 2 patch topical Q24H Qty: 60 0RF melatonin 3 mg Tablet 3 mg PO HS Qty: 30 0RF metoprolol succinate 50 mg Tablet Extended Release 24 Hr 50 mg PO DAILY Qty: 60 0RF multivitamin [Multiple Vitamins] Tablet 1 tab PO QAM Qty: 30 0RF nicotine 21 mg/24 hr Patch 24 Hour 21 mg transdermal DAILY PRN PRNQty: 30 0RF polyethylene glycol 3350 17 gram Powder In Packet 17 g PO DAILY PRN PRN (Reason: Constipation) Qty: 30 0RF quetiapine 25 mg Tablet 12.5 mg PO HS Qty: 15 0RF tamsulosin 0.4 mg Capsule 0.8 mg PO DAILY Qty: 60 0RF ondansetron 4 mg tablet,disintegrating 4 mg PO Q8H PRNQty: 30 0RF Continued levalbuterol tartrate 45 mcg/actuation HFA aerosol inhaler 1 - 2 puff INHALATION Q4H Qty: 15 3RF Rx Instructions: RESCUE INHALER 03/2023: PLEASE DELIVER (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 Take with food. No Action atorvastatin 40 mg tablet 40 mg PO QHS Qty: 90 3RF tamsulosin 0.4 mg capsule 0.8 mg PO DAILY Qty: 180 3RF Patient Comments: takes sometimes Rx Instructions: BPH/help urinate metoclopramide HCl [Reglan] 10 mg tablet 10 mg PO Q6H PRNQty: 20 0RF Discharge Instructions Referrals: Antonette Riley DPM [[facility] STAFF PHYSICIAN] - (overgrown toe nails-? ingrown, please call to set up an appointment) Activity:: Activity as Tolerated Equipment/Supplies:: Walker Diet:: heart healthy Discharge Orders Discharge Orders: Discharge Order (Routine); Ordered 04/14/24 Ordered By: Tracie Gusman Other Ambulatory Orders: Complete Blood Count w/Diff (Routine) Timeframe: 20240421 Facility: [facility] - Location: Laboratory Outpatient - [facility] Ordered By: Tracie Gusman DS: Summary Time Spent with Patient providing and/or coordinating discharge services: Greater than 30 minutes Status at Discharge Functional status at discharge: uses cane/walker Overall status at discharge: patient is progressing back to baseline Mental Status: mental status grossly normal Speech and Movement: speech and movement normal Mood: congruent mood Affect: normal affect Quality:SDOH Health Related Social Needs: No Data to Display Exam Narrative Exam Narrative: Constitutional The patient is in bed then back calmer than previous, without acute distress HENMT: Facial structures with normal appearance Eyes: Well aligned Neuro:alert and oriented to self, person. Non-focal Resp: scattered ronchi clearing with cough, clear lung bilaterally otherwise with decreased bases Cardio:Tele in atrial -fibrillation w HR 72, irregular rhythm, S1, S2 distant, positive radial and pedal pulses GI: Abdomen is not distended, soft and non tender, bowel sounds are present : No bladder distension-murry in place Integumentary: scratch gaby to LE's d/t previous pruritus-healing now, overgrown toe nails -OPT podiatry referral Psych: RASS 0, congruent mood and normal to anxious affect. Psych Mental Status: mental status grossly normal Speech and Movement: speech and movement normal Mood: congruent mood Affect: normal affect DS: Data Vitals/I&O Vitals and I&O: Vital Signs Temperature 36.7 C 04/14/24 11:23 Temperature Source Skin 04/14/24 11:23 Pulse 80 04/14/24 11:23 Pulse Rhythm Irregular 04/14/24 09:08 Pulse 85 04/11/24 02:46 Respiratory Rate 18 04/14/24 11:23 Respiratory Effort Normal, Non-Labored 04/14/24 09:08 Respiratory Depth Shallow 04/14/24 09:08 Respiratory Pattern Irregular 04/14/24 09:08 Blood Pressure 108/73 04/14/24 11:23 Blood Pressure Mean 94 04/11/24 02:46 Blood Pressure Position Supine 04/10/24 21:24 Pulse Oximetry 93 04/14/24 11:23 Oxygen Delivery Method Room Air 04/14/24 11:23 Oxygen Flow Rate 0 04/14/24 11:23 Pain Level 5 04/14/24 11:23 Comment RN Notified 04/12/24 22:24 Intake & Output 04/13/24 04/14/24 04/14/24 23:59 11:59 23:59 Intake Total 220 / 255 210 / 210 Output Total 300 / 1450 Balance -80 / -1195 210 / 210 Intake: IV 220 / 230 210 / 210 Output: Urine 300 / 1450 Other: Urine Color Yellow Urine Appearance Sediment Sediment Stool Size Moderate Large Stool Characteristics Formed Soft Brown Data Completed and Pending Labs on day of discharge: Labs from last 24 hours 04/14/24 04/13/24 06:10 06:45 WBC 4.67 RBC 4.12 L Hgb 9.4 L Hct 30.8 L MCV 75 L MCH 22.8 L MCHC 30.5 L RDW 20.8 H Plt Count 213 MPV 10.0 Immature Gran % 1.5 Neutrophils % 61.3 Lymphocytes % 21.6 Monocytes % 9.6 Eosinophils % 4.7 Basophils % 1.3 Nucleated RBC % 0.0 Absolute Neutrophils 2.86 Absolute Lymphocytes 1.01 L Absolute Monocytes 0.45 Absolute Eosinophils 0.22 Absolute Basophils 0.06 RBC Morphology See Below Anisocytosis 1+ Microcytosis 1+ Sodium 139 Potassium 3.6 Chloride 105 Carbon Dioxide 27.0 Anion Gap 7.0 BUN 22 H Creatinine 1.9 H Est GFR (CKD-EPI 2020) 35.88 Glucose 125 H Calcium 8.6 Magnesium 1.8 Vitamin B12 237 Folate 14.2 Preliminary micro results at discharge 04/10/24 21:28 Blood Culture - Preliminary Blood Staphylococcus Epidermidis 04/12/24 03:55 Blood Culture - Preliminary Blood NO GROWTH 48 HOURS 04/12/24 03:50 Blood Culture - Preliminary Blood NO GROWTH 48 HOURS 04/10/24 21:25 Blood Culture - Preliminary Blood NO GROWTH 72 HOURS PFSH All Active Problems (Updated 04/14/24 @ 12:27 by Tracie Gusman APRN) Discharge planning issues (Acute) Delirium due to multiple etiologies (Acute) Anemia, chronic disease (Acute) Dehydration (Acute) Acidosis, lactic (Acute) Dehydration, mild (Acute) CKD (chronic kidney disease) stage 3, GFR 30-59 ml/min (Chronic) Lactic acidosis (Acute) Iron deficiency anemia due to chronic blood loss (Chronic) Falls frequently (Acute) Blunt head trauma (Acute) Blunt trauma of multiple sites of trunk (Acute) Fall (Acute) Impaired gait and mobility (Acute ~03/2023) Hyperlipidemia (Chronic) Tobacco abuse disorder (Chronic) Cut down 1/2PPD Personal history of noncompliance with medical treatment and regimen (Chronic) Alcoholic liver disease (Chronic) Anemia (Chronic ~02/2022) S/P GI bleed CHF (congestive heart failure) (Chronic ~02/2023) ECHO 02/2022 LVEF 45-50% Depression (Chronic) Plans on getting connected to social work Tineo's esophagus (Chronic ~04/2019) ETOH; Upper endoscopy 03/2019 (see path report--no tineo's?, but 08/15/2019 surg note says +tineo's) Weakness (Acute) LE weakness; Home PT Urinary retention (Chronic) Dr. Ramos Hypomagnesemia (Chronic) COPD (chronic obstructive pulmonary disease) (Chronic) Atrial fibrillation (Chronic) Paroxysmal per hospital records; not anticoagulated secondary to recurrent GI bleeds from chronic EtOH use Alcohol use disorder (Chronic) Medical History Acute upper gastrointestinal bleeding (~02/2022) Gastric ulcer Troponin level elevated Gout Colchicine prevention Sleeping difficulty Melatonin RX Palliative care patient [place] Insomnia Radicular pain of right lower extremity GI bleed Tineo's esophagus Right knee pain UTI (urinary tract infection) Hematemesis Depression Renal insufficiency Smoking hx Surgical History H/O esophagogastroduodenoscopy (~04/2019) Repeat on 10/26/20 [facility] severe reflux esophagitis w/ non-bleeding esophageal ulcer. Multiplle inflammatory appearing nodules at [facility] Social History Smoking/Tobacco Use Status: Current every day Tobacco Type: cigarettes Years smoked: 50 Smoking risk assessment performed?: Yes Alcohol Intake: current Alcohol Intake frequency: other Alcohol type: hard liquor Drug use: Never Substance use type: does not use Details: Pt has not had alcohol since being at the [facility]. Housing: apartment Do you need help understanding health information?: Rarely current occupation: [employer] '64-68 (served as [employer]) What type of physical activity do you participate in: none Do you feel safe at home: Yes Do you feel safe in your relationship?: Yes Time Spent with Patient Time Spent with Patient: 70-84 minutes4 Time was spent: preparing to see the patient(eg.review tests), obtaining and/or reviewing separately otained hiistory, ordering medications,tests, procedures, referring, communicating with other health palliative care nurse, indepentently interpreting results, counseling the patient and care coordination
== END 2024-04-14 13:08 | disposition skilled nursing facility (03) | DRG 191 ==
LOC: ER 04-11 02:34 → MS 04-11 02:56
PROVIDERS: Internal Medicine; Nurse Practitioner Acute Care; Nurse Practitioner Family; Admitting Provider Family Medicine; Emergency Provider Student in an Organized Health Care Education/Training Program; PCP Nurse Practitioner Adult Health; Visit Provider Family Medicine
DX: J44.1 Chronic obstructive pulmonary disease with (acute) exacerbation (principal); E87.20 Acidosis, unspecified; F05 Delirium due to known physiological condition; I13.0 Hypertensive heart and chronic kidney disease with heart failure and stage 1 through stage 4 chronic kidney disease, or unspecified chronic kidney disease; I50.22 Chronic systolic (congestive) heart failure; E86.0 Dehydration; R29.6 Repeated falls; I48.0 Paroxysmal atrial fibrillation; D50.0 Iron deficiency anemia secondary to blood loss (chronic); E83.42 Hypomagnesemia; F17.210 Nicotine dependence, cigarettes, uncomplicated; N18.32 Chronic kidney disease, stage 3b; Z91.148 Patient's other noncompliance with medication regimen for other reason; K70.9 Alcoholic liver disease, unspecified; R53.1 Weakness; F32.9 Major depressive disorder, single episode, unspecified; K22.70 Barrett's esophagus without dysplasia; R33.9 Retention of urine, unspecified; G47.00 Insomnia, unspecified; Z79.899 Other long term (current) drug therapy
CPT/HCPCS: 00123; 36415; 36416; 36430; 51702; 74177; 76604; 80048; 80053; 80076; 80307; 82550; 82805; 82962; 83690; 84145; 85027; 86850; 86900; 86901; 86920; 87040; 87077; 87637; 93005; 93306; 93308; 96361; 96365; 96366; 96367; 97162; 97166; 97530; 99285; 70450; 71045; 71260; 72125; 80320; 80329; 81003; 82272; 82607; 82728; 82746; 83540; 83550; 83605; 83735; 83880; 84100; 84443; 84484; 85014; 85018; 85025; 85610; 86140; 86880; 87186; 93010; 94640; 94667; 94668; 94760; 99223; 99232; 99233; 99239; J0131; J1650; J1940; J3372; J3411; J3475; J3490; J7613; J7620; P9016

== ENCOUNTER 2024-04-21 18:33 | Outpatient (REF) | payer SELFPAY ==
[2024-04-21 17:42] LABS: Abs Immature Grans 0.06 10^3/uL (0.0-0.06); Absolute Basophil Count 0.05 10^3/uL (0.0-0.2); Absolute Eosinophil Count 0.14 10^3/uL (0.0-0.7); Absolute Lymphocyte Count 0.99 10^3/uL (1.2-3.4); Absolute Monocyte Count 0.65 10^3/uL (0.1-0.8); Absolute Neutrophil Count 3.31 10^3/uL (1.2-6.7); Eosinophils % 2.7 %; HCT 38.2 % (40.0-50.0); HGB 11.6 g/dL (13.5-17.5); Immature Grans % 1.2 %; MCH 24.1 pg (27.0-33.0); MCHC 30.4 % (32.0-36.0); MCV 79 fL (80-95); MPV 10.6 fL (8.0-11.0); Monocytes % 12.5 %; Neutrophils % 63.6 %; Platelet Count 251 10^3/uL (130-400); RBC 4.81 10^6/uL (4.36-5.78); RDW 24.2 % (11.8-14.1); RDW-SD 68.2 fL
[2024-04-21 17:54] LABS: Iron 301 ug/dL (65-175); Total Iron Binding Capacity 454 ug/dL (250-450); Transferrin Sat 66 % (20-55)
[2024-04-21 18:22] LABS: Hemoglobin A1C 5.5 % (<5.7)
[2024-04-21 18:24] LABS: ALT 29 U/L (16-63); AST 23 U/L (15-37); Albumin 3.5 g/dL (3.4-5.0); Alkaline Phosphatase 68 U/L (46-116); Anion Gap 9.6 mmol/L (3-11); BUN 31 mg/dL (7-18); Bilirubin, Total 0.29 mg/dL (0.2-1.0); CO2 27.4 mmol/L (21.0-32.0); CREATININE 1.9 mg/dL (0.70-1.30); Calcium 8.7 mg/dL (8.5-10.1); Chloride 107 mmol/L (98-107); Estimated GFR 35.88 (mL/min/1.73m2); Ferritin 30 ng/mL (26-388); Folate 11.2 ng/mL (8.6-20.0); Glucose 114 mg/dL (74-106); Magnesium 1.5 mg/dL (1.8-2.4); Potassium 4.9 mmol/L (3.5-5.1); Sodium 144 mmol/L (136-145); TSH (W/Ref FT4) 4.47 uIU/mL (0.36-3.74); Total Protein 6.3 g/dL (6.4-8.2); Vitamin B12 303 pg/mL (193-986); Vitamin D 25 Total 64.7 ng/mL (30-100)
[2024-04-21 18:27] LABS: Anisocytosis 2+; Diff Comment RBC Morph Reviewed
[2024-04-21 18:42] LABS: FREE T4 0.95 ng/dL (0.76-1.46); NT-proBNP 1221 pg/mL (<300)
[2024-04-27 09:21] LABS: Thiamine (Vitamin B1), WB 259 nmol/L (70-180)
== END 2024-04-21 18:34 | disposition home or self-care (01) ==
LOC: LBN 18:33
PROVIDERS: PCP Nurse Practitioner Adult Health; Visit Provider Nurse Practitioner Gerontology
DX: I50.9 Heart failure, unspecified (principal); I11.0 Hypertensive heart disease with heart failure; E83.42 Hypomagnesemia; I11.9 Hypertensive heart disease without heart failure; R53.82 Chronic fatigue, unspecified; R73.09 Other abnormal glucose; G89.4 Chronic pain syndrome; D52.9 Folate deficiency anemia, unspecified; D51.9 Vitamin B12 deficiency anemia, unspecified
CPT/HCPCS: 80053; 82306; 82607; 82728; 82746; 83036; 83540; 83550; 83735; 83880; 84425; 84439; 84443; 85025

== ENCOUNTER 2024-06-17 00:18 | Inpatient (IN) | payer OTHER, SELFPAY ==
[2024-06-17] VITALS (127 sets, daily range): BP systolic 105–166; BP diastolic 47–107; PULSE 59–133; RESP 10–23; TEMP 35.5–36.7; O2SAT 91–100; BMI 25.7
--- NOTE | 2024-06-17 00:15 | RT.EKG_ITS ---
APPROVED REPORT Exam: Resting ECG Reason for Exam: chest pain Patient Location: E HR:135 bpm ECG Measurements Heart Rate 135 AXIS VT [id number] P [id number] QRSd 79 QRS 81 QT 312 T 72 QTc 469 Conclusion Atrial fibrillation...V-rate 108-147, irreg A-activity Ventricular premature complex...V complex w/ short R-R interval Low voltage, extremity and precordial leads...extremity<0.5mV, precordial<1.0mV I have reviewed and interpreted ECG and agree with software generated interpretation.
[2024-06-17 00:44] LABS: Abs Immature Grans 0.05 10^3/uL (0.0-0.06); Absolute Basophil Count 0.11 10^3/uL (0.0-0.2); Absolute Eosinophil Count 0.02 10^3/uL (0.0-0.7); Absolute Lymphocyte Count 1.14 10^3/uL (1.2-3.4); Absolute Monocyte Count 0.55 10^3/uL (0.1-0.8); Absolute Neutrophil Count 7.65 10^3/uL (1.2-6.7); Basophils % 1.2 %; Eosinophils % 0.2 %; HCT 37.1 % (40.0-50.0); HGB 11.5 g/dL (13.5-17.5); Immature Grans % 0.5 %; MCH 26.8 pg (27.0-33.0); MCV 87 fL (80-95); MPV 8.9 fL (8.0-11.0); Monocytes % 5.8 %; Neutrophils % 80.3 %; Platelet Count 273 10^3/uL (130-400); RBC 4.29 10^6/uL (4.36-5.78); RDW 21.2 % (11.8-14.1); RDW-SD 68.2 fL; WBC 9.52 10^3/uL (4.4-10.8)
--- NOTE | 2024-06-17 01:00 | DI.CT_ITS ---
Exam(s) CT CHEST/ABD/PEL WO EXAM: CT CHEST/ABD/PEL WO CLINICAL HISTORY: upper gi bleed, renal failure. TECHNIQUE: Imaging Protocol: Axial computed tomography images with coronal and sagittal reformatted images were created and reviewed CONTRAST MATERIAL: Noncontrast Oral: no COMPARISON: CT CT CHEST/ABD/PEL W from 04/10/2024 FINDINGS: CHEST: Mildly limited by respiratory motion. Tracheobronchial tree: Patent. Pulmonary parenchyma: No consolidation or dominant measurable mass. Mild emphysematous changes. Pleu ra: No effusion or pneumothorax. Mediastinum: Mild distal esophageal wall thickening. No pneumomediastinum. Aorta: Thoracic portion non-dilated. Atherosclerotic calcifications. Pulmonary arteries: No visible emboli. Heart: No pericardial effusion. Severe coronary artery calcifications. Bones: Scoliosis and degenerative changes. No lytic or blastic lesions.No compression fractures. Soft tissues: Mild bilateral gynecomastia. ABDOMEN and PELVIS: Liver: Mild hepatic steatosis.. No measurable mass. Gallbladder and biliary tract: No evidence of stones or wall thickening. No biliary dilatation. Pancreas: Normal density, no abnormal calcifications or inflammatory process. Spleen: Normal. Kidneys: Normal size, contour and axis. No radiodense stones. No obstructive uropathy. No suspicious masses seen. Adrenal glands: No masses seen. Aorta: Abdominal portion non-dilated. Severe atherosclerotic calcifications. Lymph nodes: Within normal limits. Soft tissues: Unremarkable. Bladder: Unremarkable. Bowel: No abnormal gastric distension. No visible ulcer. No obstruction or bowel wall thickening. D iverticulosis descending and sigmoid colon. No evidence of diverticulitis. Appendix normal. Peritoneal cavity: No ascites. No focal collection. No mesenteric inflammatory response. No free ai r. Bones: Mild scoliosis and degenerative changes. Reproductive organs: Prostate not enlarged. IMPRESSION: Mild wall thickening of the distal esophagus without evidence of perforation. Stomach and small bowel are unremarkable. There is diverticulosis of the descending and sigmoid colo n without evidence of diverticulitis. RADIATION DOSE DELIVERED: Total DLP DATA REPOSITORY: All CT scans at this facility are submitted to the National Radiology Data Registry (NRDR) Dose Index Registry (DIR) with the [employer] (ACR). RADIATION OPTIMIZATION: All CT scans at this facility use at least one of these dose optimization te chniques: automated exposure control; mA and/or kV adjustment per patient size (includes targeted exa ms where dose is matched to clinical indication); or iterative reconstruction.
[2024-06-17 01:01] LABS: ALT 23 U/L (16-63); AST 32 U/L (15-37); Albumin 3.8 g/dL (3.4-5.0); Alkaline Phosphatase 65 U/L (46-116); Anion Gap 23.9 mmol/L (3-11); BUN 66 mg/dL (7-18); Bilirubin, Total 1.14 mg/dL (0.2-1.0); CO2 18.1 mmol/L (21.0-32.0); CREATININE 2.7 mg/dL (0.70-1.30); Calcium 8.9 mg/dL (8.5-10.1); Chloride 98 mmol/L (98-107); Estimated GFR 23.39 (mL/min/1.73m2); Glucose 136 mg/dL (74-106); Potassium 5.6 mmol/L (3.5-5.1); Sodium 140 mmol/L (136-145); Total Protein 7.2 g/dL (6.4-8.2)
[2024-06-17 01:03] LABS: Troponin I 28 ng/L (<or=76)
[2024-06-17 01:12] LABS: ETHANOL BLOOD < 3.0 mg/dL (<10)
[2024-06-17 01:17] LABS: Magnesium 1.4 mg/dL (1.8-2.4)
[2024-06-17] MEDS: FAMOTIDINE 20 MG in Normal Saline 100 ML 400 MG IVPB (01:19)
[2024-06-17] MEDS: Lactated Ringers 1,000 ML 1000 ML IV (01:20)
[2024-06-17] MEDS: Pantoprazole 40 MG VIAL IVP (01:20)
--- NOTE | 2024-06-17 01:26 | ED.GENADUL_ITS ---
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 Take with food. docusate sodium [Colace] 100 mg capsule 100 mg PO BID Qty: 30 0RF magnesium oxide 500 mg magnesium tablet 500 mg PO BID B-complex with vitamin C Tablet 1 tab PO DAILY multivitamin with iron Tablet 1 tab PO DAILY mirtazapine 7.5 mg tablet 7.5 mg PO QHS thiamine mononitrate (vit B1) 100 mg tablet 100 mg PO DAILY cetirizine 5 mg tablet 5 mg PO DAILY PRN amlodipine 5 mg tablet 5 mg PO DAILY acetaminophen 325 mg capsule 650 mg PO Q6H PRN PRNQty: 90 0RF atorvastatin 40 mg Tablet 40 mg PO HS Qty: 30 0RF ferrous sulfate 325 mg (65 mg iron) Tablet 325 mg PO 0600,1800 Qty: 60 0RF melatonin 3 mg Tablet 3 mg PO HS Qty: 30 0RF metoprolol succinate 50 mg Tablet Extended Release 24 Hr 50 mg PO DAILY Qty: 60 0RF nicotine 21 mg/24 hr Patch 24 Hour 21 mg transdermal DAILY PRN PRNQty: 30 0RF polyethylene glycol 3350 17 gram Powder In Packet 17 g PO DAILY PRN PRN (Reason: Constipation) Qty: 30 0RF tamsulosin 0.4 mg Capsule 0.8 mg PO DAILY Qty: 60 0RF HPI General Date/Time Provider Initiated Documentation: 06/17/24 00:20 . HPI Narrative: 79-year-old male with a past medical history of chronic kidney disease, chronic alcoholism drinking a cup of whiskey a day, previous upper GI bleed, congestive heart failure, Tineo's esophagus, COPD, atrial fibrillation not on any anticoagulants, presents today for vomiting blood. Patient states that this has been going on all day. He has had multiple episodes of vomiting up dark tarry coffee grounds and blood. He denies any significant bright red blood. He did not drink any whiskey tonight. He admits to mild epigastric discomfort. He denies any tearing or ripping sensation in his chest. He states that his coughing will sometimes make it worse. He denies any other complaints at this time. No other modifying factors. Related Data Home Medications ?Medication ?Instructions ?Recorded ?Confirmed levalbuterol tartrate 45 1 - 2 puff inhalation Q4H #15 grams 04/18/23 04/10/24 mcg/actuation aerosol inhaler magnesium chloride 64 mg 64 mg PO DAILY AM #90 tabs 04/18/23 04/10/24 (magnesium chloride) tablet pantoprazole 40 mg tablet,delayed 40 mg PO DAILY AM #90 tabs 04/18/23 04/10/24 release ibuprofen 600 mg tablet 600 mg PO BID PRN pain #12 tabs 06/19/23 04/10/24 acetaminophen 325 mg capsule 650 mg (2 x 325 mg) PO Q6H PRN PRN 04/14/24 #90 caps atorvastatin 40 mg tablet 40 mg PO HS #30 tabs 04/14/24 ferrous sulfate 325 mg (65 mg 325 mg PO 0600,1800 #60 tabs 04/14/24 iron) tablet melatonin 3 mg tablet 3 mg PO HS #30 tabs 04/14/24 metoprolol succinate 50 mg 50 mg PO DAILY #60 tabs 04/14/24 tablet,extended release 24 hr nicotine 21 mg/24 hr daily 21 mg transdermal DAILY PRN PRN 04/14/24 transdermal patch #30 ea polyethylene glycol 3350 17 gram 17 g PO DAILY PRN PRN Constipation 04/14/24 oral powder packet #30 ea tamsulosin 0.4 mg capsule 0.8 mg (2 x 0.4 mg) PO DAILY #60 04/14/24 caps B-complex with vitamin C 1 tab PO DAILY 05/14/24 cetirizine 5 mg tablet 5 mg PO DAILY PRN 05/14/24 docusate sodium 100 mg capsule 100 mg PO BID #30 caps 05/14/24 (Colace) magnesium oxide 500 mg PO BID 05/14/24 mirtazapine 7.5 mg tablet 7.5 mg PO QHS 05/14/24 multivitamin with iron 1 tab PO DAILY 05/14/24 thiamine mononitrate (vit B1) 100 100 mg PO DAILY 05/14/24 mg tablet amlodipine 5 mg tablet 5 mg PO DAILY 05/27/24 Previous Rx's ?Medication ?Instructions ?Recorded levalbuterol tartrate 45 1 - 2 puff inhalation Q4H #15 grams 04/18/23 mcg/actuation aerosol inhaler magnesium chloride 64 mg 64 mg PO DAILY AM #90 tabs 04/18/23 (magnesium chloride) tablet pantoprazole 40 mg tablet,delayed 40 mg PO DAILY AM #90 tabs 04/18/23 release ibuprofen 600 mg tablet 600 mg PO BID PRN pain #12 tabs 06/19/23 acetaminophen 325 mg capsule 650 mg (2 x 325 mg) PO Q6H PRN PRN 04/14/24 #90 caps atorvastatin 40 mg tablet 40 mg PO HS #30 tabs 04/14/24 ferrous sulfate 325 mg (65 mg 325 mg PO 0600,1800 #60 tabs 04/14/24 iron) tablet melatonin 3 mg tablet 3 mg PO HS #30 tabs 04/14/24 metoprolol succinate 50 mg 50 mg PO DAILY #60 tabs 04/14/24 tablet,extended release 24 hr nicotine 21 mg/24 hr daily 21 mg transdermal DAILY PRN PRN 04/14/24 transdermal patch #30 ea polyethylene glycol 3350 17 gram 17 g PO DAILY PRN PRN Constipation 04/14/24 oral powder packet #30 ea tamsulosin 0.4 mg capsule 0.8 mg (2 x 0.4 mg) PO DAILY #60 04/14/24 caps docusate sodium 100 mg capsule 100 mg PO BID #30 caps 05/14/24 (Colace) Allergies Allergy/AdvReac Type Severity Reaction Status Date / Time bupropion AdvReac Severe seizures Verified 06/17/24 00:23 General Stated Complaint: GI Bleed JENNA: 3 Review of Systems All systems reviewed & are unremarkable except as noted in HPI and below Exam Narrative Exam Narrative: 1.Const: Well-nourished, Well-developed, appearing stated age 2.Eyes: PERRL, no conjunctival injection, and symmetrical lids. 3.ENT: Atraumatic external nose and ears. Moist MM. Neck: Symmetric, trachea mid line, No thyromegaly. Dark tarry blood is noted all over the patient's irwin and chest 4.CVS: +S1/S2, No murmurs or gallops. Peripheral pulses 2+ and equal in all extremities. Brisk capillary refill in all extremities. 5.RESP: Unlabored respiratory effort. Clear to auscultation bilaterally. No wheezes rales or rhonchi 6.GI: Soft, Nondistended, No hepatosplenomegaly. No guarding or rebound. Minimal achiness and tenderness in the epigastric region 7.MSK: Normocephalic/Atraumatic, Extremities w/o deformity or ttp No cyanosis or clubbing, Normal movement of all extremities 8.Skin: Warm, Dry. No rashes or lesions. 9.Neuro: measuring machine tender II-XII grossly intact. Sensation grossly intact, no focal neurologic deficits. 10.Psych: (AAO) x3. Appropriate mood and affect Course Vital Signs Vital signs: Vital Signs Temperature 36.7 C 06/17/24 00:08 Pulse 125 H 06/17/24 00:08 Respiratory Rate 18 06/17/24 00:08 Blood Pressure 150/80 H 06/17/24 00:08 Pulse Oximetry 98 06/17/24 00:08 Temperature 36.7 C 06/17/24 00:08 Temperature Source Temporal Artery Scan 06/17/24 00:08 Pulse 125 H 06/17/24 00:08 Respiratory Rate 18 06/17/24 00:08 Respiratory Effort Normal, Non-Labored 06/17/24 00:19 Blood Pressure 150/80 H 06/17/24 00:08 Blood Pressure Position Sitting 06/17/24 00:08 Pulse Oximetry 98 06/17/24 00:08 Oxygen Delivery Method Room Air 06/17/24 00:08 Oxygen Flow Rate 0 06/17/24 00:08 Pain Level 0 06/17/24 00:20 Lab/Test Results Lab/Test Results: Laboratory Tests Range/Units 06/17/24 06/17/24 06/17/24 00:35 00:35 00:43 PT Cancelled Cancelled INR Cancelled Cancelled APTT Cancelled Cancelled VBG Lactate (0.6-1.4) mmol/L 4.0 H* Sodium (136-145) mmol/L 140 Potassium (3.5-5.1) mmol/L 5.6 H Chloride (98-107) mmol/L 98 Carbon Dioxide (21.0-32.0) mmol/L 18.1 L Anion Gap (3-11) mmol/L 23.9 H BUN (7-18) mg/dL 66 H Creatinine (0.70-1.30) mg/dL 2.7 H Est GFR (CKD-EPI 2020) (mL/min/1.73m2) 23.39 Glucose (74-106) mg/dL 136 H Calcium (8.5-10.1) mg/dL 8.9 Magnesium (1.8-2.4) mg/dL 1.4 L Total Bilirubin (0.2-1.0) mg/dL 1.14 H AST (15-37) U/L 32 ALT (16-63) U/L 23 Alkaline Phosphatase (46-116) U/L 65 Troponin I (<or=76) ng/L 28 Cancelled Total Protein (6.4-8.2) g/dL 7.2 Albumin (3.4-5.0) g/dL 3.8 Ethyl Alcohol (<10) mg/dL < 3.0 Medical Decision Making 79-year-old male with a past medical history of chronic kidney disease, chronic alcoholism drinking a cup of whiskey a day, previous upper GI bleed, congestive heart failure, Tineo's esophagus, COPD, atrial fibrillation not on any anticoagulants, presents today for vomiting blood. Patient states that this has been going on all day. He has had multiple episodes of vomiting up dark tarry coffee grounds and blood. He denies any significant bright red blood. He did not drink any whiskey tonight. He admits to mild epigastric discomfort. He denies any tearing or ripping sensation in his chest. He states that his coughing will sometimes make it worse. He denies any other complaints at this time. No other modifying factors. Exam demonstrates a tachycardic male, blood pressure stable. Mild epigastric tenderness. Notable dried blood all over his close in his irwin. He is actively having repeat episodes of hematemesis here. Concern for Kira-Mariano tear, variceal bleed, gastric ulcer with bleed. Will rehydrate with a liter of normal saline, we will give Protonix, famotidine boluses, as well as a Protonix infusion. Will give an octreotide bolus and infusion. Will manage his nausea, get a CT image of his chest, monitor closely and reassess. 1:31 AM Patient demonstrates hemoglobin of 11.5, which is around his baseline, lactate notably elevated at 4, potassium high at 5.6, EKG does not show any evidence of significant T wave peaking though. Creatinine worse than normal at 2.7, BUN 66 suggestive of upper bleed. Magnesium mildly low at 1.4. Troponin normal. Patient has been typed and screened. Medications have been administered. Will add D50, calcium gluconate, 5 units of insulin, and 2 nebulized albuterol's for treatment of his hyperkalemia. Pending CT imaging at this time. 4:[address] scan results demonstrate thickening of the esophagus and the stomach. Patient has had no more episodes of hematemesis. Vital signs remained stable. He does have some tachycardia but his blood pressure remains mildly hypertensive with no evidence of shock. Pending repeat blood work for hemoglobin and potassium. Patient at this point has received a bolus of octreotide Protonix and famotidine and is currently on a octreotide and Protonix infusion. Currently we do not have [facility] or ICU [facility]. We did contact [facility], [facility], [facility], and [facility]. None are currently available for transfer. Patient does require EGD for further evaluation and visualization of potential bleeding gastric or esophageal ulcer. Esophageal varices certainly is on the differential as well. Because of the stability which the patient has now demonstrated with no more episodes of vomiting, and a stable blood pressure I did contact her surgeon Dr. Mejia. I also contacted household appliances salesperson and the billing administrator on-call Mireya Weston. The situation was explained. The decision has been made with a shared decision-making process of all parties that we will keep the patient here, bring him to the OR, and keeping him in PACU postoperatively until a bed comes available for potential discharge on the [facility]. We will add Zosyn to her treatment regiment, and also give a gram of TXA and an infusion. This was discussed with Dr. Mejia. Patient will remain here in the ED until disposition to the OR. 6:[address] Mejia has agreed to take the patient to the OR, but does request medical admission secondary to his multiple comorbidities. Repeat labs demonstrate a notably improved potassium at 4, however the patient's calcium notably diminished down to 6. We will give an additional/second amp of calcium gluconate. I discussed all of this with the hospitalist Dr. Maradiaga, he agrees with the assessment and plan. Patient will be admitted to medicine with surgical consult. Patient has had no additional hematemesis episodes. I have extensively reviewed the treatment plan with the patient. I have addressed all patient concerns at this time. I have also discussed the plan with the admitting physician and they agree with the current assessment and plan and have agreed to assume responsibility for the patient. All parties demonstrate verbal understanding and agreement with our assessment and plan at this time. The documentation in this chart was dictated using [employer] dictation software. Please excuse any dictation errors. Of note the patient's repeat CBC just came back, and hemoglobin has dropped 3 points to 8.3. FINDINGS: Limitations: Mild motion artifact. Lungs: No focal consolidation seen. Pleural spaces: No pleural effusion. Heart: No pericardial effusion. Coronary arteries: Coronary artery calcifications. Esophagus: Mild esophageal thickening. Lymph nodes: Nonspecific mediastinal lymph nodes. Vasculature: Extensive arterial calcifications. Diaphragm: Small hiatal hernia. Intraperitoneal space: CT scan of the abdomen and pelvis dictated separately Bones/joints: No acute pertinent abnormality appreciated. Soft tissues: Gynecomastia. IMPRESSION: 1. Mild esophageal thickening suggesting esophagitis. Cannot exclude neoplasm. Follow-up as clinically warranted. 2. Additional studies dictated separately. FINDINGS: Limitations: Mild motion artifact. Lungs: CT scan of the chest dictated separately. Diaphragm: Small hiatal hernia. Liver: Hepatic steatosis. Gallbladder and biliary ducts: Distended gallbladder. Pancreas: No CT evidence for acute pancreatitis. Spleen: No splenomegaly. Adrenal glands: Adrenal thickening. Kidneys and ureters: Lobulations in the kidneys. No hydronephrosis. Stomach and bowel: Apparent gastric thickening commensurate with incomplete distension. No intestinal obstruction is evident. Colonic diverticula. There are inflammatory changes adjacent to the descending colon consistent with diverticulitis. Appendix: No evidence of appendicitis. Intraperitoneal space: No free air. Vasculature: Extensive arterial calcifications. Lymph nodes: Nonspecific mesenteric lymph nodes. Urinary bladder: No acute findings. Reproductive: Prostatic calcifications. Bones/joints: No pertinent acute abnormality seen. Soft tissues: No pertinent acute abnormality seen. IMPRESSION: 1. Findings consistent with diverticulitis of the descending colon. 2. Mild gastric thickening likely secondary to incomplete distension. Gastritis or neoplasm considered less likely but cannot be excluded. Follow-up if clinically warranted. 3. Additional findings as above. 4. Additional studies dictated separately. Thank you for allowing us to participate in the care of your patient. Dictated and Authenticated by: Tish Sousa MD 06/17/2024 3:19 AM Eastern Time ([place] & [place]) Quality:SDOH Health Related Social Needs: No Data to Display Critical Care Time Critical Care Time Critical Care Time: Yes Total Critical Care Time: 90 Attestation: Upon my evaluation, this patient had a high probability of imminent or life- threatening deterioration, which required my direct attention, intervention, and personal management. I have personally provided 90 minutes of critical care time exclusive of time spent on separately billable procedures. Time includes review of laboratory data, radiology results, discussion with consultants, and monitoring for potential decompensation. Interventions were performed as documented. PFSH All Active Problems (Updated 06/17/24 @ 06:55 by Crescencio Maradiaga MD) Upper GI bleed (Acute) Acute kidney injury (Acute) Acute hyperkalemia (Acute) Gastrointestinal hemorrhage with hematemesis (Acute) Delirium due to multiple etiologies (Acute) Anemia, chronic disease (Acute) CKD (chronic kidney disease) stage 3, GFR 30-59 ml/min (Chronic) Falls frequently (Acute) Blunt head trauma (Acute) Blunt trauma of multiple sites of trunk (Acute) Fall (Acute) Impaired gait and mobility (Acute ~03/2023) Hyperlipidemia (Chronic) Tobacco abuse disorder (Chronic) Cut down 1/2PPD Personal history of noncompliance with medical treatment and regimen (Chronic) Alcoholic liver disease (Chronic) Anemia (Chronic ~02/2022) S/P GI bleed CHF (congestive heart failure) (Chronic ~02/2023) ECHO 02/2022 LVEF 45-50% Depression (Chronic) Plans on getting connected to social work Tineo's esophagus (Chronic ~04/2019) ETOH; Upper endoscopy 03/2019 (see path report--no tineo's?, but 08/15/2019 surg note says +tineo's) Weakness (Acute) LE weakness; Home PT Urinary retention (Chronic) Dr. Ramos COPD (chronic obstructive pulmonary disease) (Chronic) Atrial fibrillation (Chronic) Paroxysmal per hospital records; not anticoagulated secondary to recurrent GI bleeds from chronic EtOH use Medical History Iron deficiency anemia due to chronic blood loss Hypomagnesemia Alcohol use disorder Acute upper gastrointestinal bleeding (~02/2022) Gastric ulcer Troponin level elevated Gout Colchicine prevention Sleeping difficulty Melatonin RX Palliative care patient [place] Insomnia Radicular pain of right lower extremity GI bleed Tineo's esophagus Right knee pain UTI (urinary tract infection) Hematemesis Depression Renal insufficiency Smoking hx Surgical History H/O esophagogastroduodenoscopy (~04/2019) Repeat on 10/26/20 [facility] [place] [facility] severe reflux esophagitis w/ non-bleeding esophageal ulcer. Multiplle inflammatory appearing nodules at [facility] Social History Smoking/Tobacco Use Status: Current every day Tobacco Type: cigarettes Years smoked: 50 Smoking risk assessment performed?: Yes Alcohol Intake: current Alcohol Intake frequency: other Alcohol type: hard liquor Drug use: Never Substance use type: does not use Details: Pt has not had alcohol since being at the [facility]. 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) What type of physical activity do you participate in: none Do you feel safe at home: Yes Do you feel safe in your relationship?: Yes PAWSS Have you Been Recently Intoxicated or Drunk Within the Last 30 days?: No Have you Ever Experienced Previous Episodes of Alcohol Withdrawal?: No Have you ever Experienced Withdrawal Seizures?: No Have you ever Experienced Delirium Tremens(DT)s?: No Have you ever undergone Alcohol Rehabilitation Treatment (i.e, inpt ot outpatient treatment programs)?: Yes Have you ever Experienced Blackouts?: No Have you ever Combined Alcohol with other Downers within the last 90 days?: No Have you ever Combined Alcohol with any other Substance of Abuse during the last 90 days?: No Positive Blood Alcohol level on Presentation? [PCS.BAL]: No Evidence of Increased Autonomic Activity (i.e. HR>120, tremor, sweating, agitation, nausea)?: No Result: 1
[2024-06-17 01:29] LABS: Anisocytosis 1+; Diff Comment RBC Morph Reviewed
[2024-06-17 01:44] LABS: PTT Activated 28.9 sec (23.6-32.8); Prothrombin Time 10.3 sec (9.1-11.1)
[2024-06-17] MEDS: Ondansetron 4 MG/2 ML VIAL IVP (01:57)
[2024-06-17] MEDS: Metoclopramide 10 MG/2 ML VIAL IVP (01:57)
[2024-06-17] MEDS: Albuterol 2.5 MG/3 ML INH SOLN VIAL 5 MG UPD (01:57)
[2024-06-17] MEDS: Insulin REGULAR-Human 100 UNITS/ML UNIT IV (01:58)
[2024-06-17] MEDS: PANTOPRAZOLE 80 MG in Normal Saline 100 ML 10 MG IV (02:24)
[2024-06-17] MEDS: Normal Saline 1,000 ML 1000 ML IV (02:24)
[2024-06-17] MEDS: Dextrose 50%-Water 25 GM/50 ML SYR IVP (02:40)
[2024-06-17] MEDS: Calcium Gluconate 4.65 MEQ/10 ML VIAL 4.65 MG IVP ×2 (02:41→06:40)
[2024-06-17] MEDS: OCTREOTIDE 250 MCG in Normal Saline 245 ML 50 MCG IV (03:08)
[2024-06-17 03:19] LABS: Troponin I 26 ng/L (<or=76)
--- NOTE | 2024-06-17 03:19 | DI.VRAD_ITS ---
PROCEDURE INFORMATION: Exam: CT Chest Without Contrast; Diagnostic Exam date and time: 06/17/2024 1:36 AM Age: 79 years old Clinical indication: Abdominal pain; Generalized; Prior surgery; Surgery date: 6+ months; Surgery type: H/o esophagogastroduodenoscopy; Patient HX: Upper gi bleed, renal failure. Vomiting blood, HX of esophageal tear TECHNIQUE: Imaging protocol: Diagnostic computed tomography of the chest without contrast. 3D rendering (Not supervised by radiologist): MIP and/or 3D reconstructed images were created by the technologist. Radiation optimization: All CT scans at this facility use at least one of these dose optimization techniques: automated exposure control; mA and/or kV adjustment per patient size (includes targeted exams where dose is matched to clinical indication); or iterative reconstruction. COMPARISON: CT CHEST/ABD/PEL W 04/10/2024 10:50 PM FINDINGS: Limitations: Mild motion artifact. Lungs: No focal consolidation seen. Pleural spaces: No pleural effusion. Heart: No pericardial effusion. Coronary arteries: Coronary artery calcifications. Esophagus: Mild esophageal thickening. Lymph nodes: Nonspecific mediastinal lymph nodes. Vasculature: Extensive arterial calcifications. Diaphragm: Small hiatal hernia. Intraperitoneal space: CT scan of the abdomen and pelvis dictated separately. Bones/joints: No acute pertinent abnormality appreciated. Soft tissues: Gynecomastia. IMPRESSION: 1. Mild esophageal thickening suggesting esophagitis. Cannot exclude neoplasm. Follow-up as clinically warranted. 2. Additional studies dictated separately. PROCEDURE INFORMATION: Exam: CT Abdomen And Pelvis Without Contrast Exam date and time: 06/17/2024 1:36 AM Age: 79 years old Clinical indication: Abdominal pain; Generalized; Prior surgery; Surgery date: 6+ months; Surgery type: H/o esophagogastroduodenoscopy; Patient HX: Upper gi bleed, renal failure. Vomiting blood, HX of esophageal tear TECHNIQUE: Imaging protocol: Computed tomography of the abdomen and pelvis without contrast. 3D rendering (Not supervised by radiologist): MIP and/or 3D reconstructed images were created by the technologist. Radiation optimization: All CT scans at this facility use at least one of these dose optimization techniques: automated exposure control; mA and/or kV adjustment per patient size (includes targeted exams where dose is matched to clinical indication); or iterative reconstruction. COMPARISON: CT CHEST/ABD/PEL W 04/10/2024 10:50 PM FINDINGS: Limitations: Mild motion artifact. Lungs: CT scan of the chest dictated separately. Diaphragm: Small hiatal hernia. Liver: Hepatic steatosis. Gallbladder and biliary ducts: Distended gallbladder. Pancreas: No CT evidence for acute pancreatitis. Spleen: No splenomegaly. Adrenal glands: Adrenal thickening. Kidneys and ureters: Lobulations in the kidneys. No hydronephrosis. Stomach and bowel: Apparent gastric thickening commensurate with incomplete distension. No intestinal obstruction is evident. Colonic diverticula. There are inflammatory changes adjacent to the descending colon consistent with diverticulitis. Appendix: No evidence of appendicitis. Intraperitoneal space: No free air. Vasculature: Extensive arterial calcifications. Lymph nodes: Nonspecific mesenteric lymph nodes. Urinary bladder: No acute findings. Reproductive: Prostatic calcifications. Bones/joints: No pertinent acute abnormality seen. Soft tissues: No pertinent acute abnormality seen. IMPRESSION: 1. Findings consistent with diverticulitis of the descending colon. 2. Mild gastric thickening likely secondary to incomplete distension. Gastritis or neoplasm considered less likely but cannot be excluded. Follow-up if clinically warranted. 3. Additional findings as above. 4. Additional studies dictated separately. Dictated and Authenticated by: Tsih Sousa MD. Ordering:SHIMON Hancock MD
[2024-06-17] MEDS: Tranexamic Acid 1,000 MG/10 ML VIAL 1000 MG IVP (04:15)
[2024-06-17] MEDS: PIPERACILLIN/TAZO 4.5 GM in Normal Saline 100 ML IVPB (04:15)
[2024-06-17 04:35] LABS: Troponin I 25 ng/L (<or=76)
[2024-06-17] MEDS: TRANEXAMIC ACID/SOD. CHL. 1,000 MG/100 ML BAG 12.5 MG IV (05:01)
--- NOTE | 2024-06-17 05:59 | SCONE_ITS ---
Date of service: 06/17/24 Time of Service: 05:59 [facility] All Active Problems (Updated 06/17/24 @ 05:02 by Satni Dangelo DO) Acute kidney injury (Acute) Acute hyperkalemia (Acute) Gastrointestinal hemorrhage with hematemesis (Acute) Delirium due to multiple etiologies (Acute) Anemia, chronic disease (Acute) CKD (chronic kidney disease) stage 3, GFR 30-59 ml/min (Chronic) Falls frequently (Acute) Blunt head trauma (Acute) Blunt trauma of multiple sites of trunk (Acute) Fall (Acute) Impaired gait and mobility (Acute ~03/2023) Hyperlipidemia (Chronic) Tobacco abuse disorder (Chronic) Cut down 1/2PPD Personal history of noncompliance with medical treatment and regimen (Chronic) Alcoholic liver disease (Chronic) Anemia (Chronic ~02/2022) S/P GI bleed CHF (congestive heart failure) (Chronic ~02/2023) ECHO 02/2022 LVEF 45-50% Depression (Chronic) Plans on getting connected to social work Tineo's esophagus (Chronic ~04/2019) ETOH; Upper endoscopy 03/2019 (see path report--no tineo's?, but 08/15/2019 surg note says +tineo's) Weakness (Acute) LE weakness; Home PT Urinary retention (Chronic) Dr. Ramos COPD (chronic obstructive pulmonary disease) (Chronic) Atrial fibrillation (Chronic) Paroxysmal per hospital records; not anticoagulated secondary to recurrent GI bleeds from chronic EtOH use Medical History Iron deficiency anemia due to chronic blood loss Hypomagnesemia Alcohol use disorder Acute upper gastrointestinal bleeding (~02/2022) Gastric ulcer Troponin level elevated Gout Colchicine prevention Sleeping difficulty Melatonin RX Palliative care patient [place]bert[place] Insomnia Radicular pain of right lower extremity GI bleed Tineo's esophagus Right knee pain UTI (urinary tract infection) Hematemesis Depression Renal insufficiency Smoking hx Surgical History H/O esophagogastroduodenoscopy (~04/2019) Repeat on 10/26/20 [facility] severe reflux esophagitis w/ non-bleeding esophageal ulcer. Multiplle inflammatory appearing nodules at [facility] Social History Smoking/Tobacco Use Status: Current every day Tobacco Type: cigarettes Years smoked: 50 Smoking risk assessment performed?: Yes Alcohol Intake: current Alcohol Intake frequency: other Alcohol type: hard liquor Drug use: Never Substance use type: does not use Details: Pt has not had alcohol since being at the [facility]. 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[employer]) What type of physical activity do you participate in: none Do you feel safe at home: Yes Do you feel safe in your relationship?: Yes Results Last Vital Signs Temp 36.7 C 06/17/24 00:08 Pulse 125 H 06/17/24 05:01 Resp 15 06/17/24 05:01 BP 109/49 L 06/17/24 05:01 Pulse Ox 96 06/17/24 05:01 Labs 06/17/24 00:35 06/17/24 00:35 Labs: Laboratory Results - last 24 hr 06/17/24 06/17/24 06/17/24 00:35 00:35 00:43 WBC 9.52 RBC 4.29 L Hgb 11.5 L Hct 37.1 L MCV 87 MCH 26.8 L MCHC 31.0 L RDW 21.2 H Plt Count 273 MPV 8.9 Immature Gran % 0.5 Neutrophils % 80.3 Lymphocytes % 12.0 Monocytes % 5.8 Eosinophils % 0.2 Basophils % 1.2 Nucleated RBC % 0.0 Absolute Neutrophils 7.65 H Absolute Lymphocytes 1.14 L Absolute Monocytes 0.55 Absolute Eosinophils 0.02 Absolute Basophils 0.11 RBC Morphology See Below Anisocytosis 1+ PT Cancelled Cancelled INR Cancelled Cancelled APTT Cancelled Cancelled VBG Lactate 4.0 H* Sodium 140 Potassium 5.6 H Chloride 98 Carbon Dioxide 18.1 L Anion Gap 23.9 H BUN 66 H Creatinine 2.7 H Est GFR (CKD-EPI 2020) 23.39 Glucose 136 H Calcium 8.9 Magnesium 1.4 L Total Bilirubin 1.14 H AST 32 ALT 23 Alkaline Phosphatase 65 Troponin I 28 Cancelled Total Protein 7.2 Albumin 3.8 Ethyl Alcohol < 3.0 ABO/Rh Antibody Screen 06/17/24 06/17/24 06/17/24 01:27 02:32 02:55 WBC RBC Hgb Hct MCV MCH MCHC RDW Plt Count MPV Immature Gran % Neutrophils % Lymphocytes % Monocytes % Eosinophils % Basophils % Nucleated RBC % Absolute Neutrophils Absolute Lymphocytes Absolute Monocytes Absolute Eosinophils Absolute Basophils RBC Morphology Anisocytosis PT 10.3 INR 1.0 APTT 28.9 VBG Lactate Sodium Potassium Chloride Carbon Dioxide Anion Gap BUN Creatinine Est GFR (CKD-EPI 2020) Glucose Calcium Magnesium Total Bilirubin AST ALT Alkaline Phosphatase Troponin I Cancelled 26 Total Protein Albumin Ethyl Alcohol ABO/Rh O Positive Antibody Screen NEGATIVE 06/17/24 04:06 WBC RBC Hgb Hct MCV MCH MCHC RDW Plt Count MPV Immature Gran % Neutrophils % Lymphocytes % Monocytes % Eosinophils % Basophils % Nucleated RBC % Absolute Neutrophils Absolute Lymphocytes Absolute Monocytes Absolute Eosinophils Absolute Basophils RBC Morphology Anisocytosis PT INR APTT VBG Lactate Sodium Potassium Chloride Carbon Dioxide Anion Gap BUN Creatinine Est GFR (CKD-EPI 2020) Glucose Calcium Magnesium Total Bilirubin AST ALT Alkaline Phosphatase Troponin I 25 Total Protein Albumin Ethyl Alcohol ABO/Rh Antibody Screen
[2024-06-17 06:07] LABS: MCH 26.9 pg (27.0-33.0); MCHC 30.7 % (32.0-36.0); MCV 87 fL (80-95); MPV 9.6 fL (8.0-11.0); Platelet Count 182 10^3/uL (130-400); RBC 3.09 10^6/uL (4.36-5.78); RDW-SD 68.6 fL; WBC 6.65 10^3/uL (4.4-10.8)
[2024-06-17 06:12] LABS: BUN 54 mg/dL (7-18); Chloride 107 mmol/L (98-107); Estimated GFR 33.53 (mL/min/1.73m2); Glucose 165 mg/dL (74-106); Sodium 145 mmol/L (136-145)
[2024-06-17 06:23] LABS: Calcium 6.3 mg/dL (8.5-10.1)
--- NOTE | 2024-06-17 06:39 | W.PM.HP.N ---
Date of service: 06/17/24 Time of Service: 06:39 Assessment and Plan Assessment and plan (1) Upper GI bleed: Status: Acute Assessment and plan: Upper GI bleed with significant blood loss (though some of drop in Hct may be dilutional), with stable BP at this point. Will maintain NPO, continue IVF, continue PPI and plan on EGD as soon as available. Will transfuse 2 units now and trend Hct. Alcohol: denies h/o w/d, and is now 3 days out w/o signs of such. Will place on CIWA with prn benzo regimen Hyperkalemia: resolved Hypomag: replenish: Hypocalcemia: unexplained at present, has received replenishmentt, will trend AF: rate control regimen on beta kassie. Will convert to IV program and titrate for rate <100 FULL CODE per prior History of Present Illness History of Present Illness Chief Complaint: UGI bleed Narrative: 79 male with multiple medical problems, including alcohol abuse, Stevo's esophagus, prior UGI bleed of unknown etiology, AF on no anticoagulants, and not on NSAIDs or ASA -- last drink several days ago. Presents with one day of repeated episodes of initially bloody vomitus, later coffee ground like. Denies abdominal pain. In ER findings of note for stable hemodynamics, large episode coffee ground emesis, but none for several hours as of this writing; Hct at baseline 37, with repeat 4 hours later 27; INR 1.0; CT showing mild gastric thickening, and multiple electrolyte abnormalities, including mild hyperkalemia at 5.6 (received insulin D50), Mg 1.4 , and Ca 6.3 (albumin 3.8, received 2 amp CaGluconate). For the bleeding he has been Typed and crossed and has received the following: Protonix, Pepcid, TXA, Octreotide, Reglan, Zofran and Zosyn. No beds were available for transfer, surgery was consulted. Plan is to hold in ER until OR available for EGD and then hold in PACU until beds available on floor. Review of Systems Narrative: per HPI PFSH All Active Problems (Updated 06/17/24 @ 06:55 by Crescencio Maradiaga MD) Upper GI bleed (Acute) Acute kidney injury (Acute) Acute hyperkalemia (Acute) Gastrointestinal hemorrhage with hematemesis (Acute) Delirium due to multiple etiologies (Acute) Anemia, chronic disease (Acute) CKD (chronic kidney disease) stage 3, GFR 30-59 ml/min (Chronic) Falls frequently (Acute) Blunt head trauma (Acute) Blunt trauma of multiple sites of trunk (Acute) Fall (Acute) Impaired gait and mobility (Acute ~03/2023) Hyperlipidemia (Chronic) Tobacco abuse disorder (Chronic) Cut down 1/2PPD Personal history of noncompliance with medical treatment and regimen (Chronic) Alcoholic liver disease (Chronic) Anemia (Chronic ~02/2022) S/P GI bleed CHF (congestive heart failure) (Chronic ~02/2023) ECHO 02/2022 LVEF 45-50% Depression (Chronic) Plans on getting connected to social work Tineo's esophagus (Chronic ~04/2019) ETOH; Upper endoscopy 03/2019 (see path report--no tineo's?, but 08/15/2019 surg note says +tineo's) Weakness (Acute) LE weakness; Home PT Urinary retention (Chronic) Dr. Ramos COPD (chronic obstructive pulmonary disease) (Chronic) Atrial fibrillation (Chronic) Paroxysmal per hospital records; not anticoagulated secondary to recurrent GI bleeds from chronic EtOH use Medical History Iron deficiency anemia due to chronic blood loss Hypomagnesemia Alcohol use disorder Acute upper gastrointestinal bleeding (~02/2022) Gastric ulcer Troponin level elevated Gout Colchicine prevention Sleeping difficulty Melatonin RX Palliative care patient [place]bert[place] Insomnia Radicular pain of right lower extremity GI bleed Tineo's esophagus Right knee pain UTI (urinary tract infection) Hematemesis Depression Renal insufficiency Smoking hx Surgical History H/O esophagogastroduodenoscopy (~04/2019) Repeat on 10/26/20 [facility] severe reflux esophagitis w/ non-bleeding esophageal ulcer. Multiplle inflammatory appearing nodules at [facility] Social History Smoking/Tobacco Use Status: Current every day Tobacco Type: cigarettes Years smoked: 50 Smoking risk assessment performed?: Yes Alcohol Intake: current Alcohol Intake frequency: other Alcohol type: hard liquor Drug use: Never Substance use type: does not use Details: Pt has not had alcohol since being at the [facility]. 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) What type of physical activity do you participate in: none Do you feel safe at home: Yes Do you feel safe in your relationship?: Yes Meds Allergies and Home Medications Allergies Allergy/AdvReac Type Severity Reaction Status Date / Time bupropion AdvReac Severe seizures Verified 06/17/24 00:23 Home Medications ?Medication ?Instructions ?Recorded ?Confirmed ?Type levalbuterol tartrate 45 1 - 2 puff inhalation Q4H #15 grams 04/18/23 04/10/24 Rx mcg/actuation aerosol inhaler magnesium chloride 64 mg 64 mg PO DAILY AM #90 tabs 04/18/23 04/10/24 Rx (magnesium chloride) tablet pantoprazole 40 mg tablet,delayed 40 mg PO DAILY AM #90 tabs 04/18/23 04/10/24 Rx release ibuprofen 600 mg tablet 600 mg PO BID PRN pain #12 tabs 06/19/23 04/10/24 Rx acetaminophen 325 mg capsule 650 mg (2 x 325 mg) PO Q6H PRN PRN 04/14/24 Rx #90 caps atorvastatin 40 mg tablet 40 mg PO HS #30 tabs 04/14/24 Rx ferrous sulfate 325 mg (65 mg 325 mg PO 0600,1800 #60 tabs 04/14/24 Rx iron) tablet melatonin 3 mg tablet 3 mg PO HS #30 tabs 04/14/24 Rx metoprolol succinate 50 mg 50 mg PO DAILY #60 tabs 04/14/24 Rx tablet,extended release 24 hr nicotine 21 mg/24 hr daily 21 mg transdermal DAILY PRN PRN 04/14/24 Rx transdermal patch #30 ea polyethylene glycol 3350 17 gram 17 g PO DAILY PRN PRN Constipation 04/14/24 Rx oral powder packet #30 ea tamsulosin 0.4 mg capsule 0.8 mg (2 x 0.4 mg) PO DAILY #60 04/14/24 Rx caps B-complex with vitamin C 1 tab PO DAILY 05/14/24 History cetirizine 5 mg tablet 5 mg PO DAILY PRN 05/14/24 History docusate sodium 100 mg capsule 100 mg PO BID #30 caps 05/14/24 Rx (Colace) magnesium oxide 500 mg PO BID 05/14/24 History mirtazapine 7.5 mg tablet 7.5 mg PO QHS 05/14/24 History multivitamin with iron 1 tab PO DAILY 05/14/24 History thiamine mononitrate (vit B1) 100 100 mg PO DAILY 05/14/24 History mg tablet amlodipine 5 mg tablet 5 mg PO DAILY 05/27/24 History Exam Narrative Exam Narrative: 109/49, 125, 36.7, 15, 96. HEENT anicteric, dry oral cavity; neck supple; lungs clear; heart irr/irr; abdomen +BS, soft and NT; extremities w/o edema; neuro Ox3, no tremor, moves all 4s Results Labs 06/17/24 04:08 06/17/24 06:26 Labs: Laboratory Results - last 24 hr 06/17/24 06/17/24 06/17/24 00:35 00:35 00:43 WBC 9.52 RBC 4.29 L Hgb 11.5 L Hct 37.1 L MCV 87 MCH 26.8 L MCHC 31.0 L RDW 21.2 H Plt Count 273 MPV 8.9 Immature Gran % 0.5 Neutrophils % 80.3 Lymphocytes % 12.0 Monocytes % 5.8 Eosinophils % 0.2 Basophils % 1.2 Nucleated RBC % 0.0 Absolute Neutrophils 7.65 H Absolute Lymphocytes 1.14 L Absolute Monocytes 0.55 Absolute Eosinophils 0.02 Absolute Basophils 0.11 RBC Morphology See Below Anisocytosis 1+ PT Cancelled Cancelled INR Cancelled Cancelled APTT Cancelled Cancelled VBG Lactate 4.0 H* Sodium 140 Potassium 5.6 H Chloride 98 Carbon Dioxide 18.1 L Anion Gap 23.9 H BUN 66 H Creatinine 2.7 H Est GFR (CKD-EPI 2020) 23.39 Glucose 136 H Calcium 8.9 Magnesium 1.4 L Total Bilirubin 1.14 H AST 32 ALT 23 Alkaline Phosphatase 65 Troponin I 28 Cancelled Total Protein 7.2 Albumin 3.8 Ethyl Alcohol < 3.0 ABO/Rh Antibody Screen 06/17/24 06/17/24 06/17/24 01:27 02:32 02:55 WBC RBC Hgb Hct MCV MCH MCHC RDW Plt Count MPV Immature Gran % Neutrophils % Lymphocytes % Monocytes % Eosinophils % Basophils % Nucleated RBC % Absolute Neutrophils Absolute Lymphocytes Absolute Monocytes Absolute Eosinophils Absolute Basophils RBC Morphology Anisocytosis PT 10.3 INR 1.0 APTT 28.9 VBG Lactate Sodium Potassium Chloride Carbon Dioxide Anion Gap BUN Creatinine Est GFR (CKD-EPI 2020) Glucose Calcium Magnesium Total Bilirubin AST ALT Alkaline Phosphatase Troponin I Cancelled 26 Total Protein Albumin Ethyl Alcohol ABO/Rh O Positive Antibody Screen NEGATIVE 06/17/24 06/17/24 04:06 04:08 WBC RBC Hgb Hct MCV MCH MCHC RDW Plt Count MPV Immature Gran % Neutrophils % Lymphocytes % Monocytes % Eosinophils % Basophils % Nucleated RBC % Absolute Neutrophils Absolute Lymphocytes Absolute Monocytes Absolute Eosinophils Absolute Basophils RBC Morphology Anisocytosis PT INR APTT VBG Lactate Sodium 145 Potassium 4.0 D Chloride 107 Carbon Dioxide 18.0 L Anion Gap 20.0 H BUN 54 H Creatinine 2.0 H Est GFR (CKD-EPI 2020) 33.53 Glucose 165 H Calcium 6.3 L* D Magnesium Total Bilirubin AST ALT Alkaline Phosphatase Troponin I 25 Total Protein Albumin Ethyl Alcohol ABO/Rh Antibody Screen Last Vital Signs Temp 36.7 C 06/17/24 00:08 Pulse 125 H 06/17/24 05:01 Resp 15 06/17/24 05:01 BP 109/49 L 06/17/24 05:01 Pulse Ox 96 06/17/24 05:01 PAWSS Have you Been Recently Intoxicated or Drunk Within the Last 30 days?: No Have you Ever Experienced Previous Episodes of Alcohol Withdrawal?: No Have you ever Experienced Withdrawal Seizures?: No Have you ever Experienced Delirium Tremens(DT)s?: No Have you ever undergone Alcohol Rehabilitation Treatment (i.e, inpt ot outpatient treatment programs)?: Yes Have you ever Experienced Blackouts?: No Have you ever Combined Alcohol with other Downers within the last 90 days?: No Have you ever Combined Alcohol with any other Substance of Abuse during the last 90 days?: No Positive Blood Alcohol level on Presentation? [PCS.BAL]: No Evidence of Increased Autonomic Activity (i.e. HR>120, tremor, sweating, agitation, nausea)?: No Result: 1 Time Spent Time spent with Patient: 55-74 minutes Time was spent: preparing to see the patient(eg.review tests), obtaining and/or reviewing separately otained hiistory, ordering medications,tests, procedures, referring, communicating with other health director medicare sales and indepentently interpreting results
[2024-06-17 06:46] LABS: HGB 8.3 g/dL (13.5-17.5)
[2024-06-17 06:47] LABS: RDW 21.2 % (11.8-14.1)
[2024-06-17 06:49] LABS: GGT 28 U/L (15-85)
[2024-06-17 06:50] LABS: Prothrombin Time 9.9 sec (9.1-11.1)
[2024-06-17 06:53] LABS: ALT 17 U/L (16-63); AST 27 U/L (15-37); Alkaline Phosphatase 50 U/L (46-116); Anion Gap 20.3 mmol/L (3-11); BUN 62 mg/dL (7-18); Bilirubin, Total 0.96 mg/dL (0.2-1.0); CO2 17.7 mmol/L (21.0-32.0); CREATININE 2.5 mg/dL (0.70-1.30); Chloride 103 mmol/L (98-107); Estimated GFR 25.65 (mL/min/1.73m2); Glucose 244 mg/dL (74-106); Potassium 5.3 mmol/L (3.5-5.1); Sodium 141 mmol/L (136-145); Total Protein 5.7 g/dL (6.4-8.2)
[2024-06-17 07:14] LABS: Ferritin 94 ng/mL (26-388)
--- NOTE | 2024-06-17 07:21 | W.PCEDHO ---
Registration Status: Primary Language: Preferred Language: ED Information & Data Chief Complaint GI Bleed 06/17/24 01:33 Triage Note started coughing up blood 06/17/24 00:08 about 6 hours ago, describes as dark red color. weak, states he can hardly walk. hx of esophageal tear a few years back. denies thinners Medical / Surgical History (Last Reviewed 06/17/24 @ 06:51 by Crescencio Maradiaga MD) Acute upper gastrointestinal bleeding (~02/2022) Alcohol use disorder Cooper's esophagus Depression Gastric ulcer GI bleed Gout Hematemesis Hypomagnesemia Insomnia Iron deficiency anemia due to chronic blood loss Palliative care patient Radicular pain of right lower extremity Renal insufficiency Right knee pain Sleeping difficulty Smoking hx Troponin level elevated UTI (urinary tract infection) (Last Reviewed 06/17/24 @ 06:51 by Crescencio Maradiaga MD) H/O esophagogastroduodenoscopy (~04/2019) Most Recent Vital Signs Temperature 36.7 C 06/17/24 00:08 Temperature Source Temporal Artery Scan 06/17/24 00:08 Pulse 125 H 06/17/24 05:01 Pulse 123 H 06/17/24 05:01 Respiratory Rate 15 06/17/24 05:01 Respiratory Effort Normal, Non-Labored 06/17/24 00:19 Blood Pressure 109/49 L 06/17/24 05:01 Blood Pressure Mean 69 06/17/24 05:01 Blood Pressure Position Sitting 06/17/24 00:08 Pulse Oximetry 96 06/17/24 05:01 Oxygen Delivery Method Room Air 06/17/24 00:08 Oxygen Flow Rate 0 06/17/24 00:08 Pain Level 0 06/17/24 00:20 Allergies bupropion Adverse Reaction (Severe, Verified 06/17/24 00:23) seizures 09/02/20- pt reports he fell, Nobody ever told me I had seizures Precautions Isolation Standard precaution 06/17/24 00:19 Active Medications Generic Name Dose Route Start Last Admin Trade Name Freq PRN Reason Stop Dose Admin Pantoprazole Sodium 80 mg/ 100 mls @ 10 mls/hr 06/17/24 01:00 06/17/24 02:24 Sodium Chloride IV 10 mls/hr INFUSION SHANICE Administration Octreotide Acetate 250 mcg/ 250 mls @ 50 mls/hr 06/17/24 01:00 06/17/24 03:08 Sodium Chloride IV 50 mcg/hr INFUSION SHANICE 50 mls/hr Administration Protocol 50 MCG/HR Tranexamic Acid/Sodium Chloride 1,000 mg in 100 mls @ 12.5 mls/hr 06/17/24 03:45 06/17/24 05:01 IV 12.5 mls/hr INFUSION SHANICE Administration IV IV Catheter Type [Right Peripheral IV Antecubital] IV Catheter Type [Left Peripheral IV Antecubital] IV Catheter Type [Right Hand] Peripheral IV IV Catheter Type [Right Peripheral IV Forearm] IV Catheter Gauge [Right 18 Antecubital] IV Catheter Gauge [Left 18 Antecubital] IV Catheter Gauge [Right Hand] 20 IV Catheter Gauge [Right 20 Forearm] Diet Orders Category Date Time Status Nothing Per Oral [DIET] Nutrition 06/17/24 Breakfast Active Diagnostics 06/17/24 06/17/24 06/17/24 Range/Units 06:26 04:08 04:06 WBC 6.65 (4.4-10.8) 10^3/uL RBC 3.09 L (4.36-5.78) 10^6/uL Hgb 8.3 L D (13.5-17.5) g/dL Hct 27.0 L (40.0-50.0) % MCV 87 (80-95) fL MCH 26.9 L (27.0-33.0) pg MCHC 30.7 L (32.0-36.0) % RDW 21.2 H (11.8-14.1) % Plt Count 182 (130-400) 10^3/uL MPV 9.6 (8.0-11.0) fL Immature Gran % % Neutrophils % % Lymphocytes % % Monocytes % % Eosinophils % % Basophils % % Nucleated RBC % (0.0-0.3) % Absolute Neutrophils (1.2-6.7) 10^3/uL Absolute Lymphocytes (1.2-3.4) 10^3/uL Absolute Monocytes (0.1-0.8) 10^3/uL Absolute Eosinophils (0.0-0.7) 10^3/uL Absolute Basophils (0.0-0.2) 10^3/uL RBC Morphology Anisocytosis PT Pending INR Pending APTT VBG Lactate (0.6-1.4) mmol/L Sodium 141 145 (136-145) mmol/L Potassium 5.3 H D 4.0 D (3.5-5.1) mmol/L Chloride 103 107 (98-107) mmol/L Carbon Dioxide 17.7 L 18.0 L (21.0-32.0) mmol/L Anion Gap 20.3 H 20.0 H (3-11) mmol/L BUN 62 H 54 H (7-18) mg/dL Creatinine 2.5 H 2.0 H (0.70-1.30) mg/dL Est GFR (CKD-EPI 2020) 25.65 33.53 (mL/min/1.73m2) Glucose 244 H 165 H (74-106) mg/dL Calcium 8.0 L 6.3 L* D (8.5-10.1) mg/dL Magnesium (1.8-2.4) mg/dL Ferritin 94 (26-388) ng/mL Total Bilirubin 0.96 (0.2-1.0) mg/dL GGT 28 (15-85) U/L AST 27 (15-37) U/L ALT 17 (16-63) U/L Alkaline Phosphatase 50 (46-116) U/L Troponin I 25 (<or=76) ng/L C-Reactive Protein 0.90 H (<or=0.5) mg/dL Total Protein 5.7 L (6.4-8.2) g/dL Albumin 3.0 L (3.4-5.0) g/dL Ethyl Alcohol (<10) mg/dL ABO/Rh Blood Type Recheck Pending Antibody Screen 06/17/24 06/17/24 06/17/24 Range/Units 02:55 02:32 01:27 WBC (4.4-10.8) 10^3/uL RBC (4.36-5.78) 10^6/uL Hgb (13.5-17.5) g/dL Hct (40.0-50.0) % MCV (80-95) fL MCH (27.0-33.0) pg MCHC (32.0-36.0) % RDW (11.8-14.1) % Plt Count (130-400) 10^3/uL MPV (8.0-11.0) fL Immature Gran % % Neutrophils % % Lymphocytes % % Monocytes % % Eosinophils % % Basophils % % Nucleated RBC % (0.0-0.3) % Absolute Neutrophils (1.2-6.7) 10^3/uL Absolute Lymphocytes (1.2-3.4) 10^3/uL Absolute Monocytes (0.1-0.8) 10^3/uL Absolute Eosinophils (0.0-0.7) 10^3/uL Absolute Basophils (0.0-0.2) 10^3/uL RBC Morphology Anisocytosis PT 10.3 INR 1.0 APTT 28.9 VBG Lactate (0.6-1.4) mmol/L Sodium (136-145) mmol/L Potassium (3.5-5.1) mmol/L Chloride (98-107) mmol/L Carbon Dioxide (21.0-32.0) mmol/L Anion Gap (3-11) mmol/L BUN (7-18) mg/dL Creatinine (0.70-1.30) mg/dL Est GFR (CKD-EPI 2020) (mL/min/1.73m2) Glucose (74-106) mg/dL Calcium (8.5-10.1) mg/dL Magnesium (1.8-2.4) mg/dL Ferritin (26-388) ng/mL Total Bilirubin (0.2-1.0) mg/dL GGT (15-85) U/L AST (15-37) U/L ALT (16-63) U/L Alkaline Phosphatase (46-116) U/L Troponin I 26 Cancelled (<or=76) ng/L C-Reactive Protein (<or=0.5) mg/dL Total Protein (6.4-8.2) g/dL Albumin (3.4-5.0) g/dL Ethyl Alcohol (<10) mg/dL ABO/Rh O Positive Blood Type Recheck Antibody Screen NEGATIVE 06/17/24 06/17/24 06/17/24 Range/Units 00:43 00:35 00:35 WBC 9.52 (4.4-10.8) 10^3/uL RBC 4.29 L (4.36-5.78) 10^6/uL Hgb 11.5 L (13.5-17.5) g/dL Hct 37.1 L (40.0-50.0) % MCV 87 (80-95) fL MCH 26.8 L (27.0-33.0) pg MCHC 31.0 L (32.0-36.0) % RDW 21.2 H (11.8-14.1) % Plt Count 273 (130-400) 10^3/uL MPV 8.9 (8.0-11.0) fL Immature Gran % 0.5 % Neutrophils % 80.3 % Lymphocytes % 12.0 % Monocytes % 5.8 % Eosinophils % 0.2 % Basophils % 1.2 % Nucleated RBC % 0.0 (0.0-0.3) % Absolute Neutrophils 7.65 H (1.2-6.7) 10^3/uL Absolute Lymphocytes 1.14 L (1.2-3.4) 10^3/uL Absolute Monocytes 0.55 (0.1-0.8) 10^3/uL Absolute Eosinophils 0.02 (0.0-0.7) 10^3/uL Absolute Basophils 0.11 (0.0-0.2) 10^3/uL RBC Morphology See Below Anisocytosis 1+ PT Cancelled Cancelled INR Cancelled Cancelled APTT Cancelled Cancelled VBG Lactate 4.0 H* (0.6-1.4) mmol/L Sodium 140 (136-145) mmol/L Potassium 5.6 H (3.5-5.1) mmol/L Chloride 98 (98-107) mmol/L Carbon Dioxide 18.1 L (21.0-32.0) mmol/L Anion Gap 23.9 H (3-11) mmol/L BUN 66 H (7-18) mg/dL Creatinine 2.7 H (0.70-1.30) mg/dL Est GFR (CKD-EPI 2020) 23.39 (mL/min/1.73m2) Glucose 136 H (74-106) mg/dL Calcium 8.9 (8.5-10.1) mg/dL Magnesium 1.4 L (1.8-2.4) mg/dL Ferritin (26-388) ng/mL Total Bilirubin 1.14 H (0.2-1.0) mg/dL GGT (15-85) U/L AST 32 (15-37) U/L ALT 23 (16-63) U/L Alkaline Phosphatase 65 (46-116) U/L Troponin I Cancelled 28 (<or=76) ng/L C-Reactive Protein (<or=0.5) mg/dL Total Protein 7.2 (6.4-8.2) g/dL Albumin 3.8 (3.4-5.0) g/dL Ethyl Alcohol < 3.0 (<10) mg/dL ABO/Rh Blood Type Recheck Antibody Screen Intake and Output - 24 Hour Total 06/17/24 00:05 thru 06/17/24 05:01 Intake Total 1502 Balance 1502 Weight 70.307 kg Intake: IV 1502 Other: Emesis Description Retching Blood Tinged Mucous Falls Risk Assessment History of Falls Previous History 06/17/24 00:20 Contributing Factors Impairments 06/17/24 00:20 Ambulatory Aids Uses ambulatory device + 06/17/24 00:20 Tubes/Lines With any additional score 06/17/24 00:20 Gait Evaluation W/any additional score 06/17/24 00:20 Cognition No cognitive impairment 06/17/24 00:20 Fall Total Score 88 06/17/24 00:20 Level of Risk Maximum Risk 06/17/24 00:20 Problems (Last Reviewed 06/17/24 @ 06:51 by Crescencio Maradiaga MD) Upper GI bleed (Acute) Acute kidney injury (Acute) Acute hyperkalemia (Acute) Gastrointestinal hemorrhage with hematemesis (Acute) v v v v v v v v v Sending and/or Receiving Nurses: Please use comment section below to note any information pertinent to the patient hand-off not included above. Information / Comments: Report received from: Angie Escobedo RN @ [address] 06/17/24
--- NOTE | 2024-06-17 07:28 | W.SURGCON ---
Documented by User: MARISELA Cm 06/17/24 07:40 Date of service: 06/17/24 Time of Service: 07:28 Assessment and Plan Assessment and plan (1) Upper GI bleed: Status: Acute Assessment and plan: Patient with Upper GI bleed of unknown etiology, high likelihood of varices. -Discussed Upper endoscopy procedure and the need to be NPO after midnight the night prior. Discussed possible complications of the procedure to include bleeding, pain, perforation, missed small lesion/polyp/ulcers, sore throat, aspiration and adverse reaction to the medications or sedation. Questions were answered to patient?s satisfaction. No guarantees were implied or given. Anesthesia: general (without airway) Previous surgical intolerances: None Previous surgical complications: None Pulmonary risk factors: COPD, CHF PFT's: None Planned procedure: Yes Sleep apnea risks: No Can climb one flight of stairs (12-13 steps) in less than 30 seconds without stopping and without symptoms: Yes The surgery proposed for this patient is: Low risk Active cardiac conditions: None ECHO: 2023- LV normal in size and function. RV normal in size and function. No significant valvular disease. Stress Test: None Active risk factors: None ASA (acetylsalicylic acid):No Beta blockers: yes Anti-coagulation: N/A P//EGD under sedation (2) COPD (chronic obstructive pulmonary disease): Status: Chronic Qualifiers: COPD type: COPD with acute exacerbation Qualified Code(s): J44.1 - Chronic obstructive pulmonary disease with (acute) exacerbation (3) Hiatal hernia: Status: Chronic (4) Fatty liver disease, nonalcoholic: Status: Acute (5) Coronary artery calcification seen on CAT scan: Status: Acute (6) Iliac artery stenosis, bilateral: Status: Acute (7) Atherosclerosis of abdominal aorta: Status: Acute History of Present Illness Narrative: 79 y/o male with a history of ETOH abuse, previous upper GI bleed (etiology unknown), tineo's esophagus, COPD, CKD, HLD, CHF and atrial fibrillation presented to the ER with complaints of bloody emesis. He states that he also has a cough, which at times brought up bloody phlegm. H/H of 8.3/27.0 following at this time. He is being transfused 2 units. Of note the patient reports that he had an Upper GI bleed previously, however he does not recall having an upper endoscopy at that time. He denies noting any changes in his bowel habits and describes having a small, soft BM early this morning. Denies chest pain, palpitations, dyspnea or dyspnea with exertion. Denies personal or family history of adverse reactions to anesthesia. Denies any history of stroke, seizures, bleeding or clotting disorders. Denies having any implanted metal. Denies any history of chemotherapy or radiation. PFSH All Active Problems (Updated 06/17/24 @ 09:49 by Madeline Mejia DO) Atherosclerosis of abdominal aorta (Acute) Iliac artery stenosis, bilateral (Acute) Coronary artery calcification seen on CAT scan (Acute) Fatty liver disease, nonalcoholic (Acute) Hiatal hernia (Chronic) Upper GI bleed (Acute) Acute kidney injury (Acute) Acute hyperkalemia (Acute) Gastrointestinal hemorrhage with hematemesis (Acute) Delirium due to multiple etiologies (Acute) Anemia, chronic disease (Acute) CKD (chronic kidney disease) stage 3, GFR 30-59 ml/min (Chronic) Falls frequently (Acute) Blunt head trauma (Acute) Blunt trauma of multiple sites of trunk (Acute) Fall (Acute) Impaired gait and mobility (Acute ~03/2023) Hyperlipidemia (Chronic) Tobacco abuse disorder (Chronic) Cut down 1/2PPD Personal history of noncompliance with medical treatment and regimen (Chronic) Alcoholic liver disease (Chronic) Anemia (Chronic ~02/2022) S/P GI bleed CHF (congestive heart failure) (Chronic ~02/2023) ECHO 02/2022 LVEF 45-50% Depression (Chronic) Plans on getting connected to social work Tineo's esophagus (Chronic ~04/2019) ETOH; Upper endoscopy 03/2019 (see path report--no tineo's?, but 08/15/2019 surg note says +tineo's) Weakness (Acute) LE weakness; Home PT Urinary retention (Chronic) Dr. Ramos COPD (chronic obstructive pulmonary disease) (Chronic) Atrial fibrillation (Chronic) Paroxysmal per hospital records; not anticoagulated secondary to recurrent GI bleeds from chronic EtOH use Medical History Iron deficiency anemia due to chronic blood loss Hypomagnesemia Alcohol use disorder Acute upper gastrointestinal bleeding (~02/2022) Gastric ulcer Troponin level elevated Gout Colchicine prevention Sleeping difficulty Melatonin RX Palliative care patient [place] Insomnia Radicular pain of right lower extremity GI bleed Tineo's esophagus Right knee pain UTI (urinary tract infection) Hematemesis Depression Renal insufficiency Smoking hx Surgical History H/O esophagogastroduodenoscopy (~04/2019) Repeat on 10/26/20 [facility] [place] severe reflux esophagitis w/ non-bleeding esophageal ulcer. Multiplle inflammatory appearing nodules at [facility] Social History (Updated 06/17/24 @ 07:39 by MARISELA Cm) Smoking/Tobacco Use Status: Current every day Tobacco Type: cigarettes Years smoked: 50 Smoking risk assessment performed?: Yes Alcohol Intake: current Alcohol Intake frequency: 3 or more drinks per day Alcohol type: hard liquor Drug use: Never Substance use type: does not use Details: Pt has not had alcohol since being at the [facility]. 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) What type of physical activity do you participate in: none Do you feel safe at home: Yes Do you feel safe in your relationship?: Yes Exam Const General: cooperative, healthy appearing and no acute distress Orientation: alert and oriented x3 HENMT Head: normal to inspection, no abrasions and no raccoon eyes Ears: hearing grossly normal bilaterally General nose exam: external nose normal and no nasal discharge noted Resp Effort & Inspection: normal respiratory effort, audible wheezes (inspiratory ) and no cough Auscultation: clear to auscultation bilaterally Cardio Jugular venous pressure: no JVD Rate: regular rate Rhythm: regular rhythm Heart Sounds: S1 normal, S2 normal, no click and no murmurs GI Inspection: normal to inspection and non-distended Palpation: soft, no guarding and nontender Auscultation: normal bowel sounds Skin General skin exam: no rashes or lesions noted Neuro General: patient alert, patient oriented x3 and gait normal Cognition: normal cognition Speech: speech normal Results Last Vital Signs Temp 36.7 C 06/17/24 00:08 Pulse 88 06/17/24 07:01 Resp 13 06/17/24 07:20 BP 125/87 06/17/24 07:01 Pulse Ox 97 06/17/24 07:20 Labs 06/17/24 04:08 06/17/24 06:26 Labs: Laboratory Results - last 24 hr 06/17/24 06/17/24 06/17/24 00:35 00:35 00:43 WBC 9.52 RBC 4.29 L Hgb 11.5 L Hct 37.1 L MCV 87 MCH 26.8 L MCHC 31.0 L RDW 21.2 H Plt Count 273 MPV 8.9 Immature Gran % 0.5 Neutrophils % 80.3 Lymphocytes % 12.0 Monocytes % 5.8 Eosinophils % 0.2 Basophils % 1.2 Nucleated RBC % 0.0 Absolute Neutrophils 7.65 H Absolute Lymphocytes 1.14 L Absolute Monocytes 0.55 Absolute Eosinophils 0.02 Absolute Basophils 0.11 RBC Morphology See Below Anisocytosis 1+ PT Cancelled Cancelled INR Cancelled Cancelled APTT Cancelled Cancelled VBG Lactate 4.0 H* Sodium 140 Potassium 5.6 H Chloride 98 Carbon Dioxide 18.1 L Anion Gap 23.9 H BUN 66 H Creatinine 2.7 H Est GFR (CKD-EPI 2020) 23.39 Glucose 136 H Calcium 8.9 Magnesium 1.4 L Ferritin Total Bilirubin 1.14 H GGT AST 32 ALT 23 Alkaline Phosphatase 65 Troponin I 28 Cancelled C-Reactive Protein Total Protein 7.2 Albumin 3.8 Ethyl Alcohol < 3.0 ABO/Rh Antibody Screen 06/17/24 06/17/24 06/17/24 01:27 02:32 02:55 WBC RBC Hgb Hct MCV MCH MCHC RDW Plt Count MPV Immature Gran % Neutrophils % Lymphocytes % Monocytes % Eosinophils % Basophils % Nucleated RBC % Absolute Neutrophils Absolute Lymphocytes Absolute Monocytes Absolute Eosinophils Absolute Basophils RBC Morphology Anisocytosis PT 10.3 INR 1.0 APTT 28.9 VBG Lactate Sodium Potassium Chloride Carbon Dioxide Anion Gap BUN Creatinine Est GFR (CKD-EPI 2020) Glucose Calcium Magnesium Ferritin Total Bilirubin GGT AST ALT Alkaline Phosphatase Troponin I Cancelled 26 C-Reactive Protein Total Protein Albumin Ethyl Alcohol ABO/Rh O Positive Antibody Screen NEGATIVE 06/17/24 06/17/24 06/17/24 04:06 04:08 06:26 WBC 6.65 RBC 3.09 L Hgb 8.3 L D Hct 27.0 L MCV 87 MCH 26.9 L MCHC 30.7 L RDW 21.2 H Plt Count 182 MPV 9.6 Immature Gran % Neutrophils % Lymphocytes % Monocytes % Eosinophils % Basophils % Nucleated RBC % Absolute Neutrophils Absolute Lymphocytes Absolute Monocytes Absolute Eosinophils Absolute Basophils RBC Morphology Anisocytosis PT INR APTT VBG Lactate Sodium 145 141 Potassium 4.0 D 5.3 H D Chloride 107 103 Carbon Dioxide 18.0 L 17.7 L Anion Gap 20.0 H 20.3 H BUN 54 H 62 H Creatinine 2.0 H 2.5 H Est GFR (CKD-EPI 2020) 33.53 25.65 Glucose 165 H 244 H Calcium 6.3 L* D 8.0 L Magnesium Ferritin 94 Total Bilirubin 0.96 GGT 28 AST 27 ALT 17 Alkaline Phosphatase 50 Troponin I 25 C-Reactive Protein 0.90 H Total Protein 5.7 L Albumin 3.0 L Ethyl Alcohol ABO/Rh Antibody Screen Documented by User: Madeline Mejia, 06/17/24 09:49 Assessment and Plan Assessment and plan (1) Upper GI bleed: Status: Acute Assessment and plan: Patient with Upper GI bleed of unknown etiology, high likelihood of varices. -Discussed Upper endoscopy procedure and the need to be NPO after midnight the night prior. Discussed possible complications of the procedure to include bleeding, pain, perforation, missed small lesion/polyp/ulcers, sore throat, aspiration and adverse reaction to the medications or sedation. Questions were answered to patient?s satisfaction. No guarantees were implied or given. Anesthesia: general (without airway) Previous surgical intolerances: None Previous surgical complications: None Pulmonary risk factors: COPD, CHF PFT's: None Planned procedure: Yes Sleep apnea risks: No Can climb one flight of stairs (12-13 steps) in less than 30 seconds without stopping and without symptoms: Yes The surgery proposed for this patient is: Low risk Active cardiac conditions: None ECHO: 2023- LV normal in size and function. RV normal in size and function. No significant valvular disease. Stress Test: None Active risk factors: None ASA (acetylsalicylic acid):No Beta blockers: yes- hold protonic drip received txa octreotide tranfused [address] in [facility] Anti-coagulation: N/A P//EGD under sedation hx of tineo's and hiatal hernia Informed consent is obtained for the procedural (explained in simple layman's terms that the pt. and/or family could understand) explaining risks vs benefits and alternatives to the procedure and consequences if we do not do the procedure and need/rational for the procedure. Risks include but are not limited to: bleeding, infection, perforation of esophagus, stomach, colon, small intestines, bronchus or trachea, or PTX. This would necessitate emergency surgery to repair the damage w/ possible ostomy; and other associated complications w/ the required surgery. Also complications of anesthesia including aspiration, KS/CVA/. (2) COPD (chronic obstructive pulmonary disease): Status: Chronic Qualifiers: COPD type: COPD with acute exacerbation Qualified Code(s): J44.1 - Chronic obstructive pulmonary disease with (acute) exacerbation (3) Hiatal hernia: Status: Chronic (4) Fatty liver disease, nonalcoholic: Status: Acute (5) Coronary artery calcification seen on CAT scan: Status: Acute (6) Iliac artery stenosis, bilateral: Status: Acute (7) Atherosclerosis of abdominal aorta: Status: Acute PFSH All Active Problems (Updated 06/17/24 @ 09:49 by Madeline Mejia, ) Atherosclerosis of abdominal aorta (Acute) Iliac artery stenosis, bilateral (Acute) Coronary artery calcification seen on CAT scan (Acute) Fatty liver disease, nonalcoholic (Acute) Hiatal hernia (Chronic) Upper GI bleed (Acute) Acute kidney injury (Acute) Acute hyperkalemia (Acute) Gastrointestinal hemorrhage with hematemesis (Acute) Delirium due to multiple etiologies (Acute) Anemia, chronic disease (Acute) CKD (chronic kidney disease) stage 3, GFR 30-59 ml/min (Chronic) Falls frequently (Acute) Blunt head trauma (Acute) Blunt trauma of multiple sites of trunk (Acute) Fall (Acute) Impaired gait and mobility (Acute ~03/2023) Hyperlipidemia (Chronic) Tobacco abuse disorder (Chronic) Cut down 1/2PPD Personal history of noncompliance with medical treatment and regimen (Chronic) Alcoholic liver disease (Chronic) Anemia (Chronic ~02/2022) S/P GI bleed CHF (congestive heart failure) (Chronic ~02/2023) ECHO 02/2022 LVEF 45-50% Depression (Chronic) Plans on getting connected to social work Tineo's esophagus (Chronic ~04/2019) ETOH; Upper endoscopy 03/2019 (see path report--no tineo's?, but 08/15/2019 surg note says +tineo's) Weakness (Acute) LE weakness; Home PT Urinary retention (Chronic) Dr. Ramos COPD (chronic obstructive pulmonary disease) (Chronic) Atrial fibrillation (Chronic) Paroxysmal per hospital records; not anticoagulated secondary to recurrent GI bleeds from chronic EtOH use Medical History Iron deficiency anemia due to chronic blood loss Hypomagnesemia Alcohol use disorder Acute upper gastrointestinal bleeding (~02/2022) Gastric ulcer Troponin level elevated Gout Colchicine prevention Sleeping difficulty Melatonin RX Palliative care patient [place] Insomnia Radicular pain of right lower extremity GI bleed Tineo's esophagus Right knee pain UTI (urinary tract infection) Hematemesis Depression Renal insufficiency Smoking hx Surgical History H/O esophagogastroduodenoscopy (~04/2019) Repeat on 10/26/20 [facility] [place] severe reflux esophagitis w/ non-bleeding esophageal ulcer. Multiplle inflammatory appearing nodules at [facility] Social History (Updated 06/17/24 @ 07:39 by MARISELA Cm) Smoking/Tobacco Use Status: Current every day Tobacco Type: cigarettes Years smoked: 50 Smoking risk assessment performed?: Yes Alcohol Intake: current Alcohol Intake frequency: 3 or more drinks per day Alcohol type: hard liquor Drug use: Never Substance use type: does not use Details: Pt has not had alcohol since being at the [facility]. 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
[2024-06-17] MEDS: Metoprolol 5 MG/5 ML VIAL IVP ×3 (08:38→20:35)
[2024-06-17] MEDS: Lactated Ringers 1,000 ML 150 ML IV (08:43)
[2024-06-17] MEDS: MAGNESIUM SULFATE 2 GM/50 ML BAG IVINF (09:25)
--- NOTE | 2024-06-17 10:17 | NUR.NOTE ---
Nursing Note: Baseline lung sounds assessed prior to starting blood transfusion. Rhonchi noted throughout LT lobe during inspiration and expiration. Rhonchi noted in RT lower lobe; diminished LS RLL.
[2024-06-17] MEDS: MULTIVITAMIN 10 ML, THIAMINE 100 MG, FOLIC ACID 1 MG in DEXTROSE 5%-0.45% SALINE 1,000 ML 42 ML IV (10:22)
--- NOTE | 2024-06-17 10:37 | TELEP.MEDR_ITS ---
Date of service: 06/17/24 Time of Service: 10:37 Telepharmacy Home Med Rec Allergies Allergies: bupropion Adverse Reaction (Severe, Verified 06/17/24 00:23) seizures Interview Person Interviewed: Patient Quality Quality of Interview/Accuracy of Medication List: Poor Additional Notes Additional Notes: I called patient in ED, he does not know his home medications and was not interested in an interview. He reports he did not have any medications today due to vomiting. I used patient's PCP list from Desirae Everett at [facility] to update his med list. Recommended Changes Recommended Changes(reason for recommendation): None Attestation: The home medication list is now updated to the best of my knowledge and is ready to be reconciled by the provider. Please contact the TelePharmacy Medication Reconciliation Pharmacist at for any questions.
[2024-06-17 10:43] LABS: Calcium 8.2 mg/dL (8.5-10.1)
--- NOTE | 2024-06-17 11:35 | NUR.NOTE ---
Nursing Note: Pt refused PO Tylenol and PO Benadryl for pre-medication prior to blood product administration. Pt states he has never had a reaction to blood products in the past.
--- NOTE | 2024-06-17 12:10 | ANES.PREOP_ITS ---
General Info Date of Service Date Performed: 06/17/24 Height: 5 ft 5 in Weight: 70.307 kg Body Mass Index (BMI): 25.7 Surgical Procedure: Operation Date: 06/17/24 10:05 Proposed Procedure Side Surgeon p Gastroscopy Domenico Harris MD Meds Allergies and Home Medications Allergies Allergy/AdvReac Type Severity Reaction Status Date / Time bupropion AdvReac Severe seizures Verified 06/17/24 00:23 Home Medication ?Medication ?Instructions ?Recorded levalbuterol tartrate 45 1 - 2 puff inhalation Q4H #15 grams 04/18/23 mcg/actuation aerosol inhaler pantoprazole 40 mg tablet,delayed 40 mg PO DAILY AM #90 tabs 04/18/23 release ibuprofen 600 mg tablet 600 mg PO BID PRN pain #12 tabs 06/19/23 acetaminophen 325 mg capsule 650 mg (2 x 325 mg) PO Q6H PRN PRN 04/14/24 #90 caps atorvastatin 40 mg tablet 40 mg PO HS #30 tabs 04/14/24 ferrous sulfate 325 mg (65 mg 325 mg PO 0600,1800 #60 tabs 04/14/24 iron) tablet melatonin 3 mg tablet 3 mg PO HS #30 tabs 04/14/24 metoprolol succinate 50 mg 50 mg PO DAILY #60 tabs 04/14/24 tablet,extended release 24 hr nicotine 21 mg/24 hr daily 21 mg transdermal DAILY PRN PRN 04/14/24 transdermal patch #30 ea polyethylene glycol 3350 17 gram 17 g PO DAILY PRN PRN Constipation 04/14/24 oral powder packet #30 ea tamsulosin 0.4 mg capsule 0.8 mg (2 x 0.4 mg) PO DAILY #60 04/14/24 caps cetirizine 5 mg tablet 5 mg PO DAILY PRN 05/14/24 docusate sodium 100 mg capsule 100 mg PO BID #30 caps 05/14/24 (Colace) magnesium oxide 500 mg PO BID 05/14/24 mirtazapine 7.5 mg tablet 7.5 mg PO QHS 05/14/24 multivitamin with iron 1 tab PO DAILY 05/14/24 amlodipine 5 mg tablet 5 mg PO DAILY 05/27/24 magnesium gluconate 27 mg 27 mg PO DAILY 06/17/24 magnesium (500 mg) tablet (Mag-G) thiamine HCl (vitamin B1) 100 mg 100 mg PO DAILY 06/17/24 tablet vitamin B complex-vitamin C-folic 1 tab PO DAILY 06/17/24 acid 0.8 mg tablet (Lawanda-Elva) Current Visit Medications: Current Medications Generic Name Dose Route Start Last Admin Trade Name Freq PRN Reason Stop Dose Admin Acetaminophen 650 mg 06/17/24 08:00 Acetaminophen 325 Mg Tab PO 06/17/24 23:59 TODAY SHANICE Diphenhydramine HCl 25 mg 06/17/24 07:15 Diphenhydramine 25 Mg Cap PO 06/17/24 23:59 TODAY SHANICE Pantoprazole Sodium 80 mg/ 100 mls @ 10 mls/hr 06/17/24 01:00 06/17/24 10:31 Sodium Chloride IV 0 mls/hr INFUSION SHANICE Infusion Octreotide Acetate 250 mcg/ 250 mls @ 50 mls/hr 06/17/24 01:00 06/17/24 08:15 Sodium Chloride IV Infused INFUSION SHANICE Titration Protocol 50 MCG/HR Tranexamic Acid/Sodium Chloride 1,000 mg in 100 mls @ 12.5 mls/hr 06/17/24 03:45 06/17/24 05:01 IV 12.5 mls/hr INFUSION SHANICE Administration Multivitamins 10 ml/ Thiamine 1,011.2 mls @ 42 mls/hr 06/17/24 10:00 06/17/24 10:22 HCl 100 mg/ Folic Acid 1 mg/ IV 42 mls/hr Dextrose/Sodium Chloride DAILY@1000 SHANICE Administration Ringer's Solution 1,000 mls @ 150 mls/hr 06/17/24 07:30 06/17/24 11:50 IV 75 mls/hr INFUSION SHANICE Infusion IV Miscellaneous Supplies 1 each 06/17/24 06:00 Iv Access IV DIRECTED SHANICE Lorazepam 0 mg 06/17/24 05:57 Lorazepam 2 Mg/Ml Vial IVP DIRECTED PRN Lorazepam 0 mg 06/17/24 05:57 Lorazepam 1 Mg Tab PO/SL DIRECTED PRN Metoprolol Tartrate 5 mg 06/17/24 08:00 06/17/24 08:38 Metoprolol 5 Mg/5 Ml Vial IVP 5 mg Q6H SHANICE Administration Sodium Chloride 0 ml 06/17/24 05:57 Normal Saline Flush 10 Ml Syr IVP PRN PRN Sodium Chloride 0 ml 06/17/24 08:30 06/17/24 09:28 Normal Saline Flush 10 Ml Syr IVP Not Given BID SHANICE Sodium Chloride 0 ml 06/17/24 05:57 Normal Saline 10 Ml Vial IJ DIRECTED PRN PFSH Active Problems Active Problems: Problem Status Onset Code Atherosclerosis of abdominal aorta Acute I70.0 Iliac artery stenosis, bilateral Acute I77.1 Coronary artery calcification seen on CAT scan Acute I25.10 Fatty liver disease, nonalcoholic Acute K76.0 Hiatal hernia Chronic K44.9 Upper GI bleed Acute K92.2 Acute kidney injury Acute N17.9 Acute hyperkalemia Acute E87.5 Gastrointestinal hemorrhage with hematemesis Acute K92.0 Delirium due to multiple etiologies Acute F05 Anemia, chronic disease Acute D63.8 CKD (chronic kidney disease) stage 3, GFR 30-59 ml/min Chronic N18.30 Falls frequently Acute R29.6 Blunt head trauma Acute S09.8XXA Blunt trauma of multiple sites of trunk Acute T07.XXXA Fall Acute W19.XXXA Impaired gait and mobility Acute ~03/2023 R26.89 Hyperlipidemia Chronic E78.5 Tobacco abuse disorder Chronic Z72.0 Personal history of noncompliance with medical treatment and regimen Chronic Z91.199 Alcoholic liver disease Chronic K70.9 Anemia Chronic ~02/2022 D64.9 CHF (congestive heart failure) Chronic ~02/2023 I50.9 Depression Chronic F32.9 Tineo's esophagus Chronic ~04/2019 K22.70 Weakness Acute R53.1 Urinary retention Chronic R33.9 COPD (chronic obstructive pulmonary disease) Chronic J44.9 Atrial fibrillation Chronic I48.91 Medical History Medical History Iron deficiency anemia due to chronic blood loss Hypomagnesemia Alcohol use disorder Acute upper gastrointestinal bleeding (~02/2022) Gastric ulcer Troponin level elevated Gout Colchicine prevention Sleeping difficulty Melatonin RX Palliative care patient [place] Insomnia Radicular pain of right lower extremity GI bleed Tineo's esophagus Right knee pain UTI (urinary tract infection) Hematemesis Depression Renal insufficiency Smoking hx Surgical History Surgical History H/O esophagogastroduodenoscopy (~04/2019) Repeat on 10/26/20 [facility] [place] severe reflux esophagitis w/ non-bleeding esophageal ulcer. Multiplle inflammatory appearing nodules at GEJ Tobacco Smoking/Tobacco Use Status: Current every day Tobacco Type: cigarettes Years smoked: 50 Alcohol Alcohol Intake: current Alcohol intake frequency: 3 or more drinks per day Alcohol type: hard liquor Substance Use Substance use: Never Substance use type: does not use Details: Pt has not had alcohol since being at the [facility]. Vital Signs and Lab Results Vital Signs Most Recent Vital Signs in EMR: Most Recent Vital Signs Temp Pulse Resp BP Pulse Ox 36.4 C 81 16 138/72 95 06/17/24 11:56 06/17/24 11:56 06/17/24 11:56 06/17/24 11:56 06/17/24 11:56 Lab Results 06/17/24 04:08 06/17/24 06:26 Blood Type / Crossmatch: 2 Antibody Screen NEGATIVE 06/17/24 Crossmatch See Detail 06/17/24 Complete Blood Count: 2 White Blood Count 6.65 10^3/uL (4.4-10.8) 06/17/24 04:08 Red Blood Count 3.09 10^6/uL (4.36-5.78) L 06/17/24 04:08 Hemoglobin 8.3 g/dL (13.5-17.5) L 06/17/24 04:08 Hematocrit 27.0 % (40.0-50.0) L 06/17/24 04:08 Platelet Count 182 10^3/uL (130-400) 06/17/24 04:08 Venous Blood Lactate 4.0 mmol/L (0.6-1.4) H* 06/17/24 00:35 Complete Metabolic Panel: 2 Sodium 141 mmol/L (136-145) 06/17/24 06:26 Potassium 5.3 mmol/L (3.5-5.1) H 06/17/24 06:26 Chloride 103 mmol/L (98-107) 06/17/24 06:26 Carbon Dioxide 17.7 mmol/L (21.0-32.0) L 06/17/24 06:26 BUN 62 mg/dL (7-18) H 06/17/24 06:26 Creatinine 2.5 mg/dL (0.70-1.30) H 06/17/24 06:26 Est GFR (CKD-EPI 2020) 25.65 (mL/min/1.73m2) 06/17/24 06:26 Magnesium 1.4 mg/dL (1.8-2.4) L 06/17/24 00:35 Calcium 8.2 mg/dL (8.5-10.1) L 06/17/24 10:00 Albumin 3.0 g/dL (3.4-5.0) L 06/17/24 06:26 Glucose 244 mg/dL (74-106) H 06/17/24 06:26 C-Reactive Protein 0.90 mg/dL (<or=0.5) H 06/17/24 06:26 Liver Function Panel: 2 Alanine Aminotransferase (ALT/SGPT) 17 U/L (16-63) 06/17/24 06: 26 Aspartate Amino Transf (AST/SGOT) 27 U/L (15-37) 06/17/24 06:26 Gamma Glutamyl Transpeptidase 28 U/L (15-85) 06/17/24 06:26 Coagulation Panel: 2 INR International Normalized Ratio 1.0 (0.9-1.1) 06/17/24 06:2 6 Prothrombin Time 9.9 sec (9.1-11.1) 06/17/24 06:26 Activated Partial Thromboplast Time 28.9 sec (23.6-32.8) 01:27 Cardiac Panel: 2 Troponin I 25 ng/L (<or=76) 06/17/24 Arterial Blood Gas: 2 No Data to Display Venous Blood Gas: 2 No Data to Display Pancreas Panel: 2 No Data to Display Thyroid Panel: 2 No Data to Display Infectious Disease: 2 No Data to Display Blood Cultures: 2 No Data to Display Toxicology Panel: 2 Ethyl Alcohol Level < 3.0 mg/dL (<10) 06/17/24 00:35 Imaging and Studies Imaging and Studies Study information below may be from another EMR and interpreted by another provider. Please see original notes in EMR for more complete details. EKG Summary: 06/23: afib. Echocardiogram Summary: 04/22: technically limited study. LV thickness/size/function appear normal. no adequate to assess for valve dz. Anesthesia Assessment and Plan Anesthesia History Personal History: No History of Anesthesia Complications Family History: No Family History of Anesthesia Complications Exercise Tolerance Exercise Tolerance: Metabolic Equivalents<4 Pertinent Negatives Pertinent Negatives: No Symptoms of GERD (vomiting blood this AM), No Major Cardiovascular Symptoms or Complaints (Difficult to assess, patient is a poor historian, no complaints at this time), No Major Pulmonary Symptoms or Complaints (Difficult to assess, patient is a poor historian, no complaints at this time) and No History of CVA/TIA (Difficult to assess, patient is a poor historian, no complaints at this time) Cardiac & Pulmonary Exam Cardiac Exam: Normal S1/S2 Heart Sounds Pulmonary Exam: Clear Bilateral Breath Sounds Implantable Cardiac Device Does patient have a Pacemaker or an ICD?: No Airway Exam Known Difficult Airway: No Mallampati Class: 2 Mouth Opening: Normal (> 3cm) Thyromental Distance: Greater than 3 cm Facial Hair: Full [place] Neck Range of Motion: Limited ROM Neck Circumference: Thick Teeth Condition: Edentulous ASA Classification ASA Score: ASA 3 Emergency Case?: Yes NPO Status NPO Status: Full Stomach Anesthesia Plan Resuscitation Status: Full Code Anesthesia Technique: General Anesthesia Airway Planned: Endotracheal Tube Monitors Used: Standard Monitors Preoperative Comments:: 79 yo male with ? UGIB for EGD. Currently in the ED, hgb 8. Sig PMHx: HTN, afib, hx CHF, COPD, tineo's/GERD, CKDIII, iliac/aorta stenosis, depression, smoker, daily EtOH (not since being at the [facility]). Previous Anes: - EGD x 2, natural airway, no issues.
--- NOTE | 2024-06-17 13:14 | W.PM.ENDDOP ---
Date of service: 06/17/24 Time of Service: 13:20 Endoscopy Report DATE OF PROCEDURE: 06/17/24 PRE-OP DIAGNOSIS: Upper GI bleed POST-OP DIAGNOSIS: other (Gastritis with peptic ulcer disease) PROCEDURE: Diagnostic EGD with clipping of gastric ulcers x 2 SURGEON: Domenico Harris ANESTHESIA TYPE: General:No Airway PATHOLOGY: none sent COMPLICATIONS: None DISPOSITION: PACU INDICATIONS: Khoi is a 71-year-old male with a history of gastritis who presents with hematemesis PROCEDURE START TIME: 12:58 PROCEDURE END TIME: 13:10 FINDINGS: Diffuse gastritis, with 2 shallow-based peptic ulcers PROCEDURE DESCRIPTION: After the initiation of general anesthesia I advanced a standard gastroscope through the mouth past the hypopharynx and into the esophagus.? Under the direct vision of the scope, I advanced down the esophagus towards the stomach.? The upper, mid, and lower esophagus were all normal-appearing. I did not see evidence of esophageal varices. The GE junction measures approximately 36 cm from the incisors. Advanced down across this into the stomach. Immediately evident was old retained blood in the stomach. Was all dark black. I did my best to irrigate this until the mucosa was visible. The stomach was insufflated into the rugae were obliterated. There is a small approximately 0.25 cm shallow-based ulcer on the greater curvature of hide towards the gastric cardia. There is no signs of active bleeding here. I do not appreciate a visible vessel. I advanced down towards the incisura angularis. On the lesser curvature, just proximal to the inside sure it is another ulcer. This is about 0.5 cm in size. It is also shallow, with no evidence of any recent bleeding. Again, no visible vessel was appreciated. There are some diffuse gastritis around the distal gastric fundus and antrum. I advanced down across the pylorus into the duodenum. The duodenal bulb was normal. I saw no blood within the duodenum. I was able to get the camera into the second portion. Although I did not see the ampulla proper, what was visible was totally normal, and I did not see any signs of any bleeding within the duodenum. Therefore, I brought the camera back up into the stomach. I clipped the 2 ulcers using resolution 360 clips according to the manufactures instructions. There was no active bleeding. The clips appeared well-seated, and appeared to encompass the majority of the ulcer tissue. I then emptied the stomach, and brought the camera out along the length of the esophagus 1 last time. No other abnormalities were appreciated. The patient was extubated and brought to the recovery unit
--- NOTE | 2024-06-17 13:27 | PHACLINREV_ITS ---
Pharmacy Admission Review Admission Clinical Review Admission Pharmacy Review: Atherosclerosis of abdominal aorta (Acute) Iliac artery stenosis, bilateral (Acute) Coronary artery calcification seen on CAT scan (Acute) Fatty liver disease, nonalcoholic (Acute) Upper GI bleed (Acute) Acute kidney injury (Acute) Acute hyperkalemia (Acute) Gastrointestinal hemorrhage with hematemesis (Acute) bupropion Adverse Reaction (Severe, Verified 06/17/24 00:23) seizures Resuscitation Status Full Code Height 5 ft 5 in Weight 70.307 kg Pharmacy Admission Review Renal Dosing Renal Dosing: BUN 62 mg/dL (7-18) H 06/17/24 06:26 Creatinine 2.5 mg/dL (0.70-1.30) H 06/17/24 06:26 Medications needing adjustments: Reviewed (CrCl 24.22 mL/min) List of meds needing interventions: Current medications are okay Anticoagulation Anticoagulation: Hgb 8.3 L 06/17/24 04:08 Hct 27 L 06/17/24 04:08 Plt Count 182 10^3/uL (130-400) 06/17/24 04:08 INR 1.0 (0.9-1.1) 06/17/24 06:26 Creatinine 2.5 mg/dL (0.70-1.30) H 06/17/24 06:26 DVT Prophylaxis: Reviewed (None at this time - GI hemorrhage, Hgb decreased from 11.5) Relevant Labs Relevant Labs: Sodium 141 mmol/L (136-145) 06/17/24 06:26 Potassium 5.3 mmol/L (3.5-5.1) H D 06/17/24 06:26 Chloride 103 mmol/L (98-107) 06/17/24 06:26 Magnesium 1.4 mg/dL (1.8-2.4) L 06/17/24 00:35 C-Reactive Protein 0.90 mg/dL (<or=0.5) H 06/17/24 06:26 Electrolytes, C-Reactive P, ESR: Reviewed (K 5.3, Mg 1.4 - repleting, Ca increased from 8 to 8.2, glucose 244) Cardiac Review Cardiac Review: Troponin I 25 ng/L (<or=76) 06/17/24 04:06 Blood Pressure 147/59 1231 Blood Pressure 151/78 1215 Blood Pressure 138/72 1201 Blood Pressure 138/72 1156 Blood Pressure 149/64 1151 Blood Pressure 141/62 1131 Blood Pressure 164/94 1116 Blood Pressure 144/66 1100 Blood Pressure 128/77 1056 Blood Pressure 128/77 1052 Blood Pressure 139/67 1046 Blood Pressure 134/76 1031 BP, HR, EF%: Reviewed (HR WNL) List meds needing interventions: Has order for metoprolol IVP 5mg every 6 hours QTc Review QTc: Reviewed (469 from 06/17/24) IV to PO Switch IV Medications: Reviewed (metoprolol and pantoprazole - currently NPO) Home Meds Home Med List reviewed: Reviewed Relevent Home Meds Not ordered & why?: acetaminophen, amlodipine, atorvastatin, cetirizine, docusate, ferrous sulfate, ibuprofen, Xopenex, magnesium gluconate, melatonin, mirtazapine, multivitamin, nicotine patch, Miralax, tamsulosin, th iamine, Lawanda-edita None ordered at this time, patient is in surgery and is NPO for right now. Will discuss with provider once patient is able to take PO meds Current Meds Current Medication Order Review: Reviewed Comments: Pantoprazole infusion Ocreotide infusion - asked provider if patient needed another one, bag would witt ve run out this morning. Tried to call to see if they needed another one but no one was available and they never called to ask for a new one. Waiting to hear back from provider TXA infusion Banana bag: per provider most likely will not need another one so we will hold off on making it for now Lorazepam for CIWA: last score of 1 at 1154 - no doses given so far Pharmacy Antibiotic Review Relevant Labs: Relevant Labs 06/17/24 06:26 C-Reactive Protein 0.90 H
--- NOTE | 2024-06-17 14:09 | W.ANESPOSTOP ---
Postoperative Evaluation Date, Time and Location Date Performed: 06/17/24 Time Performed: 14:09 Patient Location: Intensive Care Unit Vital Signs Most Recent Imported Vital Signs: Most Recent Vital Signs Temp Pulse Resp BP Pulse Ox 36.4 C 95 H 22 117/60 98 06/17/24 11:56 06/17/24 14:01 06/17/24 14:01 06/17/24 14:01 06/17/24 14:01 Pain Score Most Recent Pain Score: Most Recent Pain Score Pain Level 0 06/17/24 00:20 Assessment Mental Status: Awake (Alert & Oriented to Patient Baseline) Airway and Respiratory Function: Patent airway with normal (patient baseline) respiratory exam Cardiovascular Function: Hemodynamically Stable Hydration Status: Adequately Hydrated Nausea & Vomiting: No Nausea or Vomiting Pain: Pt. Denies Any Pain Peripheral Nerve Block: Patient did not receive a nerve block
[2024-06-17] MEDS: Normal Saline Flush 10 ML SYR IVP ×4 (14:59→20:36)
[2024-06-17 21:45] LABS: HCT 32.3 % (40.0-50.0); HGB 10.6 g/dL (13.5-17.5)
[2024-06-17 21:54] LABS: BUN 43 mg/dL (7-18); Calcium 8.3 mg/dL (8.5-10.1); Chloride 102 mmol/L (98-107); Estimated GFR 33.53 (mL/min/1.73m2); Glucose 289 mg/dL (74-106); Potassium 5.2 mmol/L (3.5-5.1); Sodium 138 mmol/L (136-145)
[2024-06-18] VITALS (60 sets, daily range): BP systolic 112–175; BP diastolic 60–119; PULSE 61–106; RESP 13–30; TEMP 36.3–36.6; O2SAT 94–98
[2024-06-18] MEDS: Lactated Ringers 1,000 ML 30 ML IV (00:36)
[2024-06-18] MEDS: Metoprolol 5 MG/5 ML VIAL IVP ×2 (02:45→08:52)
--- NOTE | 2024-06-18 03:07 | NUR.NOTE ---
Nursing Note: discussed with pt the order for one more unit ot blood and pt replied that he had recieved a unit downstairs and then they checked his bloodwork and the came back in and told him his H&H had come up so he didnt need another unit. Shift Superintendent Caustic Cresylate Zoya notified of this. Georges BOSE
[2024-06-18 06:54] LABS: HCT 31.9 % (40.0-50.0); HGB 10.6 g/dL (13.5-17.5); MCH 27.6 pg (27.0-33.0); MCHC 33.2 % (32.0-36.0); MCV 83 fL (80-95); MPV 9.8 fL (8.0-11.0); Platelet Count 138 10^3/uL (130-400); RBC 3.84 10^6/uL (4.36-5.78); RDW 19.8 % (11.8-14.1); RDW-SD 60.7 fL; WBC 5.82 10^3/uL (4.4-10.8)
[2024-06-18 07:23] LABS: ALT 20 U/L (16-63); AST 20 U/L (15-37); Albumin 3.2 g/dL (3.4-5.0); Alkaline Phosphatase 53 U/L (46-116); Anion Gap 10.4 mmol/L (3-11); BUN 33 mg/dL (7-18); Bilirubin, Direct 0.2 mg/dL (0.0-0.2); Bilirubin, Total 0.64 mg/dL (0.2-1.0); CO2 26.6 mmol/L (21.0-32.0); CREATININE 1.7 mg/dL (0.70-1.30); Calcium 8.6 mg/dL (8.5-10.1); Chloride 103 mmol/L (98-107); Estimated GFR 40.75 (mL/min/1.73m2); Glucose 152 mg/dL (74-106); Magnesium 1.5 mg/dL (1.8-2.4); Potassium 4.9 mmol/L (3.5-5.1); Sodium 140 mmol/L (136-145); Total Protein 6.3 g/dL (6.4-8.2)
--- NOTE | 2024-06-18 09:27 | W.PM.PROGNOT ---
Date of Service Date of service: 06/18/24 Time of Service: 09:27 Assessment and Plan Assessment and plan (1) Upper GI bleed: Status: Acute Assessment and plan: Presented with UGI bleed. POD #1 s/p endoscopy with clipping of 2 ulcers, not actively bleeding at the time. H/H stable overnight after 1 unit in ED. No cirrhosis, no varicies, so will not continue octreotide. TXA not indicated for UGI bleed per 2019 HALT-IT trial, and possible benefit is within 3 hour of bleeding onset. will not continue. Await surgery input before restarting diet, probably 24-48 hours. I would like to resume psych and cardiac meds orally when we can. (2) CHF (congestive heart failure): Status: Chronic Assessment and plan: Not in active CHF, contine to monitor. Qualifiers: Heart failure type: systolic Heart failure chronicity: acute Qualified Code(s): I50.21 - Acute systolic (congestive) heart failure (3) Tobacco abuse disorder: Status: Chronic Assessment and plan: low level smoking. Declines NRT. Encouraged cessation. (4) Atrial fibrillation: Status: Chronic Assessment and plan: He has not been anticoagulated. He is on metoprolol, continue IV until he can take po Qualifiers: Atrial fibrillation type: paroxysmal Qualified Code(s): I48.0 - Paroxysmal atrial fibrillation (5) CKD (chronic kidney disease) stage 3, GFR 30-59 ml/min: Status: Chronic Assessment and plan: Stable, monitor Qualifiers: Chronic kidney disease stage 3 subtype: stage 3b (GFR 30-44) Qualified Code(s): N18.32 - Chronic kidney disease, stage 3b (6) Alcohol use disorder: Assessment and plan: We have discussed need for cessation, states he will consider. Discussed medications and supports. (7) Hypomagnesemia: Assessment and plan: a/w ETOH, replace. (8) COPD (chronic obstructive pulmonary disease): Status: Chronic Assessment and plan: A little wheezey today, has albuterol prn. Qualifiers: COPD type: COPD with acute exacerbation Qualified Code(s): J44.1 - Chronic obstructive pulmonary disease with (acute) exacerbation (9) DVT prophylaxis: Status: Acute Assessment and plan: SCDs given GI bleed (10) Palliative care patient: Assessment and plan: consult for continuity Subjective Subjective Patient reports: denies bowel movement, vomiting or fever Interval history since last seen: Didn't sleep. He isn't sure why, but he didn't get his normal sleeping medications. He doesn't feel tremors. He denies abdominal or chest pain but has some chest tightness with breathing, feels like he could use inhaler. He is still thirsty. Exam Narrative Exam Narrative: Gen: Alert and Oriented, appears mildly anxious, clammy, but NAD. HEENT anicteric, dry oral cavity; lungs with slight wheeze homero, no rales; heart irr/irr; abdomen +BS, soft and NT; extremities w/o edema; neuro: no tremor Objective Last Vital Signs Temp 36.6 C 06/18/24 03:47 Pulse 73 06/18/24 08:52 Resp 14 06/18/24 05:55 BP 131/94 H 06/18/24 08:52 Pulse Ox 96 06/18/24 05:55 Laboratory Results - last 24 hr 06/17/24 06/17/24 06/17/24 01:27 10:00 20:30 WBC RBC Hgb Cancelled Hct MCV MCH MCHC RDW Plt Count MPV Sodium Potassium Chloride Carbon Dioxide Anion Gap BUN Creatinine Est GFR (CKD-EPI 2020) Glucose Calcium 8.2 L Magnesium Total Bilirubin Conjugated Bilirubin AST ALT Alkaline Phosphatase Total Protein Albumin ABO/Rh O Positive Antibody Screen NEGATIVE Crossmatch See Detail 06/17/24 06/18/24 21:05 05:40 WBC 5.82 RBC 3.84 L Hgb 10.6 L D 10.6 L Hct 32.3 L 31.9 L MCV 83 D MCH 27.6 MCHC 33.2 D RDW 19.8 H Plt Count 138 MPV 9.8 Sodium 138 140 Potassium 5.2 H 4.9 Chloride 102 103 Carbon Dioxide 25.0 26.6 Anion Gap 11.0 10.4 BUN 43 H 33 H Creatinine 2.0 H 1.7 H Est GFR (CKD-EPI 2020) 33.53 40.75 Glucose 289 H 152 H Calcium 8.3 L 8.6 Magnesium 1.5 L Total Bilirubin 0.64 Conjugated Bilirubin 0.2 AST 20 ALT 20 Alkaline Phosphatase 53 Total Protein 6.3 L Albumin 3.2 L ABO/Rh Antibody Screen Crossmatch PAWSS Have you Been Recently Intoxicated or Drunk Within the Last 30 days?: No Have you Ever Experienced Previous Episodes of Alcohol Withdrawal?: No Have you ever Experienced Withdrawal Seizures?: No Have you ever Experienced Delirium Tremens(DT)s?: No Have you ever undergone Alcohol Rehabilitation Treatment (i.e, inpt ot outpatient treatment programs)?: Yes Have you ever Experienced Blackouts?: No Have you ever Combined Alcohol with other Downers within the last 90 days?: No Have you ever Combined Alcohol with any other Substance of Abuse during the last 90 days?: No Positive Blood Alcohol level on Presentation? [PCS.BAL]: No Evidence of Increased Autonomic Activity (i.e. HR>120, tremor, sweating, agitation, nausea)?: No Result: 1 Time Spent with Patient Time Spent with Patient: >50 minutes Time was spent: preparing to see the patient(eg.review tests), obtaining and/or reviewing separately otained hiistory, ordering medications,tests, procedures, referring, communicating with other health director career services, indepentently interpreting results, counseling the patient and care coordination
--- NOTE | 2024-06-18 09:56 | PGE_ITS ---
Date of Service Date of service: 06/18/24 Time of Service: 16:07 Assessment and Plan Assessment and plan (1) Gastrointestinal hemorrhage with hematemesis: Status: Acute Assessment and plan: 79-year-old male who presented with hematemesis. At the time of EGD he was found to have some gastric ulcers that were not bleeding. Clips were placed regardless. He has been hemodynamically stable without any further signs of GI bleed for the past 24 hours. - IV protonix bid - full liquids - OOB, ambulate - PT Patient can be advanced to a regular diet as tolerated. He should go home on a twice daily PPI for 8 weeks and then transition to once daily. He should refrain from all NSAID use and alcohol consumption. He should follow-up with Dr. Harris in the [facility] surgical office in 2 to 4 weeks. General surgery will be available for any acute changes but will sign off for now. (2) Alcohol use disorder: Assessment and plan: [facility] protocol Subjective Subjective Interval history since last seen: Patient reports feeling very shaky and anxious this morning. He does not feel very strong on his feet. He is not having any more vomiting or abdominal pain. He is asking about the ulcers that were found on upper endoscopy. He was given some clear liquids but only drank about 1 cup as he is fearful of irritating his ulcers. He has not had any bowel movements since yesterday. He has not had any significant abdominal pain. Hemoglobin has been stable at 10.6 since yesterday. Exam Narrative Exam Narrative: General?lying in bed, awake, appears a bit uneasy. HEENT?mucous membranes moist, sclera anicteric, normocephalic, atraumatic. Neck?supple, no masses Respiratory?unlabored, no use of accessory muscles Abdomen?soft, nontender, nondistended. Objective Last Vital Signs Temp 36.6 C 06/18/24 03:47 Pulse 78 06/18/24 09:22 Resp 14 06/18/24 05:55 BP 133/78 06/18/24 09:22 Pulse Ox 96 06/18/24 05:55 Laboratory Results - last 24 hr 06/17/24 06/17/24 06/17/24 01:27 10:00 20:30 WBC RBC Hgb Cancelled Hct MCV MCH MCHC RDW Plt Count MPV Sodium Potassium Chloride Carbon Dioxide Anion Gap BUN Creatinine Est GFR (CKD-EPI 2020) Glucose Calcium 8.2 L Magnesium Total Bilirubin Conjugated Bilirubin AST ALT Alkaline Phosphatase Total Protein Albumin ABO/Rh O Positive Antibody Screen NEGATIVE Crossmatch See Detail 06/17/24 06/18/24 21:05 05:40 WBC 5.82 RBC 3.84 L Hgb 10.6 L D 10.6 L Hct 32.3 L 31.9 L MCV 83 D MCH 27.6 MCHC 33.2 D RDW 19.8 H Plt Count 138 MPV 9.8 Sodium 138 140 Potassium 5.2 H 4.9 Chloride 102 103 Carbon Dioxide 25.0 26.6 Anion Gap 11.0 10.4 BUN 43 H 33 H Creatinine 2.0 H 1.7 H Est GFR (CKD-EPI 2020) 33.53 40.75 Glucose 289 H 152 H Calcium 8.3 L 8.6 Magnesium 1.5 L Total Bilirubin 0.64 Conjugated Bilirubin 0.2 AST 20 ALT 20 Alkaline Phosphatase 53 Total Protein 6.3 L Albumin 3.2 L ABO/Rh Antibody Screen Crossmatch PAWSS Have you Been Recently Intoxicated or Drunk Within the Last 30 days?: No Have you Ever Experienced Previous Episodes of Alcohol Withdrawal?: No Have you ever Experienced Withdrawal Seizures?: No Have you ever Experienced Delirium Tremens(DT)s?: No Have you ever undergone Alcohol Rehabilitation Treatment (i.e, inpt ot outpatient treatment programs)?: Yes Have you ever Experienced Blackouts?: No Have you ever Combined Alcohol with other Downers within the last 90 days?: No Have you ever Combined Alcohol with any other Substance of Abuse during the last 90 days?: No Positive Blood Alcohol level on Presentation? [PCS.BAL]: No Evidence of Increased Autonomic Activity (i.e. HR>120, tremor, sweating, agitation, nausea)?: No Result: 1 Time Spent with Patient Time Spent with Patient: <25 minutes Time was spent: preparing to see the patient(eg.review tests), ordering medications,tests, procedures and counseling the patient
[2024-06-18] MEDS: LORazepam 2 MG/ML VIAL IVP (09:57)
[2024-06-18] MEDS: Multivitamin TAB 1 TAB PO (10:25)
[2024-06-18] MEDS: Normal Saline Flush 10 ML SYR IVP ×2 (10:25→20:58)
[2024-06-18] MEDS: Pantoprazole 40 MG VIAL IVP ×2 (10:25→21:01)
[2024-06-18] MEDS: Folic Acid 1 MG TAB PO (10:25)
[2024-06-18] MEDS: Thiamine 100 MG TAB PO (10:25)
[2024-06-18] MEDS: MAGNESIUM SULFATE 2 GM/50 ML BAG IVINF (10:26)
[2024-06-18] MEDS: Metoprolol CR 50 MG TABCR PO (12:17)
--- NOTE | 2024-06-18 13:33 | W.PALLCONSUL ---
Date of service: 06/18/24 Time of Service: 13:33 History of Present Illness Narrative: Rufino was seen for Palliative visit for continuity of care. He was last seen in 2021 during a hospitalization. He has not participated with outpatient f/u visits. Rufino has previously completed [facility] paperwork that names his brother, Oewn. He had a caregiver that he reports was great, she came 2x/week and he paid her $15 each visit. She went back to live with her brother so she is no longer providing care. He has had difficulty finding someone to fill her position. He has had HH in the past but did not feel like they could meet his needs. He was recently at the [facility] for physical rehab. He would be open to returning there but he feels it would be embarassing to go right back to rehab. He is worried that he will be discharged home soon and he does not feel ready to return home. Discussed ETOH use. He is noncommittal when discussing cessation from alcohol. He said he may consider meeting with a cricket coach but he did not give a definite answer. He is connected with [facility]. Discussed CODE status, he prefers to remain a FULL CODE at this time. He is agreeable to Palliative f/u but does not want home visits. He does not think he wants people coming into his home. He provided his cell phone number: [phone] to contact him for f/u. Assessment and Plan Assessment and plan (1) Upper GI bleed: Status: Acute Assessment and plan: Rufino is a 79-year-old male who presented with hematemesis in the setting of AUD. EGD revealed gastric ulcers that were not bleeding, clips were placed. No further bleeding. He is tolerating advancement of his diet- to full liquids at this point. (2) CHF (congestive heart failure): Status: Chronic Assessment and plan: LVEF in 2021 45-50% Qualifiers: Heart failure type: systolic Heart failure chronicity: acute Qualified Code(s): I50.21 - Acute systolic (congestive) heart failure (3) Tobacco abuse disorder: Status: Chronic (4) Atrial fibrillation: Status: Chronic Assessment and plan: Not on AC. Qualifiers: Atrial fibrillation type: paroxysmal Qualified Code(s): I48.0 - Paroxysmal atrial fibrillation (5) CKD (chronic kidney disease) stage 3, GFR 30-59 ml/min: Status: Chronic Assessment and plan: Stable. Qualifiers: Chronic kidney disease stage 3 subtype: stage 3b (GFR 30-44) Qualified Code(s): N18.32 - Chronic kidney disease, stage 3b (6) Alcohol use disorder: Assessment and plan: He was noncommittal when discussing cessation from ETOH. He may consider meeting with cricket coach. (7) Hypomagnesemia: Assessment and plan: a/w ETOH. (8) COPD (chronic obstructive pulmonary disease): Status: Chronic Qualifiers: COPD type: COPD with acute exacerbation Qualified Code(s): J44.1 - Chronic obstructive pulmonary disease with (acute) exacerbation (9) Palliative care patient: Assessment and plan: He has been seen by Palliative in the past, his last visit was in 2021. He has not f/u outpatient. He states today that he would consider f/u in the office. He does not want HV. He may consider rehab after this hospitalization if offered. He was recently discharged from the [facility]. He does not want HH. He is in search of a new caregiver to come into his home and help/support him. He needs help with housework (? if HH could provide this service). He is connected with [facility]. He is a FULL CODE. His brother is his HCA, he would like this to stay in place. He would benefit from f/u with Palliative. Will ask the office to contact him after discharge to set up f/u. Review of Systems Narrative: He is feeling very tired. He states he needs to get some sleep. He is eating full liquids and tolerating his diet. PFSH All Active Problems DVT prophylaxis (Acute) Atherosclerosis of abdominal aorta (Acute) Iliac artery stenosis, bilateral (Acute) Coronary artery calcification seen on CAT scan (Acute) Fatty liver disease, nonalcoholic (Acute) Hiatal hernia (Chronic) Upper GI bleed (Acute) Acute kidney injury (Acute) Acute hyperkalemia (Acute) Gastrointestinal hemorrhage with hematemesis (Acute) Delirium due to multiple etiologies (Acute) Anemia, chronic disease (Acute) CKD (chronic kidney disease) stage 3, GFR 30-59 ml/min (Chronic) Falls frequently (Acute) Blunt head trauma (Acute) Blunt trauma of multiple sites of trunk (Acute) Fall (Acute) Impaired gait and mobility (Acute ~03/2023) Hyperlipidemia (Chronic) Tobacco abuse disorder (Chronic) Cut down 1/2PPD Personal history of noncompliance with medical treatment and regimen (Chronic) Alcoholic liver disease (Chronic) Anemia (Chronic ~02/2022) S/P GI bleed CHF (congestive heart failure) (Chronic ~02/2023) ECHO 02/2022 LVEF 45-50% Depression (Chronic) Plans on getting connected to social work Tineo's esophagus (Chronic ~04/2019) ETOH; Upper endoscopy 03/2019 (see path report--no tineo's?, but 08/15/2019 surg note says +tineo's) Weakness (Acute) LE weakness; Home PT Urinary retention (Chronic) Dr. Ramos COPD (chronic obstructive pulmonary disease) (Chronic) Atrial fibrillation (Chronic) Paroxysmal per hospital records; not anticoagulated secondary to recurrent GI bleeds from chronic EtOH use Medical History Iron deficiency anemia due to chronic blood loss Hypomagnesemia Alcohol use disorder Acute upper gastrointestinal bleeding (~02/2022) Gastric ulcer Troponin level elevated Gout Colchicine prevention Sleeping difficulty Melatonin RX Palliative care patient [place]bert[place] Insomnia Radicular pain of right lower extremity GI bleed Tineo's esophagus Right knee pain UTI (urinary tract infection) Hematemesis Depression Renal insufficiency Smoking hx Surgical History H/O esophagogastroduodenoscopy (~05/2019) Repeat on 10/26/20 [facility] [place] severe reflux esophagitis w/ non-bleeding esophageal ulcer. Multiplle inflammatory appearing nodules at [facility] Social History Smoking/Tobacco Use Status: Current every day Tobacco Type: cigarettes Years smoked: 50 Smoking risk assessment performed?: Yes Alcohol Intake: current Alcohol Intake frequency: 3 or more drinks per day Alcohol type: hard liquor Drug use: Never Substance use type: does not use Details: Pt has not had alcohol since being at the [facility]. 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 He is awake, alert and oriented, he does not appear to be in any distress. HEENT: normocephalic, atraumatic, EOMI, MMM. Neck: supple Respiratory: respirations appear even and unlabored at rest. Ext: moves all extremities freely, he was able to get himself to the edge of the bed and stand to void in the urinal independently. Results Last Vital Signs Temp 36.4 C L 06/18/24 08:40 Pulse 66 06/18/24 10:01 Resp 19 06/18/24 10:01 BP 150/91 H 06/18/24 10:01 Pulse Ox 96 06/18/24 10:01 Labs 06/18/24 05:40 06/18/24 05:40 Labs: Laboratory Results - last 24 hr 06/17/24 06/17/24 06/18/24 20:30 21:05 05:40 WBC 5.82 RBC 3.84 L Hgb Cancelled 10.6 L D 10.6 L Hct 32.3 L 31.9 L MCV 83 D MCH 27.6 MCHC 33.2 D RDW 19.8 H Plt Count 138 MPV 9.8 Sodium 138 140 Potassium 5.2 H 4.9 Chloride 102 103 Carbon Dioxide 25.0 26.6 Anion Gap 11.0 10.4 BUN 43 H 33 H Creatinine 2.0 H 1.7 H Est GFR (CKD-EPI 2020) 33.53 40.75 Glucose 289 H 152 H Calcium 8.3 L 8.6 Magnesium 1.5 L Total Bilirubin 0.64 Conjugated Bilirubin 0.2 AST 20 ALT 20 Alkaline Phosphatase 53 Total Protein 6.3 L Albumin 3.2 L Time Spent Time Spent with Patient Time Spent(min): 48
--- NOTE | 2024-06-18 14:17 | INITIAL_ITS ---
Date of service: 06/18/24 Time of Service: 16:40 Care Management Initial Assmt Initial Assessment Reason for Hospitalization: UGI Bleed Functional Status/Living Situation Patient Presentation: Rufino is lying in bed when CM meets with him, he remembers this chief writer from previous admissions and is pleasant in interaction but reports he only wants to rest at this time. CM following. Town of Residence: [facility] Resides with: Alone Caregiver/Guardian: Caregiver moved away and is no longer supporting Rufino; he is struggling to find a replacement. Employment Status: Retired Medications Medication Management: Issues/Barriers (Compliance r/t [facility]) with Other Advance Directives Advance Directives: Do you have an Advance Directive: N 03/19/22 14:58 AD On File at [facility]: N 03/19/22 14:58 Date Asked 06/17/24 06/17/24 07:54 AD Date Reviewed COLST On File at [facility] Yes 03/19/22 14:57 COLST Date Scanned 03/14/23 03/14/23 00:20 Code Status Resuscitation Status Full Code Care Team Visit Care Team Role Provider Type Desirae Panda NP Primary Care Provider NURSE PRACTITIONER [facility]umiko Tyler [facility] Other [facility]iders [facility] STAFF PHYSICIAN Lashonda Sanches Other Providers CATEGORY CONSULTANT Ale Hernandez Other Providers CATEGORY CONSULTANT Hanh Hernandez Other Providers CATEGORY CONSULTANT Nati Mcadams RN Other Providers CATEGORY CONSULTANT Haydee Bravo Other Providers OIL FIELD RIG BUILDER Santi Dangelo DO Emergency Provider [facility] STAFF PHYSICIAN Crescencio Maradiaga MD Admit Provider [facility] STAFF PHYSICIAN Attending Provider Discharge Potential Discharge Needs: Consult Consult Services Needed: Palliative, PT Evaluation and PCP F/U Appt Patient/Family Education Needs: Review discharge instructions, discuss Ask Me Three Transportation: Private vehicle (May require RCT) Plan: Anticipate Rufino will return home when ready per MD. He will be evaluated for home health service needs prior to discharge, agreeable to Palliative follow up but declined home visits. Rufino is willing to consider Bartender Manager at this time; CM following. [facility] supports; unsure if Rufino is staying in touch with manager technical support. PFSH All Active Problems (Updated 06/18/24 @ 09:46 by Prashant Rosales) DVT prophylaxis (Acute) Atherosclerosis of abdominal aorta (Acute) Iliac artery stenosis, bilateral (Acute) Coronary artery calcification seen on CAT scan (Acute) Fatty liver disease, nonalcoholic (Acute) Hiatal hernia (Chronic) Upper GI bleed (Acute) Acute kidney injury (Acute) Acute hyperkalemia (Acute) Gastrointestinal hemorrhage with hematemesis (Acute) Delirium due to multiple etiologies (Acute) Anemia, chronic disease (Acute) CKD (chronic kidney disease) stage 3, GFR 30-59 ml/min (Chronic) Falls frequently (Acute) Blunt head trauma (Acute) Blunt trauma of multiple sites of trunk (Acute) Fall (Acute) Impaired gait and mobility (Acute ~03/2023) Hyperlipidemia (Chronic) Tobacco abuse disorder (Chronic) Cut down 1/2PPD Personal history of noncompliance with medical treatment and regimen (Chronic) Alcoholic liver disease (Chronic) Anemia (Chronic ~02/2022) S/P GI bleed CHF (congestive heart failure) (Chronic ~02/2023) ECHO 02/2022 LVEF 45-50% Depression (Chronic) Plans on getting connected to social work Tineo's esophagus (Chronic ~04/2019) ETOH; Upper endoscopy 03/2019 (see path report--no tineo's?, but 08/15/2019 surg note says +tineo's) Weakness (Acute) LE weakness; Home PT Urinary retention (Chronic) Dr. Ramos COPD (chronic obstructive pulmonary disease) (Chronic) Atrial fibrillation (Chronic) Paroxysmal per hospital records; not anticoagulated secondary to recurrent GI bleeds from chronic EtOH use Medical History Iron deficiency anemia due to chronic blood loss Hypomagnesemia Alcohol use disorder Acute upper gastrointestinal bleeding (~02/2022) Gastric ulcer Troponin level elevated Gout Colchicine prevention Sleeping difficulty Melatonin RX Palliative care patient [place]bert[place] Insomnia Radicular pain of right lower extremity GI bleed Tineo's esophagus Right knee pain UTI (urinary tract infection) Hematemesis Depression Renal insufficiency Smoking hx Surgical History (Updated 06/17/24 @ 14:57 by Bette Shelton) H/O esophagogastroduodenoscopy (~05/2019) Repeat on 10/26/20 [facility] [place] severe reflux esophagitis w/ non-bleeding esophageal ulcer. Multiplle inflammatory appearing nodules at [facility] Social History (Updated 06/17/24 @ 07:39 by MARISELA Cm) Smoking/Tobacco Use Status: Current every day Tobacco Type: cigarettes Years smoked: 50 Smoking risk assessment performed?: Yes Alcohol Intake: current Alcohol Intake frequency: 3 or more drinks per day Alcohol type: hard liquor Drug use: Never Substance use type: does not use Details: Pt has not had alcohol since being at the [facility]. 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) What type of physical activity do you participate in: none Do you feel safe at home: Yes Do you feel safe in your relationship?: Yes SDOH(Care Management) Screening Will the Patient Participate in the Screening?: Yes Do you worry about having a steady place to live?: yes In the past 12 months, have you had to go without electric, gas, oil or water in your home?: no Have you or anyone in your house had to go without enough food to eat?: no Has lack of transportation kept you from medical appointments or from doing things needed for daily living?: yes Has anyone in your support network made you feel unsafe for any reason?: yes Social Determinants of Health Comments(SDOH Details): Pt states he always has to take a taxi. Pt states his son has made him feel unsafe. Health Related Social Needs Health related social needs: housing instability, housed, with risk of homelessness(Z59.811), transportation insecurity(Z59.82) and problem related to primary support group(Z63.9) Anticipated HH Services Anticipated HH Services at Discharge [facility].
--- NOTE | 2024-06-18 15:04 | PT.INNT ---
PT Notes Visit Reasons: UGI Bleed Attempted to see patient twice today but he refused both times stating that he has not slept well and needed the rest. He was adamant about not getting out of bed during those two attempts and Nurse Jayla was updated about refusals. Patient did verbalize that he will work with PT after breakfast tomorrow. Wll plan on seeing patient tomorrow morning, as ordered.
[2024-06-18] MEDS: Melatonin 3 MG TAB PO (20:28)
[2024-06-18] MEDS: Atorvastatin 40 MG TAB PO (20:28)
[2024-06-18] MEDS: Mirtazapine 15 MG TAB 7.5 MG PO (20:28)
[2024-06-19] VITALS (38 sets, daily range): BP systolic 83–160; BP diastolic 47–104; PULSE 62–113; RESP 12–29; TEMP 36.6–37.1; O2SAT 95–98
[2024-06-19] MEDS: DEXTROSE 5%-LACTATED RINGERS 1,000 ML 100 ML IV (01:18)
[2024-06-19] MEDS: Normal Saline Flush 10 ML SYR IVP ×3 (01:20→21:03)
[2024-06-19 06:55] LABS: HCT 34.5 % (40.0-50.0); HGB 11.2 g/dL (13.5-17.5); MCH 27.9 pg (27.0-33.0); MCHC 32.5 % (32.0-36.0); MCV 86 fL (80-95); MPV 9.9 fL (8.0-11.0); Platelet Count 124 10^3/uL (130-400); RBC 4.02 10^6/uL (4.36-5.78); RDW 19.9 % (11.8-14.1); RDW-SD 62.8 fL; WBC 6.76 10^3/uL (4.4-10.8)
[2024-06-19 07:13] LABS: Anion Gap 6.7 mmol/L (3-11); BUN 25 mg/dL (7-18); CO2 31.3 mmol/L (21.0-32.0); CREATININE 1.5 mg/dL (0.70-1.30); Calcium 8.7 mg/dL (8.5-10.1); Chloride 103 mmol/L (98-107); Estimated GFR 47.36 (mL/min/1.73m2); Glucose 137 mg/dL (74-106); Magnesium 1.7 mg/dL (1.8-2.4); Sodium 141 mmol/L (136-145)
[2024-06-19] MEDS: Pantoprazole 40 MG VIAL IVP ×2 (08:22→21:02)
[2024-06-19] MEDS: Thiamine 100 MG TAB PO (08:22)
[2024-06-19] MEDS: Folic Acid 1 MG TAB PO (08:23)
[2024-06-19] MEDS: amLODIPine 5 MG TAB PO (08:23)
[2024-06-19] MEDS: Tamsulosin 0.4 MG CAPCR 0.8 MG PO (08:24)
[2024-06-19] MEDS: Multivitamin TAB 1 TAB PO (08:24)
--- NOTE | 2024-06-19 08:48 | PT.INIE ---
PT Notes Visit Reasons: UGI Bleed Inpatient Physical Therapy Initial Evaluation Date: 06/19/2024 Referring Doctor: Yumiko Tyler MD PT Orders: Eval/Treat Precautions: Fall. Standard. Activity as tolerated. Patient Profile/Admitting Diagnosis: Khoi is a 79-year-old male smoker with past medical history significant for chroninc alcoholism and COPD who presented to the ED on 06/17/2024 with chief complaints of vomiting blood and generalized weakness. He is admitted for management of upper GI bleed, COPD, yet for anemia, fatty liver, coronary artery calcification, iliac artery stenosis, atherosclerosis of abdominal aorta, CHF, tobacco abuse disorder atrial fibrillation, EtOH abuse disorder and hypomagnesemia. PMHX: All Active Problems (Updated 06/17/24 @ 06:55 by Crescencio Maradiaga MD) Upper GI bleed (Acute) Acute kidney injury (Acute) Acute hyperkalemia (Acute) Gastrointestinal hemorrhage with hematemesis (Acute) Delirium due to multiple etiologies (Acute) Anemia, chronic disease (Acute) CKD (chronic kidney disease) stage 3, GFR 30-59 ml/min (Chronic) Falls frequently (Acute) Blunt head trauma (Acute) Blunt trauma of multiple sites of trunk (Acute) Fall (Acute) Impaired gait and mobility (Acute ~03/2023) Hyperlipidemia (Chronic) Tobacco abuse disorder (Chronic) Cut down 1/2PPD Personal history of noncompliance with medical treatment and regimen (Chronic) Alcoholic liver disease (Chronic) Anemia (Chronic ~02/2022) S/P GI bleed CHF (congestive heart failure) (Chronic ~02/2023) ECHO 02/2022 LVEF 45-50% Depression (Chronic) Plans on getting connected to social work Tineo's esophagus (Chronic ~04/2019) ETOH; Upper endoscopy 03/2019 (see path report--no tineo's?, but 08/15/2019 surg note says +tineo's) Weakness (Acute) LE weakness; Home PT Urinary retention (Chronic) Dr. Ramos COPD (chronic obstructive pulmonary disease) (Chronic) Atrial fibrillation (Chronic) Paroxysmal per hospital records; not anticoagulated secondary to recurrent GI bleeds from chronic EtOH use Medical History Iron deficiency anemia due to chronic blood loss Hypomagnesemia Alcohol use disorder Acute upper gastrointestinal bleeding (~02/2022) Gastric ulcer Troponin level elevated Gout Colchicine preventionSleeping difficulty Melatonin RXPalliative care patient DobbertinInsomnia Radicular pain of right lower extremity GI bleed Tineo's esophagus Right knee pain UTI (urinary tract infection) Hematemesis Depression Renal insufficiency Smoking hx Surgical History H/O esophagogastroduodenoscopy (~04/2019) [place] [facility] [place] w/ non-bleeding esophageal ulcer Multiplle inflammatory appearing nodules at GEJ Social History/Home Situation: Patient lives alone in an apartment with 15 steps to get in with a rail on the right going up.?Independent with FWW for all mobility ADL performance.? No longer has a caregiver who comes in for 1-3 hours twice a week to do chores and laundry. He is otherwise able to prepare his own meals on other days.? Equipment Owned/DME: FWW, SPC SUBJECTIVE: Finally agreed to get out of bed today. Patient has been reluctant at moving and getting mobilized as he states that he has not had sleep the previous two nights. prefers not to go back to the [facility] although he said he had a productive time with them the last he transferred from here. Denied pain throughout today's session. OBJECTIVE: General Observation: Resting in bed.? IV access in L UE.? Mental Status: A & O x4 Pain: None reported ROM: Right Upper Extremity: ? Shoulder Flexion WFL. Shoulder abduction WFL. Elbow flexion WFL. Wrist flexion WFL. Functional opening and closing of hand WFL. Left Upper Extremity:? Shoulder Flexion WFL. Shoulder abduction WFL. Elbow flexion WFL. Wrist flexion WFL. Functional opening and closing of hand WFL. Right Lower Extremity: Hip flexion WFL. Hip abduction WFL. Knee flexion WFL. Ankle dorsiflexion to neutral only. Ankle plantarflexion WFL. Left Lower Extremity: Hip flexion WFL. Hip abduction WFL. Knee flexion WFL. Ankle dorsiflexion to neutral only. Ankle plantarflexion WFL. Strength: Right Upper Extremity: Shoulder flexors 4-/5. Shoulder abductors 4-/5. Elbow flexors 4-/5. Elbow extensors 4-/5. Wrecking Car Driver strong. Left Upper Extremity: Shoulder flexors 4-/5. Shoulder abductors 4-/5. Elbow flexors 4-/5. Elbow extensors 4-/5. Wrecking Car Driver strong. Right Lower Extremity: Hip flexors 4-/5. Hip abductors 4-/5. Knee flexors 4-/5. Knee extensors 4-/5. Ankle dorsiflexors 3-/5. Ankle plantarflexors 4-/5. Left Lower Extremity: Hip flexors 4-/5. Hip abductors 4-/5. Knee flexors 4-/5. Knee extensors 4-/5. Ankle dorsiflexors 3-/5. Ankle plantarflexors 4-/5. SENSATION: Intact as to pain and pressure in bilateral lower extremities BED MOBILITY/TRANSFERS: Minimal cueing provided for use of B hands as needed for support, movement sequence, AD management, and posture to reduce fall risk and minimize pain report Supine to sit stand by assist with HOB at 30 degrees Sit to stand stand by assist with FWW Stand to sit stand by assist with FWW GAIT: Facilitated safe and correct performance of level surface ambulation covering a distance of 200 feet using front wheeled walker with standby assist with slow reciprocal swing through gait pattern and good awareness of posture as well as safe AD management. Denied headache, chest pain, and lightheadedness throughout activity. Did request going back to bed readily because of beginning fatigue. STAIRS: Refused for today but would like to try later today or tomorrow BALANCE: Static sitting Normal Dynamic Sitting Good Static Standing Fair Dynamic Standing Fair Mobility Limitations Standardized Measure [facility] ? AM -PAC ? ?6 clicks? Basic Mobility Inpatient Short Form: Raw score: 23 ? CMS score: 11%? ? 4 Stage Balance Skye: Withheld per patient request due to fatigue Informed Consent/Education:? Patient was instructed in purpose of PT consult and plan of care. Agreeable to proceed with established PT POC to achieve personal goals. ASSESSMENT: ? Only stand by assist for all mobility ADL performance using FWW. Has equipment at home. Activity tolerance limited due to easy fatigueability but wored well with adequate rests and pre-medication for pain. Needs services to work on progressing mobility level to unassisted indoor ambulation adn outdoor ambulation using single point cane per prior level of function. Patient presents with clinical signs and symptoms consistent with current/admitting diagnoses that have resulted to mobility limitations, gait instability, generalized weakness, and impairment of motor control as demonstrated by the following impairment level findings: 1.? Decreased strength to B UE/LE major muscle groups 2.? Impaired sitting/standing balance Impairments are contributing to the following functional limitations: 1.? Inability to safely ambulate without physical assistance 2.? Increase completion time for mobility ADL performance 3.? Increased fall risk 4.? Inability to negotiate steps alone safely Patient is assessed as a 76784 moderate complexity based on the following: History: Patient is a 79-year-old male with a past medical history, impairment level findings, and functional limitations as listed above Examination: Demonstrable impairment in strength, balance, and range of motion as tested above Presentation: Evolving Decision Makin moderate complexity Goals: Goals X1 week 1. Supine-Sit independent 2. Sit-Supine independent 3. Sit-Stand independent with FWW 4. Stand-Sit independent with FWW 5. Bed-Chair independent with FWW 6. Chair-Bed independent with FWW 7. Independent gait on level surface with use of FWW for at least 300 feet without report of pain nor dyspnea 8. Independent stair negotiation while holding onto bilateral rails for at least 10 steps without report of pain nor dyspnea 9. Independent with home exercise program 10. Good static and dynamic standing balance/tolerance Plan of Care/Treatment Plan: 1-2x/day, 7 days/week x 1 week. Plan of care has been reviewed with the MEAT PACKER providing the service under Physical Therapy direction. Premedicate for pain due to chronic R leg and back pain. Initiate Physical Therapy intervention for pain management as needed, strengthening, bed mobility, transfers, gait, stairs, balance training, and use of assistive device. DISCHARGE RECOMMENDATIONS: Patient will benefit from home health PT services in order to progress mobility level using least restrictive assistive ambulatory device, assess home safety, identify additional equipment needs, and establish a functional maintenance program that will increase ability of patient to remain at home. TREATMENT CODE/TIME: 51284 x 20 minutes for 1 unit (8:48-9:08). Thank you for the opportunity to participate in the care of this patient. Franchesca Hawley PT, DPT, CLT [facility] [place], [place]
[2024-06-19] MEDS: Metoprolol CR 50 MG TABCR PO (08:49)
--- NOTE | 2024-06-19 14:26 | PGE_ITS ---
Date of Service Date of service: 06/19/24 Time of Service: 14:26 Assessment and Plan Assessment and plan (1) Upper GI bleed: Status: Acute Assessment and plan: -Presented with UGI bleed in the setting of known/ongoing EtOH use disorder -POD #2 s/p endoscopy with clipping of 2 ulcers, not actively bleeding at the time. -H/H stable AM 06/19 -No cirrhosis, no varicies, so will not continue octreotide. -TXA not indicated for UGI bleed per 2019 HALT-IT trial, and possible benefit is within 3 hour of bleeding onset. will not continue. -advancing diet as tolerated (2) CHF (congestive heart failure): Status: Chronic Assessment and plan: -Not in active CHF, contine to monitor. Qualifiers: Heart failure type: systolic Heart failure chronicity: acute Qualified Code(s): I50.21 - Acute systolic (congestive) heart failure (3) Tobacco abuse disorder: Status: Chronic Assessment and plan: -low level smoking. Declines NRT. Encouraged cessation. (4) Atrial fibrillation: Status: Chronic Assessment and plan: -He has not been anticoagulated. -He is back on metoprolol PO Qualifiers: Atrial fibrillation type: paroxysmal Qualified Code(s): I48.0 - Paroxysmal atrial fibrillation (5) CKD (chronic kidney disease) stage 3, GFR 30-59 ml/min: Status: Chronic Assessment and plan: Stable, monitor Qualifiers: Chronic kidney disease stage 3 subtype: stage 3b (GFR 30-44) Qualified Code(s): N18.32 - Chronic kidney disease, stage 3b (6) Alcohol use disorder: Assessment and plan: We have discussed need for cessation, states he will consider. Discussed medications and supports. (7) Hypomagnesemia: Assessment and plan: a/w ETOH, replace. (8) COPD (chronic obstructive pulmonary disease): Status: Chronic Assessment and plan: A little wheezey today, has albuterol prn. Qualifiers: COPD type: COPD with acute exacerbation Qualified Code(s): J44.1 - Chronic obstructive pulmonary disease with (acute) exacerbation (9) DVT prophylaxis: Status: Acute Assessment and plan: SCDs given GI bleed (10) Palliative care patient: Assessment and plan: consult for continuity Subjective Subjective Interval history since last seen: Patient sates that he is feeling better today and understands that his Hb level has remained stable. Exam Narrative Exam Narrative: well appearing older gentleman sitting up on the edge of the bed in no acute, distress, AOx4, heart irregularly irregular, abdomen soft, non-tender, non- distended Objective Last Vital Signs Temp 98.8 F 06/19/24 00:02 Pulse 66 06/19/24 09:06 Resp 25 H 06/19/24 09:06 BP 151/85 H 06/19/24 09:06 Pulse Ox 96 06/18/24 12:16 Laboratory Results - last 24 hr 06/19/24 05:40 WBC 6.76 RBC 4.02 L Hgb 11.2 L Hct 34.5 L MCV 86 MCH 27.9 MCHC 32.5 RDW 19.9 H Plt Count 124 L MPV 9.9 Sodium 141 Potassium 4.0 Chloride 103 Carbon Dioxide 31.3 Anion Gap 6.7 BUN 25 H Creatinine 1.5 H Est GFR (CKD-EPI 2020) 47.36 Glucose 137 H Calcium 8.7 Magnesium 1.7 L PAWSS Have you Been Recently Intoxicated or Drunk Within the Last 30 days?: No Have you Ever Experienced Previous Episodes of Alcohol Withdrawal?: No Have you ever Experienced Withdrawal Seizures?: No Have you ever Experienced Delirium Tremens(DT)s?: No Have you ever undergone Alcohol Rehabilitation Treatment (i.e, inpt ot outpatient treatment programs)?: Yes Have you ever Experienced Blackouts?: No Have you ever Combined Alcohol with other Downers within the last 90 days?: No Have you ever Combined Alcohol with any other Substance of Abuse during the last 90 days?: No Positive Blood Alcohol level on Presentation? [PCS.BAL]: No Evidence of Increased Autonomic Activity (i.e. HR>120, tremor, sweating, agitation, nausea)?: No Result: 1 Time Spent with Patient Time Spent with Patient: >50 minutes Time was spent: preparing to see the patient(eg.review tests), obtaining and/or reviewing separately otained hiistory, ordering medications,tests, procedures, referring, communicating with other health medicare sales representative, indepentently interpreting results, counseling the patient and care coordination
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
[2024-06-19] MEDS: Atorvastatin 40 MG TAB PO (21:01)
[2024-06-19] MEDS: Melatonin 3 MG TAB PO (21:02)
[2024-06-19] MEDS: Mirtazapine 15 MG TAB 7.5 MG PO (21:02)
--- NOTE | 2024-06-19 22:23 | W.PC.ACHO ---
Registration Status: Primary Language: Preferred Language: ED Information & Data Chief Complaint GI Bleed 06/17/24 01:33 Triage Note started coughing up blood 06/17/24 00:08 about 6 hours ago, describes as dark red color. weak, states he can hardly walk. hx of esophageal tear a few years back. denies thinners Medical / Surgical History Iron deficiency anemia due to chronic blood loss Hypomagnesemia Alcohol use disorder Acute upper gastrointestinal bleeding (~02/2022) Gastric ulcer Troponin level elevated Gout Sleeping difficulty Palliative care patient Insomnia Radicular pain of right lower extremity GI bleed Cooper's esophagus Right knee pain UTI (urinary tract infection) Hematemesis Depression Renal insufficiency Smoking hx (Last Reviewed 06/18/24 @ 16:19 by Sheridan Ndiaye NP) H/O esophagogastroduodenoscopy (~05/2019) Most Recent Vital Signs Temperature 36.7 C 06/19/24 21:34 Temperature Source Temporal Artery Scan 06/19/24 21:34 Pulse 81 06/19/24 21:34 Pulse 88 06/19/24 21:09 Respiratory Rate 18 06/19/24 21:09 Respiratory Effort Normal, Non-Labored 06/17/24 00:19 Respiratory Pattern Normal 06/17/24 11:54 Blood Pressure 122/75 06/19/24 21:34 Blood Pressure Mean 78 06/19/24 21:09 Blood Pressure Position Sitting 06/17/24 00:08 Pulse Oximetry 98 06/19/24 21:34 Oxygen Delivery Method Room Air 06/19/24 21:34 Oxygen Flow Rate 0 06/19/24 21:34 Pain Level 0 06/19/24 21:34 Allergies bupropion Adverse Reaction (Severe, Verified 06/17/24 00:23) seizures 09/02/20- pt reports he fell, Nobody ever told me I had seizures Precautions Isolation Standard precaution 06/17/24 00:19 Active Medications Generic Name Dose Route Start Last Admin Trade Name Freq PRN Reason Stop Dose Admin Amlodipine Besylate 5 mg 06/19/24 08:30 06/19/24 08:23 Amlodipine 5 Mg Tab PO 5 mg DAILY SHANICE Administration Atorvastatin Calcium 40 mg 06/18/24 20:00 06/19/24 21:01 Atorvastatin 40 Mg Tab PO 40 mg HS SHANICE Administration Folic Acid 1 mg 06/18/24 08:30 06/19/24 08:23 Folic Acid 1 Mg Tab PO 06/24/24 08:31 1 mg QAM SHANICE Administration Lorazepam 0 mg 06/17/24 05:57 06/18/24 09:57 Lorazepam 2 Mg/Ml Vial IVP 1 mg DIRECTED PRN Administration Melatonin 3 mg 06/18/24 20:00 06/19/24 21:02 Melatonin 3 Mg Tab PO 3 mg HS SHANICE Administration Metoprolol Succinate 50 mg 06/19/24 08:30 06/19/24 08:49 Metoprolol Cr 50 Mg Tabcr PO 50 mg DAILY SHANICE Administration Mirtazapine 7.5 mg 06/18/24 20:00 06/19/24 21:02 Mirtazapine 15 Mg Tab PO 7.5 mg HS SHANICE Administration Multivitamins 1 tab 06/18/24 08:30 06/19/24 08:24 Multivitamin Tab PO 06/24/24 08:31 1 tab QAM SHANICE Administration Pantoprazole Sodium 40 mg 06/18/24 20:00 06/19/24 21:02 Pantoprazole 40 Mg Vial IVP 40 mg BID SHANICE Administration Sodium Chloride 0 ml 06/17/24 05:57 06/19/24 01:20 Normal Saline Flush 10 Ml Syr IVP 20 ml PRN PRN Administration Sodium Chloride 0 ml 06/17/24 08:30 06/19/24 21:03 Normal Saline Flush 10 Ml Syr IVP 20 ml BID SHANICE Administration Tamsulosin HCl 0.8 mg 06/19/24 08:30 06/19/24 08:24 Tamsulosin 0.4 Mg Capcr PO 0.8 mg DAILY SHANICE Administration Thiamine HCl 100 mg 06/18/24 08:30 06/19/24 08:22 Thiamine 100 Mg Tab PO 06/24/24 08:31 100 mg QAM SHANICE Administration IV IV Catheter Type [Left Forearm Saline Lock ] IV Catheter Type [Right Peripheral IV Antecubital] IV Catheter Type [Left Peripheral IV Antecubital] IV Catheter Type [Right Hand] Peripheral IV IV Catheter Type [Right Peripheral IV Forearm] IV Catheter Gauge [Left 18 Forearm] IV Catheter Gauge [Right 18 Antecubital] IV Catheter Gauge [Left 18 Antecubital] IV Catheter Gauge [Right Hand] 20 IV Catheter Gauge [Right 20 Forearm] Diagnostics 06/19/24 Range/Units 05:40 WBC 6.76 (4.4-10.8) 10^3/uL RBC 4.02 L (4.36-5.78) 10^6/uL Hgb 11.2 L (13.5-17.5) g/dL Hct 34.5 L (40.0-50.0) % MCV 86 (80-95) fL MCH 27.9 (27.0-33.0) pg MCHC 32.5 (32.0-36.0) % RDW 19.9 H (11.8-14.1) % Plt Count 124 L (130-400) 10^3/uL MPV 9.9 (8.0-11.0) fL Sodium 141 (136-145) mmol/L Potassium 4.0 (3.5-5.1) mmol/L Chloride 103 (98-107) mmol/L Carbon Dioxide 31.3 (21.0-32.0) mmol/L Anion Gap 6.7 (3-11) mmol/L BUN 25 H (7-18) mg/dL Creatinine 1.5 H (0.70-1.30) mg/dL Est GFR (CKD-EPI 2020) 47.36 (mL/min/1.73m2) Glucose 137 H (74-106) mg/dL Calcium 8.7 (8.5-10.1) mg/dL Magnesium 1.7 L (1.8-2.4) mg/dL Intake and Output - 24 Hour Total 06/17/24 00:05 thru 06/19/24 17:55 Intake Total 7086.367 Output Total 3335 Balance 3751.367 Weight 63.2 kg Intake: IV 5221.367 Oral 1565 Blood Product 300 Rbc Leuko Reduced Unit 300 [id number] Output: Urine 3335 Other: Urine Color Yellow Urine Appearance Clear Urine Odor Normal Comment Pt reports urinary incontinence. Stool Size Smear Stool Characteristics Soft Emesis Description Retching Blood Tinged Mucous Voiding Methods Urinal Falls Risk Assessment History of Falls Previous History 06/17/24 00:20 Contributing Factors Impairments 06/17/24 00:20 Ambulatory Aids Uses ambulatory device + 06/17/24 00:20 Tubes/Lines With any additional score 06/17/24 00:20 Gait Evaluation W/any additional score 06/17/24 00:20 Cognition No cognitive impairment 06/17/24 00:20 Fall Total Score 88 06/17/24 00:20 Level of Risk Maximum Risk 06/17/24 00:20 Problems (Last Reviewed 06/18/24 @ 16:19 by Sheridan Ndiaye NP) DVT prophylaxis (Acute) Atherosclerosis of abdominal aorta (Acute) Iliac artery stenosis, bilateral (Acute) Coronary artery calcification seen on CAT scan (Acute) Fatty liver disease, nonalcoholic (Acute) Hiatal hernia (Chronic) Upper GI bleed (Acute) Acute kidney injury (Acute) Acute hyperkalemia (Acute) Gastrointestinal hemorrhage with hematemesis (Acute) CKD (chronic kidney disease) stage 3, GFR 30-59 ml/min (Chronic) Tobacco abuse disorder (Chronic) CHF (congestive heart failure) (Chronic ~02/2023) COPD (chronic obstructive pulmonary disease) (Chronic) Atrial fibrillation (Chronic) Notes 06/18/24 03:07 Nursing Notes by Oksana Cerda Nursing Note: discussed with pt the order for one more unit ot blood and pt replied that he had recieved a unit downstairs and then they checked his bloodwork and the came back in and told him his H&H had come up so he didnt need another unit. Teachers Aide Zoya notified of this. Georges RN Initialized on 06/18/24 03:07 - END OF NOTE 06/17/24 11:35 Nursing Notes by Alyssa Chacon Nursing Note: Pt refused PO Tylenol and PO Benadryl for pre-medication prior to blood product administration. Pt states he has never had a reaction to blood products in the past. Initialized on 06/17/24 11:35 - END OF NOTE 06/17/24 10:17 Nursing Notes by Alyssa Chacon Nursing Note: Baseline lung sounds assessed prior to starting blood transfusion. Rhonchi noted throughout LT lobe during inspiration and expiration. Rhonchi noted in RT lower lobe; diminished LS RLL. Initialized on 06/17/24 10:17 - END OF NOTE v v v v v v v v v Sending and/or Receiving Nurses: Please use comment section below to note any information pertinent to the patient hand-off not included above. Information / Comments: Patient had a surgery yesterday with two clips placed in stomach for ulcer bleed. patient walked with PT 2x today. Vitals are stable. Patient has history of CHF, with cough sounding more wet today than previously. Patient has expiratory wheezing moving throughout the lung collnis. Patient is saturating in the mid ninty's on room air. Report received from:Alysha Torres RN
[2024-06-20 07:17] LABS: HGB 11.1 g/dL (13.5-17.5); MCH 28.2 pg (27.0-33.0); MCHC 32.6 % (32.0-36.0); MCV 86 fL (80-95); MPV 10.7 fL (8.0-11.0); Platelet Count 121 10^3/uL (130-400); RBC 3.94 10^6/uL (4.36-5.78); RDW-SD 65.3 fL; WBC 5.09 10^3/uL (4.4-10.8)
[2024-06-20 07:28] LABS: Anion Gap 3.2 mmol/L (3-11); BUN 29 mg/dL (7-18); CO2 32.8 mmol/L (21.0-32.0); CREATININE 1.6 mg/dL (0.70-1.30); Calcium 8.6 mg/dL (8.5-10.1); Chloride 102 mmol/L (98-107); Estimated GFR 43.83 (mL/min/1.73m2); Glucose 124 mg/dL (74-106); Potassium 4.1 mmol/L (3.5-5.1); Sodium 138 mmol/L (136-145)
[2024-06-20 07:38] LABS: RDW 20.1 % (11.8-14.1)
[2024-06-20 08:03] VITALS: BP 132/88; PULSE 84; RESP 19; TEMP 36; O2SAT 97
[2024-06-20] MEDS: Normal Saline Flush 10 ML SYR IVP (09:20)
[2024-06-20] MEDS: Normal Saline 10 ML VIAL IJ (09:21)
[2024-06-20] MEDS: Pantoprazole 40 MG VIAL IVP (09:21)
[2024-06-20] MEDS: Thiamine 100 MG TAB PO (09:29)
[2024-06-20] MEDS: Metoprolol CR 50 MG TABCR PO (09:29)
[2024-06-20] MEDS: Folic Acid 1 MG TAB PO (09:29)
[2024-06-20] MEDS: Multivitamin TAB 1 TAB PO (09:29)
[2024-06-20] MEDS: Tamsulosin 0.4 MG CAPCR 0.8 MG PO (09:29)
[2024-06-20] MEDS: amLODIPine 5 MG TAB PO (09:30)
--- NOTE | 2024-06-20 10:14 | PT.INTREAT ---
PT Notes Visit Reasons: UGI Bleed Inpatient Physical Therapy Treatment Note [facility] Date: 06/20/24 PRECAUTIONS:Standard SUBJECTIVE: Pt reports that after walking with the cane he does not feel he is safe and needs to practice more with the walker. OBJECTIVE: ? Therapeutic Activities (33028s[]): Direct one-on-one instruction in dynamic activities to improve functional performance. ? BED MOBILITY/TRANSFERS? Supine-sit: SBA? Sit-supine: SBA ? Sit-stand: SBA? Stand-sit: SBA ? Provided skilled cues and instruction on performance and technique throughout. Gait Training (25305a[]): Direct one-on-one instruction and skilled instruction in: GAIT? Assistive Device: Cane to door and back then did not feel comfortable so utilized FWW? Weight bearing: Full Assist: CGA? Distance:? Approx 300ft? Therapeutic Exercises (12367d[]): Direct one-on-one instruction in therapeutic exercises to develop strength, endurance, range of motion and flexibility. ? Exercises ? Rowing x 10 LAQ x 10 ? ASSESSMENT:? Pt has a schedule of what he would like to accomplish and is very motivated to do what he feels he can when he is ready. Pt did well with the cane and was safe but he did not feel comfortable with the cane right now and would like to ease into it and use the walker more for now. PLAN: Cont as per PT POC. TREATMENT CODE/TIME: 9:50-10:10 (20) TA DISCHARGE RECOMMENDATION: []
--- NOTE | 2024-06-20 13:49 | PDOC.CMDIS ---
Date of service: 06/20/24 Time of Service: 13:49 LACE Index Scoring Tool Questions: Length of Stay (in days): 3 Was the patient admitted via the E.D.?: Yes Comorbidities: Congestive Heart Failure, Chronic Pulmonary Disease and Liver or Renal Disease E.D. Visits: 3 Answers: Total Score: 14 Risk of Readmission: High Risk Care Management Discharge Plan Reason for Hospitalization: UGI Bleed Discharge Plan: Rufino will return home today with new orders for HH PT. CM coordinated transport home via [facility] private vehicle. He will follow up with his PCP and discharge plan of care. He is agreeable to going home. Patient/Family Education Needs: Review discharge instructions and limitations, discussion of self care needs including ask me three. Services Needed at Discharge: Home Health Care Services (HH PT) and Transportation ([facility] private vehicle) SDOH Health Related Social Needs: Health related social needs risk of homeless, transpo insecurity, personal safety Health related social needs: housing instability, housed, with risk of homelessness(Z59.811), transportation insecurity(Z59.82) and problem related to primary support group(Z63.9) Referrals and interventions: Rufino is connected with [facility]; he utilizes [employer] and [employer] for transportation. He stated that he has stable housing in his apartment, which he enjoys, and has no plan to move at this time. He expressed that he and his son had an argument recently, and that he does not want him involved in his health care at this time, but his brother, Owen, is very supportive.
--- NOTE | 2024-06-20 14:33 | PDOC.HHF2F ---
Home Health Referral Home Health Orders Clinical synopsis of why skilled professionals are needed: Upper GI bleed Registered Nurse: Check all that apply Instruct on new or changed medication(s)/assess compliance: Ordered Assess for exacerbation of medical condition, instruct patient/caregivers on signs and symptoms to report for early detection: Ordered Other: CBC w diff, CMP and Mag Saturday03/12/2023 - results to PCP Dehydration E86.0 Anemia D64.9 COPD J44.9 Weakness R53.1 Physical Therapist: Check all that apply Increase strength & endurance for safe mobility at home: Ordered To design/establish home maintenance program: Ordered Fall reduction therapy program for patient with history of frequent falls: Ordered Home safety evaluation and teaching/gait training including stair management (if applicable): Ordered Occupational Therapist: Evaluate and treat for patient unable to perform ADL/IADL/self-care: Ordered Intelligence Research Specialist: Assist with community resources: Ordered Assist with halfway care planning: Ordered Home Bound Status Requires the aid of supportive device (check all that apply): Walker Encounter Date and Reason: I certify that a FTF encounter for this patient was performed on June 20, 2024 and that such encounter was related to the primary reason the patient requires home health services. The encounter was conducted in the following manner: By me as the certifying physician, CHIEF DATA OFFICER, PA or By an inpatient physician, CHIEF DATA OFFICER or PA during an inpatient stay who communicated findings to me, Certification And Authentication I certify that I composed the above information based on my clinical judgment relating to this patient's medical condition and, if applicable, clinical findings communicated to me by the NPP or inpatient physician who performed the FTF encounter. Name of Provider that will be monitoring home health services: Desirae Panda
--- NOTE | 2024-06-20 14:34 | W.PM.DS.N ---
Date of service: 06/20/24 Time of Service: 14:34 DS: Diagnosis Discharge Diagnosis (1) Upper GI bleed: Status: Acute Asessment and Plan: -Presented with UGI bleed in the setting of known/ongoing EtOH use disorder -POD #3 s/p endoscopy with clipping of 2 ulcers, not actively bleeding at the time. -H/H stable AM 06/19 -No cirrhosis, no varicies, so will not continue octreotide. -TXA not indicated for UGI bleed per 2019 HALT-IT trial, and possible benefit is within 3 hour of bleeding onset. will not continue. -patient tolerated advancing diet (2) CHF (congestive heart failure): Status: Chronic Asessment and Plan: -without acute exacerbation (3) Tobacco abuse disorder: Status: Chronic Asessment and Plan: -low level smoking. Declines NRT. Encouraged cessation. (4) Atrial fibrillation: Status: Chronic Asessment and Plan: -He has not been anticoagulated. -He is back on metoprolol PO (5) CKD (chronic kidney disease) stage 3, GFR 30-59 ml/min: Status: Chronic (6) Alcohol use disorder: Asessment and Plan: discussed need for cessation, states he will consider. Discussed medications and supports. (7) Hypomagnesemia: (8) COPD (chronic obstructive pulmonary disease): Status: Chronic (9) DVT prophylaxis: Status: Acute (10) Palliative care patient: Discharge Plan Disposition Patient Disposition: Home W/Home Health Services Condition: Good Discharge Details Reason For Visit: UGI Bleed Admit Date/Time: 06/17/24 07:18 Admit Provider: Crescencio Maradiaga Attending Provider: Crescencio Maradiaga Primary Care Provider: Desirae Panda Hospital Course Hospital Course: Patient initially presented to the ED with repeated episodes of bloody vomitus that turned coffee-ground. Determined that he was experiencing an upper GI bleed for which she had an EGD resulting in clipping of 2 ulcers that were not actively bleeding. Stool was in the low sevens and he was given 1 unit of packed red blood cells on admission since that time his hemoglobin remained stable. He slowly had his diet advanced without additional signs of GI bleed, abdominal pain, or decrease in hemoglobin. Given the patient was tolerating a regular diet, and he worked with physical therapy and determined to benefit from home health was determined that he was stable for discharge home. 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 Take with food. docusate sodium [Colace] 100 mg capsule 100 mg PO BID Qty: 30 0RF magnesium oxide 500 mg magnesium tablet 500 mg PO BID multivitamin with iron Tablet 1 tab PO DAILY mirtazapine 7.5 mg tablet 7.5 mg PO QHS cetirizine 5 mg tablet 5 mg PO DAILY PRN amlodipine 5 mg tablet 5 mg PO DAILY acetaminophen 325 mg capsule 650 mg PO Q6H PRN PRNQty: 90 0RF atorvastatin 40 mg Tablet 40 mg PO HS Qty: 30 0RF ferrous sulfate 325 mg (65 mg iron) Tablet 325 mg PO 0600,1800 Qty: 60 0RF melatonin 3 mg Tablet 3 mg PO HS Qty: 30 0RF metoprolol succinate 50 mg Tablet Extended Release 24 Hr 50 mg PO DAILY Qty: 60 0RF nicotine 21 mg/24 hr Patch 24 Hour 21 mg transdermal DAILY PRN PRNQty: 30 0RF polyethylene glycol 3350 17 gram Powder In Packet 17 g PO DAILY PRN PRN (Reason: Constipation) Qty: 30 0RF tamsulosin 0.4 mg Capsule 0.8 mg PO DAILY Qty: 60 0RF thiamine HCl (vitamin B1) 100 mg tablet 100 mg PO DAILY Lawanda-Elva 0.8 mg tablet 1 tab PO DAILY Patient Comments: TAKE ONE TABLET BY MOUTH EVERY DAY magnesium gluconate [Mag-G] 27 mg magnesium (500 mg) tablet 27 mg PO DAILY Changed pantoprazole 40 mg tablet,delayed release (DR/EC) 40 mg PO BID Qty: 90 3RF Rx Instructions: GI bleed Discharge Instructions Stand Alone Forms: Nursing Discharge Form Referrals: Desirae Panda BENDER MACHINE OPERATOR [Primary Care Provider] - (Please call the office on Saturday to set up a hospital follow up within 7-10 days) Activity:: Activity as Tolerated Equipment/Supplies:: No Equipment Needed Diet:: As Tolerated Discharge Orders Discharge Orders: Discharge Order (Routine); Ordered 06/20/24 Ordered By: Stefano Jhaveri DS: Summary Time Spent with Patient providing and/or coordinating discharge services: Greater than 30 minutes Status at Discharge Functional status at discharge: independent ambulation Overall status at discharge: patient is back to baseline Mental Status: mental status grossly normal Speech and Movement: speech and movement normal Mood: congruent mood Affect: normal affect Quality:SDOH Health Related Social Needs: Health related social needs risk of homeless, transpo insecurity, personal safety Referrals and interventions: Rufino is connected with [facility]; he utilizes [employer] for transportation. He stated that he has stable housing in his apartment, which he enjoys, and has no plan to move at this time. He expressed that he and his son had an argument recently, and that he does not want him involved in his health care at this time, but his brother, Owen, is very supportive. Exam Narrative Exam Narrative: well appearing older gentleman sitting up on the edge of the bed in no acute, distress, AOx4, heart irregularly irregular, abdomen soft, non-tender, non-distended Psych Mental Status: mental status grossly normal Speech and Movement: speech and movement normal Mood: congruent mood Affect: normal affect DS: Data Vitals/I&O Vitals and I&O: Vital Signs Temperature 96.8 F L 06/20/24 08:03 Temperature Source Tympanic 06/20/24 08:03 Pulse 84 06/20/24 08:03 Pulse 88 06/19/24 21:09 Respiratory Rate 19 06/20/24 08:03 Respiratory Effort Normal, Non-Labored 06/17/24 00:19 Respiratory Pattern Normal 06/17/24 11:54 Blood Pressure 132/88 06/20/24 08:03 Blood Pressure Mean 78 06/19/24 21:09 Blood Pressure Position Sitting 06/17/24 00:08 Pulse Oximetry 97 06/20/24 08:03 Oxygen Delivery Method Room Air 06/20/24 08:03 Oxygen Flow Rate 0 06/20/24 08:03 Pain Level 0 06/20/24 08:03 Intake & Output 06/19/24 06/20/24 06/20/24 17:59 05:59 17:59 Intake Total 1696.667 / 1696.667 360 / 2056.667 Output Total 450 / 450 100 / 550 250 / 250 Balance 1246.667 / 1246.667 260 / 1506.667 -250 / -250 Weight 139 lb 5.314 oz Intake: IV 976.667 / 976.667 20 / 996.667 Oral 720 / 720 340 / 1060 Output: Urine 450 / 450 100 / 550 250 / 250 Other: Urine Color Yellow Yellow Yellow Urine Appearance Clear Clear Clear Urine Odor Normal Normal Normal Voiding Methods Urinal Urinal Data Completed and Pending Labs on day of discharge: Labs from last 24 hours 06/20/24 06/20/24 Unknown 06:38 WBC Cancelled 5.09 RBC Cancelled 3.94 L Hgb Cancelled 11.1 L Hct Cancelled 34.0 L MCV Cancelled 86 MCH Cancelled 28.2 MCHC Cancelled 32.6 RDW Cancelled 20.1 H Plt Count Cancelled 121 L MPV Cancelled 10.7 Sodium 138 Potassium 4.1 Chloride 102 Carbon Dioxide 32.8 H Anion Gap 3.2 BUN 29 H Creatinine 1.6 H Est GFR (CKD-EPI 2020) 43.83 Glucose 124 H Calcium 8.6 PFSH All Active Problems DVT prophylaxis (Acute) Atherosclerosis of abdominal aorta (Acute) Iliac artery stenosis, bilateral (Acute) Coronary artery calcification seen on CAT scan (Acute) Fatty liver disease, nonalcoholic (Acute) Hiatal hernia (Chronic) Upper GI bleed (Acute) Acute kidney injury (Acute) Acute hyperkalemia (Acute) Gastrointestinal hemorrhage with hematemesis (Acute) Delirium due to multiple etiologies (Acute) Anemia, chronic disease (Acute) CKD (chronic kidney disease) stage 3, GFR 30-59 ml/min (Chronic) Falls frequently (Acute) Blunt head trauma (Acute) Blunt trauma of multiple sites of trunk (Acute) Fall (Acute) Impaired gait and mobility (Acute ~03/2023) Hyperlipidemia (Chronic) Tobacco abuse disorder (Chronic) Cut down 1/2PPD Personal history of noncompliance with medical treatment and regimen (Chronic) Alcoholic liver disease (Chronic) Anemia (Chronic ~02/2022) S/P GI bleed CHF (congestive heart failure) (Chronic ~02/2023) ECHO 02/2022 LVEF 45-50% Depression (Chronic) Plans on getting connected to social work Tineo's esophagus (Chronic ~04/2019) ETOH; Upper endoscopy 03/2019 (see path report--no tineo's?, but 08/15/2019 surg note says +tineo's) Weakness (Acute) LE weakness; Home PT Urinary retention (Chronic) Dr. Ramos COPD (chronic obstructive pulmonary disease) (Chronic) Atrial fibrillation (Chronic) Paroxysmal per hospital records; not anticoagulated secondary to recurrent GI bleeds from chronic EtOH use Medical History Iron deficiency anemia due to chronic blood loss Hypomagnesemia Alcohol use disorder Acute upper gastrointestinal bleeding (~02/2022) Gastric ulcer Troponin level elevated Gout Colchicine prevention Sleeping difficulty Melatonin RX Palliative care patient [place] Insomnia Radicular pain of right lower extremity GI bleed Tineo's esophagus Right knee pain UTI (urinary tract infection) Hematemesis Depression Renal insufficiency Smoking hx Surgical History H/O esophagogastroduodenoscopy (~05/2019) [place] [facility] [place] w/ non-bleeding esophageal ulcer. Multiplle inflammatory appearing nodules at [facility] Social History Smoking/Tobacco Use Status: Current every day Tobacco Type: cigarettes Years smoked: 50 Smoking risk assessment performed?: Yes Alcohol Intake: current Alcohol Intake frequency: 3 or more drinks per day Alcohol type: hard liquor Drug use: Never Substance use type: does not use Details: Pt has not had alcohol since being at the [facility]. 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
--- NOTE | 2024-06-20 18:48 | NUR.NOTE ---
Discharge Education paperwork reviewed with patient, patient verbalized understanding of all teaching utilizing the teach back method. All questions answered. All belongings sent home with patient. PIV's removed. Stable at time of discharge.
--- NOTE | 2024-06-20 18:50 | NUR.NOTE ---
Due Diligence Coordinator reviewed and is in agreement with Chastity Boyd LPN's documentation.
== END 2024-06-20 14:55 | disposition home health service (06) | DRG 378 ==
LOC: ER 07:49 → EDHOLD 07:53 → ICU 13:21 → MS 06-19 21:32
PROVIDERS: Family Medicine; Surgery; Admitting Provider General Practice; Emergency Provider Student in an Organized Health Care Education/Training Program; PCP Nurse Practitioner Adult Health; Visit Provider General Practice
PROC: 0DJ68ZZ Inspection of Stomach, Via Natural or Artificial Opening Endoscopic (ICD-10-PCS; CPT 43235; principal; 2024-06-17 10:00)
DX: K25.4 Chronic or unspecified gastric ulcer with hemorrhage (principal); I50.22 Chronic systolic (congestive) heart failure; N17.9 Acute kidney failure, unspecified; J44.1 Chronic obstructive pulmonary disease with (acute) exacerbation; D50.0 Iron deficiency anemia secondary to blood loss (chronic); K22.70 Barrett's esophagus without dysplasia; E87.5 Hyperkalemia; E83.42 Hypomagnesemia; E83.51 Hypocalcemia; F10.10 Alcohol abuse, uncomplicated; E78.5 Hyperlipidemia, unspecified; R26.9 Unspecified abnormalities of gait and mobility; F17.210 Nicotine dependence, cigarettes, uncomplicated; R29.6 Repeated falls; F32.A Depression, unspecified; R53.1 Weakness; R33.9 Retention of urine, unspecified; I48.0 Paroxysmal atrial fibrillation; G47.00 Insomnia, unspecified; N18.32 Chronic kidney disease, stage 3b; K70.9 Alcoholic liver disease, unspecified
CPT/HCPCS: 43255; 00123; 36415; 71250; 80048; 80053; 80076; 85027; 86850; 86900; 86901; 86920; 93005; 94640; 96365; 96366; 96367; 96368; 96375; 96376; 97162; 97530; 99291; 74176; 80320; 82310; 82728; 82977; 83605; 83735; 84484; 85014; 85018; 85025; 85610; 85730; 86140; 93010; 99222; 99233; 99239; J0612; J1100; J1815; J2001; J2060; J2354; J2371; J2405; J2470; J2543; J2704; J2765; J3411; J3475; J7613; P9016

== ENCOUNTER 2024-12-09 18:23 | Emergency (ER) | payer MEDICARE, OTHER, SELFPAY ==
[2024-12-09] VITALS (43 sets, daily range): BP systolic 105–132; BP diastolic 39–88; PULSE 70–110; RESP 13–24; TEMP 35.9; O2SAT 88–99
--- NOTE | 2024-12-09 18:15 | RT.EKG_ITS ---
APPROVED REPORT Exam: Resting ECG Reason for Exam: SOB Patient Location: E HR:101 bpm ECG Measurements Heart Rate 101 AXIS WA [id number] P [id number] QRSd 80 QRS 110 QT 369 T 58 QTc 479 Conclusion Atrial fibrillation...V-rate 77-133, irreg A-activity Right axis deviation...QRS axis ( 91,269) Low voltage, precordial leads...precordial leads <1.0mV
--- NOTE | 2024-12-09 18:44 | ED.GENADUL_ITS ---
Discharge Plan Discharge Details Chief Complaint: AMS/LOC Primary Care Provider: Desirae Panda ED Provider: Barbara Gastelum Home Meds and New Rx's Prescriptions: No Action docusate sodium [Colace] 100 mg capsule 100 mg PO BID Qty: 30 0RF amlodipine 5 mg tablet 5 mg PO DAILY Qty: 30 0RF atorvastatin 40 mg tablet 40 mg PO HS Qty: 30 0RF metoprolol succinate 50 mg tablet extended release 24 hr 50 mg PO DAILY Qty: 30 0RF mirtazapine 7.5 mg tablet 7.5 mg PO QHS Qty: 30 0RF multivitamin with iron Tablet 1 tab PO DAILY Qty: 30 0RF tamsulosin 0.4 mg capsule 0.8 mg PO DAILY Qty: 60 0RF thiamine HCl (vitamin B1) 100 mg tablet 100 mg PO DAILY Qty: 30 0RF levalbuterol tartrate 45 mcg/actuation HFA aerosol inhaler 1 - 2 puff INHALATION Q4H Qty: 15 3RF Rx Instructions: RESCUE INHALER loratadine 10 mg tablet 10 mg PO DAILY PRN (Reason: allergy symptoms) Qty: 90 3RF Rx Instructions: allergies & itchy eyes acetaminophen 325 mg capsule 650 mg PO Q6H PRN PRNQty: 90 0RF ferrous sulfate 325 mg (65 mg iron) Tablet 325 mg PO 0600,1800 Qty: 60 0RF melatonin 3 mg Tablet 3 mg PO HS Qty: 30 0RF nicotine 21 mg/24 hr Patch 24 Hour 21 mg transdermal DAILY PRN PRNQty: 30 0RF polyethylene glycol 3350 17 gram Powder In Packet 17 g PO DAILY PRN PRN (Reason: Constipation) Qty: 30 0RF Lawanda-Elva 0.8 mg tablet 1 tab PO DAILY Patient Comments: TAKE ONE TABLET BY MOUTH EVERY DAY magnesium gluconate [Mag-G] 27 mg magnesium (500 mg) tablet 27 mg PO DAILY pantoprazole 40 mg tablet,delayed release (DR/EC) 40 mg PO BID Qty: 90 3RF Rx Instructions: GI bleed HPI General Mode of arrival: EMS . Date/Time Provider Initiated Documentation: 12/09/24 18:24 . Limitations to Documentation: altered mental status . Information obtained by: patient, EMS, RN notes reviewed and old records reviewed . HPI Narrative: 79-year-old male presents to the ER via EMS with a chief complaint of shortness of breath. Patient states that his friend called 911. Also report is that he is altered. He does appear to be intoxicated with slurred speech. He does endorse beer today. He denies any drugs or smoking. He also reports that he is fallen but cannot give the details to that. He does have some to supplement. Past medical history includes failure to thrive iron deficiency anemia hypomagnesemia alcohol use disorder GI bleeding Tineo's esophagus UTI depression renal insufficiency. Currently has been somewhat uncooperative and is refusing blood work because he does not want to. Related Data Home Medications ?Medication ?Instructions ?Recorded ?Confirmed acetaminophen 325 mg capsule 650 mg (2 x 325 mg) PO Q6H PRN PRN 04/14/24 12/09/24 #90 caps ferrous sulfate 325 mg (65 mg 325 mg PO 0600,1800 #60 tabs 04/14/24 12/09/24 iron) tablet melatonin 3 mg tablet 3 mg PO HS #30 tabs 04/14/24 12/09/24 nicotine 21 mg/24 hr daily 21 mg transdermal DAILY PRN PRN 04/14/24 12/09/24 transdermal patch #30 ea polyethylene glycol 3350 17 gram 17 g PO DAILY PRN PRN Constipation 04/14/24 12/09/24 oral powder packet #30 ea docusate sodium 100 mg capsule 100 mg PO BID #30 caps 05/14/24 12/09/24 (Colace) magnesium gluconate 27 mg 27 mg PO DAILY 06/17/24 12/09/24 magnesium (500 mg) tablet (Mag-G) vitamin B complex-vitamin C-folic 1 tab PO DAILY 06/17/24 12/09/24 acid 0.8 mg tablet (Lawanda-Elva) pantoprazole 40 mg tablet,delayed 40 mg PO BID #90 tabs 06/20/24 12/09/24 release amlodipine 5 mg tablet 5 mg PO DAILY #30 tabs 07/16/24 12/09/24 atorvastatin 40 mg tablet 40 mg PO HS #30 tabs 07/16/24 12/09/24 levalbuterol tartrate 45 1 - 2 puff inhalation Q4H #15 grams 07/16/24 12/09/24 mcg/actuation aerosol inhaler metoprolol succinate 50 mg 50 mg PO DAILY #30 tabs 07/16/24 12/09/24 tablet,extended release 24 hr mirtazapine 7.5 mg tablet 7.5 mg PO QHS #30 tabs 07/16/24 12/09/24 multivitamin with iron 1 tab PO DAILY #30 tabs 07/16/24 12/09/24 tamsulosin 0.4 mg capsule 0.8 mg (2 x 0.4 mg) PO DAILY #60 07/16/24 12/09/24 caps thiamine HCl (vitamin B1) 100 mg 100 mg PO DAILY #30 tabs 07/16/24 12/09/24 tablet loratadine 10 mg tablet 10 mg PO DAILY PRN allergy 08/05/24 12/09/24 symptoms #90 tabs Previous Rx's ?Medication ?Instructions ?Recorded acetaminophen 325 mg capsule 650 mg (2 x 325 mg) PO Q6H PRN PRN 04/14/24 #90 caps ferrous sulfate 325 mg (65 mg 325 mg PO 0600,1800 #60 tabs 04/14/24 iron) tablet melatonin 3 mg tablet 3 mg PO HS #30 tabs 04/14/24 nicotine 21 mg/24 hr daily 21 mg transdermal DAILY PRN PRN 04/14/24 transdermal patch #30 ea polyethylene glycol 3350 17 gram 17 g PO DAILY PRN PRN Constipation 04/14/24 oral powder packet #30 ea docusate sodium 100 mg capsule 100 mg PO BID #30 caps 05/14/24 (Colace) pantoprazole 40 mg tablet,delayed 40 mg PO BID #90 tabs 06/20/24 release amlodipine 5 mg tablet 5 mg PO DAILY #30 tabs 07/16/24 atorvastatin 40 mg tablet 40 mg PO HS #30 tabs 07/16/24 levalbuterol tartrate 45 1 - 2 puff inhalation Q4H #15 grams 07/16/24 mcg/actuation aerosol inhaler metoprolol succinate 50 mg 50 mg PO DAILY #30 tabs 07/16/24 tablet,extended release 24 hr mirtazapine 7.5 mg tablet 7.5 mg PO QHS #30 tabs 07/16/24 multivitamin with iron 1 tab PO DAILY #30 tabs 07/16/24 tamsulosin 0.4 mg capsule 0.8 mg (2 x 0.4 mg) PO DAILY #60 07/16/24 caps thiamine HCl (vitamin B1) 100 mg 100 mg PO DAILY #30 tabs 07/16/24 tablet loratadine 10 mg tablet 10 mg PO DAILY PRN allergy 08/05/24 symptoms #90 tabs Allergies Allergy/AdvReac Type Severity Reaction Status Date / Time bupropion AdvReac Severe seizures Verified 12/09/24 18:46 General JENNA: 3 Review of Systems Unobtainable due to mental condition Exam Const General: disheveled, frail appearing and intoxicated appearing Nutritional Appearance: malnourished and thin Orientation: awake and confused Limitations: altered mental status and behavioral limitations Resp Effort & Inspection: able to speak in complete sentences Auscultation: rhonchi lower bilaterally Cardio Palpation: normal PMI Rate: regular rate Heart Sounds: S1 normal and S2 normal GI Inspection: normal to inspection Palpation: soft Neuro General: no focal motor deficits Speech: abnormal speech slurred Medical Decision Making 79-year-old male presents to the ER via EMS with a chief complaint of shortness of breath. Patient states that his friend called 911. Also report is that he is altered. He does appear to be intoxicated with slurred speech. He does endorse beer today. He denies any drugs or smoking. He also reports that he is fallen but cannot give the details to that. He does have some to supplement. Past medical history includes failure to thrive iron deficiency anemia hypomagnesemia alcohol use disorder GI bleeding Tineo's esophagus UTI depression renal insufficiency. Currently has been somewhat uncooperative and is refusing blood work because he does not want to. Patient being verbally abusive and combative, IV was started in the left AC blood drawn. Security is at bedside. BGL 61. 25 g of D50 ordered IV. Patient is refusing to drink any orange juice. Liter of LR started, patient's O2 sat is 88 to 87% on room air. He is refusing an albuterol nebulizer and refusing to wear oxygen. VBG shows a pH of 7.19 CO2 45 pO2 41 bicarb 17 CO2 16 the remainder of his labs are pending at this time. Patient placed on 2 L nasal cannula. O2 sat is 93% at this time. Repeat BGL 149, patient is refusing a Fluvid swab. He remains 97% on 2 L nasal cannula heart rate is 88. Will repeat a VBG now, he has received approximately 800 cc of LR, he is sleeping, breathing eupneic we will do a room air trial. No leukocytosis, ethyl alcohol level is 385.5 proBNP is 872, if VBG is improved we will attempt to get a hold of family for possible discharge as patient has been noncompliant and refusing most of the treatment. If VBG is not improved we will consider admission. Repeat VBG is improved pH is 7.3. Patient awakens and starts yelling and states that he is cold. He has maintained O2 saturation of 92% or greater on room air. Will attempt to get a hold of family or friend. If not will metabolize to freedom. Oxygenation has remained 95% on room air, patient awakens easily. Unable to get a hold of friend he does have a brother on the emergency contact list however he lives out of state. 2312: On patient reevaluation he appears more alert and is carrying on a conversation. He reports generalized weakness. On medication record review he was seen by palliative care yesterday. He reports that he is out of some of his medications and that they were going to get those replenished for him. He denies any known plan with palliative care. Care is to be handed off to oncoming provider Shaun Dangelo pending reevaluation and for patient to sober up little bit more. I did discuss possible aspiration pneumonia and unknown if he has urinary tract infection as he has not given us urine sample. Vital signs are stable at this time. He is conversant seems a little bit more cooperative. This text was generated using [employer] dictation system, please disregard any oddi ties of phrase or misspellings. Medical Records Medical records narrative: Patient has not been seen here since May 2024. Does have a history of atrial fibrillation not on anticoagulation, COPD CHF GI bleeds, failure to thrive renal insufficiency. Imaging Data Radiologic Study: Imaging: X-Ray Radiologist's impression: COMPARISON: CT CHEST/ABD/PEL WO 06/17/2024 01:36 FINDINGS: Lungs: Hazy left basilar density challenging to assess on this portable view. Slightly rotated study. Pleural spaces: No pleural effusion. No pneumothorax. Heart/Mediastinum: No cardiomegaly. Bones/joints: Chronic bony changes with no acute fracture. IMPRESSION: Hazy left basilar density challenging to assess on this portable view. Subsegmental atelectasis, pneumonia and artifact can have this appearance. Consider workup with a lateral view if clinically indicated. Thank you for allowing us to participate in the care of your patient. Dictated and Authenticated by: Ayse Graham MD Lab Data Lab results reviewed: Yes I reviewed the patient's lab results. Labs: Laboratory Tests Range/Units 12/09/24 19:00 WBC (4.4-10.8) 10^3/uL 7.58 RBC (4.36-5.78) 10^6/uL 6.00 H Hgb (13.5-17.5) g/dL 13.0 L Hct (40.0-50.0) % 44.1 MCV (80-95) fL 74 L MCH (27.0-33.0) pg 21.7 L MCHC (32.0-36.0) % 29.5 L RDW (11.8-14.1) % 20.7 H Plt Count (130-400) 10^3/uL 248 MPV (8.0-11.0) fL 8.8 Immature Gran % % 0.4 Neutrophils % % 77.7 Lymphocytes % % 15.3 Monocytes % % 4.6 Eosinophils % % 0.3 Basophils % % 1.7 Nucleated RBC % (0.0-0.3) % 0.0 Absolute Neutrophils (1.2-6.7) 10^3/uL 5.89 Absolute Lymphocytes (1.2-3.4) 10^3/uL 1.16 L Absolute Monocytes (0.1-0.8) 10^3/uL 0.35 Absolute Eosinophils (0.0-0.7) 10^3/uL 0.02 Absolute Basophils (0.0-0.2) 10^3/uL 0.13 RBC Morphology See Below Hypochromasia 1+ Anisocytosis 1+ Microcytosis 1+ VBG pH (7.31-7.41) 7.19 L VBG pCO2 (41-51) mmHg 45 VBG pO2 mmHg 41 VBG HCO3 (23-28) mmol/L 17 L VBG Total CO2 (24-29) mmol/L 16 L VBG O2 Saturation % 58 VBG Base Excess (-2-3) mmol/L -11 L Sodium (136-145) mmol/L 146 H Potassium (3.5-5.1) mmol/L 4.6 Chloride (98-107) mmol/L 105 Carbon Dioxide (21.0-32.0) mmol/L 18.4 L Anion Gap (3-11) mmol/L 22.6 H BUN (7-18) mg/dL 49 H Creatinine (0.70-1.30) mg/dL 2.3 H Est GFR (CKD-EPI 2020) (mL/min/1.73m2) 28.35 Glucose (74-106) mg/dL 64 L Calcium (8.5-10.1) mg/dL 8.7 Magnesium mg/dL 1.9 Total Bilirubin (0.2-1.0) mg/dL 0.4 AST (15-37) U/L 35 ALT (16-63) U/L 27 Alkaline Phosphatase (46-116) U/L 90 Troponin I (<or=76) ng/L 31 NT-Pro-B Natriuret Pep (<300) pg/mL 872 H Total Protein (6.4-8.2) g/dL 7.6 Albumin (3.4-5.0) g/dL 4.0 Salicylates (<2.8) mg/dL 4.8 Acetaminophen (10-30) ug/mL < 2 Ethyl Alcohol (<10) mg/dL 385.5 H Quality:SDOH Health Related Social Needs: No Data to Display PFSH All Active Problems Palliative care patient (Acute) ACP (advance care planning) (Acute) Seasonal allergies (Acute) Atherosclerosis of abdominal aorta (Acute) Iliac artery stenosis, bilateral (Acute) Coronary artery calcification seen on CAT scan (Acute) Fatty liver disease, nonalcoholic (Acute) Hiatal hernia (Chronic) Delirium due to multiple etiologies (Acute) Anemia, chronic disease (Acute) CKD (chronic kidney disease) stage 3, GFR 30-59 ml/min (Chronic) Falls frequently (Acute) Blunt head trauma (Acute) Blunt trauma of multiple sites of trunk (Acute) Fall (Acute) Impaired gait and mobility (Acute ~03/2023) Hyperlipidemia (Chronic) Tobacco abuse disorder (Chronic) Cut down 1/2PPD Personal history of noncompliance with medical treatment and regimen (Chronic) Alcoholic liver disease (Chronic) Anemia (Chronic ~02/2022) S/P GI bleed CHF (congestive heart failure) (Chronic ~02/2023) ECHO 02/2022 LVEF 45-50% Depression (Chronic) Plans on getting connected to social work Tineo's esophagus (Chronic ~04/2019) ETOH; Upper endoscopy 03/2019 (see path report--no tineo's?, but 08/15/2019 surg note says +tineo's) Weakness (Acute) LE weakness; Home PT Urinary retention (Chronic) Dr. Ramos COPD (chronic obstructive pulmonary disease) (Chronic) Atrial fibrillation (Chronic) Paroxysmal per hospital records; not anticoagulated secondary to recurrent GI bleeds from chronic EtOH use Medical History Lack of housing Adult failure to thrive Iron deficiency anemia due to chronic blood loss Hypomagnesemia Alcohol use disorder Acute upper gastrointestinal bleeding (~02/2022) Gastric ulcer Troponin level elevated Gout Colchicine prevention Sleeping difficulty Melatonin RX Insomnia Radicular pain of right lower extremity GI bleed Tineo's esophagus Right knee pain UTI (urinary tract infection) Hematemesis Depression Renal insufficiency Smoking hx Surgical History H/O esophagogastroduodenoscopy (~05/2019) Repeat on 10/26/20 [facility] [place] severe reflux esophagitis w/ non-bleeding esophageal ulcer. Multiplle inflammatory appearing nodules at GEJ Social History Smoking/Tobacco Use Status: Current every day Tobacco Type: cigarettes Years smoked: 50 Smoking risk assessment performed?: Yes Alcohol Intake: current Alcohol Intake frequency: 3 or more drinks per day Alcohol type: hard liquor Drug use: Never Substance use type: does not use Details: Pt appears intoxicated today but states nothing is wrong Housing: apartment Do you need help understanding health information?: Rarely current occupation: [employer] '64-68 (served as [employer]) What type of physical activity do you participate in: none Do you feel safe at home: Yes Do you feel safe in your relationship?: Yes
--- NOTE | 2024-12-09 18:45 | DI.RAD_ITS ---
Exam(s) XR PORTABLE CHEST AP EXAM: XR PORTABLE CHEST AP CLINICAL HISTORY: SOB TECHNIQUE: 2D digital imaging was performed of the chest. One image was obtained. An AP view was ob tained. COMPARISON: CR,XR XR PORTABLE CHEST AP from 04/11/2024 FINDINGS: MEDIASTINUM: Normal. HEART: Normal. PULMONARY VASCULATURE: Normal. LUNGS: There is a question of an infiltrate in the left lung base. The right lung is clear. PLEURAL SPACE: No pleural effusion or pneumothorax. BONE:Within normal limits for the patient's age. OTHER FINDINGS:Normal. IMPRESSION: Question of a left basilar infiltrate. This may represent atelectasis or pneumonia. Please correlat e clinically. DATA REPOSITORY: RADIATION DOSE DELIVERED:
[2024-12-09 19:07] LABS: BE (Venous) -11 mmol/L (-2-3); HCO3 (Venous) 17 mmol/L (23-28); O2 Sat (Venous) 58 %; TCO2 (Venous) 16 mmol/L (24-29); pCO2 (Venous) 45 mmHg (41-51); pO2 (Venous) 41 mmHg
[2024-12-09 19:08] LABS: Abs Immature Grans 0.03 10^3/uL (0.0-0.06); Absolute Basophil Count 0.13 10^3/uL (0.0-0.2); Absolute Eosinophil Count 0.02 10^3/uL (0.0-0.7); Absolute Lymphocyte Count 1.16 10^3/uL (1.2-3.4); Absolute Monocyte Count 0.35 10^3/uL (0.1-0.8); Absolute Neutrophil Count 5.89 10^3/uL (1.2-6.7); Basophils % 1.7 %; Eosinophils % 0.3 %; HCT 44.1 % (40.0-50.0); Immature Grans % 0.4 %; Lymphocytes % 15.3 %; MCH 21.7 pg (27.0-33.0); MCHC 29.5 % (32.0-36.0); MCV 74 fL (80-95); MPV 8.8 fL (8.0-11.0); Monocytes % 4.6 %; Neutrophils % 77.7 %; Platelet Count 248 10^3/uL (130-400); RDW 20.7 % (11.8-14.1); RDW-SD 51.2 fL; WBC 7.58 10^3/uL (4.4-10.8)
[2024-12-09 19:09] LABS: pH (Venous) 7.19 (7.31-7.41)
[2024-12-09] MEDS: Dextrose 50%-Water 25 GM/50 ML SYR IVP (19:23)
[2024-12-09] MEDS: Lactated Ringers 1,000 ML 1000 ML IV (19:24)
[2024-12-09 19:25] LABS: Diff Comment RBC Morph Reviewed
[2024-12-09 19:26] LABS: Anisocytosis 1+; Hypochromasia 1+; Microcytosis 1+
[2024-12-09 19:41] LABS: ALT 27 U/L (16-63); AST 35 U/L (15-37); Alkaline Phosphatase 90 U/L (46-116); Anion Gap 22.6 mmol/L (3-11); BUN 49 mg/dL (7-18); Bilirubin, Total 0.4 mg/dL (0.2-1.0); CO2 18.4 mmol/L (21.0-32.0); CREATININE 2.3 mg/dL (0.70-1.30); Calcium 8.7 mg/dL (8.5-10.1); Chloride 105 mmol/L (98-107); Estimated GFR 28.35 (mL/min/1.73m2); Glucose 64 mg/dL (74-106); Magnesium 1.9 mg/dL; Potassium 4.6 mmol/L (3.5-5.1); Sodium 146 mmol/L (136-145); Total Protein 7.6 g/dL (6.4-8.2); Troponin I 31 ng/L (<or=76)
[2024-12-09 19:47] LABS: ETHANOL BLOOD 385.5 mg/dL (<10)
[2024-12-09 19:56] LABS: Acetaminophen < 2 ug/mL (10-30); Salicylate 4.8 mg/dL (<2.8)
[2024-12-09 20:02] LABS: NT-proBNP 872 pg/mL (<300)
--- NOTE | 2024-12-09 20:31 | DI.VRAD_ITS ---
PROCEDURE INFORMATION: Exam: XR Chest Exam date and time: 12/09/2024 19:42 Age: 79 years old Clinical indication: Shortness of breath TECHNIQUE: Imaging protocol: Radiologic exam of the chest. Views: 1 view. COMPARISON: CT CHEST/ABD/PEL WO 06/17/2024 01:36 FINDINGS: Lungs: Hazy left basilar density challenging to assess on this portable view. Slightly rotated study. Pleural spaces: No pleural effusion. No pneumothorax. Heart/Mediastinum: No cardiomegaly. Bones/joints: Chronic bony changes with no acute fracture. IMPRESSION: Hazy left basilar density challenging to assess on this portable view. Subsegmental atelectasis, pneumonia and artifact can have this appearance. Consider workup with a lateral view if clinically indicated. Dictated and Authenticated by: Ayse Graham MD. Orderin Oriana Jimenez MD
[2024-12-09 20:33] LABS: Troponin I 30 ng/L (<or=76)
[2024-12-09 21:24] LABS: BE (Venous) -8 mmol/L (-2-3); HCO3 (Venous) 18 mmol/L (23-28); O2 Sat (Venous) 72 %; TCO2 (Venous) 17 mmol/L (24-29); pCO2 (Venous) 37 mmHg (41-51); pO2 (Venous) 45 mmHg
[2024-12-09] MEDS: Amoxicillin 875/Clav. 125 TAB PO (23:49)
[2024-12-10] VITALS (30 sets, daily range): BP systolic 132; BP diastolic 97; PULSE 69–100; RESP 11–23; O2SAT 95–96
[2024-12-10 01:54] LABS: Bilirubin Negative (Negative); Blood Negative (Negative); Clarity Clear (Clear); Glucose Negative (Negative); Ketones Negative (Negative); Leukocyte Esterase Negative (Negative); Nitrite Negative (Negative); Urobilinogen 0.2 mg/dL (Up to 0.2); pH 5.5 (5-8)
[2024-12-10 02:06] LABS: *AMPHETAMINES SCREEN URINE Negative (Negative); *BARBITURATES SCREEN URINE Negative (Negative); *BENZODIAZEPINES SCREEN URINE Negative (Negative); Cannabinoids THC Negative (Negative); Cocaine Screen,Urine Negative (Negative); METHADONE URINE SCREEN Negative (Negative); OPIATES URINE SCREEN Negative (Negative)
[2024-12-10 02:10] LABS: Tricyclic Antidepressants Negative (Negative)
--- NOTE | 2024-12-10 06:18 | W.EDPROG ---
Date of service: 12/10/24 Time of Service: 06:18 Medical Decision Making Patient was signed out to me by Linh Salazar pending sobriety. On reassessment at 6 AM the patient is notably clinically sober. The patient is able to speak clearly. There is no demonstration of any slurring of speech. There is evidence of clear decision making capacity. Patient is able to ambulate well without any difficulty. There are no signs of ataxia or stumbling motions. He states that his legs do feel slightly weak though. We did get him up and ambulated him to the bathroom both with and without a walker and he did well. He still has concerns going home. He has a walker at home as well as a cane. He has used EMS for lift assist in the past. I discussed this is an option again this time and he agrees and would like us to call our CT for transport and then help facilitate a lift assist at his home. Patient is otherwise stable for discharge. We will give Augmentin for home use out of concern for potential aspiration pneumonia given the equivocal chest x-ray findings. Patient remains hemodynamically stable though. No significant hypoxemia or hemodynamic instability. I have extensively reviewed the treatment plan and discharge instructions with the patient. I have addressed all patient concerns at this time. The patient was made aware of what symptoms to monitor for that would warrant a return to the emergency department. Discussed the plan with the patient, they demonstrate verbal understanding and agreement with our assessment and plan at this time. The documentation in this chart was dictated using [employer] dictation software. Please excuse any dictation errors. Quality:SDOH Health Related Social Needs: No Data to Display Discharge Plan Disposition Patient Disposition: Home Condition: Good Discharge Details Clinical Impression: Alcohol intoxication, Aspiration pneumonia Primary Care Provider: Desirae Panda ED Provider: Santi Dangelo Home Meds and New Rx's Prescriptions: New amoxicillin-pot clavulanate 875-125 mg tablet 1 tab PO BID 7 Days Qty: 14 0RF No Action docusate sodium [Colace] 100 mg capsule 100 mg PO BID Qty: 30 0RF amlodipine 5 mg tablet 5 mg PO DAILY Qty: 30 0RF atorvastatin 40 mg tablet 40 mg PO HS Qty: 30 0RF metoprolol succinate 50 mg tablet extended release 24 hr 50 mg PO DAILY Qty: 30 0RF mirtazapine 7.5 mg tablet 7.5 mg PO QHS Qty: 30 0RF multivitamin with iron Tablet 1 tab PO DAILY Qty: 30 0RF tamsulosin 0.4 mg capsule 0.8 mg PO DAILY Qty: 60 0RF thiamine HCl (vitamin B1) 100 mg tablet 100 mg PO DAILY Qty: 30 0RF levalbuterol tartrate 45 mcg/actuation HFA aerosol inhaler 1 - 2 puff INHALATION Q4H Qty: 15 3RF Rx Instructions: RESCUE INHALER loratadine 10 mg tablet 10 mg PO DAILY PRN (Reason: allergy symptoms) Qty: 90 3RF Rx Instructions: allergies & itchy eyes acetaminophen 325 mg capsule 650 mg PO Q6H PRN PRNQty: 90 0RF ferrous sulfate 325 mg (65 mg iron) Tablet 325 mg PO 0600,1800 Qty: 60 0RF melatonin 3 mg Tablet 3 mg PO HS Qty: 30 0RF nicotine 21 mg/24 hr Patch 24 Hour 21 mg transdermal DAILY PRN PRNQty: 30 0RF polyethylene glycol 3350 17 gram Powder In Packet 17 g PO DAILY PRN PRN (Reason: Constipation) Qty: 30 0RF Lawanda-Elva 0.8 mg tablet 1 tab PO DAILY Patient Comments: TAKE ONE TABLET BY MOUTH EVERY DAY magnesium gluconate [Mag-G] 27 mg magnesium (500 mg) tablet 27 mg PO DAILY pantoprazole 40 mg tablet,delayed release (DR/EC) 40 mg PO BID Qty: 90 3RF Rx Instructions: GI bleed Discharge Instructions Instructions: Aspiration pneumonia Additional Instructions: At this time there is concern that you may have developed some mild aspiration pneumonia. Please take the antibiotic as prescribed. Is been sent to your pharmacy on file. If you notice any worsening of your symptoms, or any new symptoms such as vomiting, diarrhea, fever, chills, shortness of breath, chest pain, numbness, weakness, or fainting , please return immediately to the emergency department for reevaluation. Please follow up with your primary care provider as soon as possible for reassessment and reevaluation. As always, it was a pleasure participating in your medical care today. Referrals: Desirae Panda NP [Primary Care Provider] -
== END 2024-12-10 06:44 | disposition home or self-care (01) ==
PROVIDERS: Registered Nurse Emergency; Emergency Provider Student in an Organized Health Care Education/Training Program; PCP Nurse Practitioner Adult Health
DX: F10.120 Alcohol abuse with intoxication, uncomplicated (principal); J69.0 Pneumonitis due to inhalation of food and vomit; I48.0 Paroxysmal atrial fibrillation; J44.9 Chronic obstructive pulmonary disease, unspecified; E78.5 Hyperlipidemia, unspecified; N18.30 Chronic kidney disease, stage 3 unspecified; F17.210 Nicotine dependence, cigarettes, uncomplicated; Y90.8 Blood alcohol level of 240 mg/100 ml or more
CPT/HCPCS: 00123; 36415; 80053; 80307; 82805; 82962; 87637; 93005; 94640; 96360; 99285; 71045; 80320; 80329; 81003; 83735; 83880; 84484; 85025; 93010

== ENCOUNTER 2024-12-14 10:20 | Inpatient (IN) | payer OTHER, SELFPAY ==
[2024-12-14] VITALS (29 sets, daily range): BP systolic 121–187; BP diastolic 68–77; PULSE 82–149; RESP 5–24; TEMP 36.3–36.9; O2SAT 93–99
--- NOTE | 2024-12-14 10:15 | RT.EKG_ITS ---
APPROVED REPORT Exam: Resting ECG Reason for Exam: Difficulty Breathing Patient Location: E HR:129 bpm ECG Measurements Heart Rate 129 AXIS NE [id number] P [id number] QRSd 80 QRS 59 QT 325 T 62 QTc 477 Conclusion Atrial fibrillation...V-rate 90-153, irreg A-activity Low voltage, precordial leads...precordial leads <1.0mV Anteroseptal infarct, age indeterminate...Q >35mS, T neg, V1-V2 No STEMI
--- NOTE | 2024-12-14 10:23 | ED.GENADUL_ITS ---
Discharge Plan Disposition Patient Disposition: Admit to [facility] Discharge Details Clinical Impression: Acute kidney injury, Acute exacerbation of chronic obstructive pulmonary disease (COPD) Primary Care Provider: Desirae Panda ED Provider: Prashant Sullivan [place] Meds and New Rx's Prescriptions: No Action docusate sodium [Colace] 100 mg capsule 100 mg PO BID Qty: 30 0RF Patient Comments: ran out, not taking amlodipine 5 mg tablet 5 mg PO DAILY Qty: 30 0RF Patient Comments: ran out, not taking atorvastatin 40 mg tablet 40 mg PO HS Qty: 30 0RF Patient Comments: ran out, not taking metoprolol succinate 50 mg tablet extended release 24 hr 50 mg PO DAILY Qty: 30 0RF Patient Comments: ran out, not taking mirtazapine 7.5 mg tablet 7.5 mg PO QHS Qty: 30 0RF Patient Comments: ran out, not taking multivitamin with iron Tablet 1 tab PO DAILY Qty: 30 0RF Patient Comments: ran out, not taking tamsulosin 0.4 mg capsule 0.8 mg PO DAILY Qty: 60 0RF Patient Comments: ran out, not taking thiamine HCl (vitamin B1) 100 mg tablet 100 mg PO DAILY Qty: 30 0RF Patient Comments: ran out, not taking levalbuterol tartrate 45 mcg/actuation HFA aerosol inhaler 1 - 2 puff INHALATION Q4H Qty: 15 3RF Patient Comments: ran out, not taking Rx Instructions: RESCUE INHALER loratadine 10 mg tablet 10 mg PO DAILY PRN (Reason: allergy symptoms) Qty: 90 3RF Patient Comments: ran out, not taking Rx Instructions: allergies & itchy eyes amoxicillin-pot clavulanate 875-125 mg tablet 1 tab PO BID 7 Days Qty: 14 0RF acetaminophen 325 mg capsule 650 mg PO Q6H PRN PRNQty: 90 0RF Patient Comments: ran out, not taking ferrous sulfate 325 mg (65 mg iron) Tablet 325 mg PO 0600,1800 Qty: 60 0RF Patient Comments: ran out, not taking melatonin 3 mg Tablet 3 mg PO HS Qty: 30 0RF Patient Comments: ran out, not taking nicotine 21 mg/24 hr Patch 24 Hour 21 mg transdermal DAILY PRN PRNQty: 30 0RF Patient Comments: ran out, not taking polyethylene glycol 3350 17 gram Powder In Packet 17 g PO DAILY PRN PRN (Reason: Constipation) Qty: 30 0RF Patient Comments: ran out, not taking Lawanda-Elva 0.8 mg tablet 1 tab PO DAILY Patient Comments: TAKE ONE TABLET BY MOUTH EVERY DAY ran out, not taking magnesium gluconate [Mag-G] 27 mg magnesium (500 mg) tablet 27 mg PO DAILY Patient Comments: ran out, not taking pantoprazole 40 mg tablet,delayed release (DR/EC) 40 mg PO BID Qty: 90 3RF Patient Comments: ran out, not taking Rx Instructions: GI bleed HPI General Date/Time Provider Initiated Documentation: 12/14/24 10:23 . HPI Narrative: MDM This is a normotensive but tachycardic 79-year-old male with recent diagnosis of community-acquired pneumonia with worsening cough with abnormal breath sounds bilaterally concerning for multifocal pneumonia for which patient will undergo viral PCR swab and portable chest x-ray and empiric coverage for sepsis given tachycardia. Patient has been off of his home medications for several weeks so we will order his metoprolol but defer his amlodipine at this point given concern for sepsis. No pain out of proportion to suggest necrotizing soft tissue infection. Uvula midline so my suspicion is low for peritonsillar abscess. Good range of motion in neck so doubt retropharyngeal abscess. Equal breath sounds and no trauma so doubt pneumothorax. Patient is an alcoholic and has not had a drink in 3 days making his tachycardia and hypertension suspicious for the possibility of alcohol withdrawal. No tremors or tongue fasciculations however will place patient on a CIWA protocol. Will defer benzodiazepines at this point to avoid respiratory depression. Suspect the patient's sore throat is cough for which he will receive treatment with benzonatate. If patient has bacterial infiltrate it may be reasonable to consider additional metronidazole for anaerobic coverage. Given history of reactive airway disease we will treat with doxycycline and dexamethasone. Patient denies chest pain given his tachycardia will obtain troponins to assess for any myocardial infiltrate. ECG showing A-fib with RVR at a rate of 129. Low voltage similar to prior. No acute ST segment abnormalities. No T wave versions. 11:45 AM Elevated CK less than 3 times upper limit of normal??not consistent with rhabdomyolysis. Mild lactic acidosis. CBC with microcytic anemia. No leukocytosis. No thrombocytopenia. Venous blood gas with no acidemia nor hypercarbia. Magnesium within normal limits. Undetectable ethanol level. Comprehensive metabolic panel with slightly worsened renal function and CKD. Mild anion gap mild hyperglycemia but normal bicarbonate?/not consistent with DKA. Increased T. bili. Nontender abdomen so not suspicious for acute cholecystitis. 12:13 PM I was in touch with Dr. Rosales who graciously agreed to except the patient for hospitalization. Given only mild lactic acidosis I did not repeat a lactate level. PCR negative for COVID influenza and RSV. Patient scored 0 on his CIWA. Radiology did not read an obvious infiltrate though it does appear the patient has a left lower lobe infiltrate. A-fib and RVR improved in the emergency department. HPI This is an elderly male right emergency department via EMS in the setting of worsening cough and shortness of breath. Patient was in the emergency department last week diagnosed with pneumonia but was unable to start his antibiotics because they were not picked up from his pharmacy. He has had a persistent cough and a persistent sore throat. He has not taken his regular home medications in the past several months. He has a history of atrial fibrillation but is not on anticoagulation. He has not had a drink in the past 3 days. He denies history of seizures but he is not sure whether or not he may have been admitted in the past in the setting of alcohol withdrawal. No dysuria nor frequency. No chest pain or abdominal pain. Exam General: Elderly-appearing with intermittent cough speaking in complete sentences. Head: Normocephalic, atraumatic. Eye: Extraocular eye movements intact. No conjunctival injection. No scleral icterus. Ear, nose, mouth, throat: Grossly normal inspection. Normal voice, handling secretions normally. No significant posterior oropharynx erythema. No tongue fasciculations. Neck: Trachea midline. Cardiovascular: Well-perfused distal extremities. Rapid irregular regular rate. Respiratory: Nonlabored respiration. Coarse rhonchi bilaterally right greater than left. Gastrointestinal: Nondistended abdomen. Soft nontender. Musculoskeletal: No significant lower extremity pitting edema. Moving all 4 extremities spontaneously. Skin: Normal for age and race, grossly normal temperature and turgor. No acute rash. Neurologic: Alert and appropriate, no apparent acute deficits. GCS 15. Related Data Home Medications ?Medication ?Instructions ?Recorded ?Confirmed acetaminophen 325 mg capsule 650 mg (2 x 325 mg) PO Q6H PRN PRN 04/14/24 12/14/24 #90 caps ferrous sulfate 325 mg (65 mg 325 mg PO 0600,1800 #60 tabs 04/14/24 12/14/24 iron) tablet melatonin 3 mg tablet 3 mg PO HS #30 tabs 04/14/24 12/14/24 nicotine 21 mg/24 hr daily 21 mg transdermal DAILY PRN PRN 04/14/24 12/14/24 transdermal patch #30 ea polyethylene glycol 3350 17 gram 17 g PO DAILY PRN PRN Constipation 04/14/24 12/14/24 oral powder packet #30 ea docusate sodium 100 mg capsule 100 mg PO BID #30 caps 05/14/24 12/14/24 (Colace) magnesium gluconate 27 mg 27 mg PO DAILY 06/17/24 12/14/24 magnesium (500 mg) tablet (Mag-G) vitamin B complex-vitamin C-folic 1 tab PO DAILY 06/17/24 12/14/24 acid 0.8 mg tablet (Lawanda-Elva) pantoprazole 40 mg tablet,delayed 40 mg PO BID #90 tabs 06/20/24 12/14/24 release amlodipine 5 mg tablet 5 mg PO DAILY #30 tabs 07/16/24 12/14/24 atorvastatin 40 mg tablet 40 mg PO HS #30 tabs 07/16/24 12/14/24 levalbuterol tartrate 45 1 - 2 puff inhalation Q4H #15 grams 07/16/24 12/14/24 mcg/actuation aerosol inhaler metoprolol succinate 50 mg 50 mg PO DAILY #30 tabs 07/16/24 12/14/24 tablet,extended release 24 hr mirtazapine 7.5 mg tablet 7.5 mg PO QHS #30 tabs 07/16/24 12/14/24 multivitamin with iron 1 tab PO DAILY #30 tabs 07/16/24 12/14/24 tamsulosin 0.4 mg capsule 0.8 mg (2 x 0.4 mg) PO DAILY #60 07/16/24 12/14/24 caps thiamine HCl (vitamin B1) 100 mg 100 mg PO DAILY #30 tabs 07/16/24 12/14/24 tablet loratadine 10 mg tablet 10 mg PO DAILY PRN allergy 08/05/24 12/14/24 symptoms #90 tabs amoxicillin 875 mg-potassium 1 tab PO BID 7 days #14 tabs 12/10/24 12/14/24 clavulanate 125 mg tablet Previous Rx's ?Medication ?Instructions ?Recorded acetaminophen 325 mg capsule 650 mg (2 x 325 mg) PO Q6H PRN PRN 04/14/24 #90 caps ferrous sulfate 325 mg (65 mg 325 mg PO 0600,1800 #60 tabs 04/14/24 iron) tablet melatonin 3 mg tablet 3 mg PO HS #30 tabs 04/14/24 nicotine 21 mg/24 hr daily 21 mg transdermal DAILY PRN PRN 04/14/24 transdermal patch #30 ea polyethylene glycol 3350 17 gram 17 g PO DAILY PRN PRN Constipation 04/14/24 oral powder packet #30 ea docusate sodium 100 mg capsule 100 mg PO BID #30 caps 05/14/24 (Colace) pantoprazole 40 mg tablet,delayed 40 mg PO BID #90 tabs 06/20/24 release amlodipine 5 mg tablet 5 mg PO DAILY #30 tabs 07/16/24 atorvastatin 40 mg tablet 40 mg PO HS #30 tabs 07/16/24 levalbuterol tartrate 45 1 - 2 puff inhalation Q4H #15 grams 07/16/24 mcg/actuation aerosol inhaler metoprolol succinate 50 mg 50 mg PO DAILY #30 tabs 07/16/24 tablet,extended release 24 hr mirtazapine 7.5 mg tablet 7.5 mg PO QHS #30 tabs 07/16/24 multivitamin with iron 1 tab PO DAILY #30 tabs 07/16/24 tamsulosin 0.4 mg capsule 0.8 mg (2 x 0.4 mg) PO DAILY #60 07/16/24 caps thiamine HCl (vitamin B1) 100 mg 100 mg PO DAILY #30 tabs 07/16/24 tablet loratadine 10 mg tablet 10 mg PO DAILY PRN allergy 08/05/24 symptoms #90 tabs amoxicillin 875 mg-potassium 1 tab PO BID 7 days #14 tabs 12/10/24 clavulanate 125 mg tablet Allergies Allergy/AdvReac Type Severity Reaction Status Date / Time bupropion AdvReac Severe seizures Verified 12/14/24 10:34 General JENNA: 3 Medical Decision Making Quality:SDOH Health Related Social Needs: No Data to Display PFSH All Active Problems (Updated 12/14/24 @ 13:50 by Prashant Rosales) Acute on chronic kidney failure (Acute) Community acquired bacterial pneumonia (Acute) Severe sepsis (Acute) Acute exacerbation of chronic obstructive pulmonary disease (COPD) (Acute) Acute kidney injury (Acute) Aspiration pneumonia (Acute) Alcohol intoxication (Acute) Palliative care patient (Acute) ACP (advance care planning) (Acute) Seasonal allergies (Acute) Atherosclerosis of abdominal aorta (Acute) Iliac artery stenosis, bilateral (Acute) Coronary artery calcification seen on CAT scan (Acute) Hiatal hernia (Chronic) Delirium due to multiple etiologies (Acute) Anemia, chronic disease (Acute) CKD (chronic kidney disease) stage 3, GFR 30-59 ml/min (Chronic) Falls frequently (Acute) Blunt head trauma (Acute) Blunt trauma of multiple sites of trunk (Acute) Fall (Acute) Impaired gait and mobility (Acute ~03/2023) Hyperlipidemia (Chronic) Tobacco abuse disorder (Chronic) Cut down 1/2PPD Personal history of noncompliance with medical treatment and regimen (Chronic) Alcoholic liver disease (Chronic) Anemia (Chronic ~02/2022) S/P GI bleed CHF (congestive heart failure) (Chronic ~02/2023) ECHO 02/2022 LVEF 45-50% Depression (Chronic) Plans on getting connected to social work Tineo's esophagus (Chronic ~04/2019) ETOH; Upper endoscopy 03/2019 (see path report--no tineo's?, but 08/15/2019 surg note says +tineo's) Weakness (Acute) LE weakness; Home PT Urinary retention (Chronic) Dr. Ramos COPD (chronic obstructive pulmonary disease) (Chronic) Atrial fibrillation (Chronic) Paroxysmal per hospital records; not anticoagulated secondary to recurrent GI bleeds from chronic EtOH use Medical History Lack of housing Adult failure to thrive Iron deficiency anemia due to chronic blood loss Hypomagnesemia Alcohol use disorder Acute upper gastrointestinal bleeding (~02/2022) Gastric ulcer Troponin level elevated Gout Colchicine prevention Sleeping difficulty Melatonin RX Insomnia Radicular pain of right lower extremity GI bleed Tineo's esophagus Right knee pain UTI (urinary tract infection) Hematemesis Depression Renal insufficiency Smoking hx Surgical History H/O esophagogastroduodenoscopy (~05/2019) Repeat on 10/26/20 [facility] [place] severe reflux esophagitis w/ non-bleeding esophageal ulcer. 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
[2024-12-14 11:07] LABS: Abs Immature Grans 0.05 10^3/uL (0.0-0.06); Absolute Basophil Count 0.05 10^3/uL (0.0-0.2); Absolute Eosinophil Count 0.01 10^3/uL (0.0-0.7); Absolute Lymphocyte Count 0.72 10^3/uL (1.2-3.4); Absolute Monocyte Count 0.84 10^3/uL (0.1-0.8); BE (Venous) 0 mmol/L (-2-3); Basophils % 0.6 %; Eosinophils % 0.1 %; HCO3 (Venous) 24 mmol/L (23-28); HCT 35.7 % (40.0-50.0); HGB 11.1 g/dL (13.5-17.5); Immature Grans % 0.6 %; Lymphocytes % 8.3 %; MCH 22.1 pg (27.0-33.0); MCHC 31.1 % (32.0-36.0); MCV 71 fL (80-95); MPV 9.7 fL (8.0-11.0); Monocytes % 9.7 %; Neutrophils % 80.7 %; O2 Sat (Venous) 88 %; Platelet Count 165 10^3/uL (130-400); RBC 5.02 10^6/uL (4.36-5.78); RDW 20.3 % (11.8-14.1); RDW-SD 47.1 fL; TCO2 (Venous) 22 mmol/L (24-29); pCO2 (Venous) 35 mmHg (41-51); pH (Venous) 7.45 (7.31-7.41); pO2 (Venous) 53 mmHg
[2024-12-14 11:09] LABS: Lactate 2.5 mmol/L (<or=2.0)
[2024-12-14] MEDS: Dexamethasone 4 MG TAB 10 MG PO (11:20)
[2024-12-14] MEDS: Doxycycline Hyclate 100 MG CAP PO ×2 (11:21→19:32)
[2024-12-14] MEDS: Metoprolol CR 50 MG TABCR PO (11:21)
[2024-12-14] MEDS: Albuterol/Ipratropium 3 ML UPD VIAL UPD (11:21)
[2024-12-14] MEDS: CEFEPIME 2 GM in Normal Saline 100 ML IVPB (11:21)
[2024-12-14] MEDS: Benzonatate 100 MG CAP PO (11:21)
[2024-12-14 11:22] LABS: Absolute Neutrophil Count 7.01 10^3/uL (1.2-6.7); Anisocytosis 1+; Microcytosis 1+; WBC 8.69 10^3/uL (4.4-10.8)
--- NOTE | 2024-12-14 11:24 | DI.RAD_ITS ---
Exam(s) XR PORTABLE CHEST AP EXAM: XR PORTABLE CHEST AP CLINICAL HISTORY: Cough TECHNIQUE: 2D digital imaging was performed. COMPARISON: CR,XR XR PORTABLE CHEST AP from 04/11/2024 CR,XR XR PORTABLE CHEST AP from 12/09/2024 FINDINGS: LUNGS: Clear no focal infiltrate visible however large for the left lung base is obscured. No pleura l abnormality seen. HEART: Normal size. AORTA: Normal diameter. BONES: Unremarkable for age. Soft tissues: Unremarkable. IMPRESSION: Limited exam. No acute findings. DATA REPOSITORY: RADIATION DOSE DELIVERED:
[2024-12-14 11:34] LABS: Salicylate < 2.8 mg/dL (<2.8)
[2024-12-14 11:37] LABS: ALT 34 U/L (16-63); AST 43 U/L (15-37); Albumin 4.1 g/dL (3.4-5.0); Alkaline Phosphatase 75 U/L (46-116); Anion Gap 15.5 mmol/L (3-11); BUN 68 mg/dL (7-18); Bilirubin, Total 1.9 mg/dL (0.2-1.0); CO2 26.5 mmol/L (21.0-32.0); CREATININE 2.6 mg/dL (0.70-1.30); Calcium 8.9 mg/dL (8.5-10.1); Chloride 100 mmol/L (98-107); Creatine Kinase 648 U/L (39-308); Estimated GFR 24.48 (mL/min/1.73m2); Glucose 148 mg/dL (74-106); Magnesium 1.8 mg/dL; Potassium 4.4 mmol/L (3.5-5.1); Sodium 142 mmol/L (136-145); Total Protein 7.7 g/dL (6.4-8.2); Troponin I 62 ng/L (<or=76)
[2024-12-14 11:38] LABS: ETHANOL BLOOD < 3.0 mg/dL (<10)
[2024-12-14] MEDS: Normal Saline 500 ML 1000 ML IV (12:11)
[2024-12-14] MEDS: VANCOMYCIN/WATER (PEG) 1.5 GM/300 ML BAG IVPB (12:12)
[2024-12-14 12:13] LABS: COVID-19 PCR Negative (Negative); Influenza A PCR Negative (Negative); Influenza B PCR Negative (Negative); RSV PCR Negative (Negative); Source Nasopharynx
[2024-12-14 12:36] LABS: Troponin I 64 ng/L (<or=76)
--- NOTE | 2024-12-14 13:39 | HPE_ITS ---
Date of service: 12/14/24 Time of Service: 13:39 Assessment and Plan Assessment and plan (1) Community acquired bacterial pneumonia: Status: Acute Assessment and plan: He has had cough and SOB. CXR 5 days ago concerning for infiltrate. ED physician and myself both felt current film looks worse, though read as clear. Clinically c/w pneumonia. Likely complicating viral illness as has pharyngitis Started on cefepime and vanco given sepsis picture as well as doxy. Will continue cefepime and doxy, MRSA swab. Continue vanco only if positive. (2) Severe sepsis: Status: Acute Assessment and plan: Met criteria with initial elevated RR, HR, lactate, and respiratory infection. Antibiotics as above. Improving symptoms and vital signs with a 1500 isotonic fluids and resuming metoprolol. He is drinking, I don't think he needs additional fluids (3) Acute exacerbation of chronic obstructive pulmonary disease (COPD): Status: Acute Assessment and plan: Treated with dexamethasone and nebs in ED. Will continue but transition to prednisone. Antibiotics for pneumonia as above. (4) Atrial fibrillation: Status: Chronic Assessment and plan: Rate better controlled back on oral metoprolol, will continue this. He has not been anticoagulated due to fall risk and acitve alcoholism. This should be reconsidered if he is placed with nursing care. (5) Tobacco abuse disorder: Status: Chronic Assessment and plan: NRT patch prn (6) CHF (congestive heart failure): Status: Chronic Assessment and plan: He does not appear to be in active CHF based on exam and CXR. Troponins flat. Continue to monitor. (7) Tineo's esophagus: Status: Chronic Assessment and plan: resume PPI. He does have a history of UGI bleed. (8) Alcoholic liver disease: Status: Chronic Assessment and plan: Abnormal transaminases mild, but new mild bilirubin elavation. INR reassuring that his is not severe alcoholic hepatitis. Follow. (9) Urinary retention: Status: Chronic Assessment and plan: Retaining in ED, straight cathed. Continue to monitor. Resume alpha kassie (10) Anemia, chronic disease: Status: Acute Assessment and plan: stable compared to chronic. Follow. (11) Impaired gait and mobility: Status: Acute Assessment and plan: h/o frequent falls. PT referral. He may need placement. (12) Acute on chronic kidney failure: Status: Acute Assessment and plan: Appears to have some degree of acute on chronic renal insufficiency. Presented dry, also urinary retention. Follow (13) Alcohol withdrawal: Status: Resolved Assessment and plan: Mild symptoms. May be contributing to high BP and HR. Alcohol no longer detectable c/w no drinking x 3 days per his history. Even so, we will monitor for withdrawal with CIWA, prn lorazepam, no phenobarbital loading. (14) DVT prophylaxis: Status: Resolved Assessment and plan: enoxaparin, renal dosing (15) ACP (advance care planning): Status: Acute Assessment and plan: He is FULL CODE. He has seen palliative but unsafe living situation makes home visits difficult. He is open to placement. History of Present Illness History of Present Illness Chief Complaint: short of breath Narrative: 79 yo M with history of alcohol use disorder, smoking, COPD, CKD3b, history of HFpEF, and atrial fibrillation who has been without his medications for months presented with cough and shortness of breath. He initially stated he had the symptoms for 3 days, but when reminded about his 12/09 visit for shortness of breath, he states the symptoms started before that visit. He did have runny nose and congestion but this has improved. He has been hoarse and has some odynophagia. He can swallow water but alcohol walker too much so he hasn't had any alcohol or eaten real food in 3 days. The pain with swallowing started after the cough, it is not chronic. His cough is productive of thick sputum, no blood. His has not had chest pain or palpitations. His shortness of breath has improved since getting fluids and medication here. He was seen 12/09 in the ED with SOB and diagnosed with pneumonia. His blood alcohol was 385.5 at that visit. He was initially mildly hypoxic but this resolved. After sobering up he was discharged with a prescription for amox/clav but he never filled it. Per pharmacy records he last filled his regular prescriptions in June 2024. He typically drinks a fifth of liquor every 3 days, last alcohol 3 days ago. Denies h/o seizures. Had had 800+ days sober in past in skilled nursing. Review of Systems All systems reviewed & are unremarkable except as noted in HPI and below PFSH All Active Problems Acute on chronic kidney failure (Acute) Community acquired bacterial pneumonia (Acute) Severe sepsis (Acute) Acute exacerbation of chronic obstructive pulmonary disease (COPD) (Acute) Acute kidney injury (Acute) Aspiration pneumonia (Acute) Alcohol intoxication (Acute) ACP (advance care planning) (Acute) Seasonal allergies (Acute) Palliative care patient (Acute) Atherosclerosis of abdominal aorta (Acute) Iliac artery stenosis, bilateral (Acute) Coronary artery calcification seen on CAT scan (Acute) Hiatal hernia (Chronic) Delirium due to multiple etiologies (Acute) Anemia, chronic disease (Acute) CKD (chronic kidney disease) stage 3, GFR 30-59 ml/min (Chronic) Falls frequently (Acute) Blunt head trauma (Acute) Blunt trauma of multiple sites of trunk (Acute) Fall (Acute) Impaired gait and mobility (Acute ~03/2023) Hyperlipidemia (Chronic) Personal history of noncompliance with medical treatment and regimen (Chronic) Alcoholic liver disease (Chronic) CHF (congestive heart failure) (Chronic ~02/2023) ECHO 02/2022 LVEF 45-50% Anemia (Chronic ~02/2022) S/P GI bleed Depression (Chronic) Plans on getting connected to social work Tineo's esophagus (Chronic ~04/2019) ETOH; Upper endoscopy 03/2019 (see path report--no tineo's?, but 08/15/2019 surg note says +tineo's) Weakness (Acute) LE weakness; Home PT Urinary retention (Chronic) Dr. Ramos Tobacco abuse disorder (Chronic) Cut down 1/2PPD Atrial fibrillation (Chronic) Paroxysmal per hospital records; not anticoagulated secondary to recurrent GI bleeds from chronic EtOH use COPD (chronic obstructive pulmonary disease) (Chronic) Medical History Lack of housing Adult failure to thrive Iron deficiency anemia due to chronic blood loss Acute upper gastrointestinal bleeding (~02/2022) Gastric ulcer Troponin level elevated Gout Colchicine prevention Sleeping difficulty Melatonin RX Insomnia Radicular pain of right lower extremity GI bleed Tineo's esophagus Right knee pain UTI (urinary tract infection) Hematemesis Hypomagnesemia Depression Renal insufficiency Alcohol use disorder Smoking hx Surgical History H/O esophagogastroduodenoscopy (~05/2019) Repeat on 10/26/20 [facility] severe reflux esophagitis w/ non-bleeding esophageal ulcer. 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) What type of physical activity do you participate in: none Do you feel safe at home: Yes Do you feel safe in your relationship?: Yes Additional Social history: Lives alone in apartment on [address] Allergies and Home Medications Allergies Allergy/AdvReac Type Severity Reaction Status Date / Time bupropion AdvReac Severe seizures Verified 12/14/24 10:34 Home Medications ?Medication ?Instructions ?Recorded ?Confirmed ?Type acetaminophen 325 mg capsule 650 mg (2 x 325 mg) PO Q6H PRN PRN 04/14/24 12/14/24 Rx #90 caps ferrous sulfate 325 mg (65 mg 325 mg PO 0600,1800 #60 tabs 04/14/24 12/14/24 Rx iron) tablet melatonin 3 mg tablet 3 mg PO HS #30 tabs 04/14/24 12/14/24 Rx nicotine 21 mg/24 hr daily 21 mg transdermal DAILY PRN PRN 04/14/24 12/14/24 Rx transdermal patch #30 ea polyethylene glycol 3350 17 gram 17 g PO DAILY PRN PRN Constipation 04/14/24 12/14/24 Rx oral powder packet #30 ea docusate sodium 100 mg capsule 100 mg PO BID #30 caps 05/14/24 12/14/24 Rx (Colace) magnesium gluconate 27 mg 27 mg PO DAILY 06/17/24 12/14/24 History magnesium (500 mg) tablet (Mag-G) vitamin B complex-vitamin C-folic 1 tab PO DAILY 06/17/24 12/14/24 History acid 0.8 mg tablet (Lawanda-Elva) pantoprazole 40 mg tablet,delayed 40 mg PO BID #90 tabs 06/20/24 12/14/24 Rx release amlodipine 5 mg tablet 5 mg PO DAILY #30 tabs 07/16/24 12/14/24 Rx atorvastatin 40 mg tablet 40 mg PO HS #30 tabs 07/16/24 12/14/24 Rx levalbuterol tartrate 45 1 - 2 puff inhalation Q4H #15 grams 07/16/24 12/14/24 Rx mcg/actuation aerosol inhaler metoprolol succinate 50 mg 50 mg PO DAILY #30 tabs 07/16/24 12/14/24 Rx tablet,extended release 24 hr mirtazapine 7.5 mg tablet 7.5 mg PO QHS #30 tabs 07/16/24 12/14/24 Rx multivitamin with iron 1 tab PO DAILY #30 tabs 07/16/24 12/14/24 Rx tamsulosin 0.4 mg capsule 0.8 mg (2 x 0.4 mg) PO DAILY #60 07/16/24 12/14/24 Rx caps thiamine HCl (vitamin B1) 100 mg 100 mg PO DAILY #30 tabs 07/16/24 12/14/24 Rx tablet loratadine 10 mg tablet 10 mg PO DAILY PRN allergy 08/05/24 12/14/24 Rx symptoms #90 tabs amoxicillin 875 mg-potassium 1 tab PO BID 7 days #14 tabs 12/10/24 12/14/24 Rx clavulanate 125 mg tablet Exam Narrative Exam Narrative: GEN: Alert and oriented x 4, lying on his side in bed, but pleasant and cooperative, gives vague history. Voice hoarse. Appears fatigued, mild distress. HEENT: Head atraumatic. Conjunctiva clear, no icterus. PEERL, EOMI. no rhinorrhea. MMM, OP pink but no exudate. Edentulous. Neck is supple with no masses or lymphadenopathy, trachea midline LUNGS: Diffusely diminished, no focal rales, expiratory rhonchi more on left. mild tachypnea CV: Irregularly irregular, borderline tachycardia, with no murmurs, gallops, or rubs. ABD: active bowel sounds, soft, nontender, mildly distended, no fluid palbable. No masses. EXT: no cyanosis, clubbing, or edema MSK: No joint redness or swelling NEURO: CN 2-12 grossly intact. Normal movement of 4 extremities. Normal speech and coordination. No tremor SKIN: No rashes or open wounds. PSYCH: normal mood and affect, no hallucinations evident Results Imaging Chest x-ray: report reviewed (no acute disease) and image reviewed (obscring of left heart border/apex c/w left sided infiltrate) EKG: report reviewed and image reviewed (atrial fibrillation, tachycardic, no STEMI) Labs 12/14/24 10:50 12/14/24 10:50 Labs: Laboratory Results - last 24 hr 12/14/24 12/14/24 12/14/24 10:50 12:10 13:38 WBC 8.69 RBC 5.02 Hgb 11.1 L Hct 35.7 L MCV 71 L MCH 22.1 L MCHC 31.1 L RDW 20.3 H Plt Count 165 MPV 9.7 Immature Gran % 0.6 Neutrophils % 80.7 Lymphocytes % 8.3 Monocytes % 9.7 Eosinophils % 0.1 Basophils % 0.6 Nucleated RBC % 0.0 Absolute Neutrophils 7.01 H Absolute Lymphocytes 0.72 L Absolute Monocytes 0.84 H Absolute Eosinophils 0.01 Absolute Basophils 0.05 RBC Morphology See Below Anisocytosis 1+ Microcytosis 1+ VBG pH 7.45 H VBG pCO2 35 L VBG pO2 53 VBG HCO3 24 VBG Total CO2 22 L VBG O2 Saturation 88 VBG Base Excess 0 VBG Lactate 2.5 H* Sodium 142 Potassium 4.4 Chloride 100 Carbon Dioxide 26.5 Anion Gap 15.5 H BUN 68 H Creatinine 2.6 H Est GFR (CKD-EPI 2020) 24.48 Glucose 148 H Calcium 8.9 Magnesium 1.8 Total Bilirubin 1.9 H AST 43 H ALT 34 Alkaline Phosphatase 75 Creatine Kinase 648 H Troponin I 62 64 Cancelled Total Protein 7.7 Albumin 4.1 Salicylates < 2.8 Ethyl Alcohol < 3.0 COVID-19 Source Nasopharynx SARS-CoV-2 (PCR) Negative Influenza Type A (PCR) Negative Influenza Type B (PCR) Negative RSV (PCR) Negative Last Vital Signs Temp 36.7 C 12/14/24 11:01 Pulse 86 12/14/24 12:30 Resp 14 12/14/24 12:30 BP 187/77 H 12/14/24 11:01 Pulse Ox 97 12/14/24 12:30 PAWSS Have you Been Recently Intoxicated or Drunk Within the Last 30 days?: Yes Have you Ever Experienced Previous Episodes of Alcohol Withdrawal?: No Have you ever Experienced Withdrawal Seizures?: No Have you ever Experienced Delirium Tremens(DT)s?: No Have you ever undergone Alcohol Rehabilitation Treatment (i.e, inpt ot outpatient treatment programs)?: No Have you ever Experienced Blackouts?: No Have you ever Combined Alcohol with other Downers within the last 90 days?: No Have you ever Combined Alcohol with any other Substance of Abuse during the last 90 days?: No Positive Blood Alcohol level on Presentation? [PCS.BAL]: No Evidence of Increased Autonomic Activity (i.e. HR>120, tremor, sweating, agitation, nausea)?: No Result: 1 Time Spent Time spent with Patient: >75 minutes Time was spent: preparing to see the patient(eg.review tests), obtaining and/or reviewing separately otained hiistory, ordering medications,tests, procedures, referring, communicating with other health progressive care nurse, indepentently interpreting results, counseling the patient and care coordination
--- NOTE | 2024-12-14 15:20 | W.PC.ACHO ---
Registration Status: Primary Language: Preferred Language: ED Information & Data Chief Complaint RespSymp 12/14/24 10:33 Chief Complaint RespSymp 12/14/24 10:23 Triage Note patient brought to the ER by 12/14/24 10:23 lory with history of difficulty breathing. recently diagnosed with pneumonia, has not started his medications because his medications was not sent by the pharmacy to his home. Patient has been persistently coughing and sore throat. Patient state she ran out of all his other medications Medical / Surgical History Lack of housing Adult failure to thrive Iron deficiency anemia due to chronic blood loss Hypomagnesemia Alcohol use disorder Acute upper gastrointestinal bleeding (~02/2022) Gastric ulcer Troponin level elevated Gout Sleeping difficulty Insomnia Radicular pain of right lower extremity GI bleed Cooper's esophagus Right knee pain UTI (urinary tract infection) Hematemesis Depression Renal insufficiency Smoking hx (Last Reviewed 12/09/24 @ 18:46 by Barbara Gastelum NP) H/O esophagogastroduodenoscopy (~05/2019) Most Recent Vital Signs Temperature 36.4 C L 12/14/24 14:40 Temperature Source Temporal Artery Scan 12/14/24 14:33 Pulse 90 12/14/24 14:40 Pulse Rhythm Irregular 12/14/24 14:40 Pulse 93 H 12/14/24 13:00 Respiratory Rate 19 12/14/24 14:40 Respiratory Effort Normal 12/14/24 14:40 Respiratory Depth Normal 12/14/24 14:40 Respiratory Pattern Normal 12/14/24 14:40 Blood Pressure 135/71 12/14/24 14:40 Blood Pressure Mean 90 12/14/24 14:19 Blood Pressure Position Supine 12/14/24 11:01 Pulse Oximetry 99 12/14/24 14:40 Oxygen Delivery Method Room Air 12/14/24 14:40 Oxygen Flow Rate 0 12/14/24 14:40 Pain Level 5 12/14/24 14:33 Allergies bupropion Adverse Reaction (Severe, Verified 12/14/24 10:34) seizures 09/02/20- pt reports he fell, Nobody ever told me I had seizures IV IV Catheter Type [Right Saline Lock Forearm] IV Catheter Gauge [Right 18 Forearm] Diet Orders Category Date Time Status Regular/Normal [DIET] Nutrition 12/14/24 Dinner Active Diagnostics 12/14/24 12/14/24 12/14/24 Range/Units 15:00 13:56 13:38 WBC (4.4-10.8) 10^3/uL RBC (4.36-5.78) 10^6/uL Hgb (13.5-17.5) g/dL Hct (40.0-50.0) % MCV (80-95) fL MCH (27.0-33.0) pg MCHC (32.0-36.0) % RDW (11.8-14.1) % Plt Count (130-400) 10^3/uL MPV (8.0-11.0) fL Immature Gran % % Neutrophils % % Lymphocytes % % Monocytes % % Eosinophils % % Basophils % % Nucleated RBC % (0.0-0.3) % Absolute Neutrophils (1.2-6.7) 10^3/uL Absolute Lymphocytes (1.2-3.4) 10^3/uL Absolute Monocytes (0.1-0.8) 10^3/uL Absolute Eosinophils (0.0-0.7) 10^3/uL Absolute Basophils (0.0-0.2) 10^3/uL RBC Morphology Anisocytosis Microcytosis PT Pending INR Pending VBG pH (7.31-7.41) VBG pCO2 (41-51) mmHg VBG pO2 mmHg VBG HCO3 (23-28) mmol/L VBG Total CO2 (24-29) mmol/L VBG O2 Saturation % VBG Base Excess (-2-3) mmol/L VBG Lactate (<or=2.0) mmol/L Sodium (136-145) mmol/L Potassium (3.5-5.1) mmol/L Chloride (98-107) mmol/L Carbon Dioxide (21.0-32.0) mmol/L Anion Gap (3-11) mmol/L BUN (7-18) mg/dL Creatinine (0.70-1.30) mg/dL Est GFR (CKD-EPI 2020) (mL/min/1.73m2) Glucose (74-106) mg/dL Calcium (8.5-10.1) mg/dL Magnesium mg/dL Total Bilirubin (0.2-1.0) mg/dL AST (15-37) U/L ALT (16-63) U/L Alkaline Phosphatase (46-116) U/L Creatine Kinase (39-308) U/L Troponin I Cancelled (<or=76) ng/L Total Protein (6.4-8.2) g/dL Albumin (3.4-5.0) g/dL Salicylates (<2.8) mg/dL Ethyl Alcohol (<10) mg/dL COVID-19 Source SARS-CoV-2 (PCR) (Negative) Influenza Type A (PCR) (Negative) Influenza Type B (PCR) (Negative) RSV (PCR) (Negative) MRSA (TEM-PCR) Pending 12/14/24 12/14/24 Range/Units 12:10 10:50 WBC 8.69 (4.4-10.8) 10^3/uL RBC 5.02 (4.36-5.78) 10^6/uL Hgb 11.1 L (13.5-17.5) g/dL Hct 35.7 L (40.0-50.0) % MCV 71 L (80-95) fL MCH 22.1 L (27.0-33.0) pg MCHC 31.1 L (32.0-36.0) % RDW 20.3 H (11.8-14.1) % Plt Count 165 (130-400) 10^3/uL MPV 9.7 (8.0-11.0) fL Immature Gran % 0.6 % Neutrophils % 80.7 % Lymphocytes % 8.3 % Monocytes % 9.7 % Eosinophils % 0.1 % Basophils % 0.6 % Nucleated RBC % 0.0 (0.0-0.3) % Absolute Neutrophils 7.01 H (1.2-6.7) 10^3/uL Absolute Lymphocytes 0.72 L (1.2-3.4) 10^3/uL Absolute Monocytes 0.84 H (0.1-0.8) 10^3/uL Absolute Eosinophils 0.01 (0.0-0.7) 10^3/uL Absolute Basophils 0.05 (0.0-0.2) 10^3/uL RBC Morphology See Below Anisocytosis 1+ Microcytosis 1+ PT INR VBG pH 7.45 H (7.31-7.41) VBG pCO2 35 L (41-51) mmHg VBG pO2 53 mmHg VBG HCO3 24 (23-28) mmol/L VBG Total CO2 22 L (24-29) mmol/L VBG O2 Saturation 88 % VBG Base Excess 0 (-2-3) mmol/L VBG Lactate 2.5 H* (<or=2.0) mmol/L Sodium 142 (136-145) mmol/L Potassium 4.4 (3.5-5.1) mmol/L Chloride 100 (98-107) mmol/L Carbon Dioxide 26.5 (21.0-32.0) mmol/L Anion Gap 15.5 H (3-11) mmol/L BUN 68 H (7-18) mg/dL Creatinine 2.6 H (0.70-1.30) mg/dL Est GFR (CKD-EPI 2020) 24.48 (mL/min/1.73m2) Glucose 148 H (74-106) mg/dL Calcium 8.9 (8.5-10.1) mg/dL Magnesium 1.8 mg/dL Total Bilirubin 1.9 H (0.2-1.0) mg/dL AST 43 H (15-37) U/L ALT 34 (16-63) U/L Alkaline Phosphatase 75 (46-116) U/L Creatine Kinase 648 H (39-308) U/L Troponin I 64 62 (<or=76) ng/L Total Protein 7.7 (6.4-8.2) g/dL Albumin 4.1 (3.4-5.0) g/dL Salicylates < 2.8 (<2.8) mg/dL Ethyl Alcohol < 3.0 (<10) mg/dL COVID-19 Source Nasopharynx SARS-CoV-2 (PCR) Negative (Negative) Influenza Type A (PCR) Negative (Negative) Influenza Type B (PCR) Negative (Negative) RSV (PCR) Negative (Negative) MRSA (TEM-PCR) 12/14/24 11:15 Blood Culture - Pending Blood 12/14/24 10:50 Blood Culture - Pending Blood Intake and Output - 24 Hour Total 12/14/24 10:18 thru 12/14/24 14:40 Intake Total 900 Output Total 625 Balance 275 Weight 73.391 kg Intake: IV 900 Output: Urine 625 Other: Urine Color Yellow Urine Appearance Clear # Bowel Movements 1 Falls Risk Assessment History of Falls Previous History 12/14/24 14:40 Contributing Factors Impairments,Incontinence 12/14/24 14:40 Ambulatory Aids Uses ambulatory device 12/14/24 14:40 Tubes/Lines With any additional score 12/14/24 14:40 Gait Evaluation W/any additional score 12/14/24 14:40 Cognition No cognitive impairment 12/14/24 14:40 Fall Total Score 76 12/14/24 14:40 Level of Risk Moderate Risk 12/14/24 14:40 Problems (Last Reviewed 12/09/24 @ 18:46 by Barbara Gastelum NP) Acute on chronic kidney failure (Acute) Community acquired bacterial pneumonia (Acute) Severe sepsis (Acute) Acute exacerbation of chronic obstructive pulmonary disease (COPD) (Acute) Acute kidney injury (Acute) ACP (advance care planning) (Acute) Anemia, chronic disease (Acute) Impaired gait and mobility (Acute ~03/2023) Tobacco abuse disorder (Chronic) Alcoholic liver disease (Chronic) CHF (congestive heart failure) (Chronic ~02/2023) Cooper's esophagus (Chronic ~04/2019) Urinary retention (Chronic) Atrial fibrillation (Chronic) v v v v v v v v v Sending and/or Receiving Nurses: Please use comment section below to note any information pertinent to the patient hand-off not included above. Information / Comments: Report received from: DIAN Bates RN @ 14 09
[2024-12-14 15:23] LABS: Prothrombin Time 10.3 sec (9.1-11.1)
[2024-12-14] MEDS: Nicotine 21 MG/24 HR PATCH TD (15:24)
[2024-12-14 15:27] LABS: MRSA PCR Negative (Negative)
[2024-12-14] MEDS: Tamsulosin 0.4 MG CAPCR PO (16:47)
[2024-12-14] MEDS: Mirtazapine 15 MG TAB 7.5 MG PO (19:32)
[2024-12-14] MEDS: Melatonin 3 MG TAB PO (19:32)
[2024-12-14] MEDS: Atorvastatin 40 MG TAB PO (19:32)
[2024-12-14] MEDS: Normal Saline Flush 10 ML SYR IVP (19:32)
[2024-12-15] VITALS (7 sets, daily range): BP systolic 94–134; BP diastolic 60–94; PULSE 67–97; RESP 17–19; TEMP 36.2–36.8; O2SAT 96–100
[2024-12-15 06:13] LABS: BE (Venous) -1 mmol/L (-2-3); HCO3 (Venous) 23 mmol/L (23-28); O2 Sat (Venous) 84 %; TCO2 (Venous) 21 mmol/L (24-29); pCO2 (Venous) 33 mmHg (41-51); pH (Venous) 7.45 (7.31-7.41); pO2 (Venous) 49 mmHg
[2024-12-15] MEDS: Albuterol/Ipratropium 3 ML UPD VIAL UPD (06:30)
[2024-12-15 06:40] LABS: ALT 32 U/L (16-63); AST 37 U/L (15-37); Albumin 3.6 g/dL (3.4-5.0); Alkaline Phosphatase 68 U/L (46-116); Anion Gap 16.6 mmol/L (3-11); BUN 55 mg/dL (7-18); Bilirubin, Direct 0.3 mg/dL (0.0-0.2); Bilirubin, Total 0.9 mg/dL (0.2-1.0); CO2 24.4 mmol/L (21.0-32.0); CREATININE 1.9 mg/dL (0.70-1.30); Calcium 8.4 mg/dL (8.5-10.1); Chloride 102 mmol/L (98-107); Estimated GFR 35.66 (mL/min/1.73m2); Glucose 175 mg/dL (74-106); Magnesium 1.8 mg/dL; Potassium 4.3 mmol/L (3.5-5.1); Sodium 143 mmol/L (136-145); Total Protein 6.8 g/dL (6.4-8.2)
[2024-12-15] MEDS: Tamsulosin 0.4 MG CAPCR PO (08:33)
[2024-12-15] MEDS: Metoprolol CR 50 MG TABCR PO (08:33)
[2024-12-15] MEDS: Normal Saline Flush 10 ML SYR IVP ×4 (08:33→16:49)
[2024-12-15] MEDS: Doxycycline Hyclate 100 MG CAP PO ×2 (08:33→21:22)
[2024-12-15] MEDS: Vitamins B Comp w/C TAB 1 TAB PO (08:33)
[2024-12-15] MEDS: amLODIPine 5 MG TAB PO (08:33)
[2024-12-15] MEDS: Pantoprazole 40 MG TABCR PO ×2 (08:34→21:22)
[2024-12-15] MEDS: predniSONE 20 MG TAB 40 MG PO (08:34)
--- NOTE | 2024-12-15 08:52 | INITIAL_ITS ---
Date of service: 12/15/24 Time of Service: 08:52 Care Management Initial Assmt Initial Assessment Reason for Hospitalization: Pneumonia, sepsis Functional Status/Living Situation Patient Presentation: Khoi lives alone in a second floor apartment ([address] in . He smokes (15 cigs day) and drinks (a 5th of LTD whiskey every 3 days.) He gets his meds delivered by [facility]. He uses [facility] or takes a taxi to go to the grocery store. Unfortunately, they are unable to offer help carrying his groceries and it's hard to get them up to his 2nd floor apartment. Khoi is connected with the COA, his Endband Sizer is Karin Lopes [phone]), she last connected with him on 06/2024. Per Karin, Khoi currently receives MOW. At one time was set up with volunteer supports, but the list of things he wanted them to do got quite long, and they did go back and services dropped off. Based on our conversation, she will put in a new referral. Louise also tried to get him to sign up for LTM when he was in STR and left an application with his son Aime. Shortly after that, Khoi completed STR and was no longer in need of [facility] services so any progress made, stopped. 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 He has occasional doctors appointments at the [facility] and they provide his transportation to [place]. Khoi is not service connected as he does not have a service related disability. Khoi's brother Owen lives in [place] and his 2 sons (? live in [place]/terms of their relationship is unclear at this time.) Khoi states that he doesn't have any problems with withdrawal when he's not at home. States he's currently wearing a nicotine patch, but doesn't need it. He went to the [facility] for STR last year and liked it. Khoi appears unkempt, there is a definite concern for his ability to manage his ADL's at home, especially hygiene . CM will encourage Khoi to reconsider signing up for LTM. [facility] would be a great resource for him and could offer the support with personal hygiene, shopping, meal prep, house keeping etc. Also, Khoi lives in [address] [facility] and may be a good fit for their [facility] program, if not already connected. CM will follow Town of Residence: 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 ) Instrumental Activities of Daily Living (ADLs): Independent and Requires support with Dishes/food prep, Groceries, Laundry and Transportation Medications Medication Management: Issues/Barriers with Obtaining (Gets Meds delivered by [facility] ) Physical Functioning/Mobility Assistive Device: Uses a cane, has a walker he rarely uses. Uses [facility] private vehicle for transport COA services, Community CM is [employer]. Receives MOW, looking to add volunteer services Advance Directives Advance Directives: Do you have an Advance Directive: N 03/19/22 14:58 AD On File at [facility]: N 03/19/22 14:58 Date Asked 12/14/24 12/14/24 10:37 AD Date Reviewed COLST On File at [facility] Yes 03/19/22 14:57 COLST Date Scanned 03/14/23 03/14/23 00:20 Code Status Resuscitation Status Full Code Portal Pt does not currently have a portal and education provided: Yes Insurance Coverage/Financial Issues Insurance: [place] Medicare Medicaid( traditional) Care Team Visit Care Team Role Provider Type Desirae Panda NP Primary Care Provider NURSE PRACTITIONER [facility] Other Providers OTHER Prashant Sullivan MD Emergency Provider [facility] STAFF PHYSICIAN Prashant Rosales Admit Provider [facility] STAFF PHYSICIAN Attending Provider Discharge Potential Discharge Needs: PT Evaluation and PCP F/U Appt Anticipated Barriers to Discharge: None Identified Patient/Family Education Needs: Review discharge instructions, discuss Ask Me Three Transportation: [facility] Transportation: Private vechicle Plan: Anticipate, Khoi will discharge to SNF for STR vs. Home New H services and resumption of community supports and MOW, once medically ready to discharge. PT consult is pending, recommendations to follow. Transportation will be dependent on his disposition and mobility needs at the time of discharge. Pt would be agreeable to SNF for STR, if recommended. He would go back to the [facility] (will need a qualifying stay), but also has a ACO waiver to use at select facilities. Louise at the [facility] is looking into getting him set up with volunteer services. CM will follow and help him start a LTM application, if he is agreeable. Social Determinants of Health Screening Will the Patient Participate in the Screening?: Unable to obtain PFSH All Active Problems (Updated 12/15/24 @ 11:43 by Prashant Rosales) Odynophagia (Acute) Acute on chronic kidney failure (Acute) Community acquired bacterial pneumonia (Acute) Severe sepsis (Acute) Acute exacerbation of chronic obstructive pulmonary disease (COPD) (Acute) Acute kidney injury (Acute) Aspiration pneumonia (Acute) Alcohol intoxication (Acute) Palliative care patient (Acute) ACP (advance care planning) (Acute) Seasonal allergies (Acute) Atherosclerosis of abdominal aorta (Acute) Iliac artery stenosis, bilateral (Acute) Coronary artery calcification seen on CAT scan (Acute) Hiatal hernia (Chronic) Delirium due to multiple etiologies (Acute) Anemia, chronic disease (Acute) CKD (chronic kidney disease) stage 3, GFR 30-59 ml/min (Chronic) Falls frequently (Acute) Blunt head trauma (Acute) Blunt trauma of multiple sites of trunk (Acute) Fall (Acute) Impaired gait and mobility (Acute ~03/2023) Hyperlipidemia (Chronic) Tobacco abuse disorder (Chronic) Cut down 1/2PPD Personal history of noncompliance with medical treatment and regimen (Chronic) Alcoholic liver disease (Chronic) Anemia (Chronic ~02/2022) S/P GI bleed CHF (congestive heart failure) (Chronic ~02/2023) ECHO 02/2022 LVEF 45-50% Depression (Chronic) Plans on getting connected to social work Tineo's esophagus (Chronic ~04/2019) ETOH; Upper endoscopy 03/2019 (see path report--no tineo's?, but 08/15/2019 surg note says +tineo's) Weakness (Acute) LE weakness; Home PT Urinary retention (Chronic) Dr. Ramos COPD (chronic obstructive pulmonary disease) (Chronic) Atrial fibrillation (Chronic) Paroxysmal per hospital records; not anticoagulated secondary to recurrent GI bleeds from chronic EtOH use Medical History Lack of housing Adult failure to thrive Iron deficiency anemia due to chronic blood loss Acute upper gastrointestinal bleeding (~02/2022) Gastric ulcer Troponin level elevated Gout Colchicine prevention Sleeping difficulty Melatonin RX Insomnia Radicular pain of right lower extremity GI bleed Tineo's esophagus Right knee pain UTI (urinary tract infection) Hematemesis Hypomagnesemia Depression Renal insufficiency Alcohol use disorder Smoking hx Surgical History H/O esophagogastroduodenoscopy (~05/2019) [place] [facility] [place] esophagitis w/ non-bleeding esophageal ulcer. 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
[2024-12-15] MEDS: Calcium Carbonate *TUMS* 500 MG CHEW PO (11:05)
[2024-12-15] MEDS: CEFEPIME 2 GM in Normal Saline 100 ML IVPB ×2 (11:06→21:22)
--- NOTE | 2024-12-15 11:31 | PGE_ITS ---
Date of Service Date of service: 12/15/24 Time of Service: 09:50 Assessment and Plan Assessment and plan (1) Community acquired bacterial pneumonia: Status: Acute Assessment and plan: Started on cefepime and vanco given sepsis picture as well as doxy. MRSA nares negative, vancomycin not continued. Will continue cefepime, adjust dose with improved renal function, continue doxy. Improving (2) Severe sepsis: Status: Acute Assessment and plan: Met criteria with initial elevated RR, HR, lactate, and respiratory infection. Improved symptoms and vital signs with a 1500 isotonic fluids in ED. Abx as above, stable today clinically. (3) Acute exacerbation of chronic obstructive pulmonary disease (COPD): Status: Acute Assessment and plan: Treated with dexamethasone and nebs in ED. Now on oral prednisone. Antibiotics for pneumonia as above. (4) Atrial fibrillation: Status: Chronic Assessment and plan: Rate better controlled back on oral metoprolol, will continue this. He has not been anticoagulated due to fall risk and acitve alcoholism. This should be reconsidered before discharge if he is placed with nursing care. (5) Tobacco abuse disorder: Status: Chronic Assessment and plan: NRT patch prn (6) CHF (congestive heart failure): Status: Chronic Assessment and plan: He does not appear to be in active CHF based on exam and CXR. Troponins flat on admission, continue to monitor. (7) Cooper's esophagus: Status: Chronic Assessment and plan: resume PPI. He does have a history of UGI bleed. (8) Odynophagia: Status: Acute Assessment and plan: With h/o Cooper's and alcohol he is at high risk of cancer. However he described acute symptoms with infection. For now, try mylanta/lidocaine. Consider EGD if not imrpoving. (9) Alcoholic liver disease: Status: Chronic Assessment and plan: Abnormal transaminases mild, but new mild bilirubin elavation. INR reassuring that his is not severe alcoholic hepatitis. Improved today, bili normal. (10) Urinary retention: Status: Chronic Assessment and plan: Retaining in ED, straight cathed. Continue to monitor bladder. Resuming alpha kassie helped, increase to his previous 0.8mg tamsulosin (11) Anemia, chronic disease: Status: Acute Assessment and plan: stable compared to chronic. Follow. (12) Impaired gait and mobility: Status: Acute Assessment and plan: h/o frequent falls. PT referral, still pending. He may need placement. (13) Acute on chronic kidney failure: Status: Acute Assessment and plan: Appeared to have some degree of acute on chronic renal insufficiency on admission. Back to baseline today after fluids and emptying bladder. (14) Alcohol withdrawal: Status: Resolved Assessment and plan: Mild symptoms. On CIWA but not scoring now, can space assessments (15) DVT prophylaxis: Status: Resolved Assessment and plan: enoxaparin, renal dosing (16) ACP (advance care planning): Status: Acute Assessment and plan: He is FULL CODE. He has seen palliative but unsafe living situation makes home visits difficult. He is open to placement. Subjective Subjective Patient reports: denies nausea, vomiting or fever Interval history since last seen: His main complaint is throat pain that is worse with swallowing. He is also having some heartburn. Would like tums. He is able to drink cold fluids more than he was at home. Not eating much. Shortness of breath is better. Still productive cough, but less. Voiding is not easy but is better back on his medication. No chest pain or palpitations. Exam Narrative Exam Narrative: GEN: Alert and oriented, llying on his side in bed but able to sit up with less distress LUNGS: Diffusely diminished, normal effort, better air movement today and no rales/rhonchi. CV: Irregularly irregular, rate 80s, with no murmurs, gallops, or rubs. ABD: active bowel sounds, soft, nontender, EXT: no cyanosis, clubbing, or edema PSYCH: normal mood and affect, no hallucinations evident Objective Last Vital Signs Temp 36.8 C 12/15/24 11:27 Pulse 84 12/15/24 11:27 Resp 17 12/15/24 11:27 BP 125/81 12/15/24 11:27 Pulse Ox 98 12/15/24 11:27 Laboratory Results - last 24 hr 12/14/24 12/14/24 12/14/24 10:50 12:10 13:38 PT INR VBG pH VBG pCO2 VBG pO2 VBG HCO3 VBG Total CO2 VBG O2 Saturation VBG Base Excess Sodium 142 Potassium 4.4 Chloride 100 Carbon Dioxide 26.5 Anion Gap 15.5 H BUN 68 H Creatinine 2.6 H Est GFR (CKD-EPI 2020) 24.48 Glucose 148 H Calcium 8.9 Magnesium 1.8 Total Bilirubin 1.9 H Conjugated Bilirubin AST 43 H ALT 34 Alkaline Phosphatase 75 Creatine Kinase 648 H Troponin I 62 64 Cancelled Total Protein 7.7 Albumin 4.1 Salicylates < 2.8 Ethyl Alcohol < 3.0 COVID-19 Source Nasopharynx SARS-CoV-2 (PCR) Negative Influenza Type A (PCR) Negative Influenza Type B (PCR) Negative RSV (PCR) Negative MRSA (TEM-PCR) 12/14/24 12/14/24 12/15/24 13:56 15:00 06:00 PT 10.3 INR 1.0 VBG pH 7.45 H VBG pCO2 33 L VBG pO2 49 VBG HCO3 23 VBG Total CO2 21 L VBG O2 Saturation 84 VBG Base Excess -1 Sodium Potassium Chloride Carbon Dioxide Anion Gap BUN Creatinine Est GFR (CKD-EPI 2020) Glucose Calcium Magnesium Total Bilirubin Conjugated Bilirubin AST ALT Alkaline Phosphatase Creatine Kinase Troponin I Total Protein Albumin Salicylates Ethyl Alcohol COVID-19 Source SARS-CoV-2 (PCR) Influenza Type A (PCR) Influenza Type B (PCR) RSV (PCR) MRSA (TEM-PCR) Negative 12/15/24 06:08 PT INR VBG pH VBG pCO2 VBG pO2 VBG HCO3 VBG Total CO2 VBG O2 Saturation VBG Base Excess Sodium 143 Potassium 4.3 Chloride 102 Carbon Dioxide 24.4 Anion Gap 16.6 H BUN 55 H Creatinine 1.9 H Est GFR (CKD-EPI 2020) 35.66 Glucose 175 H Calcium 8.4 L Magnesium 1.8 Total Bilirubin 0.9 Conjugated Bilirubin 0.3 H AST 37 ALT 32 Alkaline Phosphatase 68 Creatine Kinase Troponin I Total Protein 6.8 Albumin 3.6 Salicylates Ethyl Alcohol COVID-19 Source SARS-CoV-2 (PCR) Influenza Type A (PCR) Influenza Type B (PCR) RSV (PCR) MRSA (TEM-PCR) PAWSS Have you Been Recently Intoxicated or Drunk Within the Last 30 days?: Yes Have you Ever Experienced Previous Episodes of Alcohol Withdrawal?: Yes Have you ever Experienced Withdrawal Seizures?: Unable to Obtain Have you ever Experienced Delirium Tremens(DT)s?: Unable to Obtain Have you ever undergone Alcohol Rehabilitation Treatment (i.e, inpt ot outpatient treatment programs)?: Unable to Obtain Have you ever Experienced Blackouts?: Unable to Obtain Have you ever Combined Alcohol with other Downers within the last 90 days?: Unable to Obtain Have you ever Combined Alcohol with any other Substance of Abuse during the last 90 days?: Unable to Obtain Positive Blood Alcohol level on Presentation? [PCS.BAL]: No Evidence of Increased Autonomic Activity (i.e. HR>120, tremor, sweating, agitation, nausea)?: Unable to Obtain Result: 2 Time Spent with Patient Time Spent with Patient: >50 minutes Time was spent: preparing to see the patient(eg.review tests), obtaining and/or reviewing separately otained hiistory, ordering medications,tests, procedures, referring, communicating with other health inspector health care facilities, indepentently interpreting results, counseling the patient and care coordination
[2024-12-15 12:58] LABS: HCT 34.4 % (40.0-50.0); HGB 10.5 g/dL (13.5-17.5); MCH 21.9 pg (27.0-33.0); MCHC 30.5 % (32.0-36.0); MCV 72 fL (80-95); MPV 9.5 fL (8.0-11.0); Platelet Count 122 10^3/uL (130-400); RDW 20.6 % (11.8-14.1); RDW-SD 48.2 fL; WBC 8.02 10^3/uL (4.4-10.8)
[2024-12-15] MEDS: Enoxaparin 40 MG/0.4 ML SYR SC (14:13)
--- NOTE | 2024-12-15 14:56 | PT.INNT ---
PT Notes Visit Reasons: Pneumonia, Sepsis, SAUL, Alcohol Withdrawal Patient refused offer of PT services twice today stating that he is so weak and tired. He also added that he has not slept well last night and is in no good shape to do anything. Nurse Nadege was in room when patient refused.
--- NOTE | 2024-12-15 15:04 | PT.INIE ---
PT Notes Visit Reasons: Pneumonia, Sepsis, SAUL, Alcohol Withdrawal Inpatient Physical Therapy Initial Evaluation Date: 12/15/2024 Referring Doctor: Prashant Rosales MD PT Orders: Eval for Assistive Device. Safety Consult for D/C. Fall Safety Assessment Precautions: Fall. Standard. Activity as tolerated. Patient Profile/Admitting Diagnosis: Khoi is a 79-year-old male with past medical history significant for tobacco abuse disorder, chronic alcoholism and COPD who presented to the ED on 12/14/2024 with chief complaints of worsening cough. He is admitted for management of community acquired pneumonia, seere sepsis, COPD exacerbation, AF, CHF, EtOH abuse disorder, urinary retention, anemia, and acute on chronic kidney injury. PMHX: All Active Problems Acute on chronic kidney failure (Acute) Community acquired bacterial pneumonia (Acute) Severe sepsis (Acute) Acute exacerbation of chronic obstructive pulmonary disease (COPD) (Acute) Acute kidney injury (Acute) Aspiration pneumonia (Acute) Alcohol intoxication (Acute) ACP (advance care planning) (Acute) Seasonal allergies (Acute) Palliative care patient (Acute) Atherosclerosis of abdominal aorta (Acute) Iliac artery stenosis, bilateral (Acute) Coronary artery calcification seen on CAT scan (Acute) Hiatal hernia (Chronic) Delirium due to multiple etiologies (Acute) Anemia, chronic disease (Acute) CKD (chronic kidney disease) stage 3, GFR 30-59 ml/min (Chronic) Falls frequently (Acute) Blunt head trauma (Acute) Blunt trauma of multiple sites of trunk (Acute) Fall (Acute) Impaired gait and mobility (Acute ~03/2023) Hyperlipidemia (Chronic) Personal history of noncompliance with medical treatment and regimen (Chronic) Alcoholic liver disease (Chronic) CHF (congestive heart failure) (Chronic ~02/2023) ECHO 02/2022 LVEF 45-50% Anemia (Chronic ~02/2022) S/P GI bleedDepression (Chronic) Plans on getting connected to social workBarrett's esophagus (Chronic ~04/2019) ETOH; Upper endoscopy 03/2019 (see path report--no tineo's?, but 08/15/2019 surg note says +tineo's) Weakness (Acute) LE weakness; Home PTUrinary retention (Chronic) Dr. Ramos Tobacco abuse disorder (Chronic) Cut down 1/2PPD Atrial fibrillation (Chronic) Paroxysmal per hospital records; not anticoagulated secondary to recurrent GI bleeds from chronic EtOH use COPD (chronic obstructive pulmonary disease) (Chronic) Medical History Lack of housing Adult failure to thrive Iron deficiency anemia due to chronic blood loss Acute upper gastrointestinal bleeding (~02/2022) Gastric ulcer Troponin level elevated Gout Colchicine preventionSleeping difficulty Melatonin RXInsomnia Radicular pain of right lower extremity GI bleed Tineo's esophagus Right knee pain UTI (urinary tract infection) Hematemesis Hypomagnesemia Depression Renal insufficiency Alcohol use disorder Smoking hx Surgical History H/O esophagogastroduodenoscopy (~05/2019) Repeat on 10/26/20 [facility] severe reflux esophagitis w/ non-bleeding esophageal ulcer. Multiplle inflammatory appearing nodules at [facility] Social History/Home Situation: Patient lives alone in an apartment with 15 steps to get in with a rail on the right going up.?Independent with FWW for all mobility ADL performance.? No longer has a caregiver who comes in for 1-3 hours twice a week to do chores and laundry. He is otherwise able to prepare his own meals on other days.? Equipment Owned/DME: FWW, SPC SUBJECTIVE: Refused PT services this morning and afternoon saying that he was very tired, weak, and did not sleep well last night. However with intercession of CONOR Damian, patient agreed the third time PT came back. OBJECTIVE: General Observation: Resting in bed.? IV access in L UE.? Mental Status: A & O x4 Pain: None reported ROM: Right Upper Extremity: ? Shoulder Flexion WFL. Shoulder abduction WFL. Elbow flexion WFL. Wrist flexion WFL. Functional opening and closing of hand WFL. Left Upper Extremity:? Shoulder Flexion WFL. Shoulder abduction WFL. Elbow flexion WFL. Wrist flexion WFL. Functional opening and closing of hand WFL. Right Lower Extremity: Hip flexion WFL. Hip abduction WFL. Knee flexion WFL. Ankle dorsiflexion to neutral only. Ankle plantarflexion WFL. Left Lower Extremity: Hip flexion WFL. Hip abduction WFL. Knee flexion WFL. Ankle dorsiflexion to neutral only. Ankle plantarflexion WFL. Strength: Right Upper Extremity: Shoulder flexors 4-/5. Shoulder abductors 4-/5. Elbow flexors 4-/5. Elbow extensors 4-/5. Allergist/Immunologist strong. Left Upper Extremity: Shoulder flexors 4-/5. Shoulder abductors 4-/5. Elbow flexors 4-/5. Elbow extensors 4-/5. Allergist/Immunologist strong. Right Lower Extremity: Hip flexors 4-/5. Hip abductors 4-/5. Knee flexors 4-/5. Knee extensors 4-/5. Ankle dorsiflexors 3-/5. Ankle plantarflexors 4-/5. Left Lower Extremity: Hip flexors 4-/5. Hip abductors 4-/5. Knee flexors 4-/5. Knee extensors 4-/5. Ankle dorsiflexors 3-/5. Ankle plantarflexors 4-/5. SENSATION: Intact as to pain and pressure in bilateral lower extremities BED MOBILITY/TRANSFERS: Minimal cueing provided for use of B hands as needed for support, movement sequence, AD management, and posture to reduce fall risk and minimize pain report Supine to sit stand by assist with HOB at 30 degrees Sit to stand stand by assist with FWW Stand to sit stand by assist with FWW GAIT: Facilitated safe and correct performance of level surface ambulation covering a distance of 50 feet using front wheeled walker with standby assist with slow reciprocal swing through gait pattern and good awareness of posture as well as safe AD management. Was fatigued after activity. felt short of breath initially but resolved eventually after about 2-3 minutes. STAIRS: [facility] BALANCE: Static sitting Normal Dynamic Sitting Good Static Standing Fair Dynamic Standing Fair Mobility Limitations Standardized Measure [facility] ? AM -PAC ? ?6 clicks? Basic Mobility Inpatient Short Form: Raw score: 22 ? CMS score: 21%? ? 4 Stage Balance Skye: Deferred for this session Informed Consent/Education:? Patient was instructed in purpose of PT consult and plan of care. Agreeable to proceed with established PT POC to achieve personal goals. ASSESSMENT: ? Minimal assist to sit up at edge of bed, stand by assist to stand up and walk a short distance using FWW. Activity tolerance decreased with patient fatigued and short of breath right after activity. Has equipment at home. Needs services to work on progressing mobility level to unassisted indoor ambulation and outdoor ambulation using single point cane per prior level of function. Patient presents with clinical signs and symptoms consistent with current/admitting diagnoses that have resulted to mobility limitations, gait instability, generalized weakness, and impairment of motor control as demonstrated by the following impairment level findings: 1.? Decreased strength to B UE/LE major muscle groups 2.? Impaired sitting/standing balance Impairments are contributing to the following functional limitations: 1.? Inability to safely ambulate without physical assistance 2.? Increase completion time for mobility ADL performance 3.? Increased fall risk 4.? Inability to negotiate steps alone safely Patient is assessed as a 05412 moderate complexity based on the following: History: Patient is a 79-year-old male with a past medical history, impairment level findings, and functional limitations as listed above Examination: Demonstrable impairment in strength, balance, and range of motion as tested above Presentation: Evolving Decision Makin moderate complexity Goals: Goals X1 week 1. Supine-Sit independent 2. Sit-Supine independent 3. Sit-Stand independent with FWW 4. Stand-Sit independent with FWW 5. Bed-Chair independent with FWW 6. Chair-Bed independent with FWW 7. Independent gait on level surface with use of FWW for at least 300 feet without report of pain nor dyspnea 8. Independent stair negotiation while holding onto bilateral rails for at least 10 steps without report of pain nor dyspnea 9. Independent with home exercise program 10. Good static and dynamic standing balance/tolerance Plan of Care/Treatment Plan: 1-2x/day, 7 days/week x 1 week. Plan of care has been reviewed with the GENERAL DUTY NURSE providing the service under Physical Therapy direction. Premedicate for pain due to chronic R leg and back pain. Initiate Physical Therapy intervention for pain management as needed, strengthening, bed mobility, transfers, gait, stairs, balance training, and use of assistive device. DISCHARGE RECOMMENDATIONS: SHort-term SNF vs. PT based on ability of patient to progress towards goals TREATMENT CODE/TIME: 00576 x 18 minutes for 1 unit (15:04-15:22). Thank you for the opportunity to participate in the care of this patient. Franchesca Hawley PT, DPT, CLT [facility] [place], [place]
--- NOTE | 2024-12-15 15:43 | CHAPLAIN ---
Khoi was sitting at the edge of the bed eating ice cream when I stopped in. He said the ice cream numbs his throat and he feels better. He shared some personal history telling me about growing up in [place] and attending the [employer] regularly until he was 19. 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 He considered going into the ministry at one point. He said he believes that people can be serious about their jennifer without attending spiritism on Saturday and he believes that most religions are based on the same principles. I will continue to visit.
[2024-12-15] MEDS: Lactated Ringers 500 ML IV (16:48)
[2024-12-15] MEDS: Mirtazapine 15 MG TAB 7.5 MG PO (21:21)
[2024-12-15] MEDS: Melatonin 3 MG TAB PO (21:21)
[2024-12-15] MEDS: Atorvastatin 40 MG TAB PO (21:22)
[2024-12-16 01:29] VITALS: RESP 9
[2024-12-16] MEDS: Albuterol/Ipratropium 3 ML UPD VIAL UPD (01:29)
[2024-12-16 01:59] VITALS: RESP 9
[2024-12-16 06:44] VITALS: BP 100/61; PULSE 99; RESP 18; TEMP 36.2; O2SAT 96
[2024-12-16] MEDS: Vitamins B Comp w/C TAB 1 TAB PO (07:31)
[2024-12-16] MEDS: Pantoprazole 40 MG TABCR PO ×2 (07:32→20:10)
[2024-12-16] MEDS: Normal Saline Flush 10 ML SYR IVP ×2 (07:32→20:09)
[2024-12-16] MEDS: Doxycycline Hyclate 100 MG CAP PO ×2 (07:32→20:10)
[2024-12-16] MEDS: predniSONE 20 MG TAB 40 MG PO (07:32)
[2024-12-16] MEDS: Metoprolol CR 50 MG TABCR PO (07:32)
[2024-12-16] MEDS: LORazepam 1 MG TAB PO/SL (07:44)
[2024-12-16 08:46] VITALS: RESP 18
[2024-12-16 09:31] LABS: Absolute Basophil Count 0.02 10^3/uL (0.0-0.2); Absolute Eosinophil Count 0.01 10^3/uL (0.0-0.7); Absolute Lymphocyte Count 0.77 10^3/uL (1.2-3.4); Absolute Monocyte Count 0.62 10^3/uL (0.1-0.8); Absolute Neutrophil Count 8.77 10^3/uL (1.2-6.7); Basophils % 0.2 %; Eosinophils % 0.1 %; HCT 34.2 % (40.0-50.0); HGB 10.7 g/dL (13.5-17.5); Lymphocytes % 7.5 %; MCH 22.5 pg (27.0-33.0); MCHC 31.3 % (32.0-36.0); MCV 72 fL (80-95); MPV 9.4 fL (8.0-11.0); Neutrophils % 85.2 %; Platelet Count 133 10^3/uL (130-400); RBC 4.75 10^6/uL (4.36-5.78); RDW 21.2 % (11.8-14.1); RDW-SD 49.1 fL; WBC 10.29 10^3/uL (4.4-10.8)
--- NOTE | 2024-12-16 09:32 | PT.INTREAT ---
PT Notes Visit Reasons: Pneumonia, Sepsis, SAUL, Alcohol Withdrawal Inpatient Physical Therapy Treatment Note Date: 12/16/2024 Precautions: Fall. Standard. Activity as tolerated. SUBJECTIVE: AM visit: Pleasant and cooperative. Looking forward to working hard so he goes home directly, hoping he could bypass SNF if he can. Verbalized willingness to cooperate with PT so he could get his leg strengthened. Fatigued after session and was glad to go back to bed to rest so he could again be ready for the afternoon session. Wnated to try the stairs this afternoon. PM visit: Ready to do afternoon session. Stated that he expressed to hospitalist his willingness to stop alcohol consumption. He is whopeful to get better in 2-3 days to safely go home. Proud about having walked the whole nurses' loop and having done exercises without his breath getting too labored. OBJECTIVE: General Observation: Seated on chair.? IV access in L UE.? Mental Status: A & O x 4 Pain: None reported BED MOBILITY/TRANSFERS: Minimal cueing provided for use of B hands as needed for support, movement sequence, AD management, and posture to reduce fall risk and minimize pain report Supine to sit stand by assist with HOB at 30 degrees Sit to stand stand by assist with FWW Stand to sit stand by assist with FWW GAIT: AM session: Facilitated safe and correct performance of level surface ambulation covering a distance of 100 feet + 100 feet using front wheeled walker with standby assist with slow reciprocal swing through gait pattern and good awareness of posture as well as safe AD management. Was fatigued after activity and felt short of breath initially but resolved eventually after about 2-3 minutes of activty cessation and rest. PM session: Covered 250 feet of [facility] hallway using his FWW with stand by assist. Minimal shortness of breath only after activity despite simultaneous walking and talking. STAIRS: Patient politely requested to try out stairs torrw as he did not want to overdo today's session THERA EX: Guided patient with safe and accurate execution of seated exercises for 10 reps each: Seated marches LAQs Ankle DF/PF BALANCE: Static sitting Normal Dynamic Sitting Good Static Standing Fair Dynamic Standing Fair ASSESSMENT: ? Minimal assist to sit up at edge of bed, stand by assist to stand up and walk a short distance using FWW. Activity tolerance decreased with patient fatigued and short of breath right after activity. Has equipment at home. Needs services to work on progressing mobility level to unassisted indoor ambulation and outdoor ambulation using single point cane per prior level of function. PLAN OF CARE: 1-2x/day, 7 days/week x 1 week. Plan of care has been reviewed with the SENIOR OUTSIDE SALES REPRESENTATIVE providing the service under Physical Therapy direction. Premedicate for pain due to chronic R leg and back pain. Continue with Physical Therapy intervention for pain management as needed, strengthening, bed mobility, transfers, gait, stairs, balance training, and use of assistive device. DISCHARGE RECOMMENDATIONS: PT vs short-term SNF based on ability of patient to progress towards goals TREATMENT CODE/TIME: Session 1--73545 x 27 minutes for 2 units (09:32-09:59). Session2--67285 x 12 minutes, 38308 x 14 minutes for 1 unit (15:40-16:06).
[2024-12-16 09:42] LABS: Diff Comment RBC Morph Reviewed; Hypochromasia 1+; Microcytosis 1+
[2024-12-16 09:46] LABS: Anion Gap 8.4 mmol/L (3-11); BUN 48 mg/dL (7-18); CO2 27.6 mmol/L (21.0-32.0); CREATININE 1.6 mg/dL (0.70-1.30); Calcium 8.4 mg/dL (8.5-10.1); Chloride 106 mmol/L (98-107); Estimated GFR 43.83 (mL/min/1.73m2); Glucose 164 mg/dL (74-106); Potassium 4.3 mmol/L (3.5-5.1); Sodium 142 mmol/L (136-145)
[2024-12-16] MEDS: CEFEPIME 2 GM in Normal Saline 100 ML IVPB (10:00)
[2024-12-16 10:49] VITALS: BP 132/96; PULSE 87; RESP 16; TEMP 36.6; O2SAT 99
--- NOTE | 2024-12-16 12:02 | W.PM.PROGNOT ---
Date of Service Date of service: 12/16/24 Time of Service: 12:02 Assessment and Plan Assessment and plan (1) Community acquired bacterial pneumonia: Status: Acute Assessment and plan: Started on cefepime and vanco given sepsis picture as well as doxy. MRSA nares negative, vancomycin not continued. Clearly imrpoved, transition to oral antibiotics amox/clav with doxy. (2) Severe sepsis: Status: Acute Assessment and plan: Met criteria with initial elevated RR, HR, lactate, and respiratory infection. Improved symptoms and vital signs with a 1500 isotonic fluids in ED, now resolved. (3) Acute exacerbation of chronic obstructive pulmonary disease (COPD): Status: Acute Assessment and plan: Treated with dexamethasone and nebs in ED. Now on oral prednisone. Antibiotics for pneumonia as above, has stabilized. (4) Atrial fibrillation: Status: Chronic Assessment and plan: Rate better controlled back on oral metoprolol, will continue this. He has not been anticoagulated due to fall risk and acitve alcoholism. This should be reconsidered before discharge if he is placed with nursing care. (5) Alcohol use disorder: Assessment and plan: He wants to try naltrexone, start tomorrow as liver function is getting better. He doesn't want rehab, AA. He is open to disaster recovery specialist if it's a good fit. Contact recovery center. (6) Tobacco abuse disorder: Status: Chronic Assessment and plan: He doesn't want NRT. Doesn't feel up to quitting now. (7) Cooper's esophagus: Status: Chronic Assessment and plan: resumed PPI. He does have a history of UGI bleed. (8) Odynophagia: Status: Acute Assessment and plan: With h/o Cooper's and alcohol he is at high risk of cancer. However he described acute symptoms with infection. Much imrpoved with mylanta/lidocaine, could also simply be recovering from an acute infection. Given risk, he should have EGD if this goes on more than 2 weeks, but not urgent. (9) Alcoholic liver disease: Status: Chronic Assessment and plan: Abnormal transaminases mild, but new mild bilirubin elavation. INR reassuring that his is not severe alcoholic hepatitis. Improved 12/15, bili normal. Follow as outpatient. (10) Urinary retention: Status: Chronic Assessment and plan: Retaining in ED, straight cathed. Resumed alpha kassie and he is urinating. (11) Anemia, chronic disease: Status: Acute Assessment and plan: stable compared to chronic. Follow. (12) Impaired gait and mobility: Status: Acute Assessment and plan: h/o frequent falls. Working with PT. (13) Acute on chronic kidney failure: Status: Acute Assessment and plan: Appeared to have some degree of acute on chronic renal insufficiency on admission. Back to baseline as of 12/15 after fluids and emptying bladder. (14) Alcohol withdrawal: Status: Resolved Assessment and plan: Mild symptoms. On CIWA but scoring minimally, can discontinue the protocol. (15) ACP (advance care planning): Status: Acute Assessment and plan: He is FULL CODE. He has seen palliative but unsafe living situation makes home visits difficult. He now wants to go home but willing to do short term rehab. CM and palliative care working with this patient. (16) DVT prophylaxis: Status: Resolved Assessment and plan: enoxaparin, renal dosing Subjective Subjective Patient reports: feels better; denies nausea, vomiting or fever Interval history since last seen: Events: Started on maalox/lidocaine for odynophagia He is happy with the medicaiton for his throat. He ate a full meal this morning for the first time in a week or so. He feels better. He is working with PT, his legs still feel weak. His breathing is getting better. He did get one dose of lorazepam per CIWA but more related to anxiety than clear withdrawal. Exam Narrative Exam Narrative: GEN: Alert and oriented, walking with PT, no acute distress LUNGS: Diffusely diminished, normal effort, better air movement today and no rales/rhonchi. CV: Irregularly irregular, rate 80s, with no murmurs, gallops, or rubs. ABD: active bowel sounds, soft, nontender, EXT: no cyanosis, clubbing, or edema PSYCH: normal mood and affect, no hallucinations evident Objective Last Vital Signs Temp 36.6 C 12/16/24 10:49 Pulse 87 12/16/24 10:49 Resp 16 12/16/24 10:49 BP 132/96 H 12/16/24 10:49 Pulse Ox 99 12/16/24 10:49 Laboratory Results - last 24 hr 12/15/24 12/16/24 12:50 09:25 WBC 8.02 10.29 RBC 4.80 4.75 Hgb 10.5 L 10.7 L Hct 34.4 L 34.2 L MCV 72 L 72 L MCH 21.9 L 22.5 L MCHC 30.5 L 31.3 L RDW 20.6 H 21.2 H Plt Count 122 L 133 MPV 9.5 9.4 Immature Gran % 1.0 Neutrophils % 85.2 Lymphocytes % 7.5 Monocytes % 6.0 Eosinophils % 0.1 Basophils % 0.2 Nucleated RBC % 0.0 Absolute Neutrophils 8.77 H Absolute Lymphocytes 0.77 L Absolute Monocytes 0.62 Absolute Eosinophils 0.01 Absolute Basophils 0.02 RBC Morphology See Below Hypochromasia 1+ Microcytosis 1+ Sodium 142 Potassium 4.3 Chloride 106 Carbon Dioxide 27.6 Anion Gap 8.4 BUN 48 H Creatinine 1.6 H Est GFR (CKD-EPI 2020) 43.83 Glucose 164 H Calcium 8.4 L PAWSS Have you Been Recently Intoxicated or Drunk Within the Last 30 days?: Yes Have you Ever Experienced Previous Episodes of Alcohol Withdrawal?: Yes Have you ever Experienced Withdrawal Seizures?: Unable to Obtain Have you ever Experienced Delirium Tremens(DT)s?: Unable to Obtain Have you ever undergone Alcohol Rehabilitation Treatment (i.e, inpt ot outpatient treatment programs)?: Unable to Obtain Have you ever Experienced Blackouts?: Unable to Obtain Have you ever Combined Alcohol with other Downers within the last 90 days?: Unable to Obtain Have you ever Combined Alcohol with any other Substance of Abuse during the last 90 days?: Unable to Obtain Positive Blood Alcohol level on Presentation? [PCS.BAL]: No Evidence of Increased Autonomic Activity (i.e. HR>120, tremor, sweating, agitation, nausea)?: Unable to Obtain Result: 2 Time Spent with Patient Time Spent with Patient: 35-49 minutes Time was spent: preparing to see the patient(eg.review tests), obtaining and/or reviewing separately otained hiistory, ordering medications,tests, procedures, referring, communicating with other health healthcare administrator, indepentently interpreting results, counseling the patient and care coordination
--- NOTE | 2024-12-16 12:37 | PDOC.CMPRO ---
Date of service: 12/16/24 Time of Service: 12:37 Care Management Progress Note Progress Note Text Progress Note Text: Khoi agrees to STR, he is motivated to improve his ambulation so he can continue to live independently in his 2nd floor apt. When he's finished with rehab, his plan is to return home, hopefully with increased supports. Louise from the [employer] is working on getting him re-established with their volunteer services, she can't guarantee that there will be availability. Khoi expressed interest in recovery support and is willing to meet with [facility]. He is sleeping now, however CM did notify the center and a retail performance coach will meet with him first thing in the morning. CM will follow. Discharge Anticipated Barriers to Discharge: None Identified Patient/Family Education Needs: Review discharge instructions, discuss Ask Me Three Transportation: [facility] Transportation: Private vechicle Plan: Recommendation is SNF for STR vs home with services. He has [place] [facility] [place] [place] 2 other [place], he likes it there and they are reviewing his referral. If [place] [facility] [place] bed, they may be able to take him tomorrow if he's medically ready. Transportation will be coordinated with [facility] (private vehicle.) His LTM application has not been started, CM updated Louise. Social Determinants of Health Screening Will the Patient Participate in the Screening?: Unable to obtain
--- NOTE | 2024-12-16 12:58 | W.PALLCONSUL ---
Date of service: 12/16/24 Time of Service: 11:00 History of Present Illness Narrative: Mr. Joy is a 79 y/o M previously established PC pt, currently hospitalized 2/2 PNA; PMHx sig for AUD (w/ongoing use), CHF (h/o NSTEMI), A fib, COPD, h/o GIB w/ulcers; Hospital Course: presented to ED on 12/09 w/worsening SOB and acute alcohol intoxication, dx w/PNA, monitored to sobriety and discharged home w/Rx for abx, he never picked up his meds, never started, then got worse; returning to ED on 12/14 w/worsening cough, SOB and weakness; admitted w/CAP, sepsis and COPD exacerbation, started on cefepime and doxycycline, he is feeling better; PT consult recommends SNF vs w/PT on discharge; on CIWA protocol per staff: he was describing throat pain, now resolved; working w/PT appropriately; has been a little grumpy at times, but has been apologetic afterwards, today is behaving better. was a little anxious today, scored 5 on CIWA 1mg Ativan w/good effect, previously not scoring. PT w/stand by assist today, went well Rufino is feeling better today. Happy that his throat feels better, and able to tolerate food, went a few days w/o being able to eat d/t sore throat, maybe c/b increased coughing. He recites his recent ED presentation and PNA dx, never started abx and worsening status, he claims no one delivered his meds, he never called however. He wants to return home, despite earlier during this admission stating he'd be open minded to returning to the [facility]. He is not ready to return home at this time, relying for support from staff right now, life savers, he wants to be in his home w/more supports as a goal. He may be open minded to a short stay at SNF, if he can leave when he wants. He continues to need all home meds, has not seen PCP since May. no f/u scheduled at this time [facility] to [facility] provider [facility]ently. Was previously qualifying for what sounds like [facility] program, however this was stopped after his stay at the [facility] where he did not need those supports Connected w/Analia SANTOS, has not seen her since June, they were previously a good support and providing assistance he needed, putting in volunteer supports He does not have LTM, would need help w/application Assessment and Plan Assessment and plan (1) Acute on chronic kidney failure: Status: Acute (2) Community acquired bacterial pneumonia: Status: Acute Assessment and plan: improving continue cefepime and doxycycline (3) Acute exacerbation of chronic obstructive pulmonary disease (COPD): Status: Acute Assessment and plan: oral prednisone and abx currently - will need meds Rx'd on discharge (4) Falls frequently: Status: Acute Assessment and plan: multifactorial - typically unable to get up stable today w/PT, stand by assist, recommendations for SNF vs Home w/HH - concerns at home that he will not work w/HH, historically does not engage w/home care - ongoing AUD certainly impacts his fall risk (5) Tobacco abuse disorder: Status: Chronic Assessment and plan: continue nicotine patch he smokes in his home at stove top, increased SOB/dyspnea w/limited smoking (6) Alcohol use disorder: Assessment and plan: w/ongoing use - on CIWA protocol, scoring 5 today, received 1mg Ativan w/good effect no plans for cessation, previously w/no use when at SNF, did well (7) Impaired instrumental activities of daily living: Status: Acute Assessment and plan: significant, requires assistance w/all - needs all meds refilled, however never calls them in CM call and [facility] to [facility] to determine what he is currently doing with them; does he qualify for [facility] CM and PC both called [facility]; previously told that [facility] will work on connecting him with volunteers and enrolled in their program under [employer], bambi funding should be available for his in home care contacted PCP office to coordinate appropriate medication refills, to coordinate further w/[facility] CM recommend [facility] coordinate completion of LTM application (8) Medication care plan discussed with primary care provider: Status: Acute Assessment and plan: med rec in home on visit 12/08/24 w/medications requesting - contacted CCC at PCP office to coordinate refills (9) ACP (advance care planning): Status: Acute Assessment and plan: reviewed discharge plan, encouraging short stay in SNF for ongoing supports to ensure his safety and recovery reviewed need for more home supports if to return home, whether w/[facility] or [facility] or both, calls as above, Rufino needs full assist w/working with these supports reviewed medications and refills, and current plan (10) Palliative care patient: Status: Acute Assessment and plan: PC will not be doing home visits for Rufino at this time d/t previous unsafe environment, happy to see him at the [facility] or other community living, or if he wants to present for OV suspect he will be discharged prior to PC availability on Saturday, f/u pending Review of Systems Narrative: as per HPI PFSH All Active Problems (Updated 12/16/24 @ 13:42 by Sonya Dave NP) Medication care plan discussed with primary care provider (Acute) Impaired instrumental activities of daily living (Acute) Odynophagia (Acute) Acute on chronic kidney failure (Acute) Community acquired bacterial pneumonia (Acute) Severe sepsis (Acute) Acute exacerbation of chronic obstructive pulmonary disease (COPD) (Acute) Acute kidney injury (Acute) Aspiration pneumonia (Acute) Alcohol intoxication (Acute) Palliative care patient (Acute) ACP (advance care planning) (Acute) Seasonal allergies (Acute) Atherosclerosis of abdominal aorta (Acute) Iliac artery stenosis, bilateral (Acute) Coronary artery calcification seen on CAT scan (Acute) Hiatal hernia (Chronic) Delirium due to multiple etiologies (Acute) Anemia, chronic disease (Acute) CKD (chronic kidney disease) stage 3, GFR 30-59 ml/min (Chronic) Falls frequently (Acute) Blunt head trauma (Acute) Blunt trauma of multiple sites of trunk (Acute) Fall (Acute) Impaired gait and mobility (Acute ~03/2023) Hyperlipidemia (Chronic) Tobacco abuse disorder (Chronic) Cut down 1/2PPD Personal history of noncompliance with medical treatment and regimen (Chronic) Alcoholic liver disease (Chronic) Anemia (Chronic ~02/2022) S/P GI bleed CHF (congestive heart failure) (Chronic ~02/2023) ECHO 02/2022 LVEF 45-50% Depression (Chronic) Plans on getting connected to social work Tineo's esophagus (Chronic ~04/2019) ETOH; Upper endoscopy 03/2019 (see path report--no tineo's?, but 08/15/2019 surg note says +tineo's) Weakness (Acute) LE weakness; Home PT Urinary retention (Chronic) Dr. Ramos COPD (chronic obstructive pulmonary disease) (Chronic) Atrial fibrillation (Chronic) Paroxysmal per hospital records; not anticoagulated secondary to recurrent GI bleeds from chronic EtOH use Medical History Lack of housing Adult failure to thrive Iron deficiency anemia due to chronic blood loss Hypomagnesemia Alcohol use disorder Acute upper gastrointestinal bleeding (~02/2022) Gastric ulcer Troponin level elevated Gout Colchicine prevention Sleeping difficulty Melatonin RX Insomnia Radicular pain of right lower extremity GI bleed Tineo's esophagus Right knee pain UTI (urinary tract infection) Hematemesis Depression Renal insufficiency Smoking hx Surgical History H/O esophagogastroduodenoscopy (~05/2019) Repeat on 10/26/20 [facility] [place] severe reflux esophagitis w/ non-bleeding esophageal ulcer. 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) What type of physical activity do you participate in: none Do you feel safe at home: Yes Do you feel safe in your relationship?: Yes Additional Social history: Lives alone in apartment on [address] Exam Narrative Exam Narrative: General: older adult male, chronically ill appearing, sitting in recliner bedside throughout visit HEENT: hearing grossly WNL; normocephalic, atraumatic, edentulous, MMM, eating lunch appropriately during visit Resp: even and unlabored at rest, does get SOB w/prolonged speech, recovers immediately w/rest; cough, wet, non-productive Psych: cooperative, thought process impoverished, labile attitude; insight/judgment limited Results Last Vital Signs Temp 97.9 F 12/16/24 10:49 Pulse 87 12/16/24 10:49 Resp 16 12/16/24 10:49 BP 132/96 H 12/16/24 10:49 Pulse Ox 99 12/16/24 10:49 Labs 12/16/24 09:25 12/16/24 09:25 Labs: Laboratory Results - last 24 hr 12/15/24 12/16/24 12:50 09:25 WBC 8.02 10.29 RBC 4.80 4.75 Hgb 10.5 L 10.7 L Hct 34.4 L 34.2 L MCV 72 L 72 L MCH 21.9 L 22.5 L MCHC 30.5 L 31.3 L RDW 20.6 H 21.2 H Plt Count 122 L 133 MPV 9.5 9.4 Immature Gran % 1.0 Neutrophils % 85.2 Lymphocytes % 7.5 Monocytes % 6.0 Eosinophils % 0.1 Basophils % 0.2 Nucleated RBC % 0.0 Absolute Neutrophils 8.77 H Absolute Lymphocytes 0.77 L Absolute Monocytes 0.62 Absolute Eosinophils 0.01 Absolute Basophils 0.02 RBC Morphology See Below Hypochromasia 1+ Microcytosis 1+ Sodium 142 Potassium 4.3 Chloride 106 Carbon Dioxide 27.6 Anion Gap 8.4 BUN 48 H Creatinine 1.6 H Est GFR (CKD-EPI 2020) 43.83 Glucose 164 H Calcium 8.4 L Time Spent Time Spent with Patient Time Spent(min): 65
[2024-12-16 16:10] VITALS: BP 124/86; PULSE 105; RESP 16; TEMP 36; O2SAT 98
[2024-12-16] MEDS: Melatonin 3 MG TAB PO (20:10)
[2024-12-16] MEDS: Amoxicillin 875/Clav. 125 TAB PO (20:10)
[2024-12-16] MEDS: Atorvastatin 40 MG TAB PO (20:10)
[2024-12-16] MEDS: Mirtazapine 15 MG TAB 7.5 MG PO (20:11)
[2024-12-17 05:08] VITALS: BP 144/88; PULSE 108; RESP 20; TEMP 36.8; O2SAT 97
[2024-12-17 07:30] LABS: Anion Gap 6.6 mmol/L (3-11); BUN 52 mg/dL (7-18); CO2 28.4 mmol/L (21.0-32.0); CREATININE 1.7 mg/dL (0.70-1.30); Calcium 8.2 mg/dL (8.5-10.1); Chloride 108 mmol/L (98-107); Estimated GFR 40.75 (mL/min/1.73m2); Glucose 140 mg/dL (74-106); Potassium 3.9 mmol/L (3.5-5.1); Sodium 143 mmol/L (136-145)
[2024-12-17] MEDS: predniSONE 20 MG TAB 40 MG PO (08:10)
[2024-12-17] MEDS: Naltrexone 50 MG TAB PO (08:10)
[2024-12-17] MEDS: Doxycycline Hyclate 100 MG CAP PO (08:10)
[2024-12-17] MEDS: Metoprolol CR 50 MG TABCR PO (08:10)
[2024-12-17] MEDS: Amoxicillin 875/Clav. 125 TAB PO (08:10)
[2024-12-17] MEDS: Tamsulosin 0.4 MG CAPCR 0.8 MG PO (08:11)
[2024-12-17] MEDS: Vitamins B Comp w/C TAB 1 TAB PO (08:11)
[2024-12-17 08:47] VITALS: BP 129/82; PULSE 97; RESP 16; TEMP 36; O2SAT 98
--- NOTE | 2024-12-17 10:23 | PDOC.CMDIS ---
Date of service: 12/17/24 Time of Service: 10:23 LACE Index Scoring Tool Questions: Length of Stay (in days): 3 Was the patient admitted via the E.D.?: Yes E.D. Visits: 3 Answers: Total Score: 9 Risk of Readmission: Low Risk Care Management Discharge Plan Reason for Hospitalization: Pneumonia Discharge Plan: Khoi will discharge home with resumption of community supports and his discharge plan of care as directed. New [facility] PT/OT is ordered. RCT is coordinated with lift assist. CM notified PCP office, the [facility] advised new RX's will be sent to [facility], as requested by Palliative. His meds will be delivered (confirmed by CM.) His community service officer at [facility] is notified and plans to continue to support his community needs, if he is willing. Patient/Family Education Needs: Review discharge instructions, recommendations, options and plan to follow up after discharge. Review ask me three. Services Needed at Discharge: Home Delivered Meals (Restart, CM notified [facility]), Home Health Care Services (New [facility] PT[facility]OT. [facility] is notified), [facility] ( SNF for STR was coordinated in full by CM. This discharge plan changed at the last minute according to the patients wishes and CM supported his request to discharge home. Best we can do. ) and Transportation (RCT private vehicle with lift assist) SDOH Health Related Social Needs: No Data to Display
--- NOTE | 2024-12-17 11:29 | W.PM.DS.N ---
Date of service: 12/17/24 Time of Service: 11:29 DS: Diagnosis Discharge Diagnosis (1) Community acquired bacterial pneumonia: Status: Acute (2) Severe sepsis: Status: Acute (3) Acute exacerbation of chronic obstructive pulmonary disease (COPD): Status: Acute (4) Atrial fibrillation: Status: Chronic (5) Alcohol use disorder: (6) Tobacco abuse disorder: Status: Chronic (7) Tineo's esophagus: Status: Chronic (8) Odynophagia: Status: Acute (9) Alcoholic liver disease: Status: Chronic (10) Urinary retention: Status: Chronic (11) Anemia, chronic disease: Status: Acute (12) Impaired gait and mobility: Status: Acute (13) Acute on chronic kidney failure: Status: Acute (14) Alcohol withdrawal: Status: Resolved (15) ACP (advance care planning): Status: Acute (16) DVT prophylaxis: Status: Resolved Discharge Plan Disposition Patient Disposition: Retirement Facility(SNF) Condition: Stable Discharge Details Reason For Visit: Pneumonia, Sepsis, SAUL, Alcohol Withdrawal Admit Date/Time: 12/14/24 13:22 Admit Provider: Prashant Rosales Attending Provider: Prashant Rosales Primary Care Provider: Desirae Panda Hospital Course Hospital Course: 79 yo M with history of alcohol use disorder, smoking, COPD, CKD3b, history of HFpEF, and atrial fibrillation who has been without his medications for months presented with cough and shortness of breath. He initially stated he had the symptoms for 3 days, but when reminded about his 12/09 visit for shortness of breath, he states the symptoms started before that visit. He did have runny nose and congestion but this has improved. He has been hoarse and has some odynophagia. He can swallow water but alcohol walker too much so he hasn't had any alcohol or eaten real food in 3 days. The pain with swallowing started after the cough, it is not chronic. His cough is productive of thick sputum, no blood. His has not had chest pain or palpitations. His shortness of breath has improved since getting fluids and medication here. He was seen 12/09 in the ED with SOB and diagnosed with pneumonia. His blood alcohol was 385.5 at that visit. He was initially mildly hypoxic but this resolved. After sobering up he was discharged with a prescription for amox/clav but he never filled it. Per pharmacy records he last filled his regular prescriptions in June 2024. He typically drinks a fifth of liquor every 3 days, last alcohol 3 days ago. Denies h/o seizures. Had had 800+ days sober in past in alf. Assessment and plan (1) Community acquired bacterial pneumonia: Status: Acute Assessment and plan: He has had cough and SOB. CXR 5 days ago concerning for infiltrate. ED physician and myself both felt current film looks worse, though read as clear. Clinically c/w pneumonia. Likely complicating viral illness as has pharyngitis Started on cefepime and vanco given sepsis picture as well as doxy. Will continue cefepime and doxy, MRSA swab. Continue vanco only if positive. (2) Severe sepsis: Status: Acute Assessment and plan: Met criteria with initial elevated RR, HR, lactate, and respiratory infection. Antibiotics as above. Improving symptoms and vital signs with a 1500 isotonic fluids and resuming metoprolol. He is drinking, I don't think he needs additional fluids (3) Acute exacerbation of chronic obstructive pulmonary disease (COPD): Status: Acute Assessment and plan: Treated with dexamethasone and nebs in ED. Will continue but transition to prednisone. Antibiotics for pneumonia as above. (4) Atrial fibrillation: Status: Chronic Assessment and plan: Rate better controlled back on oral metoprolol, will continue this. He has not been anticoagulated due to fall risk and acitve alcoholism. This should be reconsidered if he is placed with nursing care. (5) Tobacco abuse disorder: Status: Chronic Assessment and plan: NRT patch prn (6) CHF (congestive heart failure): Status: Chronic Assessment and plan: He does not appear to be in active CHF based on exam and CXR. Troponins flat. Continue to monitor. (7) Tineo's esophagus: Status: Chronic Assessment and plan: resume PPI. He does have a history of UGI bleed. (8) Alcoholic liver disease: Status: Chronic Assessment and plan: Abnormal transaminases mild, but new mild bilirubin elavation. INR reassuring that his is not severe alcoholic hepatitis. Follow. (9) Urinary retention: Status: Chronic Assessment and plan: Retaining in ED, straight cathed. Continue to monitor. Resume alpha kassie (10) Anemia, chronic disease: Status: Acute Assessment and plan: stable compared to chronic. Follow. (11) Impaired gait and mobility: Status: Acute Assessment and plan: h/o frequent falls. PT referral. He may need placement. (12) Acute on chronic kidney failure: Status: Acute Assessment and plan: Appears to have some degree of acute on chronic renal insufficiency. Presented dry, also urinary retention. Follow (13) Alcohol withdrawal: Status: Resolved Assessment and plan: Mild symptoms. May be contributing to high BP and HR. Alcohol no longer detectable c/w no drinking x 3 days per his history. Even so, we will monitor for withdrawal with CIWA, prn lorazepam, no phenobarbital loading. (14) DVT prophylaxis: Status: Resolved Assessment and plan: enoxaparin, renal dosing (15) ACP (advance care planning): Status: Acute Assessment and plan: He is FULL CODE. He has seen palliative but unsafe living situation makes home visits difficult. He is open to placement. Pt was admitted to the Hospitalist service on 12/14/24. Plan is outlined above. As of 12/17/24 the pt has been afebrile for over 48 hours without an oxygen requirement and a normal wbc. The plan is to dc pt to SNF but the pt refused and wants to go home. Will send prescriptions to his pharmacy for prednisone/naltrexone/augmentin/doxy. Pt was also given prescriptions for flomax and nicotine patches Home Meds and New Rx's Prescriptions: New doxycycline hyclate 100 mg Capsule 100 mg PO BID 5 Days Qty: 10 0RF naltrexone 50 mg Tablet 50 mg PO DAILY 10 Days Qty: 10 0RF prednisone 20 mg Tablet 20 mg PO DAILY 7 Days Qty: 7 0RF tamsulosin 0.4 mg Capsule 0.8 mg PO DAILY 30 Days Qty: 60 0RF nicotine 21 mg/24 hr Patch 24 Hour 21 mg transdermal DAILY PRN PRN7 Days Qty: 7 0RF amoxicillin-pot clavulanate 875-125 mg Tablet 1 tab PO BID 5 Days Qty: 10 0RF Continued docusate sodium [Colace] 100 mg capsule 100 mg PO BID Qty: 30 0RF Patient Comments: ran out, not taking amlodipine 5 mg tablet 5 mg PO DAILY Qty: 30 0RF Patient Comments: ran out, not taking atorvastatin 40 mg tablet 40 mg PO HS Qty: 30 0RF Patient Comments: ran out, not taking metoprolol succinate 50 mg tablet extended release 24 hr 50 mg PO DAILY Qty: 30 0RF Patient Comments: ran out, not taking mirtazapine 7.5 mg tablet 7.5 mg PO QHS Qty: 30 0RF Patient Comments: ran out, not taking multivitamin with iron Tablet 1 tab PO DAILY Qty: 30 0RF Patient Comments: ran out, not taking thiamine HCl (vitamin B1) 100 mg tablet 100 mg PO DAILY Qty: 30 0RF Patient Comments: ran out, not taking levalbuterol tartrate 45 mcg/actuation HFA aerosol inhaler 1 - 2 puff INHALATION Q4H Qty: 15 3RF Patient Comments: ran out, not taking Rx Instructions: RESCUE INHALER loratadine 10 mg tablet 10 mg PO DAILY PRN (Reason: allergy symptoms) Qty: 90 3RF Patient Comments: ran out, not taking Rx Instructions: allergies & itchy eyes ferrous sulfate 325 mg (65 mg iron) Tablet 325 mg PO 0600,1800 Qty: 60 0RF Patient Comments: ran out, not taking melatonin 3 mg Tablet 3 mg PO HS Qty: 30 0RF Patient Comments: ran out, not taking polyethylene glycol 3350 17 gram Powder In Packet 17 g PO DAILY PRN PRN (Reason: Constipation) Qty: 30 0RF Patient Comments: ran out, not taking Lawanda-Elva 0.8 mg tablet 1 tab PO DAILY Patient Comments: TAKE ONE TABLET BY MOUTH EVERY DAY ran out, not taking magnesium gluconate [Mag-G] 27 mg magnesium (500 mg) tablet 27 mg PO DAILY Patient Comments: ran out, not taking pantoprazole 40 mg tablet,delayed release (DR/EC) 40 mg PO BID Qty: 90 3RF Patient Comments: ran out, not taking Rx Instructions: GI bleed Discontinued tamsulosin 0.4 mg capsule 0.8 mg PO DAILY Qty: 60 0RF Patient Comments: ran out, not taking amoxicillin-pot clavulanate 875-125 mg tablet 1 tab PO BID 7 Days Qty: 14 0RF acetaminophen 325 mg capsule 650 mg PO Q6H PRN PRNQty: 90 0RF Patient Comments: ran out, not taking nicotine 21 mg/24 hr Patch 24 Hour 21 mg transdermal DAILY PRN PRNQty: 30 0RF Patient Comments: ran out, not taking Discharge Instructions Additional Instructions: Would strongly recommend a discussion with your Primary care Provider in regards whether or not you should take anticoagulation. During my calculation of his HASBLED score, I have him at a 2 (age,etoh use) but would be at a 3 if he is started on a blood thinner or asa which would put him at 3 which is considered high risk Referrals: Desirae Panda, SERVICE SUPERVISOR [Primary Care Provider] - (please follow up with PCP in 5-7 days) Activity:: Activity as Tolerated Equipment/Supplies:: No Equipment Needed Diet:: As Tolerated Discharge Orders Discharge Orders: Discharge Order (Routine); Ordered 12/17/24 Ordered By: Sam Boyd DS: Summary Time Spent with Patient providing and/or coordinating discharge services: Greater than 30 minutes Status at Discharge Functional status at discharge: uses cane/walker Overall status at discharge: patient is progressing back to baseline Mental Status: mental status grossly normal Speech and Movement: speech and movement normal Mood: congruent mood Affect: normal affect Quality:SDOH Health Related Social Needs: No Data to Display Exam Narrative Exam Narrative: GEN: Alert and oriented, walking with PT, no acute distress LUNGS: Diffusely diminished, normal effort, better air movement today and no rales/rhonchi. CV: Irregularly irregular, rate 80s, with no murmurs, gallops, or rubs. ABD: active bowel sounds, soft, nontender, EXT: no cyanosis, clubbing, or edema PSYCH: normal mood and affect, no hallucinations evident Psych Mental Status: mental status grossly normal Speech and Movement: speech and movement normal Mood: congruent mood Affect: normal affect DS: Data Vitals/I&O Vitals and I&O: Vital Signs Temperature 36 C L 12/17/24 08:47 Temperature Source Temporal Artery Scan 12/17/24 08:47 Pulse 97 H 12/17/24 08:47 Pulse Rhythm Irregular 12/14/24 14:40 Pulse 93 H 12/14/24 13:00 Respiratory Rate 16 12/17/24 08:47 Respiratory Effort Normal 12/14/24 14:40 Respiratory Depth Normal 12/14/24 14:40 Respiratory Pattern Normal 12/14/24 14:40 Blood Pressure 129/82 12/17/24 08:47 Blood Pressure Mean 90 12/14/24 14:19 Blood Pressure Position Supine 12/14/24 11:01 Pulse Oximetry 98 12/17/24 08:47 Oxygen Delivery Method Room Air 12/17/24 08:47 Oxygen Flow Rate 0 12/17/24 08:47 Pain Level 0 12/16/24 16:10 Comment Notifying RN 12/17/24 08:47 Intake & Output 12/16/24 12/16/24 12/17/24 11:59 23:59 11:59 Intake Total 1290 / 1480 190 / 1480 Output Total 800 / 1425 625 / 1425 350 / 350 Balance 490 / 55 -435 / 55 -350 / -350 Weight 74.5 kg Intake: IV 1110 / 1120 10 / 1120 Oral 180 / 360 180 / 360 Output: Urine 800 / 1425 625 / 1425 350 / 350 Other: Urine Color Yellow Yellow Yellow Urine Appearance Clear Clear Clear Urine Odor Normal Normal Normal Stool Size Moderate Copious Stool Characteristics Liquid Formed Brown Black Data Completed and Pending Labs on day of discharge: Labs from last 24 hours 12/17/24 06:47 Sodium 143 Potassium 3.9 Chloride 108 H Carbon Dioxide 28.4 Anion Gap 6.6 BUN 52 H Creatinine 1.7 H Est GFR (CKD-EPI 2020) 40.75 Glucose 140 H Calcium 8.2 L Preliminary micro results at discharge 12/14/24 11:15 Blood Culture - Preliminary Blood NO GROWTH 48 HOURS 12/14/24 10:50 Blood Culture - Preliminary Blood NO GROWTH 48 HOURS PFSH All Active Problems (Updated 12/16/24 @ 13:42 by Sonya Dave NP) Medication care plan discussed with primary care provider (Acute) Impaired instrumental activities of daily living (Acute) Odynophagia (Acute) Acute on chronic kidney failure (Acute) Community acquired bacterial pneumonia (Acute) Severe sepsis (Acute) Acute exacerbation of chronic obstructive pulmonary disease (COPD) (Acute) Acute kidney injury (Acute) Aspiration pneumonia (Acute) Alcohol intoxication (Acute) Palliative care patient (Acute) ACP (advance care planning) (Acute) Seasonal allergies (Acute) Atherosclerosis of abdominal aorta (Acute) Iliac artery stenosis, bilateral (Acute) Coronary artery calcification seen on CAT scan (Acute) Hiatal hernia (Chronic) Delirium due to multiple etiologies (Acute) Anemia, chronic disease (Acute) CKD (chronic kidney disease) stage 3, GFR 30-59 ml/min (Chronic) Falls frequently (Acute) Blunt head trauma (Acute) Blunt trauma of multiple sites of trunk (Acute) Fall (Acute) Impaired gait and mobility (Acute ~03/2023) Hyperlipidemia (Chronic) Tobacco abuse disorder (Chronic) Cut down 1/2PPD Personal history of noncompliance with medical treatment and regimen (Chronic) Alcoholic liver disease (Chronic) Anemia (Chronic ~02/2022) S/P GI bleed CHF (congestive heart failure) (Chronic ~02/2023) ECHO 02/2022 LVEF 45-50% Depression (Chronic) Plans on getting connected to social work Tineo's esophagus (Chronic ~04/2019) ETOH; Upper endoscopy 03/2019 (see path report--no tineo's?, but 08/15/2019 surg note says +tineo's) Weakness (Acute) LE weakness; Home PT Urinary retention (Chronic) Dr. Ramos COPD (chronic obstructive pulmonary disease) (Chronic) Atrial fibrillation (Chronic) Paroxysmal per hospital records; not anticoagulated secondary to recurrent GI bleeds from chronic EtOH use Medical History Lack of housing Adult failure to thrive Iron deficiency anemia due to chronic blood loss Hypomagnesemia Alcohol use disorder Acute upper gastrointestinal bleeding (~02/2022) Gastric ulcer Troponin level elevated Gout Colchicine prevention Sleeping difficulty Melatonin RX Insomnia Radicular pain of right lower extremity GI bleed Tineo's esophagus Right knee pain UTI (urinary tract infection) Hematemesis Depression Renal insufficiency Smoking hx Surgical History H/O esophagogastroduodenoscopy (~05/2019) Repeat on 10/26/20 [facility] severe reflux esophagitis w/ non-bleeding esophageal ulcer. 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
--- NOTE | 2024-12-17 13:54 | PDOC.HHF2F_ITS ---
Home Health Referral Home Health Orders Clinical synopsis of why skilled professionals are needed: weakness and pneuomonia Medical diagnosis necessitation home health referral: weakness and pneumonia Registered Nurse: Check all that apply Instruct on new or changed medication(s)/assess compliance: Ordered Assess for exacerbation of medical condition, instruct patient/caregivers on signs and symptoms to report for early detection: Ordered Other: CBC w diff, CMP and Mag Saturday03/12/2023 - results to PCP Dehydration E86.0 Anemia D64.9 COPD J44.9 Weakness R53.1 Physical Therapist: Check all that apply Increase strength & endurance for safe mobility at home: Ordered To design/establish home maintenance program: Ordered Fall reduction therapy program for patient with history of frequent falls: Ordered Home safety evaluation and teaching/gait training including stair management (if applicable): Ordered Occupational Therapist: Evaluate and treat for patient unable to perform ADL/IADL/self-care: Ordered Plant Safety Engineer: Assist with community resources: Ordered Assist with middle or intermediate school principal care planning: Ordered Home Bound Status Requires the aid of supportive device (check all that apply): Walker Describe why leaving home would require a considerable and taxing effort: Requires frequent rest periods Encounter Date and Reason: I certify that a FTF encounter for this patient was performed on December 17, 2024 and that such encounter was related to the primary reason the patient requires home health services. The encounter was conducted in the following manner: * By me as the certifying physician, [employer]ER [employer]UMP[employer]STING, PA or * By an inpatient physician, FAC[employer] B[employer]ER JUMP[employer]STING or PA during an inpatient stay who communicated findings to me, Certification And Authentication I certify that I composed the above information based on my clinical judgment relating to this patient's medical condition and, if applicable, clinical findings communicated to me by the NPP or inpatient physician who performed the FTF encounter. Name of Provider that will be monitoring home health services: Desirae Panda
== END 2024-12-17 11:57 | disposition home or self-care (01) | DRG 871 ==
LOC: ER 13:53 → MS 14:24
PROVIDERS: Family Medicine; Admitting Provider Family Medicine; Emergency Provider Emergency Medicine; PCP Nurse Practitioner Adult Health; Responsible Provider Family Medicine; Visit Provider Family Medicine
DX: A41.9 Sepsis, unspecified organism (principal); J15.9 Unspecified bacterial pneumonia; J44.0 Chronic obstructive pulmonary disease with (acute) lower respiratory infection; J44.1 Chronic obstructive pulmonary disease with (acute) exacerbation; F10.239 Alcohol dependence with withdrawal, unspecified; N17.9 Acute kidney failure, unspecified; I50.30 Unspecified diastolic (congestive) heart failure; R65.20 Severe sepsis without septic shock; F17.210 Nicotine dependence, cigarettes, uncomplicated; K70.9 Alcoholic liver disease, unspecified; R33.9 Retention of urine, unspecified; R13.10 Dysphagia, unspecified; R29.6 Repeated falls; I70.0 Atherosclerosis of aorta; I70.8 Atherosclerosis of other arteries; I25.10 Atherosclerotic heart disease of native coronary artery without angina pectoris; K44.9 Diaphragmatic hernia without obstruction or gangrene; E78.5 Hyperlipidemia, unspecified; F32.A Depression, unspecified; I48.0 Paroxysmal atrial fibrillation; Z87.11 Personal history of peptic ulcer disease; Z91.199 Patient's noncompliance with other medical treatment and regimen due to unspecified reason; K22.70 Barrett's esophagus without dysplasia; D63.8 Anemia in other chronic diseases classified elsewhere; N18.32 Chronic kidney disease, stage 3b
CPT/HCPCS: 00123; 36415; 51701; 51798; 80048; 80053; 80076; 82550; 82805; 85027; 87040; 87637; 87641; 93005; 94640; 96365; 96366; 96367; 97110; 97162; 97530; 99285; J1650; 71045; 80320; 80329; 83605; 83735; 84484; 85025; 85610; 93010; 94760; 99223; 99232; 99233; 99239; J0692; J3372; J7512; J7620; J8540

== ENCOUNTER 2025-03-18 10:05 | Emergency (ER) | payer MEDICARE, OTHER, SELFPAY ==
[2025-03-18] VITALS (86 sets, daily range): BP systolic 95–148; BP diastolic 38–88; PULSE 63–147; RESP 13–35; TEMP 37–38; O2SAT 84–100
--- NOTE | 2025-03-18 10:00 | RT.EKG_ITS ---
APPROVED REPORT Exam: Resting ECG Reason for Exam: weak,diaphoretic Patient Location: E HR:95 bpm ECG Measurements Heart Rate 95 AXIS SC [id number] P [id number] QRSd 77 QRS 81 QT 356 T 68 QTc 448 Conclusion Atrial fibrillation...V-rate 76-109, irreg A-activity Low voltage, extremity and precordial leads...extremity<0.5mV, precordial<1.0mV Probable anterolateral infarct, old...Q>35mS, abnrm ST-T, V2-V6,I,aVL I have reviewed and interpreted ECG and agree with software generated interpretation.
--- NOTE | 2025-03-18 10:26 | W.ED.GENAD ---
Discharge Plan Disposition Patient Disposition: Transfer-Acute Inpatient Care Specific Acute Inpt Facility: [facility] Condition: Critical Discharge Details Clinical Impression: Acute renal failure, Severe sepsis, Hyperuricemia, Non-ST elevation PA (NSTEMI), Decubitus ulcer, Acidosis, lactic, Pancreatitis Primary Care Provider: Desirae Panda ED Provider: Santi Dangelo Home Meds and New Rx's Prescriptions: No Action docusate sodium [Colace] 100 mg capsule 100 mg PO BID Qty: 30 0RF Patient Comments: ran out, not taking levalbuterol tartrate 45 mcg/actuation HFA aerosol inhaler 1 - 2 puff INHALATION Q4H Qty: 15 3RF Patient Comments: ran out, not taking Rx Instructions: RESCUE INHALER loratadine 10 mg tablet 10 mg PO DAILY PRN (Reason: allergy symptoms) Qty: 90 3RF Patient Comments: ran out, not taking Rx Instructions: allergies & itchy eyes amlodipine 5 mg tablet 5 mg PO DAILY Qty: 30 0RF Patient Comments: ran out, not taking atorvastatin 40 mg tablet 40 mg PO HS Qty: 30 0RF Patient Comments: ran out, not taking thiamine HCl (vitamin B1) 100 mg tablet 100 mg PO DAILY Qty: 30 0RF Patient Comments: ran out, not taking pantoprazole 40 mg tablet,delayed release (DR/EC) 40 mg PO BID Qty: 60 0RF Patient Comments: ran out, not taking Rx Instructions: GI bleed multivitamin with iron Tablet 1 tab PO DAILY Qty: 30 0RF Patient Comments: ran out, not taking mirtazapine 7.5 mg tablet 7.5 mg PO QHS Qty: 30 0RF Patient Comments: ran out, not taking metoprolol succinate 50 mg tablet extended release 24 hr 50 mg PO DAILY Qty: 30 0RF Patient Comments: ran out, not taking ferrous sulfate 325 mg (65 mg iron) Tablet 325 mg PO 0600,1800 Qty: 60 0RF Patient Comments: ran out, not taking melatonin 3 mg Tablet 3 mg PO HS Qty: 30 0RF Patient Comments: ran out, not taking polyethylene glycol 3350 17 gram Powder In Packet 17 g PO DAILY PRN PRN (Reason: Constipation) Qty: 30 0RF Patient Comments: ran out, not taking Lawanda-Elva 0.8 mg tablet 1 tab PO DAILY Patient Comments: TAKE ONE TABLET BY MOUTH EVERY DAY ran out, not taking magnesium gluconate [Mag-G] 27 mg magnesium (500 mg) tablet 27 mg PO DAILY Patient Comments: ran out, not taking HPI General Date/Time Provider Initiated Documentation: 03/18/25 10:24. HPI Narrative: 79-year-old male with a past medical history of chronic kidney disease, chronic alcoholism drinking a cup of whiskey a day, previous upper GI bleed, congestive heart failure, Tineo's esophagus, COPD, atrial fibrillation not on any anticoagulants, who lives alone at home who presents today via EMS for weakness. History is extremely limited from the patient, he does not bring up any significant complaints except that he has not been feeling well. Time duration is unclear. EMS reports that the house is covered in feces and vomit. Patient had feces and vomit in the chair that he was sitting in. Patient had a cup that was full of urine, but EMS reports that it looked like brown spittle. Patient denies any other complaints of cough or chest pain or abdominal pain, however he does not add anything else to history otherwise. EMS reports tachycardia and fever. No other complaints or modifying factors at this time. Related Data Home Medications ?Medication ?Instructions ?Recorded ?Confirmed ferrous sulfate 325 mg (65 mg 325 mg PO 0600,1800 #60 tabs 04/14/24 12/14/24 iron) tablet melatonin 3 mg tablet 3 mg PO HS #30 tabs 04/14/24 12/14/24 polyethylene glycol 3350 17 gram 17 g PO DAILY PRN PRN Constipation 04/14/24 12/14/24 oral powder packet #30 ea docusate sodium 100 mg capsule 100 mg PO BID #30 caps 05/14/24 12/14/24 (Colace) magnesium gluconate 27 mg 27 mg PO DAILY 06/17/24 12/14/24 magnesium (500 mg) tablet (Mag-G) vitamin B complex-vitamin C-folic 1 tab PO DAILY 06/17/24 12/14/24 acid 0.8 mg tablet (Lawanda-Elva) levalbuterol tartrate 45 1 - 2 puff inhalation Q4H #15 grams 07/16/24 12/14/24 mcg/actuation aerosol inhaler loratadine 10 mg tablet 10 mg PO DAILY PRN allergy 08/05/24 12/14/24 symptoms #90 tabs amlodipine 5 mg tablet 5 mg PO DAILY #30 tabs 12/17/24 atorvastatin 40 mg tablet 40 mg PO HS #30 tabs 12/17/24 metoprolol succinate 50 mg 50 mg PO DAILY #30 tabs 12/17/24 tablet,extended release 24 hr mirtazapine 7.5 mg tablet 7.5 mg PO QHS #30 tabs 12/17/24 multivitamin with iron 1 tab PO DAILY #30 tabs 12/17/24 pantoprazole 40 mg tablet,delayed 40 mg PO BID #60 tabs 12/17/24 release thiamine HCl (vitamin B1) 100 mg 100 mg PO DAILY #30 tabs 12/17/24 tablet Previous Rx's ?Medication ?Instructions ?Recorded ferrous sulfate 325 mg (65 mg 325 mg PO 0600,1800 #60 tabs 04/14/24 iron) tablet melatonin 3 mg tablet 3 mg PO HS #30 tabs 04/14/24 polyethylene glycol 3350 17 gram 17 g PO DAILY PRN PRN Constipation 04/14/24 oral powder packet #30 ea docusate sodium 100 mg capsule 100 mg PO BID #30 caps 05/14/24 (Colace) levalbuterol tartrate 45 1 - 2 puff inhalation Q4H #15 grams 07/16/24 mcg/actuation aerosol inhaler loratadine 10 mg tablet 10 mg PO DAILY PRN allergy 08/05/24 symptoms #90 tabs amlodipine 5 mg tablet 5 mg PO DAILY #30 tabs 12/17/24 atorvastatin 40 mg tablet 40 mg PO HS #30 tabs 12/17/24 metoprolol succinate 50 mg 50 mg PO DAILY #30 tabs 12/17/24 tablet,extended release 24 hr mirtazapine 7.5 mg tablet 7.5 mg PO QHS #30 tabs 12/17/24 multivitamin with iron 1 tab PO DAILY #30 tabs 12/17/24 pantoprazole 40 mg tablet,delayed 40 mg PO BID #60 tabs 12/17/24 release thiamine HCl (vitamin B1) 100 mg 100 mg PO DAILY #30 tabs 12/17/24 tablet Allergies Allergy/AdvReac Type Severity Reaction Status Date / Time bupropion AdvReac Severe seizures Verified 12/14/24 10:34 General Stated Complaint: Abd Prob JENNA: 3 Exam Narrative Exam Narrative: 1.Const: Well-nourished, Well-developed, appearing stated age 2.Eyes: PERRL, no conjunctival injection, and symmetrical lids. 3.ENT: Atraumatic external nose and ears. Notably dry MM. Neck: Symmetric, trachea midline, No thyromegaly. 4.CVS: +S1/S2, Peripheral pulses 2+ and equal in all extremities. Brisk capillary refill in all extremities. 5.RESP: Rhonchorous breath sounds with scattered wheezes and crackles. 6.GI: Soft, Nontender/Nondistended, No hepatosplenomegaly. No guarding or rebound. 7.MSK: Normocephalic/Atraumatic, Extremities w/o deformity or ttp No cyanosis or clubbing, Normal movement of all extremities 8.Skin: Warm, Dry. No rashes or lesions. Covered in feces 9.Neuro: inspector clip on sunglasses II-XII grossly intact. Sensation grossly intact, moves all extremities. 10.Psych: (AAO) x0. Patient answer some questions, but otherwise has nothing else to contribute. Course Vital Signs Vital signs: Vital Signs Pulse 145 H 03/18/25 10:06 Respiratory Rate 26 H 03/18/25 10:06 Blood Pressure 104/63 03/18/25 10:06 Pulse Oximetry 96 03/18/25 10:06 Temperature 37.4 C 03/18/25 10:14 Pulse 145 H 03/18/25 10:14 Respiratory Rate 26 H 03/18/25 10:14 Blood Pressure 104/63 03/18/25 10:14 Pulse Oximetry 96 03/18/25 10:14 Oxygen Delivery Method Room Air 03/18/25 10:06 Oxygen Flow Rate 0 03/18/25 10:06 Pain Level 0 03/18/25 10:14 Lab/Test Results Lab/Test Results: 03/18/25 10:11 Blood Blood Culture - Pending 03/18/25 10:11 Blood Blood Culture - Pending Medical Decision Making 79-year-old male with a past medical history of chronic kidney disease, chronic alcoholism drinking a cup of whiskey a day, previous upper GI bleed, congestive heart failure, Tineo's esophagus, COPD, atrial fibrillation not on any anticoagulants, who lives alone at home who presents today via EMS for weakness. History is extremely limited from the patient, he does not bring up any significant complaints except that he has not been feeling well. Time duration is unclear. EMS reports that the house is covered in feces and vomit. Patient had feces and vomit in the chair that he was sitting in. Patient had a cup that was full of urine, but EMS reports that it looked like brown spittle. Patient denies any other complaints of cough or chest pain or abdominal pain, however he does not add anything else to history otherwise. EMS reports tachycardia and fever. No other complaints or modifying factors at this time. Exam demonstrates rhonchorous breath sounds, scattered wheezes, mildly distended abdomen but no abdominal tenderness. Patient is covered in feces, dried vomit, and what appears to be dirt. Differential is broad but includes pneumonia, sepsis, encephalopathy, hypercarbia, UTI, COPD. Will evaluate for concerning etiologies, monitor closely and reassess. Additionally the patient is tachycardic in the 140s mildly tachypneic, he appears to be in A-fib, but I suspect there is a component of both medication noncompliance and also dehydration. Will gently rehydrate with 500 cc bolus to evaluate for rate change. If there is no improvement he may need medication management for his elevated heart rate. We will give a small dose of 5 mg of metoprolol IV. 3:28 PM Patient's laboratory workup returned showed no white count, hemoglobin was 9.6 though. Patient's lactate was notably elevated at 5.1 reflecting severe sepsis, however with his history of congestive heart failure I did not feel that 20 cc/kg bolus would be prudent as he has no hypotension or shock. His creatinine was 5.5 with a BUN in the 90s. Notable anion gap was present in the 30s, and metabolic acidosis was present with a pH of 7.23 and a bicarb of 8. pCO2 was 19. Additionally lipase is also elevated at 123. Procalcitonin is elevated at 0.52. Urinalysis shows no evidence of infection. There is urine casts 10-20 hyaline casts that are noted. Alcohol level negative, COVID flu and RSV are negative. Initial troponin is elevated at 206. CT imaging demonstrates no acute process in the chest abdomen or pelvis otherwise. No evidence of pneumonia. His mild decubitus ulcer may be the source of his initial fever and infection. I suspect this is complicated by the significant profound dehydration and acute kidney failure. Ammonia is also slightly elevated at 38, potentially adding to his current status. EKG shows no evidence of STEMI though. With the patient's renal failure, elevated troponin, metabolic acidosis, pancreatitis on labs, hyperuricemia, I do not feel that he would be an ideal candidate for [facility] admission. I did reach out and discussed the case with [facility] Dr. Sanders, he agrees with the need for transfer and accepts the patient for transfer. 4:35 PM Repeat troponin has returned at 266, patient's repeat EKG remained stable. I did contact [facility] cardiology and discussed the case with Dr. Parker. We had a long discussion regarding the risks and benefits of potential GI bleed especially with his history of GI bleeds, and the risks of anticoagulation. At this time as the patient's EKGs remain stable we will hold off on any heparinization unless his troponins notably climb rapidly. He has received his broad-spectrum antibiotics and continues to get continued gentle fluid hydration. Repeat electrolytes show an improvement of his potassium at 4.8 however BUN and creatinine remain problematic with a BUN of 91 and a creatinine of 5.2. He continues to urinate, but has only urinated a few 100 cc at this stage. Pending bed availability at [facility]. I have extensively reviewed the treatment plan with the patient. I have addressed all patient concerns at this time. I have also discussed the plan with the admitting physician and they agree with the current assessment and plan and have agreed to assume responsibility for the patient. All parties demonstrate verbal understanding and agreement with our assessment and plan at this time. The documentation in this chart was dictated using [employer] dictation software. Please excuse any dictation errors. FINDINGS: The lack of IV contrast does limit evaluation of the abdominal pelvic organs. CHEST: Tracheobronchial tree: Patent where visualized. No bronchiectasis. Pulmonary parenchyma: Centrilobular emphysematous changes are present. No architectural distortion. Mediastinum and Elaina: No dominant adenopathy or fluid collection. The esophagus is unremarkable. Thyroid gland: Unremarkable. Pleura: No effusion or pneumothorax. Heart: Enlarged heart. Coronary artery calcifications are present. No pericardial effusion. Aorta: Thoracic aorta non-dilated. Atherosclerotic calcification is present. Lymph nodes: Within normal limits. Bones:Within normal limits for the patient's age. Soft tissues: Bilateral gynecomastia. ABDOMEN: Liver: There is diffuse decreased attenuation of the liver consistent with fatty infiltration. No measurable mass. Gallbladder and Biliary Tract: No radiodense calculus or dilation. Pancreas: Normal density, no abnormal calcifications or inflammatory process. Spleen: Normal. Adrenals: No masses seen. Kidneys: Normal size, contour and axis. No radiodense stones or obstructive uropathy. No masses seen. Abdominal Aorta: Abdominal portion non-dilated. Bowel: There is diverticulosis seen in the colon, but no evidence of acute diverticulitis. No evidence of bowel obstruction or bowel wall thickening is seen. No evidence of pneumatosis is present. Appendix is unremarkable. Peritoneal Cavity: No ascites, collection or mesenteric inflammatory response. No free air. Lymph Nodes: Within normal limits. Bones: Within normal limits for the patient's age. Soft Tissues: Unremarkable. PELVIS: Bladder: The urinary bladder is decompressed and there is air within the bladder. This likely reflects the presence of the Cornejo catheter. Reproductive Organs: Unremarkable as visualized. Lymph Nodes: Within normal limits. Bones: Within normal limits for the patient's age. IMPRESSION: 1. No acute pulmonary process. 2. No acute abdominal or pelvic process. 3. The urinary bladder is decompressed and there is air within the bladder. This likely reflects the presence of the Cornejo catheter. Critical Care Time Critical Care Time Critical Care Time: Yes Total Critical Care Time: 70 Attestation: Upon my evaluation, this patient had a high probability of imminent or life-threatening deterioration, which required my direct attention, intervention, and personal management. I have personally provided 70 minutes of critical care time exclusive of time spent on separately billable procedures. Time includes review of laboratory data, radiology results, discussion with consultants, and monitoring for potential decompensation. Interventions were performed as documented. [facility] All Active Problems (Updated 03/18/25 @ 16:39 by Santi Dangelo DO) Pancreatitis (Chronic) Acidosis, lactic (Acute) Decubitus ulcer (Acute) Non-ST elevation PA (NSTEMI) (Acute) Hyperuricemia (Acute) Severe sepsis (Acute) Acute renal failure (Acute) Odynophagia (Acute) Acute on chronic kidney failure (Acute) Community acquired bacterial pneumonia (Acute) Aspiration pneumonia (Acute) Alcohol intoxication (Acute) ACP (advance care planning) (Acute) Seasonal allergies (Acute) Atherosclerosis of abdominal aorta (Acute) Iliac artery stenosis, bilateral (Acute) Coronary artery calcification seen on CAT scan (Acute) Hiatal hernia (Chronic) Delirium due to multiple etiologies (Acute) Anemia, chronic disease (Acute) CKD (chronic kidney disease) stage 3, GFR 30-59 ml/min (Chronic) Falls frequently (Acute) Blunt head trauma (Acute) Blunt trauma of multiple sites of trunk (Acute) Fall (Acute) Impaired gait and mobility (Acute ~03/2023) Hyperlipidemia (Chronic) Tobacco abuse disorder (Chronic) Cut down 1/2PPD Personal history of noncompliance with medical treatment and regimen (Chronic) Alcoholic liver disease (Chronic) Anemia (Chronic ~02/2022) S/P GI bleed CHF (congestive heart failure) (Chronic ~02/2023) ECHO 02/2022 LVEF 45-50% Depression (Chronic) Plans on getting connected to social work Tineo's esophagus (Chronic ~04/2019) ETOH; Upper endoscopy 03/2019 (see path report--no tineo's?, but 08/15/2019 surg note says +tineo's) Weakness (Acute) LE weakness; Home PT Urinary retention (Chronic) Dr. Ramos COPD (chronic obstructive pulmonary disease) (Chronic) Atrial fibrillation (Chronic) Paroxysmal per hospital records; not anticoagulated secondary to recurrent GI bleeds from chronic EtOH use Medical History Lack of housing Adult failure to thrive Iron deficiency anemia due to chronic blood loss Hypomagnesemia Alcohol use disorder Acute upper gastrointestinal bleeding (~02/2022) Gastric ulcer Troponin level elevated Gout Colchicine prevention Sleeping difficulty Melatonin RX Insomnia Radicular pain of right lower extremity GI bleed Tineo's esophagus Right knee pain UTI (urinary tract infection) Hematemesis Depression Renal insufficiency Smoking hx Surgical History H/O esophagogastroduodenoscopy (~05/2019) [place] 10[place] [facility] [place] w/ non-bleeding esophageal ulcer. Multiplle inflammatory appearing nodules at [facility] Social History Smoking/Tobacco Use Status: Current every day Tobacco Type: cigarettes Years smoked: 50 Smoking risk assessment performed?: Yes Alcohol Intake: current Alcohol Intake frequency: 3 or more drinks per day Alcohol type: hard liquor Drug use: Binges Substance use type: does not use Details: Pt appears intoxicated today but states nothing is wrong Housing: apartment Do you need help understanding health information?: Rarely current occupation: [place] [employer] - (served as [employer]) What type of physical activity do you participate in: none Do you feel safe at home: Yes Do you feel safe in your relationship?: Yes Additional Social history: Lives alone in apartment on [address]
[2025-03-18 10:47] LABS: BE (Venous) -20 mmol/L (-2-3); HCO3 (Venous) 8 mmol/L (23-28); O2 Sat (Venous) 89 %; TCO2 (Venous) 8 mmol/L (24-29); pH (Venous) 7.23 (7.31-7.41); pO2 (Venous) 67 mmHg
[2025-03-18 10:52] LABS: Abs Immature Grans 0.07 10^3/uL (0.0-0.06); Absolute Basophil Count 0.03 10^3/uL (0.0-0.2); Absolute Lymphocyte Count 0.26 10^3/uL (1.2-3.4); Absolute Monocyte Count 0.79 10^3/uL (0.1-0.8); Absolute Neutrophil Count 4.47 10^3/uL (1.2-6.7); Basophils % 0.5 %; HCT 31.2 % (40.0-50.0); HGB 9.6 g/dL (13.5-17.5); Immature Grans % 1.2 %; Lymphocytes % 4.6 %; MCH 28.4 pg (27.0-33.0); MCHC 30.8 % (32.0-36.0); MCV 92 fL (80-95); MPV 9.2 fL (8.0-11.0); Monocytes % 14.1 %; Neutrophils % 79.6 %; Nucleated RBC 0.4 % (0.0-0.3); Platelet Count 270 10^3/uL (130-400); RBC 3.38 10^6/uL (4.36-5.78); RDW 22.5 % (11.8-14.1); RDW-SD 75.2 fL; WBC 5.62 10^3/uL (4.4-10.8)
[2025-03-18 10:54] LABS: Lactate 5.1 mmol/L (<or=2.0); pCO2 (Venous) 19 mmHg (41-51)
[2025-03-18] MEDS: Albuterol/Ipratropium 3 ML UPD VIAL UPD (10:54)
[2025-03-18] MEDS: Normal Saline 500 ML IV ×2 (10:54→12:19)
[2025-03-18] MEDS: methylPREDNISolone SUCC 125 MG VIAL IVP (10:55)
[2025-03-18] MEDS: Metoprolol 5 MG/5 ML VIAL IVP (10:55)
[2025-03-18 11:00] LABS: Bilirubin Small (Negative); Blood Negative (Negative); Clarity Clear (Clear); Glucose Negative (Negative); Ketones Trace mg/dL (Negative); Leukocyte Esterase Negative (Negative); Nitrite Negative (Negative); Urobilinogen 0.2 mg/dL (Up to 0.2); pH 5.5 (5-8)
[2025-03-18] MEDS: PIPERACILLIN/TAZO 4.5 GM in Normal Saline 100 ML IVPB (11:08)
[2025-03-18] MEDS: DOXYCYCLINE 100 MG in Normal Saline 100 ML IVPB (11:11)
[2025-03-18 11:18] LABS: ALT 38 U/L (16-63); AST 66 U/L (15-37); Albumin 3.5 g/dL (3.4-5.0); Alkaline Phosphatase 97 U/L (46-116); Anion Gap 38.3 mmol/L (3-11); CO2 9.7 mmol/L (21.0-32.0); Calcium 7.9 mg/dL (8.5-10.1); Chloride 94 mmol/L (98-107); Estimated GFR 9.75 (mL/min/1.73m2); Glucose 101 mg/dL (74-106); Lipase 123 U/L (<78); Potassium 5.2 mmol/L (3.5-5.1); Sodium 142 mmol/L (136-145); Total Protein 6.9 g/dL (6.4-8.2)
[2025-03-18 11:23] LABS: BUN 94 mg/dL (7-18); CREATININE 5.6 mg/dL (0.70-1.30); ETHANOL BLOOD < 3.0 mg/dL (<10)
[2025-03-18 11:25] LABS: NT-proBNP 3915 pg/mL (<300); PTT Activated 28.3 sec (20.6-30.2)
[2025-03-18 11:27] LABS: Bacteria Few HPF (Negative); Crystals Negative HPF (Negative); Epithelial Cells Rare HPF (Negative); Mucus Negative (Negative); RBC Negative HPF (0-2)
[2025-03-18 11:28] LABS: C & S Indicated? C&S Done As Ordered; Casts 10-20 Hyaline LPF (Negative)
[2025-03-18 11:29] LABS: Ammonia 38 umol/L (11-32)
[2025-03-18 11:33] LABS: TSH (W/Ref FT4) 2.32 uIU/mL (0.36-3.74)
[2025-03-18 11:34] LABS: Anisocytosis 2+
[2025-03-18 11:40] LABS: Troponin I 206 ng/L (<or=76)
[2025-03-18 12:00] LABS: Procalcitonin 0.52 ng/mL
--- NOTE | 2025-03-18 12:05 | DI.CT_ITS ---
Exam(s) CT CHEST/ABD/PEL WO EXAM: CT CHEST/ABD/PEL WO CLINICAL HISTORY: severe sepsis, unknown source, abd pain/vomiting TECHNIQUE: Imaging Protocol: Axial computed tomography images with coronal and sagittal reformatted images were created and reviewed. Computer aided detection (CAD) was utilized. COMPARISON: CT CT CHEST/ABD/PEL WO from 06/17/2024 CR,XR XR PORTABLE CHEST AP from 12/09/2024 FINDINGS: The lack of IV contrast does limit evaluation of the abdominal pelvic organs. CHEST: Tracheobronchial tree: Patent where visualized. No bronchiectasis. Pulmonary parenchyma: Centrilobular emphysematous changes are present. No architectural distortion. Mediastinum and Elaina: No dominant adenopathy or fluid collection. The esophagus is unremarkable. Thyroid gland: Unremarkable. Pleura: No effusion or pneumothorax. Heart: Enlarged heart. Coronary artery calcifications are present. No pericardial effusion. Aorta: Thoracic aorta non-dilated. Atherosclerotic calcification is present. Lymph nodes: Within normal limits. Bones:Within normal limits for the patient's age. Soft tissues: Bilateral gynecomastia. ABDOMEN: Liver: There is diffuse decreased attenuation of the liver consistent with fatty infiltration. No measurable mass. Gallbladder and Biliary Tract: No radiodense calculus or dilation. Pancreas: Normal density, no abnormal calcifications or inflammatory process. Spleen: Normal. Adrenals: No masses seen. Kidneys: Normal size, contour and axis. No radiodense stones or obstructive uropathy. No masses seen. Abdominal Aorta: Abdominal portion non-dilated. Bowel: There is diverticulosis seen in the colon, but no evidence of acute diverticulitis. No evidence of bowel obstruction or bowel wall thickening is seen. No evidence of pneumatosis is present. Appendix is unremarkable. Peritoneal Cavity: No ascites, collection or mesenteric inflammatory response. No free air. Lymph Nodes: Within normal limits. Bones: Within normal limits for the patient's age. Soft Tissues: Unremarkable. PELVIS: Bladder: The urinary bladder is decompressed and there is air within the bladder. This likely reflects the presence of the Cornejo catheter. Reproductive Organs: Unremarkable as visualized. Lymph Nodes: Within normal limits. Bones: Within normal limits for the patient's age. IMPRESSION: 1. No acute pulmonary process. 2. No acute abdominal or pelvic process. 3. The urinary bladder is decompressed and there is air within the bladder. This likely reflects the presence of the Cornejo catheter. RADIATION DOSE DELIVERED: 447mGy.cm Total DLP 447mGy.cm Total DLP DATA REPOSITORY: All CT scans at this facility are submitted to the National Radiology Data Registry (NRDR) Dose Index Registry (DIR) with the [employer] (ACR). RADIATION OPTIMIZATION: All CT scans at this facility use at least one of these dose optimization techniques: automated exposure control; mA and/or kV adjustment per patient size (includes targeted exams where dose is matched to clinical indication); or iterative reconstruction.
--- NOTE | 2025-03-18 12:06 | TELEP.MEDR_ITS ---
Date of service: 03/18/25 Time of Service: 12:06 [facility] Med Rec Allergies Allergies: bupropion Adverse Reaction (Severe, Verified 12/14/24 10:34) seizures Interview Person Interviewed: * Patient Quality Quality of Interview/Accuracy of Medication List: Poor (Patient doesn't want to talk about his medications) Sources Sources used to compile medication list: SureScripts Changes made to Home Medication List: ADDITIONS: * none DELETIONS: * none Additional Notes Additional Notes: * Telepharmacy is unable to assess this patient's medication. This patient states that he lives alone with no contact. He states that he doesn't know what medication he's supposed to be taking. Surescripts showed a few medications that were dispensed 12/19/24, but patient is not confirming any medication. Recommended Changes Recommended Changes(reason for recommendation): * Please follow up with patient when he's more cooperative Attestation: The home medication list is now updated to the best of my knowledge and is ready to be reconciled by the provider. Please contact the [facility] Medication Reconciliation Pharmacist at for any questions.
--- NOTE | 2025-03-18 12:06 | NUR.NOTE ---
Nursing Note:telepharm unable to complete med rec because he doesn't know what he is taking and he has no family members managing his care.
[2025-03-18 13:05] LABS: Troponin I 204 ng/L (<or=76)
[2025-03-18] MEDS: VANCOMYCIN/WATER (PEG) 1.5 GM/300 ML BAG IV (13:37)
[2025-03-18 14:10] LABS: Troponin I 266 ng/L (<or=76)
[2025-03-18 14:42] LABS: COVID-19 PCR Negative (Negative); Influenza A PCR Negative (Negative); Influenza B PCR Negative (Negative); RSV PCR Negative (Negative); Source Nasopharynx
[2025-03-18 15:15] LABS: Lactate 2.3 mmol/L (<or=2.0)
--- NOTE | 2025-03-18 15:15 | RT.EKG_ITS ---
APPROVED REPORT Exam: Resting ECG Reason for Exam: CHEST PAIN Patient Location: E HR:109 bpm ECG Measurements Heart Rate 109 AXIS VA [id number] P [id number] QRSd 77 QRS 80 QT 351 T 47 QTc 472 Conclusion Atrial fibrillation...? atrial activity Low voltage, extremity leads...all extremity leads <0.5mV Anteroseptal infarct, old...Q >40mS, V1-V2 Physician: no stemi
[2025-03-18 15:41] LABS: Anion Gap 31.9 mmol/L (3-11); CO2 12.1 mmol/L (21.0-32.0); Calcium 6.9 mg/dL (8.5-10.1); Chloride 96 mmol/L (98-107); Estimated GFR 10.65 (mL/min/1.73m2); Glucose 149 mg/dL (74-106); Potassium 4.8 mmol/L (3.5-5.1); Sodium 140 mmol/L (136-145)
[2025-03-18 15:47] LABS: CREATININE 5.2 mg/dL (0.70-1.30)
--- NOTE | 2025-03-18 17:48 | W.EDPROG ---
Date of service: 03/18/25 Time of Service: 17:49 Medical Decision Making Date patient signed out to me pending transfer, bed is now available and patient has remained hemodynamically stable during his time here since I have taken over. No new complaints. Discharge Plan Disposition Patient Disposition: Transfer-Acute Inpatient Care Specific Acute Inpt Facility: [facility] Condition: Critical Discharge Details Clinical Impression: Acute renal failure, Severe sepsis, Hyperuricemia, Non-ST elevation MT (NSTEMI), Decubitus ulcer, Acidosis, lactic, Pancreatitis Primary Care Provider: Desirae Panda ED Provider: Marquez Henning Scobey Meds and New Rx's Prescriptions: No Action docusate sodium [Colace] 100 mg capsule 100 mg PO BID Qty: 30 0RF Patient Comments: ran out, not taking levalbuterol tartrate 45 mcg/actuation HFA aerosol inhaler 1 - 2 puff INHALATION Q4H Qty: 15 3RF Patient Comments: ran out, not taking Rx Instructions: RESCUE INHALER loratadine 10 mg tablet 10 mg PO DAILY PRN (Reason: allergy symptoms) Qty: 90 3RF Patient Comments: ran out, not taking Rx Instructions: allergies & itchy eyes amlodipine 5 mg tablet 5 mg PO DAILY Qty: 30 0RF Patient Comments: ran out, not taking atorvastatin 40 mg tablet 40 mg PO HS Qty: 30 0RF Patient Comments: ran out, not taking thiamine HCl (vitamin B1) 100 mg tablet 100 mg PO DAILY Qty: 30 0RF Patient Comments: ran out, not taking pantoprazole 40 mg tablet,delayed release (DR/EC) 40 mg PO BID Qty: 60 0RF Patient Comments: ran out, not taking Rx Instructions: GI bleed multivitamin with iron Tablet 1 tab PO DAILY Qty: 30 0RF Patient Comments: ran out, not taking mirtazapine 7.5 mg tablet 7.5 mg PO QHS Qty: 30 0RF Patient Comments: ran out, not taking metoprolol succinate 50 mg tablet extended release 24 hr 50 mg PO DAILY Qty: 30 0RF Patient Comments: ran out, not taking ferrous sulfate 325 mg (65 mg iron) Tablet 325 mg PO 0600,1800 Qty: 60 0RF Patient Comments: ran out, not taking melatonin 3 mg Tablet 3 mg PO HS Qty: 30 0RF Patient Comments: ran out, not taking polyethylene glycol 3350 17 gram Powder In Packet 17 g PO DAILY PRN PRN (Reason: Constipation) Qty: 30 0RF Patient Comments: ran out, not taking Lawanda-Elva 0.8 mg tablet 1 tab PO DAILY Patient Comments: TAKE ONE TABLET BY MOUTH EVERY DAY ran out, not taking magnesium gluconate [Mag-G] 27 mg magnesium (500 mg) tablet 27 mg PO DAILY Patient Comments: ran out, not taking
[2025-03-18 22:43] LABS: BUN 91 mg/dL (7-18)
== END 2025-03-18 17:48 | disposition short-term general hospital (02) ==
PROVIDERS: Student in an Organized Health Care Education/Training Program; Emergency Provider Emergency Medicine; PCP Nurse Practitioner Adult Health
DX: N17.9 Acute kidney failure, unspecified (principal); A41.9 Sepsis, unspecified organism; E79.0 Hyperuricemia without signs of inflammatory arthritis and tophaceous disease; N18.30 Chronic kidney disease, stage 3 unspecified; E78.5 Hyperlipidemia, unspecified; F10.20 Alcohol dependence, uncomplicated; J44.9 Chronic obstructive pulmonary disease, unspecified; I48.91 Unspecified atrial fibrillation; I25.2 Old myocardial infarction; F17.210 Nicotine dependence, cigarettes, uncomplicated
CPT/HCPCS: 00123; 36415; 71250; 80048; 80053; 82805; 83690; 84145; 86850; 86900; 86901; 87040; 87637; 93005; 94640; 96361; 96365; 96366; 96367; 96375; 99285; 74176; 80320; 81003; 81015; 82140; 83605; 83880; 84443; 84484; 85025; 85610; 85730; 87086; 93010; J2543; J2919; J3372; J7620

== ENCOUNTER 2025-05-10 18:29 | Outpatient (REF) | payer SELFPAY ==
[2025-05-10 19:03] LABS: Abs Immature Grans 0.07 10^3/uL (0.0-0.06); HCT 33.8 % (40.0-50.0); HGB 10.0 g/dL (13.5-17.5); Immature Grans % 1.1 %; MCH 25.1 pg (27.0-33.0); MCHC 29.6 % (32.0-36.0); MCV 85 fL (80-95); MPV 9.4 fL (8.0-11.0); Platelet Count 335 10^3/uL (130-400); RBC 3.99 10^6/uL (4.36-5.78); RDW 18.2 % (11.8-14.1); RDW-SD 56.0 fL; WBC 6.42 10^3/uL (4.4-10.8)
[2025-05-10 19:21] LABS: Iron 45 ug/dL (65-175); Total Iron Binding Capacity 497 ug/dL (250-450); Transferrin Sat 9 % (20-55)
[2025-05-10 19:32] LABS: Hemoglobin A1C 5.3 % (<5.7)
[2025-05-10 19:51] LABS: ALT 28 U/L (16-63); AST 24 U/L (15-37); Albumin 3.3 g/dL (3.4-5.0); Alkaline Phosphatase 120 U/L (46-116); Anion Gap 10.7 mmol/L (3-11); BUN 42 mg/dL (7-18); Bilirubin, Total 0.4 mg/dL (0.2-1.0); CO2 27.3 mmol/L (21.0-32.0); Calcium 9.1 mg/dL (8.5-10.1); Chloride 100 mmol/L (98-107); Estimated GFR 28.35 (mL/min/1.73m2); Ferritin 53 ng/mL (26-388); Folate > 20.0 ng/mL (8.6-20.0); Glucose 95 mg/dL (74-106); Magnesium 2.1 mg/dL (1.8-2.4); Potassium 5.2 mmol/L (3.5-5.1); Sodium 138 mmol/L (136-145); TSH (W/Ref FT4) 2.17 uIU/mL (0.36-3.74); Total Protein 6.8 g/dL (6.4-8.2); Vitamin B12 470 pg/mL (193-986); Vitamin D 25 Total 54 ng/mL (30-100)
[2025-05-10 20:18] LABS: NT-proBNP 3231 pg/mL (<300)
== END 2025-05-10 18:30 | disposition home or self-care (01) ==
LOC: LBN 18:29
PROVIDERS: PCP Nurse Practitioner Adult Health; Visit Provider Nurse Practitioner Gerontology
DX: D51.9 Vitamin B12 deficiency anemia, unspecified (principal); E55.9 Vitamin D deficiency, unspecified; I50.22 Chronic systolic (congestive) heart failure; R53.82 Chronic fatigue, unspecified; E61.1 Iron deficiency; D50.9 Iron deficiency anemia, unspecified; D52.9 Folate deficiency anemia, unspecified; R73.03 Prediabetes
CPT/HCPCS: 80053; 82306; 82607; 82728; 82746; 83036; 83540; 83550; 83735; 83880; 84443; 85025

== ENCOUNTER 2025-05-12 14:50 | Observation (INO) | payer OTHER, SELFPAY ==
[2025-05-12] VITALS (25 sets, daily range): BP systolic 98–153; BP diastolic 55–119; PULSE 84–100; RESP 12–27; TEMP 36.6–37.1; O2SAT 92–97
--- NOTE | 2025-05-12 14:45 | RT.EKG_ITS ---
APPROVED REPORT Exam: Resting ECG Reason for Exam: AMS Patient Location: E HR:98 bpm ECG Measurements Heart Rate 98 AXIS AZ [id number] P [id number] QRSd 95 QRS 79 QT 368 T 75 QTc 470 Conclusion Atrial fibrillation...? atrial activity Anteroseptal infarct, age indeterminate...Q >35mS, T neg, V1-V2
--- NOTE | 2025-05-12 15:33 | ED.GENADUL_ITS ---
Discharge Plan Disposition Patient Disposition: Admit to [facility] Discharge Details Clinical Impression: Acute on chronic kidney failure, Altered mental status Admit Date/Time: 05/12/25 20:58 Admit Provider: Stefano Jhaveri Attending Provider: Stefano Jhaveri Primary Care Provider: Desirae Panda ED Provider: Kassi Parr Discharge Data Discharge Date/Time-TO BE ENTERED AT DEPARTURE: 05/12/25 21:59 HPI General Date/Time Provider Initiated Documentation: 05/12/25 15:28 . HPI Narrative: Khoi is a 79-year-old male who presents to the emergency department via EMS from the [facility] for evaluation of altered mental status and acute confusion. He reports he is not sure why he came in today by ambulance Patient reports he had some kind of brain abnormality detected when he was at [facility], discharged back to the [facility] on Saturday. He reports he has had anxiety, denies hallucinations, says he has just been sleep talking and fatigued due to lack of sleep. He denies fever/chills, headache, congestion, sore throat, chest pain, shortness of breath, new cough (says he has had a cough productive of white mucus x 1 month, no change), abdominal pain, nausea/v omiting, diarrhea, dysuria, rashes/sores. He does admit to lower abdominal discomfort that he attributes to exercises to help get back on his feet. Obtained history from JUICE Barreto. He has been talking to people who aren't there and reaching for things that are not there. Only taking sips of fluid, decreased appetite. Arrived from [facility] , A+O x 2-3 at baseline, acting differently from yesterday. PMHG significant for encephalopathy, NSTEMI, history of GI bleed, CHF, Tineo's esophagus, COPD, afib (not on anticoagulation), ETOH use disorder, subdural hematoma, elevated ammonia. Just finished course of Bactrim for UTI yesterday. Related Data Home Medications ?Medication ?Instructions ?Recorded ?Confirmed melatonin 3 mg tablet 3 mg PO HS #30 tabs 04/14/24 05/12/25 polyethylene glycol 3350 17 gram 17 g PO DAILY PRN PRN Constipation 04/14/24 05/12/25 oral powder packet #30 ea magnesium gluconate 27 mg 27 mg PO DAILY 06/17/2404/30 magnesium (500 mg) tablet (Mag-G) vitamin B complex-vitamin C-folic 1 tab PO DAILY 06/1705/12/25 acid 0.8 mg tablet (Lawanda-Elva) atorvastatin 40 mg tablet 40 mg PO HS #30 tabs 5 05/12/25 metoprolol succinate 50 mg 50 mg PO DAILY #30 tabs 05/12/25 tablet,extended release 24 hr multivitamin with iron 1 tab PO DAILY #30 tabs 03/2 05/12/25 pantoprazole 40 mg tablet,delayed 40 mg PO BID #60 tab s 12/17/24 05/12/25 release budesonide-formoterol HFA 80 2 inh inhalation BID 04/3005/12/25 mcg-4.5 mcg/actuation aerosol inhaler (Breyna) ferrous sulfate 325 mg (65 mg 325 mg PO .COMPLEX 05/1205/12/25 iron) tablet (Feosol) finasteride 5 mg tablet 5 mg PO DAILY 05/12/2505/12 furosemide 20 mg tablet (Lasix) 20 mg PO DAILY 5 05/12/25 sertraline 50 mg tablet 50 mg PO DAILY 05/12/2504/30 tamsulosin 0.4 mg capsule 0.8 mg PO DAILY 05/12/25 trazodone 50 mg tablet 50 mg PO QHS 05/12/25 Previous Rx's ?Medication ?Instructions ?Recorded melatonin 3 mg tablet 3 mg PO HS #30 tabs 04/14/24 polyethylene glycol 3350 17 gram 17 g PO DAILY PRN PRN Constipation 04/14/24 oral powder packet #30 ea atorvastatin 40 mg tablet 40 mg PO HS #30 tabs 5 metoprolol succinate 50 mg 50 mg PO DAILY #30 tabs tablet,extended release 24 hr multivitamin with iron 1 tab PO DAILY #30 tabs 03/ pantoprazole 40 mg tablet,delayed 40 mg PO BID #60 tab s 12/17/24 release Allergies Allergy/AdvReac Type Severity Reaction Status Date / Time bupropion AdvReac Severe seizures Verified 05/12/25 15:41 General Stated Complaint: AMS/LOC JENNA: 3 Exam Const General: cooperative, healthy appearing, no acute distress, anxious and well hydrated Nutritional Appearance: average body habitus [facility] Head: normal to inspection General nose exam: external nose normal Face and sinus: normal facial exam Mouth: oral mucosae normal and moist mucous membranes Resp Effort & Inspection: normal respiratory effort and able to speak in complete sentences Auscultation: clear to auscultation bilaterally Cardio Rate: regular rate Rhythm: regular rhythm GI Inspection: normal to inspection, no abdominal wall ecchymosis and non-distended Palpation: soft, not rigid and tender (mild lower abdominal discomfort with palpation) Skin General skin exam: no rashes or lesions noted Neuro General: patient alert, patient oriented x3, tone normal and moves all extremities Cranial Nerves: facial strength normal Speech: speech normal Motor: muscle tone normal throughout and strength 5/5 throughout Sensory Exam: no sensory deficits noted Course Vital Signs Vital signs: Vital Signs Temperature 37.1 C 05/12/25 14:54 Pulse 89 05/12/25 14:54 Respiratory Rate 18 05/12/25 14:54 Blood Pressure 98/62 L 05/12/25 14:54 Pulse Oximetry 97 05/12/25 14:54 Temperature 37.1 C 05/12/25 15:01 Temperature Source Oral 05/12/25 15:01 Pulse 89 05/12/25 15:01 Respiratory Rate 18 05/12/25 15:01 Respiratory Depth Normal 05/12/25 15:01 Respiratory Pattern Normal 05/12/25 15:01 Blood Pressure 98/62 L 05/12/25 15:01 Blood Pressure Position Supine 05/12/25 15:01 Pulse Oximetry 94 05/12/25 15:16 Oxygen Delivery Method Nasal Cannula 05/12/25 15:16 Oxygen Flow Rate 2 05/12/25 15:16 Pain Level 0 05/12/25 15:01 Medical Decision Making Medical Records Medical records narrative: Initial Assessment: 79-year-old male with altered mental status and acute confusion. Comes in with known history of subdural hematoma and recent treatment for UTI Differential Diagnosis includes but is not limited to: Worsening subdural hematoma, metabolic encephalopathy, kidney dysfunction, liver dysfunction, dehydration, electrolyte imbalance, thyroid dysfunction, occult infection such as pneumonia or UTI, diverticulitis/colitis. PT does not meet SIRS criteria. No red flags concerning for CVA. I did review patient's recent [facility] hospitalization from 03/18 to 05/06/2025; patient was discharged on 7-day course of UTI (presented with urinary retention/dysuria), as well as recommendation for repeat head CT in mid April. He was noted to have anxiety that was interfering with ability to work with PT. During his prolonged hospital stay Khoi experienced cardiac arrest, was diagnosed with a subdural hematoma versus hygroma, and treated for toxic metabolic encephalopathy with SAUL, hypomagnesemia, hypocalcemia, lactic acidosis, and possible sepsis without source identified. I independently interpreted the following tests: CMP consistent with SAUL, creatinine 2.8 with BUN 47 (compared to 1.93 and 39 respectively on 05/06/2025). CBC shows anemia unchanged from baseline; magnesium, ammonia, and TSH all unremarkable. UA shows 20-50 white blood cells, negative nitrites. CT head and neck performed, no acute findings. Chest x-ray, CT abdomen/pelvis all unremarkable. Clinical Impression: - SAUL - Altered mental status/acute confusion - Urinary tract infection (recovering) Plan to admit to hospital for management of SAUL and altered mental status. Discussed case with Dr. Jhaveri, hospitalist. He is agreeable with plan of care. Patient is agreeable with plan for admission. Patient consented to the use of [facility] Imaging Data Radiologic Study: Radiologist's impression: PROCEDURE INFORMATION: Exam: CT Abdomen And Pelvis Without Contrast Exam date and time: 05/12/2025 7:04 PM Age: 79 years old Clinical indication: Other: Lower abd pain on palpation TECHNIQUE: Imaging protocol: Computed tomography of the abdomen and pelvis without contrast. COMPARISON: CT CHEST/ABD/PEL W 04/10/2024 10:50 PM FINDINGS: Lungs: No basilar mass or consolidation. Coronary calcifications are evident and heart size is normal with pericardial fluid seen anteriorly. No pleural effusions are detected. Liver: A few small hepatic cysts are incidentally noted and require no further follow-up with no other significant hepatic lesions detected. Gallbladder and biliary ducts: Unremarkable with no calcified stone or ductal dilatation detected. Pancreas: No pancreatic mass or ductal dilation. Spleen: No splenomegaly or splenic mass. Adrenal glands: No adrenal masses detected. Kidneys and ureters: No renal mass or hydronephrosis. Stomach and bowel: Segments of large and small bowel are normal in caliber throughout with no mucosal thickening, obstruction or perforation. Colonic diverticula are most numerous in the regions of the descending and sigmoid segments with no evidence of associated diverticulitis. Appendix: Normal appendix is identified without evidence of inflammation. Intraperitoneal space: No pneumoperitoneum or free intraperitoneal fluid detected. Vasculature: No abdominal aortic aneurysm. Lymph nodes: No lymphadenopathy detected. Urinary bladder: Unremarkable as visualized. Reproductive: Unremarkable as visualized. Bones/joints: No acute fracture. Soft tissues: Unremarkable. IMPRESSION: Colonic diverticulosis with no evidence of diverticulitis or other focal inflammatory process. Radiologic Study #2: Radiologist's impression: Exam(s) CT HEAD CERVICAL SPINE WO EXAM: CT HEAD CERVICAL SPINE WO CLINICAL HISTORY: eval known subdural hematoma. TECHNIQUE: Imaging Protocol: Axial computed tomography images with coronal and sagittal reformatted images were created and reviewed COMPARISON: CT CT HEAD CERVICAL SPINE WO from 04/10/2024 FINDINGS: Head CT Ventricles and Extra axial spaces: Normal in size and morphology for the patient's age. Hemorrhage: None. Cerebral parenchyma: No evidence of mass or acute infarct. Moderate atrophy. Small bilateral basal ganglia lacunar infarcts. Midline shift: None. Brainstem/Cerebellum: Normal. Calvarium: Normal. Visualized Paranasal sinuses/Mastoids: Clear. Soft tissues: Unremarkable. Cervical Spine CT BONES: There is no evidence of acute fracture. 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 Small right-sided hemivertebra at C3 causes significant scoliosis. Degenerative disc changes and facet degenerative changes are seen . SOFT TISSUES: No paraspinal hematoma. The airway appears intact. No pneumothorax is seen at the lung apices. IMPRESSION: Head CT: No acute abnormality. C-spine CT: Congenital deformities and degenerative changes. No acute abnormality. Radiologic Study #3: Radiologist's impression: Exam(s) XR CHEST 1V IN DI DEPT EXAM: XR CHEST 1V IN DI DEPT CLINICAL HISTORY: ?AMS TECHNIQUE: 2D digital imaging was performed. COMPARISON: CT CT CHEST/ABD/PEL WO from 03/18/2025 FINDINGS: LUNGS: Clear. No pleural abnormality seen. HEART: Normal size. AORTA: Normal diameter. BONES: Unremarkable for age. Soft tissues: Unremarkable. IMPRESSION: No acute findings. PFSH All Active Problems (Updated 05/12/25 @ 22:53 by Kassi Mirza) Altered mental status (Acute) CAD (coronary artery disease) (Chronic) Complete heart block (Acute) DX at [facility] Junctional escape beats (Acute) DX at [facility] Pacemaker (Acute) Placed 04/20/2025 at [facility] by Deidra Pereira MD Odynophagia (Acute) Acute on chronic kidney failure (Acute) Community acquired bacterial pneumonia (Acute) Aspiration pneumonia (Acute) Alcohol intoxication (Acute) ACP (advance care planning) (Acute) Seasonal allergies (Acute) Atherosclerosis of abdominal aorta (Acute) Iliac artery stenosis, bilateral (Acute) Coronary artery calcification seen on CAT scan (Acute) Hiatal hernia (Chronic) Delirium due to multiple etiologies (Acute) Anemia, chronic disease (Acute) CKD (chronic kidney disease) stage 3, GFR 30-59 ml/min (Chronic) Falls frequently (Acute) Blunt head trauma (Acute) Blunt trauma of multiple sites of trunk (Acute) Fall (Acute) Impaired gait and mobility (Acute ~03/2023) Hyperlipidemia (Chronic) Tobacco abuse disorder (Chronic) Cut down 1/2PPD Personal history of noncompliance with medical treatment and regimen (Chronic) Alcoholic liver disease (Chronic) Anemia (Chronic ~02/2022) S/P GI bleed CHF (congestive heart failure) (Chronic ~02/2023) ECHO 02/2022 LVEF 45-50% Depression (Chronic) Plans on getting connected to social work Tineo's esophagus (Chronic ~04/2019) ETOH; Upper endoscopy 03/2019 (see path report--no tineo's?, but 08/15/2019 surg note says +tineo's) Weakness (Acute) LE weakness; Home PT Urinary retention (Chronic) Dr. Ramos COPD (chronic obstructive pulmonary disease) (Chronic) Atrial fibrillation (Chronic) Paroxysmal per hospital records; not anticoagulated secondary to recurrent GI bleeds from chronic EtOH use Medical History Lack of housing Adult failure to thrive Iron deficiency anemia due to chronic blood loss Hypomagnesemia Alcohol use disorder Acute upper gastrointestinal bleeding (~02/2022) Gastric ulcer Troponin level elevated Gout Colchicine prevention Sleeping difficulty Melatonin RX Insomnia Radicular pain of right lower extremity GI bleed Tineo's esophagus Right knee pain UTI (urinary tract infection) Hematemesis Depression Renal insufficiency Smoking hx Surgical History H/O esophagogastroduodenoscopy (~05/2019) Repeat on 10/26/20 [facility] severe reflux esophagitis w/ non-bleeding esophageal ulcer. 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
--- NOTE | 2025-05-12 15:54 | DI.RAD_ITS ---
Exam(s) XR CHEST 1V IN DI DEPT EXAM: XR CHEST 1V IN DI DEPT CLINICAL HISTORY: ?AMS TECHNIQUE: 2D digital imaging was performed. COMPARISON: CT CT CHEST/ABD/PEL WO from 03/18/2025 FINDINGS: LUNGS: Clear. No pleural abnormality seen. HEART: Normal size. AORTA: Normal diameter. BONES: Unremarkable for age. Soft tissues: Unremarkable. IMPRESSION: No acute findings. DATA REPOSITORY: RADIATION DOSE DELIVERED:
--- NOTE | 2025-05-12 15:57 | DI.CT_ITS ---
Exam(s) CT HEAD CERVICAL SPINE WO EXAM: CT HEAD CERVICAL SPINE WO CLINICAL HISTORY: eval known subdural hematoma. TECHNIQUE: Imaging Protocol: Axial computed tomography images with coronal and sagittal reformatted images were created and reviewed COMPARISON: CT CT HEAD CERVICAL SPINE WO from 04/10/2024 FINDINGS: Head CT Ventricles and Extra axial spaces: Normal in size and morphology for the patient's age. Hemorrhage: None. Cerebral parenchyma: No evidence of mass or acute infarct. Moderate atrophy. Small bilateral basal ganglia lacunar infarcts. Midline shift: None. Brainstem/Cerebellum: Normal. Calvarium: Normal. Visualized Paranasal sinuses/Mastoids: Clear. Soft tissues: Unremarkable. Cervical Spine CT BONES: There is no evidence of acute fracture. 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 Small right-sided hemivertebra at C3 causes significant scoliosis. Degenerative disc changes and facet degenerative changes are seen . SOFT TISSUES: No paraspinal hematoma. The airway appears intact. No pneumothorax is seen at the lung apices. IMPRESSION: Head CT: No acute abnormality. C-spine CT: Congenital deformities and degenerative changes. No acute abnormality. RADIATION DOSE DELIVERED: Total DLP DATA REPOSITORY: All CT scans at this facility are submitted to the National Radiology Data Registry (NRDR) Dose Index Registry (DIR) with the [employer] (ACR). RADIATION OPTIMIZATION: All CT scans at this facility use at least one of these dose optimization techniques: automated exposure control; mA and/or kV adjustment per patient size (includes targeted exams where dose is matched to clinical indication); or iterative reconstruction.
[2025-05-12 17:23] LABS: Abs Immature Grans 0.05 10^3/uL (0.0-0.06); HCT 33.9 % (40.0-50.0); HGB 10.2 g/dL (13.5-17.5); Immature Grans % 0.7 %; MCH 24.9 pg (27.0-33.0); MCHC 30.1 % (32.0-36.0); MCV 83 fL (80-95); MPV 9.7 fL (8.0-11.0); Platelet Count 332 10^3/uL (130-400); RBC 4.09 10^6/uL (4.36-5.78); RDW 18.1 % (11.8-14.1); RDW-SD 54.5 fL; WBC 7.05 10^3/uL (4.4-10.8)
[2025-05-12 17:44] LABS: ALT 25 U/L (16-63); AST 36 U/L (15-37); Albumin 3.6 g/dL (3.4-5.0); Alkaline Phosphatase 122 U/L (46-116); Anion Gap 12.0 mmol/L (3-11); BUN 47 mg/dL (7-18); Bilirubin, Total 0.3 mg/dL (0.2-1.0); CO2 25.0 mmol/L (21.0-32.0); Calcium 9.4 mg/dL (8.5-10.1); Chloride 100 mmol/L (98-107); Estimated GFR 22.39 (mL/min/1.73m2); Glucose 110 mg/dL (74-106); Magnesium 2.2 mg/dL (1.8-2.4); Potassium 4.9 mmol/L (3.5-5.1); Sodium 137 mmol/L (136-145); TSH (W/Ref FT4) 2.77 uIU/mL (0.36-3.74); Total Protein 7.6 g/dL (6.4-8.2)
--- NOTE | 2025-05-12 18:15 | DI.CT_ITS ---
Exam(s) CT ABDOMEN PELVIS WO EXAM: CT ABDOMEN PELVIS WO CLINICAL HISTORY: lower abd pain on palpation. TECHNIQUE: Imaging Protocol: Axial computed tomography images with coronal and sagittal reformatted images were created and reviewed. Oral: / no COMPARISON: CT CT CHEST/ABD/PEL WO from 03/17/[address] CHEST/ABD/PEL W from 04/10/[address] CHEST/ABD/PEL WO from 03/18/2025 FINDINGS: Lung Bases: Small pericardial effusion. Liver: Normal density. No suspicious mass. Gallbladder and biliary tract: No radiodense calculus or biliary dilation. Pancreas: Normal density. No abnormal calcifications or inflammatory process. Spleen: Normal. Kidneys: Normal size, contour and axis. No radiodense stones. No obstructive uropathy. No suspicious masses seen. Adrenal glands: No masses seen. Lymph nodes: Within normal limits. Vasculature: Abdominal aorta non-dilated. Aorta and branch vessels are heavily calcified. Soft tissues: Gynecomastia. Bladder: Over distended. No wall thickening. No visible mass. There is a small amount of high-density material layering posteriorly which could represent tiny stones. Bowel: No obstruction or bowel wall thickening. Diverticulosis. No evidence of diverticulitis. The appendix is normal. Moderate quantity of stool. Peritoneal cavity: No ascites. No focal collection. No mesenteric inflammatory response. Reproductive organs: The prostate appears small and contains calcifications, unchanged. Bones: Degenerative changes and scoliosis. IMPRESSION: Small amount high-density material layering in the posterior aspect of the bladder could indicate tiny stones, debris or hemorrhage. Correlation with urinalysis recommended. The kidneys appear normal. The preliminary [facility] report was reviewed. RADIATION DOSE DELIVERED: 609.59mGy.cm Total DLP DATA REPOSITORY: All CT scans at this facility are submitted to the National Radiology Data Registry (NRDR) Dose Index Registry (DIR) with the [employer] (ACR). RADIATION OPTIMIZATION: All CT scans at this facility use at least one of these dose optimization techniques: automated exposure control; mA and/or kV adjustment per patient size (includes targeted exams where dose is matched to clinical indication); or iterative reconstruction.
[2025-05-12 18:23] LABS: Ammonia < 10 umol/L (11-32)
--- NOTE | 2025-05-12 20:13 | DI.[facility]AD_ITS ---
PROCEDURE INFORMATION: Exam: CT Abdomen And Pelvis Without Contrast Exam date and time: 05/12/2025 7:04 PM Age: 79 years old Clinical indication: Other: Lower abd pain on palpation TECHNIQUE: Imaging protocol: Computed tomography of the abdomen and pelvis without contrast. COMPARISON: CT CHEST/ABD/PEL W 04/10/2024 10:50 PM FINDINGS: Lungs: No basilar mass or consolidation. Coronary calcifications are evident and heart size is normal with pericardial fluid seen anteriorly. No pleural effusions are detected. Liver: A few small hepatic cysts are incidentally noted and require no further follow-up with no other significant hepatic lesions detected. Gallbladder and biliary ducts: Unremarkable with no calcified stone or ductal dilatation detected. Pancreas: No pancreatic mass or ductal dilation. Spleen: No splenomegaly or splenic mass. Adrenal glands: No adrenal masses detected. Kidneys and ureters: No renal mass or hydronephrosis. Stomach and bowel: Segments of large and small bowel are normal in caliber throughout with no mucosal thickening, obstruction or perforation. Colonic diverticula are most numerous in the regions of the descending and sigmoid segments with no evidence of associated diverticulitis. Appendix: Normal appendix is identified without evidence of inflammation. Intraperitoneal space: No pneumoperitoneum or free intraperitoneal fluid detected. Vasculature: No abdominal aortic aneurysm. Lymph nodes: No lymphadenopathy detected. Urinary bladder: Unremarkable as visualized. Reproductive: Unremarkable as visualized. Bones/joints: No acute fracture. Soft tissues: Unremarkable. IMPRESSION: Colonic diverticulosis with no evidence of diverticulitis or other focal inflammatory process. Dictated and Authenticated by: Antonio Rodríguez MD. Orderin Jerome Solitario MD
[2025-05-12 20:30] LABS: Glucose Negative (Negative)
[2025-05-12 20:40] LABS: C & S Indicated? Yes; RBC 20-50 HPF (0-2); WBC 20-50 HPF (0-5)
--- NOTE | 2025-05-12 20:58 | W.PM.HP.N ---
Date of service: 05/12/25 Time of Service: 20:58 Assessment and Plan Assessment and plan (1) Acute on chronic kidney failure: Status: Acute Assessment and plan: - Creatinine in the emergency department 2.8, most recently 2.3 on 05/10/2025 - Does have a history of CKD - Hold home Lasix - Status post 500 mL bolus in the emergency department - Follow-up a.m. BMP (2) Pacemaker: Status: Acute Assessment and plan: - Recently placed at [facility] (3) COPD (chronic obstructive pulmonary disease): Status: Chronic Assessment and plan: - Without acute exacerbation - Continue home inhaler regimen (4) Atrial fibrillation: Status: Chronic Assessment and plan: - Continue home Toprol XL - Not on anticoagulation due to history of recurrent GI bleeds (5) Alcoholic liver disease: Status: Chronic Assessment and plan: - History of, without elevated LFTs or T. bili (6) CAD (coronary artery disease): Status: Chronic Assessment and plan: - Continue home beta-kassie and statin - Does not appear to be on aspirin, likely due to history of GI bleed and recent diagnosed likely subdural hematoma (7) CHF (congestive heart failure): Status: Chronic Assessment and plan: -Unknown EF or last echocardiogram, though without acute exacerbation, recommend obtaining [facility] records in the morning - Continue home beta-kassie and statin - Hold home Lasix for SAUL as noted above (8) Altered mental status: Status: Acute Assessment and plan: - Patient was documented as having confusion and encephalopathy while at [facility] - Conflicting reports on patient's baseline mental status from the [facility] - Here, patient is oriented to person and place, but not situation - Patient also reportedly hallucinating overnight as per nursing staff - Given patient's medical history and recent hospitalization, this appears to be patient's new baseline, however would recommend review of records from [facility] and discussion with staff at the [facility] - Does not appear to be in acute encephalopathy as patient not having an acute infectious process, no metabolic derangements, and head CT was negative for acute findings History of Present Illness History of Present Illness Chief Complaint: AMS Narrative: 79-year-old gentleman with past medical history NSTEMI, recurrent GI bleed due to alcoholic liver disease, HFpEF, Tineo's esophagus, COPD, A-fib, alcohol use disorder, subdural hematoma presents emergency department from the [facility] with concerns for altered mental status. Patient was reportedly sent to the emergency department because of concerns for confusion or altered mental status. He just was discharged to the [facility] on 05/07/2025 after prolonged hospitalization who was transferred there for sepsis, SAUL, and patient reportedly experienced cardiac arrest and was diagnosed with subdural hematoma versus hygroma. Just prior to discharge she was also noted as having UTI and recently completed antibiotic therapy. According to the patient, he states he was not hallucinating as plan staff had reported, and that he was just in sleep talking and had been fatigued due to lack of sleep. He denies any symptoms. In the emergency department the patient was noted as being ANO x 4, with normal physical exam, normal vital signs, normal CBC, but did have a CMP with a creatinine of 2.8, with recent creatinine from 05/10/2025 being 2.3. Patient also reported some abdominal discomfort and had a CT abdomen pelvis which was negative along with head CT which was also without acute findings. At which time emergency room provider paged hospitalist for admission for patient with SAUL on CKD. Review of Systems All systems reviewed & are unremarkable except as noted in HPI and below PFSH All Active Problems (Updated 05/12/25 @ 22:53 by Kassi Mirza) Altered mental status (Acute) CAD (coronary artery disease) (Chronic) Complete heart block (Acute) DX at [facility] Junctional escape beats (Acute) DX at [facility] Pacemaker (Acute) Placed 04/20/2025 at [facility] by Deidra Pereira MD Odynophagia (Acute) Acute on chronic kidney failure (Acute) Community acquired bacterial pneumonia (Acute) Aspiration pneumonia (Acute) Alcohol intoxication (Acute) ACP (advance care planning) (Acute) Seasonal allergies (Acute) Atherosclerosis of abdominal aorta (Acute) Iliac artery stenosis, bilateral (Acute) Coronary artery calcification seen on CAT scan (Acute) Hiatal hernia (Chronic) Delirium due to multiple etiologies (Acute) Anemia, chronic disease (Acute) CKD (chronic kidney disease) stage 3, GFR 30-59 ml/min (Chronic) Falls frequently (Acute) Blunt head trauma (Acute) Blunt trauma of multiple sites of trunk (Acute) Fall (Acute) Impaired gait and mobility (Acute ~03/2023) Hyperlipidemia (Chronic) Tobacco abuse disorder (Chronic) Cut down 1/2PPD Personal history of noncompliance with medical treatment and regimen (Chronic) Alcoholic liver disease (Chronic) Anemia (Chronic ~02/2022) S/P GI bleed CHF (congestive heart failure) (Chronic ~02/2023) ECHO 02/2022 LVEF 45-50% Depression (Chronic) Plans on getting connected to social work Tineo's esophagus (Chronic ~04/2019) ETOH; Upper endoscopy 03/2019 (see path report--no tineo's?, but 08/15/2019 surg note says +tineo's) Weakness (Acute) LE weakness; Home PT Urinary retention (Chronic) Dr. Ramos COPD (chronic obstructive pulmonary disease) (Chronic) Atrial fibrillation (Chronic) Paroxysmal per hospital records; not anticoagulated secondary to recurrent GI bleeds from chronic EtOH use Medical History Lack of housing Adult failure to thrive Iron deficiency anemia due to chronic blood loss Hypomagnesemia Alcohol use disorder Acute upper gastrointestinal bleeding (~02/2022) Gastric ulcer Troponin level elevated Gout Colchicine prevention Sleeping difficulty Melatonin RX Insomnia Radicular pain of right lower extremity GI bleed Tineo's esophagus Right knee pain UTI (urinary tract infection) Hematemesis Depression Renal insufficiency Smoking hx Surgical History H/O esophagogastroduodenoscopy (~05/2019) Repeat on 10/26/20 [facility] [place] severe reflux esophagitis w/ non-bleeding esophageal ulcer. 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) What type of physical activity do you participate in: none Do you feel safe at home: Yes Do you feel safe in your relationship?: Yes Additional Social history: Lives alone in apartment on [address] Allergies and Home Medications Allergies Allergy/AdvReac Type Severity Reaction Status Date / Time bupropion AdvReac Severe seizures Verified 05/12/25 15:41 Home Medications ?Medication ?Instructions ?Recorded ?Confirmed ?Type melatonin 3 mg tablet 3 mg PO HS #30 tabs 04/14/24 05/12/25 Rx polyethylene glycol 3350 17 gram 17 g PO DAILY PRN PRN Constipation 04/14/24 05/12/25 Rx oral powder packet #30 ea magnesium gluconate 27 mg 27 mg PO DAILY 06/17/24 05/12/25 History magnesium (500 mg) tablet (Mag-G) vitamin B complex-vitamin C-folic 1 tab PO DAILY 06/17/24 05/12/25 History acid 0.8 mg tablet (Lawanda-Elva) atorvastatin 40 mg tablet 40 mg PO HS #30 tabs 12/17/24 05/12/25 Rx metoprolol succinate 50 mg 50 mg PO DAILY #30 tabs 12/17/24 05/12/25 Rx tablet,extended release 24 hr multivitamin with iron 1 tab PO DAILY #30 tabs 12/17/24 05/12/25 Rx pantoprazole 40 mg tablet,delayed 40 mg PO BID #60 tabs 12/17/24 05/12/25 Rx release budesonide-formoterol HFA 80 2 inh inhalation BID 05/12/25 05/12/25 History mcg-4.5 mcg/actuation aerosol inhaler (Breyna) ferrous sulfate 325 mg (65 mg 325 mg PO .COMPLEX 05/12/25 05/12/25 History iron) tablet (Feosol) finasteride 5 mg tablet 5 mg PO DAILY 05/12/25 05/12/25 History furosemide 20 mg tablet (Lasix) 20 mg PO DAILY 05/12/25 05/12/25 History sertraline 50 mg tablet 50 mg PO DAILY 05/12/25 05/12/25 History tamsulosin 0.4 mg capsule 0.8 mg PO DAILY 05/12/25 05/12/25 History trazodone 50 mg tablet 50 mg PO QHS 05/12/25 05/12/25 History Exam Narrative Exam Narrative: Well-appearing older gentleman laying in bed in no acute distress, awake, alert, oriented to person and place but not situation, heart regular rate rhythm, lungs clear to auscultation bilaterally, abdomen soft, nontender, nondistended, patient appears intermittently confused, thinking that provider entered the room through the window and not the door, appears to lack insight into current and recent hospitalization Results Labs 05/12/25 16:57 05/12/25 16:57 Labs: Laboratory Results - last 24 hr 05/12/25 05/12/25 05/12/25 16:57 18:05 20:16 WBC 7.05 RBC 4.09 L Hgb 10.2 L Hct 33.9 L MCV 83 MCH 24.9 L MCHC 30.1 L RDW 18.1 H Plt Count 332 MPV 9.7 Immature Gran % 0.7 Neutrophils % 64.3 Lymphocytes % 16.9 Monocytes % 12.1 Eosinophils % 4.7 Basophils % 1.3 Nucleated RBC % 0.0 Absolute Neutrophils 4.54 Absolute Lymphocytes 1.19 L Absolute Monocytes 0.85 H Absolute Eosinophils 0.33 Absolute Basophils 0.09 Sodium 137 Potassium 4.9 Chloride 100 Carbon Dioxide 25.0 Anion Gap 12.0 H BUN 47 H Creatinine 2.8 H Est GFR (CKD-EPI 2020) 22.39 Glucose 110 H Calcium 9.4 Magnesium 2.2 Total Bilirubin 0.3 AST 36 ALT 25 Alkaline Phosphatase 122 H Ammonia Cancelled < 10 L Total Protein 7.6 Albumin 3.6 TSH 2.77 Urine Color Yellow Urine Clarity Clear Urine pH 5.5 Ur Specific [place] 1.020 Urine Protein Negative Urine Ketones Negative Urine Blood Trace-intact H Urine Nitrite Negative Urine Bilirubin Negative Urine Urobilinogen 0.2 Ur Leukocyte Esterase Moderate H Urine RBC 20-50 H Urine WBC 20-50 H Ur Epithelial Cells Rare Urine Crystals Few Amorphous Urine Bacteria Many Urine Casts Negative Urine Mucus Negative Ur Culture Indicated? Yes Urine Glucose Negative Last Vital Signs Temp 98.7 F 05/12/25 15:01 Pulse 98 H 05/12/25 20:19 Resp 18 05/12/25 20:19 BP 100/55 L 05/12/25 20:19 Pulse Ox 92 05/12/25 20:19 Time Spent Time spent with Patient: >75 minutes Time was spent: preparing to see the patient(eg.review tests), obtaining and/or reviewing separately otained hiistory, ordering medications,tests, procedures, referring, communicating with other health home care associate, indepentently interpreting results, counseling the patient and care coordination
[2025-05-12] MEDS: Normal Saline 500 ML IV (21:22)
--- NOTE | 2025-05-12 22:25 | W.PC.ACHO ---
Registration Status: REG ER Primary Language: Preferred Language: ED Information & Data Chief Complaint AMS/LOC 05/12/25 15:36 Triage Note BIBA from [facility] for 05/12/25 14:54 increased agitation. Pt reports he feels like his normal self, suffering from some anxiety, but otherwise alert and oriented to person , place, and event. Confused about date. Staff at [facility] reports increased confusion. Recently dc'd from Med[facility]urg s/p UTI. Medical / Surgical History Impaired instrumental activities of daily living Palliative care patient Lack of housing Adult failure to thrive Iron deficiency anemia due to chronic blood loss Hypomagnesemia Alcohol use disorder Acute upper gastrointestinal bleeding (~02/2022) Gastric ulcer Troponin level elevated Gout Sleeping difficulty Insomnia Radicular pain of right lower extremity GI bleed Cooper's esophagus Right knee pain UTI (urinary tract infection) Hematemesis Depression Renal insufficiency Smoking hx (Last Reviewed 12/16/24 @ 13:37 by Sonya Dave NP) H/O esophagogastroduodenoscopy (~05/2019) Most Recent Vital Signs Temperature 37.1 C 05/12/25 15:01 Temperature Source Oral 05/12/25 15:01 Pulse 96 H 05/12/25 21:39 Pulse 96 H 05/12/25 17:01 Respiratory Rate 20 05/12/25 21:39 Respiratory Effort Normal 05/12/25 21:39 Respiratory Depth Normal 05/12/25 21:39 Respiratory Pattern Normal 05/12/25 21:39 Blood Pressure 123/95 H 05/12/25 21:39 Blood Pressure Mean 104 05/12/25 21:39 Blood Pressure Position Sitting 05/12/25 21:39 Pulse Oximetry 92 05/12/25 21:39 Oxygen Delivery Method Room Air 05/12/25 21:39 Oxygen Flow Rate 0 05/12/25 21:39 Pain Level 0 05/12/25 19:24 Allergies bupropion Adverse Reaction (Severe, Verified 05/12/25 15:41) seizures 09/02/20- pt reports he fell, Nobody ever told me I had seizures IV IV Catheter Type [Left Wrist] Diffusics IV Catheter Gauge [Left Wrist] 20 Diagnostics 05/12/25 05/12/25 05/12/25 Range/Units 20:16 18:05 16:57 WBC 7.05 (4.4-10.8) 10^3/uL RBC 4.09 L (4.36-5.78) 10^6/uL Hgb 10.2 L (13.5-17.5) g/dL Hct 33.9 L (40.0-50.0) % MCV 83 (80-95) fL MCH 24.9 L (27.0-33.0) pg MCHC 30.1 L (32.0-36.0) % RDW 18.1 H (11.8-14.1) % Plt Count 332 (130-400) 10^3/uL MPV 9.7 (8.0-11.0) fL Immature Gran % 0.7 % Neutrophils % 64.3 % Lymphocytes % 16.9 % Monocytes % 12.1 % Eosinophils % 4.7 % Basophils % 1.3 % Nucleated RBC % 0.0 (0.0-0.3) % Absolute Neutrophils 4.54 (1.2-6.7) 10^3/uL Absolute Lymphocytes 1.19 L (1.2-3.4) 10^3/uL Absolute Monocytes 0.85 H (0.1-0.8) 10^3/uL Absolute Eosinophils 0.33 (0.0-0.7) 10^3/uL Absolute Basophils 0.09 (0.0-0.2) 10^3/uL Sodium 137 (136-145) mmol/L Potassium 4.9 (3.5-5.1) mmol/L Chloride 100 (98-107) mmol/L Carbon Dioxide 25.0 (21.0-32.0) mmol/L Anion Gap 12.0 H (3-11) mmol/L BUN 47 H (7-18) mg/dL Creatinine 2.8 H (0.70-1.30) mg/dL Est GFR (CKD-EPI 2020) 22.39 (mL/min/1.73m2) Glucose 110 H (74-106) mg/dL Calcium 9.4 (8.5-10.1) mg/dL Magnesium 2.2 (1.8-2.4) mg/dL Total Bilirubin 0.3 (0.2-1.0) mg/dL AST 36 (15-37) U/L ALT 25 (16-63) U/L Alkaline Phosphatase 122 H (46-116) U/L Ammonia < 10 L Cancelled Total Protein 7.6 (6.4-8.2) g/dL Albumin 3.6 (3.4-5.0) g/dL TSH 2.77 (0.36-3.74) uIU/mL Urine Color Yellow (Yellow) Urine Clarity Clear (Clear) Urine pH 5.5 (5-8) Ur Specific [place] 1.020 (1.005-1.025) Urine Protein Negative (Neg-Trace) mg/dL Urine Ketones Negative (Negative) mg/dL Urine Blood Trace-intact H (Negative) Urine Nitrite Negative (Negative) Urine Bilirubin Negative (Negative) Urine Urobilinogen 0.2 (Up to 0.2) mg/dL Ur Leukocyte Esterase Moderate H (Negative) Urine RBC 20-50 H (0-2) HPF Urine WBC 20-50 H (0-5) HPF Ur Epithelial Cells Rare (Negative) HPF Urine Crystals Few Amorphous (Negative) HPF Urine Bacteria Many (Negative) HPF Urine Casts Negative (Negative) LPF Urine Mucus Negative (Negative) Ur Culture Indicated? Yes Urine Glucose Negative (Negative) mg/dL 05/12/25 20:16 Urine Culture - Pending Urine - Reflex from Ua Intake and Output - 24 Hour Total 05/12/25 14:42 thru 05/12/25 14:54 Weight 62.913 kg Falls Risk Assessment History of Falls Previous History 05/12/25 15:01 Contributing Factors Confusion,Unstable, 05/12/25 15:01 Impairments,Incontinence, Medications Ambulatory Aids Uses ambulatory device + 05/12/25 15:01 Tubes/Lines With any additional score 05/12/25 15:01 Gait Evaluation W/any additional score 05/12/25 15:01 Cognition Cognitive impairment 05/12/25 15:01 Fall Total Score 115 05/12/25 15:01 Level of Risk Maximum Risk 05/12/25 15:01 Problems (Last Reviewed 12/16/24 @ 13:37 by Snoya Dave NP) Pacemaker (Acute) Acute on chronic kidney failure (Acute) Alcoholic liver disease (Chronic) COPD (chronic obstructive pulmonary disease) (Chronic) Atrial fibrillation (Chronic) v v v v v v v v v Sending and/or Receiving Nurses: Please use comment section below to note any information pertinent to the patient hand-off not included above. Information / Comments:Recieved report from radha around 21:55.Obtained the pt.'s report and currently this bond underwriter on standby waiting for the pt.'s arrival to the unit.Received pt around 2220 per ED bed.A&Ox2 with PIV on left wrist 20 gauge.Transfered pt to bed to bed via hovermat.Situated pt into comfort. Report received from: radha
[2025-05-12] MEDS: Melatonin 3 MG TAB PO (22:50)
[2025-05-12] MEDS: traZODone 50 MG TAB PO (22:50)
[2025-05-12] MEDS: Normal Saline Flush 10 ML SYR IVP (22:52)
[2025-05-13 05:57] VITALS: BP 128/69; PULSE 89; RESP 18; TEMP 36.7; O2SAT 93
[2025-05-13 06:47] LABS: HCT 29.7 % (40.0-50.0); HGB 9.2 g/dL (13.5-17.5); MCH 25.3 pg (27.0-33.0); MCHC 31.0 % (32.0-36.0); MCV 82 fL (80-95); MPV 9.5 fL (8.0-11.0); Platelet Count 302 10^3/uL (130-400); RBC 3.63 10^6/uL (4.36-5.78); RDW 17.9 % (11.8-14.1); RDW-SD 53.7 fL; WBC 6.27 10^3/uL (4.4-10.8)
[2025-05-13 07:46] VITALS: BP 111/69; PULSE 97; RESP 16; TEMP 35.9; O2SAT 97
[2025-05-13 08:00] VITALS: O2SAT 96
[2025-05-13] MEDS: Budesonide/Formoterol 80/4.5 6.9 GM 60 PUFF INH IH ×2 (08:00→20:47)
[2025-05-13] MEDS: Tamsulosin 0.4 MG CAPCR 0.8 MG PO (08:08)
[2025-05-13] MEDS: Finasteride 5 MG TAB PO (08:08)
[2025-05-13] MEDS: Sertraline 50 MG TAB PO (08:08)
[2025-05-13] MEDS: Normal Saline Flush 10 ML SYR IVP ×2 (08:09→20:53)
[2025-05-13] MEDS: Metoprolol CR 50 MG TABCR PO (08:09)
[2025-05-13] MEDS: Pantoprazole 40 MG TABCR PO ×2 (08:09→16:24)
--- NOTE | 2025-05-13 08:43 | INITIAL_ITS ---
Date of service: 05/13/25 Time of Service: 11:14 Care Management Initial Assmt Initial Assessment Reason for Hospitalization: SAUL Functional Status/Living Situation Patient Presentation: Khoi who goes by 'Rufino' was observed laying down in bed and awake at the time of CM visit. He initially presented to the Emergency Department via EMS from [facility] for evaluation of altered mental status and acute confusion. Per [facility], the patient had a follow-up appointment scheduled for May 11, 2025, which included imaging; however, this appointment was canceled due to transportation issues. He is currently scheduled for a follow-up appointment at [facility] on May 27, 2025, with Radiology and Neurosurgery (refer to [facility] records for details). Per reported, Rufino had spent approximately two months at [facility] prior to his current placement. Per [facility], Rufino is now considered a long-term care resident at their facility. Chart review confirms that the patient is connected with the [place] [facility] ([facility]), and his assigned Records Management Clerk is Karin Moses ([phone]). CM placed a call to Ms. Lopes and left a message. CM also contacted Jayshree Isaacs, who confirmed that the COA has not yet closed the patient?s case and Karin continues to case manage Rufino. A PT consult was requested by CM. Rufino reported that PT had visited and that he participated in exercises as instructed. However, according to PT staff, the patient refused to engage with them, asked them to leave his room, and appeared angry and agitated. Throughout the interaction, Rufino repeatedly expressed that he would be discharging from the hospital tomorrow and stated he was happy to be returning home. However, he appeared confused during the conversation, referencing people who were not present and misidentifying objects in the room (e.g., referring to the hamper as a bed). According to nursing staff, the patient is alert and oriented to person x1. Per staff at [facility], the patient changed his code status to Do Not Resuscitate (DNR) last week. It was reported that this decision was made with a clear mental status and without signs of confusion at the time. [facility] has indicated they will fax the updated documentation to ; CM notified the provider. A Health Care Agent (HCA) form has also been completed; the patient?s brother is identified as the HCA. The patient affirmed today that he would like his brother to make health care decisions on his behalf if he becomes unable to do so. Per report, the patient has experienced a gradual decline in cognitive f unctioning. Per Provider, it is anticipated his baseline mentation may not return to previous level of cogitative functioning. CM will continue to follow. 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 ) Instrumental Activities of Daily Living (ADLs): Requires support Medications Medication Management: No Issues/Barriers identified Physical Functioning/Mobility Assistive Device: Per chart, Uses a cane, has a walker he rarely uses. Per patient, he uses a FWW Advance Directives Advance Directives: Do you have an Advance Directive: N , 14:58 AD On File at [facility]: N 03/19/22, 14:58 Date Asked 05/13/25 Today, 09:40 AD Date Reviewed COLST On File at [facility] Yes 03/19/22, 14:57 COLST Date Scanned 03/14/23 03/14/23, 00:20 Code Status Resuscitation Status Full Code Portal Pt does not currently have a portal and education provided: Yes Insurance Coverage/Financial Issues [place]: [place] - [id number] Care Team Visit Care Team Role Provider Type Tracie Gusman APRN MD [facility] STAFF PHYSICIAN Desirae Panda NP Primary Care Provider NURSE PRACTITIONER Kassi Mirza Emergency Provider NURSE PRACTITIONER Stefano Jhaveri MD Admit Provider [facility] STAFF PHYSICIAN Attending Provider Discharge Potential Discharge Needs: PT Evaluation and PCP F/U Appt Anticipated Barriers to Discharge: Medical Status Patient/Family Education Needs: Review discharge instructions, discuss Ask Me Three Transportation: Private vehicle Plan: Anticipate, Khoi will discharge back to [facility] the [facility], once medically ready to discharge. PT consult is pending, on first attempt the patient refused to work with them; recommendations to follow. Transportation will be dependent on his disposition and mobility needs at the time of discharge. Patient is ACO attributed. It is recommended that Khoi follows up with his facility providers and continues per his plan of care. He does have follow up appointments at [facility] on 05/27/25 for radiology and neurosurgery per [facility] chart review. CM will continue to follow. Social Determinants of Health Screening Social Determinants of health last assessed in clinic: 05/13/25 Will the Patient Participate in the Screening?: Yes Do you worry about having a steady place to live?: no Problems where you live: no known problems In the past 12 months, have you had to go without electric, gas, oil or water in your home?: no 1. Within the past 12 months, we worried whether our food would run out before we got money to buy more.: Never true 2. Within the past 12 months, the food we bought just didn't last and we didn't have money to get more.: Never true Has lack of transportation kept you from medical appointments or from doing things needed for daily living?: no Has anyone in your life made you feel unsafe or unsupported?: no How hard is it for you to pay for the very basics like food, housing, medical care, and heating? Would you say it is:: Not hard at all Do you want help finding or keeping work or a job?: I do not need or want help If for any reason you need help with day-to-day activities such as bathing, preparing meals, shopping, managing finances, etc., do you get the help you need?: I don?t need any help How often do you feel lonely or isolated from those around you?: Never Do you speak a language other than Greenlandic at home?: No Does the patient want assistance with any of the above?: No PFSH All Active Problems (Updated 05/13/25 @ 09:53 by Tracie Gusman APRN) Discharge planning issues (Acute) On deep vein thrombosis (DVT) prophylaxis (Acute) Altered mental status (Acute) CAD (coronary artery disease) (Chronic) Complete heart block (Acute) DX at [facility] Junctional escape beats (Acute) DX at [facility] Pacemaker (Acute) Placed 04/20/2025 at [facility] by Deidra Pereira MD Odynophagia (Acute) Acute on chronic kidney failure (Acute) Community acquired bacterial pneumonia (Acute) Aspiration pneumonia (Acute) Alcohol intoxication (Acute) ACP (advance care planning) (Acute) Seasonal allergies (Acute) Atherosclerosis of abdominal aorta (Acute) Iliac artery stenosis, bilateral (Acute) Coronary artery calcification seen on CAT scan (Acute) Hiatal hernia (Chronic) Delirium due to multiple etiologies (Acute) Anemia, chronic disease (Acute) CKD (chronic kidney disease) stage 3, GFR 30-59 ml/min (Chronic) Falls frequently (Acute) Blunt head trauma (Acute) Blunt trauma of multiple sites of trunk (Acute) Fall (Acute) Impaired gait and mobility (Acute ~03/2023) Hyperlipidemia (Chronic) Tobacco abuse disorder (Chronic) Cut down 1/2PPD Personal history of noncompliance with medical treatment and regimen (Chronic) Alcoholic liver disease (Chronic) Anemia (Chronic ~02/2022) S/P GI bleed CHF (congestive heart failure) (Chronic ~02/2023) ECHO 02/2022 LVEF 45-50% Depression (Chronic) Plans on getting connected to social work Tineo's esophagus (Chronic ~04/2019) ETOH; Upper endoscopy 03/2019 (see path report--no tineo's?, but 08/15/2019 surg note says +tineo's) Weakness (Acute) LE weakness; Home PT Urinary retention (Chronic) Dr. Ramos COPD (chronic obstructive pulmonary disease) (Chronic) Atrial fibrillation (Chronic) Paroxysmal per hospital records; not anticoagulated secondary to recurrent GI bleeds from chronic EtOH use Medical History Lack of housing Adult failure to thrive Iron deficiency anemia due to chronic blood loss Hypomagnesemia Alcohol use disorder Acute upper gastrointestinal bleeding (~02/2022) Gastric ulcer Troponin level elevated Gout Colchicine prevention Sleeping difficulty Melatonin RX Insomnia Radicular pain of right lower extremity GI bleed Tineo's esophagus Right knee pain UTI (urinary tract infection) Hematemesis Depression Renal insufficiency Smoking hx Surgical History H/O esophagogastroduodenoscopy (~05/2019) [place] [facility] [place] esophagitis w/ non-bleeding esophageal ulcer. 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 Readmission Within the Past 30 Days Yes or No: No
[2025-05-13 08:50] LABS: Anion Gap 15.8 mmol/L (3-11); BUN 40 mg/dL (7-18); CO2 22.2 mmol/L (21.0-32.0); Calcium 9.1 mg/dL (8.5-10.1); Chloride 102 mmol/L (98-107); Estimated GFR 25.65 (mL/min/1.73m2); Glucose 99 mg/dL (74-106); Magnesium 2.0 mg/dL (1.8-2.4); Potassium 4.2 mmol/L (3.5-5.1); Sodium 140 mmol/L (136-145)
--- NOTE | 2025-05-13 09:49 | W.PM.PROGNOT ---
Date of Service Date of service: 05/13/25 Time of Service: 09:49 Assessment and Plan Assessment and plan (1) Acute on chronic kidney failure: Status: Acute Assessment and plan: - Hx of CKD - Cr 2.8 now 2.5 s/p 500 mL bolus in the emergency department - Cr was 5.2 on 03/18/25 before TX to [facility] - Continue to hold home Lasix -Encourage oral fluid intake and monitor- IVF slow rate if not taking oral fluid - BMP in AM (2) Pacemaker: Status: Acute Assessment and plan: Placed at [facility] recently (3) COPD (chronic obstructive pulmonary disease): Status: Chronic Assessment and plan: -No exacerbation -Ongoing home medicine regimen (4) Atrial fibrillation: Status: Chronic Assessment and plan: - Ongoing home Toprol XL dose - Not on anticoagulation due to history of recurrent GI bleeds and question of subdural hematoma (5) Alcoholic liver disease: Status: Chronic Assessment and plan: - History of, without elevated ALT ,AST or total bilirubin No recent drinking since at the [facility] after d/c from [facility] (6) CAD (coronary artery disease): Status: Chronic Assessment and plan: - Continue home beta-kassie and statin - Does not appear to be on aspirin, likely due to history of GI bleed and recent diagnosed likely subdural hematoma (7) CHF (congestive heart failure): Status: Chronic Assessment and plan: -Unknown EF or last echocardiogram, though without acute exacerbation, recommend obtaining [facility] records in the morning - Continue home beta-kassie and statin - Hold home Lasix for SAUL as noted above (8) Altered mental status: Status: Acute Assessment and plan: - Patient was documented as having confusion and encephalopathy while at [facility] - Conflicting reports on patient's baseline mental status from the [facility] - Here, patient is oriented to person but not place, time or situation - Patient also reportedly hallucinating overnight as per nursing staff - Given patient's medical history and recent hospitalization, this appears to be patient's new baseline, [facility] then discussion with staff at the [facility] - Does not appear to be in acute encephalopathy as patient not having an acute infectious process, no metabolic derangements, and head CT was negative for acute findings (9) Anemia: Status: Chronic Assessment and plan: considering dilution from IVF CBC in AM (10) On deep vein thrombosis (DVT) prophylaxis: Status: Acute Assessment and plan: TEDs (11) Discharge planning issues: Status: Acute Assessment and plan: Return to the [facility] when ready CM following Discussed with Dr Kelly Subjective Subjective Patient reports: no new complaints, tolerating liquids well, tolerating a regular diet, voiding w/o difficulty, flatus and no bowel movement; denies still having pain, diarrhea, nausea, vomiting, shortness of breath or fever Exam Narrative Exam Narrative: 79 years old male patient, alert to self, no focal neurological deficit, clear lungs, unlabored breathing, abdomen is non-distended soft and non-tender, no CVA tenderness, moves all 4 ext - Objective Last Vital Signs Temp 35.9 C L 05/13/25 07:46 Pulse 97 H 05/13/25 07:46 Resp 16 05/13/25 07:46 BP 111/69 05/13/25 07:46 Pulse Ox 96 05/13/25 08:00 Laboratory Results - last 24 hr 05/12/25 05/12/25 05/12/25 16:57 18:05 20:16 WBC 7.05 RBC 4.09 L Hgb 10.2 L Hct 33.9 L MCV 83 MCH 24.9 L MCHC 30.1 L RDW 18.1 H Plt Count 332 MPV 9.7 Immature Gran % 0.7 Neutrophils % 64.3 Lymphocytes % 16.9 Monocytes % 12.1 Eosinophils % 4.7 Basophils % 1.3 Nucleated RBC % 0.0 Absolute Neutrophils 4.54 Absolute Lymphocytes 1.19 L Absolute Monocytes 0.85 H Absolute Eosinophils 0.33 Absolute Basophils 0.09 Sodium 137 Potassium 4.9 Chloride 100 Carbon Dioxide 25.0 Anion Gap 12.0 H BUN 47 H Creatinine 2.8 H Est GFR (CKD-EPI 2020) 22.39 Glucose 110 H Calcium 9.4 Magnesium 2.2 Total Bilirubin 0.3 AST 36 ALT 25 Alkaline Phosphatase 122 H Ammonia Cancelled < 10 L Total Protein 7.6 Albumin 3.6 TSH 2.77 Urine Color Yellow Urine Clarity Clear Urine pH 5.5 Ur Specific Lefor 1.020 Urine Protein Negative Urine Ketones Negative Urine Blood Trace-intact H Urine Nitrite Negative Urine Bilirubin Negative Urine Urobilinogen 0.2 Ur Leukocyte Esterase Moderate H Urine RBC 20-50 H Urine WBC 20-50 H Ur Epithelial Cells Rare Urine Crystals Few Amorphous Urine Bacteria Many Urine Casts Negative Urine Mucus Negative Ur Culture Indicated? Yes Urine Glucose Negative 05/13/25 05:50 WBC 6.27 RBC 3.63 L Hgb 9.2 L Hct 29.7 L MCV 82 MCH 25.3 L MCHC 31.0 L RDW 17.9 H Plt Count 302 MPV 9.5 Immature Gran % Neutrophils % Lymphocytes % Monocytes % Eosinophils % Basophils % Nucleated RBC % Absolute Neutrophils Absolute Lymphocytes Absolute Monocytes Absolute Eosinophils Absolute Basophils Sodium 140 Potassium 4.2 Chloride 102 Carbon Dioxide 22.2 Anion Gap 15.8 H BUN 40 H Creatinine 2.5 H Est GFR (CKD-EPI 2020) 25.65 Glucose 99 Calcium 9.1 Magnesium 2.0 Total Bilirubin AST ALT Alkaline Phosphatase Ammonia Total Protein Albumin TSH Urine Color Urine Clarity Urine pH Ur Specific Lefor Urine Protein Urine Ketones Urine Blood Urine Nitrite Urine Bilirubin Urine Urobilinogen Ur Leukocyte Esterase Urine RBC Urine WBC Ur Epithelial Cells Urine Crystals Urine Bacteria Urine Casts Urine Mucus Ur Culture Indicated? Urine Glucose PAWSS Have you Been Recently Intoxicated or Drunk Within the Last 30 days?: Unable to Obtain Time Spent with Patient Time Spent with Patient: >50 minutes Time was spent: preparing to see the patient(eg.review tests), obtaining and/or reviewing separately otained hiistory, ordering medications,tests, procedures, referring, communicating with other health child day care teacher, indepentently interpreting results, counseling the patient and care coordination
--- NOTE | 2025-05-13 11:10 | PHA.REVIEW2 ---
Pharmacy Admission Review Admission Clinical Review Admission Pharmacy Review: Discharge planning issues (Acute) On deep vein thrombosis (DVT) prophylaxis (Acute) Altered mental status (Acute) Pacemaker (Acute) Acute on chronic kidney failure (Acute) bupropion Adverse Reaction (Severe, Verified 05/12/25 15:41) seizures Resuscitation Status Full Code Height 5 ft 5 in Weight 62.913 kg Comments Comments/Follow Ups: Urine culture pending Pharmacy Admission Review Renal Dosing Renal Dosing: BUN 40 mg/dL (7-18) H 05/13/25 05:50 Creatinine 2.5 mg/dL (0.70-1.30) H 05/13/25 05:50 Medications needing adjustments: Reviewed (CrCl 21.67 mL/min, BUN decreased from 47 and SCr decreased from 2.8) List of meds needing interventions: Current medications are okay Anticoagulation Anticoagulation: Hgb 9.2 g/dL (13.5-17.5) L 05/13/25 05:50 Hct 29.7 % (40.0-50.0) L 05/13/25 05:50 Plt Count 302 10^3/uL (130-400) 05/13/25 05:50 Creatinine 2.5 mg/dL (0.70-1.30) H 05/13/25 05:50 DVT Prophylaxis: Reviewed (TEDs, Hgb decreased from 10.2) Relevant Labs Relevant Labs: Sodium 140 mmol/L (136-145) 05/13/25 05:50 Potassium 4.2 mmol/L (3.5-5.1) 05/13/25 05:50 Chloride 102 mmol/L (98-107) 05/13/25 05:50 Magnesium 2.0 mg/dL (1.8-2.4) 05/13/25 05:50 Electrolytes, C-Reactive P, ESR: Reviewed Cardiac Review BP, HR, EF%: Reviewed (BP WNL, HR 97) List meds needing interventions: Has order for metoprolol XL 50mg daily QTc Review QTc: Reviewed (470 from 05/12/25) IV to PO Switch IV Medications: Reviewed Home Meds Home Med List reviewed: Reviewed Relevent Home Meds Not ordered & why?: furosemide (on hold per H+P - SAUL), ferrous sulfate, magnesium gluconate, multivitamin and vitamin B complex Current Meds Current Medication Order Review: Intervened Comments: Changed IV ED access order Comments Comments/Follow Ups: Urine culture pending
[2025-05-13 11:42] VITALS: BP 94/65; PULSE 77; RESP 16; TEMP 36.8; O2SAT 94
[2025-05-13] MEDS: Docusate Sodium 100 MG CAP PO ×2 (15:01→20:46)
[2025-05-13] MEDS: Acetaminophen 325 MG TAB 650 MG PO (15:01)
[2025-05-13] MEDS: Polyethylene Glycol 3350 17 GM PACKET PO (15:01)
[2025-05-13] MEDS: Lactated Ringers 1,000 ML 75 ML IV (15:02)
--- NOTE | 2025-05-13 15:57 | PT.INNT ---
PT Notes Visit Reasons: SAUL Westfall presented in a darkened room supine in bed with his feet off the right side of the bed. He responded to his name. This PT identified herself and why she was there. He declined to participate. He became agitated when asked to do something on initial and subsequent attempts. Tracie Gusman NP and RN Vidal aware of pt unwillingness to cooperate for assessment. Per RN pt hallucinating/ talking to people not in room. Per CM, Pt reported he participated in PT assessment and did all things asked of him. Pt may be more willing to participate when the movement i.e. getting OOB is purposeful to him, such as needing the bathroom or wanting to be up for a meal. Will attempt assessment on 05/14/25.
[2025-05-13] MEDS: THIAMINE 500 MG in Normal Saline 100 ML 200 MG IVPB (16:24)
[2025-05-13 19:03] VITALS: BP 98/67; PULSE 96; RESP 20; TEMP 36.4; O2SAT 96
[2025-05-13] MEDS: traZODone 50 MG TAB PO (20:46)
[2025-05-13] MEDS: Atorvastatin 40 MG TAB PO (20:46)
[2025-05-13] MEDS: Acetaminophen 500 MG TAB 1000 MG PO (20:46)
[2025-05-13] MEDS: Melatonin 3 MG TAB PO (20:46)
[2025-05-14] MEDS: THIAMINE 500 MG in Normal Saline 100 ML 200 MG IVPB ×2 (00:04→08:40)
[2025-05-14 05:57] VITALS: BP 101/69; PULSE 88; RESP 18; TEMP 36.6; O2SAT 95
[2025-05-14] MEDS: Budesonide/Formoterol 80/4.5 6.9 GM 60 PUFF INH IH (08:09)
[2025-05-14] MEDS: Tamsulosin 0.4 MG CAPCR 0.8 MG PO (08:27)
[2025-05-14] MEDS: Finasteride 5 MG TAB PO (08:28)
[2025-05-14] MEDS: Pantoprazole 40 MG TABCR PO (08:28)
[2025-05-14] MEDS: Docusate Sodium 100 MG CAP PO (08:28)
[2025-05-14] MEDS: Sertraline 50 MG TAB PO (08:28)
[2025-05-14] MEDS: Metoprolol CR 50 MG TABCR PO (08:28)
[2025-05-14] MEDS: Acetaminophen 500 MG TAB 1000 MG PO (08:28)
[2025-05-14] MEDS: Normal Saline Flush 10 ML SYR IVP (08:29)
[2025-05-14 08:48] VITALS: BP 96/61; PULSE 68; RESP 16; TEMP 37.1; O2SAT 93
--- NOTE | 2025-05-14 09:33 | W.PM.PROGNOT ---
Date of Service Date of service: 05/14/25 Time of Service: 09:33 Assessment and Plan Assessment and plan (1) Acute on chronic kidney failure: Status: Acute Assessment and plan: - Hx of CKD - Cr 2.8 now 2.5 s/p 500 mL bolus in the emergency department - Cr was 5.2 on 03/18/25 before TX to [facility] - Continue to hold home Lasix -Encourage oral fluid intake and monitor- IVF slow rate if not taking oral fluid - BMP in AM (2) Pacemaker: Status: Acute Assessment and plan: 04/20/25 micra PPM placement at [facility] (3) COPD (chronic obstructive pulmonary disease): Status: Chronic Assessment and plan: -No exacerbation -Ongoing home medicine regimen (4) Atrial fibrillation: Status: Chronic Assessment and plan: - Ongoing home Toprol XL dose - Not on anticoagulation due to history of recurrent GI bleeds and question of subdural hematoma (5) Alcoholic liver disease: Status: Chronic Assessment and plan: - History of, without elevated ALT ,AST or total bilirubin No recent drinking since at the [facility] after d/c from [facility] (6) CAD (coronary artery disease): Status: Chronic Assessment and plan: - Continue home beta-kassie and statin - Does not appear to be on aspirin, likely due to history of GI bleed and recent diagnosed likely subdural hematoma (7) CHF (congestive heart failure): Status: Chronic Assessment and plan: -Unknown EF or last echocardiogram, though without acute exacerbation, recommend obtaining [facility] records in the morning - Continue home beta-kassie and statin - Hold home Lasix for SAUL as noted above (8) Altered mental status: Status: Acute Assessment and plan: - Patient was documented as having confusion and encephalopathy while at [facility] - Conflicting reports on patient's baseline mental status from the [facility] - Here, patient is oriented to person but not place, time or situation - Patient also reportedly hallucinating overnight as per nursing staff - Given patient's medical history and recent hospitalization, this appears to be patient's new baseline, [facility] then discussion with staff at the [facility] - Does not appear to be in acute encephalopathy as patient not having an acute infectious process, no metabolic derangements, and head CT was negative for acute findings (9) Anemia: Status: Chronic Assessment and plan: considering dilution from IVF CBC in AM (10) On deep vein thrombosis (DVT) prophylaxis: Status: Acute Assessment and plan: TEDs (11) Discharge planning issues: Status: Acute Assessment and plan: Return to the [facility] when ready CM following Discussed with Dr Kelly Subjective Subjective Patient reports: no new complaints, tolerating liquids well, tolerating a regular diet, voiding w/o difficulty, flatus and no bowel movement; denies still having pain, diarrhea, nausea, vomiting, shortness of breath or fever Exam Narrative Exam Narrative: 79 years old male patient, alert to self, no focal neurological deficit, clear lungs, unlabored breathing, abdomen is non-distended soft and non-tender, no CVA tenderness, moves all 4 ext - Objective Last Vital Signs Temp 37.1 C 05/14/25 08:48 Pulse 68 05/14/25 08:48 Resp 16 05/14/25 08:48 BP 96/61 L 05/14/25 08:48 Pulse Ox 93 05/14/25 08:48 PAWSS Have you Been Recently Intoxicated or Drunk Within the Last 30 days?: Unable to Obtain
--- NOTE | 2025-05-14 10:53 | PCNE_ITS ---
Date of service: 05/14/25 Time of Service: 10:53 History of Present Illness Narrative: Rufino is a 79 year old man that was previously established with Palliative care, his last visit was in 11/2024 while he was in patient. He is now a resident of the [facility]. He was discharged to the [facility] on 05/07/2025 after prolonged hospitalization at [facility] for sepsis, SAUL, and patient reportedly experienced cardiac arrest and required CPR. The [facility] staff sent him to the ED with concern for AMS. He was admitted for acute on chronic kidney failure. A COLST was completed at the [facility] that states DNR/DNI. He is seen by Palliative to re-establish care. Rufino was seen in his hospital room. He was alone at the time of the visit. He was tired and falling asleep. He reports that he does not sleep well at night and often sleeps in the morning. He is feeling better than when he came in. He denies pain, N/V, he is eating well. Discussed recent hospitalization at [facility] and what he went through. He is alert and oriented. He declined PT yesterday. Reviewed HCA, he named his brother, Owen in 2021 and wishes to keep him listed. He does not have an alternate agent and does not want to add one. It appears he now has LTM. He is agreeable to having f/u palliative visits at the [facility]. He will return there today. Assessment and Plan Assessment and plan (1) Acute on chronic kidney failure: Status: Acute Assessment and plan: Improving. (2) Pacemaker: Status: Acute Assessment and plan: 04/20/25 micra PPM placement at [facility] (3) COPD (chronic obstructive pulmonary disease): Status: Chronic Assessment and plan: -No exacerbation -Ongoing home medicine regimen (4) Atrial fibrillation: Status: Chronic Assessment and plan: - Ongoing home Toprol XL dose - Not on anticoagulation due to history of recurrent GI bleeds and question of subdural hematoma (5) Alcoholic liver disease: Status: Chronic Assessment and plan: - History of, without elevated ALT ,AST or total bilirubin No recent drinking since at the [facility] after d/c from [facility] (6) CAD (coronary artery disease): Status: Chronic Assessment and plan: - Continue home beta-kassie and statin - Does not appear to be on aspirin, likely due to history of GI bleed and recent diagnosed likely subdural hematoma (7) CHF (congestive heart failure): Status: Chronic Assessment and plan: -Unknown EF or last echocardiogram, though without acute exacerbation - Continue home beta-kassie and statin - Hold home Lasix for SAUL as noted above (8) Altered mental status: Status: Acute Assessment and plan: - Patient was documented as having confusion and encephalopathy while at [facility] - He was sent to ED from [facility] to ED for AMS. He appears to be nearing baseline. He is oriented to person, place and time today. No acute infectious process, no metabolic derangements, and head CT was negative for acute findings (9) Anemia: Status: Chronic Assessment and plan: Hgb 8.9 this morning. (10) Palliative care patient: Assessment and plan: 79-year-old gentleman with past medical history NSTEMI, recurrent GI bleed due to alcoholic liver disease, HFpEF, Tineo's esophagus, COPD, A-fib, alcohol use disorder who presented to the ED from the [facility] for AMS. He is feeling much better today. He is fatigued but generally does not sleep well at night and gets his sleep in the morning hours. He was previously followed by Palliative. He previously established (2021) that his brother, Owen is his HCA. Reviewed today. He also completed a DNR/DNI COLST at the [facility] (on file). He is agreeable to f/u at the [facility], he will return there today. Review of Systems Narrative: PER HPI PFSH All Active Problems Discharge planning issues (Acute) On deep vein thrombosis (DVT) prophylaxis (Acute) Altered mental status (Acute) CAD (coronary artery disease) (Chronic) Complete heart block (Acute) DX at [facility] Junctional escape beats (Acute) DX at [facility] Pacemaker (Acute) Placed 04/20/2025 at [facility] by Deidra Pereira MD Odynophagia (Acute) Acute on chronic kidney failure (Acute) Community acquired bacterial pneumonia (Acute) Aspiration pneumonia (Acute) Alcohol intoxication (Acute) ACP (advance care planning) (Acute) Seasonal allergies (Acute) Atherosclerosis of abdominal aorta (Acute) Iliac artery stenosis, bilateral (Acute) Coronary artery calcification seen on CAT scan (Acute) Hiatal hernia (Chronic) Delirium due to multiple etiologies (Acute) Anemia, chronic disease (Acute) CKD (chronic kidney disease) stage 3, GFR 30-59 ml/min (Chronic) Falls frequently (Acute) Blunt head trauma (Acute) Blunt trauma of multiple sites of trunk (Acute) Fall (Acute) Impaired gait and mobility (Acute ~03/2023) Hyperlipidemia (Chronic) Tobacco abuse disorder (Chronic) Cut down 1/2PPD Personal history of noncompliance with medical treatment and regimen (Chronic) Alcoholic liver disease (Chronic) Anemia (Chronic ~02/2022) S/P GI bleed CHF (congestive heart failure) (Chronic ~02/2023) ECHO 02/2022 LVEF 45-50% Depression (Chronic) Plans on getting connected to social work Tineo's esophagus (Chronic ~04/2019) ETOH; Upper endoscopy 03/2019 (see path report--no tineo's?, but 08/15/2019 surg note says +tineo's) Weakness (Acute) LE weakness; Home PT Urinary retention (Chronic) Dr. Ramos COPD (chronic obstructive pulmonary disease) (Chronic) Atrial fibrillation (Chronic) Paroxysmal per hospital records; not anticoagulated secondary to recurrent GI bleeds from chronic EtOH use Medical History Impaired instrumental activities of daily living Palliative care patient Lack of housing Adult failure to thrive Iron deficiency anemia due to chronic blood loss Hypomagnesemia Alcohol use disorder Acute upper gastrointestinal bleeding (~02/2022) Gastric ulcer Troponin level elevated Gout Colchicine prevention Sleeping difficulty Melatonin RX Insomnia Radicular pain of right lower extremity GI bleed Tineo's esophagus Right knee pain UTI (urinary tract infection) Hematemesis Depression Renal insufficiency Smoking hx Surgical History H/O esophagogastroduodenoscopy (~05/2019) Repeat on 10/26/20 [facility] severe reflux esophagitis w/ non-bleeding esophageal ulcer. 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 He appeared chronically ill and fatigued. He was falling asleep during the visit. He engaged to a limited extent. HEENT: atraumatic, EOMI, mmm. Neck: supple Respiratory: respirations appear even and unlabored at rest and with talking. Ext: moves all 4 extremities, no edema. Results Last Vital Signs Temp 37.1 C 05/14/25 08:48 Pulse 68 05/14/25 08:48 Resp 16 05/14/25 08:48 BP 96/61 L 05/14/25 08:48 Pulse Ox 93 05/14/25 08:48 Labs 05/13/25 05:50 05/13/25 05:50 Time Spent Time Spent with Patient Time Spent(min): 68
[2025-05-14 10:56] LABS: Abs Immature Grans 0.05 10^3/uL (0.0-0.06); HCT 29.1 % (40.0-50.0); HGB 8.9 g/dL (13.5-17.5); Immature Grans % 0.9 %; MCH 25.0 pg (27.0-33.0); MCHC 30.6 % (32.0-36.0); MCV 82 fL (80-95); MPV 9.1 fL (8.0-11.0); Platelet Count 258 10^3/uL (130-400); RBC 3.56 10^6/uL (4.36-5.78); RDW 17.7 % (11.8-14.1); RDW-SD 53.2 fL; WBC 5.58 10^3/uL (4.4-10.8)
[2025-05-14 11:04] LABS: Anion Gap 10.4 mmol/L (3-11); BUN 35 mg/dL (7-18); CO2 24.6 mmol/L (21.0-32.0); Calcium 8.9 mg/dL (8.5-10.1); Chloride 105 mmol/L (98-107); Estimated GFR 29.91 (mL/min/1.73m2); Glucose 108 mg/dL (74-106); Potassium 4.1 mmol/L (3.5-5.1); Sodium 140 mmol/L (136-145)
[2025-05-14 11:07] LABS: Anisocytosis 1+
--- NOTE | 2025-05-14 11:19 | PDOC.CMDIS ---
Date of service: 05/14/25 Time of Service: 11:20 LACE Index Scoring Tool Questions: Length of Stay (in days): 2 Was the patient admitted via the E.D.?: Yes Comorbidities: Congestive Heart Failure, Chronic Pulmonary Disease and Liver or Renal Disease E.D. Visits: 4 Answers: Total Score: 14 Risk of Readmission: High Risk Care Management Discharge Plan Reason for Hospitalization: SAUL Discharge Plan: Khoi is discharged back to the [facility] for resumption of SN and PT. Patient will follow up with facility and community providers and continue per discharge plan of care. [facility] W/C alexandra provided transportation. Patient/Family Education Needs: Review discharge instructions and plan to follow up after discharge, discuss ask me three. Services Needed at Discharge: Custodial Facility ([place], [facility] [place] resident) and Transportation ([facility] W/C alexandra coordinated by [facility])
--- NOTE | 2025-05-14 11:19 | W.PM.DS.N ---
Date of service: 05/14/25 Time of Service: 11:20 DS: Diagnosis Discharge Diagnosis (1) Acute on chronic kidney failure: Status: Acute (2) Pacemaker: Status: Acute (3) COPD (chronic obstructive pulmonary disease): Status: Chronic (4) Atrial fibrillation: Status: Chronic (5) Alcoholic liver disease: Status: Chronic (6) CAD (coronary artery disease): Status: Chronic (7) CHF (congestive heart failure): Status: Chronic (8) Altered mental status: Status: Acute (9) Anemia: Status: Chronic (10) On deep vein thrombosis (DVT) prophylaxis: Status: Acute (11) Discharge planning issues: Status: Acute Discharge Plan Disposition Patient Disposition: Intermediate Facility(SNF) Condition: Stable Discharge Details Reason For Visit: SAUL Admit Date/Time: 05/12/25 20:58 Admit Provider: Stefano Jhaveri Attending Provider: Stefano Jhaveri Primary Care Provider: Desirae Panda Hospital Course Hospital Course: 79-year-old gentleman with past medical history NSTEMI, recurrent GI bleed due to alcoholic liver disease, HFpEF, Tineo's esophagus, COPD, A-fib, alcohol use disorder, subdural hematoma and recent hospitalization at [facility] with cardiac arrest, intubation, TTM, pacemaker placement, UTI and diagnosed with subdural hematoma versus hygroma presented emergency department on 05/12/25 from the [facility] with concerns for altered mental status. In the emergency department the patient was noted as being ANO x 4, with normal physical exam, normal vital signs, normal CBC, had a creatinine of 2.8, with recent creatinine from 05/10/2025 being 2.3. Patient also reported some abdominal discomfort and had a CT abdomen pelvis which was negative along with head CT which was also without acute findings. At which time emergency room provider paged hospitalist for admission for patient with SAUL on CKD. During the stay, the patient received high dose thiamine therapy X 2 days for suspicion of Wernicke encephalopathy exacerbated by dehydration as records mentioned daily drinking of whisky. The patient is more cooperative today despite remaining evasive during conversation and easily irritated when confronted with insistence such as when working with physical therapy. The patient is hemodynamically stable, tolerating oral intake and understands that he needs to keep hydrated. 5 days of IM thiamine regimen ordered at discharge. Adequate oral fluid intake is primordial in preventing further admission for SAUL or dehydration. A short course of acetaminophen ordered on discharged as patient was witness to have better mobility with scheduled pain management regimen; he was on hydromorphone during his stay at [facility]. Palliative care re-established during stay with outpatient follow-up. Recommendation for discharge follow-up: Refer to [facility] recommendations at discharge, please. Iron and thiamine studies Patient wants to know when he is getting meds to help with insomnia Discussed with Dr. Kelly Home Meds and New Rx's Prescriptions: New acetaminophen 500 mg Tablet 1,000 mg PO TID Qty: 30 0RF Rx Instructions: Further order for pain management as per provider at the [facility] thiamine HCl (vitamin B1) 100 mg/mL solution 250 mg IM DAILY Qty: 12.5 0RF Rx Instructions: Then 100 mg PO daily after IM course is completed thiamine HCl (vitamin B1) 100 mg tablet 100 mg PO DAILY Qty: 14 0RF Rx Instructions: Starting on 05/20/25 after IM course of thiamine is completed docusate sodium [Colace] 100 mg Capsule 100 mg PO BID PRNQty: 60 0RF Continued atorvastatin 40 mg tablet 40 mg PO HS Qty: 30 0RF pantoprazole 40 mg tablet,delayed release (DR/EC) 40 mg PO BID Qty: 60 0RF Rx Instructions: GI bleed multivitamin with iron Tablet 1 tab PO DAILY Qty: 30 0RF metoprolol succinate 50 mg tablet extended release 24 hr 50 mg PO DAILY Qty: 30 0RF melatonin 3 mg Tablet 3 mg PO HS Qty: 30 0RF Lawanda-Elva 0.8 mg tablet 1 tab PO DAILY magnesium gluconate [Mag-G] 27 mg magnesium (500 mg) tablet 27 mg PO DAILY tamsulosin 0.4 mg capsule 0.8 mg PO DAILY trazodone 50 mg tablet 50 mg PO QHS finasteride 5 mg tablet 5 mg PO DAILY sertraline 50 mg tablet 50 mg PO DAILY furosemide [Lasix] 20 mg tablet 20 mg PO DAILY budesonide-formoterol [Breyna] 80-4.5 mcg/actuation HFA aerosol inhaler 2 inh inhalation BID Changed polyethylene glycol 3350 17 gram Powder In Packet 17 g PO DAILY Qty: 30 0RF Held ferrous sulfate [Feosol] 325 mg (65 mg iron) tablet 325 mg PO .COMPLEX Hold Instructions: Resume on 05/21/25. Resume as per outpatient provider Rx Instructions: 325 mg orally Every other day; Discharge Instructions Referrals: Desirae Panda NP [Primary Care Provider, Medicine] Referral Note: Follow-up with outpatient provider at the [facility] within 7 days of discharge Activity:: Activity as Tolerated Equipment/Supplies:: Walker Diet:: heart healthy Discharge Orders Discharge Orders: Discharge Order (Routine); Ordered 05/14/25 Ordered By: Tracie Gusman DS: Summary Time Spent with Patient providing and/or coordinating discharge services: Greater than 30 minutes Status at Discharge Functional status at discharge: uses cane/walker Overall status at discharge: patient is progressing back to baseline Mental Status: mental status grossly normal Speech and Movement: speech and movement normal Mood: anxious mood and irritable mood Affect: labile affect and anxious affect Exam Narrative Exam Narrative: 79 years old male patient, alert and oriented X3 , no focal neurological deficit, clear lungs, unlabored breathing,S1, S2 , no murmur, PPPX4 , abdomen is non-distended soft and non-tender, no CVA tenderness, moves all 4 ext - Psych Mental Status: mental status grossly normal Speech and Movement: speech and movement normal Mood: anxious mood and irritable mood Affect: labile affect and anxious affect DS: Data Vitals/I&O Vitals and I&O: Vital Signs Temperature 37.1 C 05/14/25 08:48 Temperature Source Temporal Artery Scan 05/14/25 08:48 Pulse 68 05/14/25 08:48 Pulse Rhythm Regular 05/12/25 22:26 Pulse 96 H 05/12/25 17:01 Respiratory Rate 16 05/14/25 08:48 Respiratory Effort Normal 05/12/25 22:26 Respiratory Depth Normal 05/12/25 22:26 Respiratory Pattern Normal 05/12/25 22:26 Blood Pressure 96/61 L 05/14/25 08:48 Blood Pressure Mean 72 05/14/25 08:48 Blood Pressure Position Sitting 05/12/25 21:39 Pulse Oximetry 93 05/14/25 08:48 Oxygen Delivery Method Room Air 05/14/25 08:48 Oxygen Flow Rate 0 05/14/25 08:48 Pain Level 0 05/13/25 19:03 Comment Pt sleeping refused vitals. 05/14/25 04:05 Intake & Output 08/05/13/25 05/14/25 11:59 23:59 11:59 Intake Total 740 / 1105 365 / 1105 1345 / 1345 Output Total 300 / 300 Balance 740 / 1105 365 / 1105 1045 / 1045 Intake: IV 500 / 625 125 / 625 1105 / 1105 Oral 240 / 480 240 / 480 240 / 240 Output: Urine 300 / 300 Other: Urine Color Yellow Straw Light Hannah Urine Appearance Clear Clear Urine Odor Normal Normal Data Completed and Pending Labs on day of discharge: Labs from last 24 hours 05/14/25 10:45 WBC 5.58 RBC 3.56 L Hgb 8.9 L Hct 29.1 L MCV 82 MCH 25.0 L MCHC 30.6 L RDW 17.7 H Plt Count 258 MPV 9.1 Immature Gran % 0.9 Neutrophils % 55.7 Lymphocytes % 22.2 Monocytes % 12.0 Eosinophils % 7.9 Basophils % 1.3 Nucleated RBC % 0.0 Absolute Neutrophils 3.11 Absolute Lymphocytes 1.24 Absolute Monocytes 0.67 Absolute Eosinophils 0.44 Absolute Basophils 0.07 RBC Morphology See Below Anisocytosis 1+ Sodium 140 Potassium 4.1 Chloride 105 Carbon Dioxide 24.6 Anion Gap 10.4 BUN 35 H Creatinine 2.2 H Est GFR (CKD-EPI 2020) 29.91 Glucose 108 H Calcium 8.9 Preliminary micro results at discharge 05/12/25 20:16 Urine - Reflex from Ua Urine Culture - Preliminary Gram positive erica, mixed PFSH All Active Problems Discharge planning issues (Acute) On deep vein thrombosis (DVT) prophylaxis (Acute) Altered mental status (Acute) CAD (coronary artery disease) (Chronic) Complete heart block (Acute) DX at [facility] Junctional escape beats (Acute) DX at [facility] Pacemaker (Acute) Placed 04/20/2025 at [facility] by Deidra Pereira MD Odynophagia (Acute) Acute on chronic kidney failure (Acute) Community acquired bacterial pneumonia (Acute) Aspiration pneumonia (Acute) Alcohol intoxication (Acute) ACP (advance care planning) (Acute) Seasonal allergies (Acute) Atherosclerosis of abdominal aorta (Acute) Iliac artery stenosis, bilateral (Acute) Coronary artery calcification seen on CAT scan (Acute) Hiatal hernia (Chronic) Delirium due to multiple etiologies (Acute) Anemia, chronic disease (Acute) CKD (chronic kidney disease) stage 3, GFR 30-59 ml/min (Chronic) Falls frequently (Acute) Blunt head trauma (Acute) Blunt trauma of multiple sites of trunk (Acute) Fall (Acute) Impaired gait and mobility (Acute ~03/2023) Hyperlipidemia (Chronic) Tobacco abuse disorder (Chronic) Cut down 1/2PPD Personal history of noncompliance with medical treatment and regimen (Chronic) Alcoholic liver disease (Chronic) Anemia (Chronic ~02/2022) S/P GI bleed CHF (congestive heart failure) (Chronic ~02/2023) ECHO 02/2022 LVEF 45-50% Depression (Chronic) Plans on getting connected to social work Tineo's esophagus (Chronic ~04/2019) ETOH; Upper endoscopy 03/2019 (see path report--no tineo's?, but 08/15/2019 surg note says +tineo's) Weakness (Acute) LE weakness; Home PT Urinary retention (Chronic) Dr. Ramos COPD (chronic obstructive pulmonary disease) (Chronic) Atrial fibrillation (Chronic) Paroxysmal per hospital records; not anticoagulated secondary to recurrent GI bleeds from chronic EtOH use Medical History Impaired instrumental activities of daily living Palliative care patient Lack of housing Adult failure to thrive Iron deficiency anemia due to chronic blood loss Hypomagnesemia Alcohol use disorder Acute upper gastrointestinal bleeding (~02/2022) Gastric ulcer Troponin level elevated Gout Colchicine prevention Sleeping difficulty Melatonin RX Insomnia Radicular pain of right lower extremity GI bleed Tineo's esophagus Right knee pain UTI (urinary tract infection) Hematemesis Depression Renal insufficiency Smoking hx Surgical History H/O esophagogastroduodenoscopy (~05/2019) Repeat on 10/26/20 [facility] [place] severe reflux esophagitis w/ non-bleeding esophageal ulcer. 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
--- NOTE | 2025-05-14 13:08 | PT.INIE ---
PT Notes Visit Reasons: [facility] Inpatient Initial Evaluation Date: 05/14/25 Referring Doctor: Tracie Gusman NP PT Orders: PT CONSULT: Safety assessment Precautions: Fall risk, standard. Pacemaker Patient Profile/Admitting Diagnosis: Patient is 79-year-old male who presented with altered mental status from his long-term care facility the [facility] approximately 9 days status post hospitalization at [facility]. Patient underwent permanent pacemaker placement at [facility] after cardiac arrest at the [facility] in March. Patient admitted to MedSurg unit for ongoing monitoring and medical management. Patient treated with IV fluids. PMHX: Altered mental status (Acute) CAD (coronary artery disease) (Chronic) Complete heart block (Acute) [facility] escape beats (Acute) [facility] Placed 04/20/2025 at [facility] by Deidra Pereira MDOdynophagia (Acute) Acute on chronic kidney failure (Acute) Community acquired bacterial pneumonia (Acute) Aspiration pneumonia (Acute) Alcohol intoxication (Acute) ACP (advance care planning) (Acute) Seasonal allergies (Acute) Atherosclerosis of abdominal aorta (Acute) Iliac artery stenosis, bilateral (Acute) Coronary artery calcification seen on CAT scan (Acute) Hiatal hernia (Chronic) Delirium due to multiple etiologies (Acute) Anemia, chronic disease (Acute) CKD (chronic kidney disease) stage 3, GFR 30-59 ml/min (Chronic) Falls frequently (Acute) Blunt head trauma (Acute) Blunt trauma of multiple sites of trunk (Acute) Fall (Acute) Impaired gait and mobility (Acute ~03/2023) Hyperlipidemia (Chronic) Tobacco abuse disorder (Chronic) Cut down 1/2PPDPersonal history of noncompliance with medical treatment and regimen (Chronic) Alcoholic liver disease (Chronic) Anemia (Chronic ~02/2022) S/P GI bleedCHF (congestive heart failure) (Chronic ~02/2023) ECHO 02/2022 LVEF 45-50%Depression (Chronic) Plans on getting connected to social workBarrett's esophagus (Chronic ~04/2019) ETOH; Upper endoscopy 03/2019 (see path report--no tineo's?, but 08/15/2019 surg note says +tineo's)Weakness (Acute) LE weakness; Home PTUrinary retention (Chronic) Dr. Epps (chronic obstructive pulmonary disease) (Chronic) Atrial fibrillation (Chronic) Paroxysmal per hospital records; not anticoagulated secondary to recurrent GI bleeds from chronic EtOH use Medical History Lack of housing Adult failure to thrive Iron deficiency anemia due to chronic blood loss Hypomagnesemia Alcohol use disorder Acute upper gastrointestinal bleeding (~02/2022) Gastric ulcer Troponin level elevated Gout Colchicine preventionSleeping difficulty Melatonin RXInsomnia Radicular pain of right lower extremity GI bleed Tineo's esophagus Right knee pain UTI (urinary tract infection) Hematemesis Depression Renal insufficiency Smoking hx Surgical History H/O esophagogastroduodenoscopy (~05/2019) Repeat on 10/26/20 [facility] [place] severe reflux esophagitis w/ non-bleeding esophageal ulcer. Multiplle inflammatory appearing nodules at GEJ Social History/Home Situation: Resides at [facility] ambulates with FWW and assistance Equipment Owned/DME: Wheelchair and FWW at SNF Subjective: Patient states he will do it just to show everyone he can Objective: [] General Observation: Presented supine in bed with SLUBBER OPERATOR at bedside Mental Status: Alert oriented to person intermittently or oriented to place, agitated agreeable to participate Pain: All over ROM: [] BUE: Grossly within normal limits BLE within functional limits except dorsiflexion to neutral Strength: [] Patient not agreeable to formal testing however demonstrated ability to move BUE against gravity. Impaired motor control and coordination BLE greater than BUE with ataxic movements noted. Impaired fluidity of motion Sensation: Intact Bed Mobility/Transfers: [] Supine to sit supervision with increased time Sit to stand contact-guard assist cues to push up Stand to sit contact-guard assist cues to reach back Bed to chair contact-guard assist with FWW Gait: Ambulated with FWW contact-guard assist ataxic gait pattern 25 feet Balance: [] Static Sitting: Good Dynamic Sitting: Fair Static Standing: Fair Dynamic Standing: Poor plus Special Tests: [] Mobility Limitations Standardized Measure [] [facility] 6 clicks Basic Mobility Inpatient Short Form: [] Raw Score: [] CMS Score: [] Informed Consent/Education: Patient instructed in purpose of PT consult. Packet containing [] exercise protocol has been given to patient. Education and training on initial set of exercises that can be done at home have been completed with patient. Assessment: Patient is a 79-year-old male who presents with clinical signs and symptoms consistent with current/admitting diagnoses that have resulted to mobility limitations, gait instability, generalized weakness, and impairment of motor control as demonstrated by the following impairment level findings: 1. Decreased strength/ motor coordination BUE/BLE major muscle groups 2. Impaired standing balance 3. Impaired functional activity tolerance 4. Ataxic gait pattern 5. Cognitive impairment Impairments are contributing to the following functional limitations: 1. Inability to safely ambulate without assistive device 2. Increase completion time for mobility ADL performance 3. Increased fall risk 4. Decline in transfer skills Patient is assessed as a moderate complexity based on the following: History: 79-year-old male with impairment level findings, functional limitations, and past medical history as indicated above Examination: Demonstrable impairment in strength, balance, and mobility level with underlying impairments and functional limitations as documented above Presentation: Evolving Decision Making: Moderate Goals: N/A. PT evaluation and 1-2 treatment sessions only for functional mobility training using recommended AD and for HEP instruction. Plan of Care/Treatment Plan: N/A. PT evaluation and 1-2 treatment session only for functional mobility training using recommended AD and for HEP instruction. DISCHARGE RECOMMENDATIONS: Return to SNF with PT services TREATMENT CODE/TIME: 97025/ [id number] Thank you for the opportunity to participate in the care of this patient. Please sign an return this page within 30 days if you agree with the above POC. Thank you! Physician Signature Date [facility]
== END 2025-05-14 13:26 | disposition skilled nursing facility (03) ==
LOC: ER 21:05 → MS 22:12
PROVIDERS: Admitting Provider Family Medicine; Emergency Provider Nurse Practitioner Family; PCP Nurse Practitioner Adult Health; Responsible Provider Nurse Practitioner Acute Care; Visit Provider Family Medicine
DX: N17.9 Acute kidney failure, unspecified (principal); R41.82 Altered mental status, unspecified; I50.30 Unspecified diastolic (congestive) heart failure; E86.0 Dehydration; Z95.0 Presence of cardiac pacemaker; I48.0 Paroxysmal atrial fibrillation; J44.9 Chronic obstructive pulmonary disease, unspecified; K70.9 Alcoholic liver disease, unspecified; K22.70 Barrett's esophagus without dysplasia; F10.90 Alcohol use, unspecified, uncomplicated; E11.22 Type 2 diabetes mellitus with diabetic chronic kidney disease; I44.2 Atrioventricular block, complete; I70.0 Atherosclerosis of aorta; N18.30 Chronic kidney disease, stage 3 unspecified; R29.6 Repeated falls; E78.5 Hyperlipidemia, unspecified; Z74.09 Other reduced mobility; F32.A Depression, unspecified; R33.9 Retention of urine, unspecified; R53.1 Weakness; D50.0 Iron deficiency anemia secondary to blood loss (chronic); F17.210 Nicotine dependence, cigarettes, uncomplicated; Z66 Do not resuscitate; I25.2 Old myocardial infarction; Z79.899 Other long term (current) drug therapy
CPT/HCPCS: 00123; 36415; 80048; 80053; 85027; 93005; 94640; 96360; 96361; 96365; 96366; 96367; 97162; 99285; 70450; 71045; 72125; 74176; 81003; 81015; 82140; 83735; 84443; 85025; 87086; 93010; 94664; 99223; 99233; 99239; G0378; J3411; Q0138

== ENCOUNTER 2025-05-17 18:11 | Outpatient (REF) | payer MEDICARE, MEDICAID, SELFPAY ==
[2025-05-17 18:11] LABS: Abs Immature Grans 0.09 10^3/uL (0.0-0.06); HCT 34.4 % (40.0-50.0); HGB 10.0 g/dL (13.5-17.5); Immature Grans % 1.5 %; MCH 24.8 pg (27.0-33.0); MCHC 29.1 % (32.0-36.0); MCV 85 fL (80-95); MPV 9.8 fL (8.0-11.0); Platelet Count 297 10^3/uL (130-400); RBC 4.04 10^6/uL (4.36-5.78); RDW 17.9 % (11.8-14.1); RDW-SD 55.6 fL; WBC 5.94 10^3/uL (4.4-10.8)
[2025-05-17 18:42] LABS: ALT 22 U/L (16-63); AST 19 U/L (15-37); Albumin 3.2 g/dL (3.4-5.0); Alkaline Phosphatase 88 U/L (46-116); Anion Gap 8.2 mmol/L (3-11); BUN 33 mg/dL (7-18); Bilirubin, Total 0.3 mg/dL (0.2-1.0); CO2 27.8 mmol/L (21.0-32.0); Calcium 8.7 mg/dL (8.5-10.1); Chloride 107 mmol/L (98-107); Estimated GFR 38.05 (mL/min/1.73m2); Glucose 85 mg/dL (74-106); NT-proBNP 5629 pg/mL (<300); Potassium 4.8 mmol/L (3.5-5.1); Sodium 143 mmol/L (136-145); Total Protein 6.2 g/dL (6.4-8.2)
[2025-05-22 00:19] LABS: Thiamine (Vitamin B1), WB 306 nmol/L (70-180)
== END 2025-05-17 18:12 | disposition home or self-care (01) ==
LOC: LBN 18:11
PROVIDERS: PCP Nurse Practitioner Adult Health; Visit Provider Nurse Practitioner Gerontology
DX: I50.22 Chronic systolic (congestive) heart failure (principal); D63.1 Anemia in chronic kidney disease; E87.8 Other disorders of electrolyte and fluid balance, not elsewhere classified; E51.9 Thiamine deficiency, unspecified
CPT/HCPCS: 80053; 83880; 84425; 85025

== ENCOUNTER 2025-05-25 11:55 | Outpatient (REF) | payer MEDICARE, MEDICAID, SELFPAY ==
[2025-05-25 12:16] LABS: Abs Immature Grans 0.07 10^3/uL (0.0-0.06); HCT 36.0 % (40.0-50.0); HGB 11.1 g/dL (13.5-17.5); Immature Grans % 1.4 %; MCH 26.2 pg (27.0-33.0); MCHC 30.8 % (32.0-36.0); MCV 85 fL (80-95); MPV 9.4 fL (8.0-11.0); Platelet Count 222 10^3/uL (130-400); RBC 4.24 10^6/uL (4.36-5.78); RDW 19.3 % (11.8-14.1); RDW-SD 59.7 fL; WBC 5.04 10^3/uL (4.4-10.8)
[2025-05-25 12:38] LABS: ALT 28 U/L (16-63); AST 25 U/L (15-37); Albumin 3.1 g/dL (3.4-5.0); Alkaline Phosphatase 71 U/L (46-116); Anion Gap 10.2 mmol/L (3-11); BUN 38 mg/dL (7-18); Bilirubin, Total 0.3 mg/dL (0.2-1.0); CO2 25.8 mmol/L (21.0-32.0); Calcium 8.7 mg/dL (8.5-10.1); Chloride 105 mmol/L (98-107); Estimated GFR 43.56 (mL/min/1.73m2); Glucose 109 mg/dL (74-106); NT-proBNP 2469 pg/mL (<300); Potassium 4.2 mmol/L (3.5-5.1); Sodium 141 mmol/L (136-145); Total Protein 6.0 g/dL (6.4-8.2)
[2025-05-25 16:37] LABS: Bilirubin, Direct 0.1 mg/dL (0.0-0.2)
== END 2025-05-25 11:56 | disposition home or self-care (01) ==
LOC: LBN 11:55
PROVIDERS: PCP Nurse Practitioner Adult Health; Visit Provider Nurse Practitioner Gerontology
DX: D63.1 Anemia in chronic kidney disease (principal); I50.1 Left ventricular failure, unspecified; E87.8 Other disorders of electrolyte and fluid balance, not elsewhere classified; E80.7 Disorder of bilirubin metabolism, unspecified
CPT/HCPCS: 80053; 82248; 83880; 85025

== ENCOUNTER 2025-06-21 18:13 | Outpatient (REF) | payer MEDICARE, MEDICAID, SELFPAY ==
[2025-06-21 19:20] LABS: Glucose Negative (Negative)
[2025-06-21 19:23] LABS: Abs Immature Grans 0.06 10^3/uL (0.0-0.06); HCT 38.0 % (40.0-50.0); HGB 12.2 g/dL (13.5-17.5); Immature Grans % 1.0 %; MCH 26.8 pg (27.0-33.0); MCHC 32.1 % (32.0-36.0); MCV 83 fL (80-95); MPV 10.4 fL (8.0-11.0); Platelet Count 222 10^3/uL (130-400); RBC 4.56 10^6/uL (4.36-5.78); RDW 19.3 % (11.8-14.1); RDW-SD 59.1 fL; WBC 6.29 10^3/uL (4.4-10.8)
[2025-06-21 19:28] LABS: WBC >50 HPF (0-5)
[2025-06-21 19:34] LABS: ALT 27 U/L (16-63); AST 18 U/L (15-37); Albumin 3.6 g/dL (3.4-5.0); Alkaline Phosphatase 75 U/L (46-116); Anion Gap 11.7 mmol/L (3-11); BUN 53 mg/dL (7-18); Bilirubin, Total 0.3 mg/dL (0.2-1.0); CO2 24.3 mmol/L (21.0-32.0); Calcium 8.9 mg/dL (8.5-10.1); Chloride 104 mmol/L (98-107); Estimated GFR 33.32 (mL/min/1.73m2); Glucose 114 mg/dL (74-106); Magnesium 1.7 mg/dL (1.8-2.4); Potassium 4.1 mmol/L (3.5-5.1); Sodium 140 mmol/L (136-145); Total Protein 6.1 g/dL (6.4-8.2)
== END 2025-06-21 18:14 | disposition home or self-care (01) ==
LOC: LBN 18:13
PROVIDERS: PCP Nurse Practitioner Adult Health; Visit Provider Nurse Practitioner Gerontology
DX: E87.8 Other disorders of electrolyte and fluid balance, not elsewhere classified (principal); N39.0 Urinary tract infection, site not specified
CPT/HCPCS: 80053; 87077; 81003; 81015; 83735; 85025; 87086; 87186

== ENCOUNTER 2025-08-02 19:07 | Outpatient (REF) | payer MEDICARE, MEDICAID, SELFPAY ==
[2025-08-02 19:05] LABS: Abs Immature Grans 0.05 10^3/uL (0.0-0.06); HCT 45.4 % (40.0-50.0); HGB 14.1 g/dL (13.5-17.5); Immature Grans % 0.8 %; MCH 26.3 pg (27.0-33.0); MCHC 31.1 % (32.0-36.0); MCV 85 fL (80-95); MPV 9.5 fL (8.0-11.0); Platelet Count 194 10^3/uL (130-400); RBC 5.36 10^6/uL (4.36-5.78); RDW 18.7 % (11.8-14.1); RDW-SD 57.8 fL; WBC 6.54 10^3/uL (4.4-10.8)
[2025-08-02 19:21] LABS: ALT 31 U/L (16-63); AST 22 U/L (15-37); Albumin 4.2 g/dL (3.4-5.0); Alkaline Phosphatase 80 U/L (46-116); Anion Gap 12.0 mmol/L (3-11); BUN 29 mg/dL (7-18); Bilirubin, Total 0.4 mg/dL (0.2-1.0); CO2 27.0 mmol/L (21.0-32.0); Calcium 9.3 mg/dL (8.5-10.1); Chloride 103 mmol/L (98-107); Glucose 92 mg/dL (74-106); Magnesium 1.9 mg/dL (1.8-2.4); Potassium 5.1 mmol/L (3.5-5.1); Sodium 142 mmol/L (136-145); Total Protein 7.2 g/dL (6.4-8.2)
== END 2025-08-02 19:08 | disposition home or self-care (01) ==
LOC: LBN 19:07
PROVIDERS: PCP Legal Medicine; Visit Provider Nurse Practitioner Gerontology
DX: E87.8 Other disorders of electrolyte and fluid balance, not elsewhere classified (principal); D63.1 Anemia in chronic kidney disease; E83.42 Hypomagnesemia
CPT/HCPCS: 80053; 83735; 85025

== ENCOUNTER 2025-09-16 13:51 | Outpatient (REF) | payer MEDICARE, MEDICAID, SELFPAY ==
[2025-09-16 14:08] LABS: HCT 38.5 % (40.0-50.0); HGB 12.4 g/dL (13.5-17.5); MCH 27.7 pg (27.0-33.0); MCHC 32.2 % (32.0-36.0); MCV 86 fL (80-95); MPV 10.5 fL (8.0-11.0); Platelet Count 175 10^3/uL (130-400); RBC 4.48 10^6/uL (4.36-5.78); RDW 16.1 % (11.8-14.1); RDW-SD 50.2 fL; WBC 7.79 10^3/uL (4.4-10.8)
[2025-09-16 14:09] LABS: Immature Grans % 0.8 %
[2025-09-16 14:10] LABS: Abs Immature Grans 0.00 10^3/uL (0.0-0.06)
[2025-09-16 16:53] LABS: Anion Gap 14.4 mmol/L (3-11); BUN 48 mg/dL (9-23); CO2 22.6 mmol/L (20.0-31.0); Calcium 8.7 mg/dL (8.3-10.6); Chloride 102 mmol/L (98-107); Glucose 107 mg/dL (74-106); Potassium 4.5 mmol/L (3.5-5.1); Sodium 139 mmol/L (136-145); Total Protein 6.4 g/dL (5.7-8.2)
[2025-09-16 16:54] LABS: ALT 17 U/L (10-49); AST 25 U/L (<34); Albumin 4.2 g/dL (3.2-5.0); Alkaline Phosphatase 58 U/L (46-116); Bilirubin, Total 0.7 mg/dL (0.2-1.2)
== END 2025-09-16 13:52 | disposition home or self-care (01) ==
LOC: LBN 13:51
PROVIDERS: PCP Legal Medicine; Visit Provider Nurse Practitioner Gerontology
DX: D63.1 Anemia in chronic kidney disease (principal); E87.8 Other disorders of electrolyte and fluid balance, not elsewhere classified
CPT/HCPCS: 80053; 83880; 85025

== ENCOUNTER 2025-09-20 13:52 | Outpatient (REF) | payer MEDICARE, MEDICAID, SELFPAY ==
[2025-09-20 14:21] LABS: Abs Immature Grans 0.09 10^3/uL (0.0-0.06); HCT 39.6 % (40.0-50.0); HGB 12.6 g/dL (13.5-17.5); Immature Grans % 2.0 %; MCH 27.1 pg (27.0-33.0); MCHC 31.8 % (32.0-36.0); MCV 85 fL (80-95); MPV 10.5 fL (8.0-11.0); Platelet Count 180 10^3/uL (130-400); RBC 4.65 10^6/uL (4.36-5.78); RDW 15.6 % (11.8-14.1); RDW-SD 48.2 fL; WBC 4.57 10^3/uL (4.4-10.8)
[2025-09-20 14:41] LABS: Magnesium 1.7 mg/dL (1.6-2.6)
[2025-09-20 14:49] LABS: ALT 17 U/L (10-49); AST 24 U/L (<34); Albumin 4.1 g/dL (3.2-5.0); Alkaline Phosphatase 60 U/L (46-116); Anion Gap 15 mmol/L (3-11); BUN 57 mg/dL (9-23); Bilirubin, Total 0.5 mg/dL (0.2-1.2); CO2 21.0 mmol/L (20.0-31.0); Calcium 8.9 mg/dL (8.3-10.6); Chloride 106 mmol/L (98-107); Glucose 109 mg/dL (74-106); Potassium 4.2 mmol/L (3.5-5.1); Sodium 142 mmol/L (136-145); Total Protein 6.2 g/dL (5.7-8.2)
== END 2025-09-20 13:53 | disposition home or self-care (01) ==
LOC: LBN 13:52
PROVIDERS: PCP Legal Medicine; Visit Provider Nurse Practitioner Gerontology
DX: D63.1 Anemia in chronic kidney disease (principal); E87.8 Other disorders of electrolyte and fluid balance, not elsewhere classified
CPT/HCPCS: 80053; 83735; 83880; 85025